=== PATIENT | male | born 1990 | race Caucasian/White ===

== ENCOUNTER 2024-01-05 07:59 | Emergency (ER) | payer OTHER, SELFPAY ==
[2024-01-05 08:02] VITALS: BP 200/120
[2024-01-05 08:19] VITALS: BMI 24.9
--- NOTE | 2024-01-05 08:19 | ED.GENMED ---
History of Present Illness
General
Chief Complaint: Abdominal Symptoms
Source: patient and records
Time Seen by Provider: 01/05/24 08:10
Travel History
Have you had any contact with someone who has COVID-19?: No
Do you have any symptoms of coronavirus? Fever > 100 degrees, chills, cough, shortness of breath, sore throat, loss of taste or smell, muscle aches, or headache?: No
History of Present Illness
History of Present Illness:
33-year-old male with past medical history of poorly controlled hypertension, diabetes, end-stage renal disease (dialysis Friday, Friday, Friday) presenting to the emergency department for evaluation after developing a gradual onset of abdominal
pain/discomfort last night, awoke this morning with worsening sharp pain within the left lower quadrant prompting him to come to the ER for further evaluation. Patient is denying a similar history of symptoms to me in the past. He endorses nausea
and vomiting but without any bowel changes. Patient notes that he does still make small amounts of urine and notes no change in urinary habits today. Patient did take a Tylenol and Motrin earlier today but without any relief of symptoms. No known
sick contacts, recent travel or recent antibiotics. Social history is noted for cigarette use. Of note, patient received a full dialysis session this past Friday but did not get his dialysis yet today.
Past History
Past History
ED Past Medical History: CHF, HTN, IDDM, Renal failure (Dialysis M-W-F) and Other (ESRD, PE, Contipation, ESRD, TR, pulmonary hypertension, congestive heart failure, etc.)
ED Past Surgical History: Appendectomy and Other (Left AV fistula, biliary drain)
Patient has exhibited threatening behavior?: No
PSI?: No
Social History
Tobacco: Smoker
Alcohol: None
Drug: None
Personal: Single
Living: with family
Employment: Other
Family History
Family History: Other
Review of Systems
Review of Systems
All Other Systems: ROS reviewed and negative except as documented in HPI and ROS
Phy Exam
Physical Exam
Physical Exam:
GENERAL: Alert , in no apparent distress But does appear uncomfortable
EYE: clear conjunctiva b/l
HEAD: NCAT
ENT: o/p clr, mmm.
CARDIAC: Borderline tachycardic rate and rhythm, murmur noted on the left sternal border
LUNGS: Clear breath sounds bilaterally, no acute respiratory distress, no wheezes/rales/rhonchi
ABDOMEN: Soft, diffusely tender and grimacing, states pain worse in the left lower quadrant, no r/g, no cvat
NEUROLOGICAL: Alert and oriented
SKIN: Warm and dry, skin intact.
MUSCULOSKELETAL: Bilateral ankle edema is reportedly chronic, well perfused. Left upper extremity dialysis fistula noted
PSYCH: Normal and appropriate interaction.
Scores
Heart Failure Risk
Heart Failure Risk Score: Not Applicable
Heart Score for Chest Pain Patients
STEMI patient?: Not applicable
Withdrawal Assessment of Alcohol
Withdrawal Assessment Completed?: Not applicable
Course
Orders/Labs/Results
Orders:
Orders
01/05/24 08:17
CT Abd/pel (oral only)-DH Only Urgent
Comment:
Reason For Exam: LLQ abd pain, hx of ESRD on dialysis
Urinalysis Reflex To Culture Urgent
Date Specimen was Collected: 01/05/24
Time Specimen was Collected: 08:22
HYDROmorphone [Dilaudid] 0.5 mg IV NOW STA
Iohexol [Omnipaque] See Protocol PO NOW STA
Ondansetron Injectable [Zofran] 4 mg IV NOW STA
01/05/24 08:38
HYDROmorphone [Dilaudid] 0.5 mg .ROUTE .STK-MED ONE
01/05/24 08:43
Alcohol Urgent
Basic Metabolic Panel Urgent
Complete Blood Count/With Diff Urgent
Lactic Acid Q4H
Comment: CANCEL 2nd LACTIC ACID IF 1st LACTIC ACID IS LESS THAN 2
Lipase Urgent
01/05/24 08:51
Add On- LAB Urgent
Tests Added?: alcohol level
01/05/24 10:05
Djkzn-Pigk-Exiwgww Urgent
Potassium Urgent
01/05/24 11:35
HYDROmorphone [Dilaudid] 0.5 mg IV NOW STA
Abnormal Lab Results
01/05/24 01/05/24
08:43 10:05
RBC 2.75 L 10^6/uL
(4.70-6.10)
Hgb 9.1 L g/dL
(13.0-18.0)
Hct 26.7 L %
(39.0-52.0)
MCV 97.1 H fL
(80.0-94.0)
MCH 33.1 H pg
(27.0-31.0)
RDW 16.9 H %
(11.5-14.5)
Abs Immat Gran (auto) 0.1 H 10^3/uL
(0-0.05)
Absolute Lymphs (auto) 1.0 L 10^3/uL
(1.2-3.4)
Immature Gran % 1.3 H %
(0-0.5)
Lymphocytes % 17.4 L %
(20.5-51.1)
Sodium 133 L mmol/L
(135-145)
BUN 55 H mg/dl
(9-20)
Creatinine 6.7 H* mg/dL
(0.7-1.3)
Glucose 320 H mg/dl
(70-99)
Direct Bilirubin 0.6 H mg/dl
(0.0-0.4)
AST 66 H U/L
(17-59)
01/05/24 08:43
03/04/24 10:05
Vital Signs
Initial and Last Documented VS:
Initial Vital Signs
Temp Pulse Resp BP Pulse Ox
99.5 F 104 16 200/120 91
01/05/24 08:02 01/05/24 08:02 01/05/24 08:02 01/05/24 08:02 01/05/24 08:02
Last Documented Vital Signs
Temp Pulse Resp BP Pulse Ox
99.5 F 104 16 201/109 97
01/05/24 08:02 01/05/24 08:02 01/05/24 08:02 01/05/24 11:26 01/05/24 10:50
MDM/Problems Addressed
Differential Diagnosis Includes:
Gastroenteritis, colitis, renal/ureteral colic, given age less concern for diverticulitis/diverticulosis, UTI
MDM/Problems Addressed:
33-year-old male presenting emergency department for evaluation of abdominal pain, nausea and vomiting that started yesterday evening, worse this morning prompting ER visit. I reviewed patient's records and he was seen in this emergency department
multiple times in the summer 2022 for similar related complaints. It was noted at that time that patient did have diffuse enteritis seen on CT images however patient's symptoms were thought to be related to pain medication withdrawal/side effects.
At this time we will check labs. I would like to check CT imaging given the focality of patient's reported symptoms and physical exam findings. Will treat with 1 dose of Dilaudid and Zofran. Low threshold to consider pain seeking behavior given
this has been well-documented on previous charts reassessment following labs.
Chronic conditions affecting care: DM, HTN and Kidney disease
Acute Exacerbation and/or Progression of Chronic Illness: DM, HTN and Kidney disease
*Radiology
Radiology exam reviewed: radiology read reviewed
*Pulse Oximetry
Patient hypoxic: no
*Critical Care Note
Total Time (30-74mins, 75-104mins- exclusive of procedures): Not Applicable
Data Reviewed
Review of Other/Old Records Reveals: Labs, Records and Radiology Studies
Source: patient and records
Comment
Comment:
11:25 a.m.: Patient noting increased pain again. Additional half milligram Dilaudid ordered. Awaiting CT scan result
11:50 AM: Patient's CT scan is overall unchanged from previous scans done summertime in 2022. He was able to speak with his dialysis team who did offer dialysis session today however patient preferred to go tomorrow morning. I do think this is
reasonable given patient's potassium is within normal limits. Continued supportive care at home. Deferring antibiotics as patient has no fever here, no leukocytosis and an otherwise unchanged CT from multiple previous scans done. Aware of return
precautions but otherwise stable for discharge
ED Attending Note
-
Portions of this chart may have been created with voice recognition software.� Occasional wrong word or��sound alike� substitutions may have occurred due to the inherent limitations of voice recognition software.
Discharge Plan
Departure
Patient Disposition: Home (Routine Discharge)
Date of Disposition: 01/05/24
Time of Disposition: 11:47
Patient with high blood pressure during this ER visit?: Yes
Discharge Problem:
Abdominal pain, Hypertension, CKD (chronic kidney disease)
Instructions: Abdominal Pain
Prescriptions:
No Action
furosemide 40 MG tablet
40 mg PO QPM
carvedilol [Coreg] 25 MG tablet
25 mg PO BID
amlodipine 10 MG tablet
10 mg PO DAILY
calcium carbonate [Tums] 200 mg calcium (500 mg) Tablet,Chewable
200 mg PO TIDPRN PRN (Reason: gerd)
metoclopramide HCl [Reglan] 10 mg Tablet
10 mg PO TIDPRN PRN (Reason: nausea)
hydralazine 100 mg Tablet
100 mg PO Q8H
oxcarbazepine 150 mg tablet
150 mg PO HS
trazodone 50 mg Tablet
25 mg PO HS
acetaminophen [Tylenol Extra Strength] 500 mg Tablet
1,000 mg PO BIDPRN PRN (Reason: mild pain)
insulin aspart U-100 [Novolog U-100 Insulin aspart] 100 unit/mL solution
70 unit SC .VIA PUMP
Patient Comments:
01/05/2024, pt. has insulin pump and states to use roughly 70 units a day and replaces his insulin Q72H. Per pt., he replaced his insulin 2 days ago.
Referrals:
Casper Arroyo MD [Family Provider] -
Interventions
Interventions:
*Risk Screen - Suicide Last Done: 01/05/24 08:19
*General Assessment Last Done: 01/05/24 08:19
*Neglect/Abuse Screening Last Done: 01/05/24 08:19
ED- Fall Risk Assessment Last Done: 01/05/24 08:19
*ED COVID-19 Vaccine History Last Done: 01/05/24 08:06
*Nursing Disposition Last Done: 01/05/24 12:07
ZY-Evkwpp-Uieqndluuh Assessment Last Done: 01/05/24 08:19
[2024-01-05] MEDS: ZOFRAN 4 MG IV (08:44)
[2024-01-05] MEDS: OMNIPAQUE 50 ML PO (08:44)
[2024-01-05] MEDS: DILAUDID 0.5 MG IV ×2 (08:45→11:46)
[2024-01-05 08:49] VITALS: BP 197/107
[2024-01-05 09:00] VITALS: BP 188/113
[2024-01-05 09:04] LABS: % Basophils 0.7 % (0-2); % Eosinophils 0.7 % (0-6); % Immature Granulocytes 1.3 % (0-0.5); % Lymphocytes 17.4 % (20.5-51.1); % Monocytes 8.6 % (1.7-9.3); % Neutrophils 71.3 % (42.2-75.2); Absolute Immature Granulocytes 0.1 10^3/uL (0-0.05); Absolute Monocytes 0.5 10^3/uL (0.1-0.6); Absolute Neutrophils 3.9 10^3/uL (1.4-6.5); Hematocrit 26.7 % (39.0-52.0); Hemoglobin 9.1 g/dL (13.0-18.0); Mean Corp Hgb Conc. 34.1 g/dL (33.0-37.0); Mean Corpuscular Hgb 33.1 pg (27.0-31.0); Mean Corpuscular Volume 97.1 fL (80.0-94.0); Mean Platelet Volume 9.5 fL (7.4-10.4); Nucleated Red Blood Cells % 0 % (-); Platelet Count 254 10^3/uL (130-400); Red Blood Cell Count 2.75 10^6/uL (4.70-6.10); Red Cell Dist. Width 16.9 % (11.5-14.5); White Blood Cell Count 5.5 10^3/uL (4.8-10.8)
[2024-01-05 09:18] LABS: Lactic Acid 1.1 mmol/L (0.7-2.0)
[2024-01-05 09:26] LABS: Blood Urea Nitrogen 55 mg/dl (9-20); Calcium 8.6 mg/dl (8.4-10.2); Carbon Dioxide 22 mmol/L (22-30); Chloride 101 mmol/L (98-107); Estimated Creatinine Clearance 15 ml/min; Glucose 320 mg/dl (70-99); Lipase 60 U/L (23-300); Sodium 133 mmol/L (135-145); eGFR 10.46
[2024-01-05 10:00] VITALS: BP 192/109
[2024-01-05 10:25] LABS: ALT (SGPT) 36 U/L (0-50); AST (SGOT) 66 U/L (17-59); Albumin 3.8 g/dl (3.5-5.0); Alkaline Phosphatase 82 U/L (38-126); Direct Bilirubin 0.6 mg/dl (0.0-0.4); Potassium 4.5 mmol/L (3.5-5.1); Total Protein 6.3 g/dl (6.3-8.2)
[2024-01-05 11:26] VITALS: BP 201/109
== END 2024-01-05 12:07 | disposition home or self-care (01) ==
LOC: EMR 07:59
PROVIDERS: Physician Assistant Medical; EMERGENCY PHYSICIAN Student in an Organized Health Care Education/Training Program; FAMILY PHYSICIAN Internal Medicine
DX: R10.9 Unspecified abdominal pain (principal); I13.2 Hypertensive heart and chronic kidney disease with heart failure and with stage 5 chronic kidney disease, or end stage renal disease; E11.22 Type 2 diabetes mellitus with diabetic chronic kidney disease; I50.9 Heart failure, unspecified; N18.6 End stage renal disease; F17.210 Nicotine dependence, cigarettes, uncomplicated; Z99.2 Dependence on renal dialysis
CPT/HCPCS: 99284; 96374; 96375; 96376; 74176; 80048; 80076; 82077; 83605; 83690; 84132; 85025

== ENCOUNTER 2024-01-10 04:32 | Inpatient (IN) | payer OTHER, SELFPAY ==
[2024-01-10] VITALS (36 sets, daily range): BP systolic 99–220; BP diastolic 61–104; BMI 24.5
--- NOTE | 2024-01-10 01:36 | ED.GENMED ---
History of Present Illness
General
Chief Complaint: Chest Pain
Time Seen by Provider: 01/10/24 01:36
History of Present Illness
History of Present Illness:
HPI: Patient came in by ambulance due to chest pain. He states that started about 3 hours ago. It is described as sharp. This feels similar to the time that he was here 6 months ago but thinks that this might be worse. He tried Tylenol and
Motrin at home without improvement.
EXAM:
GENERAL: The patient appears chronically ill and somewhat uncomfortable
HEENT: Moist oral mucosa
CARDIOVASCULAR: No murmurs, normal heart rate and rhythm, No significant chest wall tenderness
PULMONARY: No respiratory distress, breath sounds are somewhat diminished on the right base
ABDOMEN: Soft with no peritoneal signs, no tenderness
NEUROLOGIC: Good strength all extremities, no coordination deficits
PSYCHIATRIC: Appropriate mental status, normal insight and judgement
EXTREMITIES: Nontender, no edema, moves all extremities equally
SKIN: Appears somewhat pale
ED COURSE:
1:45 AM: I initially evaluated patient
NUMBER AND COMPLEXITY OF PROBLEMS ADDRESSED AT THE ENCOUNTER
� Chronic conditions affecting care: High blood pressure, CKD on dialysis, diabetes
� Acute Exacerbation and/or Progression of Chronic Illness: This is an acute problem but is had similar episode in the past
� Differential Diagnosis includes: ACS, noncardiac chest pain, pneumonia, pneumothorax, pericarditis
AMOUNT AND/OR COMPLEXITY OF DATA TO BE REVIEWED AND ANALYZED
� I performed an independent evaluation of and my interpretation is:
EKG: Sinus 79, QTc is 483 ms, nonspecific ST abnormality
CT:
X-rays: Chest x-ray shows worsening right pleural effusion
Laboratory Studies: Marked blood sugar elevation at over 700. Bicarb was normal, pH was 7.35 and beta hydroxybutyrate was only slightly elevated
Other:
� Review of other/old records: The patient was seen here for chest pain nearly 6 months ago records indicate that the patient signed out AGAINST MEDICAL ADVICE from [facility] before the ED visit here. The patient was again here a
few days ago. I reviewed the CT report from 5 days ago.
� Clinical information was obtained by an independent historian: EMS
� Prescriptions/Medications Considered but not given:
� Further testing considered but not performed:
RISK OF COMPLICATIONS AND/OR MORBIDITY OR MORTALITY OF PATIENT MANAGEMENT
� Social determinants of health affecting care: Lives at home, on dialysis
� Discussion with other providers: Dr. Salazar for admission at about 3:55 AM
� Escalation of care including admission/observation vs risk of discharge considered: The patient presents with chest discomfort described as stabbing that started about 3 hours ago. He is also found to have an initial blood
sugar over 600. Review of records suggests concerns for drug-seeking behavior in the past and the patient requested narcotic upon initial evaluation stating that the only thing that helps his pain. I did give the patient a one-time dose of
Dilaudid as I am very concerned about the elevated glucose over 600 and better hope of him staying for more of an evaluation. Blood sugar was markedly elevated at over 700 but no clear sign of DKA. He was given insulin by IV but repeat blood sugar
was still reading critical high. The patient declined IV fluids citing concerns for being volume overloaded and would not but dialyze until Friday.
Past History
Past History
ED Past Medical History: CHF, HTN, IDDM, Renal failure (Dialysis M-W-F) and Other (ESRD, PE, Contipation, ESRD, TR, pulmonary hypertension, congestive heart failure, etc.)
ED Past Surgical History: Appendectomy and Other (Left AV fistula, biliary drain)
Patient has exhibited threatening behavior?: No
PSI?: No
Social History
Tobacco: Smoker
Alcohol: None
Drug: None
Personal: Single
Living: with family
Employment: Other
Family History
Family History: Other
Phy Exam
Physical Exam
Physical Exam:
See HPI
Scores
Heart Score for Chest Pain Patients
STEMI patient?: Not applicable
Course
Orders/Labs/Results
Orders:
Orders
01/10/24 01:34
ECG [Electrocardiogram (*1)] Urgent
Reason for Study: Chest Pain
01/10/24 01:35
EKG- Treatment ONCE
01/10/24 01:41
Cardiac Monitoring- Treatment ONCE
IV Insert/Care/Rem.- Treatment PRN
01/10/24 01:48
0.9% Sodium Chloride 500 ml [Nss] 500 ml IV BOLUS
01/10/24 01:56
Acetone [B-Hydroxybutyrate] Urgent
Complete Blood Count/With Diff Urgent
Comprehensive Metabolic Panel Urgent
Troponin I Urgent
Venous Blood Gas Urgent
%Oxygen/Room Air: 97
01/10/24 02:09
HYDROmorphone [Dilaudid] 1 mg IV NOW STA
01/10/24 02:46
Insulin Human Regular [Novolin R] 10 units IV NOW STA
01/10/24 02:48
CR Chest - 2 Views Urgent
Comment:
Reason For Exam: chest pain
01/10/24 04:05
Glucose Urgent
01/10/24 04:18
Admit/Transfer Patient As Directed
Co-Sign Provider:
Level of Care: Inpatient admission
Assign to:: ICU
Physician / Group: Martin
Diagnosis: Hyperglycemia, Hypervolemia / ESRD
Reason for Hospitalization: Hyperglycemia, Hypervolemia / ESRD
Expected length of stay greater than two midnights?: Yes
ELOS- Estimated Length of Stay in days: 3
I certify the patient meets the requirements for IP care: Yes
01/10/24 04:20
Code Status As Directed
Resuscitation Status: Full Code
01/10/24 04:27
Insulin Human Regular [Novolin R] See Protocol IV NOW STA
Pharmacy Request to Place See Dose Instructions PO NOW STA
01/10/24 04:37
Acetaminophen [Tylenol] 650 mg PO Q4HPRN PRN
Morphine Sulfate 2 mg IV Q4HPRN PRN
Reg Insulin 100 Units/100 ml [Novolin R Insulin Infusion] 100 units in 100 ml IV PER PROTOCOL
01/10/24 04:37
Critical Care Glycemic Protocol for IV Regular Insulin As Directed
01/10/24 Breakfast
1800 calorie (15 carb) Diabetic
Fluid Restriction: 1440 mL/day (48 oz)
Diabetic Diet: Potassium, 2 Gram
Sodium, 2 Gram
Abnormal Lab Results
01/10/24 01/10/24 01/10/24
01:35 01:56 03:51
WBC 4.1 L 10^3/uL
(4.8-10.8)
RBC 3.17 L 10^6/uL
(4.70-6.10)
Hgb 10.5 L g/dL
(13.0-18.0)
Hct 31.4 L %
(39.0-52.0)
MCV 99.1 H fL
(80.0-94.0)
MCH 33.1 H pg
(27.0-31.0)
RDW 16.9 H %
(11.5-14.5)
Absolute Lymphs (auto) 0.7 L 10^3/uL
(1.2-3.4)
Lymphocytes % 18.0 L %
(20.5-51.1)
Sodium 130 L mmol/L
(135-145)
Potassium 5.3 H mmol/L
(3.5-5.1)
Chloride 92 L mmol/L
(98-107)
BUN 29 H mg/dl
(9-20)
Creatinine 3.9 H mg/dL
(0.7-1.3)
Glucose 733 H* mg/dl
(70-99)
AST 160 H U/L
(17-59)
ALT 75 H U/L
(0-50)
Alkaline Phosphatase 211 H U/L
(38-126)
B-Hydroxybutyrate 0.95 H mmol/L
(0.02-0.27)
POC Glucose > 600 H* mg/dl > 600 H* mg/dl
(70-99) (70-99)
01/10/24
04:05
WBC
RBC
Hgb
Hct
MCV
MCH
RDW
Absolute Lymphs (auto)
Lymphocytes %
Sodium
Potassium
Chloride
BUN
Creatinine
Glucose 623 H* mg/dl
(70-99)
AST
ALT
Alkaline Phosphatase
B-Hydroxybutyrate
POC Glucose
01/10/24 01:56
01/10/24 04:05
Vital Signs
Initial and Last Documented VS:
Initial Vital Signs
Temp Pulse Resp BP Pulse Ox
97.8 F 79 18 162/95 95
01/10/24 01:36 01/10/24 01:36 01/10/24 01:36 01/10/24 01:36 01/10/24 01:36
Last Documented Vital Signs
Temp Pulse Resp BP Pulse Ox
97.8 F 87 21 220/101 99
01/10/24 01:36 01/10/24 04:17 01/10/24 04:17 01/10/24 04:17 01/10/24 04:17
*Critical Care Note
Total Time (30-74mins, 75-104mins- exclusive of procedures): Not Applicable
ED Attending Note
-
Portions of this chart may have been created with voice recognition software.� Occasional wrong word or��sound alike� substitutions may have occurred due to the inherent limitations of voice recognition software.
Discharge Plan
Departure
Patient Disposition: Admit
Date of Disposition: 01/10/24
Time of Disposition: 03:52
Presentation/result/management discussed w/ accepting MD/DO: Hospitalist
Discharge Problem:
Acute hyperglycemia
Interventions
Interventions:
*Risk Screen - Suicide Last Done: 01/10/24 01:36
*General Assessment Last Done: 01/10/24 02:00
*Neglect/Abuse Screening Last Done: 01/10/24 01:36
ED- Fall Risk Assessment Last Done: 01/10/24 02:00
*ED COVID-19 Vaccine History Last Done: 01/10/24 01:36
ED- Cardiac Assessment Last Done: 01/10/24 02:00
[2024-01-10 01:37] LABS: Glucose - Point of Care > 600 mg/dl (70-99)
[2024-01-10 02:09] LABS: % Basophils 1.2 % (0-2); % Eosinophils 0.5 % (0-6); % Immature Granulocytes 0.5 % (0-0.5); % Monocytes 7.6 % (1.7-9.3); % Neutrophils 72.2 % (42.2-75.2); Absolute Basophils 0.1 10^3/uL (0-0.2); Absolute Lymphocytes 0.7 10^3/uL (1.2-3.4); Absolute Monocytes 0.3 10^3/uL (0.1-0.6); Hematocrit 31.4 % (39.0-52.0); Hemoglobin 10.5 g/dL (13.0-18.0); Mean Corp Hgb Conc. 33.4 g/dL (33.0-37.0); Mean Corpuscular Hgb 33.1 pg (27.0-31.0); Mean Corpuscular Volume 99.1 fL (80.0-94.0); Mean Platelet Volume 9.8 fL (7.4-10.4); Nucleated Red Blood Cells % 0 % (-); Platelet Count 187 10^3/uL (130-400); Red Blood Cell Count 3.17 10^6/uL (4.70-6.10); Red Cell Dist. Width 16.9 % (11.5-14.5); White Blood Cell Count 4.1 10^3/uL (4.8-10.8)
[2024-01-10 02:18] LABS: Venous Blood Gas B.E. 0 mmol/L (-4 to +4); Venous Blood Gas HCO3 25.9 mmol/L (22-27); Venous Blood Gas O2 Sat % 78.7 %; Venous Blood Gas pCO2 47 mmHg (35-48); Venous Blood Gas pH 7.35 (7.32-7.43); Venous Blood Gas pO2 49 mmHg (30-50)
[2024-01-10 02:24] LABS: ALT (SGPT) 75 U/L (0-50); AST (SGOT) 160 U/L (17-59); Albumin 4.3 g/dl (3.5-5.0); Alkaline Phosphatase 211 U/L (38-126); Blood Urea Nitrogen 29 mg/dl (9-20); Calcium 8.5 mg/dl (8.4-10.2); Carbon Dioxide 25 mmol/L (22-30); Chloride 92 mmol/L (98-107); Potassium 5.3 mmol/L (3.5-5.1); Sodium 130 mmol/L (135-145); Total Bilirubin 1.2 mg/dl (0.2-1.3); Total Protein 6.9 g/dl (6.3-8.2); eGFR 20.03
[2024-01-10] MEDS: DILAUDID 1 MG IV (02:29)
[2024-01-10 02:35] LABS: Troponin I 0.021 ng/ml
[2024-01-10 02:37] LABS: B-Hydroxybutyrate 0.95 mmol/L (0.02-0.27); Glucose 733 mg/dl (70-99)
[2024-01-10] MEDS: NOVOLIN R 10 UNITS IV ×2 (03:06→05:02)
[2024-01-10 03:54] LABS: Glucose - Point of Care > 600 mg/dl (70-99)
--- NOTE | 2024-01-10 04:28 | HPS.HSE ---
Family Physician
-
Family Physician: Casper Arroyo
Chief Complaint
-
Chest Pain
History of Present Illness
Patient is a 33y M with PMH significant for ESRD on HD and DM-I who presents to ED complaining of chest pain and SOB. Patient states that he woke this evening around 11:30 PM with left-sided chest pain and SOB. Patient states that he has had a
recent cough but no fevers or chills. He presented to the ED for evaluation of his chest pain. He was here in the ED on 01/04 with complaints of abdominal pain and has had multiple prior visits at this and other institutions for pain issues.
Patient notes that his sugar has been running a little high at home recently - and reports values of 200-300. His glucose in the ED this evening is 733.
Patient states that his insulin pump is in place and has been functioning normally.
Patient notes that he has not missed any dialysis appointments lately. His last session was Friday / today.
He states that he is not a his dry weight despite regular HD and notes that he has had trouble maintaining his dry weight.
Patient is advised that he will be admitted primarily to get his DM under better control.
He is requesting more pain medications for his complaints of chest pain. He notes that he already tried Tylenol and ibuprofen without relief. He states that nitro gives him a bad headache and he refuses to take it.
Medical History
Past Medical History
Past Medical History: Reports Other
Additional Past Medical History:
DM-I (Dx age 13)
ESRD on HD
Poor Compliance
History of PE
Hypertension
Gastroparesis
Anxiety / Depression
Past Surgical History: Reports Other
Additional Past Surgical History:
LUE AVF
Appendectomy
PD Catheter placed / removed
Social History
Tobacco: Smoker (Current every day smoker. 1/2 ppd for total of 20 pack years.)
Alcohol: Occasional
Drug: None
Family History
Family History: Asthma
Allergies / Home Medications
Allergies reflects when Allergies were last updated in [facility].
Home Medications with original date entered in [facility]
Allergy/Medication List:
Allergies
Allergy/AdvReac Type Severity Reaction Status Date / Time
shellfish derived Allergy Hives Verified 01/10/24 01:35
Home Medications
amlodipine 10 mg tablet 10 mg PO DAILY Blood pressure 04/22/21
carvedilol 25 mg tablet (Coreg) 25 mg PO BID Blood pressure 04/22/21
furosemide 40 mg tablet 40 mg PO QPM Fluid retention/Swelling 04/22/21
calcium carbonate 200 mg calcium (500 mg) chewable tablet (Tums) 200 mg PO TIDPRN PRN gerd 04/07/23
metoclopramide HCl 10 mg tablet (Reglan) 10 mg PO TIDPRN PRN nausea 04/07/23
hydralazine 100 mg tablet 100 mg PO Q8H Blood Pressure 05/22/23
oxcarbazepine 150 mg tablet 150 mg PO HS Mental Health/Anxiety 07/24/23
acetaminophen 500 mg tablet (Tylenol Extra Strength) 1,000 mg PO BIDPRN PRN mild pain 01/05/24
insulin aspart U-100 100 unit/mL subcutaneous solution (Novolog U-100 Insulin aspart) 70 unit SC .VIA PUMP 01/05/24
trazodone 50 mg tablet 25 mg PO HS 01/05/24
Review of Systems
-
History Source: Patient
A 12 point ROS was completed and negative except as noted: Yes
Constitutional: Reports Fatigue; Denies Fever or Chills
EENT: Denies Sore Throat
Respiratory: Reports Cough and Trouble Breathing
Cardiac: Reports Chest Pain; Denies Diaphoresis or Palpitations
Abdomen/GI: Reports Abdominal Pain and Nausea; Denies Vomiting, Diarrhea, Constipated or Bloody Stools
Musculoskeletal: Reports Edema; Denies Joint Pain
Neurological: Reports Headache; Denies Dizzy
Psych: Denies Depression or Anxiety
Physical Exam
Vital Signs
Vital Signs
Temp Pulse Resp BP Pulse Ox
97.8 F 87 21 220/101 99
01/10/24 01:36 01/10/24 04:17 01/10/24 04:17 01/10/24 04:17 01/10/24 04:17
Physical Exam
General: Other (33y M in no evident distress. Somewhat flat affect.)
HEENT: Moist mucous membranes and PERRLA
Respiratory: Other (Decreased BS and dullness to percussion at the R base. Few scattered rales.)
Cardiac: S1/S2, Regular Rhythm and Other (Systolic and Diastolic heart murmurs appreciated.)
GI: Non Tender and Normal Bowel Sounds
Musculoskeletal: No Clubbing, No Cyanosis and Other (2+ pitting edema x 4 extremities.)
Neuro: AO x 3
Hematologic/Lymphatic: Other (LUE AVF with good thrill / bruit.)
Laboratory Results
-
01/10/24 01:56
Laboratory Results
Total Bilirubin 1.2 mg/dl (0.2-1.3) 01/10/24 01:56
AST 160 U/L (17-59) H 01/10/24 01:56
ALT 75 U/L (0-50) H 01/10/24 01:56
Alkaline Phosphatase 211 U/L (38-126) H 01/10/24 01:56
Troponin I 0.021 ng/ml 01/10/24 01:56
Impression/Plan
-
A/P: Patient is a 33y M with PMH significant for ESRD on HD and DM-I who presents to ED complaining of chest pain and SOB.
DM-I with Marked Hyperglycemia
- Admit for further evaluation and treatment.
- Anion gap near normal at 13.
- Unable to give significant volume for hyperglycemia due to ESRD and pre-existing hypervolemia.
- Therefore, will use IV insulin infusion to achieve glucose control.
- Transition back to usual subcut pump once glucose is significantly improved.
- DM RAG INSPECTOR evaluation for pump recommendations / adjustments as needed.
- Update A1C.
- Follow frequent bedside glucose values and adjust treatment as necessary.
Hypervolemia / Anasarca
Right Pleural Effusion
ESRD on HD
- Patient with evident volume overload on exam and with worsening R pleural effusion.
- Fluid restriction. Avoid administering excess volume as noted above.
- Nephrology evaluation for HD / UF needs during hospital stay.
- Patient likely would benefit from several consecutive sessions to improve his volume status.
- Could consider R thoracentesis if any worsening dyspnea / distress - but this is almost certainly related to ESRD / hypervolemia.
- Continue current Lasix dosing.
Chest Pain
- Doubt cardiac etiology.
- EKG without evidence for ischemia.
- Troponin is at usual baseline for this chronic ESRD patient.
- Monitor on telemetry and follow trop x 3 sets total.
- Would endeavor to avoid narcotic pain medication in this gentleman (see prior documentation).
Severe Pulmonary Hypertension
Severe TR
- Significant murmur noted on exam. Prior Echo with normal EF and pulm HTN / TR as noted above.
- Prior eval for VTE / PE has been unremarkable.
- Last Echo was 06/2023.
- Consider updating echo +/- Cardiology evaluation if symptoms do not improve with volume management / UF.
Multidrug Resistant Hypertension
- Suspect this is largely mediated by hypervolemia.
- Continue usual outpatient med regimen + IV labetalol for very high pressures.
- Nephrology evaluation as noted above for HD / UF needs.
- Adjust med regimen as needed for improved control.
Anemia of Chronic Disease
- Stable. Hgb is at / near known baseline.
- Check iron studies.
- Follow for any changes in H&H.
- Patient denies any evident blood loss, etc.
Anxiety / Depression
- Stable. Continue current psychotropic medications.
- Follow for changes in mood.
DVT Prophylaxis: Subcut Heparin
Code Status: Full
[2024-01-10 04:30] LABS: Glucose 623 mg/dl (70-99)
[2024-01-10] MEDS: MORPHINE SULFATE 2 MG IV ×4 (05:01→17:19)
[2024-01-10 06:00] LABS: INR 1.21; PT 15.1 Sec (11.4-14.6)
--- NOTE | 2024-01-10 06:44 | PTCARENOTE ---
pt admitted to ICU. VSS, AAOx3, pleasant. NSR in the monitor. +1 BLLE edema. + Lt fistula. Lung sound are diminished at the bases, SaO2 95% 2L. Dyspneic w/ exertion. occasional nonproductive dry cough. Abd Round. Insulin pump is in place. Oliguric.
Pt appear comfortable in bed and call luevano within reach.
[2024-01-10 06:45] LABS: Glucose 265 mg/dl (70-99); Iron 155 ug/dl (49-181)
[2024-01-10 06:54] LABS: Troponin I 0.018 ng/ml
[2024-01-10 07:12] LABS: Percent Saturation 74 % (20-50); Total Iron Binding Capacity 207 ug/dl (261-462)
[2024-01-10 07:17] LABS: Glucose - Point of Care 161 mg/dl (70-99)
--- NOTE | 2024-01-10 07:35 | CON.INTV ---
Consultation
Consultation Request
Date/Time Consultation Requested: 01/10/24
Date/Time Consultation Performed: 01/10/24
Medical History
-
History of Present Illness:
Patient is a 33 year old M with PMH significant for ESRD on HD and DM-I who presents to ED complaining of chest pain and SOB.� He presents to ED on multiple prior visits for complaints of abdominal pain, and has presented at other institutions
for pain issues. Patient notes that his sugar has been running a little high at home recently - and reports values of 200-300.� His glucose in the ED this evening is 733. Patient states that his insulin pump is in place but may have had an issue
with it delivering insulin, he is not sure. This has happened on prior occasions and he does not know how to use SQ insulin. Given 10 units IV insulin x 2 and IVFs with improvement of his BSs.
Patient notes that he has not missed any dialysis appointments lately.� His last session was Friday01/09/24.
Admitted to ICU for potential insulin gtt use.
Past Medical History
Past Medical History: Other (see list below)
Past Surgical History: Other
Social History
Tobacco: Smoker
Alcohol: None
Drug: None
Family History
Family History: Reviewed & Not Pertinent
Allergies / Home Medications
Allergies
Allergy/AdvReac Type Severity Reaction Status Date / Time
shellfish derived Allergy Hives Verified 01/10/24 01:35
Home Medications
Medication Instructions Recorded Confirmed Last Taken Type
amlodipine 10 mg tablet 10 mg PO DAILY Blood pressure 04/22/21 01/10/24 01/04/24 History
carvedilol 25 mg tablet (Coreg) 25 mg PO BID Blood pressure 04/22/21 01/10/24 01/04/24 History
furosemide 40 mg tablet 40 mg PO QPM Fluid 04/22/21 01/10/24 01/04/24 History
retention/Swelling
calcium carbonate 200 mg calcium 200 mg PO TIDPRN PRN gerd 04/07/23 01/10/24 Unknown History
(500 mg) chewable tablet (Tums)
metoclopramide HCl 10 mg tablet 10 mg PO TIDPRN PRN nausea 04/07/23 01/10/24 01/04/24 History
(Reglan)
hydralazine 100 mg tablet 100 mg PO Q8H Blood Pressure 05/22/23 01/10/24 01/04/24 History
oxcarbazepine 150 mg tablet 150 mg PO HS Mental Health/Anxiety 07/24/23 01/10/24 01/04/24 History
acetaminophen 500 mg tablet 1,000 mg PO BIDPRN PRN mild pain 01/05/24 01/10/24 01/04/24 History
(Tylenol Extra Strength)
insulin aspart U-100 100 unit/mL 70 unit SC .VIA PUMP 01/05/24 01/10/24 01/05/24 History
subcutaneous solution (Novolog
U-100 Insulin aspart)
trazodone 50 mg tablet 25 mg PO HS 01/05/24 01/10/24 01/04/24 History
Review of Systems
-
History Source: Patient
All other systems: Negative unless noted
Vitals / Labs / Diagnostic Testing
Vital Signs
Temp Pulse Resp BP Pulse Ox
97.8 F 88 15 175/91 95
01/10/24 01:36 01/10/24 06:30 01/10/24 06:30 01/10/24 06:00 01/10/24 06:48
Lab Data
01/10/24 01:56
01/10/24 06:05
Laboratory Results
01/10/24
05:21
PT 15.1 H
INR 1.21
Diagnostic Testing:
Physical Exam
-
HEENT: Normocephalic, Anicteric and Moist Mucous Membranes
Cardiovascular: S1/S2 and Regular Rhythm
Respiratory: Clear and Non-Labored Respirations
GI: Soft, Non Distended and Non Tender
Neurology: Awake, Alert, Oriented, AO x 3 and No Motor Deficits
Skin: Warm, Dry and Good Color
General: Comfortable and Other (NAD)
Assessment
-
Patient is a 33 year old M with PMH significant for ESRD on HD and DM-I who presents to ED complaining of chest pain and SOB.� He presents to ED on multiple prior visits for complaints of abdominal pain, and has presented at other institutions
for pain issues. His glucose in the ED this evening is 733. Patient states that his insulin pump is in place but may have had an issue with it delivering insulin, he is not sure. Given 10 units IV insulin x 2 and IVFs with improvement of his BSs.
Admitted to ICU for potential insulin gtt use.
Hyperglycemia, likely HHNK
Hyponatremia
Hyperkalemia
Conditions present prior to admission:
Chronic respiratory failure
On home O2 2L for last 2-3 m, given at [facility], unknown reason, does not know rec schedule of O2 use
Chronically elevated BNP since at least April 2021
R pleural effusion on abd CT 06-27-23, moderate, dependent, with associated compressive atelectasis at posterior RLL
Reportedly R thoracentesis at [facility] 2 wks [employer] in Jun 2023, 'not infected', does not know more information
Ascites
IDDM, dx at age 13, with microvascular complications (retinopathy, nephropathy, neuropathy), multiple small wounds on arms and legs(*), gastroparesis.
On insulin pump
ESRD on HD MWF (LUE AVF)
Past PD since late 2019 till changed to HD
Peritoneal fluid cx 04-22-21 (apparently from PD catheter as there is no documentation of paracentesis at [facility]): G stain/cx negative, PMN 8.7% of 69 wbc
Reported h/o HF while adm to [facility] 2 y [employer] for complications of DM
HTN
Appendectomy
Chronic anemia
Reported history of PE 3 years ago, treated 6m OAC
Chronic abd pain
Constipation
Anxiety/Depression
Narcotic seeking behavior
Denies illicit drug use (*cannot rule out some of skin lesions could be track jefferson)
R eye legally blind (DM retinopathy)
Smoker: 0.5 ppd since age 16
Plan
HHNK, admitting BS elevated, no AG
Given IV insulin 10 units x 2 and IVFs, resolved
No further need for insulin gtt
Can start diet
Consult diabetic nurse for insulin recommendations
Can restart diet once able to bridge
H/o poorly controlled diabetes, hopeful transition to home meds
Admits triggers include malfunctioning pump, he does not know how to rely on SQ insulin in case of failure
Diet transition following DKA protocol
GI ppx
Hemodynamically stable, not requiring pressors.
HTN history, resume meds
ECHO in past reviewed, RV overload/PH noted
CXR clear, monitor dry weight
Oxygen needs: Stable on RA
No prior h/o pulmonary disease, smoking hx includes 1/2 PPD for 20 years
Smoking cessation, NRT
Prior imaging reviewed
ESRD history, renal consult
HD per team
Follow dry weight
No signs/symptoms suspicious for infectious etiology at this time.
Will observe off antibiotics for now.
Follow fever trend, WBC count.
DVT ppx SCDs
Can transfer to floors, stop insulin protocol
We will sign off upon transfer
Diagnostic Data
Chest X-Ray:
CXR 07-14-23 c/w 05-16-23: chronic elevation R diaphragm, increased prominence of R>>L hilar vessels, chronic pulm vasc congestion, blurred R diaphragm/effusion but no clear cut infiltrate
CXR 05-16-23 (PA/lat) c/w 04-07-23 (portable), no other films available for comparison. Prominent R hilar vessels, mild cephalization of vessels, moderately elevated R hemidiaphragm, lateral with R posterior PF. Initial film with moderate pulm vasc
congestion and suspected R basilar infiltrate vs atelectasis
CT AP 01/05/24- 1). There is small moderate bowel wall thickening, most prominent in the left abdomen where there is hazy ground glass inflammatory change in the adjacent fat consistent with small bowel enteritis.
2). There is a small amount of ascites in the pelvis
3). There is cholelithiasis
4). There is moderate right pleural effusion with associated compressive atelectasis at the right lung base.
CT Scan: CTA 07/14/23- IMPRESSION:
1. No CTA evidence for an acute pulmonary thromboembolism.
2. Moderate right pleural effusion with adjacent right lower lobe compressive atelectasis. Mild left lower lobe atelectasis.
Echo:
TTE 06-30-23 (no baseline available) with flattened septum in diastole ('D'-shaped left ventricle) consistent with RV volume overload, enlarged RV size, severe TR, ePASP 60-65 mmHg and RA 3 mmHg
Signed AMA before UDS, ROSE MARY doppler and chest CTA
PFT's:
Reports and relevant images were personally reviewed.
-----
Critical Care time 50 mins -- The patient is admitted for acute critical illness for the treatment of vital organ failure and/or prevention of further life-threatening conditions. Total care includes time spent in review of history, physical exam,
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
[2024-01-10 07:46] LABS: Glucose - Point of Care 141 mg/dl (70-99)
[2024-01-10 08:22] LABS: Glucose - Point of Care 92 mg/dl (70-99)
--- NOTE | 2024-01-10 08:26 | W.PN.UPDATE ---
Update Note
Progress Note Update
Admitted early hours of this morning by Dr. Salazar.
Admitted with nonspecific chest pain and shortness of breath and significant hyperglycemia without acidosis or elevated anion gap.
He was put on insulin drip currently improved blood sugars to 90s. No nausea vomiting. Tolerating diet. We will stop the IV insulin drip and resume his insulin pump.
Patient states his rate is 0.5 units/h continuous for 24 hours and uses boluses with meals.
Still feels short of breath. His baseline weight is 61 kg currently 70 kg. He did finish his hemodialysis yesterday and was 66 kg apparently. Still feeling short of breath and thinks dialysis session before his regular 1 on Friday will be
helpful. chest x-ray evident of right pleural effusion which seems to be little more prominent than previous chest x-ray. He has a chronic right pleural effusion. Nephrology consulted.
At rest not hypoxic nor in any respiratory distress.
Tx to tele
TONY RN
[2024-01-10] MEDS: APRESOLINE 100 MG PO ×2 (08:44→17:18)
[2024-01-10] MEDS: HEPARIN 5000 UNITS SC (08:44)
[2024-01-10] MEDS: NORVASC 10 MG PO (08:44)
[2024-01-10] MEDS: COREG 25 MG PO (08:45)
[2024-01-10 09:15] LABS: Glucose - Point of Care 169 mg/dl (70-99)
[2024-01-10 09:39] LABS: Glycohemoglobin (HgbA1c) 11.5 % (4.0-5.6)
[2024-01-10] MEDS: LANTUS 0.119999999999999996 UNITS SC (09:50)
[2024-01-10] MEDS: NOVOLOG FLEXPEN 3 UNITS SC (09:51)
--- NOTE | 2024-01-10 09:55 | PTCARENOTE ---
0700 patient received in bed. pt on his own insulin pump at 0.5 units /hr and on his own [employer] glucometer continues monitoring, per patient last time changed one week ago. per hospital's glucometer At 07:20 141; At 0800 Blood sugar 92. patient
denies chest pain denies nausea. order breakfast willing to eat. Placed insulin pump on hold.
Breakfast intact 100% . patient states that his insulin pump is empty. does not know when someone can bring supply to him from home, pt's mom called , she states that she is unable to bring pt's insuli supply and can try to bring sometimes today.
Dr Tijerina notified . at 0900 blood sugar 169; per new order Lantus 12 units and Novolog 3 units adm. patient c/o of chest pain 8/10 pain scale level . pt requested morphine for pain .
--- NOTE | 2024-01-10 12:09 | PTCARENOTE ---
per patient's own glucometer BS 70. per hospital accucheck 114. Troponin and ptt send results pending
--- NOTE | 2024-01-10 12:14 | W.CON.NEPH ---
Consultation
-
Date/Time Consultation Requested: 01/10/24 6:02AM
Date/Time Consultation Performed: 01/10/24 12:18PM
Requesting Provider: Bradley Salazar
Performing Provider: Herminia Interiano
Reason for Consultation: ESRD on HD
Medical History
-
Chief Complaint: ESRD on HD
History of Present Illness:
Mr. Soilz is a 33 YOM with PMH of ESRD on HD (MWF at [facility]), HTN (on multiple medications), T1DM (on insulin pump c/b neuropathy, nephropathy), hyperphos on binders, multiple hospital presentations for drug seeking behavior who
presents to the ER for chest pain. He had left sided chest pain which has now resolved. His cardiac workup was benign. He was noted to have very elevated blood sugars and the patient was admitted for blood sugar management.
Regarding his dialysis, patient last received dialysis on Friday but stopped the treatment 30 minutes early. He is significantly above his EDW of 61kg. States that he feels very volume overloaded. Has been drinking lots of fluids due to his poor
glycemic control.
Past Medical History
1.� History of ESRD on dialysis Friday, Friday, Friday.
2.� Prior peritoneal dialysis since catheter removed.
3.� Diabetes mellitus with microvascular complications,
� � nephropathy, retinopathy and neuropathy. On insulin pump.
4.� History of DVT and PE, not on anticoagulation.
5.� Hypertension on multidrug regimen.
6.� Chronic fluid overload.
7.� GERD.
8.� History of pericardial effusion.
9.� Long-standing active smoker.
10. Anemia of CKD.
11. Hyperparathyroidism.
12. Persistent hyperphosphatemia.
13. Anxiety, depression.
14. Prior narcotic-seeking behavior.
15. 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
16. Medication noncompliance.
17. Severe TR and severe pulmonary hypertension.
Past Surgical History: Other (LUE AVF)
Social History
Tobacco: Smoker
Alcohol: Occasional
Drug: None
Personal: Single
Family History
Family History: Not Pertinent
Allergies / Home Medications
Allergy/AdvReac Type Severity Reaction Status Date / Time
shellfish derived Allergy Hives Verified 01/10/24 01:35
Medication Instructions Recorded Confirmed Type
amlodipine 10 mg tablet 10 mg PO DAILY Blood pressure 04/22/21 01/10/24 History
carvedilol 25 mg tablet (Coreg) 25 mg PO BID Blood pressure 04/22/21 01/10/24 History
furosemide 40 mg tablet 40 mg PO QPM Fluid 04/22/21 01/10/24 History
retention/Swelling
calcium carbonate 200 mg calcium 200 mg PO TIDPRN PRN gerd 04/07/23 01/10/24 History
(500 mg) chewable tablet (Tums)
metoclopramide HCl 10 mg tablet 10 mg PO TIDPRN PRN nausea 04/07/23 01/10/24 History
(Reglan)
hydralazine 100 mg tablet 100 mg PO Q8H Blood Pressure 05/22/23 01/10/24 History
oxcarbazepine 150 mg tablet 150 mg PO HS Mental Health/Anxiety 07/24/23 01/10/24 History
acetaminophen 500 mg tablet 1,000 mg PO BIDPRN PRN mild pain 01/05/24 01/10/24 History
(Tylenol Extra Strength)
insulin aspart U-100 100 unit/mL 70 unit SC .VIA PUMP 01/05/24 01/10/24 History
subcutaneous solution (Novolog
U-100 Insulin aspart)
trazodone 50 mg tablet 25 mg PO HS 01/05/24 01/10/24 History
Review of Systems
-
History Source: Patient
All other systems: Negative unless noted
Constitutional: Weight Gain and Fatigue
Cardiac: Chest Pain
Abdomen/GI: Abdominal Pain and Nausea
Physical Exam
Vital Signs
Vital Signs
Temp Pulse Resp BP Pulse Ox
98.3 F 82 15 117/80 95
01/10/24 07:53 01/10/24 08:45 01/10/24 06:30 01/10/24 08:45 01/10/24 06:48
Lab Results
WBC 4.1 10^3/uL (4.8-10.8) L 01/10/24 01:56
RBC 3.17 10^6/uL (4.70-6.10) L 01/10/24 01:56
Hgb 10.5 g/dL (13.0-18.0) L 01/10/24 01:56
Hct 31.4 % (39.0-52.0) L 01/10/24 01:56
Plt Count 187 10^3/uL (130-400) D 01/10/24 01:56
Sodium 130 mmol/L (135-145) L 01/10/24 01:56
Potassium 5.3 mmol/L (3.5-5.1) H 01/10/24 01:56
Chloride 92 mmol/L (98-107) L 01/10/24 01:56
Carbon Dioxide 25 mmol/L (22-30) 01/10/24 01:56
BUN 29 mg/dl (9-20) H 01/10/24 01:56
Creatinine 3.9 mg/dL (0.7-1.3) H 01/10/24 01:56
eGFR 20.03 01/10/24 01:56
Glucose 265 mg/dl (70-99) H 01/10/24 06:05
Calcium 8.5 mg/dl (8.4-10.2) 01/10/24 01:56
Albumin 4.3 g/dl (3.5-5.0) 01/10/24 01:56
Physical Exam
General: AOx3 and No Distress
HEENT: PERRL, EOMI, Anicteric, Conjunctivae Clear and Hearing Normal
Respiratory: Crackels
Cardiac: S1/S2 and Murmur
Breast: N/A
Abdomen: Soft, Nontender and Nondistended
Rectal: Deferred by Provider
Genito-urinary: No Costovertebral Tender
Musculoskeletal: Edema
Skin: No Rash, Warm and Dry
Neuro: Nonfocal/Grossly Intact
Psych: Mood/afflect pleasant, Insight/judgement good and Appropriate
Assessment/Plan
-
Assessment:
ESRD ~3 years (PD-->HD), MWF , [facility] unit MWF in [place]
Hyperphosphatemia
History of DVT and pulmonary embolus
Hypertension, multidrug and uncontrolled
Preserved LV function
Chronic fluid overload
Diabetes mellitus multiple microvascular complications
Severe pulmonary hypertension
Severe TR
Anemia in part CKD related
h/o right pleural effusion
Left upper arm AV fistula
History of peritoneal dialysis status post PD catheter removal
History pericardial effusion
Active smoker
Plan:
HD today with 3L UF as able
Patient would like to be discharged afterwards
Data Reviewed
-
Radiology: Image Personally Visualized and interpreted (vascular congestion noted)
Labs: Labs Reviewed by me and Discussed with Patient
Old Records: Reviewed
[2024-01-10 12:24] LABS: Glucose - Point of Care 114 mg/dl (70-99)
[2024-01-10 12:31] LABS: APTT 32.2 Sec (23.4-35.0)
[2024-01-10 12:40] LABS: Troponin I 0.017 ng/ml
[2024-01-10] MEDS: NOVOLOG FLEXPEN SC ×2 (13:05→17:15)
--- NOTE | 2024-01-10 13:05 | PTCARENOTE ---
prior to lunch blood sugar 114; patient eat half of burger pt is due for Novolog 3 units / patient refused stating that because of lantus which was given earlier, he does not need novol. pt watch clock, as soon as he is due to Morphine pt requesting
pain medicine for chest pain 10/10 pain scale . dialyisis in progeress
--- NOTE | 2024-01-10 13:26 | W.PN.NEPH.HD ---
Assessment
-
- some chest pain prior to HD initiation, given pain medication
Progress Note - Hemodialysis
-
Date of Service: January 10, 2024
Duration: 30 minutes and 3 hours
Potassium Bath: 2
Calcium Bath: 2.5
Opti-Dialyzer: 160
Ultrafiltration: Other (3.5L)
Blood Flow: 400
Dialysate Flow: 600
[2024-01-10] MEDS: FLEXBUMIN 25% FOR HEMODIALYSIS 12.5 GRAMS IV (13:58)
[2024-01-10] MEDS: MANNITOL 12.5 GRAMS IV ×2 (13:59→15:45)
[2024-01-10 17:25] LABS: Glucose - Point of Care 101 mg/dl (70-99)
[2024-01-10] MEDS: LASIX 40 MG PO (18:11)
--- NOTE | 2024-01-10 18:13 | PTCARENOTE ---
Dialysis completed at 16:15 per patient request Morphine adm for chest pain 06/12. pt describes pain as sharp, notes that chest is chronic that he typical takes tylenol at home. patient encourage to take tylenol, instead of morphine . patient
insisting to take morphine . Insulin supply was dropped off by family pt's mom. At this time pt states that insulin pump is functional properly and infusing at 0.5 unit /hr. Blood sugar before dinner 101. call luevano within reach
--- NOTE | 2024-01-10 18:56 | PTCARENOTE ---
At 18:43 insisted to be discharge against medical advice of his doctors. patient has been recommended to stay in hospital over night so his blood sugar could be monitored. Against medical advice form sigh by patient. patient supervised to main
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 periheral line removed prior to d.c
--- NOTE | 2024-01-11 15:56 | W.DCSUMMARY ---
Discharge Summary
Discharge Data
Date of Admission: 01/10/24
Date of Discharge: 01/10/24
-
Pending Results: No
Hospital Course
Primary diagnosis:
Diabetes mellitus-I with Marked Hyperglycemia
Hypervolemia / Anasarca
Right Pleural Effusion
Secondary diagnosis:
End-stage renal disease on hemodialysis
Severe pulmonary hypertension
Severe tricuspid regurgitation
Moderate persistent hypertension
Anemia of chronic disease
Hospital course:
31-year-old gentleman with end-stage renal disease on hemodialysis diabetes type 1 presented with nonspecific chest pain and shortness of breath. He was diagnosed to have fluid hypervolemia and marked hyperglycemia with blood sugars of 733 without
acidosis. He has issues with compliance. His weight is also significantly up -normally 61kg but was 70kg .
Sugars quickly improved with IV insulin; cannot give IV fluids as he was already hypovolemic. He was also dialyzed with improvement in his shortness of breath. His chest pains also resolved,his troponins were negative.
As soon as his dialysis was finished he didn't wait to follow on blood sugars and further need of HD and signed AMA
Consultants on board:
Historian Research Assistant-Dr. Salter
Nephrology-Dr. Interiano
Discharge Plan
-
Patient Disposition: Against Medical Advice
Prescriptions:
No Action
furosemide 40 MG tablet
40 mg PO QPM
carvedilol [Coreg] 25 MG tablet
25 mg PO BID
amlodipine 10 MG tablet
10 mg PO DAILY
calcium carbonate [Tums] 200 mg calcium (500 mg) Tablet,Chewable
200 mg PO TIDPRN PRN (Reason: gerd)
metoclopramide HCl [Reglan] 10 mg Tablet
10 mg PO TIDPRN PRN (Reason: nausea)
hydralazine 100 mg Tablet
100 mg PO Q8H
oxcarbazepine 150 mg tablet
150 mg PO HS
trazodone 50 mg Tablet
25 mg PO HS
acetaminophen [Tylenol Extra Strength] 500 mg Tablet
1,000 mg PO BIDPRN PRN (Reason: mild pain)
insulin aspart U-100 [Novolog U-100 Insulin aspart] 100 unit/mL solution
70 unit SC .VIA PUMP
Patient Comments:
01/05/2024, pt. has insulin pump and states to use roughly 70 units a day and replaces his insulin Q72H. Per pt., he replaced his insulin 2 days ago.
Discharge Date and Time
Discharge Date/Time: 01/10/24 18:45
== END 2024-01-10 18:45 | disposition left against medical advice (07) | DRG 637 ==
LOC: ICU 04:32
PROVIDERS: ADMITTING PHYSICIAN Hospitalist; ATTENDING PHYSICIAN Internal Medicine; CONSULT PHYSICIAN Student in an Organized Health Care Education/Training Program; EMERGENCY PHYSICIAN Emergency Medicine; FAMILY PHYSICIAN Internal Medicine; OTHER PHYSICIAN Internal Medicine
PROC: 5A1D70Z Performance of Urinary Filtration, Intermittent, Less than 6 Hours Per Day (ICD-10-PCS; 2024-01-10)
DX: E10.65 Type 1 diabetes mellitus with hyperglycemia (principal); N18.6 End stage renal disease; I13.2 Hypertensive heart and chronic kidney disease with heart failure and with stage 5 chronic kidney disease, or end stage renal disease; J90 Pleural effusion, not elsewhere classified; E87.1 Hypo-osmolality and hyponatremia; E87.0 Hyperosmolality and hypernatremia; R07.9 Chest pain, unspecified; E10.22 Type 1 diabetes mellitus with diabetic chronic kidney disease; I50.9 Heart failure, unspecified; K31.84 Gastroparesis; E10.43 Type 1 diabetes mellitus with diabetic autonomic (poly)neuropathy; F32.A Depression, unspecified; F41.9 Anxiety disorder, unspecified; I27.20 Pulmonary hypertension, unspecified; I07.1 Rheumatic tricuspid insufficiency; I1A.0 Resistant hypertension; E10.319 Type 1 diabetes mellitus with unspecified diabetic retinopathy without macular edema; G62.9 Polyneuropathy, unspecified; E87.5 Hyperkalemia; E10.69 Type 1 diabetes mellitus with other specified complication; F17.210 Nicotine dependence, cigarettes, uncomplicated; K21.9 Gastro-esophageal reflux disease without esophagitis; D63.1 Anemia in chronic kidney disease; E21.3 Hyperparathyroidism, unspecified; G89.29 Other chronic pain; K59.00 Constipation, unspecified; Z99.2 Dependence on renal dialysis; Z53.29 Procedure and treatment not carried out because of patient's decision for other reasons; Z86.711 Personal history of pulmonary embolism; Z91.013 Allergy to seafood; Z79.4 Long term (current) use of insulin; Z76.5 Malingerer [conscious simulation]; Z96.41 Presence of insulin pump (external) (internal); Z91.148 Patient's other noncompliance with medication regimen for other reason; Z86.718 Personal history of other venous thrombosis and embolism; Z99.81 Dependence on supplemental oxygen
CPT/HCPCS: 71046; 80053; 82010; 82805; 82947; 82962; 83036; 83540; 83550; 84484; 85025; 85610; 85730; 87070; 87147; 93005; 96374; 96375; 99285; G0257; P9047

== ENCOUNTER 2024-01-17 21:17 | Inpatient (IN) | payer OTHER, SELFPAY ==
[2024-01-17 18:25] VITALS: BP 152/81
[2024-01-17 18:33] LABS: Glucose - Point of Care > 600 mg/dl (70-99)
[2024-01-17 18:42] LABS: % Basophils 0.2 % (0-2); % Eosinophils 0.1 % (0-6); % Immature Granulocytes 0.4 % (0-0.5); % Lymphocytes 8.2 % (20.5-51.1); % Monocytes 5.1 % (1.7-9.3); Absolute Lymphocytes 0.8 10^3/uL (1.2-3.4); Absolute Monocytes 0.5 10^3/uL (0.1-0.6); Absolute Neutrophils 7.8 10^3/uL (1.4-6.5); Hematocrit 31.1 % (39.0-52.0); Hemoglobin 9.7 g/dL (13.0-18.0); Mean Corp Hgb Conc. 31.2 g/dL (33.0-37.0); Mean Corpuscular Hgb 33.9 pg (27.0-31.0); Mean Corpuscular Volume 108.7 fL (80.0-94.0); Mean Platelet Volume 10.2 fL (7.4-10.4); Nucleated Red Blood Cells % 0.2 % (-); Platelet Count 201 10^3/uL (130-400); Red Blood Cell Count 2.86 10^6/uL (4.70-6.10); Red Cell Dist. Width 17.2 % (11.5-14.5); White Blood Cell Count 9.1 10^3/uL (4.8-10.8)
--- NOTE | 2024-01-17 18:48 | ED.GENMED ---
History of Present Illness
General
Chief Complaint: Abdominal Symptoms
Source: patient
Exam Limitations: none
Time Seen by Provider: 01/17/24 18:34
Nursing documentation reviewed up to this point in time: agreed with
Travel History
Have you had any contact with someone who has COVID-19?: No
Do you have any symptoms of coronavirus? Fever > 100 degrees, chills, cough, shortness of breath, sore throat, loss of taste or smell, muscle aches, or headache?: No
History of Present Illness
History of Present Illness:
Patient with history of end-stage renal disease on hemodialysis (Friday, Friday, Friday), presents to ED secondary to persistent abdominal pain associated with nausea and vomiting today. Patient reports drinking alcohol yesterday and missing
dialysis. Patient states that his blood sugar has been high and typically has abdominal pain with vomiting when that happens. He denies fever or chills. Denies trauma. Denies diarrhea. Denies recent illness. Of note, patient was admitted to
the [facility] 1 week ago when he was treated for similar symptoms. Patient also is complaining of mild shortness of breath.
Past History
Past History
ED Past Medical History: CHF, HTN, IDDM, Renal failure (Dialysis M-W-F) and Other (ESRD, PE, Contipation, ESRD, TR, pulmonary hypertension, congestive heart failure, etc.)
ED Past Surgical History: Appendectomy and Other (Left AV fistula, biliary drain)
Patient has exhibited threatening behavior?: No
PSI?: No
Social History
Tobacco: Smoker
Alcohol: None
Drug: None
Personal: Single
Living: with family
Employment: Other
Family History
Family History: Other
Review of Systems
Review of Systems
Allergies reviewed?: Yes
All Other Systems: ROS reviewed and negative except as documented in HPI and ROS
Constitutional: Reports no symptoms; Denies fever
EENT: Reports no symptoms
Respiratory: Reports trouble breathing
Cardiac: Reports no symptoms
ABD/GI: Reports abdominal pain, nausea and vomiting
: Reports no symptoms
Musculoskeletal: Reports no symptoms
Skin: Reports no symptoms
Neurological: Reports no symptoms
Phy Exam
Physical Exam
Physical Exam:
Physical Exam
General: mild distress, not acutely ill. afebrile
Head: nc/at. eomi
Neck: supple. no meningeal signs.
Heart: tachycardic, no murmur. equal radial pulses.
Lungs: no acute respiratory distress. clear bilaterally
Abdomen: normal bowel sounds. diffuse tender to palpation.
Neuro: alert and oriented. no focal neurological deficits
Skin: no rash
Psychiatric: well kept. interactive and cooperative
Extremities: no edema. no calf tenderness.
Course
Orders/Labs/Results
Orders:
Orders
01/17/24 18:31
Electrocardiogram (*1) Urgent
Reason for Study: Abdominal Pain
EKG- Treatment ONCE
01/17/24 18:33
Alcohol Urgent
Complete Blood Count/With Diff Urgent
Comprehensive Metabolic Panel Urgent
Lipase Urgent
Magnesium Urgent
Comment: ADDON
01/17/24 18:35
EKG- Treatment ONCE
01/17/24 18:39
HYDROmorphone [Dilaudid] 0.5 mg IV NOW STA
Ondansetron Injectable [Zofran] 4 mg IV NOW STA
01/17/24 19:13
CR Chest Portable - 1 View Urgent
Comment:
Reason For Exam: sob
Reason Study Needs to be Portable: Patient Unstable
01/17/24 19:18
Insulin Human Regular [Novolin R] 7 units IV NOW STA
01/17/24 19:41
Sodium Bicarbonate 50 meq IV NOW STA
01/17/24 19:45
Reg Insulin 100 Units/100 ml [Novolin R Insulin Infusion] 100 units in 100 ml IV ORDERED RATE
01/17/24 20:41
Ondansetron Injectable [Zofran] 4 mg IV NOW STA
01/17/24 20:45
Admit/Transfer Patient As Directed
Co-Sign Provider:
Level of Care: Inpatient admission
Assign to:: ICU
Physician / Group: hospitalist
Diagnosis: DKA
Reason for Hospitalization: DKA
Expected length of stay greater than two midnights?: Yes
ELOS- Estimated Length of Stay in days: 2
I certify the patient meets the requirements for IP care: Yes
01/17/24 20:46
Code Status As Directed
Resuscitation Status: Full Code
01/17/24 21:05
CT Abd/pel Without Iv Or Oral Urgent
Comment:
Reason For Exam: left flank pain
01/17/24 21:13
HYDROmorphone [Dilaudid] 0.5 mg IV Q4HPRN PRN
Lorazepam [Ativan] 1 mg IV Q1HPRN PRN
Lorazepam [Ativan] 1 mg PO Q2HPRN PRN
Lorazepam [Ativan] 2 mg IV Q1HPRN PRN
01/17/24 21:13
MSAS SCORE As Directed
MSAS Score 0-4: Repeat MSAS every 2 hours until 0-4 for three consecutive assessments, then every 4 hours x 48
hours.
MSAS Score 5-7: For MILD withdrawl symptoms. Repeat MSAS and RASS every 2 hours
MSAS Score 8-11: For MODERATE withdrawal symptoms. Repeat MSAS and RASS every 1 hour. Consider ICU or IMU
level of care.
MSAS Score > 11: For SEVERE withdrawal symptoms. Repeat MSAS and RASS every 1 hour. Notify provider, consider
ICU level of care.
MSAS Additional Instructions: If no improvement or no decrease in score from severe to moderate within 12
hours, consult psychiatry
MSAS Notify Provider: Notify provider if patient requires more than 10 mg of Lorazepam in eight hour period.
Notify MD As Directed
Notify physician if: Nurse to contact provider when glucose reaches 250 to obtain orders for D5 0.45 NaCl
01/17/24 21:15
BMP [Basic Metabolic Panel] Urgent
01/17/24 21:16
HYDROmorphone [Dilaudid] 0.5 mg IV Q4HPRN PRN
Lorazepam [Ativan] 1 mg PO Q2HPRN PRN
01/17/24 21:17
Lorazepam [Ativan] 1 mg IV Q1HPRN PRN
Lorazepam [Ativan] 2 mg IV Q1HPRN PRN
01/17/24 22:00
Flush (0.9% Sodium Chloride) [Flush (Nss)] See Dose Instructions IV PER PROTOCOL
01/17/24 22:58
Ondansetron Injectable [Zofran] 4 mg IV Q6HPRN PRN
Trazodone [Desyrel] 25 mg PO HS
01/17/24 22:58
Predator Control Trapper Consult Routine
Consulting Provider: Laurent Drummond
Was physician already notified: Yes
Reason for consult: DKA
NEPHROLOGY CONSULT Routine
Consulting Provider: Britni De La Torre
Was physician already notified: Yes
Reason for consult: Type 1 diabetes with DKA, ESRD M/W/F, missed HD friday.
Activity As Directed
Activity Level: With Assistance
Bedside Glucose Monitoring As Directed
Frequency: Q1H
Intake/ Output As Directed
Frequency: Per unit guidelines
Vital Signs As Directed
Frequency: Per unit guidelines
DX Deep Vein Thrombosis Video Routine
01/18/24 00:00
Heparin 5,000 units SC Q8
01/18/24 08:00
Amlodipine [Norvasc] 10 mg PO DAILY
Carvedilol [Coreg] 25 mg PO BID
Oxcarbazepine [Trileptal] 150 mg PO DAILY
Thiamine Injection 200 mg IV Q12
01/21/24 08:00
Thiamine HCl [Vitamin B1] 100 mg PO BID
Abnormal Lab Results
01/17/24 01/17/24 01/17/24
18:32 18:33 21:11
RBC 2.86 L 10^6/uL
(4.70-6.10)
Hgb 9.7 L g/dL
(13.0-18.0)
Hct 31.1 L %
(39.0-52.0)
MCV 108.7 H fL
(80.0-94.0)
MCH 33.9 H pg
(27.0-31.0)
MCHC 31.2 L g/dL
(33.0-37.0)
RDW 17.2 H %
(11.5-14.5)
Absolute Neuts (auto) 7.8 H 10^3/uL
(1.4-6.5)
Absolute Lymphs (auto) 0.8 L 10^3/uL
(1.2-3.4)
Neutrophils % 86.0 H %
(42.2-75.2)
Lymphocytes % 8.2 L %
(20.5-51.1)
Sodium 126 L mmol/L
(135-145)
Potassium 5.5 H mmol/L
(3.5-5.1)
Chloride 86 L mmol/L
(98-107)
Carbon Dioxide 7 L* mmol/L
(22-30)
BUN 50 H mg/dl
(9-20)
Creatinine 7.3 H* mg/dL
(0.7-1.3)
Glucose 1008 H* mg/dl
(70-99)
Calcium 7.7 L mg/dl
(8.4-10.2)
Magnesium 2.6 H mg/dl
(1.6-2.3)
Alkaline Phosphatase 160 H U/L
(38-126)
POC Glucose > 600 H* mg/dl > 600 H* mg/dl
(70-99) (70-99)
01/17/24
21:15
RBC
Hgb
Hct
MCV
MCH
MCHC
RDW
Absolute Neuts (auto)
Absolute Lymphs (auto)
Neutrophils %
Lymphocytes %
Sodium 126 L mmol/L
(135-145)
Potassium
Chloride 89 L mmol/L
(98-107)
Carbon Dioxide 16 L mmol/L
(22-30)
BUN 56 H mg/dl
(9-20)
Creatinine 6.8 H* mg/dL
(0.7-1.3)
Glucose 803 H* mg/dl
(70-99)
Calcium 7.6 L mg/dl
(8.4-10.2)
Magnesium
Alkaline Phosphatase
POC Glucose
01/17/24 18:33
01/17/24 21:15
Vital Signs
Initial and Last Documented VS:
Initial Vital Signs
Temp Pulse Resp BP Pulse Ox
98.3 F 106 22 152/81 94
01/17/24 18:25 01/17/24 18:25 01/17/24 18:25 01/17/24 18:25 01/17/24 18:25
Last Documented Vital Signs
Temp Pulse Resp BP Pulse Ox
99.1 F 89 20 155/70 98
01/18/24 12:49 01/18/24 12:49 01/18/24 12:49 01/18/24 12:49 01/18/24 12:49
MDM/Problems Addressed
MDM/Problems Addressed:
Repeat abdominal exam after dilaudid administration: soft and nontender. Will withhold imaging studies at this time.
Blood work remarkable for likely DKA.
Discussed with (nephrology) -recommend starting insulin drip to close the gap, along with 1 amp of sodium bicarb. In addition, recommends repeating chemistry in 2 to 3 hours. If anion gap does not close, will make an arrangement for
urgent dialysis tonight.
Pt also high risk for develop alcohol withdrawal symptoms. Will need to be monitored carefully.
Critical care statement: A total of 40 minutes of critical care time was provided for this patient. This includes management of unstable vital signs, evaluation of the patient at bedside, reviewing the patient's pertinent medical records, discussion
with consultants, review of old EKGs and review of pertinent medical records. This time with separate from time utilized to perform the aforementioned documented procedures
*EKG
Interpreted by ED Provider?: Yes
EKG Intrepretation Date: 01/17/24
Heart Rate: 107
Rate: tachycardiac
Rhythm: sinus
[place]: normal axis
Interval: normal interval
Ischemia: T-wave inversion
*Critical Care Note
Total Time (30-74mins, 75-104mins- exclusive of procedures): Not Applicable
ED Attending Note
-
Portions of this chart may have been created with voice recognition software.� Occasional wrong word or��sound alike� substitutions may have occurred due to the inherent limitations of voice recognition software.
Discharge Plan
Departure
Patient Disposition: Admit
Date of Disposition: 01/17/24
Time of Disposition: 19:45
Admit to: ICU
Presentation/result/management discussed w/ accepting MD/DO: Hospitalist
Discharge Problem:
DKA (diabetic ketoacidosis), End-stage renal disease (ESRD)
Interventions
Interventions:
*Risk Screen - Suicide Last Done: 01/17/24 22:47
*General Assessment Last Done: 01/17/24 18:25
*Neglect/Abuse Screening Last Done: 01/17/24 18:25
ED- Fall Risk Assessment Last Done: 01/17/24 22:45
*ED COVID-19 Vaccine History Last Done: 01/17/24 22:47
*Nursing Disposition Last Done: 01/17/24 22:45
VU-Rsfcvg-Ozvzatzxvr Assessment Last Done: 01/17/24 19:00
Discharge Date and Time
Discharge Date/Time: 01/17/24 22:57
--- NOTE | 2024-01-17 19:00 | EDRN ---
report received, introduced myself to patient and medicated, call luevano in reach.
[2024-01-17 19:10] LABS: ALT (SGPT) 35 U/L (0-50); AST (SGOT) 49 U/L (17-59); Albumin 4.4 g/dl (3.5-5.0); Alkaline Phosphatase 160 U/L (38-126); Blood Urea Nitrogen 50 mg/dl (9-20); Calcium 7.7 mg/dl (8.4-10.2); Carbon Dioxide 7 mmol/L (22-30); Chloride 86 mmol/L (98-107); Estimated Creatinine Clearance 14 ml/min; Lipase 33 U/L (23-300); Potassium 5.5 mmol/L (3.5-5.1); Sodium 126 mmol/L (135-145); Total Protein 6.7 g/dl (6.3-8.2); eGFR 9.44
[2024-01-17] MEDS: ZOFRAN 4 MG IV ×2 (19:17→20:45)
[2024-01-17] MEDS: DILAUDID 0.5 MG IV (19:18)
--- NOTE | 2024-01-17 19:18 | EDRN ---
Patient o2 was lowering after pain meds, placed on 2L nasal canula
[2024-01-17 19:37] LABS: Glucose 1008 mg/dl (70-99)
[2024-01-17] MEDS: NOVOLIN R 7 UNITS IV (19:41)
[2024-01-17] MEDS: SODIUM BICARBONATE 50 MEQ IV (19:45)
[2024-01-17 19:59] LABS: Alcohol None Detected
[2024-01-17 20:00] VITALS: BP 146/70
--- NOTE | 2024-01-17 20:02 | PHANOTE ---
01/17/2024, med rec tech, pt. obtunded at time of interview; used pharmacy fill data to compile a list of pt.'s meds.; [facility] records are outdated (from 2020); could not confirm pt.'s meds.
[2024-01-17] MEDS: NOVOLIN R INSULIN INFUSION 100 IV (20:04)
[2024-01-17 20:09] LABS: Magnesium 2.6 mg/dl (1.6-2.3)
--- NOTE | 2024-01-17 20:24 | EDRN ---
patient had asked for water, Dr. Jiang said he could have something, trialed ice chips, which made patient nauseated
--- NOTE | 2024-01-17 20:27 | EDRN ---
Hospitalist at bedside working on admission
--- NOTE | 2024-01-17 20:33 | HPS.HSE ---
Family Physician
-
Family Physician: INTERVIEWE UNKNOWN - PT NOT
Chief Complaint
-
Nausea and vomiting
History of Present Illness
This is a 33-year-old male with type 1 diabetes and history of recurrent DKA, ESRD on hemodialysis Friday, CHF, hypertension, presenting to the emergency department in DKA.
Patient reports that he has an insulin pump and lower back region yesterday. He realized that he ran out of battery at around 4 PM today. He replaced back frequently try to replace the pump continues benefiting appropriately so he could not
replace them. He says that he has been having continuous nausea and vomiting since. Denies any fevers or chills. He denied any diarrhea. He did notice left lower quadrant abdominal pain that is typical when he gets DKA with nausea and vomiting.
Patient missed his last dialysis yesterday. He said he was drinking yesterday and had half of a bottle of liquor. He denies regular drinking saying that his last drink prior to this was a long time ago. He was adamant that his never had alcohol
withdrawal and only binges on alcohol occasionally. Denies any acute drug use.
On arrival in the emergency department he was uncomfortable but afebrile and hemodynamically stable. CBC was unchanged for him. His chemistries was notable for a potassium of 5.5, a bicarb of 7 and a glucose of 1008. Chest x-ray shows persistent
small to moderate right pleural effusion which is slightly improved from prior.
Medical History
Past Medical History
Past Medical History: Reports CHF, HTN, IDDM and Renal Failure
Past Surgical History: Reports None
Social History
Tobacco: Former Smoker
Alcohol: Binge drinker
Drug: None
Personal: Single
Living: With Family
Employment: Disabled
Family History
Family History: Not pertinent
Allergies / Home Medications
Allergies reflects when Allergies were last updated in [employer].
Home Medications with original date entered in [employer]
Allergy/Medication List:
Allergies
Allergy/AdvReac Type Severity Reaction Status Date / Time
shellfish derived Allergy Hives Verified 01/17/24 18:25
Home Medications
amlodipine 10 mg tablet 10 mg PO DAILY Blood pressure 04/22/21
carvedilol 25 mg tablet (Coreg) 25 mg PO BID Blood pressure 04/22/21
furosemide 40 mg tablet 40 mg PO BID Fluid retention/Swelling 04/22/21
metoclopramide HCl 10 mg tablet (Reglan) 10 mg PO TIDPRN PRN nausea 04/07/23
oxcarbazepine 150 mg tablet 150 mg PO DAILY Mental Health/Anxiety 07/24/23
insulin aspart U-100 100 unit/mL subcutaneous solution (Novolog U-100 Insulin aspart) 70 unit SC .VIA PUMP 01/05/24
trazodone 50 mg tablet 25 mg PO HS 01/05/24
Review of Systems
-
History Source: Patient
Constitutional: Reports No Symptoms
EENT: Reports No Symptoms
Respiratory: Reports No Symptoms
Cardiac: Reports No Symptoms
Abdomen/GI: Reports Nausea and Vomiting
: Reports No Symptoms
Musculoskeletal: Reports No Symptoms
Skin: Reports No Symptoms
Neurological: Reports No Symptoms
Endocrine: Reports No Symptoms
Hematologic/Lymphatic: Reports No Symptoms
Psych: Reports No Symptoms
Physical Exam
Vital Signs
Vital Signs
Temp Pulse Resp BP Pulse Ox
98.3 F 106 22 152/81 94
01/17/24 18:25 01/17/24 18:25 01/17/24 18:25 01/17/24 18:25 01/17/24 18:25
Physical Exam
General: Appears in Distress
HEENT: NormoCephalic, Anicteric, Moist mucous membranes, Atraumatic and No Ptosis
Respiratory: Clear
Cardiac: S1/S2 and Tachycardia
Breast: Deferred by me
GI: Soft, Normal Bowel Sounds, Tender and Distended
Rectal: Deferred by Provider
Genito-urinary: Deferred by me
Musculoskeletal: No Clubbing, No Cyanosis, Edema, Left Lower Extremity and Edema, Right Lower Extremity
Skin: Warm and Dry
Neuro: AO x 3
Hematologic/Lymphatic: No Lymphadenopathy
Psych: Calm
Laboratory Results
-
01/17/24 18:33
01/17/24 18:33
Laboratory Results
Total Bilirubin 1.0 mg/dl (0.2-1.3) 01/17/24 18:33
AST 49 U/L (17-59) 01/17/24 18:33
ALT 35 U/L (0-50) 01/17/24 18:33
Alkaline Phosphatase 160 U/L (38-126) H 01/17/24 18:33
Lipase 33 U/L (23-300) 01/17/24 18:33
Data Reviewed
-
Diagnostic Radiology: Image Personally Visualized and interpreted and Report Reviewed by me
Lab Data: Labs Reviewed by me
Old Records: Reviewed
Impression/Plan
-
IMPRESSION:
PLAN:
1. DKA - DKA secondary to loss of insulin pump function. Could not tell me his basal and bolus dosing on the pump.
- admit to icu
- mildly hypervolemic with K of 5.5, started on insulin gtt. Continue gtt
- 1 amp bicarb given
- Continue DKA protocol without IV fluids, BMP and phos q 4 hours
- NPO except sips for now
- pain control and antiemetics
- will need to be initiated on basal bolus dosing when gap closes
- if gap not closing on repeat BMP, nephrology recommends dialsysis
2. ESRD - HD M/W/F via left UE AVF. Last HD Friday. Mild hypervolemia on exam.
- NPO for now
- nephrology consulted, plan for HD in am. Sooner if gap remains wide on repeat chemistries
- avoid additional volume
3. ETOH - Endorsed only binge drinking. Denies regular etoh intake and denies h/o withdrawal
- CIWA protocol for now
4. HTN
- continue amlodpin and carvedilol per home
DVT PPX - heparin sq
--- NOTE | 2024-01-17 20:57 | EDRN ---
Patient was getting sick, zofran was given to patient for this
[2024-01-17 21:00] VITALS: BP 162/78
[2024-01-17 21:12] LABS: Glucose - Point of Care > 600 mg/dl (70-99)
[2024-01-17] MEDS: ATIVAN 1 MG IV (21:26)
[2024-01-17 21:48] LABS: Blood Urea Nitrogen 56 mg/dl (9-20); Calcium 7.6 mg/dl (8.4-10.2); Carbon Dioxide 16 mmol/L (22-30); Chloride 89 mmol/L (98-107); Estimated Creatinine Clearance 15 ml/min; Glucose 803 mg/dl (70-99); Potassium 4.8 mmol/L (3.5-5.1); Sodium 126 mmol/L (135-145); eGFR 10.28
--- NOTE | 2024-01-17 21:57 | EDRN ---
Patients blood glucose came back 803, titus texted hospitalist covering ICU to inform them of patients blood glucose level, also asking for order for Insulin titration protocol, nothing in the MAR for titration based off the 803 results
[2024-01-17 22:00] VITALS: BP 144/75
--- NOTE | 2024-01-17 22:10 | EDRN ---
Spoke with Marcelino Magallon, RADIATION PROTECTION TECHNICIAN who is covering ICU, he corrected the Insulin drip order with protocol set, also states to keep infusion at 7 units for now until the next check, informed him that it is time for a bedside glucose check, however
nothing had been adjusted so will have to send a formal right away instead of when its due at 2300, was informed to hold off and they will check when patient goes upstairs. Patient to go to CT and then upstairs, go into patients room and he is
sitting at the end of the bed, informed him he needs to be back in bed so he doesn't fall or rip IV out of arm, patient does scoot back into bed and then transported to CT and upstairs
[2024-01-17 22:47] VITALS: BMI 22.8
[2024-01-17 22:57] LABS: Glucose - Point of Care > 600 mg/dl (70-99)
[2024-01-17] MEDS: HEPARIN 5000 UNITS SC (23:15)
[2024-01-17] MEDS: DESYREL 25 MG PO (23:15)
[2024-01-17 23:31] LABS: Blood Urea Nitrogen 62 mg/dl (9-20); Calcium 7.9 mg/dl (8.4-10.2); Carbon Dioxide 21 mmol/L (22-30); Chloride 87 mmol/L (98-107); Estimated Creatinine Clearance 14 ml/min; Potassium 4.5 mmol/L (3.5-5.1); Sodium 129 mmol/L (135-145)
[2024-01-17 23:42] LABS: Glucose 700 mg/dl (70-99)
[2024-01-18] VITALS (50 sets, daily range): BP systolic 96–183; BP diastolic 66–104; BMI 22.8
[2024-01-18 00:10] LABS: Glucose - Point of Care 595 mg/dl (70-99)
[2024-01-18 00:59] LABS: Glucose 656 mg/dl (70-99)
[2024-01-18 01:09] LABS: Glucose - Point of Care 560 mg/dl (70-99)
[2024-01-18 02:16] LABS: Glucose - Point of Care 477 mg/dl (70-99)
[2024-01-18 02:33] LABS: Glucose 477 mg/dl (70-99)
[2024-01-18 03:12] LABS: Glucose - Point of Care 433 mg/dl (70-99)
[2024-01-18 03:27] LABS: Blood Urea Nitrogen 63 mg/dl (9-20); Calcium 7.6 mg/dl (8.4-10.2); Carbon Dioxide 24 mmol/L (22-30); Chloride 92 mmol/L (98-107); Estimated Creatinine Clearance 15 ml/min; Glucose 391 mg/dl (70-99); Potassium 4.5 mmol/L (3.5-5.1); Sodium 131 mmol/L (135-145); eGFR 10.46
[2024-01-18 04:28] LABS: Glucose - Point of Care 327 mg/dl (70-99)
[2024-01-18 05:20] LABS: Glucose - Point of Care 244 mg/dl (70-99)
[2024-01-18] MEDS: TYLENOL 650 MG PO ×2 (05:40→13:44)
--- NOTE | 2024-01-18 05:47 | PTCARENOTE ---
Addendum entered by Josee Garnica RN 01/18/24 05:56:
01/17/24 -2299 received pt from ED, patient lethargic and tired, however able to follow commands, and get oob and transfer to icu bed with min ast of one. pt on insulin gtt at 7, and was increased to 8 per PROGRAM DEVELOPER.
patient on hourly bg checks and has had stat glucose with every draw. patient on ciwa protocol as he admitted to binge drinking every few days, however patient has no aggittion, tremors, tachycardia, n/v and has been resting comfortably
pt has multiple scabs and areas of 'picking' wounds, pt states its from playing to rough with his dogs, denies any iv drug use
0400 patient below 350 and is on insuin taper per protocol.
0500- pt below 250 and per NPa new order placed for insulin gtt to stay at 2 because patient unable to have IVF with dextrose r/t his chf
Original Note:
patient remains on insulin gtt, pt has been kept on 8 units until his bg was 350 and then he went to dka taper. now that patient bg is below 250, unable to receive ivf with dextrose r/t fluid overload and chf, so per PROGRAM DEVELOPER, new order placed to keep
patient on 2units and not to titrate, however if bg falls below 120 turn off insulin gtt.
patient offers mild complaints of pain to abdomen, tylenol given with effective results.
[2024-01-18 06:20] LABS: Glucose - Point of Care 161 mg/dl (70-99)
[2024-01-18 07:06] LABS: Glucose - Point of Care 134 mg/dl (70-99)
[2024-01-18 08:39] LABS: Blood Urea Nitrogen 69 mg/dl (9-20); Calcium 7.9 mg/dl (8.4-10.2); Carbon Dioxide 25 mmol/L (22-30); Chloride 92 mmol/L (98-107); Estimated Creatinine Clearance 14 ml/min; Glucose 115 mg/dl (70-99); Potassium 4.7 mmol/L (3.5-5.1); Sodium 134 mmol/L (135-145); eGFR 9.76
[2024-01-18] MEDS: HEPARIN 500 UNITS IV ×2 (09:09→10:10)
[2024-01-18] MEDS: COREG 25 MG PO (09:12)
[2024-01-18] MEDS: THIAMINE INJECTION 200 MG IV (09:13)
[2024-01-18] MEDS: HEPARIN 5000 UNITS SC ×2 (09:13→15:10)
[2024-01-18] MEDS: TRILEPTAL 150 MG PO (09:13)
[2024-01-18] MEDS: NORVASC 10 MG PO (09:14)
[2024-01-18 09:21] LABS: Glucose - Point of Care 96 mg/dl (70-99)
--- NOTE | 2024-01-18 09:43 | PTCARENOTE ---
Updated assessment, vital signs ongoing and as documented. Follow up with global product manager team. Review lab trends, bmp, accu data and taper of insulin as ordered. Patient not interested in teaching or reinforcement in plan of cares. Patient states hopes
to leave after treatment. Insulin pump at bedside. Await hospitalist team for follow up plan of cares, insulin management and to update gap/trends. Continue with teaching and supportive cares. HD in progress. Continue to follow along with HD nurse
at bedside.
[2024-01-18] MEDS: MANNITOL 12.5 GRAMS IV (10:15)
--- NOTE | 2024-01-18 10:32 | PTCARENOTE ---
Update with Nephrology. Continue HD in progress. VSS update am rounds. Await follow up with hospitalist, Diabetic management team. Continue hourly rounds. HD nurse at bedside.
--- NOTE | 2024-01-18 10:39 | W.CON.NEPH ---
Consultation
-
Date/Time Consultation Requested: 01/17/24 2250
Date/Time Consultation Performed: 01/18/24 1000
Requesting Provider: Shawna Joseph
Performing Provider: Britni Fagan
Reason for Consultation: ESRD
Medical History
-
Chief Complaint: Hyperglycemia
History of Present Illness:
Mr. Soliz is a 33 YOM with PMH of ESRD on HD (MWF at [facility]), HTN (on multiple medications), T1DM (on insulin pump c/b neuropathy, nephropathy), hyperphos on binders, multiple hospital presentations for drug seeking behavior who
presents to the ER for hyperglycemia and found to be DKA with BG ~1000. He slept through Friday and missed HD, last HD was on Friday last week. Reportedly pt has ran out f battery of insulin pump and has symptoms of n/v and abd pain for 2days. He
started on insulin gtt and BG have significantly improved to 100 and A gap closing. He is difficult historian most of the history obtained from chart and staff. CXR shows right side pleural effusion. Reportedly he also had ETOH intake 1/2 bottle
liquor on Friday. Offers no CP or sob this am. NOte he left AMA last week after admitting for CP, sob which felt to from vol overload and improved with HD.
Past Medical History
1.� History of ESRD on dialysis Friday, Friday, Friday.
2.� Prior peritoneal dialysis since catheter removed.
3.� Diabetes mellitus with microvascular complications,
� � nephropathy, retinopathy and neuropathy. On insulin pump.
4.� History of DVT and PE, not on anticoagulation.
5.� Hypertension on multidrug regimen.
6.� Chronic fluid overload.
7.� GERD.
8.� History of pericardial effusion.
9.� Long-standing active smoker.
10. Anemia of CKD.
11. Hyperparathyroidism.
12. Persistent hyperphosphatemia.
13. Anxiety, depression.
14. Prior narcotic-seeking behavior.
15. 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
16. Medication noncompliance.
17. Severe TR and severe pulmonary hypertension.
Past Surgical History: Other (ANITRA AVJordi)
Social History
Tobacco: Smoker
Alcohol: Occasional
Personal: Single
Family History
Family History: Not Pertinent
Allergies / Home Medications
Allergy/AdvReac Type Severity Reaction Status Date / Time
shellfish derived Allergy Hives Verified 01/17/24 18:25
Medication Instructions Recorded Confirmed Type
amlodipine 10 mg tablet 10 mg PO DAILY Blood pressure 04/22/21 01/10/24 History
carvedilol 25 mg tablet (Coreg) 25 mg PO BID Blood pressure 04/22/21 01/10/24 History
furosemide 40 mg tablet 40 mg PO BID Fluid 04/22/21 01/10/24 History
retention/Swelling
metoclopramide HCl 10 mg tablet 10 mg PO TIDPRN PRN nausea 04/07/23 01/10/24 History
(Reglan)
oxcarbazepine 150 mg tablet 150 mg PO DAILY Mental 07/24/23 01/10/24 History
Health/Anxiety
insulin aspart U-100 100 unit/mL 70 unit SC .VIA PUMP 01/05/24 01/10/24 History
subcutaneous solution (Novolog
U-100 Insulin aspart)
trazodone 50 mg tablet 25 mg PO HS 01/05/24 01/10/24 History
Review of Systems
-
All complete 12 point ROS have been inquired and found negative other than state din HPI
Physical Exam
Vital Signs
Vital Signs
Temp Pulse Resp BP Pulse Ox
98.4 F 92 16 174/103 99
01/18/24 08:05 01/18/24 10:30 01/18/24 10:30 01/18/24 10:30 01/18/24 10:30
Lab Results
WBC 9.1 10^3/uL (4.8-10.8) 01/17/24 18:33
RBC 2.86 10^6/uL (4.70-6.10) L 01/17/24 18:33
Hgb 9.7 g/dL (13.0-18.0) L 01/17/24 18:33
Hct 31.1 % (39.0-52.0) L 01/17/24 18:33
Plt Count 201 10^3/uL (130-400) 01/17/24 18:33
eGFR 9.76 01/18/24 08:06
Albumin 4.4 g/dl (3.5-5.0) 01/17/24 18:33
EKG:
SINUS TACHYCARDIA
POSSIBLE LEFT ATRIAL ENLARGEMENT
T WAVE ABNORMALITY, CONSIDER ANTERIOR ISCHEMIA
ABNORMAL ECG
WHEN COMPARED WITH ECG OF 10-JAN-2024 01:41,
INVERTED T WAVES HAVE REPLACED NONSPECIFIC T WAVE ABNORMALITY IN ANTERIOR
LEADS
Confirmed by SALLY KEITH MD ([id number]) on 01/18/2024 7:51:15 AM
�
CXR:
Exams:� CR Chest Portable - 1 View
COMPARISON: 01/10/2024
FINDINGS:
Lines and tubes: None.
Lungs: Small to moderate right pleural effusion with associated consolidation, slightly improved. No pleural effusion or pneumothorax.
Heart: Stable enlargement of the cardiomediastinal silhouette. No overt pulmonary vascular congestion.
Osseous structures: No acute abnormalities.
IMPRESSION:
Small to moderate right pleural effusion with associated atelectasis and/or pneumonia, slightly improved.
Electronically signed by Dez España 01/17/2024 7:[address] abd pending results
Physical Exam
General: Awake, Alert, Oriented, AOx3, No Distress and Nontoxic
HEENT: EOMI and Anicteric
Respiratory: Clear
Cardiac: S1/S2 and Regular Rate/Rhythm
Abdomen: Soft and Nondistended
Musculoskeletal: No Cyanosis and Edema (1+)
Skin: No Rash
Neuro: Nonfocal/Grossly Intact
Psych: Other (poor insight and judgement)
Assessment/Plan
-
Assessment:
DKA BG of ~1000
ESRD ~3 years (PD-->HD), MWF , [facility] unit MWF in [place]
Hyperphosphatemia
History of DVT and pulmonary embolus
Hypertension, multidrug and uncontrolled
CHF Preserved LV function
Chronic fluid overload
Diabetes mellitus on insulin pump, multiple microvascular complications
Severe pulmonary hypertension
Severe TR
Anemia in part CKD related
h/o right pleural effusion
Left upper arm AV fistula
History of peritoneal dialysis status post PD catheter removal
History pericardial effusion
Active smoker
ETOH
Plan:
Recent d/c after treating vol overload with HD and left AMA, now returns with DKA , missed HD on Friday
Seem medical non complaint chronically with drug seeking behavior
HD today with UF to get him to EDW
hemodynamically stable
insulin gtt per primary , gap closing
reviewed with pt that intermediate prognosis is poor if he remains non compliant
HD tomorrow if he still here and not leaving AMA
d/w nursing
Data Reviewed
-
Radiology: Report Reviewed by me
Labs: Labs Reviewed by me, Discussed with Nurse and Discussed with Patient
[2024-01-18 10:42] LABS: Glucose - Point of Care 95 mg/dl (70-99)
--- NOTE | 2024-01-18 10:52 | PTCARENOTE ---
Hospitalist at bedside. HD continues follow up plan of cares, new orders and update. Will follow up post HD bmp and trends.
--- NOTE | 2024-01-18 11:05 | W.PN.NEPH.HD ---
Assessment
-
pt seen during HD
vitals stable
c/o abd pain cramping, UF lowered to 3kg, he is over 4kg above EDW
AVF functions well
Progress Note - Hemodialysis
-
Date of Service: January 18, 2024
Duration: 30 minutes and 3 hours
Potassium Bath: 2
Calcium Bath: 2.5
Opti-Dialyzer: 160
Ultrafiltration: Other (3.5kg)
Blood Flow: 400
Dialysate Flow: 600
Heparin: yesx2
EPO: 4000
[2024-01-18] MEDS: RETACRIT 4000 UNITS IV (11:13)
[2024-01-18 11:54] LABS: Blood Urea Nitrogen 20 mg/dl (9-20); Carbon Dioxide 30 mmol/L (22-30); Chloride 95 mmol/L (98-107); Estimated Creatinine Clearance 41 ml/min; Glucose 107 mg/dl (70-99); Sodium 135 mmol/L (135-145); eGFR 35.87
--- NOTE | 2024-01-18 12:31 | CON.INTV ---
Consultation
Consultation Request
Date/Time Consultation Requested: 01/18/2024
Date/Time Consultation Performed: 01/18/2024
Requesting Provider: Dr. Herrera
Performing Provider: Dr. Laurent Liu
Reason for Consultation: Diabetes ketoacidosis
Medical History
-
History of Present Illness:
33-year-old man who has type 1 diabetes mellitus, well-known to [facility], poor compliant with his regimen, on an insulin pump, on end-stage renal disease on dialysis Friday-Friday and Friday, hypertension, diabetic neuropathy and
retinopathy presented to the emergency room with DKA picture.
He recently left AGAINST MEDICAL ADVICE with similar complaints earlier this month.
Apparently he noticed that his insulin pump was not working around 4 PM. Since then he has been having continuous nausea and vomiting.
Denies fever, chills or chest pain. Denies nausea vomiting or diarrhea.
Reports some abdominal discomfort as well.
He missed dialysis prior to admission.
Apparently was binge drinking yesterday drank about half a bottle of liquor. He states that he usually does not drink regularly.
Denies any drug ingestion.
On admission laboratories consistent with significant hyponatremia and metabolic acidosis. Blood glucose initially on the thousands.
Past Medical History
Past Medical History: Other (See assessment and plan section)
Social History
Tobacco: Smoker
Alcohol: Binge Drinker
Drug: None
Personal: Single
Family History
Family History: Reviewed & Not Pertinent
Allergies / Home Medications
Allergies
Allergy/AdvReac Type Severity Reaction Status Date / Time
shellfish derived Allergy Hives Verified 01/17/24 18:25
Home Medications
Medication Instructions Recorded Confirmed Last Taken Type
amlodipine 10 mg tablet 10 mg PO DAILY Blood pressure 04/22/21 01/10/24 01/04/24 History
carvedilol 25 mg tablet (Coreg) 25 mg PO BID Blood pressure 04/22/21 01/10/24 01/04/24 History
furosemide 40 mg tablet 40 mg PO BID Fluid 04/22/21 01/10/24 01/04/24 History
retention/Swelling
metoclopramide HCl 10 mg tablet 10 mg PO TIDPRN PRN nausea 04/07/23 01/10/24 01/04/24 History
(Reglan)
oxcarbazepine 150 mg tablet 150 mg PO DAILY Mental 07/24/23 01/10/24 01/04/24 History
Health/Anxiety
insulin aspart U-100 100 unit/mL 70 unit SC .VIA PUMP 01/05/24 01/10/24 01/05/24 History
subcutaneous solution (Novolog
U-100 Insulin aspart)
trazodone 50 mg tablet 25 mg PO HS 01/05/24 01/10/24 01/04/24 History
Review of Systems
-
History Source: Patient
All other systems: Negative unless noted
Vitals / Labs / Diagnostic Testing
Vital Signs
Temp Pulse Resp BP Pulse Ox
98.4 F 89 22 178/95 99
01/18/24 08:05 01/18/24 11:45 01/18/24 11:45 01/18/24 11:38 01/18/24 11:48
Lab Data
01/17/24 18:33
Diagnostic Testing:
Physical Exam
-
HEENT: Normocephalic
Cardiovascular: S1/S2
Respiratory: Clear and Non-Labored Respirations
GI: Soft, Non Distended and Tender (Mildly)
Neurology: Awake, Alert, Oriented and AO x 3
Skin: Warm
General: Respiratory Distress (n)
Assessment
-
Patient is a 33 year old M with PMH significant for ESRD on HD and DM-I who presents to [facility] with nausea vomiting abdominal pain. Found to be in DKA. Started on insulin drip. Transferred to the critical care unit for DKA protocol. He also
missed dialysis and was volume overloaded.
Diabetes ketoacidosis-triggered by alcohol intake, compounded with insulin pump malfunction.
Nausea and vomiting secondary to above
Volume overload secondary to missed dialysis and dietary indiscretion
Hyponatremia-likely hypervolemic
Conditions present prior to admission:
Hospital admission [facility] DKA-left AMA 01/10/2024
Chronic respiratory failure
On home O2 2L for last 2-3 m, given at [facility], unknown reason, does not know rec schedule of O2 use
Chronically elevated BNP since at least April 2021
R pleural effusion on abd CT 06-27-23, moderate, dependent, with associated compressive atelectasis at posterior RLL
Reportedly R thoracentesis at [facility] 2 wks [employer] in Jun 2023, 'not infected', does not know more information
Ascites
IDDM, dx at age 13, with microvascular complications (retinopathy, nephropathy, neuropathy), multiple small wounds on arms and legs(*), gastroparesis.
On insulin pump
ESRD on HD MWF ([facility])
Past PD since late 2019 till changed to HD
Peritoneal fluid cx 04-22-21 (apparently from PD catheter as there is no documentation of paracentesis at EMR): G stain/cx negative, PMN 8.7% of 69 wbc
Reported h/o HF while adm to [facility] 2 y [employer] for complications of DM
HTN
Appendectomy
Chronic anemia
Reported history of PE 3 years ago, treated 6m OAC
Chronic abd pain
Constipation
Anxiety/Depression
Narcotic seeking behavior
Denies illicit drug use (*cannot rule out some of skin lesions could be track jefferson)
R eye legally blind (DM retinopathy)
Smoker: 0.5 ppd since age 16
Assessment and plan:
Unfortunately, this patient is difficult as his compliance is not great.
Missed dialysis - he is volume overloaded.
-
Reports possible insulin pump malfunction.
Presentation consistent with diabetes ketoacidosis-blood sugars over 1000 likely due to his dialysis status.
DKA protocol started-insulin infusion was given-blood glucose significantly improved.
Status post hemodialysis
Last BMP showed resolution of metabolic acidosis..
Anion gap has been closed
-
Would transition to subcu insulin Lantus and prandial coverage. (Defer to primary team)-continue insulin drip for now currently at 0.5 units/h.
Okay to advance diet from my perspective
Diabetes nurse education tomorrow morning to transition back to his insulin pump.
-
Abdominal pain due to DKA.
Abdomen CT without acute abnormalities. Has ascites which is chronic has a pleural effusion which is chronic
Continue with current therapy.
Try to minimize narcotic.
-
Hemodynamically stable, not requiring pressors.
-
Patient received again another dialysis treatment on 01/19/2024. He is volume overloaded.
Nephrology following.
Poor compliant with diet
Drinking alcohol
-
Smoking cessation encouraged.
Not bronchospastic on exam.
Chest x-ray without acute infiltrates.
-
No signs/symptoms suspicious for infectious etiology at this time.� Monitor off antibiotics.
-
DVT prophylaxis-heparin subcu.
-
Once patient is transition to subcu insulin, will transfer to [facility].
If transferred to [facility] critical care team will sign off.

Diagnostic Data
Chest X-Ray:
01/17/2024: Chronic right pleural effusion noted. Small to moderate.
CXR 07-14-23 c/w 05-16-23: chronic elevation R diaphragm, increased prominence of R>>L hilar vessels, chronic pulm vasc congestion, blurred R diaphragm/effusion but no clear cut infiltrate
CXR 05-16-23 (PA/lat) c/w 04-07-23 (portable), no other films available for comparison. Prominent R hilar vessels, mild cephalization of vessels, moderately elevated R hemidiaphragm, lateral with R posterior PF. Initial film with moderate pulm vasc
congestion and suspected R basilar infiltrate vs atelectasis
-
CT abdomen pelvis 01/18/2024:
Overall mild abdominopelvic ascites. Significantly progressed.
Moderate fecal material in the colon. Progressed
Moderate hepatomegaly. Stable
Large right pleural effusion. Progressed
Bilateral lower lobe and right middle lobe consolidation as described above. Stable
-
CT AP 01/05/24- 1). There is small moderate bowel wall thickening, most prominent in the left abdomen where there is hazy ground glass inflammatory change in the adjacent fat consistent with small bowel enteritis.
2). There is a small amount of ascites in the pelvis
3). There is cholelithiasis
4). There is moderate right pleural effusion with associated compressive atelectasis at the right lung base.
CT Scan: CTA 07/14/23- IMPRESSION:
1. No CTA evidence for an acute pulmonary thromboembolism.
2. Moderate right pleural effusion with adjacent right lower lobe compressive atelectasis. Mild left lower lobe atelectasis.
Echo:
TTE 06-30-23 (no baseline available) with flattened septum in diastole ('D'-shaped left ventricle) consistent with RV volume overload, enlarged RV size, severe TR, ePASP 60-65 mmHg and RA 3 mmHg
Signed AMA before UDS, ROSE MARY doppler and chest CTA
PFT's:
Reports and relevant images were personally reviewed.
[2024-01-18 13:59] LABS: Glucose - Point of Care 107 mg/dl (70-99)
--- NOTE | 2024-01-18 14:20 | PTCARENOTE ---
Update with Senior [employer] Network Engineer team, update with Hospitalist and follow up with pharmacy. Continue plan to transition to insulin coverage. Will follow up patient concerns. Reviewed and discussed with patient at length. Patient stating, will need to insulin
set up, and new device for monitoring, Doesn't believe pump has been working. Also stated that he can get his mother involved if needed to help. Continue ongoing plan of cares, will follow insulin transition and diet transition. Follow up
medications with pharmacy and evaluate via Emar. Continnue hourly safety rounds, frequent patient safety checks and call luevano in use.
[2024-01-18] MEDS: LANTUS 0.149999999999999994 UNITS SC (14:48)
--- NOTE | 2024-01-18 15:07 | W.PN.HOSP.TC ---
Addendum entered and electronically signed by Maycol Miramontes MD 01/26/24 17:03:
[id number]
Original Note:
Today's Communication/Plan
-
Transition off insulin drip, on to subcutaneous insulin
DM educator for insulin management
HD per nephro
F/u BMP this evening once ggt stopped
Assessment / Plan
Assessment / Plan
HEENT: Normocephalic
Cardiovascular: S1/S2
Respiratory: Clear and Non-Labored Respirations
GI: Soft, Non Distended and Tender (Mildly)
Neurology: Awake, Alert, Oriented and AO x 3
Skin: Warm
General: Respiratory Distress (n)
1. DKA - DKA secondary to loss of insulin pump function.�
-Patient states he needed a new battery, now same pump is not working�appears to obviously have a component of noncompliance
-Gap closed status post HD
� Transition to long-term insulin, Lantus now
� Stop insulin drip 2 hours after subcutaneous Lantus given
� Follow-up BMP to ensure gap remains closed
� Continue insulin sliding scale, 5 units aspart 3 times daily with meals
� Diabetic SUPER[employer] tomorrow morning is of utmost importance
-DM diet
-Planfor HD tomorrow
2. ESRD - HD M/W/F via left UE AVF.� Last HD Friday.� Mild hypervolemia on exam.
- HD today and tentative HD tomorrow
3. ETOH - Endorsed only binge drinking.� Denies regular etoh intake and denies h/o withdrawal
- [facility] protocol for now
4. HTN
- continue amlodpine and carvedilol per home
5. Hyponatremia
-monitor with hd
DVT PPX - heparin sq
�
Anticipated Discharge: Within 24 hours
Subjective/Interval History
-
Date of Service: January 18, 2024
Dialysis today, transition to subcu insulin
Objective Data
-
Labs:
Laboratory Results
01/18/24 01/18/24 01/18/24
03:06 03:06 08:06
Sodium 131 L 134 L
Potassium 4.5 4.7
Chloride 92 L 92 L
Carbon Dioxide 24 25
BUN 63 H 69 H
Creatinine 6.7 H* 7.1 H*
Glucose 391 H Cancelled 115 H
Calcium 7.6 L 7.9 L
01/18/24
11:27
Sodium 135
Potassium 3.0 L D
Chloride 95 L
Carbon Dioxide 30
BUN 20
Creatinine 2.4 H
Glucose 107 H
Calcium 8.0 L
Vital Signs:
Vital Signs
Temp Pulse Resp BP Pulse Ox
99.1 F 99 21 161/92 90
01/18/24 12:49 01/18/24 14:15 01/18/24 14:15 01/18/24 13:49 01/18/24 14:19
I&O
01/17/24 01/18/24 01/19/24
06:59 06:59 06:59
Intake Total 123.0 / 123.0
Balance 123.0 / 123.0
Review of Systems
-
History Source: Patient
All other systems: Not reviewed unless documented
Data Reviewed
-
CT Scan: Image personally visualized and interpreted and Report Reviewed by me
Labs: Labs Reviewed by me
[2024-01-18] MEDS: NOVOLOG FLEXPEN-HIGH RESISTANCE 1 UNITS SC (15:49)
[2024-01-18] MEDS: NOVOLOG FLEXPEN 5 UNITS SC (15:49)
[2024-01-18 15:59] LABS: Glucose - Point of Care 124 mg/dl (70-99)
[2024-01-18] MEDS: DEXTROSE 50% SYRINGE 12.5 GRAMS IV ×2 (17:27→17:46)
--- NOTE | 2024-01-18 17:32 | PTCARENOTE ---
Updates with hospitalist team and software consultant. Patient dressed and trying to leave icu. States he's had enough of this. Staff at bedside, review events of day, events of past week admission, reinforce teaching, discuss accu data results thru day.
Patient wants iv pain meds for abdominal pain. Reinforce that patient had slept thru entire day. Discuss diet and diabetic teaching. Labs were collected accu check at that time 47. Treated via hypoglycemic protocol. Patient having juice and
encouraged to eat again, requesting to talk to doctors. Will follow post protocol. Continue with teaching.
[2024-01-18 17:39] LABS: Glucose - Point of Care 47 mg/dl (70-99)
[2024-01-18 17:49] LABS: Blood Urea Nitrogen 24 mg/dl (9-20); Calcium 6.7 mg/dl (8.4-10.2); Carbon Dioxide 25 mmol/L (22-30); Chloride 103 mmol/L (98-107); Estimated Creatinine Clearance 33 ml/min; Glucose 50 mg/dl (70-99); Potassium 2.7 mmol/L (3.5-5.1); Sodium 136 mmol/L (135-145); eGFR 27.44
[2024-01-18 17:56] LABS: Glucose - Point of Care 68 mg/dl (70-99)
[2024-01-18] MEDS: KCL 40 MEQ PO (18:12)
[2024-01-18 18:13] LABS: Glucose - Point of Care 118 mg/dl (70-99)
--- NOTE | 2024-01-18 18:18 | W.PN.UPDATE ---
Update Note
Progress Note Update
I was called by patient's nurse with reason being that the patient wanted to sign out against medical advice. He was transitioned off insulin gtt earlier today. Discussed case with patient's nurse.
I fully discussed patient's case with the patient, and fully explained to him the risks of leaving against medical advice, up to and including . Patient insisted that he leave now and he expressed understanding of the risks of leaving against
medical advice. Patient was advised to follow-up with his dialysis appointment tomorrow where he can get his labwork rechecked.
--- NOTE | 2024-01-18 18:25 | PTCARENOTE ---
Calls to Nephrology, hospitalist and database management specialist team. Hospitalist at bedside. Discussed at length risks and health concerns. Replete potassium as per renal. Hospitalist at length at bedside discussing risks of ama without complete treatment.
Patient states show me the door I'm out of here. Also says he will go to HD treatment in [place] tomorrow for regular treatment. Paper work to chart. Medications as per renal and updated with pharmacy. Patient ripped off bands and states if I
have problems I'll go some where else. Hospitalist remained in [facility] and updated. Security and nursing techn updated.
== END 2024-01-18 18:25 | disposition left against medical advice (07) | DRG 637 ==
LOC: ICU 21:17
PROVIDERS: Nurse Practitioner Primary Care; ADMITTING PHYSICIAN Internal Medicine; ATTENDING PHYSICIAN Internal Medicine; CONSULT PHYSICIAN Internal Medicine; EMERGENCY PHYSICIAN Emergency Medicine; FAMILY PHYSICIAN Internal Medicine; OTHER PHYSICIAN Internal Medicine Critical Care Medicine
PROC: 5A1D70Z Performance of Urinary Filtration, Intermittent, Less than 6 Hours Per Day (ICD-10-PCS; 2024-01-18)
DX: E10.10 Type 1 diabetes mellitus with ketoacidosis without coma (principal); N18.6 End stage renal disease; I13.2 Hypertensive heart and chronic kidney disease with heart failure and with stage 5 chronic kidney disease, or end stage renal disease; J98.11 Atelectasis; E87.1 Hypo-osmolality and hyponatremia; T85.614A Breakdown (mechanical) of insulin pump, initial encounter; J96.10 Chronic respiratory failure, unspecified whether with hypoxia or hypercapnia; I50.9 Heart failure, unspecified; E10.22 Type 1 diabetes mellitus with diabetic chronic kidney disease; I27.20 Pulmonary hypertension, unspecified; F17.210 Nicotine dependence, cigarettes, uncomplicated; E10.319 Type 1 diabetes mellitus with unspecified diabetic retinopathy without macular edema; E10.43 Type 1 diabetes mellitus with diabetic autonomic (poly)neuropathy; K21.9 Gastro-esophageal reflux disease without esophagitis; D63.1 Anemia in chronic kidney disease; E21.3 Hyperparathyroidism, unspecified; F32.A Depression, unspecified; Y74.2 Prosthetic and other implants, materials and accessory general hospital and personal-use devices associated with adverse incidents; K31.84 Gastroparesis; F41.9 Anxiety disorder, unspecified; I07.1 Rheumatic tricuspid insufficiency; G89.29 Other chronic pain; K59.00 Constipation, unspecified; Z99.2 Dependence on renal dialysis; Z79.4 Long term (current) use of insulin; Z96.41 Presence of insulin pump (external) (internal); Z91.013 Allergy to seafood; Z76.5 Malingerer [conscious simulation]; Z86.718 Personal history of other venous thrombosis and embolism; Z86.711 Personal history of pulmonary embolism; Z91.148 Patient's other noncompliance with medication regimen for other reason
CPT/HCPCS: 71045; 74176; 80048; 80053; 82077; 82947; 82962; 83690; 83735; 85025; 93005; 96374; 96375; 96376; 99291; 99406; G0257; P9047; Q5106

== ENCOUNTER 2024-01-28 01:50 | Emergency (ER) | payer OTHER, SELFPAY ==
--- NOTE | 2024-01-28 03:27 | ED.GENMED ---
History of Present Illness
<Jaime Burdick DO - Last Filed: 01/28/24 06:02>
General
Chief Complaint: Blood Sugar Problem
<Speedy Stewart Jr., PA-C - Last Filed: 01/28/24 12:35>
General
Source: patient and ambulance crew
Exam Limitations: none
Nursing documentation reviewed up to this point in time: agreed with
History of Present Illness
History of Present Illness:
Patient presented to the emergency department today with concerns of left lower quad abdominal pain starting roughly 18 hours prior to arrival to the emergency department.� Has associated nausea and vomiting.� Does have a history of end-stage renal
disease last dialysis session 2 days ago has scheduled dialysis session later today.� Additional history of diabetes blood sugar in the 300s en route via EMS.
Past History
<Jaime Burdick DO - Last Filed: 01/28/24 06:02>
Past History
ED Past Medical History: CHF, HTN, IDDM, Renal failure (Dialysis M-W-F) and Other (ESRD, PE, Contipation, ESRD, TR, pulmonary hypertension, congestive heart failure, etc.)
ED Past Surgical History: Appendectomy and Other (Left AV fistula, biliary drain)
Patient has exhibited threatening behavior?: No
PSI?: No
Social History
Tobacco: Smoker
Alcohol: None
Drug: None
Personal: Single
Living: with family
Employment: Other
Family History
Family History: Other
Review of Systems
<Speedy Stewart Jr., PA-C - Last Filed: 01/28/24 12:35>
Review of Systems
Allergies reviewed?: Yes
All Other Systems: ROS reviewed and negative except as documented in HPI and ROS
Phy Exam
<Speedy Stewart Jr., PA-C - Last Filed: 01/28/24 12:35>
Physical Exam
Physical Exam:
GENERAL: Alert , in no apparent distress
EYE: pupils equal and reactive
NECK: Supple, no significant adenopathy.
ENT: o/p clr, mmm.
CARDIAC: Regular rate and rhythm .
LUNGS: Clear breath sounds bilaterally, no acute respiratory distress, no wheezes/rales/rhonchi
ABDOMEN: Mildly distended abdomen mild tenderness throughout the abdomen maximal to the left lower quadrant.
NEUROLOGICAL: Alert and oriented, no focal neuro deficits
SKIN: Warm and dry, skin intact.
MUSCULOSKELETAL: No edema, well perfused.
PSYCH: Normal and appropriate interaction.
Course
<Jaime Burdick, DO - Last Filed: 01/28/24 06:02>
Orders/Labs/Results
Orders:
Orders
01/28/24
Electrocardiogram (*1) Stat
Reason for Study: Chest Pain
Comment: DONE NO ORDER ENTERED
01/28/24 02:05
Complete Blood Count/With Diff Routine
Comprehensive Metabolic Panel Routine
Lactic Acid Routine
Lipase Routine
01/28/24 03:29
Diphenhydramine [Benadryl] 12.5 mg IV NOW STA
01/28/24 03:52
Diphenhydramine [Benadryl] 50 mg .ROUTE .STK-MED ONE
01/28/24 04:03
Insulin Aspart [NOVOLOG vial] 10 units SC NOW STA
01/28/24 04:15
CT Abd/pel Without Iv Or Oral Urgent
Comment:
Reason For Exam: abdominal pain
01/28/24 05:09
Bedside Glucose- Treatment ONCE
Morphine Sulfate 4 mg IV NOW STA
Abnormal Lab Results
01/28/24 01/28/24 01/28/24
02:00 02:05 05:38
RBC 3.11 L 10^6/uL
(4.70-6.10)
Hgb 10.5 L g/dL
(13.0-18.0)
Hct 32.3 L %
(39.0-52.0)
MCV 103.9 H fL
(80.0-94.0)
MCH 33.8 H pg
(27.0-31.0)
MCHC 32.5 L g/dL
(33.0-37.0)
RDW 18.6 H %
(11.5-14.5)
Abs Immat Gran (auto) 0.1 H 10^3/uL
(0-0.05)
Absolute Lymphs (auto) 1.0 L 10^3/uL
(1.2-3.4)
Immature Gran % 2.1 H %
(0-0.5)
Lymphocytes % 19.3 L %
(20.5-51.1)
Sodium 132 L mmol/L
(135-145)
BUN 50 H mg/dl
(9-20)
Creatinine 5.4 H* mg/dL
(0.7-1.3)
Glucose 434 H mg/dl
(70-99)
Alkaline Phosphatase 133 H U/L
(38-126)
POC Glucose 422 H mg/dl 344 H mg/dl
(70-99) (70-99)
01/28/24 02:05
01/28/24 02:05
Vital Signs
Initial and Last Documented VS:
Initial Vital Signs
Pulse Resp Pulse Ox
103 19 96
01/28/24 05:23 01/28/24 05:23 01/28/24 05:23
Last Documented Vital Signs
Pulse Resp BP Pulse Ox
101 16 193/95 94
01/28/24 06:10 01/28/24 06:10 01/28/24 06:10 01/28/24 06:10
<Speedy Stewart Jr., SHU - Last Filed: 01/28/24 12:35>
Orders/Labs/Results
Orders:
Orders
01/28/24
Electrocardiogram (*1) Stat
Reason for Study: Chest Pain
Comment: DONE NO ORDER ENTERED
01/28/24 02:05
Complete Blood Count/With Diff Routine
Comprehensive Metabolic Panel Routine
Lactic Acid Routine
Lipase Routine
01/28/24 03:29
Diphenhydramine [Benadryl] 12.5 mg IV NOW STA
01/28/24 03:52
Diphenhydramine [Benadryl] 50 mg .ROUTE .STK-MED ONE
01/28/24 04:03
Insulin Aspart [NOVOLOG vial] 10 units SC NOW STA
01/28/24 04:15
CT Abd/pel Without Iv Or Oral Urgent
Comment:
Reason For Exam: abdominal pain
01/28/24 05:09
Bedside Glucose- Treatment ONCE
Morphine Sulfate 4 mg IV NOW STA
Abnormal Lab Results
01/28/24 01/28/24 01/28/24
02:00 02:05 05:38
RBC 3.11 L 10^6/uL
(4.70-6.10)
Hgb 10.5 L g/dL
(13.0-18.0)
Hct 32.3 L %
(39.0-52.0)
MCV 103.9 H fL
(80.0-94.0)
MCH 33.8 H pg
(27.0-31.0)
MCHC 32.5 L g/dL
(33.0-37.0)
RDW 18.6 H %
(11.5-14.5)
Abs Immat Gran (auto) 0.1 H 10^3/uL
(0-0.05)
Absolute Lymphs (auto) 1.0 L 10^3/uL
(1.2-3.4)
Immature Gran % 2.1 H %
(0-0.5)
Lymphocytes % 19.3 L %
(20.5-51.1)
Sodium 132 L mmol/L
(135-145)
BUN 50 H mg/dl
(9-20)
Creatinine 5.4 H* mg/dL
(0.7-1.3)
Glucose 434 H mg/dl
(70-99)
Alkaline Phosphatase 133 H U/L
(38-126)
POC Glucose 422 H mg/dl 344 H mg/dl
(70-99) (70-99)
01/28/24 02:05
01/28/24 02:05
Vital Signs
Initial and Last Documented VS:
Initial Vital Signs
Pulse Resp Pulse Ox
103 19 96
01/28/24 05:23 01/28/24 05:23 01/28/24 05:23
Last Documented Vital Signs
Pulse Resp BP Pulse Ox
101 16 193/95 94
01/28/24 06:10 01/28/24 06:10 01/28/24 06:10 01/28/24 06:10
<Speedy Stewart Jr., PA-C - Last Filed: 01/28/24 12:35>
MDM/Problems Addressed
MDM/Problems Addressed:
31-year-old male presenting to the emergency department today with concerns of abdominal pain throughout the day nausea and vomiting as well. Plan for CT scan for further assessment of abdominal discomfort. Otherwise here labs showing elevated
sugar level but no signs of DKA significant elevated creatinine consistent with his end-stage renal disease. CT scan without specific findings
<Speedy Stewart Jr., PA-C - Last Filed: 01/28/24 12:35>
*Critical Care Note
Total Time (30-74mins, 75-104mins- exclusive of procedures): Not Applicable
<Jaime Burdick DO - Last Filed: 01/28/24 06:02>
Update Note
Update Note:
CT abdomen and pelvis without intravenous contrast
IMPRESSION:
Suboptimal exam without intravenous contrast.
Volume overload with large right pleural effusion and small volume ascites, similar to recent CT 01/17/2024.
Mild cardiomegaly. Gallbladder edema. Limited assessment of the pancreas. Renal atrophy without obstructing stone. No bowel obstruction. Bladder decompressed. Diffuse anasarca. Nominal aorta is of normal caliber with diffuse atherosclerotic
disease.
01/28/2024 0554 AM: Patient states he is feeling much better. Did offer him admission as he needs dialysis. He has an appointment scheduled for this morning and wishes to be discharged to go to that dialysis appointment. I did discuss return to ER
instructions with patient. I feel that she will return as needed.
ED Attending Note
<Jaime Burdick DO - Last Filed: 01/28/24 06:02>
-
Portions of this chart may have been created with voice recognition software.� Occasional wrong word or��sound alike� substitutions may have occurred due to the inherent limitations of voice recognition software.
Discharge Plan
Departure
Patient Disposition: Home (Routine Discharge)
Date of Disposition: 01/28/24
Time of Disposition: 05:55
Patient with high blood pressure during this ER visit?: Yes
Condition: Good
Discharge Problem:
Hyperglycemia due to diabetes mellitus, End-stage renal disease (ESRD), Abdominal pain
Prescriptions:
No Action
furosemide 40 MG tablet
40 mg PO BID
carvedilol [Coreg] 25 MG tablet
25 mg PO BID
amlodipine 10 MG tablet
10 mg PO DAILY
metoclopramide HCl [Reglan] 10 mg Tablet
10 mg PO TIDPRN PRN (Reason: nausea)
oxcarbazepine 150 mg tablet
150 mg PO DAILY
trazodone 50 mg Tablet
25 mg PO HS
insulin aspart U-100 [Novolog U-100 Insulin aspart] 100 unit/mL solution
70 unit SC .VIA PUMP
Referrals:
Casper Arroyo MD [Family Provider] -
Interventions
Interventions:
*Nursing Disposition Last Done: 01/28/24 06:10
Discharge Date and Time
Discharge Date/Time: 01/28/24 06:10
Print Language: PERUVIAN
--- NOTE | 2024-01-28 03:32 | DOWNTIME ---
There was a [facility] Nurse Downtime on 01/28/2024 from 0100 to 01/28/2024 at 0322. Downtime documentation of patient's care, including medication administrations, has been reconciled in the electronic record per guidelines. Refer to the
patient's paper chart under the miscellaneous tab to see printed paper medication records and downtime forms.
[2024-01-28 03:53] LABS: ALT (SGPT) 36 U/L (0-50); AST (SGOT) 51 U/L (17-59); Albumin 3.6 g/dl (3.5-5.0); Alkaline Phosphatase 133 U/L (38-126); Blood Urea Nitrogen 50 mg/dl (9-20); Calcium 9.1 mg/dl (8.4-10.2); Carbon Dioxide 25 mmol/L (22-30); Chloride 98 mmol/L (98-107); Glucose 434 mg/dl (70-99); Lactic Acid 1.9 mmol/L (0.7-2.0); Lipase 185 U/L (23-300); Potassium 4.6 mmol/L (3.5-5.1); Sodium 132 mmol/L (135-145); Total Bilirubin 0.6 mg/dl (0.2-1.3); Total Protein 6.3 g/dl (6.3-8.2); eGFR 13.55
[2024-01-28] MEDS: BENADRYL 12.5 MG IV (03:53)
[2024-01-28 03:54] LABS: % Basophils 0.6 % (0-2); % Eosinophils 0.9 % (0-6); % Immature Granulocytes 2.1 % (0-0.5); % Lymphocytes 19.3 % (20.5-51.1); % Monocytes 8.8 % (1.7-9.3); % Neutrophils 68.3 % (42.2-75.2); Absolute Eosinophils 0.1 10^3/uL (0-0.7); Absolute Immature Granulocytes 0.1 10^3/uL (0-0.05); Absolute Monocytes 0.5 10^3/uL (0.1-0.6); Absolute Neutrophils 3.6 10^3/uL (1.4-6.5); Hematocrit 32.3 % (39.0-52.0); Hemoglobin 10.5 g/dL (13.0-18.0); Mean Corp Hgb Conc. 32.5 g/dL (33.0-37.0); Mean Corpuscular Hgb 33.8 pg (27.0-31.0); Mean Corpuscular Volume 103.9 fL (80.0-94.0); Mean Platelet Volume 9.3 fL (7.4-10.4); Nucleated Red Blood Cells % 0 % (-); Platelet Count 284 10^3/uL (130-400); Red Blood Cell Count 3.11 10^6/uL (4.70-6.10); Red Cell Dist. Width 18.6 % (11.5-14.5); White Blood Cell Count 5.3 10^3/uL (4.8-10.8)
[2024-01-28 03:55] LABS: Anisocytosis 1+; Macrocytosis 1+; Normal RBC Morphology No; Ovalocytes 1+; Tear Drop Red Blood Cells Slight
[2024-01-28] MEDS: NOVOLOG vial 10 UNITS SC (04:12)
[2024-01-28] MEDS: MORPHINE SULFATE 4 MG IV (05:15)
[2024-01-28 05:40] LABS: Glucose - Point of Care 344 mg/dl (70-99)
[2024-01-28 06:09] VITALS: BP 193/95
[2024-01-28 06:10] VITALS: BP 193/95
[2024-01-28 09:03] LABS: Glucose - Point of Care 422 mg/dl (70-99)
== END 2024-01-28 06:10 | disposition home or self-care (01) ==
LOC: EMR 01:50
PROVIDERS: EMERGENCY PHYSICIAN Student in an Organized Health Care Education/Training Program; FAMILY PHYSICIAN Internal Medicine
DX: E11.65 Type 2 diabetes mellitus with hyperglycemia (principal); E11.22 Type 2 diabetes mellitus with diabetic chronic kidney disease; N18.6 End stage renal disease; R10.9 Unspecified abdominal pain; F17.200 Nicotine dependence, unspecified, uncomplicated; I10 Essential (primary) hypertension; I51.7 Cardiomegaly; N26.1 Atrophy of kidney (terminal)
CPT/HCPCS: 99285; 96374; 96375; 96372; 74176; 80053; 82962; 83605; 83690; 85025; 93005

== ENCOUNTER 2024-01-31 21:02 | Inpatient (IN) | payer OTHER, SELFPAY ==
[2024-01-31] VITALS (9 sets, daily range): BP systolic 151–189; BP diastolic 96–112; BMI 23.8
[2024-01-31 18:12] LABS: Glucose - Point of Care 379 mg/dl (70-99)
--- NOTE | 2024-01-31 18:16 | ED.GENMED ---
History of Present Illness
General
Chief Complaint: Abdominal Pain
Source: patient
Exam Limitations: none
Time Seen by Provider: 01/31/24 17:56
Travel History
Have you had any contact with someone who has COVID-19?: No
Do you have any symptoms of coronavirus? Fever > 100 degrees, chills, cough, shortness of breath, sore throat, loss of taste or smell, muscle aches, or headache?: No
History of Present Illness
History of Present Illness:
This is a 33 year old male that comes in with c/o abd pain and SOB. States that he was here on the and had a CT scan. States that he has had constant abd pain today. States that he is SOB, nauseated and vomited once. Denies any fever, chills,
chest pain, diarrhea, headache, dizziness, urinary burning.
Past History
Past History
ED Past Medical History: CHF, HTN, IDDM, Renal failure (Dialysis M-W-) and Other (ESRD, PE, Contipation, ESRD, TR, pulmonary hypertension, congestive heart failure, etc.)
ED Past Surgical History: Appendectomy and Other (Left AV fistula, biliary drain removed)
Patient has exhibited threatening behavior?: No
PSI?: No
Social History
Tobacco: Smoker
Alcohol: None
Drug: None
Personal: Single
Living: with family
Employment: Other
Family History
Family History: Other
Review of Systems
Review of Systems
All Other Systems: ROS reviewed and negative except as documented in HPI and ROS
Constitutional: Reports no symptoms; Denies fever or chills
EENT: Reports no symptoms
Respiratory: Reports trouble breathing; Denies cough
Cardiac: Reports no symptoms; Denies chest pain
ABD/GI: Reports abdominal pain, nausea and vomiting; Denies diarrhea
: Reports no symptoms
Musculoskeletal: Reports no symptoms
Skin: Reports no symptoms
Neurological: Reports no symptoms; Denies dizzy or headache
Psychiatric: Reports no symptoms
Phy Exam
General Physical Exam
General Presentation: mild distress
General age: appears stated age
General Skin: warm and dry
General Habitus: normal
General Mental: alert
General Hydration: appears well hydrated
ENT Exam
ENT Exam: TM's normal, pharynx normal and neck supple
Eye Exam
Eye Exam: EOMI
Cardiovascular Exam
Cardiovascular Exam: regular rate/rhythm and normal peripheral pulses
Pulmonary Exam
Pulmonary Exam: chest non tender, no rhonchi, no wheezing, no cough and decreased breath sounds (Right base with fine rales at bases)
Gastrointestinal Exam
Gastrointestinal Exam: soft, no organomegaly, no pulsatile mass, ascites (Slight) and tender (Generalized abd tenderness with palpation)
Musculoskeletal Exam
Musculoskeletal Exam: full ROM and edema (Nonpitting in the lower extremities )
Skin Exam
Skin Exam: normal color, warm/dry, no rash, no petechia and other (Healing left proximal lateral leg wound Negative for any redness,, Left upper arm fistula with good bruits and thrill)
Psychiatric Exam
Psychiatric Exam: normal mood/affect
Course
Orders/Labs/Results
Orders:
Orders
01/31/24 18:06
US Abdomen Complete/Upper Urgent
Comment: Please also check ascites
Reason For Exam: Generalized abd pain
01/31/24 18:08
Morphine Sulfate 4 mg IV NOW STA
Ondansetron Injectable [Zofran] 4 mg IV NOW STA
01/31/24 18:17
CR Chest - 2 Views Urgent
Comment:
Reason For Exam: SOB
01/31/24 18:34
Complete Blood Count/With Diff Urgent
Comprehensive Metabolic Panel Urgent
LDH Urgent
Comment: ADD ON
Lactic Acid Q4H
Comment: CANCEL 2nd LACTIC ACID IF 1st LACTIC ACID IS LESS THAN 2
NT-proBNP Urgent
Troponin I Urgent
Blood Culture Q30M
VAISHALI Source: Blood/Venous
Specimen Description:
01/31/24 18:49
Blood Culture Q30M
VAISHALI Source: Blood/Venous
Specimen Description:
01/31/24 20:00
Piperacillin/Tazo 3.375 Gram [Zosyn] 3.375 gram in 50 ml IV NOW
01/31/24 20:23
Morphine Sulfate 4 mg IV NOW STA
01/31/24 20:47
Admit/Transfer Patient As Directed
Co-Sign Provider:
Level of Care: Inpatient admission
Assign to:: Telemetry
Physician / Group: [email or web address]
Diagnosis: Anasarca Volume overload ,Persistent abdominal pain with reureent N/V
Reason for Telemetry: Acute Heart Failure
Date to Stop Telemetry: 02/03/24
Time to Stop Telemetry: 11:00
Reason for Hospitalization: Persistent abdominal pain with reureent N/V
Anasarca
Volume overload
Expected length of stay greater than two midnights?: Yes
ELOS- Estimated Length of Stay in days: 3
I certify the patient meets the requirements for IP care: Yes
01/31/24 20:51
Code Status As Directed
Resuscitation Status: Full Code
01/31/24 21:02
B-Hydroxybutyrate Urgent
Lactic Acid Q4H
Comment: CANCEL 2nd LACTIC ACID IF 1st LACTIC ACID IS LESS THAN 2
Prothrombin Time Urgent
01/31/24 21:42
Dextrose 50%-Water [Dextrose 50% Syringe] 12.5 grams IV [id number] PRN
Glucagon [GlucaGen] 1 mg IM PRN PRN
HYDROmorphone [Dilaudid] 0.25 mg IV Q4HPRN PRN
HydrALAZINE [Apresoline] 10 mg IV Q4HPRN PRN
Ondansetron Injectable [Zofran] 4 mg IV Q6HPRN PRN
01/31/24 21:42
Activity As Directed
Activity Level: With Assistance
Bedside Glucose Monitoring As Directed
Frequency: AC&HS
Comment: Change to q6h if pt on TPN, tube feeding or not eating
Intake/ Output As Directed
Frequency: Per unit guidelines
Vital Signs As Directed
Frequency: Per unit guidelines
Weight As Directed
Frequency: Daily
DX Deep Vein Thrombosis Video Routine
02/01/24 07:30
Insulin Aspart Corrective Low [Novolog Flexpen-Low Resistance] See Protocol SC AC
02/01/24 08:00
Amlodipine [Norvasc] 10 mg PO DAILY
Carvedilol [Coreg] 25 mg PO BID
Heparin 5,000 units SC Q12
Piperacillin/Tazo 2.25 Gram [Zosyn] 2.25 gram in 50 ml IV Q12H
02/03/24 11:00
DC Protocol for Telemetry ONCE
Abnormal Lab Results
01/31/24 01/31/24 01/31/24
18:11 18:34 21:02
RBC 3.20 L 10^6/uL
(4.70-6.10)
Hgb 10.6 L g/dL
(13.0-18.0)
Hct 31.9 L %
(39.0-52.0)
MCV 99.7 H fL
(80.0-94.0)
MCH 33.1 H pg
(27.0-31.0)
RDW 17.7 H %
(11.5-14.5)
Absolute Lymphs (auto) 1.0 L 10^3/uL
(1.2-3.4)
Lymphocytes % 17.0 L %
(20.5-51.1)
PT 15.2 H Sec
(11.4-14.6)
Sodium 132 L mmol/L
(135-145)
Chloride 96 L mmol/L
(98-107)
BUN 51 H mg/dl
(9-20)
Creatinine 5.2 H* mg/dL
(0.7-1.3)
Glucose 410 H mg/dl
(70-99)
Alkaline Phosphatase 141 H U/L
(38-126)
Lactate Dehydrogenase 283 H U/L
(120-246)
POC Glucose 379 H mg/dl
(70-99)
01/31/24 18:34
01/31/24 18:34
H/H slightly low. Sodium low. Chloride slightly low. Chronic renal failure. Hyperglycemia. Alk phos elevation. Tropnin 0.017, Pro-BNP >27,000 PT 15.2 with INR 1.22
Vital Signs
Initial and Last Documented VS:
Initial Vital Signs
Pulse Resp BP Pulse Ox
83 16 182/104 94
01/31/24 17:04 01/31/24 17:04 01/31/24 17:04 01/31/24 17:04
Last Documented Vital Signs
Temp Pulse Resp BP Pulse Ox
98.8 F 86 18 151/96 97
01/31/24 21:58 01/31/24 21:58 01/31/24 21:58 01/31/24 21:58 01/31/24 21:58
MDM/Problems Addressed
Differential Diagnosis Includes:
SBP,
MDM/Problems Addressed:
This is a 33 year old male that comes in with c/o abd pain. States that he was here with abd pain on the . States that today he has abd pain and vomiting with nausea and this has been constant all day.
Will check labs. US
Chronic conditions affecting care: Kidney disease
Acute Exacerbation and/or Progression of Chronic Illness: Kidney disease
*Radiology
Radiology exam reviewed: radiology read reviewed (US-Diffusely thickened and edematous gallbladder wall, Probable more likely to be reactive but acalculous cholecystitis is an alternative consideration. Mild abd ascites. Right pleural effusion.
Chest [id number] right pleural effusion with adjacent atelectasis. The left lung is clear. ) and other (Chest cont- NO Pneumothorax. Stable enlargement of the cardiac silhouette. )
*Pulse Oximetry
Patient hypoxic: no
*EKG
Interpreted by ED Provider?: NA
Rate: EKG- N/A
*Assistant [employer] Manager Interpretation
Rate: Assistant [employer] Manager- N/A
*Critical Care Note
Total Time (30-74mins, 75-104mins- exclusive of procedures): Not Applicable
ED Attending Note
-
Portions of this chart may have been created with voice recognition software.� Occasional wrong word or��sound alike� substitutions may have occurred due to the inherent limitations of voice recognition software.
Discharge Plan
Departure
Patient Disposition: Admit
Date of Disposition: 01/31/24
Time of Disposition: 20:05
Admit to: Telemetry
Presentation/result/management discussed w/ accepting MD/DO: Hospitalist
Patient with high blood pressure during this ER visit?: Yes
Condition: Good
Covid-19: Not Applicable
Discharge Problem:
Abdominal pain, Acute cholecystitis, Pleural effusion, right
Interventions
Interventions:
*Risk Screen - Suicide Last Done: 01/31/24 17:04
*General Assessment Last Done: 01/31/24 17:04
*Neglect/Abuse Screening Last Done: 01/31/24 17:04
ED- Fall Risk Assessment Last Done: 01/31/24 17:33
*ED COVID-19 Vaccine History Last Done: 01/31/24 17:04
*Nursing Disposition Last Done: 01/31/24 21:55
[id number] Assessment Last Done: 01/31/24 17:33
Discharge Date and Time
Discharge Date/Time: 01/31/24 21:55
[2024-01-31] MEDS: ZOFRAN 4 MG IV (18:37)
[2024-01-31 18:44] LABS: % Basophils 0.7 % (0-2); % Eosinophils 0.9 % (0-6); % Immature Granulocytes 0.5 % (0-0.5); % Monocytes 7.8 % (1.7-9.3); % Neutrophils 73.1 % (42.2-75.2); Absolute Eosinophils 0.1 10^3/uL (0-0.7); Absolute Monocytes 0.4 10^3/uL (0.1-0.6); Absolute Neutrophils 4.1 10^3/uL (1.4-6.5); Hematocrit 31.9 % (39.0-52.0); Hemoglobin 10.6 g/dL (13.0-18.0); Mean Corp Hgb Conc. 33.2 g/dL (33.0-37.0); Mean Corpuscular Hgb 33.1 pg (27.0-31.0); Mean Corpuscular Volume 99.7 fL (80.0-94.0); Mean Platelet Volume 9.8 fL (7.4-10.4); Nucleated Red Blood Cells % 0 % (-); Platelet Count 310 10^3/uL (130-400); Red Cell Dist. Width 17.7 % (11.5-14.5); White Blood Cell Count 5.7 10^3/uL (4.8-10.8)
[2024-01-31] MEDS: MORPHINE SULFATE 4 MG IV ×2 (18:45→20:47)
[2024-01-31 19:03] LABS: Lactic Acid 0.9 mmol/L (0.7-2.0)
[2024-01-31 19:06] LABS: ALT (SGPT) 49 U/L (0-50); AST (SGOT) 50 U/L (17-59); Albumin 3.7 g/dl (3.5-5.0); Alkaline Phosphatase 141 U/L (38-126); Blood Urea Nitrogen 51 mg/dl (9-20); Calcium 8.9 mg/dl (8.4-10.2); Carbon Dioxide 25 mmol/L (22-30); Chloride 96 mmol/L (98-107); Glucose 410 mg/dl (70-99); Sodium 132 mmol/L (135-145); Total Bilirubin 0.9 mg/dl (0.2-1.3); Total Protein 6.3 g/dl (6.3-8.2); eGFR 14.18
[2024-01-31 19:15] LABS: NT-proBNP > 27000 pg/ml; Troponin I 0.017 ng/ml
--- NOTE | 2024-01-31 20:38 | HPS.HSE ---
Addendum entered and electronically signed by René Rodriguez MD 02/14/24 20:18:
Dictated the summary on 02/14/24
Addendum entered and electronically signed by René Rodriguez MD 02/14/24 20:12:
Update Note per Severino Leon
Progress Note Update
Patient left AMA. He was taken back down to the ED to await an Uber. Encouraged him to follow up with PCP within one week. He has HD scheduled Friday of this coming week. Advised him to come back if he begins to feel worse. He is in agreement.
Dictated By: Adriana Gaona
Dictated Date & Time: 01/31/242303
Original Note:
Family Physician
-
Family Physician: INTERVIEWE UNKNOWN - PT NOT
Chief Complaint
-
Abdominal pain and N/V
History of Present Illness
33M HX HD ( MWF ) dependent ESRD, IDDM on insulin pump, CHF, PHT, currnt smoker who was seen at ER on 01/28/24 for Lt Lt LQ abdominal pain wit N/ V , had CT noted volume overload, large Rt pleurl effusion similar to 01/17/24 CT. He was DC'd tpo f/u
with routine HD.
Today he retuned to ER persistent abdominal pain and SoB. Associated with N/V.
ROS
Denies any fever, chills, chest pain, diarrhea, headache, dizziness, urinary burning.
Medical History
Past Medical History
Past Medical History: Reports Other
Additional Past Medical History:
CHF, HTN, IDDM, Renal failure (Dialysis M-W-) and Other (ESRD, PE, Contipation, ESRD, TR, pulmonary hypertension, congestive heart failure, etc.)
ED Past Surgical History: Appendectomy and Other (Left AV fistula, biliary drain removed)
Past Surgical History: Reports Other (Appendectomy and Other (Left AV fistula, biliary drain removed))
Social History
Tobacco: Former Smoker
Alcohol: Binge drinker
Drug: None
Personal: Single
Employment: Disabled
Family History
Family History: Not pertinent
Allergies / Home Medications
Allergies reflects when Allergies were last updated in [facility].
Home Medications with original date entered in [facility]
Allergy/Medication List:
Allergies
Allergy/AdvReac Type Severity Reaction Status Date / Time
hydromorphone [From Dilaudid] Allergy Mild Itching Verified 01/31/24 17:13
shellfish derived Allergy Hives Verified 01/31/24 17:13
Home Medications
amlodipine 10 mg tablet 10 mg PO DAILY Blood pressure 04/22/21
carvedilol 25 mg tablet (Coreg) 25 mg PO BID Blood pressure 04/22/21
furosemide 40 mg tablet 40 mg PO BID Fluid retention/Swelling 04/22/21
metoclopramide HCl 10 mg tablet (Reglan) 10 mg PO TIDPRN PRN nausea 04/07/23
oxcarbazepine 150 mg tablet 150 mg PO DAILY Mental Health/Anxiety 07/24/23
insulin aspart U-100 100 unit/mL subcutaneous solution (Novolog U-100 Insulin aspart) 70 unit SC .VIA PUMP 01/05/24
trazodone 50 mg tablet 25 mg PO HS 01/05/24
Review of Systems
-
Constitutional: Reports No Symptoms
EENT: Reports No Symptoms
Respiratory: Reports Trouble Breathing
Cardiac: Reports No Symptoms
Abdomen/GI: Reports Abdominal Pain, Nausea and Vomiting
: Reports No Symptoms
Musculoskeletal: Reports No Symptoms
Skin: Reports No Symptoms
Neurological: Reports No Symptoms
Endocrine: Reports No Symptoms
Hematologic/Lymphatic: Reports No Symptoms
Psych: Reports No Symptoms
Physical Exam
Vital Signs
Vital Signs
Temp Pulse Resp BP Pulse Ox
99.5 F 83 16 188/105 94
01/31/24 18:53 01/31/24 17:04 01/31/24 17:04 01/31/24 18:09 01/31/24 18:30
Physical Exam
General: Conversant and Appears in Distress (mild )
HEENT: NormoCephalic, Anicteric and Moist mucous membranes
Respiratory: Other (decresed BS at Rt base ); No Wheezes
Cardiac: S1/S2 and Regular Rhythm
Breast: Deferred by me
GI: Soft, Non Tender and Other (Generalized abd tenderness with palpation)
Rectal: Deferred by Provider
Genito-urinary: Deferred by me
Musculoskeletal: Other (Nonpitting in the lower extremities )
Skin: Warm
Neuro: Awake and AO x 3
Psych: Calm
Laboratory Results
-
01/31/24 18:34
01/31/24 18:34
Laboratory Results
Lactic Acid 0.9 mmol/L (0.7-2.0) 01/31/24 18:34
Total Bilirubin 0.9 mg/dl (0.2-1.3) 01/31/24 18:34
AST 50 U/L (17-59) 01/31/24 18:34
ALT 49 U/L (0-50) 01/31/24 18:34
Alkaline Phosphatase 141 U/L (38-126) H 01/31/24 18:34
Troponin I 0.017 ng/ml 01/31/24 18:34
Data Reviewed
-
Diagnostic Radiology: Report Reviewed by me
CT Scan: Report Reviewed by me
Lab Data: Labs Reviewed by me
Old Records: Reviewed
Impression/Plan
-
Reviewed VS: T 99.5 HR 80 BP 188/105
Data
nl WCC
Hgb 10.6 - baseline 9s-10s
Na 132
K 5
Cl 96
CO2 25
BUN 51 Cr 5.2
nl LFTs
BG 410
TPNI 0.017
pro BNP > 27 k- on 32k
Pending LA
CXR
Moderate right pleural effusion with adjacent atelectasis.
The left lung is clear. No pneumothorax. Stable enlargement of the cardiac silhouette.
01/31/24 US Abdomen
1. Diffusely thickened and edematous gallbladder wall, probably more likely to be reactive but acalculous cholecystitis is an alternative consideration.
2. Mild abdominal ascites.
3. Right pleural effusion.
CT AP without IV or oral
Markedly limited study without oral or intravenous contrast.
Mild cardiomegaly and probable tiny pericardial effusion.
Hepatomegaly again noted.
Findings suggesting gallbladder edema. No biliary tract dilatation.
Moderate right pleural effusion, slightly decreased in comparison to recent prior study.
Bilateral renal atrophy.
No intestinal obstruction or free air.
Small volume ascites in seen.
Findings again seen suggesting diffuse anasarca.
Last hospitalist admission: -
DXs: DKA due to insulin malfunction, HX multiple AMAs
06/30/23 TTE
Normal biventricular size and systolic function without regional wall motion abnormality.
Flattened septum in diastole ('D'-shaped left ventricle) consistent with RV volume overload.
Enlarged right ventricular size.
Severe tricuspid regurgitation.
Severe pulmonary HTN, PASP estimated at 60-65 mmHg and RA 3 mmHg.
No prior study available for comparison.
Consider right heart catheterization (and possible left heart catheterization)
to assess pulmonary HTN.
ASSESSMENT & PLAN
Persistent abdominal pain with recurrent N/V
US and CT suggestive of GB edema and no CBD dilatation but unremarkable LFTS
DDx; GBW edema due to anasarca vs acalculous cholecystitis vs hepatic venous congestion vs intestinal edema
- NPO except sips and ice chips
- Trend LFTs
- Analgesia
- Ani emetics
- Non urgent GS consult for AM
Anasarca
Volume overload
HX chr HFpEF elevated pBNP
Known severe PHT
large right pleural effusion: Moderate
HX ESRD malena HD M/W/F via left UE AVF.
- FR
- low K diet
- Vol. is managed by HD
- Renal consult for additional HD ???
- IR consult to eval Rt Thoracentesis
Hyperglycemia
HX DKA, IDDM
- check BHB
- currently NPO and allow sips
- cont. Insulin Pump with basal rate
- ad ISS low
HX binge drinking Denied ETOH WD s/s
Denies regular ETOH intake
No clinical evidence acute ETOH WDS - - NOT drinking for weeks
- Observe
Essential HTN poorly control
- continue amlodipine and carvedilol per home
- add IV Hydralazine PRN for SBP >16, DBP > 110
DVT PPX SQH
Full code
IP TLM
[2024-01-31] MEDS: ZOSYN 50 IV (20:48)
[2024-01-31 21:22] LABS: INR 1.22; PT 15.2 Sec (11.4-14.6)
[2024-01-31 21:24] LABS: Lactic Acid 1.3 mmol/L (0.7-2.0)
[2024-01-31 22:10] LABS: B-Hydroxybutyrate 0.06 mmol/L (0.02-0.27)
[2024-01-31] MEDS: DILAUDID 0.25 MG IV (22:13)
[2024-01-31 22:18] LABS: LDH 283 U/L (120-246)
--- NOTE | 2024-01-31 23:00 | PTCARENOTE ---
Patient admitted to 2N ~2134 ambulated to bed without difficulty, settled into room, admission completed, PRN IV dilaudid given for pain - see MAR. Patient stated he needs to leave hospital in order 'to take care of dogs', patient BIBA and states
will take Uber home. HEAD MVA REACTOR OPERATOR and nursing supervisor painting department made aware, HEAD MVA REACTOR OPERATOR attempted to call parents with no answer, HEAD MVA REACTOR OPERATOR at bedside and AMA form signed and in chart. IV removed at this time. Patient dressed self and wheeled in wheelchair down to ED
vestibule.
--- NOTE | 2024-01-31 23:04 | W.PN.UPDATE ---
Update Note
Progress Note Update
Patient left AMA. He was taken back down to the ED to await an Uber. Encouraged him to follow up with PCP within one week. He has HD scheduled Friday of this coming week. Advised him to come back if he begins to feel worse. He is in agreement.
--- NOTE | 2024-02-14 20:28 | W.DS.TRANS ---
DC Summary - Social Service Liaison
-
Discharge Instructions:
Instructions:
Stand-Alone Forms:
Admitted on 01/31/24
He left AMA om 01/31/24
Summary of admission is below
33M�HX�HD (MWF) dependent ESRD,�IDDM on insulin pump, HX DKA, CHF severe PHT, known Rt large pleural effusion r who was seen at ER on 01/28/24 for Lt LQ abdominal pain wit N/ V, had CT noted�volume overload,�large Rt pleural effusion�similar to
01/17/24 CT. He was DC'd to f/u with routine HD. Today he returned to ER with�persistent abdominal pain and�SoB. Associated with N/V. Evalaution noted for US tonight�and 01/28/24�CT suggestive of�GB edema without�CBD dilatation�Unremarkable LFTS.�DDx;
GBW edema due to anasarca vs acalculous cholecystitis vs hepatic venous congestion.�NPO except sips and ice chips. Trend LFTs. Empiric Zosyn. Clinical�anasarca,�volume overload.�HX�chr HFpEF�with significantly�elevated pro�BNP without interval
change.�Known�severe PHT�with CXR POS for large right pleural effusion:� Vol. is managed by HD.��IP TLM. Renal consult�for additional HD???�IR consult�to eval Rt Thoracentesis. GS�consult for GB edema and abdominal pain.
Per [facility] ( Michelle Leon)
Following admission , patient left AMA.
He was taken back down to the ED to await an Uber.
Encouraged him to follow up with PCP within one week.
He has HD scheduled Friday of this coming week.
Advised him to come back if he begins to feel worse. He is in agreement.
Changes to Home Medications: No
Discharge Medications:
DC Medications w/original date entered in [employer]
amlodipine 10 mg tablet 10 mg PO DAILY Blood pressure 04/22/21
carvedilol 25 mg tablet (Coreg) 25 mg PO BID Blood pressure 04/22/21
furosemide 40 mg tablet 40 mg PO BID Fluid retention/Swelling 04/22/21
metoclopramide HCl 10 mg tablet (Reglan) 10 mg PO TIDPRN PRN nausea 04/07/23
oxcarbazepine 150 mg tablet 150 mg PO DAILY Mental Health/Anxiety 07/24/23
trazodone 50 mg tablet 25 mg PO HS sleep 01/05/24
Patient Own Insulin Pump 0 units SC .VIA PUMP diabetes 02/13/24
Home Medication Changes
Pending Results: No
== END 2024-01-31 23:06 | disposition left against medical advice (07) | DRG 444 ==
LOC: 2 NORTH 21:02
PROVIDERS: Clinical Nurse Specialist Family Health; ADMITTING PHYSICIAN Internal Medicine; EMERGENCY PHYSICIAN Emergency Medicine
DX: K81.0 Acute cholecystitis (principal); N18.6 End stage renal disease; I50.32 Chronic diastolic (congestive) heart failure; I13.2 Hypertensive heart and chronic kidney disease with heart failure and with stage 5 chronic kidney disease, or end stage renal disease; J98.11 Atelectasis; R10.9 Unspecified abdominal pain; F17.200 Nicotine dependence, unspecified, uncomplicated; E11.22 Type 2 diabetes mellitus with diabetic chronic kidney disease; I27.20 Pulmonary hypertension, unspecified; E11.65 Type 2 diabetes mellitus with hyperglycemia; Z96.41 Presence of insulin pump (external) (internal); Z79.4 Long term (current) use of insulin; Z99.2 Dependence on renal dialysis; Z88.5 Allergy status to narcotic agent; Z91.013 Allergy to seafood
CPT/HCPCS: 71046; 76700; 80053; 82010; 82962; 83605; 83615; 83880; 84484; 85025; 85610; 87040; 96374; 96375; 99285

== ENCOUNTER 2024-02-04 00:46 | Emergency (ER) | payer OTHER, SELFPAY ==
[2024-02-04 00:53] VITALS: BP 185/115
--- NOTE | 2024-02-04 02:11 | ED.GENMED ---
History of Present Illness
<MARCEL Delgado - Last Filed: 02/04/24 02:22>
General
Chief Complaint: Abdominal Pain
Source: patient
Exam Limitations: none
Time Seen by Provider: 02/04/24 02:00
Nursing documentation reviewed up to this point in time: agreed with
Travel History
Have you had any contact with someone who has COVID-19?: No
Do you have any symptoms of coronavirus? Fever > 100 degrees, chills, cough, shortness of breath, sore throat, loss of taste or smell, muscle aches, or headache?: No
History of Present Illness
History of Present Illness:
patient is a 33 y/o male with PMH of ESRD, DM presenting with abdominal pain since Friday. Patient states that the pain is sharp and located over his entire abdomen. Patient denies any radiation of pain. Patient admits to taking Tylenol and
ibuprofen at home with no relief. Patient admits to SOB. Patient admits to nausea and vomiting with 2 episodes of vomiting with last one occurring prior to EMS arrival. Patient admits to increased abdominal distension since last Friday. Patient
admits to increased LE edema. Patient denies fever, chills, WARNER, CP, D/C, medication change, diet changes. Patient was here 4 days ago and confirmed a pleural effusion however patient left AMA. patient is currently on M/W/F dialysis with his last
appointment on Friday. patient admits to smoking tobacco today. Patient denies alcohol intake.
Past History
<MARCEL Delgado - Last Filed: 02/04/24 02:22>
Past History
ED Past Medical History: CHF, HTN, IDDM, Renal failure (Dialysis M-W-F) and Other (ESRD, PE, Contipation, ESRD, TR, pulmonary hypertension, congestive heart failure, etc.)
ED Past Surgical History: Appendectomy and Other (Left AV fistula, biliary drain removed)
Patient has exhibited threatening behavior?: No
PSI?: No
Social History
Tobacco: Smoker
Alcohol: None
Drug: None
Personal: Single
Living: with family
Employment: Other
Family History
Family History: Other
Review of Systems
<MARCEL Delgado - Last Filed: 02/04/24 02:22>
Review of Systems
Constitutional: Reports no symptoms
EENT: Reports no symptoms
Respiratory: Reports trouble breathing
Cardiac: Reports no symptoms
ABD/GI: Reports abdominal pain, nausea, vomiting and other (distension)
: Reports no symptoms
Musculoskeletal: Reports no symptoms
Skin: Reports no symptoms
Neurological: Reports no symptoms
Phy Exam
<MARCEL Delgado - Last Filed: 02/04/24 02:22>
General Physical Exam
General Presentation: mild distress
General Skin: warm and dry
General Habitus: normal
General Mental: alert
General Hydration: appears well hydrated
ENT Exam
ENT Exam: EOMI, pharynx normal, neck supple and normocephalic
Eye Exam
Eye Exam: PERRL, cornea clear and conjunctiva normal
Cardiovascular Exam
Cardiovascular Exam: systolic murmur
Pulmonary Exam
Pulmonary Exam: no respiratory distress and decreased breath sounds
Gastrointestinal Exam
Gastrointestinal Exam: distended and tender (diffusely tender)
Palpation: generalized: Moderate tenderness
Auscultation of Abdomen: normal
Liver Exam: edema of legs, jaundice and RUQ tenderness
Neurological Exam
Neurological Exam: alert, oriented x3, no motor deficits and speech normal
Musculoskeletal Exam
Musculoskeletal Exam: full ROM and no edema
Skin Exam
Skin Exam: normal color, warm/dry, no rash and no petechia
Psychiatric Exam
Psychiatric Exam: normal mood/affect
Course
<MARCEL Delgado - Last Filed: 02/04/24 02:22>
Orders/Labs/Results
Orders:
Orders
02/04/24 02:46
Complete Blood Count/With Diff Urgent
Comprehensive Metabolic Panel Urgent
Lipase Urgent
PTT Urgent
Prothrombin Time Urgent
Urinalysis Reflex To Culture Urgent
Vital Signs
Initial and Last Documented VS:
Initial Vital Signs
Temp Pulse Resp BP Pulse Ox
97.8 F 84 22 185/115 94
02/04/24 00:53 02/04/24 00:53 02/04/24 00:53 02/04/24 00:53 02/04/24 00:53
Last Documented Vital Signs
Temp Pulse Resp BP Pulse Ox
97.8 F 84 22 185/115 94
02/04/24 00:53 02/04/24 00:53 02/04/24 00:53 02/04/24 00:53 02/04/24 00:53
<Jaime Burdick, DO - Last Filed: 02/04/24 03:19>
Orders/Labs/Results
Orders:
Orders
02/04/24 02:46
Complete Blood Count/With Diff Urgent
Comprehensive Metabolic Panel Urgent
Lipase Urgent
PTT Urgent
Prothrombin Time Urgent
Urinalysis Reflex To Culture Urgent
Vital Signs
Initial and Last Documented VS:
Initial Vital Signs
Temp Pulse Resp BP Pulse Ox
97.8 F 84 22 185/115 94
02/04/24 00:53 02/04/24 00:53 02/04/24 00:53 02/04/24 00:53 02/04/24 00:53
Last Documented Vital Signs
Temp Pulse Resp BP Pulse Ox
97.8 F 84 22 185/115 94
02/04/24 00:53 02/04/24 00:53 02/04/24 00:53 02/04/24 00:53 02/04/24 00:53
<MARCEL Delgado - Last Filed: 02/04/24 02:22>
MDM/Problems Addressed
Differential Diagnosis Includes:
liver failure
CHF exacerbation
fluid overload
MDM/Problems Addressed:
abdominal pain
<MARCEL Delgado - Last Filed: 02/04/24 02:22>
*Critical Care Note
Total Time (30-74mins, 75-104mins- exclusive of procedures): Not Applicable
ED Attending Note
<MARCEL Delgado - Last Filed: 02/04/24 02:22>
-
Portions of this chart may have been created with voice recognition software.� Occasional wrong word or��sound alike� substitutions may have occurred due to the inherent limitations of voice recognition software.
<Jaime Burdick DO - Last Filed: 02/04/24 03:19>
ED Attending Note
Patient seen and examined by attending physician: Yes
I performed the substantive portion of visit, reviewed & personally made and approve the management plan that is documented in note by myself or AVINASH.: Yes
ED Attending Note:
Into see the patient. He is walking around the room. He stated that he wanted pain medication. I stated that we needed to work him up as he has been here several times in the last week. I told him that I would be glad to treat his pain once we
figure out the etiology of it. He states that he has had the same pain for the last week. I did see him approximately 1 week ago and discharged him to dialysis. He was seen again a few days later and left AGAINST MEDICAL ADVICE. Patient has been
compliant with his dialysis. He does state that he has dialysis in the morning. Patient did not want blood work. He stated that he did not want anything done before he got pain medication. I did offer him nonnarcotic alternatives until we could
figure out what the etiology of his pain was. He refused. Approximately 5 minutes after my initial encounter, patient came out of the room dressed stating that he wanted to leave. Patient does understand that without any workup, definitive
etiology cannot be established. He stated that he was okay with leaving him getting his dialysis in the morning. He understands that a missed diagnosis is possible without further workup. I feel the patient had good understanding of the risks
involved with leaving AGAINST MEDICAL ADVICE. He chose not to take discharge paperwork. Patient ambulated out of the department without obvious issue.
Discharge Plan
Departure
Patient Disposition: Against Medical Advice
Date of Disposition: 02/04/24
Time of Disposition: 03:18
Discharge Problem:
Abdominal pain
Instructions: Abdominal Pain
Prescriptions:
No Action
furosemide 40 MG tablet
40 mg PO BID
carvedilol [Coreg] 25 MG tablet
25 mg PO BID
amlodipine 10 MG tablet
10 mg PO DAILY
metoclopramide HCl [Reglan] 10 mg Tablet
10 mg PO TIDPRN PRN (Reason: nausea)
oxcarbazepine 150 mg tablet
150 mg PO DAILY
trazodone 50 mg Tablet
25 mg PO HS
insulin aspart U-100 [Novolog U-100 Insulin aspart] 100 unit/mL solution
70 unit SC .VIA PUMP
Referrals:
Casper Arroyo MD [Family Provider] -
Interventions
Interventions:
*Risk Screen - Suicide Last Done: 02/04/24 00:53
*Neglect/Abuse Screening Last Done: 02/04/24 00:53
Discharge Date and Time
Print Language: SWEDISH
== END 2024-02-04 03:11 | disposition left against medical advice (07) ==
LOC: EMR 00:46
PROVIDERS: EMERGENCY PHYSICIAN Student in an Organized Health Care Education/Training Program; FAMILY PHYSICIAN Internal Medicine
DX: R10.9 Unspecified abdominal pain (principal); I13.2 Hypertensive heart and chronic kidney disease with heart failure and with stage 5 chronic kidney disease, or end stage renal disease; I50.9 Heart failure, unspecified; E11.22 Type 2 diabetes mellitus with diabetic chronic kidney disease; N18.6 End stage renal disease; I27.20 Pulmonary hypertension, unspecified; F17.200 Nicotine dependence, unspecified, uncomplicated; Z99.2 Dependence on renal dialysis
CPT/HCPCS: 99282

== ENCOUNTER 2024-02-13 10:15 | Inpatient (IN) | payer OTHER, SELFPAY ==
[2024-02-13] VITALS (13 sets, daily range): BP systolic 44–202; BP diastolic 37–119; BMI 24.2; BMI 24.0
[2024-02-13 06:18] LABS: % Eosinophils 2.2 % (0-6); % Immature Granulocytes 0.7 % (0-0.5); % Lymphocytes 23.6 % (20.5-51.1); % Monocytes 7.9 % (1.7-9.3); % Neutrophils 64.6 % (42.2-75.2); Absolute Eosinophils 0.1 10^3/uL (0-0.7); Absolute Monocytes 0.3 10^3/uL (0.1-0.6); Absolute Neutrophils 2.6 10^3/uL (1.4-6.5); Hematocrit 31.7 % (39.0-52.0); Hemoglobin 10.6 g/dL (13.0-18.0); Mean Corp Hgb Conc. 33.4 g/dL (33.0-37.0); Mean Corpuscular Hgb 32.9 pg (27.0-31.0); Mean Corpuscular Volume 98.4 fL (80.0-94.0); Mean Platelet Volume 9.8 fL (7.4-10.4); Nucleated Red Blood Cells % 0 % (-); Platelet Count 203 10^3/uL (130-400); Red Blood Cell Count 3.22 10^6/uL (4.70-6.10); Red Cell Dist. Width 17.4 % (11.5-14.5); White Blood Cell Count 4.1 10^3/uL (4.8-10.8)
[2024-02-13 06:42] LABS: ALT (SGPT) 33 U/L (0-50); AST (SGOT) 57 U/L (17-59); Albumin 3.8 g/dl (3.5-5.0); Alkaline Phosphatase 138 U/L (38-126); Blood Urea Nitrogen 50 mg/dl (9-20); Calcium 8.6 mg/dl (8.4-10.2); Carbon Dioxide 19 mmol/L (22-30); Chloride 97 mmol/L (98-107); Estimated Creatinine Clearance 18 ml/min; Glucose 576 mg/dl (70-99); Lipase 129 U/L (23-300); Potassium 5.1 mmol/L (3.5-5.1); Sodium 127 mmol/L (135-145); Total Bilirubin 0.6 mg/dl (0.2-1.3); Total Protein 6.3 g/dl (6.3-8.2); eGFR 13.26
--- NOTE | 2024-02-13 06:49 | ED.GENMED ---
History of Present Illness
General
Chief Complaint: Abdominal Pain
Source: patient and ambulance crew
Exam Limitations: none
Time Seen by Provider: 02/13/24 06:34
Nursing documentation reviewed up to this point in time: agreed with
Travel History
Have you had any contact with someone who has COVID-19?: No
Do you have any symptoms of coronavirus? Fever > 100 degrees, chills, cough, shortness of breath, sore throat, loss of taste or smell, muscle aches, or headache?: No
History of Present Illness
History of Present Illness:
33-year-old male presents emergency department complaining of right lower quadrant abdominal pain since noon. He vomited, no diarrhea. He had dialysis yesterday but only half the treatment due to infiltrated needles in left arm.
Past History
Past History
ED Past Medical History: CHF, HTN, IDDM, Renal failure (Dialysis -W-) and Other (ESRD, PE, Contipation, ESRD, TR, pulmonary hypertension, congestive heart failure, etc.)
ED Past Surgical History: Appendectomy and Other (Left AV fistula, biliary drain removed)
Patient has exhibited threatening behavior?: No
PSI?: No
Social History
Tobacco: Smoker
Alcohol: None
Drug: None
Personal: Single
Living: with family
Employment: Other
Family History
Family History: Other
Review of Systems
Review of Systems
Allergies reviewed?: Yes
All Other Systems: Not applicable
Constitutional: Reports no symptoms
EENT: Reports no symptoms
Respiratory: Reports no symptoms
Cardiac: Reports no symptoms
ABD/GI: Reports abdominal pain and vomiting
: Reports no symptoms
Musculoskeletal: Reports edema
Skin: Reports no symptoms
Neurological: Reports no symptoms
Endocrine: Reports no symptoms
Hematologic/Lymphatic: Reports no symptoms
Psychiatric: Reports no symptoms
Phy Exam
Physical Exam
Physical Exam:
Physical Exam
General: appears uncomfortable
Neck: supple. no meningeal signs. normal posterior pharynx
Heart: s1/s2 regular rate and rhythm, no murmur. equal radial
pulses.
HEENT: Pupils equal round reactive to light, EOMI
Lungs: no acute respiratory distress. clear bilaterally
Abdomen: normal bowel sounds. ascites, ttp right side. no CVAT
Neuro: alert and oriented. no focal neurological deficits cranial nerves II through XII intact
Skin: no rash
Psychiatric: well kept. interactive and cooperative
Extremities: no edema. no calf tenderness. negative homans. good distal pulses, left upper arm swelling, bruit
Course
Orders/Labs/Results
Orders:
Orders
02/13/24 06:10
Complete Blood Count/With Diff Urgent
Comprehensive Metabolic Panel Urgent
Lipase Urgent
02/13/24 06:45
CR Chest - 2 Views Urgent
Comment:
Reason For Exam: decreased breath sounds left
02/13/24 06:47
Insulin Human Regular [Novolin R] 7 units IV NOW STA
02/13/24 06:55
CT Abd/pel Without Iv Or Oral Urgent
Comment:
Reason For Exam: RLQ abdominal pain
02/13/24 06:58
Morphine Sulfate 4 mg IV NOW STA
Ondansetron Injectable [Zofran] 4 mg IV NOW STA
02/13/24 08:25
HydrALAZINE [Apresoline] 10 mg IV NOW STA
02/13/24 09:34
Carvedilol [Coreg] 25 mg PO NOW STA
02/13/24 09:53
Admit/Transfer Patient As Directed
Co-Sign Provider:
Level of Care: Inpatient admission
Assign to:: ICU
Physician / Group: Dr Castillo
Diagnosis: DKA
Reason for Hospitalization: pte p/w abd pain, volume overload, htn, dka.
Expected length of stay greater than two midnights?: Yes
ELOS- Estimated Length of Stay in days: 2
I certify the patient meets the requirements for IP care: Yes
02/13/24 09:55
Code Status As Directed
Resuscitation Status: Full Code
02/13/24 09:59
NEPHROLOGY CONSULT Routine
Consulting Provider: Herminia Interiano
Was physician already notified: Yes
Reason for consult: ESRD HD needs
02/13/24 10:13
HYDROmorphone [Dilaudid] 0.25 mg IV Q4HPRN PRN
02/13/24 10:16
BMP [Basic Metabolic Panel] Stat
02/13/24 12:48
Reg Insulin 100 Units/100 ml [Novolin R Insulin Infusion] 100 units in 100 ml IV PER PROTOCOL
Initial dose in units/hr, then titrate:: 5
02/13/24 12:48
Activity As Directed
Activity Level: Out of Bed-Early Mobility
Bedside Glucose Monitoring As Directed
Frequency: AC&HS
Intake/ Output As Directed
Frequency: Per unit guidelines
Notify MD As Directed
Notify physician if: Nurse to contact provider when glucose reaches 250 to obtain orders for D5 0.45 NaCl
Vital Signs As Directed
Frequency: Per unit guidelines
DX Deep Vein Thrombosis Video Routine
02/13/24 16:00
Heparin 5,000 units SC Q8
02/13/24 20:00
Carvedilol [Coreg] 25 mg PO BID
02/13/24 22:00
Trazodone [Desyrel] 25 mg PO HS
02/14/24 06:00
Basic Metabolic Panel IN AM
Complete Blood Count/With Diff IN AM
02/14/24 08:00
Amlodipine [Norvasc] 10 mg PO DAILY
Oxcarbazepine [Trileptal] 150 mg PO DAILY
Abnormal Lab Results
02/13/24 02/13/24
06:10 10:08
WBC 4.1 L 10^3/uL
(4.8-10.8)
RBC 3.22 L 10^6/uL
(4.70-6.10)
Hgb 10.6 L g/dL
(13.0-18.0)
Hct 31.7 L %
(39.0-52.0)
MCV 98.4 H fL
(80.0-94.0)
MCH 32.9 H pg
(27.0-31.0)
RDW 17.4 H %
(11.5-14.5)
Absolute Lymphs (auto) 1.0 L 10^3/uL
(1.2-3.4)
Immature Gran % 0.7 H %
(0-0.5)
Sodium 127 L mmol/L
(135-145)
Chloride 97 L mmol/L
(98-107)
Carbon Dioxide 19 L mmol/L
(22-30)
BUN 50 H mg/dl
(9-20)
Creatinine 5.5 H* mg/dL
(0.7-1.3)
Glucose 576 H* mg/dl
(70-99)
Alkaline Phosphatase 138 H U/L
(38-126)
POC Glucose 220 H mg/dl
(70-99)
02/13/24 06:10
02/13/24 06:10
Vital Signs
Initial and Last Documented VS:
Initial Vital Signs
Temp Pulse Resp BP Pulse Ox
98.5 F 87 17 183/104 95
02/13/24 05:45 02/13/24 05:45 02/13/24 05:45 02/13/24 05:45 02/13/24 05:45
Last Documented Vital Signs
Temp Pulse Resp BP Pulse Ox
98.0 F 85 14 110/63 95
02/13/24 12:56 02/13/24 12:56 02/13/24 12:56 02/13/24 12:56 02/13/24 13:12
MDM/Problems Addressed
Differential Diagnosis Includes:
Intra-abdominal abscess, CHF, pleural effusion, ascites
MDM/Problems Addressed:
33-year-old male with chronic renal failure, ascites, right-sided pleural effusion, hyperglycemia. Admit to hospitalist. IV insulin given.
Chronic conditions affecting care: DM, Cardiomyopathy and Kidney disease
Acute Exacerbation and/or Progression of Chronic Illness: DM, Cardiomyopathy and Kidney disease
*Radiology
Radiology exam reviewed: preliminary read by ED provider (Chest x-ray right-sided pleural effusion) and radiology read reviewed (CT abdomen pelvis shows ascites)
*Pulse Oximetry
Patient hypoxic: no
*EKG
Interpreted by ED Provider?: NA
*Case Management Coordinator Interpretation
Rate: Case Management Coordinator- N/A
*Critical Care Note
Total Time (30-74mins, 75-104mins- exclusive of procedures): 30
comment:
Critical care statement: A total of 30 minutes of critical care time was provided for this patient. This includes management of unstable vital signs, evaluation of the patient at bedside, reviewing the patient's pertinent medical records, discussion
with consultants, review of old EKGs and review of pertinent medical records. This time with separate from time utilized to perform the aforementioned documented procedures
Data Reviewed
Review of Other/Old Records Reveals: Labs
Source: records (Prior glucose and creatinine 410 and 5.2 on 01/31/2024)
Patient Management
Social determinants of health affecting care: Living situation
Discussion with other providers: Hospitalist
Escalation/DeEscalation of care consider admission/obs:
Admit indicated
ED Attending Note
-
Portions of this chart may have been created with voice recognition software.� Occasional wrong word or��sound alike� substitutions may have occurred due to the inherent limitations of voice recognition software.
Discharge Plan
Departure
Patient Disposition: Admit
Date of Disposition: 02/13/24
Time of Disposition: 08:03
Admit to: Telemetry
Presentation/result/management discussed w/ accepting MD/DO: Hospitalist
Patient with high blood pressure during this ER visit?: Yes
Condition: Fair
Discharge Problem:
Fluid overload, Abdominal ascites, Pleural effusion on right, Hyperglycemia due to type 1 diabetes mellitus, ESRD (end stage renal disease) on dialysis
Interventions
Interventions:
*Risk Screen - Suicide Last Done: 02/13/24 05:45
*General Assessment Last Done: 02/13/24 05:45
*Neglect/Abuse Screening Last Done: 02/13/24 05:45
ED- Fall Risk Assessment Last Done: 02/13/24 05:45
*ED COVID-19 Vaccine History Last Done: 02/13/24 05:45
*Nursing Disposition Last Done: 02/13/24 12:50
GJ-Rklzgz-[id number] Assessment Last Done: 02/13/24 06:05
Discharge Date and Time
Discharge Date/Time: 02/13/24 13:15
[2024-02-13] MEDS: ZOFRAN 4 MG IV (07:06)
[2024-02-13] MEDS: MORPHINE SULFATE 4 MG IV (07:07)
[2024-02-13] MEDS: NOVOLIN R 7 UNITS IV (07:08)
[2024-02-13] MEDS: COREG 25 MG PO ×2 (09:37→20:19)
--- NOTE | 2024-02-13 09:57 | HPS.HSE ---
Family Physician
-
Family Physician: Casper Arroyo
Chief Complaint
-
Abdominal pain and shortness of breath
History of Present Illness
Patient 33 years old male with multiple comorbidities came into the hospital abdominal pain. Patient has been complaining of abdominal pain moderate to severe intensity, crampy in nature, associate with nausea over the last 2 days. No melena or
hematemesis. No fevers or chills. Patient also has been having increased peripheral edema and increased shortness of breath. He is end-stage renal disease on dialysis and he was getting a catch-up dialysis yesterday but could not finish treatment
due to infiltrated needles in the left arm. Patient denies any chest pain. He had a CT scan of the abdomen in the ER that found some nonspecific findings. He also was noted to be hypertensive and hyperglycemic. Blood pressure initially 202/119.
Blood sugar initially 576. Follow-up blood pressure after administration of medication 133/92. Follow-up blood sugar after insulin, 213. He was referred to hospitalist service for further evaluation.
Medical History
Past Medical History
Past Medical History: Reports Other (Hypertension, end-stage renal disease on hemodialysis, PE, constipation, CHF, pleural effusions, depression anxiety, alcohol use disorder in the past, narcotic use disorder in the past.)
Past Surgical History: Reports Other (Left IV distal, biliary drain removed in the past, appendectomy.)
Social History
Tobacco: Former Smoker
Alcohol: Binge drinker
Drug: Former User
Family History
Family History: Not pertinent
Allergies / Home Medications
Allergies reflects when Allergies were last updated in [email or web address].
Home Medications with original date entered in [email or web address]
Allergy/Medication List:
Allergies
Allergy/AdvReac Type Severity Reaction Status Date / Time
shellfish derived Allergy Hives Verified 02/04/24 00:56
Home Medications
amlodipine 10 mg tablet 10 mg PO DAILY Blood pressure 04/22/21
carvedilol 25 mg tablet (Coreg) 25 mg PO BID Blood pressure 04/22/21
furosemide 40 mg tablet 40 mg PO BID Fluid retention/Swelling 04/22/21
metoclopramide HCl 10 mg tablet (Reglan) 10 mg PO TIDPRN PRN nausea 04/07/23
oxcarbazepine 150 mg tablet 150 mg PO DAILY Mental Health/Anxiety 07/24/23
trazodone 50 mg tablet 25 mg PO HS sleep 01/05/24
Patient Own Insulin Pump 0 units SC .VIA PUMP 02/13/24
Review of Systems
-
A 12 point ROS was completed and negative except as noted: Yes
Physical Exam
Vital Signs
Vital Signs
Temp Pulse Resp BP Pulse Ox
98.5 F 96 16 133/92 93
02/13/24 05:45 02/13/24 09:37 02/13/24 09:20 02/13/24 09:37 02/13/24 09:20
Physical exam:
General: Acutely ill
HEENT: Normocephalic, Atraumatic and Moist Mucous Membranes
Respiratory: Clear to Auscultation; Negative Wheezes, Rales or Rhonchi
Cardiac: Regular Rhythm and S1/S2
GI: Soft, Nontender and Nondistended
Musculoskeletal: Bilateral edema in both upper extremity lower extremities. No Clubbing, No Cyanosis
Neuro: Awake, Alert and Oriented
Psych: Anxious
Physical Exam
General: Other
Laboratory Results
-
02/13/24 06:10
02/13/24 06:10
Laboratory Results
Total Bilirubin 0.6 mg/dl (0.2-1.3) 02/13/24 06:10
AST 57 U/L (17-59) 02/13/24 06:10
ALT 33 U/L (0-50) 02/13/24 06:10
Alkaline Phosphatase 138 U/L (38-126) H 02/13/24 06:10
Lipase 129 U/L (23-300) 02/13/24 06:10
Impression/Plan
-
IMPRESSION:
Patient 33 years old male with multiple comorbidities came into the hospital abdominal pain and increasing shortness of breath. Patient was found severely hyperglycemic and severely hypertensive with hypertensive urgency. He was borderline DKA/HHS
but responded quickly to insulin administration. He is at increased risk morbidity mortality and needs to be in the hospital for treatment and monitor.
Impression:
Volume overload, end-stage renal disease on hemodialysis
Abdominal pain
Diabetes mellitus type 1 with hyperglycemia (mild DKA/HHS resolved)
Hypertensive urgency
Conditions prior to presentation:
Hypertension
Diabetes mellitus type 1 on insulin pump with diabetic retinopathy
End-stage renal disease on hemodialysis
Alcohol use disorder
Chronic pleural effusions
Anemia
History of PE in the past
Depression anxiety
Narcotic use disorder
PLAN:
He was going to be started on insulin drip but no need for.
Insulin sliding scale
Will resume his insulin pump
Will start him on diet to see if tolerates
Pain medications--> will use narcotics today since no clear etiology on his current diagnosis but later on if nothing major found, will try to minimize--> I discussed with patient and he expresses understanding.
Restart his antihypertensives and monitor blood pressure closely
He was going to be started on the Cardene drip but no need for for now.
Nephrology consult
GI consult
Alcohol withdrawal protocol
Heparin SQ for DVT prophylaxis
CODE STATUS full code
Will give further recommendations based on his clinical course
Total time spent on today's encounter was 75 minutes which included time spent in counseling the patient/family regarding diagnosis and treatment plan as listed above, goals of care, and symptom management. Case was discussed with nursing staff,
specialists, and care coordinators/case management. All labs and imaging personally reviewed by me. Remainder the time spent in detailed review of previous records, lab data, imaging, and other medical provider documentation.
[2024-02-13 10:09] LABS: Glucose - Point of Care 220 mg/dl (70-99)
[2024-02-13] MEDS: DILAUDID 0.25 MG IV (10:38)
[2024-02-13 10:57] LABS: Blood Urea Nitrogen 55 mg/dl (9-20); Calcium 8.6 mg/dl (8.4-10.2); Carbon Dioxide 24 mmol/L (22-30); Chloride 98 mmol/L (98-107); Estimated Creatinine Clearance 18 ml/min; Glucose 213 mg/dl (70-99); Sodium 130 mmol/L (135-145); eGFR 13.26
--- NOTE | 2024-02-13 12:08 | PN.DE.MGMTRT ---
Insulin Management
- -
06/30/2023: Diabetes Management Consult for insulin pump
33 year old male well known to me from previous admissions. Pt presented to ED c/o abd pain, and vomited but no diarrhea. This is a chronic issue for him. He is noted for multiple ED visits / hospitalizations with similar complaints. States he had
dialysis yesterday but only half the treatment due to infiltrated AV Fistula.
PMH: ESRD on HD (MWF), T1DM for 18 years. He is currently using a Medtronic [id number] pump with NovoLog insulin and uses the Guardian sensor but currently is not using his sensor because his supply run out.
Pt seen in room, awake, A/O x3, sitting up in bed, comfortably w/o complaints
States he is still nauseous but is able to tolerate food.
His insulin pump is in place, with enough insulin supply.
Most recent glucose reading via hospital glucose monitor was 209. Pt is about to administer a correction bolus
Insulin pump settings as follows:
12am-4am 0.35 ICR 1:10 SF 1:50 Target 120 - 140
4am - 8am 0.425
8am - 12am 0.35
24 basal total 8.7 units. Active insulin time 5 hrs
Discussed with nurse and instructed to have bedside insulin pump worksheet for pt to document his CHO and insulin adm.
Diabetes History
- -
Type of Diabetes: 1
Pre-Admission Diabetes Regimen
02/13/24 02/13/24
06:10 10:16
Creatinine 5.5 H* 5.5 H*
Insulin Pump Settings
IP Diabetes Regimen
02/13/24 02/13/24 02/13/24
06:10 10:08 10:16
Glucose 576 H* 213 H
POC Glucose 220 H
Patient Education
--- NOTE | 2024-02-13 12:50 | PTCARENOTE ---
pt admitted to 2N this afternoon. pt is aaox3, on 2L of O2 and a self within the room. pt receives HD MWF and was not able to complete his session that he went to yesterday. pt has a R wrist IV site at this time and is currently NPO
[2024-02-13 12:53] LABS: Glucose - Point of Care 209 mg/dl (70-99)
[2024-02-13] MEDS: THIAMINE INJECTION 200 MG IV ×2 (13:42→20:19)
[2024-02-13] MEDS: FOLVITE 1 MG PO (13:42)
--- NOTE | 2024-02-13 14:03 | CM ---
Reviewed the chart notes and spoke with the patient at the bedside. The patient resides with his mother in a split level home with no steps to enter. The patient receives HD -W[facility] at [facility]. The patient reports no DME/VN/SNF in the
past. CM consult received for substance abuse. CM offered resources for substance abuse, patient declined. CM continues to be available to patient/family and is monitoring medical plan for needs at discharge.
Plan: Discharge to home when medically stable. No needs anticipated.
--- NOTE | 2024-02-13 15:02 | CON.GI ---
Addendum entered and electronically signed by Ashly King Do, MD 02/13/24 17:24:
I saw and examined the patient.
The RFID ENGINEER's note was reviewed and I agree with the note.
Comment: Charles is a 33yo M with h/o DM, CHF and ESRD on HD who was admitted for N/V and abd pain. Per pt pain is still 8 out of 10 but improved during hemodialysis today. Vitals stable, exam mild TTP abd diffusely. skin tears over legs
bilaterally, older than stated age. Labs reviewed. CTAP without contrast reviewed with possible gallbladder edema.
Impression
- Abd pain with N/V
May be exacerbation of known gastroparesis in setting of poor blood sugars
- ESRD on HD
- CHF
- DM
Recommendations
- C/w reglan ATC
- EKG
- Monitor stool output
- HD today
- C/w PPI
- If pain does not improve and ok per renal consider CTAP with oral and IV contrast
We will follow with you
Original Note:
Consultation
-
Date/Time Consultation Requested: 02/13/24 1220
Date/Time Consultation Performed: 02/13/24 1500
Requesting Provider: Royer Castillo MD
Performing Provider: OSCAR Rocha, Ashly Olivas MD
Reason for Consultation: abdominal pain
Medical History
Chief Complaint / HPI
Chief Complaint: abdominal pain
History of Present Illness:
Pt is a 33yo patient with care through [place] and [place] where he lived in past with hx multiple medical problems including IDDM with non compliance, prior PE, CHF, ESRD prior PD then HD, prior covid, pleural effusion, thoracentesis,
cholecystitis prior tip tube placement at [facility] without follow up cholecystectomy completed and gastroparesis. He was seen by GI in 05/2023 with good drainage from biliary tube and stable gastroparesis and GI signed off. Since that time he
has had multiple admissions since that time with leaving AMA is past. Last admission for in January with DKA then signed out AMA and ER visit 01/30 with also AMA. Pt now returns with right lower quadrant abdominal pain with nausea, vomiting. Pain
worse with cough. difficulty to say what makes pain better. He is also noted with increased edema, shortness of breath. On admission he is also noted with hypertension and hyperglycemia with hbg A1c 11.5 in January.
Pt states he had small amount of nausea and vomiting since yesterday. He states mostly vomiting clear liquid small amounts he had ingested without hematemesis. He denies dysphagia, GERD, wt loss, diarrhea, constipation, or rectal bleeding. On
admission Na 127, BUN 50, creat 5.5, glucose 576, bili 0.6, AST 57, alt 33, alk phos 138.
Past Medical History
Past Medical History: CHF, HTN, Hypercholesterolemia, IDDM (with non compliance per [place] records since age 13), Renal Failure (ESRD on HD - and prior periotoneal dialysis), Psychiatric (depression/anxiety) and Other (prior PE, cholecystitis
s/p tip tube placement 04/22/23, pleural effusion thoracentesis 04/30/23, admission to [facility] 05/12-05/14 with DKA prior covid infection, gastroparesis, osteomyelitis of foot, anemia )
Past Surgical History: Appendectomy and Other (AV fistula placement, retinal detatchment )
Social History
Tobacco: Smoker (1 11/04 PPD)
Alcohol: Occasional
Drug: None
Living: With Family
Employment: Disabled
Family History
Family History: Other (no family hx colon CA or polyps)
Allergies / Home Medications
Allergy/AdvReac Type Severity Reaction Status Date / Time
shellfish derived Allergy Hives Verified 02/04/24 00:56
�Medication �Instructions �Recorded
amlodipine 10 mg tablet 10 mg PO DAILY Blood pressure 04/22/21
carvedilol 25 mg tablet (Coreg) 25 mg PO BID Blood pressure 04/22/21
furosemide 40 mg tablet 40 mg PO BID Fluid 04/22/21
retention/Swelling
metoclopramide HCl 10 mg tablet 10 mg PO TIDPRN PRN nausea 04/07/23
(Reglan)
oxcarbazepine 150 mg tablet 150 mg PO DAILY Mental 07/24/23
Health/Anxiety
trazodone 50 mg tablet 25 mg PO HS sleep 01/05/24
Patient Own Insulin Pump 0 units SC .VIA PUMP diabetes 02/13/24
Review of Systems
-
History Source: Patient
Constitutional: Reports No Symptoms
EENT: Reports No Symptoms
Respiratory: Reports No Symptoms
Abdomen/GI: Reports Abdominal Pain, Nausea and Vomiting
: Reports Other (chronic HD)
Musculoskeletal: Reports No Symptoms
Skin: Reports Rash (LE rash )
Neurological: Reports No Symptoms
Endocrine: Reports No Symptoms
Hematologic/Lymphatic: Reports No Symptoms
Vital Signs
Temp Pulse Resp BP Pulse Ox
98.0 F 85 14 110/63 95
02/13/24 12:56 02/13/24 12:56 02/13/24 12:56 02/13/24 12:56 02/13/24 13:12
Physical Exam
Exam
General: Other (appears older than stated age )
HEENT: Normocephalic and Anicteric
Respiratory: Clear
Cardiac: Regular Rhythm, Murmur and Peripheral Edema
GI: Soft, Non Distended and Tender (RLQ tenderness )
Musculoskeletal: No Clubbing and No Cyanosis
Skin: Warm, Dry and Other (LE ulcerations )
Neuro: Awake, Alert and AO x 3
Psych: Calm
Results
WBC 4.1 10^3/uL (4.8-10.8) L 02/13/24 06:10
Hgb 10.6 g/dL (13.0-18.0) L 02/13/24 06:10
Hct 31.7 % (39.0-52.0) L 02/13/24 06:10
MCV 98.4 fL (80.0-94.0) H 02/13/24 06:10
Plt Count 203 10^3/uL (130-400) 02/13/24 06:10
Absolute Neuts (auto) 2.6 10^3/uL (1.4-6.5) 02/13/24 06:10
Sodium 130 mmol/L (135-145) L 02/13/24 10:16
Potassium mmol/L (3.5-5.1) 02/13/24 10:16
Chloride 98 mmol/L (98-107) 02/13/24 10:16
Carbon Dioxide 24 mmol/L (22-30) 02/13/24 10:16
BUN 55 mg/dl (9-20) H 02/13/24 10:16
Creatinine 5.5 mg/dL (0.7-1.3) H* 02/13/24 10:16
Calcium 8.6 mg/dl (8.4-10.2) 02/13/24 10:16
Total Bilirubin 0.6 mg/dl (0.2-1.3) 02/13/24 06:10
AST 57 U/L (17-59) 02/13/24 06:10
ALT 33 U/L (0-50) 02/13/24 06:10
Alkaline Phosphatase 138 U/L (38-126) H 02/13/24 06:10
Lipase 129 U/L (23-300) 02/13/24 06:10
Diagnostic Image Results:
02/13/24 CT Abd/pel Without Iv Or Oral
Markedly limited study without oral or intravenous contrast.
Findings again seen suggesting possible gallbladder edema.
Prior appendectomy.
At least moderate volume right pleural effusion again seen.
Possible tiny pericardial effusion.
New ascites, small volume in the abdomen and moderate volume in the true pelvis.
Slightly high attenuation fluid density of the urine within the urinary bladder, consider proteinaceous material including blood products. Suggest correlation with urinalysis.
Markedly limited evaluation of intestinal tract without oral or intravenous contrast, without intestinal obstruction or free air. Cannot exclude inflammatory process such as enteritis.
Prior GI Procedures:
EGD: [place] years ago
Colonoscopy: none
Assessment / Plan
-
Pt is a 33yo patient with care through [place] and [place] where he lived in past with hx multiple medical problems including IDDM with non compliance, prior PE, CHF, ESRD prior PD then HD, prior covid, pleural effusion, thoracentesis,
cholecystitis prior tip tube placement at [facility] without follow up cholecystectomy completed and gastroparesis. He was seen by GI in 05/2023 with good drainage from biliary tube and stable gastroparesis and GI signed off. Since that time he
has had multiple admissions since that time with leaving AMA is past. Last admission for in January with DKA then signed out AMA and ER visit 01/30 with also AMA. and now returns with right lower quadrant abdominal pain with nausea, vomiting. He
is also noted with increased edema, shortness of breath. On admission he is also noted with hypertension and hyperglycemia with hbg A1c 11.5 in January.
02/12 CT Abd/pel Without Iv Or Oral
possible GB edema, prior appe, moderate right pleural effusion, tiny pericardial effusion, new ascites,limited GI tract cannot exclude enteritis.
-Right lower abdominal pain
-nausea/vomiting with hx gastroparesis
-hx prior tip tube
-multiple admission with DKA
-volume overload with DM
-hypertensive urgency
other medical problems:
-IDDM since age 13 with non compliance
-CHF
-ESRD on PD then HD
-prior covid
-pleural effusion with prior tap
-osteomyelitis
PLAN:
Etiology of abdominal pain related to volume overload, underlying gastroparesis as some vomiting and elevated hbgA1c, enteritis vs other
hx cholecystitis but LFT's normal and no upper abdominal pain
CT limited without contrast but some improvement
would treat fluid overload
if worsening symptoms consider CT with oral contrast to exclude enteritis
check EKG for QTC prior to ordering last EGD QTC was 460 in January
cont ADA diet-- discussed gastroparesis diet with small meals, avoiding fizzy drinks, low fat, etc
stressed need for medical non compliance and control of FBS for treatment of gastroparesis
-
-
Thank you for consultation and allowing me to participate in the patient's care. Please call the optical effects layout person GI physician during the after hours with any questions or concerns.
[2024-02-13] MEDS: DILAUDID 0.5 MG IV ×2 (15:11→20:20)
[2024-02-13] MEDS: HEPARIN 5000 UNITS SC ×2 (15:12→23:13)
[2024-02-13] MEDS: MANNITOL 12.5 GRAMS IV (15:30)
--- NOTE | 2024-02-13 17:05 | W.CON.NEPH ---
Consultation
-
Date/Time Consultation Requested: 02/13/24 9:59AM
Date/Time Consultation Performed: 02/13/24 5:07PM
Requesting Provider: Royer Castillo
Performing Provider: Herminia Interiano
Reason for Consultation: ESRD on HD
Medical History
-
Chief Complaint: ESRD on HD
History of Present Illness:
Mr. Soliz is a 33 YOM with PMH of HTN, ESRD on HD (MWF), PE, constipation, depression, anxiety, substance abuse who presents to the hospital with abdominal pain. Denies fevers, chills. States the pain is crampy and associated with some nausea. Has
some SOB and peripheral edema. He was recently at another hospital and went on to his HD unit for dialysis but only stayed for half of his treatment. His fistula also infiltrated. He had a CT scan of the abdomen in the ER that found some
nonspecific findings. He also was noted to be hypertensive and hyperglycemic. Blood pressure initially 202/119. Blood sugar initially 576. Follow-up blood pressure after administration of medication 133/92. Follow-up blood sugar after insulin,
213.
Past Medical History
Hypertension
end-stage renal disease on hemodialysis
PE
constipation
CHF
pleural effusions
depression/ anxiety
polysubstance abuse
Past Surgical History: Appendectomy and Other (fistula placement )
Social History
Tobacco: Former Smoker
Alcohol: Binge Drinker
Drug: Former User
Employment: Not Employed
Family History
Family History: Not Pertinent
Allergies / Home Medications
Allergy/AdvReac Type Severity Reaction Status Date / Time
shellfish derived Allergy Hives Verified 02/04/24 00:56
�Medication �Instructions �Recorded �Confirmed �Type
amlodipine 10 mg tablet 10 mg PO DAILY Blood pressure 04/22/21 02/13/24 History
carvedilol 25 mg tablet (Coreg) 25 mg PO BID Blood pressure 04/22/21 02/13/24 History
furosemide 40 mg tablet 40 mg PO BID Fluid 04/22/21 02/13/24 History
retention/Swelling
metoclopramide HCl 10 mg tablet 10 mg PO TIDPRN PRN nausea 04/07/23 02/13/24 History
(Reglan)
oxcarbazepine 150 mg tablet 150 mg PO DAILY Mental 07/24/23 02/13/24 History
Health/Anxiety
trazodone 50 mg tablet 25 mg PO HS sleep 01/05/24 02/13/24 History
Patient Own Insulin Pump 0 units SC .VIA PUMP diabetes 02/13/24 02/13/24 History
Review of Systems
-
History Source: Patient
All other systems: Negative unless noted
Constitutional: Weight Gain
Respiratory: Trouble Breathing
Abdomen/GI: Abdominal Pain and Nausea
Musculoskeletal: Edema
Physical Exam
Vital Signs
Vital Signs
Temp Pulse Resp BP Pulse Ox
98.1 F 87 16 132/84 97
02/13/24 15:29 02/13/24 15:29 02/13/24 15:29 02/13/24 15:29 02/13/24 15:29
Lab Results
WBC 4.1 10^3/uL (4.8-10.8) L 02/13/24 06:10
RBC 3.22 10^6/uL (4.70-6.10) L 02/13/24 06:10
Hgb 10.6 g/dL (13.0-18.0) L 02/13/24 06:10
Hct 31.7 % (39.0-52.0) L 02/13/24 06:10
Plt Count 203 10^3/uL (130-400) 02/13/24 06:10
Sodium 130 mmol/L (135-145) L 02/13/24 10:16
Potassium mmol/L (3.5-5.1) 02/13/24 10:16
Chloride 98 mmol/L (98-107) 02/13/24 10:16
Carbon Dioxide 24 mmol/L (22-30) 02/13/24 10:16
BUN 55 mg/dl (9-20) H 02/13/24 10:16
Creatinine 5.5 mg/dL (0.7-1.3) H* 02/13/24 10:16
eGFR 13.26 02/13/24 10:16
Glucose 213 mg/dl (70-99) H 02/13/24 10:16
Calcium 8.6 mg/dl (8.4-10.2) 02/13/24 10:16
Albumin 3.8 g/dl (3.5-5.0) 02/13/24 06:10
Physical Exam
General: AOx3
HEENT: PERRL, EOMI, Anicteric, Conjunctivae Clear, Ear/Nose Intact and Hearing Normal
Respiratory: Crackels
Cardiac: S1/S2, Regular Rate/Rhythm and Edema
Breast: N/A
Abdomen: Soft, Nontender, Nondistended and Normal Bowel Sounds
Rectal: Deferred by Provider
Musculoskeletal: No Clubbing, No Cyanosis and Edema
Skin: No Rash, Warm and Dry
Neuro: Nonfocal/Grossly Intact
Psych: Appropriate
Assessment/Plan
-
Assessment:
Abd pain
ESRD on HD MWF
Hyperglycemia
Hypertension
DM
pulmonary HTN
Aneimia
LUE AVF
Hx of PD, s/p catheter removal
ETOH
Plan:
- plan for HD today per usual MWF schedule
- will try to maximize UF
Data Reviewed
-
CT Scan: Report Reviewed by me
Labs: Labs Reviewed by me and Discussed with Patient
Old Records: Reviewed
[2024-02-13 17:09] LABS: Glucose - Point of Care 156 mg/dl (70-99)
--- NOTE | 2024-02-13 17:18 | W.PN.NEPH.HD ---
Assessment
-
- sleeping comfortably on HD
Progress Note - Hemodialysis
-
Date of Service: February 13, 2024
Duration: 30 minutes and 3 hours
Potassium Bath: 3
Calcium Bath: 2.5
Opti-Dialyzer: 160
Ultrafiltration: Other
Blood Flow: 400
Dialysate Flow: 600
--- NOTE | 2024-02-13 17:32 | W.PN.UPDATE ---
Update Note
Progress Note Update
For billing purposes
[2024-02-13] MEDS: NSS (PRESERVATIVE FREE) 10 ML IV (17:55)
[2024-02-13] MEDS: BENADRYL 25 MG PO (17:55)
[2024-02-13] MEDS: PROTONIX IV 40 MG IV (17:55)
[2024-02-13] MEDS: PT'S OWN INSULIN PUMP - NovoLOG SC ×2 (17:56→22:03)
[2024-02-13 21:39] LABS: Glucose - Point of Care 157 mg/dl (70-99)
[2024-02-13] MEDS: DESYREL 25 MG PO (22:01)
[2024-02-13] MEDS: REGLAN 5 MG PO (22:03)
[2024-02-14] VITALS (8 sets, daily range): BP systolic 96–130; BP diastolic 55–87; BMI 23.3
[2024-02-14] MEDS: DILAUDID 0.5 MG IV ×5 (00:39→20:02)
[2024-02-14 07:01] LABS: Glucose - Point of Care 143 mg/dl (70-99)
[2024-02-14 08:11] LABS: % Basophils 1.3 % (0-2); % Eosinophils 3.1 % (0-6); % Immature Granulocytes 0.3 % (0-0.5); % Lymphocytes 33.8 % (20.5-51.1); % Neutrophils 52.5 % (42.2-75.2); Absolute Basophils 0.1 10^3/uL (0-0.2); Absolute Eosinophils 0.1 10^3/uL (0-0.7); Absolute Lymphocytes 1.3 10^3/uL (1.2-3.4); Absolute Monocytes 0.4 10^3/uL (0.1-0.6); Absolute Neutrophils 2.1 10^3/uL (1.4-6.5); Hematocrit 32.5 % (39.0-52.0); Hemoglobin 10.8 g/dL (13.0-18.0); Mean Corp Hgb Conc. 33.2 g/dL (33.0-37.0); Mean Corpuscular Hgb 33.2 pg (27.0-31.0); Mean Platelet Volume 10.3 fL (7.4-10.4); Nucleated Red Blood Cells % 0 % (-); Platelet Count 191 10^3/uL (130-400); Red Blood Cell Count 3.25 10^6/uL (4.70-6.10); Red Cell Dist. Width 17.4 % (11.5-14.5); White Blood Cell Count 3.9 10^3/uL (4.8-10.8)
--- NOTE | 2024-02-14 08:26 | W.PN.HOSP.TC ---
Today's Communication/Plan
-
Diet. Pain control.
Assessment / Plan
Assessment / Plan
Physical exam:
General: No distress. Nontoxic
HEENT: Normocephalic, Atraumatic and Moist Mucous Membranes
Respiratory: Clear to Auscultation; Negative Wheezes, Rales or Rhonchi
Cardiac: Regular Rhythm and S1/S2
GI: Soft, mild tender and Nondistended
Musculoskeletal: Bilateral edema in both upper extremity lower extremities. No Clubbing, No Cyanosis
Neuro: Awake, Alert and Oriented
Psych: Anxious
A/P:
Impression:
Volume overload, end-stage renal disease on hemodialysis
Abdominal pain
Diabetes mellitus type 1 with hyperglycemia (mild DKA/HHS resolved)
Hypertensive urgency
Conditions prior to presentation:
Hypertension
Diabetes mellitus type 1 on insulin pump with diabetic retinopathy
End-stage renal disease on hemodialysis
Alcohol use disorder
Chronic pleural effusions
Anemia
History of PE in the past
Depression anxiety
Narcotic use disorder
PLAN:
Continue pain control but plan to decrease over the next 24 hours.
Continue Reglan
Tolerating diet
Appreciated GI consult
Continue insulin sliding scale
Continue his insulin pump
Appreciated diabetic WEED SPRAYER input
Appreciated nephrology consult
Alcohol withdrawal protocol but has not required benzodiazepine
Discontinue thiamine and folic since patient refused.
Heparin SQ for DVT prophylaxis (patient refuses as well but discussed the importance of DVT prophylaxis).
CODE STATUS full code
Anticipated Discharge: 24 - 48 hours
Subjective/Interval History
-
Date of Service: February 14, 2024
Patient doing better today although still has some abdominal pain. No nausea or vomiting.
Objective Data
-
Labs:
Laboratory Results
02/14/24
07:52
WBC 3.9 L
Hgb 10.8 L
Hct 32.5 L
Plt Count 191
Sodium Pending
Potassium Pending
Chloride Pending
Carbon Dioxide Pending
BUN Pending
Creatinine Pending
Glucose Pending
Calcium Pending
Vital Signs:
Vital Signs
Temp Pulse Resp BP Pulse Ox
98.0 F 80 14 119/76 97
02/14/24 07:35 02/14/24 07:35 02/14/24 07:35 02/14/24 07:35 02/14/24 07:35
[2024-02-14 08:28] LABS: Glycohemoglobin (HgbA1c) 9.7 % (4.0-5.6)
[2024-02-14 08:37] LABS: Blood Urea Nitrogen 34 mg/dl (9-20); Calcium 8.3 mg/dl (8.4-10.2); Carbon Dioxide 28 mmol/L (22-30); Chloride 96 mmol/L (98-107); Estimated Creatinine Clearance 25 ml/min; Glucose 137 mg/dl (70-99); Potassium 4.4 mmol/L (3.5-5.1); Sodium 130 mmol/L (135-145); eGFR 20.03
[2024-02-14] MEDS: PT'S OWN INSULIN PUMP - NovoLOG 2 UNIT SC (08:54)
[2024-02-14] MEDS: THIAMINE INJECTION IV (08:56)
[2024-02-14] MEDS: HEPARIN SC ×3 (08:56→23:23)
[2024-02-14] MEDS: REGLAN 5 MG PO ×3 (08:57→22:06)
[2024-02-14] MEDS: FOLVITE PO (08:57)
[2024-02-14] MEDS: COREG 25 MG PO ×2 (08:57→20:02)
[2024-02-14] MEDS: NORVASC 10 MG PO (08:57)
[2024-02-14] MEDS: TRILEPTAL 150 MG PO (08:58)
[2024-02-14] MEDS: PROTONIX IV 40 MG IV (08:58)
[2024-02-14] MEDS: NSS (PRESERVATIVE FREE) 10 ML IV (08:58)
--- NOTE | 2024-02-14 08:59 | W.PN.GI.CBS2 ---
Today's Communication / Plan
-
Abd pain improved and tolerated all of diet after improvement in blood sugars and hemodialysis yesterday
C/w reglan ATC for known h/o gastroparesis
Close OP GI follow up, will sign off please call for questions
Assessment / Plan
-
Pt is a 33yo patient with care through [place] and [place] where he lived in past with hx multiple medical problems including IDDM with non compliance, prior PE, CHF, ESRD prior PD then HD, prior covid, pleural effusion, thoracentesis,
cholecystitis prior tip tube placement at [facility] without follow up cholecystectomy completed and gastroparesis. He was seen by GI in 05/2023 with good drainage from biliary tube and stable gastroparesis and GI signed off. Since that time he
has had multiple admissions since that time with leaving AMA is past. Last admission for in January with DKA then signed out AMA and ER visit 01/30 with also AMA. and now returns with right lower quadrant abdominal pain with nausea, vomiting. He
is also noted with increased edema, shortness of breath. On admission he is also noted with hypertension and hyperglycemia with hbg A1c 11.5 in January.
02/12 CT Abd/pel Without Iv Or Oral
possible GB edema, prior appe, moderate right pleural effusion, tiny pericardial effusion, new ascites,limited GI tract cannot exclude enteritis.
Impression:
-Right lower abdominal pain
-nausea/vomiting with hx gastroparesis
-hx prior tip tube
-multiple admission with DKA
-volume overload with DM
-hypertensive urgency
-IDDM since age 13 with non compliance
-CHF
-ESRD on PD then HD
-prior covid
-pleural effusion with prior tap
-osteomyelitis
Plan:
- Tolerating ADA diet add small freq meals
- C/w reglan 5mg ATC for known h/o gastroparesis
- Recommend improved control of blood sugar and A1c
- Nutritional education
- C/w PPI Daily
- Recommend close OP GI follow up (can consider HIDA scan OP basis)
At this juncture no new recs, GI will sign off please call for questions
Subjective
Subjective
Date of Service: February 14, 2024
Ate cheeseburger and tolerate all of dinner last night. Feels improved post dialysis. Denies any nausea or vomiting.
Objective
Data Reviewed
Laboratory Data:
Laboratory Results
02/14/24 07:52
02/14/24 07:52
Laboratory Results
Total Bilirubin 0.6 mg/dl (0.2-1.3) 02/13/24 06:10
AST 57 U/L (17-59) 02/13/24 06:10
ALT 33 U/L (0-50) 02/13/24 06:10
Alkaline Phosphatase 138 U/L (38-126) H 02/13/24 06:10
Lipase 129 U/L (23-300) 02/13/24 06:10
Vital Signs and I&O:
Vital Signs
Temp Pulse Resp BP Pulse Ox
98.0 F 80 14 119/76 97
02/14/24 07:35 02/14/24 07:35 02/14/24 07:35 02/14/24 07:35 02/14/24 07:35
Physical Exam
Physical Exam
GEN: No acute distress, conversant, appears older than stated age
HEENT: anicteric, extraocular movements intact, clear oropharynx without exudates
GI: soft, non-distended, mildly tender to palpation, normal active bowel sounds, no hepatosplenomegaly
EXT: warm, well perfused, trace edema bilaterally, skin tears and venous stasis changes on lower legs
NEURO: AAOx3, non-focal
[2024-02-14 11:32] LABS: Glucose - Point of Care 139 mg/dl (70-99)
[2024-02-14] MEDS: REGLAN PO ×2 (12:27→14:00)
[2024-02-14] MEDS: PT'S OWN INSULIN PUMP - NovoLOG 3 UNIT SC (12:29)
[2024-02-14 17:17] LABS: Glucose - Point of Care 91 mg/dl (70-99)
[2024-02-14] MEDS: PT'S OWN INSULIN PUMP - NovoLOG SC ×2 (17:24→22:09)
[2024-02-14] MEDS: BENADRYL 25 MG PO (20:04)
[2024-02-14 21:32] LABS: Glucose - Point of Care 124 mg/dl (70-99)
[2024-02-14] MEDS: DESYREL 25 MG PO (22:07)
[2024-02-15 00:42] VITALS: BMI 23.5
[2024-02-15] MEDS: DILAUDID 0.5 MG IV ×3 (00:55→09:01)
[2024-02-15 03:20] VITALS: BP 124/77
[2024-02-15 07:35] VITALS: BP 102/59
[2024-02-15 07:53] LABS: % Eosinophils 2.9 % (0-6); % Immature Granulocytes 0.5 % (0-0.5); % Monocytes 11.7 % (1.7-9.3); % Neutrophils 54.9 % (42.2-75.2); Absolute Eosinophils 0.1 10^3/uL (0-0.7); Absolute Lymphocytes 1.2 10^3/uL (1.2-3.4); Absolute Monocytes 0.5 10^3/uL (0.1-0.6); Absolute Neutrophils 2.3 10^3/uL (1.4-6.5); Hematocrit 35.2 % (39.0-52.0); Hemoglobin 11.1 g/dL (13.0-18.0); Mean Corp Hgb Conc. 31.5 g/dL (33.0-37.0); Mean Corpuscular Hgb 32.7 pg (27.0-31.0); Mean Corpuscular Volume 103.8 fL (80.0-94.0); Mean Platelet Volume 9.6 fL (7.4-10.4); Nucleated Red Blood Cells % 0 % (-); Platelet Count 193 10^3/uL (130-400); Red Blood Cell Count 3.39 10^6/uL (4.70-6.10); White Blood Cell Count 4.2 10^3/uL (4.8-10.8)
[2024-02-15 08:05] LABS: Glucose - Point of Care 106 mg/dl (70-99)
[2024-02-15 08:36] LABS: Blood Urea Nitrogen 48 mg/dl (9-20); Calcium 8.5 mg/dl (8.4-10.2); Carbon Dioxide 27 mmol/L (22-30); Chloride 95 mmol/L (98-107); Estimated Creatinine Clearance 19 ml/min; Glucose 110 mg/dl (70-99); Potassium 4.9 mmol/L (3.5-5.1); Sodium 130 mmol/L (135-145); eGFR 14.18
--- NOTE | 2024-02-15 08:49 | W.PN.HOSP.TC ---
Today's Communication/Plan
-
Discharge planning today
Assessment / Plan
Assessment / Plan
Physical exam:
General: No distress. Nontoxic
HEENT: Normocephalic, Atraumatic and Moist Mucous Membranes
Respiratory: Clear to Auscultation; Negative Wheezes, Rales or Rhonchi
Cardiac: Regular Rhythm and S1/S2
GI: Soft, no tender and Nondistended
Musculoskeletal: Bilateral edema in both upper extremity lower extremities. No Clubbing, No Cyanosis
Neuro: Awake, Alert and Oriented
Psych: Anxious
A/P:
Impression:
Volume overload, end-stage renal disease on hemodialysis
Abdominal pain
Diabetes mellitus type 1 with hyperglycemia (mild DKA/HHS resolved)
Hypertensive urgency
Conditions prior to presentation:
Hypertension
Diabetes mellitus type 1 on insulin pump with diabetic retinopathy
End-stage renal disease on hemodialysis
Alcohol use disorder
Chronic pleural effusions
Anemia
History of PE in the past
Depression anxiety
Narcotic use disorder
PLAN:
Stop pain medications
Continue Reglan
Tolerating diet
Appreciated GI consult
Continue insulin sliding scale
Continue his insulin pump
Appreciated diabetic CABLE PLACER input
Appreciated nephrology consult
Alcohol withdrawal protocol but has not required benzodiazepine
Discontinue thiamine and folic since patient refused.
Heparin SQ for DVT prophylaxis (patient refuses as well but discussed the importance of DVT prophylaxis).
CODE STATUS full code
Anticipated Discharge: Today
Subjective/Interval History
-
Date of Service: February 15, 2024
Patient very eager to go home and saw him outside of his room.
Objective Data
-
Labs:
Laboratory Results
02/15/24
07:38
WBC 4.2 L
Hgb 11.1 L
Hct 35.2 L
Plt Count 193
Sodium 130 L
Potassium 4.9
Chloride 95 L
Carbon Dioxide 27
BUN 48 H
Creatinine 5.2 H*
Glucose 110 H
Calcium 8.5
Vital Signs:
Vital Signs
Temp Pulse Resp BP Pulse Ox
97.5 F 76 14 102/59 96
02/15/24 07:35 02/15/24 07:35 02/15/24 07:35 02/15/24 07:35 02/15/24 07:35
I&O
02/14/24 02/15/24 02/16/24
06:59 06:59 06:59
Intake Total 840 / 840
Balance 840 / 840
[2024-02-15] MEDS: REGLAN 5 MG PO (08:58)
[2024-02-15] MEDS: COREG 25 MG PO (08:58)
[2024-02-15] MEDS: TRILEPTAL 150 MG PO (08:58)
[2024-02-15] MEDS: HEPARIN SC (08:59)
[2024-02-15] MEDS: NORVASC 10 MG PO (08:59)
[2024-02-15] MEDS: PROTONIX IV 40 MG IV (08:59)
[2024-02-15] MEDS: NSS (PRESERVATIVE FREE) 10 ML IV (08:59)
[2024-02-15] MEDS: PT'S OWN INSULIN PUMP - NovoLOG 2 UNIT SC (10:44)
--- NOTE | 2024-02-15 10:59 | W.DCSUMMARY ---
Discharge Summary
Discharge Data
Date of Admission: 02/13/24
Date of Discharge: 02/15/24
-
Pending Results: No
Hospital Course
Patient 33 years old man history of diabetes mellitus, prior PE, end-stage renal disease on hemodialysis, CHF, pleural effusions, came into the hospital abdominal pain and significant hyperglycemia and significant hypertension. Patient had a CT
scan of the abdomen without contrast without significant abnormalities. GI consulted. He was placed on Reglan and pain medications. He improved and his abdominal pain substantially better. Nephrology consulted and took care of his hemodialysis
needs. His blood sugar improved back on his home regimen with insulin pump. His blood pressure improved back on his antihypertensive home regimen. Patient is eager to go home today. He will be discharged in stable condition today.
Discharge Plan
-
Patient Disposition: Home (Routine Discharge)
Discharge Diagnosis/Procedures: Abdominal pain felt to be gastroparesis related.
Diet: Low Cholesterol and Diabetic, Carb Controlled
Activity: As tolerated
Blood Work: Please PCP to order CBC, CMP within 1 week
Referrals:
Ashly Olivas MD [Active] - in two to four weeks
Herminia Interiano MD [Active] - in two to four weeks
Casper Arroyo MD [Family Provider] - in less than 1 week
Prescriptions:
Continued
furosemide 40 MG tablet
40 mg PO BID
carvedilol [Coreg] 25 MG tablet
25 mg PO BID
amlodipine 10 MG tablet
10 mg PO DAILY
metoclopramide HCl [Reglan] 10 mg Tablet
10 mg PO TIDPRN PRN (Reason: nausea)
oxcarbazepine 150 mg tablet
150 mg PO DAILY
trazodone 50 mg Tablet
25 mg PO HS
Patient Own Insulin Pump
0 units SC .VIA PUMP
Rx Instructions:
patient using novolog
Discharge Orders:
Discharge Patient (As Directed); Ordered 02/15/24
Ordered By: Royer Castillo
Discharge Date and Time
Discharge Date/Time: 02/15/24 11:46
Print Language: CANADIAN
--- NOTE | 2024-02-15 11:17 | PTCARENOTE ---
Patient stating he is going to leave AMA. MD made aware, DC order placed. IV removed by IV nurse, telemetry pack removed by patient and given to this RN. Discharge instructions reviewed with patient, patient verbalizes understanding. Patient
refusing wheelchair and staff escort, states he is going to 'wait outside and uber home.' Patient escorted to elevators by this RN. MD made aware of events.
--- NOTE | 2024-02-15 11:44 | CM ---
CM reviewed chart and noted dc order
Pt left hospital prior to IMM being issued
CM faxed HD flow-sheets and clinicals to [facility] ([phone])
Discharge Disposition- home, no needs
--- NOTE | 2024-02-15 13:21 | CHAP ---
Mr. Soliz welcomed me quietly this morning - said he was doing okay. He has support from his mother. Not talkative. He thanked me for coming, and I assured him we're here for him, if he has need.
== END 2024-02-15 11:46 | disposition home or self-care (01) | DRG 73 ==
LOC: 2 NORTH 10:15
PROVIDERS: Student in an Organized Health Care Education/Training Program; ADMITTING PHYSICIAN Hospitalist; CONSULT PHYSICIAN Internal Medicine Gastroenterology; CONSULT PHYSICIAN Student in an Organized Health Care Education/Training Program; EMERGENCY PHYSICIAN Emergency Medicine; FAMILY PHYSICIAN Internal Medicine
PROC: 5A1D70Z Performance of Urinary Filtration, Intermittent, Less than 6 Hours Per Day (ICD-10-PCS; 2024-02-13)
DX: E10.43 Type 1 diabetes mellitus with diabetic autonomic (poly)neuropathy (principal); N18.6 End stage renal disease; I13.2 Hypertensive heart and chronic kidney disease with heart failure and with stage 5 chronic kidney disease, or end stage renal disease; F17.210 Nicotine dependence, cigarettes, uncomplicated; I50.9 Heart failure, unspecified; I27.20 Pulmonary hypertension, unspecified; E10.22 Type 1 diabetes mellitus with diabetic chronic kidney disease; E10.319 Type 1 diabetes mellitus with unspecified diabetic retinopathy without macular edema; F41.9 Anxiety disorder, unspecified; E10.69 Type 1 diabetes mellitus with other specified complication; K31.84 Gastroparesis; I16.0 Hypertensive urgency; E78.00 Pure hypercholesterolemia, unspecified; E10.10 Type 1 diabetes mellitus with ketoacidosis without coma; F19.11 Other psychoactive substance abuse, in remission; F32.A Depression, unspecified; D64.9 Anemia, unspecified; F10.11 Alcohol abuse, in remission; Z96.41 Presence of insulin pump (external) (internal); Z99.2 Dependence on renal dialysis; Z91.013 Allergy to seafood; Z86.711 Personal history of pulmonary embolism; Z79.4 Long term (current) use of insulin; Z91.199 Patient's noncompliance with other medical treatment and regimen due to unspecified reason; Z86.16 Personal history of COVID-19
CPT/HCPCS: 71046; 74176; 80048; 80053; 82962; 83036; 83690; 85025; 93005; 96374; 96375; 99291; 99406; P9047

== ENCOUNTER 2024-02-16 23:57 | Inpatient (IN) | payer OTHER, SELFPAY ==
[2024-02-16 19:20] VITALS: BP 133/77
[2024-02-16 22:10] VITALS: BP 177/105
[2024-02-16 22:12] VITALS: BMI 24.6
[2024-02-16 22:21] LABS: Glucose - Point of Care 486 mg/dl (70-99)
[2024-02-16 22:45] LABS: % Basophils 0.8 % (0-2); % Eosinophils 1.9 % (0-6); % Immature Granulocytes 0.8 % (0-0.5); % Lymphocytes 16.3 % (20.5-51.1); % Monocytes 13.3 % (1.7-9.3); % Neutrophils 66.9 % (42.2-75.2); Absolute Eosinophils 0.1 10^3/uL (0-0.7); Absolute Lymphocytes 0.6 10^3/uL (1.2-3.4); Absolute Monocytes 0.5 10^3/uL (0.1-0.6); Absolute Neutrophils 2.4 10^3/uL (1.4-6.5); Hematocrit 31.5 % (39.0-52.0); Mean Corp Hgb Conc. 34.9 g/dL (33.0-37.0); Mean Corpuscular Hgb 33.4 pg (27.0-31.0); Mean Corpuscular Volume 95.7 fL (80.0-94.0); Mean Platelet Volume 10.2 fL (7.4-10.4); Nucleated Red Blood Cells % 0 % (-); Platelet Count 197 10^3/uL (130-400); Red Blood Cell Count 3.29 10^6/uL (4.70-6.10); Red Cell Dist. Width 16.9 % (11.5-14.5); White Blood Cell Count 3.6 10^3/uL (4.8-10.8)
[2024-02-16 23:00] VITALS: BP 193/106
[2024-02-16] MEDS: DILAUDID 0.5 MG IV (23:03)
[2024-02-16 23:04] VITALS: BP 192/101
[2024-02-16 23:12] LABS: ALT (SGPT) 37 U/L (0-50); AST (SGOT) 37 U/L (17-59); Albumin 3.6 g/dl (3.5-5.0); Alkaline Phosphatase 195 U/L (38-126); Blood Urea Nitrogen 48 mg/dl (9-20); Calcium 8.1 mg/dl (8.4-10.2); Carbon Dioxide 24 mmol/L (22-30); Chloride 94 mmol/L (98-107); Estimated Creatinine Clearance 20 ml/min; Glucose 506 mg/dl (70-99); Potassium 4.2 mmol/L (3.5-5.1); Sodium 128 mmol/L (135-145); Total Bilirubin 0.7 mg/dl (0.2-1.3); Total Protein 6.2 g/dl (6.3-8.2); eGFR 15.23
--- NOTE | 2024-02-16 23:18 | ED.GENMED ---
History of Present Illness
General
Chief Complaint: Abdominal Pain
Source: patient
Exam Limitations: none
Time Seen by Provider: 02/16/24 22:47
Nursing documentation reviewed up to this point in time: agreed with
Travel History
Have you had any contact with someone who has COVID-19?: No
Do you have any symptoms of coronavirus? Fever > 100 degrees, chills, cough, shortness of breath, sore throat, loss of taste or smell, muscle aches, or headache?: No
History of Present Illness
History of Present Illness:
Patient with history of insulin given diabetes and end-stage renal disease on hemodialysis (Friday, Friday, Friday), discharged in the hospital yesterday, returns to ED today secondary to worsening abdominal pain along with shortness of breath.
Patient states that he was only able to receive 2 hours of scheduled for session of dialysis today, secondary to possible malfunctioning of his fistula. Denies vomiting or diarrhea. Abdominal pain described as pressure, diffuse, without any
alleviating or exacerbating symptoms. Denies fever or chills. Denies coughing. Denies chest pain.
Past History
Past History
ED Past Medical History: CHF, HTN, IDDM, Renal failure (Dialysis M-W-F) and Other (ESRD, PE, Contipation, ESRD, TR, pulmonary hypertension, congestive heart failure, etc.)
ED Past Surgical History: Appendectomy and Other (Left AV fistula, biliary drain removed)
Patient has exhibited threatening behavior?: No
PSI?: No
Social History
Tobacco: Smoker
Alcohol: None
Drug: None
Personal: Single
Living: with family
Employment: Other
Family History
Family History: Other
Review of Systems
Review of Systems
Allergies reviewed?: Yes
All Other Systems: ROS reviewed and negative except as documented in HPI and ROS
Constitutional: Reports no symptoms
EENT: Reports no symptoms
Respiratory: Reports trouble breathing
Cardiac: Reports no symptoms
ABD/GI: Reports abdominal pain; Denies nausea or diarrhea
: Reports no symptoms
Musculoskeletal: Reports no symptoms
Skin: Reports no symptoms
Neurological: Reports no symptoms
Phy Exam
Physical Exam
Physical Exam:
Physical Exam
General: mild painful distress, not acutely ill. afebrile
Head: nc/at. eomi
Neck: supple. no meningeal signs.
Heart: s1/s2 regular rate and rhythm, no murmur. equal radial pulses.
Lungs: mild respiratory distress. clear bilaterally
Abdomen: normal bowel sounds. mild distention with diffuse tenderness to palpation
Neuro: alert and oriented. no focal neurological deficits
Skin: no rash
Psychiatric: well kept. interactive and cooperative
Extremities: no edema. no calf tenderness.
Course
Orders/Labs/Results
Orders:
Orders
02/16/24 22:37
B-Hydroxybutyrate Urgent
Comment: ADD ON
CMP [Comprehensive Metabolic Panel] Urgent
Complete Blood Count/With Diff Urgent
Magnesium Urgent
Comment: ADD ON
02/16/24 22:55
Add On- LAB Urgent
Tests Added?: magnesium, beta-hydroxybutyrate
HYDROmorphone [Dilaudid] 0.5 mg IV NOW STA
02/16/24 23:17
Insulin Human Regular [Novolin R] 10 units IV NOW STA
02/16/24 23:18
CR Chest - 2 Views Urgent
Comment:
Reason For Exam: sob
02/16/24 23:44
Admit/Transfer Patient As Directed
Co-Sign Provider:
Level of Care: Inpatient admission
Assign to:: Medical/Surgical
Physician / Group: aryan molina
Diagnosis: abdominal pain
Reason for Hospitalization: abdominal pain
Expected length of stay greater than two midnights?: Yes
ELOS- Estimated Length of Stay in days: 3
I certify the patient meets the requirements for IP care: Yes
02/16/24 23:45
Code Status As Directed
Resuscitation Status: Full Code
02/17/24 02:17
Acetaminophen [Tylenol] 650 mg PO Q4HPRN PRN
Bisacodyl [Dulcolax] 10 mg RECTAL [id number] PRN
Dextrose 50%-Water [Dextrose 50% Syringe] 12.5 grams IV [id number] PRN
Docusate W/Senna [Senokot-S] 1 tablet PO BIDPRN PRN
Glucagon [GlucaGen] 1 mg IM PRN PRN
HYDROmorphone [Dilaudid] 0.5 mg IV Q3HPRN PRN
HydrALAZINE [Apresoline] 5 mg IV Q6HPRN PRN
Metoclopramide [Reglan] 10 mg IV Q6HPRN PRN
Patient Own Insulin Pump See Dose Instructions SC .VIA PUMP
Polyethylene Glycol Powder [Miralax] 17 grams PO DAILYPRN PRN
02/17/24 02:17
Consult Notification Routine
Specialty to Notify: Nephrology
Diabetes Management by Nurse Practitioner Routine
Consulting Provider: Giuliana Bailey
Was provider already notified?: No
Reason for Consult: Insulin Management
NEPHROLOGY CONSULT Routine
Consulting Provider: Kulwinder Vigil V.
Was physician already notified: No
Reason for consult: ESRD
Activity As Directed
Activity Level: As Tolerated
Bedside Glucose Monitoring As Directed
Frequency: AC&HS
Comment: Change to q6h if pt on TPN, tube feeding or not eating
Intake/ Output As Directed
Frequency: Per unit guidelines
Vital Signs As Directed
Frequency: Per unit guidelines
Weight As Directed
Frequency: Daily
DX Deep Vein Thrombosis Video Routine
02/17/24 Breakfast
2200 calorie (18 carb) Diabetic
At Your Request: Full Participation
Does patient need a safe tray?: No
Fluid Restriction: 1200 mL/day (40 oz)
Basic Metabolic Panel IN AM
Complete Blood Count/No Diff IN AM
02/17/24 07:30
Insulin Aspart High Resistance [Novolog Flexpen-High Resistance] See Protocol SC AC
02/17/24 08:00
Amlodipine [Norvasc] 10 mg PO DAILY
Carvedilol [Coreg] 25 mg PO BID
Furosemide [Lasix] 40 mg PO BID
Heparin 5,000 units SC Q12
Oxcarbazepine [Trileptal] 150 mg PO DAILY
Pantoprazole [Protonix IV] 40 mg IV DAILY
02/17/24 22:00
Trazodone [Desyrel] 25 mg PO HS
02/18/24 06:00
Basic Metabolic Panel IN AM
Complete Blood Count/No Diff IN AM
02/19/24 06:00
Basic Metabolic Panel IN AM
Complete Blood Count/No Diff IN AM
02/20/24 06:00
Basic Metabolic Panel IN AM
Complete Blood Count/No Diff IN AM
02/21/24 06:00
Basic Metabolic Panel IN AM
Complete Blood Count/No Diff IN AM
Abnormal Lab Results
02/16/24 02/16/24
22:20 22:37
WBC 3.6 L 10^3/uL
(4.8-10.8)
RBC 3.29 L 10^6/uL
(4.70-6.10)
Hgb 11.0 L g/dL
(13.0-18.0)
Hct 31.5 L %
(39.0-52.0)
MCV 95.7 H fL
(80.0-94.0)
MCH 33.4 H pg
(27.0-31.0)
RDW 16.9 H %
(11.5-14.5)
Absolute Lymphs (auto) 0.6 L 10^3/uL
(1.2-3.4)
Immature Gran % 0.8 H %
(0-0.5)
Lymphocytes % 16.3 L %
(20.5-51.1)
Monocytes % 13.3 H %
(1.7-9.3)
Sodium 128 L mmol/L
(135-145)
Chloride 94 L mmol/L
(98-107)
BUN 48 H mg/dl
(9-20)
Creatinine 4.9 H* mg/dL
(0.7-1.3)
Glucose 506 H* mg/dl
(70-99)
Calcium 8.1 L mg/dl
(8.4-10.2)
Alkaline Phosphatase 195 H U/L
(38-126)
Total Protein 6.2 L g/dl
(6.3-8.2)
POC Glucose 486 H* mg/dl
(70-99)
02/16/24 22:37
02/16/24 22:37
Vital Signs
Initial and Last Documented VS:
Initial Vital Signs
Temp Pulse Resp BP Pulse Ox
98.8 F 92 18 133/77 91
02/16/24 19:20 02/16/24 19:20 02/16/24 19:20 02/16/24 19:20 02/16/24 19:20
Last Documented Vital Signs
Temp Pulse Resp BP Pulse Ox
98.8 F 92 18 169/97 95
02/16/24 19:20 02/16/24 19:20 02/16/24 19:20 02/17/24 02:23 02/17/24 02:30
MDM/Problems Addressed
MDM/Problems Addressed:
Blood work significant for hyperglycemia, without anion gap. Pt with ongoing abdominal pain with extensive work during recent admission, including CT abdomen pelvis. No further imaging study warranted at this time. Patient will be admitted for
further evaluation, including pain control, blood sugar control, as well as dialysis.
*Critical Care Note
Total Time (30-74mins, 75-104mins- exclusive of procedures): Not Applicable
ED Attending Note
-
Portions of this chart may have been created with voice recognition software.� Occasional wrong word or��sound alike� substitutions may have occurred due to the inherent limitations of voice recognition software.
Discharge Plan
Departure
Patient Disposition: Admit
Date of Disposition: 02/16/24
Time of Disposition: 23:28
Presentation/result/management discussed w/ accepting MD/DO: Hospitalist
Discharge Problem:
Abdominal pain, ESRD on dialysis, Hyperglycemia
Interventions
Interventions:
*Risk Screen - Suicide Last Done: 02/16/24 19:20
*General Assessment Last Done: 02/16/24 22:14
*Neglect/Abuse Screening Last Done: 02/16/24 19:20
ED- Fall Risk Assessment Last Done: 02/17/24 02:39
*ED COVID-19 Vaccine History Last Done: 02/16/24 22:14
PA-Ynqcsa-Iuwahznujy Assessment Last Done: 02/16/24 22:14
ED- Cardiac Assessment Last Done: 02/16/24 22:14
ED- Pulmonary Assessment Last Done: 02/16/24 22:14
[2024-02-16 23:21] LABS: Magnesium 2.1 mg/dl (1.6-2.3)
--- NOTE | 2024-02-16 23:25 | HPS.HSE ---
Family Physician
-
Family Physician: Casper Arroyo
Chief Complaint
-
sob
abdominal pain
History of Present Illness
33 year old with PMH for congestive heart failure, hypertension, type 1 diabetes renal failure on dialysis Friday presented to us with abdominal pain and short of breath . Patient was just discharged yesterday. He only got 2 hours
of dialysis today. Patient stated his fistula was not working . Patient complains of abdominal pain associate with nausea vomiting .denied diarrhea .patient complaining of short of breath denied any chest pain patient denied any headache,
dizziness, syncopal episode
On arrival noted elevated blood sugar. Patient received 10 units of insulin in ER. Admitting for further management.
Medical History
Past Medical History
Past Medical History: Reports Other
Additional Past Medical History:
ypertension, end-stage renal disease on hemodialysis, PE, constipation, CHF, pleural effusions, depression anxiety, alcohol use disorder in the past, narcotic use disorder in the past
Past Surgical History: Reports Other
Additional Past Surgical History:
Left IV distal, biliary drain removed in the past, appendectomy.
Social History
Tobacco: Smoker (Half a pack a day)
Alcohol: Former
Drug: None
Family History
Family History: Not pertinent
Allergies / Home Medications
Allergies reflects when Allergies were last updated in [employer].
Home Medications with original date entered in [employer]
Allergy/Medication List:
Allergies
Allergy/AdvReac Type Severity Reaction Status Date / Time
shellfish derived Allergy Hives Verified 02/16/24 19:21
Home Medications
amlodipine 10 mg tablet 10 mg PO DAILY Blood pressure 04/22/21
carvedilol 25 mg tablet (Coreg) 25 mg PO BID Blood pressure 04/22/21
furosemide 40 mg tablet 40 mg PO BID Fluid retention/Swelling 04/22/21
metoclopramide HCl 10 mg tablet (Reglan) 10 mg PO TIDPRN PRN nausea 04/07/23
oxcarbazepine 150 mg tablet 150 mg PO DAILY Mental Health/Anxiety 07/24/23
trazodone 50 mg tablet 25 mg PO HS sleep 01/05/24
Patient Own Insulin Pump 0 units SC .VIA PUMP diabetes 02/13/24
Review of Systems
-
Constitutional: Reports No Symptoms
EENT: Reports No Symptoms
Respiratory: Reports Trouble Breathing
Cardiac: Reports No Symptoms
Abdomen/GI: Reports Abdominal Pain, Nausea and Vomiting
: Reports No Symptoms
Musculoskeletal: Reports No Symptoms
Skin: Reports No Symptoms
Neurological: Reports No Symptoms
Endocrine: Reports No Symptoms
Hematologic/Lymphatic: Reports No Symptoms
Psych: Reports No Symptoms
Physical Exam
Vital Signs
Vital Signs
Temp Pulse Resp BP Pulse Ox
98.8 F 92 18 193/106 94
02/16/24 19:20 02/16/24 19:20 02/16/24 19:20 02/16/24 23:00 02/16/24 23:00
Physical Exam
General: Well Developed, Well Nourished and No Apparent Distress
HEENT: NormoCephalic, Moist mucous membranes and Atraumatic
Respiratory: Decreased Breath Sounds
Cardiac: S1/S2 and Regular Rhythm; No Murmur or Rub
GI: Soft, Non Tender, Non Distended and Normal Bowel Sounds; No Organomegaly
Rectal: Deferred by Provider
Musculoskeletal: No Clubbing, No Cyanosis and No Edema
Skin: No Rash
Neuro: AO x 3 and Nonfocal/grossly intact
Psych: Calm
Laboratory Results
-
02/16/24 22:37
02/16/24 22:37
Laboratory Results
Total Bilirubin 0.7 mg/dl (0.2-1.3) 02/16/24 22:37
AST 37 U/L (17-59) 02/16/24 22:37
ALT 37 U/L (0-50) 02/16/24 22:37
Alkaline Phosphatase 195 U/L (38-126) H 02/16/24 22:37
Data Reviewed
-
Lab Data: Labs Reviewed by me
Impression/Plan
-
# Abdominal pain associate with nausea/vomiting/history of gastroparesis
-Reglan continued
-Dilaudid prn for pain
-IV PPI
# Left upper extremity fistula malfunction
-Positive bruit and thrill
-ctm
# Short of breath likely from fluid overload /end Stage renal dialysis
-On dialysis Friday
-nephrology consulted
# Anemia of chronic kidney disease
-Hemoglobin 11.0
-No active bleeding
-Continue to monitor
# Chronic hyponatremia
-Fluid restriction
Nephrology consulted
# Type 1 diabetes with hyperglycemia
-Blood sugar in the 500s
-Insulin 10 units in the ER
-Insulin sliding scale continued
-Insulin pump continued
-Diabetic [employer]ISATION MANAGER consulted
# Hypertension emergency
-Norvasc continued
-Coreg continued
-Furosemide continued
-hydralazine prn for SBP>160,DBP>60
# Depression/anxiety
-Oxcarbazepine continued
-Trazodone continued
# DVT prophylaxis
-Heparin subcu
# CODE STATUS
-Full code
[2024-02-16 23:31] LABS: B-Hydroxybutyrate 0.14 mmol/L (0.02-0.27)
[2024-02-16] MEDS: NOVOLIN R 10 UNITS IV (23:52)
[2024-02-17] VITALS (22 sets, daily range): BP systolic 73–190; BP diastolic 57–104; BMI 24.6
--- NOTE | 2024-02-17 00:09 | W.PN.UPDATE ---
Update Note
Progress Note Update
This note serves as an addendum to the H&P by over short and damage clerk AVINASH Lynn ALEJO on 02/16/24
HPI
33M HX HD ( MWF ) dependent ESRD, IDDM on insulin pump, CHF, PHT, current smoker, HX multiple AMS in the past who was admitted from 02/13/24 - 02/17/24 for abdominal pain and significant hyperglycemia and significant hypertension.
Today He only got 2 hours of dialysis today. Patient stated his fistula was not working .
Patient complains of chronic abdominal pain associate with nausea vomiting return to ER
Per DC summary for recent admission: 02/13/24 - 02/15/[address] a [address] scan of the abdomen without contrast without significant abnormalities. GI consulted. He was placed on Reglan and pain medications. He improved and his abdominal pain substantially better. Nephrology consulted and took care of
his hemodialysis needs. His blood sugar improved back on his home regimen with insulin pump. His blood pressure improved back on his antihypertensive home regimen. He was discharged on 02/15/24.
ROS:
No diarrhea
No CP
On arrival noted elevated blood sugar.
Patient received 10 units of insulin in ER.
PHX: see HPI
Vital Signs
Temp Pulse Resp BP Pulse Ox
98.8 F 92 18 193/106 94
02/16/24 19:20 02/16/24 19:20 02/16/24 19:20 02/16/24 23:00 02/16/24 23:00
PE
General: Conversant and Appears in Distress (mild )
HEENT: NormoCephalic, Anicteric and Moist mucous membranes
Respiratory: Other (decreased BS at Rt base ); No Wheezes
Cardiac: S1/S2 and Regular Rhythm
Breast: Deferred by me
GI: Soft, Non Tender
Rectal: Deferred by Provider
Genito-urinary: Deferred by me
Musculoskeletal: Other (Nonpitting in the lower extremities )
Skin: Warm
Neuro: Awake and AO x 3
Psych: Calm
Abnormal Lab Results
02/16/24 02/16/24
22:20 22:37
WBC 3.6 L
RBC 3.29 L
Hgb 11.0 L
Hct 31.5 L
MCV 95.7 H
MCH 33.4 H
RDW 16.9 H
Absolute Lymphs (auto) 0.6 L
Immature Gran % 0.8 H
Lymphocytes % 16.3 L
Monocytes % 13.3 H
Sodium 128 L
Chloride 94 L
BUN 48 H
Creatinine 4.9 H*
Glucose 506 H*
Calcium 8.1 L
Alkaline Phosphatase 195 H
Total Protein 6.2 L
POC Glucose 486 H*
Last hospitalist admission: 02/13/24 - 02/15/24
ASSESSMENT & PLAN
Recurrent and persistent chronic abdominal pain with recurrent N/V
HX gastroparesis
Prior HX US and CT suggestive of GB edema and no CBD dilatation but unremarkable LFTS
- Reglan continued
- Dilaudid prn for pain
- IV PPI
Volume overload with Anasarca
Today He only got 2 hours of dialysis today. Patient stated his fistula was not working ???
HX ESRD malena HD M/W/F via left UE AVF.
HX chr HFpEF
Known severe PHT
- FR
- low K diet
- Vol. is managed by HD
- Renal consult for additional HD
Hyperglycemia: BG 500s
HX DKA, IDDM
- Insulin 10 units in the ER
- cont. Insulin pump continued
- Diabetic GOLD MARKER consulted
Hypertension emergency
Essential HTN poorly control
- Additional volume removal at HD
- Furosemide continued
- continue amlodipine and carvedilol per home
- add IV Hydralazine PRN for SBP >16, DBP > 110
HX binge drinking
Denies regular ETOH intake
No clinical evidence acute ETOH WDS - - NOT drinking for weeks
- Observe
DVT PPX SQH
Full code
IP TLM
[2024-02-17] MEDS: DILAUDID 0.5 MG IV ×7 (02:21→23:19)
[2024-02-17] MEDS: TYLENOL 650 MG PO ×2 (02:36→20:28)
[2024-02-17 06:56] LABS: Hematocrit 31.5 % (39.0-52.0); Hemoglobin 10.7 g/dL (13.0-18.0); Mean Corpuscular Hgb 33.4 pg (27.0-31.0); Mean Corpuscular Volume 98.4 fL (80.0-94.0); Mean Platelet Volume 9.8 fL (7.4-10.4); Platelet Count 184 10^3/uL (130-400); White Blood Cell Count 3.6 10^3/uL (4.8-10.8)
[2024-02-17 07:33] LABS: Blood Urea Nitrogen 52 mg/dl (9-20); Calcium 8.3 mg/dl (8.4-10.2); Carbon Dioxide 25 mmol/L (22-30); Chloride 96 mmol/L (98-107); Estimated Creatinine Clearance 18 ml/min; Glucose 501 mg/dl (70-99); Potassium 4.4 mmol/L (3.5-5.1); Sodium 131 mmol/L (135-145); eGFR 13.55
[2024-02-17] MEDS: LASIX 40 MG PO (09:19)
[2024-02-17] MEDS: NORVASC 10 MG PO (09:20)
[2024-02-17] MEDS: COREG 25 MG PO ×2 (09:20→20:13)
[2024-02-17] MEDS: PROTONIX IV 40 MG IV (09:20)
[2024-02-17] MEDS: NSS (PRESERVATIVE FREE) 10 ML IV (09:21)
--- NOTE | 2024-02-17 09:40 | EDRN ---
Attending hospitalist notified of pt's am labs, BGL of 501, awaiting orders. Pt states that his insulin pump is working, and delivering Novolog. Pharmacy waiting for MD orders regarding pump vis a vis novolog pen.
[2024-02-17] MEDS: TRILEPTAL 150 MG PO (09:50)
--- NOTE | 2024-02-17 10:32 | W.CON.NEPH ---
Consultation
-
Date/Time Consultation Requested: 02/16/2024 11:30 PM
Date/Time Consultation Performed: 02/17/2024 10:30 AM
Requesting Provider: Deidre
Performing Provider: Musa
Reason for Consultation: ESRD
Medical History
-
Chief Complaint: End-stage renal disease
History of Present Illness:
Mr. Soliz is a 33 year old male with PMH of HTN (on amlodipine and carvedilol), ESRD on HD (MWF), DM on insulin pump, PE, constipation, depression, anxiety (on oxcarbazepine and trazodone), substance abuse who presented to the hospital with
abdominal pain last week. He was admitted and then discharged on 02/13/2024. During his previous hospitalization there had been issues with fistula infiltration. He presented to the emergency room last night again after having 2hrs of HD yesterday
at which point his AVF apparently stopped working. On arrival to the hospital last evening he complained of continued abdominal pain with nausea and vomiting his blood sugars were also notably elevated. We were consulted for his end-stage renal
disease manage
Past Medical History
end-stage renal disease on hemodialysis
PE
constipation
CHF
pleural effusions
depression/ anxiety
polysubstance abuse
Diabetes
Left upper extremity AV fistula
Pulmonary hypertension
Social History
Polysubstance abuse
Family History
No CKD
Allergies / Home Medications
Allergy/AdvReac Type Severity Reaction Status Date / Time
shellfish derived Allergy Hives Verified 02/16/24 19:21
�Medication �Instructions �Recorded �Confirmed �Type
amlodipine 10 mg tablet 10 mg PO DAILY Blood pressure 04/22/21 02/16/24 History
carvedilol 25 mg tablet (Coreg) 25 mg PO BID Blood pressure 04/22/21 02/16/24 History
furosemide 40 mg tablet 40 mg PO BID Fluid 04/22/21 02/16/24 History
retention/Swelling
metoclopramide HCl 10 mg tablet 10 mg PO TIDPRN PRN nausea 04/07/23 02/16/24 History
(Reglan)
oxcarbazepine 150 mg tablet 150 mg PO DAILY Mental 07/24/23 02/16/24 History
Health/Anxiety
trazodone 50 mg tablet 25 mg PO HS sleep 01/05/24 02/16/24 History
Patient Own Insulin Pump 0 units SC .VIA PUMP diabetes 02/13/24 02/16/24 History
Review of Systems
-
History Source: Patient
Constitutional: No Symptoms
EENT: No Symptoms
Respiratory: Other (Shortness of breath on oxygen)
Cardiac: No Symptoms
Abdomen/GI: Abdominal Pain and Nausea
: Other (Essentially an uric)
Musculoskeletal: Edema (Peripheral pitting edema noted)
Skin: Other (Crusted lesions along lower extremities)
Neurological: Numbness (And lower extremity)
Hematologic/Lymphatic: Other (Left upper extremity AV fistula)
Physical Exam
Vital Signs
Vital Signs
Temp Pulse Resp BP Pulse Ox
98.8 F 76 16 161/100 97
02/16/24 19:20 02/17/24 09:18 02/17/24 09:18 02/17/24 09:18 02/17/24 09:18
Lab Results
02/17/24 06:39
02/17/24 06:39
WBC 3.6 10^3/uL (4.8-10.8) L 02/17/24 06:39
RBC 3.20 10^6/uL (4.70-6.10) L 02/17/24 06:39
Hgb 10.7 g/dL (13.0-18.0) L 02/17/24 06:39
Hct 31.5 % (39.0-52.0) L 02/17/24 06:39
Plt Count 184 10^3/uL (130-400) 02/17/24 06:39
Sodium 131 mmol/L (135-145) L 02/17/24 06:39
Potassium 4.4 mmol/L (3.5-5.1) 02/17/24 06:39
Chloride 96 mmol/L (98-107) L 02/17/24 06:39
Carbon Dioxide 25 mmol/L (22-30) 02/17/24 06:39
BUN 52 mg/dl (9-20) H 02/17/24 06:39
Creatinine 5.4 mg/dL (0.7-1.3) H* 02/17/24 06:39
eGFR 13.55 02/17/24 06:39
Glucose 501 mg/dl (70-99) H* 02/17/24 06:39
Calcium 8.3 mg/dl (8.4-10.2) L 02/17/24 06:39
Albumin 3.6 g/dl (3.5-5.0) 02/16/24 22:37
Physical Exam
General: AOx3, No Distress and Nontoxic
HEENT: PERRL, EOMI, Anicteric, Conjunctivae Clear, Ear/Nose Intact, Hearing Normal, Oropharynx Clear/Moist, Facial Symmetry, Neck Supple, Trachea Midline, No JVD and No Thyromegaly
Respiratory: Normal Excursion and Other (Coarse bilaterally with decreased sounds in the right lower base)
Cardiac: S1/S2 and Regular Rate/Rhythm
Breast: Deferred by me
Abdomen: Soft, Nontender, Nondistended, Normal Bowel Sounds and No Hepatosplenomegaly
Rectal: Deferred by Provider
Genito-urinary: No Costovertebral Tender
Musculoskeletal: No Cyanosis and Edema (+1 pretibial pitting edema to knees)
Skin: No Rash, Warm, Dry, No Clubbing, No Cyanosis, Normal Turgor and Other (Noted various crusting lesions along lower extremities)
Neuro: Nonfocal/Grossly Intact (Notable for decreased neuro sensorium below knees) and Strength (5 out of 5 in both upper and lower extremity)
Hematologic/Lymphatic: No Cervical Lymphadenopathy, No Submandibular Lymphadenopathy, No Supraclavicular Lymphadenopathy and Other (Left upper extremity with AV fistula good thrill and bruit some noted ecchymosis)
Psych: Mood/afflect pleasant and Insight/judgement good
Assessment/Plan
-
Impression:
ESRD MWF ([facility])
? AVF malfunction on HD
Hyperglycemia with diabetes
Pulmonary hypertension
Polysubstance abuse
Chronic abdominal pain
Anxiety
Anemia
Hypervolemia
Right pleural effusion
Plan:
-will attempt HD tomorrow, orders provided
-Will attempt to maximize ultrafiltration with dialysis given hypervolemia
-If AV fistula fails we will consult vascular surgery or IR for fistulogram, original fistula was placed by Dr. Eckert at [facility]
-AV fistula appears to have infiltrated but maintains good thrill and bruit
-PETE on dialysis for anemia
-Maintain antihypertensives for blood pressure control
-Glucose control per primary team
-Patient appears to need right thoracentesis for pleural effusion
-Placed fluid restriction and appropriate dietary restrictions in setting of ESRD
Data Reviewed
-
Radiology: Image Personally Visualized and interpreted (Personally reviewed chest x-ray right pleural effusion noted)
Labs: Labs Reviewed by me (BMP CBC)
Old Records: Reviewed
Critical Care Time (in minutes): Consultation from February 13, 2024 reviewed for ESRD in electronic medical
[2024-02-17] MEDS: NOVOLOG FLEXPEN-HIGH RESISTANCE 14 UNITS SC (10:39)
[2024-02-17 10:40] LABS: Glucose - Point of Care 442 mg/dl (70-99)
--- NOTE | 2024-02-17 10:45 | EDRN ---
Spoke with ED pharmacist, still unclear of orders for insulin coverage. Pt asked to remove his insulin pump and was given Novolog for repeat blood glucose of 442, pending eval by hospitalist.
[2024-02-17 11:45] LABS: Glucose - Point of Care 501 mg/dl (70-99)
--- NOTE | 2024-02-17 11:45 | W.PN.HOSP.TC ---
Today's Communication/Plan
-
Right thoracentesis.
Hemodialysis.
Bladder close management.
Assessment / Plan
Assessment / Plan
Impression:
Presentation with shortness of breath.
Volume overload.
Symptomatic right pleural effusion.
Diabetes with hyperglycemia
Conditions prior to admission:
End-stage renal disease on hemodialysis Friday.
Left upper extremity AV fistula.
Chronic abdominal pain secondary to gastroparesis
Diabetes type 1 with poor compliance on insulin pump
Essential hypertension.
Severe pulmonary hypertension.
Prior history of PD with catheter removed
History of alcohol use disorder.
Anxiety/depression
Plan:
Presentation with shortness of breath.
Clinically volume overloaded
Chest x-ray with at least moderate right pleural effusion
Chronic diastolic CHF with severe pulmonary hypertension as per echo 06/25.
Stable respiratory status.
[facility] consultation for right thoracentesis
Volume management with HD
End-stage renal disease on HD Friday
Left upper extremity AV fistula.
Patient reported clotting as outpatient and limited dialysis day prior to presentation.
Discussed with nephrology
Plan is for next HD session on 02/17.
Chronic chronic abdominal pain
Most recent imaging with CT scan of the abdomen pelvis without contrast as well as abdominal ultrasound consistent with edematous gallbladder likely function of anasarca and ascites.
Clinically less likely acute cholecystitis. Abdominal examination with no right upper quadrant tenderness. Normal liver function test and WBC.
Patient with known gastroparesis
Continue carbohydrate low diet
Continue Reglan
Continue PPI
Type 1 diabetes
Most recent hemoglobin A1c emanating from 07-14
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
Concern for malfunction given persistent hyperglycemia.
Continue basal bolus protocol at high resistant.
Diabetic nurse practitioner consultation
Essential hypertension
Continue amlodipine
Anticipated Discharge: 24 - 48 hours
Subjective/Interval History
-
Date of Service: February 17, 2024
Objective Data
-
Labs:
Laboratory Results
02/17/24
06:39
WBC 3.6 L
Hgb 10.7 L
Hct 31.5 L
Plt Count 184
Sodium 131 L
Potassium 4.4
Chloride 96 L
Carbon Dioxide 25
BUN 52 H
Creatinine 5.4 H*
Glucose 501 H*
Calcium 8.3 L
Vital Signs:
Vital Signs
Temp Pulse Resp BP Pulse Ox
98.8 F 76 16 131/89 97
02/16/24 19:20 02/17/24 09:18 02/17/24 09:18 02/17/24 10:00 02/17/24 10:30
Physical Exam
-
General: Well Developed and No Apparent Distress
HEENT: Normocephalic, Atraumatic and Moist Mucous Membranes
Respiratory: Clear to Auscultation
Cardiac: Regular Rhythm and S1/S2; Negative Murmur, Rub or Gallop
GI: Soft, Nontender, Nondistended and Normal Bowel Sounds; Negative Organomegaly
Rectal: Deferred by Provider
Musculoskeletal: No Clubbing, No Cyanosis and Other (Bilateral lower extremity edema)
Skin: Negative Rash
Neuro: Awake, Alert, Oriented, AO x 3 and Nonfocal/Grossly Intact
[2024-02-17] MEDS: NOVOLOG FLEXPEN-HIGH RESISTANCE 15 UNITS SC (11:55)
--- NOTE | 2024-02-17 12:11 | PN.DE.MGMTRT ---
Addendum entered and electronically signed by OSCAR Carrera 02/17/24 16:12:
Contacted by Nurse @1:55 that Pt's POC Glucose was 474. Instructed to give 10 units of NovoLog and repeat accuchek in 1 hr.
Pt's repeat POC glucose remained elevated at 425.
Discussed with Dr. Camacho and pt was initiated on Glycemic protocol for optimal glucose control.
Will re-evaluate in am readiness to transition back to his insulin pump.
Pt may transition to SQ insulin tonight if glucose remains <160 x2 hrs consecutively. Please give Lantus 25 units 1 hr prior to stop of drip. Start NovoLog 10 units AC with moderate corrective SS. Otherwise, pt will be seen by Diabetes team in am to
transition back to his insulin pump.
Original Note:
Insulin Management
- -
02/17/2024: Diabetes Management Consult
33 year old male who presented to the ER for AV Fistula infiltration. Pt is well known to me from previous admissions.
PMH of Acute on Chronic HFpEF, HTN (on amlodipine and carvedilol), ESRD on HD (MWF), T1DM on insulin pump, PE, constipation, depression, anxiety (on oxcarbazepine and trazodone), substance abuse. He is currently using a Medtronic [id number] pump with
NovoLog insulin and uses the Guardian sensor. He is noted for Persistent Hyperglycemia w/o acidosis. Cr 5.4, eGFR 13.55
Pt seen in the ED, awake, A/O x3, resting in bed, comfortably w/o complaints. States he is still nauseous but is able to tolerate food.
His insulin pump has been taken off due to concerns of it not working properly. Pt reports that his sugars were well controlled up until last evening.
Most recent accuchek is 501, he received 15 units if Aspart this am and repeat glucose was 515. Per Nurse he is about to receive another 15 units per high corrective insulin SS. Will give Lantus 25 units now. Start AC NovoLog 10 units.
Spoke to nurse and requested for repeat Accuchek in 1 hr to reassess need for further insulin dosing.
Diabetes History
- -
Type of Diabetes: 1
Pre-Admission Diabetes Regimen
02/16/24 02/17/24
22:37 06:39
Creatinine 4.9 H* 5.4 H*
Insulin Pump Settings
IP Diabetes Regimen
02/16/24 02/16/24 02/17/24
22:20 22:37 06:39
Glucose 506 H* 501 H*
POC Glucose 486 H*
02/17/24 02/17/24
10:37 11:44
Glucose
POC Glucose 442 H 501 H*
Patient Education
[2024-02-17] MEDS: LANTUS 0.25 UNITS SC (12:23)
[2024-02-17 12:41] LABS: Blood Urea Nitrogen 52 mg/dl (9-20); Carbon Dioxide 23 mmol/L (22-30); Chloride 95 mmol/L (98-107); Estimated Creatinine Clearance 18 ml/min; Glucose 515 mg/dl (70-99); Potassium 4.6 mmol/L (3.5-5.1); Sodium 128 mmol/L (135-145); eGFR 13.26
[2024-02-17 13:27] LABS: Body Fluid pH 7.35
[2024-02-17 13:48] LABS: Body Fluid Mononuclear 92.8 %; Body Fluid Polymorphonuclear 7.2 %; Body Fluid WBC 126 /CUMM
[2024-02-17 13:52] LABS: Body Fluid Second Tech HB
[2024-02-17 13:54] LABS: Glucose - Point of Care 474 mg/dl (70-99)
[2024-02-17 14:20] LABS: Body Fluid LDH 2.9 U/L; Body Fluid Protein 128 g/dl
[2024-02-17] MEDS: NOVOLOG FLEXPEN 10 UNITS SC ×2 (14:32→22:51)
[2024-02-17 15:35] LABS: Glucose - Point of Care 425 mg/dl (70-99)
--- NOTE | 2024-02-17 16:56 | EDRN ---
Unable to start insulin drip order as written, attempted to contact ordering provider. ED pharmacist attempted to contact as well. Will initiate once order is adjusted. As written, order doesn't have a protocol attached to it. Pt is upgraded to ICU
level of care.
--- NOTE | 2024-02-17 17:02 | CON.INTV ---
Documented by User: Lionel Oleary MD, Resident 02/17/24 19:26
Consultation
Consultation Request
Date/Time Consultation Requested: 02/17/2024
Date/Time Consultation Performed: 02/17/2024
Requesting Provider: Hospitalist
Performing Provider: Han Chase
Reason for Consultation: DKA
Medical History
-
History of Present Illness:
History obtained from patient and medical records. Patient is a 33-year-old male with past medical history of diabetes melitis type I and hypertension on insulin pump, ESRD on hemodialysis MWF, hypertension, was discharged from [facility]
02/15/2024, presented to ED 02/16/2024 with shortness of breath, abdominal pain associated with nausea an vomiting. On presentation, patient was found to be in DKA with serum glucose level of 506. His serum sodium level was 128, chloride 94,
bicarbonate 24, calcium was 8.1. His chest x-ray 02/16/2024 was consistent with moderately large right pleural effusion with consolidation in the right lower lobe and increased pulmonary vascular markings. Patient has chronic pulmonary effusion
from 2020 and has had at least 2 thoracentesis at [facility], the last being about 2 months ago with removal of at least 1 L of fluid. Thoracentesis 02/17/2024 with 1800 cc of clear yellow pleural fluid removed. Patient is transferred to critical
care unit for further management.
Past Medical History
Past Medical History: CHF, HTN, Hyperthyroidism, IDDM, Renal Failure (HD MWF) and Other (ESRD, pulmonary hypertension, history of narcotic use disorder, history of alcohol use disorder, anxiety, depression, PE,)
Past Surgical History: Appendectomy
Social History
Tobacco: Smoker (Half pack a day)
Alcohol: Former
Drug: None
Personal: Single
Living: With Family
Employment: Disabled
Family History
Family History: Reviewed & Not Pertinent
Allergies / Home Medications
Allergies
Allergy/AdvReac Type Severity Reaction Status Date / Time
shellfish derived Allergy Hives Verified 02/16/24 19:21
Home Medications
�Medication �Instructions �Recorded �Confirmed �Last Taken �Type
amlodipine 10 mg tablet 10 mg PO DAILY Blood pressure 04/22/21 02/16/24 01/04/24 History
carvedilol 25 mg tablet (Coreg) 25 mg PO BID Blood pressure 04/22/21 02/16/24 01/04/24 History
furosemide 40 mg tablet 40 mg PO BID Fluid 04/22/21 02/16/24 01/04/24 History
retention/Swelling
metoclopramide HCl 10 mg tablet 10 mg PO TIDPRN PRN nausea 04/07/23 02/16/24 01/04/24 History
(Reglan)
oxcarbazepine 150 mg tablet 150 mg PO DAILY Mental 07/24/23 02/16/24 01/04/24 History
Health/Anxiety
trazodone 50 mg tablet 25 mg PO HS sleep 01/05/24 02/16/24 01/04/24 History
Patient Own Insulin Pump 0 units [place] .VIA PUMP diabetes 02/13/24 02/16/24 Unknown History
Review of Systems
-
History Source: Patient
All other systems: Negative unless noted
Constitutional: No Symptoms
EENT: No Symptoms
Respiratory: Trouble Breathing
Cardiac: No Symptoms
Abdomen/GI: Abdominal Pain, Nausea, Vomiting, Diarrhea (n) and Constipated (n)
: No Symptoms
Musculoskeletal: No Symptoms
Skin: Itching
Neuro: No Symptoms
Endocrine: No Symptoms
Hematologic/Lymphatic: No Symptoms
Vitals / Labs / Diagnostic Testing
Vital Signs
Temp Pulse Resp BP Pulse Ox
98.1 F 74 16 122/82 91
02/17/24 12:51 02/17/24 13:25 02/17/24 13:25 02/17/24 14:00 02/17/24 14:00
Lab Data
02/17/24 06:39
02/17/24 11:51
Microbiology
02/17/24 13:12 Pleural Fluid Gram Stain - Preliminary
Diagnostic Testing:
Physical Exam
-
HEENT: Normocephalic and Moist Mucous Membranes
Cardiovascular: S1/S2, Regular Rhythm, Peripheral Edema (2+ b/l LE edema) and JVD (n)
Respiratory: Wheeze (mild b/l) and Non-Labored Respirations
GI: Distended, Tender and Normal Bowel Sounds
Neurology: Awake, AO x 3 and No Motor Deficits
Skin: Warm
General: Comfortable
Assessment
-
Patient is a 33-year-old male with past medical history of diabetes melitis type I (on insulin pump), ESRD on hemodialysis MWF, hypertension, was discharged from [facility] for 02/13/2024 to 02/15/2024 for abdominal pain, hyperglycemia and
hypertension, presented to ED 02/16/2024 with shortness of breath, abdominal pain associated with nausea an vomiting. Patient was found to be in DKA and transferred to critical care unit for further management.
Assessment:
Presentation with recurrent abdominal pain, nausea and vomiting.
Generalized, history of gastroparesis,
Improving on Reglan and Dilaudid
Pleural effusion on CT.
Thoracentesis 02/17/2024.
Severe hyperglycemia
History of diabetes ketoacidosis, DM type I
insulin pump malfunction.
Shortness of breath
Improved with thoracentesis
Volume overload with anasarca
HD only 2 hours 02/16/2024
Next HD 02/17
Hyponatremia-likely hypervolemic
Conditions prior to admission:
End-stage renal disease on hemodialysis Friday (LUE)
On home O2 2L for last 2-3 m, given at [facility], unknown reason, does not know rec schedule of O2 use
Essential hypertension
Ascites with Peritoneal fluid cx 04-22-21 (apparently from PD catheter as there is no documentation of paracentesis at [facility]): G stain/cx negative, PMN 8.7% of 69 wbc
Anxiety/depression
Diabetes mellitus type 1 (on insulin pump),With Microvascular Complications (Retinopathy, Nephropathy, Neuropathy)
Gastroparesis with chronic abdominal pain.
Chronic anemia
Prior history of PD (2019) with catheter removed
Chronically elevated BNP since at least April 2021
Constipation
R pleural effusion on abd CT 06-27-23, moderate, dependent, with associated compressive atelectasis at posterior RLL
Reportedly R thoracentesis at [facility] 2 wks [employer] in Jun 2023, 'not infected', does not know more information
Reported h/o HF while adm to [facility] 2 y [employer] for complications of DM
Reported history of PE 3 years ago, treated 6m OAC
Smoker: 0.5 ppd since age 16
Impression/Plan:
Presentation with recurrent abdominal pain, nausea and vomiting.
-Most likely due to gastroparesis vs DKA, cholecystitis less likely.
-CT abdomen with oral contrast 02/13/2024 with new ascites, edematous gallbladder and chronic pericardial effusion.
-Continue Reglan
-Dilaudid as needed
-Continue PPI
Pleural effusion on CT.
-Thoracentesis 02/17/2024.
-Pleural fluid culture pending
Severe hyperglycemia
-History of DM type I with diabetes ketoacidosis.
-Reports possible insulin pump malfunction.
-Diabetic protocol.
-Diabetic management
End-stage renal disease on HD Friday
-Volume overload with anasarca
-HD only 2 hours 02/16/2024 not enough.
-Next HD 02/17
--Continue HD as scheduled MWF
Shortness of breath.
-Respiratory status stable.
-Improved with thoracentesis 02/17/2024; most likely due to severe pleural effusion and volume overload.
-Smoking cessation encouraged.
Hyponatremia
-Chronic, likely hypervolemic
-Monitor.

Diagnostic Data
Chest X-Ray:
02/16/2024: Moderately large right pleural effusion is stable or slightly increased. Consolidation in the right lower lobe may be compressive atelectasis but pneumonia cannot be excluded.
01/17/2024: Chronic right pleural effusion noted. Small to moderate.
CXR 07-14-23 c/w 05-16-23: chronic elevation R diaphragm, increased prominence of R>>L hilar vessels, chronic pulm vasc congestion, blurred R diaphragm/effusion but no clear cut infiltrate
CXR 05-16-23 (PA/lat) c/w 04-07-23 (portable), no other films available for comparison. Prominent R hilar vessels, mild cephalization of vessels, moderately elevated R hemidiaphragm, lateral with R posterior PF. Initial film with moderate pulm vasc
congestion and suspected R basilar infiltrate vs atelectasis
-
CT abdomen pelvis
02/13/2024
Possible gallbladder edema
Possible pericardial effusion
New ascites
01/18/2024:
Overall mild abdominopelvic ascites. Significantly progressed.
Moderate fecal material in the colon. Progressed
Moderate hepatomegaly. Stable
Large right pleural effusion. Progressed
Bilateral lower lobe and right middle lobe consolidation as described above. Stable
-
CT AP 01/05/24- ). There is small moderate bowel wall thickening, most prominent in the left abdomen where there is hazy ground glass inflammatory change in the adjacent fat consistent with small bowel enteritis.
2). There is a small amount of ascites in the pelvis
3). There is cholelithiasis
4). There is moderate right pleural effusion with associated compressive atelectasis at the right lung base.
CT Scan: CTA 07/14/23- IMPRESSION:
1. No CTA evidence for an acute pulmonary thromboembolism.
2. Moderate right pleural effusion with adjacent right lower lobe compressive atelectasis. Mild left lower lobe atelectasis.
Echo:
TTE 06-30-23 (no baseline available) with flattened septum in diastole ('D'-shaped left ventricle) consistent with RV volume overload, enlarged RV size, severe TR, ePASP 60-65 mmHg and RA 3 mmHg
Signed AMA before UDS, [facility] doppler and chest CTA
Data Reviewed
-
EKG: Report reviewed by me and Discussed with Physician
Radiology: Image personally visualized and interpreted, Report reviewed by me and Discussed with Physician
CT Scan: Image personally visualized and interpreted, Report reviewed by me and Discussed with Physician
Medical Tests (Nuc Med, Echo etc): Report reviewed by me and Discussed with Physician
Labs: Labs reviewed by me and Discussed with Physician
Old Records: Reviewed

Documented by User: Salvatore Short MD 02/17/24 19:50
Consultation
Consultation Request
Requesting Provider: Hospitalist kristin
Performing Provider: Dr Short
Medical History
-
History of Present Illness:
History obtained from patient and medical records. Patient is a 33-year-old male with past medical history of diabetes melitis type I and hypertension on insulin pump, ESRD on hemodialysis MWF, hypertension, was discharged from [facility]
02/15/2024, presented to ED 02/16/2024 with shortness of breath, abdominal pain associated with nausea an vomiting. On presentation, patient was found to be in DKA with serum glucose level of 506. His serum sodium level was 128, chloride 94,
bicarbonate 24, calcium was 8.1. His chest x-ray 02/16/2024 was consistent with moderately large right pleural effusion with consolidation in the right lower lobe and increased pulmonary vascular markings. Patient has chronic pulmonary effusion
from 2020 and has had at least 2 thoracentesis at [facility], the last being about 2 months ago with removal of at least 1 L of fluid, reportedly never had pleural infection. Thoracentesis 02/17/2024 with 1800 cc of clear yellow pleural fluid
removed. Patient is transferred to critical care unit for further management in view of need for insulin gtt.
Past Medical History
Past Medical History: Other (ESRD, pulmonary hypertension, history of narcotic use disorder, history of alcohol use disorder, anxiety, depression. Reportedly PE)
Review of Systems
-
Respiratory: Trouble Breathing (ROBBINS)
Physical Exam
-
HEENT: Thrush (n)
Cardiovascular: Calf Tenderness (n), Other (mild leg edema) and Other (LUE AVF)
GI: Tender (hypogastrium, no rebound)
Skin: Other (multiple ulcers in RUE. Ecchymosis around LUE AVF)
Assessment
-
Assessment:
Patient is a 33-year-old male with past medical history of diabetes melitis type I (on insulin pump), ESRD on hemodialysis MWF, hypertension, was discharged from [facility] for 02/13/2024 to 02/15/2024 for abdominal pain, hyperglycemia and
hypertension, presented to ED 02/16/2024 with shortness of breath, abdominal pain associated with nausea an vomiting. Patient was found to be in DKA, with suspicion of malfunctioning insulin pump, and transferred to critical care unit for
further management.
Impression
Presentation with recurrent abdominal pain, nausea and vomiting.
Mainly hypogastric pain, history of DM gastroparesis
Improving on Reglan and Dilaudid
Pleural effusion on CT.
Chronic, tapped at least twice at [facility], last time about 2 m [employer], reportedly never had a pleural infecion
Thoracentesis 02/17/2024: 1.8 cc
Severe hyperglycemia
History of diabetes ketoacidosis, DM type I
insulin pump malfunction suspected at ER
Shortness of breath
Improved with thoracentesis
Volume overload
Outpatient HD only 2 hours 02/16/2024, reportedly due to pain at LUE AVF
Hyponatremia-likely hypervolemic
Conditions prior to admission:
End-stage renal disease on hemodialysis Friday (LUE AVF)
On home O2 2L for last 2-3 m, given at [facility], unknown reason, does not know rec schedule of O2 use
Essential hypertension
TTE 06-30-23 (no baseline available) with flattened septum in diastole ('D'-shaped left ventricle) consistent with RV volume overload, enlarged RV size, severe TR, ePASP 60-65 mmHg and RA 3 mmHg
Signed AMA before UDS, [facility] doppler and chest CTA
Per renal note in record prior history of PD (2019) with catheter removed: ascites with Peritoneal fluid cx 04-22-21 (apparently from PD catheter as there is no documentation of paracentesis at EMR): G stain/cx negative, PMN 8.7% of 69 wbc.
Anxiety/depression
Diabetes mellitus type 1 (on insulin pump),With Microvascular Complications (Retinopathy, Nephropathy, Neuropathy)
Gastroparesis with chronic abdominal pain.
Chronic anemia
Chronically elevated BNP since at least April 2021
Constipation
R pleural effusion on abd CT 06-27-23, moderate, dependent, with associated compressive atelectasis at posterior RLL
Reportedly R thoracentesis at [facility] 2 wks [employer] in Jun 2023, 'not infected', does not know more information
Reported h/o HF while adm to [facility] 2 y [employer] for complications of DM
Reported history of PE 3 years ago, treated 6m OAC
Smoker: 0.5 ppd since age 16
Suspected medical noncompliance
Impression/Plan:
Presentation with recurrent abdominal pain, nausea and vomiting.
-Most likely due to gastroparesis vs DKA, cholecystitis less likely.
-CT abdomen with oral contrast 02/13/2024 with new ascites, edematous gallbladder and chronic pericardial effusion.
-Continue Reglan
-Dilaudid as needed
-Continue PPI
R pleural effusion on CT.
Chronic, minimal on CTA April 2021
Recurrent R pleural effusion: reportedly drained at least twice at [facility], per patient never had a pleural infection
-Thoracentesis 02/17/2024 (first at ): 1.8 L, clear yellow PF, G stain negative, very low PF LDH, transudate, cx pending, cytology added
Etiology likely due to CKD
Severe hyperglycemia
-History of DM type I with diabetes ketoacidosis.
-Suspected insulin pump malfunction.
-Diabetic protocol.
-Diabetic management
End-stage renal disease on HD Friday
-Volume overload with anasarca
-Outpatient HD for only 2 hours 02/16/2024 (c/o LUE AVF pain)
-Continue HD as scheduled MWF
TTE 06-30-23 (no baseline available) with flattened septum in diastole ('D'-shaped left ventricle) consistent with RV volume overload, enlarged RV size, severe TR, ePASP 60-65 mmHg and RA 3 mmHg
Signed AMA before UDS, [facility] doppler and chest CTA that adm
Chest CTA 07-14-23 and 04-22-21: negative for PE
[facility] doppler 07-14-23: negative
Reportedly no longer producing urine
Update TTE, check HIV
Hyponatremia
-Chronic, likely hypervolemic
-Monitor.
Suspected medical noncompliance issues and relative limited insight have been raised in previous encounters. Patient was advised to improve his medical compliance
D/w Mr Soliz at ER
Disposition: insulin pump to be interrogated, keep at ICU while on IV insulin gtt, transfer to [facility] once off insulin gtt, pulm to follow
Critical care time: 40 min
Diagnostic Data
Chest X-Ray:
02/16/2024: Moderately large right pleural effusion is stable or slightly increased. Consolidation in the right lower lobe may be compressive atelectasis but pneumonia cannot be excluded.
01/17/2024: Chronic right pleural effusion noted. Small to moderate.
CXR 07-14-23 c/w 05-16-23: chronic elevation R diaphragm, increased prominence of R>>L hilar vessels, chronic pulm vasc congestion, blurred R diaphragm/effusion but no clear cut infiltrate
CXR 05-16-23 (PA/lat) c/w 04-07-23 (portable), no other films available for comparison. Prominent R hilar vessels, mild cephalization of vessels, moderately elevated R hemidiaphragm, lateral with R posterior PF. Initial film with moderate pulm vasc
congestion and suspected R basilar infiltrate vs atelectasis
CT abdomen pelvis s/c 04
IMPRESSION:
Markedly limited study without oral or intravenous contrast.
Findings again seen suggesting possible gallbladder edema.
Prior appendectomy.
At least moderate volume right pleural effusion again seen.
Possible tiny pericardial effusion.
New ascites, small volume in the abdomen and moderate volume in the true pelvis.
Slightly high attenuation fluid density of the urine within the urinary bladder, consider proteinaceous material including blood products. Suggest correlation with urinalysis.
Markedly limited evaluation of intestinal tract without oral or intravenous contrast, without intestinal obstruction or free air. Cannot exclude inflammatory process such as enteritis.
01/17/2024:
Overall mild abdominopelvic ascites. Significantly progressed.
Moderate fecal material in the colon. Progressed
Moderate hepatomegaly. Stable
Large right pleural effusion. Progressed
Bilateral lower lobe and right middle lobe consolidation as described above. Stable
CT AP 01/05/24- ). There is small moderate bowel wall thickening, most prominent in the left abdomen where there is hazy ground glass inflammatory change in the adjacent fat consistent with small bowel enteritis.
2). There is a small amount of ascites in the pelvis
3). There is cholelithiasis
4). There is moderate right pleural effusion with associated compressive atelectasis at the right lung base.
CT Scan: CTA 07/14/23- IMPRESSION:
1. No CTA evidence for an acute pulmonary thromboembolism.
2. Moderate right pleural effusion with adjacent right lower lobe compressive atelectasis. Mild left lower lobe atelectasis.
TTE 06-30-23 (no baseline available) with flattened septum in diastole ('D'-shaped left ventricle) consistent with RV volume overload, enlarged RV size, severe TR, ePASP 60-65 mmHg and RA 3 mmHg
Signed AMA before UDS, [facility] doppler and chest CTA
ATTENDING PHYSICIAN ATTESTATION:
(Initial Visit:)
I personally saw and evaluated the patient along with the FM Resident Dr Oleary.
Discussed with Resident and discussed in rounds with MDT.
I agree with Resident�s findings and plan as documented in the resident�s note, which was edited by myself.
[2024-02-17] MEDS: NOVOLIN R 6 UNITS IV (17:14)
[2024-02-17] MEDS: NOVOLIN R INSULIN INFUSION 100 IV (17:20)
[2024-02-17 18:19] LABS: Glucose - Point of Care 211 mg/dl (70-99)
[2024-02-17 19:06] LABS: Blood Urea Nitrogen 54 mg/dl (9-20); Calcium 8.6 mg/dl (8.4-10.2); Carbon Dioxide 19 mmol/L (22-30); Chloride 95 mmol/L (98-107); Estimated Creatinine Clearance 17 ml/min; Glucose 216 mg/dl (70-99); Potassium 3.8 mmol/L (3.5-5.1); Sodium 129 mmol/L (135-145); eGFR 11.94
[2024-02-17 20:33] LABS: Glucose - Point of Care 87 mg/dl (70-99)
[2024-02-17] MEDS: LASIX PO ×2 (21:09→21:10)
--- NOTE | 2024-02-17 21:30 | PTCARENOTE ---
Patient came up from ED around 1999. CHG bath done, patient walked to bed and changed into fresh gown. AAOx3 complaining of 9/10 RLQ abdominal pain, prn dilaudid given. Reporting 7/10 pain from tooth ache, prn tylenol given. Normal sinus, 60s-70s.
BP stable, 100s/60s. Palpable radial and pedal pulses bilaterally. 97% on 3 liters nasal cannula, lung sounds diminished. 1800 diabetic diet, patient did not receive dinner in the ED, was given a chicken salad sandwich. Anuric, last BM yesterday.
Large bruise around LUE AV fistula, patient reports 'it infiltrated during dialysis'. Open wounds and scabs throughout arms and legs. #20 in right wrist. Patient's own insulin pump off and disconnected, on the bedside table. Critical care glycemic
insulin gtt on hold per MANAGER BATTERY, patient called and reported blood sugar felt low, checked and was 51. Given juice, next recheck 2144. Call luevano within reach, able to make needs known.
[2024-02-17 21:37] LABS: Glucose - Point of Care 51 mg/dl (70-99)
--- NOTE | 2024-02-17 21:54 | PTCARENOTE ---
Blood sugar after treatment 81, rechecking in an hour.
[2024-02-17] MEDS: DESYREL 25 MG PO (21:58)
[2024-02-17 22:07] LABS: Glucose - Point of Care 81 mg/dl (70-99)
[2024-02-17 22:54] LABS: Glucose - Point of Care 196 mg/dl (70-99)
[2024-02-17 23:56] LABS: Glucose - Point of Care 158 mg/dl (70-99)
[2024-02-18] VITALS (29 sets, daily range): BP systolic 97–139; BP diastolic 61–91; BMI 23.9; BMI 23.0
--- NOTE | 2024-02-18 | PTCARENOTE ---
Patient reporting 8/10 pain in RLQ, requesting PRN dilaudid. Given, now patient asleep. Call luevano within reach.
[2024-02-18 00:53] LABS: Glucose - Point of Care 173 mg/dl (70-99)
--- NOTE | 2024-02-18 04:41 | PTCARENOTE ---
Patient called reporting he felt shaky and weak around 0400, blood sugar checked, 61. 4 oz juice given, rechecked 0415, 64. Additional 4 oz juice given, rechecked 0430, 80. CHILDREN TEACHER aware, blood sugar to be checked again around 0630. Patient informed to
call if he feels symptomatic. Otherwise patient assessment unchanged from previous.
--- NOTE | 2024-02-18 04:45 | DOWNTIME ---
There was a [place] Client Chip Tuner Downtime on 02/18/2024 from 0100 to 02/18/2024 at 0439. Downtime documentation of patient's care, including medication administrations, has been reconciled in the electronic record per guidelines. Refer to the
patient's paper chart under the miscellaneous tab to see printed paper medication records and downtime forms.
[2024-02-18 04:49] LABS: Glucose - Point of Care 80 mg/dl (70-99)
[2024-02-18 05:39] LABS: Hematocrit 31.1 % (39.0-52.0); Hemoglobin 10.2 g/dL (13.0-18.0); Mean Corp Hgb Conc. 32.8 g/dL (33.0-37.0); Mean Corpuscular Hgb 33.1 pg (27.0-31.0); Mean Platelet Volume 9.7 fL (7.4-10.4); Platelet Count 156 10^3/uL (130-400); Red Blood Cell Count 3.08 10^6/uL (4.70-6.10); Red Cell Dist. Width 16.5 % (11.5-14.5); White Blood Cell Count 4.1 10^3/uL (4.8-10.8)
[2024-02-18] MEDS: DILAUDID 0.5 MG IV ×5 (05:41→21:13)
--- NOTE | 2024-02-18 06:45 | PTCARENOTE ---
Blood sugar rechecked per protocol, 103. No further intervention at this time, BELL MAKER aware.
[2024-02-18 06:46] LABS: Glucose - Point of Care 103 mg/dl (70-99)
[2024-02-18 06:52] LABS: Blood Urea Nitrogen 59 mg/dl (9-20); Calcium 8.1 mg/dl (8.4-10.2); Carbon Dioxide 24 mmol/L (22-30); Chloride 98 mmol/L (98-107); Estimated Creatinine Clearance 16 ml/min; Glucose 99 mg/dl (70-99); Potassium 4.7 mmol/L (3.5-5.1); Sodium 130 mmol/L (135-145); eGFR 11.48
--- NOTE | 2024-02-18 07:13 | W.PN.INTV ---
Documented by User: Lionel Oleary MD, Resident 02/18/24 12:37
Today's Communication / Plan
Recommendations
Hold critical care insulin gtt
Monitor respiratory status s/p thoracentesis
Continue Reglan and Dilaudid as needed
Continue PPI
Assessment
-
Assessment:
Patient is a 33-year-old male with past medical history of diabetes melitis type I (on insulin pump), ESRD on hemodialysis MWF, hypertension, was discharged from [facility] for 02/13/2024 to 02/15/2024 for abdominal pain, hyperglycemia and
hypertension, presented to ED 02/16/2024 with shortness of breath, abdominal pain associated with nausea an vomiting. Patient was found to be in DKA, with suspicion of malfunctioning insulin pump, and transferred to critical care unit for
further management.
Impression
Presentation with recurrent abdominal pain, nausea and vomiting.
Mainly RLQ pain, history of DM gastroparesis
Improving on Reglan and Dilaudid
Pleural effusion on CT.
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
Thoracentesis 02/17/2024: 1.8 cc
Severe hyperglycemia
History of diabetes ketoacidosis, DM type I
insulin pump malfunction suspected at ER
Shortness of breath
Improved with thoracentesis
Volume overload
Outpatient HD only 2 hours 02/16/2024, reportedly due to pain at LUE AVF
Hyponatremia-likely hypervolemic
Conditions prior to admission:
End-stage renal disease on hemodialysis Friday (LUE AVF)
On home O2 2L for last 2-3 m, given at [facility], unknown reason, does not know rec schedule of O2 use
Essential hypertension
TTE 06-30-23 (no baseline available) with flattened septum in diastole ('D'-shaped left ventricle) consistent with RV volume overload, enlarged RV size, severe TR, ePASP 60-65 mmHg and RA 3 mmHg
Signed AMA before UDS, [facility] doppler and chest CTA
Per renal note in record prior history of PD (2019) with catheter removed: ascites with Peritoneal fluid cx 04-22-21 (apparently from PD catheter as there is no documentation of paracentesis at [facility]): G stain/cx negative, PMN 8.7% of 69 wbc.
Anxiety/depression
Diabetes mellitus type 1 (on insulin pump),With Microvascular Complications (Retinopathy, Nephropathy, Neuropathy)
Gastroparesis with chronic abdominal pain.
Chronic anemia
Chronically elevated BNP since at least April 2021
Constipation
R pleural effusion on abd CT 06-27-23, moderate, dependent, with associated compressive atelectasis at posterior RLL
Reportedly R thoracentesis at [facility] 2 wks [employer] in Jun 2023, 'not infected', does not know more information
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
Reported history of PE 3 years ago, treated 6m OAC
Smoker: 0.5 ppd since age 16
Suspected medical noncompliance
Impression/Plan:
Presentation with recurrent abdominal pain, nausea and vomiting.
-Patient requiring multiple Dilaudid due to abdominal pain.
-Most likely due to gastroparesis vs drug-seeking behavior.
-CT abdomen with oral contrast 02/13/2024 with new ascites, edematous gallbladder and chronic pericardial effusion.
-Continue Reglan
-Dilaudid as needed
-Continue PPI
R pleural effusion on CT.
-S/p thoracentesis 02/17/2024 (first at ): 1.8 L, clear yellow PF, G stain negative, very low PF LDH, transudate, cx no growth TD, cytology pending.
-Chronic, minimal on CTA April 2021
-Etiology likely due to CKD
-CXR s/p thoracentesis 04/16/2024 with small amount of residual fluid and atelectasis within right lung bases but no evidence of pneumothorax
-Recurrent R pleural effusion: reportedly drained at least twice at [facility], per patient never had a pleural infection
Severe hyperglycemia
-Multiple episodes of hypoglycemia overnight that mildly corrected with administration of Juice.
-Hold critical care insulin gtt.
-Monitor serum glucose level with Accu-Chek.
-Suspected Insulin Pump Malfunction; insulin pump interrogation.
-History of DM type I with diabetes ketoacidosis.
-Diabetic protocol.
-Diabetic management
End-stage renal disease on HD Friday
-Volume overload with multiple missed/incomplete HD sessions.
-Outpatient HD for only 2 hours 02/16/2024 (c/o LUE AVF pain)
-HD completed today, patient tolerated.
-Continue HD as scheduled MWF
TTE 06-30-23 (no baseline available) with flattened septum in diastole ('D'-shaped left ventricle) consistent with RV volume overload, enlarged RV size, severe TR, ePASP 60-65 mmHg and RA 3 mmHg
Signed AMA before UDS, [facility] doppler and chest CTA that adm
Chest CTA 07-14-23 and 04-22-21: negative for PE
[facility] doppler 07-14-23: negative
Reportedly no longer producing urine
Update TTE, check HIV
Hyponatremia
-Chronic, likely hypervolemic
-Monitor.
Hypertension.
-Hydralazine for SBP >160 and/or DBP> 100.
-Continue amlodipine, carvedilol, furosemide.
History of HF with preserved ejection fraction.
-Echo 06/30/2023 with severe pulmonary hypertension and estimated EF 60-65.
-Continue amlodipine, carvedilol and furosemide.
Suspected medical noncompliance issues and relative limited insight have been raised in previous encounters. Patient was advised to improve his medical compliance
D/w Mr Soliz at ER
Disposition: insulin pump to be interrogated, keep at ICU while on IV insulin gtt, transfer to [facility] once off insulin gtt, pulm to follow
Critical care time: 40 min
Diagnostic Data
Chest X-Ray:
02/16/2024: Moderately large right pleural effusion is stable or slightly increased. Consolidation in the right lower lobe may be compressive atelectasis but pneumonia cannot be excluded.
01/17/2024: Chronic right pleural effusion noted. Small to moderate.
CXR 07-14-23 c/w 05-16-23: chronic elevation R diaphragm, increased prominence of R>>L hilar vessels, chronic pulm vasc congestion, blurred R diaphragm/effusion but no clear cut infiltrate
CXR 05-16-23 (PA/lat) c/w 04-07-23 (portable), no other films available for comparison. Prominent R hilar vessels, mild cephalization of vessels, moderately elevated R hemidiaphragm, lateral with R posterior PF. Initial film with moderate pulm vasc
congestion and suspected R basilar infiltrate vs atelectasis
CT abdomen pelvis s/c
IMPRESSION:
Markedly limited study without oral or intravenous contrast.
Findings again seen suggesting possible gallbladder edema.
Prior appendectomy.
At least moderate volume right pleural effusion again seen.
Possible tiny pericardial effusion.
New ascites, small volume in the abdomen and moderate volume in the true pelvis.
Slightly high attenuation fluid density of the urine within the urinary bladder, consider proteinaceous material including blood products. Suggest correlation with urinalysis.
Markedly limited evaluation of intestinal tract without oral or intravenous contrast, without intestinal obstruction or free air. Cannot exclude inflammatory process such as enteritis.
01/17/2024:
Overall mild abdominopelvic ascites. Significantly progressed.
Moderate fecal material in the colon. Progressed
Moderate hepatomegaly. Stable
Large right pleural effusion. Progressed
Bilateral lower lobe and right middle lobe consolidation as described above. Stable
CT AP 01/05/24- ). There is small moderate bowel wall thickening, most prominent in the left abdomen where there is hazy ground glass inflammatory change in the adjacent fat consistent with small bowel enteritis.
2). There is a small amount of ascites in the pelvis
3). There is cholelithiasis
4). There is moderate right pleural effusion with associated compressive atelectasis at the right lung base.
CT Scan: CTA 07/14/23- IMPRESSION:
1. No CTA evidence for an acute pulmonary thromboembolism.
2. Moderate right pleural effusion with adjacent right lower lobe compressive atelectasis. Mild left lower lobe atelectasis.
TTE 06-30-23 (no baseline available) with flattened septum in diastole ('D'-shaped left ventricle) consistent with RV volume overload, enlarged RV size, severe TR, ePASP 60-65 mmHg and RA 3 mmHg
Signed AMA before UDS, ROSE [facility]ARY doppler and chest CTA
ATTENDING PHYSICIAN ATTESTATION:
(Initial Visit:)
I personally saw and evaluated the patient along with the Resident Dr Oleary.
Discussed with Resident and discussed in rounds with MDT.
I agree with Resident�s findings and plan as documented in the resident�s note, which was edited by myself.
Subjective Dataa
Subjective Data
Date of Service:
Date of Service: February 18, 2024
Chief Complaint: Instrumentation Manager Follow Up
Subjective:
Overnight, patient had multiple episodes of hypoglycemia with serum blood glucose in the low 50s which was treated by multiple administrations of juice. His critical care great glycemic insulin gtt was also held. Patient also complained of severe
right lower quadrant abdominal pain and received multiple doses of Dilaudid. Patient is currently on 2 L NC saturating between 96 to 99%.
Review of Systems
General: Fever (n) and Chills (n)
Cardiopulmonary: Dyspnea on Exertion
GI: Abdominal Pain, Nausea, Vomiting (n) and Diarrhea (n)
Neuro: Headache (n) and Weakness
Objective Data
Data Reviewed
Vital Signs / I&O / Oxygen:
Vital Signs
Temp Pulse Resp BP Pulse Ox
98.0 F 64 8 97/61 96
02/18/24 03:15 02/18/24 06:00 02/18/24 06:00 02/18/24 06:00 02/18/24 06:00
SaO2 96
Nasal Cannula flow liters per 3
minute
Physical Exam
General: Comfortable, Fever (n) and Chills (n)
HEENT: Normocephalic and Moist Mucous Membranes
Cardiovascular: S1-S2, Regular Rhythm, Murmur (n) and Calf Tenderness (n)
Respiratory: Crackles (post base), Non-Labored Respirations and Stridor (n)
GI: Soft, Non Distended and Non Tender
Neurology: Awake, Alert and Lethargic (post IV opiate)
Skin: Warm and Other (Multiple ulcers in RUE with ecchymosis around the LUE AVF)
Labs/Micro/Reports
Lab Data
02/18/24 05:29
02/18/24 06:13
Microbiology
02/17/24 13:12 Pleural Fluid Gram Stain - Preliminary

Documented by User: Salvatore Short MD 02/18/24 14:32
Today's Communication / Plan
Recommendations
Hold critical care insulin gtt, start insulin pump
Monitor respiratory status s/p thoracentesis
TTE, HIV
Continue Reglan and Dilaudid as needed
Continue PPI
Assessment
-
Assessment:
Patient is a 33-year-old male with past medical history of diabetes melitis type I (on insulin pump), ESRD on hemodialysis MWF, hypertension, was discharged from [facility] for 02/13/2024 to 02/15/2024 for abdominal pain, hyperglycemia and
hypertension, presented to ED 02/16/2024 with shortness of breath, abdominal pain associated with nausea an vomiting. Patient was found to be in DKA, with suspicion of malfunctioning insulin pump, and transferred to critical care unit for
further management.
Impression
Presentation with recurrent abdominal pain, nausea and vomiting.
Mainly RLQ pain, history of DM gastroparesis
Improving on Reglan and Dilaudid
Pleural effusion on CT.
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
Thoracentesis 02/17/2024: 1.8 cc
Severe hyperglycemia
History of diabetes ketoacidosis, DM type I
insulin pump malfunction suspected at ER
Shortness of breath
Improved with thoracentesis
Volume overload
Outpatient HD only 2 hours 02/16/2024, reportedly due to pain at LUE AVF
Hyponatremia-likely hypervolemic
Conditions prior to admission:
End-stage renal disease on hemodialysis Friday (E AVF)
On home O2 2L for last 2-3 m, given at [facility], unknown reason, does not know rec schedule of O2 use
Essential hypertension
TTE 06-30-23 (no baseline available) with flattened septum in diastole ('D'-shaped left ventricle) consistent with RV volume overload, enlarged RV size, severe TR, ePASP 60-65 mmHg and RA 3 mmHg
Signed AMA before UDS, [facility] doppler and chest CTA
Per renal note in record prior history of PD (2019) with catheter removed: ascites with Peritoneal fluid cx 04-22-21 (apparently from PD catheter as there is no documentation of paracentesis at [facility]): G stain/cx negative, PMN 8.7% of 69 wbc.
Anxiety/depression
Diabetes mellitus type 1 (on insulin pump),With Microvascular Complications (Retinopathy, Nephropathy, Neuropathy)
Gastroparesis with chronic abdominal pain.
Chronic anemia
Chronically elevated BNP since at least April 2021
Constipation
R pleural effusion on abd CT 06-27-23, moderate, dependent, with associated compressive atelectasis at posterior RLL
Reportedly R thoracentesis at [facility] 2 wks [employer]IC [employer]CH[employer] in Jun 2023, 'not infected', does not know more information
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
Reported history of PE 3 years ago, treated 6m OAC
Smoker: 0.5 ppd since age 16
Medical noncompliance
Impression/Plan:
Presentation with recurrent abdominal pain, nausea and vomiting.
-Patient requiring multiple Dilaudid due to abdominal pain.
-Most likely due to gastroparesis vs drug-seeking behavior.
-CT abdomen with oral contrast 02/13/2024 with new ascites, edematous gallbladder and chronic pericardial effusion.
-Continue Reglan
-Dilaudid as needed
-Continue PPI
R pleural effusion on CT.
-S/p thoracentesis 02/17/2024 (first at ): 1.8 L, clear yellow PF, G stain negative, very low PF LDH, transudate, cx no growth TD, cytology pending.
-Chronic, minimal on CTA April 2021
-Etiology likely due to CKD
-CXR s/p thoracentesis 04/16/2024 with small amount of residual fluid and atelectasis within right lung bases but no evidence of pneumothorax
-Recurrent R pleural effusion: reportedly drained at least twice at [facility], per patient never had a pleural infection
Monitor pleural effusion, etiology likely due to CKD, no pleural manometry information at , unclear if done at [facility]
Suspected lack of insight on his medical condition
Advised to follow with [facility] or other pulm practice of his choice upon d/c
Severe hyperglycemia
-Multiple episodes of hypoglycemia overnight that mildly corrected with administration of Juice.
-Hold critical care insulin gtt.
-Monitor serum glucose level with Accu-Chek.
-Suspected Insulin Pump Malfunction; insulin pump interrogation.
-History of DM type I with diabetes ketoacidosis.
-Diabetic protocol.
-Diabetic management
End-stage renal disease on HD Friday
-Volume overload with multiple missed/incomplete HD sessions.
-Outpatient HD for only 2 hours 02/16/2024 (c/o LUE AVF pain)
-HD completed today, patient tolerated.
-Continue HD as scheduled MWF
TTE 06-30-23 (no baseline available) with flattened septum in diastole ('D'-shaped left ventricle) consistent with RV volume overload, enlarged RV size, severe TR, ePASP 60-65 mmHg and RA 3 mmHg
Signed AMA before UDS, [facility] doppler and chest CTA that adm
Chest CTA 07-14-23 and 04-22-21: negative for PE
[facility] doppler 07-14-23: negative
Reportedly no longer producing urine
Update TTE, check HIV: ordered
Pulm htn probably due to CKD but no information available in regards to details on use of illicit drugs
Suspected lack of insight on his medical condition
Advised to follow with [facility] or other pulm practice of his choice upon d/c
Hyponatremia
-Chronic, likely hypervolemic
-Monitor.
Hypertension.
-Hydralazine for SBP >160 and/or DBP> 100.
-Continue amlodipine, carvedilol, furosemide.
History of HF with preserved ejection fraction.
-Echo 06/30/2023 with severe pulmonary hypertension and estimated EF 60-65.
-Continue amlodipine, carvedilol and furosemide.
Suspected medical noncompliance issues and relative limited insight have been raised in previous encounters. Patient was advised to improve his medical compliance
Does not appear motivated to follow on R PF or suspected PH
D/w Mr Soliz
Stabe for transfer to [facility], pul to follow
Diagnostic Data
Chest X-Ray:
02/16/2024: Moderately large right pleural effusion is stable or slightly increased. Consolidation in the right lower lobe may be compressive atelectasis but pneumonia cannot be excluded.
01/17/2024: Chronic right pleural effusion noted. Small to moderate.
CXR 07-14-23 c/w 05-16-23: chronic elevation R diaphragm, increased prominence of R>>L hilar vessels, chronic pulm vasc congestion, blurred R diaphragm/effusion but no clear cut infiltrate
CXR 05-16-23 (PA/lat) c/w 04-07-23 (portable), no other films available for comparison. Prominent R hilar vessels, mild cephalization of vessels, moderately elevated R hemidiaphragm, lateral with R posterior PF. Initial film with moderate pulm vasc
congestion and suspected R basilar infiltrate vs atelectasis
CT abdomen pelvis s/c
IMPRESSION:
Markedly limited study without oral or intravenous contrast.
Findings again seen suggesting possible gallbladder edema.
Prior appendectomy.
At least moderate volume right pleural effusion again seen.
Possible tiny pericardial effusion.
New ascites, small volume in the abdomen and moderate volume in the true pelvis.
Slightly high attenuation fluid density of the urine within the urinary bladder, consider proteinaceous material including blood products. Suggest correlation with urinalysis.
Markedly limited evaluation of intestinal tract without oral or intravenous contrast, without intestinal obstruction or free air. Cannot exclude inflammatory process such as enteritis.
01/17/2024:
Overall mild abdominopelvic ascites. Significantly progressed.
Moderate fecal material in the colon. Progressed
Moderate hepatomegaly. Stable
Large right pleural effusion. Progressed
Bilateral lower lobe and right middle lobe consolidation as described above. Stable
CT AP 01/05/24- 1). There is small moderate bowel wall thickening, most prominent in the left abdomen where there is hazy ground glass inflammatory change in the adjacent fat consistent with small bowel enteritis.
2). There is a small amount of ascites in the pelvis
3). There is cholelithiasis
4). There is moderate right pleural effusion with associated compressive atelectasis at the right lung base.
CT Scan: CTA 07/14/23- IMPRESSION:
1. No CTA evidence for an acute pulmonary thromboembolism.
2. Moderate right pleural effusion with adjacent right lower lobe compressive atelectasis. Mild left lower lobe atelectasis.
TTE 06-30-23 (no baseline available) with flattened septum in diastole ('D'-shaped left ventricle) consistent with RV volume overload, enlarged RV size, severe TR, ePASP 60-65 mmHg and RA 3 mmHg
Signed AMA before UDS, RO[facility] doppler and chest CTA
ATTENDING PHYSICIAN ATTESTATION:
(F/U Visit:)
I personally saw and evaluated the patient along with the FM Resident Dr Oleary.
Discussed with Resident and discussed in rounds with MDT.
I agree with Resident�s findings and plan as documented in the resident�s note, which was edited by myself.
[2024-02-18] MEDS: HEPARIN 500 UNITS IV ×2 (07:55→08:55)
--- NOTE | 2024-02-18 08:00 | PTCARENOTE ---
Assumed care of pt at 0715 following shift report. Pt resting quietly in bed with eyes closed, HD RN in room preparing to begin HD. When woken for assessment, pt immediately asked 'when is it time for my pain med?' Pt informed that Dilaudid not w/in
time frame for administration for another half hour and offered Tylenol for pt c/o abdominal pain. Pt declined Tylenol stating 'that never works for me'. No distress noted. Physical assessment completed as documented. Pt's own insulin pump noted to
be sitting on bedside table-power off. Call chloé w/in reach.
[2024-02-18] MEDS: MANNITOL 12.5 GRAMS IV (08:10)
[2024-02-18 08:55] LABS: Glucose - Point of Care 77 mg/dl (70-99)
--- NOTE | 2024-02-18 10:10 | CM ---
CM reviewed with patient during HD, in ICU the assessment questions. Patient states that he resides with his mother in a split level home with no steps to enter. HD flow-sheets and clinicals will need to be faxed to [facility] for THI
([phone]). The patient receives HD -- at [facility]. The patient reports no DME/VN/SNF in the past. Patient stated that his PCP is Dr. Arroyo and he uses the [facility] in [place]. CM continues to be available to patient/family and
is monitoring medical plan for needs at discharge.
Plan; home with mother, THI HD at [facility]
--- NOTE | 2024-02-18 10:53 | PN.DE.MGMTRT ---
Insulin Management
- -
02/18/2024: Diabetes Management Consult Follow up
33 year old male who presented to the ER for AV Fistula infiltration. Pt is well known to me from previous admissions.
PMH of Acute on Chronic HFpEF, HTN (on amlodipine and carvedilol), ESRD on HD (MWF), T1DM on insulin pump, PE, constipation, depression, anxiety (on oxcarbazepine and trazodone), substance abuse. He is currently using a Medtronic 770 pump with
NovoLog insulin and uses the Gamemasteran sensor.A1C 02/13 9.7.
Patient is awake alert and oriented, able to discuss insulin pump and events leading up to admission and care moving forward. Insulin infusion was turned off at 20:30. Patient had received 25 units of lantus ~ 12 noon, glycemic protocol was
started shortly after. Patient had two episodes of hypoglycemia.
Currently patient is receiving hemodialysis. I spoke with him regarding restarting pump. He wanted to use current infusion set. Explained that since infusion set has had no insulin infused it could be occluded and would need replacement. He is
very agitated, with short responses: he will do it when he is done dialysis.
Dialysis complete, new infusion set inserted by patient, insulin pump resumed. Patient aware to fill in pump worksheet at bedside. Nurse aware pump is infusing.
Pump settings:
Basal
12am .35
4am .425
8am .35
24 hour basal total 8.7 units.
Carb ratio is 1:10
correction 1:50
Target 120 - 140
Diabetes History
- -
Type of Diabetes: 1
Pre-Admission Diabetes Regimen
02/17/24 02/17/24 02/17/24
11:51 18:34 20:00
Creatinine 5.5 H* 6.0 H* Cancelled
02/17/24 02/18/24 02/18/24
22:00 04:00 04:54
Creatinine Cancelled Cancelled Cancelled
02/18/24
06:13
Creatinine 6.2 H*
Insulin Pump Settings
IP Diabetes Regimen
02/17/24 02/17/24 02/17/24
11:44 11:51 13:52
Glucose 515 H*
POC Glucose 501 H* 474 H*
02/17/24 02/17/24 02/17/24
15:34 18:17 18:34
Glucose 216 H
POC Glucose 425 H 211 H
02/17/24 02/17/24 02/17/24
20:00 20:19 21:26
Glucose Cancelled
POC Glucose 87 51 L*
02/17/24 02/17/24 02/17/24
21:50 22:00 22:43
Glucose Cancelled
POC Glucose 81 196 H
02/17/24 02/18/24 02/18/24
23:45 00:42 04:00
Glucose Cancelled
POC Glucose 158 H 173 H
02/18/24 02/18/24 02/18/24
04:38 04:54 06:13
Glucose Cancelled 99
POC Glucose 80
02/18/24 02/18/24
06:35 08:45
Glucose
POC Glucose 103 H 77
Meal type: Dinner
Amount consumed: 100%
Patient Education
[2024-02-18 11:03] LABS: Glucose - Point of Care 81 mg/dl (70-99)
[2024-02-18 11:18] LABS: Glucose - Point of Care 107 mg/dl (70-99)
[2024-02-18 11:18] LABS: Glucose - Point of Care 64 mg/dl (70-99)
[2024-02-18 11:18] LABS: Glucose - Point of Care 61 mg/dl (70-99)
[2024-02-18 11:39] LABS: Glucose - Point of Care 88 mg/dl (70-99)
[2024-02-18] MEDS: PROTONIX 40 MG PO (11:56)
[2024-02-18] MEDS: NORVASC 10 MG PO (11:56)
[2024-02-18] MEDS: COREG 25 MG PO ×2 (11:57→19:51)
[2024-02-18] MEDS: TRILEPTAL 150 MG PO (11:57)
[2024-02-18] MEDS: NSS (PRESERVATIVE FREE) IV (11:57)
[2024-02-18] MEDS: LASIX PO (11:58)
[2024-02-18] MEDS: RETACRIT 2000 UNITS IV (12:18)
[2024-02-18] MEDS: PT'S OWN INSULIN PUMP - NovoLOG 0.5 UNIT SC (12:30)
--- NOTE | 2024-02-18 13:36 | W.PN.HOSP.TC ---
Today's Communication/Plan
-
Hemodialysis per
Monitor for pleural fluid reaccumulation.
Restart insulin pump and monitor blood glucose
Assessment / Plan
Assessment / Plan
Impression:
Presentation with shortness of breath.
Volume overload.
Symptomatic right pleural effusion.
Diabetes with hyperglycemia
Conditions prior to admission:
End-stage renal disease on hemodialysis Friday.
Left upper extremity AV fistula.
Chronic abdominal pain secondary to gastroparesis
Diabetes type 1 with poor compliance on insulin pump
Essential hypertension.
Severe pulmonary hypertension.
Prior history of PD with catheter removed
History of alcohol use disorder.
Anxiety/depression
Plan:
Presentation with shortness of breath.
Clinically volume overloaded
Chest x-ray with at least moderate right pleural effusion
Chronic diastolic CHF with severe pulmonary hypertension as per echo 06/25.
Stable respiratory status.
Right pleural effusion
Status post thoracentesis 02/16 1800 transudate
Volume management with HD
End-stage renal disease on HD Friday
Left upper extremity AV fistula.
Patient reported clotting as outpatient and limited dialysis day prior to presentation.
Discussed with nephrology
Plan is for next HD session on 02/17.
Chronic chronic abdominal pain
Most recent imaging with CT scan of the abdomen pelvis without contrast as well as abdominal ultrasound consistent with edematous gallbladder likely function of anasarca and ascites.
Clinically less likely acute cholecystitis. Abdominal examination with no right upper quadrant tenderness. Normal liver function test and WBC.
Patient with known gastroparesis
Continue carbohydrate low diet
Continue Reglan
Continue PPI
Type 1 diabetes
Most recent hemoglobin A1c emanating from 07-14
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
Concern for malfunction given persistent hyperglycemia.
Initiated on glycemic protocol with later hypoglycemia
Seen by DM nurse petitioner
Restarted on insulin pump on 02/17
Essential hypertension
Continue amlodipine
Anticipated Discharge: 24 - 48 hours
Subjective/Interval History
-
Date of Service: February 18, 2024
Objective Data
-
Labs:
Laboratory Results
02/18/24 02/18/24 02/18/24
04:00 04:54 05:29
WBC Cancelled 4.1 L
Hgb Cancelled 10.2 L
Hct Cancelled 31.1 L
Plt Count Cancelled 156
Sodium Cancelled Cancelled
Potassium Cancelled Cancelled
Chloride Cancelled Cancelled
Carbon Dioxide Cancelled Cancelled
BUN Cancelled Cancelled
Creatinine Cancelled Cancelled
Glucose Cancelled Cancelled
Calcium Cancelled Cancelled
02/18/24
06:13
WBC
Hgb
Hct
Plt Count
Sodium 130 L
Potassium 4.7
Chloride 98
Carbon Dioxide 24
BUN 59 H
Creatinine 6.2 H*
Glucose 99
Calcium 8.1 L
Vital Signs:
Vital Signs
Temp Pulse Resp BP Pulse Ox
98.7 F 74 11 137/84 90
02/18/24 07:44 02/18/24 11:57 02/18/24 10:15 02/18/24 11:57 02/18/24 09:30
Physical Exam
-
General: Well Developed and No Apparent Distress
HEENT: Normocephalic, Atraumatic and Moist Mucous Membranes
Respiratory: Clear to Auscultation
Cardiac: Regular Rhythm and S1/S2; Negative Murmur, Rub or Gallop
GI: Soft, Nontender, Nondistended and Normal Bowel Sounds; Negative Organomegaly
Rectal: Deferred by Provider
Musculoskeletal: No Clubbing, No Cyanosis and No Edema
Skin: Negative Rash
Neuro: Nonfocal/Grossly Intact
--- NOTE | 2024-02-18 15:15 | PTCARENOTE ---
Report given to 'Daren ESPINOSA'- pt to transfer via stretcher to Rm [id number] following transport to Cardiac services for ordered Echo. Pt c/o RLQ abdominal pain 06/12- medicated at pt request w/ Dilaudid 0.5mg IV. Pt's own insulin pump infusing- pt provided
w/ worksheet and instructions in use. No changes noted prior to transport/transfer.
--- NOTE | 2024-02-18 15:16 | W.PN.NEPH.HD ---
Assessment
-
- no complaints on HD today
- underwent Caridad brewer on 02/16
Progress Note - Hemodialysis
-
Date of Service: February 18, 2024
Duration: 30 minutes and 3 hours
Potassium Bath: 3
Calcium Bath: 2.5
Opti-Dialyzer: 160
Blood Flow: 400
Dialysate Flow: 600
[2024-02-18] MEDS: LASIX 40 MG PO (16:32)
[2024-02-18] MEDS: TYLENOL 650 MG PO (16:32)
[2024-02-18 16:34] LABS: Glucose - Point of Care 151 mg/dl (70-99)
[2024-02-18] MEDS: PT'S OWN INSULIN PUMP - NovoLOG SC (16:34)
[2024-02-18 20:18] LABS: Glucose - Point of Care 169 mg/dl (70-99)
[2024-02-18] MEDS: DESYREL 25 MG PO (21:13)
[2024-02-18] MEDS: PT'S OWN INSULIN PUMP - NovoLOG 1 UNIT SC (21:17)
[2024-02-19] MEDS: DILAUDID 0.5 MG IV ×5 (00:13→14:25)
[2024-02-19] MEDS: TYLENOL 650 MG PO (02:13)
[2024-02-19 04:22] LABS: Glucose - Point of Care 75 mg/dl (70-99)
[2024-02-19 05:40] VITALS: BMI 23.1
[2024-02-19 06:02] LABS: Hematocrit 33.6 % (39.0-52.0); Hemoglobin 11.1 g/dL (13.0-18.0); Mean Corpuscular Hgb 32.5 pg (27.0-31.0); Mean Corpuscular Volume 98.2 fL (80.0-94.0); Mean Platelet Volume 10.3 fL (7.4-10.4); Platelet Count 195 10^3/uL (130-400); Red Blood Cell Count 3.42 10^6/uL (4.70-6.10); Red Cell Dist. Width 16.7 % (11.5-14.5)
[2024-02-19 06:27] LABS: Blood Urea Nitrogen 37 mg/dl (9-20); Calcium 8.4 mg/dl (8.4-10.2); Carbon Dioxide 28 mmol/L (22-30); Chloride 94 mmol/L (98-107); Estimated Creatinine Clearance 22 ml/min; Glucose 111 mg/dl (70-99); Potassium 4.3 mmol/L (3.5-5.1); Sodium 130 mmol/L (135-145); eGFR 16.87
[2024-02-19 07:21] LABS: Glucose - Point of Care 109 mg/dl (70-99)
[2024-02-19 07:38] VITALS: BP 131/80
[2024-02-19] MEDS: LASIX 40 MG PO (07:50)
[2024-02-19] MEDS: NORVASC 10 MG PO (07:50)
[2024-02-19] MEDS: TRILEPTAL 150 MG PO (07:50)
[2024-02-19] MEDS: PROTONIX 40 MG PO (07:50)
[2024-02-19] MEDS: NSS (PRESERVATIVE FREE) IV (07:51)
[2024-02-19] MEDS: PT'S OWN INSULIN PUMP - NovoLOG 3 UNIT SC (07:51)
[2024-02-19] MEDS: COREG 25 MG PO (07:51)
--- NOTE | 2024-02-19 08:41 | PN.DE.MGMTRT ---
Insulin Management
- -
02/19/2024: Diabetes Management Consult Follow up
33 year old male who presented to the ER for AV Fistula infiltration. Pt is well known to me from previous admissions.
PMH of Acute on Chronic HFpEF, HTN (on amlodipine and carvedilol), ESRD on HD (MWF), T1DM on insulin pump, PE, constipation, depression, anxiety (on oxcarbazepine and trazodone), substance abuse. He is currently using a Medtronic 770 pump with
NovoLog insulin and uses the Domos Labsan sensor.A1C 02/13 9.7.
Patient is awake alert and oriented, able to discuss insulin pump and care moving forward.
Yesterday after Dialysis was completed, new infusion set inserted by patient, insulin pump resumed. Patient aware to fill in pump worksheet at bedside. HS glucose 169, patient did take a correction bolus, fasting this AM 109. Patient is able to
continue use of insulin pump, no changes at this time.
Pump settings:
Basal
12am .35
4am .425
8am .35
24 hour basal total 8.7 units.
Carb ratio is 1:10
correction 1:50
Target 120 - 140
Diabetes History
- -
Type of Diabetes: 1
Pre-Admission Diabetes Regimen
02/19/24
05:38
Creatinine 4.5 H*
Insulin Pump Settings
IP Diabetes Regimen
02/18/24 02/18/24 02/18/24
03:08 04:01 04:18
Glucose
POC Glucose 107 H 61 L 64 L
02/18/24 02/18/24 02/18/24
08:45 10:52 11:28
Glucose
POC Glucose 77 81 88
02/18/24 02/18/24 02/19/24
16:33 20:17 04:20
Glucose
POC Glucose 151 H 169 H 75
02/19/24 02/19/24
05:38 07:19
Glucose 111 H
POC Glucose 109 H
Meal type: Dinner
Meal type: Lunch
Amount consumed: 100%
Amount consumed: 100%
Patient Education
--- NOTE | 2024-02-19 10:55 | W.PN.NEPH.PH ---
Today's Communication / Plan
-
- HD tomorrow
Assessment/Plan
-
Impression:
ESRD MWF ([facility])
? AVF malfunction on HD
Hyperglycemia with diabetes
Pulmonary hypertension
Polysubstance abuse
Chronic abdominal pain
Anxiety
Anemia
Hypervolemia
Right pleural effusion
Plan:
-will attempt HD tomorrow, orders provided
-Will attempt to maximize ultrafiltration with dialysis given hypervolemia
-If AV fistula fails we will consult vascular surgery or IR for fistulogram, original fistula was placed by Dr. Eckert at [facility]
-AV fistula appears to have infiltrated but maintains good thrill and bruit
-PETE on dialysis for anemia
-Maintain antihypertensives for blood pressure control
-Glucose control per primary team
-s/p R throa for pleural effusion with 1.8L transudate
-Placed fluid restriction and appropriate dietary restrictions in setting of ESRD
-
-
Date of Service: February 19, 2024
CC / HPI / ROS
-
Chief Complaint:
ESRD on HD
History of Present Illness:
SOB
volume overload
Review of Systems:
resting comfortably today
Labs
-
Labs:
WBC 4.0 10^3/uL (4.8-10.8) L 02/19/24 05:38
RBC 3.42 10^6/uL (4.70-6.10) L 02/19/24 05:38
Hgb 11.1 g/dL (13.0-18.0) L 02/19/24 05:38
Hct 33.6 % (39.0-52.0) L 02/19/24 05:38
Plt Count 195 10^3/uL (130-400) D 02/19/24 05:38
Sodium 130 mmol/L (135-145) L 02/19/24 05:38
Potassium 4.3 mmol/L (3.5-5.1) 02/19/24 05:38
Chloride 94 mmol/L (98-107) L 02/19/24 05:38
Carbon Dioxide 28 mmol/L (22-30) 02/19/24 05:38
BUN 37 mg/dl (9-20) H 02/19/24 05:38
Creatinine 4.5 mg/dL (0.7-1.3) H* 02/19/24 05:38
eGFR 16.87 02/19/24 05:38
Glucose 111 mg/dl (70-99) H 02/19/24 05:38
Calcium 8.4 mg/dl (8.4-10.2) 02/19/24 05:38
Albumin 3.6 g/dl (3.5-5.0) 02/16/24 22:37
Physical Exam
-
Vital Signs:
Vital Signs
Temp Pulse Resp BP Pulse Ox
97.8 F 76 14 131/80 97
02/19/24 07:38 02/19/24 07:50 02/19/24 07:38 02/19/24 07:50 02/19/24 09:35
Cardiovascular:: Regular rate and rhythm
Respiratory:: Bilateral: Coarse
Lung Excursion:: Normal
Abdomen:: Nontender and Soft
Bowel Sounds:: Normal
Extremity Edema:: +2: Bilateral:
Randhawa Catheter: No
--- NOTE | 2024-02-19 11:26 | W.PN.PUL3 ---
Today's Communication / Plan
-
Maintain euglycemia with insulin pump
HD as per nephro
Pain control
Maintain SpO2 >90-94%
PT/OT
Patient being prepared for discharge home. Pulmonary service will now sign off. Please reconsult if there are any additional questions/concerns, or if patient's respiratory status deteriorates.
Assessment
-
Assessment:
Patient is a 33-year-old male with past medical history of diabetes melitis type I (on insulin pump), ESRD on hemodialysis MWF, hypertension, was discharged from [facility] for 02/13/2024 to 02/15/2024 for abdominal pain, hyperglycemia and
hypertension, presented to ED 02/16/2024 with shortness of breath, abdominal pain associated with nausea an vomiting. Patient was found to be in DKA, with suspicion of malfunctioning insulin pump, and transferred to critical care unit for
further management.
Impression
Presentation with recurrent abdominal pain, nausea and vomiting.
Mainly RLQ pain, history of DM gastroparesis
Chronic Right-sided pleural effusion s/p thoracentesis 02/17/2024: 1.8 cc
Severe hyperglycemia without DKA
History of diabetes ketoacidosis, DM type I
insulin pump malfunction suspected at ER
Shortness of breath improved with thoracentesis
Volume overload
Outpatient HD only 2 hours 02/16/2024, reportedly due to pain at E AVF
Hyponatremia (baseline Na 129-134) -likely hypervolemic
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
Conditions prior to admission:
End-stage renal disease on hemodialysis Friday ([facility])
On home O2 2L for last 2-3 m, given at [facility], unknown reason, does not know rec schedule of O2 use
Essential hypertension
TTE 06-30-23 (no baseline available) with flattened septum in diastole ('D'-shaped left ventricle) consistent with RV volume overload, enlarged RV size, severe TR, ePASP 60-65 mmHg and RA 3 mmHg
Signed AMA before UDS, [facility] doppler and chest CTA
Per renal note in record prior history of PD (2019) with catheter removed: ascites with Peritoneal fluid cx 04-22-21 (apparently from PD catheter as there is no documentation of paracentesis at [facility]): G stain/cx negative, PMN 8.7% of 69 wbc.
Anxiety/depression
Diabetes mellitus type 1 (on insulin pump),With Microvascular Complications (Retinopathy, Nephropathy, Neuropathy)
Gastroparesis with chronic abdominal pain.
Chronic anemia
Chronically elevated BNP since at least April 2021
Constipation
R pleural effusion on abd CT 06-27-23, moderate, dependent, with associated compressive atelectasis at posterior RLL
Reportedly R thoracentesis at [facility] 2 wks [facility] in Jun 2023, 'not infected', does not know more information
Reported h/o HF while adm to [facility] 2 y [facility] for complications of DM
Reported history of PE 3 years ago, treated 6m OAC
Smoker: 0.5 ppd since age 16
Suspected medical noncompliance
Impression/Plan:
Presentation with recurrent abdominal pain, nausea and vomiting.
-Patient requiring multiple Dilaudid due to abdominal pain.
-Most likely due to gastroparesis vs drug-seeking behavior.
-CT abdomen with oral contrast 02/13/2024 with new ascites, edematous gallbladder and chronic pericardial effusion.
-Continue Reglan prn
-Dilaudid as needed
-Continue PPI
R pleural effusion on CT.
-S/p thoracentesis 02/17/2024 (first at ): 1.8 L, clear yellow PF, G stain negative, very low PF LDH, transudate, cx shows NGTD, cytology pending.
-Chronic, minimal on CTA April 2021
-Etiology likely due to CKD
-CXR s/p thoracentesis 02/17/2024 with small amount of residual fluid and atelectasis within right lung bases but no evidence of pneumothorax
-Recurrent R pleural effusion: reportedly drained at least twice at [facility], per patient never had a pleural infection
Severe hyperglycemia - DM uncontrolled with HbA1C: 9.7 on 02/14/2024
- s/p insulin gtt
- goal BG >100 and <180
-Suspected Insulin Pump Malfunction; insulin pump interrogation.
-History of DM type I with diabetes ketoacidosis.
End-stage renal disease on HD Friday
-Volume overload with multiple missed/incomplete HD sessions.
-Outpatient HD for only 2 hours 02/16/2024 (c/o LUE AVF pain)
-HD as per nephrology
- Maintain MAP>65
-Continue HD as scheduled MWF
TTE 06-30-23 (no baseline available) with flattened septum in diastole ('D'-shaped left ventricle) consistent with RV volume overload, enlarged RV size, severe TR, ePASP 60-65 mmHg and RA 3 mmHg
Signed AMA before UDS, ROSE M[facility] doppler and chest CTA that adm
Chest CTA 07-14-23 and 04-22-21: negative for PE
ROSE MARY doppler 07-14-23: negative
Reportedly no longer producing urine
Update TTE, check HIV
Hyponatremia
-Chronic, likely hypervolemic
-Trend sNa
Hypertension.
-Hydralazine for SBP >160 and/or DBP> 100.
-Continue amlodipine, carvedilol, furosemide
- Goal BP<130/80
History of HF with preserved ejection fraction.
-Echo 06/30/2023 with severe pulmonary hypertension and estimated EF 60-65.
-Continue amlodipine, carvedilol and furosemide.
Suspected medical noncompliance issues and relative limited insight have been raised in previous encounters. Patient was advised to improve his medical compliance
Patient being prepared for discharge home. Pulmonary service will now sign off. Thank you for allowing us to be involved in the care of this patient. Please reconsult if there are any additional questions/concerns, or if patient's respiratory
status deteriorates.
Total time spent today was 35 minutes for this encounter. Time includes reviewing laboratory test/imaging results, reviewing pertinent medical records, obtaining and reviewing medical history, performing an appropriate exam, ordering medications,
tests and procedures. Time also includes documentation of this encounter, coordinating patient care and communicating with other healthcare professionals. Total time does not include separately billed tests performed on this date of service.
Data:
TTE 02-18-2024:
Normal left ventricular systolic function. LV ejection fraction is 60% by
volumetric assessment.
Mild concentric left ventricular hypertrophy.
The right ventricle is dilated. Septum flattened in systole consistent with RV
pressure overload.
Subjective Data
-
Date of Service:
Date of Service: February 19, 2024
Chief Complaint: Pulmonary Follow Up
Subjective:
Patient seen and evaluated today at bedside. No acute events reported overnight. Being prepared for discharge.
Review of Systems
General: Other (Negative unless mentioned above)
Objective Data
Data Reviewed
Vital Signs / I&O / Oxygen:
Vital Signs
Temp Pulse Resp BP Pulse Ox
97.8 F 76 14 131/80 97
02/19/24 07:38 02/19/24 07:50 02/19/24 07:38 02/19/24 07:50 02/19/24 09:35
Intake and Output
02/18/24 02/19/24 02/20/24
06:59 06:59 06:59
Intake Total 1140 / 1140
Balance 1140 / 1140
SaO2 97
Nasal Cannula flow liters per 1
minute
Physical Exam
General: Respiratory Distress (Negative) and Comfortable
HEENT: Normocephalic and Anicteric
Cardiovascular: S1-S2 and Peripheral Edema (trace LE edema)
Respiratory: Wheeze (Negative), Crackles (Right base) and Non-Labored Respirations
GI: Soft, Non Distended, Non Tender and Normal Bowel Sounds
Neurology: Awake and Alert
Skin: Warm and Dry
Labs/Micro/Reports
Lab Data
02/19/24 05:38
02/19/24 05:38
Microbiology
02/17/24 13:12 Pleural Fluid Body Fluid Culture - Preliminary
No Growth After 18-24 Hours
02/17/24 13:12 Pleural Fluid Gram Stain - Preliminary
[2024-02-19 11:28] LABS: Glucose - Point of Care 177 mg/dl (70-99)
--- NOTE | 2024-02-19 13:48 | W.DS.TRANS ---
DC Summary - Wrinkle Chaser
-
Discharge Instructions:
Sleep Apnea Risk Low
Discharge Diagnosis/Procedures Impression:
Presentation with shortness of breath.
Volume overload.
Symptomatic right pleural effusion.
Diabetes with hyperglycemia
Conditions prior to admission:
End-stage renal disease on hemodialysis Friday
Friday.
Left upper extremity AV fistula.
Chronic abdominal pain secondary to
gastroparesis
Diabetes type 1 with poor compliance on insulin
pump
Essential hypertension.
Severe pulmonary hypertension.
Prior history of PD with catheter removed
History of alcohol use disorder.
Anxiety/depression
Diet Diabetic, Carb Controlled
Instructions:
Stand-Alone Forms:
Changes to Home Medications: No
Discharge Medications:
DC Medications w/original date entered in [facility]
amlodipine 10 mg tablet 10 mg PO DAILY Blood pressure 04/22/21
carvedilol 25 mg tablet (Coreg) 25 mg PO BID Blood pressure 04/22/21
furosemide 40 mg tablet 40 mg PO BID Fluid retention/Swelling 04/22/21
metoclopramide HCl 10 mg tablet (Reglan) 10 mg PO TIDPRN PRN nausea 04/07/23
oxcarbazepine 150 mg tablet 150 mg PO DAILY Mental Health/Anxiety 07/24/23
trazodone 50 mg tablet 25 mg PO HS sleep 01/05/24
Patient Own Insulin Pump 0 units SC .VIA PUMP diabetes 02/13/24
Home Medication Changes
Pending Results: No
[2024-02-19 14:38] VITALS: BP 105/77
--- NOTE | 2024-02-20 07:53 | CM ---
late entry:02/19/24 patient stable for discharge home.kevin called [facility] [phone] to let them know patient will be dc today and will be returning to [facility] on friday for his HD. treatment.[facility] faxed flow sheets to [phone].
[2024-02-20 19:22] LABS: HIV Combo Negative (Negative)
== END 2024-02-19 14:53 | disposition home or self-care (01) | DRG 291 ==
LOC: 2 NORTH 23:57
PROVIDERS: Radiology Diagnostic Radiology; Registered Nurse; Student in an Organized Health Care Education/Training Program; ADMITTING PHYSICIAN Internal Medicine; ATTENDING PHYSICIAN Internal Medicine; CONSULT PHYSICIAN Internal Medicine Pulmonary Disease; CONSULT PHYSICIAN Specialist; EMERGENCY PHYSICIAN Emergency Medicine; FAMILY PHYSICIAN Internal Medicine
PROC: 0W993ZZ Drainage of Right Pleural Cavity, Percutaneous Approach (ICD-10-PCS; 2024-02-17)
PROC: 5A1D70Z Performance of Urinary Filtration, Intermittent, Less than 6 Hours Per Day (ICD-10-PCS; 2024-02-18)
DX: I13.2 Hypertensive heart and chronic kidney disease with heart failure and with stage 5 chronic kidney disease, or end stage renal disease (principal); E10.10 Type 1 diabetes mellitus with ketoacidosis without coma; I50.33 Acute on chronic diastolic (congestive) heart failure; N18.6 End stage renal disease; J90 Pleural effusion, not elsewhere classified; E87.1 Hypo-osmolality and hyponatremia; G89.29 Other chronic pain; K31.84 Gastroparesis; E10.22 Type 1 diabetes mellitus with diabetic chronic kidney disease; I27.20 Pulmonary hypertension, unspecified; F10.11 Alcohol abuse, in remission; F32.A Depression, unspecified; F41.9 Anxiety disorder, unspecified; E10.65 Type 1 diabetes mellitus with hyperglycemia; D63.1 Anemia in chronic kidney disease; F17.210 Nicotine dependence, cigarettes, uncomplicated; Z99.2 Dependence on renal dialysis; Z79.4 Long term (current) use of insulin; Z86.711 Personal history of pulmonary embolism
CPT/HCPCS: 88305; 32555; 71045; 71046; 80048; 80053; 82010; 82962; 83615; 83735; 83986; 84157; 85025; 85027; 87015; 87070; 87205; 87389; 88112; 89051; 93306; 96374; 99285; 99406; P9047; Q5106

== ENCOUNTER 2024-02-22 02:41 | Inpatient (IN) | payer OTHER, SELFPAY ==
[2024-02-21 22:54] VITALS: BP 195/102; BMI 25.7
[2024-02-21 23:22] LABS: % Basophils 1.1 % (0-2); % Eosinophils 2.8 % (0-6); % Immature Granulocytes 0.4 % (0-0.5); % Lymphocytes 18.6 % (20.5-51.1); % Monocytes 12.7 % (1.7-9.3); % Neutrophils 64.4 % (42.2-75.2); Absolute Basophils 0.1 10^3/uL (0-0.2); Absolute Eosinophils 0.1 10^3/uL (0-0.7); Absolute Lymphocytes 0.9 10^3/uL (1.2-3.4); Absolute Monocytes 0.6 10^3/uL (0.1-0.6); Absolute Neutrophils 2.9 10^3/uL (1.4-6.5); Hemoglobin 10.6 g/dL (13.0-18.0); Mean Corp Hgb Conc. 34.2 g/dL (33.0-37.0); Mean Corpuscular Hgb 32.3 pg (27.0-31.0); Mean Corpuscular Volume 94.5 fL (80.0-94.0); Mean Platelet Volume 9.8 fL (7.4-10.4); Nucleated Red Blood Cells % 0 % (-); Platelet Count 203 10^3/uL (130-400); Red Blood Cell Count 3.28 10^6/uL (4.70-6.10); White Blood Cell Count 4.6 10^3/uL (4.8-10.8)
[2024-02-21 23:22] LABS: Glucose - Point of Care 399 mg/dl (70-99)
[2024-02-21 23:43] LABS: ALT (SGPT) 21 U/L (0-50); AST (SGOT) 32 U/L (17-59); Albumin 3.7 g/dl (3.5-5.0); Alkaline Phosphatase 133 U/L (38-126); Blood Urea Nitrogen 57 mg/dl (9-20); Calcium 8.9 mg/dl (8.4-10.2); Carbon Dioxide 24 mmol/L (22-30); Chloride 96 mmol/L (98-107); Estimated Creatinine Clearance 17 ml/min; Glucose 412 mg/dl (70-99); Potassium 4.1 mmol/L (3.5-5.1); Sodium 133 mmol/L (135-145); Total Bilirubin 0.7 mg/dl (0.2-1.3); Total Protein 6.5 g/dl (6.3-8.2); eGFR 12.44
--- NOTE | 2024-02-21 23:59 | ED.GENMED ---
History of Present Illness
General
Chief Complaint: Breathing Problem
Source: patient
Exam Limitations: none
Time Seen by Provider: 02/21/24 23:17
Travel History
Have you had any contact with someone who has COVID-19?: No
Do you have any symptoms of coronavirus? Fever > 100 degrees, chills, cough, shortness of breath, sore throat, loss of taste or smell, muscle aches, or headache?: No
History of Present Illness
History of Present Illness:
This is a 33 year old male that comes in with multiple complaints. State that he has right lower abd pain and SOB. State that he is nauseated and is vomiting. State that his last dialysis appointment they had an infiltration. States that they were
only able to do half of his Treatment. States that he is SOB nausea, vomiting and has right lower abd pain. Denies any fever, chills, chest pain, diarrhea, headache, dizziness. Patient states that he hardly urinate occasionally but it is far in
between voids.
Past History
Past History
ED Past Medical History: CHF, HTN, IDDM, Renal failure (Dialysis M-W-) and Other (ESRD, PE, Contipation, ESRD, TR, pulmonary hypertension, congestive heart failure, etc.)
ED Past Surgical History: Appendectomy and Other (Left AV fistula, biliary drain removed)
Patient has exhibited threatening behavior?: No
PSI?: No
Social History
Tobacco: Smoker
Alcohol: None
Drug: None
Personal: Single
Living: with family
Employment: Other
Family History
Family History: Other
Review of Systems
Review of Systems
All Other Systems: ROS reviewed and negative except as documented in HPI and ROS
Constitutional: Reports no symptoms; Denies fever or chills
EENT: Reports no symptoms
Respiratory: Reports trouble breathing; Denies cough
Cardiac: Reports no symptoms; Denies chest pain
ABD/GI: Reports abdominal pain, nausea and vomiting; Denies diarrhea
: Reports no symptoms
Musculoskeletal: Reports no symptoms
Skin: Reports no symptoms
Neurological: Reports no symptoms; Denies dizzy or headache
Psychiatric: Reports no symptoms
Phy Exam
General Physical Exam
General Presentation: mild distress
General age: appears stated age
General Skin: warm and dry
General Habitus: normal
General Mental: alert
General Hydration: appears well hydrated
ENT Exam
ENT Exam: TM's normal, pharynx normal and neck supple
Eye Exam
Eye Exam: EOMI
Cardiovascular Exam
Cardiovascular Exam: regular rate/rhythm and normal peripheral pulses
Pulmonary Exam
Pulmonary Exam: no respiratory distress, chest non tender, no rhonchi, no wheezing, no cough and other (Fine rales at bases)
Gastrointestinal Exam
Gastrointestinal Exam: no organomegaly, no pulsatile mass, distended, tender (Right lower abd tenderness with palpation) and other (Hypoactive bowel sounds)
Musculoskeletal Exam
Musculoskeletal Exam: full ROM and edema (Bilateral lower legs +1 pitting)
Skin Exam
Skin Exam: warm/dry, pallor and other (Lower leg healing sores at different stages of healing. Lower leg redness appears petechial in nature.)
Psychiatric Exam
Psychiatric Exam: normal mood/affect
Course
Orders/Labs/Results
Orders:
Orders
02/21/24 23:01
Cardiac Monitoring- Treatment ONCE
IV Insert/Care/Rem.- Treatment PRN
02/21/24 23:02
Electrocardiogram (*1) Urgent
Reason for Study: Abdominal Pain
02/21/24 23:04
EKG- Treatment ONCE
02/21/24 23:17
B-Hydroxybutyrate Urgent
Comment: ADDED
Complete Blood Count/With Diff Urgent
Comprehensive Metabolic Panel Urgent
02/21/24 23:57
Insulin Aspart [NOVOLOG vial] 14 units SC NOW STA
02/22/24 00:00
CT Abd/pelvis W Iv Cont Urgent
Comment: Chronic renal failure on Dialysis
Reason For Exam: Right sided abd pain
HYDROmorphone [Dilaudid] 0.5 mg IV NOW STA
Ondansetron Injectable [Zofran] 4 mg IV NOW STA
CR Chest - 2 Views Urgent
Comment:
Reason For Exam: SOB
02/22/24 01:16
HYDROmorphone [Dilaudid] 0.5 mg IV NOW STA
02/22/24 01:29
Prothrombin Time Urgent
02/22/24 01:34
Acetaminophen [Tylenol] 1,000 mg .ROUTE .STK-MED ONE
Carvedilol [Coreg] 25 mg PO NOW STA
02/22/24 01:37
Acetaminophen [Tylenol] 1,000 mg PO NOW STA
02/22/24 01:46
Admit/Transfer Patient As Directed
Co-Sign Provider:
Level of Care: Inpatient admission
Assign to:: Telemetry
Physician / Group: Martin
Diagnosis: Volume Overload
Reason for Telemetry: Acute Heart Failure
Date to Stop Telemetry: 02/25/24
Time to Stop Telemetry: 11:00
Reason for Hospitalization: Volume Overload
Expected length of stay greater than two midnights?: Yes
ELOS- Estimated Length of Stay in days: 2
I certify the patient meets the requirements for IP care: Yes
02/22/24 01:53
Code Status As Directed
Resuscitation Status: Full Code
02/22/24 03:32
Acetaminophen [Tylenol] 650 mg PO Q4HPRN PRN
Dextrose 50%-Water [Dextrose 50% Syringe] 12.5 grams IV [id number] PRN
Glucagon [GlucaGen] 1 mg IM PRN PRN
HydrALAZINE [Apresoline] 10 mg IV Q6HPRN PRN
Ketorolac [Toradol] 15 mg IV Q6HPRN PRN
Metoclopramide [Reglan] 10 mg PO TIDPRN PRN
Ondansetron Injectable [Zofran] 4 mg IV Q6HPRN PRN
Polyethylene Glycol Powder [Miralax] 17 grams PO DAILY PRN
02/22/24 03:32
Consult Notification Routine
Specialty to Notify: Nephrology
Diabetes Management by Nurse Practitioner Routine
Consulting Provider: Giuliana Bailey
Was provider already notified?: No
Reason for Consult: Insulin Management
NEPHROLOGY CONSULT Routine
Consulting Provider: Kulwinder Vigil V.
Was physician already notified: No
Reason for consult: ESRD / Anasarca
WOUND/OSTOMY CONSULT Routine
Reason for Consult: UE / LE wounds
Activity As Directed
Activity Level: Ambulate
Bedside Glucose Monitoring As Directed
Frequency: AC&HS
Additional Instructions:: Change to q6h if pt on TPN, tube feeding or not eating
EKG with chest pain [ECG as needed] As Directed
ECG as needed for:: Chest Pain
I/O [Intake/ Output] As Directed
Frequency: Per unit guidelines
Orthostatic Vital Signs As Directed
Orthostatic VS Frequency: BID
Vital Signs As Directed
Frequency: Per unit guidelines
Weight As Directed
Frequency: Daily
Oxygen Therapy [O2 Therapy] [RESP] Routine
Titrate/Wean O2 to maintain O2 sat greater than (%): 94
Rx Incentive Spirometry [RESP] Routine
Frequency: q1h while awake
DX Deep Vein Thrombosis Video Routine
02/22/24 06:00
EKG [Electrocardiogram (*1)] IN AM
Reason for Study: Chest Pain
1800 calorie (15 carb) Diabetic
At Your Request: Full Participation
Fluid Restriction: 1440 mL/day (48 oz)
Basic Metabolic Panel IN AM
Complete Blood Count/No Diff IN AM
Magnesium IN AM
Phosphorus IN AM
02/22/24 08:00
Amlodipine [Norvasc] 10 mg PO DAILY
Carvedilol [Coreg] 25 mg PO BID
Furosemide [Lasix] 40 mg PO BID
Heparin 5,000 units SC Q12
Oxcarbazepine [Trileptal] 150 mg PO DAILY
Pantoprazole [Protonix IV] 40 mg IV DAILY
02/22/24 22:00
Amitriptyline [Elavil] 10 mg PO HS
Gabapentin [Neurontin] 100 mg PO HS
Trazodone [Desyrel] 25 mg PO HS
02/25/24 11:00
DC Protocol for Telemetry ONCE
Abnormal Lab Results
02/21/24 02/21/24 02/22/24
23:17 23:21 01:12
WBC 4.6 L 10^3/uL
(4.8-10.8)
RBC 3.28 L 10^6/uL
(4.70-6.10)
Hgb 10.6 L g/dL
(13.0-18.0)
Hct 31.0 L %
(39.0-52.0)
MCV 94.5 H fL
(80.0-94.0)
MCH 32.3 H pg
(27.0-31.0)
RDW 16.0 H %
(11.5-14.5)
Absolute Lymphs (auto) 0.9 L 10^3/uL
(1.2-3.4)
Lymphocytes % 18.6 L %
(20.5-51.1)
Monocytes % 12.7 H %
(1.7-9.3)
PT
Sodium 133 L mmol/L
(135-145)
Chloride 96 L mmol/L
(98-107)
BUN 57 H mg/dl
(9-20)
Creatinine 5.8 H* mg/dL
(0.7-1.3)
Glucose 412 H mg/dl
(70-99)
Alkaline Phosphatase 133 H U/L
(38-126)
POC Glucose 399 H mg/dl 225 H mg/dl
(70-99) (70-99)
02/22/24
01:29
WBC
RBC
Hgb
Hct
MCV
MCH
RDW
Absolute Lymphs (auto)
Lymphocytes %
Monocytes %
PT 15.2 H Sec
(11.4-14.6)
Sodium
Chloride
BUN
Creatinine
Glucose
Alkaline Phosphatase
POC Glucose
02/21/24 23:17
02/21/24 23:17
WBC very slightly low. H/H low Sodium slightly low. Chloride low, Chronic renal failure, Hyperglycemia, Alk phos elevation. Anion gap 13, B-hydroxybutyrate normal at 0.08,
Vital Signs
Initial and Last Documented VS:
Initial Vital Signs
Temp Pulse Resp BP Pulse Ox
98.9 F 95 18 195/102 96
02/21/24 22:54 02/21/24 22:54 02/21/24 22:54 02/21/24 22:54 02/21/24 22:54
Last Documented Vital Signs
Temp Pulse Resp BP Pulse Ox
98.4 F 98 20 178/111 96
02/22/24 03:41 02/22/24 03:41 02/22/24 03:41 02/22/24 03:41 02/22/24 03:41
MDM/Problems Addressed
Differential Diagnosis Includes:
CHF, Bowel obstruction. Diverticulitis,
MDM/Problems Addressed:
This is a 33 year old male that comes in with multiple complaints. States that he is SOB and they only did half of his dialysis treatment on Friday as there was an infiltration at the fistula site and when he is about half way through he started to
have pain. States that he also has right lower abd pain and his abd is distended.
Will check labs, CT scan. Medication for Hyperglycemia.
Back into see patient. Explained that the CT of his abd is negative for any acute process. However, his chest-X-ray shows a right sided pleural effusion. Patient only had half of his Dialysis treatment on Friday and states that he has had
Thoracentesis in the past. Will admit. Hospitalist notified.
Chronic conditions affecting care: Kidney disease and Other (history of CHF)
Acute Exacerbation and/or Progression of Chronic Illness: Kidney disease
*Radiology
Radiology exam reviewed: preliminary read by ED provider (Chest- right sided pleural effusion), radiology read reviewed (CT night hawk-No acute findings in the abdomen. Moderate right pleural effusion, Similar to previous. Right lower lobe
atlectasis. Moderate bowey wall edema. No ascites. No evidence of diverticulitis or colitis. Appendectomy. NO bowel obstruction. No free air. No obstructive uropathy. No concerning) and other (CT cont- bone finding. Mild bilateral renal atrophy)
*Pulse Oximetry
Patient hypoxic: no
*EKG
Interpreted by ED Provider?: Yes
Heart Rate: 93
Rate: normal
Rhythm: sinus
[place]: normal axis
Interval: normal interval and long QT
QRS Pattern: normal QRS
Ischemia: non-specific ST changes (I, KK, V4, V5, V6 )
*[facility] Interpretation
Rate: normal
Heart Rate: 9
Rhythm: sinus
*Critical Care Note
Total Time (30-74mins, 75-104mins- exclusive of procedures): Not Applicable
ED Attending Note
-
Portions of this chart may have been created with voice recognition software.� Occasional wrong word or��sound alike� substitutions may have occurred due to the inherent limitations of voice recognition software.
Discharge Plan
Departure
Patient Disposition: Admit
Date of Disposition: 02/22/24
Time of Disposition: 01:28
Admit to: Telemetry
Presentation/result/management discussed w/ accepting MD/DO: Hospitalist
Patient with high blood pressure during this ER visit?: Yes
Condition: Good
Covid-19: Not Applicable
Discharge Problem:
SOB (shortness of breath), Pleural effusion, right, Nausea & vomiting, Abdominal pain, right lower quadrant
Interventions
Interventions:
*Risk Screen - Suicide Last Done: 02/21/24 22:54
*General Assessment Last Done: 02/21/24 22:54
*Neglect/Abuse Screening Last Done: 02/21/24 22:54
ED- Fall Risk Assessment Last Done: 02/21/24 23:46
*ED COVID-19 Vaccine History Last Done: 02/21/24 22:54
*Nursing Disposition Last Done: 02/22/24 03:15
ZM-Eiaboy-Kkjewfmbrj Assessment Last Done: 02/21/24 23:37
ED- Cardiac Assessment Last Done: 02/21/24 23:37
ED- Pulmonary Assessment Last Done: 02/21/24 23:37
Discharge Date and Time
Discharge Date/Time: 02/22/24 03:34
[2024-02-22] VITALS: BP 179/98
[2024-02-22] MEDS: NOVOLOG vial 14 UNITS SC (00:07)
[2024-02-22] MEDS: ZOFRAN 4 MG IV (00:07)
[2024-02-22] MEDS: DILAUDID 0.5 MG IV ×2 (00:08→01:19)
[2024-02-22 01:00] VITALS: BP 184/95
[2024-02-22 01:00] LABS: B-Hydroxybutyrate 0.08 mmol/L (0.02-0.27)
[2024-02-22 01:12] VITALS: BP 190/106
[2024-02-22 01:13] LABS: Glucose - Point of Care 225 mg/dl (70-99)
[2024-02-22] MEDS: TYLENOL 1000 MG PO (01:37)
[2024-02-22 01:46] LABS: INR 1.21; PT 15.2 Sec (11.4-14.6)
[2024-02-22] MEDS: COREG 25 MG PO (01:46)
--- NOTE | 2024-02-22 02:02 | HPS.HSE ---
Family Physician
-
Family Physician: Casper Arroyo
Chief Complaint
-
Abd Pain, SOB
History of Present Illness
Patient is a 33y M with PMH significant for DM-I and ESRD on HD who presents to ED complaining of edema, dyspnea and abdominal pain. Patient was recently admitted from 02/15 - 02/18 and has essentially been hospitalized with minimal interruption
since 01/10/24. Patient was mostly recently admitted for volume overload and received HD during his stay. He also underwent R thoracentesis on 02/16 for 1800cc of transudative fluid. He has chronic complaints of RLQ abdominal pain - which may be
related to volume overload / etc. Repeated investigation, abdominal imaging, etc has proven unremarkable.
Patient was discharged on 02/18 to home.
He states that he went for his usual HD session on 02/19, but was only able to tolerate about 1/2 of his scheduled session.
Patient complains of pain in the LUE / at the AVF site following previous instance of infiltration. The fistula does function properly.
This AM, patient noted abdominal pain in the RLQ. He noted swelling of the legs and increased SOB. Patient states that she had N/V x 2-3 episodes today. He believes that he threw up his BP medications.
Patient presented to the ED for further evaluation and treatment.
Medical History
Past Medical History
Past Medical History: Reports Other
Additional Past Medical History:
DM-I (Dx age 13)
ESRD on HD
Poor Compliance
History of PE
Hypertension
Gastroparesis
Anxiety / Depression
Past Surgical History: Reports Other
Additional Past Surgical History:
LUE AVF
Appendectomy
PD Catheter placed / removed
Social History
Tobacco: Smoker (Current every day smoker. 1/2 ppd for total of 20 pack years.)
Alcohol: Occasional
Drug: None
Family History
Family History: Asthma
Allergies / Home Medications
Allergies reflects when Allergies were last updated in [facility].
Home Medications with original date entered in [employer]
Allergy/Medication List:
Allergies
Allergy/AdvReac Type Severity Reaction Status Date / Time
shellfish derived Allergy Hives Verified 02/21/24 22:52
Home Medications
amlodipine 10 mg tablet 10 mg PO DAILY Blood pressure 04/22/21
carvedilol 25 mg tablet (Coreg) 25 mg PO BID Blood pressure 04/22/21
furosemide 40 mg tablet 40 mg PO BID Fluid retention/Swelling 04/22/21
metoclopramide HCl 10 mg tablet (Reglan) 10 mg PO TIDPRN PRN nausea 04/07/23
oxcarbazepine 150 mg tablet 150 mg PO DAILY Mental Health/Anxiety 07/24/23
trazodone 50 mg tablet 25 mg PO HS sleep 01/05/24
Patient Own Insulin Pump 0 units SC .VIA PUMP diabetes 02/13/24
Review of Systems
-
History Source: Patient
A 12 point ROS was completed and negative except as noted: Yes
Constitutional: Reports Weight Gain and Fatigue; Denies Fever or Chills
EENT: Denies Sore Throat
Respiratory: Reports Trouble Breathing; Denies Cough or Hemoptysis
Cardiac: Denies Chest Pain or Palpitations
Abdomen/GI: Reports Abdominal Pain, Nausea and Vomiting; Denies Diarrhea, Constipated, Bloody Stools or Black Stools
: Denies Flank Pain
Musculoskeletal: Reports Edema
Neurological: Denies Dizzy or Headache
Psych: Denies Depression or Anxiety
Physical Exam
Vital Signs
Vital Signs
Temp Pulse Resp BP Pulse Ox
98.9 F 96 18 190/106 97
02/21/24 22:54 02/22/24 01:46 02/22/24 01:30 02/22/24 01:46 02/22/24 01:30
Physical Exam
General: Other (33y M in no distress.)
HEENT: Moist mucous membranes and PERRLA
Respiratory: Other (Decreased BS at R base about 1/4 up. Bibasilar rales. No wheezing.)
Cardiac: S1/S2 and Regular Rhythm; No Murmur
GI: Other (Abdomen is distended and moderately firm. Pos tenderness diffusley - most notable in the RLQ. No rebound. Pos voluntary guarding.)
Musculoskeletal: No Clubbing, No Cyanosis and Other (2-3+ pitting edema LEs.)
Skin: Other (Scattered superficial ulcerations over the b/l LEs and the RUE. )
Hematologic/Lymphatic: Other (LUE AVF with positive thrill and bruit. Mild tenderness, no fluctuance. Surrounding ecchymosis.)
Laboratory Results
-
02/21/24 23:17
02/21/24 23:17
Laboratory Results
Total Bilirubin 0.7 mg/dl (0.2-1.3) 02/21/24 23:17
AST 32 U/L (17-59) 02/21/24 23:17
ALT 21 U/L (0-50) 02/21/24 23:17
Alkaline Phosphatase 133 U/L (38-126) H 02/21/24 23:17
Impression/Plan
-
A/P: Patient is a 33y M with PMH significant for DM-I, ESRD on HD and prior substance abuse who presents to ED complaining of abdominal pain and SOB.
Anasarca / Hypervolemia
ESRD on HD
Right Pleural Effusion
- Admit for further evaluation and treatment.
- Patient is in no distress and is not hypoxemic.
- Nephrology consulted for HD / UF during hospital stay.
- Monitor for clinical changes.
- Consider IR eval / repeat thoracentesis next week if fluid worsens / does not improve.
- Current CXR appears improved from his POST-thoracentesis x-ray on last admission.
- It is not entirely clear why patient is unable to tolerate complete HD / UF sessions as an outpatient.
Uncontrolled Hypertension
- Asymptomatic / no hypertensive emergency.
- Majority of BP elevation is likely volume-mediated.
- Continue usual home medications.
- IV hydralazine PRN very high BPs.
- Follow for improvement with successful HD / UF.
DM-I, Uncontrolled
- Initial glucose > 400 with normal B-OH, no significant anion gap elevation.
- Patient notes that he took 10 units of insulin at home prior to transport and he was given an additional 14 units here.
- Glucose at the time of my exam (by his CGM) was 171.
- Follow for continued / adequate glycemic control.
- Patient has pump / CGM tandem that should function appropriately.
- Monitor with fingerstick and provide additional bolus does as needed.
- DM DEALER SALES MANAGER evaluation for insulin recommendations / management.
Chronic Gastroparesis
Chronic Abdominal Pain
- Repeat CT again in the ED today shows no acute abnormality or apparent etiology of the patient's pain.
- Will restart gabapentin for chronic pain control.
- Try to avoid narcotic pain medications.
- Continue metoclopramide for gastroparesis symptoms.
Anxiety / Depression
- Stable. Continue current outpatient psychotropic meds.
Anemia of Chronic Disease
- Stable. Hgb is at / near known baseline.
DVT Prophylaxis: Subcut Heparin
Code Status: Full
[2024-02-22 03:06] LABS: Glucose - Point of Care 106 mg/dl (70-99)
[2024-02-22 03:41] VITALS: BP 178/111
[2024-02-22 03:42] VITALS: BMI 24.9
--- NOTE | 2024-02-22 04:00 | PTCARENOTE ---
Pt was admitted to 4W room 424. Pt complains of 8/10 abdominal pain and is requesting Dilaudid. Pt made aware that only Tylenol and Toradol are available. Pt states that those meds do not help and still wants Dilaudid. ADRIANA Calix made aware. Strictly no
narcotic medications to be given to pt. Pt wants to leave AMA after hearing this. ADRIANA Calix notified of pt wanting to leave AMA. Pt does not want to wait for SALES ADMINISTRATION SPECIALIST and to sign AMA paperwork. IV removed. Pt escorted to emergency room entrance where he will
order Uber ride service to his home.
--- NOTE | 2024-02-22 04:27 | W.PN.UPDATE ---
Update Note
Progress Note Update
Pt arrived to unit from ED and aksed for pain medication. RN reported that he did not want what was ordered (non narcs). He specifically asked for dilaudid. When he was told dilaudid would not be ordered her wanted to sign out AMA. On arrival to
unit to have pt sign AMA papers, pt had already left.
PT known to frequently leave AMA
--- NOTE | 2024-02-25 23:02 | W.DCSUMMARY ---
Discharge Summary
Discharge Data
Date of Admission: 02/22/24
Date of Discharge: 02/22/24
-
Pending Results: No
Hospital Course
Patient is a 33y M with PMH significant for DM-I and ESRD on HD who presented to ED complaining of edema, dyspnea and abdominal pain. He was found to have poorly controlled DM-I - without evidence for DKA. He was noted to have R pleural
effusion and reported that he did not tolerate his full HD session the day prior. Patient was admitted for further evaluation and treatment.
Patient had complaints of abdominal discomfort on admission - which on review appears to be a chronic complaint.
He was advised on admission that we would seek to avoid narcotic pain medication.
After arrival to the medical floor from the ED, patient requested Dilaudid for pain. He refused to trial any of the pain medications that had been ordered for him and demanded Dilaudid.
Patient informed staff that he would sign out AMA if he did not receive Dilaudid.
SCRIPT DEVELOPER contract post office clerk went to speak with patient / have him complete AMA paperwork, but found that he had already left by the time she arrived on the unit.
Discharge Plan
-
Patient Disposition: Against Medical Advice
Discharge Diagnosis/Procedures: ESRD on HD, Uncontrolled DM-I, Chronic Pain
Prescriptions:
No Action
furosemide 40 MG tablet
40 mg PO BID
carvedilol [Coreg] 25 MG tablet
25 mg PO BID
amlodipine 10 MG tablet
10 mg PO DAILY
metoclopramide HCl [Reglan] 10 mg Tablet
10 mg PO TIDPRN PRN (Reason: nausea)
oxcarbazepine 150 mg tablet
150 mg PO DAILY
trazodone 50 mg Tablet
25 mg PO HS
Patient Own Insulin Pump
0 units SC .VIA PUMP
Rx Instructions:
patient using novolog
Discharge Date and Time
Discharge Date/Time: 02/22/24 04:00
Print Language: KINYARWANDA
== END 2024-02-22 04:00 | disposition left against medical advice (07) | DRG 637 ==
LOC: 4 WEST ACU 02:41
PROVIDERS: Clinical Nurse Specialist Family Health; ADMITTING PHYSICIAN Hospitalist; EMERGENCY PHYSICIAN Student in an Organized Health Care Education/Training Program; FAMILY PHYSICIAN Internal Medicine
DX: E10.65 Type 1 diabetes mellitus with hyperglycemia (principal); N18.6 End stage renal disease; I13.2 Hypertensive heart and chronic kidney disease with heart failure and with stage 5 chronic kidney disease, or end stage renal disease; J90 Pleural effusion, not elsewhere classified; I50.9 Heart failure, unspecified; I27.20 Pulmonary hypertension, unspecified; F17.210 Nicotine dependence, cigarettes, uncomplicated; E87.70 Fluid overload, unspecified; K31.84 Gastroparesis; D63.8 Anemia in other chronic diseases classified elsewhere; G89.29 Other chronic pain; E10.43 Type 1 diabetes mellitus with diabetic autonomic (poly)neuropathy; F32.A Depression, unspecified; F41.9 Anxiety disorder, unspecified; E10.22 Type 1 diabetes mellitus with diabetic chronic kidney disease; Z99.2 Dependence on renal dialysis; Z79.4 Long term (current) use of insulin; Z86.711 Personal history of pulmonary embolism; Z91.013 Allergy to seafood
CPT/HCPCS: 71046; 74177; 80053; 82010; 82962; 85025; 85610; 93005; 96372; 96374; 96375; 96376; 99285; Q9967

== ENCOUNTER 2024-02-25 08:53 | Emergency (ER) | payer OTHER, SELFPAY ==
[2024-02-25 08:55] VITALS: BP 140/91
[2024-02-25 09:04] VITALS: BMI 27.2
--- NOTE | 2024-02-25 09:19 | EDRN ---
Dr. Keenan currently at the pts bedside speaking with the pt
--- NOTE | 2024-02-25 09:24 | ED.GENMED ---
History of Present Illness
General
Chief Complaint: Abdominal Pain
Source: patient
Time Seen by Provider: 02/25/24 09:18
Travel History
Have you had any contact with someone who has COVID-19?: No
Do you have any symptoms of coronavirus? Fever > 100 degrees, chills, cough, shortness of breath, sore throat, loss of taste or smell, muscle aches, or headache?: No
History of Present Illness
History of Present Illness:
33-year-old male presents to the emergency room complaining of nausea, vomiting, abdominal pain. Patient has been having the symptoms for some time. He has frequent visits to the emergency room. He has a history of end-stage renal disease on
dialysis Friday. His dialysis appointment today was 11 because he was having abdominal pain he came here. Patient also has type 1 diabetes for which he uses an insulin pump. Patient's last ER visit was on February 20 at which point
he was admitted but signed out AMA because he was not getting IV pain medication.
Past History
Past History
ED Past Medical History: CHF, HTN, IDDM, Renal failure (Dialysis --) and Other (ESRD, PE, Contipation, ESRD, TR, pulmonary hypertension, congestive heart failure, etc.)
ED Past Surgical History: Appendectomy and Other (Left AV fistula, biliary drain removed)
Patient has exhibited threatening behavior?: No
PSI?: No
Social History
Tobacco: Smoker
Alcohol: None
Drug: None
Personal: Single
Living: with family
Employment: Other
Family History
Family History: Other
Phy Exam
Physical Exam
Physical Exam:
General: Awake, Alert, Oriented X3. No acute distress, appears chronically ill
Vitals: unremarkable
Head: Atraumatic
Eyes: Pupils equal, EOMI
Throat: Airway intact, no exudates, mildly dry mucosa
Neck: Trachea midline
Lungs: Clear and equal b/l
Heart: Regular rate, no murmurs
Abd: Soft, mildly tender diffusely, No pulsatile mass
Neuro: Nonfocal
Skin: Warm, dry, no rash
Extremities: pulses equal b/l, no edema
Course
Orders/Labs/Results
Orders:
Orders
02/25/24 09:21
Diphenhydramine [Benadryl] 25 mg IV NOW STA
Prochlorperazine [Compazine] 10 mg IV NOW STA
02/25/24 09:21
02/25/24 09:21
Vital Signs
Initial and Last Documented VS:
Initial Vital Signs
Temp Pulse Resp BP Pulse Ox
98.1 F 94 18 140/91 93
02/25/24 08:55 02/25/24 08:55 02/25/24 08:55 02/25/24 08:55 02/25/24 08:55
Last Documented Vital Signs
Temp Pulse Resp BP Pulse Ox
98.1 F 94 18 140/91 99
02/25/24 08:55 02/25/24 08:55 02/25/24 08:55 02/25/24 08:55 02/25/24 09:04
MDM/Problems Addressed
Differential Diagnosis Includes:
exacerbation of chronic pain, gastroparesis, electrolyte abn,
MDM/Problems Addressed:
Patient presents essentially complaining of continued abdominal pain. He does have a history gastroparesis. Patient has a reassuring exam without any physical exam findings to suggest a surgical emergency. Diabetic screen ordered. Reviewing the
patient's recent visits has had multiple visits for various complaints including DKA and heart failure. However he does always seem to have abdominal pain. Last visit he was hospitalized for abdominal pain but signed out AMA when he was
transferred to the floors because there was no orders for Dilaudid. The patient has significant medical history and is asked to perform screening test to exclude severe pathology chronicity is abdominal pain I do not believe that IV narcotics are
indicated. Unfortunately when the patient learned that I did not order IV products he told the nurse he did not want to stay any longer and wanted to leave AGAINST MEDICAL ADVICE. He had not had any blood work drawn at this point. Patient did not
stay long enough to sign an AMA form and discussed this with me.
*Critical Care Note
Total Time (30-74mins, 75-104mins- exclusive of procedures): Not Applicable
ED Attending Note
-
Portions of this chart may have been created with voice recognition software.� Occasional wrong word or��sound alike� substitutions may have occurred due to the inherent limitations of voice recognition software.
Discharge Plan
Departure
Patient Disposition: Against Medical Advice
Discharge Problem:
Abdominal pain
Prescriptions:
No Action
furosemide 40 MG tablet
40 mg PO BID
carvedilol [Coreg] 25 MG tablet
25 mg PO BID
amlodipine 10 MG tablet
10 mg PO DAILY
metoclopramide HCl [Reglan] 10 mg Tablet
10 mg PO TIDPRN PRN (Reason: nausea)
oxcarbazepine 150 mg tablet
150 mg PO DAILY
trazodone 50 mg Tablet
25 mg PO HS
Patient Own Insulin Pump
0 units SC .VIA PUMP
Rx Instructions:
patient using novolog
Referrals:
Casper Arroyo MD [Family Provider] -
Interventions
Interventions:
*Risk Screen - Suicide Last Done: 02/25/24 09:04
*General Assessment Last Done: 02/25/24 09:04
*Neglect/Abuse Screening Last Done: 02/25/24 09:04
ED- Fall Risk Assessment Last Done: 02/25/24 09:04
*ED COVID-19 Vaccine History Last Done: 02/25/24 08:55
*Nursing Disposition Last Done: 02/25/24 09:36
TA-Uwktkl-Fzgqnksklh Assessment Last Done: 02/25/24 09:04
Discharge Date and Time
Discharge Date/Time: 02/25/24 09:46
Print Language: AZERI
--- NOTE | 2024-02-25 09:29 | EDRN ---
this RN entered the pts room and this RN notified the pt that this RN wanted to obtain vital signs, perform an EKG, place a PIV and obtain blood work, the pt stated to this RN, 'Before you do anything, let's talk about this pain, that's why i came
here for my pain so when am i going to get dilaudid?', this RN spoke with Dr. Keenan and per the provider the pt is not to have IV pain medication, per the provider the pt can have PO tylenol, this RN notified the pt that narcotics were not going
to be ordered for him and the pt stated to this RN, 'Well that's why i came here so i guess i'll just leave then, if you're not going to help me', this RN explained to the pt that this RN and the provider want to help the pt however the pt is not
going to receive narcotics, this RN asked the pt to at least allow this RN to obtain vital signs and an EKG and the pt refused and stated, 'I'm leaving i don't need to be here, i came here for pain medication to help my pain, i'm leaving', the pt
then proceeded to pack his belongings and walked out of the room and out of the department, provider Dr. Keenan was notified
== END 2024-02-25 09:46 | disposition left against medical advice (07) ==
LOC: EMR 08:53
PROVIDERS: EMERGENCY PHYSICIAN Emergency Medicine; FAMILY PHYSICIAN Internal Medicine
DX: R10.9 Unspecified abdominal pain (principal); F17.200 Nicotine dependence, unspecified, uncomplicated; Z99.2 Dependence on renal dialysis
CPT/HCPCS: 99281

== ENCOUNTER 2024-02-26 03:23 | Observation (INO) | payer OTHER, SELFPAY ==
[2024-02-25 21:36] VITALS: BMI 22.7
[2024-02-25 21:37] VITALS: BP 171/105
[2024-02-25] MEDS: COMPAZINE 10 MG IV (23:09)
[2024-02-25] MEDS: BENADRYL 50 MG IV (23:09)
[2024-02-25] MEDS: DILAUDID 0.5 MG IV (23:10)
--- NOTE | 2024-02-25 23:13 | ED.GENMED ---
History of Present Illness
General
Chief Complaint: Abdominal Symptoms
Source: patient, ambulance crew, previous radiology exam and previous hospital records (Multiple recent hospitalizations since January 10, 2024 most recently 02/15-02/18 and then again 02/20 for which she signed out AMA promptly upon arrival to the floor.)
Exam Limitations: none
Time Seen by Provider: 02/25/24 22:12
Nursing documentation reviewed up to this point in time: agreed with
Travel History
Have you had any contact with someone who has COVID-19?: No
Do you have any symptoms of coronavirus? Fever > 100 degrees, chills, cough, shortness of breath, sore throat, loss of taste or smell, muscle aches, or headache?: No
History of Present Illness
History of Present Illness:
This is a 33-year-old male who has history of type 1 insulin-dependent diabetes, end-stage renal disease on hemodialysis, gastroparesis with chronic abdominal pain, frequent nausea and vomiting, chronic right-sided pleural effusion status post
thoracentesis in February 16 for 1800 cc transudative fluid. He has been hospitalized here on a near continuous basis since January 10, 2024. Multiple repeated evaluations of abdominal pain have revealed no acute findings save for abdominal ascites.
He has also been hospitalized for acute DKA most recently February 15 to February 18. DKA thought to be related to insulin pump malfunction.
During many of these recent hospitalizations patient has been receiving near [id number] IV Dilaudid for chronic abdominal pain. When IV narcotics are discontinued he unfortunately signed out AMA.
Most recent hospitalization February 20, patient signed out promptly upon transfer to the floor after discovering IV narcotics were not ordered.
He also presented to this ED this morning with similar complaints of chest pain, abdominal pain, nausea and vomiting. Promptly signed out AMA after initial ED physician evaluation when he was recommended to avoid IV narcotics.
He is maintained on thrice weekly hemodialysis�Friday/Friday/Friday. He did miss his dialysis today and has rescheduled this for tomorrow morning. He does admit to mild bilateral lower extremity edema that is stable and unchanged.
He returns tonight with continued complaints of lower to mid substernal chest pain, constant in nature throughout the day along with continued right lower quadrant abdominal pain and recurrent nausea and vomiting throughout the day. No relief with
ibuprofen as well as Tylenol and no relief with Zofran as well as Reglan.
Patient states his blood sugars have been fairly well-controlled throughout the day today. He has CMG that coordinates insulin delivery with his insulin pump.
He does admit to intermittent chills and aches throughout the day and notes rare intermittent dry cough. He denies shortness of breath, no palpitations, no neck nor back pain, no weakness. No rash. No close contacts with similar symptoms. No
recent travel nor recent antibiotic use.
Past History
Past History
ED Past Medical History: CHF, HTN, IDDM, Renal failure (Dialysis M-W-F) and Other (ESRD, PE, Contipation, ESRD, TR, pulmonary hypertension, congestive heart failure, etc. chronic abdominal pain/gastroparesis)
ED Past Surgical History: Appendectomy and Other (Left AV fistula, biliary drain removed)
Patient has exhibited threatening behavior?: No
PSI?: No
Social History
Tobacco: Smoker
Alcohol: None
Drug: None
Personal: Single
Living: with family
Employment: Other
Family History
Family History: Other
Phy Exam
Physical Exam
Physical Exam:
GENERAL: 33-year-old gentleman appears somewhat older than stated age, asleep upon entering exam room. Awakens easily, calm, easily communicative and appears in no acute distress. Low-grade temperature noted 99.4 �F.
EYE: pupils equal and reactive. anicteric
NECK: Supple, nontender, no meningismus, no significant adenopathy.
ENT: posterior pharynx is clear, oral mucosa is moist. TM clear b/l, nares patent.
CARDIAC: Regular rate and rhythm. no murmur.
LUNGS: no acute respiratory distress, decreased breath sounds right base otherwise clear to auscultation. No cough appreciated during exam.
ABDOMEN: Soft, mildly distended, mildly firm, moderate tenderness right lower quadrant without rebound or guarding, no cvat. normoactive BS.
NEUROLOGICAL: Alert and oriented x3, no focal neuro deficits.
SKIN: Warm and dry, normal color, scattered superficial dry ulcerations over bilateral lower extremities and right upper extremity. There is no surrounding erythema nor soft tissue swelling. No palpable tenderness.
MUSCULOSKELETAL: No C/C/E. peripheral pulses are full and equal b/l. No palpable tenderness. Left upper extremity aVF with positive thrill and bruit. Minimal local tenderness. No fluctuance. No erythema.
PSYCH: Mildly blunted affect. Easily communicative.
Course
Orders/Labs/Results
Orders:
Orders
02/25/24 21:35
EKG [Electrocardiogram (*1)] Urgent
Reason for Study: Chest Pain
EKG- Treatment ONCE
02/25/24 22:49
Urinalysis Reflex To Culture Urgent
02/25/24 22:51
Diphenhydramine [Benadryl] 50 mg IV NOW STA
HYDROmorphone [Dilaudid] 0.5 mg IV NOW STA
Prochlorperazine [Compazine] 10 mg IV NOW STA
02/25/24 23:05
Acetone [B-Hydroxybutyrate] Urgent
Alcohol Urgent
COVID-19 Antigen Urgent
Source: Nasal Swab
Complete Blood Count/With Diff Urgent
Comprehensive Metabolic Panel Urgent
Lactic Acid Q4H
Comment: CANCEL 2nd LACTIC ACID IF 1st LACTIC ACID IS LESS THAN 2
Lipase Urgent
Troponin I Urgent
pH - Venous Urgent
Blood Culture Q30M
VAISHALI Source: Blood/Venous
Specimen Description:
Influenza A+B Rapid Molecular Urgent
VAISHALI Source: Nasal Swab
Specimen Description:
02/25/24 23:14
Blood Culture Q30M
VAISHALI Source: Blood/Venous
Specimen Description:
02/25/24 23:22
Add On- LAB Urgent
Tests Added?: alcohol level
02/26/24 00:01
Acetaminophen 1000MG/100Ml [Ofirmev] 1,000 mg in 100 ml IV ONCE
Acetaminophen IV Indication:: ED Narcotic History-ONCE
02/26/24 00:02
Acetaminophen 1000MG/100Ml [Ofirmev] 1,000 mg in 100 ml .ROUTE .STK-MED
02/26/24 00:21
CR Obstruct Series W/pa Chest Urgent
Comment:
Reason For Exam: N/V abd pain, CP
02/26/24 01:02
Troponin I Urgent
02/26/24 03:00
Lactic Acid Q4H
Comment: CANCEL 2nd LACTIC ACID IF 1st LACTIC ACID IS LESS THAN 2
Abnormal Lab Results
02/25/24 02/26/24
23:05 01:02
RBC 3.68 L 10^6/uL
(4.70-6.10)
Hgb 11.7 L g/dL
(13.0-18.0)
Hct 36.4 L %
(39.0-52.0)
MCV 98.9 H fL
(80.0-94.0)
MCH 31.8 H pg
(27.0-31.0)
MCHC 32.1 L g/dL
(33.0-37.0)
RDW 16.8 H %
(11.5-14.5)
Sodium 134 L mmol/L
(135-145)
Potassium 5.6 H mmol/L
(3.5-5.1)
Chloride 96 L mmol/L
(98-107)
BUN 52 H mg/dl
(9-20)
Creatinine 6.0 H* mg/dL
(0.7-1.3)
Glucose 177 H mg/dl
(70-99)
Alkaline Phosphatase 159 H U/L
(38-126)
Troponin I 0.049 H* ng/ml 0.047 H* ng/ml
B-Hydroxybutyrate 1.56 H mmol/L
(0.02-0.27)
02/25/24 23:05
02/25/24 23:05
Vital Signs
Initial and Last Documented VS:
Initial Vital Signs
Temp Pulse Resp BP Pulse Ox
98.2 F 85 16 171/105 98
02/25/24 21:37 02/25/24 21:37 02/25/24 21:37 02/25/24 21:37 02/25/24 21:37
Last Documented Vital Signs
Temp Pulse Resp BP Pulse Ox
98.3 F 86 17 161/104 96
02/26/24 01:03 02/25/24 23:41 02/25/24 21:47 02/25/24 23:39 02/25/24 23:41
MDM/Problems Addressed
Differential Diagnosis Includes:
Concern for ACS, GERD, exacerbation of gastroparesis, CHF, progression of right pleural effusion. With low-grade fever concern for viral syndrome, sepsis, pneumonia, SBP, colitis, bowel obstruction.
Other consideration is recurrent DKA.
Patient states he is essentially an uric, does occasionally produce urine but has had no dysuria thus UTI is unlikely.
EKG is similar and unchanged from previous. There is note of mildly peaked T waves laterally concerning for an element of hyperkalemia. He missed his regular dialysis session today.
Significant concern for drug-seeking behavior/chronic pain syndrome. Patient again is asking for IV narcotic and has repeatedly left AMA when IV narcotics are withheld.
Lengthy discussion with the patient that I am offering a one-time dose of Dilaudid but going forward we will hold off on further narcotics. Currently agreeable.
Will trial IV Compazine and Benadryl for nausea. Thus far has had no nausea nor vomiting since arrival to the ED.
Clinically appears euvolemic. Oral mucosa is moist.
Moderately elevated blood pressure, similar elevations noted previously.
Will continue close monitoring, consider IV hydralazine if BP remains elevated.
Chronic conditions affecting care: DM, HTN, Kidney disease and Other (Chronic abdominal pain, chronic right pleural effusion)
*Radiology
Radiology exam reviewed: preliminary read by ED provider (Large right pleural effusion has progressed from previous film. No obstruction. No free air.)
*Pulse Oximetry
Patient hypoxic: no
*EKG
Interpreted by ED Provider?: Yes
Comparison EKG: no changes (Unchanged from multiple previous EKGs over the past 2 months)
Rate: normal
Rhythm: sinus
[place]: normal axis
Interval: long QT
QRS Pattern: normal QRS
Ischemia: T-wave inversion (Flipped T waves anteriorly and flattened T waves aVL, similar and unchanged from previous)
*Continuum Of Care Manager Interpretation
Rate: normal
Interpretation: normal
Rhythm: sinus
*Critical Care Note
Total Time (30-74mins, 75-104mins- exclusive of procedures): Not Applicable
Update Note
Update Note:
02/26/2024 0219 AM
Patient continues to appear comfortable, sleeps when undisturbed. He has continued to request pain medication but agreeable to IV Tylenol.
He is now afebrile.
Continues to complain of nausea but has had no vomiting since arrival to the ED.
Labs show normal white blood cell count, mild but stable anemia.
Minimally elevated potassium of 5.6 but normal CO2, chronically elevated BUN and creatinine consistent with chronic kidney disease.
Random glucose 177.
Acetone is elevated at 1.56 but normal venous pH and no anion gap on electrolytes thus DKA is less likely. I suspect elevated acetone is related to missing dialysis/chronic kidney disease.
Normal lactic acid is reassuring as well.
Troponin borderline elevated 0.049, has improved slightly to 0.047 on recheck. Currently denies chest pain.
Obstruction series shows large right pleural effusion that has progressed somewhat from previous film along with element of right middle lobe atelectasis. With low-grade fever and intermittent cough concern for potential underlying pneumonic
process.
Influenza and COVID are negative.
There is no evidence of obstruction, moderate stool throughout the colon but paucity of small bowel gas and no gastric distention noted.
I suspect abdominal pain is chronic constipation in nature. Multiple previous CTs of abdomen and pelvis have showed no acute intra-abdominal findings.
Patient has multiple risk factors for coronary artery disease and with borderline elevated troponin would recommend hospitalization to continue continue to trend troponin and continue close observation for return of chest pain.
Will initiate IV antibiotics for potential pneumonia.
I have again discussed that IV narcotics will be avoided especially in light of the chronic abdominal pain, chronic significant constipation.
Patient agreeable with this plan.
ED Attending Note
-
Portions of this chart may have been created with voice recognition software.� Occasional wrong word or��sound alike� substitutions may have occurred due to the inherent limitations of voice recognition software.
Discharge Plan
Departure
Patient Disposition: Admit
Date of Disposition: 02/26/24
Time of Disposition: 02:17
Admit to: Telemetry
Admit to doctor: graeme
Presentation/result/management discussed w/ accepting MD/DO: Hospitalist
Condition: Fair
Discharge Problem:
chest pain r/o ACS, Fever r/o sepsis, Progressive R pleural effusion, r/o PNA, Chronic abdominal pain, Accelerated essential hypertension
Prescriptions:
No Action
furosemide 40 MG tablet
40 mg PO BID
carvedilol [Coreg] 25 MG tablet
25 mg PO BID
amlodipine 10 MG tablet
10 mg PO DAILY
metoclopramide HCl [Reglan] 10 mg Tablet
10 mg PO TIDPRN PRN (Reason: nausea)
oxcarbazepine 150 mg tablet
150 mg PO DAILY
trazodone 50 mg Tablet
25 mg PO HS
Patient Own Insulin Pump
0 units SC .VIA PUMP
Rx Instructions:
patient using novolog
Referrals:
Casper Arroyo MD [Family Provider] -
Interventions
Interventions:
*Risk Screen - Suicide Last Done: 02/25/24 21:36
*General Assessment Last Done: 02/25/24 21:48
*Neglect/Abuse Screening Last Done: 02/25/24 21:36
*ED COVID-19 Vaccine History Last Done: 02/25/24 21:36
XQ-Cgvyfk-Muxqvkxffp Assessment Last Done: 02/25/24 23:17
Discharge Date and Time
Print Language: [place]
[2024-02-25 23:18] LABS: pH - Venous 7.34 (7.32-7.43)
[2024-02-25 23:19] LABS: % Basophils 0.8 % (0-2); % Eosinophils 1.8 % (0-6); % Immature Granulocytes 0.5 % (0-0.5); % Lymphocytes 23.2 % (20.5-51.1); % Monocytes 8.4 % (1.7-9.3); % Neutrophils 65.3 % (42.2-75.2); Absolute Basophils 0.1 10^3/uL (0-0.2); Absolute Eosinophils 0.1 10^3/uL (0-0.7); Absolute Lymphocytes 1.4 10^3/uL (1.2-3.4); Absolute Monocytes 0.5 10^3/uL (0.1-0.6); Absolute Neutrophils 4.1 10^3/uL (1.4-6.5); Hematocrit 36.4 % (39.0-52.0); Hemoglobin 11.7 g/dL (13.0-18.0); Mean Corp Hgb Conc. 32.1 g/dL (33.0-37.0); Mean Corpuscular Hgb 31.8 pg (27.0-31.0); Mean Corpuscular Volume 98.9 fL (80.0-94.0); Mean Platelet Volume 9.5 fL (7.4-10.4); Nucleated Red Blood Cells % 0 % (-); Platelet Count 239 10^3/uL (130-400); Red Blood Cell Count 3.68 10^6/uL (4.70-6.10); Red Cell Dist. Width 16.8 % (11.5-14.5); White Blood Cell Count 6.2 10^3/uL (4.8-10.8)
[2024-02-25 23:30] LABS: Lactic Acid 1.7 mmol/L (0.7-2.0)
[2024-02-25 23:38] LABS: COVID-19 Antigen Negative (Negative)
[2024-02-25 23:39] VITALS: BP 161/104
[2024-02-25 23:44] LABS: ALT (SGPT) 43 U/L (0-50); AST (SGOT) 56 U/L (17-59); Albumin 3.9 g/dl (3.5-5.0); Alkaline Phosphatase 159 U/L (38-126); B-Hydroxybutyrate 1.56 mmol/L (0.02-0.27); Blood Urea Nitrogen 52 mg/dl (9-20); Calcium 8.6 mg/dl (8.4-10.2); Carbon Dioxide 23 mmol/L (22-30); Chloride 96 mmol/L (98-107); Estimated Creatinine Clearance 16 ml/min; Glucose 177 mg/dl (70-99); Lipase 29 U/L (23-300); Potassium 5.6 mmol/L (3.5-5.1); Sodium 134 mmol/L (135-145); Total Bilirubin 0.7 mg/dl (0.2-1.3); Total Protein 6.7 g/dl (6.3-8.2); eGFR 11.94
[2024-02-25 23:47] LABS: Troponin I 0.049 ng/ml
[2024-02-26] MEDS: OFIRMEV 100 IV (00:05)
[2024-02-26 01:27] LABS: Alcohol None Detected
[2024-02-26 01:41] LABS: Troponin I 0.047 ng/ml
[2024-02-26] MEDS: REGLAN 5 MG IV ×2 (02:21→09:33)
[2024-02-26] MEDS: ZOSYN 50 IV (02:21)
[2024-02-26] MEDS: BENADRYL 12.5 MG IV (02:21)
[2024-02-26 02:22] VITALS: BP 151/97
--- NOTE | 2024-02-26 02:44 | HPS.HSE ---
Family Physician
-
Family Physician: Casper Arroyo
Chief Complaint
-
abdominal pain
History of Present Illness
33-year-old male past medical history of type 1 diabetes on insulin pump, diabetic nephropathy, ESRD on hemodialysis M, W, F, chronic right-sided pleural effusion, chronic abdominal pain secondary to gastroparesis, hypertension, severe pulmonary
hypertension, alcohol use disorder, anxiety/depression, presenting with abdominal pain. Patient has had multiple frequent admissions recently due to abdominal pain with repeated workup revealing no acute findings. He was also recently admitted for
DKA from February 15 to February 18 thought to be related to insulin pump malfunction. During many of the hospitalizations he has received IV Dilaudid but when they are discontinued he signs out AMA.
Patient again arrives for similar complaint of chest pain, right lower quadrant abdominal pain, nausea and vomiting. No relief with ibuprofen and Tylenol and Zofran and Reglan. Patient states her blood sugars have been fairly well-controlled
throughout the day today. He did have intermittent chills and aches throughout the day and rare intermittent dry cough. He does have shortness of breath that is persistent. He did have an episode of diarrhea this morning which is since resolved.
He signed out AMA when he arrived earlier this morning when IV narcotics were not given.
He did miss his dialysis session today which was rescheduled for tomorrow morning. He has mild bilateral lower extremity with a stable and unchanged.
Medical History
Past Medical History
Past Medical History: Reports Other (type 1 diabetes on insulin pump, diabetic nephropathy, ESRD on hemodialysis M, W, F, chronic right-sided pleural effusion, chronic abdominal pain secondary to gastroparesis, hypertension, severe pulmonary
hypertension, alcohol use disorder, anxiety/depression)
Past Surgical History: Reports None
Social History
Tobacco: Smoker
Alcohol: None
Drug: None
Family History
Family History: Not pertinent
Allergies / Home Medications
Allergies reflects when Allergies were last updated in [facility].
Home Medications with original date entered in [facility]
Allergy/Medication List:
Allergies
Allergy/AdvReac Type Severity Reaction Status Date / Time
shellfish derived Allergy Hives Verified 02/25/24 21:36
Home Medications
amlodipine 10 mg tablet 10 mg PO DAILY Blood pressure 04/22/21
carvedilol 25 mg tablet (Coreg) 25 mg PO BID Blood pressure 04/22/21
furosemide 40 mg tablet 40 mg PO BID Fluid retention/Swelling 04/22/21
metoclopramide HCl 10 mg tablet (Reglan) 10 mg PO TIDPRN PRN nausea 04/07/23
oxcarbazepine 150 mg tablet 150 mg PO DAILY Mental Health/Anxiety 07/24/23
trazodone 50 mg tablet 25 mg PO HS sleep 01/05/24
Patient Own Insulin Pump 0 units SC .VIA PUMP diabetes 02/13/24
Review of Systems
-
History Source: Patient
A 12 point ROS was completed and negative except as noted: Yes
Constitutional: Reports No Symptoms
EENT: Reports No Symptoms
Respiratory: Reports See HPI
Cardiac: Reports See HPI
Abdomen/GI: Reports No Symptoms
: Reports No Symptoms
Musculoskeletal: Reports No Symptoms
Skin: Reports No Symptoms
Neurological: Reports No Symptoms
Endocrine: Reports No Symptoms
Hematologic/Lymphatic: Reports No Symptoms
Psych: Reports No Symptoms
Physical Exam
Vital Signs
Vital Signs
Temp Pulse Resp BP Pulse Ox
98.3 F 83 17 151/97 94
02/26/24 01:03 02/26/24 02:24 02/25/24 21:47 02/26/24 02:22 02/26/24 02:24
Physical Exam
General: Well Developed, Well Nourished and No Apparent Distress
HEENT: NormoCephalic, Moist mucous membranes and Atraumatic
Respiratory: Clear
Cardiac: S1/S2 and Regular Rhythm; No Murmur or Rub
GI: Soft, Non Distended, Normal Bowel Sounds and Tender (RLQ ); No Organomegaly
Rectal: Deferred by Provider
Musculoskeletal: No Clubbing, No Cyanosis and No Edema
Skin: No Rash
Neuro: Nonfocal/grossly intact
Laboratory Results
-
02/25/24 23:05
02/25/24 23:05
Laboratory Results
Lactic Acid Cancelled 02/26/24 03:00
Total Bilirubin 0.7 mg/dl (0.2-1.3) 02/25/24 23:05
AST 56 U/L (17-59) 02/25/24 23:05
ALT 43 U/L (0-50) 02/25/24 23:05
Alkaline Phosphatase 159 U/L (38-126) H 02/25/24 23:05
Troponin I 0.047 ng/ml H* 02/26/24 01:02
Lipase 29 U/L (23-300) 02/25/24 23:05
Data Reviewed
-
Lab Data: Labs Reviewed by me
Old Records: Reviewed
Impression/Plan
-
IMPRESSION:
PLAN:
# Recurrent abdominal pain/nausea and vomiting secondary to gastroparesis, constipation possibly contributing
-ER gave dose of Dilaudid, patient not to receive any further Dilaudid due to concern for Dilaudid seeking behavior
-Continue Reglan, Benadryl
-Continue PPI
-Recent CT abdomen on 02/21 shows no acute pathology apart from large stool burden
-Diarrhea resolved, will need to start bowel regimen tomorrow if no further diarrhea
-Abdominal xray pending
# Recurrent right pleural effusion
-Fluid appears to be reaccumulated
-Status post thoracentesis on 02/16 which was transudative
-IR for thoracentesis
-Patient was given Zosyn here for potential right-sided pneumonia and concern for fever however looking at records his temperature was only 99.4 and no other evidence of sepsis. Discontinue further antibiotic
# Non-OH troponin elevation
-EKG shows normal sinus rhythm
-Troponin 0.049, trending down
-Chest pain improved
#ESRD on hemodialysis M, W,
# Hyperkalemia secondary to missed dialysis
-Missed dialysis on Friday
-Nephrology consulted for dialysis
-Continue Lasix
Type 1 diabetes with insulin pump
-Continue insulin pump
Chronic anemia of renal disease
-Hemoglobin stable
Essential hypertension
-Continue amlodipine
-Continue Coreg
Severe pulmonary hypertension
Anxiety/depression
-Continue oxcarbazepine, trazodone
Smoker
-Smokes half pack of cigarettes per day
Full code
DVT prophylaxis�heparin
Renal diet
[2024-02-26 03:00] VITALS: BP 135/92
[2024-02-26 06:04] VITALS: BP 148/82
[2024-02-26 06:12] LABS: % Basophils 0.9 % (0-2); % Eosinophils 1.8 % (0-6); % Immature Granulocytes 0.4 % (0-0.5); % Lymphocytes 20.9 % (20.5-51.1); % Monocytes 9.2 % (1.7-9.3); % Neutrophils 66.8 % (42.2-75.2); Absolute Basophils 0.1 10^3/uL (0-0.2); Absolute Eosinophils 0.1 10^3/uL (0-0.7); Absolute Lymphocytes 1.4 10^3/uL (1.2-3.4); Absolute Monocytes 0.6 10^3/uL (0.1-0.6); Absolute Neutrophils 4.5 10^3/uL (1.4-6.5); Hematocrit 32.6 % (39.0-52.0); Mean Corp Hgb Conc. 33.7 g/dL (33.0-37.0); Mean Corpuscular Hgb 31.8 pg (27.0-31.0); Mean Corpuscular Volume 94.2 fL (80.0-94.0); Mean Platelet Volume 9.4 fL (7.4-10.4); Nucleated Red Blood Cells % 0 % (-); Platelet Count 241 10^3/uL (130-400); Red Blood Cell Count 3.46 10^6/uL (4.70-6.10); Red Cell Dist. Width 16.8 % (11.5-14.5); White Blood Cell Count 6.8 10^3/uL (4.8-10.8)
[2024-02-26 08:30] VITALS: BP 150/106
[2024-02-26] MEDS: NORVASC 10 MG PO (08:33)
[2024-02-26] MEDS: COREG 25 MG PO (08:33)
[2024-02-26] MEDS: LASIX 40 MG PO (08:33)
[2024-02-26] MEDS: TRILEPTAL 150 MG PO (09:32)
[2024-02-26] MEDS: BENADRYL 25 MG IV (09:33)
--- NOTE | 2024-02-26 09:57 | PTCARENOTE ---
Pt says he wants to sign out AMA. Says he can go to his dialysis center today. Wants to leave immediately but convinced to wait to speak w/ hospitalist.
--- NOTE | 2024-02-26 11:03 | W.PN.UPDATE ---
Update Note
Progress Note Update
Patient was adamant about leaving the hospital this morning and did not want any more medical care or examinations. I explained to him all the risks of leaving; patient understood and acknowledged all the risks, signed the Against Medical Advice
form, and left against medical advice.
--- NOTE | 2024-02-29 09:08 | W.DCSUMMARY ---
Discharge Summary
Discharge Data
Date of Admission: 02/26/24
Date of Discharge: 02/26/24
Total time spent discharging patient (in min): 32
-
Pending Results: Yes
Additional Pending Results:
Microbiology - blood culture results from hospitalization
Hospital Course
33 year old male with past medical history of type 1 diabetes on insulin pump, diabetic nephropathy, end stage renal disease on hemodialysis M, W, F, chronic right-sided pleural effusion, chronic abdominal pain secondary to gastroparesis,
hypertension, severe pulmonary hypertension, alcohol use disorder, anxiety/depression, presented with abdominal pain. Patient was noted to have had multiple frequent admissions recently due to abdominal pain with repeated workup revealing no acute
findings. He was also recently admitted for diabetic ketoacidosis from February 16, 2024 to February 19, 2024 -- thought to be related to insulin pump malfunction. It was noted that during many of the hospitalizations he received intravenous Dilaudid but
when they are discontinued he signs out against medical advice.
Patient this time again arrived for similar complaint of chest pain, right lower quadrant abdominal pain, nausea and vomiting and an episode of diarrhea earlier on the day of admission. He also reported chills, aches and cough as well as persistent
shortness of breath.
Patient's evaluation and treatment were in progress when he decided that he wanted to leave against medical advice. It was explained to the patient why he needed to stay in the hospital, and the risk of leaving, he understood the risks, but he was
adamant about leaving against medical advice and he left against medical advice on February 26, 2024.
Discharge Plan
-
Patient Disposition: Against Medical Advice
Prescriptions:
No Action
furosemide 40 MG tablet
40 mg PO BID
carvedilol [Coreg] 25 MG tablet
25 mg PO BID
amlodipine 10 MG tablet
10 mg PO DAILY
metoclopramide HCl [Reglan] 10 mg Tablet
10 mg PO TIDPRN PRN (Reason: nausea)
oxcarbazepine 150 mg tablet
150 mg PO DAILYPRN PRN (Reason: mental health)
trazodone 50 mg Tablet
25 mg PO HSPRN PRN (Reason: sleep)
Patient Own Insulin Pump
0 units SC .VIA PUMP
Rx Instructions:
patient using novolog
Discharge Date and Time
Discharge Date/Time: 02/26/24 10:30
Print Language: TURKMEN
== END 2024-02-26 10:30 | disposition left against medical advice (07) ==
LOC: ED 03:23
PROVIDERS: ADMITTING PHYSICIAN Hospitalist; ATTENDING PHYSICIAN Hospitalist; EMERGENCY PHYSICIAN Emergency Medicine; FAMILY PHYSICIAN Internal Medicine
DX: R10.9 Unspecified abdominal pain (principal); Z53.29 Procedure and treatment not carried out because of patient's decision for other reasons; E10.22 Type 1 diabetes mellitus with diabetic chronic kidney disease; N18.6 End stage renal disease; E10.43 Type 1 diabetes mellitus with diabetic autonomic (poly)neuropathy; K31.84 Gastroparesis; J90 Pleural effusion, not elsewhere classified; G89.29 Other chronic pain; I13.2 Hypertensive heart and chronic kidney disease with heart failure and with stage 5 chronic kidney disease, or end stage renal disease; I50.9 Heart failure, unspecified; I27.20 Pulmonary hypertension, unspecified; I07.1 Rheumatic tricuspid insufficiency; F17.210 Nicotine dependence, cigarettes, uncomplicated; F32.A Depression, unspecified; F41.9 Anxiety disorder, unspecified; D63.1 Anemia in chronic kidney disease; E87.5 Hyperkalemia; F10.20 Alcohol dependence, uncomplicated; K59.00 Constipation, unspecified; Z11.52 Encounter for screening for COVID-19; Z79.4 Long term (current) use of insulin; Z79.899 Other long term (current) drug therapy; Z91.158 Patient's noncompliance with renal dialysis for other reason; Z96.41 Presence of insulin pump (external) (internal); Z99.2 Dependence on renal dialysis
CPT/HCPCS: 74022; 80053; 82010; 82077; 82800; 83605; 83690; 84484; 85025; 87040; 87502; 87811; 93005; 96365; 96375; 96376; 99285; G0378

== ENCOUNTER 2024-03-03 05:59 | Emergency (ER) | payer OTHER, SELFPAY ==
[2024-03-03 06:10] VITALS: BP 193/120
[2024-03-03 06:35] VITALS: BP 180/98
--- NOTE | 2024-03-03 06:43 | ED.GENMED ---
History of Present Illness
General
Chief Complaint: Abdominal Pain
Source: patient
Time Seen by Provider: 03/03/24 06:29
Travel History
Have you had any contact with someone who has COVID-19?: No
Do you have any symptoms of coronavirus? Fever > 100 degrees, chills, cough, shortness of breath, sore throat, loss of taste or smell, muscle aches, or headache?: No
History of Present Illness
History of Present Illness:
34-year-old male presents to the emergency room complaining of abdominal pain. Patient does have chronic abdominal pain but states this is different because he has testicular pain associated with it. He also had some burning with urination. No
fever. Patient last seen in the emergency room on February 24. He was admitted but promptly signed out AGAINST MEDICAL ADVICE. Patient states that he did this because he was feeling better after nausea medicine. Patient has end-stage renal disease.
He receives dialysis Friday. He was actually due for dialysis today but has come here for his abdominal pain rather than go to dialysis. No vomiting. Last bowel movement was yesterday.
Past History
Past History
ED Past Medical History: CHF, HTN, IDDM, Renal failure (Dialysis M-W-F) and Other (ESRD, PE, Contipation, ESRD, TR, pulmonary hypertension, congestive heart failure, etc. chronic abdominal pain/gastroparesis)
ED Past Surgical History: Appendectomy and Other (Left AV fistula, biliary drain removed)
Patient has exhibited threatening behavior?: No
PSI?: No
Social History
Tobacco: Smoker
Alcohol: None
Drug: None
Personal: Single
Living: with family
Employment: Other
Family History
Family History: Other
Phy Exam
Physical Exam
Physical Exam:
General: Awake, Alert, Oriented X3. No acute distress, appears chronically ill
Vitals: unremarkable
Head: Atraumatic
Eyes: Pupils equal, EOMI
Throat: Airway intact, no exudates
Neck: Trachea midline
Lungs: Clear and equal b/l
Heart: Regular rate, no murmurs
Abd: Soft, mild, diffuse abdominal pain, no rebound, no point tenderness, No pulsatile mass
Neuro: Nonfocal
Skin: Warm, dry, no rash
Extremities: pulses equal b/l, no edema, multiple wounds from excoriating his skin
Course
Orders/Labs/Results
Orders:
Orders
03/03/24 06:41
Urinalysis Reflex To Culture Urgent
Acetaminophen 1000MG/100Ml [Ofirmev] 1,000 mg in 100 ml IV ONCE
Acetaminophen IV Indication:: ED Narcotic History-ONCE
Ondansetron Injectable [Zofran] 4 mg IV NOW STA
Oxycodone [Roxicodone] 5 mg PO NOW STA
03/03/24 06:43
US Scrotum Urgent
Comment:
Reason For Exam: Testicular pain
03/03/24 06:49
Diphenhydramine [Benadryl] 25 mg IV NOW STA
Prochlorperazine [Compazine] 10 mg IV NOW STA
03/03/24 07:04
Basic Metabolic Panel Urgent
Complete Blood Count/With Diff Urgent
Abnormal Lab Results
03/03/24
07:04
RBC 3.70 L 10^6/uL
(4.70-6.10)
Hgb 11.8 L g/dL
(13.0-18.0)
Hct 34.9 L %
(39.0-52.0)
MCV 94.3 H fL
(80.0-94.0)
MCH 31.9 H pg
(27.0-31.0)
RDW 17.2 H %
(11.5-14.5)
BUN 38 H mg/dl
(9-20)
Creatinine 6.4 H* mg/dL
(0.7-1.3)
03/03/24 07:04
03/03/24 07:04
Vital Signs
Initial and Last Documented VS:
Initial Vital Signs
Temp Pulse Resp BP Pulse Ox
98.1 F 89 20 193/120 97
03/03/24 06:10 03/03/24 06:10 03/03/24 06:10 03/03/24 06:10 03/03/24 06:10
Last Documented Vital Signs
Temp Pulse Resp BP Pulse Ox
98.1 F 89 20 180/98 97
03/03/24 06:10 03/03/24 06:10 03/03/24 06:10 03/03/24 06:35 03/03/24 06:10
MDM/Problems Addressed
Differential Diagnosis Includes:
Gastroparesis, urinary tract infection, epididymal orchitis, drug seeking behavior
MDM/Problems Addressed:
Patient presents with abdominal pain similar to many previous visits. He is requesting IV pain medicine and nausea medicine. Discussed with the patient that I am more than happy to do appropriate testing to exclude any serious medical condition
but given the pattern of coming to the emergency room getting pain medicine and signing out AGAINST MEDICAL ADVICE and is highly concerning. We will provide antiemetics and an oral dose of oxycodone As well as IV Tylenol but no IV opiates.
Labs are as expected given ESRD. U/S shows no acute abnormality. Pt expressed to nursing he wanted to leave prior to the report from u/s and labs results and returned which he did.
*Critical Care Note
Total Time (30-74mins, 75-104mins- exclusive of procedures): Not Applicable
ED Attending Note
-
Portions of this chart may have been created with voice recognition software.� Occasional wrong word or��sound alike� substitutions may have occurred due to the inherent limitations of voice recognition software.
Discharge Plan
Departure
Patient Disposition: Against Medical Advice
Discharge Problem:
Abdominal pain
Prescriptions:
No Action
furosemide 40 MG tablet
40 mg PO BID
carvedilol [Coreg] 25 MG tablet
25 mg PO BID
amlodipine 10 MG tablet
10 mg PO DAILY
metoclopramide HCl [Reglan] 10 mg Tablet
10 mg PO TIDPRN PRN (Reason: nausea)
oxcarbazepine 150 mg tablet
150 mg PO DAILYPRN PRN (Reason: mental health)
trazodone 50 mg Tablet
25 mg PO HSPRN PRN (Reason: sleep)
Patient Own Insulin Pump
0 units SC .VIA PUMP
Rx Instructions:
patient using novolog
Referrals:
Casper Arroyo MD [Family Provider] -
Interventions
Interventions:
*Risk Screen - Suicide Last Done: 03/03/24 06:10
*General Assessment Last Done: 03/03/24 06:10
*Neglect/Abuse Screening Last Done: 03/03/24 06:10
ED- Fall Risk Assessment Last Done: 03/03/24 06:10
*ED COVID-19 Vaccine History Last Done: 03/03/24 06:10
*Nursing Disposition Last Done: 03/03/24 07:37
CP-Ilsiwk-Nnojgl[place]uu Assessment Last Done: 03/03/24 07:11
ED-Male Genitourinary Assessment Last Done: 03/03/24 07:11
Discharge Date and Time
Print Language: UPPER SORBIAN
[2024-03-03] MEDS: ROXICODONE 5 MG PO (07:06)
[2024-03-03] MEDS: COMPAZINE 10 MG IV (07:06)
[2024-03-03] MEDS: BENADRYL 25 MG IV (07:06)
[2024-03-03 07:18] LABS: % Basophils 1.1 % (0-2); % Eosinophils 1.9 % (0-6); % Immature Granulocytes 0.5 % (0-0.5); % Lymphocytes 24.3 % (20.5-51.1); % Monocytes 6.6 % (1.7-9.3); % Neutrophils 65.6 % (42.2-75.2); Absolute Basophils 0.1 10^3/uL (0-0.2); Absolute Eosinophils 0.1 10^3/uL (0-0.7); Absolute Lymphocytes 1.6 10^3/uL (1.2-3.4); Absolute Monocytes 0.4 10^3/uL (0.1-0.6); Absolute Neutrophils 4.2 10^3/uL (1.4-6.5); Hematocrit 34.9 % (39.0-52.0); Hemoglobin 11.8 g/dL (13.0-18.0); Mean Corp Hgb Conc. 33.8 g/dL (33.0-37.0); Mean Corpuscular Hgb 31.9 pg (27.0-31.0); Mean Corpuscular Volume 94.3 fL (80.0-94.0); Mean Platelet Volume 9.3 fL (7.4-10.4); Nucleated Red Blood Cells % 0 % (-); Platelet Count 264 10^3/uL (130-400); Red Cell Dist. Width 17.2 % (11.5-14.5); White Blood Cell Count 6.4 10^3/uL (4.8-10.8)
[2024-03-03 07:37] LABS: Blood Urea Nitrogen 38 mg/dl (9-20); Calcium 9.3 mg/dl (8.4-10.2); Carbon Dioxide 26 mmol/L (22-30); Chloride 98 mmol/L (98-107); Glucose 99 mg/dl (70-99); Potassium 5.1 mmol/L (3.5-5.1); Sodium 135 mmol/L (135-145); eGFR 11.05
== END 2024-03-03 07:37 | disposition left against medical advice (07) ==
LOC: EMR 05:59
PROVIDERS: EMERGENCY PHYSICIAN Emergency Medicine; FAMILY PHYSICIAN Internal Medicine
DX: R10.84 Generalized abdominal pain (principal); R30.9 Painful micturition, unspecified; F17.200 Nicotine dependence, unspecified, uncomplicated; N18.6 End stage renal disease; Z99.2 Dependence on renal dialysis
CPT/HCPCS: 99284; 96374; 96375; 76870; 80048; 85025; 93976

== ENCOUNTER 2024-03-05 03:29 | Emergency (ER) | payer OTHER, SELFPAY ==
[2024-03-05] VITALS (15 sets, daily range): BP systolic 105–171; BP diastolic 72–114; BMI 22.5
--- NOTE | 2024-03-05 04:22 | ED.GENMED ---
History of Present Illness
<MARCEL Lobato - Last Filed: 03/05/24 06:48>
General
Chief Complaint: Abdominal Symptoms
Source: patient
Exam Limitations: none
Time Seen by Provider: 03/05/24 04:11
Nursing documentation reviewed up to this point in time: agreed with
Travel History
Have you had any contact with someone who has COVID-19?: No
Do you have any symptoms of coronavirus? Fever > 100 degrees, chills, cough, shortness of breath, sore throat, loss of taste or smell, muscle aches, or headache?: No
History of Present Illness
History of Present Illness:
This is a 33 year old male with history of DM, ESRD, chronic right sided pleural effusion, HTN, alcohol use disorder, anxiety/depression who presents to the ED with complaint of lower abdominal pain x1 day. He reports pain has been chronic and
constant. He has associated nausea and vomiting. He reports vomiting every hour for the past day. He took Reglan that has not provided any relief. He denies any bloody emesis/stools, diarrhea, chest pain, shortness of breath, fever, headaches. He
has ESRD on hemodialysis (MWF). He was seen in the ER on 03/03/2024 for similar symptoms, but signed out AMA. During this visit, labs and imaging were obtained. Labs were as expected given ESRD and abdominal ultrasound did not show any acute
abnormality.
Past History
<MARCEL Lobato - Last Filed: 03/05/24 06:48>
Past History
ED Past Medical History: CHF, HTN, IDDM, Renal failure (Dialysis M-W-F) and Other (ESRD, PE, Contipation, ESRD, TR, pulmonary hypertension, congestive heart failure, etc. chronic abdominal pain/gastroparesis)
ED Past Surgical History: Appendectomy and Other (Left AV fistula, biliary drain removed)
Patient has exhibited threatening behavior?: No
PSI?: No
Social History
Tobacco: Smoker
Alcohol: None
Drug: None
Personal: Single
Living: with family
Employment: Other
Family History
Family History: Other
Review of Systems
<ST Luis AlfredoAK - Last Filed: 03/05/24 06:48>
Review of Systems
Allergies reviewed?: Yes
All Other Systems: Not applicable
Constitutional: Reports no symptoms
EENT: Reports no symptoms
Respiratory: Reports no symptoms
Cardiac: Reports no symptoms
ABD/GI: Reports abdominal pain, nausea and vomiting
: Reports no symptoms
Musculoskeletal: Reports no symptoms
Skin: Reports no symptoms
Neurological: Reports no symptoms
Endocrine: Reports no symptoms
Hematologic/Lymphatic: Reports no symptoms
Psychiatric: Reports no symptoms
Phy Exam
<Laura Wong [facility] - Last Filed: 03/05/24 06:48>
General Physical Exam
General Presentation: well appearing and no apparent distress
General Skin: warm and dry
General Habitus: normal
General Mental: alert
General Hydration: appears well hydrated
ENT Exam
ENT Exam: EOMI, pharynx normal, neck supple and normocephalic
Eye Exam
Eye Exam: PERRL, cornea clear and conjunctiva normal
Cardiovascular Exam
Cardiovascular Exam: regular rate/rhythm, no edema, no murmur and normal peripheral pulses
Pulmonary Exam
Pulmonary Exam: lungs clear, no respiratory distress, no rales, no crackles, no rhonchi, no stridor, no wheezing and no cough
Gastrointestinal Exam
Gastrointestinal Exam: normal bowel sounds, soft, no organomegaly, no pulsatile mass and non distended
Palpation: generalized: Mild tenderness
Neurological Exam
Neurological Exam: alert, oriented x3, no motor deficits and speech normal
Musculoskeletal Exam
Musculoskeletal Exam: full ROM and no edema
Skin Exam
Skin Exam: normal color, warm/dry, no rash and no petechia
Psychiatric Exam
Psychiatric Exam: normal mood/affect
Course
<MARCEL Lobato - Last Filed: 03/05/24 06:48>
Orders/Labs/Results
Orders:
Orders
03/05/24 05:02
Bedside Glucose- Treatment ONCE
IV Insert/Care/Rem.- Treatment PRN
0.9% Sodium Chloride 1000 ml [Nss] 1,000 ml IV BOLUS
0.9% Sodium Chloride 1000 ml [Nss] 1,000 ml IV BOLUS
03/05/24 05:23
Complete Blood Count/With Diff Urgent
03/05/24 05:25
Ondansetron Injectable [Zofran] 4 mg .ROUTE .STK-MED ONE
03/05/24 05:26
Ondansetron Injectable [Zofran] 4 mg IV NOW STA
03/05/24 05:47
HYDROmorphone [Dilaudid] 0.5 mg IM NOW STA
03/05/24 05:53
B-Hydroxybutyrate Urgent
Basic Metabolic Panel Urgent
Comment: REDRAW
03/05/24 07:48
NEPHROLOGY CONSULT Routine
Consulting Provider: Kulwinder Vigil V.
Was physician already notified: Yes
Reason for consult: ESRD
03/05/24 09:02
Heparin 500 units IV HD-ONCE ONE
Heparin 500 units IV HD-ONCE ONE
Mannitol 12.5 grams IV HD-Q1HPRN PRN
Hemodialysis treatment As Directed
Treatment date:: 03/05/24
Treatment type: Hemodialysis
Ultrafiltration (kg): 2.5-3
Treatment time (duration): 3 hours 30 minutes
Use dialysis access:: AVF
Dialyzer:: Optiflux 160
Blood flow rate minimum: 350
Blood flow rate maximum: 400
Dialysis flow rate: 600 mL/min
Dialysate temperature: 37 degrees Celsius
Sodium (Na): 137
Potassium (K): 2
Calcium (Ca): 2.5
Bicarbonate (HCO3): 35
Abnormal Lab Results
03/05/24 03/05/24 03/05/24
05:23 05:29 05:53
RBC 3.64 L 10^6/uL
(4.70-6.10)
Hgb 11.6 L g/dL
(13.0-18.0)
Hct 34.5 L %
(39.0-52.0)
MCV 94.8 H fL
(80.0-94.0)
MCH 31.9 H pg
(27.0-31.0)
RDW 17.4 H %
(11.5-14.5)
BUN 37 H mg/dl
(9-20)
Creatinine 5.7 H* mg/dL
(0.7-1.3)
Glucose 132 H mg/dl
(70-99)
POC Glucose 136 H mg/dl
(70-99)
03/05/24 03/05/24
08:31 12:15
RBC
Hgb
Hct
MCV
MCH
RDW
BUN
Creatinine
Glucose
POC Glucose 136 H mg/dl 122 H mg/dl
(70-99) (70-99)
03/05/24 05:23
03/05/24 09:15
Vital Signs
Initial and Last Documented VS:
Initial Vital Signs
Temp Pulse Resp BP Pulse Ox
98.0 F 89 20 171/109 95
03/05/24 03:37 03/05/24 03:37 03/05/24 03:37 03/05/24 03:37 03/05/24 03:37
Last Documented Vital Signs
Temp Pulse Resp BP Pulse Ox
98.0 F 97 16 162/114 99
03/05/24 03:37 03/05/24 06:50 03/05/24 06:50 03/05/24 14:45 03/05/24 06:50
<Jaime Burdick DO - Last Filed: 03/07/24 23:59>
Orders/Labs/Results
Orders:
Orders
03/05/24 05:02
Bedside Glucose- Treatment ONCE
IV Insert/Care/Rem.- Treatment PRN
0.9% Sodium Chloride 1000 ml [Nss] 1,000 ml IV BOLUS
0.9% Sodium Chloride 1000 ml [Nss] 1,000 ml IV BOLUS
03/05/24 05:23
Complete Blood Count/With Diff Urgent
03/05/24 05:25
Ondansetron Injectable [Zofran] 4 mg .ROUTE .STK-MED ONE
03/05/24 05:26
Ondansetron Injectable [Zofran] 4 mg IV NOW STA
03/05/24 05:47
HYDROmorphone [Dilaudid] 0.5 mg IM NOW STA
03/05/24 05:53
B-Hydroxybutyrate Urgent
Basic Metabolic Panel Urgent
Comment: REDRAW
03/05/24 07:48
NEPHROLOGY CONSULT Routine
Consulting Provider: Kulwinder Vigil V.
Was physician already notified: Yes
Reason for consult: ESRD
03/05/24 09:02
Heparin 500 units IV HD-ONCE ONE
Heparin 500 units IV HD-ONCE ONE
Mannitol 12.5 grams IV HD-Q1HPRN PRN
Hemodialysis treatment As Directed
Treatment date:: 03/05/24
Treatment type: Hemodialysis
Ultrafiltration (kg): 2.5-3
Treatment time (duration): 3 hours 30 minutes
Use dialysis access:: AVF
Dialyzer:: Optiflux 160
Blood flow rate minimum: 350
Blood flow rate maximum: 400
Dialysis flow rate: 600 mL/min
Dialysate temperature: 37 degrees Celsius
Sodium (Na): 137
Potassium (K): 2
Calcium (Ca): 2.5
Bicarbonate (HCO3): 35
Abnormal Lab Results
03/05/24 03/05/24 03/05/24
05:23 05:29 05:53
RBC 3.64 L 10^6/uL
(4.70-6.10)
Hgb 11.6 L g/dL
(13.0-18.0)
Hct 34.5 L %
(39.0-52.0)
MCV 94.8 H fL
(80.0-94.0)
MCH 31.9 H pg
(27.0-31.0)
RDW 17.4 H %
(11.5-14.5)
BUN 37 H mg/dl
(9-20)
Creatinine 5.7 H* mg/dL
(0.7-1.3)
Glucose 132 H mg/dl
(70-99)
POC Glucose 136 H mg/dl
(70-99)
03/05/24 03/05/24
08:31 12:15
RBC
Hgb
Hct
MCV
MCH
RDW
BUN
Creatinine
Glucose
POC Glucose 136 H mg/dl 122 H mg/dl
(70-99) (70-99)
03/05/24 05:23
03/05/24 09:15
Vital Signs
Initial and Last Documented VS:
Initial Vital Signs
Temp Pulse Resp BP Pulse Ox
98.0 F 89 20 171/109 95
03/05/24 03:37 03/05/24 03:37 03/05/24 03:37 03/05/24 03:37 03/05/24 03:37
Last Documented Vital Signs
Temp Pulse Resp BP Pulse Ox
98.0 F 97 16 162/114 99
03/05/24 03:37 03/05/24 06:50 03/05/24 06:50 03/05/24 14:45 03/05/24 06:50
<Juancarlos Rod, DO - Last Filed: 03/05/24 12:47>
Orders/Labs/Results
Orders:
Orders
03/05/24 05:02
Bedside Glucose- Treatment ONCE
IV Insert/Care/Rem.- Treatment PRN
0.9% Sodium Chloride 1000 ml [Nss] 1,000 ml IV BOLUS
0.9% Sodium Chloride 1000 ml [Nss] 1,000 ml IV BOLUS
03/05/24 05:23
Complete Blood Count/With Diff Urgent
03/05/24 05:25
Ondansetron Injectable [Zofran] 4 mg .ROUTE .STK-MED ONE
03/05/24 05:26
Ondansetron Injectable [Zofran] 4 mg IV NOW STA
03/05/24 05:47
HYDROmorphone [Dilaudid] 0.5 mg IM NOW STA
03/05/24 05:53
B-Hydroxybutyrate Urgent
Basic Metabolic Panel Urgent
Comment: REDRAW
03/05/24 07:48
NEPHROLOGY CONSULT Routine
Consulting Provider: Kulwinder Vigil V.
Was physician already notified: Yes
Reason for consult: ESRD
03/05/24 09:02
Heparin 500 units IV HD-ONCE ONE
Heparin 500 units IV HD-ONCE ONE
Mannitol 12.5 grams IV HD-Q1HPRN PRN
Hemodialysis treatment As Directed
Treatment date:: 03/05/24
Treatment type: Hemodialysis
Ultrafiltration (kg): 2.5-3
Treatment time (duration): 3 hours 30 minutes
Use dialysis access:: AVF
Dialyzer:: Optiflux 160
Blood flow rate minimum: 350
Blood flow rate maximum: 400
Dialysis flow rate: 600 mL/min
Dialysate temperature: 37 degrees Celsius
Sodium (Na): 137
Potassium (K): 2
Calcium (Ca): 2.5
Bicarbonate (HCO3): 35
Abnormal Lab Results
03/05/24 03/05/24 03/05/24
05:23 05:29 05:53
RBC 3.64 L 10^6/uL
(4.70-6.10)
Hgb 11.6 L g/dL
(13.0-18.0)
Hct 34.5 L %
(39.0-52.0)
MCV 94.8 H fL
(80.0-94.0)
MCH 31.9 H pg
(27.0-31.0)
RDW 17.4 H %
(11.5-14.5)
BUN 37 H mg/dl
(9-20)
Creatinine 5.7 H* mg/dL
(0.7-1.3)
Glucose 132 H mg/dl
(70-99)
POC Glucose 136 H mg/dl
(70-99)
03/05/24 03/05/24
08:31 12:15
RBC
Hgb
Hct
MCV
MCH
RDW
BUN
Creatinine
Glucose
POC Glucose 136 H mg/dl 122 H mg/dl
(70-99) (70-99)
03/05/24 05:23
03/05/24 09:15
Vital Signs
Initial and Last Documented VS:
Initial Vital Signs
Temp Pulse Resp BP Pulse Ox
98.0 F 89 20 171/109 95
03/05/24 03:37 03/05/24 03:37 03/05/24 03:37 03/05/24 03:37 03/05/24 03:37
Last Documented Vital Signs
Temp Pulse Resp BP Pulse Ox
98.0 F 97 16 162/114 99
03/05/24 03:37 03/05/24 06:50 03/05/24 06:50 03/05/24 14:45 03/05/24 06:50
<MARCEL Lobato - Last Filed: 03/05/24 06:48>
MDM/Problems Addressed
Differential Diagnosis Includes:
Gastroparesis, bowel obstruction, gastroenteritis, gastritis
<MARCEL Lobato - Last Filed: 03/05/24 06:48>
*Critical Care Note
Total Time (30-74mins, 75-104mins- exclusive of procedures): Not Applicable
<MARCEL Loabto - Last Filed: 03/05/24 06:48>
Update Note
Update Note:
03/05/2024 06:43AM
Patient reports abdominal pain has reduced from 8/10 to 7/10. He still feels nauseous. He states he is scheduled for dialysis at 11:00am.
<Juancarlos Rod DO - Last Filed: 03/05/24 12:47>
Update Note
Update Note:
03/05/2024 06:43AM
Patient reports abdominal pain has reduced from 8/10 to 7/10. He still feels nauseous. He states he is scheduled for dialysis at 11:00am.
12 PM patient was admitted overnight for dialysis. Case discussed with nephrology and admitting hospitalist. Given that patient was being admitted for dialysis alone, they suggested dialysis in the emergency department and discharge.
ED Attending Note
<MARCEL Lobato - Last Filed: 03/05/24 06:48>
-
Portions of this chart may have been created with voice recognition software.� Occasional wrong word or��sound alike� substitutions may have occurred due to the inherent limitations of voice recognition software.
<Jaime Burdick DO - Last Filed: 03/07/24 23:59>
ED Attending Note
Patient seen and examined by attending physician: Yes
I performed the substantive portion of visit, reviewed & personally made and approve the management plan that is documented in note by myself or AVINASH.: Yes
ED Attending Note:
Pleasant 33-year-old male presents with abdominal pain. He is type 1 insulin-dependent diabetic with end-stage renal disease. He gets dialysis Friday and Friday. Patient has been seen multiple times in this emergency department recently
for identical symptoms. Patient has been hospitalized for acute DKA several times in the past. Patient does have an insulin pump and it has possibly failed in the past. Patient also has signed out of the emergency department and the floor several
times when IV narcotic pain medications have not been ordered. He stated that he has not seen a pain management doctor despite my recommendations in the past. Patient states that he has lower abdominal pain throughout the day.
Vital signs are stable. Patient not hypoxic
Nursing note reviewed. I agree with nursing documentation up to this point in time.
Home Meds and allergies reviewed.
NUMBER AND COMPLEXITY OF PROBLEMS ADDRESSED AT THE ENCOUNTER
� Chronic conditions affecting care: End-stage renal disease, insulin-dependent diabetes, renal failure,
� Acute Exacerbation and/or Progression of Chronic Illness:
� Differential Diagnosis includes: End-stage renal disease needing dialysis,
AMOUNT AND/OR COMPLEXITY OF DATA TO BE REVIEWED AND ANALYZED
I performed an independent evaluation of the following and my interpretation is:
EKG:
CT:
X-rays:
Ultrasound:
Laboratory Studies: Creatinine is 5.7
Other:
Review of other/old records: Multiple ER records. Discharge summary from 02/29/2024 showing leaving against medical vice
Clinical information was obtained by an independent historian:
Prescriptions/Medications Considered but not given:
Further testing considered but not performed: CT scan of the abdomen and pelvis not performed
RISK OF COMPLICATIONS AND/OR MORBIDITY OR MORTALITY OF PATIENT MANAGEMENT
Social determinants of health affecting care: Good Social Support
Discussion with other providers: Hospitalist for admission. Dr. Vigil for dialysis
Escalation of care including admission/observation vs risk of discharge considered: Patient had a dose of Dilaudid. He needs dialysis.
CRITICAL CARE NOTE: Not applicable
Total Time (exclusive of procedures):
Update:
Discharge Plan
Departure
Patient Disposition: Home (Routine Discharge)
Date of Disposition: 03/05/24
Time of Disposition: 07:38
Patient with high blood pressure during this ER visit?: Yes
Condition: Fair
Discharge Problem:
HTN (hypertension), End-stage renal disease (ESRD), Abdominal pain, Nausea & vomiting, Abdominal pain, right lower quadrant
Prescriptions:
No Action
furosemide 40 MG tablet
40 mg PO BID
carvedilol [Coreg] 25 MG tablet
25 mg PO BID
amlodipine 10 MG tablet
10 mg PO DAILY
metoclopramide HCl [Reglan] 10 mg Tablet
10 mg PO TIDPRN PRN (Reason: nausea)
oxcarbazepine 150 mg tablet
150 mg PO DAILYPRN PRN (Reason: mental health)
trazodone 50 mg Tablet
25 mg PO HSPRN PRN (Reason: sleep)
Patient Own Insulin Pump
0 units SC .VIA PUMP
Patient Comments:
03/05/2024, pt. uses insulin pump; pt. states to use roughly 70 units of Novolog 100 unit/ml every day and replaces his insulin Q3D; pt. unsure when he lasted changed his insulin.
Referrals:
Casper Arroyo MD [Family Provider] -
Activity Restrictions/Additional Instructions:
Please follow-up with your primary care doctor, business unit controller and pain management.
Return for worsening symptoms
Interventions
Interventions:
*Risk Screen - Suicide Last Done: 03/05/24 03:37
*General Assessment Last Done: 03/05/24 03:37
*Neglect/Abuse Screening Last Done: 03/05/24 03:37
ED- Fall Risk Assessment Last Done: 03/05/24 03:37
*ED COVID-19 Vaccine History Last Done: 03/05/24 03:37
*Nursing Disposition Last Done: 03/05/24 15:29
EN-Ggmchr-Vbvipzgyhv Assessment Last Done: 03/05/24 05:38
Discharge Date and Time
Discharge Date/Time: 03/05/24 15:30
Print Language: KYRGYZ
[2024-03-05] MEDS: ZOFRAN 4 MG IV (05:27)
[2024-03-05 05:30] LABS: Glucose - Point of Care 136 mg/dl (70-99)
[2024-03-05 05:35] LABS: % Basophils 0.8 % (0-2); % Immature Granulocytes 0.3 % (0-0.5); % Lymphocytes 22.6 % (20.5-51.1); % Monocytes 5.5 % (1.7-9.3); % Neutrophils 68.8 % (42.2-75.2); Absolute Basophils 0.1 10^3/uL (0-0.2); Absolute Eosinophils 0.1 10^3/uL (0-0.7); Absolute Lymphocytes 1.4 10^3/uL (1.2-3.4); Absolute Monocytes 0.3 10^3/uL (0.1-0.6); Absolute Neutrophils 4.1 10^3/uL (1.4-6.5); Hematocrit 34.5 % (39.0-52.0); Hemoglobin 11.6 g/dL (13.0-18.0); Mean Corp Hgb Conc. 33.6 g/dL (33.0-37.0); Mean Corpuscular Hgb 31.9 pg (27.0-31.0); Mean Corpuscular Volume 94.8 fL (80.0-94.0); Mean Platelet Volume 9.5 fL (7.4-10.4); Nucleated Red Blood Cells % 0 % (-); Platelet Count 249 10^3/uL (130-400); Red Blood Cell Count 3.64 10^6/uL (4.70-6.10); Red Cell Dist. Width 17.4 % (11.5-14.5)
--- NOTE | 2024-03-05 05:40 | EDRN ---
pt asking for nausea and pain medication. per dr torres pt can have zofran for nausea and must wait for lab work before pain medication. this rn entered room to administer zofran and IV fluids per jan, pt refusing fluids stating, 'i cannot have
fluids, i am overloaded.' pt medicated with zofran per jan, when this rn flushed IV line after zofran administration, pt stated 'that hurts, that IV is not going to work, you need to remove it.' IV removed per pt request. pt again asking for pain
medication informed that his lab work needs to be resulted and he needs to provide a urine sample before pain medication. pt states he cannot urinate and is demanding pain medication stating, 'the doctor told me he would give me something, am i just
supposed to sit here in pain?' dr torres made aware, at bedside for eval.
[2024-03-05] MEDS: DILAUDID 0.5 MG IM (05:51)
[2024-03-05 06:31] LABS: B-Hydroxybutyrate 0.13 mmol/L (0.02-0.27); Blood Urea Nitrogen 37 mg/dl (9-20); Calcium 8.9 mg/dl (8.4-10.2); Carbon Dioxide 25 mmol/L (22-30); Chloride 98 mmol/L (98-107); Estimated Creatinine Clearance 17 ml/min; Glucose 132 mg/dl (70-99); Sodium 136 mmol/L (135-145)
[2024-03-05 08:32] LABS: Glucose - Point of Care 136 mg/dl (70-99)
[2024-03-05 12:17] LABS: Glucose - Point of Care 122 mg/dl (70-99)
[2024-03-05] MEDS: HEPARIN 500 UNITS IV ×2 (12:30→13:30)
--- NOTE | 2024-03-05 13:43 | W.PN.NEPH.HD ---
Assessment
-
pt seen during HD
vitals stable
UF as tolerates, chr edema
AVF functions well
Pt plan to d/c after HD
known recurrent hospital visit for pain meds
Progress Note - Hemodialysis
-
Date of Service: March 05, 2024
Duration: 30 minutes and 3 hours
Potassium Bath: 2
Calcium Bath: 2.5
Opti-Dialyzer: 160
Ultrafiltration: Other (3.5kg)
Blood Flow: 400
Dialysate Flow: 600
Heparin: yesx2
EPO: no
--- NOTE | 2024-03-05 14:48 | ED.ADDNOTE ---
ED Addendum
ED Addendum
ED Addendum Note:
Patient demanding to go home, has been on dialysis machine for about 2 hours
Encouraged to stay first full treatment is making threats to the ER staff
He is free to go and follow-up with his outpatient dialysis center
== END 2024-03-05 15:30 | disposition home or self-care (01) ==
LOC: EMR 03:29
PROVIDERS: CONSULT PHYSICIAN Specialist; EMERGENCY PHYSICIAN Student in an Organized Health Care Education/Training Program; FAMILY PHYSICIAN Internal Medicine
DX: I12.0 Hypertensive chronic kidney disease with stage 5 chronic kidney disease or end stage renal disease (principal); N18.6 End stage renal disease; R10.30 Lower abdominal pain, unspecified; I50.9 Heart failure, unspecified; E11.22 Type 2 diabetes mellitus with diabetic chronic kidney disease; Z99.2 Dependence on renal dialysis; E11.43 Type 2 diabetes mellitus with diabetic autonomic (poly)neuropathy; K31.84 Gastroparesis; F17.200 Nicotine dependence, unspecified, uncomplicated
CPT/HCPCS: 99283; 96374; 96375; 96376; 96372; 80048; 82010; 82962; 85025; G0257

== ENCOUNTER 2024-03-08 07:54 | Emergency (ER) | payer OTHER, SELFPAY ==
[2024-03-08 08:03] VITALS: BP 179/110
--- NOTE | 2024-03-08 08:56 | ED.GENMED ---
History of Present Illness
General
Chief Complaint: Chest Pain
Source: patient
Time Seen by Provider: 03/08/24 08:11
Travel History
Have you had any contact with someone who has COVID-19?: No
Do you have any symptoms of coronavirus? Fever > 100 degrees, chills, cough, shortness of breath, sore throat, loss of taste or smell, muscle aches, or headache?: No
History of Present Illness
History of Present Illness:
This patient is a 33-year-old male with a extensive prior medical history who presents emergency department complaints of chest pain. Of note, patient was just here and received dialysis, unfortunately left AGAINST MEDICAL ADVICE before dialysis
was complete. He is due to get dialysis today at 11 AM. He says that he developed pain in his chest 'across the front' yesterday, gradual in onset, constant, not pleuritic in nature, without exacerbating relieving factors or radiation. He denies
associated dyspnea, new cough, sore throat, rhinorrhea, fever, chills, neck pain, headache, dizziness. He denies abdominal pain. When asked about leg swelling he notes very slight increase in his usual leg swelling. He denies new back pain. He
does note repeated episodes of nausea and nonbloody vomiting since yesterday as well.
Past History
Past History
ED Past Medical History: CHF, HTN, IDDM, Renal failure (Dialysis M-W-F) and Other (ESRD, PE, Contipation, ESRD, TR, pulmonary hypertension, congestive heart failure, etc. chronic abdominal pain/gastroparesis)
ED Past Surgical History: Appendectomy and Other (Left AV fistula, biliary drain removed)
Patient has exhibited threatening behavior?: No
PSI?: No
Social History
Tobacco: Smoker
Alcohol: None
Drug: None
Personal: Single
Living: with family
Employment: Other
Family History
Family History: Other
Phy Exam
Physical Exam
Physical Exam:
GENERAL: Alert , in no apparent distress but chronically ill-appearing
EYE: pupils equal and reactive
NECK: Supple, no significant adenopathy.
ENT: o/p clr, mmm.
CARDIAC: Regular rate and rhythm, systolic murmur no.
LUNGS: Clear breath sounds bilaterally, no acute respiratory distress, no wheezes/rales/rhonchi, speaks in full sentences easily
ABDOMEN: Soft, without focal tenderness, no r/g, no cvat
NEUROLOGICAL: Alert and oriented, no focal neuro deficits
SKIN: Warm and dry, skin intact.
MUSCULOSKELETAL: Trace lower extremity edema, well perfused. Left upper extremity graft with bruit noted no overlying redness or warmth
PSYCH: Normal and appropriate interaction.
Scores
Heart Score for Chest Pain Patients
STEMI patient?: Not applicable
Course
Orders/Labs/Results
Orders:
Orders
03/08/24 08:05
Electrocardiogram (*1) Urgent
Reason for Study: Chest Pain
EKG- Treatment ONCE
03/08/24 08:51
Cardiac Monitoring- Treatment ONCE
Complete Blood Count/No Diff Urgent
Comprehensive Metabolic Panel Urgent
Magnesium Urgent
Troponin I Urgent
Pulse Ox/cont/shift [RESP] Stat
Quantity: 1
03/08/24 08:52
CR Chest - 2 Views Urgent
Comment:
Reason For Exam: hx esrd, now cp
03/08/24 08:55
Acetaminophen 1000MG/100Ml [Ofirmev] 1,000 mg in 100 ml IV ONCE
Acetaminophen IV Indication:: ED Narcotic History-ONCE
Ondansetron Injectable [Zofran] 4 mg IV NOW STA
Vital Signs
Initial and Last Documented VS:
Initial Vital Signs
Temp Pulse Resp BP Pulse Ox
98.0 F 85 16 179/110 98
03/08/24 08:03 03/08/24 08:03 03/08/24 08:03 03/08/24 08:03 03/08/24 08:03
Last Documented Vital Signs
Temp Pulse Resp BP Pulse Ox
98.0 F 82 11 172/125 96
03/08/24 08:03 03/08/24 09:00 03/08/24 09:00 03/08/24 09:00 03/08/24 09:00
*Critical Care Note
Total Time (30-74mins, 75-104mins- exclusive of procedures): Not Applicable
Update Note
Update Note:
Patient presents to the Emergency Department with ____nausea vomiting and chest pain
Number and Complexity of Problems Addressed at the Encounter
� Chronic conditions affecting care:
� Acute Exacerbation and/or Progression of Chronic Illness:
� Differential Diagnosis includes: But not limited to ACS, DKA, pericarditis, increasing pleural effusion, etc. etc.
Amount and/or Complexity of Data to be Reviewed and Analyzed
� I performed an independent evaluation of and my interpretation is:
EKG: Read by me, normal sinus rhythm, nonspecific T wave inversions anteriorly which is unchanged from prior. No acute ischemia noted
CT:
Xrays:
Laboratory Studies:
Other:
Patient
� Review of other/old records reveals: Patient recently admitted and left AGAINST MEDICAL ADVICE February 29, 2024. Repeated admissions/evaluations for chronic abdominal pain without specific etiology noted
� Clinical information was obtained by an independent historian:
� Prescriptions/Medications Considered but not given: Patient specifically requesting narcotics. Concern regarding risk of dependency. I was very candid with patient that we will avoid narcotics while still attempting to manage
his pain as we perform an evaluation/workupPatient specifically requesting narcotics. Concern regarding risk of dependency. I was very candid with patient that we will avoid narcotics while still attempting to manage his pain as we perform an
evaluation/workup
� Further testing considered but not performed:
Risk of Complications and/or Morbidity or Mortality of Patient Management
� Social determinants of health affecting care:
� Discussion with other providers (PCP, Hospitalists, Consultants, etc):
� Escalation of care including admission/observation vs risk of discharge considered: 9:31 AM patient has left the department AGAINST MEDICAL ADVICE, testing has not yet been initiated with the exception of an ECG. Patient aware
of risks of worsening condition/ as verbalized by RN, would not wait for discussion with physician..
ED Attending Note
-
Portions of this chart may have been created with voice recognition software.� Occasional wrong word or��sound alike� substitutions may have occurred due to the inherent limitations of voice recognition software.
Discharge Plan
Departure
Patient Disposition: Against Medical Advice
Date of Disposition: 03/08/24
Time of Disposition: 09:31
Discharge Problem:
Chest pain
Prescriptions:
No Action
furosemide 40 MG tablet
40 mg PO BID
carvedilol [Coreg] 25 MG tablet
25 mg PO BID
amlodipine 10 MG tablet
10 mg PO DAILY
metoclopramide HCl [Reglan] 10 mg Tablet
10 mg PO TIDPRN PRN (Reason: nausea)
oxcarbazepine 150 mg tablet
150 mg PO DAILYPRN PRN (Reason: mental health)
trazodone 50 mg Tablet
25 mg PO HSPRN PRN (Reason: sleep)
Patient Own Insulin Pump
0 units SC .VIA PUMP
Patient Comments:
03/05/2024, pt. uses insulin pump; pt. states to use roughly 70 units of Novolog 100 unit/ml every day and replaces his insulin Q3D; pt. unsure when he lasted changed his insulin.
Referrals:
Casper Arroyo MD [Family Provider] -
Interventions
Interventions:
*ED COVID-19 Vaccine History Last Done: 03/08/24 08:03
ED- Cardiac Assessment Last Done: 03/08/24 08:36
Discharge Date and Time
Print Language: ALBANIAN
[2024-03-08 08:57] VITALS: BMI 23.8
[2024-03-08 09:00] VITALS: BP 172/125
== END 2024-03-08 09:27 | disposition left against medical advice (07) ==
LOC: EMR 07:54
PROVIDERS: EMERGENCY PHYSICIAN Emergency Medicine; FAMILY PHYSICIAN Internal Medicine
DX: R11.2 Nausea with vomiting, unspecified (principal); R07.9 Chest pain, unspecified; F17.200 Nicotine dependence, unspecified, uncomplicated; Z99.2 Dependence on renal dialysis
CPT/HCPCS: 99283; 93005

== ENCOUNTER 2024-03-10 14:52 | Inpatient (IN) | payer OTHER, SELFPAY ==
[2024-03-10] VITALS (32 sets, daily range): BP systolic 102–169; BP diastolic 59–106; BMI 23.8; BMI 23.3
--- NOTE | 2024-03-10 12:10 | ED.GENMED ---
History of Present Illness
General
Chief Complaint: Blood Sugar Problem
Time Seen by Provider: 03/10/24 12:10
History of Present Illness
History of Present Illness:
HPI: Patient presents due to poor p.o. intake/vomiting. He reports ongoing abdominal pain and is requesting narcotic analgesia. He states he was last dialyzed on Friday. Overall he has been doing poorly recently and came in by ambulance for
reevaluation.
EXAM:
GENERAL: Appears acutely upon chronically ill, appears uncomfortable, currently on nasal cannula his room air sats are about 89-90
HEENT: Dry oral mucosa
CARDIOVASCULAR: No murmurs, normal heart rate, regular rhythm, No chest wall tenderness
PULMONARY: No respiratory distress, breath sounds are clear and equal
ABDOMEN: Soft with no peritoneal signs, mild diffuse tenderness
NEUROLOGIC: Fair strength all extremities, no coordination deficits
PSYCHIATRIC: Appropriate mental status, normal insight and judgement
EXTREMITIES: Fistula left upper extremity
SKIN: No rash, no lesions
TIME OF INITIAL ENCOUNTER:
12:30 PM
NUMBER AND COMPLEXITY OF PROBLEMS ADDRESSED AT THE ENCOUNTER
� Chronic conditions affecting care: Heart failure, high blood pressure, CKD on dialysis Friday, IDDM on insulin pump
� Acute Exacerbation and/or Progression of Chronic Illness: This is an acute but recurring prior
� Differential Diagnosis includes: DKA, hyperkalemia, hypokalemia, anemia
AMOUNT AND/OR COMPLEXITY OF DATA TO BE REVIEWED AND ANALYZED
� I performed an independent evaluation of and my interpretation is:
EKG: Sinus 79, normal axis, nonspecific ST abnormality, QTc is 502 [address]:
X-rays:
Laboratory Studies: White count 6.3, hemoglobin 11.2, initial fingerstick blood sugar was greater than 600, glucose 915, potassium 7.6, bicarb 10, pH 7.15
Other:
� Review of other/old records: I reviewed discharge summary from 02/22/2024 at that time he was admitted with abdominal pain and was found to have a right-sided pleural effusion and could not tolerate dialysis the day prior. The
patient had been requesting Dilaudid and he apparently signed out AGAINST MEDICAL ADVICE. The patient has recently been here multiple times over the past month. He has signed out AGAINST MEDICAL ADVICE at least a few times. It is noted that he has
had multiple request for narcotic analgesia and last visit it again was documented to avoid narcotics.
� Clinical information was obtained by an independent historian: None needed
� Prescriptions/Medications Considered but not given:
� Further testing considered but not performed:
RISK OF COMPLICATIONS AND/OR MORBIDITY OR MORTALITY OF PATIENT MANAGEMENT
� Social determinants of health affecting care: Lives at home, on HD Friday
� Discussion with other providers: I notified Dr. De La Torre of the patient's presentation as well as several missed dialysis sessions�he is hyperkalemic. Hospitalist for admission.
� Escalation of care including admission/observation vs risk of discharge considered: Regarding the hyperkalemia I have ordered calcium and insulin as well as other meds. Dr. De La Torre is planning dialysis. I have also given IV
fluids however only ordered 500 mL of fluid as he is somewhat hypoxic and has CKD and missed several dialysis sessions.
Past History
Past History
ED Past Medical History: CHF, HTN, IDDM, Renal failure (Dialysis M-W-F) and Other (ESRD, PE, Contipation, ESRD, TR, pulmonary hypertension, congestive heart failure, etc. chronic abdominal pain/gastroparesis)
ED Past Surgical History: Appendectomy and Other (Left AV fistula, biliary drain removed)
Patient has exhibited threatening behavior?: No
PSI?: No
Social History
Tobacco: Smoker
Alcohol: None
Drug: None
Personal: Single
Living: with family
Employment: Other
Family History
Family History: Other
Phy Exam
Physical Exam
Physical Exam:
See HPI
Course
Orders/Labs/Results
Orders:
Orders
03/10/24 12:03
Electrocardiogram (*1) Urgent
Reason for Study: Chest Pain
03/10/24 12:04
EKG- Treatment ONCE
03/10/24 12:18
Complete Blood Count/With Diff Urgent
03/10/24 12:48
Ondansetron Injectable [Zofran] 4 mg IV NOW STA
03/10/24 12:49
0.9% Sodium Chloride 500 ml [Nss] 500 ml IV BOLUS
Ondansetron Injectable [Zofran] 4 mg .ROUTE .STK-MED ONE
03/10/24 13:04
Acetone [B-Hydroxybutyrate] Urgent
B-Hydroxybutyrate Urgent
Comprehensive Metabolic Panel Urgent
Troponin I Urgent
03/10/24 13:44
Albuterol Nebs [Ventolin Nebules] 2.5 mg INH R NOW STA
Calcium Gluconate 1 gram/100mL [Calcium Gluconate] 1 gram in 100 ml IV ONCE
Insulin Human Regular [Novolin R] 10 units IV NOW STA
Sodium Bicarbonate 50 meq IV NOW STA
Peak Flow Rate [RESP] Urgent
Quantity: 1
Pre-Bronchodilator: Yes
Post Bronchodilator: Yes
Special Instructions: Pre and Post Peak Flow before and after Bronchodilator
03/10/24 13:50
HYDROmorphone [Dilaudid] 0.5 mg IV NOW STA
03/10/24 13:59
Venous Blood Gas Urgent
%Oxygen/Room Air: 2lpm
03/10/24 14:18
Reg Insulin 100 Units/100 ml [Novolin R Insulin Infusion] 100 units in 100 ml IV NOW
03/10/24 14:26
Urine Drug Abuse Screen Urgent
03/10/24 14:28
Admit/Transfer Patient As Directed
Co-Sign Provider:
Level of Care: Inpatient admission
Assign to:: ICU
Physician / Group: Jonah
Diagnosis: DKA
Reason for Hospitalization: insulin drip, HD
Expected length of stay greater than two midnights?: Yes
ELOS- Estimated Length of Stay in days: 3
I certify the patient meets the requirements for IP care: Yes
03/10/24 14:32
Code Status As Directed
Resuscitation Status: Full Code
03/10/24 14:36
CR Chest Portable - 1 View Stat
Comment:
Reason For Exam: cough, shortness of breath
Reason Study Needs to be Portable: Patient Unstable
Abnormal Lab Results
03/10/24 03/10/24 03/10/24
12:14 12:18 13:04
RBC 3.53 L 10^6/uL
(4.70-6.10)
Hgb 11.2 L g/dL
(13.0-18.0)
Hct 33.9 L %
(39.0-52.0)
MCV 96.0 H fL
(80.0-94.0)
MCH 31.7 H pg
(27.0-31.0)
RDW 18.9 H %
(11.5-14.5)
MPV 11.5 H fL
(7.4-10.4)
Absolute Lymphs (auto) 0.5 L 10^3/uL
(1.2-3.4)
Immature Gran % 0.6 H %
(0-0.5)
Neutrophils % 82.7 H %
(42.2-75.2)
Lymphocytes % 8.2 L %
(20.5-51.1)
VBG pH
VBG pO2
VBG HCO3
Sodium 127 L mmol/L
(135-145)
Potassium 7.6 H* mmol/L
(3.5-5.1)
Chloride 90 L mmol/L
(98-107)
Carbon Dioxide 10 L* mmol/L
(22-30)
BUN 73 H mg/dl
(9-20)
Creatinine 10.5 H* mg/dL
(0.7-1.3)
Glucose 915 H* mg/dl
(70-99)
Calcium 8.3 L mg/dl
(8.4-10.2)
Alkaline Phosphatase 130 H U/L
(38-126)
Troponin I 0.060 H* ng/ml
Total Protein 6.2 L g/dl
(6.3-8.2)
B-Hydroxybutyrate 1.95 H mmol/L
(0.02-0.27)
POC Glucose > 600 H* mg/dl
(70-99)
03/10/24 03/10/24
13:04 13:59
RBC
Hgb
Hct
MCV
MCH
RDW
MPV
Absolute Lymphs (auto)
Immature Gran %
Neutrophils %
Lymphocytes %
VBG pH 7.15 L*
(7.32-7.43)
VBG pO2 121 H mmHg
(30-50)
VBG HCO3 12.5 L mmol/L
(22-27)
Sodium
Potassium
Chloride
Carbon Dioxide
BUN
Creatinine
Glucose
Calcium
Alkaline Phosphatase
Troponin I
Total Protein
B-Hydroxybutyrate 1.95 H mmol/L
(0.02-0.27)
POC Glucose
03/10/24 12:18
03/10/24 13:04
Vital Signs
Initial and Last Documented VS:
Initial Vital Signs
BP Pulse Ox
111/59 88
03/10/24 12:06 03/10/24 12:06
Last Documented Vital Signs
Temp Pulse Resp BP Pulse Ox
97.7 F 85 22 149/94 93
03/10/24 12:07 03/10/24 14:30 03/10/24 14:30 03/10/24 14:00 03/10/24 14:15
*Pulse Oximetry
Patient hypoxic: yes
Comment: 90% on room air
*Critical Care Note
Total Time (30-74mins, 75-104mins- exclusive of procedures): 60min
comment:
Patient is in DKA and is critically ill. He was treated for hyperkalemia as well as DKA emergently. Vital signs were closely monitored.
ED Attending Note
-
Portions of this chart may have been created with voice recognition software.� Occasional wrong word or��sound alike� substitutions may have occurred due to the inherent limitations of voice recognition software.
Discharge Plan
Departure
Patient Disposition: Admit
Date of Disposition: 03/10/24
Time of Disposition: 14:05
Presentation/result/management discussed w/ accepting MD/DO: Hospitalist
Discharge Problem:
DKA (diabetic ketoacidosis)
Interventions
Interventions:
*Risk Screen - Suicide Last Done: 03/10/24 12:07
*General Assessment Last Done: 03/10/24 12:07
*Neglect/Abuse Screening Last Done: 03/10/24 12:07
ED- Neurological Assessment Last Done: 03/10/24 12:23
[2024-03-10 12:15] LABS: Glucose - Point of Care > 600 mg/dl (70-99)
[2024-03-10 12:32] LABS: % Basophils 0.3 % (0-2); % Immature Granulocytes 0.6 % (0-0.5); % Lymphocytes 8.2 % (20.5-51.1); % Monocytes 8.2 % (1.7-9.3); % Neutrophils 82.7 % (42.2-75.2); Absolute Lymphocytes 0.5 10^3/uL (1.2-3.4); Absolute Monocytes 0.5 10^3/uL (0.1-0.6); Absolute Neutrophils 5.2 10^3/uL (1.4-6.5); Hematocrit 33.9 % (39.0-52.0); Hemoglobin 11.2 g/dL (13.0-18.0); Mean Corpuscular Hgb 31.7 pg (27.0-31.0); Mean Platelet Volume 11.5 fL (7.4-10.4); Nucleated Red Blood Cells % 0 % (-); Platelet Count 229 10^3/uL (130-400); Red Blood Cell Count 3.53 10^6/uL (4.70-6.10); Red Cell Dist. Width 18.9 % (11.5-14.5); White Blood Cell Count 6.3 10^3/uL (4.8-10.8)
[2024-03-10] MEDS: ZOFRAN 4 MG IV (13:04)
[2024-03-10] MEDS: NSS 500 IV (13:04)
[2024-03-10 13:30] LABS: B-Hydroxybutyrate 1.95 mmol/L (0.02-0.27)
[2024-03-10 13:38] LABS: ALT (SGPT) 23 U/L (0-50); AST (SGOT) 26 U/L (17-59); Albumin 3.7 g/dl (3.5-5.0); Alkaline Phosphatase 130 U/L (38-126); B-Hydroxybutyrate 1.95 mmol/L (0.02-0.27); Blood Urea Nitrogen 73 mg/dl (9-20); Calcium 8.3 mg/dl (8.4-10.2); Carbon Dioxide 10 mmol/L (22-30); Chloride 90 mmol/L (98-107); Estimated Creatinine Clearance 9 ml/min; Potassium 7.6 mmol/L (3.5-5.1); Sodium 127 mmol/L (135-145); Total Bilirubin 0.8 mg/dl (0.2-1.3); Total Protein 6.2 g/dl (6.3-8.2)
[2024-03-10] MEDS: NOVOLIN R 10 UNITS IV (13:49)
[2024-03-10] MEDS: SODIUM BICARBONATE 50 MEQ IV (13:49)
[2024-03-10] MEDS: VENTOLIN NEBULES 2.5 MG INH (13:50)
[2024-03-10] MEDS: CALCIUM GLUCONATE 100 IV (13:51)
[2024-03-10] MEDS: DILAUDID 0.5 MG IV (14:00)
[2024-03-10 14:15] LABS: Glucose 915 mg/dl (70-99)
[2024-03-10 14:18] LABS: Venous Blood Gas B.E. -15.4 mmol/L (-4 to +4); Venous Blood Gas HCO3 12.5 mmol/L (22-27); Venous Blood Gas O2 Sat % 98.6 %; Venous Blood Gas pCO2 36 mmHg (35-48); Venous Blood Gas pO2 121 mmHg (30-50)
[2024-03-10 14:23] LABS: Venous Blood Gas pH 7.15 (7.32-7.43)
[2024-03-10] MEDS: NOVOLIN R INSULIN INFUSION 100 IV (14:25)
--- NOTE | 2024-03-10 14:38 | HPS.HSE ---
Addendum entered and electronically signed by Luiza Olivares PA-C 03/10/24 15:05:
Correction:
Change Zofran to Tigan due to prolonged QT. Recheck ECG in AM to monitor QTc.
Original Note:
Family Physician
-
Family Physician: Casper Arroyo
Chief Complaint
-
Nausea, Vomting and Diarrhea
History of Present Illness
Patient is a 33 y/o male past medical history of Type I Diabetes Mellitus and ESRD due to diabetic nephropathy on dialysis who presents with nausea, vomiting and diarrhea. Patient reports his insulin pump ran out of insulin yesterday. He states
picked up more insulin last evening but has yet to refill his pump. This morning he developed significant nausea, vomiting and diarrhea. He is also complaining about cough and increased shortness of breath. His last dialysis treatment was last
Friday. He notes he missed his HD treatment on Friday as he was in the emergency department for chest pain, but it appears he left AMA that day.
Medical History
Past Medical History
Past Medical History: Reports Other
Additional Past Medical History:
DM-I (Dx age 13)
ESRD on HD
Poor Compliance
Hypertension
Gastroparesis
Anxiety / Depression
Past Surgical History: Reports Other
Additional Past Surgical History:
LUE AVF
Appendectomy
PD Catheter placed / removed
Social History
Tobacco: Smoker (Current every day smoker. 1/2 ppd for total of 20 pack years.)
Alcohol: Occasional
Drug: None
Family History
Family History: Asthma
Allergies / Home Medications
Allergies reflects when Allergies were last updated in [employer].
Home Medications with original date entered in [employer]
Allergy/Medication List:
Allergies
Allergy/AdvReac Type Severity Reaction Status Date / Time
shellfish derived Allergy Hives Verified 03/10/24 12:04
Home Medications
amlodipine 10 mg tablet 10 mg PO DAILY Blood pressure 04/22/21
carvedilol 25 mg tablet (Coreg) 25 mg PO BID Blood pressure 04/22/21
furosemide 40 mg tablet 40 mg PO BID Fluid retention/Swelling 04/22/21
metoclopramide HCl 10 mg tablet (Reglan) 10 mg PO TIDPRN PRN nausea 04/07/23
oxcarbazepine 150 mg tablet 150 mg PO DAILYPRN PRN mental health 07/24/23
trazodone 50 mg tablet 25 mg PO HSPRN PRN sleep 01/05/24
Patient Own Insulin Pump 0 units SC .VIA PUMP diabetes 02/13/24
Review of Systems
-
A 12 point ROS was completed and negative except as noted: Yes
Constitutional: Denies Fever or Chills
Respiratory: Reports Cough and Trouble Breathing
Abdomen/GI: Reports Abdominal Pain, Nausea, Vomiting and Diarrhea
Physical Exam
Vital Signs
Vital Signs
Temp Pulse Resp BP Pulse Ox
97.7 F 85 22 149/94 93
03/10/24 12:07 03/10/24 14:30 03/10/24 14:30 03/10/24 14:00 03/10/24 14:15
Physical Exam
General: Well Developed, Well Nourished and Other (Appears acutely ill)
HEENT: NormoCephalic, Anicteric and Oxygen (Nasal Cannula)
Respiratory: Wheezes (Diffuse) and Non Labored Respirations
Cardiac: S1/S2 and Regular Rhythm (Slightly Tachycardic)
GI: Soft and Tender (Mild on the right without rebound or guarding)
Musculoskeletal: No Clubbing, No Cyanosis and No Edema
Skin: Warm and Dry
Neuro: Awake, Alert and Nonfocal/grossly intact
Psych: Calm
Laboratory Results
-
03/10/24 12:18
03/10/24 13:04
Laboratory Results
Total Bilirubin 0.8 mg/dl (0.2-1.3) 03/10/24 13:04
AST 26 U/L (17-59) 03/10/24 13:04
ALT 23 U/L (0-50) 03/10/24 13:04
Alkaline Phosphatase 130 U/L (38-126) H 03/10/24 13:04
Troponin I 0.060 ng/ml H* 03/10/24 13:04
Data Reviewed
-
Lab Data: Labs Reviewed by me
Impression/Plan
-
Diabetic Ketoacidosis
-Admit to ICU
-Continue insulin pump
-Monitor BMP every 4 hours
-Monitor glucose every 2 hours
Acute Volume Overload and Hyperkalemia secondary to Missed HD Treatments
-Consult Nephrology
-Plan for HD this afternoon
-Continue Lasix
Chronic Abdominal Pain / Gastroparesis
-Continue NPO until nausea/vomiting improves
-Continue Zofran prn
-Avoid narcotics pain meds
Hypertension
-Continue Coreg and Amlodipine
DVT proph: SC Heparin
Code Status: Full Code
--- NOTE | 2024-03-10 15:00 | W.PN.UPDATE ---
Update Note
Progress Note Update
I saw and examined the patient.
The PA H&P was reviewed and I agree with the note.
Comment:
33-year-old male with extensive past medical history of diabetes mellitus type 1 on insulin pump, diabetic nephropathy, ESRD on hemodialysis, chronic right-sided pleural effusion, suspected gastroparesis, hypertension, pulmonary hypertension, mood
disorder who is presenting from home with weakness. Patient was found to be in DKA and started on insulin infusion. Patient missed 2 last dialysis session. Patient presented with nausea vomiting And abdominal pain by EMS.
Gen-disshelved, on nebulizer
cards s1 s2
pulm +wheezing, dec BS R>L
abd non distended, non tender
msk lue avf +bruit
ext no edema
#DKA secondary to noncompliance
#IDDM
Continue with IV insulin DKA protocol
Severely uncontrolled glucose
Every 4 hours BMP. Q1H accuchecks
Mattress Stripper consult
#ESRD on hemodialysis M, W, F
#Hyperkalemia secondary to missed dialysis
-Missed dialysis
-Status post temporizing measures in the ER.
-Nephrology consulted for dialysis
-Continue Lasix
# Nausea and vomiting likely secondary to DKA versus gastroparesis
-Monitor symptoms for now
-tight glucose control
# Troponin elevation likely demand in the setting of DKA
#Chronic troponin elevation in setting of ESRD on hemodialysis
# Recurrent right pleural effusion
-Check chest x-ray. May need thoracentesis.
#Chronic anemia of renal disease
-Hemoglobin stable
#Essential hypertension
-Continue amlodipine
-Continue Coreg
#Severe pulmonary hypertension
#Anxiety/depression
-Continue oxcarbazepine, trazodone
#Tobacco abuse
-Smokes half pack of cigarettes per day
Full code
DVT prophylaxis�heparin
npo
icu
Total Critical Care Time_35 minutes. I was immediately available to the patient and staff. I personally examined, reviewed labs, diagnostic images/reports, interpretations, treatment plans, discussed patient care with other providers and family
or caregivers (if patient is unable to make decisions), entered orders as appropriate and documented the medical record.
--- NOTE | 2024-03-10 15:02 | CON.INTV ---
Consultation
Consultation Request
Date/Time Consultation Requested: 03/10
Date/Time Consultation Performed: 03/10
Reason for Consultation: Critical care, DKA
Medical History
-
History of Present Illness:
History obtained from the chart and from the patient. 33-year-old male with history of diabetes, noncompliance, end-stage renal disease on hemodialysis with a ED visit 03/03, 03/05, 03/08, now again 03/10/2024. Patient presents with poor p.o. intake and
emesis. Patient also requesting narcotics for abdominal pain. Last dialysis was 03/05. Upon arrival to [facility], blood pressure 110s/50s, 88% saturation, pulse 70s, breathing at 24, afebrile. Patient was noted to have blood sugar greater
than 600, serum bicarbonate of 10. He was given IV fluids, Zofran therapy. Of note patient has an insulin pump. Patient cannot recall when he last changed his insulin pump. We are asked to help from critical care standpoint
During my assessment, patient is sleeping. Did not awaken during simple exam. Received Dilaudid in the ER
.
PMH: Type 2 diabetes on insulin pump, complicated by diabetic nephropathy, end-stage renal disease on hemodialysis, chronic right-sided pleural effusion, chronic abdominal pain, gastroparesis, hypertension, alcohol use disorder, anxiety/depression,
narcotic use. Patient also has history of pulmonary embolism, left upper extremity AV fistula, appendectomy, history of peritoneal dialysis catheter, now removed
Past Medical History
Past Medical History: None (See above)
Past Surgical History: None (See above)
Social History
Tobacco: Smoker ([id number], half pack a day)
Alcohol: Occasional
Drug: None
Family History
Family History: Other (Family history of asthma)
Allergies / Home Medications
Allergies
Allergy/AdvReac Type Severity Reaction Status Date / Time
shellfish derived Allergy Hives Verified 03/10/24 12:04
Home Medications
�Medication �Instructions �Recorded �Confirmed �Last Taken �Type
amlodipine 10 mg tablet 10 mg PO DAILY Blood pressure 04/22/21 03/10/24 03/04/24 History
carvedilol 25 mg tablet (Coreg) 25 mg PO BID Blood pressure 04/22/21 03/10/24 03/04/24 History
furosemide 40 mg tablet 40 mg PO BID Fluid 04/22/21 03/10/24 03/04/24 History
retention/Swelling
metoclopramide HCl 10 mg tablet 10 mg PO TIDPRN PRN nausea 04/07/23 03/10/24 01/04/24 History
(Reglan)
oxcarbazepine 150 mg tablet 150 mg PO DAILYPRN PRN mental 07/24/23 03/10/24 01/04/24 History
health
trazodone 50 mg tablet 25 mg PO HSPRN PRN sleep 01/05/24 03/10/24 01/04/24 History
Patient Own Insulin Pump 0 units SC .VIA PUMP diabetes 02/13/24 03/10/24 03/05/24 History
Review of Systems
Vitals / Labs / Diagnostic Testing
Vital Signs
Temp Pulse Resp BP Pulse Ox
97.7 F 85 22 149/94 93
03/10/24 12:07 03/10/24 14:30 03/10/24 14:30 03/10/24 14:00 03/10/24 14:15
Lab Data
03/10/24 12:18
03/10/24 13:04
Diagnostic Testing:
Physical Exam
-
HEENT: Normocephalic
Cardiovascular: S1/S2, Regular Rhythm, Murmur (n) and Rub (n)
Respiratory: Wheeze (Mild expiratory posteriorly), Rales (n), Non-Labored Respirations and Other (Decreased at base)
Neurology: Other (Sleeping, did not awaken during exam)
Skin: Other (Scattered abrasions and jefferson of upper extremities bilaterally)
General: Comfortable
Exam:
Sleeping, lying flat
Assessment
-
Patient is a 33-year-old male with past medical history of diabetes melitis type I (on insulin pump), ESRD on hemodialysis MWF, hypertension, with multiple ED visits over the past week, noncompliance with dialysis and diabetic therapy, now presents
with abdominal pain, nausea. Blood sugar greater than 600, admitted with DKA, admitted to ICU 03/10/2024
Acute DKA
Blood sugar greater than 900
Metabolic acidemia
Chronic abdominal pain/nausea/emesis, waxing and waning
Gastroparesis
Hyperkalemia
Hyponatremia
chronic, baseline sodium 129-134
Elevated troponin
Chronic right pleuroparenchymal process
s/p rt Thora 02/17/24, -1800cc transudate
Cytology negative
Conditions present prior to admission
Anemia
History of DM type I
Insulin pump, history of malfunction, noncompliance
End-stage renal disease
Secondary to diabetic nephropathy
Noncompliant with dialysis
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
PA pressure 65
Ascites, small pericardial effusion per prior imaging
Suspected sleep disordered breathing ongoing tobacco use
History of hypoxia on home oxygen
Details unclear, set up through [facility]
Anxiety/depression
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
Reported history of PE 2020, treated 6m OAC
History of medical noncompliance
Ongoing tobacco use, 10+ pack year
Plan/recommendations
At this time, patient appears to be nontoxic.
There is some mild wheezing on exam. Chest x-ray with right pleuroparenchymal process chronic. There may be some mild right upper lobe fluid in the fissure
Of note, patient is due for dialysis today
Last blood sugar 900
Echocardiogram February 2024 normal LV function with RV pressure overload and RV dilatation, PA pressure 50. This appears to be chronic and stable. No comment on right ventricular function
Moving forward
Continue with insulin drip
Has not received IV fluids at this time, hyperkalemia noted
Plan for dialysis today. Nephrology has been consulted
Continue with close monitoring of blood sugar, adjusting insulin as appropriate
Unfortunately, patient with significant noncompliance in the past per reviewing records
Reviewed CT abdomen/. Moderate right-sided pleural effusion with likely trapped lung physiology, area of pleural thickening
This appears to be chronic as far back as April 2023
Was not present on CT chest April 2021
EKG reviewed.
Prolonged QT noted, [address] and T wave changes, right axis noted
patient apparently with history of signing out AMA after not receiving narcotic therapy
No narcotic therapy given nausea/emesis, gastroparesis
Remains n.p.o.
DVT prophylaxis: Subcutaneous heparin every 8 hours
GI prophylaxis: On pantoprazole
Reviewed with critical care nursing
We will follow
TCCT 31 min
Data:
TTE 02-18-2024:
Normal left ventricular systolic function. LV ejection fraction is 60% by
volumetric assessment.
Mild concentric left ventricular hypertrophy.
The right ventricle is dilated. Septum flattened in systole consistent with RV
pressure overload.
--- NOTE | 2024-03-10 15:04 | W.CON.NEPH ---
Medical History
-
Chief Complaint: N/V/D
History of Present Illness:
Patient is a 33 y/o male past medical history of HTN (on amlodipine and carvedilol), ESRD on HD (MWF), PE, constipation, depression, anxiety (on oxcarbazepine and trazodone), substance abuse, prior multiple hospital visit for pain meds, Type I
Diabetes Mellitus who presents with nausea, vomiting and diarrhea. Patient reports his insulin pump ran out of insulin yesterday. He states picked up more insulin last evening but has yet to refill his pump. This morning he developed significant
nausea, vomiting and diarrhea. He is also complaining about cough and increased shortness of breath. His last dialysis treatment was last Monday 03/05 only completed 2hr of HD and left AMA from ER. he missed HD treatment on Friday as he was in the
emergency department for chest pain, but it appears he left AMA that day too. During visit in ER pt is vomiting and unable to provide further history. He noted to be in DKA with BG of 900, bicarb 10, K 7.5. We were consulted for his end-stage renal
disease manage.
Past Medical History
end-stage renal disease on hemodialysis
PE
constipation
CHF
pleural effusions
depression/ anxiety
polysubstance abuse
Diabetes
Left upper extremity AV fistula
Pulmonary hypertension
Past Surgical History: Other (LUE AVF Appendectomy PD Catheter placed / removed)
Social History
Tobacco: Smoker
Alcohol: Occasional
Drug: Other (h/o polysub abuse)
Family History
Family History: Not Pertinent
Allergies / Home Medications
Allergy/AdvReac Type Severity Reaction Status Date / Time
shellfish derived Allergy Hives Verified 03/10/24 12:04
�Medication �Instructions �Recorded �Confirmed �Type
amlodipine 10 mg tablet 10 mg PO DAILY Blood pressure 04/22/21 03/10/24 History
carvedilol 25 mg tablet (Coreg) 25 mg PO BID Blood pressure 04/22/21 03/10/24 History
furosemide 40 mg tablet 40 mg PO BID Fluid 04/22/21 03/10/24 History
retention/Swelling
metoclopramide HCl 10 mg tablet 10 mg PO TIDPRN PRN nausea 04/07/23 03/10/24 History
(Reglan)
oxcarbazepine 150 mg tablet 150 mg PO DAILYPRN PRN mental 07/24/23 03/10/24 History
health
trazodone 50 mg tablet 25 mg PO HSPRN PRN sleep 01/05/24 03/10/24 History
Patient Own Insulin Pump 0 units SC .VIA PUMP diabetes 02/13/24 03/10/24 History
Review of Systems
-
unable to obtain as pt actively vomiting
Physical Exam
Vital Signs
Vital Signs
Temp Pulse Resp BP Pulse Ox
97.7 F 85 22 149/94 93
03/10/24 12:07 03/10/24 14:30 03/10/24 14:30 03/10/24 14:00 03/10/24 14:15
Lab Results
WBC 6.3 10^3/uL (4.8-10.8) 03/10/24 12:18
RBC 3.53 10^6/uL (4.70-6.10) L 03/10/24 12:18
Hgb 11.2 g/dL (13.0-18.0) L 03/10/24 12:18
Hct 33.9 % (39.0-52.0) L 03/10/24 12:18
Plt Count 229 10^3/uL (130-400) 03/10/24 12:18
Sodium 127 mmol/L (135-145) L 03/10/24 13:04
Potassium 7.6 mmol/L (3.5-5.1) H* 03/10/24 13:04
Chloride 90 mmol/L (98-107) L 03/10/24 13:04
Carbon Dioxide 10 mmol/L (22-30) L* 03/10/24 13:04
BUN 73 mg/dl (9-20) H 03/10/24 13:04
Creatinine 10.5 mg/dL (0.7-1.3) H* 03/10/24 13:04
eGFR 6.10 03/10/24 13:04
Glucose 915 mg/dl (70-99) H* 03/10/24 13:04
Calcium 8.3 mg/dl (8.4-10.2) L 03/10/24 13:04
Albumin 3.7 g/dl (3.5-5.0) 03/10/24 13:04
CXR:
IMPRESSION:
Right basilar opacity again seen at least in part suggesting pleural effusion, perhaps slightly increased.
Additional small opacity in the lateral right mid to upper chest which could represent extension of pleural fluid, cannot exclude new opacity such as pneumonia.
No pneumothorax.
Physical Exam
General: Awake, Alert, Oriented, AOx3 and Other (in mild resp distress)
HEENT: EOMI and Anicteric
Respiratory: Wheezes and Rhonchi
Cardiac: S1/S2 and Regular Rate/Rhythm
Abdomen: Soft, Nontender and Nondistended
Musculoskeletal: No Cyanosis and Edema (2+)
Skin: No Rash
Neuro: Nonfocal/Grossly Intact
Psych: Appropriate and Other (poor insight and judgement)
Assessment/Plan
-
Impression:
ESRD MWF ([facility]),
left UE AVF
DKA
Hyperkalemia
Acute Volume Overload and Hyperkalemia secondary to Missed HD Treatments
Chronic Abdominal Pain / Gastroparesis
Pulmonary hypertension
Polysubstance abuse
Anxiety
Anemia
Right pleural effusion--s/p R throa for pleural effusion with 1.8L transudate 02/17/24
Plan:
A/w DKA and vol overload
severe hyperkalemia from DKA
plan HD today with UF
sig hypervolemia, try wean O2 after HD
may benefit from extra HD tomorrow based on labs
strict renal diet and FR 40 ounces/day
BP are stable, hold anti HTN Meds with n/v
-Glucose control per primary team
If he continues this behavior of non compliance and drug seeking, unfortunately we cant help him and he is at high risk of mortality
hope he understands, He previously had many discussions with multiple providers regarding this
d/w nursing
CC time spent 40min
[2024-03-10] MEDS: PROTONIX IV 40 MG IV (15:21)
[2024-03-10] MEDS: NSS (PRESERVATIVE FREE) 10 ML IV (15:22)
--- NOTE | 2024-03-10 15:40 | PTCARENOTE ---
Pt received into Rm 3366 at 1500 via stretcher from ED. Pt drowsy, but easily arousable to verbal stimuli. Follows all commands and answers questions appropriately. No acute distress noted. Insulin gtt infusing at 7 units/hr upon arrival. Pt denies
SOB. O2 @ 4l/min via NC w/ Pox 96%. Pt c/o / abdominal pain 'can you ask the doctor to give me something for pain'. Abdomen soft, generalized tenderness to palpation, hypoactive bowel sounds. Pt denies nausea. CHG bath completed. Physical
assessment completed. HD RN en route to begin ordered HD tx. Dr Arboleda in room to evaluate pt and notified of pt's request for pain meds.
[2024-03-10] MEDS: HEPARIN 500 UNITS IV ×2 (16:05→17:05)
[2024-03-10 16:43] LABS: Blood Urea Nitrogen 74 mg/dl (9-20); Calcium 8.6 mg/dl (8.4-10.2); Carbon Dioxide 16 mmol/L (22-30); Chloride 93 mmol/L (98-107); Estimated Creatinine Clearance 10 ml/min; Potassium 5.8 mmol/L (3.5-5.1); Sodium 129 mmol/L (135-145); eGFR 6.32
--- NOTE | 2024-03-10 16:52 | PTCARENOTE ---
Pt received into Rm 3366 via stretcher from ED. Pt drowsy but easily arousable to verbal stimuli on arrival. Transferred into ICU bed. CHG bath completed. Received on Insulin gtt at 7 units/hr. Pt on O2 at 4l/min via NC w/ POx 96%. No distress
noted. Pt asking 'can you ask the doctor to give me something for pain?' When questioned, pt reports 9/10 abdominal discomfort. Skin w/d. Color ashen. Abdomen soft w/ hypoactive bowel sounds. Healed scaring noted. Pt informed that his request would
be passed along to MD. Pt able to reposition self independently in bed. Pt denies nausea. Physical assessment completed.
[2024-03-10 17:00] LABS: Glucose 734 mg/dl (70-99)
[2024-03-10 17:40] LABS: Glucose - Point of Care 395 mg/dl (70-99)
[2024-03-10] MEDS: MANNITOL 12.5 GRAMS IV ×2 (17:50→18:50)
--- NOTE | 2024-03-10 17:52 | W.PN.NEPH.HD ---
Assessment
-
pt seen during HD
vitlas stable
UF as tolerates, >4kg above EDW
may need extra HD tomorrow
cont insulin for DKA
AVF functions well
Progress Note - Hemodialysis
-
Date of Service: March 10, 2024
Duration: 30 minutes and 3 hours
Potassium Bath: 2
Calcium Bath: 2.5
Opti-Dialyzer: 160
Ultrafiltration: Other (3kg)
Blood Flow: 400
Dialysate Flow: 600
Heparin: yesx2
EPO: no
[2024-03-10] MEDS: FLEXBUMIN 25% FOR HEMODIALYSIS 12.5 GRAMS IV (18:24)
[2024-03-10 18:45] LABS: Glucose - Point of Care 255 mg/dl (70-99)
[2024-03-10 19:51] LABS: Glucose - Point of Care 195 mg/dl (70-99)
--- NOTE | 2024-03-10 20:00 | PTCARENOTE ---
Received patient AAOx3, following commands, drowsy but arouses to verbal stimuli. No acute distress noted, patient complaining of 8/10 abdominal pain, tylenol given. Patient reported tylenol 'didn't help, can I have something else,' VETERINARIAN EPIDEMIOLOGIST aware, no new
orders. Afebrile, normal sinus, 80s-90s. BP 130s-150s/90s-100s. Patient reported feeling shaky and weak, BP checked and is stable, blood sugar checked and is stable. VETERINARIAN EPIDEMIOLOGIST aware. Weak palpable pedal pulses. HD done today. On 4 liters nasal cannula,
saturating 96%. Lung sounds diminished, crackles in the right base noted. On insulin gtt, checking Q1 per DKA protocol. Abdomen round, distended, tender to palpation. Anuric, no BM. Scabs throughout arms and legs. Left AV fistula positive bruit and
thrill. Right forearm #22 patent, WNL, insulin gtt infusing. BMP at 2200. Call luevano within reach.
[2024-03-10] MEDS: TYLENOL 650 MG PO (20:35)
[2024-03-10 20:48] LABS: Glucose - Point of Care 157 mg/dl (70-99)
[2024-03-10] MEDS: TIGAN 200 MG IM (21:49)
[2024-03-10 21:50] LABS: Glucose - Point of Care 140 mg/dl (70-99)
[2024-03-10 22:37] LABS: Glucose - Point of Care 126 mg/dl (70-99)
[2024-03-10 22:51] LABS: Blood Urea Nitrogen 34 mg/dl (9-20); Carbon Dioxide 28 mmol/L (22-30); Chloride 99 mmol/L (98-107); Estimated Creatinine Clearance 22 ml/min; Glucose 119 mg/dl (70-99); Potassium 4.4 mmol/L (3.5-5.1); Sodium 134 mmol/L (135-145); eGFR 16.43
[2024-03-10 23:04] LABS: Troponin I 0.063 ng/ml
[2024-03-10 23:15] LABS: Glucose - Point of Care 116 mg/dl (70-99)
[2024-03-11] VITALS (7 sets, daily range): BP systolic 114–142; BP diastolic 68–100; BMI 23.2
--- NOTE | 2024-03-11 00:12 | PTCARENOTE ---
Patient assessment unchanged from previous, insulin gtt on hold per protocol, RAILROAD HAND aware. Call luevano within reach.
[2024-03-11 00:43] LABS: Glucose - Point of Care 134 mg/dl (70-99)
[2024-03-11 01:34] LABS: Glucose - Point of Care 151 mg/dl (70-99)
[2024-03-11 02:41] LABS: Glucose - Point of Care 180 mg/dl (70-99)
[2024-03-11] MEDS: TIGAN 200 MG IM (03:37)
[2024-03-11 03:39] LABS: Blood Urea Nitrogen 36 mg/dl (9-20); Calcium 8.9 mg/dl (8.4-10.2); Carbon Dioxide 25 mmol/L (22-30); Chloride 96 mmol/L (98-107); Estimated Creatinine Clearance 18 ml/min; Glucose 178 mg/dl (70-99); Potassium 4.6 mmol/L (3.5-5.1); Sodium 134 mmol/L (135-145); eGFR 13.55
[2024-03-11 03:46] LABS: Glucose - Point of Care 184 mg/dl (70-99)
[2024-03-11 04:47] LABS: Glucose - Point of Care 169 mg/dl (70-99)
--- NOTE | 2024-03-11 04:52 | PTCARENOTE ---
Patient nauseous and gagging, tigan PRN given. Patient had a bowel movement. Checking blood sugars Q1. Otherwise patient assessment unchanged from previous.
[2024-03-11 05:48] LABS: Glucose - Point of Care 129 mg/dl (70-99)
[2024-03-11 06:11] LABS: Hematocrit 27.7 % (39.0-52.0); Hemoglobin 9.5 g/dL (13.0-18.0); Mean Corp Hgb Conc. 34.3 g/dL (33.0-37.0); Mean Corpuscular Hgb 31.8 pg (27.0-31.0); Mean Corpuscular Volume 92.6 fL (80.0-94.0); Mean Platelet Volume 10.1 fL (7.4-10.4); Platelet Count 133 10^3/uL (130-400); Red Blood Cell Count 2.99 10^6/uL (4.70-6.10); Red Cell Dist. Width 17.9 % (11.5-14.5); White Blood Cell Count 5.6 10^3/uL (4.8-10.8)
[2024-03-11 06:33] LABS: Troponin I 0.061 ng/ml
[2024-03-11] MEDS: TYLENOL 650 MG PO (06:48)
[2024-03-11 06:51] LABS: Glucose - Point of Care 156 mg/dl (70-99)
[2024-03-11 06:52] LABS: Blood Urea Nitrogen 29 mg/dl (9-20); Calcium 6.6 mg/dl (8.4-10.2); Carbon Dioxide 23 mmol/L (22-30); Chloride 109 mmol/L (98-107); Estimated Creatinine Clearance 24 ml/min; Glucose 127 mg/dl (70-99); Magnesium 1.5 mg/dl (1.6-2.3); Potassium 3.6 mmol/L (3.5-5.1); Sodium 137 mmol/L (135-145); eGFR 18.33
--- NOTE | 2024-03-11 06:54 | W.PN.INTV ---
Today's Communication / Plan
Recommendations
Continue with insulin therapy, gap improved, blood sugars improved
Diabetic PUBLIC WORKS INSPECTOR consult noted, insulin pump to be filled
EKG back to baseline
Out of bed to chair, ambulate
Avoid narcotic therapy
Disposition efforts
Assessment
-
Patient is a 33-year-old male with past medical history of diabetes melitis type I (on insulin pump), ESRD on hemodialysis MWF, hypertension, with multiple ED visits over the past week, noncompliance with dialysis and diabetic therapy, now presents
with abdominal pain, nausea. Blood sugar greater than 600, admitted with DKA, admitted to ICU 03/10/2024
Acute DKA
Blood sugar greater than 900
Metabolic acidemia
Chronic abdominal pain/nausea/emesis, waxing and waning
Gastroparesis
Hyperkalemia
Hyponatremia
chronic, baseline sodium 129-134
Elevated troponin
Chronic right pleuroparenchymal process
s/p rt Thora 02/17/24, -1800cc transudate
Cytology negative
Anemia, hemoglobin 9.5.
Admission hemoglobin 11.2
Conditions present prior to admission
History of DM type I
Insulin pump, history of malfunction, noncompliance
End-stage renal disease
Secondary to diabetic nephropathy
Noncompliant with dialysis
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
PA pressure 65
Ascites, small pericardial effusion per prior imaging
Suspected sleep disordered breathing ongoing tobacco use
History of hypoxia on home oxygen
Details unclear, set up through [facility]
Anxiety/depression
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
Reported history of PE 2020, treated 6m OAC
History of medical noncompliance
Ongoing tobacco use, 10+ pack year
Plan/recommendations
At this time, patient appears to be nontoxic.
Insulin currently held, blood sugars improved
Patient requesting pain medication
Wheezing has resolved on exam
Status post dialysis 03/10
Echocardiogram February 2024 normal LV function with RV pressure overload and RV dilatation, PA pressure 50. This appears to be chronic and stable. No comment on right ventricular function
Moving forward
Continue with supportive care
Diabetic PUBLIC WORKS INSPECTOR has been consulted, to help with insulin pump. Unfortunate patient noncompliant with refilling pump
Continue with close monitoring of blood sugar, adjusting insulin as appropriate
Unfortunately, patient with significant noncompliance in the past per reviewing records
Hyperkalemia has improved
Replete magnesium
Reviewed CT abdomen/. Moderate right-sided pleural effusion with likely trapped lung physiology, area of pleural thickening
This appears to be chronic as far back as April 2023
Was not present on CT chest April 2021
EKG reviewed.
Prolonged QT noted on admission noted. Today's EKG improved, QT 457
EKG appears to be more consistent with baseline, improvement in right axis. Suspect admission EKG findings due to volume overload
Patient apparently with history of signing out AMA after not receiving narcotic therapy
No narcotic therapy given nausea/emesis, gastroparesis
Advance diet as able once blood sugars improved. No gap present at this time
DVT prophylaxis: Subcutaneous heparin every 8 hours
GI prophylaxis: On pantoprazole
Reviewed with critical care nursing, respiratory care, case management, pharmacy, primary service
Disposition efforts
Data:
TTE 02-18-2024:
Normal left ventricular systolic function. LV ejection fraction is 60% by
volumetric assessment.
Mild concentric left ventricular hypertrophy.
The right ventricle is dilated. Septum flattened in systole consistent with RV
pressure overload.
Subjective Dataa
Subjective Data
Date of Service:
Date of Service: March 11, 2024
Subjective:
Patient 'feels like crap'. Not very forthcoming with regards to specific complaints. Complaining of abdominal pain, nausea. Sleeping. Insulin drip presently off
Objective Data
Data Reviewed
Vital Signs / I&O / Oxygen:
Vital Signs
Temp Pulse Resp BP Pulse Ox
98.4 F 95 20 138/87 96
03/11/24 04:00 03/11/24 06:00 03/11/24 06:00 03/11/24 06:00 03/11/24 06:00
Intake and Output
03/09/24 03/10/24 03/11/24
06:59 06:59 06:59
Intake Total 38.0 / 38.0
Balance 38.0 / 38.0
SaO2 96
Nasal Cannula flow liters per 4
minute
Physical Exam
General: Comfortable
HEENT: Normocephalic
Cardiovascular: S1-S2, Regular Rhythm, Murmur (n), Rub (n) and Peripheral Edema (n)
Respiratory: Wheeze (n), Crackles (n) and Rhonchi (n)
GI: Soft and Non Tender
Neurology: Lethargic (Sleeping, arousable)
Skin: Cyanosis (n), Rash (n) and Other (Multiple lesions upper extremities)
Labs/Micro/Reports
Lab Data
03/11/24 05:37
[2024-03-11 08:02] LABS: Glucose - Point of Care 127 mg/dl (70-99)
[2024-03-11 08:56] LABS: Glucose - Point of Care 103 mg/dl (70-99)
--- NOTE | 2024-03-11 09:04 | PN.DE.MGMTRT ---
Insulin Management
- -
03/11/2024: Diabetes Management Consult
33 year old male well known to me from previous admissions. PMH: ESRD on HD (MWF), T1DM for 18 years. He is currently using a Medtronic 770 pump with NovoLog insulin and uses the Guardian sensor.
Pt presented to ED c/o weakness, abd pain, N/V but no diarrhea. This is a chronic issue for him. He is noted for multiple ED visits / hospitalizations with similar complaints. Patient was found to be in DKA and started on insulin infusion. Patient
missed 2 last dialysis session.
Pt seen in room, awake, A/O x3, sitting up in bed, comfortably w/o complaints.
States he feels a lot better, no more nausea but has no appetite and states he is not hungry.
GAP has closed x2 BMPs. Glucose is stable w/o hypoglycemia, range of 103 to 184, requiring 0.5 to 1 units of insulin/hr.
His insulin pump is at bedside but reports he has no insulin nor infusion set or supplies to resume use of his insulin pump.
Most recent POC is 103. Will transition off insulin drip. Give Lantus 12 units now. Turn insulin drip off 1 hr after giving Lantus
Start NovoLog 5 units AC with moderate corrective. Lantus 12 units @ HS.
Diabetes plan of care discussed with pt and Nurse.
Diabetes History
- -
Type of Diabetes: 1
Pre-Admission Diabetes Regimen
03/10/24 03/10/24 03/10/24
12:18 13:04 15:56
Creatinine Cancelled 10.5 H* 10.2 H*
03/10/24 03/10/24 03/11/24
20:00 22:27 01:30
Creatinine Cancelled 4.6 H* Cancelled
03/11/24 03/11/24
02:29 05:37
Creatinine 5.4 H* 4.2 H*
Insulin Pump Settings
IP Diabetes Regimen
03/10/24 03/10/24 03/10/24
12:14 12:18 13:04
Glucose Cancelled 915 H*
POC Glucose > 600 H*
03/10/24 03/10/24 03/10/24
15:56 17:29 18:34
Glucose 734 H*
POC Glucose 395 H 255 H
03/10/24 03/10/24 03/10/24
19:39 20:00 20:37
Glucose Cancelled
POC Glucose 195 H 157 H
03/10/24 03/10/24 03/10/24
21:39 22:26 22:27
Glucose 119 H
POC Glucose 140 H 126 H
03/10/24 03/11/24 03/11/24
23:03 00:32 01:24
Glucose
POC Glucose 116 H 134 H 151 H
03/11/24 03/11/24 03/11/24
01:30 02:29 03:35
Glucose Cancelled 178 H
POC Glucose 180 H 184 H
03/11/24 03/11/24 03/11/24
04:35 05:36 05:37
Glucose 127 H
POC Glucose 169 H 129 H
03/11/24 03/11/24 03/11/24
06:40 07:51 08:45
Glucose
POC Glucose 156 H 127 H 103 H
Patient Education
[2024-03-11 10:18] LABS: Glucose - Point of Care 147 mg/dl (70-99)
[2024-03-11] MEDS: NORVASC 10 MG PO (10:35)
[2024-03-11 10:36] LABS: Blood Urea Nitrogen 39 mg/dl (9-20); Calcium 9.2 mg/dl (8.4-10.2); Carbon Dioxide 27 mmol/L (22-30); Chloride 95 mmol/L (98-107); Estimated Creatinine Clearance 17 ml/min; Glucose 149 mg/dl (70-99); Sodium 132 mmol/L (135-145); eGFR 11.94
[2024-03-11] MEDS: PROTONIX IV 40 MG IV (10:36)
[2024-03-11] MEDS: COREG 25 MG PO (10:36)
[2024-03-11] MEDS: LASIX 40 MG PO (10:40)
[2024-03-11] MEDS: NSS (PRESERVATIVE FREE) 10 ML IV (10:41)
--- NOTE | 2024-03-11 10:58 | W.PN.NEPH.PH ---
Today's Communication / Plan
-
HD if pt stays
Assessment/Plan
-
Impression:
ESRD MWF ([facility]),
left UE AVF
DKA
Hyperkalemia
Acute Volume Overload and Hyperkalemia secondary to Missed HD Treatments
Chronic Abdominal Pain / Gastroparesis
Pulmonary hypertension
Polysubstance abuse
Anxiety
Anemia
Right pleural effusion--s/p R throa for pleural effusion with 1.8L transudate 02/17/24
Plan:
A/w DKA and vol overload
severe hyperkalemia from DKA
s/p HD on 03/10
DKA seem resolved
offered to have extra HD today since he missed on Friday and also for UF
pt initially accepted HD but few min later dressed up to leave
If he stays need strict renal diet and FR 40 ounces/day
-Glucose control per primary team
If he continues this behavior of non compliance and drug seeking, unfortunately we cant help him and he is at high risk of mortality-d/w pt
hope he understands, He previously had many discussions with multiple providers regarding this
d/w nursing
-
-
Date of Service: March 11, 2024
CC / HPI / ROS
-
Chief Complaint:
ESRD
History of Present Illness:
K normal, A gap closed
BP stable
no fever, mg low at 1.5,kaye low but repeat normal
hb low at 9.5
Review of Systems:
still with nausea, decreased po intake
chr abd pain
no fever
Labs
-
Labs:
WBC 5.6 10^3/uL (4.8-10.8) 03/11/24 05:37
RBC 2.99 10^6/uL (4.70-6.10) L 03/11/24 05:37
Hgb 9.5 g/dL (13.0-18.0) L 03/11/24 05:37
Hct 27.7 % (39.0-52.0) L 03/11/24 05:37
Plt Count 133 10^3/uL (130-400) D 03/11/24 05:37
eGFR 11.94 03/11/24 10:03
Albumin 3.7 g/dl (3.5-5.0) 03/10/24 13:04
Physical Exam
-
Vital Signs:
Vital Signs
Temp Pulse Resp BP Pulse Ox
98.5 F 90 24 142/100 97
03/11/24 08:09 03/11/24 10:00 03/11/24 10:00 03/11/24 08:09 03/11/24 07:00
Cardiovascular:: Regular rate and rhythm
Respiratory:: Bilateral: CTA
Lung Excursion:: Normal
Abdomen:: Nontender and Soft
Extremity Edema:: None: Bilateral: (trace)
Randhawa Catheter: No
--- NOTE | 2024-03-11 10:58 | PTCARENOTE ---
patient leaving against medical advice. Due to Lantus 12 units and Magnesium 2gm, not administered patient refused. patient understand that further care and follow-up have been recommended. 2 hrs of additional dialysis tx recommended. patient
refused. Rt arm and hand x2 peripheral lines removed, pressure applied prior to d/c . patient stated that he will call ub[employer] patient transported to main lobby via w/c
--- NOTE | 2024-03-11 11:19 | W.PN.HOSP.TC ---
Today's Communication/Plan
-
LEFT AMA
Assessment / Plan
Assessment / Plan
#DKA secondary to noncompliance
#IDDM
Status post IV insulin with closure of anion gap
Patient stated he ran out of insulin from his insulin pump and did not refill it even though he has meds at home
Diabetic nurse petitioner consulted
Plan was to start patient on Lantus DC off drip
#ESRD on hemodialysis M, W, F
#Hyperkalemia secondary to missed dialysis
-Missed dialysis
-Status post temporizing measures in the ER.
-Nephrology consulted for dialysis
-Continue Lasix
-Status post emergent hemodialysis on admission with improvement in potassium
# Nausea and vomiting likely secondary to DKA versus gastroparesis
-Monitor symptoms for now
-tight glucose control
# Troponin elevation likely demand in the setting of DKA
#Chronic troponin elevation in setting of ESRD on hemodialysis
# Recurrent right pleural effusion
-Check chest x-ray. May need aggressive volume removal via hemodialysis and/or thoracentesis
#Chronic anemia of renal disease
-Hemoglobin stable
#Essential hypertension
-Continue amlodipine
-Continue Coreg
#Severe pulmonary hypertension
#Anxiety/depression
-Continue oxcarbazepine, trazodone
#Tobacco abuse
-Smokes half pack of cigarettes per day
Full code
DVT prophylaxis�heparin
Patient was evaluated early on in the morning where he agreed to continue with medical management. However later on received text from RN that patient dressed himself up and left AGAINST MEDICAL ADVICE before I can come and talk to him.
Nephrology and earth science laboratory technician correspondence noted and plan was for additional hemodialysis session. Patient left before myself and go and talk to him and convinced to stay in the hospital for further aggressive medical management including tight
glucose control and hemodialysis.
Anticipated Discharge: Today
Subjective/Interval History
-
Date of Service: March 11, 2024
Patient currently resting in bed states of nausea
Overnight patient anion gap closed
Insulin drip has been held
Patient glucose control significantly
Received hemodialysis yesterday
Objective Data
-
Labs:
Laboratory Results
03/11/24 03/11/24 03/11/24
01:30 02:29 05:37
WBC 5.6
Hgb 9.5 L
Hct 27.7 L
Plt Count 133 D
Sodium Cancelled 134 L 137
Potassium Cancelled 4.6 3.6
Chloride Cancelled 96 L 109 H
Carbon Dioxide Cancelled 25 23
BUN Cancelled 36 H 29 H
Creatinine Cancelled 5.4 H* 4.2 H*
Glucose Cancelled 178 H 127 H
Calcium Cancelled 8.9 6.6 L* D
03/11/24 03/11/24 03/11/24
10:03 14:00 18:00
WBC
Hgb
Hct
Plt Count
Sodium 132 L Cancelled Cancelled
Potassium 5.0 D Cancelled Cancelled
Chloride 95 L Cancelled Cancelled
Carbon Dioxide 27 Cancelled Cancelled
BUN 39 H Cancelled Cancelled
Creatinine 6.0 H* Cancelled Cancelled
Glucose 149 H Cancelled Cancelled
Calcium 9.2 D Cancelled Cancelled
Vital Signs:
Vital Signs
Temp Pulse Resp BP Pulse Ox
98.5 F 90 24 142/100 97
03/11/24 08:09 03/11/24 10:00 03/11/24 10:00 03/11/24 08:09 03/11/24 07:00
I&O
03/10/24 03/11/24 03/12/24
06:59 06:59 06:59
Intake Total 38.0 / 38.5 1.0 / 1.0
Balance 38.0 / 38.5 1.0 / 1.0
Physical Exam
-
General: No Apparent Distress
HEENT: Normocephalic and Atraumatic
Respiratory: Clear to Auscultation (Significant better aeration compared to admission)
Cardiac: Regular Rhythm and S1/S2; Negative Murmur, Rub or Gallop
GI: Soft, Nontender, Nondistended and Normal Bowel Sounds; Negative Organomegaly
Rectal: Deferred by Provider
Musculoskeletal: No Clubbing, No Cyanosis, No Edema and Other (Left upper extremity AV fistula)
Skin: Negative Rash
Neuro: Awake and Nonfocal/Grossly Intact
--- NOTE | 2024-03-11 11:22 | CM ---
CM following re: discharge planning.
Discussed in rounds, reviewed pt's chart, met with pt.
Pt is a 33 year old male, admitted with primary dx of DKA.
Pt is well know to this CM from previous admissions. 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 Pt was very suspicious during interview answering questions.
Per RN pt left AMA.
--- NOTE | 2024-03-11 11:23 | W.DCSUMMARY ---
Discharge Summary
Discharge Data
Date of Admission: 03/10/24
Date of Discharge: 03/11/24
-
Pending Results: No
Hospital Course
33 year old male with past medical history of type 1 diabetes on insulin pump, diabetic nephropathy, end stage renal disease on hemodialysis M, W, F, chronic right-sided pleural effusion, chronic abdominal pain secondary to gastroparesis,
hypertension, severe pulmonary hypertension, alcohol use disorder, anxiety/depression, presented with weakness and shortness of breath and nausea and vomiting. Upon admission patient was found to be in severe DKA. Patient said he ran out of
insulin from his insulin pump and never refilled it. Patient was started on DKA protocol with IV insulin infusion and admitted to medical ICU. Patient also with severe hyperkalemia secondary to missing 2 hemodialysis session prior to arrival.
Patient was admitted to medical ICU and underwent emergent hemodialysis. Following removal was performed by HD. Patient potassium stabilized. Patient blood glucose continue to trend down. Plan was to undergo additional session of hemodialysis
today on 03/11 However later on received text from RN that patient dressed himself up and left AGAINST MEDICAL ADVICE before I can come and talk to him. Nephrology and speech teacher correspondence noted and plan was for additional hemodialysis session.
Patient left before myself can go and talk to him and convinced to stay in the hospital for further aggressive medical management including tight glucose control and hemodialysis. Of note patient left AGAINST MEDICAL ADVICE and this is 1 of many
multiple prior hospitalization. Due to patient noncompliant with medical management this puts him at extremely high risk of mortality which was conveyed to him by multiple physician.
Discharge Plan
-
Patient Disposition: Against Medical Advice
Referrals:
Casper Arroyo MD [Family Provider] -
Prescriptions:
No Action
furosemide 40 MG tablet
40 mg PO BID
carvedilol [Coreg] 25 MG tablet
25 mg PO BID
amlodipine 10 MG tablet
10 mg PO DAILY
metoclopramide HCl [Reglan] 10 mg Tablet
10 mg PO TIDPRN PRN (Reason: nausea)
oxcarbazepine 150 mg tablet
150 mg PO DAILYPRN PRN (Reason: mental health)
trazodone 50 mg Tablet
25 mg PO HSPRN PRN (Reason: sleep)
Patient Own Insulin Pump
0 units SC .VIA PUMP
Patient Comments:
03/05/2024, pt. uses insulin pump; pt. states to use roughly 70 units of Novolog 100 unit/ml every day and replaces his insulin Q3D; pt. unsure when he lasted changed his insulin.
Discharge Orders:
Discharge Patient (As Directed); Ordered 03/11/24
Ordered By: Orville Mckenzie
Discharge Date and Time
Discharge Date/Time: 03/11/24 11:15
Print Language: LITHUANIAN
== END 2024-03-11 11:15 | disposition left against medical advice (07) | DRG 637 ==
LOC: ICU 14:52
PROVIDERS: Emergency Medicine; Nurse Practitioner Family; Physician Assistant Medical; ADMITTING PHYSICIAN Hospitalist; CONSULT PHYSICIAN Internal Medicine; CONSULT PHYSICIAN Internal Medicine Critical Care Medicine; EMERGENCY PHYSICIAN Emergency Medicine; FAMILY PHYSICIAN Internal Medicine
PROC: 5A1D70Z Performance of Urinary Filtration, Intermittent, Less than 6 Hours Per Day (ICD-10-PCS; 2024-03-10)
DX: E10.10 Type 1 diabetes mellitus with ketoacidosis without coma (principal); N18.6 End stage renal disease; E87.1 Hypo-osmolality and hyponatremia; R18.8 Other ascites; E10.22 Type 1 diabetes mellitus with diabetic chronic kidney disease; F10.10 Alcohol abuse, uncomplicated; F32.A Depression, unspecified; F41.9 Anxiety disorder, unspecified; Z96.41 Presence of insulin pump (external) (internal); E10.43 Type 1 diabetes mellitus with diabetic autonomic (poly)neuropathy; K31.84 Gastroparesis; E87.5 Hyperkalemia; F17.210 Nicotine dependence, cigarettes, uncomplicated; T38.3X6A Underdosing of insulin and oral hypoglycemic [antidiabetic] drugs, initial encounter; Z79.4 Long term (current) use of insulin; Z99.2 Dependence on renal dialysis; Z91.199 Patient's noncompliance with other medical treatment and regimen due to unspecified reason; Z91.148 Patient's other noncompliance with medication regimen for other reason; Z91.158 Patient's noncompliance with renal dialysis for other reason; Z86.711 Personal history of pulmonary embolism
CPT/HCPCS: 71045; 80048; 80053; 82010; 82805; 82962; 83735; 84484; 85025; 85027; 93005; 94640; 96365; 96375; 96376; 99291; G0257; P9047

== ENCOUNTER 2024-03-11 14:00 | Emergency (ER) | payer OTHER, SELFPAY ==
[2024-03-11 14:04] VITALS: BP 105/57
--- NOTE | 2024-03-11 17:21 | ED.GENMED ---
History of Present Illness
General
Chief Complaint: Chest Pain
Source: patient and previous hospital records
Exam Limitations: none
Time Seen by Provider: 03/11/24 16:32
Nursing documentation reviewed up to this point in time: agreed with
Travel History
Have you had any contact with someone who has COVID-19?: No
Do you have any symptoms of coronavirus? Fever > 100 degrees, chills, cough, shortness of breath, sore throat, loss of taste or smell, muscle aches, or headache?: No
History of Present Illness
History of Present Illness:
Patient is a 33-year-old man who was recently admitted to the ICU for DKA. After reviewing hospitalist progress note, it is noted that the patient left AGAINST MEDICAL ADVICE earlier today. Patient reports that shortly after getting home, he
developed chest pain across his chest, which prompted him to come back to the ED. Patient reports that he was able to get insulin for his insulin pump. Patient is requesting Dilaudid for pain. Explained to patient that we would like to do a
workup before giving him Dilaudid. With that, patient adamantly wanted to leave. He reports that if he is not getting pain medication, he is not willing to stay. I told patient that we want to evaluate him for possible blood clot or a cardiac
problem, which could lead to disability or , but patient adamantly wants to go home. He understands he is leaving against AMA. Patient is alert and oriented x 3.
Past History
Past History
ED Past Medical History: CHF, HTN, IDDM, Renal failure (Dialysis M-W-F) and Other (ESRD, PE, Contipation, ESRD, TR, pulmonary hypertension, congestive heart failure, etc. chronic abdominal pain/gastroparesis)
ED Past Surgical History: Appendectomy and Other (Left AV fistula, biliary drain removed)
Patient has exhibited threatening behavior?: No
PSI?: No
Social History
Tobacco: Smoker
Alcohol: None
Drug: None
Personal: Single
Living: with family
Employment: Other
Family History
Family History: Other
Review of Systems
Review of Systems
Allergies reviewed?: Yes
All Other Systems: ROS reviewed and negative except as documented in HPI and ROS
Constitutional: Reports no symptoms
EENT: Reports no symptoms
Respiratory: Reports trouble breathing
Cardiac: Reports chest pain
ABD/GI: Reports no symptoms
: Reports no symptoms
Musculoskeletal: Reports no symptoms
Skin: Reports no symptoms
Neurological: Reports no symptoms
Endocrine: Reports no symptoms
Hematologic/Lymphatic: Reports no symptoms
Psychiatric: Reports no symptoms
Phy Exam
Physical Exam
Physical Exam:
Physical Exam
General: no apparent distress, not acutely ill. Patient appears comfortable
Neck: supple.
Heart: Appears well-perfused
Lungs: no acute respiratory distress.
Scores
Heart Score for Chest Pain Patients
STEMI patient?: Not applicable
Course
Orders/Labs/Results
Orders:
Orders
03/11/24 14:02
ECG [Electrocardiogram (*1)] Urgent
Reason for Study: Chest Pain
EKG- Treatment ONCE
Vital Signs
Initial and Last Documented VS:
Initial Vital Signs
Temp Pulse Resp BP Pulse Ox
98.6 F 79 20 105/57 92
03/11/24 14:04 03/11/24 14:04 03/11/24 14:04 03/11/24 14:04 03/11/24 14:04
Last Documented Vital Signs
Temp Pulse Resp BP Pulse Ox
98.6 F 79 20 105/57 92
03/11/24 14:04 03/11/24 14:04 03/11/24 14:04 03/11/24 14:04 03/11/24 14:04
MDM/Problems Addressed
Differential Diagnosis Includes:
Acute coronary syndrome, PE, pleural effusion
MDM/Problems Addressed:
Patient presents with acute chest pain
Chronic conditions affecting care: DM and HTN
*Pulse Oximetry
Patient hypoxic: no
*EKG
Interpreted by ED Provider?: Yes
Interpretation: abnormal
Comparison EKG: changes noted (longer QT)
Rate: normal
Rhythm: sinus
[place]: normal axis
Interval: long QT
QRS Pattern: normal QRS
Ischemia: non-specific ST changes
*Frame Fixer Interpretation
Rate: Frame Fixer- N/A
*Critical Care Note
Total Time (30-74mins, 75-104mins- exclusive of procedures): Not Applicable
Data Reviewed
Review of Other/Old Records Reveals: Labs (Hemoglobin checked on this morning. It was low at 9.5)
ED Attending Note
-
Portions of this chart may have been created with voice recognition software.� Occasional wrong word or��sound alike� substitutions may have occurred due to the inherent limitations of voice recognition software.
Discharge Plan
Departure
Patient Disposition: Against Medical Advice
Date of Disposition: 03/11/24
Time of Disposition: 17:19
Patient with high blood pressure during this ER visit?: Yes
Condition: Fair
Covid-19: Not Applicable
Discharge Problem:
Chest pain
Instructions: Chest Pain PCP Follow Up
Prescriptions:
No Action
furosemide 40 MG tablet
40 mg PO BID
carvedilol [Coreg] 25 MG tablet
25 mg PO BID
amlodipine 10 MG tablet
10 mg PO DAILY
metoclopramide HCl [Reglan] 10 mg Tablet
10 mg PO TIDPRN PRN (Reason: nausea)
oxcarbazepine 150 mg tablet
150 mg PO DAILYPRN PRN (Reason: mental health)
trazodone 50 mg Tablet
25 mg PO HSPRN PRN (Reason: sleep)
Patient Own Insulin Pump
0 units SC .VIA PUMP
Patient Comments:
03/05/2024, pt. uses insulin pump; pt. states to use roughly 70 units of Novolog 100 unit/ml every day and replaces his insulin Q3D; pt. unsure when he lasted changed his insulin.
Referrals:
Casper Arroyo MD [Family Provider] -
Interventions
Interventions:
*General Assessment Last Done: 03/11/24 17:10
*ED COVID-19 Vaccine History Last Done: 03/11/24 14:04
*Nursing Disposition Last Done: 03/11/24 17:34
ED- Cardiac Assessment Last Done: 03/11/24 17:10
Discharge Date and Time
Discharge Date/Time: 03/11/24 17:10
Print Language: CAPE VERDE[place]
--- NOTE | 2024-03-11 17:26 | EDRN ---
Patient stated that he left the hospital this morning and as soon as he got home he developed chest pain. Patient with continued c/o nausea and vomiting. at bedside assessing the patient. Patient stated 'Can I have something for the
nausea and pain?' told the patient that she would given him something but it would not be a narcotic pain medicine. Patient stated 'Why not?' Dr. Iqbal told patient that she has concerned about his heart and was not treating it with
a narcotic pain medicine. Patient stated 'Fine.' and got up off the stretcher and started to get dressed. Patient signed AMA form.
== END 2024-03-11 17:10 | disposition left against medical advice (07) ==
LOC: EMR 14:00
PROVIDERS: EMERGENCY PHYSICIAN Emergency Medicine; FAMILY PHYSICIAN Internal Medicine
DX: R07.9 Chest pain, unspecified (principal); F17.200 Nicotine dependence, unspecified, uncomplicated; I10 Essential (primary) hypertension; E11.9 Type 2 diabetes mellitus without complications
CPT/HCPCS: 99283; 93005

== ENCOUNTER 2024-03-13 09:19 | Inpatient (IN) | payer OTHER, SELFPAY ==
[2024-03-13] VITALS (67 sets, daily range): BP systolic 60–206; BP diastolic 30–158; BMI 20.8
[2024-03-13 06:42] LABS: Glucose - Point of Care 392 mg/dl (70-99)
[2024-03-13] MEDS: NSS 500 IV (06:46)
--- NOTE | 2024-03-13 06:58 | ED.GENMED ---
History of Present Illness
General
Chief Complaint: Change Level of Consciousness
Source: patient and ambulance crew
Exam Limitations: none
Time Seen by Provider: 03/13/24 06:34
Nursing documentation reviewed up to this point in time: agreed with
Travel History
Have you had any contact with someone who has COVID-19?: Unable to Answer
Do you have any symptoms of coronavirus? Fever > 100 degrees, chills, cough, shortness of breath, sore throat, loss of taste or smell, muscle aches, or headache?: Unable to Answer
History of Present Illness
History of Present Illness:
The patient is a 33-year-old man with a past medical history of insulin-dependent diabetes, blindness, and end-stage renal disease on hemodialysis who called 911 due to complaints of feeling nauseous. Patient arrives hypotensive and stuporous.
Patient is recurrently asking for Dilaudid. He is a poor historian. Patient he denies chest pain. He reports severe nausea. Patient has a history of noncompliance. He reports he has not been dialyzed for 4 days.
Past History
Past History
ED Past Medical History: CHF, HTN, IDDM, Renal failure (Dialysis M-W-) and Other (ESRD, PE, Contipation, ESRD, TR, pulmonary hypertension, congestive heart failure, etc. chronic abdominal pain/gastroparesis)
ED Past Surgical History: Appendectomy and Other (Left AV fistula, biliary drain removed)
Patient has exhibited threatening behavior?: No
PSI?: No
Social History
Tobacco: Smoker
Alcohol: None
Drug: None
Personal: Single
Living: with family
Employment: Other
Family History
Family History: Other
Review of Systems
Review of Systems
Allergies reviewed?: Yes
Other source history: ambulance crew
All Other Systems: Not applicable (Limited, patient poor historian)
Constitutional: Reports fatigue
EENT: Reports no symptoms
ABD/GI: Reports abdominal pain, nausea, vomiting and anorexia
Musculoskeletal: Reports back pain
Skin: Reports no symptoms
Neurological: Reports no symptoms
Endocrine: Reports no symptoms
Hematologic/Lymphatic: Reports no symptoms
Psychiatric: Reports no symptoms
Phy Exam
Physical Exam
Physical Exam:
Physical Exam
General: Patient arrives disheveled, flushed, sleepy but answers most questions with prompting
Neck: supple. no meningeal signs. normal psoterior pharynx
Heart: s1/s2 regular rate and rhythm, no murmur. equal radial pulses.
Lungs: no acute respiratory distress. clear bilaterally
Abdomen: normal bowel sounds. not tender. no CVAT
Neuro: alert and orientedx3. no focal neurological deficits
Skin: no rash
Psychiatric: Cooperative
Extremities: no edema. no calf tenderness. negative homans. good distal pulses
Course
Orders/Labs/Results
Orders:
Orders
03/13/24 06:41
Drug Screen, Urine [Urine Drug Abuse Screen] Urgent
Urinalysis Reflex To Culture Urgent
03/13/24 06:43
0.9% Sodium Chloride 500 ml [Nss] 500 ml IV BOLUS
03/13/24 06:44
Electrocardiogram (*1) Urgent
Reason for Study: Fatigue / Weakness
EKG- Treatment ONCE
03/13/24 06:47
Ondansetron Injectable [Zofran] 4 mg IV NOW STA
03/13/24 06:58
Alcohol Urgent
Basic Metabolic Panel Urgent
Complete Blood Count/With Diff Urgent
Creatine Phosphokinase Urgent
Comment: ADD ON
Lipase Urgent
Blood Culture Q30M
VAISHALI Source: Blood/Venous
Specimen Description:
03/13/24 06:59
Lactic Acid Q4H
Comment: CANCEL 2nd LACTIC ACID IF 1st LACTIC ACID IS LESS THAN 2
03/13/24 07:00
Lactic Acid Q4H
Comment: CANCEL 2nd LACTIC ACID IF 1st LACTIC ACID IS LESS THAN 2
Troponin I Urgent
03/13/24 07:36
0.9% Sodium Chloride 1000 ml [Nss] 1,000 ml IV BOLUS
03/13/24 07:40
Add On- LAB Urgent
Tests Added?: total creatine phosphokinase
03/13/24 07:47
Ketorolac [Toradol] 15 mg IV NOW STA
03/13/24 08:58
Potassium Urgent
Blood Culture Q30M
VAISHALI Source: Blood/Venous
Specimen Description:
03/13/24 09:04
Admit/Transfer Patient As Directed
Co-Sign Provider:
Level of Care: Inpatient admission
Assign to:: ICU
Physician / Group: liu/hospitalist
Diagnosis: DKA/N/V/Hypotension
Reason for Hospitalization: DKA/N/V/Hypotension
Expected length of stay greater than two midnights?: Yes
ELOS- Estimated Length of Stay in days: 3
I certify the patient meets the requirements for IP care: Yes
03/13/24 09:05
Code Status As Directed
Resuscitation Status: Full Code
Abnormal Lab Results
03/13/24 03/13/24 03/13/24
06:42 06:58 06:59
RBC 3.72 L 10^6/uL
(4.70-6.10)
Hgb 11.9 L D g/dL
(13.0-18.0)
Hct 36.3 L %
(39.0-52.0)
MCV 97.6 H fL
(80.0-94.0)
MCH 32.0 H pg
(27.0-31.0)
MCHC 32.8 L g/dL
(33.0-37.0)
RDW 18.6 H %
(11.5-14.5)
Abs Immat Gran (auto) 0.1 H 10^3/uL
(0-0.05)
Absolute Lymphs (auto) 0.9 L 10^3/uL
(1.2-3.4)
Immature Gran % 1.1 H %
(0-0.5)
Lymphocytes % 15.8 L %
(20.5-51.1)
Sodium 132 L mmol/L
(135-145)
Potassium
Chloride 92 L mmol/L
(98-107)
Carbon Dioxide 12 L* mmol/L
(22-30)
BUN 29 H mg/dl
(9-20)
Creatinine 5.9 H* mg/dL
(0.7-1.3)
Glucose 401 H mg/dl
(70-99)
Lactic Acid 6.7 H* mmol/L
(0.7-2.0)
Calcium 8.2 L mg/dl
(8.4-10.2)
Creatine Kinase 223 H U/L
(55-170)
Troponin I
POC Glucose 392 H mg/dl
(70-99)
03/13/24 03/13/24
07:00 08:58
RBC
Hgb
Hct
MCV
MCH
MCHC
RDW
Abs Immat Gran (auto)
Absolute Lymphs (auto)
Immature Gran %
Lymphocytes %
Sodium
Potassium 5.6 H mmol/L
(3.5-5.1)
Chloride
Carbon Dioxide
BUN
Creatinine
Glucose
Lactic Acid
Calcium
Creatine Kinase
Troponin I 0.065 H* ng/ml
POC Glucose
03/13/24 06:58
03/13/24 08:58
Vital Signs
Initial and Last Documented VS:
Initial Vital Signs
Pulse Resp BP
75 19 73/49
03/13/24 06:34 03/13/24 06:34 03/13/24 06:34
Last Documented Vital Signs
Pulse Resp BP Pulse Ox
151 16 90/62 100
03/13/24 10:30 03/13/24 10:30 03/13/24 10:30 03/13/24 10:20
MDM/Problems Addressed
Differential Diagnosis Includes:
DKA, hyponatremia, acute opioid intoxication, intracranial hemorrhage
MDM/Problems Addressed:
Patient presents with acute hypotension and lethargy
Chronic conditions affecting care: DM and Kidney disease
Acute Exacerbation and/or Progression of Chronic Illness:
Patient likely is acutely hyperglycemic
*Radiology
Radiology exam reviewed: preliminary read by ED provider (Tube in good placement. Chest x-ray reviewed by me. Pleural effusion present)
*Pulse Oximetry
Patient hypoxic: no
*EKG
Interpreted by ED Provider?: Yes
Interpretation: abnormal
Comparison EKG: changes noted
Rate: normal
Rhythm: sinus
[place]: normal axis
Interval: long QT
QRS Pattern: normal QRS
Ischemia: ST depression
*Autocad Draftsman Interpretation
Rate: normal
Interpretation: normal
Rhythm: sinus
*Critical Care Note
Total Time (30-74mins, 75-104mins- exclusive of procedures): 76 min
comment:
76 minutes of critical care given to the patient including review of his recent hospitalization, reviewing his labs, EKG, chest x-ray, discussing the case with the hospitalist, and reassessing his mental status, heart rate and blood pressure
multiple times
Data Reviewed
Review of Other/Old Records Reveals: Discharge Summary (Discharge summary reviewed from hospitalist from 03/11/2024 when patient was admitted for DKA)
Source: ambulance crew
Update Note
Update Note:
I was called to the room because patient became increasingly unresponsive and bradycardic. Patient quickly went from sinus bradycardia to PEA arrest. Chest compressions started. Epinephrine, bicarb and calcium given 3 times with return of pulses.
I suspect this is due to patient's profound acidemia
ED Attending Note
-
Portions of this chart may have been created with voice recognition software.� Occasional wrong word or��sound alike� substitutions may have occurred due to the inherent limitations of voice recognition software.
Discharge Plan
Departure
Patient Disposition: Admit
Date of Disposition: 03/13/24
Time of Disposition: 07:49
Admit to: ICU
Presentation/result/management discussed w/ accepting MD/DO: Hospitalist
Patient with high blood pressure during this ER visit?: No
Condition: Critical
Covid-19: Not Applicable
Discharge Problem:
PEA cardiac arrest, Acute hyperkalemia, Acute metabolic acidosis, Diabetic ketoacidosis, Acute metabolic encephalopathy
Interventions
Interventions:
*Risk Screen - Suicide Last Done: 03/13/24 09:26
*General Assessment Last Done: 03/13/24 06:34
*Neglect/Abuse Screening Last Done: 03/13/24 06:34
ED- Fall Risk Assessment Last Done: 03/13/24 06:34
ED- Cardiac Assessment Last Done: 03/13/24 06:50
ED- Neurological Assessment Last Done: 03/13/24 06:50
ED-Psychological Assessment Last Done: 03/13/24 06:50
ED- Pulmonary Assessment Last Done: 03/13/24 06:50
[2024-03-13] MEDS: ZOFRAN 4 MG IV (07:13)
[2024-03-13 07:14] LABS: % Basophils 0.4 % (0-2); % Immature Granulocytes 1.1 % (0-0.5); % Lymphocytes 15.8 % (20.5-51.1); % Monocytes 8.1 % (1.7-9.3); % Neutrophils 74.6 % (42.2-75.2); Absolute Immature Granulocytes 0.1 10^3/uL (0-0.05); Absolute Lymphocytes 0.9 10^3/uL (1.2-3.4); Absolute Monocytes 0.5 10^3/uL (0.1-0.6); Absolute Neutrophils 4.2 10^3/uL (1.4-6.5); Hematocrit 36.3 % (39.0-52.0); Hemoglobin 11.9 g/dL (13.0-18.0); Mean Corp Hgb Conc. 32.8 g/dL (33.0-37.0); Mean Corpuscular Volume 97.6 fL (80.0-94.0); Mean Platelet Volume 10.1 fL (7.4-10.4); Nucleated Red Blood Cells % 0.7 % (-); Platelet Count 174 10^3/uL (130-400); Red Blood Cell Count 3.72 10^6/uL (4.70-6.10); Red Cell Dist. Width 18.6 % (11.5-14.5); White Blood Cell Count 5.6 10^3/uL (4.8-10.8)
[2024-03-13 07:29] LABS: Lactic Acid 6.7 mmol/L (0.7-2.0)
[2024-03-13] MEDS: NSS 1000 IV ×2 (07:39→22:36)
[2024-03-13 07:40] LABS: Troponin I 0.065 ng/ml
[2024-03-13 07:40] LABS: Alcohol 119 mg/dl; Blood Urea Nitrogen 29 mg/dl (9-20); Calcium 8.2 mg/dl (8.4-10.2); Chloride 92 mmol/L (98-107); Glucose 401 mg/dl (70-99); Lipase 27 U/L (23-300); Sodium 132 mmol/L (135-145); eGFR 12.19
[2024-03-13 07:42] LABS: Carbon Dioxide 12 mmol/L (22-30)
[2024-03-13] MEDS: TORADOL 15 MG IV (07:50)
--- NOTE | 2024-03-13 09:04 | HPS.HSE ---
Family Physician
-
Family Physician: NOT KNOW UNKNOWN - PT DOES
Chief Complaint
-
nausea and vomiting
History of Present Illness
33-year-old male with extensive past medical history of uncontrolled diabetes and noncompliance being a huge issue who is presenting from home with nausea and vomiting. History obtained with discussion with ER team and from EMR due to acuity and
patient not cooperating initially. Patient called 911 as he was complaining of nausea and vomiting. Of note patient left AGAINST MEDICAL ADVICE early on in the week during which time he was admitted for DKA and significant volume overload. In the
ER patient was found to be hypotensive and was started on IV fluids. Patient was asking for IV narcotics. Subsequently discussion with the ER team patient went bradycardic and went into PEA arrest. Chest compressions were started and patient
received bicarbonate and sodium, calcium and epinephrine leading to loss ROSC and subsequently afterwards he was intubated. Patient was started on IV fentanyl and propofol.
Medical History
Past Medical History
Past Medical History: Reports Other
Additional Past Medical History:
history of type 1 diabetes on insulin pump, diabetic nephropathy, end stage renal disease on hemodialysis M, W, F, chronic right-sided pleural effusion, chronic abdominal pain secondary to gastroparesis, hypertension, severe pulmonary hypertension,
alcohol use disorder, anxiety/depression, alcohol abuse
Past Surgical History: Reports Other
Additional Past Surgical History:
LUE AVF
Appendectomy
PD Catheter placed / removed
Social History
Tobacco: Smoker
Alcohol: Occasional (Drank bottle of whiskey on 03/12/2024)
Living: With Family
Family History
Family History: Not pertinent
Allergies / Home Medications
Allergies reflects when Allergies were last updated in [facility].
Home Medications with original date entered in [facility]
Allergy/Medication List:
Medications on admission are unable to be verified or confirmed at this time.
Review of Systems
-
Unable to obtain full review of systems at this time due to: Acuity
Physical Exam
Vital Signs
Vital Signs
Pulse Resp BP Pulse Ox
112 20 71/61 93
03/13/24 09:01 03/13/24 09:01 03/13/24 08:51 03/13/24 07:49
Physical Exam
General: Appears Chronically Ill
HEENT: Anicteric and Moist mucous membranes
Respiratory: Decreased Breath Sounds and Other (ETT noted )
Cardiac: S1/S2 and Regular Rhythm
GI: Soft, Non Distended and Normal Bowel Sounds
Musculoskeletal: Other (LUE AVF )
Neuro: No Motor Deficits
Psych: Calm
Laboratory Results
-
03/13/24 06:58
Laboratory Results
Lactic Acid 6.7 mmol/L (0.7-2.0) H* 03/13/24 06:59
Total Bilirubin Cancelled 03/13/24 06:58
AST Cancelled 03/13/24 06:58
ALT Cancelled 03/13/24 06:58
Alkaline Phosphatase Cancelled 03/13/24 06:58
Troponin I 0.065 ng/ml H* 03/13/24 07:00
Lipase 27 U/L (23-300) 03/13/24 06:58
Impression/Plan
-
#Cardiac arrest likely secondary to metabolic abnormalities
#Acute hypoxic respiratory failure status post intubation mechanical ventilation
IV sedation with propofol and fentanyl
Chest x-ray ETT tube appropriate.
Ventilator management per pressurizer
Trend troponin
Will defer echocardiogram emergently/urgently to cardiology
Per CODE 9 sheet - he seems patient received sodium bicarbonate x 3, calcium chloride x 3 and epinephrine x 2
Alcohol level significantly elevated. UDS pending.
Cardiology consultation
#Shock likely secondary to dehydration in setting of DKA and recent alcohol significant intake
-Started on Levophed. Blood cultures in lab. Chest x-ray noted
-If spikes fever start broad-spectrum antibiotics
#DKA secondary to noncompliance
#IDDM
Start patient on IV insulin infusion.
#ESRD on hemodialysis M, W, F
#Hyperkalemia secondary to missed dialysis
# Metabolic acidosis severe secondary to missed dialysis and ketoacidosis diabetic
-Patient with history of missing hemodialysis session and last HD session suspected to be in the hospital on 03/10/2024.
-Plan for emergent HD today per nephrology
-Nephrology has been consulted
# Alcohol abuse
-Per patient mother, patient drank a whole bottle of whiskey on 03/12/2024
# Nausea and vomiting likely secondary to DKA versus gastroparesis
-N.p.o. for now
# Troponin elevation likely demand in the setting of DKA
#Chronic troponin elevation in setting of ESRD on hemodialysis
# Recurrent right pleural effusion
-Chest x-ray with small to moderate pleural effusion with adjacent atelectasis versus pneumonia
#Chronic anemia of renal disease
-Hemoglobin stable
#Essential hypertension
Now with hypotension
#Severe pulmonary hypertension
#Anxiety/depression
-Hold meds till able to tolerate p.o. intake
#Tobacco abuse
-Smokes half pack of cigarettes per day
Full code
DVT prophylaxis�heparin
Updated mother over the phone in detail.
Discussed with pressurizer
Discussed with ER physician and team
Total Critical Care Time 55 minutes. I was immediately available to the patient and staff. I personally examined, reviewed labs, diagnostic images/reports, interpretations, treatment plans, discussed patient care with other providers and family
or caregivers (if patient is unable to make decisions), entered orders as appropriate and documented the medical record.
[2024-03-13 09:32] LABS: Creatine Phosphokinase 223 U/L (55-170)
[2024-03-13 09:35] LABS: Potassium 5.6 mmol/L (3.5-5.1)
[2024-03-13 09:45] LABS: Glucose - Point of Care 453 mg/dl (70-99)
[2024-03-13 10:24] LABS: Glucose - Point of Care 359 mg/dl (70-99)
[2024-03-13] MEDS: SUBLIMAZE 100 IV ×3 (10:25→19:40)
[2024-03-13] MEDS: DIPRIVAN 100 IV ×2 (10:25→16:17)
[2024-03-13] MEDS: SUBLIMAZE 60 MCG IV (10:26)
--- NOTE | 2024-03-13 10:31 | W.CON.NEPH ---
Consultation
-
Date/Time Consultation Requested: 03/13/2024 10:30 AM
Date/Time Consultation Performed: 03/13/2024 10:15 AM
Requesting Provider: Dr. Mckenzie
Performing Provider: Dr. Vigil
Reason for Consultation: End-stage renal disease
Medical History
-
Chief Complaint: End-stage renal
History of Present Illness:
The patient is a 33-year-old man with a past medical history of insulin-dependent diabetes, blindness, and end-stage renal disease on hemodialysis who called 911 due to complaints of feeling nauseous. Patient arrives hypotensive and stuporous.
Patient is recurrently asking for Dilaudid. He is a poor historian. Patient he denies chest pain. He reports severe nausea. Patient has a history of noncompliance. He reports he has not been dialyzed for 4 days. Patient is a 33 y/o male past
medical history of HTN (on amlodipine and carvedilol), ESRD on HD (MWF), PE, constipation, depression, anxiety (on oxcarbazepine and trazodone), substance abuse, prior multiple hospital visit for pain meds, Type I Diabetes Mellitus on insulin pump.
While in the emergency room he bradycardia down and then went asystolic requiring coding and intubation. Nephrology was consulted for his end-stage renal disease management in the setting of this critically ill patient.
Past Medical History
end-stage renal disease on hemodialysis
PE
constipation
CHF
pleural effusions
depression/ anxiety
polysubstance abuse
Diabetes
Left upper extremity AV fistula
Pulmonary hypertension
Past Surgical History: Other (LUE AVF Appendectomy PD Catheter placed / removed)
Social History
Tobacco: Smoker
Alcohol: Occasional
Drug: Other (h/o polysub abuse)
Family History
Family History: Not Pertinent
Allergies / Home Medications
Allergy/AdvReac Type Severity Reaction Status Date / Time
shellfish derived Allergy Hives Verified 03/11/24 14:06
�Medication �Instructions �Recorded �Confirmed �Type
amlodipine 10 mg tablet 10 mg PO DAILY Blood pressure 04/22/21 03/10/24 History
carvedilol 25 mg tablet (Coreg) 25 mg PO BID Blood pressure 04/22/21 03/10/24 History
furosemide 40 mg tablet 40 mg PO BID Fluid 04/22/21 03/10/24 History
retention/Swelling
metoclopramide HCl 10 mg tablet 10 mg PO TIDPRN PRN nausea 04/07/23 03/10/24 History
(Reglan)
oxcarbazepine 150 mg tablet 150 mg PO DAILYPRN PRN mental 07/24/23 03/10/24 History
health
trazodone 50 mg tablet 25 mg PO HSPRN PRN sleep 01/05/24 03/10/24 History
Patient Own Insulin Pump 0 units SC .VIA PUMP diabetes 02/13/24 03/10/24 History
Review of Systems
-
History Source: Patient
All other systems: Negative unless noted
Abdomen/GI: Abdominal Pain and Nausea
Hematologic/Lymphatic: Other (Vascular left upper extremity AV for)
Physical Exam
Vital Signs
Vital Signs
Pulse Resp BP Pulse Ox
136 14 90/58 100
03/13/24 10:20 03/13/24 10:20 03/13/24 10:17 03/13/24 10:20
Lab Results
WBC 5.6 10^3/uL (4.8-10.8) 03/13/24 06:58
RBC 3.72 10^6/uL (4.70-6.10) L 03/13/24 06:58
Hgb 11.9 g/dL (13.0-18.0) L D 03/13/24 06:58
Hct 36.3 % (39.0-52.0) L 03/13/24 06:58
Plt Count 174 10^3/uL (130-400) D 03/13/24 06:58
Sodium 132 mmol/L (135-145) L 03/13/24 06:58
Potassium 5.6 mmol/L (3.5-5.1) H 03/13/24 08:58
Chloride 92 mmol/L (98-107) L 03/13/24 06:58
Carbon Dioxide 12 mmol/L (22-30) L* 03/13/24 06:58
BUN 29 mg/dl (9-20) H 03/13/24 06:58
Creatinine 5.9 mg/dL (0.7-1.3) H* 03/13/24 06:58
eGFR 12.19 03/13/24 06:58
Glucose 401 mg/dl (70-99) H 03/13/24 06:58
Calcium 8.2 mg/dl (8.4-10.2) L 03/13/24 06:58
Albumin Cancelled 03/13/24 06:58
Physical Exam
General: Intubated and sedated
HEENT: ET tube down oropharyngeal airway
Respiratory: Coarse to auscultation bilaterally with normal lung exersion
Cardiac: S1/S2 and Regular Rate/Rhythm
Breast: Deferred by me
Abdomen: Soft, Nontender, Nondistended, no bowel sounds
Rectal: Deferred by Provider
Genito-urinary: No Costovertebral Tenderness, genitalia normal
Extremities: No Clubbing, No Cyanosis and No Edema
Skin: No Rash or open lesions
Neuro: Unobtainable as patient is intubated and sedated
Hematologic/Lymphatic: No Cervical Lymphadenopathy, No Submandibular Lymphadenopathy and No Supraclavicular Lymphadenopathy
Psych: Unobtainable as patient is intubated and sedated
Vascular: plus 1 pedal and radial pulses
Vascular Access: AVF (Left upper extremity no thrill or bruit appreciated)
Data Reviewed
-
Radiology: Image Personally Visualized and interpreted (Chest x-ray noted interstitial edema)
Medical Tests (Nuc Med, Echo etc): Report Reviewed by me (EKG notes sinus rhythm with ST wave abnormalities at 69 beats per minute)
Labs: Labs Reviewed by me (CBC BMP)
Old Records: Reviewed (Reviewed recent admission from March 102023 for esrd)
Assessment/Plan
-
Impression:
Status post PEA/Asystole
Metabolic acidemia
Intubation following code
Chronic noncompliance with dialysis
ESRD MWF ([facility]),
left UE AVF
DKA hx/metabolic acidosis
Hyperkalemia
Acute Volume Overload and Hyperkalemia secondary to Missed HD Treatments
Chronic Abdominal Pain / Gastroparesis
Pulmonary hypertension
Polysubstance abuse
Anxiety
Anemia
Right pleural effusion--s/p R throa for pleural effusion with 1.8L transudate 02/17/24
Plan:
A/w possible DKA status postcardiac arrest witnessed in the emergency
Diabetes management per primary team
hyperkalemia from DKA will treat with dialysis
Unknown last dialysis suspected to be at least 4 days
Will provide emergency dialysis for hyperkalemia and acidosis
Patient remains intubated
Patient is critically ill with vent dependent respiratory failure hyperkalemia, profound metabolic acidosis and possible DKA
Left upper extremity AV fistula may be down may require vascular duplex and placement of temporary HD catheter if access failed
Total Time Spent with Patient (in minutes): 45 minutes critical care time spent with patient
[2024-03-13 10:53] LABS: B.E. -14.5 mmol/L; PCO2 39 mmHg (35-48); PO2 317 mmHg (83-108)
[2024-03-13 11:00] LABS: HCO3 13.6 mmol/L (21-28); pH 7.15 (7.35-7.45)
--- NOTE | 2024-03-13 11:00 | EDRN ---
CODE DOCUMENTATION:
9:33: RN noted sinus alejandra on pts teletypesetter monitor. This RN entered room and verbally notified MD Iqbal. Pt then sternal rubbed as pt was not responding to verbal stimuli.
9:34: pt asystolic, high quality CPR started @ this time. multiple RN's and MD Iqbal @ bedside throughout code.
SEE CODE SHEET FOR FURTHER CODE DOCUMENTATION.
--- NOTE | 2024-03-13 11:06 | CON.INTV ---
Consultation
Consultation Request
Date/Time Consultation Requested: 03/13
Date/Time Consultation Performed: 03/13
Reason for Consultation: Critical care
Medical History
-
History of Present Illness:
History obtained from the chart as patient is currently intubated. Patient is a 33-year-old male with history of diabetes, end-stage renal disease on hemodialysis with multiple ED visits since 03/03, recent hospital stay 03/10, left AMA 03/11, return to
ED in the p.m. 03/11. At that time there was concern regarding his tachycardia. Patient demanding pain medications. Left AMA because he did not receive his pain medications. Of note he left AMA 03/11 earlier in the day without getting dialysis.
According to my records, last dialysis date may have been 03/05 but cannot confirm this. He returns to [facility] 03/13 after calling EMS because of nausea. Upon arrival to [facility], he asked again for pain medications. He was
found to be hypotensive, hyperglycemic, hyperkalemic and was started with therapy for hyperkalemia with plans for dialysis. Patient apparently developed bradycardia then asystole requiring CPR, multiple rounds of epinephrine, bicarbonate with
return of spontaneous circulation. Patient intubated. Admitted to ICU 03/13/2024
.
PMH: Type 2 diabetes on insulin pump, complicated by diabetic nephropathy, end-stage renal disease on hemodialysis, chronic right-sided pleural effusion, chronic abdominal pain, gastroparesis, hypertension, alcohol use disorder, anxiety/depression,
narcotic use. Patient also has history of pulmonary embolism, left upper extremity AV fistula, appendectomy, history of peritoneal dialysis catheter, now removed
Past Medical History
Past Medical History: None (See above)
Past Surgical History: None (See above)
Social History
Tobacco: Smoker ([id number], half pack a day)
Alcohol: Occasional
Drug: None
Family History
Family History: Other (Family history of asthma)
Allergies / Home Medications
Allergies
Allergy/AdvReac Type Severity Reaction Status Date / Time
shellfish derived Allergy Hives Verified 03/11/24 14:06
Home Medications
�Medication �Instructions �Recorded �Confirmed �Last Taken �Type
amlodipine 10 mg tablet 10 mg PO DAILY Blood pressure 04/22/21 03/10/24 03/04/24 History
carvedilol 25 mg tablet (Coreg) 25 mg PO BID Blood pressure 04/22/21 03/10/24 03/04/24 History
furosemide 40 mg tablet 40 mg PO BID Fluid 04/22/21 03/10/24 03/04/24 History
retention/Swelling
metoclopramide HCl 10 mg tablet 10 mg PO TIDPRN PRN nausea 04/07/23 03/10/24 01/04/24 History
(Reglan)
oxcarbazepine 150 mg tablet 150 mg PO DAILYPRN PRN mental 07/24/23 03/10/24 01/04/24 History
health
trazodone 50 mg tablet 25 mg PO HSPRN PRN sleep 01/05/24 03/10/24 01/04/24 History
Patient Own Insulin Pump 0 units SC .VIA PUMP diabetes 02/13/24 03/10/24 03/05/24 History
Review of Systems
-
Unable to Obtain full review of systems at this time due to: Patient Intubation
Vitals / Labs / Diagnostic Testing
Vital Signs
Pulse Resp BP Pulse Ox
121 19 90/62 100
03/13/24 10:40 03/13/24 10:40 03/13/24 10:30 03/13/24 10:40
Lab Data
03/13/24 06:58
Laboratory Results
03/13/24
10:26
pH 7.15 L*
pCO2 39
pO2 317 H
HCO3 13.6 L*
O2 Delivery Level
Diagnostic Testing:
Physical Exam
-
HEENT: Normocephalic, Anicteric, Other (Right upper extremity midline) and Other (Left upper extremity AV fistula, pulsatile but no thrill)
Cardiovascular: S1/S2, Regular Rhythm, Murmur (n) and Rub (n)
Respiratory: Wheeze (n), Rales (n), Rhonchi (n), Non-Labored Respirations and Other (ET tube)
GI: Soft and Non Distended
Neurology: Other (Lethargic, sedated)
Skin: Other (Multiple upper extremity scratch jefferson, scattered abrasions)
General: Comfortable
Assessment
-
Patient is a 33-year-old male with past medical history of diabetes melitis type I (on insulin pump), ESRD on hemodialysis MWF, hypertension, with multiple ED visits over the past week, noncompliance with dialysis and diabetic therapy, now presents
with abdominal pain, nausea. Blood sugar greater than 600, admitted with DKA, admitted to ICU 03/10/2024
Cardiac arrest, PEA/asystole
Requiring CPR in the ED
VDRF, post Cardiac Arrest, intubated 03/13/2024
Multiple missed dialysis sessions
Last dialysis 03/05 and 03/10
Acute DKA
Metabolic acidemia, elevated lactate
Chronic abdominal pain/nausea/emesis, waxing and waning
Gastroparesis
Hyperkalemia
Hyponatremia
chronic, baseline sodium 129-134
Elevated troponin
Elevated alcohol level
Prolonged QT
Conditions present prior to admission
Chronic right pleuroparenchymal process
s/p rt Thora 02/17/24, -1800cc transudate
Cytology negative
Anemia
History of DM type I
Insulin pump, history of malfunction, noncompliance
End-stage renal disease
Secondary to diabetic nephropathy
Noncompliant with dialysis
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
PA pressure 65
Ascites, small pericardial effusion per prior imaging
Suspected sleep disordered breathing ongoing tobacco use
History of hypoxia on home oxygen
Details unclear, set up through [facility]
Anxiety/depression
Reported h/o HF while adm to [facility] 2 y [employer] for complications of DM
Reported history of PE 2020, treated 6m OAC
History of medical noncompliance
Ongoing tobacco use, 10+ pack year
Plan/recommendations
At this time, patient is critically ill
Unfortunately, ED documentation is not completed as of yet.
Most ED events obtained from nursing
Suspect asystole was due to to electrolyte abnormalities, lack of dialysis compliance
Elevated alcohol levels noted
Patient also has history of hypoxia on home oxygen for unclear reasons
Echocardiogram February 2024 normal LV function with RV pressure overload and RV dilatation, PA pressure 50. This appears to be chronic and stable. No comment on right ventricular function
history of PE noted per records
Moving forward
Continue with volume-cycled ventilation
AC 20/450/5/60%, peak pressure 36, plateau pressure 20
Decrease tidal volume to 400
Plans for dialysis per nephrology
Follow electrolytes prolonged QT on EKG noted. This has been present
During prior studies
Continue with close monitoring of blood sugar, adjusting insulin as appropriate
Unfortunately, patient with significant noncompliance in the past per reviewing records
Reviewed CT abdomen/. Moderate right-sided pleural effusion with likely trapped lung physiology, area of pleural thickening
This appears to be chronic as far back as April 2023
Was not present on CT chest April 2021
patient apparently with history of signing out AMA after not receiving narcotic therapy
Minimize narcotic therapy given nausea/emesis, gastroparesis
Continue n.p.o. for now
DVT prophylaxis: Subcutaneous heparin every 8 hours
GI prophylaxis: On pantoprazole
Reviewed with critical care nursing, respiratory care, primary service
TCCT 35 min
Data:
TTE 02-18-2024:
Normal left ventricular systolic function. LV ejection fraction is 60% by
volumetric assessment.
Mild concentric left ventricular hypertrophy.
The right ventricle is dilated. Septum flattened in systole consistent with RV
pressure overload.
[2024-03-13 11:11] LABS: Glucose - Point of Care 384 mg/dl (70-99)
[2024-03-13] MEDS: NOVOLIN R INSULIN INFUSION 100 IV (11:59)
[2024-03-13 12:09] LABS: Glucose - Point of Care 339 mg/dl (70-99)
[2024-03-13] MEDS: LEVOPHED 250 IV (12:25)
--- NOTE | 2024-03-13 12:47 | W.PN.NEPH.HD ---
Assessment
-
Patient seen on dialysis
Heart rate now up to 160
Will discontinue Levophed
Systolic blood pressure also acutely rising
UF was cut back from 1 to even with tachycardia
Will implement David-Synephrine if needed for blood pressure support on dialysis
Progress Note - Hemodialysis
-
Date of Service: March 13, 2024
Duration: 15 minutes, 30 minutes and 3 hours
Potassium Bath: 2
Calcium Bath: 2.5
Opti-Dialyzer: 160
Ultrafiltration: Other ( even)
Blood Flow: 400
Dialysate Flow: 600
Heparin: None
EPO: None
--- NOTE | 2024-03-13 12:54 | CM ---
CM following re: discharge planning.
Reviewed pt's chart, met with pt.
Pt is a 33 year old male,admitted with primary dx of Cardiac arrest. Pt currently intubated.
Pt is well known to this CM from previous admission, left AMA on 03/10/24. The patient resides with his mother in a split level home with no steps to enter. The patient receives HD M-W- at [facility], uses [facility] transport, has been on
HD treatment for 3 years. 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 CM consult received for substance abuse. Pt will be referred to [facility] when clinically appropriate.
PCP: Will confirm with the pt when able.
Pharmacy: [facility].
D/C plan: uncertain at this time and will depend on pt's progress.
CM continues to be available to patient/family and is monitoring medical plan for needs at discharge.
[2024-03-13 13:13] LABS: Glucose - Point of Care 267 mg/dl (70-99)
--- NOTE | 2024-03-13 13:24 | CON.CAR ---
Consultation
Consultation Request
Date/Time Consultation Requested: 03/13/24, 11am
Date/Time Consultation Performed: 03/13/24, 1230pm
Requesting Provider: Jonah
Performing Provider: Nohelia
Reason for Consultation: PEA arrest
Medical History
-
Chief Complaint: PEA arrest
History of Present Illness:
33 y male with IDDM with insulin pump since the age of 13, HTN, ESRD on HD, severe PHTN and h/o PE 3 years ago (treated with Eliquis for 6 months, per patient), chronic non-compliance with medical therapy, who presents to the ED with nausea. He
reported missing several sessions of HD. Asked for narcotics. Then PEA arrest.
Past Medical History
Past Medical History: HTN and IDDM
Past Surgical History: Appendectomy
Social History
Tobacco: Smoker
Family History
Family History: Unable to Obtain (intubated)
Allergies / Home Medications
Allergy/AdvReac Type Severity Reaction Status Date / Time
shellfish derived Allergy Hives Verified 03/11/24 14:06
�Medication �Instructions �Recorded �Confirmed �Type
amlodipine 10 mg tablet 10 mg PO DAILY Blood pressure 04/22/21 03/10/24 History
carvedilol 25 mg tablet (Coreg) 25 mg PO BID Blood pressure 04/22/21 03/10/24 History
furosemide 40 mg tablet 40 mg PO BID Fluid 04/22/21 03/10/24 History
retention/Swelling
metoclopramide HCl 10 mg tablet 10 mg PO TIDPRN PRN nausea 04/07/23 03/10/24 History
(Reglan)
oxcarbazepine 150 mg tablet 150 mg PO DAILYPRN PRN mental 07/24/23 03/10/24 History
health
trazodone 50 mg tablet 25 mg PO HSPRN PRN sleep 01/05/24 03/10/24 History
Patient Own Insulin Pump 0 units SC .VIA PUMP diabetes 02/13/24 03/10/24 History
Review of Systems
-
Unable to obtain full review of systems at this time due to: Patient Intubation
Physical Exam
Vital Signs
Temp Pulse Resp BP Pulse Ox
97.6 F 127 20 85/50 98
03/13/24 12:02 03/13/24 11:10 03/13/24 11:10 03/13/24 11:06 03/13/24 11:05
Lab Results
03/13/24 06:58
Troponin I 0.065 ng/ml H* 03/13/24 07:00
Physical Exam
General: Other (intubated, sedated)
HEENT: Normocephalic and Anicteric
Respiratory: Other (mechanical ventilation)
Cardiac: S1/S2 (normao), Regular Rhythm, Murmur (none) and Peripheral Edema (none)
GI: Soft and Non Tender
Musculoskeletal: No Clubbing, No Cyanosis and No Edema
Skin: Warm and Dry
Neuro: Other (sedated)
Psych: Other (sedated)
Impression / Plan
-
33 y male with IDDM with insulin pump since the age of 13, HTN, ESRD on HD, severe PHTN and h/o PE 3 years ago (treated with Eliquis for 6 months, per patient), chronic non-compliance with medical therapy, who presents to the ED with nausea. He
reported missing several sessions of HD. Asked for narcotics. Then PEA arrest.
Patient is critically ill, intubated, on mechanical ventilation.
PEA arrest
-in setting of severe metabolic acidosis, missed HD
-back in NSR, on vent, getting urgent HD
-echo this admission
A fib with RVR: in setting of critical illness
-back in NSR
-eventually to resume home coreg
-would not recommend OAC given longstanding compliance issues
Enlarged RV, severe TR, pulm HTN
-will repeat echo this admission
HTN - assess to resume meds as recovers from cardiac arrest
ESRD - urgent HD per nephrology.
IDDM - insulin pump.
- per hospitalist.
Tobacco abuse
CCT 70 minutes.
Data Reviewed
-
EKG: Tracing Personally Visualized and interpreted (NSR, anterior TWI, prolonged QT) and Other (Tele: A fib-->NSR)
Labs: Labs Reviewed by me
Old Records: Reviewed
[2024-03-13 14:20] LABS: Glucose - Point of Care 190 mg/dl (70-99)
[2024-03-13] MEDS: D5/0.9% SODIUM CHLORIDE 1000 IV ×2 (14:21→21:56)
[2024-03-13] MEDS: MANNITOL 12.5 GRAMS IV (14:44)
--- NOTE | 2024-03-13 15:35 | PTCARENOTE ---
Patient received post code and intubated from ED at 1130 with assessment as noted. Continues intubated and sedated with Propofol and Fentanyl. Soft wrist restraints in place for patient safety with current order on chart and documentation as noted.
Received in a rapid A-fib but at 1330 he went back to NSR without and intervention. B/P's continue slightly hypotensive but stable even with HD ongoing. Afebrile. Lungs slightly coarse through out. Suction for scant cuellar secretions. Sao2 97% on vent
setting A/C 22-400-40% peep 5. Bowel sounds absent upon arrival but present now. No bowel movement since arrival. Continues anuric. Left upper arm fistula with a normal thrill but a weak bruit upon arrival but patent to ongoing HD treatment. VS
stable during HD. Patient's mother into visit and updated to patient condition. Patient currently in bed with HD ongoing and soft wrist restraints in place. Will continue to monitor closely.
[2024-03-13 16:16] LABS: Glucose - Point of Care 179 mg/dl (70-99)
[2024-03-13 16:16] LABS: Glucose - Point of Care 156 mg/dl (70-99)
[2024-03-13] MEDS: HEPARIN 5000 UNITS SC (16:17)
[2024-03-13 17:08] LABS: Glucose - Point of Care 188 mg/dl (70-99)
[2024-03-13 17:27] LABS: Lactic Acid 1.9 mmol/L (0.7-2.0)
[2024-03-13 17:33] LABS: Triglycerides 283 mg/dl (10-149)
[2024-03-13 17:35] LABS: Blood Urea Nitrogen 18 mg/dl (9-20); Calcium 8.4 mg/dl (8.4-10.2); Carbon Dioxide 30 mmol/L (22-30); Chloride 96 mmol/L (98-107); Glucose 173 mg/dl (70-99); Potassium 3.6 mmol/L (3.5-5.1); Sodium 132 mmol/L (135-145); eGFR 32.58
[2024-03-13 18:08] LABS: Glucose - Point of Care 188 mg/dl (70-99)
[2024-03-13 19:11] LABS: Glucose - Point of Care 174 mg/dl (70-99)
[2024-03-13] MEDS: THIAMINE INJECTION 200 MG IV (19:40)
--- NOTE | 2024-03-13 20:00 | PTCARENOTE ---
Received patient at 1900. Pt. currently sedated on ventilator. Not showing signs of pain or discomfort. CPOT 0. Afebrile. Heart rhythm sinus. Blood pressure normotensive. On ventilator via endotracheal tube. Ventilator settings verified. Lungs sound
coarse. Scant secretions. NPO. OG tube in place, verified by Xray. Pt. is regular dialysis patient. Anuric. Skin as documented. Vital signs stable at this time.
[2024-03-13 20:08] LABS: Glucose - Point of Care 153 mg/dl (70-99)
[2024-03-13 21:09] LABS: Glucose - Point of Care 144 mg/dl (70-99)
[2024-03-13 21:37] LABS: Blood Urea Nitrogen 20 mg/dl (9-20); Calcium 8.5 mg/dl (8.4-10.2); Carbon Dioxide 28 mmol/L (22-30); Chloride 97 mmol/L (98-107); Glucose 151 mg/dl (70-99); Potassium 3.3 mmol/L (3.5-5.1); Sodium 135 mmol/L (135-145); eGFR 28.58
[2024-03-13 22:09] LABS: Glucose - Point of Care 137 mg/dl (70-99)
[2024-03-13] MEDS: KCL 50 IV (22:36)
[2024-03-13 23:09] LABS: Glucose - Point of Care 130 mg/dl (70-99)
[2024-03-14] VITALS (23 sets, daily range): BP systolic 56–126; BP diastolic 28–108
[2024-03-14 00:08] LABS: Glucose - Point of Care 98 mg/dl (70-99)
--- NOTE | 2024-03-14 00:13 | PTCARENOTE ---
Pt. remains intubated and sedated. OSCAR Magallon stopped DKA protocol, and ordered glycemic protocol. Continuing insulin gtt, following glycemic protocol. Otherwise, assessment unchanged. Trending labs. Vital signs stable at this time.
[2024-03-14] MEDS: HEPARIN 5000 UNITS SC ×4 (00:27→23:54)
[2024-03-14] MEDS: SUBLIMAZE 100 IV ×5 (00:47→21:49)
[2024-03-14 01:02] LABS: Glucose - Point of Care 103 mg/dl (70-99)
[2024-03-14 01:26] LABS: Blood Urea Nitrogen 22 mg/dl (9-20); Calcium 8.4 mg/dl (8.4-10.2); Carbon Dioxide 28 mmol/L (22-30); Chloride 99 mmol/L (98-107); Glucose 104 mg/dl (70-99); Potassium 3.6 mmol/L (3.5-5.1); Sodium 137 mmol/L (135-145); eGFR 26.38
[2024-03-14] MEDS: DIPRIVAN 100 IV ×3 (01:35→17:02)
[2024-03-14 02:15] LABS: Glucose - Point of Care 92 mg/dl (70-99)
[2024-03-14 03:10] LABS: Glucose - Point of Care 74 mg/dl (70-99)
--- NOTE | 2024-03-14 03:59 | PTCARENOTE ---
Pt. remains intubated and sedated. 3am fingerstick reads blood glucose of 74. OSCAR Magallon discontinued glycemic protocol and insulin gtt. Pt. ordered for q4 hour accuchecks and sliding scale. Pt. has remained comfortable throughout shift.
Synchronous with ventilator. Vital signs stable at this time.
[2024-03-14] MEDS: NEO-SYNEPHRINE 250 IV ×3 (04:05→17:02)
[2024-03-14 04:20] LABS: B.E. 5.6 mmol/L; HCO3 26.1 mmol/L (21-28); O2 Saturation % 99.2 % (94-98); PCO2 26 mmHg (35-48); PO2 103 mmHg (83-108)
[2024-03-14 04:24] LABS: pH 7.61 (7.35-7.45)
[2024-03-14] MEDS: NOVOLOG FLEXPEN-MODERATE RESISTANCE SC ×5 (04:28→23:54)
[2024-03-14 04:34] LABS: % Basophils 0.5 % (0-2); % Eosinophils 1.7 % (0-6); % Immature Granulocytes 0.6 % (0-0.5); % Monocytes 6.6 % (1.7-9.3); % Neutrophils 62.6 % (42.2-75.2); Absolute Eosinophils 0.1 10^3/uL (0-0.7); Absolute Immature Granulocytes 0.1 10^3/uL (0-0.05); Absolute Lymphocytes 2.2 10^3/uL (1.2-3.4); Absolute Monocytes 0.5 10^3/uL (0.1-0.6); Absolute Neutrophils 4.8 10^3/uL (1.4-6.5); Hematocrit 40.7 % (39.0-52.0); Mean Corp Hgb Conc. 34.4 g/dL (33.0-37.0); Mean Platelet Volume 9.9 fL (7.4-10.4); Nucleated Red Blood Cells % 0.6 % (-); Platelet Count 144 10^3/uL (130-400); Red Blood Cell Count 4.52 10^6/uL (4.70-6.10); Red Cell Dist. Width 17.4 % (11.5-14.5); White Blood Cell Count 7.7 10^3/uL (4.8-10.8)
[2024-03-14 04:39] LABS: Glucose - Point of Care 78 mg/dl (70-99)
[2024-03-14 04:43] LABS: INR 1.35; PT 16.5 Sec (11.4-14.6)
[2024-03-14 04:44] LABS: APTT 38.5 Sec (23.4-35.0)
[2024-03-14 05:01] LABS: Blood Urea Nitrogen 23 mg/dl (9-20); Calcium 8.5 mg/dl (8.4-10.2); Carbon Dioxide 26 mmol/L (22-30); Chloride 99 mmol/L (98-107); Glucose 92 mg/dl (70-99); Magnesium 1.9 mg/dl (1.6-2.3); Phosphorus 3.5 mg/dl (2.5-4.5); Potassium 3.9 mmol/L (3.5-5.1); Sodium 135 mmol/L (135-145)
--- NOTE | 2024-03-14 05:30 | PTCARENOTE ---
At 4am, pt. hypotensive on BP cuff reading. BP repeated multiple times with similar results. Neosynephrine gtt started. Blood pressure remained labile. OSCAR Magallon placed Right radial arterial line at approximately 5:30 am. Neosynephrine gtt
titrated per order. Vital signs stable at this time.
--- NOTE | 2024-03-14 05:47 | W.PN.UPDATE ---
Update Note
Progress Note Update
Procedure Note: Arterial Line�
� Right Wrist Arrow 20 (01/04)�
Diagnosis:��Cardiac arrest
IV Line Comments: Uneventful Procedure�
Jeff's test completed pre-procedure: Yes�
A-Line Comments: Sterile technique as per standard protocol, Ultrasound guided insertion�
Functioning A-line in situ: Yes�
A-line Insertion Start Time:��0515
A-line in at:��0520
--- NOTE | 2024-03-14 06:40 | W.PN.INTV ---
Today's Communication / Plan
Recommendations
Continue pressors, may require vasopressin
Echocardiogram in a.m.
Off insulin drip, follow
Ventilator adjustments for alkalemia
Right IJ or right PICC 03/15 if unable to wean off pressors
Right groin line remains in place but
Assessment
-
Patient is a 33-year-old male with past medical history of diabetes melitis type I (on insulin pump), ESRD on hemodialysis MWF, hypertension, with multiple ED visits over the past week, noncompliance with dialysis and diabetic therapy, now presents
with abdominal pain, nausea. Blood sugar greater than 600, admitted with DKA, admitted to ICU 03/10/2024
Cardiac arrest, PEA/asystole
Requiring CPR in the ED
VDRF, post Cardiac Arrest, intubated 03/13/2024
Multiple missed dialysis sessions
Last dialysis 03/05 and 03/10
Acute DKA
Metabolic acidemia, elevated lactate
Chronic abdominal pain/nausea/emesis, waxing and waning
Gastroparesis
Hyperkalemia
Hyponatremia
chronic, baseline sodium 129-134
Elevated troponin
Elevated alcohol level
Prolonged QT
Conditions present prior to admission
Chronic right pleuroparenchymal process
s/p rt Thora 02/17/24, -1800cc transudate
Cytology negative
Anemia
History of DM type I
Insulin pump, history of malfunction, noncompliance
End-stage renal disease
Secondary to diabetic nephropathy
Noncompliant with dialysis
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
PA pressure 65
Ascites, small pericardial effusion per prior imaging
Suspected sleep disordered breathing ongoing tobacco use
History of hypoxia on home oxygen
Details unclear, set up through [facility]
Anxiety/depression
Reported h/o HF while adm to [facility] 2 y LCSW for complications of DM
Reported history of PE 2021, treated 6m OAC
History of medical noncompliance
Ongoing tobacco use, 10+ pack year
Plan/recommendations
At this time, patient is critically ill, now on pressors
Suspect asystole was due to to electrolyte abnormalities, lack of dialysis compliance
Elevated alcohol levels noted
Patient also has history of hypoxia on home oxygen for unclear reasons
Echocardiogram February 2024 normal LV function with RV pressure overload and RV dilatation, PA pressure 50. This appears to be chronic and stable. No comment on right ventricular function
history of PE noted per records
Moving forward
Continue with volume-cycled ventilation
AC 16/400/5/40%, peak pressure 36, plateau pressure 20
ABG with alkalemia noted, ventilator settings adjusted
Will consider SBT, weaning of sedation after tomorrow HD session
Plans for dialysis per nephrology, completed 03/13
Patient has right femoral groin line in place
May need to transition to right IJ or right upper extremity PICC tomorrow if not off pressors by then
Follow electrolytes prolonged QT on EKG noted. This has been present
During prior studies
Continue with close monitoring of blood sugar, adjusting insulin as appropriate
Unfortunately, patient with significant noncompliance in the past per reviewing records
Insulin drip discontinued, follow blood sugars
Reviewed CT abdomen/. Moderate right-sided pleural effusion with likely trapped lung physiology, area of pleural thickening
This appears to be chronic as far back as April 2023
Was not present on CT chest April 2021
patient apparently with history of signing out AMA after not receiving narcotic therapy
Minimize narcotic therapy given nausea/emesis, gastroparesis
Continue n.p.o. for now
DVT prophylaxis: Subcutaneous heparin every 8 hours
GI prophylaxis: On pantoprazole
Reviewed with critical care nursing, respiratory care, primary service
TCCT 31 min
Data:
TTE 02-18-2024:
Normal left ventricular systolic function. LV ejection fraction is 60% by
volumetric assessment.
Mild concentric left ventricular hypertrophy.
The right ventricle is dilated. Septum flattened in systole consistent with RV
pressure overload.
Subjective Dataa
Subjective Data
Date of Service:
Date of Service: March 14, 2024
Subjective:
Remains critically ill, requiring pressors. Blood pressure labile, occasionally goes down to the 60s. A-line placed overnight. Troponin elevated to 6. Atrial fibrillation noted, now in sinus rhythm. Remains mechanically ventilated, sedated
Objective Data
Data Reviewed
Vital Signs / I&O / Oxygen:
Vital Signs
Temp Pulse Resp BP Pulse Ox
98.1 F 72 16 107/89 100
03/14/24 00:00 03/14/24 06:30 03/14/24 06:30 03/14/24 05:31 03/14/24 06:30
Intake and Output
03/12/24 03/13/24 03/14/24
06:59 06:59 06:59
Intake Total 8.2 / 2067.2
Balance 2067.2 / 2067.2
SaO2 [A/C] 100
SaO2 100
Physical Exam
General: Comfortable, Other (Left upper extremity AV fistula) and Other (Right upper extremity A-line, right groin line)
HEENT: Normocephalic and Anicteric
Cardiovascular: S1-S2, Regular Rhythm, Murmur (n) and Rub (n)
Respiratory: Wheeze (mild), Crackles (Mild at base), Rhonchi (n), Non-Labored Respirations and ET Tube
GI: Soft and Non Distended
Neurology: Lethargic (Sedated)
Skin: Cyanosis (n), Jaundice (n) and Rash (n)
Labs/Micro/Reports
Lab Data
03/14/24 04:22
03/14/24 04:23
Laboratory Results
03/13/24 03/14/24 03/14/24
10:26 04:06 04:23
PT 16.5 H
INR 1.35
APTT 38.5 H
pH 7.15 L* 7.61 H*
pCO2 39 26 L
pO2 317 H 103
HCO3 13.6 L* 26.1
O2 Delivery Level
[2024-03-14 07:16] LABS: B.E. 2.2 mmol/L; HCO3 25.5 mmol/L (21-28); O2 Saturation % 99.5 % (94-98); PCO2 35 mmHg (35-48); PO2 118 mmHg (83-108); pH 7.47 (7.35-7.45)
--- NOTE | 2024-03-14 08:16 | W.PN.NEPH.PH ---
Today's Communication / Plan
-
Hd tomorrow,orders provided
maintain pressor support to keep MAP >60
Remains intubated and sedated
Back in sinus rhythm
Assessment/Plan
-
Impression:
Status post PEA/Asystole
PAF : briefly after code on 03/13/24
Metabolic acidemia
Intubation following code
Chronic noncompliance with dialysis
ESRD MWF ([facility]),
left UE AVF
DKA hx/metabolic acidosis
Hyperkalemia
Acute Volume Overload and Hyperkalemia secondary to Missed HD Treatments
Chronic Abdominal Pain / Gastroparesis
Pulmonary hypertension
Polysubstance abuse
Anxiety
Anemia
Right pleural effusion--s/p R throa for pleural effusion with 1.8L transudate 02/17/24
Plan:
A/w DKA status postcardiac arrest witnessed in the emergency
Gap now closed and off insulin drip
Diabetes management per primary team
Patient now in sinus rhythm
Remains intubated with pressor support
Next dialysis tomorrow, orders provided
Patient is critically ill with vent dependent respiratory failure and pressor support
Maintenance fluids provided
Patient's notorious noncompliance and drug-seeking behavior will continue to be problematic
Total Time Spent with Patient (in minutes): 31-minute
-
-
Date of Service: March 14, 2024
CC / HPI / ROS
-
Chief Complaint:
End-stage renal disease
History of Present Illness:
ESRD Friday schedule
Hemodynamically labile on David-Synephrine pressor support
Remains intubated FiO2 support 40% fio2
Review of Systems:
Intubated
Sedated
Anuric
Labs
-
Labs:
WBC 7.7 10^3/uL (4.8-10.8) 03/14/24 04:22
RBC 4.52 10^6/uL (4.70-6.10) L 03/14/24 04:22
Hgb 14.0 g/dL (13.0-18.0) 03/14/24 04:22
Hct 40.7 % (39.0-52.0) 03/14/24 04:22
Plt Count 144 10^3/uL (130-400) 03/14/24 04:22
Sodium 135 mmol/L (135-145) 03/14/24 04:23
Potassium 3.9 mmol/L (3.5-5.1) 03/14/24 04:23
Chloride 99 mmol/L (98-107) 03/14/24 04:23
Carbon Dioxide 26 mmol/L (22-30) 03/14/24 04:23
BUN 23 mg/dl (9-20) H 03/14/24 04:23
Creatinine 3.2 mg/dL (0.7-1.3) H 03/14/24 04:23
eGFR 25.40 03/14/24 04:23
Glucose 92 mg/dl (70-99) 03/14/24 04:23
Calcium 8.5 mg/dl (8.4-10.2) 03/14/24 04:23
Phosphorus 3.5 mg/dl (2.5-4.5) 03/14/24 04:23
Albumin Cancelled 03/13/24 06:58
Physical Exam
-
Vital Signs:
Vital Signs
Temp Pulse Resp BP Pulse Ox
96.5 F L 72 16 107/89 98
03/14/24 07:12 03/14/24 06:30 03/14/24 06:30 03/14/24 05:31 03/14/24 08:00
Cardiovascular:: Regular rate and rhythm
Respiratory:: Bilateral: Coarse
Lung Excursion:: Normal
Abdomen:: Nontender and Soft
Bowel Sounds:: Decreased
Extremity Edema:: None: Bilateral:
Randhawa Catheter: No
Other Findings::
General: Intubated, sedated
[2024-03-14] MEDS: FOLVITE 1 MG PO (08:19)
[2024-03-14] MEDS: MIRALAX 17 GRAMS TUBE (08:19)
[2024-03-14] MEDS: THIAMINE INJECTION 200 MG IV ×2 (08:21→19:50)
[2024-03-14] MEDS: PROTONIX IV 40 MG IV (08:21)
[2024-03-14] MEDS: NSS (PRESERVATIVE FREE) 10 ML IV (08:21)
[2024-03-14 08:24] LABS: Glucose - Point of Care 140 mg/dl (70-99)
[2024-03-14] MEDS: LANTUS 0.0599999999999999978 UNITS SC (09:56)
[2024-03-14] MEDS: PITRESSIN 100 IV ×2 (10:20→17:42)
--- NOTE | 2024-03-14 10:56 | W.PN.CD ---
Today's Communication / Plan
-
trend troponin
echo tomorrow
Impression / Plan
-
33 y male with IDDM with insulin pump since the age of 13, HTN, ESRD on HD, severe PHTN and h/o PE 3 years ago (treated with Eliquis for 6 months, per patient), chronic non-compliance with medical therapy, who presents to the ED with nausea. He
reported missing several sessions of HD. Asked for narcotics. Then PEA arrest.
Patient is critically ill, intubated, on mechanical ventilation, pressors.
PEA arrest
-in setting of severe metabolic acidosis, missed HD
-back in NSR, on vent; will get HD again tomorrow
-echo this admission
A fib with RVR: in setting of critical illness
-back in NSR
-eventually to resume home coreg
-would not recommend OAC given longstanding compliance issues
Elevated troponin
-suspect acute non-ischemic myocardial injury in setting of cardiac arrest, CPR, A fib with RVR, renal failure
-echo
Enlarged RV, severe TR, pulm HTN
-will repeat echo this admission
HTN - assess to resume meds as recovers from cardiac arrest and off pressors
ESRD - urgent HD per nephrology.
IDDM - insulin pump.
- per hospitalist.
Tobacco abuse
CCT 31 minutes.
Physical Exam
Vital Signs/Labs
Vital Signs
Temp Pulse Resp BP Pulse Ox
96.5 F L 72 16 107/89 98
03/14/24 07:12 03/14/24 06:30 03/14/24 06:30 03/14/24 05:31 03/14/24 08:00
03/13/24 03/14/24 03/15/24
06:59 06:59 06:59
Actual Weight 62 kg 68 kg 68 kg
03/14/24 04:22
03/14/24 04:23
PT 16.5 Sec (11.4-14.6) H 03/14/24 04:23
INR 1.35 03/14/24 04:23
APTT 38.5 Sec (23.4-35.0) H 03/14/24 04:23
Magnesium 1.9 mg/dl (1.6-2.3) 03/14/24 04:23
Triglycerides 283 mg/dl (10-149) H 03/13/24 17:05
Triglycerides Cancelled 03/13/24 17:05
LAB Results
03/13/24 03/13/24 03/13/24
07:00 17:05 17:05
Troponin I 0.065 H* Cancelled 2.840 H*
03/14/24
04:22
Troponin I 6.360 H*
Physical Exam
Constitutional: Other (sedated)
EENT: Moist mucous membranes
Cardiovascular: Rhythm & rate is regular, Pedal edema is absent, JVD pressure is normal and Systolic murmur absent
Respiratory: Other (mechanical ventilation)
GI: Soft and Distention absent
Neuro/Psych: Other (sedated)
Data Reviewed
-
Date of Service: March 14, 2024
EKG: Other (Tele: SR 70s)
Labs: Labs Reviewed by me
[2024-03-14 12:14] LABS: Glucose - Point of Care 202 mg/dl (70-99)
[2024-03-14] MEDS: NOVOLOG FLEXPEN-MODERATE RESISTANCE 3 UNITS SC (12:18)
--- NOTE | 2024-03-14 12:43 | W.PN.HOSP.TC ---
Today's Communication/Plan
-
Plan for HD tomorrow and SBT afterwards
Continue with basal bolus regimen for now
Monitor electrolytes and correction per HD
Echocardiogram in the morning
If with fever then start broad-spectrum antibiotics
Assessment / Plan
Assessment / Plan
#Cardiac arrest likely secondary to metabolic abnormalities/noncompliance with hemodialysis
#Acute hypoxic respiratory failure status post intubation mechanical ventilation
IV sedation with propofol and fentanyl
Chest x-ray ETT tube appropriate.
Ventilator management per automotive service consultant
Plan for echocardiogram in the morning
Per CODE 9 sheet - he seems patient received sodium bicarbonate x 3, calcium chloride x 3 and epinephrine x 2
Alcohol level significantly elevated. UDS pending.
Cardiology consultation
Operator Technician following
#Shock likely secondary to dehydration in setting of DKA and recent alcohol significant intake
-Due to tachycardia and A-fib Levophed discontinued and started on vasopressin. Blood cultures in lab. Chest x-ray noted
-If spikes fever start broad-spectrum antibiotics
#DKA secondary to noncompliance
#IDDM
Status post IV insulin drip. Start patient on Lantus and insulin sliding scale per the protocol.
#ESRD on hemodialysis M, W, F
#Hyperkalemia secondary to missed dialysis
# Metabolic acidosis severe secondary to missed dialysis and ketoacidosis diabetic
-Patient with history of missing hemodialysis session and last HD session suspected to be in the hospital on 03/10/2024.
-Status post emergent hemodialysis on admission. Plan for repeat HD in the morning and then SBT afterwards
-Nephrology has been consulted
# Alcohol abuse
-Per patient mother, patient drank a whole bottle of whiskey on 03/12/2024
# Chronic abdominal pain associated with nausea and vomiting likely secondary to gastroparesis
-N.p.o. for now
# Troponin elevation likely demand in the setting of DKA
#Chronic troponin elevation in setting of ESRD on hemodialysis
# Recurrent right pleural effusion
-Chest x-ray with small to moderate pleural effusion with adjacent atelectasis versus pneumonia
#Chronic anemia of renal disease
-Hemoglobin stable
#Essential hypertension
Now with hypotension
#Severe pulmonary hypertension
#Anxiety/depression
-Hold meds till able to tolerate p.o. intake
#Tobacco abuse/severe drug-seeking behavior
-Smokes half pack of cigarettes per day
Significant past medical history of noncompliance with medication and hemodialysis
Full code
DVT prophylaxis�heparin
Total Critical Care Time 40 minutes. I was immediately available to the patient and staff. I personally examined, reviewed labs, diagnostic images/reports, interpretations, treatment plans, discussed patient care with other providers and family
or caregivers (if patient is unable to make decisions), entered orders as appropriate and documented the medical record.
Anticipated Discharge: > 48 hours
Subjective/Interval History
-
Date of Service: March 14, 2024
Remains intubated and sedated
Overnight with hypotension and required to be restarted on pressors
A line was placed
Objective Data
-
Labs:
Laboratory Results
03/14/24 03/14/24 03/14/24
01:01 04:06 04:22
WBC 7.7
Hgb 14.0
Hct 40.7
Plt Count 144
PT
INR
APTT
HCO3 26.1
Sodium 137
Potassium 3.6
Chloride 99
Carbon Dioxide 28
BUN 22 H
Creatinine 3.1 H
Glucose 104 H
Calcium 8.4
03/14/24 03/14/24
04:23 07:01
WBC
Hgb
Hct
Plt Count
PT 16.5 H
INR 1.35
APTT 38.5 H
HCO3 25.5
Sodium 135
Potassium 3.9
Chloride 99
Carbon Dioxide 26
BUN 23 H
Creatinine 3.2 H
Glucose 92
Calcium 8.5
Vital Signs:
Vital Signs
Temp Pulse Resp BP Pulse Ox
99.9 F 87 16 111/52 40
03/14/24 12:00 03/14/24 12:00 03/14/24 12:00 03/14/24 10:30 03/14/24 12:00
I&O
03/13/24 03/14/24 03/15/24
06:59 06:59 06:59
Intake Total 2068.2 / 2174.4 719.2 / 719.2
Balance 2068.2 / 2174.4 719.2 / 719.2
Physical Exam
-
General: Intubated and Appears Chronically Ill
Respiratory: Rhonchi and Other (ETT tube noted)
Cardiac: Regular Rhythm and S1/S2; Negative Murmur, Rub or Gallop
GI: Soft, Nontender, Nondistended and Normal Bowel Sounds; Negative Organomegaly
Rectal: Deferred by Provider
Musculoskeletal: No Clubbing, No Cyanosis, No Edema and Other (Left upper extremity AV fistula)
Skin: Negative Rash
Neuro: Sedated
[2024-03-14] MEDS: TYLENOL ORAL SOLUTION 650 MG TUBE (13:32)
--- NOTE | 2024-03-14 14:29 | PTCARENOTE ---
Patient receivd in AM with assessment as noted. Continues intubated and sedated on Propofol and Fentanyl. Soft wrist restraints maintained for patient safety with current order on chart and documentation as noted. NSR on monitor. T-max 101.3 rectal
at 1400. Tylenol elixir 650 mg via OG tube given. Received with Phenylephrine infusing at 120 mcg/min. At 0930 it was increased to 160 mcg for a MAP of 60 and at 1020 Vasopressin 0.04 was added. Subsequently by 1115 the Phenylephrine was weaned down
to 100 mcg with MAP's maintained >65. Lungs Coarse with some scattered exp wheezes noted. Suctions for scant cuellar secretions. Sao2 100% on vent setting A/C 16-400-40% peep 5. Hypo BS noted. OG tube with good placement noted by auscultation and AM
chest x-ray. No bowel movement today. Continues anuric. HD scheduled for 03/15 AM. Patient's mother updated by phone. Patient currently in bed with soft wrist restraints in place and side rails up. Will continue to monitor closely.
[2024-03-14 16:16] LABS: Glucose - Point of Care 147 mg/dl (70-99)
--- NOTE | 2024-03-14 17:09 | PTCARENOTE ---
T-max 101.6 at 1500, made aware and cooling blanket ordered. Patient placed on blanket at 1600 in automatic mode. Temp at 1700 100.6 rectal. All other assessment data as previously noted.
[2024-03-14 19:59] LABS: Glucose - Point of Care 131 mg/dl (70-99)
--- NOTE | 2024-03-14 20:00 | PTCARENOTE ---
Rec'd pt w/ wrist restrained, diprivan gtt at 25mic, fen gtt at 200 marivel, to keep RASS -3 to -5, ALEXEY at 3mm, sluggish, SR, R rad mike w/ good wave form, flushes well, zeroed, to keep MAP > 65, see flow sheet for titrations, radha gtt at 200 marivel,
vasopressin gtt at 0.04 units, distal pulses via doppler, L arm fistula w/ bruit/thrill, skin warm/dry, #7.5 oral ett- 24 cm- moved to R lip, ac 16, tv 400, 5 peep, 40%, lungscoarse, decr in bases, scant cuellar secretions, sat 100, hypo bowel sounds,
oral [place] to low suction draining brown liquid, irrigated q4h w/ 30 tap h20, anuric
[2024-03-14] MEDS: NSS 1000 IV (21:49)
[2024-03-14 23:56] LABS: Glucose - Point of Care 125 mg/dl (70-99)
[2024-03-15] VITALS (8 sets, daily range): BP systolic 58–164; BP diastolic 23–120; BMI 24.5
--- NOTE | 2024-03-15 | PTCARENOTE ---
sys reviewed, changes noted, CHG bath done, linens changed
[2024-03-15] MEDS: NEO-SYNEPHRINE 250 IV (02:24)
[2024-03-15] MEDS: PITRESSIN 100 IV (02:24)
[2024-03-15] MEDS: DIPRIVAN 100 IV ×3 (03:04→15:51)
[2024-03-15] MEDS: SUBLIMAZE 100 IV ×4 (03:17→18:52)
[2024-03-15] MEDS: NOVOLOG FLEXPEN-MODERATE RESISTANCE SC ×2 (03:42→13:00)
[2024-03-15 03:50] LABS: Glucose - Point of Care 137 mg/dl (70-99)
[2024-03-15 03:54] LABS: Hematocrit 38.3 % (39.0-52.0); Hemoglobin 13.3 g/dL (13.0-18.0)
--- NOTE | 2024-03-15 03:54 | PTCARENOTE ---
Addendum entered by Sonya Mortensen RN 03/15/24 04:08:
ett repos in center at 24 cm
Original Note:
sys reviewed, changes noted, weaning radha as jah
[2024-03-15 04:14] LABS: Blood Urea Nitrogen 32 mg/dl (9-20); Calcium 8.6 mg/dl (8.4-10.2); Carbon Dioxide 21 mmol/L (22-30); Chloride 103 mmol/L (98-107); Estimated Creatinine Clearance 25 ml/min; Glucose 151 mg/dl (70-99); Potassium 4.3 mmol/L (3.5-5.1); Sodium 135 mmol/L (135-145); eGFR 19.43
--- NOTE | 2024-03-15 05:45 | PTCARENOTE ---
pt alarming, unable tosuction tube, BP dropped to 35/20 & HR dropped to 50, pt also inc liquid stool at this time,B ADRIANA Magallon in, radha gtt incr to 200, epi gtt up at 30mic/order
within 5min HR up to 104, bp 213/99, epi off per order & radha off per order B ADRIANA Magallon
[2024-03-15] MEDS: ADRENALIN 250 IV (05:46)
--- NOTE | 2024-03-15 06:00 | PTCARENOTE ---
levophed gtt started at 4mic per order, to keep radha off, rectal trumpet inserted for loose brown stool
[2024-03-15] MEDS: LEVOPHED 250 IV (06:06)
--- NOTE | 2024-03-15 06:18 | W.PN.UPDATE ---
Update Note
Progress Note Update
Patient had a bowel movement and a 5 minute of episode of bradycardia which resulted in severe hypotension 40/20. The patient was on vasopressin and David drip at the time. David drip was increased without any effect. �Epi drip started and the patient
quickly recovered. Epi drip stopped. Patient back at baseline.�
--- NOTE | 2024-03-15 07:40 | W.PN.HOSP.TC ---
Today's Communication/Plan
-
Repeat blood cultures
Empiric broad-spectrum antibiotics
Place PICC line
Remove right femoral catheter
Dialysis today
Wean pressors as able
Spontaneous breathing trial per jewelry model maker
Assessment / Plan
Assessment / Plan
Gen-sedated, intubated, NAD
HEENT-NC, AT, anicteric
Neck-supple
CV-reg, no M, +S1/S2
Lungs-clear B/L
Abd-soft, NT, ND
Ext-no edema
Musculoskeletal-no cyanosis, clubbing
Skin-warm and dry. Right groin femoral triple-lumen catheter, right upper extremity midline
Cardiac arrest - likely secondary to severe metabolic acidosis/noncompliance with hemodialysis
Acute hypoxic respiratory failure - status post intubation mechanical ventilation
Shock -differential diagnosis includes severe volume depletion, cardiogenic, septic, etc. Currently on 2 vasopressors, Levophed and vasopressin. Wean down as able.
Fevers noted on March 14. Admission blood cultures negative so far. White blood cell count has been normal so far, check today. Recheck blood cultures today. Start empiric broad-spectrum antibiotics.
No obvious focus of infection thus far. Last chest x-ray from March 14 shows moderate right pleural effusion, slightly increased compared to previous film. Right femoral triple-lumen catheter noted, ICU team to remove today.
DM1 with DKA -reportedly using insulin pump at home, doubt compliance. Transitioned to Lantus 6 units daily on March 14, moderate resistance NovoLog corrective scale. 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 Glucose 151 this morning, 125 last night.
ESRD - on hemodialysis M, W, F. Due for dialysis today.
Hyperkalemia -resolved.
Severe metabolic acidosis - secondary to missed dialysis and diabetic ketoacidosis.
-Patient with history of missing hemodialysis session and last HD session suspected to be in the hospital on 03/10/2024.
-Status post emergent hemodialysis on admission. Await dialysis today.
-Nephrology has been consulted
Severe alcohol use disorder
-Per patient mother, patient drank a whole bottle of whiskey on 03/12/2024
Chronic abdominal pain associated with nausea and vomiting likely secondary to gastroparesis
-N.p.o. for now
Acute nonischemic myocardial injury -troponin trending down. Etiology likely due to cardiac arrest, CPR, atrial fibrillation, ESRD, etc.
Recurrent right pleural effusion
-Chest x-ray with small to moderate pleural effusion with adjacent atelectasis versus pneumonia
Chronic anemia of renal disease
-Hemoglobin stable
Essential hypertension -currently in shock. Hold antihypertensives.
Severe pulmonary hypertension
Anxiety/depression
-Hold meds till able to tolerate p.o. intake
Tobacco dependence/severe drug-seeking behavior
-Smokes half pack of cigarettes per day
Significant past medical history of noncompliance with medication and hemodialysis
Full code
Anticipated Discharge: > 48 hours
Subjective/Interval History
-
Date of Service: March 15, 2024
Patient seen and examined. Currently sedated, intubated. Looks comfortable.
Objective Data
-
Labs:
Laboratory Results
03/15/24 03/15/24
03:40 07:24
WBC Pending
Hgb 13.3 Pending
Hct 38.3 L Pending
Plt Count Pending
Sodium 135
Potassium 4.3
Chloride 103
Carbon Dioxide 21 L
BUN 32 H
Creatinine 4.0 H
Glucose 151 H
Calcium 8.6
Vital Signs:
Vital Signs
Temp Pulse Resp BP Pulse Ox
97.8 F 83 16 134/120 100
03/15/24 03:51 03/15/24 06:00 03/15/24 06:00 03/15/24 05:45 03/15/24 04:30
I&O
05/12/24 05/13/24 05/14/24
06:59 06:59 06:59
Intake Total 2067.2 / 2173.4 2732.8 / 2732.8
Output Total
Balance 2067. / 2173.4 2702.8 / 2702.8
Review of Systems
-
Unable to obtain full review of systems at this time due to: Acuity and Patient Intubation
[2024-03-15] MEDS: FOLVITE 1 MG PO (07:57)
[2024-03-15] MEDS: PROTONIX IV 40 MG IV (07:57)
[2024-03-15] MEDS: THIAMINE INJECTION 200 MG IV ×2 (07:58→19:23)
[2024-03-15] MEDS: HEPARIN 5000 UNITS SC ×3 (07:58→23:30)
[2024-03-15] MEDS: NSS (PRESERVATIVE FREE) 10 ML IV (07:58)
[2024-03-15] MEDS: NOVOLOG FLEXPEN-MODERATE RESISTANCE 1 UNITS SC (07:59)
[2024-03-15 08:07] LABS: Glucose - Point of Care 175 mg/dl (70-99)
[2024-03-15 08:24] LABS: % Basophils 0.5 % (0-2); % Eosinophils 1.1 % (0-6); % Immature Granulocytes 0.4 % (0-0.5); % Lymphocytes 13.6 % (20.5-51.1); % Monocytes 7.1 % (1.7-9.3); % Neutrophils 77.3 % (42.2-75.2); Absolute Eosinophils 0.1 10^3/uL (0-0.7); Absolute Lymphocytes 1.1 10^3/uL (1.2-3.4); Absolute Monocytes 0.6 10^3/uL (0.1-0.6); Absolute Neutrophils 6.4 10^3/uL (1.4-6.5); Hemoglobin 12.6 g/dL (13.0-18.0); Mean Corp Hgb Conc. 34.1 g/dL (33.0-37.0); Mean Corpuscular Hgb 31.8 pg (27.0-31.0); Mean Corpuscular Volume 93.4 fL (80.0-94.0); Mean Platelet Volume 11.3 fL (7.4-10.4); Nucleated Red Blood Cells % 0.2 % (-); Platelet Count 160 10^3/uL (130-400); Red Blood Cell Count 3.96 10^6/uL (4.70-6.10); Red Cell Dist. Width 18.5 % (11.5-14.5); White Blood Cell Count 8.3 10^3/uL (4.8-10.8)
--- NOTE | 2024-03-15 08:27 | W.PN.CD ---
Today's Communication / Plan
-
Remains on vasopressin and Levophed.
Episode overnight of lower blood pressures requiring increase pressor support. Occurred after BM and was associated with lower heart rates/sinus bradycardia. Suspect vagal episode. Continue to monitor.
Echo today
Impression / Plan
-
33 y male with IDDM with insulin pump since the age of 13, HTN, ESRD on HD, severe PHTN and h/o PE 3 years ago (treated with Eliquis for 6 months, per patient), chronic non-compliance with medical therapy, who presents to the ED with nausea. He
reported missing several sessions of HD. Asked for narcotics. Then PEA arrest.
Patient is critically ill, intubated, on mechanical ventilation, pressors.
PEA arrest
-in setting of severe metabolic acidosis, missed HD
-back in NSR, on vent;
-Additional HD per nephrology
-echo echocardiogram 03/15/2024
Hypotension. Patient currently on vasopressin and low-dose levo. Transient worsening hypotension after BM overnight. Patient with slower heart rates in the 50s sinus bradycardia at the time. Patient placed on epi for short period and pressors
increased. Patient now back to just low-dose levo and vasopressin. Possible vagal episode.
-Monitor.
.
A fib with RVR: in setting of critical illness
-back in NSR
-eventually to resume home coreg
-would not recommend OAC given longstanding compliance issues
Elevated troponin
-Peak 6.3.
-suspect acute non-ischemic myocardial injury in setting of cardiac arrest, CPR, A fib with RVR, renal failure
-echo
Enlarged RV, severe TR, pulm HTN
-will repeat echo this admission
HTN - assess to resume meds as recovers from cardiac arrest and off pressors
ESRD - urgent HD per nephrology.
IDDM - insulin pump.
- per hospitalist.
Tobacco abuse
CCT 35 minutes.
Physical Exam
Vital Signs/Labs
Vital Signs
Temp Pulse Resp BP Pulse Ox
97.8 F 83 16 134/120 99
03/15/24 03:51 03/15/24 06:00 03/15/24 06:00 03/15/24 05:45 03/15/24 08:25
03/14/24 03/15/24 03/16/24
06:59 06:59 06:59
Actual Weight 68 kg 70.9 kg
PT 16.5 Sec (11.4-14.6) H 03/14/24 04:23
INR 1.35 03/14/24 04:23
APTT 38.5 Sec (23.4-35.0) H 03/14/24 04:23
Magnesium 1.9 mg/dl (1.6-2.3) 03/14/24 04:23
Triglycerides 283 mg/dl (10-149) H 03/13/24 17:05
Triglycerides Cancelled 03/13/24 17:05
LAB Results
03/13/24 03/13/24 03/13/24
07:00 17:05 17:05
Troponin I 0.065 H* Cancelled 2.840 H*
03/14/24 03/15/24
04:22 03:40
Troponin I 6.360 H* 2.970 H*
Physical Exam
Constitutional: No acute distress
Cardiovascular: Rhythm & rate is regular
Respiratory: Other (Vented breath sounds)
GI: Soft
Neuro/Psych: Alert
Data Reviewed
-
Date of Service: March 15, 2024
Medical Decision Making: Reviewed Test Results and Review of Case with other Provider (Discussed issues with nursing staff.)
EKG: Report Reviewed by me
Medical Tests (PFT, Pathology etc): Report Reviewed by me
Labs: Labs Ordered by me
--- NOTE | 2024-03-15 08:27 | PHA.VAN.IN ---
Assessment
- Assessment
Renal Function: Patient has ESRD, on chronic Hemodialysis
Hemodialysis Schedule: MWF
Concomitant Antimicrobials: piperacillin/tazobactam
Plan
- Plan
Initial / Loading Dose: 1000mg - now and 500mg at end of HD for total 1500mg initial dose
Maintenance Regimen: dosing by level
Monitoring: random 03/16 0600
Pharmacokinetics Vancomycin I
- -
Patient Age: 33
Patient Sex: Male
Vancomycin Day #: 1
Indication: Bacteremia
Requesting Provider: Dr. Kate
Pertinent Antimicrobial Allergies:
no pertinent antibiotic allergies
Height / Weight:
Height 5 ft 7 in
Actual Weight 70.9 kg
Pertinent Past Medical History: ESRD on HD MWF
- Vital Signs / Lab Results
Temp Pulse Resp BP Pulse Ox
97.8 F 83 16 134/120 99
03/15/24 03:51 03/15/24 06:00 03/15/24 06:00 03/15/24 05:45 03/15/24 08:25
Lab Results - Hematology
03/13/24 03/14/24
06:58 04:22
WBC 5.6 7.7
Lab Results - Chemistry
03/13/24 03/13/24 03/13/24
06:58 17:05 17:05
BUN 29 H Cancelled 18
Creatinine 5.9 H* Cancelled
Estimated Creat Clear
Albumin Cancelled
03/13/24 03/13/24 03/14/24
17:05 21:04 01:01
BUN 20 22 H
Creatinine 2.6 H 2.9 H 3.1 H
Estimated Creat Clear Cancelled
Albumin
03/14/24 03/15/24
04:23 03:40
BUN 23 H 32 H
Creatinine 3.2 H 4.0 H
Estimated Creat Clear 25
Albumin
03/13/24 03/13/24
06:59 17:05
Lactic Acid 6.7 H* 1.9
Microbiology Results
03/13/24 06:58 Blood Culture - Preliminary
Blood/Venous No Growth in 48 hours- Final report to follow
03/13/24 08:58 Blood Culture - Preliminary
Blood/Venous No Growth in 24 hours- Final report to follow
[2024-03-15] MEDS: MIRALAX TUBE (08:41)
[2024-03-15] MEDS: LANTUS 0.0599999999999999978 UNITS SC (08:48)
[2024-03-15] MEDS: VANCOCIN 200 IV (08:52)
--- NOTE | 2024-03-15 09:30 | PTCARENOTE ---
pt on vent , sedated on fentanyl and propofol , NSR with prolong QT on Monitor , BP goal of map of 65, pt is weaned off of Vasopressin as of 929, pt to have picc line placed , blood cultures to be drawn with HD , pt lungs diminished crackles at
bases , abdomen is firm , bowel sounds are hypoactive , oral gastric tube to LIS , anuric , skin intact , dusky fingers and toes
--- NOTE | 2024-03-15 09:36 | PN.DE.MGMTRT ---
Insulin Management
- -
03/15/2024: Diabetes Management Consult:
33 year old male well known to me from recurrent hospital admissions.
PMH: ESRD on HD (MWF), T1DM for 18 years. He was using a Medtronic 770 pump with NovoLog insulin and Guardian sensor.
Pt presented to ED on 03/10-03/11 c/o weakness, abd pain, N/V due DKA and significant volume overload after missing HD. He was stabilized and signed out AMA.
He returned to the ER on 03/13 c/o N/V, asking for IV narcotics and was found to be hypotensive, became bradycardic and went into PEA arrest.
Patient is critically ill, intubated, on mechanical ventilation and pressors. Unable to interview at this time.
GAP closed on 03/14 and he was transitioned to SQ insulin.
Remains NPO, on Basal insulin Lantus 6 units in AM. Glucose stable w/o elevations or hypoglycemia.
Will make no changes to current regimen. Cont Lantus 6 units in AM and low corrective
Will closely follow and add standing NovoLog dose if condition changes or tube feeds have been started
Diabetes plan of care discussed with pt's Nurse.
Diabetes History
- -
Type of Diabetes: 1
Pre-Admission Diabetes Regimen
03/15/24
03:40
Creatinine 4.0 H
Insulin Pump Settings
IP Diabetes Regimen
03/14/24 03/14/24 03/14/24
12:02 16:03 19:47
Glucose
POC Glucose 202 H 147 H 131 H
03/14/24 03/15/24 03/15/24
23:44 03:39 03:40
Glucose 151 H
POC Glucose 125 H 137 H
03/15/24
07:55
Glucose
POC Glucose 175 H
Meal type: Dinner
Meal type: Lunch
Patient Education
[2024-03-15] MEDS: ZOSYN 50 IV ×3 (10:22→23:29)
--- NOTE | 2024-03-15 12:35 | W.PN.INTV ---
Today's Communication / Plan
Recommendations
Sedation holiday
MV weaning
HD
Atbs
SDS, UDS
Assessment
-
Mr Luis Angel Soliz is a 33-year-old male with past medical history of diabetes melitis type I (on insulin pump), ESRD on hemodialysis MWF, hypertension, with multiple ED visits over the past week, noncompliance with dialysis and diabetic therapy,
now presents with abdominal pain, nausea. 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 At ER showed interim increasing lethargy
and bradycardia, sustained witnessed cardiac arrest at ER SB and then PEA, promptly intubated, R femoral TLC placed.
Cardiac arrest, PEA/asystole
Requiring CPR in the ED
VDRF, post Cardiac Arrest, intubated 03/13/2024
Multiple missed dialysis sessions
Last dialysis 03/05 and 03/10
Fever
Acute DKA
Metabolic acidemia, elevated lactate
Chronic abdominal pain/nausea/emesis, waxing and waning
Gastroparesis
Hyperkalemia
Hyponatremia
chronic, baseline sodium 129-134
Elevated troponin
Elevated alcohol level
Prolonged QT
Conditions present prior to admission
Chronic right pleuroparenchymal process
s/p rt Thora 02/17/24, -1800cc transudate
Cytology negative
Anemia
History of DM type I
Insulin pump, history of malfunction, noncompliance
End-stage renal disease
Secondary to diabetic nephropathy
Noncompliant with dialysis
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
PA pressure 65
Ascites, small pericardial effusion per prior imaging
Suspected sleep disordered breathing ongoing tobacco use
History of hypoxia on home oxygen
Details unclear, set up through [facility]
Anxiety/depression
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
Reported history of PE 2020, treated 6m OAC
History of medical noncompliance
Ongoing tobacco use, 10+ pack year
Plan/recommendations
Remains critically ill
Requiring pressors
NE now at low dose, neosynephrine off 03-15
Suspect asystole was due to to electrolyte abnormalities, lack of dialysis compliance, ETOH intoxication, and potentially illicit drug use (drug screen not taken on adm)
Elevated alcohol levels noted on adm
Patient also has history of hypoxia on home oxygen for unclear reasons
Echocardiogram February 2024 normal LV function with RV pressure overload and RV dilatation, PA pressure 50. This appears to be chronic and stable and multifactorial. No comment on right ventricular function
History of PE noted per records
HIV testing negative in recent adm
Continue with volume-cycled ventilation
AC 16/400/5/40%
Daily sedation holiday
SBT, weaning as tolerated
Fever
Blood cxs 03-13 with no growth, 03-14 pending
Continue HD
Completed session on 03/13
For HD 03-15
Patient has right femoral groin line in place (ER)
Transition to RUE PICC 03-15
Remove R fem line and cx tip 03-15
Follow electrolytes prolonged QT on EKG noted. This has been present during prior studies
Continue with close monitoring of blood sugar, adjusting insulin as appropriate
Unfortunately, patient with significant noncompliance in the past per reviewing records
Insulin drip discontinued, follow blood sugars
Reviewed CT abdomen/. Moderate right-sided pleural effusion with likely trapped lung physiology, area of pleural thickening
This appears to be chronic as far back as April 2023
Was not present on CT chest April 2021
Medical noncompliance, patient apparently with history of signing out AMA after not receiving narcotic therapy, also follows at [facility]
Check UDS, SDS
Minimize narcotic therapy given nausea/emesis, gastroparesis
Continue n.p.o. for now
DVT prophylaxis: Subcutaneous heparin every 8 hours
GI prophylaxis: On pantoprazole
Critical care time: 35 min
D/w MDT
Data:
TTE 02-18-2024:
Normal left ventricular systolic function. LV ejection fraction is 60% by volumetric assessment.
Mild concentric left ventricular hypertrophy.
The right ventricle is dilated. Septum flattened in systole consistent with RV pressure overload.
Subjective Dataa
Subjective Data
Date of Service:
Date of Service: March 15, 2024
Chief Complaint: Supply Room Clerk Follow Up
Subjective:
Continues on mechanical ventilation, antibiotics and pressors
For hemodialysis today
Sedated
Right femoral triple-lumen catheter stabilization, line was placed at the ER at time of cardiac arrest at the location. Reportedly patient presented cardiac arrest (PEA/asystole at the ER)
Of note, drug screen not collected
Noted unfortunately chronic history of medical noncompliance
Review of Systems
General: Unobtainable - Sedation
Objective Data
Data Reviewed
Vital Signs / I&O / Oxygen:
Vital Signs
Temp Pulse Resp BP Pulse Ox
97.8 F 68 16 58/36 9
03/15/24 08:00 03/15/24 10:30 03/15/24 10:30 03/15/24 09:02 03/15/24 11:14
Intake and Output
03/14/24 03/15/24 03/16/24
06:59 06:59 06:59
Intake Total 8.2 / 2174.4 2732.8 / 2822.5 601.0 / 601.0
Output Total
Balance 2068.2 / 2174.4 2702.8 / 2792.5 601.0 / 601.0
SaO2 [A/C] 99
SaO2 9
Physical Exam
General: Respiratory Distress (n), Other (Left upper extremity AV fistula) and Other (Right upper extremity A-line, right groin line, RUE midline)
HEENT: Normocephalic, Anicteric and Moist Mucous Membranes
Cardiovascular: S1-S2, Regular Rhythm, Murmur (n), Rub (n) and Peripheral Edema
Respiratory: Wheeze (mild), Crackles (Mild at base), Rhonchi (n), Non-Labored Respirations, Stridor (n) and ET Tube
GI: Soft and Non Distended
Neurology: Other (sedated)
Skin: Cyanosis (n), Jaundice (n) and Rash (n)
Labs/Micro/Reports
Lab Data
03/15/24 07:56
Microbiology
03/13/24 08:58 Blood/Venous Blood Culture - Preliminary
No Growth in 48 hours- Final report to follow
03/13/24 06:58 Blood/Venous Blood Culture - Preliminary
No Growth in 48 hours- Final report to follow
[2024-03-15 13:20] LABS: Glucose - Point of Care 140 mg/dl (70-99)
[2024-03-15 13:29] LABS: Amphetamines Negative (Negative); Barbiturates Negative (Negative); Benzodiazepines Negative (Negative); Buprenorphine Negative (Negative); Cocaine Negative (Negative); Methamphetamines Positive (Negative)
[2024-03-15 13:30] LABS: Marijuana Negative (Negative); Methadone Negative (Negative); Opiates Negative (Negative); Phencyclidine Negative (Negative); Tricyclic Antidepressants Negative (Negative)
[2024-03-15 13:46] LABS: Fentanyl, Urine Positive (Negative)
--- NOTE | 2024-03-15 14:12 | CM ---
Addendum entered by Williams Villalpando 03/15/24 15:08:
CM met with pt's mother Cherise and father Cm. Both pt's mother and pt's father overwhelmed regarding pt's situation, being non compliant with HD treatment schedule, alcohol use. Pt's patents stated they have been using all necessary
tools/approaches to help their son and unfortunately there is no real outcomes. Parents stated that they have been talking to a social worked from [facility] HD treatment center, tried to help their son directly, tried to 302 the pt in the past and were
told that pt had no acute psychiatric symptoms. Pt's parents requested pt be evaluated by Psychiatrist. Emotional support offred and provided.
CM assured pt's parents that conversation will be conducted with the pt after his extubation. Pt is referred to [facility] team for D&A treatment resources.
Original Note:
CM following re: discharge planning.
Discussed in Rounds, reviewed pt's chart, met with pt. CM met with pt's mother yesterday.
Per rounds meeting, pt remains intubated, continue supportive care.
Pt resides with his mother in a split level home with no steps to enter. The patient receives HD -- at [facility], uses [facility] transport, has been on HD treatment for 3 years and has not been in compliance with HD treatment and had
multiple visits to ED in the next few months and h/o leaving AMA. 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
D/C plan: uncertain at this time and will depend on pt's progress.
CM will follow with discharge plan updates as hospitalization progresses
--- NOTE | 2024-03-15 14:28 | PTCARENOTE ---
pt mom in room , updated on condition and plan of care, pt tolerating HD , Dr Short spoke to pts mother re outcomes and pt condition
[2024-03-15] MEDS: VANCOCIN HCL 500 MG 100 IV (14:33)
--- NOTE | 2024-03-15 15:17 | W.PN.NEPH.HD ---
Assessment
-
- intubated and sedated
- on pressors
- likely for extubation later
Progress Note - Hemodialysis
-
Date of Service: March 15, 2024
Duration: 30 minutes and 3 hours
Potassium Bath: 3
Calcium Bath: 2.5
Opti-Dialyzer: 160
Ultrafiltration: Other
Blood Flow: 400
Dialysate Flow: 600
[2024-03-15 15:35] LABS: Blood Urea Nitrogen 14 mg/dl (9-20); Calcium 8.7 mg/dl (8.4-10.2); Carbon Dioxide 27 mmol/L (22-30); Chloride 100 mmol/L (98-107); Estimated Creatinine Clearance 52 ml/min; Glucose 140 mg/dl (70-99); Potassium 3.6 mmol/L (3.5-5.1); Sodium 137 mmol/L (135-145); eGFR 47.47
--- NOTE | 2024-03-15 16:39 | PTCARENOTE ---
pt completed HD , R picc line in place and reposidioned by VAT RN , pt femoral TLC DC as ordered, pt is now on levoped at 6mcg
[2024-03-15 18:25] LABS: Glucose - Point of Care 134 mg/dl (70-99)
--- NOTE | 2024-03-15 19:23 | PTCARENOTE ---
pt had spontaneous awaking trial at [id number] , pt opens eyes and able to squeeze hand on command , pt then bitting ETT and unable to get tital volumes , pt placed back on sedation and pain Meds
--- NOTE | 2024-03-15 20:00 | PTCARENOTE ---
Rec'd pt with wrists restrained, diprivan gtt at 20 marivel, fent gtt at 200mic, SR, R rad mike w/ good wave form, flushes well, to keep map > 65, levo at 2 marivel, distal pulses via doppler, #7.5 oral ett- 25 cm- moved to center, ac 16, tv 400, 5 peep,
40%, sat 99, lungs decr in bases, hypo bowel sounds, oral gastric to suction w/ scant drainage, irrigated w/ 30 ml tap h20 q4hr, rectal trumpet to str drainage bag draining scant brown, anuric
[2024-03-15] MEDS: NSS 1000 IV (22:12)
[2024-03-15 23:40] LABS: Glucose - Point of Care 102 mg/dl (70-99)
[2024-03-16] VITALS (14 sets, daily range): BP systolic 75–201; BP diastolic 44–92; BMI 24.0
--- NOTE | 2024-03-16 | PTCARENOTE ---
sys reviewed, changes noted, mike dsg changed, CHG bath done, linens changed
[2024-03-16] MEDS: DIPRIVAN 100 IV ×4 (00:15→17:27)
[2024-03-16] MEDS: SUBLIMAZE 100 IV ×2 (00:15→05:38)
--- NOTE | 2024-03-16 02:50 | PTCARENOTE ---
bp labile- levo on and off
[2024-03-16 03:29] LABS: % Basophils 0.9 % (0-2); % Eosinophils 2.6 % (0-6); % Immature Granulocytes 0.6 % (0-0.5); % Lymphocytes 12.8 % (20.5-51.1); % Monocytes 8.9 % (1.7-9.3); % Neutrophils 74.2 % (42.2-75.2); Absolute Basophils 0.1 10^3/uL (0-0.2); Absolute Eosinophils 0.2 10^3/uL (0-0.7); Absolute Lymphocytes 0.9 10^3/uL (1.2-3.4); Absolute Monocytes 0.6 10^3/uL (0.1-0.6); Absolute Neutrophils 4.9 10^3/uL (1.4-6.5); Hematocrit 34.8 % (39.0-52.0); Hemoglobin 11.8 g/dL (13.0-18.0); Mean Corp Hgb Conc. 33.9 g/dL (33.0-37.0); Mean Corpuscular Hgb 31.6 pg (27.0-31.0); Mean Corpuscular Volume 93.3 fL (80.0-94.0); Mean Platelet Volume 10.2 fL (7.4-10.4); Nucleated Red Blood Cells % 0 % (-); Platelet Count 139 10^3/uL (130-400); Red Blood Cell Count 3.73 10^6/uL (4.70-6.10); Red Cell Dist. Width 18.7 % (11.5-14.5); White Blood Cell Count 6.6 10^3/uL (4.8-10.8)
[2024-03-16 03:54] LABS: Blood Urea Nitrogen 23 mg/dl (9-20); Calcium 8.2 mg/dl (8.4-10.2); Carbon Dioxide 24 mmol/L (22-30); Chloride 99 mmol/L (98-107); Estimated Creatinine Clearance 31 ml/min; Glucose 152 mg/dl (70-99); Magnesium 1.6 mg/dl (1.6-2.3); Potassium 3.5 mmol/L (3.5-5.1); Sodium 136 mmol/L (135-145); Triglycerides 185 mg/dl (10-149)
--- NOTE | 2024-03-16 03:56 | PTCARENOTE ---
sys reviewed, bp cont to be labile, diprivan incr due to biting on tube, pt w/ sm cuff leak- resp therapist in to assess, ett repos on rside at 25cm
--- NOTE | 2024-03-16 05:23 | PTCARENOTE ---
biting on ett, diprivan incr, bp dropped, levo restarted
[2024-03-16] MEDS: LEVOPHED 250 IV (05:37)
[2024-03-16 05:43] LABS: Glucose - Point of Care 145 mg/dl (70-99)
--- NOTE | 2024-03-16 07:15 | W.PN.INTV ---
Today's Communication / Plan
Recommendations
Weaning trial qd
Atb
HD
SDS
Assessment
-
Mr Luis Angel Soliz is a 33-year-old male with past medical history of diabetes melitis type I (on insulin pump), ESRD on hemodialysis MWF, hypertension, with multiple ED visits over the past week, noncompliance with dialysis and diabetic therapy,
now presents with abdominal pain, nausea. 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 At ER showed interim increasing lethargy
and bradycardia, sustained witnessed cardiac arrest at ER SB and then PEA, promptly intubated, R femoral TLC placed.
Cardiac arrest, PEA/asystole at ED 03-13
Given CPR after admission to ED
VDRF, post Cardiac Arrest, intubated 03/13/2024
Multiple missed dialysis sessions
Last dialysis 03/05 and 03/10
Fever
Acute DKA
Metabolic acidemia, elevated lactate
Chronic abdominal pain/nausea/emesis, waxing and waning
Gastroparesis
Hyperkalemia
Hyponatremia
chronic, baseline sodium 129-134
Elevated troponin
Elevated alcohol level
Prolonged QT
Conditions present prior to admission
Chronic right pleuroparenchymal process
s/p rt Thora 02/17/24, -1800cc transudate
Cytology negative
Anemia
History of DM type I
Insulin pump, history of malfunction, noncompliance
End-stage renal disease
Secondary to diabetic nephropathy
Noncompliant with dialysis
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
ePAP pressure 65
Ascites, small pericardial effusion per prior imaging
Suspected sleep disordered breathing ongoing tobacco use
History of hypoxia on home oxygen
Details unclear, set up through [facility]
Anxiety/depression
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
Reported history of PE 2020, treated 6m OAC
History of medical noncompliance
Ongoing tobacco use, 10+ pack year
Plan/recommendations
Remains critically ill but progressively stabilizing
Requiring pressors
NE now at low dose, neosynephrine off 03-15
Suspect asystole was due to to electrolyte abnormalities, lack of dialysis compliance, ETOH intoxication, and potentially illicit drug use (drug screen not taken on adm)
Elevated alcohol levels noted on adm (negative level on 3 other tests in January and February 2024)
Patient also has history of hypoxia on home oxygen for unclear reasons
Echocardiogram February 2024: normal LV function with RV pressure overload and RV dilatation, PA pressure 50, this appears to be chronic and stable and multifactorial, no comment on right ventricular function
History of PE noted per records, currenty not on outpatient AC
HIV testing negative in recent adm
Follow up TTE 03-15 with LVEF 60-65%, dilated hypokinetic RV, mild-mod TR: overall no change c/w 02-18-24
Continue with volume-cycled ventilation
AC 16/400/5/40% (POx 97%)
Daily sedation holiday
SBT, weaning as tolerated
Noted h/o medical noncompliance, ETOH use, suspected illicit drug use, suspected personality disorder
SBT appropriate 03-16, tolerated 1 h trial, f/u ABG 03-16 unfortunately with resp acidosis and marginal MS and strength, returned to ACV
Resume weaning trial 03-17 after early AM HD (will benefit from being first HD patient in AM tomorrow)
May need to extubate on low dose propofol if deemed ready for extubation given above mentioned social and personality issues
Will not be able to use dexmedetomidine if QTc remains significantly elevated
Fever
Blood cxs - with no growth, 03-15 so far negative
No resp secs sent
Scanty UO for cx
Started vanco/zosyn 03-15
MRSA screening negative, d/c vanco 03-16
On chronic HD
Completed session on 03/13 and 03-15
Received R femoral groin line in place at ER
Transitioned to RUE PICC 03-15
Removed R fem line and cx tip 03-15, so far no growth
Follow electrolytes prolonged QT on EKG noted. This has been present during prior studies
Continue with close monitoring of blood sugar, adjusting insulin as appropriate
Unfortunately, patient with significant noncompliance in the past per reviewing records
Insulin drip discontinued, follow blood sugars
Reviewed CT abdomen/. Moderate right-sided pleural effusion with likely trapped lung physiology, area of pleural thickening
This appears to be chronic as far back as April 2023, was not present on CT chest April 2021
Medical noncompliance, patient apparently with history of signing out AMA after not receiving narcotic therapy, also follows at [facility]
Checked UDS, SDS 03-13
Cannot rule out positive U methamphetamine could be secondary to use of trazodone: d/w lab, pending serum drug screen, depending on results will resend out new blood sample or previous sample if still appropriate for analysis
Minimize narcotic therapy given nausea/emesis, gastroparesis
Continue n.p.o. for now
Will benefit from Psychiatry consultation once extubated and interactive
Per family inpatient rehab was coordinated by HD center but unfortunately not approved by insurance in past
DVT prophylaxis: Subcutaneous heparin every 8 hours
GI prophylaxis: On pantoprazole
D/w patient's mother at bedside on a daily basis, all questions answered to satisfaction
Critical care time: 35 min
D/w MDT
Data:
TTE 02-18-2024:
Normal left ventricular systolic function. LV ejection fraction is 60% by volumetric assessment.
Mild concentric left ventricular hypertrophy.
The right ventricle is dilated. Septum flattened in systole consistent with RV pressure overload.
Subjective Dataa
Subjective Data
Date of Service:
Date of Service: March 16, 2024
Chief Complaint: Web Services Professional Follow Up
Subjective:
No major events reported overnight
Reportedly, seemingly attempted self-extubation earlier today
Continues on mechanical ventilation and sedation, noted intermittent agitation
Remains afebrile
Not scheduled for hemodialysis today
Review of Systems
General: Unobtainable - Sedation
Objective Data
Data Reviewed
Vital Signs / I&O / Oxygen:
Vital Signs
Temp Pulse Resp BP Pulse Ox
98.2 F 72 16 201/92 97
03/15/24 23:44 03/16/24 06:30 03/16/24 06:30 03/16/24 02:47 03/16/24 06:30
Intake and Output
03/15/24 03/16/24 03/17/24
06:59 06:59 06:59
Intake Total 2732.8 / 2822.5 2271.6 / 2271.6
Output Total 50 / 50
Balance 2702.8 / 2792.5 2221.6 / 2221.6
SaO2 [A/C] 99
SaO2 97
Physical Exam
General: Respiratory Distress (n), Other (Left upper extremity AV fistula) and Other (Right upper extremity A-line, right groin line, RUE midline)
HEENT: Normocephalic, Anicteric and Moist Mucous Membranes
Cardiovascular: S1-S2, Regular Rhythm, Murmur (n), Rub (n), JVD (n), Peripheral Edema (trace) and Other (RUE PICC)
Respiratory: Wheeze (mild), Crackles (Mild at base), Rhonchi (n), Non-Labored Respirations, Stridor (n) and ET Tube
GI: Soft and Non Distended
Neurology: Other (sedated)
Skin: Cyanosis (n), Jaundice (n) and Rash (n)
Labs/Micro/Reports
Lab Data
03/16/24 03:12
03/16/24 03:12
Microbiology
03/13/24 06:58 Blood/Venous Blood Culture - Preliminary
No Growth in 72 hours- Final report to follow
03/13/24 08:58 Blood/Venous Blood Culture - Preliminary
No Growth in 48 hours- Final report to follow
--- NOTE | 2024-03-16 07:34 | W.PN.HOSP.TC ---
Today's Communication/Plan
-
Spontaneous breathing trial
Assessment / Plan
Assessment / Plan
Gen-sedated, intubated, NAD
HEENT-NC, AT, anicteric
Neck-supple
CV-reg, no M, +S1/S2
Lungs-clear B/L
Abd-soft, NT, ND
Ext-no edema
Musculoskeletal-no cyanosis, clubbing
Skin-warm and dry. Right groin femoral triple-lumen catheter, right upper extremity midline
Cardiac arrest - likely secondary to severe metabolic acidosis/noncompliance with hemodialysis.
Acute hypoxic respiratory failure - status post intubation mechanical ventilation. Spontaneous breathing trial per braider setter. Chest x-ray from 03/15 shows small bilateral pleural effusions, right greater than left, with increased interstitial
markings suggesting pulmonary edema. Weight is down overnight, but still up from admission.
If unable to extubate, consider starting tube feeds today. Will defer to intensive care team.
Shock -differential diagnosis includes severe volume depletion, cardiogenic, septic, etc. weaned off vasopressors. Mild hypotension noted.
Fevers noted on March 14. Admission blood cultures negative so far, repeat cultures 03/15 pending. White blood cell count has been normal so far. Continue empiric broad-spectrum antibiotics, vancomycin and Zosyn.
No obvious focus of infection thus far.
DM1 with DKA -reportedly using insulin pump at home, doubt compliance. Transitioned to Lantus 6 units daily on March 14, moderate resistance NovoLog corrective scale. Consult diabetes EVENT STAFF. Glucose 152 this morning, 102 last night.
ESRD - on hemodialysis M, W, F.
Hyperkalemia -resolved.
Severe metabolic acidosis - secondary to missed dialysis and diabetic ketoacidosis.
-Patient with history of missing hemodialysis sessions.
Severe alcohol use disorder
-Per patient mother, patient drank a whole bottle of whiskey on 03/12/2024
Chronic abdominal pain associated with nausea and vomiting likely secondary to gastroparesis
Acute nonischemic myocardial injury -troponin trending down. Etiology likely due to cardiac arrest, CPR, atrial fibrillation, ESRD, etc.
Recurrent right pleural effusion
-Chest x-ray with small to moderate pleural effusion with adjacent atelectasis versus pneumonia
Chronic anemia of renal disease
-Hemoglobin stable
Essential hypertension -currently in shock. Hold antihypertensives.
Severe pulmonary hypertension
Anxiety/depression
-Hold meds till able to tolerate p.o. intake
Tobacco dependence/severe drug-seeking behavior
-Smokes half pack of cigarettes per day
Significant past medical history of noncompliance with medications and hemodialysis
Full code
Anticipated Discharge: > 48 hours
Subjective/Interval History
-
Date of Service: March 16, 2024
Patient seen and examined. Remains intubated, sedated.
Objective Data
-
Labs:
Laboratory Results
03/16/24
03:12
WBC 6.6
Hgb 11.8 L
Hct 34.8 L
Plt Count 139
Sodium 136
Potassium 3.5
Chloride 99
Carbon Dioxide 24
BUN 23 H
Creatinine 3.2 H
Glucose 152 H
Calcium 8.2 L
Vital Signs:
Vital Signs
Temp Pulse Resp BP Pulse Ox
98.2 F 72 16 201/92 97
03/15/24 23:44 03/16/24 06:30 03/16/24 06:30 03/16/24 02:47 03/16/24 06:30
I&O
03/15/24 03/16/24 03/17/24
06:59 06:59 06:59
Intake Total 2732.8 / 2822.5 2271.6 / 2271.6
Output Total 50 / 50
Balance 2702.8 / 2792.5 2221.6 / 2221.6
Review of Systems
-
Unable to obtain full review of systems at this time due to: Acuity and Patient Intubation
[2024-03-16] MEDS: SUBLIMAZE 50 MCG IV ×2 (07:36→13:51)
[2024-03-16] MEDS: NSS (PRESERVATIVE FREE) 10 ML IV (07:49)
[2024-03-16] MEDS: ZOSYN 50 IV ×3 (07:49→23:39)
[2024-03-16] MEDS: THIAMINE INJECTION 200 MG IV (07:49)
[2024-03-16] MEDS: PROTONIX IV 40 MG IV (07:49)
[2024-03-16] MEDS: HEPARIN 5000 UNITS SC ×3 (07:50→23:39)
[2024-03-16] MEDS: MIRALAX 17 GRAMS TUBE (07:50)
[2024-03-16] MEDS: FOLVITE 1 MG PO (07:50)
[2024-03-16 08:04] LABS: Glucose - Point of Care 127 mg/dl (70-99)
--- NOTE | 2024-03-16 08:04 | W.PN.CD ---
Today's Communication / Plan
-
wean levophed
SBT
Impression / Plan
-
33 y male with IDDM with insulin pump since the age of 13, HTN, ESRD on HD, severe PHTN and h/o PE 3 years ago (treated with Eliquis for 6 months, per patient), chronic non-compliance with medical therapy, who presents to the ED with nausea. He
reported missing several sessions of HD. Asked for narcotics. Then PEA arrest.
Patient is critically ill, intubated, on mechanical ventilation, pressors.
PEA arrest
-in setting of severe metabolic acidosis, missed HD
-back in NSR, on vent;
-Additional HD per nephrology
- echocardiogram 03/15/2024--normal lvef, rv dilated and HK but no change from priorr
Hypotension. Patient currently on vasopressin and low-dose levo.
-weaning off slowly
.
A fib with RVR: in setting of critical illness
-back in NSR
-eventually to resume home coreg
-would not recommend OAC given longstanding compliance issues
acute non-ischemic myocardial injury in setting of cardiac arrest, CPR, A fib with RVR, renal failure
echo without new regional wall motion
Enlarged RV, severe TR, pulm HTN
-chronic stable
HTN - assess to resume meds as recovers from cardiac arrest and off pressors
ESRD - urgent HD per nephrology.
IDDM - insulin pump.
- per hospitalist.
Tobacco abuse
Subjective:
-intubated, weaning sedation but comforatable
03/15/24 Echo:
CONCLUSIONS
Normal left ventricular systolic function.
Left ventricular ejection fraction is 60-65% .
Dilated , hypokinetic RV
Mild to moderate tricuspid regurgitation.
Pulmonary hypertension
CCT 31 minutes.
Physical Exam
Vital Signs/Labs
Vital Signs
Temp Pulse Resp BP Pulse Ox
97.4 F 72 16 201/92 97
03/16/24 07:44 03/16/24 06:30 03/16/24 06:30 03/16/24 02:47 03/16/24 07:45
03/15/24 03/16/24 03/17/24
06:59 06:59 06:59
Actual Weight 70.9 kg 69.4 kg
03/16/24 03:12
03/16/24 03:12
PT 16.5 Sec (11.4-14.6) H 03/14/24 04:23
INR 1.35 03/14/24 04:23
APTT 38.5 Sec (23.4-35.0) H 03/14/24 04:23
Magnesium 1.6 mg/dl (1.6-2.3) 03/16/24 03:12
Triglycerides 185 mg/dl (10-149) H 03/16/24 03:12
LAB Results
03/13/24 03/13/24 03/14/24
17:05 17:05 04:22
Troponin I Cancelled 2.840 H* 6.360 H*
03/15/24
03:40
Troponin I 2.970 H*
Physical Exam
Constitutional: No acute distress
Cardiovascular: Rhythm & rate is regular, Pedal edema is absent, JVD pressure is normal, Systolic murmur absent, Diastolic murmur absent and S1S2 is normal
Respiratory: Respiratory effort normal, Lungs clear to auscul., Wheeze Absent, Crackles Absent and Rhonchi Absent
Neuro/Psych: AO x 3
Data Reviewed
-
Date of Service: March 16, 2024
EKG: Other (tele sinus)
[2024-03-16] MEDS: LANTUS 0.0599999999999999978 UNITS SC (08:09)
--- NOTE | 2024-03-16 09:04 | PHA.VAN.FU ---
Vancomycin Assessment / Plan
- Assessment
Hemodialysis Schedule: MWF
Last Hemodialysis performed: 03/15
WBC's are: WNL
In the past 24 hrs, patient has been: Afebrile
Concomitant Antimicrobials: piperacillin/tazobactam
- Assessment - Therapeutic Drug Monitoring
Random Level: 14 - drawn ~12.5H after previous dose of 500mg (received total of 1500mg)
- Dosing Plan
Dosing by Level: Hold off on dosing today (will plan to re-dose post HD tomorrow)
- Monitoring Plan
No level(s) ordered at this time: consider next level prior to HD Fri
- Follow Up
Pharmacy will continue to follow.
Vancomycin Follow UP
- -
Patient Age: 33
Patient Sex: Male
Vancomycin Day #: 2
Indication: Bacteremia
Requesting Provider: Dr. Kate
Pertinent Antimicrobial Allergies:
no pertinent antibiotic allergies
Height / Weight:
Height 5 ft 7 in
Actual Weight 69.4 kg
Pertinent Past Medical History: ESRD on HD MWF
- Vital Signs / Lab Results
Temp Pulse Resp BP Pulse Ox
97.4 F 72 16 201/92 97
03/16/24 07:44 03/16/24 06:30 03/16/24 06:30 03/16/24 02:47 03/16/24 07:45
Lab Results - Hematology
03/14/24 03/15/24 03/16/24
04:22 07:56 03:12
WBC 7.7 8.3 6.6
Lab Results - Chemistry
03/13/24 03/13/24 03/13/24
17:05 17:05 17:05
BUN Cancelled 18
Creatinine Cancelled 2.6 H
Estimated Creat Clear Cancelled
03/13/24 03/14/24 03/14/24
21:04 01:01 04:23
BUN 20 22 H 23 H
Creatinine 2.9 H 3.1 H 3.2 H
Estimated Creat Clear
03/15/24 03/15/24 03/15/24
03:40 14:13 14:58
BUN 32 H Cancelled 14
Creatinine 4.0 H Cancelled 1.9 H
Estimated Creat Clear 25 Cancelled 52
03/16/24
03:12
BUN 23 H
Creatinine 3.2 H
Estimated Creat Clear 31
03/13/24
17:05
Lactic Acid 1.9
Lab Results - Urine
03/15/24
12:37
Urine Nitrite (Reflex) Cancelled
Leukocyte Esterase Rfl Cancelled
Microbiology Results
03/13/24 08:58 Blood Culture - Preliminary
Blood/Venous No Growth in 72 hours- Final report to follow
03/13/24 06:58 Blood Culture - Preliminary
Blood/Venous No Growth in 72 hours- Final report to follow
Therapeutic Drug Monitoring
Random Vancomycin 14.0 ug/ml 03/16/24 03:12
--- NOTE | 2024-03-16 09:21 | PN.DE.MGMTRT ---
Insulin Management
- -
03/16/2024: Diabetes Management Consult Follow up:
33 year old male well known to me from recurrent hospital admissions.
PMH: ESRD on HD (MWF), T1DM for 18 years. He was using a Medtronic 770 pump with NovoLog insulin and Guardian sensor.
Pt presented to ED on 03/10-03/11 c/o weakness, abd pain, N/V due DKA and significant volume overload after missing HD. He was stabilized and signed out AMA.
He returned to the ER on 03/13 c/o N/V, asking for IV narcotics and was found to be hypotensive, became bradycardic and went into PEA arrest.
Patient is critically ill, intubated, on mechanical ventilation and pressors. Unable to interview at this time.
He has transitioned to SQ insulin.
Remains NPO, on Basal insulin Lantus 6 units in AM. Glucose stable, 102 to 145, no elevations or hypoglycemia.
Will make no changes to current regimen. Cont Lantus 6 units in AM and low corrective
Will closely follow and add standing NovoLog dose if condition changes or tube feeds have been started
Diabetes plan of care discussed with pt's Nurse.
Diabetes History
- -
Type of Diabetes: 1
Pre-Admission Diabetes Regimen
03/15/24 03/15/24 03/16/24
14:13 14:58 03:12
Creatinine Cancelled 1.9 H 3.2 H
Insulin Pump Settings
IP Diabetes Regimen
03/15/24 03/15/24 03/15/24
13:08 14:13 14:58
Glucose Cancelled 140 H
POC Glucose 140 H
03/15/24 03/15/24 03/16/24
18:14 23:27 03:12
Glucose 152 H
POC Glucose 134 H 102 H
03/16/24 03/16/24
05:31 07:53
Glucose
POC Glucose 145 H 127 H
Patient Education
--- NOTE | 2024-03-16 10:40 | PTCARENOTE ---
pt sedated on vent , NSR on monitor , prolong QT , BP goal for map of 65, he has been off of Levophed since 929 , pt is currently on a spontaneous awaking trial , at 929 fentanly and propofol off , he was agitated earlier today and needed a
fentanyl bolus he was fighting ventilator and bitting at ETT , given at 07 , pt scheduled for HD tommorow , plan is to extubate today if pt is appropiate
[2024-03-16] MEDS: NOVOLOG FLEXPEN-LOW RESISTANCE SC ×2 (13:00→17:08)
[2024-03-16 13:10] LABS: B.E. -0.9 mmol/L; Glucose - Point of Care 131 mg/dl (70-99); HCO3 26.4 mmol/L (21-28); O2 Saturation % 98.7 % (94-98); PCO2 55 mmHg (35-48); PO2 98 mmHg (83-108); pH 7.29 (7.35-7.45)
--- NOTE | 2024-03-16 14:47 | W.PN.NEPH.PH ---
Today's Communication / Plan
-
HD tomorrow
Assessment/Plan
-
Impression:
Status post PEA/Asystole
PAF : briefly after code on 03/13/24
Metabolic acidemia
Intubation following code
Chronic noncompliance with dialysis
ESRD MWF ([facility]),
left UE AVF
DKA hx/metabolic acidosis
Hyperkalemia
Acute Volume Overload and Hyperkalemia secondary to Missed HD Treatments
Chronic Abdominal Pain / Gastroparesis
Pulmonary hypertension
Polysubstance abuse
Anxiety
Anemia
Right pleural effusion--s/p R throa for pleural effusion with 1.8L transudate 02/17/24
Plan:
A/w DKA status postcardiac arrest witnessed in the emergency
Gap now closed and off insulin drip
Diabetes management per primary team
Patient now in sinus rhythm
Plan for extubation today
Next dialysis tomorrow, orders provided
Patient is critically ill with vent dependent respiratory failure
Maintenance fluids provided
Patient's notorious noncompliance and drug-seeking behavior will continue to be problematic
d/w primary team
-
-
Date of Service: March 16, 2024
CC / HPI / ROS
-
Chief Complaint:
End-stage renal disease
History of Present Illness:
ESRD Friday schedule
Hemodynamically labile on David-Synephrine pressor support
Remains intubated FiO2 support 40% fio2
Review of Systems:
Intubated
Sedated
Anuric
Labs
-
Labs:
WBC 6.6 10^3/uL (4.8-10.8) 03/16/24 03:12
RBC 3.73 10^6/uL (4.70-6.10) L 03/16/24 03:12
Hgb 11.8 g/dL (13.0-18.0) L 03/16/24 03:12
Hct 34.8 % (39.0-52.0) L 03/16/24 03:12
Plt Count 139 10^3/uL (130-400) 03/16/24 03:12
Sodium 136 mmol/L (135-145) 03/16/24 03:12
Potassium 3.5 mmol/L (3.5-5.1) 03/16/24 03:12
Chloride 99 mmol/L (98-107) 03/16/24 03:12
Carbon Dioxide 24 mmol/L (22-30) 03/16/24 03:12
BUN 23 mg/dl (9-20) H 03/16/24 03:12
Creatinine 3.2 mg/dL (0.7-1.3) H 03/16/24 03:12
eGFR 25.40 03/16/24 03:12
Glucose 152 mg/dl (70-99) H 03/16/24 03:12
Calcium 8.2 mg/dl (8.4-10.2) L 03/16/24 03:12
Phosphorus 3.5 mg/dl (2.5-4.5) 03/14/24 04:23
Albumin Cancelled 03/13/24 06:58
Physical Exam
-
Vital Signs:
Vital Signs
Temp Pulse Resp BP Pulse Ox
97.4 F 77 12 112/63 99
03/16/24 07:44 03/16/24 12:47 03/16/24 12:47 03/16/24 09:45 03/16/24 13:55
Cardiovascular:: Regular rate and rhythm
Respiratory:: Bilateral: Coarse
Lung Excursion:: Normal
Abdomen:: Nontender and Soft
Bowel Sounds:: Normal
Extremity Edema:: +1: Bilateral:
Randhawa Catheter: No
--- NOTE | 2024-03-16 15:19 | PTCARENOTE ---
pt off propofol and fentanyl gtt for vent wean started at 0930 for awaking trial , pt off of Levophed at 10:00 , he was weaned on a PS/CPAP from 12:00 to 12:45 , ABG during wean 7.29/55/98/26.7 , Dr Short notified and pt remained on vent , he was
agitated during the last 5-10min of the wean , he was given IVP of Fentanyl for pain, he was placed back on propofol for sedation , then his blood pressure dropped to 60s , he was then placed back on Levophed at 2mcg for his BP goal of map 65, pt
mother in room and updated on current plan of care , plan for pt to have HD in am tomorrow and then retry wean process, keep off of Fentanyl gtt ,give fentanyl bolus for pain control and decrease amount of sedation as able for successful vent wean
--- NOTE | 2024-03-16 15:32 | CM ---
Discussed in Rounds, reviewed pt's chart, met with pt. CM met with pt's mother yesterday.
Per rounds meeting, pt remains intubated, weaning trial today with possible extubation, continue supportive care.
Pt resides with his mother and father in a split level home with no steps to enter. The patient receives HD -- at [facility], uses [employer] transport, has been on HD treatment for 3 years and has not been in compliance with HD
treatment and had multiple visits to ED in the next few months and h/o leaving AMA. The pt is independent in all areas [employer].
[facility] following to assist with outpatient D&A treatment resources.
D/C plan: uncertain at this time and will depend on pt's progress.
CM will follow with discharge plan updates as hospitalization progresses
[2024-03-16 17:18] LABS: Glucose - Point of Care 120 mg/dl (70-99)
[2024-03-16] MEDS: VITAMIN B1 100 MG PO (20:05)
--- NOTE | 2024-03-16 21:14 | PTCARENOTE ---
received patient from the previous shift. opens eyes to voice. pupils 3 and reactive. not following commands. 7.5 ETT 25 at the center. AC 16/400/5/40%. right radial a-line zeroed and transduced. OG to low intermittent suction. levo and propofol
infusing.
[2024-03-16] MEDS: NSS 1000 IV (23:39)
[2024-03-17 00:01] LABS: Glucose - Point of Care 121 mg/dl (70-99)
[2024-03-17] MEDS: NOVOLOG FLEXPEN-LOW RESISTANCE SC ×4 (00:09→17:30)
[2024-03-17 05:00] LABS: % Basophils 0.4 % (0-2); % Immature Granulocytes 0.9 % (0-0.5); % Lymphocytes 10.6 % (20.5-51.1); % Monocytes 10.3 % (1.7-9.3); % Neutrophils 74.8 % (42.2-75.2); Absolute Eosinophils 0.2 10^3/uL (0-0.7); Absolute Immature Granulocytes 0.1 10^3/uL (0-0.05); Absolute Lymphocytes 0.8 10^3/uL (1.2-3.4); Absolute Monocytes 0.8 10^3/uL (0.1-0.6); Absolute Neutrophils 5.7 10^3/uL (1.4-6.5); Hematocrit 36.1 % (39.0-52.0); Hemoglobin 11.9 g/dL (13.0-18.0); Mean Corpuscular Hgb 31.1 pg (27.0-31.0); Mean Corpuscular Volume 94.3 fL (80.0-94.0); Mean Platelet Volume 11.8 fL (7.4-10.4); Nucleated Red Blood Cells % 0 % (-); Platelet Count 175 10^3/uL (130-400); Red Blood Cell Count 3.83 10^6/uL (4.70-6.10); White Blood Cell Count 7.6 10^3/uL (4.8-10.8)
[2024-03-17] MEDS: DIPRIVAN 100 IV (05:20)
[2024-03-17 05:38] LABS: Blood Urea Nitrogen 30 mg/dl (9-20); Calcium 8.7 mg/dl (8.4-10.2); Carbon Dioxide 22 mmol/L (22-30); Chloride 98 mmol/L (98-107); Estimated Creatinine Clearance 23 ml/min; Glucose 129 mg/dl (70-99); Potassium 3.9 mmol/L (3.5-5.1); Sodium 137 mmol/L (135-145)
[2024-03-17 06:00] VITALS: BMI 24.5
--- NOTE | 2024-03-17 06:39 | PTCARENOTE ---
reassessed, complete bed bath given. levo weaned off. a-line zeroed and transduced. opens eyes but not following commands. labs drawn. no further changes in assessment.
--- NOTE | 2024-03-17 06:42 | DOWNTIME ---
There was a [employer] Client Director Of Annual Giving Downtime on 03/16/2024 from 0100 to 03/17/2024 at 0300. Downtime documentation of patient's care, including medication administrations, has been reconciled in the electronic record per guidelines. Refer to the
patient's paper chart under the miscellaneous tab to see printed paper medication records and downtime forms.
--- NOTE | 2024-03-17 07:32 | W.PN.HOSP.TC ---
Today's Communication/Plan
-
Spontaneous breathing trial
Start tube feeds
Assessment / Plan
Assessment / Plan
Gen-sedated, intubated, NAD
HEENT-NC, AT, anicteric
Neck-supple
CV-reg, no M, +S1/S2
Lungs-clear B/L
Abd-soft, NT, ND
Ext-no edema
Musculoskeletal-no cyanosis, clubbing
Skin-warm and dry. Right groin femoral triple-lumen catheter, right upper extremity midline
Cardiac arrest - likely secondary to severe metabolic acidosis/noncompliance with hemodialysis.
Acute hypoxic respiratory failure - status post intubation mechanical ventilation. Spontaneous breathing trial per executive admin. Chest x-ray from 03/15 shows small bilateral pleural effusions, right greater than left, with increased interstitial
markings suggesting pulmonary edema. Weight is down overnight, but still up from admission.
If unable to extubate, consider starting tube feeds today. Will defer to intensive care team.
Shock -differential diagnosis includes severe volume depletion, cardiogenic, septic, etc. weaned off vasopressors. Hemodynamically stable.
Fevers noted on March 14. Admission blood cultures negative so far, repeat cultures 03/15 pending. White blood cell count has been normal so far. Continue empiric broad-spectrum antibiotics, vancomycin and Zosyn.
No obvious focus of infection thus far.
DM1 with DKA -reportedly using insulin pump at home, doubt compliance. Transitioned to Lantus 6 units daily on March 14, moderate resistance NovoLog corrective scale. Consult diabetes [employer]. Glucose 152 this morning, 102 last night.
ESRD - on hemodialysis M, W, F.
Hyperkalemia -resolved.
Severe metabolic acidosis - secondary to missed dialysis and diabetic ketoacidosis.
-Patient with history of missing hemodialysis sessions.
Severe alcohol use disorder
-Per patient mother, patient drank a whole bottle of whiskey on 03/12/2024
Chronic abdominal pain associated with nausea and vomiting likely secondary to gastroparesis
Acute nonischemic myocardial injury -troponin trending down. Etiology likely due to cardiac arrest, CPR, atrial fibrillation, ESRD, etc.
Recurrent right pleural effusion
-Chest x-ray with small to moderate pleural effusion with adjacent atelectasis versus pneumonia
Chronic anemia of renal disease
-Hemoglobin stable
Essential hypertension -currently in shock. Hold antihypertensives.
Severe pulmonary hypertension
Anxiety/depression
-Hold meds till able to tolerate p.o. intake
Tobacco dependence/severe drug-seeking behavior
-Smokes half pack of cigarettes per day
Significant past medical history of noncompliance with medications and hemodialysis
Full code
Anticipated Discharge: > 48 hours
Subjective/Interval History
-
Date of Service: March 17, 2024
Patient seen and examined. Remains sedated, intubated.
Objective Data
-
Labs:
Laboratory Results
03/17/24
04:43
WBC 7.6
Hgb 11.9 L
Hct 36.1 L
Plt Count 175 D
Sodium 137
Potassium 3.9
Chloride 98
Carbon Dioxide 22
BUN 30 H
Creatinine 4.3 H*
Glucose 129 H
Calcium 8.7
Vital Signs:
Vital Signs
Temp Pulse Resp BP Pulse Ox
97.1 F 77 16 126/73 100
03/17/24 07:30 03/17/24 06:30 03/17/24 06:30 03/16/24 14:22 03/17/24 06:30
I&O
03/16/24 03/17/24 03/18/24
06:59 06:59 06:59
Intake Total 2271.6 / 2351.3 1300.7 / 1300.7
Output Total 50 / 50
Balance 2221.6 / 2301.3 1300.7 / 1300.7
Review of Systems
-
Unable to obtain full review of systems at this time due to: Acuity and Patient Intubation
[2024-03-17] MEDS: ZOSYN 50 IV ×3 (07:45→23:41)
[2024-03-17] MEDS: MIRALAX TUBE (07:45)
[2024-03-17] MEDS: VITAMIN B1 PO ×2 (07:45→19:29)
[2024-03-17] MEDS: FOLVITE PO (07:46)
[2024-03-17] MEDS: PROTONIX IV 40 MG IV (07:47)
[2024-03-17] MEDS: NSS (PRESERVATIVE FREE) 10 ML IV (07:47)
--- NOTE | 2024-03-17 07:47 | W.PN.INTV ---
Today's Communication / Plan
Recommendations
Extubated
Asp precs
Atbs
HD
Assessment
-
Mr Luis Angel Soliz is a 33-year-old male with past medical history of diabetes melitis type I (on insulin pump), ESRD on hemodialysis MWF, hypertension, with multiple ED visits over the past week, noncompliance with dialysis and diabetic therapy,
now presents with abdominal pain, nausea. Blood sugar greater than 600, admitted with DKA, poor historian at ER on 03-13 but denied CP, he reported severe nausea, reported not receiving HD for last 4 d [employer]. At ER showed interim increasing lethargy
and bradycardia, sustained witnessed cardiac arrest at ER SB and then PEA, promptly intubated, R femoral TLC placed.
Cardiac arrest, PEA/asystole at ED 03-13
Given CPR after admission to ED
VDRF, post Cardiac Arrest, intubated 03/13/2024
Extubated 03-17
Multiple missed dialysis sessions
Last dialysis 03/05 and 03/10
Fever
Acute DKA
Metabolic acidemia, elevated lactate
Chronic abdominal pain/nausea/emesis, waxing and waning
Gastroparesis
Hyperkalemia
Hyponatremia
chronic, baseline sodium 129-134
Elevated troponin
Elevated alcohol level
Prolonged QT
Conditions present prior to admission
Chronic right pleuroparenchymal process
s/p rt Thora 02/17/24, -1800cc transudate
Cytology negative
Anemia
History of DM type I
Insulin pump, history of malfunction, noncompliance
End-stage renal disease
Secondary to diabetic nephropathy
Noncompliant with dialysis
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
ePAP pressure 65
Ascites, small pericardial effusion per prior imaging
Suspected sleep disordered breathing ongoing tobacco use
History of hypoxia on home oxygen
Details unclear, set up through [facility]
Anxiety/depression
Reported h/o HF while adm to [facility] 2 y [facility] for complications of DM
Reported history of PE 2020, treated 6m OAC
History of medical noncompliance
Ongoing tobacco use, 10+ pack year
Plan/recommendations
Remains critically ill but progressively stabilizing
Requiring pressors
NE only at low dose, neosynephrine off 03-15
Suspect asystole was due to to electrolyte abnormalities, lack of dialysis compliance, ETOH intoxication, and potentially illicit drug use (drug screen not taken on adm, naloxone not adm at ER)
Elevated alcohol levels noted on adm (negative level on 3 other tests in January and February 2024)
Patient also had reportedly a history of hypoxia on home oxygen for unclear reasons
Echocardiogram February 2024: normal LV function with RV pressure overload and RV dilatation, PA pressure 50, this appears to be chronic and stable and multifactorial, no comment on right ventricular function
History of PE noted per patient report, but no records available to confirm, currently not on outpatient AC
HIV testing negative in recent adm
Follow up TTE 03-15 with LVEF 60-65%, dilated hypokinetic RV, mild-mod TR: overall no change c/w 02-18-24
Known RV abnormalities on TTE 06-30-23
Updated ROSE MARY doppler 03-17: negative (negative Jul 2023 along negative CTA)
Will not proceed to chest CTA at this juncture
Will consider brain CT depending to response to sedation holiday and potential extubation
Continue with volume-cycled ventilation
AC 16/400/5/40% (POx 97%)
Daily sedation holiday
SBT, weaning as tolerated
Noted h/o medical noncompliance, ETOH use, suspected illicit drug use, suspected personality disorder
SBT appropriate 03-16, tolerated 1 h trial, f/u ABG 03-16 unfortunately with resp acidosis and marginal MS and strength, returned to ACV
Resume weaning trial 03-17 after early AM HD (will benefit from being first HD patient in AM tomorrow)
May need to extubate on low dose propofol if deemed ready for extubation given above mentioned social and personality issues
Borderline QTc 03-17 at 477
Post 03-17 HD CXR with no acute findings
Transitioned propofol to dexmedetomidine 03-17
Did well on low dose dexmedetomidine in terms of weaning trial
Extubated to O2 NC by 4 pm 03-17
Continue low dose dexmedetomidine if needed
Keep asp precs
Albuterol nebs prn
Fever
Blood cxs 03-13 with no growth, 03-15 so far negative
No resp secs sent
Scanty UO for cx
Started vanco/zosyn 03-15
MRSA screening 03-17 pending (positive in January and Jul 2023)
D/c vanco 03-17
On chronic HD
Completed session on 03/13 and 03-15
HD 03-17
Received R femoral groin line in place at ER
Transitioned to RUE PICC 03-15
Removed R fem line and cx tip 03-15, so far no growth
Follow electrolytes prolonged QT on EKG noted. This has been present during prior studies, will not be able to use dexmedetomidine for sedation
Continue with close monitoring of blood sugar, adjusting insulin as appropriate
Unfortunately, patient with significant noncompliance in the past per reviewing records
Insulin drip discontinued, follow blood sugars
Reviewed CT abdomen/. Moderate right-sided pleural effusion with likely trapped lung physiology, area of pleural thickening
This appears to be chronic as far back as April 2023, was not present on CT chest April 2021
Medical noncompliance, patient apparently with history of signing out AMA after not receiving narcotic therapy, also follows at [facility]
Suspect asystole was due to to electrolyte abnormalities, lack of dialysis compliance, ETOH intoxication, and potentially illicit drug use (drug screen not taken on adm, naloxone not adm at ER)
Elevated alcohol levels noted on adm (negative level on 3 other tests in January and February 2024)
Checked UDS, SDS 03-15: cannot rule out positive U methamphetamine could be secondary to use of trazodone
D/w lab , pending serum drug screen, depending on results will resend out new blood sample or previous sample if still appropriate for analysis (if qualitative test positive, reflexive quantitative test will be done proving or disproving
presence of amphetamines)
Minimize narcotic therapy given nausea/emesis, gastroparesis
Continue n.p.o. for now
Will benefit from Psychiatry consultation once extubated and interactive
Per family inpatient rehab was coordinated by center but unfortunately not approved by insurance in past
DVT prophylaxis: Subcutaneous heparin every 8 hours
GI prophylaxis: On pantoprazole
D/w patient's mother at bedside on a daily basis, all questions answered to satisfaction
Critical care time: 40 min
D/w MDT
Data:
TTE 02-18-2024:
Normal left ventricular systolic function. LV ejection fraction is 60% by volumetric assessment.
Mild concentric left ventricular hypertrophy.
The right ventricle is dilated. Septum flattened in systole consistent with RV pressure overload.
Subjective Dataa
Subjective Data
Date of Service:
Date of Service: March 17, 2024
Chief Complaint: [employer] Follow Up
Subjective:
No major events reported overnight
Continues on mechanical ventilation
Continues on propofol, try to minimize doses of opiate IV as noted CO2 retention yesterday during weaning trial
Reported intermittent agitation including biting endotracheal tube
Started hemodialysis earlier this morning
Review of Systems
General: Unobtainable - Sedation
Objective Data
Data Reviewed
Vital Signs / I&O / Oxygen:
Vital Signs
Temp Pulse Resp BP Pulse Ox
97.1 F 77 16 126/73 98
03/17/24 07:30 03/17/24 06:30 03/17/24 06:30 03/16/24 14:22 03/17/24 07:34
Intake and Output
03/16/24 03/17/24 03/18/24
06:59 06:59 06:59
Intake Total 2271.6 / 2351.3 1300.7 / 1300.7
Output Total 50 / 50
Balance 2221.6 / 2301.3 1300.7 / 1300.7
SaO2 [CPAP/PSV] 96
SaO2 [A/C] 100
SaO2 98
Physical Exam
General: Respiratory Distress (n), Other (Left upper extremity AV fistula) and Other (Right upper extremity A-line, RUE PICC)
HEENT: Normocephalic, Anicteric and Moist Mucous Membranes
Cardiovascular: S1-S2, Regular Rhythm, Murmur (n), Rub (n), JVD (n), Peripheral Edema (trace) and Other (RUE PICC)
Respiratory: Wheeze (mild), Crackles (Mild at base), Rhonchi (n), Non-Labored Respirations, Stridor (n) and ET Tube
GI: Soft and Non Distended
Neurology: Other (sedated)
Skin: Cyanosis (n), Jaundice (n) and Rash (n)
Labs/Micro/Reports
Lab Data
03/17/24 04:43
03/17/24 04:43
Laboratory Results
03/16/24
12:59
pH 7.29 L
pCO2 55 H
pO2 98
HCO3 26.4
O2 Delivery Level
Microbiology
03/13/24 06:58 Blood/Venous Blood Culture - Preliminary
No Growth in 4 days- Final report to follow
03/15/24 13:01 Blood/Venous Blood Culture - Preliminary
No Growth in 24 hours- Final report to follow
03/15/24 12:20 Blood/Venous Blood Culture - Preliminary
No Growth in 24 hours- Final report to follow
03/15/24 16:38 Catheter Tip Catheter Tip Culture - Preliminary
No Growth After 18-24 Hours
03/13/24 08:58 Blood/Venous Blood Culture - Preliminary
No Growth in 72 hours- Final report to follow
[2024-03-17] MEDS: HEPARIN 5000 UNITS SC ×3 (07:49→23:41)
--- NOTE | 2024-03-17 08:00 | PN.DE.MGMTRT ---
Insulin Management
- -
03/17/2024: Diabetes Management Consult Follow up:
33 year old male well known to me from recurrent hospital admissions.
PMH: ESRD on HD (MWF), T1DM for 18 years. He was using a Medtronic 770 pump with NovoLog insulin and Guardian sensor.
Pt presented to ED on 03/10-03/11 c/o weakness, abd pain, N/V due DKA and significant volume overload after missing HD. He was stabilized and signed out AMA.
He returned to the ER on 03/13 c/o N/V, asking for IV narcotics and was found to be hypotensive, became bradycardic and went into PEA arrest.
Patient is critically ill, intubated, on mechanical ventilation and pressors. Unable to interview at this time.
Attempted wean yesterday, patient became hypotensive pressors restarted.
Remains NPO, on Basal insulin Lantus 6 units in AM. Glucose stable, 120 to 145, no elevations or hypoglycemia.
Will make no changes to current regimen. Cont Lantus 6 units in AM and low corrective.
Patient to begin wean from ventilator after HD complete. If successful and diet started or if tube feeds start will add AC or Q6 novolog.
Diabetes plan of care discussed with pt's Nurse.
Diabetes History
- -
Type of Diabetes: 1
Pre-Admission Diabetes Regimen
03/17/24
04:43
Creatinine 4.3 H*
Insulin Pump Settings
IP Diabetes Regimen
03/16/24 03/16/24 03/16/24
07:53 12:59 17:07
Glucose
POC Glucose 127 H 131 H 120 H
03/16/24 03/17/24
23:50 04:43
Glucose 129 H
POC Glucose 121 H
Patient Education
--- NOTE | 2024-03-17 08:04 | W.PN.NEPH.PH ---
Today's Communication / Plan
-
Dialysis today
Maintain pressors to augment UF on dialysis
Remains on vent with ongoing respiratory acidosis
Assessment/Plan
-
Impression:
Status post PEA/Asystole
PAF : briefly after code on 03/13/24
Metabolic acidemia
Intubation following code
Chronic noncompliance with dialysis
ESRD MWF ([facility]),
left UE AVF
DKA hx/metabolic acidosis
Hyperkalemia
Acute Volume Overload and Hyperkalemia secondary to Missed HD Treatments
Chronic Abdominal Pain / Gastroparesis
Pulmonary hypertension
Polysubstance abuse
Anxiety
Anemia
Right pleural effusion--s/p R throa for pleural effusion with 1.8L transudate 02/17/24
Plan:
A/w DKA status postcardiac arrest witnessed in the emergency
Gap now closed and off insulin drip
Diabetes management per primary team
Patient now in sinus rhythm but remains on low dose pressor support
remains intubated
Next dialysis today, orders provided
Patient is critically ill with vent dependent respiratory failure
Arterial blood gas reviewed from 03/16/2024 consistent with ongoing respiratory acidosis
Maintenance fluids provided
Patient's notorious noncompliance and drug-seeking behavior will continue to be problematic
d/w primary team
Total Time Spent with Patient (in minutes): 31
-
-
Date of Service: March 17, 2024
CC / HPI / ROS
-
Chief Complaint:
End-stage renal disease
History of Present Illness:
ESRD Friday schedule
Hemodynamically labile on David-Synephrine pressor support
Remains intubated FiO2 support 40% fio2
Review of Systems:
Intubated
Sedated
Anuric
Labs
-
Labs:
WBC 7.6 10^3/uL (4.8-10.8) 03/17/24 04:43
RBC 3.83 10^6/uL (4.70-6.10) L 03/17/24 04:43
Hgb 11.9 g/dL (13.0-18.0) L 03/17/24 04:43
Hct 36.1 % (39.0-52.0) L 03/17/24 04:43
Plt Count 175 10^3/uL (130-400) D 03/17/24 04:43
Sodium 137 mmol/L (135-145) 03/17/24 04:43
Potassium 3.9 mmol/L (3.5-5.1) 03/17/24 04:43
Chloride 98 mmol/L (98-107) 03/17/24 04:43
Carbon Dioxide 22 mmol/L (22-30) 03/17/24 04:43
BUN 30 mg/dl (9-20) H 03/17/24 04:43
Creatinine 4.3 mg/dL (0.7-1.3) H* 03/17/24 04:43
eGFR 17.70 03/17/24 04:43
Glucose 129 mg/dl (70-99) H 03/17/24 04:43
Calcium 8.7 mg/dl (8.4-10.2) 03/17/24 04:43
Phosphorus 3.5 mg/dl (2.5-4.5) 03/14/24 04:23
Albumin Cancelled 03/13/24 06:58
Physical Exam
-
Vital Signs:
Vital Signs
Temp Pulse Resp BP Pulse Ox
97.1 F 77 16 126/73 98
03/17/24 07:30 03/17/24 06:30 03/17/24 06:30 03/16/24 14:22 03/17/24 07:34
Cardiovascular:: Regular rate and rhythm
Respiratory:: Bilateral: Coarse
Lung Excursion:: Normal
Abdomen:: Nontender and Soft
Bowel Sounds:: Normal
Extremity Edema:: +1: Bilateral:
Randhawa Catheter: No
[2024-03-17] MEDS: SUBLIMAZE 50 MCG IV (08:09)
--- NOTE | 2024-03-17 08:09 | W.PN.NEPH.HD ---
Assessment
-
Patient seen on dialysis
Systolic blood pressure 130 with David-Synephrine pressor support for UF of 3 kg as hemodynamically tolerated
Progress Note - Hemodialysis
-
Date of Service: March 17, 2024
Duration: 30 minutes and 3 hours
Potassium Bath: 3
Calcium Bath: 2.5
Opti-Dialyzer: 160
Ultrafiltration: Other (3)
Blood Flow: 400
Dialysate Flow: 600
Heparin: None
EPO: None
--- NOTE | 2024-03-17 08:19 | PHA.VAN.FU ---
Vancomycin Assessment / Plan
- Assessment
Hemodialysis Schedule: MWF
Last Hemodialysis performed: today 03/17
WBC's are: WNL
In the past 24 hrs, patient has been: Afebrile
Concomitant Antimicrobials: piperacillin/tazobactam
- Dosing Plan
Dosing by Level: Re-dose today (Vanc 750mg)
- Monitoring Plan
No level(s) ordered at this time: consider pre-HD level for Friday
- Follow Up
Pharmacy will continue to follow.
Vancomycin Follow UP
- -
Patient Age: 33
Patient Sex: Male
Vancomycin Day #: 3
Indication: Bacteremia
Requesting Provider: Dr. Kate
Pertinent Antimicrobial Allergies:
no pertinent antibiotic allergies
Height / Weight:
Height 5 ft 7 in
Actual Weight 70.8 kg
Pertinent Past Medical History: ESRD on HD MWF
- Vital Signs / Lab Results
Temp Pulse Resp BP Pulse Ox
97.1 F 77 16 126/73 98
03/17/24 07:30 03/17/24 06:30 03/17/24 06:30 03/16/24 14:22 03/17/24 07:34
Lab Results - Hematology
03/15/24 03/16/24 03/17/24
07:56 03:12 04:43
WBC 8.3 6.6 7.6
Lab Results - Chemistry
03/15/24 03/15/24 03/15/24
03:40 14:13 14:58
BUN 32 H Cancelled 14
Creatinine 4.0 H Cancelled 1.9 H
Estimated Creat Clear 25 Cancelled 52
03/16/24 03/17/24
03:12 04:43
BUN 23 H 30 H
Creatinine 3.2 H 4.3 H*
Estimated Creat Clear 31 23
Microbiology Results
03/13/24 06:58 Blood Culture - Preliminary
Blood/Venous No Growth in 4 days- Final report to follow
03/15/24 13:01 Blood Culture - Preliminary
Blood/Venous No Growth in 24 hours- Final report to follow
03/15/24 12:20 Blood Culture - Preliminary
Blood/Venous No Growth in 24 hours- Final report to follow
03/15/24 16:38 Catheter Tip Culture - Preliminary
Catheter Tip No Growth After 18-24 Hours
03/13/24 08:58 Blood Culture - Preliminary
Blood/Venous No Growth in 72 hours- Final report to follow
Therapeutic Drug Monitoring
Random Vancomycin 14.0 ug/ml 03/16/24 03:12
--- NOTE | 2024-03-17 08:34 | W.PN.CD ---
Today's Communication / Plan
-
remains on low dose pressor ( levo). Wean as tolerated
- still requiring pressors ( on coreg nd amlodipine fo HTN as outpaitent) - he has had dilated rv on prior echo 02/2024 and this admit as well . but with combination of PEA arrest , persistent hypotention would consider PE. consider CT to R/O PE and
leg US
Currently on HD.
No evidence of recurrent afib
Impression / Plan
-
33 y male with IDDM with insulin pump since the age of 13, HTN, ESRD on HD, severe PHTN and h/o PE 3 years ago (treated with Eliquis for 6 months, per patient), chronic non-compliance with medical therapy, who presents to the ED with nausea. He
reported missing several sessions of HD. Asked for narcotics. Then PEA arrest.
Patient is critically ill, intubated, on mechanical ventilation, pressors.
PEA arrest
-in setting of severe metabolic acidosis, missed HD
-back in NSR, on vent;
-Additional HD per nephrology
- echocardiogram 03/15/2024--normal lvef, rv dilated and HK but no change from prior
- still requiring pressors ( on coreg nd amlodipine fo rhTN as outpaitent) - he has had dilated rv on prior echo but with combination of PEA arrest , persistent hypotention would consider PE consider CT to R/O PE and leg US
Hypotension. - still with low dose levo
- wean as tolerated
.
A fib with RVR: in setting of critical illness
-back in NSR
-eventually to resume home coreg
-would not recommend OAC given longstanding compliance issues
acute non-ischemic myocardial injury in setting of arrest, CPR, A fib with RVR, renal failure
echo without new regional wall motion
Enlarged RV, severe TR, pulm HTN
-chronic stable
HTN - assess to resume meds as recovers from cardiac arrest and off pressors
ESRD - urgent HD per nephrology.
IDDM - insulin pump.
- per hospitalist.
Tobacco abuse
Subjective:
-intubated, weaning sedation but comforatable
03/15/24 Echo:
CONCLUSIONS
Normal left ventricular systolic function.
Left ventricular ejection fraction is 60-65% .
Dilated , hypokinetic RV
Mild to moderate tricuspid regurgitation.
Pulmonary hypertension
CCT 31 minutes.
Physical Exam
Vital Signs/Labs
Vital Signs
Temp Pulse Resp BP Pulse Ox
97.1 F 77 16 126/73 98
03/17/24 07:30 03/17/24 06:30 03/17/24 06:30 03/16/24 14:22 03/17/24 07:34
03/16/24 03/17/24 03/18/24
06:59 06:59 06:59
Actual Weight 69.4 kg 70.8 kg
03/17/24 04:43
03/17/24 04:43
PT 16.5 Sec (11.4-14.6) H 03/14/24 04:23
INR 1.35 03/14/24 04:23
APTT 38.5 Sec (23.4-35.0) H 03/14/24 04:23
Magnesium 1.6 mg/dl (1.6-2.3) 03/16/24 03:12
Triglycerides 185 mg/dl (10-149) H 03/16/24 03:12
LAB Results
03/15/24
03:40
Troponin I 2.970 H*
Physical Exam
Constitutional: Other (vented)
Cardiovascular: Rhythm & rate is regular
Respiratory: Wheeze Absent, Crackles Absent and Other (vented)
GI: Non tender
Neuro/Psych: Alert
Data Reviewed
-
Date of Service: March 17, 2024
Medical Decision Making: Reviewed Test Results
Medical Tests (PFT, Pathology etc): Report Reviewed by me
Labs: Labs Reviewed by me
Critical Care Time (in minutes): 35
[2024-03-17] MEDS: LANTUS 0.0599999999999999978 UNITS SC (08:36)
[2024-03-17] MEDS: FLEXBUMIN 25% FOR HEMODIALYSIS 12.5 GRAMS IV (08:40)
[2024-03-17] MEDS: MANNITOL 12.5 GRAMS IV (08:47)
[2024-03-17 09:39] VITALS: BP 98/47
[2024-03-17] MEDS: VANCOCIN 150 IV (10:05)
[2024-03-17 11:41] LABS: Glucose - Point of Care 119 mg/dl (70-99)
[2024-03-17] MEDS: PRECEDEX 100 IV (13:02)
--- NOTE | 2024-03-17 13:15 | PTCARENOTE ---
Multiple updates thru shift with critical care team. Update with diabetic education consult team will follow along with any changes in nutritional status.
Wan Support Specialist at bedside several times thru am, working with pharmacy to progress toward weaning. Updated chest xray, peripheral ultrasound, ecg updates. Repeat labs as ordered. Follow up weaning progress with respiratory cares team thru shift.
Hemodialysis completed as ordered. Dirivan off at this assessment, reviewed plan of prescedex with pharmacy. Family at bedside, updated teaching, plan of cares and follow concerns will continue to monitor.
[2024-03-17 13:38] VITALS: BP_SYST 96
[2024-03-17 13:50] VITALS: BP_SYST 94
[2024-03-17 14:20] VITALS: BP_SYST 96
[2024-03-17 15:26] LABS: B.E. -0.9 mmol/L; HCO3 25.8 mmol/L (21-28); O2 Saturation % 99.1 % (94-98); PCO2 50 mmHg (35-48); PO2 112 mmHg (83-108); pH 7.32 (7.35-7.45)
--- NOTE | 2024-03-17 16:02 | RESPNOTE ---
16:00 extubated patient on 6L n.c. 98%, HR 81
--- NOTE | 2024-03-17 16:16 | PTCARENOTE ---
Patient extubated to 6L nasal cannula. Patient is still lethargic, not communicating much, somnolent. Will leave restraints on until patient is more awake.
[2024-03-17 17:40] LABS: Glucose - Point of Care 134 mg/dl (70-99)
[2024-03-17] MEDS: NSS IV (23:39)
[2024-03-18] VITALS (10 sets, daily range): BP systolic 141–174; BP diastolic 50–127; PULSE 96; BMI 23.5
[2024-03-18] MEDS: NOVOLOG FLEXPEN-LOW RESISTANCE 1 UNITS SC (00:21)
[2024-03-18 00:29] LABS: Glucose - Point of Care 174 mg/dl (70-99)
[2024-03-18 05:27] LABS: % Basophils 0.4 % (0-2); % Eosinophils 3.9 % (0-6); % Immature Granulocytes 0.6 % (0-0.5); % Lymphocytes 11.9 % (20.5-51.1); % Monocytes 14.7 % (1.7-9.3); % Neutrophils 68.5 % (42.2-75.2); Absolute Eosinophils 0.3 10^3/uL (0-0.7); Absolute Lymphocytes 0.8 10^3/uL (1.2-3.4); Absolute Neutrophils 4.6 10^3/uL (1.4-6.5); Hematocrit 38.4 % (39.0-52.0); Mean Corp Hgb Conc. 31.3 g/dL (33.0-37.0); Mean Corpuscular Hgb 31.3 pg (27.0-31.0); Mean Platelet Volume 10.4 fL (7.4-10.4); Nucleated Red Blood Cells % 0 % (-); Platelet Count 168 10^3/uL (130-400); Red Blood Cell Count 3.84 10^6/uL (4.70-6.10); Red Cell Dist. Width 18.8 % (11.5-14.5); White Blood Cell Count 6.7 10^3/uL (4.8-10.8)
[2024-03-18] MEDS: LEVOPHED 250 IV (05:55)
[2024-03-18 06:08] LABS: Glucose - Point of Care 205 mg/dl (70-99)
[2024-03-18] MEDS: NOVOLOG FLEXPEN-LOW RESISTANCE 300 UNITS SC (06:11)
--- NOTE | 2024-03-18 06:29 | PTCARENOTE ---
pt awake this morning attempted to take restraints off and patient putting his legs up on the side rails and trying to climb over top the rails. attempted to reorient patient he said he wanted to sign himself out.
[2024-03-18 07:02] LABS: Blood Urea Nitrogen 22 mg/dl (9-20); Calcium 9.2 mg/dl (8.4-10.2); Carbon Dioxide 17 mmol/L (22-30); Chloride 99 mmol/L (98-107); Estimated Creatinine Clearance 27 ml/min; Glucose 218 mg/dl (70-99); Potassium 4.2 mmol/L (3.5-5.1); Sodium 137 mmol/L (135-145)
--- NOTE | 2024-03-18 07:11 | W.PN.CD ---
Today's Communication / Plan
-
Extubated yesterday
Lower ext US 03/17/24 no DVT
.
Recommnedations similar to yesterday
Remains on low dose pressor ( levo). Transiently weaned off. Appeaars to have room to wean off. Wean as tolerated
- he has had dilated rv on prior echo 02/2024 and this admit as well . but with combination of PEA arrest , persistent hypotention would consider PE.
Consider CT to R/O PE
HD and volume control per nephrology
No evidence of recurrent afib
If evidence of recurret afib then call.
Impression / Plan
-
33 y male with IDDM with insulin pump since the age of 13, HTN, ESRD on HD, severe PHTN and h/o PE 3 years ago (treated with Eliquis for 6 months, per patient), chronic non-compliance with medical therapy, who presents to the ED with nausea. He
reported missing several sessions of HD. Asked for narcotics. Then PEA arrest.
Patient is critically ill, intubated, on mechanical ventilation, pressors.
PEA arrest
-in setting of severe metabolic acidosis, missed HD
-back in NSR, on vent;
-Additional HD per nephrology
- echocardiogram 03/15/2024--normal lvef, rv dilated and HK but no change from prior
- still requiring pressors ( on coreg nd amlodipine fo rhTN as outpaitent) - he has had dilated rv on prior echo but with combination of PEA arrest , persistent hypotention would consider PE consider . US legs without DVT . ConsiderCT to R/O
PE
Hypotension. - still with low dose levo
- wean as tolerated
VDRF - extubated 03/17/24.
- sable on NC
.
A fib with RVR: in setting of critical illness
-back in NSR
-eventually to resume home coreg
-would not recommend OAC given longstanding compliance issues
acute non-ischemic myocardial injury in setting of arrest, CPR, A fib with RVR, renal failure
echo without new regional wall motion
Enlarged RV, severe TR, pulm HTN
-chronic stable
HTN - assess to resume meds as recovers from cardiac arrest and off pressors
ESRD - urgent HD per nephrology.
IDDM - insulin pump.
- per hospitalist.
Tobacco abuse
Subjective:
-intubated, weaning sedation but comforatable
03/15/24 Echo:
CONCLUSIONS
Normal left ventricular systolic function.
Left ventricular ejection fraction is 60-65% .
Dilated , hypokinetic RV
Mild to moderate tricuspid regurgitation.
Pulmonary hypertension
CCT 30 minutes.
Physical Exam
Vital Signs/Labs
Vital Signs
Temp Pulse Resp BP Pulse Ox
97.5 F 91 18 98/47 96
03/18/24 03:39 03/18/24 06:15 03/18/24 06:15 03/17/24 09:39 03/18/24 06:15
03/17/24 03/18/24 03/19/24
06:59 06:59 06:59
Actual Weight 70.8 kg 68.1 kg
03/18/24 05:00
03/18/24 06:23
PT 16.5 Sec (11.4-14.6) H 03/14/24 04:23
INR 1.35 03/14/24 04:23
APTT 38.5 Sec (23.4-35.0) H 03/14/24 04:23
Magnesium 1.6 mg/dl (1.6-2.3) 03/16/24 03:12
Triglycerides 185 mg/dl (10-149) H 03/16/24 03:12
Physical Exam
Constitutional: No acute distress
Cardiovascular: Rhythm & rate is regular
Respiratory: Wheeze Absent and Rhonchi Absent
GI: Normal bowel sounds
Neuro/Psych: Alert
Data Reviewed
-
Date of Service: March 18, 2024
Medical Decision Making: Reviewed Test Results
Echo: Report Reviewed by me
Medical Tests (PFT, Pathology etc): Report Reviewed by me
Labs: Labs Reviewed by me
[2024-03-18] MEDS: VITAMIN B1 PO ×2 (07:25→19:31)
[2024-03-18] MEDS: MIRALAX TUBE (07:25)
[2024-03-18] MEDS: FOLVITE PO (07:25)
--- NOTE | 2024-03-18 07:32 | W.PN.INTV ---
Today's Communication / Plan
Recommendations
O2
Asp precs
D/c atb
HD
Speech
PT/OT
Psych consult
Assessment
-
Mr Luis Angel Soliz is a 33-year-old male with past medical history of diabetes melitis type I (on insulin pump), ESRD on hemodialysis MWF, hypertension, with multiple ED visits over the past week, noncompliance with dialysis and diabetic therapy,
now presents with abdominal pain, nausea. Blood sugar greater than 600, admitted with DKA, poor historian at ER on 03-13 but denied CP, he reported severe nausea, reported not receiving HD for last 4 d CUSTOMER TRAINER. At ER showed interim increasing lethargy
and bradycardia, sustained witnessed cardiac arrest at ER SB and then PEA, promptly intubated, R femoral TLC placed.
Cardiac arrest, PEA/asystole at ED 03-13
Given CPR after admission to ED
VDRF, post Cardiac Arrest, intubated 03/13/2024
Extubated 03-17
Multiple missed dialysis sessions
Last dialysis 03/05 and 03/10
Fever
Acute DKA
Metabolic acidemia, elevated lactate
Chronic abdominal pain/nausea/emesis, waxing and waning
Gastroparesis
Hyperkalemia
Hyponatremia
chronic, baseline sodium 129-134
Elevated troponin
Elevated alcohol level
Prolonged QT
Conditions present prior to admission
Chronic right pleuroparenchymal process
s/p rt Thora 02/17/24, -1800cc transudate
Cytology negative
Anemia
History of DM type I
Insulin pump, history of malfunction, noncompliance
End-stage renal disease
Secondary to diabetic nephropathy
Noncompliant with dialysis
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
ePAP pressure 65
Ascites, small pericardial effusion per prior imaging
Suspected sleep disordered breathing ongoing tobacco use
History of hypoxia on home oxygen
Details unclear, set up through [facility]
Anxiety/depression
Reported h/o HF while adm to [facility] 2 y CUSTOMER TRAINER for complications of DM
Reported history of PE 2020, treated 6m OAC
History of medical noncompliance
Ongoing tobacco use, 10+ pack year
Plan/recommendations
Off pressors (NE off yesterday, given at very low dose for HD. Neosynephrine off 03-15)
Suspect asystole was due to to electrolyte abnormalities, lack of dialysis compliance, ETOH intoxication, and potentially illicit drug use (drug screen not taken on adm, naloxone not adm at ER)
Elevated alcohol levels noted on adm (negative level on 3 other tests in January and February 2024)
Patient also had reportedly a history of hypoxia on home oxygen for unclear reasons
Echocardiogram February 2024: normal LV function with RV pressure overload and RV dilatation, PA pressure 50, this appears to be chronic and stable and multifactorial, no comment on right ventricular function
History of PE noted per patient report, but no records available to confirm, currently not on outpatient AC
HIV testing negative in recent adm
Follow up TTE 03-15 with LVEF 60-65%, dilated hypokinetic RV, mild-mod TR: overall no change c/w 02-18-24
Known RV abnormalities on TTE 06-30-23
Updated ROSE MARY doppler 03-17: negative (negative Jul 2023 along negative CTA)
Pulmonary HTN (groups suspected 1 [drugs], 5 [CKD]), ePAP pressure 65), no w/u recommended at this juncture
Will not proceed to chest CTA at this juncture
Did not need brain CT as MS improving
Was on AC MV
Noted h/o medical noncompliance, ETOH use, suspected illicit drug use, suspected personality disorder
SBT appropriate 03-16, tolerated 1 h trial, f/u ABG 03-16 unfortunately with resp acidosis and marginal MS and strength, returned to ACV
Resumed weaning trial 03-17 after early AM HD
Borderline QTc 03-17 at 477
Post 03-17 HD CXR with no acute findings
Transitioned propofol to dexmedetomidine 03-17
Did well on low dose dexmedetomidine in terms of weaning trial
Extubated to O2 NC by 4 pm 03-17
Off dexmed after extubation
Keep asp precs
Albuterol nebs prn
Fever, mild and transient
Blood cxs 03-13 with no growth, 03-15 so far negative
No resp secs sent till 03-17 (pending)
Scanty UO for cx
Started vanco/zosyn 03-15
MRSA screening 03-17 pending (positive in January and Jul 2023)
D/c vanco 03-17
D/c zosyn 03-18
On chronic HD
Completed session on 03/13 and 03-15
HD 03-17
Received R femoral groin line in place at ER
Transitioned to RUE PICC 03-15
Removed R fem central line and cx tip 03-15, negative
Remove R radial A-line 03-18
Follow electrolytes prolonged QT on EKG noted. This has been present during prior studies
Continue with close monitoring of blood sugar, adjusting insulin as appropriate
Unfortunately, patient with significant noncompliance in the past per reviewing records
Insulin drip discontinued, follow blood sugars
Reviewed CT abdomen/. Moderate right-sided pleural effusion with likely trapped lung physiology, area of pleural thickening
This appears to be chronic as far back as April 2023, was not present on CT chest April 2021
No current need for thoracentesis
Medical noncompliance, patient apparently with history of signing out AMA after not receiving narcotic therapy, also follows at [facility]
Suspect asystole was due to to electrolyte abnormalities, lack of dialysis compliance, ETOH intoxication, and potentially illicit drug use (drug screen not taken on adm, naloxone not adm at ER)
Elevated alcohol levels noted on adm (negative level on 3 other tests in January and February 2024)
Checked UDS, SDS 03-15: cannot rule out positive U methamphetamine could be secondary to use of trazodone
D/w lab , pending serum drug screen, depending on results will resend out new blood sample or previous sample if still appropriate for analysis (if qualitative test positive, reflexive quantitative test will be done proving or disproving
presence of amphetamines)
D/w Luis Angel, he denies use of illicit drugs
Minimize narcotic therapy given nausea/emesis, gastroparesis
Continue n.p.o. for now
Speech evaluation 03-18
Will benefit from Psychiatry consultation, ordered 03-18
Per family inpatient rehab was coordinated by [facility] but unfortunately not approved by insurance in past
DVT prophylaxis: Subcutaneous heparin every 8 hours
GI prophylaxis: On pantoprazole
D/w patient's mother at bedside on a daily basis, all questions answered to satisfaction
IMU level of care 03-18, then can transition to telemetry, will sign off then
D/w MDT
Data:
TTE 02-18-2024:
Normal left ventricular systolic function. LV ejection fraction is 60% by volumetric assessment.
Mild concentric left ventricular hypertrophy.
The right ventricle is dilated. Septum flattened in systole consistent with RV pressure overload.
Subjective Dataa
Subjective Data
Date of Service:
Date of Service: March 18, 2024
Chief Complaint: Director Immunology Follow Up
Subjective:
No major events reported overnight except for some mild behavioral issues
No longer on dexmedetomidine which was used yesterday to assist with extubation
Extubated just afternoon with no issue, extubated to nasal cannula
Still with right radial arterial line
Feels hungry
Currently on soft restraints in upper extremities
Review of Systems
General: Fever and Other (Limited historian at this time but denies major complaints except for fatigue)
Objective Data
Data Reviewed
Vital Signs / I&O / Oxygen:
Vital Signs
Temp Pulse Resp BP Pulse Ox
97.5 F 91 18 98/47 96
03/18/24 03:39 03/18/24 06:15 03/18/24 06:15 03/17/24 09:39 03/18/24 06:15
Intake and Output
03/17/24 03/18/24 03/19/24
06:59 06:59 06:59
Intake Total 1300.7 / 1396.8 1357.30 / 1357.30
Balance 1300.7 / 1396.8 1357.30 / 1357.30
SaO2 [CPAP/PSV] 96
SaO2 [A/C] 97
SaO2 96
Nasal Cannula flow liters per 6
minute
Physical Exam
General: Respiratory Distress (n), Other (Left upper extremity AV fistula) and Other (Right upper extremity A-line, RUE PICC)
HEENT: Normocephalic, Anicteric, Moist Mucous Membranes and Thrush (n)
Cardiovascular: S1-S2, Regular Rhythm, Murmur (n), Rub (n), JVD (n), Peripheral Edema (trace) and Other (RUE PICC, R radial A-line)
Respiratory: Wheeze (mild), Crackles (Mild at base), Rhonchi (n), Non-Labored Respirations and Stridor (n)
GI: Soft and Non Distended
Neurology: Awake, Oriented and No Motor Deficits (but weak)
Skin: Warm, Cyanosis (n), Jaundice (n) and Rash (n)
Labs/Micro/Reports
Lab Data
03/18/24 05:00
03/18/24 06:23
Laboratory Results
03/17/24
15:11
pH 7.32 L
pCO2 50 H
pO2 112 H
HCO3 25.8
O2 Delivery Level
Microbiology
03/13/24 06:58 Blood/Venous Blood Culture - Final
No Growth - Final Report
03/17/24 11:43 Tracheal Aspirate Gram Stain - Preliminary
03/15/24 13:01 Blood/Venous Blood Culture - Preliminary
No Growth in 48 hours- Final report to follow
03/15/24 12:20 Blood/Venous Blood Culture - Preliminary
No Growth in 48 hours- Final report to follow
03/15/24 16:38 Catheter Tip Catheter Tip Culture - Preliminary
No Growth After 48 Hours
03/13/24 08:58 Blood/Venous Blood Culture - Preliminary
No Growth in 4 days- Final report to follow
[2024-03-18] MEDS: LANTUS 0.0599999999999999978 UNITS SC (07:40)
[2024-03-18] MEDS: HEPARIN 5000 UNITS SC ×2 (07:40→15:48)
[2024-03-18] MEDS: PROTONIX IV 40 MG IV (07:40)
[2024-03-18] MEDS: NSS (PRESERVATIVE FREE) 10 ML IV (07:41)
[2024-03-18] MEDS: ZOSYN 50 IV (07:41)
--- NOTE | 2024-03-18 07:47 | W.PN.HOSP.TC ---
Addendum entered and electronically signed by Caleb Kate DO 03/18/24 13:25:
Stage 2 middle back pressure injury
Original Note:
Today's Communication/Plan
-
Stop antibiotics
Speech consult
Assessment / Plan
Assessment / Plan
Gen-awake, not alert
HEENT-NC, AT, anicteric
Neck-supple
CV-reg, no M, +S1/S2
Lungs-clear B/L
Abd-soft, NT, ND
Ext-no edema
Musculoskeletal-no cyanosis, clubbing
Skin-warm and dry. Right groin femoral triple-lumen catheter, right upper extremity midline
Cardiac arrest - likely secondary to severe metabolic acidosis/noncompliance with hemodialysis.
Acute hypoxic respiratory failure - status post intubation mechanical ventilation. Extubated 03/17. Chest x-ray from 03/17 shows bilateral pleural effusions, right effusion slightly improved. Parenchymal opacities within both lower lungs, most
likely due to compressive atelectasis. Slight improvement pulmonary edema pattern.
Speech therapy consult. He is still NPO.
Shock -differential diagnosis includes severe volume depletion, cardiogenic, septic, etc. weaned off vasopressors. Hemodynamically stable.
Fevers noted on March 14. Blood cultures negative so far. White blood cell count has been normal so far. Can stop antibiotics and observe. No obvious infection
DM1 with DKA -reportedly using insulin pump at home, doubt compliance. Transitioned to Lantus 6 units daily on March 14, low resistance NovoLog corrective scale. Glucose 218 this morning. Diabetes SPACE TECHNOLOGIST following.
ESRD - on hemodialysis M, W, F. Weight is down to 68 kg.
Severe metabolic acidosis - secondary to missed dialysis and diabetic ketoacidosis.
-Patient with history of missing hemodialysis sessions.
Atrial fibrillation -with rapid ventricular response. Back in sinus rhythm. Not long-term anticoagulation candidate given known noncompliance. Cardiology noted.
Severe alcohol use disorder
-Per patient mother, patient drank a whole bottle of whiskey on 03/12/2024
Chronic abdominal pain associated with nausea and vomiting likely secondary to gastroparesis
Acute nonischemic myocardial injury -troponin trending down. Etiology likely due to cardiac arrest, CPR, atrial fibrillation, ESRD, etc.
Recurrent right pleural effusion
-Chest x-ray with small to moderate pleural effusion with adjacent atelectasis versus pneumonia
Chronic anemia of renal disease
-Hemoglobin stable
Essential hypertension -currently in shock. Hold antihypertensives.
Severe pulmonary hypertension
Reported history of pulmonary embolism -date unknown. Records not available. Venous Doppler ultrasound lower extremities negative for DVT. Last CT chest from July 2023 negative for pulmonary embolism.
Anxiety/depression
-Hold meds till able to tolerate p.o. intake
Tobacco dependence/severe drug-seeking behavior
-Smokes half pack of cigarettes per day
Significant past medical history of noncompliance with medications and hemodialysis
Full code
Anticipated Discharge: > 48 hours
Subjective/Interval History
-
Date of Service: March 18, 2024
Patient seen and examined. Extubated, awake but not alert, not interactive.
Objective Data
-
Labs:
Laboratory Results
03/18/24 03/18/24
05:00 06:23
WBC 6.7
Hgb 12.0 L
Hct 38.4 L
Plt Count 168
Sodium Cancelled 137
Potassium Cancelled 4.2
Chloride Cancelled 99
Carbon Dioxide Cancelled 17 L
BUN Cancelled 22 H
Creatinine Cancelled 3.7 H
Glucose Cancelled 218 H
Calcium Cancelled 9.2
Vital Signs:
Vital Signs
Temp Pulse Resp BP Pulse Ox
97.5 F 91 18 98/47 96
03/18/24 03:39 03/18/24 06:15 03/18/24 06:15 03/17/24 09:39 03/18/24 06:15
I&O
03/17/24 03/18/24/
06:59 06:59 06:59
Intake Total 1300.7 / 1396.8 1357.30 / 1357.30
Balance 1300.7 / 1396.8 1357.30 / 1357.30
Review of Systems
-
Unable to obtain full review of systems at this time due to: Acuity
--- NOTE | 2024-03-18 07:56 | W.PN.NEPH.PH ---
Today's Communication / Plan
-
HD tomorrow
Assessment/Plan
-
Impression:
Status post PEA/Asystole
PAF : briefly after code on 03/13/24
Metabolic acidemia
Intubation following code
Chronic noncompliance with dialysis
ESRD MWF ([facility]),
left UE AVF
DKA hx/metabolic acidosis
Hyperkalemia
Acute Volume Overload and Hyperkalemia secondary to Missed HD Treatments
Chronic Abdominal Pain / Gastroparesis
Pulmonary hypertension
Polysubstance abuse
Anxiety
Anemia
Right pleural effusion--s/p R throa for pleural effusion with 1.8L transudate 02/17/24
Plan:
A/w DKA status postcardiac arrest witnessed in the emergency
Gap now closed and off insulin drip
Diabetes management per primary team
Patient now in sinus rhythm but remains on low dose pressor support
Echo notes hypokinetic right ventricle
remains intubated
Next dialysis tomorrow, orders provided, will attempt to reduce dry weight as hemodynamically tolerated given chest x-ray findings notable for bilateral pleural effusions
ongoing hypotension remains unexplained, anti-htns held, may be sedation meds now off
duplex of legs negative for DVT
Patient's notorious noncompliance and drug-seeking behavior will continue to be problematic
d/w primary team
-
-
Date of Service: March 18, 2024
CC / HPI / ROS
-
Chief Complaint:
End-stage renal disease
History of Present Illness:
ESRD Friday schedule
Hemodynamically stable, now off pressors
Extubated
Review of Systems:
Awake and alert
Weights down
No fever
Anuric
Labs
-
Labs:
WBC 6.7 10^3/uL (4.8-10.8) 03/18/24 05:00
RBC 3.84 10^6/uL (4.70-6.10) L 03/18/24 05:00
Hgb 12.0 g/dL (13.0-18.0) L 03/18/24 05:00
Hct 38.4 % (39.0-52.0) L 03/18/24 05:00
Plt Count 168 10^3/uL (130-400) 03/18/24 05:00
Sodium 137 mmol/L (135-145) 03/18/24 06:23
Potassium 4.2 mmol/L (3.5-5.1) 03/18/24 06:23
Chloride 99 mmol/L (98-107) 03/18/24 06:23
Carbon Dioxide 17 mmol/L (22-30) L 03/18/24 06:23
BUN 22 mg/dl (9-20) H 03/18/24 06:23
Creatinine 3.7 mg/dL (0.7-1.3) H 03/18/24 06:23
eGFR 21.20 03/18/24 06:23
Glucose 218 mg/dl (70-99) H 03/18/24 06:23
Calcium 9.2 mg/dl (8.4-10.2) 03/18/24 06:23
Phosphorus 3.5 mg/dl (2.5-4.5) 03/14/24 04:23
Albumin Cancelled 03/13/24 06:58
Physical Exam
-
Vital Signs:
Vital Signs
Temp Pulse Resp BP Pulse Ox
97.6 F 91 18 98/47 96
03/18/24 07:52 03/18/24 06:15 03/18/24 06:15 03/17/24 09:39 03/18/24 06:15
Cardiovascular:: Regular rate and rhythm
Respiratory:: Bilateral: Coarse
Lung Excursion:: Normal
Abdomen:: Nontender and Soft
Bowel Sounds:: Normal
Extremity Edema:: +1: Bilateral:
Randhawa Catheter: No
--- NOTE | 2024-03-18 08:00 | PTCARENOTE ---
Received patient from shift mgr. patient is awake, still drowsy, mumbling but able to speak. Requesting to sign out AMA, is pulling at lines. Dr. Short at bedside, order to discontinue right radial [place]. Pressures levated with SBP in 160s,
stopped levophed gtt. Patient is on 4L nasal cannula with occasional non productive wet cough. He is sinus rhythm on monitor with prolonged QT. Bilateral wrist restraints remain on, patient is being uncooperative. NPO, to be seen by speech,
remains anuric. Skin as documented in focused assessment. Will review orders.
--- NOTE | 2024-03-18 09:02 | PTOTSP ---
ST Acute Care EValuation
Pt currently presents with pharyngeal dysphagia in the setting of recent PEA and intubation.
Recommendations:
- Continue NPO with the exception of critical meds crushed in puree.
- No ARHP yet.
- Aspiration precautions: HOB upright as often as possible; oral care QID.
- ADMINISTRATIVE SERVICES MANAGER will continue to follow to re-assess at bedside and determine readiness/candidacy/appropriateness/need for video fluoroscopic swallow study to gather more information.
--- NOTE | 2024-03-18 09:57 | PN.DE.MGMTRT ---
Insulin Management
- -
03/18/2024: Diabetes Management Consult Follow up:
33 year old male well known to me from recurrent hospital admissions.
PMH: ESRD on HD (MWF), T1DM for 18 years. He was using a Medtronic 770 pump with NovoLog insulin and Guardian sensor.
Pt presented to ED on 03/10-03/11 c/o weakness, abd pain, N/V due DKA and significant volume overload after missing HD. He was stabilized and signed out AMA.
He returned to the ER on 03/13 c/o N/V, asking for IV narcotics and was found to be hypotensive, became bradycardic and went into PEA arrest.
Patient weaned from ventilator yesterday.
Remains NPO, on Basal insulin Lantus 6 units in AM. Glucose up to 174 @ hs and 205 this AM..
Will make no changes to current regimen. Cont Lantus 6 units in AM and low corrective. If diet started will need AC novolog. Will not resume pump at this time.
Diabetes plan of care discussed with pt's Nurse.
Diabetes History
- -
Type of Diabetes: 1
Pre-Admission Diabetes Regimen
03/18/24 03/18/24
05:00 06:23
Creatinine Cancelled 3.7 H
Insulin Pump Settings
IP Diabetes Regimen
03/17/24 03/17/24 03/18/24
11:30 17:29 00:18
Glucose
POC Glucose 119 H 134 H 174 H
03/18/24 03/18/24 03/18/24
05:00 05:57 06:23
Glucose Cancelled 218 H
POC Glucose 205 H
Meal type: Breakfast
Patient Education
[2024-03-18 10:33] LABS: ALT (SGPT) 65 U/L (0-50); AST (SGOT) 67 U/L (17-59); Alkaline Phosphatase 113 U/L (38-126); Direct Bilirubin 1.2 mg/dl (0.0-0.4); Total Bilirubin 1.3 mg/dl (0.2-1.3); Total Protein 5.5 g/dl (6.3-8.2)
[2024-03-18] MEDS: OFIRMEV 100 IV (10:46)
[2024-03-18 12:08] LABS: Glucose - Point of Care 135 mg/dl (70-99)
[2024-03-18] MEDS: NOVOLOG FLEXPEN-LOW RESISTANCE SC ×2 (12:14→18:57)
--- NOTE | 2024-03-18 12:20 | PN.CDI ---
CDI
- -
CDI:
Physician Documentation Request
Admit Date: 03/13/24 09:19
Dear Doctor Humble,
Patient admitted with severe metabolic acidosis.
03/17 Nursing skin assessment, 'Stage 2 middle back pressure injury.'
Physician documentation of the type and location of wounds is required for compliant documentation. Based on the above clinical findings and your assessment, please provide the following in your progress note:
Type (etiology) of ulcer/wound:
- Pressure (decubitus) ulcer
- Other
- Unable to determine
For a pressure ulcer, please also include the stage* of the ulcer:
- Stage 1 - Skin intact, non-blanchable redness
- Stage 2 - Partial thickness loss of dermis, includes intact or open blister
- Stage 3 - Full thickness tissue not including bone, tendon or muscle
- Stage 4 - Full thickness tissue loss, including exposed bone, tendon or muscle
- Unstageable - Full thickness loss in which the base of the ulcer is covered by slough (yellow, cuellar, blankenship, green or brown) and/or eschar (cuellar, brown or black) in the wound bed.
- Unable to determine
Use of terms such as suspected, likely, concern for, or probable (associated with a specific diagnosis that is being evaluated, monitored, or treated as if it exists) are acceptable and can be coded in the inpatient setting, when documented at the
time of discharge.
Thank you,
Ofelia BRAGA,RN,CCDS
CDI Specialist
Available via [place] text
Please use your independent medical judgment in providing your response.
*Source: National Pressure Ulcer Advisory Panel (NPUAP)
--- NOTE | 2024-03-18 12:53 | CON.MD ---
Consultation - Medical
-
patient seen chart reviewed. discussed with nursing. consult ordered by dr king re ? would in patient rehab be appropriate. the patient is a 34 year old male with longstanding hx of etoh abuse and numerous medical comorbidities including having
suffered a recent pea w asystole requiring intubation and icu rx . he was only recently extubated. he came to the er for n/v having signed out ama in the week preceding. he was found to be in dka with hyperkalemia and was admitted with asystole,
ahrf, shock, fevers etc following. the patient admitted to me that he consumes a bottle of etoh 'some days'. he does admit to a hx of excessive drinking for years w longest sobriety having been two weeks. he was adamant that he is not interested in
any rehab program. he denies depression. he does admit to anxiety. he denies being rx either w psych meds or in psychotherapy. it is of note that the patient was not very interested in this interview and responded to questions with very short
answers. . the patient denies hallucinations, there was no evidence of delusions or paranoia. he denied suicidality.precedex had been discontinued. he is on the msas protocol with no ativan having been given today. i am told by several staff
members that patient has talked of signing out ama today. he did not mention this to me.
past psych hx denied
medical hx see above in addition to what is mentioned there patient is anemia presumably secondary to ckd hx paf km, pulmonary htn htn esrd requiring dialysis with which he is variously cooperative hx PE
substance abuse patient admits to etoh abuse.
fh etohism. he says he does not know if fh of psychiatric disease
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
mse alert ox3 not very cooperative speech a bit slurred thought process slowed no psychosis overtly mood is neutral affect constricted denies suicidality insight judgment poor
dx etoh use disorder
recommendations this patient is an unlikely candidate for rehab. number one he does not want to go to rehab and you cannot be committed to rehab secondly i don't know if there is a rehab which can accept someone on dialysis. he denies depression
. anxiety is a component that might be treated with meds but at this point he did not appear anxious and there are many more important things to addresss medically. i was asked to see this patient regarding rehab and my answer is as above. later
nursing asked me if he is competent to sign out ama. i did not really address with him whether he understands the ramifications of his illness etc to make a decision re competency. i would say clearly he needs to be here. i doubt he would be able
to walk out of the hospital today and rather than asking about competency i would suggest a meeting be held w him and parents to discuss this issue . i dare say parents would encourage him to stay and hopefully given than he lives with them he would
abide by their wishes. if not then we can discuss whether he is competent to refuse. he cannot simply be committed to medical rx. a 302 is for PSYCHIATRIC care. the mental health sporting goods sales associate is not going to order medical treatment. it is my impression
would have to seek guardianship.
--- NOTE | 2024-03-18 13:09 | CM ---
CM following re: discharge planning.
Discussed in Rounds, reviewed pt's chart, met with pt and pt's mother at bedside.
Per rounds meeting, pt extubated yesterday,is awake, still drowsy, mumbling but able to speak, requesting pain medications, requesting to sign out AMA, is pulling at lines, continue supportive care. Psychiatry and [facility] following.
Pt resides with his mother and father in a split level home with no steps to enter. The patient receives HD - at [facility], uses [facility] transport, has been on HD treatment for 3 years and has not been in compliance with HD
treatment and had multiple visits to ED in the next few months and h/o leaving AMA. 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
[facility] following to assist with outpatient D&A treatment resources.
D/C plan: uncertain at this time and will depend on pt's progress.
CM will follow with discharge plan updates as hospitalization progresses
[2024-03-18] MEDS: ATIVAN 0.5 MG IV ×2 (14:54→20:17)
[2024-03-18] MEDS: NSS (PRESERVATIVE FREE) 0.25 ML IV ×2 (14:55→20:18)
--- NOTE | 2024-03-18 15:18 | PTCARENOTE ---
Patient continues to not be fully coherent. Is mumbling, pulling at lines, pulling at restraints wants to go home, states he wants to sign AMA. Patient is not able to make sound decisions yet per Dr. Kate. Explained to mother at bedside, that
once he is cleared by PT/OT and psychiatry, we will not be able to keep him, unless he is a danger to himself. Can not be 302 to go to rehab. continuing supportive care.
[2024-03-18 17:51] LABS: Amphetamines, Serum Negative ng/mL (Cutoff 20); Barbiturates, Serum Negative ng/mL (Cutoff 50); Benzodiazepines, Serum Negative ng/mL (Cutoff 50); Buprenorphine, Serum Negative ng/mL (Cutoff 1); Cannabinoids, Serum Negative ng/mL (Cutoff 20); Cocaine Metabolites, Serum Negative ng/mL (Cutoff 20); Methadone, Serum Negative ng/mL (Cutoff 25); Methamphetamine, Serum Negative ng/mL (Cutoff 20); Opiates, Serum Negative ng/mL (Cutoff 20); Oxycodone, Serum Negative ng/mL (Cutoff 20); Phencyclidine, Serum Negative ng/mL (Cutoff 10)
[2024-03-18 17:53] LABS: Glucose - Point of Care 96 mg/dl (70-99)
--- NOTE | 2024-03-18 21:34 | PTCARENOTE ---
Pt restrained for safety reasons, impulsive, trying to climb OOB/pull at lines. PRN Ativan. Generalized weakness. Afebrile. ST on monitor. BP reading high, BP being taken on calf, pt tenses up with attempt to take BP. When relaxed 160s/80s. 4L nc.
Nonproductive cough. NPO. Anuric.
[2024-03-18 23:22] LABS: Glucose - Point of Care 86 mg/dl (70-99)
[2024-03-19] VITALS (32 sets, daily range): BP systolic 129–217; BP diastolic 80–137; BMI 23.3
[2024-03-19] MEDS: NOVOLOG FLEXPEN-LOW RESISTANCE SC ×5 (00:29→23:31)
[2024-03-19] MEDS: HEPARIN 5000 UNITS SC ×4 (01:00→23:37)
[2024-03-19] MEDS: NSS (PRESERVATIVE FREE) 0.25 ML IV (02:57)
[2024-03-19] MEDS: ATIVAN 0.5 MG IV ×3 (02:57→20:33)
[2024-03-19 03:13] LABS: Hematocrit 32.5 % (39.0-52.0); Hemoglobin 10.9 g/dL (13.0-18.0); Mean Corp Hgb Conc. 33.5 g/dL (33.0-37.0); Mean Corpuscular Hgb 31.8 pg (27.0-31.0); Mean Corpuscular Volume 94.8 fL (80.0-94.0); Mean Platelet Volume 9.5 fL (7.4-10.4); Platelet Count 156 10^3/uL (130-400); Red Blood Cell Count 3.43 10^6/uL (4.70-6.10); Red Cell Dist. Width 18.6 % (11.5-14.5); White Blood Cell Count 6.5 10^3/uL (4.8-10.8)
[2024-03-19 03:40] LABS: Blood Urea Nitrogen 27 mg/dl (9-20); Calcium 9.2 mg/dl (8.4-10.2); Carbon Dioxide 23 mmol/L (22-30); Chloride 100 mmol/L (98-107); Estimated Creatinine Clearance 22 ml/min; Glucose 101 mg/dl (70-99); Magnesium 2.1 mg/dl (1.6-2.3); Potassium 3.9 mmol/L (3.5-5.1); Sodium 139 mmol/L (135-145); Triglycerides 163 mg/dl (10-149); eGFR 16.76
--- NOTE | 2024-03-19 07:20 | W.PN.INTV ---
Documented by User: Carol Cardoso MD, Resident 03/19/24 09:59
Today's Communication / Plan
Recommendations
HD today
Speech therapy evaluation
Assessment
-
Mr Luis Angel Soliz is a 33-year-old male with past medical history of diabetes melitis type I (on insulin pump), ESRD on hemodialysis MWF, hypertension, with multiple ED visits over the past week, noncompliance with dialysis and diabetic therapy,
now presents with abdominal pain, nausea. 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 At ER showed interim increasing lethargy
and bradycardia, sustained witnessed cardiac arrest at ER SB and then PEA, promptly intubated, R femoral TLC placed.
Cardiac arrest, PEA/asystole at ED 03-13
Given CPR after admission to ED
VDRF, post Cardiac Arrest, intubated 03/13/2024
Extubated 03-17
Multiple missed dialysis sessions
Last dialysis 03/05 and 03/10
Fever
Acute DKA
Metabolic acidemia, elevated lactate
Chronic abdominal pain/nausea/emesis, waxing and waning
Gastroparesis
Hyperkalemia
Hyponatremia
chronic, baseline sodium 129-134
Elevated troponin
Elevated alcohol level
Prolonged QT
Conditions present prior to admission
Chronic right pleuroparenchymal process
s/p rt Thora 02/17/24, -1800cc transudate
Cytology negative
Anemia
History of DM type I
Insulin pump, history of malfunction, noncompliance
End-stage renal disease
Secondary to diabetic nephropathy
Noncompliant with dialysis
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
ePAP pressure 65
Ascites, small pericardial effusion per prior imaging
Suspected sleep disordered breathing ongoing tobacco use
History of hypoxia on home oxygen
Details unclear, set up through [facility]
Anxiety/depression
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
Reported history of PE 2020, treated 6m OAC
History of medical noncompliance
Ongoing tobacco use, 10+ pack year
Plan/recommendations
Off pressors (NE off 03/18/2024, given at very low dose for HD. Neosynephrine off 03-15)
Suspect asystole was due to to electrolyte abnormalities, lack of dialysis compliance, ETOH intoxication, and potentially illicit drug use (drug screen not taken on adm, naloxone not adm at ER)
Elevated alcohol levels noted on adm (negative level on 3 other tests in January and February 2024)
Patient also had reportedly a history of hypoxia on home oxygen for unclear reasons
Echocardiogram February 2024: normal LV function with RV pressure overload and RV dilatation, PA pressure 50, this appears to be chronic and stable and multifactorial, no comment on right ventricular function
History of PE noted per patient report, but no records available to confirm, currently not on outpatient AC
HIV testing negative in recent adm
Follow up TTE 03-15 with LVEF 60-65%, dilated hypokinetic RV, mild-mod TR: overall no change c/w 02-18-24
Known RV abnormalities on TTE 06-30-23
Updated ROSE MARY doppler 03-17: negative (negative Jul 2023 along negative CTA)
Pulmonary HTN (groups suspected 1 [drugs], 5 [CKD]), ePAP pressure 65), no w/u recommended at this juncture
Will not proceed to chest CTA at this juncture
Did not need brain CT as MS improving
Was on AC MV
Noted h/o medical noncompliance, ETOH use, suspected illicit drug use, suspected personality disorder
SBT appropriate 03-16, tolerated 1 h trial, f/u ABG 03-16 unfortunately with resp acidosis and marginal MS and strength, returned to ACV
Resumed weaning trial 03-17 after early AM HD
Borderline QTc 03-17 at 477
Post 03-17 HD CXR with no acute findings
Transitioned propofol to dexmedetomidine 03-17
Did well on low dose dexmedetomidine in terms of weaning trial
Extubated to O2 NC by 4 pm 03-17
Off dexmed after extubation
Keep asp precs
Albuterol nebs prn
Fever, mild and transient yesterday 03/18/2024.
Resolved today 03/19/2024
Blood cxs 03-13 with no growth, 03-15 so far negative
No resp secs sent till 03-17: Positive Staph aureus MRSA resulted 03/18
Scanty UO for cx
Started vanco/zosyn 03-15
MRSA screening 03-17 positive (positive in January and Jul 2023)
D/c vanco 03-17
D/c zosyn 03-18
On chronic HD
Completed session on 03/13 and 03-15
HD 03-17
Received R femoral groin line in place at ER
Transitioned to RUE PICC 03-15
Removed R fem central line and cx tip 03-15, negative
Remove R radial A-line 03-18
Follow electrolytes prolonged QT on EKG noted. This has been present during prior studies
Continue with close monitoring of blood sugar, adjusting insulin as appropriate
Unfortunately, patient with significant noncompliance in the past per reviewing records
Reviewed CT abdomen/. Moderate right-sided pleural effusion with likely trapped lung physiology, area of pleural thickening
This appears to be chronic as far back as April 2023, was not present on CT chest April 2021
No current need for thoracentesis
Medical noncompliance, patient apparently with history of signing out AMA after not receiving narcotic therapy, also follows at [facility]
Suspect asystole was due to to electrolyte abnormalities, lack of dialysis compliance, ETOH intoxication, and potentially illicit drug use (drug screen not taken on adm, naloxone not adm at ER)
Elevated alcohol levels noted on adm (negative level on 3 other tests in January and February 2024)
Checked UDS, SDS 03-15: cannot rule out positive U methamphetamine could be secondary to use of trazodone
D/w lab , pending serum drug screen, depending on results will resend out new blood sample or previous sample if still appropriate for analysis (if qualitative test positive, reflexive quantitative test will be done proving or disproving
presence of amphetamines)
D/w Luis Angel, he denies use of illicit drugs
Minimize narcotic therapy given nausea/emesis, gastroparesis
Continue n.p.o. for now
Speech evaluation 03-18
Psychiatry evaluated patient 03/18. Recommendations appreciated
Per family inpatient rehab was coordinated by center but unfortunately not approved by insurance in past
DVT prophylaxis: Subcutaneous heparin every 8 hours
GI prophylaxis: On pantoprazole
IMU level of care 03-18, then can transition to telemetry, will sign off then
D/w MDT
Data:
TTE 02-18-2024:
Normal left ventricular systolic function. LV ejection fraction is 60% by volumetric assessment.
Mild concentric left ventricular hypertrophy.
The right ventricle is dilated. Septum flattened in systole consistent with RV pressure overload.
Subjective Dataa
Subjective Data
Date of Service:
Date of Service: March 19, 2024
Chief Complaint: City Supervisor Follow Up
Subjective:
Overnight event. Patient restrained for safety reasons. Per nurse, he was trying to climb out of bed, pulled out all his lines. Ativan given.
Today, patient in bed with no acute complaints. He expresses his desire to leave A.
Review of Systems
General: Fever (n) and Chills (n)
Cardiopulmonary: Dyspnea (n)
GI: Abdominal Pain (n)
Objective Data
Data Reviewed
Vital Signs / I&O / Oxygen:
Vital Signs
Temp Pulse Resp BP Pulse Ox
97.9 F 95 26 156/94 98
03/19/24 03:00 03/19/24 06:30 03/19/24 06:30 03/19/24 06:00 03/19/24 06:30
Intake and Output
03/18/24 03/19/24 03/20/24
06:59 06:59 06:59
Intake Total 1357.30 / 1364.80 7.5 / 7.5
Balance 1357.30 / 1364.80 7.5 / 7.5
SaO2 [CPAP/PSV] 96
SaO2 [A/C] 97
SaO2 98
Nasal Cannula flow liters per 4
minute
Physical Exam
General: Respiratory Distress (n), Other (Left upper extremity AV fistula) and Other ( RUE PICC)
HEENT: Normocephalic, Anicteric, Moist Mucous Membranes and Thrush (n)
Cardiovascular: S1-S2, Regular Rhythm, Murmur (n), Rub (n), JVD (n) and Other (RUE PICC, R radial A-line)
Respiratory: Wheeze (mild), Crackles (n), Rhonchi (n), Non-Labored Respirations and Stridor (n)
GI: Soft and Non Distended
Neurology: Awake, Oriented and No Motor Deficits (but weak)
Skin: Warm, Cyanosis (n), Jaundice (n) and Rash (n)
Labs/Micro/Reports
Lab Data
03/19/24 02:55
03/19/24 02:55
Microbiology
03/17/24 11:43 Tracheal Aspirate Respiratory Culture - Preliminary
Gram negative bacilli
03/17/24 11:43 Tracheal Aspirate Gram Stain - Preliminary
03/17/24 11:43 Nose MRSA Screen - Final
Staph aureus MRSA
03/15/24 13:01 Blood/Venous Blood Culture - Preliminary
No Growth in 72 hours- Final report to follow
03/15/24 12:20 Blood/Venous Blood Culture - Preliminary
No Growth in 72 hours- Final report to follow
03/15/24 16:38 Catheter Tip Catheter Tip Culture - Final
No Growth After 72 Hours
03/13/24 08:58 Blood/Venous Blood Culture - Final
No Growth - Final Report
03/13/24 06:58 Blood/Venous Blood Culture - Final
No Growth - Final Report

Documented by User: Salvatore Short MD 03/19/24 11:18
Today's Communication / Plan
Recommendations
HD today
Speech therapy evaluation
Reconsult prn
Assessment
-
Mr Luis Angel Soliz is a 33-year-old male with past medical history of diabetes melitis type I (on insulin pump), ESRD on hemodialysis MWF, hypertension, with multiple ED visits over the past week, noncompliance with dialysis and diabetic therapy,
now presents with abdominal pain, nausea. 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 At ER showed interim increasing lethargy
and bradycardia, sustained witnessed cardiac arrest at ER SB and then PEA, promptly intubated, R femoral TLC placed.
Cardiac arrest, PEA/asystole at ED 03-13
Given CPR after admission to ED
VDRF, post Cardiac Arrest, intubated 03/13/2024
Extubated 03-17
Multiple missed dialysis sessions
Last dialysis 03/05 and 03/10
Fever
Acute DKA
Metabolic acidemia, elevated lactate
Chronic abdominal pain/nausea/emesis, waxing and waning
Gastroparesis
Hyperkalemia
Hyponatremia
chronic, baseline sodium 129-134
Elevated troponin
Elevated alcohol level
Prolonged QT
Conditions present prior to admission
Chronic right pleuroparenchymal process
s/p rt Thora 02/17/24, -1800cc transudate
Cytology negative
Anemia
History of DM type I
Insulin pump, history of malfunction, noncompliance
End-stage renal disease
Secondary to diabetic nephropathy
Noncompliant with dialysis
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
ePAP pressure 65
Ascites, small pericardial effusion per prior imaging
Suspected sleep disordered breathing ongoing tobacco use
History of hypoxia on home oxygen
Details unclear, set up through [facility]
Anxiety/depression
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
Reported history of PE 2020, treated 6m OAC
History of medical noncompliance
Ongoing tobacco use, 10+ pack year
Plan/recommendations
Off pressors (NE off 03/18/2024, given at very low dose for HD. Neosynephrine off 03-15)
Suspect asystole was due to to electrolyte abnormalities, lack of dialysis compliance, ETOH intoxication, and potentially illicit drug use (drug screen not taken on adm, naloxone not adm at ER)
Elevated alcohol levels noted on adm (negative level on 3 other tests in January and February 2024)
Patient also had reportedly a history of hypoxia on home oxygen for unclear reasons
Echocardiogram February 2024: normal LV function with RV pressure overload and RV dilatation, PA pressure 50, this appears to be chronic and stable and multifactorial, no comment on right ventricular function
History of PE noted per patient report, but no records available to confirm, currently not on outpatient AC
HIV testing negative in recent adm
Follow up TTE 03-15 with LVEF 60-65%, dilated hypokinetic RV, mild-mod TR: overall no change c/w 02-18-24
Known RV abnormalities on TTE 06-30-23
Updated ROSE MARY doppler 03-17: negative (negative Jul 2023 along negative CTA)
Pulmonary HTN (groups suspected 1 [drugs], 5 [CKD]), ePAP pressure 65), no w/u recommended at this juncture given social situation of noncompliance and lack of insight
Will not proceed to chest CTA at this juncture
Did not need brain CT as MS improving
Was on AC MV
Noted h/o medical noncompliance, ETOH use, suspected illicit drug use, suspected personality disorder
SBT appropriate 03-16, tolerated 1 h trial, f/u ABG 03-16 unfortunately with resp acidosis and marginal MS and strength, returned to ACV
Resumed weaning trial 03-17 after early AM HD
Borderline QTc 03-17 at 477
Post 03-17 HD CXR with no acute findings
Transitioned propofol to dexmedetomidine 03-17
Did well on low dose dexmedetomidine in terms of weaning trial
Extubated to O2 NC by 4 pm 03-17
Off dexmed after extubation
Keep asp precs
Albuterol nebs prn
Fever, mild and transient yesterday 03/18/2024.
Resolved today 03/19/2024
Blood cxs 03-13 with no growth, 03-15 so far negative
No resp secs sent till 03-17: Positive Staph aureus MRSA resulted 03/18
Scanty UO for cx
Started vanco/zosyn 03-15
MRSA screening 03-17 positive (positive in January and Jul 2023)
D/c vanco 03-17
D/c zosyn -
On chronic HD
Completed session on 03/13 and 03-15
HD 03-17 and
Received R femoral groin line in place at ER
Transitioned to RUE PICC 03-15
Removed R fem central line and cx tip 03-15, negative
Removed R radial A-line 03-18
Follow electrolytes prolonged QT on EKG noted. This has been present during prior studies
Continue with close monitoring of blood sugar, adjusting insulin as appropriate
Unfortunately, patient with significant noncompliance in the past per reviewing records
Reviewed CT abdomen/. Moderate right-sided pleural effusion with likely trapped lung physiology, area of pleural thickening
This appears to be chronic as far back as April 2023, was not present on CT chest April 2021
No current need for thoracentesis
Medical noncompliance, patient apparently with history of signing out AMA after not receiving narcotic therapy, also follows at [facility]
Suspect asystole was due to to electrolyte abnormalities, lack of dialysis compliance, ETOH intoxication, and potentially illicit drug use (drug screen not taken on adm, naloxone not adm at ER)
Elevated alcohol levels noted on adm (negative level on 3 other tests in January and February 2024)
Checked UDS, SDS 03-15: positive U methamphetamine false positive secondary to use of trazodone
D/w lab , serum drug screen from 03-15 sample qualitatively negative, no need for reflexive quantitative test
D/w Luis Angel, he denies use of illicit drugs
Minimize narcotic therapy given nausea/emesis, gastroparesis
Continue n.p.o. for now
Speech evaluation 03-18
Psychiatry evaluated patient 03/18. Recommendations appreciated
Per family inpatient rehab was coordinated by HD center but unfortunately not approved by insurance in past
DVT prophylaxis: Subcutaneous heparin every 8 hours
GI prophylaxis: On pantoprazole
IMU level of care 03-18, can transition to telemetry
Reconsult as needed
D/w MDT
Data:
TTE 02-18-2024:
Normal left ventricular systolic function. LV ejection fraction is 60% by volumetric assessment.
Mild concentric left ventricular hypertrophy.
The right ventricle is dilated. Septum flattened in systole consistent with RV pressure overload.
ATTENDING PHYSICIAN ATTESTATION:
(Follow-up Visit:)
I personally saw and evaluated the patient along with the Resident Dr Salinas.
Discussed with Resident and discussed in rounds with MDT.
I agree with Resident�s findings and plan as documented in the resident�s note, which was edited by myself.
Objective Data
Physical Exam
Cardiovascular: Other (RUE PICC)
--- NOTE | 2024-03-19 08:04 | PN.DE.MGMTRT ---
Insulin Management
- -
03/19/2024: Diabetes Management F/U:
33 year old male well known to me from recurrent hospital admissions.
PMH: ESRD on HD (MWF), T1DM for 18 years. He was using a Medtronic [id number] pump with NovoLog insulin and Guardian sensor.
Pt presented to ED on 03/10-03/11 c/o weakness, abd pain, N/V due DKA and significant volume overload after missing HD. He was stabilized and signed out AMA.
He returned to the ER on 03/13 c/o N/V, asking for IV narcotics and was found to be hypotensive, became bradycardic and went into PEA arrest.
Patient extubated 03/17. Awake, alert, oriented to self, offers no complaints. Noted for strong, wet cough. Remains NPO, awaiting swallow eval.
Glucose stable on Basal insulin Lantus 6 units in AM. sugar was 101@ 2am, no POC obtained this morning.
Will make no changes to current regimen. Cont Lantus 6 units in AM and low corrective. If diet started will need AC NovoLog.
Will not resume pump at this time.
Diabetes plan of care discussed with pt's Nurse.
Diabetes History
- -
Type of Diabetes: 1
Pre-Admission Diabetes Regimen
03/18/24 03/19/24
06:23 02:55
Creatinine 3.7 H 4.5 H*
Insulin Pump Settings
IP Diabetes Regimen
03/18/24 03/18/24 03/18/24
06:23 11:55 17:39
Glucose 218 H
POC Glucose 135 H 96
03/18/24 03/19/24
23:11 02:55
Glucose 101 H
POC Glucose 86
Patient Education
--- NOTE | 2024-03-19 08:09 | W.PN.HOSP.TC ---
Today's Communication/Plan
-
Dialysis
Speech therapy consult
Echocardiogram
Assessment / Plan
Assessment / Plan
Gen-awake, not alert
HEENT-NC, AT, anicteric
Neck-supple
CV-reg, no M, +S1/S2, pericardial friction rub
Lungs-clear B/L
Abd-soft, NT, ND
Ext-no edema
Musculoskeletal-no cyanosis, clubbing
Skin-warm and dry. Right groin femoral triple-lumen catheter, right upper extremity midline
Cardiac arrest - likely secondary to severe metabolic acidosis/noncompliance with hemodialysis.
Pericardial friction rub noted today. Check echocardiogram.
Acute hypoxic respiratory failure - status post intubation mechanical ventilation. Extubated 03/17. Chest x-ray from 03/17 shows bilateral pleural effusions, right effusion slightly improved. Parenchymal opacities within both lower lungs, most
likely due to compressive atelectasis. Slight improvement pulmonary edema pattern.
Speech therapy evaluated him on 03/18, recommended NPO. Reevaluation today. I would consider Dobbhoff tube placement as he has not had any nutrition this week. Will defer to intensive care team.
Shock -differential diagnosis includes severe volume depletion, cardiogenic, septic, etc. weaned off vasopressors. Hemodynamically stable.
Fevers noted on March 14. Blood cultures negative so far. White blood cell count has been normal so far. Can stop antibiotics and observe. No obvious infection
DM1 with DKA -reportedly using insulin pump at home, doubt compliance. Transitioned to Lantus 6 units daily on March 14, low resistance NovoLog corrective scale. Glucose 218 this morning. Diabetes SALT CUTTER following.
ESRD - on hemodialysis M, W, F. Weight is down to 68 kg.
Severe metabolic acidosis - secondary to missed dialysis and diabetic ketoacidosis.
-Patient with history of missing hemodialysis sessions.
Atrial fibrillation -with rapid ventricular response. Back in sinus rhythm. Not long-term anticoagulation candidate given known noncompliance. Cardiology noted.
Severe alcohol use disorder
-Per patient mother, patient drank a whole bottle of whiskey on 03/12/2024
Chronic abdominal pain associated with nausea and vomiting likely secondary to gastroparesis
Acute nonischemic myocardial injury -troponin trending down. Etiology likely due to cardiac arrest, CPR, atrial fibrillation, ESRD, etc.
Recurrent right pleural effusion
-Chest x-ray with small to moderate pleural effusion with adjacent atelectasis versus pneumonia
Chronic anemia of renal disease
-Hemoglobin stable
Essential hypertension -currently in shock. Hold antihypertensives.
Severe pulmonary hypertension
Reported history of pulmonary embolism -date unknown. Records not available. Venous Doppler ultrasound lower extremities negative for DVT. Last CT chest from July 2023 negative for pulmonary embolism.
Anxiety/depression
-Hold meds till able to tolerate p.o. intake
Tobacco dependence/severe drug-seeking behavior
-Smokes half pack of cigarettes per day
Significant past medical history of noncompliance with medications and hemodialysis
Full code
Anticipated Discharge: > 48 hours
Subjective/Interval History
-
Date of Service: March 19, 2024
Patient seen and examined. Getting dialysis currently. No complaints.
Objective Data
-
Labs:
Laboratory Results
03/19/24
02:55
WBC 6.5
Hgb 10.9 L
Hct 32.5 L
Plt Count 156
Sodium 139
Potassium 3.9
Chloride 100
Carbon Dioxide 23
BUN 27 H
Creatinine 4.5 H*
Glucose 101 H
Calcium 9.2
Vital Signs:
Vital Signs
Temp Pulse Resp BP Pulse Ox
97.9 F 95 26 156/94 98
03/19/24 03:00 03/19/24 06:30 03/19/24 06:30 03/19/24 06:00 03/19/24 06:30
I&O
03/18/24 03/19/24 03/20/24
06:59 06:59 06:59
Intake Total 1357.30 / 1364.80 7.5 / 7.5
Balance 1357.30 / 1364.80 7.5 / 7.5
Review of Systems
-
History Source: Patient
All other systems: Reviewed and negative
[2024-03-19] MEDS: MIRALAX TUBE (10:12)
[2024-03-19] MEDS: PROTONIX IV 40 MG IV (10:21)
[2024-03-19] MEDS: LANTUS 0.0599999999999999978 UNITS SC (10:21)
[2024-03-19] MEDS: NSS (PRESERVATIVE FREE) 10 ML IV (10:21)
[2024-03-19] MEDS: FOLVITE PO (10:45)
[2024-03-19] MEDS: THIAMINE INJECTION 100 MG IV ×2 (10:45→20:08)
--- NOTE | 2024-03-19 11:04 | W.PN.NEPH.HD ---
Assessment
-
- patient complaining of pain during HD
- blood pressures stable
- well above EDW
Progress Note - Hemodialysis
-
Date of Service: March 19, 2024
Duration: 30 minutes and 3 hours
Potassium Bath: 3
Calcium Bath: 2.5
Opti-Dialyzer: 160
Ultrafiltration: Other
Blood Flow: 400
Dialysate Flow: 600
[2024-03-19] MEDS: FOLVITE 50.2000000000000028 MG IV (11:36)
[2024-03-19] MEDS: LOPRESSOR 5 MG IV ×3 (13:37→23:37)
--- NOTE | 2024-03-19 13:49 | CM ---
CM following re: discharge planning.
Discussed in Rounds, reviewed pt's chart, met with pt and pt's mother at bedside.
Per rounds meeting, HD today, still drowsy, lethargic, remains in restraints, continue supportive care. Psychiatry and [facility] following.
Pt resides with his mother and father in a split level home with no steps to enter. The patient receives HD -- at [facility], uses [facility] transport, has been on HD treatment for 3 years and has not been in compliance with HD
treatment and had multiple visits to ED in the next few months and h/o leaving AMA. 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
PT and OT evaluations noted - SNF vs home PT recommended.
[facility] following to assist with outpatient D&A treatment resources.
Psychiatry evaluation noted, pt has no qualification for 302, cannot simply be committed to medical rx and due to poor judgement.
D/C plan: uncertain at this time and will depend on pt's progress.
CM will follow with discharge plan updates as hospitalization progresses
[2024-03-19] MEDS: DEXTROSE 50% SYRINGE 12.5 GRAMS IV ×2 (13:55→20:09)
[2024-03-19 14:07] LABS: Glucose - Point of Care 63 mg/dl (70-99)
--- NOTE | 2024-03-19 14:26 | W.PN.UPDATE ---
Update Note
Progress Note Update
patient seen chart reviewed. i attempted to talk to patient but i could not get him to respond. his eyes were closed and he was sort of snorting with shallow breathing. . i spoke with nursing who report he has been drowsy all day . this am his
respiratory rate was in the forties although it has come down some. his vital signs have been elevated all day. he has only received two o.5 mg ativan today and these were not per msas but for anxiety and the last was this am. he was admitted on
the march. it is to me unlikely thatt his is withdrawal from etoh. alerted dr king and dr valle of my concerns.
[2024-03-19 15:04] LABS: Glucose - Point of Care 122 mg/dl (70-99)
--- NOTE | 2024-03-19 15:39 | PTCARENOTE ---
Dobbhoff tube inserted to left nares abdominal XRay pending
[2024-03-19 15:57] LABS: B.E. 1.6 mmol/L; HCO3 25.8 mmol/L (21-28); O2 Saturation % 98.4 % (94-98); PCO2 38 mmHg (35-48); PO2 83 mmHg (83-108); pH 7.44 (7.35-7.45)
[2024-03-19] MEDS: VITAMIN B1 PO (17:26)
[2024-03-19 17:42] LABS: Glucose - Point of Care 72 mg/dl (70-99)
[2024-03-19] MEDS: NOVOLOG FLEXPEN 4 UNITS SC ×2 (18:07→23:38)
--- NOTE | 2024-03-19 18:09 | PTCARENOTE ---
patient in bed, awake, monica
\\[id number]
[id number]]
\\
--- NOTE | 2024-03-19 18:09 | PTCARENOTE ---
patient in bed. awake, drowsy. Restraints to b/l UE to prevent patient of pulling Dophoff Rt nares placement of dophoff confirmed by abdominal Xray. Nephro at 10 cc/25 water auto flushed infusing, goal 50cc. BP 182/99 SR 95; RR 34; 96% 2L via nasal
canula. weak moist non-productive cough. Metoprolol 5 mg iv adm. Blood sugar 72/4 units Aspar adm per current order. HOB elevated call luevano within reach
[2024-03-19 20:19] LABS: Glucose - Point of Care 45 mg/dl (70-99)
[2024-03-19 20:31] LABS: Glucose - Point of Care 78 mg/dl (70-99)
[2024-03-19] MEDS: TYLENOL ORAL SOLUTION 650 MG TUBE (20:33)
[2024-03-19 22:25] LABS: Glucose - Point of Care 86 mg/dl (70-99)
--- NOTE | 2024-03-19 23:15 | PTCARENOTE ---
Spoke with patients mother Cherise and updated plan of care, patient lethargic but able to follow directions and JERRY. Tolerating TF, with blle pain when turned. Tylenol given as ordered.
[2024-03-19 23:29] LABS: Glucose - Point of Care 96 mg/dl (70-99)
[2024-03-20] VITALS (27 sets, daily range): BP systolic 114–212; BP diastolic 61–121; PULSE 93–94; O2SAT 95–99; BMI 20.5
--- NOTE | 2024-03-20 01:37 | PTCARENOTE ---
Provider notified BP trending up. Patient remains drowsy, lethargic, requesting for the restrains to be removed.
[2024-03-20] MEDS: LOPRESSOR 5 MG IV ×2 (02:10→05:32)
[2024-03-20] MEDS: DEXTROSE 50% SYRINGE 12.5 GRAMS IV ×2 (02:48→03:04)
[2024-03-20 02:59] LABS: Glucose - Point of Care 32 mg/dl (70-99)
--- NOTE | 2024-03-20 03:10 | PTCARENOTE ---
Provider notified of blood sugar trend, hypoglycemic protocol being followed.
[2024-03-20 03:13] LABS: Glucose - Point of Care 58 mg/dl (70-99)
[2024-03-20 03:27] LABS: Glucose - Point of Care 134 mg/dl (70-99)
[2024-03-20 04:27] LABS: Blood Urea Nitrogen 17 mg/dl (9-20); Calcium 9.1 mg/dl (8.4-10.2); Carbon Dioxide 27 mmol/L (22-30); Chloride 101 mmol/L (98-107); Estimated Creatinine Clearance 28 ml/min; Glucose 138 mg/dl (70-99); Potassium 3.2 mmol/L (3.5-5.1); Sodium 138 mmol/L (135-145); eGFR 22.67
[2024-03-20] MEDS: NOVOLOG FLEXPEN-LOW RESISTANCE SC ×2 (05:35→23:49)
[2024-03-20 05:36] LABS: Glucose - Point of Care 123 mg/dl (70-99)
[2024-03-20] MEDS: NOVOLOG FLEXPEN SC (06:14)
--- NOTE | 2024-03-20 07:38 | W.PN.HOSP.TC ---
Today's Communication/Plan
-
Continue tube feeds
Replete electrolytes
Resume Coreg
Adjust insulin
PT/OT
Speech therapy
Assessment / Plan
Assessment / Plan
Gen-awake, not alert, oriented to month and year but not day of the week
HEENT-NC, AT, anicteric
Neck-supple
CV-reg, no M, +S1/S2, pericardial friction rub
Lungs-clear B/L
Abd-soft, NT, ND
Ext-no edema
Musculoskeletal-no cyanosis, clubbing
Skin-warm and dry. Right groin femoral triple-lumen catheter, right upper extremity midline
Cardiac arrest - likely secondary to severe metabolic acidosis/noncompliance with hemodialysis. Small pericardial effusion noted on most recent echocardiogram, along with moderate TR, severe pulmonary hypertension. LVEF 60 to 65%. Reduced RV
systolic function.
Acute hypoxic respiratory failure - status post intubation mechanical ventilation. Extubated 03/17. Off oxygen completely when I walked into the room this morning, nurse placed on 2 L. Pulse ox was 90% on room air.
Last chest x-ray was March 19, large bilateral lower lobe airspace consolidations, moderate right small left pleural effusions. Acute nondisplaced right fourth lateral rib fracture.
Nutrition -continue Dobbhoff tube with tube feeds. Advance to goal rate. Monitor electrolytes. Watch for refeeding syndrome.
Hypokalemia -will replete. Check magnesium.
Shock -differential diagnosis includes severe volume depletion, cardiogenic, septic, etc. weaned off vasopressors. Hemodynamically stable.
Fevers noted on March 14. Blood cultures negative so far. Sputum culture notes Hafnei alvei, MRSA. Suspect colonization as he is clinically improved. White blood cell count has been normal so far. Monitor off antibiotics.
DM1 with DKA -reportedly using insulin pump at home, doubt compliance. DKA resolved. Diabetes SHOWROOM SALES CONSULTANT following. Currently on Lantus 6 units daily, NovoLog 4 units every 6 hours while on tube feeds. Glucose 138 this morning, as low as 32 at 2 AM.
Suspect he will need lower dose of NovoLog every 6 hours. Discussed with nurse.
ESRD - on hemodialysis M, W, F. Weight is down to 68 kg.
Severe metabolic acidosis - secondary to missed dialysis and diabetic ketoacidosis.
-Patient with history of missing hemodialysis sessions.
Atrial fibrillation -with rapid ventricular response. Back in sinus rhythm. Not long-term anticoagulation candidate given known noncompliance. Cardiology noted.
Severe alcohol use disorder
-Per patient mother, patient drank a whole bottle of whiskey on 03/12/2024
Chronic abdominal pain associated with nausea and vomiting likely secondary to gastroparesis
Acute nonischemic myocardial injury -troponin trending down. Etiology likely due to cardiac arrest, CPR, atrial fibrillation, ESRD, etc.
Recurrent right pleural effusion
-Chest x-ray with small to moderate pleural effusion with adjacent atelectasis versus pneumonia
Chronic anemia of renal disease
-Hemoglobin stable
Essential hypertension -hypertensive urgency noted last night. Currently on IV metoprolol 5 mg every 6 hours. Now that he has a Dobbhoff tube will resume some of his home antihypertensives. Can resume carvedilol but start at a lower dose.
Severe pulmonary hypertension
Reported history of pulmonary embolism -date unknown. Records not available. Venous Doppler ultrasound lower extremities negative for DVT. Last CT chest from July 2023 negative for pulmonary embolism.
Anxiety/depression
-Hold meds till able to tolerate p.o. intake
Tobacco dependence/severe drug-seeking behavior
-Smokes half pack of cigarettes per day
Significant past medical history of noncompliance with medications and hemodialysis
Full code
Anticipated Discharge: > 48 hours
Subjective/Interval History
-
Date of Service: March 20, 2024
Patient seen and examined. Able to interact with me but still appears lethargic. Answering questions.
Objective Data
-
Labs:
Laboratory Results
03/20/24
03:51
Sodium 138
Potassium 3.2 L
Chloride 101
Carbon Dioxide 27
BUN 17
Creatinine 3.5 H
Glucose 138 H
Calcium 9.1
Vital Signs:
Vital Signs
Temp Pulse Resp BP Pulse Ox
97.0 F 86 27 158/104 95
03/20/24 03:51 03/20/24 06:15 03/20/24 06:15 03/20/24 06:00 03/20/24 06:15
I&O
03/19/24 03/20/24 03/21/24
06:59 06:59 06:59
Intake Total 7.5 / 7.5 505 / 505
Output Total 0 / 0
Balance 7.5 / 7.5 505 / 505
Review of Systems
-
Unable to obtain full review of systems at this time due to: Acuity
History Source: Patient
All other systems: Reviewed and negative
[2024-03-20 08:02] LABS: Glucose - Point of Care 108 mg/dl (70-99)
[2024-03-20 08:07] LABS: Magnesium 2.2 mg/dl (1.6-2.3)
[2024-03-20] MEDS: COREG 6.25 MG TUBE ×2 (08:20→19:44)
[2024-03-20] MEDS: KCL ELIXIR 40 MEQ TUBE (08:20)
[2024-03-20] MEDS: HEPARIN 5000 UNITS SC ×3 (08:21→23:47)
[2024-03-20] MEDS: FOLVITE 1 MG PO (08:21)
[2024-03-20] MEDS: LANTUS 0.0599999999999999978 UNITS SC (08:21)
[2024-03-20] MEDS: MIRALAX TUBE (08:22)
[2024-03-20] MEDS: NSS (PRESERVATIVE FREE) 10 ML IV (08:22)
[2024-03-20] MEDS: THIAMINE INJECTION 100 MG IV ×2 (08:22→19:44)
[2024-03-20] MEDS: PROTONIX IV 40 MG IV (08:22)
--- NOTE | 2024-03-20 10:44 | PTCARENOTE ---
Pt received in bed @ 0700. Disoriented to time. Oriented to place at times. Garbled speech. PRN Tylenol administered for reports of pain throughout body. Pt unable to rate. B/L soft limb restraints in place to prevent removal of Dobhoff tube. SaO2
90% on room air. Nasal canula reapplied; SaO2 > 95% on 2L NC. Occasional nonproductive cough. Lung sounds coarse and diminished throughout. Sinus tach on potline monitor. Trace anasarca. Left nare Dobhoff tube. Nepro with carb steady advanced to
40 ml/hr with 25ml/hr water flush per order. Pt with loose incontinent stool. Rectal trumpet in place draining brown.
[2024-03-20 11:51] LABS: Glucose - Point of Care 165 mg/dl (70-99)
[2024-03-20] MEDS: NOVOLOG FLEXPEN 2 UNITS SC ×3 (12:54→23:48)
[2024-03-20] MEDS: NOVOLOG FLEXPEN-LOW RESISTANCE 1 UNITS SC ×2 (12:55→17:13)
[2024-03-20] MEDS: ATIVAN 0.5 MG IV ×2 (13:01→19:20)
[2024-03-20] MEDS: TYLENOL ORAL SOLUTION 650 MG TUBE ×2 (13:01→19:46)
--- NOTE | 2024-03-20 13:51 | W.PN.NEPH.PH ---
Today's Communication / Plan
-
- HD friday
Assessment/Plan
-
Impression:
Status post PEA/Asystole
PAF : briefly after code on 03/13/24
Metabolic acidemia
Intubation following code
Chronic noncompliance with dialysis
ESRD MWF ([facility]),
left UE AVF
DKA hx/metabolic acidosis
Hyperkalemia
Acute Volume Overload and Hyperkalemia secondary to Missed HD Treatments
Chronic Abdominal Pain / Gastroparesis
Pulmonary hypertension
Polysubstance abuse
Anxiety
Anemia
Right pleural effusion--s/p R throa for pleural effusion with 1.8L transudate 02/17/24
Plan:
A/w DKA status postcardiac arrest witnessed in the emergency
Gap now closed and off insulin drip
Diabetes management per primary team
Patient now in sinus rhythm, off pressor support
Echo notes hypokinetic right ventricle
extubated on 03/17
Next dialysis Friday, will attempt to remove fluid as able
- patient states he may be amenable to extra UF treatment next week
duplex of legs negative for DVT
Patient's notorious noncompliance and drug-seeking behavior will continue to be problematic
d/w primary team
-
-
Date of Service: March 20, 2024
CC / HPI / ROS
-
Chief Complaint:
End-stage renal disease
History of Present Illness:
ESRD Friday schedule
Hemodynamically stable, now off pressors
Extubated
Review of Systems:
Awake and alert
Weights down
No fever
Anuric
Labs
-
Labs:
WBC 6.5 10^3/uL (4.8-10.8) 03/19/24 02:55
RBC 3.43 10^6/uL (4.70-6.10) L 03/19/24 02:55
Hgb 10.9 g/dL (13.0-18.0) L 03/19/24 02:55
Hct 32.5 % (39.0-52.0) L 03/19/24 02:55
Plt Count 156 10^3/uL (130-400) 03/19/24 02:55
Sodium 138 mmol/L (135-145) 03/20/24 03:51
Potassium 3.2 mmol/L (3.5-5.1) L 03/20/24 03:51
Chloride 101 mmol/L (98-107) 03/20/24 03:51
Carbon Dioxide 27 mmol/L (22-30) 03/20/24 03:51
BUN 17 mg/dl (9-20) 03/20/24 03:51
Creatinine 3.5 mg/dL (0.7-1.3) H 03/20/24 03:51
eGFR 22.67 03/20/24 03:51
Glucose 138 mg/dl (70-99) H 03/20/24 03:51
Calcium 9.1 mg/dl (8.4-10.2) 03/20/24 03:51
Phosphorus 5.0 mg/dl (2.5-4.5) H 03/20/24 03:51
Albumin 3.0 g/dl (3.5-5.0) L 03/18/24 06:23
Physical Exam
-
Vital Signs:
Vital Signs
Temp Pulse Resp BP Pulse Ox
98.2 F 86 27 158/104 96
03/20/24 11:31 03/20/24 06:15 03/20/24 06:15 03/20/24 06:00 03/20/24 08:01
Cardiovascular:: Regular rate and rhythm
Respiratory:: Bilateral: Coarse
Lung Excursion:: Normal
Abdomen:: Nontender and Soft
Bowel Sounds:: Normal
Extremity Edema:: +1: Bilateral:
Randhawa Catheter: No
[2024-03-20 17:23] LABS: Glucose - Point of Care 174 mg/dl (70-99)
[2024-03-20 17:47] LABS: Glucose - Point of Care 172 mg/dl (70-99)
[2024-03-20] MEDS: NSS (PRESERVATIVE FREE) 0.25 ML IV (19:20)
[2024-03-20 23:55] LABS: Glucose - Point of Care 115 mg/dl (70-99)
[2024-03-21] VITALS (21 sets, daily range): BP systolic 116–181; BP diastolic 64–138; BMI 21.8
[2024-03-21] MEDS: ATIVAN 0.5 MG IV (01:20)
[2024-03-21] MEDS: NSS (PRESERVATIVE FREE) 0.25 ML IV (01:21)
--- NOTE | 2024-03-21 04:30 | PTCARENOTE ---
Pt removed dobhoff NG tube at approx. 0430.
[2024-03-21 05:29] LABS: % Basophils 0.8 % (0-2); % Eosinophils 2.6 % (0-6); % Immature Granulocytes 1.5 % (0-0.5); % Lymphocytes 24.1 % (20.5-51.1); % Monocytes 11.6 % (1.7-9.3); % Neutrophils 59.4 % (42.2-75.2); Absolute Basophils 0.1 10^3/uL (0-0.2); Absolute Eosinophils 0.2 10^3/uL (0-0.7); Absolute Immature Granulocytes 0.1 10^3/uL (0-0.05); Absolute Lymphocytes 1.7 10^3/uL (1.2-3.4); Absolute Monocytes 0.8 10^3/uL (0.1-0.6); Absolute Neutrophils 4.3 10^3/uL (1.4-6.5); Hematocrit 32.6 % (39.0-52.0); Hemoglobin 10.7 g/dL (13.0-18.0); Mean Corp Hgb Conc. 32.8 g/dL (33.0-37.0); Mean Corpuscular Hgb 31.1 pg (27.0-31.0); Mean Corpuscular Volume 94.8 fL (80.0-94.0); Mean Platelet Volume 11.4 fL (7.4-10.4); Nucleated Red Blood Cells % 0 % (-); Platelet Count 203 10^3/uL (130-400); Red Blood Cell Count 3.44 10^6/uL (4.70-6.10); Red Cell Dist. Width 18.7 % (11.5-14.5); White Blood Cell Count 7.2 10^3/uL (4.8-10.8)
[2024-03-21 06:00] LABS: ALT (SGPT) 46 U/L (0-50); AST (SGOT) 43 U/L (17-59); Albumin 3.3 g/dl (3.5-5.0); Alkaline Phosphatase 134 U/L (38-126); Blood Urea Nitrogen 30 mg/dl (9-20); Calcium 9.5 mg/dl (8.4-10.2); Carbon Dioxide 21 mmol/L (22-30); Chloride 103 mmol/L (98-107); Estimated Creatinine Clearance 19 ml/min; Glucose 155 mg/dl (70-99); Magnesium 2.3 mg/dl (1.6-2.3); Phosphorus 5.5 mg/dl (2.5-4.5); Potassium 4.2 mmol/L (3.5-5.1); Sodium 137 mmol/L (135-145); Total Bilirubin 0.8 mg/dl (0.2-1.3); Total Protein 6.1 g/dl (6.3-8.2); eGFR 15.91
[2024-03-21] MEDS: OFIRMEV 100 IV (06:08)
[2024-03-21] MEDS: NOVOLOG FLEXPEN-LOW RESISTANCE SC ×2 (06:20→12:30)
[2024-03-21] MEDS: NOVOLOG FLEXPEN 2 UNITS SC ×3 (06:23→16:56)
[2024-03-21 06:31] LABS: Glucose - Point of Care 139 mg/dl (70-99)
--- NOTE | 2024-03-21 07:09 | W.PN.HOSP.TC ---
Today's Communication/Plan
-
Reinsert Dobbhoff tube
Resume tube feeds
Restrain
Assessment / Plan
Assessment / Plan
Gen-awake, not alert, oriented to month and year but not day of the week
HEENT-NC, AT, anicteric
Neck-supple
CV-reg, no M, +S1/S2, pericardial friction rub
Lungs-clear B/L
Abd-soft, NT, ND
Ext-no edema
Musculoskeletal-no cyanosis, clubbing
Skin-warm and dry. Right groin femoral triple-lumen catheter, right upper extremity midline
Ongoing hypoactive delirium -likely due to critical illness. Unclear if he suffered any degree of hypoxic encephalopathy during cardiac arrest.
Cardiac arrest - likely secondary to severe metabolic acidosis/noncompliance with hemodialysis. Small pericardial effusion noted on most recent echocardiogram, along with moderate TR, severe pulmonary hypertension. LVEF 60 to 65%. Reduced RV
systolic function.
Acute hypoxic respiratory failure - status post intubation mechanical ventilation. Extubated 03/17. Oxygenation stable on 2 L nasal cannula, 100%.
Last chest x-ray was March 19, large bilateral lower lobe airspace consolidations, moderate right small left pleural effusions. Acute nondisplaced right fourth lateral rib fracture.
Nutrition -patient pulled out Dobbhoff tube last night despite restraints. Nursing to replace today. Add mittens to wrist restraints. Resume tube feeds. Advance to goal rate. Monitor electrolytes. Watch for refeeding syndrome.
Hypokalemia -resolved.
Hyperphosphatemia -likely precipitated by ESRD. Monitor for now.
Shock -differential diagnosis includes severe volume depletion, cardiogenic, septic, etc. weaned off vasopressors. Hemodynamically stable.
Fevers noted on March 14. Blood cultures negative so far. Sputum culture notes Hafnei alvei, MRSA. Suspect colonization as he is clinically improved. White blood cell count has been normal so far. Monitor off antibiotics.
DM1 with DKA -reportedly using insulin pump at home, doubt compliance. DKA resolved. Diabetes PRINCIPLE SOFTWARE ENGINEER following. Glucose 155 this morning. Glucose is controlled over the past 24 hours. Continue Lantus 6 units daily, NovoLog 2 units every 6 hours,
low resistance NovoLog scale.
ESRD - on hemodialysis M, W, F. Weight is down to 63 kg.
Severe metabolic acidosis - secondary to missed dialysis and diabetic ketoacidosis.
-Patient with history of missing hemodialysis sessions.
Atrial fibrillation -with rapid ventricular response. Back in sinus rhythm. Not long-term anticoagulation candidate given known noncompliance. Cardiology noted.
Severe alcohol use disorder
-Per patient mother, patient drank a whole bottle of whiskey on 03/12/2024
Chronic abdominal pain associated with nausea and vomiting likely secondary to gastroparesis
Acute nonischemic myocardial injury -troponin trending down. Etiology likely due to cardiac arrest, CPR, atrial fibrillation, ESRD, etc.
Recurrent right pleural effusion
-Chest x-ray with small to moderate pleural effusion with adjacent atelectasis versus pneumonia
Chronic anemia of renal disease
-Hemoglobin stable
Essential hypertension -hypertensive urgency resolved. Blood pressures under good control with carvedilol at 6.25 mg twice daily.
Severe pulmonary hypertension
Reported history of pulmonary embolism -date unknown. Records not available. Venous Doppler ultrasound lower extremities negative for DVT. Last CT chest from July 2023 negative for pulmonary embolism.
Anxiety/depression
-Hold meds till able to tolerate p.o. intake
Tobacco dependence/severe drug-seeking behavior
-Smokes half pack of cigarettes per day
Significant past medical history of noncompliance with medications and hemodialysis
Full code
Dispo -unclear discharge date at this point in time. Awaiting return of swallowing function. Still getting tube feeds via Dobbhoff tube. Awaiting improvement in mental status. Ideally needs drug and alcohol rehab on discharge but he will likely
refuse.
Anticipated Discharge: > 48 hours
Subjective/Interval History
-
Date of Service: March 21, 2024
Patient seen and examined. Sleepy this morning, arousable but falls back asleep.
Objective Data
-
Labs:
Laboratory Results
03/21/24
05:14
WBC 7.2
Hgb 10.7 L
Hct 32.6 L
Plt Count 203 D
Sodium 137
Potassium 4.2 D
Chloride 103
Carbon Dioxide 21 L
BUN 30 H
Creatinine 4.7 H*
Glucose 155 H
Calcium 9.5
Total Bilirubin 0.8
AST 43
ALT 46
Alkaline Phosphatase 134 H
Vital Signs:
Vital Signs
Temp Pulse Resp BP Pulse Ox
97.8 F 91 25 146/93 100
03/20/24 23:59 03/21/24 06:15 03/21/24 06:15 03/21/24 05:00 03/21/24 06:15
I&O
03/20/24 03/21/24 03/22/24
06:59 06:59 06:59
Intake Total 505 / 505
Output Total 0 / 0
Balance 505 / 505
Review of Systems
-
Unable to obtain full review of systems at this time due to: Acuity
[2024-03-21] MEDS: MIRALAX TUBE (08:32)
[2024-03-21] MEDS: NSS (PRESERVATIVE FREE) 10 ML IV (08:35)
[2024-03-21] MEDS: THIAMINE INJECTION 100 MG IV ×2 (08:35→21:47)
[2024-03-21] MEDS: PROTONIX IV 40 MG IV (08:35)
[2024-03-21] MEDS: HEPARIN 5000 UNITS SC ×3 (08:36→23:01)
[2024-03-21] MEDS: FOLVITE 1 MG PO (10:59)
[2024-03-21] MEDS: COREG 6.25 MG TUBE ×2 (10:59→21:45)
[2024-03-21] MEDS: LANTUS 0.0599999999999999978 UNITS SC (11:03)
--- NOTE | 2024-03-21 11:13 | PTCARENOTE ---
0700 patient received this am in bed. B/L wrist restraints. Patient AAO x3. c/o of anxiety. SR 88. On POX 97%2L; on RA POX 88%. +1 edema to b/l LE. Abdomen soft non-tender. Last BM 03/21 mirlex held. pt anuric due to chronic dialysis.
ST was ak to see pt of Speech eval. Puree diet with thin liquid recommended , pills whole and apple sauce. pt's mom at the bedside updates given.
[2024-03-21] MEDS: ATIVAN 0.5 MG PO ×2 (11:45→21:46)
--- NOTE | 2024-03-21 12:26 | W.PN.NEPH.PH ---
Today's Communication / Plan
-
HD tomorrow
Assessment/Plan
-
Impression:
Status post PEA/Asystole
PAF : briefly after code on 03/13/24
Metabolic acidemia
Intubation following code
Chronic noncompliance with dialysis
ESRD MWF ([facility]),
left UE AVF
DKA hx/metabolic acidosis
Hyperkalemia
Acute Volume Overload and Hyperkalemia secondary to Missed HD Treatments
Chronic Abdominal Pain / Gastroparesis
Pulmonary hypertension
Polysubstance abuse
Anxiety
Anemia
Right pleural effusion--s/p R throa for pleural effusion with 1.8L transudate 02/17/24
Plan:
A/w DKA status postcardiac arrest witnessed in the emergency
Gap now closed and off insulin drip
Diabetes management per primary team
Patient now in sinus rhythm, off pressor support
Echo notes hypokinetic right ventricle
extubated on 03/17
Next dialysis Friday, will attempt to remove fluid as able
- patient states he may be amenable to extra UF treatment next week
duplex of legs negative for DVT
Patient's notorious noncompliance and drug-seeking behavior will continue to be problematic
d/w primary team
-
-
Date of Service: March 21, 2024
CC / HPI / ROS
-
Chief Complaint:
End-stage renal disease
History of Present Illness:
ESRD Friday schedule
Hemodynamically stable, now off pressors
Extubated
Review of Systems:
Awake and alert
Weights down
No fever
Anuric
Labs
-
Labs:
WBC 7.2 10^3/uL (4.8-10.8) 03/21/24 05:14
RBC 3.44 10^6/uL (4.70-6.10) L 03/21/24 05:14
Hgb 10.7 g/dL (13.0-18.0) L 03/21/24 05:14
Hct 32.6 % (39.0-52.0) L 03/21/24 05:14
Plt Count 203 10^3/uL (130-400) D 03/21/24 05:14
Sodium 137 mmol/L (135-145) 03/21/24 05:14
Potassium 4.2 mmol/L (3.5-5.1) D 03/21/24 05:14
Chloride 103 mmol/L (98-107) 03/21/24 05:14
Carbon Dioxide 21 mmol/L (22-30) L 03/21/24 05:14
BUN 30 mg/dl (9-20) H 03/21/24 05:14
Creatinine 4.7 mg/dL (0.7-1.3) H* 03/21/24 05:14
eGFR 15.91 03/21/24 05:14
Glucose 155 mg/dl (70-99) H 03/21/24 05:14
Calcium 9.5 mg/dl (8.4-10.2) 03/21/24 05:14
Phosphorus 5.5 mg/dl (2.5-4.5) H 03/21/24 05:14
Albumin 3.3 g/dl (3.5-5.0) L 03/21/24 05:14
Physical Exam
-
Vital Signs:
Vital Signs
Temp Pulse Resp BP Pulse Ox
97.8 F 88 24 127/84 100
03/21/24 07:28 03/21/24 10:00 03/21/24 10:00 03/21/24 09:00 03/21/24 10:00
Cardiovascular:: Regular rate and rhythm
Respiratory:: Bilateral: Coarse
Lung Excursion:: Normal
Abdomen:: Nontender and Soft
Bowel Sounds:: Normal
Extremity Edema:: None: Bilateral:
Randhawa Catheter: No
--- NOTE | 2024-03-21 12:27 | PTCARENOTE ---
OOB chair transfer 2 people assist. pt AAO x3 Ativan po administered. chair alarm activated, med seater in place for pt's safety. pt clear by ST for puree diet with thin liquid. All meds adm po whole with apple sauce. At this time pt in a chair,
call luevano within reach
[2024-03-21 12:30] LABS: Glucose - Point of Care 146 mg/dl (70-99)
--- NOTE | 2024-03-21 13:07 | PTOTSP ---
SPEECH THERAPY SWALLOW THERAPY FOLLOW UP NOTE:
Patient exhibits clinical signs of oropharyngeal dysphagia, improving from previous sessions, and likely acutely related to complicated admission including 5 day intubation and cardiac arrest. Patient exhibiting no signs or symptoms of aspiration at
this time. No significant pre-disposing dysphagia risk factors. WBC WNL. Mental status improved. Recommend initiating conservative oral diet of IDDSI Level 4 Puree and thin liquids. Meds whole in puree. Aspiration precautions in place includin:1
assist/100% supervision; Only feed when awake/alert; Upright positioning; Small single sips/bites; Slow rate of intake; Monitor closely for signs of aspiration. Should pt exhibit signs of aspiration or a decline in mental or respiratory status, d/c
oral diet and make NPO until ST re-assessment. ST to follow, assess diet tolerance and modify as appropriate, monitor CXR and labs, provide continued education and diagnostic swallow therapy as appropriate, and determine indication for VFSS.
RECOMMEND:
1) IDDSI Level 4 Puree and thin liquids
2) Meds whole in puree
3) Aspiration precautions in place includin:1 assist/100% supervision; Only feed when awake/alert; Upright positioning; Small single sips/bites; Slow rate of intake; Monitor closely for signs of aspiration. Should pt exhibit signs of aspiration
or a decline in mental or respiratory status, d/c oral diet and make NPO until ST re-assessment
4) ST to follow
[2024-03-21] MEDS: VENTOLIN NEBULES 2.5 MG INH (13:26)
[2024-03-21 16:52] LABS: Glucose - Point of Care 228 mg/dl (70-99)
[2024-03-21] MEDS: NOVOLOG FLEXPEN-LOW RESISTANCE 2 UNITS SC (16:57)
[2024-03-21] MEDS: TYLENOL ORAL SOLUTION 650 MG TUBE ×2 (17:01→21:47)
--- NOTE | 2024-03-21 17:08 | PTCARENOTE ---
pt OOB chair for 4 hrs. Transfer in from chair to bed x 2 people assist pt require rolling walker call [facility]
--- NOTE | 2024-03-21 22:30 | TRANSFER ---
Report given to Lupe Martinez RN. Pt transferred via bed w/ chart and personal belongings. Pt's med sitter monitor also brought to room 420-01. Med sitter phone given to Lupe ESPINOSA.
--- NOTE | 2024-03-21 23:00 | PTCARENOTE ---
Pt transferred from ICU. Pt VSS, able to make needs known. Pt oriented to unit, call luevano within reach, bed in lowest position.
[2024-03-21 23:08] LABS: Glucose - Point of Care 285 mg/dl (70-99)
[2024-03-21] MEDS: TORADOL 10 MG IV (23:51)
[2024-03-22] VITALS (7 sets, daily range): BP systolic 105–190; BP diastolic 82–124
[2024-03-22] MEDS: NOVOLOG FLEXPEN SC ×2 (01:09→17:19)
--- NOTE | 2024-03-22 02:05 | PTCARENOTE ---
Pt in 08/12 pain. Tylenol ordered. Pt states 'Tylenol does not help, I need Dilaudid or morphine'. Adriana MOORE notified, One time toradol order given. Pt states he wants to talk to a doctor about his pain. Pt educated on the reasons of his
PRN orders.
[2024-03-22] MEDS: ATIVAN 0.5 MG PO ×4 (04:24→22:59)
[2024-03-22] MEDS: TYLENOL ORAL SOLUTION 650 MG PO ×3 (04:24→13:14)
[2024-03-22 06:33] LABS: ALT (SGPT) 36 U/L (0-50); AST (SGOT) 24 U/L (17-59); Albumin 3.1 g/dl (3.5-5.0); Alkaline Phosphatase 128 U/L (38-126); Blood Urea Nitrogen 43 mg/dl (9-20); Calcium 9.5 mg/dl (8.4-10.2); Carbon Dioxide 20 mmol/L (22-30); Chloride 99 mmol/L (98-107); Estimated Creatinine Clearance 15 ml/min; Glucose 458 mg/dl (70-99); Magnesium 2.3 mg/dl (1.6-2.3); Phosphorus 7.1 mg/dl (2.5-4.5); Potassium 5.2 mmol/L (3.5-5.1); Sodium 134 mmol/L (135-145); Total Bilirubin 0.8 mg/dl (0.2-1.3); Total Protein 5.7 g/dl (6.3-8.2)
[2024-03-22 08:04] LABS: Glucose - Point of Care 478 mg/dl (70-99)
[2024-03-22 08:10] LABS: Glucose - Point of Care 478 mg/dl (70-99)
--- NOTE | 2024-03-22 08:30 | PN.DE.MGMTRT ---
Insulin Management
- -
03/22/2024: Diabetes Management F/U:
33 year old male well known to me from recurrent hospital admissions.
PMH: ESRD on HD (MWF), T1DM for 18 years. He was using a Medtronic 770 pump with NovoLog insulin and Guardian sensor.
Pt presented to ED on 03/10-03/11 c/o weakness, abd pain, N/V due DKA and significant volume overload after missing HD. He was stabilized and signed out AMA.
He returned to the ER on 03/13 c/o N/V, asking for IV narcotics and was found to be hypotensive, became bradycardic and went into PEA arrest.
Patient Awake, A/O x2-3, sitting up on bed,, eating lunch, offers no complaints, ab;e to discuss diabetes mgt.
Was started on a puree diet yesterday and is noted for Hyperglycemia, glucose has trended up to 488
Will adjust insulin doses. Give additional 6 units of Lantus now and increase his AM dose to 12 units.
Start NovoLog 10 units AC. Cont low corrective.
Pt dose not have his insulin pump in the hospital at this moment and his mental status is not back to baseline, so we are unable to resume pump at this time.
Diabetes plan of care discussed with pt's Nurse.
Diabetes History
- -
Type of Diabetes: 1
Pre-Admission Diabetes Regimen
03/22/24
04:50
Creatinine 6.3 H*
Insulin Pump Settings
IP Diabetes Regimen
03/21/24 03/21/24 03/21/24
12:13 16:40 22:57
Glucose
POC Glucose 146 H 228 H 285 H
03/22/24 03/22/24 03/22/24
04:50 07:59 07:59
Glucose 458 H*
POC Glucose 478 H* 478 H*
Meal type: Lunch
Amount consumed: 100%
Patient Education
[2024-03-22] MEDS: PROTONIX IV 40 MG IV (08:43)
[2024-03-22] MEDS: NSS (PRESERVATIVE FREE) 10 ML IV (08:43)
[2024-03-22] MEDS: THIAMINE INJECTION 100 MG IV ×2 (08:44→21:03)
[2024-03-22] MEDS: LANTUS 0.0599999999999999978 UNITS SC ×2 (08:44→11:40)
[2024-03-22] MEDS: HEPARIN 5000 UNITS SC (08:44)
[2024-03-22 08:45] LABS: Hematocrit 31.9 % (39.0-52.0); Hemoglobin 10.2 g/dL (13.0-18.0); Mean Corpuscular Hgb 30.7 pg (27.0-31.0); Mean Corpuscular Volume 96.1 fL (80.0-94.0); Mean Platelet Volume 11.7 fL (7.4-10.4); Platelet Count 223 10^3/uL (130-400); Red Blood Cell Count 3.32 10^6/uL (4.70-6.10); Red Cell Dist. Width 18.7 % (11.5-14.5); White Blood Cell Count 6.1 10^3/uL (4.8-10.8)
[2024-03-22 08:59] LABS: Blood Urea Nitrogen 44 mg/dl (9-20); Calcium 9.3 mg/dl (8.4-10.2); Carbon Dioxide 20 mmol/L (22-30); Chloride 99 mmol/L (98-107); Estimated Creatinine Clearance 15 ml/min; Glucose 488 mg/dl (70-99); Potassium 5.5 mmol/L (3.5-5.1); Sodium 133 mmol/L (135-145); eGFR 10.99
[2024-03-22] MEDS: NOVOLOG FLEXPEN 10 UNITS SC ×2 (09:37→13:14)
[2024-03-22] MEDS: LIDOCAINE 4% PATCH 1 PATCH TOPICAL (09:41)
[2024-03-22] MEDS: TESSALON PERLES 200 MG PO (09:41)
[2024-03-22] MEDS: ROBITUSSIN 200 MG PO ×4 (09:41→21:06)
--- NOTE | 2024-03-22 09:56 | WOUNDNOTE ---
R CALF (LOWER MEDIAL)
--- NOTE | 2024-03-22 09:57 | WOUNDNOTE ---
L KNEE (JUST DISTAL TO KNEE)
--- NOTE | 2024-03-22 09:58 | WOUNDNOTE ---
[facility] RN note: Patient seen briefly for HAPI report for back stage 2 pressure injury. He has a healing dermal linear adhesive skin tear suspect from previous defibrillator pad. He has dry abrasions on L distal knee, R medial lower calf and L dorsal
distal 4th toe. Skin on heels and sacrum intact. Patient is on a [employer] air bed and turns self slowly in bed. FRANCISCA Vasquez and staff cleaning him from loose stooling. Silicone border foam maintained on back. Care plan to be updated. Consult as
needed.
--- NOTE | 2024-03-22 11:27 | W.PN.HOSP.TC ---
Today's Communication/Plan
-
see note
Assessment / Plan
Assessment / Plan
Gen-awake, oriented to month and year but not day of the week
HEENT-NC, AT, anicteric
Neck-supple
CV-reg, no M, +S1/S2,
Lungs-clear B/L, Nasal cannula noted
Abd-soft, NT, ND
Ext-no edema
Musculoskeletal-no cyanosis, clubbing. LUE AVF.
Skin-warm and dry.
Ongoing hypoactive delirium -likely due to critical illness. Unclear if he suffered any degree of hypoxic encephalopathy during cardiac arrest. Seems to have improved.
Cardiac arrest - likely secondary to severe metabolic acidosis/noncompliance with hemodialysis. Small pericardial effusion noted on most recent echocardiogram, along with moderate TR, severe pulmonary hypertension. LVEF 60 to 65%. Reduced RV
systolic function.
Acute hypoxic respiratory failure - status post intubation mechanical ventilation. Extubated 03/17. Oxygenation stable on 2 L nasal cannula, 100%.
Last chest x-ray was March 19, large bilateral lower lobe airspace consolidations, moderate right small left pleural effusions. Acute nondisplaced right fourth lateral rib fracture.
Dysphagia post extubation-TF stopped. IDDS4. Speech recs and hopefully can advanced diet further.
Hypokalemia -resolved.
Hyperphosphatemia -likely precipitated by ESRD. Monitor for now.
Shock -differential diagnosis includes severe volume depletion, cardiogenic, septic, etc. weaned off vasopressors. Hemodynamically stable.
Fevers noted on March 14. Blood cultures negative so far. Sputum culture notes Hafnei alvei, MRSA. Suspect colonization as he is clinically improved. White blood cell count has been normal so far. Monitor off antibiotics.
DM1 with DKA -reportedly using insulin pump at home, doubt compliance. DKA resolved. Diabetes TRANSPORTATION ASSISTANT following. Glucose 488 this morning. Increase Lantus 12 units daily, NovoLog 10 units AC . low resistance NovoLog scale.
ESRD - on hemodialysis M, W, F.
Severe metabolic acidosis - secondary to missed dialysis and diabetic ketoacidosis.
-Patient with history of missing hemodialysis sessions.
Atrial fibrillation -with rapid ventricular response. Back in sinus rhythm. Not long-term anticoagulation candidate given known noncompliance. Cardiology noted.
Severe alcohol use disorder
-Per patient mother, patient drank a whole bottle of whiskey on 03/12/2024
-Psych eval-pt not interested in D&A rehab.
Chronic abdominal pain associated with nausea and vomiting likely secondary to gastroparesis
Acute nonischemic myocardial injury -troponin trending down. Etiology likely due to cardiac arrest, CPR, atrial fibrillation, ESRD, etc.
Recurrent right pleural effusion
-Chest x-ray with small to moderate pleural effusion with adjacent atelectasis versus pneumonia
Chronic anemia of renal disease
-Hemoglobin stable
Essential hypertension -hypertensive urgency. restart coreg home dose and norvasc.
Severe pulmonary hypertension
Reported history of pulmonary embolism -date unknown. Records not available. Venous Doppler ultrasound lower extremities negative for DVT. Last CT chest from July 2023 negative for pulmonary embolism.
Anxiety/depression
-Hold meds till able to tolerate p.o. intake
Tobacco dependence/severe drug-seeking behavior
-Smokes half pack of cigarettes per day
Significant past medical history of noncompliance with medications and hemodialysis
Full code
Dispo - HD today. Wean o2. Restart bp meds. Nephro recs for lasix. speech recs. adjust insulin further.
Anticipated Discharge: > 48 hours
Subjective/Interval History
-
Date of Service: March 22, 2024
remains on oxygen
seen on HD
BP elevated
states of cough
Objective Data
-
Labs:
Laboratory Results
03/22/24 03/22/24 03/22/24
04:50 08:30 08:33
WBC 6.1
Hgb 10.2 L
Hct 31.9 L
Plt Count 223
Sodium 134 L 133 L
Potassium 5.2 H 5.5 H
Chloride 99 99
Carbon Dioxide 20 L 20 L
BUN 43 H 44 H
Creatinine 6.3 H* 6.4 H*
Glucose 458 H* 488 H*
Calcium 9.5 9.3
Total Bilirubin 0.8
AST 24
ALT 36
Alkaline Phosphatase 128 H
Vital Signs:
Vital Signs
Temp Pulse Resp BP Pulse Ox
97.3 F 92 8 190/87 100
03/22/24 11:15 03/22/24 11:15 03/22/24 11:15 03/22/24 11:15 03/22/24 11:15
I&O
03/21/24 03/22/24 03/23/24
06:59 06:59 06:59
Intake Total 120 / 120
Balance 120 / 120
Data Reviewed
-
Total Time Spent with Patient (in minutes): 55
[2024-03-22] MEDS: FOLVITE 1 MG PO (11:39)
[2024-03-22] MEDS: COREG 6.25 MG PO (11:40)
[2024-03-22 11:51] LABS: Glucose - Point of Care 184 mg/dl (70-99)
--- NOTE | 2024-03-22 12:35 | W.PN.NEPH.HD ---
Assessment
-
Seen on dialysis, no complaints, sleeping. Vital signs stable, access okay
Progress Note - Hemodialysis
-
Date of Service: March 22, 2024
Duration: 30 minutes and 3 hours
Potassium Bath: 2
Calcium Bath: 2.5
Opti-Dialyzer: 160
Ultrafiltration: Other (3 kg)
Blood Flow: 400
Dialysate Flow: 600
Heparin: 0
EPO: 0
--- NOTE | 2024-03-22 14:34 | CM ---
[facility] in [facility].
Patient receptive to information for inpatient and outpatient treatment.
José Miguel will send referral to [facility]. May be difficult to place due to HD.
Spoke with patient and if accepted he will ask hios parents if they can transport for HD.
Patient s/p HD today.
Plan: possible inpatient substance abuse rehab vs home with outpatient services.
[2024-03-22] MEDS: ULTRAM 25 MG PO ×2 (14:45→22:59)
[2024-03-22] MEDS: NORVASC 10 MG PO (15:32)
[2024-03-22] MEDS: HEPARIN SC ×2 (16:41→22:17)
[2024-03-22 16:49] LABS: Glucose - Point of Care 61 mg/dl (70-99)
[2024-03-22] MEDS: NOVOLOG FLEXPEN-LOW RESISTANCE SC (16:51)
[2024-03-22] MEDS: DEXTROSE 50% SYRINGE 12.5 GRAMS IV (17:00)
[2024-03-22 17:54] LABS: Glucose - Point of Care 150 mg/dl (70-99)
[2024-03-22] MEDS: NOVOLOG FLEXPEN 5 UNITS SC (18:06)
[2024-03-22 20:32] LABS: Glucose - Point of Care 101 mg/dl (70-99)
[2024-03-22] MEDS: COREG 25 MG PO (21:13)
[2024-03-22] MEDS: TRILEPTAL 150 MG PO (21:16)
[2024-03-22 22:09] LABS: Glucose - Point of Care 93 mg/dl (70-99)
[2024-03-23 03:07] LABS: Glucose - Point of Care 113 mg/dl (70-99)
[2024-03-23 03:29] VITALS: BP 111/59
[2024-03-23 05:36] VITALS: BMI 21.5
[2024-03-23 06:29] LABS: ALT (SGPT) 35 U/L (0-50); AST (SGOT) 29 U/L (17-59); Alkaline Phosphatase 104 U/L (38-126); Blood Urea Nitrogen 30 mg/dl (9-20); Calcium 8.6 mg/dl (8.4-10.2); Carbon Dioxide 26 mmol/L (22-30); Chloride 102 mmol/L (98-107); Estimated Creatinine Clearance 24 ml/min; Glucose 136 mg/dl (70-99); Phosphorus 4.5 mg/dl (2.5-4.5); Potassium 4.1 mmol/L (3.5-5.1); Sodium 137 mmol/L (135-145); Total Bilirubin 0.7 mg/dl (0.2-1.3); Total Protein 5.8 g/dl (6.3-8.2); eGFR 20.54
[2024-03-23 07:00] VITALS: BP 124/88
--- NOTE | 2024-03-23 07:38 | PN.DE.MGMTRT ---
Insulin Management
- -
03/23/2024: Diabetes Management Follow up:
33 year old male well known to me from recurrent hospital admissions.
PMH: ESRD on HD (MWF), T1DM for 18 years. He was using a Medtronic 770 pump with NovoLog insulin and Guardian sensor.
Pt presented to ED on 03/10-03/11 c/o weakness, abd pain, N/V due DKA and significant volume overload after missing HD. He was stabilized and signed out AMA.
He returned to the ER on 03/13 c/o N/V, asking for IV narcotics and was found to be hypotensive, became bradycardic and went into PEA arrest.
Patient Awakens easily but drift back to sleep quickly.
Lantus dose increased to 12 units in AM yesterday with novolog 10 units AC with low corrective insulin. Glucose improved 93 @ hs, pre meal 150 to 184. Fasting glucose this AM 113 venous. Will continue lantus 12 in AM with novolog 10 units AC.
Pt dose not have his insulin pump in the hospital at this moment; his mental status is not back to baseline, will not to resume pump at this time.
Diabetes plan of care discussed with pt's Nurse.
Diabetes History
- -
Type of Diabetes: 1
Pre-Admission Diabetes Regimen
03/22/24 03/23/24
08:30 05:04
Creatinine 6.4 H* 3.8 H
Insulin Pump Settings
IP Diabetes Regimen
03/22/24 03/22/24 03/22/24
07:59 07:59 08:30
Glucose 488 H*
POC Glucose 478 H* 478 H*
03/22/24 03/22/24 03/22/24
11:50 16:48 17:53
Glucose
POC Glucose 184 H 61 L 150 H
03/22/24 03/22/24 03/23/24
20:24 22:06 03:01
Glucose
POC Glucose 101 H 93 113 H
03/23/24
05:04
Glucose 136 H
POC Glucose
Meal type: Breakfast
Amount consumed: 100%
Patient Education
[2024-03-23 07:43] LABS: Glucose - Point of Care 167 mg/dl (70-99)
[2024-03-23] MEDS: ATIVAN 0.5 MG PO ×3 (09:19→22:13)
[2024-03-23] MEDS: ULTRAM 25 MG PO ×2 (09:20→21:32)
[2024-03-23] MEDS: HEPARIN SC ×3 (09:30→21:34)
[2024-03-23] MEDS: NOVOLOG FLEXPEN-LOW RESISTANCE 1 UNITS SC ×2 (09:32→18:40)
[2024-03-23] MEDS: NOVOLOG FLEXPEN 10 UNITS SC (09:33)
[2024-03-23] MEDS: NSS (PRESERVATIVE FREE) 10 ML IV (09:34)
[2024-03-23] MEDS: PROTONIX IV 40 MG IV (09:34)
[2024-03-23] MEDS: ROBITUSSIN 200 MG PO ×2 (09:36→21:32)
[2024-03-23] MEDS: COREG 25 MG PO ×2 (09:36→19:40)
[2024-03-23] MEDS: FLUSH (NSS) 2 FLUSH IV (09:36)
[2024-03-23] MEDS: NORVASC 10 MG PO (09:37)
[2024-03-23] MEDS: FOLVITE 1 MG PO (09:37)
[2024-03-23] MEDS: THIAMINE INJECTION 100 MG IV (09:37)
[2024-03-23] MEDS: LIDOCAINE 4% PATCH 1 PATCH TOPICAL (09:41)
[2024-03-23] MEDS: LANTUS 0.119999999999999996 UNITS SC (09:53)
--- NOTE | 2024-03-23 10:46 | W.PN.UPDATE ---
Update Note
Progress Note Update
Patient seen at bedside, chart reviewed, discussed with staff. Patient was sitting up, eating breakfast. Minimal engagement in conversation. Appears to be complying with medical treatment. Denies any depressive or anxiety symptoms.
ETOH use disorder, severe - Patient declines rehab or OP ETOH tx. No longer at risk for withdrawal. Psych will sign off. Call or reconsult with any new or immediate concerns.
[2024-03-23 11:00] VITALS: BP 124/71
[2024-03-23 11:51] LABS: Glucose - Point of Care 101 mg/dl (70-99)
[2024-03-23] MEDS: NOVOLOG FLEXPEN-LOW RESISTANCE SC (12:03)
--- NOTE | 2024-03-23 12:27 | W.PN.NEPH.PH ---
Today's Communication / Plan
-
HD tomorrow
Assessment/Plan
-
Impression:
Status post PEA/Asystole
PAF : briefly after code on 03/13/24
Metabolic acidemia
Intubation following code
Chronic noncompliance with dialysis
ESRD MWF ([facility]),
left UE AVF
DKA hx/metabolic acidosis
Hyperkalemia
Acute Volume Overload and Hyperkalemia secondary to Missed HD Treatments
Chronic Abdominal Pain / Gastroparesis
Pulmonary hypertension
Polysubstance abuse
Anxiety
Anemia
Right pleural effusion--s/p R throa for pleural effusion with 1.8L transudate 02/17/24
Plan:
A/w DKA status postcardiac arrest witnessed in the emergency
Diabetes management per primary team
HD tomorrow
-
-
Date of Service: March 23, 2024
CC / HPI / ROS
-
Chief Complaint:
End-stage renal disease
History of Present Illness:
ESRD Friday schedule
Hemodynamically stable
tolerated HD yesterday
Review of Systems:
no fever
no SOB
Labs
-
Labs:
WBC 6.1 10^3/uL (4.8-10.8) 03/22/24 08:33
RBC 3.32 10^6/uL (4.70-6.10) L 03/22/24 08:33
Hgb 10.2 g/dL (13.0-18.0) L 03/22/24 08:33
Hct 31.9 % (39.0-52.0) L 03/22/24 08:33
Plt Count 223 10^3/uL (130-400) 03/22/24 08:33
Sodium 137 mmol/L (135-145) 03/23/24 05:04
Potassium 4.1 mmol/L (3.5-5.1) D 03/23/24 05:04
Chloride 102 mmol/L (98-107) 03/23/24 05:04
Carbon Dioxide 26 mmol/L (22-30) 03/23/24 05:04
BUN 30 mg/dl (9-20) H 03/23/24 05:04
Creatinine 3.8 mg/dL (0.7-1.3) H 03/23/24 05:04
eGFR 20.54 03/23/24 05:04
Glucose 136 mg/dl (70-99) H 03/23/24 05:04
Calcium 8.6 mg/dl (8.4-10.2) 03/23/24 05:04
Phosphorus 4.5 mg/dl (2.5-4.5) 03/23/24 05:04
Albumin 3.0 g/dl (3.5-5.0) L 03/23/24 05:04
Physical Exam
-
Vital Signs:
Vital Signs
Temp Pulse Resp BP Pulse Ox
98.1 F 87 20 124/71 97
03/23/24 11:00 03/23/24 11:00 03/23/24 11:00 03/23/24 11:00 03/23/24 11:00
Cardiovascular:: Regular rate and rhythm
Respiratory:: Bilateral: Coarse
Lung Excursion:: Normal
Abdomen:: Nontender and Soft
Bowel Sounds:: Normal
Extremity Edema:: None: Bilateral:
--- NOTE | 2024-03-23 12:39 | W.PN.HOSP.TC ---
Today's Communication/Plan
-
see note
Assessment / Plan
Assessment / Plan
Gen-awake, oriented to month and year
HEENT-NC, AT, anicteric
Neck-supple
CV-reg, no M, +S1/S2,
Lungs-clear B/L, Nasal cannula noted
Abd-soft, NT, ND
Ext-no edema
Musculoskeletal-no cyanosis, clubbing. LUE AVF.
Skin-warm and dry.
Ongoing hypoactive delirium -likely due to critical illness. Unclear if he suffered any degree of hypoxic encephalopathy during cardiac arrest. Seems to have improved. No brain imaging so far and check CT head. Mentation seems to be improving.
Cardiac arrest - likely secondary to severe metabolic acidosis/noncompliance with hemodialysis. Small pericardial effusion noted on most recent echocardiogram, along with moderate TR, severe pulmonary hypertension. LVEF 60 to 65%. Reduced RV
systolic function.
Acute hypoxic respiratory failure - status post intubation mechanical ventilation. Extubated 03/17. Oxygenation stable and patient requesting nasal cannula for comfort.
Last chest x-ray was March 19, large bilateral lower lobe airspace consolidations, moderate right small left pleural effusions. Acute nondisplaced right fourth lateral rib fracture.
Dysphagia post extubation-TF stopped. IDDS4. Speech recs and hopefully can advanced diet further.
Hypokalemia -resolved.
Hyperphosphatemia -likely precipitated by ESRD. Monitor for now.
Shock -differential diagnosis includes severe volume depletion, cardiogenic, septic, etc. weaned off vasopressors. Hemodynamically stable.
Fevers noted on March 14. Blood cultures negative so far. Sputum culture notes Hafnei alvei, MRSA. Suspect colonization as he is clinically improved. White blood cell count has been normal so far. Monitor off antibiotics.
DM1 with DKA -reportedly using insulin pump at home, doubt compliance. DKA resolved. Diabetes RISK COMPLIANCE ANALYST following. . Increased Lantus 12 units daily, NovoLog 10 units AC . low resistance NovoLog scale.
ESRD - on hemodialysis M, W, F.
Severe metabolic acidosis - secondary to missed dialysis and diabetic ketoacidosis.
-Patient with history of missing hemodialysis sessions.
Atrial fibrillation -with rapid ventricular response. Back in sinus rhythm. Not long-term anticoagulation candidate given known noncompliance. Cardiology noted.
Severe alcohol use disorder
-Per patient mother, patient drank a whole bottle of whiskey on 03/12/2024
-Psych eval-pt not interested in D&A rehab.
Chronic abdominal pain associated with nausea and vomiting likely secondary to gastroparesis
Acute nonischemic myocardial injury -troponin trending down. Etiology likely due to cardiac arrest, CPR, atrial fibrillation, ESRD, etc.
Recurrent right pleural effusion
-Chest x-ray with small to moderate pleural effusion with adjacent atelectasis versus pneumonia
Chronic anemia of renal disease
-Hemoglobin stable
Essential hypertension -hypertensive urgency. restart coreg home dose and norvasc. BP improved
Severe pulmonary hypertension
Reported history of pulmonary embolism -date unknown. Records not available. Venous Doppler ultrasound lower extremities negative for DVT. Last CT chest from July 2023 negative for pulmonary embolism.
Anxiety/depression-psych signed off. Cont oxcarbazepine
Tobacco dependence/severe drug-seeking behavior
-Smokes half pack of cigarettes per day
Significant past medical history of noncompliance with medications and hemodialysis
Full code
PT recs SNF. Patient not interested in detox rehab.
Dispo -Speech eval. PT eval. OOB. SNF. CT head.
Anticipated Discharge: > 48 hours
Subjective/Interval History
-
Date of Service: March 23, 2024
Patient is more awake alert and oriented today
Stated he wants to try to eat regular food consistency
States able to get out of bed and ambulate
Objective Data
-
Labs:
Laboratory Results
03/23/24
05:04
Sodium 137
Potassium 4.1 D
Chloride 102
Carbon Dioxide 26
BUN 30 H
Creatinine 3.8 H
Glucose 136 H
Calcium 8.6
Total Bilirubin 0.7
AST 29
ALT 35
Alkaline Phosphatase 104
Vital Signs:
Vital Signs
Temp Pulse Resp BP Pulse Ox
98.1 F 87 20 124/71 97
03/23/24 11:00 03/23/24 11:00 03/23/24 11:00 03/23/24 11:00 03/23/24 11:00
I&O
03/22/24 03/23/24 03/24/24
06:59 06:59 06:59
Intake Total 120 / 120 240 / 240
Balance 120 / 120 240 / 240
Data Reviewed
-
Total Time Spent with Patient (in minutes): 55
[2024-03-23 12:49] LABS: Glucose - Point of Care 36 mg/dl (70-99)
[2024-03-23 13:01] LABS: Glucose - Point of Care 32 mg/dl (70-99)
[2024-03-23 13:15] LABS: Glucose - Point of Care 30 mg/dl (70-99)
[2024-03-23 13:21] LABS: Glucose - Point of Care 78 mg/dl (70-99)
[2024-03-23] MEDS: DEXTROSE 50% SYRINGE 12.5 GRAMS IV (13:30)
[2024-03-23] MEDS: NOVOLOG FLEXPEN SC ×2 (13:30→18:39)
[2024-03-23 13:37] LABS: Glucose - Point of Care 124 mg/dl (70-99)
[2024-03-23] MEDS: ROBITUSSIN PO ×3 (14:11→18:39)
[2024-03-23 15:00] VITALS: BP 139/80
--- NOTE | 2024-03-23 15:52 | CM ---
Addendum entered by Cherise Dallas 03/25/24 14:28:
Await PMR consultation, Toni (P) evaluation.
Referrals sent to [facility] if patient does not get approved for acute. \\
Original Note:
Patient declining inpatient SA rehab.
PT recommending acute rehab, PMR consult (P).
Spoke with patient and his mother Cherise torres.
Discussed acute and skilled rehab and reviewed options for therapy.
Patient is on HD ([facility]).
Plan: await PMR consult re level of rehab.
will place referrals to [facility] [place].
[2024-03-23 15:57] LABS: Glucose - Point of Care 165 mg/dl (70-99)
--- NOTE | 2024-03-23 15:57 | PTOTSP ---
Speech Therapy Follow-Up Note:
Patient exhibits clinical signs of oropharyngeal dysphagia with improved tolerance of PO trials compared to prior ST sessions. Patient exhibited no signs or symptoms of aspiration with thins , puree, or softened solids. Increased difficulty
observed with regular solids at beside.
Recommend:
1) Advance to IDDSI level 6 solids, thin liquids
2) Meds whole in puree
3) Aspiration precautions in place includin% supervision with meals; PO intake ONLY when awake/alert; Upright positioning; Small single sips/bites; Slow rate of intake; Monitor closely for signs of aspiration. Should pt exhibit signs of
aspiration or a decline in mental or respiratory status, d/c oral diet and make NPO until ST re-assessment.
ST to continue to follow. Discussed with pt and RN
[2024-03-23 17:50] LABS: Glucose - Point of Care 199 mg/dl (70-99)
[2024-03-23] MEDS: VITAMIN B1 100 MG PO (19:40)
[2024-03-23 20:12] VITALS: BP 142/71
[2024-03-23] MEDS: TRILEPTAL 150 MG PO (21:32)
[2024-03-23 21:33] LABS: Glucose - Point of Care 228 mg/dl (70-99)
[2024-03-23 23:00] VITALS: BP 131/78
[2024-03-24] VITALS (7 sets, daily range): BP systolic 124–159; BP diastolic 73–90; BMI 22.0
[2024-03-24 03:12] LABS: Glucose - Point of Care 246 mg/dl (70-99)
[2024-03-24] MEDS: TYLENOL ORAL SOLUTION 650 MG PO (03:17)
--- NOTE | 2024-03-24 07:38 | PN.DE.MGMTRT ---
Insulin Management
- -
03/24/2024: Diabetes Management Follow up:
33 year old male well known to me from recurrent hospital admissions.
PMH: ESRD on HD (MWF), T1DM for 18 years. He was using a Medtronic 770 pump with NovoLog insulin and Guardian sensor.
Pt presented to ED on 03/10-03/11 c/o weakness, abd pain, N/V due DKA and significant volume overload after missing HD. He was stabilized and signed out AMA.
He returned to the ER on 03/13 c/o N/V, asking for IV narcotics and was found to be hypotensive, became bradycardic and went into PEA arrest.
Patient Awakens easily but drift back to sleep quickly.
Lantus dose increased to 12 units in AM 03/23 with novolog 10 units AC with low corrective insulin. Glucose improved 93 @ hs, pre meal 150 to 184. Fasting glucose 03/23 113 venous. Pre lunch glucose 30. Lantus dose reduced to 6 units in AM with
novolog 5 units AC.
Per pump settings 24 hour basal insulin 8.7 units when using pump, carb ratio 1:10. Will increase to 8 units lantus in AM (first dose tomorrow) with novolog 5 units ac. Please hold 5 units standing dose if patient does not eat meal.
Pt does not have his insulin pump in the hospital at this moment; his mental status is not back to baseline, will not to resume pump at this time.
Diabetes plan of care discussed with pt's Nurse.
Diabetes History
- -
Type of Diabetes: 1
Pre-Admission Diabetes Regimen
03/24/24
04:46
Creatinine Cancelled
Insulin Pump Settings
IP Diabetes Regimen
03/23/24 03/23/24 03/23/24
07:41 11:49 12:48
Glucose
POC Glucose 167 H 101 H 36 L*
03/23/24 03/23/24 03/23/24
12:59 13:14 13:20
Glucose
POC Glucose 32 L* 30 L* 78
03/23/24 03/23/24 03/23/24
13:36 15:55 17:49
Glucose
POC Glucose 124 H 165 H 199 H
03/23/24 03/24/24 03/24/24
21:24 03:05 04:46
Glucose Cancelled
POC Glucose 228 H 246 H
Meal type: Lunch
Meal type: Breakfast
Amount consumed: 100%
Amount consumed: 100%
Patient Education
[2024-03-24 07:50] LABS: Glucose - Point of Care 275 mg/dl (70-99)
[2024-03-24] MEDS: LIDOCAINE 4% PATCH 1 PATCH TOPICAL (08:39)
[2024-03-24] MEDS: FOLVITE 1 MG PO (08:40)
[2024-03-24] MEDS: VITAMIN B1 100 MG PO ×2 (08:40→22:27)
[2024-03-24] MEDS: COREG 25 MG PO ×2 (08:40→22:41)
[2024-03-24] MEDS: PROTONIX 40 MG PO (08:42)
[2024-03-24] MEDS: NORVASC 10 MG PO (08:43)
[2024-03-24] MEDS: NOVOLOG FLEXPEN 5 UNITS SC ×3 (08:45→17:35)
[2024-03-24] MEDS: NOVOLOG FLEXPEN-LOW RESISTANCE 3 UNITS SC ×2 (08:45→12:54)
[2024-03-24] MEDS: LANTUS 0.0599999999999999978 UNITS SC (08:48)
[2024-03-24] MEDS: HEPARIN SC ×2 (08:53→17:33)
[2024-03-24] MEDS: ROBITUSSIN PO ×3 (08:54→17:36)
[2024-03-24] MEDS: ATIVAN 0.5 MG PO ×3 (09:03→22:34)
[2024-03-24] MEDS: ULTRAM 25 MG PO ×2 (09:04→22:34)
[2024-03-24 09:05] LABS: Blood Urea Nitrogen 43 mg/dl (9-20); Calcium 9.2 mg/dl (8.4-10.2); Carbon Dioxide 21 mmol/L (22-30); Chloride 96 mmol/L (98-107); Estimated Creatinine Clearance 17 ml/min; Glucose 266 mg/dl (70-99); Magnesium 2.3 mg/dl (1.6-2.3); Phosphorus 6.1 mg/dl (2.5-4.5); Sodium 132 mmol/L (135-145); eGFR 13.47
--- NOTE | 2024-03-24 10:59 | W.PN.HOSP.TC ---
Today's Communication/Plan
-
HD per nephrology
Await acute rehab eval
Continue with modified diet
Assessment / Plan
Assessment / Plan
Gen-awake, oriented to month and year
HEENT-NC, AT, anicteric
Neck-supple
CV-reg, no M, +S1/S2,
Lungs-clear B/L, Nasal cannula noted
Abd-soft, NT, ND
Ext-no edema
Musculoskeletal-no cyanosis, clubbing. LUE AVF.
Skin-warm and dry.
Ongoing hypoactive delirium -likely due to critical illness. Unclear if he suffered any degree of hypoxic encephalopathy during cardiac arrest. Mentation seems to have significantly improved. CT head negative for acute pathology.
Cardiac arrest - likely secondary to severe metabolic acidosis/noncompliance with hemodialysis. Small pericardial effusion noted on most recent echocardiogram, along with moderate TR, severe pulmonary hypertension. LVEF 60 to 65%. Reduced RV
systolic function.
Acute hypoxic respiratory failure - status post intubation mechanical ventilation. Extubated 03/17. Oxygenation stable and patient requesting nasal cannula for comfort.
Last chest x-ray was March 19, large bilateral lower lobe airspace consolidations, moderate right small left pleural effusions. Acute nondisplaced right fourth lateral rib fracture.
Dysphagia post extubation-TF stopped. IDDS6 with thin liquids. Speech recs and hopefully can advanced diet further.
Hypokalemia -resolved.
Hyperphosphatemia -likely precipitated by ESRD. Monitor for now. Unclear if patient would be compliant with Phos binders outpatient.
Shock -differential diagnosis includes severe volume depletion, cardiogenic, septic, etc. weaned off vasopressors. Hemodynamically stable.
Fevers noted on March 14. Blood cultures negative so far. Sputum culture notes Hafnei alvei, MRSA. Suspect colonization as he is clinically improved. White blood cell count has been normal so far. Monitor off antibiotics.
DM1 with DKA -reportedly using insulin pump at home, doubt compliance. DKA resolved. Diabetes TIMBER TRIMMER following. Episodes of hypoglycemia yesterday and Lantus decreased to 6 units with NovoLog at 5 units AC. Iss. POC stabilized and now elevated.
ESRD - on hemodialysis M, W, F.
Severe metabolic acidosis - secondary to missed dialysis and diabetic ketoacidosis.
-Patient with history of missing hemodialysis sessions.
Atrial fibrillation -with rapid ventricular response. Back in sinus rhythm. Not long-term anticoagulation candidate given known noncompliance. Cardiology noted.
Severe alcohol use disorder
-Per patient mother, patient drank a whole bottle of whiskey on 03/12/2024
-Psych eval-pt not interested in D&A rehab.
Chronic abdominal pain associated with nausea and vomiting likely secondary to gastroparesis
Acute nonischemic myocardial injury -troponin trending down. Etiology likely due to cardiac arrest, CPR, atrial fibrillation, ESRD, etc.
Recurrent right pleural effusion
-Chest x-ray with small to moderate pleural effusion with adjacent atelectasis versus pneumonia
Chronic anemia of renal disease
-Hemoglobin stable
Essential hypertension -hypertensive urgency. restart coreg home dose and norvasc. BP improved
Severe pulmonary hypertension
Reported history of pulmonary embolism -date unknown. Records not available. Venous Doppler ultrasound lower extremities negative for DVT. Last CT chest from July 2023 negative for pulmonary embolism.
Anxiety/depression-psych signed off. Cont oxcarbazepine
Tobacco dependence/severe drug-seeking behavior
-Smokes half pack of cigarettes per day
Significant past medical history of noncompliance with medications and hemodialysis
Full code
PT/OT-Acute Rehab. PMR consulted.
Dispo - PMR eval.
Anticipated Discharge: Within 24 hours
Subjective/Interval History
-
Date of Service: March 24, 2024
feeling better
Objective Data
-
Labs:
Laboratory Results
03/24/24 03/24/24
04:46 07:32
Sodium Cancelled 132 L
Potassium Cancelled 5.0
Chloride Cancelled 96 L
Carbon Dioxide Cancelled 21 L
BUN Cancelled 43 H
Creatinine Cancelled 5.4 H*
Glucose Cancelled 266 H
Calcium Cancelled 9.2
Vital Signs:
Vital Signs
Temp Pulse Resp BP Pulse Ox
97.5 F 85 14 138/81 88
03/24/24 07:55 03/24/24 08:40 03/24/24 07:55 03/24/24 08:40 03/24/24 07:55
I&O
03/23/24 03/24/24 03/25/24
06:59 06:59 06:59
Intake Total 240 / 240 960 / 960
Balance 240 / 240 960 / 960
Data Reviewed
-
Total Time Spent with Patient (in minutes): 55
[2024-03-24 12:17] LABS: Glucose - Point of Care 297 mg/dl (70-99)
--- NOTE | 2024-03-24 15:36 | W.PN.NEPH.HD ---
Assessment
-
- patient offered extra UF (refused)
Progress Note - Hemodialysis
-
Date of Service: March 24, 2024
Duration: 30 minutes and 3 hours
Potassium Bath: 3
Calcium Bath: 2.5
Opti-Dialyzer: 160
Ultrafiltration: Other
Blood Flow: 400
Dialysate Flow: 600
[2024-03-24 16:46] LABS: Glucose - Point of Care 109 mg/dl (70-99)
[2024-03-24] MEDS: NOVOLOG FLEXPEN-LOW RESISTANCE SC (17:36)
[2024-03-24 21:17] LABS: Glucose - Point of Care 126 mg/dl (70-99)
[2024-03-24] MEDS: TRILEPTAL 150 MG PO (22:34)
[2024-03-24] MEDS: ROBITUSSIN 200 MG PO (22:45)
[2024-03-25] MEDS: HEPARIN SC ×3 (01:02→17:11)
[2024-03-25 03:26] VITALS: BP 160/86
[2024-03-25 05:55] VITALS: BMI 21.3
[2024-03-25 07:30] VITALS: BP 149/87
[2024-03-25 07:32] LABS: Glucose - Point of Care 258 mg/dl (70-99)
--- NOTE | 2024-03-25 07:47 | PN.DE.MGMTRT ---
Insulin Management
- -
03/25/2024: Diabetes Management F/U:
33 year old male well known to me from recurrent hospital admissions.
PMH: ESRD on HD (MWF), T1DM for 18 years. He was using a Medtronic 770 pump with NovoLog insulin and Guardian sensor.
Pt presented to ED on 03/10-03/11 c/o weakness, abd pain, N/V due DKA and significant volume overload after missing HD. He was stabilized and signed out AMA.
He returned to the ER on 03/13 c/o N/V, asking for IV narcotics and was found to be hypotensive, became bradycardic and went into PEA arrest.
Patient sleeping, arousable at time of visit, offers no complaints.
Insulin was adjusted to Lantus 8 units in AM and NovoLog 5 units AC
Premeal glucose range 109 to 297 with FBG 258 this AM.
Per pump settings 24 hour basal insulin 8.7 units when using pump, carb ratio 1:10.
Will cont Lantus 8 units in AM with NovoLog 5 units ac. Please hold 5 units standing dose if patient does not eat meal.
Pt dose not have his insulin pump in the hospital at this moment and his mental status is not back to baseline, will not resume his insulin pump at this time.
Diabetes plan of care discussed with pt's Nurse via TT.
Diabetes History
- -
Type of Diabetes: 1
Pre-Admission Diabetes Regimen
03/24/24
07:32
Creatinine 5.4 H*
Insulin Pump Settings
IP Diabetes Regimen
03/24/24 03/24/24 03/24/24
07:32 07:47 12:12
Glucose 266 H
POC Glucose 275 H 297 H
03/24/24 03/24/24 03/25/24
16:40 21:16 07:27
Glucose
POC Glucose 109 H 126 H 258 H
Meal type: Dinner
Meal type: Lunch
Meal type: Breakfast
Amount consumed: 100%
Amount consumed: 90%
Amount consumed: 100%
Patient Education
[2024-03-25 08:21] VITALS: BP 149/87
[2024-03-25] MEDS: NOVOLOG FLEXPEN 5 UNITS SC ×3 (09:30→17:12)
[2024-03-25] MEDS: NOVOLOG FLEXPEN-LOW RESISTANCE 3 UNITS SC (09:30)
[2024-03-25] MEDS: NORVASC 10 MG PO (09:32)
[2024-03-25] MEDS: FOLVITE 1 MG PO (09:33)
[2024-03-25] MEDS: COREG 25 MG PO ×2 (09:33→20:25)
[2024-03-25] MEDS: LIDOCAINE 4% PATCH 1 PATCH TOPICAL (09:35)
[2024-03-25] MEDS: PROTONIX 40 MG PO (09:36)
[2024-03-25] MEDS: ROBITUSSIN 200 MG PO ×3 (09:36→22:23)
[2024-03-25] MEDS: VITAMIN B1 100 MG PO ×2 (09:37→20:26)
[2024-03-25] MEDS: LANTUS 0.0800000000000000017 UNITS SC (09:39)
[2024-03-25] MEDS: ATIVAN 0.5 MG PO ×2 (10:01→22:21)
[2024-03-25] MEDS: ULTRAM 25 MG PO ×2 (10:01→22:21)
--- NOTE | 2024-03-25 12:16 | W.PN.HOSP.TC ---
Today's Communication/Plan
-
Dispo - PMR eval. Medically stable. awaiting placement.
Assessment / Plan
Assessment / Plan
Gen-awake, oriented to month and year
HEENT-NC, AT, anicteric
Neck-supple
CV-reg, no M, +S1/S2,
Lungs-clear B/L, Nasal cannula noted
Abd-soft, NT, ND
Ext-no edema
Musculoskeletal-no cyanosis, clubbing. LUE AVF.
Skin-warm and dry.
Ongoing hypoactive delirium -likely due to critical illness. Unclear if he suffered any degree of hypoxic encephalopathy during cardiac arrest. Mentation seems to have significantly improved. CT head negative for acute pathology.
Cardiac arrest - likely secondary to severe metabolic acidosis/noncompliance with hemodialysis. Small pericardial effusion noted on most recent echocardiogram, along with moderate TR, severe pulmonary hypertension. LVEF 60 to 65%. Reduced RV
systolic function.
Acute hypoxic respiratory failure - status post intubation mechanical ventilation. Extubated 03/17. Oxygenation stable and patient requesting nasal cannula for comfort.
Last chest x-ray was March 19, large bilateral lower lobe airspace consolidations, moderate right small left pleural effusions. Acute nondisplaced right fourth lateral rib fracture.
Dysphagia post extubation-TF stopped. IDDS6 with thin liquids. Speech recs and hopefully can advanced diet further.
Hypokalemia -resolved.
Hyperphosphatemia -likely precipitated by ESRD. Monitor for now. Unclear if patient would be compliant with Phos binders outpatient.
Shock -differential diagnosis includes severe volume depletion, cardiogenic, septic, etc. weaned off vasopressors. Hemodynamically stable.
Fevers noted on March 14. Blood cultures negative so far. Sputum culture notes Hafnei alvei, MRSA. Suspect colonization as he is clinically improved. White blood cell count has been normal so far. Monitor off antibiotics.
DM1 with DKA -reportedly using insulin pump at home, doubt compliance. DKA resolved. Diabetes REFUSE DRIVER following. Episodes of hypoglycemia and insulin adjusted. Now on Lantus 8 units with NovoLog at 5 units AC. Iss. POC stabilized and now elevated. POC
258
ESRD - on hemodialysis M, W, F.
Severe metabolic acidosis - secondary to missed dialysis and diabetic ketoacidosis.
-Patient with history of missing hemodialysis sessions.
Atrial fibrillation -with rapid ventricular response. Back in sinus rhythm. Not long-term anticoagulation candidate given known noncompliance. Cardiology noted.
Severe alcohol use disorder
-Per patient mother, patient drank a whole bottle of whiskey on 03/12/2024
-Psych eval-pt not interested in D&A rehab.
Chronic abdominal pain associated with nausea and vomiting likely secondary to gastroparesis
Acute nonischemic myocardial injury -troponin trending down. Etiology likely due to cardiac arrest, CPR, atrial fibrillation, ESRD, etc.
Recurrent right pleural effusion
-Chest x-ray with small to moderate pleural effusion with adjacent atelectasis versus pneumonia
Chronic anemia of renal disease
-Hemoglobin stable
Essential hypertension -hypertensive urgency. restart coreg home dose and norvasc. BP improved
Severe pulmonary hypertension
Reported history of pulmonary embolism -date unknown. Records not available. Venous Doppler ultrasound lower extremities negative for DVT. Last CT chest from July 2023 negative for pulmonary embolism.
Anxiety/depression-psych signed off. Cont oxcarbazepine
Tobacco dependence/severe drug-seeking behavior
-Smokes half pack of cigarettes per day
Significant past medical history of noncompliance with medications and hemodialysis
Full code
PT/OT-Acute Rehab. PMR consulted.
Dispo - PMR eval. Medically stable. awaiting placement.
Anticipated Discharge: Within 24 hours
Subjective/Interval History
-
Date of Service: March 25, 2024
tolerating diet
resting in bed comfortably
Objective Data
-
Vital Signs:
Vital Signs
Temp Pulse Resp BP Pulse Ox
98.4 F 84 18 149/84 96
03/25/24 07:30 03/25/24 09:32 03/25/24 07:30 03/25/24 09:32 03/25/24 07:30
I&O
03/24/24 03/25/24 03/26/24
06:59 06:59 06:59
Intake Total 960 / 960 1680 / 1680
Output Total 0 / 0
Balance 960 / 960 1680 / 1680
[2024-03-25 12:22] LABS: Glucose - Point of Care 314 mg/dl (70-99)
[2024-03-25] MEDS: NOVOLOG FLEXPEN-LOW RESISTANCE 4 UNITS SC (12:25)
[2024-03-25] MEDS: ROBITUSSIN PO (12:27)
[2024-03-25 15:11] VITALS: BP 156/89
--- NOTE | 2024-03-25 16:06 | CM ---
Spoke with patient bedside, more alert today.
Patient stated he is able to ambulate with RW, jah diet.
patient has his grandmothers democrat this weekend and wants to go, advised him to speak with his MD.
Discussed acute and skilled rehab.
PMR consultation (P).
Plan: acute vs skilled rehab
[2024-03-25 16:54] LABS: Glucose - Point of Care 219 mg/dl (70-99)
[2024-03-25] MEDS: NOVOLOG FLEXPEN-LOW RESISTANCE 2 UNITS SC (17:12)
[2024-03-25 19:45] VITALS: BP 131/71
[2024-03-25 20:53] LABS: Glucose - Point of Care 298 mg/dl (70-99)
[2024-03-25] MEDS: TRILEPTAL 150 MG PO (22:20)
[2024-03-25] MEDS: TYLENOL ORAL SOLUTION 650 MG PO (22:22)
[2024-03-25 23:00] VITALS: BP 149/80
[2024-03-26 00:40] LABS: Glucose - Point of Care 505 mg/dl (70-99)
[2024-03-26] MEDS: NOVOLOG FLEXPEN 8 UNITS SC (01:31)
[2024-03-26 01:38] LABS: Glucose 530 mg/dl (70-99)
[2024-03-26] MEDS: HEPARIN SC ×3 (01:39→15:33)
[2024-03-26] MEDS: ATIVAN 0.5 MG PO ×2 (03:14→07:29)
[2024-03-26 03:44] LABS: Glucose - Point of Care 438 mg/dl (70-99)
[2024-03-26 03:46] VITALS: BP 140/86
[2024-03-26 05:03] LABS: Glucose 401 mg/dl (70-99)
[2024-03-26] MEDS: NOVOLOG FLEXPEN 6 UNITS SC (05:22)
[2024-03-26 05:50] VITALS: BMI 21.8
--- NOTE | 2024-03-26 07:22 | PN.DE.MGMTRT ---
Insulin Management
- -
03/26/2024: Diabetes Management F/U:
33 year old male well known to me from recurrent hospital admissions.
PMH: ESRD on HD (MWF), T1DM for 18 years. He was using a Medtronic 770 pump with NovoLog insulin and Guardian sensor.
Pt presented to ED on 03/10-03/11 c/o weakness, abd pain, N/V due DKA and significant volume overload after missing HD. He was stabilized and signed out AMA.
He returned to the ER on 03/13 c/o N/V, asking for IV narcotics and was found to be hypotensive, became bradycardic and went into PEA arrest.
Patient awake, sitting up at edge of bed, offers no complaints.
Noted for an episode of Hyperglycemia up to 530 @01:10, received a total of 14 units of aspart. FBG 226 (V) and 169 POC.
Will make no changes to current regimen. Cont Lantus 8 units in AM with NovoLog 5 units AC with moderate corrective.
Please hold 5 units standing dose if patient does not eat meal. Per pump settings 24 hour basal insulin 8.7 units when using pump, carb ratio 1:10.
Pt dose not have his insulin pump in the hospital at this moment and his mental status is not back to baseline, will not resume his insulin pump at this time.
Diabetes plan of care discussed with pt's Nurse via TT.
Diabetes History
- -
Type of Diabetes: 1
Pre-Admission Diabetes Regimen
Insulin Pump Settings
IP Diabetes Regimen
03/25/24 03/25/24 03/25/24
07:27 12:19 16:52
Glucose
POC Glucose 258 H 314 H 219 H
03/25/24 03/26/24 03/26/24
20:52 00:38 01:10
Glucose 530 H*
POC Glucose 298 H 505 H*
03/26/24 03/26/24 03/26/24
03:43 04:05 04:44
Glucose Cancelled 401 H
POC Glucose 438 H
Meal type: Dinner
Meal type: Lunch
Meal type: Breakfast
Amount consumed: 100%
Amount consumed: 100%
Amount consumed: 100%
Patient Education
[2024-03-26] MEDS: ULTRAM 25 MG PO (07:29)
[2024-03-26 07:45] VITALS: BP 149/84
[2024-03-26 08:18] LABS: Hemoglobin 10.3 g/dL (13.0-18.0); Mean Corp Hgb Conc. 34.3 g/dL (33.0-37.0); Mean Corpuscular Hgb 31.7 pg (27.0-31.0); Mean Corpuscular Volume 92.3 fL (80.0-94.0); Mean Platelet Volume 10.8 fL (7.4-10.4); Platelet Count 251 10^3/uL (130-400); Red Blood Cell Count 3.25 10^6/uL (4.70-6.10); White Blood Cell Count 8.1 10^3/uL (4.8-10.8)
[2024-03-26 08:27] LABS: Glucose - Point of Care 169 mg/dl (70-99)
[2024-03-26] MEDS: NOVOLOG FLEXPEN-LOW RESISTANCE 1 UNITS SC (08:51)
[2024-03-26] MEDS: LANTUS 0.0800000000000000017 UNITS SC (08:53)
[2024-03-26] MEDS: NOVOLOG FLEXPEN 5 UNITS SC ×2 (08:56→12:28)
[2024-03-26] MEDS: LIDOCAINE 4% PATCH TOPICAL (08:57)
[2024-03-26 09:01] LABS: Blood Urea Nitrogen 47 mg/dl (9-20); Calcium 9.4 mg/dl (8.4-10.2); Carbon Dioxide 24 mmol/L (22-30); Chloride 92 mmol/L (98-107); Estimated Creatinine Clearance 16 ml/min; Glucose 226 mg/dl (70-99); Potassium 4.9 mmol/L (3.5-5.1); Sodium 129 mmol/L (135-145); eGFR 12.36
--- NOTE | 2024-03-26 09:52 | W.PN.NEPH.HD ---
Assessment
-
Seen on HD. no complaints. VSS, access ok
Progress Note - Hemodialysis
-
Date of Service: March 26, 2024
Duration: 30 minutes and 3 hours
Potassium Bath: 2
Calcium Bath: 2.5
Opti-Dialyzer: 160
Ultrafiltration: Other (3kg)
Blood Flow: 400
Dialysate Flow: 600
Heparin: no
EPO: no
--- NOTE | 2024-03-26 10:44 | W.PN.HOSP.TC ---
Today's Communication/Plan
-
Hd today
CM for rehab placement
Assessment / Plan
Assessment / Plan
Gen-awake, oriented to month and year
HEENT-NC, AT, anicteric
Neck-supple
CV-reg, no M, +S1/S2,
Lungs-clear B/L, Nasal cannula noted
Abd-soft, NT, ND
Ext-no edema
Musculoskeletal-no cyanosis, clubbing. LUE AVF.
Skin-warm and dry.
Ongoing hypoactive delirium -likely due to critical illness. Unclear if he suffered any degree of hypoxic encephalopathy during cardiac arrest. Mentation seems to have significantly improved and resolved. CT head negative for acute pathology.
Cardiac arrest - likely secondary to severe metabolic acidosis/noncompliance with hemodialysis. Small pericardial effusion noted on most recent echocardiogram, along with moderate TR, severe pulmonary hypertension. LVEF 60 to 65%. Reduced RV
systolic function.
Acute hypoxic respiratory failure - status post intubation mechanical ventilation. Extubated 03/17. Oxygenation stable and patient requesting nasal cannula for comfort.
Last chest x-ray was March 19, large bilateral lower lobe airspace consolidations, moderate right small left pleural effusions. Acute nondisplaced right fourth lateral rib fracture.
Dysphagia post extubation-TF stopped. IDDS6 with thin liquids. Speech recs and hopefully can advanced diet further.
Hypokalemia -resolved.
Hyperphosphatemia -likely precipitated by ESRD. Monitor for now. Unclear if patient would be compliant with Phos binders outpatient.
Shock -differential diagnosis includes severe volume depletion, cardiogenic, septic, etc. weaned off vasopressors. Hemodynamically stable.
Fevers noted on March 14. Blood cultures negative so far. Sputum culture notes Hafnei alvei, MRSA. Suspect colonization as he is clinically improved. White blood cell count has been normal so far. Monitor off antibiotics.
DM1 with DKA -reportedly using insulin pump at home, doubt compliance. DKA resolved. Diabetes QUALITY ASSURANCE DIRECTOR following. Episodes of hypoglycemia and insulin adjusted. Now on Lantus 8 units with NovoLog at 5 units AC. Iss. POC stabilized and now elevated.
Recommended to patient to have family member bring in insulin for insulin pump otherwise will need basal/bolus regimen.
ESRD - on hemodialysis M, W, F.
Severe metabolic acidosis - secondary to missed dialysis and diabetic ketoacidosis.
-Patient with history of missing hemodialysis sessions.
Atrial fibrillation -with rapid ventricular response. Back in sinus rhythm. Not long-term anticoagulation candidate given known noncompliance. Cardiology noted.
Severe alcohol use disorder
-Per patient mother, patient drank a whole bottle of whiskey on 03/12/2024
-Psych eval-pt not interested in D&A rehab.
Chronic abdominal pain associated with nausea and vomiting likely secondary to gastroparesis-tolerating diet now.
Acute nonischemic myocardial injury -troponin trending down. Etiology likely due to cardiac arrest, CPR, atrial fibrillation, ESRD, etc.
Recurrent right pleural effusion
-Chest x-ray with small to moderate pleural effusion with adjacent atelectasis versus pneumonia
-Volume removal per HD
Chronic anemia of renal disease
-Hemoglobin stable
Essential hypertension -hypertensive urgency. restart coreg home dose and norvasc. BP improved
Severe pulmonary hypertension
Reported history of pulmonary embolism -date unknown. Records not available. Venous Doppler ultrasound lower extremities negative for DVT. Last CT chest from July 2023 negative for pulmonary embolism.
Anxiety/depression-psych signed off. Cont oxcarbazepine
Tobacco dependence/severe drug-seeking behavior
-Smokes half pack of cigarettes per day
Significant past medical history of noncompliance with medications and hemodialysis
Full code
PT/OT-Acute Rehab. PMR consulted.
Dispo - PMR eval. Medically stable. awaiting placement.
Anticipated Discharge: Within 24 hours
Subjective/Interval History
-
Date of Service: March 26, 2024
Seen on HD
Tolerating diet
Objective Data
-
Labs:
Laboratory Results
03/26/24 03/26/24 03/26/24
01:10 04:05 04:44
WBC
Hgb
Hct
Plt Count
Sodium
Potassium
Chloride
Carbon Dioxide
BUN
Creatinine
Glucose 530 H* Cancelled 401 H
Calcium
03/26/24
07:32
WBC 8.1
Hgb 10.3 L
Hct 30.0 L
Plt Count 251
Sodium 129 L
Potassium 4.9
Chloride 92 L
Carbon Dioxide 24
BUN 47 H
Creatinine 5.8 H*
Glucose 226 H
Calcium 9.4
Vital Signs:
Vital Signs
Temp Pulse Resp BP Pulse Ox
98.7 F 83 16 149/84 98
03/26/24 07:45 03/26/24 07:45 03/26/24 07:45 03/26/24 07:45 03/26/24 07:45
I&O
03/25/24 03/26/24 03/27/24
06:59 06:59 06:59
Intake Total 1679 / 0 2159 / 2159
Output Total 0 / 0 0 / 0
Balance 1679 / 1679
[2024-03-26 11:00] VITALS: BP 155/93
[2024-03-26] MEDS: PROTONIX 40 MG PO (11:50)
[2024-03-26] MEDS: FOLVITE 1 MG PO (11:50)
[2024-03-26] MEDS: COREG 25 MG PO (11:50)
[2024-03-26] MEDS: VITAMIN B1 100 MG PO (11:51)
[2024-03-26] MEDS: NORVASC 10 MG PO (11:51)
[2024-03-26] MEDS: ROBITUSSIN PO ×2 (11:53→13:32)
[2024-03-26 12:05] LABS: Glucose - Point of Care 123 mg/dl (70-99)
[2024-03-26] MEDS: NOVOLOG FLEXPEN-LOW RESISTANCE SC (12:10)
--- NOTE | 2024-03-26 12:44 | CM ---
Addendum entered by Cherise Dallas 03/26/24 14:57:
IMM reviewed and signed.
Addendum entered by Cherise Dallas 03/26/24 14:22:
OT recommending acute rehab.
Patient declining acute and skilled rehab.
Patient agreeable to home with VN.
Referral to [facility].
TC to [facility]. spoke with [facility]an, will fax clinicals and updated HD flow sheets. Chandan updated HD to resume next week.
Per MD, patients mother Cherise will need to bring insulin in to resume insulin pump.
Tc to Cherise and she will bring insulin around dinner time.
patient updated, per patient he has insulin in his room.
Plan: home with VN, opt HD -
[facility] VN

Fransiscoita Abidavidton

Original Note:
Spoke with patient bedside.
Discussed rehab and skilled rehab.
Patient wants to take the weekend off, has a family function.
CM explained if he was going to rehab he would go directly from inpatient.
Patient not sure he needs rehab.
OT to see patient today.
Spoke with Usha at [facility], will cont to follow.
Spoke with patients mother Cherise, she is open to rehab, skilled or home with VN if he is safe.
Plan: possible rehab vs home with therapy.
[2024-03-26 12:56] VITALS: O2SAT 95
--- NOTE | 2024-03-26 14:06 | CON.MD ---
Consultation - Medical
-
Referring Provider: Dr. Orville Mckenzie
Chief Complaint: Acute hyperkalemia
History of Present Illness: 34-year-old male with PMH (as below) presented to [facility] on 03/13/2024 with nausea and vomiting. Also noted with hypotension and started on IV fluids. Had a bradycardic PEA arrest with return of spontaneous
circulation, was intubated. Patient with history of noncompliance, missed dialysis sessions. Noted to also be in acute DKA. Echocardiogram with EF 60 to 65% with a dilated hypokinetic RV with no change from echo 02/18/2024. Had a bradycardic
episode on 03/15/2024 with severe hypotension, resolved with adjustment in pressors. Extubated 03/17. Lower extremity Doppler 03/17 with no DVT. Noted with a stage II middle back pressure injury. Required tube feeding.
Overall patient notes feeling fine. Feels that he can get up and get around safely. Denies any thinking or memory concerns since that is cardiac arrest. Denies any numbness or tingling concerns.
Past Medical History: type 1 diabetes on insulin pump, diabetic nephropathy, end stage renal disease on hemodialysis M, W, F, chronic right-sided pleural effusion, chronic abdominal pain secondary to gastroparesis, hypertension, severe pulmonary
hypertension, alcohol use disorder, anxiety/depression, alcohol abuse
Procedure History: L UE AVF, appendectomy, peritoneal dialysis catheter placed and removed.
Family History: Asthma
Social History:
Functional Level Premorbidly: Independent with all activities
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 Ambulating 40 feet x 2 with rolling walker and min assist.
Tobacco: Smoking
Alcohol: Occasional, trying to follow [employer] on 03/12/2024
Drug use: Denies
Lives with: Family
24-hour assistance available: No
Number of floors: 2
# steps to enter: 0
# steps to second floor: 13
Potential First floor set up: No
Driving: No
Occupation: Not working
Allergies:
Allergy/AdvReac Type Severity Reaction Status Date / Time
shellfish derived Allergy Hives Verified 03/11/24 14:06
Review of Systems: Denies any acute concerns
Constitutional: (x) Normal _
Eye: (x) Normal _
Ear/Nose/Throat: (x) Normal _
Respiratory: (x) Normal _
Cardiovascular: (x) Normal _
Gastrointestinal: (x) Normal _
Genitourinary: (x) Normal _
Musculoskeletal: (x) Normal _
Integumentary: (x) Normal _
Neurologic: (x) Normal _
Psychiatric: (x) Normal _
Endocrine: (x) Normal _
Hematologic/Lymphatic: (x) Normal _
Allergic/Immunologic: (x) Normal _
Medications:
Active Current Visit Medication List
Category Date Time Status
Acetaminophen [Tylenol Oral Solution] Med 03/21/24 23:36 Active
650 mg PO Q4HPRN PRN
Albumin Human 25% 50 ml [Flexbumin 25% For Hemodialysis Med 03/26/24 08:00 Active
]
12.5 grams IV HD-Q1HPRN PRN
Amlodipine [Norvasc] Med 03/23/24 08:00 Active
10 mg PO DAILY
Benzonatate [Tessalon Perles] Med 03/22/24 09:08 Active
200 mg PO TIDPRN PRN
Carvedilol [Coreg] Med 03/22/24 20:00 Active
25 mg PO BID
Dextrose 50%-Water [Dextrose 50% Syringe] Med 03/19/24 14:00 Active
12.5 grams IV [id number] PRN
FOLic ACID [Folvite] Med 03/14/24 08:00 Active
1 mg PO DAILY
FOLic ACID [Folvite] 1 mg Med 03/13/24 10:50 Active
0.9% Sodium Chloride 50 ml [Nss] 50 ml
IV DAILYPRN
Flush (0.9% Sodium Chloride) [Flush (Nss)] Med 03/13/24 12:00 Active
See Dose Instructions IV PER PROTOCOL
Glucagon [GlucaGen] Med 03/19/24 14:00 Active
1 mg IM PRN PRN
Guaifenesin Solution [Robitussin] Med 03/22/24 13:00 Active
200 mg PO QID
Heparin Med 03/13/24 16:00 Active
5,000 units SC Q8
Insulin Aspart Corrective Mod [Novolog Flexpen-Moderate Med 03/26/24 16:30 Active
Resistance]
See Protocol SC AC
Insulin Aspart Pen [Novolog Flexpen] Med 03/23/24 16:30 Active
5 units SC AC
Insulin Glargine Lantus [Lantus] 8 units Med 03/25/24 08:00 Active
Subcutaneous Insulin Syringe [Syringe-Insulin] 0 unit
SC DAILY
Lidocaine [Lidocaine 4% Patch] Med 03/22/24 09:15 Active
1 patch TOPICAL DAILY
Lorazepam [Ativan] Med 03/21/24 11:33 Active
0.5 mg PO TIDPRN PRN
Mannitol Med 03/26/24 08:00 Active
12.5 grams IV HD-Q1HPRN PRN
Nitroglycerin Sublingual [Nitrostat (Sublingual)] Med 03/22/24 13:34 Active
0.4 mg SL [id number] PRN
Oxcarbazepine [Trileptal] Med 03/22/24 22:00 Active
150 mg PO HS
Pantoprazole [Protonix] Med 03/24/24 08:00 Active
40 mg PO DAILY
Polyethylene Glycol Powder [Miralax] Med 03/21/24 23:36 Active
17 grams PO DAILY
Remove Patch [Remove Lidocaine Patch] Med 03/22/24 20:00 Active
See Dose Instructions REMOVE DAILY@1999
Thiamine HCl [Vitamin B1] Med 03/23/24 20:00 Active
100 mg PO BID
Tramadol HCl [Ultram] Med 03/22/24 13:44 Active
25 mg PO BIDPRN PRN
Trazodone [Desyrel] Med 03/22/24 11:32 Active
25 mg PO HSPRN PRN
Vitals:
Temp Pulse Resp BP Pulse Ox
98.4 F 86 22 155/63 98
03/26/24 11:00 03/26/24 11:50 03/26/24 11:00 03/26/24 11:50 03/26/24 11:00
Height 5 ft 7 in
Actual Weight 63.185 kg
Body Mass Index (BMI) 21.8
Physical Exam:
General Appearance/Observation: Well-developed, thin male in no apparent distress.
Pain/Comfort Assessment: Denies
Mood/Affect: Appropriate
Integumentary/Operative Site: IV site
Eyes: Conjunctiva/Lids: normal ��� Pupils: pupils equal round and reactive to light and Accommodation
Ears/Nose/Throat: oral mucosa moist,� throat clear.������������ Lips/Teeth/Gums: normal
Cardiovascular: Heart: regular, no murmur
Respiratory: Respiratory Effort/Chest Expansion: normal ������ Auscultation: Clear to auscultation bilaterally
Gastrointestinal: abdomen not tender, no distension, normal abdominal bowel sounds
Genitourinary: No Randhawa
Extremities: Edema: None Cyanosis: None Trophic changes: None
Neurology Exam:
Orientation: Alert, Oriented to self, Time, Place
Memory: Intact for recent medical concerns
Comprehension: Intact
Two step command: Intact
Cranial Nerves:
�� CNII: Pupillary light reflex: Intact���
�� CN VII: Facial movement: Symmetric
�� CN VIII: Hearing: Normal
�� CN IX/X: Speech & swallow: Normal, Position of Uvula: Midline
�� CN XI: Shoulder shrug: Symmetric
�� CN XII: Tongue protrusion: Midline
Sensory:
�� Light touch: Intact in bilateral upper and lower extremities but decreased distally.
Musculoskeletal:Motor: (Manual muscle scale 0-5)
Muscle SA EF WE EE FF FA HF KE DF EHL PF
Right� 4 5 5 5 3+ 5 5 5
Left 4 5 5 5 3+ 5 5 5
Tone: Normal in all extremities
Lab Results
Laboratory Data
03/26/24 07:32
03/26/24 07:32
PT 16.5 Sec (11.4-14.6) H 03/14/24 04:23
INR 1.35 03/14/24 04:23
APTT 38.5 Sec (23.4-35.0) H 03/14/24 04:23
Total Bilirubin 0.7 mg/dl (0.2-1.3) 03/23/24 05:04
Direct Bilirubin 1.2 mg/dl (0.0-0.4) H 03/18/24 06:23
AST 29 U/L (17-59) 03/23/24 05:04
ALT 35 U/L (0-50) 03/23/24 05:04
Alkaline Phosphatase 104 U/L (38-126) 03/23/24 05:04
Total Protein 5.8 g/dl (6.3-8.2) L 03/23/24 05:04
Albumin 3.0 g/dl (3.5-5.0) L 03/23/24 05:04
�
Diagnostic Results: as per HPI
Assessment
34-year-old male with PMH (type 2 diabetes on insulin pump, diabetic nephropathy, end stage renal disease on hemodialysis M, W, F, chronic right-sided pleural effusion, chronic abdominal pain secondary to gastroparesis, hypertension, severe
pulmonary hypertension, alcohol use disorder, anxiety/depression, alcohol abuse) with 03/13/2024 DKA, hypotension, bradycardic PEA arrest with return of spontaneous circulation, intubation, stage II middle back pressure ulcer with ADL and ambulatory
dysfunction.
Plan
Debility: PT/OT to increase independence with ADLs, improve balance, coordination, endurance, strength, mobility, community reintegration, decreased burden of care on others and family education.
HTN: continue medications, monitor closely
DM II: Accu-Cheks, insulin sliding scale, aspart, lantus.
ESRD on HD M/W/F: Nephrology consulted.� Monitor weights.
Anemia: Likely multifactorial.� Continue to monitor.
Psych: Psychology consult.� Monitor mood, medications as needed.
Back pressure ulcer:� Vitamin C, zinc, multivitamin.� Weight shifts in wheelchair and bed.� Roho cushion.� Pressure-relief boots.� Lotrimin to fungal rash over buttocks and inguinal region.
Skin: monitor for pressure sores/rashes/lesions.
Pain: acetaminophen or tramadol as needed.
Bowel: Moving bowels
Bladder: Denies any acute concerns
Alcohol Abuse: Alcohol cessation education, offering of outpatient alcohol abuse program
Tobacco Abuse: Smoking cessation counseling. Need to find out why smoking whether it is nicotine withdrawal, habit, or oral fixation.
GI Prophylaxis: Pantoprazole
DVT Prophylaxis: Mechanical and heparin.
Pulmonary: Incentive spirometry
Code Status:� Full code
Dispo (date/plan/equipment needs): Home with family care.
Discharge Destination: SNF recommended, patient is not interested in staying in a rehab. Choosing to do home with home care therapies.
Functional and Medical Goals: Modified Independent with ADL�s, ambulation, transfers
Summary of recommendations:
- Discharge Destination: SNF recommended, patient is not interested in staying in a rehab. Choosing to do home with home care therapies.
Debility: PT/OT to increase independence with ADLs, improve balance, coordination, endurance, strength, mobility, community reintegration, decreased burden of care on others and family education.
Back pressure ulcer:� Vitamin C, zinc, multivitamin.� Weight shifts in wheelchair and bed.� Roho cushion.� Pressure-relief boots.� Lotrimin to fungal rash over buttocks and inguinal region.
Skin: monitor for pressure sores/rashes/lesions.
Pain: acetaminophen or tramadol as needed.
Alcohol Abuse: Alcohol cessation education, offering of outpatient alcohol abuse program
Tobacco Abuse: Smoking cessation counseling. Need to find out why smoking whether it is nicotine withdrawal, habit, or oral fixation.
GI Prophylaxis: Pantoprazole
DVT Prophylaxis: Mechanical and heparin.
Pulmonary: Incentive spirometry
Safety: Continue to reinforce assistance with all transfers.
Thank you for allowing me to care for your patient. Please contact me with any questions or concerns.
[2024-03-26 14:50] LABS: Glucose - Point of Care 49 mg/dl (70-99)
[2024-03-26 15:13] LABS: Glucose - Point of Care 42 mg/dl (70-99)
[2024-03-26 15:29] LABS: Glucose - Point of Care 111 mg/dl (70-99)
--- NOTE | 2024-03-26 16:10 | W.PN.UPDATE ---
Update Note
Progress Note Update
Patient after he received hemodialysis that he was leaving his medical advice. Patient at least completed full session of HD. Patient was hypoglycemic earlier however sugars improved after receiving juice. Patient does not have insulin for his
insulin pump and recommended for family but did not bring it in or was willing to prescribe patient Lantus and Premeal insulin. Patient refused any further basal bolus regimen that he was receiving in the hospital. 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 Patient stated his mother is picking him up. Case management already sent his HD paperwork to his regular dialysis session as we are waiting for him to get a place to rehab. Patient understands his risk of
hypoglycemia, hypoxemia, cardiac arrest and . Patient signed AMA form.
--- NOTE | 2024-03-26 16:10 | PTCARENOTE ---
Pt deciding to leave AMA. MD notified. Pt educated about risks associated with leaving AMA. Pt still expressing desire to leave. AMA paperwork signed by both Pt and MD. Pt ambulated to exit on own. IV and tele back removed prior to pt leaving.
--- NOTE | 2024-03-26 16:12 | W.DCSUMMARY ---
Discharge Summary
Discharge Data
Date of Admission: 03/13/24
Date of Discharge: 03/26/24
-
Pending Results: No
Hospital Course
34 year old male with past medical history of type 1 diabetes on insulin pump, diabetic nephropathy, end stage renal disease on hemodialysis M, W, F, chronic right-sided pleural effusion, chronic abdominal pain secondary to gastroparesis,
hypertension, severe pulmonary hypertension, alcohol use disorder, anxiety/depression, presented with weakness and shortness of breath and nausea and vomiting. Patient upon admission was complaining of severe nausea and vomiting and shortness of
breath. Prior to arrival patient has missed his regularly scheduled dialysis. Patient was found to be in severe DKA with increased and severe anion gap metabolic acidosis. Patient with severe hypoglycemia. Patient stated he ran out of insulin
from his insulin pump and did not get a chance to refill it. Patient was also hypoxic upon admission. Subsequently patient underwent cardiac arrest in the ER status post bicarbonate and calcium status post epi. ROSC was achieved. Patient was
intubated and mechanically ventilated and admitted to medical ICU. Plant Protection Superintendent and cardiology was consulted. Patient was found to be briefly in atrial fibrillation and then subsequently afterwards converted to normal sinus rhythm. Patient
underwent emergent hemodialysis. Nephrology was consulted. Volume was removed during HD. Subsequently afterwards patient was eventually extubated. Postextubation patient with ongoing delirium which eventually resolved. Further information
obtained by patient mother who did state patient trying bottle of whiskey prior to arrival to the hospital. Psych was consulted and patient was not interested in going to detox and alcohol rehab. Patient was transferred to medical floor. Once
patient Was close he was transitioned to basal bolus regimen. Patient with intermittent episodes of hypo and hyperglycemia due to inconsistency in dietary intake. Speech evaluated patient and recommended dysphagia diet. Patient was eval by
physical and Occupational Therapy recommended skilled versus acute rehab. Physiatry was consulted. Patient during hospitalization underwent regular scheduled hemodialysis. Patient also with rib fracture secondary to chest compression and was
briefly given some narcotics. Oxygen was weaned off. Patient did not want to go to skilled or acute rehab and left AGAINST MEDICAL ADVICE. Patient was counseled as this is 1 of many time patient has left AGAINST MEDICAL ADVICE. Patient was
counseled to follow-up with his regular scheduled hemodialysis. Patient was also recommended to refill his insulin and the insulin pump. I offered to give patient Lantus and bolus regimen prescription however patient refused. Patient understood
his risk of hyperglycemia leading to DKA, shock and cardiac arrest and . Patient signed the AMA form and left the hospital.
Discharge Plan
-
Patient Disposition: Against Medical Advice
Discharge Diagnosis/Procedures: Cardiac arrest
Acute hypoxic respiratory failure
Dysphagia
Hypokalemia
Hyperphosphatemia
Shock
Diabetes mellitus type 1 with diabetic ketoacidosis
Alcohol abuse
Noncompliance with medication and hemodialysis
Acute nonischemic myocardial injury
Delirium
Atrial fibrillation rapid ventricular response status post conversion to normal sinus rhythm
Condition: Fair
Diet: Diabetic, Carb Controlled and Restrict fluids to 48 oz
Activity: With assistance and As tolerated
Driving Restrictions: Not until seen by your Dr
Activity Restrictions/Additional Instructions:
Wound Care Instructions
L back adhesive skin tear-clean with saline, silicone border foam, change q 3 days and prn loosened dressing.
Referrals:
UNKNOWN - PT DOES,NOT KNOW [Family Provider] -
Prescriptions:
No Action
furosemide 40 MG tablet
40 mg PO BID
carvedilol [Coreg] 25 MG tablet
25 mg PO BID
amlodipine 10 MG tablet
10 mg PO DAILY
metoclopramide HCl [Reglan] 10 mg Tablet
10 mg PO TIDPRN PRN (Reason: nausea)
oxcarbazepine 150 mg tablet
150 mg PO HS
trazodone 50 mg Tablet
25 mg PO HSPRN PRN (Reason: sleep)
Patient Own Insulin Pump
0 units SC .VIA PUMP
Patient Comments:
03/05/2024, pt. uses insulin pump; pt. states to use roughly 70 units of Novolog 100 unit/ml every day and replaces his insulin Q3D; pt. unsure when he lasted changed his insulin.
Discharge Orders:
Discharge Patient (As Directed); Ordered 03/26/24
Ordered By: Orville Mckenzie
Discharge Date and Time
Discharge Date/Time: 03/26/24 16:21
Print Language: IRISH
== END 2024-03-26 16:21 | disposition left against medical advice (07) | DRG 207 ==
LOC: 4 WEST ACU 09:19
PROVIDERS: Hospitalist; Internal Medicine Pulmonary Disease; Nurse Practitioner Family; Nurse Practitioner Primary Care; Radiology Diagnostic Radiology; Specialist; Student in an Organized Health Care Education/Training Program; ADMITTING PHYSICIAN Hospitalist; CONSULT PHYSICIAN Internal Medicine; CONSULT PHYSICIAN Physical Medicine & Rehabilitation; CONSULT PHYSICIAN Specialist; EMERGENCY PHYSICIAN Emergency Medicine; OTHER PHYSICIAN Internal Medicine Critical Care Medicine; OTHER PHYSICIAN Psychiatry & Neurology Psychiatry
PROC: 5A1955Z Respiratory Ventilation, Greater than 96 Consecutive Hours (ICD-10-PCS; 2024-03-13)
PROC: 5A1D70Z Performance of Urinary Filtration, Intermittent, Less than 6 Hours Per Day (ICD-10-PCS; 2024-03-13)
PROC: 0BH17EZ Insertion of Endotracheal Airway into Trachea, Via Natural or Artificial Opening (ICD-10-PCS; 2024-03-13)
PROC: 3E033XZ Introduction of Vasopressor into Peripheral Vein, Percutaneous Approach (ICD-10-PCS; 2024-03-13)
PROC: 02H633Z Insertion of Infusion Device into Right Atrium, Percutaneous Approach (ICD-10-PCS; 2024-03-15)
PROC: 0DH67UZ Insertion of Feeding Device into Stomach, Via Natural or Artificial Opening (ICD-10-PCS; 2024-03-19)
DX: J96.01 Acute respiratory failure with hypoxia (principal); E10.10 Type 1 diabetes mellitus with ketoacidosis without coma; G93.41 Metabolic encephalopathy; N18.6 End stage renal disease; I46.8 Cardiac arrest due to other underlying condition; R57.8 Other shock; I13.2 Hypertensive heart and chronic kidney disease with heart failure and with stage 5 chronic kidney disease, or end stage renal disease; F17.213 Nicotine dependence, cigarettes, with withdrawal; E87.1 Hypo-osmolality and hyponatremia; Z99.11 Dependence on respirator [ventilator] status; R18.8 Other ascites; I31.39 Other pericardial effusion (noninflammatory); I5A Non-ischemic myocardial injury (non-traumatic); F05 Delirium due to known physiological condition; E10.22 Type 1 diabetes mellitus with diabetic chronic kidney disease; I50.9 Heart failure, unspecified; G89.29 Other chronic pain; K31.84 Gastroparesis; I27.22 Pulmonary hypertension due to left heart disease; E10.43 Type 1 diabetes mellitus with diabetic autonomic (poly)neuropathy; E87.5 Hyperkalemia; D64.9 Anemia, unspecified; K59.00 Constipation, unspecified; F32.A Depression, unspecified; F41.9 Anxiety disorder, unspecified; R50.9 Fever, unspecified; I07.1 Rheumatic tricuspid insufficiency; I48.0 Paroxysmal atrial fibrillation; L89.102 Pressure ulcer of unspecified part of back, stage 2; E83.39 Other disorders of phosphorus metabolism; R13.10 Dysphagia, unspecified; E10.649 Type 1 diabetes mellitus with hypoglycemia without coma; F10.229 Alcohol dependence with intoxication, unspecified; Y90.5 Blood alcohol level of 100-119 mg/100 ml; E87.6 Hypokalemia; I16.0 Hypertensive urgency; F19.10 Other psychoactive substance abuse, uncomplicated; Z96.41 Presence of insulin pump (external) (internal); Z53.29 Procedure and treatment not carried out because of patient's decision for other reasons; Z79.4 Long term (current) use of insulin; Z99.2 Dependence on renal dialysis; Z91.199 Patient's noncompliance with other medical treatment and regimen due to unspecified reason; Z91.158 Patient's noncompliance with renal dialysis for other reason; Z86.711 Personal history of pulmonary embolism; Z82.5 Family history of asthma and other chronic lower respiratory diseases; Z91.013 Allergy to seafood; Z99.81 Dependence on supplemental oxygen; Z76.5 Malingerer [conscious simulation]; Z91.148 Patient's other noncompliance with medication regimen for other reason
CPT/HCPCS: 93308; 36600; 70450; 71045; 74018; 80048; 80053; 80202; 80306; 80307; 82077; 82248; 82550; 82805; 82947; 82962; 83605; 83690; 83735; 84100; 84132; 84478; 84484; 85014; 85018; 85025; 85027; 85610; 85730; 87040; 87070; 87077; 87084; 87147; 87186; 87205; 87324; 87449; 92526; 92610; 93005; 93306; 93321; 93325; 93970; 94002; 94003; 94640; 96361; 96365; 96367; 96375; 97116; 97163; 97167; 97530; 97535; 99291; 99292; G0257; P9047

== ENCOUNTER 2024-03-27 21:29 | Emergency (ER) | payer OTHER, SELFPAY ==
[2024-03-27 21:30] VITALS: BP 130/86
[2024-03-27 21:32] VITALS: BP 130/86
[2024-03-27 22:00] VITALS: BP 120/76
--- NOTE | 2024-03-27 22:09 | ED.GENMED ---
History of Present Illness
<MARCEL Oconnell - Last Filed: 03/28/24 00:15>
General
Chief Complaint: Musculo-Skeletal Complaint
Source: patient and records
Exam Limitations: none
Time Seen by Provider: 03/27/24 22:05
Travel History
Have you had any contact with someone who has COVID-19?: No
Do you have any symptoms of coronavirus? Fever > 100 degrees, chills, cough, shortness of breath, sore throat, loss of taste or smell, muscle aches, or headache?: No
History of Present Illness
History of Present Illness:
34 year old male with past medical history of type 1 diabetes on insulin pump, diabetic nephropathy, end stage renal disease on hemodialysis M, W, F, chronic right-sided pleural effusion, chronic abdominal pain secondary to gastroparesis,
hypertension, severe pulmonary hypertension, alcohol use disorder, anxiety/depression, presents with midsternal chest pain that worsened this morning. Pt with hx of cardiac arrest 1.5 weeks ago and received chest compressions and went into ROSC. Pt
found to be in DKA and hyperkalemic on 03/13/24 and was admitted. He was found to have acute nondisplaced right 4th lateral rib fractures secondary to chest compressions and was briefly given some narcotics. Pt did not want to go to skilled or acute
rehab and left AGAINST MEDICAL ADVICE just yesterday.
Pt presents today with worsening midsternal chest pain that began this morning at 1000. States pain is constant, nonradiating, sharp and shooting, and is 8/10 in strength. He also reports occasional SOB and dry cough. Denies fevers/chills, abdominal
pain, n/v/d, head ache, dizziness, neck or back pain.
Pt with hx of seeking narcotics and signing out AMA when he is not given them.
Past History
<MARCEL Oconnell - Last Filed: 03/28/24 00:15>
Past History
ED Past Medical History: CHF, HTN, IDDM, Renal failure (Dialysis M-W-F) and Other (ESRD, PE, Contipation, ESRD, TR, pulmonary hypertension, congestive heart failure, etc. chronic abdominal pain/gastroparesis)
ED Past Surgical History: Appendectomy and Other (Left AV fistula, biliary drain removed)
Patient has exhibited threatening behavior?: No
PSI?: No
Social History
Tobacco: Smoker
Alcohol: None
Drug: None
Personal: Single
Living: with family
Employment: Other
Family History
Family History: Other
Review of Systems
<MARCEL Oconnell - Last Filed: 03/28/24 00:15>
Review of Systems
Allergies reviewed?: Yes
All Other Systems: ROS reviewed and negative except as documented in HPI and ROS
Constitutional: Reports no symptoms
EENT: Reports no symptoms
Respiratory: Reports trouble breathing
Cardiac: Reports chest pain
ABD/GI: Reports no symptoms
: Reports no symptoms
Musculoskeletal: Reports muscle pain
Skin: Reports no symptoms
Neurological: Reports no symptoms
Phy Exam
<MARCEL Oconnell - Last Filed: 03/28/24 00:15>
General Physical Exam
General Presentation: well appearing and no apparent distress
General age: appears stated age
General Skin: warm and dry
General Habitus: normal
General Mental: alert
General Hydration: appears well hydrated
Pulmonary Exam
Pulmonary Exam: lungs clear, no respiratory distress, no rales, no crackles, no rhonchi, no wheezing, no cough and other (moderate tenderness to palpation of midsternal chest, mild erythema to anterior chest.)
Gastrointestinal Exam
Gastrointestinal Exam: non tender, soft, non distended and other (insulin pump to RUQ)
Neurological Exam
Neurological Exam: alert and oriented x3
Musculoskeletal Exam
Musculoskeletal Exam: other (AV fistula to LUE)
Skin Exam
Skin Exam: normal color and warm/dry
Psychiatric Exam
Psychiatric Exam: normal mood/affect
Course
<MARCEL Oconnell - Last Filed: 03/28/24 00:15>
Orders/Labs/Results
Orders:
Orders
03/27/24 21:31
ECG [Electrocardiogram (*1)] Urgent
Reason for Study: Chest Pain
EKG- Treatment ONCE
Chest [CR Chest - 2 Views ] Urgent
Comment:
Reason For Exam: chest pain x1 week
03/27/24 23:00
Lidocaine [Lidocaine 4% Patch] 1 patch TOPICAL NOW STA
Tramadol HCl [Ultram] 25 mg PO NOW STA
Vital Signs
Initial and Last Documented VS:
Initial Vital Signs
BP
130/86
03/27/24 21:30
Last Documented Vital Signs
Temp Pulse Resp BP Pulse Ox
98.1 F 88 18 142/99 92
03/27/24 21:32 03/27/24 22:45 03/27/24 22:45 03/27/24 23:01 03/27/24 21:32
<Sherly Brewer DO - Last Filed: 03/27/24 23:46>
Orders/Labs/Results
Orders:
Orders
03/27/24 21:31
ECG [Electrocardiogram (*1)] Urgent
Reason for Study: Chest Pain
EKG- Treatment ONCE
Chest [CR Chest - 2 Views ] Urgent
Comment:
Reason For Exam: chest pain x1 week
03/27/24 23:00
Lidocaine [Lidocaine 4% Patch] 1 patch TOPICAL NOW STA
Tramadol HCl [Ultram] 25 mg PO NOW STA
Vital Signs
Initial and Last Documented VS:
Initial Vital Signs
BP
130/86
03/27/24 21:30
Last Documented Vital Signs
Temp Pulse Resp BP Pulse Ox
98.1 F 88 18 142/99 92
03/27/24 21:32 03/27/24 22:45 03/27/24 22:45 03/27/24 23:01 03/27/24 21:32
<MARCEL Oconnell - Last Filed: 03/28/24 00:15>
MDM/Problems Addressed
Differential Diagnosis Includes:
rib fractures, chest contusions, PNA, MT
MDM/Problems Addressed:
34 year old male who presents with midsternal chest pain x1.5 weeks worsened this morning.
Chronic conditions affecting care: DM, HTN, Previous abdomnial surgery (appendectomy) and Kidney disease
<MARCEL Oconnell - Last Filed: 03/28/24 00:15>
*Critical Care Note
Total Time (30-74mins, 75-104mins- exclusive of procedures): Not Applicable
<Sherly Brewer DO - Last Filed: 03/27/24 23:46>
*Radiology
Radiology exam reviewed: preliminary read by ED provider (Chest x-ray shows large/stable right pleural effusion, stable cardiomegaly, no pneumothorax. Left lung field is clear.)
*Pulse Oximetry
Patient hypoxic: no
*EKG
Interpreted by ED Provider?: Yes
Comparison EKG: no changes (Unchanged from previous March 17)
Rate: normal
Rhythm: sinus
[place]: normal axis
Interval: normal interval
QRS Pattern: normal QRS
Ischemia: T-wave inversion (Flipped T waves laterally, similar and unchanged from previous)
ED Attending Note
<MARCEL Oconnell - Last Filed: 03/28/24 00:15>
-
Portions of this chart may have been created with voice recognition software.� Occasional wrong word or��sound alike� substitutions may have occurred due to the inherent limitations of voice recognition software.
<Sherly Brewer, DO - Last Filed: 03/27/24 23:46>
ED Attending Note
Patient seen and examined by attending physician: Yes
I performed the substantive portion of visit, reviewed & personally made and approve the management plan that is documented in note by myself or AVINASH.: Yes
I performed a history and physical exam of patient and discussed management with resident, I reviewed resident's note and agree with documented findings and plan of care.: Yes
ED Attending Note:
This is an unfortunate 34-year-old gentleman who has extensive past medical history including type 1 diabetes on insulin pump, diabetic nephropathy, end-stage renal disease on dialysis, chronic right-sided pleural effusion, chronic abdominal pain
related to gastroparesis, hypertension, severe pulmonary hypertension, alcohol use disorder, anxiety/depression.
There is a longstanding issues with chronic noncompliance and frequent ED visits, frequent hospitalizations, most recently March 13 until discharge yesterday March 26 for treatment of severe DKA stemming from insulin noncompliance. He suffered an
episode of cardiac arrest while in the ED, prompt ROSC with CPR, bicarbonate, calcium and epinephrine.
He was found to have a right lateral fourth rib fracture related to CPR and throughout his hospitalization complained of anterior chest pain thought to be related to CPR procedure.
He was recommended to go to skilled rehab versus acute inpatient alcohol rehab for which he declined.
He does have longstanding history of narcotic seeking issues. During this hospitalization his chest pain was treated with lidocaine patch and low-dose tramadol, 25 mg twice daily. No prescriptions provided upon discharge.
He did receive dialysis yesterday prior to discharge.
He presents via EMS tonight with complaints of ongoing anterior chest pain that is worse with deep breath and requesting something for pain. He denies cough, denies shortness of breath, no nausea nor vomiting, denies abdominal pain.
Insulin pump is in place and running.
Accu-Chek 300.
GENERAL: 34-year-old male appears much older than stated age, sitting upright on edge of stretcher, exhibits a moderately blunted affect but overall appears comfortable and in no acute distress.
EYE: pupils equal and reactive. anicteric
NECK: Supple, nontender, no meningismus, no significant adenopathy.
ENT: oral mucosa is moist. No rhinorrhea.
CARDIAC: Regular rate and rhythm. no murmur. Mild bilateral parasternal tenderness to palpation. Palpation seems to exactly reproduce patient's pain complaint. There is no crepitus nor palpable bony abnormality.
LUNGS: no acute respiratory distress, decreased breath sounds right base otherwise clear to auscultation.
ABDOMEN: Soft, nondistended, without focal tenderness, no r/g, no cvat. normoactive BS.
NEUROLOGICAL: Alert and oriented x3, no focal neuro deficits. Gait is steady.
SKIN: Warm and dry, mildly pale in color, skin intact. Scattered cuellar to brown macules bilateral lower extremities.
MUSCULOSKELETAL: Trace pitting edema bilateral lower extremities, peripheral pulses are full and equal b/l. No palpable tenderness.
PSYCH: Moderately blunted affect. Cooperative.
Concern for persistent chest wall pain related to CPR procedure during most recent hospitalization. Noted to have lateral right fourth rib fracture on chest x-ray during hospitalization. Clinical concern for additional anterior rib fractures but
physical exam is reassuring with no palpable bony abnormalities nor crepitus.
Chest x-ray shows a large right pleural effusion that is stable and unchanged from previous. Stable cardiomegaly. Left lung field is clear and there is no pneumothorax.
EKG shows normal sinus rhythm, flipped T waves laterally, similar and unchanged from previous.
He has history of pulmonary hypertension but no history of ischemic coronary artery disease.
Multiple unremarkable cardiac evaluations for chest pain complaints.
Currently patient appears stable and at his baseline.
He did suffer a recent rib fractures and I have agreed to offer a short course of low-dose tramadol along with lidocaine patch.
Patient agreeable with plan.
Encouraged to follow-up with PCP for recheck and encouraged to remain sober.
Discharge Plan
Departure
Patient Disposition: Home (Routine Discharge)
Date of Disposition: 03/27/24
Time of Disposition: 23:01
Patient with high blood pressure during this ER visit?: No
Condition: Good
Discharge Problem:
Anterior chest wall pain
Instructions: Costochondritis
Prescriptions:
New
tramadol 25 mg tablet
25 mg PO BIDPRN PRN (Reason: Pain) Qty: 8 0RF
No Action
furosemide 40 MG tablet
40 mg PO BID
carvedilol [Coreg] 25 MG tablet
25 mg PO BID
amlodipine 10 MG tablet
10 mg PO DAILY
metoclopramide HCl [Reglan] 10 mg Tablet
10 mg PO TIDPRN PRN (Reason: nausea)
oxcarbazepine 150 mg tablet
150 mg PO HS
trazodone 50 mg Tablet
25 mg PO HSPRN PRN (Reason: sleep)
Patient Own Insulin Pump
0 units SC .VIA PUMP
Patient Comments:
03/05/2024, pt. uses insulin pump; pt. states to use roughly 70 units of Novolog 100 unit/ml every day and replaces his insulin Q3D; pt. unsure when he lasted changed his insulin.
Referrals:
Casper Arroyo MD [Family Provider] - Call in 1-3 days for appt
Interventions
Interventions:
*Risk Screen - Suicide Last Done: 03/27/24 21:32
*General Assessment Last Done: 03/27/24 21:32
*Neglect/Abuse Screening Last Done: 03/27/24 21:32
ED- Fall Risk Assessment Last Done: 03/27/24 21:38
*ED COVID-19 Vaccine History Last Done: 03/27/24 21:32
*Nursing Disposition Last Done: 03/27/24 23:12
ED-Musculoskeletal Assessment Last Done: 03/27/24 22:56
Discharge Date and Time
Print Language: GAMBIAN
[2024-03-27 23:01] VITALS: BP 142/99
[2024-03-27] MEDS: ULTRAM 25 MG PO (23:05)
[2024-03-27] MEDS: LIDOCAINE 4% PATCH 1 PATCH TOPICAL (23:05)
== END 2024-03-27 23:12 | disposition home or self-care (01) ==
LOC: EMR 21:29
PROVIDERS: EMERGENCY PHYSICIAN Emergency Medicine; FAMILY PHYSICIAN Internal Medicine
DX: R07.89 Other chest pain (principal); R06.02 Shortness of breath; R05.9 Cough, unspecified; R10.9 Unspecified abdominal pain; J90 Pleural effusion, not elsewhere classified; I27.20 Pulmonary hypertension, unspecified; G89.29 Other chronic pain; I13.2 Hypertensive heart and chronic kidney disease with heart failure and with stage 5 chronic kidney disease, or end stage renal disease; I50.9 Heart failure, unspecified; E10.43 Type 1 diabetes mellitus with diabetic autonomic (poly)neuropathy; E10.22 Type 1 diabetes mellitus with diabetic chronic kidney disease; N18.6 End stage renal disease; Z91.199 Patient's noncompliance with other medical treatment and regimen due to unspecified reason; F32.A Depression, unspecified; F41.9 Anxiety disorder, unspecified; F17.200 Nicotine dependence, unspecified, uncomplicated; Z99.2 Dependence on renal dialysis; Z79.4 Long term (current) use of insulin; Z96.41 Presence of insulin pump (external) (internal); Z86.74 Personal history of sudden cardiac arrest; Z91.013 Allergy to seafood
CPT/HCPCS: 99283; 71046; 93005

== ENCOUNTER 2024-03-31 01:45 | Inpatient (IN) | payer OTHER, SELFPAY ==
[2024-03-30 20:41] VITALS: BMI 24.2
[2024-03-30 20:43] VITALS: BP 101/50
--- NOTE | 2024-03-30 22:01 | ED.GENMED ---
Addendum entered and electronically signed by Clinton Holloway DO 04/02/24 07:18:
30 minutes CC time
Original Note:
History of Present Illness
General
Chief Complaint: Chest Problem
Source: patient, records and previous radiology exam
Exam Limitations: none
Time Seen by Provider: 03/30/24 21:31
Nursing documentation reviewed up to this point in time: agreed with
Travel History
Have you had any contact with someone who has COVID-19?: No
Do you have any symptoms of coronavirus? Fever > 100 degrees, chills, cough, shortness of breath, sore throat, loss of taste or smell, muscle aches, or headache?: No
History of Present Illness
History of Present Illness:
34-year-old male presents with left chest pain onset 3 to 4 days ago history of diabetes ESRD he went to dialysis today as scheduled at [facility] apparently was admitted last week after cardiac arrest underwent CPR had a rib fracture seen in the ER
few nights ago by Dr. Brewer worked up discharged home, patient is requesting stronger pain medication states tramadol is not working
Past History
Past History
ED Past Medical History: CHF, HTN, IDDM, Renal failure (Dialysis M-W-F) and Other (ESRD, PE, Contipation, ESRD, TR, pulmonary hypertension, congestive heart failure, etc. chronic abdominal pain/gastroparesis)
ED Past Surgical History: Appendectomy and Other (Left AV fistula, biliary drain removed)
Patient has exhibited threatening behavior?: No
PSI?: No
Social History
Tobacco: Smoker
Alcohol: None
Drug: None
Personal: Single
Living: with family
Employment: Other
Family History
Family History: Other
Review of Systems
Review of Systems
All Other Systems: Not applicable
Constitutional: Denies fever
Respiratory: Reports trouble breathing
Cardiac: Reports chest pain
Phy Exam
Physical Exam
Physical Exam:
Physical Exam
General: 34 male looks older than stated age nontoxic-appearing
Neck: No jaundice
Heart: s1/s2 regular rate and rhythm, no murmur. equal radial pulses.
Lungs: no acute respiratory distress. clear bilaterally point tender in the left mid anterior chest wall
Neuro: alert and oriented. no focal neurological deficits
Skin: no rash
Psychiatric: well kept. interactive and cooperative
Extremities: Trace edema
Course
Orders/Labs/Results
Orders:
Orders
03/30/24 20:48
Electrocardiogram (*1) Urgent
Reason for Study: Chest Pain
03/30/24 20:49
EKG- Treatment ONCE
03/30/24 21:54
CR Chest - 2 Views Urgent
Comment:
Reason For Exam: cp
03/30/24 22:17
CMP [Comprehensive Metabolic Panel] Urgent
Complete Blood Count/With Diff Urgent
Prothrombin Time Urgent
Troponin I Urgent
03/31/24 00:10
Acetaminophen 1000MG/100Ml [Ofirmev] 1,000 mg in 100 ml IV ONCE
Acetaminophen IV Indication:: No IN & No Enteral Access
03/31/24 00:37
Calcium Gluconate 1 gram/100mL [Calcium Gluconate] 1 gram in 100 ml IV ONCE
Insulin Human Regular [Novolin R] 5 units IV NOW STA
Sps Sodium Polystyrene Sulfon [Kayexalate Suspension] 30 grams PO NOW STA
03/31/24 00:40
Add On- LAB Urgent
Tests Added?: Beta-hydroxybutyrate
03/31/24 00:45
Reg Insulin 100 Units/100 ml [Novolin R Insulin Infusion] 100 units in 100 ml IV ORDERED RATE
Abnormal Lab Results
03/30/24 03/31/24
22:03 00:09
Sodium 132 L mmol/L
(135-145)
Potassium 6.2 H* mmol/L
(3.5-5.1)
Chloride 96 L mmol/L
(98-107)
Carbon Dioxide 8 L* mmol/L
(22-30)
BUN 59 H mg/dl
(9-20)
Creatinine 7.9 H* mg/dL
(0.7-1.3)
Glucose 315 H mg/dl
(70-99)
POC Glucose 305 H mg/dl
(70-99)
03/31/24 00:09
Vital Signs
Initial and Last Documented VS:
Initial Vital Signs
Temp Pulse Resp BP Pulse Ox
99.4 F 86 26 101/50 95
03/30/24 20:43 03/30/24 20:43 03/30/24 20:43 03/30/24 20:43 03/30/24 20:43
Last Documented Vital Signs
Temp Pulse Resp BP Pulse Ox
99.4 F 86 26 101/50 96
03/30/24 20:43 03/30/24 20:43 03/30/24 20:43 03/30/24 20:43 03/30/24 23:15
MDM/Problems Addressed
Differential Diagnosis Includes:
Muscle strain pneumothorax rib fracture costochondritis pleurisy--- clearly reproducible pain doubt ACS or pneumonia
MDM/Problems Addressed:
Chest pain
Chronic conditions affecting care: DM and Kidney disease
Acute Exacerbation and/or Progression of Chronic Illness: DM and Kidney disease
*Radiology
Radiology exam reviewed: preliminary read by ED provider
*Pulse Oximetry
Patient hypoxic: no
*EKG
Interpreted by ED Provider?: Yes
Interpretation: abnormal
Comparison EKG: no comparison EKG present
Heart Rate: 68
Rhythm: sinus
Ischemia: non-specific ST changes
*Crotch Breaker Interpretation
Rate: normal
Interpretation: normal
Heart Rate: 68
Rhythm: sinus
*Critical Care Note
Total Time (30-74mins, 75-104mins- exclusive of procedures): Not Applicable
Data Reviewed
Review of Other/Old Records Reveals: Labs, Records, Radiology Studies and Discharge Summary
Source: patient
Update Note
Update Note:
Update patient subjectively dyspneic does have an effusion no obvious pneumothorax,
1240 labs are noted does have hyperkalemia increased anion gap with beta hydroxybutyrate started on Kayexalate insulin calcium
ED Attending Note
-
Portions of this chart may have been created with voice recognition software.� Occasional wrong word or��sound alike� substitutions may have occurred due to the inherent limitations of voice recognition software.
Discharge Plan
Departure
Patient Disposition: Admit
Date of Disposition: 03/31/24
Time of Disposition: 00:41
Admit to: ICU
Presentation/result/management discussed w/ accepting MD/DO: Hospitalist
Patient with high blood pressure during this ER visit?: No
Condition: Fair
Discharge Problem:
Pleural effusion, Acute hyperglycemia, Chest pain, CHF (congestive heart failure), Acute hyperkalemia
Prescriptions:
No Action
furosemide 40 MG tablet
40 mg PO BID
carvedilol [Coreg] 25 MG tablet
25 mg PO BID
amlodipine 10 MG tablet
10 mg PO DAILY
metoclopramide HCl [Reglan] 10 mg Tablet
10 mg PO TIDPRN PRN (Reason: nausea)
oxcarbazepine 150 mg tablet
150 mg PO HS
trazodone 50 mg Tablet
25 mg PO HSPRN PRN (Reason: sleep)
Patient Own Insulin Pump
0 units SC .VIA PUMP
Patient Comments:
03/05/2024, pt. uses insulin pump; pt. states to use roughly 70 units of Novolog 100 unit/ml every day and replaces his insulin Q3D; pt. unsure when he lasted changed his insulin.
tramadol 25 mg tablet
25 mg PO BIDPRN PRN (Reason: Pain) Qty: 8 0RF
Referrals:
Casper Arroyo MD [Family Provider] -
Interventions
Interventions:
*Risk Screen - Suicide Last Done: 03/30/24 20:43
*General Assessment Last Done: 03/30/24 22:56
*Neglect/Abuse Screening Last Done: 03/30/24 20:43
ED- Fall Risk Assessment Last Done: 03/30/24 22:56
ED- Cardiac Assessment Last Done: 03/30/24 22:56
ED- Pulmonary Assessment Last Done: 03/30/24 22:56
Discharge Date and Time
Print Language: YI
[2024-03-30 22:03] LABS: Glucose - Point of Care 305 mg/dl (70-99)
[2024-03-31] VITALS (46 sets, daily range): BP systolic 72–144; BP diastolic 33–90; BMI 23.2; BMI 24.2
[2024-03-31] MEDS: OFIRMEV 100 IV ×2 (00:30→20:50)
[2024-03-31 00:32] LABS: ALT (SGPT) 15 U/L (0-50); AST (SGOT) 21 U/L (17-59); Albumin 3.7 g/dl (3.5-5.0); Alkaline Phosphatase 126 U/L (38-126); Blood Urea Nitrogen 59 mg/dl (9-20); Calcium 9.7 mg/dl (8.4-10.2); Carbon Dioxide 8 mmol/L (22-30); Chloride 96 mmol/L (98-107); Glucose 315 mg/dl (70-99); Potassium 6.2 mmol/L (3.5-5.1); Sodium 132 mmol/L (135-145); Total Bilirubin 1.1 mg/dl (0.2-1.3); Total Protein 6.6 g/dl (6.3-8.2); eGFR 8.53
[2024-03-31 00:38] LABS: % Basophils 0.6 % (0-2); % Eosinophils 0.2 % (0-6); % Immature Granulocytes 1.8 % (0-0.5); % Monocytes 6.9 % (1.7-9.3); % Neutrophils 80.5 % (42.2-75.2); Absolute Basophils 0.1 10^3/uL (0-0.2); Absolute Immature Granulocytes 0.2 10^3/uL (0-0.05); Absolute Lymphocytes 1.1 10^3/uL (1.2-3.4); Absolute Monocytes 0.7 10^3/uL (0.1-0.6); Absolute Neutrophils 8.5 10^3/uL (1.4-6.5); Hematocrit 30.4 % (39.0-52.0); Hemoglobin 9.9 g/dL (13.0-18.0); Mean Corp Hgb Conc. 32.6 g/dL (33.0-37.0); Mean Corpuscular Hgb 31.1 pg (27.0-31.0); Mean Corpuscular Volume 95.6 fL (80.0-94.0); Mean Platelet Volume 10.5 fL (7.4-10.4); Nucleated Red Blood Cells % 0 % (-); Platelet Count 359 10^3/uL (130-400); Red Blood Cell Count 3.18 10^6/uL (4.70-6.10); Red Cell Dist. Width 17.7 % (11.5-14.5); White Blood Cell Count 10.6 10^3/uL (4.8-10.8)
[2024-03-31 00:40] LABS: Troponin I 0.023 ng/ml
[2024-03-31] MEDS: KAYEXALATE SUSPENSION 30 GRAMS PO (00:54)
[2024-03-31] MEDS: CALCIUM GLUCONATE 100 IV (00:54)
--- NOTE | 2024-03-31 01:10 | HPS.HSE ---
Family Physician
-
Family Physician: Casper Arroyo
Chief Complaint
-
CP wants strong pain meds
History of Present Illness
34M HX ESRD on MWF HD , IDDM on pump , DKA, non complaice , HX many AMAs, ETOH use disorder was left AMA on 03/26/24 from following admission for PEA arrest, rib fx s/p CPR, DKA, aute hypoxic RF, chr abdominal pain, recurrent right pleural
effusion pw mid CP amd SoB
CP
- at mid sternum
- known rib Fxs s/p CPR during PEA arest
- requesting strong pain meds states tramadol is not working
SoB
- received HD at [facility] yesterday ???
Medical History
Past Medical History
Past Medical History: Reports Other
Additional Past Medical History:
IIDM insulin pump
diabetic nephropathy
ESRD on MWF HD
Right-sided pleural effusion
Chronic abdominal pain secondary to gastroparesis
Hypertension
Severe pulmonary hypertension,
Alcohol use disorder,
Anxiety/depression
HX noncompliance with medications and hemodialysis
Past Surgical History: Reports Other
Additional Past Surgical History:
LUE AVF
Appendectomy
PD Catheter placed / removed
Social History
Tobacco: Smoker
Alcohol: Occasional
Living: With Family
Family History
Family History: Not pertinent
Allergies / Home Medications
Allergies reflects when Allergies were last updated in [facility].
Home Medications with original date entered in [facility]
Allergy/Medication List:
Allergies
Allergy/AdvReac Type Severity Reaction Status Date / Time
shellfish derived Allergy Hives Verified 03/30/24 20:47
Home Medications
amlodipine 10 mg tablet 10 mg PO DAILY Blood pressure 04/22/21
carvedilol 25 mg tablet (Coreg) 25 mg PO BID Blood pressure 04/22/21
furosemide 40 mg tablet 40 mg PO BID Fluid retention/Swelling 04/22/21
metoclopramide HCl 10 mg tablet (Reglan) 10 mg PO TIDPRN PRN nausea 04/07/23
oxcarbazepine 150 mg tablet 150 mg PO HS 07/24/23
trazodone 50 mg tablet 25 mg PO HSPRN PRN sleep 01/05/24
Patient Own Insulin Pump 0 units SC .VIA PUMP diabetes 02/13/24
tramadol 25 mg tablet 25 mg PO BIDPRN PRN Pain #8 tabs 03/27/24
Review of Systems
-
Constitutional: Reports No Symptoms
EENT: Reports No Symptoms
Respiratory: Reports Trouble Breathing
Cardiac: Reports Chest Pain
Abdomen/GI: Reports Abdominal Pain
: Reports No Symptoms
Musculoskeletal: Reports No Symptoms
Skin: Reports No Symptoms
Neurological: Reports No Symptoms
Endocrine: Reports No Symptoms
Hematologic/Lymphatic: Reports No Symptoms
Psych: Reports No Symptoms
Physical Exam
Vital Signs
Vital Signs
Temp Pulse Resp BP Pulse Ox
99.4 F 86 26 101/50 96
03/30/24 20:43 03/30/24 20:43 03/30/24 20:43 03/30/24 20:43 03/30/24 23:15
Physical Exam
General: Appears Chronically Ill and Other (SoB with minimal exertion )
HEENT: Anicteric and Moist mucous membranes
Respiratory: Clear
Cardiac: S1/S2 and Regular Rhythm
Breast: Deferred by me
GI: Soft, Non Tender, Non Distended and Normal Bowel Sounds
Rectal: Deferred by Provider
Genito-urinary: Deferred by me
Musculoskeletal: Edema, Left Lower Extremity, Edema, Right Lower Extremity and Other (LUE AVF )
Skin: Warm, Dry and Other (LUEx AVF )
Neuro: AO x 3
Psych: Calm
Laboratory Results
-
03/31/24 00:09
03/31/24 00:09
Laboratory Results
Total Bilirubin 1.1 mg/dl (0.2-1.3) 03/31/24 00:09
AST 21 U/L (17-59) 03/31/24 00:09
ALT 15 U/L (0-50) 03/31/24 00:09
Alkaline Phosphatase 126 U/L (38-126) 03/31/24 00:09
Troponin I 0.023 ng/ml 03/31/24 00:09
Data Reviewed
-
Medical Tests (Nuc Med, Echo, EKG etc): Report Reviewed by me
Lab Data: Labs Reviewed by me
Old Records: Reviewed
Impression/Plan
-
Reviewed VS: T 99.4 HR 86 BP 140/100 --> 100/50 RR26 POx 96
Data
CBC pending
Na 132
K 6.2
Cl 96
CO2 8
BG315
AG 28
Cr 7.9
EKG
NSR
NOS T wave
03/30 CXR pending report
03/27/24 CXR
Moderate right pleural effusion with associated atelectasis and/or pneumonia, slightly improved.
03/15/24 TTE
LVEF 60-65
Dilated hypokinetic RV
mild to mod TR
PHT
Last hospitalist admission: 03/13/24 - 03/26/24 left AMA
Principal Dxs
Cardiac arrest
Acute hypoxic respiratory failure
Dysphagia
Hypokalemia
Hyperphosphatemia
Shock
Diabetes mellitus type 1 with diabetic ketoacidosis
Alcohol abuse
Noncompliance with medication and hemodialysis
Acute nonischemic myocardial injury
Delirium
Atrial fibrillation rapid ventricular response status post conversion to normal sinus rhythm
ASSESSMENT & PLAN
DKA suspect non compliance, doubt using pump
AG met acidosis @28
Associated severe hyperkalemia
- S/P Calcium gluconate . Insulin 5 unit , Na polysterene
- check BHB
- agree with Insulin gtt and f/u gap acidosis
- BMP and K per DKA protocol
- DM INFORMATION SYSTEMS COORDINATOR consult
Vole expanded suspect missed HD
ESRD on MWF HD
- Renal consult for HD
Severe metabolic acidosis DKA and plus or minus missed HD ?
HX missing hemodialysis sessions.
CP due to rib Fx
- IV Dilaudid 0.25 mg x 1
- Lidoderm patch
In NSR
HX Prx AF
Not long-term anticoagulation candidate given known noncompliance
Severe ETOH use disorder
- ETOH WD protocol
Chronic abdominal pain associated with nausea and vomiting likely secondary to gastroparesis
- clean and ADAT
Recurrent right pleural effusion
-Volume removal per HD
ACDz of ESRD
Essential hypertension
- EXECUTIVE ASSISTANT Coreg and Norvasc
Severe pulmonary hypertension
Anxiety/depression
- Cont oxcarbazepine
Tobacco dependence/severe drug-seeking behavior
- Smokes half pack of cigarettes per day
Significant PMHX noncompliance with medications and hemodialysis
DVT Px: SCD
Code: Full
ICU
[2024-03-31] MEDS: NOVOLIN R INSULIN INFUSION 100 IV (01:16)
[2024-03-31] MEDS: DILAUDID 0.25 MG IV ×3 (01:42→22:55)
[2024-03-31 02:22] LABS: Glucose - Point of Care 336 mg/dl (70-99)
--- NOTE | 2024-03-31 02:30 | PTCARENOTE ---
rec'd patient. insulin gtt infusing. BGM upon arrival to room 336. DKA protocol followed for gtt. medicated with one time dose of Dilaudid for 10/10 CP in ER before arrival. pt drowsy but arousable to voice. oriented x3. SR on monitor. on 2L NC,
denies SOB at this time. lungs CTA. 1800 kaye diet ordered. urinal at bedside. 24g PIV x2 in R arm. L arm fistula noted, LUE restriction band placed. repeat labs due at 0400, VAT aware, pt extremely difficult stick. call luevano within reach. care
ongoing.
[2024-03-31 03:11] LABS: Glucose - Point of Care 310 mg/dl (70-99)
[2024-03-31 04:03] LABS: Hematocrit 26.6 % (39.0-52.0); Hemoglobin 8.7 g/dL (13.0-18.0); Mean Corp Hgb Conc. 32.7 g/dL (33.0-37.0); Mean Corpuscular Hgb 30.6 pg (27.0-31.0); Mean Corpuscular Volume 93.7 fL (80.0-94.0); Mean Platelet Volume 10.3 fL (7.4-10.4); Platelet Count 256 10^3/uL (130-400); Red Blood Cell Count 2.84 10^6/uL (4.70-6.10); Red Cell Dist. Width 17.5 % (11.5-14.5); White Blood Cell Count 10.5 10^3/uL (4.8-10.8)
[2024-03-31 04:08] LABS: INR 1.68; PT 19.7 Sec (11.4-14.6)
[2024-03-31 04:31] LABS: Glucose - Point of Care 294 mg/dl (70-99)
[2024-03-31 04:33] LABS: Blood Urea Nitrogen 62 mg/dl (9-20); Calcium 9.3 mg/dl (8.4-10.2); Carbon Dioxide 10 mmol/L (22-30); Chloride 98 mmol/L (98-107); Estimated Creatinine Clearance 12 ml/min; Glucose 282 mg/dl (70-99); Potassium 5.2 mmol/L (3.5-5.1); Sodium 132 mmol/L (135-145)
--- NOTE | 2024-03-31 04:51 | PTCARENOTE ---
pt reassessed. c/o 06/12 CP again, ICU SPEECH [facility]ANG PATH THERAPIST notified, one time dose of dilaudid ordered. AM labs sent by VAT. insulin gtt continues per DKA protocol. pt turning self in bed.
[2024-03-31 05:23] LABS: Glucose - Point of Care 251 mg/dl (70-99)
--- NOTE | 2024-03-31 06:19 | PTCARENOTE ---
Addendum entered by Kimberly Sullivan RN 03/31/24 06:38:
maira WRIGHT d/c fluid order due to patient being on HD and Cr 8.0.
Original Note:
maira WRIGHT contacted to order IVF per DKA protocol. last BGM 206.
[2024-03-31 06:25] LABS: Glucose - Point of Care 206 mg/dl (70-99)
--- NOTE | 2024-03-31 07:15 | PTCARENOTE ---
Received pt laying in bed. He appears ill. Asking for pain medications for chest pain. He stated he had a rib fracture. +pulses. Knee- Hi scd's off, Pt refuses to wear them. Right knuckle#24g protective catheter flushed and patent. Right inner wrist
#24g protective catheter with Insulin drip per DKA protocol. He has a wrist split due to positional catheters. Lungs dim in the bases. +BSX4. S/P BM and urinated in bathroom. Scattered scabs on his U/E's. Safe environment maintained. Will continue
to monitor.
[2024-03-31 07:25] LABS: Glucose - Point of Care 175 mg/dl (70-99)
--- NOTE | 2024-03-31 08:58 | CON.INTV ---
Consultation
Consultation Request
Date/Time Consultation Requested: 03/31/2024212
Date/Time Consultation Performed: 03/31/2024 - 0850
Requesting Provider: Dr. Rodriguez
Performing Provider: Dr. Moses
Reason for Consultation: DKA
Medical History
-
Chief Complaint: Chest pain
History of Present Illness:
34-year-old male with a past medical history of ESRD on HD MWF, insulin-dependent diabetes mellitus on subcutaneous insulin pump, recurrent DKA with insulin noncompliance, chronic right-sided pleural effusion (since 04/2023), hypertension, pulmonary
hypertension, alcohol use disorder, history of cardiac arrest earlier this month (March 2024), and history of tobacco use disorder/polysubstance abuse who presents with mid sternal chest pain and shortness of breath + cough. He also presented with
similar complaints 3 days prior. He was afebrile in the ER to 99.4 �F, tachypnea to 26 breaths/min, BP 101/50, saturating 95% on room air with heart rate 86 bpm. Labs significant for Hb 8.7, serum bicarbonate level of 10, initial AG of 24, glucose
of 282, negative troponin of 0.023, and a beta hydroxybutyrate level of 6.4. POCT was as high as 310. Blood cultures were collected. And CXR showed a moderate right-sided pleural effusion with possible right lower lobe airspace disease. He was
given calcium gluconate, Dilaudid 0.25 mg IV x 1, IV Tylenol and started on insulin drip and transferred to the ICU for further care. Critical care services now consulted for additional management/recommendations.
When I saw the patient he was in bed, dialysis was being started. He endorses chest pain that is continuing. Current BP 115/86, heart rate 81 and saturating 95% on room air. He says his chest pain feels sharp and in the middle of his chest. I
asked if he has been feeling this since he did have recent chest compressions and he said 'I do not think so.' He continues to be on the insulin drip. No additional IVF are being run at the time of my evaluation. He denies SOB, headache,
abdominal pain, nausea, fevers or chills.
PMHx: ESRD on HD MWF, insulin-dependent diabetes mellitus with subcutaneous insulin pump, recurrent DKA with insulin noncompliance, chronic right-sided pleural effusion since April 2023, hypertension, pulmonary hypertension, alcohol use disorder,
anxiety/depression, history of cardiac arrest (March 2024), history of polysubstance abuse, and tobacco use disorder, chronic HFpEF, history of MRSA
PSHx: LUE AVF, appendectomy, PD catheter placement with subsequent removal, biliary tube placement (May 2023)
Past Medical History
Past Medical History: Other (Above as per HPI)
Past Surgical History: Other (Above as per HPI)
Social History
Tobacco: Smoker
Alcohol: Occasional
Drug: Other (History of polysubstance abuse)
Family History
Family History: Reviewed & Not Pertinent
Allergies / Home Medications
Allergies
Allergy/AdvReac Type Severity Reaction Status Date / Time
shellfish derived Allergy Hives Verified 03/30/24 20:47
Home Medications
�Medication �Instructions �Recorded �Confirmed �Last Taken �Type
amlodipine 10 mg tablet 10 mg PO DAILY Blood pressure 04/22/21 03/19/24 03/04/24 History
carvedilol 25 mg tablet (Coreg) 25 mg PO BID Blood pressure 04/22/21 03/19/24 03/04/24 History
furosemide 40 mg tablet 40 mg PO BID Fluid 04/22/21 03/19/24 03/04/24 History
retention/Swelling
metoclopramide HCl 10 mg tablet 10 mg PO TIDPRN PRN nausea 04/07/23 03/19/24 01/04/24 History
(Reglan)
oxcarbazepine 150 mg tablet 150 mg PO HS 07/24/23 03/19/24 01/04/24 History
trazodone 50 mg tablet 25 mg PO HSPRN PRN sleep 01/05/24 03/19/24 01/04/24 History
Patient Own Insulin Pump 0 units SC .VIA PUMP diabetes 02/13/24 03/19/24 03/05/24 History
tramadol 25 mg tablet 25 mg PO BIDPRN PRN Pain #8 tabs 03/27/24 Unknown Rx
Review of Systems
-
History Source: Patient
All other systems: Negative unless noted
Vitals / Labs / Diagnostic Testing
Vital Signs
Temp Pulse Resp BP Pulse Ox
97.8 F 87 16 109/74 93
03/31/24 07:37 03/31/24 07:00 03/31/24 07:00 03/31/24 07:00 03/31/24 07:27
Lab Data
03/31/24 03:46
Laboratory Results
03/31/24 03/31/24
00:06 03:46
PT Cancelled 19.7 H
INR Cancelled 1.68
Diagnostic Testing:
Physical Exam
-
HEENT: Normocephalic and Anicteric
Cardiovascular: S1/S2 and Peripheral Edema (Trace ROSE MARY (L >R))
Respiratory: Wheeze (Negative), Rales (Right base), Rhonchi (Negative) and Non-Labored Respirations
GI: Soft, Non Distended and Non Tender
Neurology: Awake and Alert
Skin: Warm and Dry
General: Comfortable and Fever (negative)
Assessment
-
Assessment: 34-year-old male with a past medical history of ESRD on HD MWF, insulin-dependent diabetes mellitus on subcutaneous insulin pump, recurrent DKA with insulin noncompliance, chronic right-sided pleural effusion (since 04/2023),
hypertension, pulmonary hypertension, alcohol use disorder, history of cardiac arrest earlier this month (March 2024), and history of tobacco use disorder/polysubstance abuse who presents with mid sternal chest pain and shortness of breath + cough.
He also presented with similar complaints 3 days prior. He was afebrile in the ER to 99.4 �F, tachypnea to 26 breaths/min, BP 101/50, saturating 95% on room air with heart rate 86 bpm. Labs significant for Hb 8.7, serum bicarbonate level of 10,
initial AG of 24, glucose of 282, negative troponin of 0.023, and a beta hydroxybutyrate level of 6.4. POCT was as high as 310. Blood cultures were collected. And CXR showed a moderate right-sided pleural effusion with possible right lower lobe
airspace disease. He was given calcium gluconate, Dilaudid 0.25 mg IV x 1, IV Tylenol and started on insulin drip and transferred to the ICU for further care. Critical care services now consulted for additional management/recommendations.
Chronic conditions [employer]: ESRD on HD MWF, insulin-dependent diabetes mellitus with subcutaneous insulin pump, recurrent DKA with insulin noncompliance, chronic right-sided pleural effusion since April 2023, hypertension, pulmonary hypertension, alcohol
use disorder, anxiety/depression, history of cardiac arrest (March 2024), history of polysubstance abuse, and tobacco use disorder, chronic HFpEF, history of MRSA
Impression:
#DM type II complicated by DKA
#Chest pain - appears musculoskeletal, and likely related to his acute fractures involving his right third through fifth ribs seen on CT chest from today; possibly being contributed by his pericardial effusion (?pericarditis)
#ESRD on HD MWF (of note he still continues to make urine once a day)
#Alcohol use disorder
#Anemia
#Recent cardiac arrest (March 2024)
#Tobacco use disorder
#Chronic HFpEF
#Chronic right-sided pleural effusion (present since April 2023)
Plan:
- Continue insulin drip with q1�2-hour POCT BG, avoid hypoglycemia with dextrose administration if needed, and start D5�half-normal with potassium given BG is now <250
- Once AG is closed x 2 (AG <12), with serum bicarbonate >18 and BG <200, wean off of insulin drip either by restarting his subcutaneous insulin pump, or by administering a basal dose of Lantus equaling approximately 0.3 units of last 24 hrs worth
of total insulin requirements; adjust as needed for Hx of ESRD as insulin will be more likely to cause hypoglycemia in this patient population
- MSAS; thiamine, folate and MVN
- He is getting HD today in the room - try to challenge his UF removal given his large right-sided pleural effusion and small left-sided pleural effusion
- Pain control
- Given the patient's chest pain, a CTA of the chest was done which ruled out a PE, however a moderate pericardial effusion was revealed with acute fractures in the right involving his right third�fifth ribs. He will go to IR for pericardiocentesis
-Would hold off on antibiotics at this time. I personally reviewed the patient's CTA chest and it appears that he has right lower lobe compressive atelectasis and I am not fully convinced this is a consolidation. He has no evidence of
leukocytosis, and remains afebrile. Continue to trend WBC and fever curve and if he spikes a fever, consider starting broad-spectrum antibiotics at that time.
- Nicotine patch recommended
- Maintain SpO2 >90-94%
- Maintain MAP>65
- Replete electrolytes with K>4, Mg>2
- Maintain euglycemia with goal BG 140-180
- prn nebulized bronchodilators
- Incentive spirometer encouraged
- DVT ppx
Critical care statement: A total of 40 minutes of critical care time was provided for this patient today. This includes management of unstable vital signs, evaluation of the patient at bedside, reviewing the patient's pertinent medical records
including radiographs, microbiology, laboratory evaluations, and discussion with primary team, consultants, pharmacy, nutrition, physical therapy, case management, charge nurse, critical care nursing, and respiratory therapy.
Data:
CTA Chest 03-31-2024:
1. No evidence of pulmonary embolism or thoracic aortic dissection.
2. Moderate pericardial effusion, measuring up to 1.9 cm in thickness.
3. Moderate right pleural effusion. Airspace consolidation at the right lung base which may represent subsegmental atelectasis or pneumonia.
4. Small left pleural effusion. Mild left basilar airspace consolidation.
5. Acute fractures involving the right third through fifth ribs near the mid axillary line.
6. Wedge-shaped areas of hypoenhancement within the spleen, which are new compared to prior abdominal pelvic CT dated 02/22/2024, likely representing splenic infarcts.
7. Dilated tortuous venous structure within the left retropectoral axillary region, partially imaged on the current study, of unknown etiology. Consider venous ultrasound of the left upper extremity for further characterization.
CR 03-30-2024:
1. Moderate right pleural effusion, unchanged compared to prior chest x-ray.
2. Right lower lobe airspace disease may also be present.
--- NOTE | 2024-03-31 08:58 | W.CON.NEPH ---
Consultation
-
Date/Time Consultation Requested: March 31, 2024 9 AM
Date/Time Consultation Performed: 07/01/2024 9 AM
Requesting Provider: Dr Kate
Performing Provider: Dr. Lindsey
Reason for Consultation: ESRD
Medical History
-
Chief Complaint: End-stage renal
History of Present Illness:
The patient is a 34-year-old man with diabetes mellitus type 1 on insulin, blindness, and end-stage renal disease on hemodialysis. He was recently in the hospital just last week. The course was complicated by a systolic cardiac arrest requiring
intubation. He did improve but then left AGAINST MEDICAL ADVICE on March 26. He returned to the emergency room on March 27 with midsternal chest pain. He received tramadol and a lidocaine patch and left the ER. Apparently he had gone to dialysis on
Friday and was found to be hypotensive he was sent to [facility]. There he says he was admitted to the ICU for hypotension but was only placed on observation. His blood pressure improved and he was discharged. He is uncertain whether not
he left AGAINST MEDICAL ADVICE. He comes the emergency room yesterday at [facility] complaining of again midsternal chest pain and shortness of breath. He was noted to be hypotensive and was admitted. He is now in the ICU. He is currently
critically ill with hypotension. We are asked to assist with management of his dialysis. He does have a significant acidosis and there was concern of DKA. He is now on insulin drip.
Past Medical History
end-stage renal disease on hemodialysis
PE
constipation
CHF
pleural effusions
depression/ anxiety
polysubstance abuse
Diabetes mellitus type I
Left upper extremity AV fistula
Pulmonary hypertension
Past Surgical History: Other (LUE AVF Appendectomy PD Catheter placed / removed)
Social History
Tobacco: Smoker
Alcohol: Occasional
Drug: Other (h/o polysub abuse)
Family History
Family History: Not Pertinent
Allergies / Home Medications
Allergy/AdvReac Type Severity Reaction Status Date / Time
shellfish derived Allergy Hives Verified 03/30/24 20:47
�Medication �Instructions �Recorded �Confirmed �Type
amlodipine 10 mg tablet 10 mg PO DAILY Blood pressure 04/22/21 03/19/24 History
carvedilol 25 mg tablet (Coreg) 25 mg PO BID Blood pressure 04/22/21 03/19/24 History
furosemide 40 mg tablet 40 mg PO BID Fluid 04/22/21 03/19/24 History
retention/Swelling
metoclopramide HCl 10 mg tablet 10 mg PO TIDPRN PRN nausea 04/07/23 03/19/24 History
(Reglan)
oxcarbazepine 150 mg tablet 150 mg PO HS 07/24/23 03/19/24 History
trazodone 50 mg tablet 25 mg PO HSPRN PRN sleep 01/05/24 03/19/24 History
Patient Own Insulin Pump 0 units SC .VIA PUMP diabetes 02/13/24 03/19/24 History
tramadol 25 mg tablet 25 mg PO BIDPRN PRN Pain #8 tabs 03/27/24 Rx
Review of Systems
-
Currently no pain or shortness of breath.
All other systems: Negative unless noted
Physical Exam
Vital Signs
Vital Signs
Temp Pulse Resp BP Pulse Ox
97.8 F 87 16 109/74 93
03/31/24 07:37 03/31/24 07:00 03/31/24 07:00 03/31/24 07:00 03/31/24 07:27
Lab Results
WBC 10.5 10^3/uL (4.8-10.8) 03/31/24 03:46
RBC 2.84 10^6/uL (4.70-6.10) L 03/31/24 03:46
Hgb 8.7 g/dL (13.0-18.0) L 03/31/24 03:46
Hct 26.6 % (39.0-52.0) L 03/31/24 03:46
Plt Count 256 10^3/uL (130-400) D 03/31/24 03:46
eGFR Cancelled 03/31/24 18:00
Albumin 3.7 g/dl (3.5-5.0) 03/31/24 00:09
Physical Exam
Patient is awake alert oriented and in no distress. Mood and affect were pleasant, insight and judgment were good. Pupils are equal round and reactive to light, extraocular movements are intact, sclera were anicteric. Hearing was normal, ears and
nose are intact. Oropharynx was clear. Neck was supple with trachea midline and no thyromegaly. Heart was regular rate and rhythm without rubs. Lower extremities without edema. Lungs were clear to auscultation bilaterally and with normal
excursion. Abdomen was soft, nontender, with normal active bowel sounds, and no hepatosplenomegaly. Skin was without rash and with normal turgor. AV fistula in the left upper arm was with good thrill and bruit
Data Reviewed
-
Radiology: Image Personally Visualized and interpreted (Chest x-ray on Mar 30 2024 by my reading shows moderate right effusion unchanged, cardiomegaly)
Medical Tests (Nuc Med, Echo etc): Image Personally Visualized and interpreted (EKG on March 30, 2024 by my reading shows normal sinus rhythm nonspecific T wave abnormalities and prolonged QT)
Labs: Labs Reviewed by me (Hemoglobin 8.7, creatinine 8.0, bicarbonate 10, potassium 5.2, sodium 132, glucose 282)
Assessment/Plan
-
Impression:
Status post PEA/Asystole 03/13/24
PAF : briefly after code on 03/13/24
Metabolic acidosis
Chronic noncompliance with dialysis
ESRD MWF ([facility]),
left UE AVF
DKA hx/metabolic acidosis
Hyperkalemia
Hyponatremia
Chronic Abdominal Pain / Gastroparesis
Pulmonary hypertension
Polysubstance abuse
Anxiety
Anemia
Right pleural effusion--s/p R throa for pleural effusion with 1.8L transudate 02/17/24
Plan:
Insulin drip continues per primary team
Pressors if necessary
Dialysis today
Metabolic acidosis and hyponatremia should be corrected with control of DKA and resumption of dialysis
Critical care time spent 31 minutes
[2024-03-31] MEDS: THIAMINE INJECTION 200 MG IV ×2 (09:15→19:38)
[2024-03-31] MEDS: FOLVITE 1 MG PO (09:15)
[2024-03-31 09:20] LABS: Glucose - Point of Care 124 mg/dl (70-99)
[2024-03-31] MEDS: LIDOCAINE 4% PATCH 1 PATCH TOPICAL (09:20)
--- NOTE | 2024-03-31 09:39 | PN.DE.MGMTRT ---
Insulin Management
- -
03/31/2024: Diabetes Management Consult:
34 year old male p/w c/o chest pain, noted for severe DKA, GAP 28. Pt is well known to me from recurrent hospital admissions that have all resulted in leaving AMA. Last hospital admission: 03/13/24 - 03/26/24 due to hypotension, bradycardia and PEA
arrest--> left AMA.
PMH: ETOH use disorder, recurrent DKA, ESRD on HD (MWF), T1DM for 18 years. He was using a Medtronic 770 pump with NovoLog insulin and Guardian sensor. States he has not used his insulin pump since leaving hospital.
Patient awake, A/O x3, resting in bed in ICU, able to discuss diabetes mgt. States he did not bring any of his insulin pump supplies or insulin.
NPO, GAP still open per last BMP. Was started on DKA protocol, glucose 124 to 294, requiring 3-5 units of insulin/hr.
Has BMP pending at noon. Planned for CT A/P, will receive Steroids prior to scan per hospitalist, anticipate Hyperglycemia
Will make no changes to current regimen. Cont DKA protocol and reassess for readiness to transition off infusion in AM.
Diabetes plan of care discussed with pt's Nurse.
Diabetes History
- -
Type of Diabetes: 1
Pre-Admission Diabetes Regimen
03/31/24 03/31/24 03/31/24
00:09 03:46 06:00
Creatinine 7.9 H* 8.0 H* Cancelled
03/31/24 03/31/24 03/31/24
10:00 14:00 18:00
Creatinine Cancelled Cancelled Cancelled
Insulin Pump Settings
IP Diabetes Regimen
03/30/24 03/31/24 03/31/24
22:03 00:09 02:10
Glucose 315 H
POC Glucose 305 H 336 H
03/31/24 03/31/24 03/31/24
02:59 03:46 04:20
Glucose 282 H
POC Glucose 310 H 294 H
03/31/24 03/31/24 03/31/24
05:11 06:00 06:13
Glucose Cancelled
POC Glucose 251 H 206 H
03/31/24 03/31/24 03/31/24
07:14 09:09 10:00
Glucose Cancelled
POC Glucose 175 H 124 H
03/31/24 03/31/24
14:00 18:00
Glucose Cancelled Cancelled
POC Glucose
Patient Education
--- NOTE | 2024-03-31 10:01 | CM ---
CM following re: discharge planning.
Discussed in rounds, reviewed pt's chart, met with pt.
Pt is a 33 year old male, admitted with primary dx of DKA.
Pt is well know to this CM from previous admissions. Pt stated he lives with mother and father in a 2SH, has been on HD treatment for 3 years, [facility], [facility] chair time, [employer] transport. Pt denied being non-compliant with care including
using insulin pump, reporting to HD center on a regular schedule. Pt expressed his agreement to meet with [facility] team. A referral to [facility] made.
CM attempted to have an open conversation with the pt regarding his health care in general and ways of taking care for himself. Pt quietly listened, admitted of having supportive parents, stated his parents will not come to visit him. CM tried to
talk with the pt regarding substance abuse and pt suddenly stated: ' I am done talking to you'. CM respectfully ended the conversation and left pt's room.
CM spoke to Justin William [phone] x [phone] regarding pt's numerous admissions to , provided her with admitting diagnosis and per Stewart, a family service caseworker from [facility] has been assigned to pt's case.
PCP: Casper Arroyo
Pharmacy: [facility].
D/C plan: home with resumptions of HD treatment at [facility], [facility] to follow and family support.
CM will follow with discharge plan updates as hospitalization progresses
--- NOTE | 2024-03-31 10:15 | W.PN.HOSP.TC ---
Today's Communication/Plan
-
CT PE study
BMP awaited
Blood CX
Pressors prn
Insulin gtt
Assessment / Plan
Assessment / Plan
34-year-old male with history of diabetes end-stage renal disease and many other medical problems admitted to [facility] on 03/13/2024 with nausea and vomiting and shortness of breath. He missed his daily dialysis at that time and was found
to be in severe DKA. He was also hypoxic on admission went into cardiac arrest in the ER. Patient got epinephrine, bicarbonate and calcium ROSC was achieved. He was intubated and admitted to ICU. He also went into atrial fibrillation and
converted to sinus rhythm. Volume removal was done with HD and extubated. He had delirium postextubation which then resolved. Patient also reportedly used a bottle of whiskey prior to arrival. Patient had inconsistent Bactrim DS and speech
evaluation recommended dysphagia diet. Patient also had rib fractures secondary to chest compression. Patient was instructed to go to rehab did not want to do that and signed out AGAINST MEDICAL ADVICE. Patient presents to the ER now with chest
pain asking for strong medicines. Pain in the midsternal area with SOB with exertion. He was at [facility] ? left AMA
AA oriented
Chest sternal tenderness
Chest decreased BS right base.
Abd - Soft NT
pedal edema
Neuro non focal
# Chest pain-likely secondary to previous CPR
Obtain CT of the chest to evaluate for PE as he has risk factors and now with hypotension.
He is listed as allergy to shellfish per radiology no need for prep per protocol.
OK for contrast from renal stand point.
Trop negative
# Hypotension- Unclear cause . Prn Pressors. Hold Coreg and Amlodipine
Blood CX
Start Zosyn if CT confirms pneumonia
CT PE study
# DKA secondary to noncompliance with insulin with a gap of 28 and severe hyperkalemia
Type I on insulin pump with neuropathy
Status post insulin, calcium gluconate and sodium polystyrene in the ER
On insulin drip
Await BMP to see if can convert to pump
# End-stage renal disease with missed hemodialysis
left UE AVF
Patient is dialysis usually Friday
Nephrology evaluation
# Severe metabolic acidosis
# Hyponatremia-likely pseudohyponatremia
# History of paroxysmal atrial fibrillation not on anticoagulation secondary to noncompliance
In sinus rhythm
Echo 03/19/2024-normal LV size wall thickness and systolic function. EF 60 to 65%. Flattened septum in systole and diastole consistent with RV pressure and volume overload. Elevated RV with reduced systolic function. Moderate TR. Pulmonary
artery pressure 80 mmHg
# PEA/Asystolic arrest 03/13/2024 status post VDRF and subsequent extubation
# Severe alcohol use disorder
Alcohol withdrawal protocol
Thiamine
# Chronic abdominal pain with nausea/gastroparesis-Reglan
# Recurrent right pleural effusion
s/p R thoracentesis for pleural effusion with 1.8L transudate 02/17/24-pathology negative for malignancy
Patient has recurrent effusion-May need thoracentesis based on CAT scan
# Anemia likely secondary to chronic disease and end-stage renal disease
# Hypertension-supposed to be on amlodipine and Coreg as outpatient. Hold as Hypotensive
# Severe pulmonary hypertension Severe TR, Enlarged RV - suspected sleep disorder-sleep study as outpatient if patient will comply
# Reported history of PE 2020, treated 6m AC. Not on it now.
# Anxiety and depression-oxcarbazepine, trazodone
# Tobacco dependence-cessation counseling
# Noncompliance with medicines and medical instructions and dialysis
# DVT prophylaxis-heparin subcutaneous
# Full code
Patient is critically ill.
Discussed with nursing at bedside
Discussed with patient regarding CAT scan he is agreeable to proceed
Discussed with patient's mother regarding his condition that he is in ICU, DKA, hypotension and the need for CT scan-agreeable to proceed.
Discussed with nephrology
Discussed with diabetes management nurse practitioner
Chest x-ray reviewed by me
Overall prognosis is guarded and long-term prognosis poor given his multiple medical problems and noncompliance. Unfortunate situation.
Total Critical Care Time 45 minutes. I was immediately available to the patient and staff. I personally examined, reviewed labs, diagnostic images/reports, interpretations, treatment plans, discussed patient care with other providers and family ,
entered orders as appropriate and documented the medical record.
Anticipated Discharge: > 48 hours
Subjective/Interval History
-
Date of Service: March 31, 2024
Objective Data
-
Labs:
Laboratory Results
03/31/24 03/31/24 03/31/24
00:06 00:09 03:46
WBC 10.6 10.5
Hgb 9.9 L 8.7 L
Hct 30.4 L 26.6 L
Plt Count 359 D 256 D
PT Cancelled 19.7 H
INR Cancelled 1.68
Sodium 132 L 132 L
Potassium 6.2 H* 5.2 H
Chloride 96 L 98
Carbon Dioxide 8 L* 10 L*
BUN 59 H 62 H
Creatinine 7.9 H* 8.0 H*
Glucose 315 H 282 H
Calcium 9.7 9.3
Total Bilirubin 1.1
AST 21
ALT 15
Alkaline Phosphatase 126
03/31/24 03/31/24 03/31/24
06:00 08:00 10:00
WBC
Hgb
Hct
Plt Count
PT
INR
Sodium Cancelled Pending Cancelled
Potassium Cancelled Pending Cancelled
Chloride Cancelled Pending Cancelled
Carbon Dioxide Cancelled Pending Cancelled
BUN Cancelled Pending Cancelled
Creatinine Cancelled Pending Cancelled
Glucose Cancelled Pending Cancelled
Calcium Cancelled Pending Cancelled
Total Bilirubin
AST
ALT
Alkaline Phosphatase
03/31/24 03/31/24 03/31/24
12:00 14:00 16:00
WBC
Hgb
Hct
Plt Count
PT
INR
Sodium Pending Cancelled Pending
Potassium Pending Cancelled Pending
Chloride Pending Cancelled Pending
Carbon Dioxide Pending Cancelled Pending
BUN Pending Cancelled Pending
Creatinine Pending Cancelled Pending
Glucose Pending Cancelled Pending
Calcium Pending Cancelled Pending
Total Bilirubin
AST
ALT
Alkaline Phosphatase
03/31/24 03/31/24 03/31/24
18:00 20:00 22:00
WBC
Hgb
Hct
Plt Count
PT
INR
Sodium Cancelled Pending Pending
Potassium Cancelled Pending Pending
Chloride Cancelled Pending Pending
Carbon Dioxide Cancelled Pending Pending
BUN Cancelled Pending Pending
Creatinine Cancelled Pending Pending
Glucose Cancelled Pending Pending
Calcium Cancelled Pending Pending
Total Bilirubin
AST
ALT
Alkaline Phosphatase
Vital Signs:
Vital Signs
Temp Pulse Resp BP Pulse Ox
97.8 F 87 16 109/74 93
03/31/24 07:37 03/31/24 07:00 03/31/24 07:00 03/31/24 07:00 03/31/24 07:27
--- NOTE | 2024-03-31 10:33 | PTCARENOTE ---
Patient's mother called the unit. She is aware we have his Insulin pump but need the needle, tubing and medication brought in from home.
[2024-03-31] MEDS: DEXTROSE 50% SYRINGE 12.5 GRAMS IV (11:25)
[2024-03-31] MEDS: D5/0.45%NACL 1000 IV (11:29)
--- NOTE | 2024-03-31 11:30 | PTCARENOTE ---
Recent glucose 57, pt with slurred speech. Dr. Moses notified immediately. 12.5g of D50 administered viA RIGHT MIDLINE AND d5.45 @50ML/HR INITIATED.
[2024-03-31 11:31] LABS: Blood Urea Nitrogen 63 mg/dl (9-20); Calcium 9.3 mg/dl (8.4-10.2); Carbon Dioxide 21 mmol/L (22-30); Chloride 98 mmol/L (98-107); Estimated Creatinine Clearance 12 ml/min; Glucose 81 mg/dl (70-99); Potassium 4.8 mmol/L (3.5-5.1); Sodium 136 mmol/L (135-145); eGFR 8.28
[2024-03-31 11:35] LABS: Glucose - Point of Care 57 mg/dl (70-99)
[2024-03-31] MEDS: ROXICODONE 5 MG PO (12:02)
[2024-03-31 12:15] LABS: Glucose - Point of Care 94 mg/dl (70-99)
[2024-03-31] MEDS: MANNITOL 25% 12.5 GRAMS IV ×2 (12:40→14:31)
[2024-03-31] MEDS: FLEXBUMIN 25% FOR HEMODIALYSIS 12.5 GRAMS IV ×2 (12:40→14:25)
--- NOTE | 2024-03-31 12:49 | W.PN.UPDATE ---
Update Note
Progress Note Update
CT chest-no PE. Moderate pericardial effusion. Moderate right pleural effusion. Airspace consolidation at the right lung base atelectasis/pneumonia. Small left pleural effusion. Mild left base airspace consolidation. Acute fractures of the
right third through fifth ribs near the midaxillary line. Wedge-shaped areas of hypoenhancement within the spleen which are new compared to 02/22/2024 likely representing splenic infarcts. Dilated tortuous venous structure in the left rectal
pectoral axillary region.
Urgent echo requested
Also requested cardiology to evaluate given hypotension
[2024-03-31 13:13] LABS: Blood Urea Nitrogen 49 mg/dl (9-20); Calcium 8.7 mg/dl (8.4-10.2); Carbon Dioxide 22 mmol/L (22-30); Chloride 99 mmol/L (98-107); Estimated Creatinine Clearance 17 ml/min; Glucose 88 mg/dl (70-99); Potassium 4.5 mmol/L (3.5-5.1); Sodium 134 mmol/L (135-145); eGFR 12.62
[2024-03-31] MEDS: RETACRIT 10000 UNITS IV (13:25)
--- NOTE | 2024-03-31 13:33 | W.PN.NEPH.HD ---
Assessment
-
Seen on HD. no new complaints. VSS BP better. access ok
Progress Note - Hemodialysis
-
Date of Service: March 31, 2024
Duration: 30 minutes and 3 hours
Potassium Bath: 2
Calcium Bath: 2.5
Opti-Dialyzer: 160
Ultrafiltration: Other (2kg)
Blood Flow: 400
Dialysate Flow: 600
Heparin: no
EPO: [id number] units
--- NOTE | 2024-03-31 13:35 | CON.CAR ---
Addendum entered and electronically signed by Chau Shook MD 03/31/24 15:52:
I saw and examined the patient.
The MANAGER SIX SIGMA's note was reviewed and I agree with the note.
Comment: 34 y/o male with IDDM with insulin pump since the age of 13, HTN, ESRD on HD, severe PHTN, h/o PE 3 years ago (treated with Eliquis for 6 months, per patient), chronic non-compliance with medical therapy, smoker, ETOH use (denies
currently), drug use (denies currently) with recent PEA arrest resulting in leaving AMA when recoverd. PAF seen during that hospitalization, no DOAC given chronic nonadherance. Reports recent syncope at HD this week, currently c/o sob and chest pain
with touch and inspiration. He has known rib fractures from recent cpr. On CTPE concern fro mod pericardial effusion and right sided plueral effusion. On exam he appears unwell and tachypneic. BP has been labile since arrival, he is on HD
currently. Urgent echo showed mod-large pericardial effusion with signs of hd compromise. I have recommeded urgent evaluation and pericardiocentesis. I spoke to Dr Lindsey, asking to limit volume removal for now. Will likely need to address the right
pleural effusion later this stay. He was also had splenic infarcts, may be due to paf vs hypotension. Cannot offer anticoagulation with new pericardial effusion currently.
Original Note:
Consultation
Consultation Request
Date/Time Consultation Requested: 03/31/24 1248
Date/Time Consultation Performed: 03/31/24 1345
Requesting Provider: Dr. Marie
Performing Provider: Francie MOORE for Dr. Shook
Reason for Consultation: pericardial effusion on CT scan
Medical History
-
Chief Complaint: chest discomfort
History of Present Illness:
34 y/o male with IDDM with insulin pump since the age of 13, HTN, ESRD on HD, severe PHTN, h/o PE 3 years ago (treated with Eliquis for 6 months, per patient), chronic non-compliance with medical therapy, smoker, ETOH use (denies currently), drug
use (denies currently). He was recently hospitalized here after missing several sessions of HD. He had a PEA arrest. CPR performed, and rib fractures noted. He required pressors and intubation/ventilation. In setting of critical illness, PAF was
seen. AC was not recommended due to compliance issues. He ultimately left AMA. He came back to the ER with CP on Friday and was given short course tramadol and lidocaine. Then, he tells me that on Friday during dialysis he passed out and was sent
to [place], and was told his passing out was due to low BP, but details of this unclear. He thinks BP meds were stopped. He came to the hospital with continued CP, which worsened. As well as ROBBINS. His chest pain is mid chest and worse to palpation.
Past Medical History
Past Medical History: HTN, IDDM, Renal Failure and Other
Social History
Tobacco: Smoker
Alcohol: Other (currently denies)
Drug: Other (currently denies)
Family History
Family History: Asthma
Allergies / Home Medications
Allergy/AdvReac Type Severity Reaction Status Date / Time
shellfish derived Allergy Hives Verified 03/30/24 20:47
�Medication �Instructions �Recorded �Confirmed �Type
amlodipine 10 mg tablet 10 mg PO DAILY Blood pressure 04/22/21 03/19/24 History
carvedilol 25 mg tablet (Coreg) 25 mg PO BID Blood pressure 04/22/21 03/19/24 History
furosemide 40 mg tablet 40 mg PO BID Fluid 04/22/21 03/19/24 History
retention/Swelling
metoclopramide HCl 10 mg tablet 10 mg PO TIDPRN PRN nausea 04/07/23 03/19/24 History
(Reglan)
oxcarbazepine 150 mg tablet 150 mg PO HS 07/24/23 03/19/24 History
trazodone 50 mg tablet 25 mg PO HSPRN PRN sleep 01/05/24 03/19/24 History
Patient Own Insulin Pump 0 units SC .VIA PUMP diabetes 02/13/24 03/19/24 History
tramadol 25 mg tablet 25 mg PO BIDPRN PRN Pain #8 tabs 03/27/24 Rx
Review of Systems
-
History Source: Patient
All other systems: Negative unless noted
Respiratory: Trouble Breathing
Cardiac: Chest Pain
Physical Exam
Vital Signs
Temp Pulse Resp BP Pulse Ox
97.6 F 78 19 111/86 92
03/31/24 11:05 03/31/24 12:30 03/31/24 12:30 03/31/24 12:30 03/31/24 12:30
Lab Results
03/31/24 03:46
Troponin I 0.023 ng/ml 03/31/24 00:09
Physical Exam
General: No Apparent Distress
HEENT: Normocephalic and Anicteric
Respiratory: Other (diminished, no wheezes)
Cardiac: Regular Rhythm
Skin: Warm and Dry
Neuro: Awake, Alert and Oriented
Psych: Calm
Impression / Plan
-
Pericardial effusion:
-high-risk diagnosis
-will need pericardiocentesis today- patient agreeable
Pleural effusion:
-moderate right- may need tap, but pericardial effusion priority
Splenic infarcts:
-noted on CT scan
-cause unclear, does have PAF, but can't be on AC currently with pericardial effusion
-also hx PE
PAF:
-stable in SR
-last admit, OAC not recommended given long-standing non-compliance
HTN:
-BP on low end
-meds held
ESRD:
-on HD
-nephro on the case
IDDM:
-diabetic MANAGER SIX SIGMA following
Tobacco abuse:
-recommend cessation
Data Reviewed
-
EKG: Tracing Personally Visualized and interpreted (NSR 79 BPM, nonspecific T abnormality similar to previous)
CT Scan: Report Reviewed by me (Chest CT: No evidence of pulmonary embolism or thoracic aortic dissection. Moderate pericardial effusion, measuring up to 1.9 cm in thickness. Moderate right pleural effusion. Airspace consolidation at the R lung
base. Small L pleural effusion. Mild L basilar airspace consolidation. Acute fractures )
Medical Tests (Nuc Med, Echo etc): Report Reviewed by me (Echo 03/19/24: LV ejection fraction is 60-65% by visual assessment. Elevated RV with reduced systolic function. Moderate tricuspid regurgitation. Estimated pulmonary artery pressure of 80
mmHg. Small pericardial effusion.)
Labs: Labs Reviewed by me
[2024-03-31 14:39] LABS: Glucose - Point of Care 83 mg/dl (70-99)
[2024-03-31] MEDS: D5/0.45%NSS with KCL 20 MEQ 1000 IV (14:52)
[2024-03-31 16:21] LABS: Glucose - Point of Care 115 mg/dl (70-99)
[2024-03-31 16:30] LABS: Blood Urea Nitrogen 27 mg/dl (9-20); Calcium 9.1 mg/dl (8.4-10.2); Carbon Dioxide 28 mmol/L (22-30); Chloride 97 mmol/L (98-107); Estimated Creatinine Clearance 28 ml/min; Glucose 87 mg/dl (70-99); Potassium 3.6 mmol/L (3.5-5.1); Sodium 136 mmol/L (135-145); eGFR 22.67
--- NOTE | 2024-03-31 17:21 | ITS.CL.PN ---
[facility] - Procedure Note
Procedure
Procedure Note:
PERICARDIOCENTESIS PROCEDURE NOTE
Date of procedure: 03/31/2024
Referring Physician/Provider: Pham Shook M.D.
Indication: Expanding pericardial effusion, impending tamponade.
Procedure:
After obtaining consent, the patient was brought to the cardiac color laboratory technician and placed in a recumbent position. Echocardiogram was used to ascertain the best approach vector. A(n) apical approach was selected. The fifth intercostal space along the
midclavicular line was anesthetized with 1% lidocaine. Under ultrasound guidance, a micropuncture needle was advanced into the pericardial space under negative pressure. After obtaining flashback of pericardial fluid, the micropuncture wire was
advanced into the pericardial space and the needle was removed. The micropuncture sheath was advanced over the wire and the wire and dilator were removed. Agitated saline was injected through the micropuncture sheath confirming its presence in the
pericardial space on echocardiography. A 0.035 inch J-wire was advanced through the micropuncture sheath and into the pericardial space. The micropuncture sheath was removed and a 6 Haitian sheath was advanced over the 0.035 inch wire. A pigtail
catheter was advanced through the sheath over the J-wire and placed in the pericardial space. The J-wire was removed. The pericardial pressure was measured. A sufficient sample of pericardial fluid was removed and sent for laboratory testing
(hemoglobin, hematocrit, white blood cell count, LDH, albumin, total protein, cytology and culture). The pigtail catheter was then connected to a Vacutainer and the pericardial space was evacuated. Serial echocardiography confirmed reduction in the
pericardial effusion from severe to trace. All evidence of tamponade was removed. The 6 Haitian sheath was sutured into place. The pigtail catheter was likewise sutured into place then curled around the sheath and covered by a sterile Tegaderm.
Repeat pericardial pressure was measured, confirming significant reduction. The pigtail catheter was then connected to a ROSA drain to suction. The patient reported significant improvement in their shortness of breath.
Procedure Details:
Approach: Apical
Sheath/Drain size (Fr) 6
Pericardial Volume (mL): 385
Effusion type: Maroon, bloody.
Non-effusion blood loss (mL): None.
Pericardial pressures
Pre drainage (mmHg): 21
Post drainage (mmHg): 7
Radiation dose:
Dose (mGy): 9.85
DAP (Gy*cm2): 1.1406
Fluoroscopy Time (minutes): 0.5
Conclusions:
1. Successful placement of a 6 Haitian pericardial drain via apical approach with 385 mL of bloody/maroon fluid evacuated and reduction of pericardial pressure from 21 mmHg to 7 mmHg.
2. Pericardial fluid has been sent for laboratory analysis.
Renato Mansfield DO, FACC, FACP
Copy To: Pham Shook M.D., Casper Arroyo D.O.
[2024-03-31] MEDS: SENOKOT PO ×2 (17:34→19:49)
[2024-03-31] MEDS: MORPHINE SULFATE 2 MG IV (17:39)
--- NOTE | 2024-03-31 17:45 | PTCARENOTE ---
Pt returned from woven label designer via bed. Still with 8/10 mid chest pain. Morphine administered as ordered. Pericardial drain secured to pt's chest with tegaderm and sutured at the insertion site. There is bloody drainage collected in canister. Bed linen
changed due to bloody spots from scattered scabs on his arms and legs. Safe environment maintained.
[2024-03-31 17:48] LABS: Body Fluid Glucose 53 mg/dl; Body Fluid LDH 1666 U/L
[2024-03-31 17:57] LABS: Body Fluid WBC 3520 /CUMM
[2024-03-31 17:58] LABS: Body Fluid Hematocrit 9.1 %
[2024-03-31 18:03] LABS: Body Fluid Second Tech EYM
[2024-03-31 18:08] LABS: Glucose - Point of Care 114 mg/dl (70-99)
[2024-03-31] MEDS: HEPARIN SC (18:21)
[2024-03-31 18:36] LABS: Body Fluid Granulocytes 67 %; Body Fluid Lymphocytes 17 %; Body Fluid Macrophages 16 %
--- NOTE | 2024-03-31 19:00 | PTCARENOTE ---
Cannot verify vitals prior to 1900, previous shift.
[2024-03-31] MEDS: LANTUS 0.119999999999999996 UNITS SC (19:38)
--- NOTE | 2024-03-31 20:00 | PTCARENOTE ---
Received patient AAOx4, drowsy, following commands, complaining of 8/10 chest pain. W[employer] PROJECT MANAGER Sophia Omalley notified, ordered IV tylenol given. MSAS 1. Normal sinus/sinus tach 70s-100s. BP 80s-100s/60s-70s. On 4 liters nasal cannula saturating 99%. Lung
sounds diminished throughout. Abdomen soft, round, hypoactive bowel sounds. Last BM today. Oliguric. Pericardial drain putting out sanguinous drainage. Scabs and scars throughout arms and legs. Right midline patent, WNL. Right hand and forearm IV
patent, WNL. Left AV fistula positive bruit and thrill. Call luevano within reach.
[2024-03-31 20:11] LABS: Glucose - Point of Care 212 mg/dl (70-99)
[2024-03-31 20:35] LABS: Blood Urea Nitrogen 31 mg/dl (9-20); Carbon Dioxide 21 mmol/L (22-30); Chloride 97 mmol/L (98-107); Estimated Creatinine Clearance 23 ml/min; Glucose 220 mg/dl (70-99); Sodium 134 mmol/L (135-145); eGFR 18.21
[2024-03-31 21:08] LABS: Glucose - Point of Care 190 mg/dl (70-99)
[2024-03-31] MEDS: TRILEPTAL 150 MG PO (22:13)
[2024-03-31 22:23] LABS: Glucose - Point of Care 193 mg/dl (70-99)
[2024-03-31 22:42] LABS: Blood Urea Nitrogen 32 mg/dl (9-20); Calcium 8.5 mg/dl (8.4-10.2); Carbon Dioxide 24 mmol/L (22-30); Chloride 98 mmol/L (98-107); Estimated Creatinine Clearance 23 ml/min; Glucose 180 mg/dl (70-99); Potassium 4.2 mmol/L (3.5-5.1); Sodium 133 mmol/L (135-145); eGFR 18.21
[2024-03-31] MEDS: NOVOLOG FLEXPEN-MODERATE RESISTANCE 300 UNITS SC (23:01)
[2024-03-31 23:11] LABS: Glucose - Point of Care 176 mg/dl (70-99)
[2024-04-01] VITALS (18 sets, daily range): BP systolic 77–148; BP diastolic 38–80; BMI 22.9
--- NOTE | 2024-04-01 00:49 | PTCARENOTE ---
Patient assessment unchanged from previous. Dilaudid given for pain. Call luevano within reach.
[2024-04-01] MEDS: DILAUDID 0.25 MG IV ×4 (02:20→23:11)
[2024-04-01 03:40] LABS: Glucose - Point of Care 180 mg/dl (70-99)
[2024-04-01] MEDS: BENADRYL 25 MG IV (03:48)
[2024-04-01 05:48] LABS: Glucose - Point of Care 149 mg/dl (70-99)
[2024-04-01 05:51] LABS: Hematocrit 26.5 % (39.0-52.0); Hemoglobin 8.9 g/dL (13.0-18.0); Mean Corp Hgb Conc. 33.6 g/dL (33.0-37.0); Mean Corpuscular Hgb 30.1 pg (27.0-31.0); Mean Corpuscular Volume 89.5 fL (80.0-94.0); Mean Platelet Volume 9.4 fL (7.4-10.4); Platelet Count 356 10^3/uL (130-400); Red Blood Cell Count 2.96 10^6/uL (4.70-6.10); Red Cell Dist. Width 17.8 % (11.5-14.5)
[2024-04-01] MEDS: NOVOLOG FLEXPEN-MODERATE RESISTANCE SC (06:01)
[2024-04-01 06:14] LABS: Blood Urea Nitrogen 36 mg/dl (9-20); Calcium 8.9 mg/dl (8.4-10.2); Carbon Dioxide 25 mmol/L (22-30); Chloride 98 mmol/L (98-107); Estimated Creatinine Clearance 21 ml/min; Glucose 146 mg/dl (70-99); Potassium 4.3 mmol/L (3.5-5.1); Sodium 136 mmol/L (135-145); eGFR 16.33
--- NOTE | 2024-04-01 08:07 | W.PN.NEPH.PH ---
Today's Communication / Plan
-
midodrine
Assessment/Plan
-
Impression:
Status post PEA/Asystole 03/13/24
PAF : briefly after code on 03/13/24
Metabolic acidosis
Chronic noncompliance with dialysis
ESRD MWF ([facility]),
left UE AVF
DKA hx/metabolic acidosis
Hyperkalemia
Hyponatremia
Chronic Abdominal Pain / Gastroparesis
Pulmonary hypertension
Polysubstance abuse
Anxiety
Anemia
Right pleural effusion--s/p R throa for pleural effusion with 1.8L transudate 02/17/24
Plan:
Insulin drip continues per primary team
midodrine 5mg TID
HD tomorrow
pericardial drain per cardiology
Critical care time spent 31 minutes
-
-
Date of Service: April 01, 2024
CC / HPI / ROS
-
Chief Complaint:
ESRD
History of Present Illness:
s/p paricardial drain 03/31
BP low
tolerated HD yesterday with limited UF
Hgb stable
Review of Systems:
no CP/SOB
Labs
-
Labs:
WBC 8.0 10^3/uL (4.8-10.8) 04/01/24 05:37
RBC 2.96 10^6/uL (4.70-6.10) L 04/01/24 05:37
Hgb 8.9 g/dL (13.0-18.0) L 04/01/24 05:37
Hct 26.5 % (39.0-52.0) L 04/01/24 05:37
Plt Count 356 10^3/uL (130-400) D 04/01/24 05:37
Sodium 136 mmol/L (135-145) 04/01/24 05:37
Potassium 4.3 mmol/L (3.5-5.1) 04/01/24 05:37
Chloride 98 mmol/L (98-107) 04/01/24 05:37
Carbon Dioxide 25 mmol/L (22-30) 04/01/24 05:37
BUN 36 mg/dl (9-20) H 04/01/24 05:37
Creatinine 4.6 mg/dL (0.7-1.3) H* 04/01/24 05:37
eGFR 16.33 04/01/24 05:37
Glucose 146 mg/dl (70-99) H 04/01/24 05:37
Calcium 8.9 mg/dl (8.4-10.2) 04/01/24 05:37
Albumin 3.7 g/dl (3.5-5.0) 03/31/24 00:09
Physical Exam
-
Vital Signs:
Vital Signs
Temp Pulse Resp BP Pulse Ox
98.4 F 89 14 105/80 99
04/01/24 04:00 04/01/24 06:00 04/01/24 06:00 04/01/24 06:00 03/31/24 23:00
Cardiovascular:: Regular rate and rhythm
Respiratory:: Bilateral: Coarse
Lung Excursion:: Normal
Abdomen:: Nontender and Soft
Bowel Sounds:: Normal
Extremity Edema:: None: Bilateral:
--- NOTE | 2024-04-01 08:25 | W.PN.INTV ---
Today's Communication / Plan
Recommendations
Monitor pericardial drain output
Removal of pericardial drain as per cardiology
Consult IR for thoracentesis of right pleural fluid
Continue HD as per nephrology
Patient is stable for transfer out of ICU to the IVU. Needle Valve Operator/pulmonary service will now sign off. Please reconsult if there are any additional questions/concerns, or if patient's respiratory status deteriorates.
Assessment
-
Assessment: 34-year-old male with a past medical history of ESRD on HD MWF, insulin-dependent diabetes mellitus on subcutaneous insulin pump, recurrent DKA with insulin noncompliance, chronic right-sided pleural effusion (since 04/2023),
hypertension, pulmonary hypertension, alcohol use disorder, history of cardiac arrest earlier this month (March 2024), and history of tobacco use disorder/polysubstance abuse who presents with mid sternal chest pain and shortness of breath + cough.
He also presented with similar complaints 3 days prior. He was afebrile in the ER to 99.4 �F, tachypnea to 26 breaths/min, BP 101/50, saturating 95% on room air with heart rate 86 bpm. Labs significant for Hb 8.7, serum bicarbonate level of 10,
initial AG of 24, glucose of 282, negative troponin of 0.023, and a beta hydroxybutyrate level of 6.4. POCT was as high as 310. Blood cultures were collected. And CXR showed a moderate right-sided pleural effusion with possible right lower lobe
airspace disease. He was given calcium gluconate, Dilaudid 0.25 mg IV x 1, IV Tylenol and started on insulin drip and transferred to the ICU for further care. Critical care services now consulted for additional management/recommendations.
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
use disorder, anxiety/depression, history of cardiac arrest (March 2024), history of polysubstance abuse, and tobacco use disorder, chronic HFpEF, history of MRSA
Impression:
#DM type II complicated by DKA - DKA resolved
#Chest pain - appears musculoskeletal, and likely related to his acute fractures involving his right third through fifth ribs seen on CT chest from today; possibly being contributed by his pericardial effusion (?pericarditis)
#ESRD on HD MWF (of note he still continues to make urine once a day)
#Alcohol use disorder
#Anemia
#Recent cardiac arrest (March 2024)
#Tobacco use disorder
#Pericardial effusion s/p pericardiocentesis on 03/31 with 6 Czech drain placed - 385 cc of bloody/maroon fluid evacuated with reduction of pericardial pressure from 21 mmHg to 7 mmHg
#Chronic HFpEF
#Chronic right-sided pleural effusion (present since April 2023)
#History of polysubstance abuse
Plan:
- Off insulin drip --> continue basal-bolus insulin with goal BG 140-180
- Given the patient's chest pain, a CTA of the chest was done which ruled out a PE, however a moderate pericardial effusion was revealed with acute fractures in the right involving his right third�fifth ribs. He went to laborer rags pericardiocentesis
with removal of 385 cc of bloody/maroon fluid with reduction of pericardial pressure from 21 to 7 mmHg
- Suspect his pericardial effusion is trauma related from recent CPR - however we still need to follow-up cultures and cytopathology
- MSAS; thiamine, folate and MVN
- Nephrology consulted, continue HD as scheduled and try to challenge his UF removal given his large right-sided pleural effusion and small left-sided pleural effusion
- Pain control
- Would hold off on antibiotics at this time. I personally reviewed the patient's CTA chest and it appears that he has right lower lobe compressive atelectasis and I am not fully convinced this is a consolidation. He has no evidence of
leukocytosis, and remains afebrile. Continue to trend WBC and fever curve and if he spikes a fever, consider starting broad-spectrum antibiotics at that time.
- Consider psychiatric evaluation given his history of polysubstance use, alcohol use disorder, multiple readmissions and leaving AMA and unclear if he has insight into his disease state, and seems as if he has drug-seeking behavior. Perhaps
putting him on to methadone or Suboxone would be appropriate. Drug and alcohol rehabilitation should also be discussed with him if he is open to this.
- Nicotine patch recommended
- Maintain SpO2 >90-94%
- Maintain MAP>65
- Replete electrolytes with K>4, Mg>2
- Maintain euglycemia with goal BG 140-180
- prn nebulized bronchodilators
- Incentive spirometer encouraged
- DVT ppx
Patient is stable for transfer out of ICU to the IVU. Needle Valve Operator/pulmonary service will now sign off. Thank you for allowing us to be involved in the care of this patient. Please reconsult if there are any additional questions/concerns, or if
patient's respiratory status deteriorates.
Total time spent today was 75 minutes for this encounter. Time includes reviewing laboratory test/imaging results, reviewing pertinent medical records, obtaining and reviewing medical history, performing an appropriate exam, ordering medications,
tests and procedures. Time also includes documentation of this encounter, coordinating patient care and communicating with other healthcare professionals. Total time does not include separately billed tests performed on this date of service.
Data:
CTA Chest 03-31-2024:
1. No evidence of pulmonary embolism or thoracic aortic dissection.
2. Moderate pericardial effusion, measuring up to 1.9 cm in thickness.
3. Moderate right pleural effusion. Airspace consolidation at the right lung base which may represent subsegmental atelectasis or pneumonia.
4. Small left pleural effusion. Mild left basilar airspace consolidation.
5. Acute fractures involving the right third through fifth ribs near the mid axillary line.
6. Wedge-shaped areas of hypoenhancement within the spleen, which are new compared to prior abdominal pelvic CT dated 02/22/2024, likely representing splenic infarcts.
7. Dilated tortuous venous structure within the left retropectoral axillary region, partially imaged on the current study, of unknown etiology. Consider venous ultrasound of the left upper extremity for further characterization.
CR 03-30-2024:
1. Moderate right pleural effusion, unchanged compared to prior chest x-ray.
2. Right lower lobe airspace disease may also be present.
Subjective Dataa
Subjective Data
Date of Service:
Date of Service: April 01, 2024
Chief Complaint: Needle Valve Operator Follow Up
Subjective:
Patient seen and evaluated today at bedside. Weaned off insulin drip yesterday. BG this morning on chemistry was 146. He does drop down to the 50�60s occasionally. He is consistently asking for Dilaudid for chest pain and will need to try oral
pain medications.
He underwent pericardiocentesis yesterday with 6 Czech drain placed, with 385 cc of bloody/maroon fluid evacuated with reduction of pericardial pressure from 21 mmHg to 7 mmHg.
The patient denies headache, shortness of breath, nausea, fevers, chills.
Review of Systems
General: Other (Negative unless mentioned above)
Objective Data
Data Reviewed
Vital Signs / I&O / Oxygen:
Vital Signs
Temp Pulse Resp BP Pulse Ox
98.4 F 89 14 105/80 99
04/01/24 04:00 04/01/24 06:00 04/01/24 06:00 04/01/24 06:00 03/31/24 23:00
Intake and Output
03/31/24 04/01/24 04/02/24
06:59 06:59 06:59
Intake Total 201.5 / 451.5 250 / 250
Balance 201.5 / 451.5 250 / 250
SaO2 99
Nasal Cannula flow liters per 4
minute
Physical Exam
General: Respiratory Distress (negative) and Comfortable
HEENT: Normocephalic and Anicteric
Cardiovascular: S1-S2 and Peripheral Edema (Trace ROSE MARY (L >R))
Respiratory: Wheeze (negative), Crackles (Right base), Rhonchi (negative) and Non-Labored Respirations
GI: Soft, Non Distended and Non Tender
Neurology: AO x 3 and Tremors (negative)
Skin: Warm and Dry
Labs/Micro/Reports
Lab Data
04/01/24 05:37
04/01/24 05:37
Microbiology
03/31/24 03:46 Nose MRSA Screen - Final
Staph aureus MRSA
03/31/24 16:17 Pericardial Fluid Gram Stain - Preliminary
03/31/24 16:17 Pericardial Fluid Fungal Culture - Preliminary
Culture in progress.
Positive cultures are reported as soon as detected.
Final report to follow in four to five weeks.
--- NOTE | 2024-04-01 08:26 | W.PN.HOSP.TC ---
Today's Communication/Plan
-
Post pericardiocentesis care. Pain control. Cardiac monitoring.
Assessment / Plan
Assessment / Plan
34-year-old male with history of diabetes end-stage renal disease and many other medical problems admitted to [facility] on 03/13/2024 with nausea and vomiting and shortness of breath. He missed his daily dialysis at that time and was found
to be in severe DKA. He was also hypoxic on admission went into cardiac arrest in the ER. Patient got epinephrine, bicarbonate and calcium ROSC was achieved. He was intubated and admitted to ICU. He also went into atrial fibrillation and
converted to sinus rhythm. Volume removal was done with HD and extubated. He had delirium postextubation which then resolved. Patient also reportedly used a bottle of whiskey prior to arrival. Patient had inconsistent Bactrim DS and speech
evaluation recommended dysphagia diet. Patient also had rib fractures secondary to chest compression. Patient was instructed to go to rehab did not want to do that and signed out AGAINST MEDICAL ADVICE. Patient presents to the ER now with chest
pain asking for strong medicines. Pain in the midsternal area with SOB with exertion. He was at [facility] ? left AMA. Readmission and patient now found to have large pericardial effusion with hemodynamic compromise.
CT scan of the chest:
1. No evidence of pulmonary embolism or thoracic aortic dissection.
2. Moderate pericardial effusion, measuring up to 1.9 cm in thickness.
3. Moderate right pleural effusion. Airspace consolidation at the right lung base which may represent subsegmental atelectasis or pneumonia.
4. Small left pleural effusion. Mild left basilar airspace consolidation.
5. Acute fractures involving the right third through fifth ribs near the mid axillary line.
6. Wedge-shaped areas of hypoenhancement within the spleen, which are new compared to prior abdominal pelvic CT dated 02/22/2024, likely representing splenic infarcts.
7. Dilated tortuous venous structure within the left retropectoral axillary region, partially imaged on the current study, of unknown etiology. Consider venous ultrasound of the left upper extremity for further characterization.
Echocardiogram:
Normal left ventricular wall thickness. Normal left ventricular systolic
function.
Enlarged right ventricle with reduced right ventricular function.
Moderate to large pericardial effusion with signs of hemodynamic compromise.
Compared to the prior on 03/19/24,the pericardial effusion is now larger with
signs of hemodynamic compromise. The right ventricular dysfunction is not new.
AA oriented
Chest sternal tenderness
Chest decreased BS right base.
Abd - Soft NT
pedal edema
Neuro non focal
A/P:
#Pericardial effusion, impending cardiac tamponade
Status post urgent pericardiocentesis yesterday
Postprocedure care
Add pain medications with Dilaudid and continue Oxy
Bowel regimen
Benadryl as needed
Discussed with mother at bedside
Transfer out of ICU when cardiology clears him
# Diabetes mellitus type 1. DKA resolved
Off insulin drip
Start Lantus 10 units daily
Start 5 units of short acting insulin with meals
Monitor blood sugar
# Chest pain-likely secondary to previous CPR and pericardial effusion
Obtain CT of the chest to evaluate for PE as he has risk factors and now with hypotension. No PE but pericardial effusion.
He is listed as allergy to shellfish per radiology no need for prep per protocol.
OK for contrast from renal stand point.
Trop negative
# Hypotension-related to pericardial effusion. Hold Coreg and Amlodipine
Blood CX
Hold off antibiotics
# End-stage renal disease with missed hemodialysis
left UE AVF
Patient is dialysis usually Friday
Nephrology evaluation
Plan for hemodialysis tomorrow
# Severe metabolic acidosis
# Hyponatremia-likely pseudohyponatremia
# History of paroxysmal atrial fibrillation not on anticoagulation secondary to noncompliance
In sinus rhythm
Echo 03/19/2024-normal LV size wall thickness and systolic function. EF 60 to 65%. Flattened septum in systole and diastole consistent with RV pressure and volume overload. Elevated RV with reduced systolic function. Moderate TR. Pulmonary
artery pressure 80 mmHg
# PEA/Asystolic arrest 03/13/2024 status post VDRF and subsequent extubation
# Severe alcohol use disorder
Alcohol withdrawal protocol
Thiamine
# Chronic abdominal pain with nausea/gastroparesis-Reglan
# Recurrent right pleural effusion
s/p R thoracentesis for pleural effusion with 1.8L transudate 02/17/24-pathology negative for malignancy
Patient has recurrent effusion-May need thoracentesis based on CAT scan
# Anemia likely secondary to chronic disease and end-stage renal disease
# Hypertension-supposed to be on amlodipine and Coreg as outpatient. Hold as Hypotensive
# Severe pulmonary hypertension Severe TR, Enlarged RV - suspected sleep disorder-sleep study as outpatient if patient will comply
# Reported history of PE 2020, treated 6m AC. Not on it now.
# Anxiety and depression-oxcarbazepine, trazodone
# Tobacco dependence-cessation counseling
# Noncompliance with medicines and medical instructions and dialysis
# DVT prophylaxis-heparin sq
# Full code
Total time spent on today's encounter was 52 minutes which included time spent in counseling the patient/family regarding diagnosis and treatment plan as listed above, goals of care, and symptom management. Case was discussed with nursing staff,
specialists, and care coordinators/case management. All labs and imaging personally reviewed by me. Remainder the time spent in detailed review of previous records, lab data, imaging, and other medical provider documentation.
Anticipated Discharge: > 48 hours
Subjective/Interval History
-
Date of Service: April 01, 2024
Complain of pain post pericardio, also some itchiness on and off. No shortness of breath. Afebrile
Objective Data
-
Labs:
Laboratory Results
03/31/24 03/31/24 04/01/24
20:11 22:12 05:37
WBC 8.0
Hgb 8.9 L
Hct 26.5 L
Plt Count 356 D
Sodium 134 L 133 L 136
Potassium 4.0 4.2 4.3
Chloride 97 L 98 98
Carbon Dioxide 21 L 24 25
BUN 31 H 32 H 36 H
Creatinine 4.2 H* 4.2 H* 4.6 H*
Glucose 220 H 180 H 146 H
Calcium 9.0 8.5 8.9
Vital Signs:
Vital Signs
Temp Pulse Resp BP Pulse Ox
98.4 F 89 14 105/80 99
04/01/24 04:00 04/01/24 06:00 04/01/24 06:00 04/01/24 06:00 03/31/24 23:00
I&O
03/31/24 04/01/24 04/02/24
06:59 06:59 06:59
Intake Total 201.5 / 451.5 250 / 250
Balance 201.5 / 451.5 250 / 250
[2024-04-01] MEDS: HEPARIN 5000 UNITS SC ×3 (08:27→23:10)
[2024-04-01] MEDS: THIAMINE INJECTION 200 MG IV ×2 (08:27→20:47)
[2024-04-01] MEDS: FOLVITE 1 MG PO (08:27)
[2024-04-01] MEDS: LIDOCAINE 4% PATCH 1 PATCH TOPICAL (08:27)
[2024-04-01] MEDS: SENOKOT PO (08:28)
--- NOTE | 2024-04-01 08:38 | PN.DE.MGMTRT ---
Insulin Management
- -
04/01/2024: Diabetes Management F/U:
34 year old male p/w c/o chest pain, noted for severe DKA, GAP 28. Pt is well known to me from recurrent hospital admissions that have all resulted in leaving AMA. Last hospital admission: 03/13/24 - 03/26/24 due to hypotension, bradycardia and PEA
arrest--> left AMA.
PMH: ETOH use disorder, recurrent DKA, ESRD on HD (MWF), Chronic Abdominal Pain, Gastroparesis, Pulmonary hypertension, Polysubstance abuse
Anxiety, Anemia and T1DM for 18 years. He was using a Medtronic 770 pump with NovoLog insulin and Guardian sensor. States he has not used his insulin pump since leaving hospital.
Patient awake, alert, oriented, resting in bed, able to discuss diabetes mgt. States he still doesn't have any of his insulin pump supplies or insulin.
GAP closed and pt was transitioned off insulin infusion to SQ injections yesterday at 21:00
Glucose stable w/o hypoglycemia. Will change Lantus to 10 units in AM, 1st dose NOW.
Start NovoLog 5 units AC. Pt's insulin requirement while using pump was 24 hour basal insulin 8.7 units and carb ratio 1:10
Please hold 5 units standing dose if patient does not eat meal.
Pt dose not have his insulin pump supplies with him at this moment, instructed pt to contact family and have insulin and pump supplies brought in.
Diabetes plan of care discussed with pt and Nurse
Diabetes History
- -
Type of Diabetes: 1
Pre-Admission Diabetes Regimen
03/31/24 03/31/24 03/31/24
10:24 12:31 16:10
Creatinine 8.1 H* 5.7 H* 3.5 H
03/31/24 03/31/24 04/01/24
20:11 22:12 05:37
Creatinine 4.2 H* 4.2 H* 4.6 H*
Insulin Pump Settings
IP Diabetes Regimen
03/31/24 03/31/24 03/31/24
09:09 10:24 11:23
Glucose 81
POC Glucose 124 H 57 L
03/31/24 03/31/24 03/31/24
12:03 12:31 14:29
Glucose 88
POC Glucose 94 83
03/31/24 03/31/24 03/31/24
16:10 17:57 20:00
Glucose 87
POC Glucose 115 H 114 H 212 H
03/31/24 03/31/24 03/31/24
20:11 20:57 22:12
Glucose 220 H 180 H
POC Glucose 190 H 193 H
03/31/24 04/01/24 04/01/24
23:00 03:29 05:36
Glucose
POC Glucose 176 H 180 H 149 H
04/01/24
05:37
Glucose 146 H
POC Glucose
Patient Education
[2024-04-01] MEDS: ROXICODONE 5 MG PO ×2 (08:43→13:13)
--- NOTE | 2024-04-01 09:09 | PTCARENOTE ---
patient received, assessments per work list. patient c/o severe pain. requesting dilaudid IV.this sheet writer offered oxycodone, patient took oxycodone after much discussion. monitor nsr. left av fistula intact, right midline in place. pericardial drain
with dressing intact, draining dark bloody fluid. lungs with diminished breath sounds. abdomen firm, distended. hyperactive bowel sounds. refused bowel regime. call luevano in place
[2024-04-01 09:17] LABS: Glucose - Point of Care 136 mg/dl (70-99)
[2024-04-01] MEDS: LANTUS 0.100000000000000006 UNITS SC (09:38)
[2024-04-01] MEDS: NOVOLOG FLEXPEN 5 UNITS SC (09:39)
[2024-04-01] MEDS: NOVOLOG FLEXPEN-LOW RESISTANCE SC ×2 (11:38→16:18)
[2024-04-01] MEDS: NOVOLOG FLEXPEN SC ×2 (11:38→16:18)
[2024-04-01 11:42] LABS: Glucose - Point of Care 65 mg/dl (70-99)
[2024-04-01] MEDS: DEXTROSE 50% SYRINGE 12.5 GRAMS IV (12:06)
[2024-04-01 12:08] LABS: Glucose - Point of Care 55 mg/dl (70-99)
--- NOTE | 2024-04-01 12:12 | W.PN.CD ---
Today's Communication / Plan
-
Monitor drain output.
When output is < 1 ml/hour x 12-24 hours, we will repeat echo prior to pulling the drain.
Follow up pathology/cytology.
Impression / Plan
-
Impression/Plan: 34 y/o male tobacco user with IDDM, HTN, pHTN, Hx of PE and noncompliance complicated by ESRD admitted with new PAF and PEA arrest from 03/13/2024 - 03/27/2024, leaving AMA, but then representing with chest pain (likely MSK from CPR)
and new, large pericardial effusion associated with hypotension/LOC during HD.
#Pericardial effusion
-Acute.
-S/P pericardiocentesis for 385 mL of bloody/maroon fluid.
-Exudate. Fluid protein 5.0:Serum protein 6.6; fluid LDH 1666:serum LDH pending; fluid Hct 9.1:serum Hct 26.5.
-Vacutainer has significant bloody volume. Marked and dated/timed.
-Monitor output. When output is < 1 mL/hour x 12/24 hours, we will repeat limited echo to ensure resolution of effusion prior to pulling drain.
#Pleural effusion
-Moderate right.
-May need tap.
#Splenic infarcts
-Noted on CT scan.
-Cause unclear, does have PAF, but can't be on AC currently with pericardial effusion.
-Hx PE.
#PAF
-Stable in SR.
-Last admit, OAC not recommended given long-standing non-compliance.
#HTN
-BP on low end.
-Medications currently on hold.
#ESRD
-Chronic, stable.
-REVERSE ENGINEER per nephrology.
#IDDM:
-Diabetic NEWS OPERATIONS MANAGER following.
#Tobacco abuse:
-Recommend cessation.
Subjective/Interval History:
Pericardiocentesis yesterday.
Remains on 1LNC.
Midodrine added.
DATA:
Pericardiocentesis, 03/31/2024:
Conclusions:
1. Successful placement of a 6 Indian pericardial drain via apical approach with 385 mL of bloody/maroon fluid evacuated and reduction of pericardial pressure from 21 mmHg to 7 mmHg.
2. Pericardial fluid has been sent for laboratory analysis.
CT Chest, 03/31/2024:
IMPRESSION:
1. No evidence of pulmonary embolism or thoracic aortic dissection.
2. Moderate pericardial effusion, measuring up to 1.9 cm in thickness.
3. Moderate right pleural effusion. Airspace consolidation at the right lung base which may represent subsegmental atelectasis or pneumonia.
4. Small left pleural effusion. Mild left basilar airspace consolidation.
5. Acute fractures involving the right third through fifth ribs near the mid axillary line.
6. Wedge-shaped areas of hypoenhancement within the spleen, which are new compared to prior abdominal pelvic CT dated 02/22/2024, likely representing splenic infarcts.
7. Dilated tortuous venous structure within the left retropectoral axillary region, partially imaged on the current study, of unknown etiology. Consider venous ultrasound of the left upper extremity for further characterization.
Physical Exam
Vital Signs/Labs
Vital Signs
Temp Pulse Resp BP Pulse Ox
37.1 C 90 30 110/53 98
04/01/24 07:55 04/01/24 11:00 04/01/24 11:00 04/01/24 11:00 04/01/24 11:00
03/31/24 04/01/24 04/02/24
11:59 11:59 11:59
Actual Weight 67.2 kg 66.2 kg
04/01/24 05:37
04/01/24 05:37
PT 19.7 Sec (11.4-14.6) H 03/31/24 03:46
INR 1.68 03/31/24 03:46
LAB Results
03/31/24
00:09
Troponin I 0.023
Physical Exam
Constitutional: No acute distress and Comfortable
EENT: Anicteric and Moist mucous membranes
Cardiovascular: Rhythm & rate is regular, Pedal edema is absent, JVD pressure is normal, S1S2 is normal and Murmur/rub/gallop absent
Respiratory: Respiratory effort normal, Lungs clear to auscul., Wheeze Absent, Crackles Absent and Rhonchi Absent
GI: Soft, Distention absent, Flat, Non tender and Normal bowel sounds
Neuro/Psych: AO x 3
Other: Cardiac Device Site (Pericardiocentesis access site is C/D/I.)
Data Reviewed
-
Date of Service: April 01, 2024
Medical Decision Making: Reviewed Test Results, Independent Historian Assessment and Test Interpretation
EKG: Tracing Personally Visualized and interpreted and Report Reviewed by me
Echo: Tracing Personally Visualized and interpreted and Report Reviewed by me
X-Ray/CT/US/MRI/NUC/PET: Image Personally Visualized and interpreted and Report Reviewed by me
Medical Tests (PFT, Pathology etc): Image Personally Visualized and interpreted and Report Reviewed by me
Labs: Labs Reviewed by me and Labs Ordered by me
Old Records: Reviewed
--- NOTE | 2024-04-01 12:26 | PTCARENOTE ---
Addendum entered by Ally Winter RN 04/01/24 13:14:
patient requesting Benadryl for itch. hospitalist updated by titus text
Original Note:
patient reassessed. director economic and hospitalist in. patient pre lunch accu check 65, juice given(patient sated he needed 2, 'one won't do anything'. repeat 55, another 2 juices taken, however patient requested D50. administered. patient repeat accu
check 99. patient ate 50% of lunch. director economic updated. titus text to diabetic DEPUTY CHIEF EXECUTIVE to update with above
[2024-04-01 12:32] LABS: Glucose - Point of Care 99 mg/dl (70-99)
[2024-04-01] MEDS: ProAmatine 5 MG PO ×2 (13:10→18:03)
[2024-04-01] MEDS: BENADRYL 25 MG PO ×3 (14:09→23:11)
[2024-04-01 14:30] LABS: Glucose - Point of Care 168 mg/dl (70-99)
[2024-04-01 16:24] LABS: Glucose - Point of Care 129 mg/dl (70-99)
--- NOTE | 2024-04-01 16:46 | PTCARENOTE ---
no changes in assessments. IVU level of care orders
[2024-04-01 17:11] LABS: Glucose - Point of Care 110 mg/dl (70-99)
[2024-04-01 18:15] LABS: Glucose - Point of Care 143 mg/dl (70-99)
[2024-04-01] MEDS: SENOKOT 17.1999999999999993 MG PO (20:47)
[2024-04-01] MEDS: TRILEPTAL 150 MG PO (21:24)
[2024-04-01 22:04] LABS: Glucose - Point of Care 82 mg/dl (70-99)
[2024-04-02] VITALS (33 sets, daily range): BP systolic 109–181; BP diastolic 50–105; PULSE 95–96; O2SAT 97–98; BMI 21.4; BMI 23.0
--- NOTE | 2024-04-02 00:21 | PTCARENOTE ---
Received patient AAOx4, following commands, complaining of 8/10 chest pain. Dilaudid given. Normal sinus 70s-90s. BP stable. SCDs on. Palpable radial and pedal pulses bilaterally. Pericardial drain dressing CDI. On 1 liter nasal cannula, saturating
98%. Lung sounds diminished throughout. Hyperactive bowel sounds, abdomen soft, and round. No BM, senna given. Oliguric. Scabs throughout body. Right midline patent, capped, WNL. Right hand PIV WNL. Call luevano within reach, safe environment
maintained.
[2024-04-02] MEDS: DEXTROSE 50% SYRINGE 12.5 GRAMS IV ×3 (03:15→15:16)
[2024-04-02 03:21] LABS: Glucose - Point of Care 45 mg/dl (70-99)
[2024-04-02] MEDS: DILAUDID 0.25 MG IV ×5 (03:29→21:23)
[2024-04-02 03:46] LABS: Glucose - Point of Care 115 mg/dl (70-99)
[2024-04-02 04:47] LABS: Glucose - Point of Care 96 mg/dl (70-99)
[2024-04-02 05:43] LABS: Glucose - Point of Care 85 mg/dl (70-99)
--- NOTE | 2024-04-02 06:48 | PN.DE.MGMTRT ---
Insulin Management
- -
04/02/2024: Diabetes Management F/U:
34 year old male p/w c/o chest pain, noted for severe DKA, GAP 28. Pt is well known to me from recurrent hospital admissions that have all resulted in leaving AMA. Last hospital admission: 03/13/24 - 03/26/24 due to hypotension, bradycardia and PEA
arrest--> left AMA.
PMH: ETOH use disorder, recurrent DKA, ESRD on HD (MWF), Chronic Abdominal Pain, Gastroparesis, Pulmonary hypertension, Polysubstance abuse
Anxiety, Anemia and T1DM for 18 years. He was using a Medtronic 770 pump with NovoLog insulin and Guardian sensor. States he has not used his insulin pump since leaving hospital.
Patient awake, alert, oriented, resting in bed, able to discuss diabetes mgt. States he still doesn't have any of his insulin pump supplies or insulin.
Currently on HD. Note for recurrent episodes of hypoglycemia as low as 45 @03:11AM and 66 @ 07:38 this AM
Of note, pt only received Lantus 10 units in AM and NovoLog 5units at breakfast yesterday.
Pt's insulin requirement while using pump was 24 hour basal insulin 8.7 units and carb ratio 1:10 with an A1C of 9.7%
Will reduce Lantus to [address] all standing AC insulin orders on hold and use corrective insulin if needed. Will reassess this evening.
Diabetes plan of care discussed with pt and Nurse
Pt dose not have his insulin pump supplies with him at this moment, instructed pt to contact family and have insulin and pump supplies brought in.
Diabetes History
- -
Type of Diabetes: 1
Pre-Admission Diabetes Regimen
Insulin Pump Settings
IP Diabetes Regimen
04/01/24 04/01/24 04/01/24
09:06 11:31 11:57
POC Glucose 136 H 65 L 55 L*
04/01/24 04/01/24 04/01/24
12:21 14:18 16:12
POC Glucose 99 168 H 129 H
04/01/24 04/01/24 04/01/24
17:00 18:04 21:53
POC Glucose 110 H 143 H 82
04/02/24 04/02/24 04/02/24
03:11 03:35 04:36
POC Glucose 45 L* 115 H 96
04/02/24
05:31
POC Glucose 85
Meal type: Dinner
Meal type: Lunch
Meal type: Breakfast
Amount consumed: 100%
Amount consumed: 50%
Amount consumed: 75%
Patient Education
[2024-04-02] MEDS: HEPARIN 5000 UNITS SC ×2 (07:20→16:18)
[2024-04-02] MEDS: ProAmatine 5 MG PO ×2 (07:20→13:04)
[2024-04-02] MEDS: LIDOCAINE 4% PATCH 1 PATCH TOPICAL (07:21)
[2024-04-02] MEDS: ProAmatine PO ×2 (07:21→18:03)
[2024-04-02] MEDS: FOLVITE 1 MG PO (07:21)
[2024-04-02] MEDS: NOVOLOG FLEXPEN SC (07:22)
[2024-04-02] MEDS: BENADRYL 25 MG PO ×3 (07:32→17:04)
[2024-04-02] MEDS: THIAMINE INJECTION 200 MG IV ×2 (07:45→20:34)
[2024-04-02 07:49] LABS: Glucose - Point of Care 66 mg/dl (70-99)
[2024-04-02] MEDS: NOVOLOG FLEXPEN-LOW RESISTANCE SC ×3 (07:57→15:37)
--- NOTE | 2024-04-02 08:01 | W.PN.HOSP.TC ---
Today's Communication/Plan
-
Repeat echocardiogram today. Adjust insulin. PT OT eval. Cardiac monitoring.
Assessment / Plan
Assessment / Plan
Physical exam:
General: Chronically ill
HEENT: Normocephalic, Atraumatic and Moist Mucous Membranes
Respiratory: Clear to Auscultation; Negative Wheezes, Rales or Rhonchi
Cardiac: Pericardiocentesis site clean dry and intact. Regular Rhythm and S1/S2
GI: Soft, Nontender and Nondistended
Musculoskeletal: No Clubbing, No Cyanosis and No Edema
Neuro: Awake, Alert and Oriented
Psych: Calm
A/P:
Pericardial effusion with impending cardiac tamponade:
Pericardiocentesis with 385 cc exudative fluid on 03/31. Pericardial pressure went from 21 down to 7 mmHg postprocedure.
Pericardial drain cultures pending but no growth so far.
Continue to monitor pericardial drain output
Cardiology consult and follow-up appreciated
Per cardiology once output has decreased to 1 cc/hr then will repeat echocardiogram and pull the drain. May happen today or tomorrow.
Pain control
Consider colchicine
PT OT eval
End-stage renal disease on hemodialysis:
Received hemodialysis today
Continue dialysis per nephrology
Right pleural effusion:
Will obtain chest x-ray PA and lateral tomorrow to evaluate pleural effusion if needs thoracentesis or not
Paroxysmal atrial fibrillation:
Remains in normal sinus rhythm
No anticoagulation given recent pericardial effusion and noncompliance prior to this
Splenic infarct:
Might need hypercoagulable state workup down the road
For now no need for anticoagulation for same reason as above with A-fib, and monitor symptoms
Diabetes mellitus type 1/DKA, resolved:
Insulin pump on hold but once he has his supplies we can restart.
Some episodes of hypoglycemia
Lantus 8 units daily
Continue insulin sliding scale
Hypotension:
Likely cardiac in nature but now blood pressure starts to go up. See below
On midodrine.
Hypertension:
Resume carvedilol at a lower dose 12.5 mg twice a day with holding parameters (he is on 25 mg twice a day)
Continue hold amlodipine
Monitor blood pressure and adjust medications accordingly
Alcohol use disorder/polysubstance abuse in the past:
Monitor for alcohol withdrawal and continue with protocol.
Caution with narcotics and use only if needed and short-term and while supervised.
DVT prophylaxis-heparin sq
CODE STATUS: Full code
Total time spent on today's encounter was 52 minutes which included time spent in counseling the patient/family regarding diagnosis and treatment plan as listed above, goals of care, and symptom management. Case was discussed with nursing staff,
specialists, and care coordinators/case management. All labs and imaging personally reviewed by me. Remainder the time spent in detailed review of previous records, lab data, imaging, and other medical provider documentation.
Anticipated Discharge: 24 - 48 hours
Subjective/Interval History
-
Date of Service: April 02, 2024
Patient seen and examined. Patient states pain is better overall. No shortness of breath. Afebrile
Objective Data
-
Labs:
Laboratory Results
04/02/24
07:00
WBC Pending
Hgb Pending
Hct Pending
Plt Count Pending
Sodium Pending
Potassium Pending
Chloride Pending
Carbon Dioxide Pending
BUN Pending
Creatinine Pending
Glucose Pending
Calcium Pending
Vital Signs:
Vital Signs
Temp Pulse Resp BP Pulse Ox
98.2 F 96 14 151/90 97
04/02/24 07:58 04/02/24 07:20 04/02/24 06:00 04/02/24 07:20 04/02/24 06:00
I&O
04/01/24 04/02/24 04/03/24
06:59 06:59 06:59
Intake Total 201.5 / 201.5 720 / 720
Output Total 100 / 100
Balance 201.5 / 201.5 620 / 620
[2024-04-02 08:13] LABS: Glucose - Point of Care 96 mg/dl (70-99)
--- NOTE | 2024-04-02 08:34 | W.PN.CD ---
Today's Communication / Plan
-
Limited TTE this morning.
If effusion remains resolved, we will pull drain.
Question for nephrology: role for colchicine in ESRD?
Impression / Plan
-
Impression/Plan: 34 y/o male tobacco user with IDDM, HTN, pHTN, Hx of PE and noncompliance complicated by ESRD admitted with new PAF and PEA arrest from 03/13/2024 - 03/27/2024, leaving AMA, but then representing with chest pain (likely MSK from CPR)
and new, large pericardial effusion associated with hypotension/LOC during HD.
#Pericardial effusion
-Acute.
-S/P pericardiocentesis for 385 mL of bloody/maroon fluid.
-Exudate. Fluid protein 5.0:Serum protein 6.6; fluid LDH 1666:serum LDH pending; fluid Hct 9.1:serum Hct 26.5.
-Vacutainer has significant bloody volume. 12 hour output = 10 mL
-If we are treating empirically as pericarditis, role for colchicine? I will discuss with nephrology in the context of MAINTENANCE LEADER.
-Limited TTE this morning. If effusion remains resolved, we will pull drain.
#Pleural effusion
-Moderate right.
-May need tap.
#Splenic infarcts
-Noted on CT scan.
-Cause unclear, does have PAF, but can't be on AC currently with pericardial effusion.
-Hx PE.
#PAF
-Stable in SR.
-Last admit, OAC not recommended given long-standing non-compliance.
#HTN
-BP on low end.
-Medications currently on hold.
#ESRD
-Chronic, stable.
-MAINTENANCE LEADER per nephrology.
#IDDM:
-Diabetic DIRECTOR STRATEGIC ACCOUNT MANAGEMENT following.
#Tobacco abuse:
-Recommend cessation.
Subjective/Interval History:
No acute events overnight.
BP is much improved.
DATA:
Pericardiocentesis, 03/31/2024:
Conclusions:
1. Successful placement of a 6 [place] pericardial drain via apical approach with 385 mL of bloody/maroon fluid evacuated and reduction of pericardial pressure from 21 mmHg to 7 mmHg.
2. Pericardial fluid has been sent for laboratory analysis.
CT Chest, 03/31/2024:
IMPRESSION:
1. No evidence of pulmonary embolism or thoracic aortic dissection.
2. Moderate pericardial effusion, measuring up to 1.9 cm in thickness.
3. Moderate right pleural effusion. Airspace consolidation at the right lung base which may represent subsegmental atelectasis or pneumonia.
4. Small left pleural effusion. Mild left basilar airspace consolidation.
5. Acute fractures involving the right third through fifth ribs near the mid axillary line.
6. Wedge-shaped areas of hypoenhancement within the spleen, which are new compared to prior abdominal pelvic CT dated 02/22/2024, likely representing splenic infarcts.
7. Dilated tortuous venous structure within the left retropectoral axillary region, partially imaged on the current study, of unknown etiology. Consider venous ultrasound of the left upper extremity for further characterization.
Physical Exam
Vital Signs/Labs
Vital Signs
Temp Pulse Resp BP Pulse Ox
36.8 C 96 14 151/90 97
04/02/24 07:58 04/02/24 07:20 04/02/24 06:00 04/02/24 07:20 04/02/24 06:00
03/31/24 04/01/24 04/02/24
11:59 11:59 11:59
Actual Weight 67.2 kg 66.2 kg 61.9 kg
PT 19.7 Sec (11.4-14.6) H 03/31/24 03:46
INR 1.68 03/31/24 03:46
LAB Results
03/31/24
00:09
Troponin I 0.023
Physical Exam
Constitutional: No acute distress and Comfortable
EENT: Anicteric and Moist mucous membranes
Cardiovascular: Rhythm & rate is regular, Pedal edema is absent, JVD pressure is normal, S1S2 is normal and Murmur/rub/gallop absent
Respiratory: Respiratory effort normal, Lungs clear to auscul., Wheeze Absent, Crackles Absent and Rhonchi Absent
GI: Soft, Distention absent, Flat, Non tender and Normal bowel sounds
Neuro/Psych: AO x 3
Other: Cardiac Device Site (Pericardial drain is C/D/I.)
Data Reviewed
-
Date of Service: April 02, 2024
Medical Decision Making: Reviewed Test Results, Independent Historian Assessment and Test Interpretation
EKG: Tracing Personally Visualized and interpreted and Report Reviewed by me
Echo: Tracing Personally Visualized and interpreted and Report Reviewed by me
X-Ray/CT/US/MRI/NUC/PET: Image Personally Visualized and interpreted, Report Reviewed by me and Discussed with Patient
Medical Tests (PFT, Pathology etc): Image Personally Visualized and interpreted, Report Reviewed by me and Discussed with Patient
Labs: Labs Reviewed by me and Labs Ordered by me
--- NOTE | 2024-04-02 08:35 | PTCARENOTE ---
report received. assessments pr work list. patient hypoglycemic. refused juice, requested D50. administered, with good results. breakfast ordered.patient found with dressing removed from pericardial drain. cleansed and tegaderm applied. patient
instructed on importance of not remiving, infection risk. HD RN at bedside. discussed plan of care with diabetic RADIO INTERFERENCE EXPERT. lantus dose reduced. to give lantus when HD is completed
[2024-04-02] MEDS: SENOKOT PO ×2 (08:39→20:36)
[2024-04-02 08:40] LABS: % Basophils 1.1 % (0-2); % Eosinophils 1.8 % (0-6); % Immature Granulocytes 0.5 % (0-0.5); % Lymphocytes 19.3 % (20.5-51.1); % Monocytes 10.2 % (1.7-9.3); % Neutrophils 67.1 % (42.2-75.2); Absolute Basophils 0.1 10^3/uL (0-0.2); Absolute Eosinophils 0.1 10^3/uL (0-0.7); Absolute Lymphocytes 1.4 10^3/uL (1.2-3.4); Absolute Monocytes 0.8 10^3/uL (0.1-0.6); Hematocrit 27.9 % (39.0-52.0); Hemoglobin 9.4 g/dL (13.0-18.0); Mean Corp Hgb Conc. 33.7 g/dL (33.0-37.0); Mean Corpuscular Hgb 31.8 pg (27.0-31.0); Mean Corpuscular Volume 94.3 fL (80.0-94.0); Mean Platelet Volume 9.4 fL (7.4-10.4); Nucleated Red Blood Cells % 0 % (-); Platelet Count 390 10^3/uL (130-400); Red Blood Cell Count 2.96 10^6/uL (4.70-6.10); Red Cell Dist. Width 17.9 % (11.5-14.5); White Blood Cell Count 7.4 10^3/uL (4.8-10.8)
[2024-04-02] MEDS: RETACRIT 10000 UNITS IV (08:57)
[2024-04-02 09:39] LABS: Blood Urea Nitrogen 39 mg/dl (9-20); Calcium 8.7 mg/dl (8.4-10.2); Carbon Dioxide 24 mmol/L (22-30); Chloride 98 mmol/L (98-107); Estimated Creatinine Clearance 16 ml/min; Glucose 101 mg/dl (70-99); LDH 236 U/L (120-246); Potassium 4.6 mmol/L (3.5-5.1); Sodium 134 mmol/L (135-145); eGFR 12.62
[2024-04-02 10:20] LABS: Glucose - Point of Care 106 mg/dl (70-99)
[2024-04-02] MEDS: LANTUS 0.0800000000000000017 UNITS SC (11:52)
[2024-04-02 11:56] LABS: Glucose - Point of Care 116 mg/dl (70-99)
--- NOTE | 2024-04-02 12:29 | PTCARENOTE ---
completed HD without issue.
[2024-04-02] MEDS: COREG 12.5 MG PO ×2 (13:49→20:33)
--- NOTE | 2024-04-02 14:00 | CM ---
CM following re: discharge planning.
Discussed in rounds, reviewed pt's chart, met with pt. Pt reports he is doing better overall, no shortness of breath.
[facility] following.
D/C plan: home with resumptions of HD treatment at [facility], [facility] to follow and family support.
CM will follow with discharge plan updates as hospitalization progresses
--- NOTE | 2024-04-02 14:46 | W.PN.NEPH.HD ---
Assessment
-
- comfortable on HD
Progress Note - Hemodialysis
-
Date of Service: April 02, 2024
Duration: 30 minutes and 3 hours
Potassium Bath: 3
Calcium Bath: 2.5
Opti-Dialyzer: 160
Ultrafiltration: Other
Blood Flow: 400
Dialysate Flow: 600
[2024-04-02 15:24] LABS: Glucose - Point of Care 44 mg/dl (70-99)
--- NOTE | 2024-04-02 15:37 | PTCARENOTE ---
patient again hypoglycemic, see work list docuumentation. tiger text update to diabetic SANITATION ASSOCIATE and pharmacist to update
[2024-04-02 15:42] LABS: Glucose - Point of Care 106 mg/dl (70-99)
[2024-04-02 17:45] LABS: Glucose - Point of Care 136 mg/dl (70-99)
--- NOTE | 2024-04-02 17:56 | W.PN.UPDATE ---
Update Note
Progress Note Update
No further drainage from the pericardial drain.
Reviewed echocardiogram. This shows a small amount of persistent, probably loculated fluid around the lateral aspect of the heart but a dilated right ventricle with not evidence of tamponade.
Pericardial drain was removed and the access site was covered with gauze and a tegaderm.
The patient tolerated the procedure well.
[2024-04-02 19:02] LABS: Glucose - Point of Care 147 mg/dl (70-99)
--- NOTE | 2024-04-02 19:30 | PTCARENOTE ---
Pt aox3, VSS, NSR on monitor, report called to Renato ESPINOSA on 2N. Pt had large amounts of drainage from the Pericardial drain puncture. Informed Christie WRIGHT, redressed and transferred pt to [id number]
[2024-04-02] MEDS: FLUSH (NSS) 2 FLUSH IV ×2 (20:35→21:25)
[2024-04-02] MEDS: TRILEPTAL 150 MG PO (21:25)
[2024-04-02 22:20] LABS: Glucose - Point of Care 134 mg/dl (70-99)
[2024-04-02] MEDS: HEPARIN SC (23:13)
[2024-04-03] MEDS: DILAUDID 0.25 MG IV ×6 (01:39→22:48)
[2024-04-03] MEDS: BENADRYL 25 MG PO (01:39)
[2024-04-03] MEDS: FLUSH (NSS) 2 FLUSH IV ×2 (01:41→05:39)
[2024-04-03 03:21] LABS: Glucose - Point of Care 108 mg/dl (70-99)
[2024-04-03 03:35] VITALS: BP 157/83
[2024-04-03 06:00] VITALS: BMI 23.9
[2024-04-03 06:48] LABS: Hematocrit 26.7 % (39.0-52.0); Hemoglobin 8.6 g/dL (13.0-18.0); Mean Corp Hgb Conc. 32.2 g/dL (33.0-37.0); Mean Corpuscular Hgb 30.7 pg (27.0-31.0); Mean Corpuscular Volume 95.4 fL (80.0-94.0); Mean Platelet Volume 9.5 fL (7.4-10.4); Platelet Count 331 10^3/uL (130-400); Red Cell Dist. Width 17.8 % (11.5-14.5); White Blood Cell Count 5.6 10^3/uL (4.8-10.8)
[2024-04-03 07:20] LABS: Blood Urea Nitrogen 26 mg/dl (9-20); Carbon Dioxide 24 mmol/L (22-30); Chloride 99 mmol/L (98-107); Estimated Creatinine Clearance 24 ml/min; Glucose 100 mg/dl (70-99); Potassium 4.2 mmol/L (3.5-5.1); Sodium 134 mmol/L (135-145); eGFR 18.75
[2024-04-03 07:45] VITALS: BP 153/81
[2024-04-03 07:58] LABS: Glucose - Point of Care 103 mg/dl (70-99)
[2024-04-03] MEDS: LANTUS 0.0500000000000000028 UNITS SC (08:42)
[2024-04-03] MEDS: COREG 12.5 MG PO ×2 (08:43→19:45)
[2024-04-03] MEDS: NOVOLOG FLEXPEN-LOW RESISTANCE SC ×2 (08:43→16:30)
[2024-04-03] MEDS: HEPARIN 5000 UNITS SC ×2 (08:43→17:37)
[2024-04-03] MEDS: VITAMIN B1 100 MG PO ×2 (08:43→19:45)
[2024-04-03] MEDS: FOLVITE 1 MG PO (08:44)
[2024-04-03] MEDS: SENOKOT PO ×2 (08:44→19:45)
[2024-04-03] MEDS: ProAmatine PO ×2 (08:44→12:05)
[2024-04-03] MEDS: LIDOCAINE 4% PATCH 1 PATCH TOPICAL (08:44)
[2024-04-03 11:27] VITALS: BP 171/96
--- NOTE | 2024-04-03 11:44 | W.PN.CD ---
Addendum entered and electronically signed by Chau Shook MD 04/03/24 16:05:
I saw and examined the patient.
The ENTRY LEVEL SALES REPRESENTATIVE's note was reviewed and I agree with the note.
Comment: He has no complaint today, still some cp but not severe, taking deep breaths. on exam lungs are cta, heart is rrr, extremity without edeama. D/w Dr brock he had a likely traumatic effusion, can consider op repeat echo in a week. Will hold
off on colchicine. Will sign off.
Original Note:
Today's Communication / Plan
-
monitor for recurrent symptoms
echo next week
add back amlodipine for BP
await nephrology input about colchicine use
Impression / Plan
-
Impression/Plan: 34 y/o male tobacco user with IDDM, HTN, pHTN, Hx of PE and noncompliance complicated by ESRD admitted with new PAF and PEA arrest from 03/13/2024 - 03/27/2024, leaving AMA, but then representing with chest pain (likely MSK from CPR)
and new, large pericardial effusion associated with hypotension/LOC during HD.
#Pericardial effusion
-Acute.
-S/P pericardiocentesis for 385 mL of bloody/maroon fluid.
-Exudate. Fluid protein 5.0:Serum protein 6.6; fluid LDH 1666:serum LDH pending; fluid Hct 9.1:serum Hct 26.5.
-drain removed 04/02/24.
-await nephrology input in regards to colchicine use.
#Pleural effusion
-Moderate right. Awaiting f/u CXR today.
#Splenic infarcts
-Noted on CT scan.
-Cause unclear, does have PAF, but can't be on AC currently with recent pericardial effusion.
-Hx PE.
#PAF
-Stable in SR.
-Last admit, OAC not recommended given long-standing non-compliance.
# NSVT: short run on tele 4 bt. on coreg. monitor for now
#HTN
-meds were held no BP's high . restart antihypertensives. and monitor.
#ESRD
-Chronic, stable.
-EMERGENCY DETAIL DRIVER per nephrology.
#IDDM:
-Diabetic ENTRY LEVEL SALES REPRESENTATIVE following.
#Tobacco abuse:
-Recommend cessation.
Subjective/Interval History:
Denies SOB. Some mild chest discomfort which he describes as chronic. No worse since pulling pericardial drain.
DATA:
Pericardiocentesis, 03/31/2024:
Conclusions:
1. Successful placement of a 6 [place] pericardial drain via apical approach with 385 mL of bloody/maroon fluid evacuated and reduction of pericardial pressure from 21 mmHg to 7 mmHg.
2. Pericardial fluid has been sent for laboratory analysis.
CT Chest, 03/31/2024:
IMPRESSION:
1. No evidence of pulmonary embolism or thoracic aortic dissection.
2. Moderate pericardial effusion, measuring up to 1.9 cm in thickness.
3. Moderate right pleural effusion. Airspace consolidation at the right lung base which may represent subsegmental atelectasis or pneumonia.
4. Small left pleural effusion. Mild left basilar airspace consolidation.
5. Acute fractures involving the right third through fifth ribs near the mid axillary line.
6. Wedge-shaped areas of hypoenhancement within the spleen, which are new compared to prior abdominal pelvic CT dated 02/22/2024, likely representing splenic infarcts.
7. Dilated tortuous venous structure within the left retropectoral axillary region, partially imaged on the current study, of unknown etiology. Consider venous ultrasound of the left upper extremity for further characterization.
Physical Exam
Vital Signs/Labs
Vital Signs
Temp Pulse Resp BP Pulse Ox
100.4 F H 87 20 171/96 94
04/03/24 11:27 04/03/24 11:27 04/03/24 11:27 04/03/24 11:27 04/03/24 11:27
04/02/24 04/03/24 04/04/24
06:59 06:59 06:59
Actual Weight 61.9 kg 66.542 kg
04/03/24 06:30
04/03/24 06:30
PT 19.7 Sec (11.4-14.6) H 03/31/24 03:46
INR 1.68 03/31/24 03:46
Physical Exam
Constitutional: No acute distress
Cardiovascular: Rhythm & rate is regular and Pedal edema is absent
Respiratory: Respiratory effort normal and Lungs clear to auscul.
Neuro/Psych: AO x 3
Data Reviewed
-
Date of Service: April 03, 2024
EKG: Other (Tele: NSR 4 bt NSVT )
Labs: Labs Reviewed by me
[2024-04-03 12:18] LABS: Glucose - Point of Care 266 mg/dl (70-99)
[2024-04-03] MEDS: NORVASC 5 MG PO (12:24)
[2024-04-03] MEDS: NOVOLOG FLEXPEN 5 UNITS SC ×2 (12:25→16:31)
[2024-04-03] MEDS: NOVOLOG FLEXPEN-LOW RESISTANCE 3 UNITS SC (12:25)
--- NOTE | 2024-04-03 14:21 | W.PN.HOSP.TC ---
Today's Communication/Plan
-
Oxygen supplementation
Blood cultures
Thoracentesis on the right.
Empiric antibiotics: Vancomycin/Zosyn
Start midodrine.
Adjust antihypertensive regimen for hypertension.
Assessment / Plan
Assessment / Plan
A/P:
Pericardial effusion with impending cardiac tamponade:
Pericardiocentesis with 385 cc exudative fluid on 03/31. Pericardial pressure went from 21 down to 7 mmHg postprocedure.
Pericardial drain cultures pending but no growth so far.
Pericardial drain removed on 04/02.
Follow-up echocardiogram on 04/02 with normal left ventricular size and systolic function and minimal pericardial effusion.
Pain control
Consider colchicine
PT OT eval
Acute hypoxic respiratory failure suspect secondary to right pleural effusion.
Recent cardiac arrest
Right rib fractures
CT scan and follow-up chest x-ray with at least moderate right pleural effusion.
Febrile.
Pulse ox drops down to 80s while on room air.
Check blood cultures
Consult interventional radiology for thoracentesis.
Start empiric antibiotics covering nosocomial pathogens: Vancomycin/Zosyn adjusted to dialysis schedule.
History of PE
CT scan with no evidence of pulmonary embolism
Lower extremity ultrasound negative for DVT.
End-stage renal disease on hemodialysis:
Received hemodialysis today
Continue dialysis per nephrology
Paroxysmal atrial fibrillation:
Remains in normal sinus rhythm
No anticoagulation given recent pericardial effusion and noncompliance prior to this
Splenic infarct:
Might need hypercoagulable state workup down the road
For now no need for anticoagulation for same reason as above with A-fib, and monitor symptoms
Diabetes mellitus type 1/DKA, resolved:
Insulin pump on hold but once he has his supplies we can restart.
Transition to subcutaneous insulin with dose being adjusted.
Continue insulin sliding scale
Hypotension: Resolved
Okay to discontinue midodrine
Hypertension:
Resume carvedilol at a lower dose 12.5 mg twice a day with holding parameters (he is on 25 mg twice a day)
Resume amlodipine given elevated BP
Monitor blood pressure and adjust medications accordingly
Alcohol use disorder/polysubstance abuse in the past:
Monitor for alcohol withdrawal and continue with protocol.
Caution with narcotics and use only if needed and short-term and while supervised.
DVT prophylaxis-heparin sq
CODE STATUS: Full code
Total time spent on today's encounter was 52 minutes which included time spent in counseling the patient/family regarding diagnosis and treatment plan as listed above, goals of care, and symptom management. Case was discussed with nursing staff,
specialists, and care coordinators/case management. All labs and imaging personally reviewed by me. Remainder the time spent in detailed review of previous records, lab data, imaging, and other medical provider documentation.
Anticipated Discharge: > 48 hours
Subjective/Interval History
-
Date of Service: April 03, 2024
Objective Data
-
Labs:
Laboratory Results
04/03/24
06:30
WBC 5.6
Hgb 8.6 L
Hct 26.7 L
Plt Count 331
Sodium 134 L
Potassium 4.2
Chloride 99
Carbon Dioxide 24
BUN 26 H
Creatinine 4.1 H*
Glucose 100 H
Calcium 9.0
Vital Signs:
Vital Signs
Temp Pulse Resp BP Pulse Ox
100.4 F H 87 20 171/96 94
04/03/24 11:27 04/03/24 12:24 04/03/24 11:27 04/03/24 12:24 04/03/24 11:27
I&O
04/02/24 04/03/24 04/04/24
06:59 06:59 06:59
Intake Total 720 / 720 720 / 720
Output Total 100 / 100 0 / 0
Balance 620 / 620 720 / 720
Physical Exam
-
General: Well Developed and No Apparent Distress
HEENT: Normocephalic, Atraumatic and Moist Mucous Membranes
Respiratory: Other (Decreased breath sounds on the right)
Cardiac: Regular Rhythm and S1/S2; Negative Murmur, Rub or Gallop
GI: Soft, Nontender, Nondistended and Normal Bowel Sounds; Negative Organomegaly
Rectal: Deferred by Provider
Musculoskeletal: No Clubbing, No Cyanosis and No Edema
Skin: Negative Rash
Neuro: Nonfocal/Grossly Intact
[2024-04-03] MEDS: TYLENOL 650 MG PO (14:45)
--- NOTE | 2024-04-03 14:45 | PHA.VAN.IN ---
Assessment
- Assessment
Renal Function: Patient has ESRD, on chronic Hemodialysis
Hemodialysis Schedule: MWF
Maximum Temperature: 100.5
Concomitant Antimicrobials: piperacillin-tazobactam
Plan
- Plan
Initial / Loading Dose: 1500mg pending administration
Maintenance Regimen: dosing by level with consideration of HD
Monitoring: R 04/05
Pharmacokinetics Vancomycin I
- -
Patient Age: 34
Patient Sex: Male
Vancomycin Day #: 1
Indication: Pulmonary/Respiratory
Requesting Provider: Dr Camacho
Pertinent Antimicrobial Allergies:
no pertinent allergies
Height / Weight:
Height 5 ft 7 in
Actual Weight 66.542 kg
Pertinent Past Medical History: HD MWF
- Vital Signs / Lab Results
Temp Pulse Resp BP Pulse Ox
100.4 F H 87 20 171/96 94
04/03/24 11:27 04/03/24 12:24 04/03/24 11:27 04/03/24 12:24 04/03/24 11:27
Lab Results - Hematology
04/01/24 04/02/24 04/03/24
05:37 08:27 06:30
WBC 8.0 7.4 5.6
Lab Results - Chemistry
03/31/24 03/31/24 03/31/24
16:10 20:11 22:12
BUN 27 H 31 H 32 H
Creatinine 3.5 H 4.2 H* 4.2 H*
Estimated Creat Clear 28 23 23
04/01/24 04/02/24 04/03/24
05:37 08:27 06:30
BUN 36 H 39 H 26 H
Creatinine 4.6 H* 5.7 H* 4.1 H*
Estimated Creat Clear 21 16 24
Microbiology Results
03/31/24 12:31 Blood Culture - Preliminary
Blood/Venous No Growth in 72 hours- Final report to follow
05/29/24 12:31 Blood Culture - Preliminary
Blood/Venous No Growth in 72 hours- Final report to follow
03/31/24 16:17 Acid Fast Bacilli Smear - Preliminary
Pericardial Fluid Acid Fast Bacilli Culture - Preliminary
03/31/24 16:17 Body Fluid Culture - Final
Pericardial Fluid No Growth After 72 Hours
Gram Stain - Final
[2024-04-03 15:00] VITALS: BP 136/79
[2024-04-03 15:20] VITALS: BP 136/79
[2024-04-03] MEDS: VANCOCIN 300 ML IV (15:50)
[2024-04-03] MEDS: VANCOCIN 300 MG IV (15:50)
[2024-04-03 15:57] LABS: Glucose - Point of Care 125 mg/dl (70-99)
[2024-04-03] MEDS: BENADRYL 25 MG IV ×2 (17:37→22:44)
[2024-04-03] MEDS: ZOSYN 50 IV ×2 (17:37→23:19)
[2024-04-03 18:44] LABS: Glucose - Point of Care 73 mg/dl (70-99)
[2024-04-03 19:09] LABS: Glucose - Point of Care 56 mg/dl (70-99)
[2024-04-03] MEDS: DEXTROSE 50% SYRINGE 12.5 GRAMS IV (19:10)
[2024-04-03 19:29] LABS: Glucose - Point of Care 112 mg/dl (70-99)
[2024-04-03 19:43] VITALS: BP 129/82
[2024-04-03 21:38] LABS: Glucose - Point of Care 206 mg/dl (70-99)
[2024-04-03] MEDS: TRILEPTAL 150 MG PO (21:59)
[2024-04-03] MEDS: FLUSH (NSS) 3 FLUSH IV (22:47)
[2024-04-03] MEDS: HEPARIN SC (23:18)
[2024-04-03 23:26] LABS: Glucose - Point of Care 169 mg/dl (70-99)
[2024-04-04] VITALS (9 sets, daily range): BP systolic 82–164; BP diastolic 77–93; BMI 23.9
[2024-04-04] MEDS: BENADRYL 25 MG IV ×6 (03:08→23:53)
[2024-04-04] MEDS: DILAUDID 0.25 MG IV ×6 (03:09→23:54)
[2024-04-04] MEDS: FLUSH (NSS) 3 FLUSH IV (03:13)
[2024-04-04 03:20] LABS: Glucose - Point of Care 234 mg/dl (70-99)
[2024-04-04 07:12] LABS: Glucose - Point of Care 256 mg/dl (70-99)
[2024-04-04] MEDS: LANTUS 0.0500000000000000028 UNITS SC (07:28)
[2024-04-04] MEDS: NOVOLOG FLEXPEN 5 UNITS SC ×2 (07:28→11:39)
[2024-04-04] MEDS: NOVOLOG FLEXPEN-LOW RESISTANCE 3 UNITS SC (07:29)
[2024-04-04] MEDS: HEPARIN 5000 UNITS SC ×3 (07:30→23:16)
[2024-04-04] MEDS: LIDOCAINE 4% PATCH 1 PATCH TOPICAL (07:33)
[2024-04-04] MEDS: FOLVITE 1 MG PO (07:33)
[2024-04-04] MEDS: VITAMIN B1 100 MG PO ×2 (07:33→19:52)
[2024-04-04] MEDS: COREG 12.5 MG PO ×2 (07:36→19:51)
[2024-04-04] MEDS: NORVASC 10 MG PO (07:37)
[2024-04-04] MEDS: SENOKOT PO (07:37)
[2024-04-04] MEDS: ZOSYN 50 IV ×3 (07:40→23:16)
--- NOTE | 2024-04-04 08:33 | PHA.VAN.FU ---
Vancomycin Assessment / Plan
- Assessment
Hemodialysis Schedule: MWF
Last Hemodialysis performed: monday 04/02
WBC's are: WNL
In the past 24 hrs, patient has been: Febrile (100.4 on 04/03 11:27)
Concomitant Antimicrobials: piperacillin/tazo
- Dosing Plan
Continue: dose by level HD days
Dosing by Level: Hold off on dosing today
- Monitoring Plan
Random Level: ordered for AM 04/05/24
- Follow Up
Pharmacy will continue to follow.
Vancomycin Follow UP
- -
Patient Age: 34
Patient Sex: Male
Vancomycin Day #: 2
Indication: Pulmonary/Respiratory
Requesting Provider: Dr Camacho
Pertinent Antimicrobial Allergies:
no pertinent allergies
Height / Weight:
Height 5 ft 7 in
Actual Weight 69.116 kg
Pertinent Past Medical History: HD MWF
- Vital Signs / Lab Results
Temp Pulse Resp BP Pulse Ox
99.1 F 86 18 115/50 99
04/04/24 07:38 04/04/24 07:38 04/04/24 07:38 04/04/24 07:37 04/04/24 07:38
Lab Results - Hematology
04/02/24 04/03/24
08:27 06:30
WBC 7.4 5.6
Lab Results - Chemistry
04/02/24 04/03/24
08:27 06:30
BUN 39 H 26 H
Creatinine 5.7 H* 4.1 H*
Estimated Creat Clear
Microbiology Results
03/31/24 12:31 Blood Culture - Preliminary
Blood/Venous No Growth in 72 hours- Final report to follow
03/31/24 12:31 Blood Culture - Preliminary
Blood/Venous No Growth in 72 hours- Final report to follow
03/31/24 16:17 Acid Fast Bacilli Smear - Preliminary
Pericardial Fluid Acid Fast Bacilli Culture - Preliminary
03/31/24 16:17 Body Fluid Culture - Final
Pericardial Fluid No Growth After 72 Hours
Gram Stain - Final
--- NOTE | 2024-04-04 10:10 | W.PN.HOSP.TC ---
Today's Communication/Plan
-
thoracentesis today
pain control for fractured ribs
HD as per renal
d/c planning
Assessment / Plan
Assessment / Plan
A/P:
Pericardial effusion with impending cardiac tamponade--Pericardiocentesis with 385 cc exudative fluid on 03/31. Pericardial pressure went from 21 down to 7 mmHg postprocedure.
Pericardial drain cultures pending but no growth so far.
Pericardial drain removed on 04/02.
Follow-up echocardiogram on 04/02 with normal left ventricular size and systolic function and minimal pericardial effusion.
Pain control
Consider colchicine--will defer to renal?....cards signed off....
PT OT eval
Acute hypoxic respiratory failure suspect secondary to right pleural effusion--for IR thoracentesis Friday04/04/24--volume status managed by HD
Recent cardiac arrest and left AMA that admission
Right rib fractures
CT scan and follow-up chest x-ray with at least moderate right pleural effusion.
Febrile.
Pulse ox drops down to 80s while on room air.
Check blood cultures
Consult interventional radiology for thoracentesis.
Start empiric antibiotics covering nosocomial pathogens: Vancomycin/Zosyn adjusted to dialysis schedule.
History of PE
CT scan with no evidence of pulmonary embolism
Lower extremity ultrasound negative for DVT.
End-stage renal disease on hemodialysis:
Received hemodialysis today
Continue dialysis per nephrology
Paroxysmal atrial fibrillation:
Remains in normal sinus rhythm
No anticoagulation given recent pericardial effusion and noncompliance prior to this
Splenic infarct:
Might need hypercoagulable state workup down the road
For now no need for anticoagulation for same reason as above with A-fib, and monitor symptoms
Diabetes mellitus type 1/DKA, resolved:
Insulin pump on hold but once he has his supplies we can restart.
Transition to subcutaneous insulin with dose being adjusted.
Continue insulin sliding scale
Hypotension: Resolved
Okay to discontinue midodrine
Essential Hypertension:
Resume carvedilol at a lower dose 12.5 mg twice a day with holding parameters (he is on 25 mg twice a day)
Resume amlodipine given elevated BP
Monitor blood pressure and adjust medications accordingly
Alcohol use disorder/polysubstance abuse in the past:
Monitor for alcohol withdrawal and continue with protocol.
Caution with narcotics and use only if needed and short-term and while supervised.
DVT prophylaxis-heparin sq
CODE STATUS: Full code
Anticipated Discharge: > 48 hours
Subjective/Interval History
-
Date of Service: April 04, 2024
pt going to IR for thoracentesis
Objective Data
-
Vital Signs:
max temp for 24 hours
04/03/24
11:27
Temp 100.4 F H
Vital Signs
Temp Pulse Resp BP Pulse Ox
98.5 F 82 18 146/87 100
04/04/24 09:35 04/04/24 09:35 04/04/24 09:35 04/04/24 09:35 04/04/24 09:35
I&O
04/03/24 04/04/24 04/05/24
06:59 06:59 06:59
Intake Total 720 / 720 1130 / 1130
Output Total 0 / 0
Balance 720 / 720 1130 / 1130
Review of Systems
-
All other systems: Reviewed and negative
Cardiac: Reports Chest Pain
Physical Exam
-
General: Well Developed, Well Nourished and No Apparent Distress
HEENT: Normocephalic, Atraumatic and Oxygen
Respiratory: Decreased Breath Sounds (right lung field)
Cardiac: Regular Rhythm and S1/S2; Negative Murmur
GI: Soft, Nontender, Nondistended and Normal Bowel Sounds
Musculoskeletal: No Clubbing, No Cyanosis and No Edema
Neuro: Awake and Alert
[2024-04-04] MEDS: NOVOLOG FLEXPEN-LOW RESISTANCE SC ×2 (11:40→17:11)
[2024-04-04 11:41] LABS: Body Fluid pH 7.44
[2024-04-04 11:42] LABS: Glucose - Point of Care 118 mg/dl (70-99)
[2024-04-04 11:53] LABS: Body Fluid Glucose 181 mg/dl; Body Fluid LDH 140 U/L; Body Fluid Protein 2.9 g/dl
[2024-04-04 12:10] LABS: Body Fluid Mononuclear 96.3 %; Body Fluid Polymorphonuclear 3.7 %; Body Fluid WBC 162 /CUMM
[2024-04-04 12:19] LABS: Body Fluid Second Tech CS
--- NOTE | 2024-04-04 12:26 | W.PN.NEPH.PH ---
Today's Communication / Plan
-
- HD tomorrow
Assessment/Plan
-
Impression:
Status post PEA/Asystole 03/13/24
PAF : briefly after code on 03/13/24
Metabolic acidosis
Chronic noncompliance with dialysis
ESRD MWF ([facility]),
left UE AVF
DKA hx/metabolic acidosis
Hyperkalemia
Hyponatremia
Chronic Abdominal Pain / Gastroparesis
Pulmonary hypertension
Polysubstance abuse
Anxiety
Anemia
Right pleural effusion--s/p R throa for pleural effusion with 1.8L transudate 02/17/24
Plan:
pericardial drain removed
s/p thora today for R pleural effusion
midodrine 5mg TID
HD tomorrow
-
-
Date of Service: April 04, 2024
CC / HPI / ROS
-
Chief Complaint:
ESRD
History of Present Illness:
s/p paricardial drain 03/31-04/02.
thora today for pericardial effusion
BP low
HD tomorrow
Hgb stable
Review of Systems:
no CP/SOB
Labs
-
Labs:
WBC 5.6 10^3/uL (4.8-10.8) 04/03/24 06:30
RBC 2.80 10^6/uL (4.70-6.10) L 04/03/24 06:30
Hgb 8.6 g/dL (13.0-18.0) L 04/03/24 06:30
Hct 26.7 % (39.0-52.0) L 04/03/24 06:30
Plt Count 331 10^3/uL (130-400) 04/03/24 06:30
Sodium 134 mmol/L (135-145) L 04/03/24 06:30
Potassium 4.2 mmol/L (3.5-5.1) 04/03/24 06:30
Chloride 99 mmol/L (98-107) 04/03/24 06:30
Carbon Dioxide 24 mmol/L (22-30) 04/03/24 06:30
BUN 26 mg/dl (9-20) H 04/03/24 06:30
Creatinine 4.1 mg/dL (0.7-1.3) H* 04/03/24 06:30
eGFR 18.75 04/03/24 06:30
Glucose 100 mg/dl (70-99) H 04/03/24 06:30
Calcium 9.0 mg/dl (8.4-10.2) 04/03/24 06:30
Albumin 3.7 g/dl (3.5-5.0) 03/31/24 00:09
Physical Exam
-
Vital Signs:
Vital Signs
Temp Pulse Resp BP Pulse Ox
98.4 F 96 18 164/93 100
04/04/24 11:03 04/04/24 11:03 04/04/24 11:03 04/04/24 11:03 04/04/24 11:03
Cardiovascular:: Regular rate and rhythm
Respiratory:: Bilateral: Coarse
Lung Excursion:: Normal
Abdomen:: Nontender and Soft
Bowel Sounds:: Normal
Extremity Edema:: +1: Bilateral:
Randhawa Catheter: No
[2024-04-04] MEDS: SAFETUSSIN DM (SUGAR/ALCOHOL FREE) 200 MG PO (13:42)
--- NOTE | 2024-04-04 15:59 | CM ---
SW spoke with José Miguel at [facility].
José Miguel offered Outpatient resources. Pt is not fully interested in services but was accepting of resources.
[2024-04-04 17:06] LABS: Glucose - Point of Care 95 mg/dl (70-99)
[2024-04-04] MEDS: NOVOLOG FLEXPEN SC (17:32)
[2024-04-04] MEDS: SENOKOT 17.1999999999999993 MG PO (19:52)
[2024-04-04 21:24] LABS: Glucose - Point of Care 122 mg/dl (70-99)
[2024-04-04] MEDS: TRILEPTAL 150 MG PO (22:24)
[2024-04-05 03:49] VITALS: BP 166/91
[2024-04-05] MEDS: BENADRYL 25 MG IV ×5 (03:54→21:05)
[2024-04-05] MEDS: DILAUDID 0.25 MG IV ×5 (03:55→21:06)
[2024-04-05 05:14] VITALS: BMI 24.2
[2024-04-05] MEDS: COMPAZINE 10 MG IV (05:55)
[2024-04-05 07:40] VITALS: BP 218/108
--- NOTE | 2024-04-05 07:56 | PN.DE.MGMTRT ---
Insulin Management
- -
04/05/2024: Diabetes Management F/U:
34 year old male p/w c/o chest pain, noted for severe DKA, GAP 28. Pt is well known to me from recurrent hospital admissions that have all resulted in leaving AMA. Last hospital admission: 03/13/24 - 03/26/24 due to hypotension, bradycardia and PEA
arrest--> left AMA.
PMH: ETOH use disorder, recurrent DKA, ESRD on HD (MWF), Chronic Abdominal Pain, Gastroparesis, Pulmonary hypertension, Polysubstance abuse
Anxiety, Anemia and T1DM for 18 years. He was using a Medtronic 770 pump with NovoLog insulin and Guardian sensor. States he has not used his insulin pump since leaving hospital.
Patient awake, alert, oriented, resting in bed, able to discuss diabetes mgt. States he still doesn't have any of his pump supplies or insulin.
Pt's insulin requirement while using pump was 24 hour basal insulin 8.7 units and carb ratio 1:10 with an A1C of 9.7%
Lantus dose was reduced to 5 units on 04/03 due to recurrent hypoglycemia, last hypo event was on 04/03 @19:08
Will make no changes to current regimen: cont Lantus 5 units in AM and NovoLog 5 units AC.
Discussed with nurse and instructed to hold standing AC dose if pt not eating and use corrective insulin if needed.
Pt dose not have his insulin pump supplies with him at this moment, instructed pt to contact family and have insulin and pump supplies brought in.
Diabetes History
- -
Type of Diabetes: 1
Pre-Admission Diabetes Regimen
Insulin Pump Settings
IP Diabetes Regimen
04/04/24 04/04/24 04/04/24
11:40 17:05 21:23
POC Glucose 118 H 95 122 H
Meal type: Lunch
Meal type: Breakfast
Amount consumed: 20%
Amount consumed: 100%
Patient Education
[2024-04-05] MEDS: VITAMIN B1 100 MG PO ×2 (08:25→20:21)
[2024-04-05] MEDS: FOLVITE 1 MG PO (08:25)
[2024-04-05] MEDS: NORVASC 10 MG PO (08:25)
[2024-04-05] MEDS: SENOKOT PO ×2 (08:25→20:21)
[2024-04-05 08:26] LABS: Glucose - Point of Care 169 mg/dl (70-99)
[2024-04-05] MEDS: LANTUS 0.0500000000000000028 UNITS SC (08:26)
[2024-04-05] MEDS: HEPARIN 5000 UNITS SC ×2 (08:27→23:13)
[2024-04-05] MEDS: NOVOLOG FLEXPEN-LOW RESISTANCE SC ×2 (08:27→12:08)
[2024-04-05] MEDS: NOVOLOG FLEXPEN SC ×2 (08:27→12:54)
[2024-04-05] MEDS: LIDOCAINE 4% PATCH 1 PATCH TOPICAL (08:27)
[2024-04-05 08:28] LABS: Hematocrit 27.2 % (39.0-52.0); Hemoglobin 8.9 g/dL (13.0-18.0); Mean Corp Hgb Conc. 32.7 g/dL (33.0-37.0); Mean Corpuscular Hgb 30.7 pg (27.0-31.0); Mean Corpuscular Volume 93.8 fL (80.0-94.0); Mean Platelet Volume 9.7 fL (7.4-10.4); Platelet Count 355 10^3/uL (130-400); Red Cell Dist. Width 17.4 % (11.5-14.5); White Blood Cell Count 4.2 10^3/uL (4.8-10.8)
[2024-04-05] MEDS: COREG 12.5 MG PO ×2 (08:28→20:21)
--- NOTE | 2024-04-05 08:36 | PTCARENOTE ---
Addendum entered by Mikayla Cuevas RN 04/05/24 18:05:
pt had 3.5 kilos taken off during HD. this afternoon pt spiked a 101.3 temp orally. made aware. tylenol given. temp checked and pt afebrile at this time
Original Note:
pt aaox3 and currently receiving HD. pt due for 0800 zosyn. zosyn given to HD nurse Jacqueline to give later on during HD session. pt verbalized 8/10 chest pain. pt given prn dilaudid and prn benadryl for itching. See MAR for proper documentation
[2024-04-05 08:45] LABS: Vancomycin Random 26.9 ug/ml
[2024-04-05 08:48] LABS: Blood Urea Nitrogen 43 mg/dl (9-20); Calcium 8.7 mg/dl (8.4-10.2); Carbon Dioxide 22 mmol/L (22-30); Chloride 91 mmol/L (98-107); Estimated Creatinine Clearance 15 ml/min; Glucose 157 mg/dl (70-99); Potassium 5.2 mmol/L (3.5-5.1); Sodium 127 mmol/L (135-145); eGFR 10.78
[2024-04-05] MEDS: RETACRIT 8000 UNITS IV (09:30)
--- NOTE | 2024-04-05 10:52 | PHA.VAN.FU ---
Vancomycin Assessment / Plan
- Assessment
Hemodialysis Schedule: MWF
In the past 24 hrs, patient has been: Afebrile
Concomitant Antimicrobials: piperacillin/tazobactam
- Assessment - Therapeutic Drug Monitoring
Random Level: pre-HD = 26.9 - drawn ~40H after previous dose of 1500mg
- Dosing Plan
Dosing by Level: Hold off on dosing today
- Monitoring Plan
No level(s) ordered at this time: consider pre-HD level for Wed
- Follow Up
Pharmacy will continue to follow.
Vancomycin Follow UP
- -
Patient Age: 34
Patient Sex: Male
Vancomycin Day #: 3
Indication: Pulmonary/Respiratory
Requesting Provider: Dr Camacho
Pertinent Antimicrobial Allergies:
no pertinent antibiotic allergies
Height / Weight:
Height 5 ft 7 in
Actual Weight 69.967 kg
Pertinent Past Medical History: HD MWF
- Vital Signs / Lab Results
Temp Pulse Resp BP Pulse Ox
98.2 F 85 16 191/100 97
04/05/24 07:40 04/05/24 07:40 04/05/24 07:40 04/05/24 08:28 04/05/24 07:40
Lab Results - Hematology
04/03/24 04/05/24
06:30 07:50
WBC 5.6 4.2 L
Lab Results - Chemistry
04/03/24 04/05/24
06:30 07:50
BUN 26 H 43 H
Creatinine 4.1 H* 6.5 H*
Estimated Creat Clear 24 15
Microbiology Results
03/31/24 12:31 Blood Culture - Preliminary
Blood/Venous No Growth in 4 days- Final report to follow
03/31/24 12:31 Blood Culture - Preliminary
Blood/Venous No Growth in 4 days- Final report to follow
03/31/24 16:17 Acid Fast Bacilli Smear - Preliminary
Pericardial Fluid Acid Fast Bacilli Culture - Preliminary
03/31/24 16:17 Body Fluid Culture - Final
Pericardial Fluid No Growth After 72 Hours
Gram Stain - Final
Therapeutic Drug Monitoring
Random Vancomycin 26.9 ug/ml 04/05/24 07:50
[2024-04-05] MEDS: ZOSYN 50 IV (11:13)
[2024-04-05 11:18] VITALS: BP 140/89
--- NOTE | 2024-04-05 11:22 | W.PN.NEPH.HD ---
Assessment
-
pt seen during HD
vitals stable,
significant edema, UF as much as he can tolerate
BP are high too
may benefit from extra UF if he allows
strict renal diet and FR for hyponatremia
AVF functions well
Progress Note - Hemodialysis
-
Date of Service: April 05, 2024
Duration: 30 minutes and 3 hours
Potassium Bath: 2
Calcium Bath: 2.5
Opti-Dialyzer: 160
Ultrafiltration: Other (3.5kg)
Blood Flow: 400
Dialysate Flow: 600
Heparin: no
EPO: 8000
[2024-04-05 11:40] LABS: Glucose - Point of Care 136 mg/dl (70-99)
[2024-04-05 15:40] VITALS: BP 148/68
[2024-04-05] MEDS: TYLENOL 650 MG PO (15:52)
[2024-04-05] MEDS: HEPARIN SC (16:51)
[2024-04-05 17:15] LABS: Glucose - Point of Care 217 mg/dl (70-99)
--- NOTE | 2024-04-05 18:01 | W.PN.HOSP.TC ---
Today's Communication/Plan
-
HD today.
Monitor blood pressure.
Monitor for recurrent fever while off antibiotics
Physical therapy assessment
Assessment / Plan
Assessment / Plan
A/P:
Pericardial effusion with impending cardiac tamponade--Pericardiocentesis with 385 cc exudative fluid on 03/31. Pericardial pressure went from 21 down to 7 mmHg postprocedure.
Pericardial drain cultures pending but no growth so far.
Pericardial drain removed on 04/02.
Follow-up echocardiogram on 04/02 with normal left ventricular size and systolic function and minimal pericardial effusion.
Pain control
Colchicine use in HD patient is limited. Discussed with renal
Acute hypoxic respiratory failure suspect secondary to right pleural effusion
Right rib fractures
CT scan and follow-up chest x-ray with at least moderate right pleural effusion.
Status post right thoracentesis 04/04 1500 cc, exudate
Spiking fever
Cultures negative to date
Pleural fluid with no evidence of infection
Observe off antibiotics closely monitor temperature curve.
History of PE
CT scan with no evidence of pulmonary embolism
Lower extremity ultrasound negative for DVT.
End-stage renal disease on hemodialysis:
Received hemodialysis today
Continue dialysis per nephrology
Paroxysmal atrial fibrillation:
Remains in normal sinus rhythm
No anticoagulation given recent pericardial effusion and noncompliance prior to this
Splenic infarct:
Might need hypercoagulable state workup down the road
For now no need for anticoagulation for same reason as above with A-fib, and monitor symptoms
Diabetes mellitus type 1/DKA, resolved:
Insulin pump on hold but once he has his supplies we can restart.
Transition to subcutaneous insulin with dose being adjusted.
Continue insulin sliding scale
Hypotension: Resolved
Okay to discontinue midodrine
Essential Hypertension:
Resume carvedilol at a lower dose 12.5 mg twice a day with holding parameters (he is on 25 mg twice a day)
Resume amlodipine given elevated BP
Monitor blood pressure and adjust medications accordingly
Alcohol use disorder/polysubstance abuse in the past:
Monitor for alcohol withdrawal and continue with protocol.
Caution with narcotics and use only if needed and short-term and while supervised.
DVT prophylaxis-heparin sq
CODE STATUS: Full code
Anticipated Discharge: 24 - 48 hours
Subjective/Interval History
-
Date of Service: April 05, 2024
Objective Data
-
Labs:
Laboratory Results
04/05/24
07:50
WBC 4.2 L
Hgb 8.9 L
Hct 27.2 L
Plt Count 355
Sodium 127 L
Potassium 5.2 H
Chloride 91 L
Carbon Dioxide 22
BUN 43 H
Creatinine 6.5 H*
Glucose 157 H
Calcium 8.7
Vital Signs:
Vital Signs
Temp Pulse Resp BP Pulse Ox
99.1 F 98 18 148/68 100
04/05/24 17:30 04/05/24 15:40 04/05/24 15:40 04/05/24 15:40 04/05/24 15:40
I&O
04/04/24 04/05/24 04/06/24
06:59 06:59 06:59
Intake Total 1130 / 1130 1650 / 1650 660 / 660
Balance 1130 / 1130 1650 / 1650 660 / 660
Physical Exam
-
General: Well Developed and No Apparent Distress
HEENT: Normocephalic, Atraumatic and Moist Mucous Membranes
Respiratory: Clear to Auscultation
Cardiac: Regular Rhythm and S1/S2; Negative Murmur, Rub or Gallop
GI: Soft, Nontender, Nondistended and Normal Bowel Sounds; Negative Organomegaly
Rectal: Deferred by Provider
Musculoskeletal: No Clubbing, No Cyanosis and No Edema
Skin: Negative Rash
Neuro: Nonfocal/Grossly Intact
[2024-04-05] MEDS: NOVOLOG FLEXPEN 5 UNITS SC (18:02)
[2024-04-05] MEDS: NOVOLOG FLEXPEN-LOW RESISTANCE 2 UNITS SC (18:02)
[2024-04-05 19:50] VITALS: BP 152/85
[2024-04-05] MEDS: TRILEPTAL PO (21:08)
[2024-04-05 21:24] LABS: Glucose - Point of Care 156 mg/dl (70-99)
[2024-04-05 23:32] VITALS: BP 114/74
[2024-04-06] MEDS: DILAUDID 0.25 MG IV ×6 (01:06→22:44)
[2024-04-06] MEDS: BENADRYL 25 MG IV ×6 (01:06→22:45)
[2024-04-06] MEDS: SAFETUSSIN DM (SUGAR/ALCOHOL FREE) 200 MG PO (01:56)
[2024-04-06 03:29] VITALS: BP 155/83; BMI 23.4
[2024-04-06 07:10] VITALS: BP 168/99
--- NOTE | 2024-04-06 07:14 | PN.DE.MGMTRT ---
Insulin Management
- -
04/06/2024: Diabetes Management Follow up:
Patient admitted 03/30 with chest pain, noted for severe DKA, GAP 28. Pt is well known to me from recurrent hospital admissions that have all resulted in leaving AMA. Last hospital admission: 03/13/24 - 03/26/24 due to hypotension, bradycardia and PEA
arrest--> left AMA.
Past medical history ETOH use disorder, recurrent DKA, ESRD on HD (MWF), Chronic Abdominal Pain, Gastroparesis, Pulmonary hypertension, Polysubstance abuse
Anxiety, Anemia and T1DM for 18 years. He was using a Medtronic 770 pump with NovoLog insulin and Guardian sensor. States he has not used his insulin pump since leaving hospital.
Patient awake, alert, oriented, resting in bed, able to discuss diabetes mgt. States he still doesn't have any of his pump supplies or insulin.
Pt's insulin requirement while using pump was 24 hour basal insulin 8.7 units and carb ratio 1:10 with an A1C of 9.7%
Lantus dose was reduced to 5 units on 04/03 due to recurrent hypoglycemia, last hypo event was on 04/03 @19:08. Currently receiving Lantus 5 units in AM and NovoLog 5 units AC with low corrective insulin.
Patient refused breakfast and refused corrective insulin this AM.
Discussed with nurse and instructed to hold standing AC dose if pt not eating and use corrective insulin if needed.
Pt dose not have his insulin pump supplies and does not want to restart his pump until discharged.
Diabetes History
- -
Type of Diabetes: 1
Pre-Admission Diabetes Regimen
04/05/24
07:50
Creatinine 6.5 H*
Insulin Pump Settings
IP Diabetes Regimen
04/05/24 04/05/24 04/05/24
07:50 08:24 11:39
Glucose 157 H
POC Glucose 169 H 136 H
04/05/24 04/05/24
17:14 21:23
Glucose
POC Glucose 217 H 156 H
Meal type: Lunch
Meal type: Breakfast
Amount consumed: 100%
Amount consumed: 95%
Patient Education
[2024-04-06 08:09] LABS: Glucose - Point of Care 217 mg/dl (70-99)
[2024-04-06] MEDS: VITAMIN B1 100 MG PO ×2 (08:17→20:02)
[2024-04-06] MEDS: COREG 12.5 MG PO ×2 (08:17→20:02)
[2024-04-06] MEDS: LIDOCAINE 4% PATCH 1 PATCH TOPICAL (08:17)
[2024-04-06] MEDS: FOLVITE 1 MG PO (08:17)
[2024-04-06] MEDS: HEPARIN SC ×3 (08:18→15:46)
[2024-04-06] MEDS: NORVASC 10 MG PO (08:18)
[2024-04-06] MEDS: LANTUS 0.0500000000000000028 UNITS SC (08:21)
[2024-04-06] MEDS: COMPAZINE 10 MG IV (08:21)
[2024-04-06] MEDS: TYLENOL 650 MG PO (08:21)
[2024-04-06] MEDS: NOVOLOG FLEXPEN-LOW RESISTANCE SC ×2 (08:22→16:58)
[2024-04-06] MEDS: NOVOLOG FLEXPEN SC (08:22)
[2024-04-06] MEDS: SENOKOT PO ×2 (08:22→20:03)
[2024-04-06 11:15] LABS: Glucose - Point of Care 215 mg/dl (70-99)
[2024-04-06] MEDS: NOVOLOG FLEXPEN-LOW RESISTANCE 2 UNITS SC (11:21)
[2024-04-06] MEDS: NOVOLOG FLEXPEN 5 UNITS SC ×2 (11:21→16:59)
[2024-04-06 11:33] VITALS: BP 143/89
--- NOTE | 2024-04-06 14:20 | W.PN.NEPH.HD ---
Assessment
-
pt seen during HD
attempting isolated UF today of 3kg
he is still 7-8kg over EDW
adjust coreg as needed
plan HD again tomorrow
AVF functions well
Progress Note - Hemodialysis
-
Date of Service: April 06, 2024
Duration: 2 hours
Opti-Dialyzer: 160
Ultrafiltration: Other (3kg)
Blood Flow: 350
Heparin: no
EPO: no
--- NOTE | 2024-04-06 14:49 | PN.CDI ---
CDI
- -
CDI:
Physician Documentation Request
Admit Date: 03/31/24 01:45
Dear Doctor Janice,
Please review the following and provide your response in the progress notes.
Clinical Indicators:
Documentation in the record on 6/3 PN includes the diagnosis of acute hypoxic respiratory failure.
- 6/3 PN 'Acute hypoxic respiratory failure suspect secondary to right pleural effusion'
- Documented VS 1-4L O2, pulse ox >90%
Recognized standard criteria for respiratory failure includes:
(Source: [employer] [facility] Sep 2013)
ABGs (1 or more)
�PO2 <60 or RA SpO2 <91%
�PcO2 >50 and pH <7.35
�pO2 decrease or pcO2 increase by 10 mmHg from baseline if known Symptoms:
�Tachypnea, SOB, dyspnea
�Pallor or cyanosis
�Anxiety or restlessness
�Use of accessory muscles
�Retractions (grunting in newborns)
�Unable to speak in complete sentences
Supplemental O2 requirement of 40% (5LPM) or more Intubation is not required
Based on the above information and the recognized standard for respiratory failure could you please verify this diagnoses is still accurate and reflective of the patient�s condition to ensure quality of the medical record.
Please clarify in the Progress Notes:
Acute hypoxic respiratory failure is/was present and is a clinical diagnosis based on (please include this additional support in the medical record)
After study acute hypoxic respiratory failure has been ruled out
Other (please specify)
Use of terms such as suspected, likely, concern for, or probable (associated with a specific diagnosis that is being evaluated, monitored, or treated as if it exists) are acceptable and can be coded in the inpatient setting, when documented at the
time of discharge.
Thank you,
Brayan Birmingham RN
CDI Specialist
Please use your independent medical judgment in providing your response.
[2024-04-06 15:31] VITALS: BP 114/61
--- NOTE | 2024-04-06 15:53 | CM ---
CM reviewed pt with Dr Camacho- ready for dc
Bedside meeting with pt
No dc needs noted
IMM verbally reviewed- copy provided
Clinicals and flowsheets faxed to [facility] [phone] (f)
Discharge Disposition- home no needs, [facility] out[facility] HD- [facility]
--- NOTE | 2024-04-06 16:32 | W.PN.HOSP.TC ---
Today's Communication/Plan
-
Hemodialysis
Observe for recurrent fever.
Continue insulin adjustment with plan to transition back to pump upon discharge
Monitor BP trend
Assessment / Plan
Assessment / Plan
A/P:
Pericardial effusion with impending cardiac tamponade--Pericardiocentesis with 385 cc exudative fluid on 03/31. Pericardial pressure went from 21 down to 7 mmHg postprocedure.
Pericardial drain cultures pending but no growth so far.
Pericardial drain removed on 04/02.
Follow-up echocardiogram on 04/02 with normal left ventricular size and systolic function and minimal pericardial effusion.
Pain control
Colchicine use in HD patient is limited. Discussed with renal
Acute hypoxic respiratory failure suspect secondary to right pleural effusion
Right rib fractures
CT scan and follow-up chest x-ray with at least moderate right pleural effusion.
Status post right thoracentesis 04/04 1500 cc, exudate
Spiking fever
Cultures negative to date
Pleural fluid with no evidence of infection
Observe off antibiotics closely monitor temperature curve.
History of PE
CT scan with no evidence of pulmonary embolism
Lower extremity ultrasound negative for DVT.
End-stage renal disease on hemodialysis:
Received hemodialysis today
Continue dialysis per nephrology
Paroxysmal atrial fibrillation:
Remains in normal sinus rhythm
No anticoagulation given recent pericardial effusion and noncompliance prior to this
Splenic infarct:
Might need hypercoagulable state workup down the road
For now no need for anticoagulation for same reason as above with A-fib, and monitor symptoms
Diabetes mellitus type 1/DKA, resolved:
Insulin pump on hold but once he has his supplies we can restart.
Transition to subcutaneous insulin with dose being adjusted.
Continue insulin sliding scale
Hypotension: Resolved
Okay to discontinue midodrine
Essential Hypertension:
Resume carvedilol at a lower dose 12.5 mg twice a day with holding parameters (he is on 25 mg twice a day)
Resume amlodipine given elevated BP
Monitor blood pressure and adjust medications accordingly
Alcohol use disorder/polysubstance abuse in the past:
Monitor for alcohol withdrawal and continue with protocol.
Caution with narcotics and use only if needed and short-term and while supervised.
DVT prophylaxis-heparin sq
CODE STATUS: Full code
Anticipated Discharge: 24 - 48 hours
Subjective/Interval History
-
Date of Service: April 06, 2024
Objective Data
-
Vital Signs:
Vital Signs
Temp Pulse Resp BP Pulse Ox
98.7 F 80 18 114/61 93
04/06/24 15:31 04/06/24 15:31 04/06/24 15:31 04/06/24 15:31 04/06/24 15:31
I&O
04/05/24 04/06/24 04/07/24
06:59 06:59 06:59
Intake Total 1650 / 1650 1140 / 1140
Balance 1650 / 1650 1140 / 1140
Physical Exam
-
General: Well Developed and No Apparent Distress
HEENT: Normocephalic, Atraumatic and Moist Mucous Membranes
Respiratory: Clear to Auscultation
Cardiac: Regular Rhythm and S1/S2; Negative Murmur, Rub or Gallop
GI: Soft, Nontender, Nondistended and Normal Bowel Sounds; Negative Organomegaly
Rectal: Deferred by Provider
Musculoskeletal: No Clubbing, No Cyanosis and No Edema
Skin: Negative Rash
Neuro: Nonfocal/Grossly Intact
[2024-04-06 16:55] LABS: Glucose - Point of Care 128 mg/dl (70-99)
[2024-04-06 19:35] VITALS: BP 132/80
[2024-04-06 21:38] LABS: Glucose - Point of Care 129 mg/dl (70-99)
[2024-04-06] MEDS: TRILEPTAL PO (22:44)
[2024-04-06 22:57] VITALS: BP 130/79
[2024-04-06] MEDS: HEPARIN 5000 UNITS SC (23:49)
[2024-04-07] MEDS: BENADRYL 25 MG IV ×4 (02:45→15:22)
[2024-04-07] MEDS: DILAUDID 0.25 MG IV ×4 (02:45→15:22)
[2024-04-07 03:30] VITALS: BP 156/92
[2024-04-07 04:30] VITALS: BMI 22.7
[2024-04-07] MEDS: SAFETUSSIN DM (SUGAR/ALCOHOL FREE) 200 MG PO (06:41)
--- NOTE | 2024-04-07 07:24 | PN.DE.MGMTRT ---
Insulin Management
- -
04/07/2024: Diabetes Management Follow up:
Patient admitted 03/30 with chest pain, noted for severe DKA, GAP 28. Pt is well known to me from recurrent hospital admissions that have all resulted in leaving AMA. Last hospital admission: 03/13/24 - 03/26/24 due to hypotension, bradycardia and PEA
arrest--> left AMA.
Past medical history ETOH use disorder, recurrent DKA, ESRD on HD (MWF), Chronic Abdominal Pain, Gastroparesis, Pulmonary hypertension, Polysubstance abuse
Anxiety, Anemia and T1DM for 18 years. He was using a Medtronic 770 pump with NovoLog insulin and Guardian sensor. States he has not used his insulin pump since leaving hospital.
Patient awake, alert, oriented, resting in bed, able to discuss diabetes mgt. States he still doesn't have any of his pump supplies or insulin, does not want to restart his pump until discharged.
Pt's insulin requirement while using pump was 24 hour basal insulin 8.7 units and carb ratio 1:10 with an A1C of 9.7%
Lantus dose was reduced to 5 units on 04/03 due to recurrent hypoglycemia, last hypo event was on 04/03 @19:08. Currently receiving Lantus 5 units in AM and NovoLog 5 units AC with low corrective insulin.
Patient refused breakfast and refused corrective insulin 6/ AM, glucose 217. Pre lunch glucose 215. Utilized these results to assure patient he would not have hypoglycemia. Glucose improved pre dinner 128, 129 fasting.
Discussed with nurse and instructed to hold standing AC dose if pt not eating and use corrective insulin if needed.
Patient states he will start his pump when he goes home.
Diabetes History
- -
Type of Diabetes: 1
Pre-Admission Diabetes Regimen
Insulin Pump Settings
IP Diabetes Regimen
04/06/24 04/06/24 04/06/24
08:07 11:15 16:54
POC Glucose 217 H 215 H 128 H
04/06/24
21:36
POC Glucose 129 H
Meal type: Lunch
Meal type: Breakfast
Amount consumed: 100%
Amount consumed: 75%
Patient Education
[2024-04-07 07:29] LABS: Glucose - Point of Care 158 mg/dl (70-99)
[2024-04-07] MEDS: LIDOCAINE 4% PATCH 1 PATCH TOPICAL (07:43)
[2024-04-07] MEDS: VITAMIN B1 100 MG PO (07:44)
[2024-04-07] MEDS: HEPARIN SC ×2 (07:44→15:24)
[2024-04-07] MEDS: SENOKOT PO (07:44)
[2024-04-07] MEDS: LANTUS 0.0500000000000000028 UNITS SC (07:44)
[2024-04-07] MEDS: NOVOLOG FLEXPEN-LOW RESISTANCE 1 UNITS SC (07:45)
[2024-04-07] MEDS: NOVOLOG FLEXPEN 5 UNITS SC ×2 (07:45→11:31)
[2024-04-07] MEDS: FOLVITE 1 MG PO (07:46)
[2024-04-07] MEDS: COREG 12.5 MG PO (07:50)
[2024-04-07] MEDS: NORVASC 10 MG PO (07:50)
[2024-04-07 08:35] VITALS: BP 134/75
[2024-04-07 11:20] VITALS: BP 151/97
[2024-04-07 11:25] LABS: Glucose - Point of Care 142 mg/dl (70-99)
[2024-04-07] MEDS: NOVOLOG FLEXPEN-LOW RESISTANCE SC ×2 (11:29→16:27)
[2024-04-07 13:10] LABS: Hematocrit 27.8 % (39.0-52.0); Hemoglobin 9.1 g/dL (13.0-18.0)
[2024-04-07] MEDS: RETACRIT 10000 UNITS IV (13:18)
[2024-04-07 13:32] LABS: Blood Urea Nitrogen 41 mg/dl (9-20); Calcium 8.6 mg/dl (8.4-10.2); Carbon Dioxide 25 mmol/L (22-30); Chloride 93 mmol/L (98-107); Estimated Creatinine Clearance 16 ml/min; Glucose 100 mg/dl (70-99); Potassium 4.2 mmol/L (3.5-5.1); Sodium 128 mmol/L (135-145); eGFR 11.87
--- NOTE | 2024-04-07 13:33 | W.PN.NEPH.HD ---
Assessment
-
Seen on HD. no complaints. VSS, access ok, excoriations near AVF noted by nurse that patient scratches despite education no to scratch
Progress Note - Hemodialysis
-
Date of Service: April 07, 2024
Duration: 45 minutes and 3 hours
Potassium Bath: 2
Calcium Bath: 2.5
Opti-Dialyzer: 160
Ultrafiltration: Other (3kg)
Blood Flow: 400
Dialysate Flow: 600
Heparin: 500x2
EPO: 39022 units
[2024-04-07 15:00] VITALS: BP 177/91
--- NOTE | 2024-04-07 15:35 | W.DS.TRANS ---
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
-
Discharge Instructions:
Discharge Diagnosis/Procedures Pericardial effusion
Diet Diabetic, Carb Controlled
Instructions:
Stand-Alone Forms:
Changes to Home Medications: Yes
Discharge Medications:
DC Medications w/original date entered in [facility]
amlodipine 10 mg tablet 10 mg PO DAILY Blood pressure 04/22/21
metoclopramide HCl 10 mg tablet (Reglan) 10 mg PO TIDPRN PRN nausea 04/07/23
oxcarbazepine 150 mg tablet 150 mg PO HS 07/24/23
trazodone 50 mg tablet 25 mg PO HSPRN PRN sleep 01/05/24
Patient Own Insulin Pump 0 units SC .VIA PUMP diabetes 02/13/24
carvedilol 12.5 mg tablet 12.5 mg PO BID #60 tabs 04/06/24
diphenhydramine HCl 25 mg capsule 25 mg PO Q4HPRN PRN itchiness #30 caps 04/06/24
Home Medication Changes
Coreg dose decreased
Diuretics stopped. Patient has been anuric on HD.
Pending Results: No
[2024-04-07 16:03] LABS: Glucose - Point of Care 56 mg/dl (70-99)
[2024-04-07] MEDS: DEXTROSE 50% SYRINGE 12.5 GRAMS IV (16:07)
--- NOTE | 2024-04-07 16:13 | PTCARENOTE ---
Pt. states he feels that blood sugar is low. AccuCheck is 56. Pt. refusing to drink orange juice due to nausea. Dextrose prn administered per order. MD made aware. Will recheck in 15 minutes.
--- NOTE | 2024-04-07 16:20 | CM ---
CM reviewed pt with Dr Camacho- ready for dc
Clinicals and flowsheets faxed to Kimmie [facility] [phone] (f)
Discharge Disposition- home no needs, [facility] outpt HD- [facility]
[2024-04-07 16:41] LABS: Glucose - Point of Care 133 mg/dl (70-99)
--- NOTE | 2024-04-07 16:43 | PTCARENOTE ---
Patients repeat AccuCheck is 133. made aware. states patient can still be discharged after dialysis.
--- NOTE | 2024-04-07 17:24 | VATNOTE ---
Midline d/c'd w/ no issues. 14cm retrieved from pt's R arm. Pressure dressing applied.
[2024-04-07] MEDS: NOVOLOG FLEXPEN SC (17:27)
== END 2024-04-07 17:48 | disposition home or self-care (01) | DRG 314 ==
LOC: 2 NORTH 01:45
PROVIDERS: Hospitalist; Internal Medicine; Internal Medicine Cardiovascular Disease; Nurse Practitioner; Nurse Practitioner Primary Care; Radiology Vascular & Interventional Radiology; Student in an Organized Health Care Education/Training Program; ADMITTING PHYSICIAN Internal Medicine; ATTENDING PHYSICIAN Internal Medicine; CONSULT PHYSICIAN Internal Medicine Cardiovascular Disease; CONSULT PHYSICIAN Internal Medicine Critical Care Medicine; EMERGENCY PHYSICIAN Emergency Medicine; FAMILY PHYSICIAN Internal Medicine; OTHER PHYSICIAN Specialist
PROC: 0W9D3ZZ Drainage of Pericardial Cavity, Percutaneous Approach (ICD-10-PCS; 2024-03-31)
PROC: 5A1D70Z Performance of Urinary Filtration, Intermittent, Less than 6 Hours Per Day (ICD-10-PCS; 2024-03-31)
PROC: 0W993ZZ Drainage of Right Pleural Cavity, Percutaneous Approach (ICD-10-PCS; 2024-04-04)
DX: I31.39 Other pericardial effusion (noninflammatory) (principal); E10.10 Type 1 diabetes mellitus with ketoacidosis without coma; J96.01 Acute respiratory failure with hypoxia; N18.6 End stage renal disease; I5A Non-ischemic myocardial injury (non-traumatic); E87.1 Hypo-osmolality and hyponatremia; I50.32 Chronic diastolic (congestive) heart failure; I13.2 Hypertensive heart and chronic kidney disease with heart failure and with stage 5 chronic kidney disease, or end stage renal disease; J91.8 Pleural effusion in other conditions classified elsewhere; I27.20 Pulmonary hypertension, unspecified; E10.22 Type 1 diabetes mellitus with diabetic chronic kidney disease; F10.10 Alcohol abuse, uncomplicated; F32.A Depression, unspecified; F41.9 Anxiety disorder, unspecified; E87.5 Hyperkalemia; F10.20 Alcohol dependence, uncomplicated; F17.210 Nicotine dependence, cigarettes, uncomplicated; E10.43 Type 1 diabetes mellitus with diabetic autonomic (poly)neuropathy; K31.84 Gastroparesis; D63.1 Anemia in chronic kidney disease; I48.0 Paroxysmal atrial fibrillation; D73.5 Infarction of spleen; G89.29 Other chronic pain; Z76.5 Malingerer [conscious simulation]; Z79.4 Long term (current) use of insulin; Z79.899 Other long term (current) drug therapy; Z91.148 Patient's other noncompliance with medication regimen for other reason; Z86.14 Personal history of Methicillin resistant Staphylococcus aureus infection; Z86.711 Personal history of pulmonary embolism; Z86.74 Personal history of sudden cardiac arrest; Z91.158 Patient's noncompliance with renal dialysis for other reason; Z91.198 Patient's noncompliance with other medical treatment and regimen for other reason; Z96.41 Presence of insulin pump (external) (internal); Z99.2 Dependence on renal dialysis
CPT/HCPCS: 88305; 93308; 32555; 33016; 71045; 71046; 71275; 80048; 80053; 80202; 82010; 82945; 82962; 83615; 83735; 83986; 84157; 84484; 85014; 85018; 85025; 85027; 85610; 87015; 87040; 87070; 87102; 87116; 87147; 87205; 87206; 88112; 89051; 93005; 93321; 93325; 93971; 97116; 97163; 97166; 99285; 99406; C1894; G0257; P9047; Q5106; Q9967

== ENCOUNTER 2024-04-09 09:58 | Emergency (ER) | payer OTHER, SELFPAY ==
[2024-04-09 09:59] VITALS: BP 147/98
[2024-04-09 10:11] VITALS: BP 166/99
--- NOTE | 2024-04-09 10:15 | ED.GENMED ---
History of Present Illness
General
Chief Complaint: Chest Pain
Source: patient and records
Time Seen by Provider: 04/09/24 10:05
Travel History
Have you had any contact with someone who has COVID-19?: No
Do you have any symptoms of coronavirus? Fever > 100 degrees, chills, cough, shortness of breath, sore throat, loss of taste or smell, muscle aches, or headache?: No
History of Present Illness
History of Present Illness:
34-year-old male with extensive past medical history including end-stage renal disease (hemodialysis Friday, Friday, Friday), recent admission here for pericardial effusion with acute hypoxic respiratory failure, large pleural effusion status
postthoracentesis, DKA with transient cardiac arrest, paroxysmal atrial fibrillation, pulmonary embolism presents back to the emergency department after being discharged on Friday for continued chest pain. Patient states that he was taking
Tylenol and ibuprofen with no relief. He still endorses a cough and some shortness of breath. Denies any fevers, chills, rigors. States received a full dialysis session Friday prior to his discharge but did not go to dialysis today. No new
concerns today. Denies any new trauma.
Past History
Past History
ED Past Medical History: Arrthythmia, CHF, HTN, IDDM, Renal failure (Dialysis M-W-F) and Other (ESRD, PE, Contipation, ESRD, TR, pulmonary hypertension, congestive heart failure, etc. chronic abdominal pain/gastroparesis)
ED Past Surgical History: Appendectomy and Other (Left AV fistula, biliary drain removed)
Patient has exhibited threatening behavior?: No
PSI?: No
Social History
Tobacco: Smoker
Alcohol: None
Drug: None
Personal: Single
Living: with family
Employment: Other
Family History
Family History: Other
Review of Systems
Review of Systems
All Other Systems: ROS reviewed and negative except as documented in HPI and ROS
Phy Exam
Physical Exam
Physical Exam:
GENERAL: Alert , unkempt, chronically ill-appearing, appears older than stated age
EYE: Clear conjunctiva
NECK: Supple
ENT: o/p clr, mmm.
CARDIAC: Regular rate and rhythm, systolic murmur.
LUNGS: Scattered wheeze throughout, slightly diminished at the right base, no acute respiratory distress
ABDOMEN: Soft, without focal tenderness, no r/g, no cvat
NEUROLOGICAL: Alert and oriented
SKIN: Warm and dry, skin intact.
MUSCULOSKELETAL: Trace nonpitting edema bilateral lower legs, well perfused. Palpable thrill to the left upper extremity fistula
PSYCH: Normal and appropriate interaction.
Scores
Heart Failure Risk
Heart Failure Risk Score: Not Applicable
Heart Score for Chest Pain Patients
STEMI patient?: No
History: Slightly or Non-Suspicious
ECG: Nonspecific Repolarization
Age: </= 45 years
Risk Factors: 1 or 2 Risk Factors
Troponin: </= Normal Limit
Heart Score for Chest Pain Patients: 2
Heart Score Risk: 2.5% MACE over next 6 weeks
Withdrawal Assessment of Alcohol
Withdrawal Assessment Completed?: Not applicable
Course
Orders/Labs/Results
Orders:
Orders
04/09/24 10:01
EKG [Electrocardiogram (*1)] Stat
Reason for Study: Chest Pain
EKG- Treatment ONCE
04/09/24 10:12
CR Chest - 2 Views Urgent
Comment:
Reason For Exam: recent pericardial effusion, pleural effusion
04/09/24 10:58
Oxycodone/Acetaminophen [Percocet 5/325] 1 tablet PO NOW STA
04/09/24 11:38
Comprehensive Metabolic Panel Urgent
Troponin I Urgent
04/09/24 11:44
Complete Blood Count/With Diff Urgent
04/09/24 13:05
Oxycodone/Acetaminophen [Percocet 5/325] 1 tablet PO NOW STA
Abnormal Lab Results
04/09/24 04/09/24
11:38 11:44
WBC 3.5 L 10^3/uL
(4.8-10.8)
RBC 3.22 L 10^6/uL
(4.70-6.10)
Hgb 9.6 L g/dL
(13.0-18.0)
Hct 29.3 L %
(39.0-52.0)
MCHC 32.8 L g/dL
(33.0-37.0)
RDW 18.3 H %
(11.5-14.5)
Absolute Lymphs (auto) 0.8 L 10^3/uL
(1.2-3.4)
Immature Gran % 0.6 H %
(0-0.5)
Monocytes % 11.5 H %
(1.7-9.3)
Eosinophils % 9.2 H %
(0-6)
Sodium 134 L mmol/L
(135-145)
Chloride 96 L mmol/L
(98-107)
BUN 31 H mg/dl
(9-20)
Creatinine 5.6 H* mg/dL
(0.7-1.3)
Glucose 211 H mg/dl
(70-99)
Albumin 3.4 L g/dl
(3.5-5.0)
04/09/24 11:44
04/09/24 11:38
Vital Signs
Initial and Last Documented VS:
Initial Vital Signs
Temp Pulse Resp BP Pulse Ox
98.6 F 88 18 147/98 95
04/09/24 09:59 04/09/24 09:59 04/09/24 09:59 04/09/24 09:59 04/09/24 09:59
Last Documented Vital Signs
Temp Pulse Resp BP Pulse Ox
98.6 F 91 21 150/97 93
04/09/24 09:59 04/09/24 13:00 04/09/24 13:00 04/09/24 11:00 04/09/24 12:15
Food Safety Officer consulted with Physician
Food Safety Officer consulted with physician?: Yes
Name of Physician Consulted: Jewel
MDM/Problems Addressed
Differential Diagnosis Includes:
Recurring pericardial effusion, pleural effusion, ACS, cardiac dysrhythmia, volume overload and needing dialysis
MDM/Problems Addressed:
34-year-old male well-known visitor to this emergency department presenting back to the emergency department after being discharged from inpatient on Friday. Patient with very complicated history and hospitalization requiring pericardiocentesis
and thoracentesis recently. Returns back today due to continued chest pain unresolved with Tylenol and Motrin. Patient advised against taking NSAIDs given his history of chronic kidney disease. Hemodynamically stable. He EKG done in triage does
show some inferolateral ischemia but this is unchanged from previous. Will check troponin and labs. Stat chest x-ray ordered. Reassessment following
Chronic conditions affecting care: DM, HTN and Kidney disease
Acute Exacerbation and/or Progression of Chronic Illness: HTN and Kidney disease
*Radiology
Radiology exam reviewed: preliminary read by ED provider (Improved right-sided pleural effusion)
*Pulse Oximetry
Patient hypoxic: no
*EKG
Interpreted by ED Provider?: Yes
Comparison EKG: no changes
Heart Rate: 93
Rate: normal
Rhythm: sinus
Interval: long QT
Ischemia: other (Inferolateral ST changes unchanged from previous)
*Structural Analysis Engineer Interpretation
Rate: normal
Rhythm: sinus
*Critical Care Note
Total Time (30-74mins, 75-104mins- exclusive of procedures): Not Applicable
Data Reviewed
Review of Other/Old Records Reveals: Labs, Records and Discharge Summary
Source: patient and records
Patient Management
Discussion with other providers: Firepot Operator And Tender
Escalation/DeEscalation of care consider admission/obs:
Patient's labs are rate around his baseline. Potassium within normal limits at 4.1. Troponin is within normal limits as well. Patient is hemodynamically stable. He continuously requesting Dilaudid for pain control. Advised patient that due to
chronic nature of his pain that our ER's policy is not to treat with parenteral narcotics and that he needs to follow-up with the body painter for this chronic pain. I contacted nephrology who states patient can go to his dialysis
center today. I contacted the dialysis center, [facility] [place], who states that as long as patient is there before 3 PM he can get his dialysis session today. Patient was advised on all of this. He was given a second dose of Percocet prior to
leaving. He is otherwise stable for discharge home.
ED Attending Note
-
Portions of this chart may have been created with voice recognition software.� Occasional wrong word or��sound alike� substitutions may have occurred due to the inherent limitations of voice recognition software.
Discharge Plan
Departure
Patient Disposition: Home (Routine Discharge)
Date of Disposition: 04/09/24
Time of Disposition: 13:05
Patient with high blood pressure during this ER visit?: No
Discharge Problem:
Chronic pain, End stage chronic kidney disease
Instructions: End-stage kidney disease (kidney failure)
Prescriptions:
No Action
amlodipine 10 MG tablet
10 mg PO DAILY
metoclopramide HCl [Reglan] 10 mg Tablet
10 mg PO TIDPRN PRN (Reason: nausea)
oxcarbazepine 150 mg tablet
150 mg PO HS
trazodone 50 mg Tablet
25 mg PO HSPRN PRN (Reason: sleep)
Patient Own Insulin Pump
0 units SC .VIA PUMP
Patient Comments:
03/31/24: Novolog insulin
diphenhydramine HCl 25 mg Capsule
25 mg PO Q4HPRN PRN (Reason: itchiness) Qty: 30 0RF
carvedilol 12.5 mg Tablet
12.5 mg PO BID Qty: 60 0RF
Referrals:
Casper Arroyo MD [Family Provider] -
Interventions
Interventions:
*Risk Screen - Suicide Last Done: 04/09/24 09:59
*General Assessment Last Done: 04/09/24 09:59
*Neglect/Abuse Screening Last Done: 04/09/24 09:59
*ED COVID-19 Vaccine History Last Done: 04/09/24 09:59
ED- Cardiac Assessment Last Done: 04/09/24 11:00
Discharge Date and Time
Print Language: INDONESIAN
[2024-04-09 11:00] VITALS: BP 150/97
[2024-04-09] MEDS: PERCOCET 5/325 1 TABLET PO ×2 (11:09→13:21)
[2024-04-09 11:53] LABS: % Basophils 1.2 % (0-2); % Eosinophils 9.2 % (0-6); % Immature Granulocytes 0.6 % (0-0.5); % Lymphocytes 23.6 % (20.5-51.1); % Monocytes 11.5 % (1.7-9.3); % Neutrophils 53.9 % (42.2-75.2); Absolute Eosinophils 0.3 10^3/uL (0-0.7); Absolute Lymphocytes 0.8 10^3/uL (1.2-3.4); Absolute Monocytes 0.4 10^3/uL (0.1-0.6); Absolute Neutrophils 1.9 10^3/uL (1.4-6.5); Hematocrit 29.3 % (39.0-52.0); Hemoglobin 9.6 g/dL (13.0-18.0); Mean Corp Hgb Conc. 32.8 g/dL (33.0-37.0); Mean Corpuscular Hgb 29.8 pg (27.0-31.0); Mean Platelet Volume 9.1 fL (7.4-10.4); Nucleated Red Blood Cells % 0 % (-); Platelet Count 316 10^3/uL (130-400); Red Blood Cell Count 3.22 10^6/uL (4.70-6.10); Red Cell Dist. Width 18.3 % (11.5-14.5); White Blood Cell Count 3.5 10^3/uL (4.8-10.8)
[2024-04-09 12:15] LABS: ALT (SGPT) < 10 U/L (0-50); AST (SGOT) 24 U/L (17-59); Albumin 3.4 g/dl (3.5-5.0); Alkaline Phosphatase 113 U/L (38-126); Blood Urea Nitrogen 31 mg/dl (9-20); Calcium 8.8 mg/dl (8.4-10.2); Carbon Dioxide 26 mmol/L (22-30); Chloride 96 mmol/L (98-107); Glucose 211 mg/dl (70-99); Potassium 4.1 mmol/L (3.5-5.1); Sodium 134 mmol/L (135-145); Total Bilirubin 0.8 mg/dl (0.2-1.3); Total Protein 6.4 g/dl (6.3-8.2)
[2024-04-09 12:43] LABS: Troponin I 0.019 ng/ml
== END 2024-04-09 13:35 | disposition home or self-care (01) ==
LOC: EMR 09:58
PROVIDERS: Physician Assistant Medical; EMERGENCY PHYSICIAN Emergency Medicine; FAMILY PHYSICIAN Internal Medicine
DX: R06.02 Shortness of breath (principal); R05.9 Cough, unspecified; R07.9 Chest pain, unspecified; R06.2 Wheezing; R10.9 Unspecified abdominal pain; J90 Pleural effusion, not elsewhere classified; I13.2 Hypertensive heart and chronic kidney disease with heart failure and with stage 5 chronic kidney disease, or end stage renal disease; N18.6 End stage renal disease; E11.22 Type 2 diabetes mellitus with diabetic chronic kidney disease; I50.9 Heart failure, unspecified; Z99.2 Dependence on renal dialysis; E11.43 Type 2 diabetes mellitus with diabetic autonomic (poly)neuropathy; I27.20 Pulmonary hypertension, unspecified; I48.0 Paroxysmal atrial fibrillation; G89.29 Other chronic pain; F17.200 Nicotine dependence, unspecified, uncomplicated; K31.84 Gastroparesis; Z79.4 Long term (current) use of insulin; Z86.711 Personal history of pulmonary embolism; Z86.74 Personal history of sudden cardiac arrest
CPT/HCPCS: 99284; 71046; 80053; 84484; 85025; 93005

== ENCOUNTER 2024-04-12 15:44 | Inpatient (IN) | payer OTHER, SELFPAY ==
[2024-04-12 08:48] VITALS: BP 171/104
--- NOTE | 2024-04-12 09:41 | ED.GENMED ---
History of Present Illness
General
Chief Complaint: Abdominal Pain
Source: patient
Time Seen by Provider: 04/12/24 09:26
Travel History
Have you had any contact with someone who has COVID-19?: No
Do you have any symptoms of coronavirus? Fever > 100 degrees, chills, cough, shortness of breath, sore throat, loss of taste or smell, muscle aches, or headache?: No
History of Present Illness
History of Present Illness:
34-year-old male with a very complex prior medical history presents emergency department with complaints of nausea that started last evening associate with anorexia, now progressed to several episodes of nonbloody vomiting and right upper quadrant
discomfort. The pain is without radiation, exacerbating, relieving factors. He denies lower abdominal pain, chest pain, shortness of breath. He says he has been 'fighting a cold' for about a week associated with congestion and cough. He denies
fever, chills, headache, dizziness. He does not produce urine. Patient has not checked his blood sugar since last night when it was in the '200s'
Past History
Past History
ED Past Medical History: Arrthythmia, CHF, HTN, IDDM, Renal failure (Dialysis M-W-F) and Other (ESRD, PE, Contipation, ESRD, TR, pulmonary hypertension, congestive heart failure, etc. chronic abdominal pain/gastroparesis)
ED Past Surgical History: Appendectomy and Other (Left AV fistula, biliary drain removed)
Patient has exhibited threatening behavior?: No
PSI?: No
Social History
Tobacco: Smoker
Alcohol: None
Drug: None
Personal: Single
Living: with family
Employment: Other
Family History
Family History: Other
Phy Exam
Physical Exam
Physical Exam:
GENERAL: Alert , in no apparent distress
EYE: pupils equal and reactive
NECK: Supple, no significant adenopathy.
ENT: o/p clr, mm slightly dry.
CARDIAC: Regular rate and rhythm .
LUNGS: Equal breath sounds bilaterally, no acute respiratory distress, occasional cough noted nonproductive, no rales, scattered wheezing and rhonchi, speaks in full sentences easily
ABDOMEN: Soft, mild to moderate right upper tenderness, no r/g
NEUROLOGICAL: Alert and oriented, no focal neuro deficits
SKIN: Warm and dry, multiple superficial areas of suspected 'skin picking' on upper extremities and upper back, no secondary infection noted
MUSCULOSKELETAL: No edema, well perfused.
PSYCH: Normal and appropriate interaction.
Course
Orders/Labs/Results
Orders:
Orders
04/12/24 09:29
US Abdomen Complete/Upper Urgent
Comment:
Reason For Exam: ABD PAIN
04/12/24 09:40
Electrocardiogram (*1) Urgent
Reason for Study: Other
Other Reason for Exam: sepsis
Cardiac Monitoring- Treatment ONCE
EKG- Treatment ONCE
CR Chest - 2 Views Urgent
Comment:
Reason For Exam: COUGH
04/12/24 09:44
Morphine Sulfate 4 mg IV NOW STA
04/12/24 10:03
Complete Blood Count/No Diff Urgent
Lactic Acid Q4H
Comment: CANCEL 2nd LACTIC ACID IF 1st LACTIC ACID IS LESS THAN 2
Blood Culture Q30M
VAISHALI Source: Blood/Venous
Specimen Description:
04/12/24 10:54
Comprehensive Metabolic Panel Urgent
Blood Culture Q30M
VAISHALI Source: Blood/Venous
Specimen Description:
04/12/24 12:34
CT Abd/pel Without Iv Or Oral Urgent
Comment:
Reason For Exam: ruq pain, known R pl eff
04/12/24 14:35
Acid Fast Culture & Smear Routine
VAISHALI Source: Pleural Fluid
Specimen Description:
Date Specimen was Collected: 04/13/24
Time Specimen was Collected: 13:13
Comment: post procedure
Body Fluid Amylase Routine
Fluid Source: Pleural
Date Specimen was Collected: 04/13/24
Time Specimen was Collected: 13:13
Body Fluid Cell Count Routine
What is the Body Fluid: pleural fluid
Date Specimen was Collected: 04/13/24
Time Specimen was Collected: 13:13
Body Fluid Glucose Routine
Fluid Source: Pleural
Date Specimen was Collected: 04/13/24
Time Specimen was Collected: 13:13
Body Fluid LDH Routine
Fluid Source: Pleural
Date Specimen was Collected: 04/13/24
Time Specimen was Collected: 13:13
Body Fluid Protein Routine
Fluid Source: Pleural
Date Specimen was Collected: 04/13/24
Time Specimen was Collected: 13:13
Body Fluid Triglycerides Routine
Fluid Source: Pleural
Date Specimen was Collected: 04/13/24
Time Specimen was Collected: 13:13
Body Fluid pH Routine
Fluid Source: Pleural
Date Specimen was Collected: 04/13/24
Time Specimen was Collected: 13:13
LDH Routine
Comment: post procedure, add on to morning labs if already drawn
Total Protein Routine
Comment: post procedure, add on to morning labs if already drawn
Fluid Culture with Gram Stain Routine
VAISHALI Source: Pleural Fluid
Specimen Description:
Date Specimen was Collected: 04/13/24
Time Specimen was Collected: 13:13
Fungus Culture Routine
VAISHALI Source: Pleural Fluid
Specimen Description:
Date Specimen was Collected: 04/13/24
Time Specimen was Collected: 13:13
Fungus Smear Routine
VAISHALI Source: Pleural Fluid
Specimen Description:
Date Specimen was Collected: 04/13/24
Time Specimen was Collected: 13:13
IRAD Cytology Routine
Date Specimen was Collected: 04/13/24
Time Specimen was Collected: 13:14
Source: Pleural Fluid, Right
Clinical Impression: volume overload
04/12/24 14:36
IRAD CONSULT Routine
Consulting Provider: Marcelino Lyon
Was physician already notified: Yes
Reason for Consult/Procedure: R Dx/Tx thoracentesis
Acknowledgement that appropriate orders are entered: Yes
04/12/24 14:37
NEPHROLOGY CONSULT Routine
Consulting Provider: Kulwinder Vigil V.
Was physician already notified: Yes
Reason for consult: ESRD
04/12/24 Dinner
Potassium, 2 Gram
At Your Request: Full Participation
Does patient need a safe tray?: No
04/12/24 15:13
Metoclopramide [Reglan] 10 mg IV NOW STA
04/12/24 15:14
Admit/Transfer Patient As Directed
Co-Sign Provider:
Level of Care: Inpatient admission
Assign to:: Medical/Surgical
Physician / Group: alexandra flanagan
Diagnosis: missed dialysis, abd pain 2/2 gastroparesis, recur Mod pleural eff
Reason for Hospitalization: missed dialysis, abd pain 2/2 gastroparesis, recur Mod pleural eff
Expected length of stay greater than two midnights?: Yes
ELOS- Estimated Length of Stay in days: 3
I certify the patient meets the requirements for IP care: Yes
Code Status As Directed
Resuscitation Status: Full Code
04/12/24 16:33
Acetaminophen [Tylenol] 650 mg PO Q4HPRN PRN
Diphenhydramine [Benadryl] 25 mg PO Q4HPRN PRN
Metoclopramide [Reglan] 10 mg PO TIDPRN PRN
Patient Own Insulin Pump 1 units SC .VIA PUMP
Trazodone [Desyrel] 25 mg PO HSPRN PRN
04/12/24 16:33
Activity As Directed
Activity Level: As Tolerated
Intake/ Output As Directed
Frequency: Per unit guidelines
Vital Signs As Directed
Frequency: Per unit guidelines
Weight As Directed
Frequency: Daily
Ot Eval And Treat Routine
Pt Eval And Treat Routine
Activity Level: As Tolerated
DX Deep Vein Thrombosis Video Routine
04/12/24 17:00
Furosemide [Lasix] 40 mg PO BID AT 0800,1600
04/12/24 20:00
Carvedilol [Coreg] 25 mg PO BID
Heparin 5,000 units SC Q12
04/12/24 22:00
Oxcarbazepine [Trileptal] 150 mg PO HS
04/13/24 05:53
Basic Metabolic Panel IN AM
Complete Blood Count/With Diff IN AM
04/13/24 08:00
Amlodipine [Norvasc] 10 mg PO DAILY
04/14/24 05:41
Basic Metabolic Panel IN AM
Complete Blood Count/With Diff IN AM
04/15/24 05:49
Basic Metabolic Panel IN AM
Complete Blood Count/With Diff IN AM
Abnormal Lab Results
04/12/24 04/12/24
10:03 10:54
RBC 3.32 L 10^6/uL
(4.70-6.10)
Hgb 9.9 L g/dL
(13.0-18.0)
Hct 29.8 L %
(39.0-52.0)
RDW 18.6 H %
(11.5-14.5)
BUN 50 H mg/dl
(9-20)
Creatinine 9.0 H* mg/dL
(0.7-1.3)
Glucose 161 H mg/dl
(70-99)
Albumin 3.4 L g/dl
(3.5-5.0)
04/12/24 10:03
04/12/24 10:54
Vital Signs
Initial and Last Documented VS:
Initial Vital Signs
Temp Pulse Resp BP Pulse Ox
97.8 F 89 16 171/104 94
04/12/24 08:48 04/12/24 08:48 04/12/24 08:48 04/12/24 08:48 04/12/24 08:48
Last Documented Vital Signs
Temp Pulse Resp BP Pulse Ox
97.5 F 78 16 123/78 100
04/16/24 07:00 04/16/24 12:15 04/16/24 07:00 04/16/24 12:15 04/16/24 12:14
*Critical Care Note
Total Time (30-74mins, 75-104mins- exclusive of procedures): Not Applicable
Update Note
Update Note:
Patient presents to the Emergency Department with _right upper quadrant abdominal pain nausea vomiting
Number and Complexity of Problems Addressed at the Encounter
� Chronic conditions affecting care:
� Acute Exacerbation and/or Progression of Chronic Illness:
� Differential Diagnosis includes: But not limited to cholecystitis, cholelithiasis, pancreatitis, DKA, etc. etc.
Amount and/or Complexity of Data to be Reviewed and Analyzed
� I performed an independent evaluation of and my interpretation is:
EKG: Read by me, normal sinus rhythm, normal rate, normal axis, nonspecific T wave inversions unchanged from prior
CT: Ill-defined wedge-shaped hypodensity within the superior pole of the spleen which was not present on the prior CT from 02/13/2024, suspicious for a subacute splenic infarction.
2. Moderate right pleural effusion with adjacent compressive atelectasis within the right lower middle lobes. Trace left pleural effusion.
3. Small volume of abdominal pelvic ascites.
4. Anasarca.
Xrays:mod R pl effusion
Laboratory Studies: Baseline anemia, known renal dysfunction, mild hyperglycemia
Other:
� Review of other/old records reveals: Patient was recently in the hospital, discharge summary reviewed, he suffered cardiac arrest, was noted to have a large pericardial effusion, etc.
� Clinical information was obtained by an independent historian:
� Prescriptions/Medications Considered but not given:
� Further testing considered but not performed:
Risk of Complications and/or Morbidity or Mortality of Patient Management
� Social determinants of health affecting care:
� Discussion with other providers (PCP, Hospitalists, Consultants, etc):
� Escalation of care including admission/observation vs risk of discharge considered: 12:35 PM reassessment patient overall appears uncomfortable, is requesting further narcotics. Given patient's chronic pain management as an
outpatient we will avoid further narcotics here in the emergency department and patient made aware. Ultrasound not revealing for specific etiology for his right upper quadrant pain. Chest x-ray does show worsening right pleural effusion and that
may be the source of his pain. Will check CT now to explore potential other etiologies. Pulse ox remains stable.
case d/w dr Carly slater, nephrlogy. She has not seen pt in 8 months, he is very very noncompliant. She is aware of findings here, at this time CT had not yet been resulted.
CT c/w subacute splenic infarct. Case d/w hospit via tt.
ED Attending Note
-
Portions of this chart may have been created with voice recognition software.� Occasional wrong word or��sound alike� substitutions may have occurred due to the inherent limitations of voice recognition software.
Discharge Plan
Departure
Patient Disposition: Admit
Date of Disposition: 04/12/24
Time of Disposition: 14:41
Admit to: Telemetry
Presentation/result/management discussed w/ accepting MD/DO: Hospitalist
Condition: Fair
Discharge Problem:
Splenic infarct, Pleural effusion
Interventions
Interventions:
*Risk Screen - Suicide Last Done: 04/12/24 17:12
*General Assessment Last Done: 04/12/24 08:53
*Neglect/Abuse Screening Last Done: 04/12/24 08:53
ED- Fall Risk Assessment Last Done: 04/12/24 16:59
*ED COVID-19 Vaccine History Last Done: 04/12/24 16:59
*Nursing Disposition Last Done: 04/12/24 16:59
JI-[id number]-[id number] Assessment Last Done: 04/12/24 10:36
Discharge Date and Time
Discharge Date/Time: 04/12/24 17:01
[2024-04-12] MEDS: MORPHINE SULFATE 4 MG IV (10:07)
[2024-04-12 10:15] LABS: Hematocrit 29.8 % (39.0-52.0); Hemoglobin 9.9 g/dL (13.0-18.0); Mean Corp Hgb Conc. 33.2 g/dL (33.0-37.0); Mean Corpuscular Hgb 29.8 pg (27.0-31.0); Mean Corpuscular Volume 89.8 fL (80.0-94.0); Mean Platelet Volume 9.1 fL (7.4-10.4); Platelet Count 288 10^3/uL (130-400); Red Blood Cell Count 3.32 10^6/uL (4.70-6.10); Red Cell Dist. Width 18.6 % (11.5-14.5); White Blood Cell Count 5.2 10^3/uL (4.8-10.8)
[2024-04-12 11:00] VITALS: BP 146/98
[2024-04-12 11:29] LABS: AST (SGOT) 19 U/L (17-59); Albumin 3.4 g/dl (3.5-5.0); Alkaline Phosphatase 102 U/L (38-126); Blood Urea Nitrogen 50 mg/dl (9-20); Calcium 8.5 mg/dl (8.4-10.2); Carbon Dioxide 24 mmol/L (22-30); Chloride 99 mmol/L (98-107); Glucose 161 mg/dl (70-99); Potassium 4.6 mmol/L (3.5-5.1); Sodium 138 mmol/L (135-145); Total Protein 6.4 g/dl (6.3-8.2)
[2024-04-12 11:52] LABS: ALT (SGPT) < 10 U/L (0-50)
[2024-04-12 13:00] VITALS: BP 141/96
[2024-04-12 14:39] VITALS: BP 143/95
--- NOTE | 2024-04-12 14:44 | HPS.HSE ---
Family Physician
-
Family Physician: * NONE
Chief Complaint
-
Abdominal pain, nausea, vomiting.
History of Present Illness
34-year-old male complaining of nausea, nonbloody vomiting and right upper quadrant pain he has past medical history of chronic abdominal pain secondary to gastroparesis and is on Reglan. He states he took Reglan this a.m. along with Tylenol Motrin
with no relief. He also reports cough and congestion for the past week denies fever, chills, headache, dizziness, chest pain, palpitations, diarrhea, urinary symptoms. He reports he missed dialysis today. On chest x-ray shows a recurrent moderate
right pleural effusion. He also has been picking at his skin which he states he normally does. He has multiple scrapes to his lower extremities with open area to right lower extremity, left forearm, over left AV fistula, right elbow and posterior
neck
Past medical history, pericardial effusion with impending cardiac tamponade had pericardiocentesis 385 cc exudative fluid on 03/31, history of right pleural effusion status post thoracentesis 04/04/2024, Hx cardiac arrest Hx PE, ESRD on HD Friday
Friday,, paroxysmal A-fib, splenic infarct, diabetes mellitus type 1, Hx DKA, Hx chronic hypotension, essential HTN, alcohol use/polysubstance abuse in the past.
Medical History
Past Medical History
Past Medical History: Reports Other
Additional Past Medical History:
IIDM insulin pump
diabetic nephropathy
ESRD on MWF HD
Right-sided pleural effusion
Chronic abdominal pain secondary to gastroparesis
Hypertension
Severe pulmonary hypertension,
Alcohol use disorder,
Anxiety/depression
HX noncompliance with medications and hemodialysis
Skin picking disorder
Past Surgical History: Reports Other
Additional Past Surgical History:
LUE AVF
Appendectomy
PD Catheter placed / removed
Social History
Tobacco: Smoker
Alcohol: Occasional
Personal: Single
Living: With Family
Family History
Family History: Other (Patient reports his only child states his mother and father are healthy do not take any medication)
Allergies / Home Medications
Allergies reflects when Allergies were last updated in [employer]
Home Medications with original date entered in [employer]
Allergy/Medication List:
Allergies
Allergy/AdvReac Type Severity Reaction Status Date / Time
shellfish derived Allergy Hives Verified 04/12/24 08:53
Home Medications
amlodipine 10 mg tablet 10 mg PO DAILY Blood pressure 04/22/21
metoclopramide HCl 10 mg tablet (Reglan) 10 mg PO TIDPRN PRN nausea 04/07/23
oxcarbazepine 150 mg tablet 150 mg PO HS 07/24/23
trazodone 50 mg tablet 25 mg PO HSPRN PRN sleep 01/05/24
Patient Own Insulin Pump 0 units SC .VIA PUMP diabetes 02/13/24
diphenhydramine HCl 25 mg capsule 25 mg PO Q4HPRN PRN itchiness #30 caps 04/06/24
carvedilol 25 mg tablet 25 mg PO BID 04/12/24
furosemide 40 mg tablet 40 mg PO BID 04/12/24
Review of Systems
-
History Source: Patient
A 12 point ROS was completed and negative except as noted: Yes
Constitutional: Denies Fever or Chills
EENT: Denies Sore Throat or Runny Nose
Respiratory: Denies Cough, Hemoptysis or Trouble Breathing
Cardiac: Denies Chest Pain, Diaphoresis, Palpitations or Syncope
Abdomen/GI: Reports Abdominal Pain, Nausea and Vomiting; Denies Diarrhea, Constipated, Bloody Stools or Black Stools
Musculoskeletal: Reports Other; Denies Joint Pain or Edema
Skin: Reports Rash ( He has multiple scrapes to his lower extremities with open area to right lower extremity, left forearm, over left AV fistula, right elbow and posterior neck)
Neurological: Denies Dizzy, Headache or Weakness
Endocrine: Reports No Symptoms
Hematologic/Lymphatic: Reports No Symptoms
Psych: Reports Calm
Physical Exam
Vital Signs
Vital Signs
Temp Pulse Resp BP Pulse Ox
97.8 F 81 15 141/96 93
04/12/24 08:48 04/12/24 13:00 04/12/24 13:00 04/12/24 13:00 04/12/24 12:45
Physical Exam
General: Conversant; No Fever or Chills
HEENT: NormoCephalic, Anicteric, Moist mucous membranes, PERRLA, [place] Conjunctivae and No Ptosis
Respiratory: Clear; No Wheezes or Rales
Cardiac: S1/S2 and Regular Rhythm; No Murmur, Rub, Gallop or Peripheral Edema
Breast: Deferred by me
GI: Soft, Non Distended, Normal Bowel Sounds, Tender (Right upper quadrant) and No Hepatosplenomegaly
Rectal: Deferred by Provider
Genito-urinary: Deferred by me
Musculoskeletal: No Clubbing, No Cyanosis and No Edema
Skin: Rash (icking at his skin which he states he normally does. He has multiple scrapes to his lower extremities with open area to right lower extremity, left forearm, over left AV fistula, right elbow and posterior neck)
Neuro: AO x 3, No Motor Deficits, Nonfocal/grossly intact, Cranial Nerves Intact and No Sensory Deficits; No Slurred Speech, Facial Droop or Tremors
Psych: Calm
Laboratory Results
-
04/12/24 10:03
04/12/24 10:54
Laboratory Results
Lactic Acid Cancelled 04/12/24 13:45
Total Bilirubin 1.0 mg/dl (0.2-1.3) 04/12/24 10:54
AST 19 U/L (17-59) 04/12/24 10:54
ALT < 10 U/L (0-50) 04/12/24 10:54
Alkaline Phosphatase 102 U/L (38-126) 04/12/24 10:54
Lipase 33 U/L (23-300) 04/12/24 10:54
Data Reviewed
-
Lab Data: Labs Reviewed by me
Impression/Plan
-
Impression/plan:
Admit to Med surg
#Acute on chronic recurrent pleural effusion/moderate right pleural effusion
Hx thoracentesis 04/04/2024
-Consult IR for thoracentesis
-Patient missed dialysis today
CXR: Interval enlargement of right pleural effusion moderate in degree with adjacent atelectasis
#History of noncompliance with medications and dialysis
# Acute on chronic abdominal pain with history of gastroparesis
-Continue Reglan
-No Narcotics
-Will give IV Reglan 10 mg now then continue p.o. 10 mg [address] abdomen pelvis: Chronic splenic infarct, small volume abdominal pelvic ascites, anasarca, moderate right pleural effusion
#ESRD on HD
Dialysis Friday missed today 04/12/2024
Left upper extremity AV fistula
-Consult Nephrology Dr. Vigil aware
-Follow BMP
#Chronic splenic infarct
#Alcohol use disorder/polysubstance abuse in the past states quit January 2024
-Monitor for alcohol withdrawal and continue with protocol.
Used to drink several glasses of whiskey per night stopped January 2024
-Will hold any narcotics
#Chronic skin picking
He has multiple scrapes to his lower extremities with open area to right lower extremity, left forearm, over left AV fistula, right elbow and posterior neck
-Will monitor for any infection, and daily soap and water
#Diabetes mellitus type 1
Accu-Cheks with SSI
-Continue patient's insulin pump
#Chronic hypotension/essential HTN
BP 141/96
Continue carvedilol 25 mg p.o. twice daily, amlodipine 10 mg daily
#Anemia secondary to chronic disease/ESRD
Hgb 9.9
#Pericardial effusion with impending cardiac tamponade--Pericardiocentesis with 385 cc exudative fluid on 03/31. Pericardial pressure went from 21 down to 7 mmHg postprocedure.
#Pericardial drain cultures were negative
Pericardial drain removed on 04/02.
-Follow-up echocardiogram on 04/02 with normal left ventricular size and systolic function and minimal pericardial effusion.
#PEA/Cardiac arrest 03/13/2024 status post VDRF and subsequent extubation
#Paroxysmal A-fib
-not on AC secondary to compliance
-Continue carvedilol 25 mg p.o. twice daily
2D echo 04/02/2024: EF 55 to 60%, mild LVH,dilated hypocontractile right ventricle, trace pulmonic regurg, small pericardial effusion 0.8 cm
Follows at [facility] cardiology
#Severe pulmonary HTN, severe TR, enlarged RV was recommended outpatient sleep study
#History of PE 2020 treated x 6 months with AC therapy currently not on
#Anxiety/depression
Continue oxy carbamazepine, trazodone
#Nicotine abuse
1/2 pack/day x 19 years
-Cessation advised
DVT prophylaxis-heparin sq
CODE STATUS: Full code
[2024-04-12 15:00] VITALS: BP 156/107
--- NOTE | 2024-04-12 15:26 | W.PN.UPDATE ---
Update Note
Progress Note Update
I saw and examined the patient.
The SURGERY SCHEDULER or PA's note was reviewed and I agree with the note.
Comment: 34 y/o M who presents with a CC abd pain. Patient is well-known to this hospital as he has had multiple, recurrent admissions. He was most recently discharged April 07, 2024 for symptomatic pericardial effusion with impending tamponade. He
had urgent pericardiocentesis. Since discharge the patient missed his hemodialysis on Tuesday, April 09, 2024. He has not had hemodialysis since he was last admitted. The patient's past medical history is extensive and includes:
Chronic abdominal pain
Gastroparesis
Medical noncompliance
Cardiac arrest March 2024
Right pleural effusion
h/o pulmonary embolism
End-stage renal disease on hemodialysis (as per discussion with Dr. Randhawa in the ER patient has not been compliant with hemodialysis in the outpatient setting for at least 8 months as per her discussion with his manager drug safety)
Paroxysmal atrial fibrillation
Splenic infarct
Type 1 diabetes, poorly controlled with a history of diabetic ketoacidosis
Alcohol abuse disorder
Tobacco abuse disorder
Polysubstance abuse disorder
Chronic heart failure with preserved ejection fraction
The patient has left healthcare facilities AGAINST MEDICAL ADVICE multiple times in the past (recently signed out AMA on 03/26/24 from [facility]). He has a documented history of drug-seeking behavior (as documented in the progress note by
Dr. Moses on 04/01/24).
143/95, 82, 14, 97.8 �F, 92% RA
NAD, awake and alert, NCAT, appears chronically ill
RRR, normal S1/S2
CTAB anteriorly
+BS/soft/NT/ND
CN2-12 intact
Lab Results
04/12/24 04/12/24 04/12/24
10:03 10:54 13:45
WBC 5.2
RBC 3.32 L
Hgb 9.9 L
Hct 29.8 L
MCV 89.8
MCH 29.8
MCHC 33.2
RDW 18.6 H
Plt Count 288
MPV 9.1
Sodium Cancelled 138
Potassium Cancelled 4.6
Chloride Cancelled 99
Carbon Dioxide Cancelled 24
BUN Cancelled 50 H
Creatinine Cancelled 9.0 H*
Estimated Creat Clear Cancelled
eGFR Cancelled 7.30
Glucose Cancelled 161 H
Lactic Acid 1.0 Cancelled
Calcium Cancelled 8.5
Total Bilirubin Cancelled 1.0
AST Cancelled 19
ALT Cancelled < 10
Alkaline Phosphatase Cancelled 102
Total Protein Cancelled 6.4
Albumin Cancelled 3.4 L
Lipase Cancelled 33
CT A/P:
1. Ill-defined wedge-shaped hypodensity within the superior pole of the spleen which was not present on the prior CT from 02/13/2024, suspicious for a subacute splenic infarction.
2. Moderate right pleural effusion with adjacent compressive atelectasis within the right lower middle lobes. Trace left pleural effusion.
3. Small volume of abdominal pelvic ascites.
4. Anasarca.
Abd U/S: Mild hepatic steatosis. Mild gallbladder wall thickening, which appears to be a chronic finding, and likely reactive in nature. No stones or sludge. Spleen not visualized.
CXR: Interval enlargement of RIGHT pleural effusion, moderate in degree, with adjacent atelectasis.
End-stage renal disease on hemodialysis:
-due to diabetic nephropathy
-Patient with a long history of medical noncompliance
-Case discussed with nephrology, Dr. Vigil. The pt will be dialyzed tomorrow.
Abdominal pain, nausea:
-Afebrile, no leukocytosis, hemodynamically stable
-CT A/P above. Patient has a history of splenic infarct and this is not new. He also has a history of right pleural effusion and this also is not new.
-The patient was given 4mg of IV morphine in the ER
-The patient has chronic abdominal pain. He also has a history of gastroparesis.
-The patient was requesting further IV narcotic therapy. I explained to the patient that this is not appropriate at this time. When asked why I explained that narcotics are dangerous medications that have addictive properties as well as
potentially harmful side effects. I also explained that with a history of gastroparesis narcotics will worsen this. At this time the patient is asked for a different provider. A different physician will see him on April 13, 2024.
-At this time we will use Reglan for the patient's abdominal pain as I am concerned that most of his abdominal pain is due to chronic diabetic gastroparesis.
-Can also use Tylenol as needed and/or neurontin 300mg/day
Right pleural effusion:
-Consult IR for diagnostic and therapeutic right thoracentesis
-currently the patient is not tachypneic and is saturating well on room air
[2024-04-12 16:37] LABS: Glucose - Point of Care 93 mg/dl (70-99)
--- NOTE | 2024-04-12 16:37 | W.CON.NEPH ---
Consultation
-
Date/Time Consultation Requested: April 12, 2024 330 PM
Date/Time Consultation Performed: April 12, 2024 4:15 PM
Requesting Provider: Dr. Lopes
Performing Provider: Dr. Vigil
Reason for Consultation: End-stage renal disease
Medical History
-
Chief Complaint: End-stage renal
History of Present Illness:
The patient is a 34-year-old man with diabetes mellitus type 1 on insulin, blindness, and end-stage renal disease on hemodialysis MW. He was recently in the hospital just last week. He has a notorious history of noncompliance and signing out
AMA and does not regularly go to his own hemodialysis unit but instead shows up to the emergency room with complaints of abdominal pain seeking narcotics for pain relief. He is maintained chronically on carvedilol for his hypertension is maintained
on an insulin pump for his diabetes. He presented today complaining of nausea, nonbloody vomiting and right upper quadrant pain he has past medical history of chronic abdominal pain secondary to gastroparesis and is on Reglan. He states he took
Reglan this a.m. along with Tylenol Motrin with no relief. He also reports cough and congestion for the past week denies fever, chills, headache, dizziness, chest pain, palpitations, diarrhea, urinary symptoms. He reports he missed dialysis today.
On chest x-ray shows a recurrent moderate right pleural effusion. He also has been picking at his skin which he states he normally does. He has multiple scrapes to his lower extremities with open area to right lower extremity, left forearm, over
left AV fistula, right elbow and posterior neck
Past medical history, pericardial effusion with impending cardiac tamponade had pericardiocentesis 385 cc exudative fluid on 03/31, history of right pleural effusion status post thoracentesis 04/04/2024, Hx cardiac arrest Hx PE, ESRD on HD Friday
Friday,, paroxysmal A-fib, splenic infarct, diabetes mellitus type 1, Hx DKA, Hx chronic hypotension, essential HTN, alcohol use/polysubstance abuse in the past.
Past Medical History
end-stage renal disease on hemodialysis
PE
constipation
CHF
pleural effusions
depression/ anxiety
polysubstance abuse
Diabetes mellitus type I
Left upper extremity AV fistula
Pulmonary hypertension
pericardial effusion with impending cardiac tamponade had pericardiocentesis 385 cc exudative fluid on 03/31, history of right pleural effusion status post thoracentesis 04/04/2024, Hx cardiac arrest Hx PE, ESRD on HD Friday,,
paroxysmal A-fib, splenic infarct, diabetes mellitus
Past Surgical History: Other (LUE AVF Appendectomy PD Catheter placed / removed)
Social History
Tobacco: Smoker
Alcohol: Occasional
Drug: Other (h/o polysub abuse)
Family History
Family History: Not Pertinent
Allergies / Home Medications
Allergy/AdvReac Type Severity Reaction Status Date / Time
shellfish derived Allergy Hives Verified 04/12/24 08:53
�Medication �Instructions �Recorded �Confirmed �Type
amlodipine 10 mg tablet 10 mg PO DAILY Blood pressure 04/22/21 04/12/24 History
metoclopramide HCl 10 mg tablet 10 mg PO TIDPRN PRN nausea 04/07/23 04/12/24 History
(Reglan)
oxcarbazepine 150 mg tablet 150 mg PO HS Neurological Condition 07/24/23 04/12/24 History
trazodone 50 mg tablet 25 mg PO HSPRN PRN sleep 01/05/24 04/12/24 History
Patient Own Insulin Pump 0 units SC .VIA PUMP diabetes 02/13/24 04/12/24 History
diphenhydramine HCl 25 mg capsule 25 mg PO Q4HPRN PRN itchiness #30 04/06/24 04/12/24 Rx
caps
carvedilol 25 mg tablet 25 mg PO BID Blood Pressure 04/12/24 04/12/24 History
furosemide 40 mg tablet 40 mg PO BID Fluid 04/12/24 04/12/24 History
Retention/Swelling
Review of Systems
-
History Source: Patient
All other systems: Negative unless noted
Abdomen/GI: Abdominal Pain, Nausea and Vomiting
Musculoskeletal: No Symptoms
Neurological: No Symptoms
Endocrine: No Symptoms
Hematologic/Lymphatic: No Symptoms and Other (Left upper extremity AV fistula)
Physical Exam
Vital Signs
Vital Signs
Temp Pulse Resp BP Pulse Ox
97.8 F 82 14 143/95 92
04/12/24 15:01 04/12/24 14:45 04/12/24 14:45 04/12/24 14:39 04/12/24 14:45
Lab Results
WBC 5.2 10^3/uL (4.8-10.8) 04/12/24 10:03
RBC 3.32 10^6/uL (4.70-6.10) L 04/12/24 10:03
Hgb 9.9 g/dL (13.0-18.0) L 04/12/24 10:03
Hct 29.8 % (39.0-52.0) L 04/12/24 10:03
Plt Count 288 10^3/uL (130-400) 04/12/24 10:03
Sodium 138 mmol/L (135-145) 04/12/24 10:54
Potassium 4.6 mmol/L (3.5-5.1) 04/12/24 10:54
Chloride 99 mmol/L (98-107) 04/12/24 10:54
Carbon Dioxide 24 mmol/L (22-30) 04/12/24 10:54
BUN 50 mg/dl (9-20) H 04/12/24 10:54
Creatinine 9.0 mg/dL (0.7-1.3) H* 04/12/24 10:54
eGFR 7.30 04/12/24 10:54
Glucose 161 mg/dl (70-99) H 04/12/24 10:54
Calcium 8.5 mg/dl (8.4-10.2) 04/12/24 10:54
Albumin 3.4 g/dl (3.5-5.0) L 04/12/24 10:54
Physical Exam
General: AOx3, Nontoxic , NAD
HEENT: PERRL, EOMI, Anicteric, Conjunctivae Clear, Ear/Nose Intact, Hearing Normal, Oropharynx Clear/Moist, Dentition Intact, Facial Symmetry, Neck Supple, Neck: Trachea Midline, No JVD and No Thyromegaly, no Bruits
Respiratory: Clear to auscultation bilaterally with normal lung excursion, decreased breath sounds to bases
Cardiac: S1/S2 and Regular Rate/Rhythm
Breast: Deferred by me
Abdomen: Soft, Nontender, Nondistended, Normal Bowel Sounds and No Hepatosplenomegaly
Rectal: Deferred by Provider
Genito-urinary: No Costovertebral Tenderness
Extremities: No Clubbing, No Cyanosis and pitting edema in all 4 extremities
Skin: No Rash or open lesions
Neuro: Nonfocal/Grossly Intact, CN II-XII (Intact) and Strength (Musculoskeletal exam 5 out of 5 both upper and lower extremities)
Hematologic/Lymphatic: No Cervical Lymphadenopathy, No Submandibular Lymphadenopathy and No Supraclavicular Lymphadenopathy
Psych: Mood/afflect pleasant, Insight/judgement good and Appropriate
Vascular: plus 1 pedal and radial pulses
Vascular Access: AVF (Left upper extremity with good thrill and bruit aneurysmal dilatation: )
Data Reviewed
-
Radiology: Image Personally Visualized and interpreted (Right pleural effusion of significance)
CT Scan: Report Reviewed by me
Labs: Labs Reviewed by me (Reviewed CBC BMP)
Old Records: Reviewed (Reviewed consult from 03/31/2020)
Assessment/Plan
-
Impression:
ESRD (MWF) last HD last friday
Status post PEA/Asystole 03/13/24
PAF : briefly after code on 03/13/24
Chronic noncompliance with dialysis
ESRD MWF ([facility]),
left UE AVF
DKA hx/metabolic acidosis
Hyperkalemia
Hyponatremia
Chronic Abdominal Pain / Gastroparesis
Pulmonary hypertension
Polysubstance abuse
Anxiety
Anemia
Right pleural effusion--s/p R throa for pleural effusion with 1.8L transudate 02/17/24
History of pericardial effusion requiring pericardial drain
Plan:
Dialysis will be provided tomorrow orders provide
Fluid restriction and appropriate dietary restrictions
Will likely require repeat thoracentesis due to reaccumulation of right pleural effusion
midodrine 5mg on HD to facilitate ultrafiltration as patient is massively volume overload
PETE for anemia
Patient is notoriously noncompliant and we are unable to effectively properly dialyze the patient and his fluid gains
[2024-04-12 16:45] VITALS: BP 166/103; BMI 22.1
[2024-04-12] MEDS: LASIX 40 MG PO (17:06)
[2024-04-12] MEDS: TYLENOL 650 MG PO (17:41)
[2024-04-12 20:32] LABS: Glucose - Point of Care 98 mg/dl (70-99)
[2024-04-12] MEDS: COREG 25 MG PO (20:37)
[2024-04-12] MEDS: TRILEPTAL 150 MG PO (20:39)
[2024-04-12] MEDS: DESYREL 25 MG PO (20:40)
[2024-04-12] MEDS: BENADRYL 25 MG PO (20:40)
[2024-04-13 02:19] LABS: Glucose - Point of Care 65 mg/dl (70-99)
[2024-04-13] MEDS: PT'S OWN INSULIN PUMP - NovoLOG SC ×4 (02:28→21:37)
[2024-04-13 02:48] LABS: Glucose - Point of Care 100 mg/dl (70-99)
[2024-04-13 04:50] LABS: Glucose - Point of Care 129 mg/dl (70-99)
[2024-04-13 06:39] LABS: % Basophils 0.9 % (0-2); % Immature Granulocytes 0.5 % (0-0.5); % Lymphocytes 27.5 % (20.5-51.1); % Monocytes 7.3 % (1.7-9.3); % Neutrophils 57.8 % (42.2-75.2); Absolute Basophils 0.1 10^3/uL (0-0.2); Absolute Eosinophils 0.3 10^3/uL (0-0.7); Absolute Lymphocytes 1.5 10^3/uL (1.2-3.4); Absolute Monocytes 0.4 10^3/uL (0.1-0.6); Absolute Neutrophils 3.2 10^3/uL (1.4-6.5); Hematocrit 30.4 % (39.0-52.0); Hemoglobin 9.9 g/dL (13.0-18.0); Mean Corp Hgb Conc. 32.6 g/dL (33.0-37.0); Mean Corpuscular Hgb 29.4 pg (27.0-31.0); Mean Corpuscular Volume 90.2 fL (80.0-94.0); Mean Platelet Volume 9.4 fL (7.4-10.4); Nucleated Red Blood Cells % 0 % (-); Platelet Count 282 10^3/uL (130-400); Red Blood Cell Count 3.37 10^6/uL (4.70-6.10); Red Cell Dist. Width 18.3 % (11.5-14.5); White Blood Cell Count 5.5 10^3/uL (4.8-10.8)
[2024-04-13 06:45] LABS: Blood Urea Nitrogen 55 mg/dl (9-20); Carbon Dioxide 20 mmol/L (22-30); Chloride 100 mmol/L (98-107); Estimated Creatinine Clearance 10 ml/min; Glucose 145 mg/dl (70-99); LDH 238 U/L (120-246); Sodium 135 mmol/L (135-145); Total Protein 5.7 g/dl (6.3-8.2); eGFR 6.84
[2024-04-13 07:00] VITALS: BP 129/84
[2024-04-13] MEDS: HEPARIN 500 UNITS IV ×2 (08:05→09:05)
[2024-04-13] MEDS: ProAmatine 5 MG PO (08:10)
[2024-04-13 08:17] LABS: Glucose - Point of Care 123 mg/dl (70-99)
[2024-04-13] MEDS: RETACRIT 10000 UNITS IV (09:09)
--- NOTE | 2024-04-13 09:56 | W.PN.NEPH.HD ---
Assessment
-
Patient on dialysis
Systolic blood pressure stable UF
Progress Note - Hemodialysis
-
Date of Service: April 13, 2024
Duration: 45 minutes and 3 hours
Potassium Bath: 2
Calcium Bath: 2.5
Opti-Dialyzer: 160
Ultrafiltration: Other (3 to 4 kg)
Blood Flow: 400
Dialysate Flow: 600
Heparin: 500 times two
EPO: Given
--- NOTE | 2024-04-13 10:59 | W.PN.HOSP.TC ---
Addendum entered and electronically signed by Erasto Camacho MD 04/13/24 16:14:
Patient seen and examined
Discussed with resident
Discussed with nephrology
Impression:
Presentation with acute right upper quadrant abdominal pain.
Missed hemodialysis.
Recurrent right pleural effusion likely causing pain.
Conditions prior to admission:
Recent hospitalization with hemorrhagic pericardial effusion and pretamponade requiring pericardiocentesis.
Acute hypoxic respiratory failure secondary to right pleural effusion status post 1.5 L thoracentesis on 04/04 exudative with negative cultures.
Prior history of pulmonary embolism recent follow-up studies including CT chest and lower extremity Doppler negative.
End-stage renal disease on hemodialysis Friday per
Paroxysmal atrial fibrillation. Not on anticoagulation due to poor compliance as well as recent hemorrhagic pericardial effusion.
Persistent splenic infarct
Type 1 diabetes on insulin pump at home
Essential hypertension.
Alcohol disorder/polysubstance abuse.
Recent hospitalization from with PEA arrest in the settings of DKA
Plan:
Persistent right upper quadrant abdominal pain, not positional, not related to inspiration
Repeated abdominal imaging including CT scan and abdominal ultrasound with no acute intra-abdominal pathology
Noted reaccumulating at least moderate right pleural effusion.
Most likely pain related to reaccumulating right pleural effusion/healing rib fractures.
Status post thoracentesis on 04/13 1450 mL fluid pH 7.54 pending rest of the date
Monitor for right upper quadrant pain.
Initiated on IV hydromorphone with plan to wean after thoracentesis
End-stage renal disease on hemodialysis poor compliance
Missed HD likely causing recurrent third spacing including recurrent pleural effusion
Extensive conversation with patient
Subacute splenic infarct
Traced on images over last admission.
Recent ID workup negative
Repeat blood cultures pending
Echocardiogram with no evidence for vegetation
Patient will need outpatient hematology follow-up for further workup including possibility of hypercoagulable state
Recent pericardial effusion
Stable hemodynamic status.
Monitor closely
A-fib
Essential hypertension
Continue preadmission regimen including Coreg
Not on anticoagulation due to recent hemorrhagic pericarditis
IDDM.
Continue insulin pump
Continue serial Accu-Cheks
Original Note:
Today's Communication/Plan
-
- Hemodialysis in the morning.
- Thoracentesis in the afternoon.
Assessment / Plan
Assessment / Plan
Acute on chronic recurrent pleural effusion/moderate right pleural effusion
- History of thoracentesis 04/04/2024
- Possibly causing the RUQ pain.
- Thoracentesis today.
Acute on chronic abdominal pain
Gastroparesis
- Continue metoclopramide
- No Narcotics
- Received metoclopramide 10 mg IV; now on p.o. 10 mg 3 times daily
- Hydromorphone 0.5 mg IV once in the morning; will follow
End-stage renal disease
- Dialysis Friday missed 04-12-24
- Left upper extremity AV fistula
- Nephrology following.
- Hemodialysis today; tolerated it well.
- Monitor BMP.
Sub-acute splenic infarct
- Noted on CT AP.
- No indication to intervene at this point.
- Monitor symptoms.
Alcohol use disorder/polysubstance abuse
- Patient states that he quit in January 2024
- Monitor for alcohol withdrawal and continue with protocol.
- Used to drink several glasses of whiskey per night stopped January 2024
Chronic skin picking
- He has multiple scrapes to his lower extremities with open area to right lower extremity, left forearm, over left AV fistula, right elbow and posterior neck
- Will monitor for any infection, and daily soap and water
Diabetes mellitus type 1
- Accu-Cheks with SSI
- Continue patient's insulin pump
Essential HTN
- With a history of intermittent hypotension
- Continue carvedilol 25 mg p.o. twice daily, amlodipine 10 mg daily
Anemia secondary to chronic disease/ESRD
- Hemoglobin 9.9.
Pericardial effusion with impending cardiac tamponade
- Pericardiocentesis with 385 cc exudative fluid on 03/31.
- Pericardial pressure went from 21 down to 7 mmHg postprocedure.
- Pericardial cultures were negative; pericardial drain removed on 04/02.
- Follow-up echocardiogram on 04/02 with normal left ventricular size and systolic function and minimal pericardial effusion.
History of PEA/Cardiac arrest 03/13/2024
- Status post VDRF and subsequent extubation
Paroxysmal A-fib
- Not on AC secondary to compliance
- Continue carvedilol 25 mg p.o. twice daily
- 2D echo 04/02/2024: EF 55 to 60%, mild LVH,dilated hypocontractile right ventricle, trace pulmonic regurg, small pericardial effusion 0.8 cm.
- Follows at [facility] cardiology
History of PE 2020
- Treated for 6 months with AC therapy
- Currently not on any AC.
Anxiety/depression
- Continue oxcarbazepine and trazodone
Tobacco use disorder
- 1/2 pack/day x 19 years
- Cessation advised
DVT prophylaxis
- Heparin sq.
Code status
- Full.
Anticipated Discharge: 24 - 48 hours
Subjective/Interval History
-
Date of Service: April 13, 2024
Objective Data
-
Labs:
Laboratory Results
04/13/24
05:53
WBC 5.5
Hgb 9.9 L
Hct 30.4 L
Plt Count 282
Sodium 135
Potassium 5.0
Chloride 100
Carbon Dioxide 20 L
BUN 55 H
Creatinine 9.5 H*
Glucose 145 H
Calcium 8.0 L
Vital Signs:
Vital Signs
Temp Pulse Resp BP Pulse Ox
97.8 F 80 16 150/105 96
04/13/24 07:00 04/13/24 07:00 04/13/24 07:00 04/13/24 08:10 04/13/24 09:10
I&O
04/12/24 04/13/24 04/14/24
06:59 06:59 06:59
Intake Total 720 / 720
Balance 720 / 720
Review of Systems
-
History Source: Patient
Constitutional: Reports Fatigue
EENT: Reports No Symptoms Reported
Respiratory: Reports Cough (for the past few days) and Trouble Breathing (mild and intermittent)
Cardiac: Reports No Symptoms
Abdomen/GI: Reports Abdominal Pain (RUQ; 06/12); Denies Nausea, Vomiting, Diarrhea, Constipated, Bloody Stools or Anorexia
Genitourinary: Reports No Symptoms
Musculoskeletal: Reports No Symptoms
Skin: Reports No Symptoms
Neuro: Reports No Symptoms
Endocrine: Reports No Symptoms
Hematologic / Lymphatic: Reports No Symptoms
Allergy / Immunology: Reports No Symptoms
Physical Exam
-
General: No Apparent Distress and Comfortable
HEENT: Normocephalic, Atraumatic, Moist Mucous Membranes and Anicteric
Respiratory: Decreased Breath Sounds (Right lower and middle lobe)
Cardiac: Regular Rhythm and S1/S2; Negative Murmur, Rub or Gallop
GI: Soft, Nontender, Nondistended and Tender (RUQ)
Rectal: Deferred by Provider
Musculoskeletal: No Clubbing, No Cyanosis and No Edema
Skin: Warm, Dry, IV Access / Catheter Site and Other (multiple scrapes throughout the skin, consistent with history of skin picking)
Neuro: Awake, Alert, Oriented and Nonfocal/Grossly Intact
Psych: Calm
[2024-04-13] MEDS: DILAUDID 0.5 MG IV ×3 (11:14→23:59)
[2024-04-13 11:46] LABS: Glucose - Point of Care 188 mg/dl (70-99)
[2024-04-13] MEDS: COREG 25 MG PO ×2 (12:41→20:19)
[2024-04-13] MEDS: NEURONTIN 300 MG PO (12:41)
[2024-04-13] MEDS: LASIX 40 MG PO ×2 (12:41→15:53)
[2024-04-13] MEDS: NORVASC 10 MG PO (12:42)
--- NOTE | 2024-04-13 12:45 | PTCARENOTE ---
x1 0.5 dilaudid order obtained this AM. pt tolerated HD, calling transport to [facility] for thoracentesis. pt states he will be asking for pain medication again when he returns, expressed frustration dilaudid order was x1, and not PRN
[2024-04-13 13:02] VITALS: BP 173/84; BP_SYST 97
[2024-04-13 13:56] VITALS: BP 145/76
[2024-04-13 14:32] LABS: Body Fluid pH 7.54
--- NOTE | 2024-04-13 14:34 | CM ---
Met with pt at bedside - admitted for abd pain, missed HD
Lives with his parents in a 2 story home.
Receiving HD - MWF at [facility]
Unemployed, ambulates without assist
DME - none
Denies past SNF/HH
Has ride at d/c
PCP - Cas[facility] Arroyo
Pharm - [facility]
CM will follow for d/c needs
Plan - anticipate home with [facility] HD
[2024-04-13 15:00] VITALS: BP 143/86
[2024-04-13 15:04] LABS: Body Fluid Amylase < 30 U/L; Body Fluid Glucose 149 mg/dl; Body Fluid LDH 140 U/L; Body Fluid Protein 2.9 g/dl; Body Fluid Triglycerides 43 mg/dl
[2024-04-13 16:10] LABS: Body Fluid Mononuclear 94.7 %; Body Fluid Polymorphonuclear 5.3 %; Body Fluid WBC 172 /CUMM
[2024-04-13 16:33] LABS: Body Fluid Second Tech EYM
[2024-04-13 16:37] VITALS: BP 143/86
[2024-04-13 16:50] LABS: Glucose - Point of Care 288 mg/dl (70-99)
[2024-04-13] MEDS: PT'S OWN INSULIN PUMP - NovoLOG 4 UNIT SC (18:43)
[2024-04-13] MEDS: TRILEPTAL 150 MG PO (21:32)
[2024-04-13] MEDS: ROBITUSSIN DM 5 ML PO (21:33)
[2024-04-13 21:37] LABS: Glucose - Point of Care 244 mg/dl (70-99)
[2024-04-13 23:23] VITALS: BP 129/89
[2024-04-14 03:11] VITALS: BMI 21.0
[2024-04-14 06:18] LABS: % Basophils 0.6 % (0-2); % Eosinophils 3.4 % (0-6); % Immature Granulocytes 0.6 % (0-0.5); % Lymphocytes 22.1 % (20.5-51.1); % Monocytes 8.8 % (1.7-9.3); % Neutrophils 64.5 % (42.2-75.2); Absolute Eosinophils 0.2 10^3/uL (0-0.7); Absolute Monocytes 0.4 10^3/uL (0.1-0.6); Hematocrit 30.6 % (39.0-52.0); Hemoglobin 9.9 g/dL (13.0-18.0); Mean Corp Hgb Conc. 32.4 g/dL (33.0-37.0); Mean Corpuscular Hgb 29.5 pg (27.0-31.0); Mean Corpuscular Volume 91.1 fL (80.0-94.0); Mean Platelet Volume 9.6 fL (7.4-10.4); Nucleated Red Blood Cells % 0 % (-); Platelet Count 265 10^3/uL (130-400); Red Blood Cell Count 3.36 10^6/uL (4.70-6.10); Red Cell Dist. Width 18.4 % (11.5-14.5); White Blood Cell Count 4.7 10^3/uL (4.8-10.8)
[2024-04-14 06:58] LABS: Blood Urea Nitrogen 31 mg/dl (9-20); Calcium 8.4 mg/dl (8.4-10.2); Carbon Dioxide 28 mmol/L (22-30); Chloride 92 mmol/L (98-107); Estimated Creatinine Clearance 16 ml/min; Glucose 214 mg/dl (70-99); Sodium 130 mmol/L (135-145)
[2024-04-14 07:00] VITALS: BP 129/86
[2024-04-14] MEDS: LASIX 40 MG PO ×2 (08:13→16:27)
[2024-04-14] MEDS: DILAUDID 0.5 MG IV ×2 (08:14→16:31)
[2024-04-14] MEDS: NEURONTIN 300 MG PO (08:14)
[2024-04-14] MEDS: NORVASC 10 MG PO (08:15)
[2024-04-14] MEDS: COREG 25 MG PO ×2 (08:15→20:17)
[2024-04-14 08:28] LABS: Glucose - Point of Care 262 mg/dl (70-99)
--- NOTE | 2024-04-14 09:39 | W.PN.HOSP.TC ---
Addendum entered and electronically signed by Erasto Camacho MD 04/14/24 16:39:
Impression:
Presentation with acute right upper quadrant abdominal pain.
Missed hemodialysis.
Recurrent right pleural effusion likely causing pain.
Conditions prior to admission:
Recent hospitalization with hemorrhagic pericardial effusion and pretamponade requiring pericardiocentesis.
Acute hypoxic respiratory failure secondary to right pleural effusion status post 1.5 L thoracentesis on 04/04 exudative with negative cultures.
Prior history of pulmonary embolism recent follow-up studies including CT chest and lower extremity Doppler negative.
End-stage renal disease on hemodialysis Friday per
Paroxysmal atrial fibrillation. Not on anticoagulation due to poor compliance as well as recent hemorrhagic pericardial effusion.
Persistent splenic infarct
Type 1 diabetes on insulin pump at home
Essential hypertension.
Alcohol disorder/polysubstance abuse.
Recent hospitalization from with PEA arrest in the settings of DKA
Plan:
Persistent right upper quadrant abdominal pain, not positional, not related to inspiration
Repeated abdominal imaging including CT scan and abdominal ultrasound with no acute intra-abdominal pathology
Noted reaccumulating at least moderate right pleural effusion.
Most likely pain related to reaccumulating right pleural effusion/healing rib fractures.
Status post thoracentesis on 04/13 1450 mL fluid transudate
Monitor for right upper quadrant pain.
Initiated on IV hydromorphone with plan to wean after thoracentesis.
Pulmonary edema on follow-up chest x-ray 04/14.
Most likely consistent with volume overload missed dialysis
Continue HD as per nephrology scheduled
Most recent echocardiogram with preserved biventricular function and minimal pericardial effusion (status post pericardiocentesis last admission)
End-stage renal disease on hemodialysis poor compliance
Missed HD likely causing recurrent third spacing including recurrent pleural effusion
Extensive conversation with patient
AV fistula ulceration.
Vascular surgery input appreciated. Send plan is for AV fistula revision tentatively on 04/15.
Subacute splenic infarct
Traced on images over last admission.
Recent ID workup negative
Repeat blood cultures pending
Echocardiogram with no evidence for vegetation
Patient will need outpatient hematology follow-up for further workup including possibility of hypercoagulable state
Recent pericardial effusion
Stable hemodynamic status.
Monitor closely
A-fib
Essential hypertension
Continue preadmission regimen including Coreg
Not on anticoagulation due to recent hemorrhagic pericarditis
IDDM.
Insulin pump out of insulin supply.
Transition to subcutaneous regimen with Lantus/AC NovoLog
Diabetic nurse practitioner consultation.
Original Note:
Today's Communication/Plan
-
- Hemodialysis today.
- Repeat CXR
- OR tomorrow for ulceration overlaying the AV fistula
Assessment / Plan
Assessment / Plan
Acute on chronic recurrent pleural effusion/moderate right pleural effusion
- History of thoracentesis 04/04/2024
- Possibly causing the RUQ pain.
- Thoracentesis today.
Acute on chronic abdominal pain
Gastroparesis
- Continue metoclopramide
- No Narcotics
- Received metoclopramide 10 mg IV; now on p.o. 10 mg 3 times daily
- Hydromorphone 0.5 mg IV once in the morning; will follow
End-stage renal disease
- Dialysis Friday missed 04-12-24
- Left upper extremity AV fistula
- Nephrology following.
- Hemodialysis today; tolerated it well.
- Monitor BMP.
Ulceration overlying AV fistula outflow vein
- OR tomorrow, per vascular surgery.
Sub-acute splenic infarct
- Noted on CT AP.
- No indication to intervene at this point.
- Monitor symptoms.
Alcohol use disorder/polysubstance abuse
- Patient states that he quit in January 2024
- Monitor for alcohol withdrawal and continue with protocol.
- Used to drink several glasses of whiskey per night stopped January 2024
Chronic skin picking
- He has multiple scrapes to his lower extremities with open area to right lower extremity, left forearm, over left AV fistula, right elbow and posterior neck
- Will monitor for any infection, and daily soap and water
Diabetes mellitus type 1
- Accu-Cheks with SSI
- Continue patient's insulin pump
Essential HTN
- With a history of intermittent hypotension
- Continue carvedilol 25 mg p.o. twice daily, amlodipine 10 mg daily
Anemia secondary to chronic disease/ESRD
- Hemoglobin 9.9.
Pericardial effusion with impending cardiac tamponade
- Pericardiocentesis with 385 cc exudative fluid on 03/31.
- Pericardial pressure went from 21 down to 7 mmHg postprocedure.
- Pericardial cultures were negative; pericardial drain removed on 04/02.
- Follow-up echocardiogram on 04/02 with normal left ventricular size and systolic function and minimal pericardial effusion.
History of PEA/Cardiac arrest 03/13/2024
- Status post VDRF and subsequent extubation
Paroxysmal A-fib
- Not on AC secondary to compliance
- Continue carvedilol 25 mg p.o. twice daily
- 2D echo 04/02/2024: EF 55 to 60%, mild LVH,dilated hypocontractile right ventricle, trace pulmonic regurg, small pericardial effusion 0.8 cm.
- Follows at [facility] cardiology
History of PE 2020
- Treated for 6 months with AC therapy
- Currently not on any AC.
Anxiety/depression
- Continue oxcarbazepine and trazodone
Tobacco use disorder
- 1/2 pack/day x 19 years
- Cessation advised
DVT prophylaxis
- Heparin sq.
Code status
- Full.
Anticipated Discharge: 24 - 48 hours
Subjective/Interval History
-
Date of Service: April 14, 2024
Objective Data
-
Labs:
Laboratory Results
04/14/24
05:41
WBC 4.7 L
Hgb 9.9 L
Hct 30.6 L
Plt Count 265
Sodium 130 L
Potassium 4.0
Chloride 92 L
Carbon Dioxide 28
BUN 31 H
Creatinine 5.6 H*
Glucose 214 H
Calcium 8.4
Vital Signs:
Vital Signs
Temp Pulse Resp BP Pulse Ox
99.0 F 87 18 129/86 93
04/14/24 07:00 04/14/24 07:00 04/14/24 07:00 04/14/24 07:00 04/14/24 07:00
I&O
04/13/24 04/14/24 04/15/24
06:59 06:59 06:59
Intake Total 720 / 720 1080 / 1080
Output Total 100 / 100
Balance 720 / 720 980 / 980
Review of Systems
-
History Source: Patient
Constitutional: Reports Fatigue
EENT: Reports No Symptoms Reported
Respiratory: Reports Cough (for the past few days) and Trouble Breathing (mild and intermittent)
Cardiac: Reports No Symptoms
Abdomen/GI: Reports Abdominal Pain (RUQ; 8/10); Denies Nausea, Vomiting, Diarrhea, Constipated, Bloody Stools or Anorexia
Genitourinary: Reports No Symptoms
Musculoskeletal: Reports No Symptoms
Skin: Reports Itching
Neuro: Reports No Symptoms
Endocrine: Reports No Symptoms
Hematologic / Lymphatic: Reports No Symptoms
Allergy / Immunology: Reports No Symptoms
Physical Exam
-
General: No Apparent Distress and Comfortable
HEENT: Normocephalic, Atraumatic, Moist Mucous Membranes and Anicteric
Respiratory: Decreased Breath Sounds (Right lower and middle lobe)
Cardiac: Regular Rhythm and S1/S2; Negative Murmur, Rub or Gallop
GI: Soft, Nontender, Nondistended and Tender (RUQ)
Rectal: Deferred by Provider
Musculoskeletal: No Clubbing, No Cyanosis and No Edema
Skin: Warm, Dry, IV Access / Catheter Site (ulceration overlying the fistula outflow vein) and Other (multiple scrapes throughout the skin, consistent with history of skin picking)
Neuro: Awake, Alert, Oriented and Nonfocal/Grossly Intact
Psych: Calm
[2024-04-14] MEDS: NOVOLOG FLEXPEN 5 UNITS SC ×2 (10:00→11:52)
[2024-04-14 10:04] LABS: Glucose - Point of Care 332 mg/dl (70-99)
[2024-04-14] MEDS: LANTUS 0.0500000000000000028 UNITS SC (10:18)
[2024-04-14] MEDS: PT'S OWN INSULIN PUMP - NovoLOG SC (10:18)
[2024-04-14] MEDS: NOVOLOG FLEXPEN SC (10:20)
[2024-04-14] MEDS: NOVOLOG FLEXPEN-LOW RESISTANCE SC ×2 (10:20→16:33)
--- NOTE | 2024-04-14 10:22 | PTCARENOTE ---
this nurse witnessed pt removed own insulin pump. instructed pt to leave pump off while taking hospital supplied insulin
--- NOTE | 2024-04-14 10:53 | PN.DE.MGMTRT ---
Insulin Management
- -
04/14/2024: Diabetes Management Consult:
Patient admitted 04/12 with abdominal pain, missed dialysis on 04/09. Pt is well known to me from recurrent hospital admissions that have all resulted in leaving AMA. Last hospital admission: 03/31 to 04/07 for DKA, and 03/13/24 - 03/26/24 due to
hypotension, bradycardia and PEA arrest--> left AMA.
Past medical history ETOH use disorder, recurrent DKA, ESRD on HD (MWF), Chronic Abdominal Pain, Gastroparesis, Pulmonary hypertension, Polysubstance abuse
Anxiety, Anemia and T1DM for 18 years.
Patient is awake alert and oriented sitting in bed. Able to discuss diabetes Management plan.
Last A1C 9.7% on 02/13. cr 5.6 eGFR 12.9. Prior to admission and 04/11 and 04/12 was using a Medtronic 770 pump with NovoLog insulin and Guardian sensor. Patient stated this AM he is low on insulin; he does not have supplies for his insulin pump. His
pump has been removed, he states the infusion set was also removed.
Dr. Camacho ordered Lantus and novolog; started, 5 units Lantus daily in AM with novolog 5 units AC.
Will continue current regimen, discussed with nurse.
Diabetes History
- -
Type of Diabetes: 1
Pre-Admission Diabetes Regimen
04/14/24
05:41
Creatinine 5.6 H*
Insulin Pump Settings
IP Diabetes Regimen
04/13/24 04/13/24 04/13/24
11:44 16:48 21:36
Glucose
POC Glucose 188 H 288 H 244 H
04/14/24 04/14/24 04/14/24
05:41 08:27 10:03
Glucose 214 H
POC Glucose 262 H 332 H
Patient Education
[2024-04-14 11:43] LABS: Glucose - Point of Care 335 mg/dl (70-99)
[2024-04-14] MEDS: NOVOLOG FLEXPEN-LOW RESISTANCE 4 UNITS SC ×3 (11:51→11:58)
[2024-04-14] MEDS: ROXICODONE 5 MG PO ×3 (11:51→22:08)
[2024-04-14] MEDS: HEPARIN 500 UNITS IV ×2 (12:55→13:55)
--- NOTE | 2024-04-14 13:34 | W.PN.NEPH.HD ---
Assessment
-
pt seen during HD
vitals stable,
AVF has ulcer with blister-consult vasc
reviewed with pt about imp of compliance
d/w primary
Progress Note - Hemodialysis
-
Date of Service: April 14, 2024
Duration: 45 minutes and 3 hours
Potassium Bath: 2
Calcium Bath: 2.5
Opti-Dialyzer: 160
Ultrafiltration: Other (3kg)
Blood Flow: 400
Dialysate Flow: 600
Heparin: yesx2
EPO: no
--- NOTE | 2024-04-14 14:18 | W.PN.UPDATE ---
Update Note
Progress Note Update
Seen and examined with ADRIANA Amezcua. Full consultation to follow. 34-year-old male type 1 diabetes end-stage renal disease on hemodialysis. Has been on dialysis for 3 years total, the beginning portion of which she was on peritoneal dialysis. He has
had this functioning fistula by Dr. Rowell at [facility]. Notes he has had a couple angioplasties. No other revisions. Asked to evaluate based on ulceration overlying the fistula.
On exam/left upper extremity fistula easily palpable and visualized outflow vein. He is currently receiving hemodialysis, and below the needle in the mid outflow vein there is an ulceration overlying the fistula outflow vein. Subcutaneous fat can
be seen. I cannot visualize the vein itself. No bleeding. No erythema or fluctuance. Just inferior or distal to there there is another area of what appears to be prior ulceration, but that area appears epithelialized over.
Plan/ Ulceration overlying AV fistula outflow vein. Recommend excision of the ulcer with primary closure of the skin attempted. Discussed with him that in the situations, at times cannot successfully just primarily close and would require revision
potentially with interposition graft. Discussed in that setting also the possibility of needing tunneled dialysis catheter. Hopefully not, but I did alert him to the possibility of that. Risks of bleeding/infection discussed. He understands all
wishes to proceed. Plan OR tomorrow. He is receiving hemodialysis today. NPO after midnight.
--- NOTE | 2024-04-14 14:25 | CON.VAS ---
Consultation
Consultation Request
Date/Time Consultation Performed: 04/14/24 1425
Requesting Provider: Erasto Camacho MD
Performing Provider: Sera Amezcua NP-C for Rodríguez Degroot MD
Reason for Consultation: Ulceration over left lower extremity AV fistula
Medical History
-
Chief Complaint: ABD pain accompanied with nausea and vomiting
History of Present Illness:
This is a 34-year-old male significant past medical history of type 1 diabetes, ESRD on HD, gastroparesis, hypertension, anxiety/depression, alcohol abuse, and pulmonary hypertension who reported to ED on 04/12/2024 reporting right upper quadrant
abdominal pain with accompanying nausea/vomiting. During admission it was noted that he had an ulceration over his fistula prompting vascular surgery consultation. He has been on dialysis for 3 years total, the beginning portion of which he was on
peritoneal dialysis. He has had this functioning fistula by Dr. Rowell at [place]. Does endorse a couple angioplasties. No other revisions. Currently patient is receiving hemodialysis via left extremity AV fistula.
Past Medical History
Past Medical History: HTN, IDDM, Renal Failure (ESRD on MWF HD) and Other (Diabetic neuropathy, gastroparesis, pulmonary hypertension, anxiety and depression, history of noncompliance with medications and hemodialysis, dermatillomania, Alcohol use
disorder)
Past Surgical History: Appendectomy and Other (LUE AVF, PD catheter placement and removal )
Social History
Tobacco: Smoker
Alcohol: Other (Alcohol use disorder/polysubstance abuse in the past states quit January 2024)
Personal: Single
Living: With Family
Allergies / Home Medications
Allergy/AdvReac Type Severity Reaction Status Date / Time
shellfish derived Allergy Hives Verified 04/12/24 08:53
�Medication �Instructions �Recorded �Confirmed �Type
amlodipine 10 mg tablet 10 mg PO DAILY Blood pressure 04/22/21 04/12/24 History
metoclopramide HCl 10 mg tablet 10 mg PO TIDPRN PRN nausea 04/07/23 04/12/24 History
(Reglan)
oxcarbazepine 150 mg tablet 150 mg PO HS Neurological Condition 07/24/23 04/12/24 History
trazodone 50 mg tablet 25 mg PO HSPRN PRN sleep 01/05/24 04/12/24 History
Patient Own Insulin Pump 0 units SC .VIA PUMP diabetes 02/13/24 04/12/24 History
diphenhydramine HCl 25 mg capsule 25 mg PO Q4HPRN PRN itchiness #30 04/06/24 04/12/24 Rx
caps
carvedilol 25 mg tablet 25 mg PO BID Blood Pressure 04/12/24 04/12/24 History
furosemide 40 mg tablet 40 mg PO BID Fluid 04/12/24 04/12/24 History
Retention/Swelling
Review of Systems
-
History Source: Patient
Constitutional: Reports No Symptoms
EENT: Reports No Symptoms
Respiratory: Reports No Symptoms
Cardiac: Reports No Symptoms
Abdomen/GI: Reports Abdominal Pain (Upon presentation), Nausea (Upon presentation) and Vomiting (Upon presentation to hospital)
: Reports No Symptoms
Musculoskeletal: Reports No Symptoms
Skin: Reports Other (multiple scrapes to his lower extremities with open area to right lower extremity, left forearm, over left AV fistula, right elbow and posterior neck)
Neurological: Reports No Symptoms
Endocrine: Reports No Symptoms
Physical Exam
Vital Signs
Temp Pulse Resp BP Pulse Ox
99.0 F 87 18 129/86 93
04/14/24 07:00 04/14/24 07:00 04/14/24 07:00 04/14/24 07:00 04/14/24 08:15
Lab Results
04/14/24 05:41
04/14/24 05:41
Physical Exam
Musculoskeletal: Other (left upper extremity fistula easily palpable and visualized outflow vein, currently on HD circuit.)
Skin: Other (Patient currently on HD circuit below the needle in the mid outflow vein there is an ulceration overlying the vein. Subcutaneous fat can be seen. No bleeding. No erythema or fluctuance. Just inferior or distal to there there is
another area of what appears to be prior ulceration. )
Neuro: Awake and Alert
Assessment / Plan
-
Assessment: 34-year-old male admitted for abdominal pain with accompanying nausea/vomiting with noted ulceration over AV fistula
Plan:
Recommend excision of the ulcer with primary closure of the skin attempted. Dr. Degroot discussed surgical recommendation and that, at times cannot successfully just primarily close and he could possibly require revision potentially with interposition
graft. Discussed in that setting also the possibility of needing tunneled dialysis catheter. Risks of bleeding/infection discussed. He understands all wishes to proceed. Plan for OR tomorrow. He is receiving hemodialysis today. NPO after
midnight.
I performed this shared service with the attending. I evaluated the patient [id number] and have entered clinical documentation as shown in the encounter note. I performed the following component(s): history and physical exam. Note that medical
decision making is not final until attested by vascular attending.
[2024-04-14 15:00] VITALS: BP 98/69
[2024-04-14] MEDS: MANNITOL 25% 12.5 GRAMS IV (15:20)
--- NOTE | 2024-04-14 15:39 | CM ---
Case management following for d/c planning
Chart reviewed. Met with pt
HD today
Seen by vascular - for OR tomorrow - ulceration of overlaying AV fistula
CM will follow for d/c needs
Plan - home with family when medically ready
[2024-04-14 16:31] LABS: Glucose - Point of Care 118 mg/dl (70-99)
[2024-04-14] MEDS: NOVOLOG FLEXPEN 2 UNITS SC (16:32)
[2024-04-14 18:31] LABS: Glucose - Point of Care 96 mg/dl (70-99)
[2024-04-14 21:20] LABS: Glucose - Point of Care 237 mg/dl (70-99)
[2024-04-14] MEDS: TRILEPTAL 150 MG PO (21:35)
[2024-04-14] MEDS: DESYREL 25 MG PO (22:08)
[2024-04-14] MEDS: REGLAN 10 MG PO (22:20)
[2024-04-14] MEDS: NOVOLOG FLEXPEN-LOW RESISTANCE 2 UNITS SC (22:33)
[2024-04-14 23:00] VITALS: BP 140/85
[2024-04-14 23:46] VITALS: BP 140/85
[2024-04-15] VITALS (12 sets, daily range): BP systolic 105–124; BP diastolic 71–96; BMI 21.0
[2024-04-15] MEDS: DILAUDID 0.5 MG IV ×3 (00:35→19:39)
[2024-04-15] MEDS: ROXICODONE 5 MG PO ×4 (02:27→22:44)
[2024-04-15 05:33] LABS: Glucose - Point of Care 253 mg/dl (70-99)
[2024-04-15] MEDS: NOVOLOG FLEXPEN-LOW RESISTANCE 3 UNITS SC (05:34)
[2024-04-15] MEDS: NOVOLOG FLEXPEN 5 UNITS SC (05:35)
[2024-04-15 06:09] LABS: % Basophils 0.8 % (0-2); % Eosinophils 5.1 % (0-6); % Immature Granulocytes 0.6 % (0-0.5); % Lymphocytes 24.5 % (20.5-51.1); % Monocytes 7.9 % (1.7-9.3); % Neutrophils 61.1 % (42.2-75.2); Absolute Eosinophils 0.3 10^3/uL (0-0.7); Absolute Lymphocytes 1.2 10^3/uL (1.2-3.4); Absolute Monocytes 0.4 10^3/uL (0.1-0.6); Hematocrit 31.4 % (39.0-52.0); Hemoglobin 9.9 g/dL (13.0-18.0); Mean Corp Hgb Conc. 31.5 g/dL (33.0-37.0); Mean Corpuscular Hgb 29.4 pg (27.0-31.0); Mean Corpuscular Volume 93.2 fL (80.0-94.0); Mean Platelet Volume 9.1 fL (7.4-10.4); Nucleated Red Blood Cells % 0 % (-); Platelet Count 243 10^3/uL (130-400); Red Blood Cell Count 3.37 10^6/uL (4.70-6.10); Red Cell Dist. Width 17.5 % (11.5-14.5); White Blood Cell Count 4.9 10^3/uL (4.8-10.8)
[2024-04-15 06:37] LABS: Blood Urea Nitrogen 20 mg/dl (9-20); Carbon Dioxide 27 mmol/L (22-30); Chloride 90 mmol/L (98-107); Estimated Creatinine Clearance 25 ml/min; Glucose 254 mg/dl (70-99); Potassium 4.1 mmol/L (3.5-5.1); Sodium 129 mmol/L (135-145); eGFR 21.91
--- NOTE | 2024-04-15 07:28 | PN.DE.MGMTRT ---
Insulin Management
- -
04/15/2024: Diabetes Management Follow up:
Patient admitted 04/12 with abdominal pain, missed dialysis on 04/09. Pt is well known to me from recurrent hospital admissions that have all resulted in leaving AMA. Last hospital admission: 03/31 to 04/07 for DKA, and 03/13/24 - 03/26/24 due to
hypotension, bradycardia and PEA arrest--> left AMA.
Past medical history ETOH use disorder, recurrent DKA, ESRD on HD (MWF), Chronic Abdominal Pain, Gastroparesis, Pulmonary hypertension, Polysubstance abuse
Anxiety, Anemia and T1DM for 18 years.
Patient is awake alert and oriented sitting in bed. Able to discuss diabetes Management plan.
Last A1C 9.7% on 02/13. cr 3.6 eGFR 21.91.
Prior to admission and 04/11 and 04/12 was using a [employer] 770 pump with NovoLog insulin and Guardian sensor. Patient stated 04/14 that he is low on insulin; he does not have supplies for his insulin pump. His pump has been removed, he states the
infusion set was also removed.
Received 5 units Lantus daily in AM with novolog 5 units AC yesterday, glucose range 118 to 335.
Diet was ordered low potassium, 2gm sodium, added 1800 calories.
Patient is NPO for procedure today due to ulceration at fistula site.
Patient to receive corrective insulin only until return from OR and resumed meals. Will then continue current regimen, discussed with nurse.
Diabetes History
- -
Type of Diabetes: 1
Pre-Admission Diabetes Regimen
04/15/24
05:49
Creatinine 3.6 H
Insulin Pump Settings
IP Diabetes Regimen
04/14/24 04/14/24 04/14/24
08:27 10:03 11:42
Glucose
POC Glucose 262 H 332 H 335 H
04/14/24 04/14/24 04/14/24
16:30 18:30 21:19
Glucose
POC Glucose 118 H 96 237 H
04/15/24 04/15/24
05:32 05:49
Glucose 254 H
POC Glucose 253 H
Meal type: Lunch
Meal type: Breakfast
Amount consumed: 100%
Amount consumed: 100%
Patient Education
[2024-04-15 08:49] LABS: Glycohemoglobin (HgbA1c) 9.1 % (4.0-5.6)
[2024-04-15] MEDS: NEURONTIN 300 MG PO (09:17)
[2024-04-15] MEDS: LASIX 40 MG PO ×2 (09:18→19:51)
[2024-04-15] MEDS: NORVASC 10 MG PO (09:18)
[2024-04-15] MEDS: COREG 25 MG PO ×2 (09:19→22:20)
[2024-04-15 09:36] LABS: Glucose - Point of Care 64 mg/dl (70-99)
[2024-04-15] MEDS: DEXTROSE 50% SYRINGE 12.5 GRAMS IV (09:42)
[2024-04-15 10:00] LABS: Glucose - Point of Care 114 mg/dl (70-99)
[2024-04-15] MEDS: LANTUS SC (10:39)
--- NOTE | 2024-04-15 11:55 | W.PN.HOSP.TC ---
Addendum entered and electronically signed by Erasto Camacho MD 04/15/24 13:15:
Impression:
Presentation with acute right upper quadrant abdominal pain.
Missed hemodialysis.
Recurrent right pleural effusion likely causing pain.
Conditions prior to admission:
Recent hospitalization with hemorrhagic pericardial effusion and pretamponade requiring pericardiocentesis.
Acute hypoxic respiratory failure secondary to right pleural effusion status post 1.5 L thoracentesis on 04/04 exudative with negative cultures.
Prior history of pulmonary embolism recent follow-up studies including CT chest and lower extremity Doppler negative.
End-stage renal disease on hemodialysis Friday per
Paroxysmal atrial fibrillation. Not on anticoagulation due to poor compliance as well as recent hemorrhagic pericardial effusion.
Persistent splenic infarct
Type 1 diabetes on insulin pump at home
Essential hypertension.
Alcohol disorder/polysubstance abuse.
Recent hospitalization from with PEA arrest in the settings of DKA
Plan:
Persistent right upper quadrant abdominal pain, not positional, not related to inspiration
Repeated abdominal imaging including CT scan and abdominal ultrasound with no acute intra-abdominal pathology
Noted reaccumulating at least moderate right pleural effusion.
Most likely pain related to reaccumulating right pleural effusion/healing rib fractures.
Status post thoracentesis on 04/13 1450 mL fluid transudate
Monitor for right upper quadrant pain.
Initiated on IV hydromorphone with plan to wean after thoracentesis.
Pulmonary edema on follow-up chest x-ray 04/14.
Most likely consistent with volume overload missed dialysis
Continue HD as per nephrology scheduled
Most recent echocardiogram with preserved biventricular function and minimal pericardial effusion (status post pericardiocentesis last admission)
End-stage renal disease on hemodialysis poor compliance
Missed HD likely causing recurrent third spacing including recurrent pleural effusion
Extensive conversation with patient
AV fistula ulceration.
Vascular surgery input appreciated. Plan is for AV fistula revision tentatively on 04/15.
Subacute splenic infarct
Traced on images over last admission.
Recent ID workup negative
Repeat blood cultures pending
Echocardiogram with no evidence for vegetation
Patient will need outpatient hematology follow-up for further workup including possibility of hypercoagulable state
Recent pericardial effusion
Stable hemodynamic status.
Monitor closely
A-fib
Essential hypertension
Continue preadmission regimen including Coreg
Not on anticoagulation due to recent hemorrhagic pericarditis
IDDM.
Recent hemoglobin A1c 9.7
Insulin pump out of insulin supply.
Transitioned to subcutaneous regimen with Lantus/AC NovoLog
Diabetic nurse practitioner consultation.
Original Note:
Today's Communication/Plan
-
- OR today for ulceration overlaying the AV fistula.
- Hydromorphone for pain management
Assessment / Plan
Assessment / Plan
Acute on chronic recurrent pleural effusion/moderate right pleural effusion
- History of thoracentesis 04/04/2024
- Possibly causing the RUQ pain.
- Thoracentesis yielded 1450 ml transudate.
Acute on chronic abdominal pain
Gastroparesis
- Continue metoclopramide
- No Narcotics
- Received metoclopramide 10 mg IV; now on p.o. 10 mg 3 times daily
- Hydromorphone 0.5 mg IV for pain management
End-stage renal disease
- Dialysis Friday missed 04-12-24
- Left upper extremity AV fistula
- Nephrology following.
- Hemodialysis yesterday; tolerated it well.
- Monitor BMP.
Ulceration overlying AV fistula outflow vein
- Likely from his known skin-picking disorder
- OR tomorrow, per vascular surgery.
Sub-acute splenic infarct
- Noted on CT AP.
- No indication to intervene at this point.
- Monitor symptoms.
Alcohol use disorder/polysubstance abuse
- Patient states that he quit in January 2024
- Monitor for alcohol withdrawal and continue with protocol.
- Used to drink several glasses of whiskey per night stopped January 2024
Skin-picking disorder
- He has multiple scrapes to his lower extremities with open area to right lower extremity, left forearm, over left AV fistula, right elbow and posterior neck
- Will monitor for any infection, and daily soap and water
Diabetes mellitus type 1
- Accu-Cheks with SSI
- Continue patient's insulin pump
Essential HTN
- With a history of intermittent hypotension
- Continue carvedilol 25 mg p.o. twice daily, amlodipine 10 mg daily
Anemia secondary to chronic disease/ESRD
- Hemoglobin 9.9.
Pericardial effusion with impending cardiac tamponade
- Pericardiocentesis with 385 cc exudative fluid on 03/31.
- Pericardial pressure went from 21 down to 7 mmHg postprocedure.
- Pericardial cultures were negative; pericardial drain removed on 04/02.
- Follow-up echocardiogram on 04/02 with normal left ventricular size and systolic function and minimal pericardial effusion.
History of PEA/Cardiac arrest 03/13/2024
- Status post VDRF and subsequent extubation
Paroxysmal A-fib
- Not on AC secondary to compliance
- Continue carvedilol 25 mg p.o. twice daily
- 2D echo 04/02/2024: EF 55 to 60%, mild LVH,dilated hypocontractile right ventricle, trace pulmonic regurg, small pericardial effusion 0.8 cm.
- Follows at [facility] cardiology
History of PE 2020
- Treated for 6 months with AC therapy
- Currently not on any AC.
Anxiety/depression
- Continue oxcarbazepine and trazodone
Tobacco use disorder
- 1/2 pack/day x 19 years
- Cessation advised
DVT prophylaxis
- Heparin sq.
Code status
- Full.
Anticipated Discharge: 24 - 48 hours
Subjective/Interval History
-
Date of Service: April 15, 2024
Objective Data
-
Labs:
Laboratory Results
04/15/24
05:49
WBC 4.9
Hgb 9.9 L
Hct 31.4 L
Plt Count 243
Sodium 129 L
Potassium 4.1
Chloride 90 L
Carbon Dioxide 27
BUN 20
Creatinine 3.6 H
Glucose 254 H
Calcium 9.0
Vital Signs:
Vital Signs
Temp Pulse Resp BP Pulse Ox
97.8 F 71 18 124/75 95
04/15/24 07:00 04/15/24 07:00 04/15/24 07:00 04/15/24 07:00 04/15/24 07:56
I&O
04/14/24 04/15/24 04/16/24
06:59 06:59 06:59
Intake Total 1080 / 1080 840 / 840
Output Total 100 / 100
Balance 980 / 980 840 / 840
Review of Systems
-
History Source: Patient
Constitutional: Reports Fatigue
EENT: Reports No Symptoms Reported
Respiratory: Reports Cough (for the past few days) and Trouble Breathing (mild and intermittent)
Cardiac: Reports No Symptoms
Abdomen/GI: Reports Abdominal Pain (RUQ; 6/10); Denies Nausea, Vomiting, Diarrhea, Constipated, Bloody Stools or Anorexia
Genitourinary: Reports No Symptoms
Musculoskeletal: Reports No Symptoms
Skin: Reports Itching
Neuro: Reports No Symptoms
Endocrine: Reports No Symptoms
Hematologic / Lymphatic: Reports No Symptoms
Allergy / Immunology: Reports No Symptoms
Physical Exam
-
General: No Apparent Distress and Comfortable
HEENT: Normocephalic, Atraumatic, Moist Mucous Membranes and Anicteric
Respiratory: Decreased Breath Sounds (Right lower and middle lobe)
Cardiac: Regular Rhythm and S1/S2; Negative Murmur, Rub or Gallop
GI: Soft, Nontender, Nondistended and Tender (RUQ)
Rectal: Deferred by Provider
Musculoskeletal: No Clubbing, No Cyanosis and No Edema
Skin: Warm, Dry, IV Access / Catheter Site (ulceration overlying the fistula outflow vein) and Other (multiple scrapes throughout the skin, consistent with history of skin picking)
Neuro: Awake, Alert, Oriented and Nonfocal/Grossly Intact
Psych: Calm
[2024-04-15] MEDS: BACTROBAN 2% OINTMENT 1 APPLIC NASAL (12:01)
[2024-04-15] MEDS: PERIDEX 0.12% ORAL RINSE 15 ML PO (12:01)
[2024-04-15 12:03] LABS: Glucose - Point of Care 91 mg/dl (70-99)
[2024-04-15] MEDS: NOVOLOG FLEXPEN SC ×2 (12:03→18:13)
[2024-04-15] MEDS: REGLAN 10 MG PO (12:43)
[2024-04-15] MEDS: NOVOLOG FLEXPEN-LOW RESISTANCE SC ×2 (12:45→18:13)
--- NOTE | 2024-04-15 12:49 | CM ---
Case management following for d/c planning
For OR today for AV shunt revision
Pain management
HD - MWF
CM will follow for d/c needs
Plan - anticipate home no needs
--- NOTE | 2024-04-15 13:52 | W.PN.NEPH.PH ---
Today's Communication / Plan
-
HD tomorrow
Assessment/Plan
-
Impression:
ESRD (MWF) last HD last friday
Status post PEA/Asystole 03/13/24
PAF : briefly after code on 03/13/24
Chronic noncompliance with dialysis
ESRD MWF ([facility]),
left UE AVF
DKA hx/metabolic acidosis
Hyperkalemia
Hyponatremia
Chronic Abdominal Pain / Gastroparesis
Pulmonary hypertension
Polysubstance abuse
Anxiety
Anemia
Right pleural effusion--s/p R throa for pleural effusion with 1.8L transudate 02/17/24
History of pericardial effusion requiring pericardial drain
Plan:
plan OR today for ulcer on AVF -appt vasc eval
Dialysis tomorrow
Fluid restriction and appropriate dietary restrictions
s/p right thoracentesis 1.45lit on 04/13
hold pre hD meds to aid in UF, CXR seem congested on 04/14 and he has cough
PETE for anemia
hyponatremia from dilutional in ESRD status
Patient is notoriously noncompliant and we are unable to effectively properly dialyze the patient and his fluid gains
-
-
Date of Service: April 15, 2024
CC / HPI / ROS
-
Chief Complaint:
ESRD
History of Present Illness:
na low 129
wt no chnage
CXR On 04/14 shows effusion improved and mild CHF
Review of Systems:
no cp or sob at rest
c/o moist cough but no sputum
Labs
-
Labs:
WBC 4.9 10^3/uL (4.8-10.8) 04/15/24 05:49
RBC 3.37 10^6/uL (4.70-6.10) L 04/15/24 05:49
Hgb 9.9 g/dL (13.0-18.0) L 04/15/24 05:49
Hct 31.4 % (39.0-52.0) L 04/15/24 05:49
Plt Count 243 10^3/uL (130-400) 04/15/24 05:49
Sodium 129 mmol/L (135-145) L 04/15/24 05:49
Potassium 4.1 mmol/L (3.5-5.1) 04/15/24 05:49
Chloride 90 mmol/L (98-107) L 04/15/24 05:49
Carbon Dioxide 27 mmol/L (22-30) 04/15/24 05:49
BUN 20 mg/dl (9-20) 04/15/24 05:49
Creatinine 3.6 mg/dL (0.7-1.3) H 04/15/24 05:49
eGFR 21.91 04/15/24 05:49
Glucose 254 mg/dl (70-99) H 04/15/24 05:49
Calcium 9.0 mg/dl (8.4-10.2) 04/15/24 05:49
Albumin 3.4 g/dl (3.5-5.0) L 04/12/24 10:54
Physical Exam
-
Vital Signs:
Vital Signs
Temp Pulse Resp BP Pulse Ox
97.8 F 71 18 124/75 95
04/15/24 07:00 04/15/24 07:00 04/15/24 07:00 04/15/24 07:00 04/15/24 07:56
Cardiovascular:: Regular rate and rhythm
Respiratory:: Bilateral: Coarse
Lung Excursion:: Normal
Abdomen:: Nontender and Soft
Extremity Edema:: +1: Bilateral:
Randhawa Catheter: No
[2024-04-15 13:55] LABS: Glucose - Point of Care 107 mg/dl (70-99)
--- NOTE | 2024-04-15 15:22 | PTCARENOTE ---
Pt arrived to recovery room awake, alert, and oriented x3. Pt to have a revision of left upper arm fistula. Pt arrived with a 22 jelco in right forearm which flushes without difficulty. Dr Bennett, anesthesiologist, made aware and states ok to use
22J and will place another IV after general anesthesia given if needed. Will continue to monitor.
--- NOTE | 2024-04-15 15:37 | W.SUR.PREOP ---
Pre-Operative Surgical Note
-
I have examined this patient prior to the performance of the scheduled procedure.
The patient's condition is unchanged from the time of the current History and
Physical and the patient is able to undergo the scheduled procedure.
[2024-04-15 16:08] LABS: Glucose - Point of Care 125 mg/dl (70-99)
--- NOTE | 2024-04-15 17:35 | W.SUR.POST ---
Surgical Immediate Post Op
Note
Pre Op Diagnosis: ESRD
Post Op Diagnosis: ESRD
Procedure Performed: Left upper extremity excision of ulceration skin over AV fistula
Primary Surgeon: Rodríguez Degroot MD
Riveter Portable Machine: OSCAR Adkins
Anesthesia: Block
Estimated Blood Loss: 10 ml
Fluids: See anesthesia flowsheet
Drains/Shunts: N/A
Specimens/Cultures: Skin ulceration
Doppler/Duplex/Angio (Y/N): No
Complications: None
Operative Findings: Positive thrill postoperative
[2024-04-15 17:44] LABS: Glucose - Point of Care 125 mg/dl (70-99)
--- NOTE | 2024-04-15 19:00 | PTCARENOTE ---
Pt arrived to floor from PACU during change of shift report. PCT assisted pt into bed.
[2024-04-15 22:19] LABS: Glucose - Point of Care 326 mg/dl (70-99)
[2024-04-15] MEDS: NOVOLOG FLEXPEN-LOW RESISTANCE 4 UNITS SC (22:19)
[2024-04-15] MEDS: TRILEPTAL 150 MG PO (22:37)
[2024-04-16 02:57] LABS: Glucose - Point of Care 310 mg/dl (70-99)
[2024-04-16 03:21] VITALS: BP 114/75
[2024-04-16] MEDS: DILAUDID 0.5 MG IV ×2 (03:41→11:45)
[2024-04-16] MEDS: FLUSH (NSS) 2 FLUSH IV (03:42)
[2024-04-16] MEDS: NOVOLOG FLEXPEN 10 UNITS SC (04:20)
--- NOTE | 2024-04-16 04:22 | PTCARENOTE ---
Glucose checked, knpprm=[id number]. Pt requested insulin. [employer] made aware, new order provided, see MAR. Will recheck glucose in 2 hours.
[2024-04-16] MEDS: ROXICODONE 5 MG PO ×2 (05:48→13:03)
[2024-04-16 06:00] VITALS: BMI 21.3
[2024-04-16 07:00] VITALS: BP 111/68
--- NOTE | 2024-04-16 07:05 | PN.DE.MGMTRT ---
Insulin Management
- -
04/16/2024: Diabetes Management Follow up:
Patient admitted 04/12 with abdominal pain, missed dialysis on 04/09. Pt is well known to me from recurrent hospital admissions that have all resulted in leaving AMA. Last hospital admission: 03/31 to 04/07 for DKA, and 03/13/24 - 03/26/24 due to
hypotension, bradycardia and PEA arrest--> left AMA.
Past medical history ETOH use disorder, recurrent DKA, ESRD on HD (MWF), Chronic Abdominal Pain, Gastroparesis, Pulmonary hypertension, Polysubstance abuse
Anxiety, Anemia and T1DM for 18 years.
Last A1C 9.7% on 02/13. cr 3.6 eGFR 21.91.
Prior to admission and 04/11 and 04/12 was using a [employer] 770 pump with NovoLog insulin and Guardian sensor. Patient stated 04/14 that he is low on insulin; he does not have supplies for his insulin pump. His pump has been removed, he states the
infusion set was also removed.
Patient has been receiving 5 units Lantus daily in AM with novolog 5 units AC. 04/15, patient was NPO for procedure, did not receive AM lantus. Glucose up to 310 at 2AM. At 411AM 10 units novolog ordered.
Will resume regimen of 5 units lantus in AM with 5 units novolog AC and low corrective insulin.
Diet remains low potassium, 2gm sodium, 1800 calories.
Diabetes History
- -
Type of Diabetes: 1
Pre-Admission Diabetes Regimen
Lab Results
Hemoglobin A1c 9.1 % (4.0-5.6) H 04/15/24 05:49
Insulin Pump Settings
IP Diabetes Regimen
04/15/24 04/15/24 04/15/24
09:35 09:59 11:59
POC Glucose 64 L 114 H 91
04/15/24 04/15/24 04/15/24
13:53 15:55 17:41
POC Glucose 107 H 125 H 125 H
04/15/24 04/16/24
22:18 02:55
POC Glucose 326 H 310 H
Patient Education
[2024-04-16 07:41] LABS: Glucose - Point of Care 104 mg/dl (70-99)
[2024-04-16] MEDS: LANTUS 0.0500000000000000028 UNITS SC (08:06)
[2024-04-16] MEDS: NOVOLOG FLEXPEN 5 UNITS SC (08:07)
[2024-04-16] MEDS: NOVOLOG FLEXPEN-LOW RESISTANCE SC ×2 (08:07→12:12)
[2024-04-16] MEDS: COREG PO (08:08)
[2024-04-16] MEDS: LASIX PO (08:09)
[2024-04-16] MEDS: NORVASC PO (08:10)
[2024-04-16 08:38] LABS: Hematocrit 30.2 % (39.0-52.0); Hemoglobin 9.6 g/dL (13.0-18.0); Mean Corp Hgb Conc. 31.8 g/dL (33.0-37.0); Mean Corpuscular Hgb 29.5 pg (27.0-31.0); Mean Corpuscular Volume 92.9 fL (80.0-94.0); Mean Platelet Volume 9.4 fL (7.4-10.4); Platelet Count 253 10^3/uL (130-400); Red Blood Cell Count 3.25 10^6/uL (4.70-6.10); Red Cell Dist. Width 17.3 % (11.5-14.5); White Blood Cell Count 6.2 10^3/uL (4.8-10.8)
--- NOTE | 2024-04-16 08:50 | W.PN.VS ---
Today's Communication / Plan
-
Seen and assessed with Dr. Randhawa
Assessment/Plan
-
POD 1 Left upper extremity excision of ulceration skin over AV fistula
Plan:
-HD, avoid sutured area
-I will return to remove dressing
Subjective Data
-
Date of Service: April 16, 2024
Patient seen at bedside this a.m. with Dr. Randhawa. Patient currently on dialysis without issue. patient offers no complaints at this time. No events overnight
Objective Data
-
Vital Signs
Temp Pulse Resp BP Pulse Ox
98.4 F 80 18 114/75 97
04/16/24 03:21 04/16/24 03:21 04/16/24 03:21 04/16/24 03:21 04/16/24 03:21
Intake and Output
04/15/24 04/16/24 04/17/24
06:59 06:59 06:59
Intake Total 840 / 840 225 / 225
Balance 840 / 840 225 / 225
Intake:
Oral fluids 840 / 840 200 / 200
IV fluids (Total) 25 / 25
NSS 25 / 25
Calcium 9.0 mg/dl (8.4-10.2) 04/15/24 05:49
Total Bilirubin 1.0 mg/dl (0.2-1.3) 04/12/24 10:54
AST 19 U/L (17-59) 04/12/24 10:54
ALT < 10 U/L (0-50) 04/12/24 10:54
Alkaline Phosphatase 102 U/L (38-126) 04/12/24 10:54
Total Protein 5.7 g/dl (6.3-8.2) L 04/13/24 05:53
Albumin 3.4 g/dl (3.5-5.0) L 04/12/24 10:54
Physical Exam
-
AAOx3
No tachypnea
No tachycardia on room air
Abdomen soft
Left upper extremity surgical site clean dry, intact, no drainage noted
Fistula with palpable thrill-marked area for access
Hand warm
[2024-04-16] MEDS: RETACRIT 6000 UNITS IV (09:10)
[2024-04-16] MEDS: HEPARIN 500 UNITS IV (09:10)
[2024-04-16] MEDS: MANNITOL 25% 12.5 GRAMS IV (09:11)
--- NOTE | 2024-04-16 09:22 | W.PN.NEPH.HD ---
Assessment
-
Patient seen on dialysis
Systolic blood pressure 104 at current UF which was reduced due to hypotension
We will provide midodrine with next dialysis
He examines volume overloaded however more aggressive UF has proved difficult to obtain
Progress Note - Hemodialysis
-
Date of Service: April 16, 2024
Duration: 45 minutes and 3 hours
Potassium Bath: 3
Calcium Bath: 2.5
Opti-Dialyzer: 160
Ultrafiltration: Other (1kg as blood pressure dropped)
Blood Flow: 400
Dialysate Flow: 600
Heparin: 500 x 2
EPO: 6000
[2024-04-16 10:13] LABS: Blood Urea Nitrogen 31 mg/dl (9-20); Calcium 8.8 mg/dl (8.4-10.2); Carbon Dioxide 27 mmol/L (22-30); Chloride 91 mmol/L (98-107); Estimated Creatinine Clearance 18 ml/min; Glucose 75 mg/dl (70-99); Potassium 4.3 mmol/L (3.5-5.1); Sodium 131 mmol/L (135-145); eGFR 14.77
[2024-04-16 10:18] LABS: TSH Reflex To Free T4 6.47 uIU/ml (0.47-4.68)
--- NOTE | 2024-04-16 10:45 | W.PN.HOSP.TC ---
Addendum entered and electronically signed by Erasto Camacho MD 04/16/24 15:50:
Patient seen and examined
Discussed with resident
Impression:
Presentation with acute right upper quadrant abdominal pain.
Missed hemodialysis.
Recurrent right pleural effusion likely causing pain.
Conditions prior to admission:
Recent hospitalization with hemorrhagic pericardial effusion and pretamponade requiring pericardiocentesis.
Acute hypoxic respiratory failure secondary to right pleural effusion status post 1.5 L thoracentesis on 04/04 exudative with negative cultures.
Prior history of pulmonary embolism recent follow-up studies including CT chest and lower extremity Doppler negative.
End-stage renal disease on hemodialysis Friday per
Paroxysmal atrial fibrillation. Not on anticoagulation due to poor compliance as well as recent hemorrhagic pericardial effusion.
Persistent splenic infarct
Type 1 diabetes on insulin pump at home
Essential hypertension.
Alcohol disorder/polysubstance abuse.
Recent hospitalization from with PEA arrest in the settings of DKA
Plan:
Persistent right upper quadrant abdominal pain, not positional, not related to inspiration
Repeated abdominal imaging including CT scan and abdominal ultrasound with no acute intra-abdominal pathology
Noted reaccumulating at least moderate right pleural effusion.
Most likely pain related to reaccumulating right pleural effusion/healing rib fractures.
Status post thoracentesis on 04/13 1450 mL fluid transudate
Monitor for right upper quadrant pain.
Pulmonary edema on follow-up chest x-ray 04/14.
Most likely consistent with volume overload missed dialysis
Continue HD as per nephrology scheduled
Most recent echocardiogram with preserved biventricular function and minimal pericardial effusion (status post pericardiocentesis last admission)
End-stage renal disease on hemodialysis poor compliance
Missed HD likely causing recurrent third spacing including recurrent pleural effusion
Extensive conversation with patient
AV fistula ulceration.
Status post revision on 04/15.
Fistula has been used with HD today on 04/16.
Subacute splenic infarct
Traced on images over last admission.
Recent ID workup negative
Repeat blood cultures pending
Echocardiogram with no evidence for vegetation
Patient will need outpatient hematology follow-up for further workup including possibility of hypercoagulable state
Recent pericardial effusion
Stable hemodynamic status.
Monitor closely
A-fib
Essential hypertension
Continue preadmission regimen including Coreg
Not on anticoagulation due to recent hemorrhagic pericarditis
IDDM.
Recent hemoglobin A1c 9.7
Insulin pump out of insulin supply.
Transitioned to subcutaneous regimen with Lantus/AC NovoLog
Diabetic nurse practitioner consultation.
Original Note:
Today's Communication/Plan
-
- Hemodialysis today; is set for his next dialysis outpatient with [facility] on Friday.
- Switch back to insulin pump prior to discharge.
- Anticipated discharge today.
Assessment / Plan
Assessment / Plan
Acute on chronic recurrent pleural effusion/moderate right pleural effusion
- History of thoracentesis 04/04/2024
- Possibly causing the RUQ pain.
- Thoracentesis yielded 1450 ml transudate.
- Sounds clearer today; seen during hemodialysis.
Acute on chronic abdominal pain
Gastroparesis
- Continue metoclopramide
- No Narcotics
- Received metoclopramide 10 mg IV; now on p.o. 10 mg 3 times daily
- Hydromorphone 0.5 mg IV for pain management
End-stage renal disease
- Dialysis Friday missed 04-12-24
- Left upper extremity AV fistula
- Nephrology following.
- Hemodialysis today; tolerated it well.
- Monitor BMP.
Ulceration overlying AV fistula outflow vein
- Likely from his known skin-picking disorder
- Excision of ulceration went well on 04-15-24.
Sub-acute splenic infarct
- Noted on CT AP.
- No indication to intervene at this point.
- Monitor symptoms.
Alcohol use disorder/polysubstance abuse
- Patient states that he quit in January 2024
- Monitor for alcohol withdrawal and continue with protocol.
- Used to drink several glasses of whiskey per night stopped January 2024
Skin-picking disorder
- He has multiple scrapes to his lower extremities with open area to right lower extremity, left forearm, over left AV fistula, right elbow and posterior neck
- Will monitor for any infection, and daily soap and water
Type I diabetes mellitus
- Accu-Cheks with SSI
- Was on patient's insulin pump
- Transitioned to subcutaneous regimen with Lantus/AC NovoLo.
- Diabetic nurse practitioner consultation.
- Will switch to insulin pump prior to discharge.
Essential hypertension
- With a history of intermittent hypotension
- Continue carvedilol 25 mg p.o. twice daily, amlodipine 10 mg daily
Anemia secondary to chronic disease/ESRD
- Hemoglobin 9.9.
Pericardial effusion with impending cardiac tamponade
- Pericardiocentesis with 385 cc exudative fluid on 03/31.
- Pericardial pressure went from 21 down to 7 mmHg postprocedure.
- Pericardial cultures were negative; pericardial drain removed on 04/02.
- Follow-up echocardiogram on 04/02 with normal left ventricular size and systolic function and minimal pericardial effusion.
History of PEA/Cardiac arrest 03/13/2024
- Status post VDRF and subsequent extubation
Paroxysmal A-fib
- Not on AC secondary to compliance
- Continue carvedilol 25 mg p.o. twice daily
- 2D echo 04/02/2024: EF 55 to 60%, mild LVH,dilated hypocontractile right ventricle, trace pulmonic regurg, small pericardial effusion 0.8 cm.
- Follows at [facility] cardiology
History of PE 2020
- Treated for 6 months with AC therapy
- Currently not on any AC.
Anxiety/depression
- Continue oxcarbazepine and trazodone
Tobacco use disorder
- 1/2 pack/day x 19 years
- Cessation advised
DVT prophylaxis
- Heparin sq.
Code status
- Full.
Anticipated Discharge: Today
Subjective/Interval History
-
Date of Service: April 16, 2024
Objective Data
-
Labs:
Laboratory Results
04/16/24
07:52
WBC 6.2
Hgb 9.6 L
Hct 30.2 L
Plt Count 253
Sodium 131 L
Potassium 4.3
Chloride 91 L
Carbon Dioxide 27
BUN 31 H
Creatinine 5.0 H*
Glucose 75
Calcium 8.8
Vital Signs:
Vital Signs
Temp Pulse Resp BP Pulse Ox
97.5 F 73 16 111/68 95
04/16/24 07:00 04/16/24 07:00 04/16/24 07:00 04/16/24 07:00 04/16/24 07:00
I&O
04/15/24 04/16/24 04/17/24
06:59 06:59 06:59
Intake Total 840 / 840 225 / 225
Balance 840 / 840 225 / 225
Review of Systems
-
History Source: Patient
Constitutional: Reports Fatigue
EENT: Reports No Symptoms Reported
Respiratory: Reports Cough (for the past few days) and Trouble Breathing (mild and intermittent)
Cardiac: Reports No Symptoms
Abdomen/GI: Reports Abdominal Pain (RUQ; 6/10); Denies Nausea, Vomiting, Diarrhea, Constipated, Bloody Stools or Anorexia
Genitourinary: Reports No Symptoms
Musculoskeletal: Reports No Symptoms
Skin: Reports Itching
Neuro: Reports No Symptoms
Endocrine: Reports No Symptoms
Hematologic / Lymphatic: Reports No Symptoms
Allergy / Immunology: Reports No Symptoms
Physical Exam
-
General: No Apparent Distress and Comfortable
HEENT: Normocephalic, Atraumatic, Moist Mucous Membranes and Anicteric
Respiratory: Decreased Breath Sounds (Right lower and middle lobe)
Cardiac: Regular Rhythm and S1/S2; Negative Murmur, Rub or Gallop
GI: Soft, Nontender, Nondistended and Tender (RUQ)
Rectal: Deferred by Provider
Musculoskeletal: No Clubbing, No Cyanosis and No Edema
Skin: Warm, Dry, IV Access / Catheter Site (ulceration overlying the fistula outflow vein) and Other (multiple scrapes throughout the skin, consistent with history of skin picking)
Neuro: Awake, Alert, Oriented and Nonfocal/Grossly Intact
Psych: Calm
[2024-04-16 10:48] LABS: Free T4 1.17 ng/dl (0.78-2.19)
--- NOTE | 2024-04-16 11:11 | PN.CDI ---
CDI
- -
CDI:
Physician Documentation Request
Admit Date: 04/12/24 15:44
Dear Doctor Janice,
Clinical Indicators:
Patient admitted with RUQ pain/recurrent pleural effusion.
04/15 Nephrology PN, 'CXR On 04/14 shows effusion improved and mild CHF'
04/15 PN, 'Pulmonary edema on follow-up chest x-ray 04/14. Most likely consistent with volume overload missed dialysis...Most recent echocardiogram with preserved biventricular function and minimal pericardial effusion'
Please clarify the acuity and etiology of the pulmonary edema:
Acute non-cardiac pulmonary edema due to volume overload
Acute pulmonary edema due to heart failure (please specify type and acuity)
Type: systolic, diastolic, combined or other type
Acuity: acute (new onset), chronic or acute on chronic
Other, please specify
Use of terms such as suspected, likely, concern for, or probable (associated with a specific diagnosis that is being evaluated, monitored, or treated as if it exists) are acceptable and can be coded in the inpatient setting, when documented at the
time of discharge.
Thank you,
MARIA LUZ uJne RN
CDI Specialist
available via tiger text
Please use your independent medical judgment in providing your response.
[2024-04-16] MEDS: NEURONTIN 300 MG PO (11:43)
--- NOTE | 2024-04-16 12:05 | CM ---
Plan: discharge to home when stable; scheduled for HD on Friday @ 1100 @ [facility]
[2024-04-16 12:13] LABS: Glucose - Point of Care 73 mg/dl (70-99)
[2024-04-16] MEDS: NOVOLOG FLEXPEN SC (12:13)
[2024-04-16 12:15] VITALS: BP 123/78
--- NOTE | 2024-04-16 14:10 | W.DCSUMMARY ---
Documented by User: Arjun Ramirez MD, Resident 04/16/24 14:48
Discharge Summary
Discharge Data
Date of Admission: 04/12/24
Date of Discharge: 04/16/24
-
Pending Results: No
Hospital Course
Primary discharge diagnosis
- Acute on chronic recurrent pleural effusion
Secondary discharge diagnoses
- Chronic and recurrent pleural effusion
- End-stage renal disease
- Type I diabetes mellitus
- Diabetic nephropathy
- Anemia due to renal disease
- Diabetic polyneuropathy
- Diabetic gastroparesis
- Acute on chronic abdominal pain
- Sub-acute splenic infarct
- Skin-picking disorder
- Skin ulcer over AV fistula outflow vein
- Essential hypertension
- Paroxysmal atrial fibrillation
- Anxiety
- Depression
- Tobacco use disorder
- Alcohol use disorder
- History of polysubstance abuse
- History of pericardial effusion with impending cardiac tamponade
- History of pulseless electrical activity/cardiac arrest
- History of pulmonary embolism
Hospital course
Luis Angel Soliz, age 34, presented to the emergency on 04-12-24 with right upper quadrant pain, nausea and 1 episode of non-bloody vomiting. He has recently missed a few dialysis sessions, and had missed his dialysis on the day of his presentation.
Chest x-ray showed progression of his pleural effusion from 3 days prior. 1450 ml of clear myles pleural fluid was aspirated with normal fluid analysis results. He received three sessions of hemodialysis, and vitals remained mostly stable through
his hospital stay, outside of requiring 2L of O2 via NS (at home as well sometimes). He was found to have an ulceration over the outflow component of the AV fistula; underwent an uncomplicated excision with skin closure. On the day of his discharge,
he was feeling fine and the abdominal pain was much less now. Dressing was changes over the surgical site, which did not show any post-op complications. He will be discharged with his home medications including the insulin pump. He is set to resume
hemodialysis at [facility] from 04-19-24.
Discharge Plan
-
Patient Disposition: Home with Home Care
Discharge Diagnosis/Procedures: Acute on chronic recurrent pleural effusion
Condition: Fair
Diet: As tolerated
Activity: As tolerated and No strenuous activity
Driving Restrictions: As prior to admission
Blood Work: CBC and BMP in 1 week
Other Services: VN
Instructions: Pleural effusion, Dialysis and diet
Stand Alone Forms: DC Instr - Vascular OR
Referrals:
Casper Arroyo MD [Family Provider] -
Gloria Wall CRNP [Specified Professional Personl] - 04/29/24 8:45 am
Prescriptions:
Continued
amlodipine 10 MG tablet
10 mg PO DAILY
metoclopramide HCl [Reglan] 10 mg Tablet
10 mg PO TIDPRN PRN (Reason: nausea)
oxcarbazepine 150 mg tablet
150 mg PO HS
trazodone 50 mg Tablet
25 mg PO HSPRN PRN (Reason: sleep)
Patient Own Insulin Pump
0 units SC .VIA PUMP
Patient Comments:
Novolog insulin
diphenhydramine HCl 25 mg Capsule
25 mg PO Q4HPRN PRN (Reason: itchiness) Qty: 30 0RF
furosemide 40 mg Tablet
40 mg PO BID
carvedilol 25 mg Tablet
25 mg PO BID
Discharge Orders:
Discharge Patient (As Directed); Ordered 04/16/24
Ordered By: Arjun Ramirez
Discharge Date and Time
Discharge Date/Time: 04/16/24 15:35
Print Language: KINYARWANDA

Documented by User: Erasto Camacho MD 04/16/24 15:47
Discharge Summary
Discharge Data
Date of Admission: 04/12/24
Date of Discharge: 04/16/24
Discharge Plan
-
Patient Disposition: Home with Home Care
Discharge Diagnosis/Procedures: Acute on chronic recurrent pleural effusion
Condition: Fair
Diet: As tolerated
Activity: As tolerated and No strenuous activity
Driving Restrictions: As prior to admission
Blood Work: CBC and BMP in 1 week
Other Services: VN
Instructions: Pleural effusion, Dialysis and diet
Stand Alone Forms: DC Instr - Vascular OR
Referrals:
Casper Arroyo MD [Family Provider] -
Gloria Wall CRNP [Specified Professional Personl] - 04/29/24 8:45 am
Prescriptions:
Continued
amlodipine 10 MG tablet
10 mg PO DAILY
metoclopramide HCl [Reglan] 10 mg Tablet
10 mg PO TIDPRN PRN (Reason: nausea)
oxcarbazepine 150 mg tablet
150 mg PO HS
trazodone 50 mg Tablet
25 mg PO HSPRN PRN (Reason: sleep)
Patient Own Insulin Pump
0 units SC .VIA PUMP
Patient Comments:
Novolog insulin
diphenhydramine HCl 25 mg Capsule
25 mg PO Q4HPRN PRN (Reason: itchiness) Qty: 30 0RF
furosemide 40 mg Tablet
40 mg PO BID
carvedilol 25 mg Tablet
25 mg PO BID
Discharge Orders:
Discharge Patient (As Directed); Ordered 04/16/24
Ordered By: Arjun Ramirez
Discharge Date and Time
Discharge Date/Time: 04/16/24 15:35
Print Language: KINYARWANDA
--- NOTE | 2024-04-16 14:45 | CM ---
Flow sheets faxed to [facility].
--- NOTE | 2024-04-16 16:16 | OR.RPT ---
Addendum entered and electronically signed by Rodríguez Degroot MD 04/22/24 09:29:
Note dimensions of excised portion of skin containing ulcerations overlying fistula measured approximately 3.5-4 cm in longitudinal dimension by maximal transverse dimension of about 2.5 cm with depth of approximately 0.75cm.
Original Note:
Operative Report
Operative Report
PROCEDURE DATE: 04/15/2024
Preoperative diagnosis: Ulcers overlying AV fistula outflow vein left upper extremity.
Postoperative diagnosis: Same
Procedure: Excision of ulcerated skin overlying left upper extremity AV fistula outflow vein with primary skin closure.
Surgeon: Zane
Patrol Judge: ADRIANA Loaiza required for assistance with traction/countertraction and closure.
Complications: None
Anesthesia: General
Indications for procedure:
Ulcerations overlying fistula. Discussed risk/benefits/alternatives of excision. Patient understood all wish to proceed.
Description of procedure:
Patient was identified brought to the operating room placed on the table in supine position. After the adequate administration of anesthesia he was prepped and draped in the standard surgical fashion. A standard preoperative timeout was undertaken
and everybody was in agreement the plan. I made an elliptical incision in the skin surrounding the ulcerations (there was 1 ulcer with an immediately adjacent ulcer in the stage of healing inferiorly). The elliptical incision encompassed both
ulceration sites. I carried this carefully through the skin and into the subcutaneous tissues. Identified the outflow vein of the fistula here. Once I dissected down to that level I grasped the elliptical skin island, and then I dissected just
deep to the skin/subcutaneous tissue here (underneath the skin island) so as to raise it off of the outflow vein of the fistula. I safely did this. There was no rent in the fistula. Therefore I was able to excise off the entirety of this ellipse
(the ulcer did not extend through the deeper segment of the subcutaneous tissue and therefore did not involve the vein itself. Once I completed excision of the skin island, I then carefully dissected on either side (medially and laterally) of the
outflow vein of the fistula so as to allow mobilization of the skin and subcutaneous tissues. I then irrigated the soft tissues. Once I had done this I was then able to grasp the skin edges and pull them together. As such then I was able to
primarily close the skin using interrupted nylon vertical mattress suture. I was able to successfully close the skin. This was a tension-free closure. Dressings were applied. The patient tolerated procedure well. Note, there was an excellent
thrill throughout the fistula through the entirety of the case.
== END 2024-04-16 15:35 | disposition home or self-care (01) | DRG 166 ==
LOC: 3 WEST ACU 15:44
PROVIDERS: Clinical Nurse Specialist Family Health; Internal Medicine; Radiology Diagnostic Radiology; Student in an Organized Health Care Education/Training Program; ADMITTING PHYSICIAN Internal Medicine; ATTENDING PHYSICIAN Internal Medicine; CONSULT PHYSICIAN Specialist; CONSULT PHYSICIAN Surgery Vascular Surgery; EMERGENCY PHYSICIAN Emergency Medicine; FAMILY PHYSICIAN Internal Medicine
PROC: 0W993ZZ Drainage of Right Pleural Cavity, Percutaneous Approach (ICD-10-PCS; 2024-04-13)
PROC: 5A1D70Z Performance of Urinary Filtration, Intermittent, Less than 6 Hours Per Day (ICD-10-PCS; 2024-04-13)
PROC: 0JBH0ZZ Excision of Left Lower Arm Subcutaneous Tissue and Fascia, Open Approach (ICD-10-PCS; 2024-04-15)
DX: J90 Pleural effusion, not elsewhere classified (principal); J96.01 Acute respiratory failure with hypoxia; N18.6 End stage renal disease; I31.39 Other pericardial effusion (noninflammatory); I50.32 Chronic diastolic (congestive) heart failure; I13.2 Hypertensive heart and chronic kidney disease with heart failure and with stage 5 chronic kidney disease, or end stage renal disease; E87.1 Hypo-osmolality and hyponatremia; J81.1 Chronic pulmonary edema; E87.70 Fluid overload, unspecified; E10.22 Type 1 diabetes mellitus with diabetic chronic kidney disease; E10.42 Type 1 diabetes mellitus with diabetic polyneuropathy; E10.43 Type 1 diabetes mellitus with diabetic autonomic (poly)neuropathy; K31.84 Gastroparesis; D63.1 Anemia in chronic kidney disease; G89.29 Other chronic pain; F42.4 Excoriation (skin-picking) disorder; L98.499 Non-pressure chronic ulcer of skin of other sites with unspecified severity; I48.0 Paroxysmal atrial fibrillation; F41.9 Anxiety disorder, unspecified; F32.A Depression, unspecified; S22.31XD Fracture of one rib, right side, subsequent encounter for fracture with routine healing; X58.XXXD Exposure to other specified factors, subsequent encounter; F10.10 Alcohol abuse, uncomplicated; F19.10 Other psychoactive substance abuse, uncomplicated; I95.89 Other hypotension; I27.20 Pulmonary hypertension, unspecified; D73.5 Infarction of spleen; Z96.41 Presence of insulin pump (external) (internal); E87.5 Hyperkalemia; F17.200 Nicotine dependence, unspecified, uncomplicated; Z91.148 Patient's other noncompliance with medication regimen for other reason; Z91.158 Patient's noncompliance with renal dialysis for other reason; Z86.711 Personal history of pulmonary embolism; Z86.74 Personal history of sudden cardiac arrest; Z79.4 Long term (current) use of insulin; Z99.2 Dependence on renal dialysis
CPT/HCPCS: 88305; 32555; 71045; 71046; 74176; 76700; 80048; 80053; 82150; 82945; 82962; 83036; 83605; 83615; 83986; 84155; 84157; 84439; 84443; 84478; 85025; 85027; 87015; 87040; 87070; 87102; 87116; 87205; 87206; 88112; 89051; 93005; 96374; 99285; G0257; Q5106

== ENCOUNTER 2024-04-21 04:04 | Emergency (ER) | payer OTHER, SELFPAY ==
--- NOTE | 2024-04-21 04:21 | DOWNTIME ---
There was a [employer] Client Supervisor Scrap Preparation Downtime on 04/21/2024 from 0100 to 04/21/2024 at 0338. Downtime documentation of patient's care, including medication administrations, has been reconciled in the electronic record per guidelines. Refer to the
patient's paper chart under the miscellaneous tab to see printed paper medication records and downtime forms.
--- NOTE | 2024-04-21 04:49 | ED.GENMED ---
History of Present Illness
General
Chief Complaint: Abdominal Pain
Source: patient
Exam Limitations: none
Time Seen by Provider: 04/21/24 04:21
History of Present Illness
History of Present Illness:
34 YO M S/P Excision of ulcerated skin overlying left upper extremity AV fistula outflow vein with primary skin closure x , 04/15/24, end stage renal disease on dialysis x 3 years, cardiac arrest 03/26/24, thoracentesis 04/04/2024 - pleural
effusion, HTN, DKA, and diabetes on pump presents to the ED with complaints of RUQ x Friday and pain overlying his AV fistula (left arm) since Friday. Pt states the RUQ pain started Friday evening while he was sitting. He states nothing makes it
better or worse. He describes the pain as sharp and shooting without radiation. He has tried Tylenol and Ibuprofen without relief. Last dose of both was 6 hours ago. On exam, he has diffuse abdominal tenderness with active bowel sounds. He has
guarding.
Pt complains of SOB, N, and V since Friday. He denies pus, warmth, or drainage from his Fistula site but complains of pain. Denies fever and chills. Denies CP.
Past History
Past History
ED Past Medical History: Arrthythmia, CHF, HTN, IDDM, Renal failure (Dialysis M-W-F) and Other (ESRD, PE, Contipation, ESRD, TR, pulmonary hypertension, congestive heart failure, etc. chronic abdominal pain/gastroparesis)
ED Past Surgical History: Appendectomy and Other (Left AV fistula, biliary drain removed)
Patient has exhibited threatening behavior?: No
PSI?: No
Social History
Tobacco: Smoker
Alcohol: None
Drug: None
Personal: Single
Living: with family
Employment: Other
Family History
Family History: Other
Review of Systems
Review of Systems
Constitutional: Reports no symptoms
EENT: Reports no symptoms
Respiratory: Reports no symptoms
Cardiac: Reports no symptoms
ABD/GI: Reports abdominal pain
: Reports no symptoms
Phy Exam
Physical Exam
Physical Exam:
Normal S1 and S2
Breath sounds are equal B/L
Diffuse abdominal pain, soft, slightly distended
General Physical Exam
General Presentation: well appearing
General age: appears stated age
General Skin: warm
General Habitus: normal
General Mental: alert
General Hydration: appears well hydrated
Cardiovascular Exam
Cardiovascular Exam: regular rate/rhythm
Gastrointestinal Exam
Gastrointestinal Exam: normal bowel sounds, soft and guarding
Palpation: left upper quadrant: Moderate tenderness, left lower quadrant: Moderate tenderness and right upper quadrant: Moderate tenderness
Auscultation of Abdomen: normal
Neurological Exam
Neurological Exam: alert, oriented x3 and speech normal
Course
Orders/Labs/Results
Orders:
Orders
04/21/24 05:07
CBC/With Diff [Complete Blood Count/With Diff] Urgent
CMP [Comprehensive Metabolic Panel] Urgent
04/21/24 05:09
US Abdomen Complete/Upper Urgent
Comment:
Reason For Exam: Diffuse abdominal pain, N/V, SOB
Abnormal Lab Results
04/21/24
05:49
POC Glucose 361 H mg/dl
(70-99)
Vital Signs
Initial and Last Documented VS:
Initial Vital Signs
Pulse
90
04/21/24 05:58
Last Documented Vital Signs
Pulse Resp BP Pulse Ox
94 18 181/99 98
04/21/24 06:21 04/21/24 06:21 04/21/24 06:21 04/21/24 06:21
MDM/Problems Addressed
Differential Diagnosis Includes:
Colitis, Cholecystitis, Cholelithiasis, Choledocholithiasis, Pancreatitis, UTI, PE, DVT, CO, SBO,
MDM/Problems Addressed:
RUQ pain x Friday
Chronic conditions affecting care: HTN
*Critical Care Note
Total Time (30-74mins, 75-104mins- exclusive of procedures): Not Applicable
ED Attending Note
-
Portions of this chart may have been created with voice recognition software.� Occasional wrong word or��sound alike� substitutions may have occurred due to the inherent limitations of voice recognition software.
Discharge Plan
Departure
Prescriptions:
No Action
amlodipine 10 MG tablet
10 mg PO DAILY
metoclopramide HCl [Reglan] 10 mg Tablet
10 mg PO TIDPRN PRN (Reason: nausea)
oxcarbazepine 150 mg tablet
150 mg PO HS
trazodone 50 mg Tablet
25 mg PO HSPRN PRN (Reason: sleep)
Patient Own Insulin Pump
0 units SC .VIA PUMP
Patient Comments:
Novolog insulin
diphenhydramine HCl 25 mg Capsule
25 mg PO Q4HPRN PRN (Reason: itchiness) Qty: 30 0RF
furosemide 40 mg Tablet
40 mg PO BID
carvedilol 25 mg Tablet
25 mg PO BID
Referrals:
PRIVATE,PHYSICIAN [Family Provider] -
Interventions
Interventions:
TY-Lowkeo-[id number] Assessment Last Done: 04/21/24 05:42
Discharge Date and Time
Print Language: EMIRATI
[2024-04-21 05:50] LABS: Glucose - Point of Care 361 mg/dl (70-99)
[2024-04-21 06:21] VITALS: BP 181/99
[2024-04-21 06:43] LABS: % Basophils 0.8 % (0-2); % Eosinophils 3.2 % (0-6); % Immature Granulocytes 0.4 % (0-0.5); % Lymphocytes 12.4 % (20.5-51.1); % Monocytes 6.2 % (1.7-9.3); Absolute Basophils 0.1 10^3/uL (0-0.2); Absolute Eosinophils 0.3 10^3/uL (0-0.7); Absolute Lymphocytes 1.1 10^3/uL (1.2-3.4); Absolute Monocytes 0.6 10^3/uL (0.1-0.6); Absolute Neutrophils 6.9 10^3/uL (1.4-6.5); Hematocrit 28.5 % (39.0-52.0); Hemoglobin 9.6 g/dL (13.0-18.0); Mean Corp Hgb Conc. 33.7 g/dL (33.0-37.0); Mean Corpuscular Hgb 29.8 pg (27.0-31.0); Mean Corpuscular Volume 88.5 fL (80.0-94.0); Mean Platelet Volume 9.8 fL (7.4-10.4); Nucleated Red Blood Cells % 0 % (-); Platelet Count 240 10^3/uL (130-400); Red Blood Cell Count 3.22 10^6/uL (4.70-6.10); Red Cell Dist. Width 18.1 % (11.5-14.5); White Blood Cell Count 8.9 10^3/uL (4.8-10.8)
[2024-04-21] MEDS: TYLENOL 1000 MG PO (07:34)
[2024-04-21] MEDS: REGLAN 10 MG IV (07:34)
[2024-04-21] MEDS: BENADRYL 25 MG IV (07:34)
[2024-04-21 08:12] LABS: ALT (SGPT) < 10 U/L (0-50); AST (SGOT) 20 U/L (17-59); Albumin 3.6 g/dl (3.5-5.0); Alkaline Phosphatase 140 U/L (38-126); Blood Urea Nitrogen 39 mg/dl (9-20); Calcium 9.1 mg/dl (8.4-10.2); Carbon Dioxide 25 mmol/L (22-30); Chloride 94 mmol/L (98-107); Glucose 418 mg/dl (70-99); Potassium 5.6 mmol/L (3.5-5.1); Sodium 135 mmol/L (135-145); Total Bilirubin 0.9 mg/dl (0.2-1.3); Total Protein 6.4 g/dl (6.3-8.2); eGFR 13.47
--- NOTE | 2024-04-21 08:25 | ED.GENMED ---
History of Present Illness
General
Chief Complaint: Abdominal Pain
Time Seen by Provider: 04/21/24 04:21
Travel History
Have you had any contact with someone who has COVID-19?: No
Do you have any symptoms of coronavirus? Fever > 100 degrees, chills, cough, shortness of breath, sore throat, loss of taste or smell, muscle aches, or headache?: No
History of Present Illness
History of Present Illness:
Unfortunate 34-year-old male presents to the emergency room complaining of abdominal pain. Patient also complaining of pain over his left fistula where he recently had a surgical revision. Patient well-known to the emergency department staff from
previous visits for similar complaints. Patient has a complex medical history including insulin-dependent diabetes, end-stage renal disease on hemodialysis and recent cardiac arrest due to metabolic acidosis which developed from noncompliance to
dialysis. Today patient complaining of right upper quad abdominal pain. He admits this is similar to previous episodes of abdominal pain. No fever. Patient did have nausea and vomiting. Patient states his last dialysis session was Friday as
scheduled.
Past History
Past History
ED Past Medical History: Arrthythmia, CHF, HTN, IDDM, Renal failure (Dialysis M-W-F) and Other (ESRD, PE, Contipation, ESRD, TR, pulmonary hypertension, congestive heart failure, etc. chronic abdominal pain/gastroparesis)
ED Past Surgical History: Appendectomy and Other (Left AV fistula, biliary drain removed)
Patient has exhibited threatening behavior?: No
PSI?: No
Social History
Tobacco: Smoker
Alcohol: None
Drug: None
Personal: Single
Living: with family
Employment: Other
Family History
Family History: Other
Phy Exam
Physical Exam
Physical Exam:
General: Awake, Alert, Oriented X3. Appears chronically ill
Vitals: unremarkable
Head: Atraumatic
Eyes: Pupils equal, EOMI
Throat: Airway intact, no exudates
Neck: Trachea midline
Lungs: Clear and equal b/l
Heart: Regular rate, no murmurs
Abd: Soft, mild, diffuse, No pulsatile mass
Neuro: Nonfocal
Skin: Warm, dry, multiple areas of skin ulcerations noted on extremities
Extremities: pulses equal b/l, left AV fistula noted, pulses present, sutures intact, no evidence of infection
Course
Orders/Labs/Results
Orders:
Orders
04/21/24 05:09
US Abdomen Complete/Upper Urgent
Comment:
Reason For Exam: Diffuse abdominal pain, N/V, SOB
04/21/24 06:32
CBC/With Diff [Complete Blood Count/With Diff] Urgent
04/21/24 07:25
Acetaminophen [Tylenol] 1,000 mg PO NOW STA
Diphenhydramine [Benadryl] 25 mg IV NOW STA
Metoclopramide [Reglan] 10 mg IV NOW STA
04/21/24 07:29
Electrocardiogram (*1) Urgent
Reason for Study: QTc Monitoring
EKG- Treatment ONCE
04/21/24 07:43
Comprehensive Metabolic Panel Stat
Abnormal Lab Results
04/21/24 04/21/24 04/21/24
05:49 06:32 07:43
RBC 3.22 L 10^6/uL
(4.70-6.10)
Hgb 9.6 L g/dL
(13.0-18.0)
Hct 28.5 L %
(39.0-52.0)
RDW 18.1 H %
(11.5-14.5)
Absolute Neuts (auto) 6.9 H 10^3/uL
(1.4-6.5)
Absolute Lymphs (auto) 1.1 L 10^3/uL
(1.2-3.4)
Neutrophils % 77.0 H %
(42.2-75.2)
Lymphocytes % 12.4 L %
(20.5-51.1)
Potassium 5.6 H mmol/L
(3.5-5.1)
Chloride 94 L mmol/L
(98-107)
BUN 39 H mg/dl
(9-20)
Creatinine 5.4 H* mg/dL
(0.7-1.3)
Glucose 418 H mg/dl
(70-99)
Alkaline Phosphatase 140 H U/L
(38-126)
POC Glucose 361 H mg/dl
(70-99)
04/21/24 06:32
04/21/24 07:43
Vital Signs
Initial and Last Documented VS:
Initial Vital Signs
Pulse
90
04/21/24 05:58
Last Documented Vital Signs
Pulse Resp BP Pulse Ox
94 18 172/86 98
04/21/24 06:21 04/21/24 06:21 04/21/24 08:37 04/21/24 08:37
MDM/Problems Addressed
MDM/Problems Addressed:
Patient presents with his abdominal pain. He was given Tylenol, Reglan and Benadryl with some improvement. Patient has labs which show a normal white count, hemoglobin which is slightly low but at his baseline, mild hyperkalemia. His glucose is
elevated but the patient is noncompliant. There is no emergent process requiring hospitalization at this time. The patient is scheduled for dialysis today which will address his potassium and hypertension.
*Pulse Oximetry
Patient hypoxic: no
*EKG
Interpreted by ED Provider?: Yes
Interpretation: normal
Heart Rate: 94
Rate: normal
Rhythm: sinus
Ferris: normal axis
Interval: normal interval
QRS Pattern: normal QRS
Ischemia: no ischemia
*Immersion Metal [employer]er Interpretation
Rate: normal
Interpretation: normal
Rhythm: sinus
*Critical Care Note
Total Time (30-74mins, 75-104mins- exclusive of procedures): Not Applicable
ED Attending Note
-
Portions of this chart may have been created with voice recognition software.� Occasional wrong word or��sound alike� substitutions may have occurred due to the inherent limitations of voice recognition software.
Discharge Plan
Departure
Patient Disposition: Home (Routine Discharge)
Date of Disposition: 04/21/24
Time of Disposition: 08:25
Patient with high blood pressure during this ER visit?: Yes
Condition: Good
Discharge Problem:
Chronic abdominal pain, Hyperkalemia, End-stage renal disease (ESRD)
Instructions: Hyperkalemia, Abdominal Pain
Prescriptions:
No Action
amlodipine 10 MG tablet
10 mg PO DAILY
metoclopramide HCl [Reglan] 10 mg Tablet
10 mg PO TIDPRN PRN (Reason: nausea)
oxcarbazepine 150 mg tablet
150 mg PO HS
trazodone 50 mg Tablet
25 mg PO HSPRN PRN (Reason: sleep)
Patient Own Insulin Pump
0 units SC .VIA PUMP
Rx Instructions:
Novolog insulin
diphenhydramine HCl 25 mg Capsule
25 mg PO Q4HPRN PRN (Reason: itchiness) Qty: 30 0RF
furosemide 40 mg Tablet
40 mg PO BID
carvedilol 25 mg Tablet
25 mg PO BID
Referrals:
PRIVATE,PHYSICIAN [Family Provider] -
Activity Restrictions/Additional Instructions:
You need to go to dialysis today. Potassium level slightly high but this is not unexpected given it is your day for dialysis.
Interventions
Interventions:
*Risk Screen - Suicide Last Done: 04/21/24 08:37
*General Assessment Last Done: 04/21/24 07:13
*Neglect/Abuse Screening Last Done: 04/21/24 07:13
ED- Fall Risk Assessment Last Done: 04/21/24 07:23
*ED COVID-19 Vaccine History Last Done: 04/21/24 07:13
*Nursing Disposition Last Done: 04/21/24 08:37
WI-Cojdfp-Nornvgatjm Assessment Last Done: 04/21/24 05:42
Discharge Date and Time
Discharge Date/Time: 04/21/24 08:39
Print Language: SWISS
[2024-04-21 08:37] VITALS: BP 172/86
== END 2024-04-21 08:39 | disposition home or self-care (01) ==
LOC: EMR 04:04
PROVIDERS: EMERGENCY PHYSICIAN Emergency Medicine
DX: G89.29 Other chronic pain (principal); R10.9 Unspecified abdominal pain; I13.2 Hypertensive heart and chronic kidney disease with heart failure and with stage 5 chronic kidney disease, or end stage renal disease; E11.22 Type 2 diabetes mellitus with diabetic chronic kidney disease; N18.6 End stage renal disease; E11.43 Type 2 diabetes mellitus with diabetic autonomic (poly)neuropathy; E87.5 Hyperkalemia; I50.9 Heart failure, unspecified; F17.200 Nicotine dependence, unspecified, uncomplicated; Z86.74 Personal history of sudden cardiac arrest; Z91.158 Patient's noncompliance with renal dialysis for other reason; Z99.2 Dependence on renal dialysis
CPT/HCPCS: 99284; 96374; 96375; 76700; 80053; 82962; 85025; 93005

== ENCOUNTER 2024-04-26 09:30 | Emergency (ER) | payer OTHER, SELFPAY ==
[2024-04-26 09:56] VITALS: BP 187/119
[2024-04-26 10:46] LABS: Glucose - Point of Care 275 mg/dl (70-99)
--- NOTE | 2024-04-26 11:11 | ED.GENMED ---
History of Present Illness
General
Chief Complaint: Abdominal Symptoms
Source: patient and records
Time Seen by Provider: 04/26/24 10:57
History of Present Illness
History of Present Illness:
34-year-old male with longstanding history of chronic pain, kidney injury requiring hemodialysis, etc. etc. presents emergency department with complaints of abdominal pain, mostly in the right upper quadrant associate with nausea and vomiting.
Patient has a history of chronic pain but says that it got worse yesterday evening and continues. He denies hematemesis or coffee-ground emesis. His bowel movements are normal. He denies lower abdominal pain, fever, chills, back pain, extremity
pain. He denies chest pain and notes mild shortness of breath. He denies orthopnea or PND. He is due to get hemodialysis today.
Past History
Past History
ED Past Medical History: Arrthythmia, CHF, HTN, IDDM, Renal failure (Dialysis -W-) and Other (ESRD, PE, Contipation, ESRD, TR, pulmonary hypertension, congestive heart failure, etc. chronic abdominal pain/gastroparesis)
ED Past Surgical History: Appendectomy and Other (Left AV fistula, biliary drain removed)
Patient has exhibited threatening behavior?: No
PSI?: No
Social History
Tobacco: Smoker
Alcohol: None
Drug: None
Personal: Single
Living: with family
Employment: Other
Family History
Family History: Other
Phy Exam
Physical Exam
Physical Exam:
GENERAL: Alert , in no apparent distress
EYE: pupils equal and reactive, conjunctive a pink
NECK: Supple, no significant adenopathy.
ENT: o/p clr, mmm.
CARDIAC: Regular rate and rhythm .
LUNGS: Clear breath sounds bilaterally, no acute respiratory distress, no wheezes/rales/rhonchi, very slightly decreased breath sounds at the right base
ABDOMEN: Soft, mild upper abdominal tenderness, no r/g, no cvat
NEUROLOGICAL: Alert and oriented, no focal neuro deficits
SKIN: Warm and dry, skin intact with exception of scattered superficial skin abrasions that appear to be consistent with skin picking which patient confirms.
MUSCULOSKELETAL: No edema, well perfused.
PSYCH: Normal and appropriate interaction.
BACK: no lesions noted
VASC: L UE graft sutures in place, bruit noted, no redness/warmth
Course
Orders/Labs/Results
Orders:
Orders
04/26/24 11:09
Cardiac Monitoring- Treatment ONCE
Acetaminophen 1000MG/100Ml [Ofirmev] 1,000 mg in 100 ml IV ONCE
Acetaminophen IV Indication:: ED Narcotic History-ONCE
Diphenhydramine [Benadryl] 25 mg IV NOW STA
Metoclopramide [Reglan] 10 mg IV NOW STA
04/26/24 11:10
Electrocardiogram (*1) Stat
Reason for Study: Abdominal Pain
EKG- Treatment ONCE
US Abdomen Complete/Upper Urgent
Comment:
Reason For Exam: PAIN (ruq)
04/26/24 11:13
B-Hydroxybutyrate Urgent
Comment: ADD ON
Complete Blood Count/No Diff Urgent
Comprehensive Metabolic Panel Urgent
Lipase Urgent
04/26/24 14:14
Lactic Acid Stat
04/26/24 14:21
Add On- LAB Urgent
Tests Added?: beta-hydroxy.
Nursing to Place Non Medication Order As Directed
Physician Order: remove pt's insulin pump
04/26/24 14:34
Albumin Human 25% 50 ml [Flexbumin 25% For Hemodialysis] 12.5 grams IV HD-Q1HPRN PRN
Epoetin Ryder-Epbx [Retacrit] 6,000 units IV HD-ONCE ONE
Heparin 500 units IV HD-ONCE ONE
Heparin 500 units IV HD-ONCE ONE
Mannitol 25% 12.5 grams IV HD-Q1HPRN PRN
Sodium Chloride [Sodium Chloride 4 Meq/ml For Hemodialysis] 10 ml IV HD-Q1HPRN PRN
Hemodialysis treatment As Directed
Treatment date:: 04/26/24
Treatment type: Hemodialysis
Ultrafiltration (kg): 2
Treatment time (duration): 2 hours 30 minutes
Use dialysis access:: AVF
Dialyzer:: Optiflux 160
Blood flow rate minimum: 350
Blood flow rate maximum: 400
Dialysis flow rate: 600 mL/min
Dialysate temperature: 35 degrees Celsius
Sodium (Na): 140
Potassium (K): 2
Calcium (Ca): 2.5
Bicarbonate (HCO3): 35
04/26/24 14:35
Ampicillin/Sulbactam 3 G [Unasyn] 3 gm 0.9% Sodium Chloride 100 ml [Nss] 100 ml IV NOW
04/26/24 14:36
Hemodialysis treatment As Directed
Treatment date:: 04/27/24
Treatment type: Hemodialysis
Ultrafiltration (kg): 2
Treatment time (duration): 2 hours 30 minutes
Use dialysis access:: AVF
Dialyzer:: Optiflux 160
Blood flow rate minimum: 350
Blood flow rate maximum: 400
Dialysis flow rate: 600 mL/min
Dialysate temperature: 35 degrees Celsius
Sodium (Na): 140
Potassium (K): 2
Calcium (Ca): 2.5
Bicarbonate (HCO3): 35
04/26/24 14:43
Admit/Transfer Patient As Directed
Co-Sign Provider:
Level of Care: Inpatient admission
Assign to:: Telemetry
Physician / Group: Marianne
Diagnosis: possible acute cholecystitis
Reason for Telemetry: Other
Other Reason for Telemetry: Hyperkalemia
Date to Stop Telemetry: 04/28/24
Time to Stop Telemetry: 11:00
Reason for Hospitalization: possible acute cholecystitis
Expected length of stay greater than two midnights?: Yes
ELOS- Estimated Length of Stay in days: 3
I certify the patient meets the requirements for IP care: Yes
04/26/24 14:45
Code Status As Directed
Resuscitation Status: Full Code
04/26/24 15:00
Insulin Glargine Lantus [Lantus] 10 units Subcutaneous Insulin Syringe [Syringe-Insulin] 0 unit SC DAILY
Insulin Glargine Lantus [Lantus] 15 units Subcutaneous Insulin Syringe [Syringe-Insulin] 0 unit SC DAILY
04/26/24 15:28
Urine Drug Abuse Screen Routine
04/26/24 16:00
Ampicillin/Sulbactam 3 G [Unasyn] 3 gm 0.9% Sodium Chloride 100 ml [Nss] 100 ml IV Q12H
04/27/24 08:00
Albumin Human 25% 50 ml [Flexbumin 25% For Hemodialysis] 12.5 grams IV HD-Q1HPRN PRN
Epoetin Ryder-Epbx [Retacrit] 6,000 units IV HD-ONCE ONE
Heparin 500 units IV HD-ONCE ONE
Heparin 500 units IV HD-ONCE ONE
Mannitol 25% 12.5 grams IV HD-Q1HPRN PRN
Sodium Chloride [Sodium Chloride 4 Meq/ml For Hemodialysis] 10 ml IV HD-Q1HPRN PRN
04/28/24 11:00
DC Protocol for Telemetry ONCE
Abnormal Lab Results
04/26/24 04/26/24
10:44 11:13
RBC 3.59 L 10^6/uL
(4.70-6.10)
Hgb 10.6 L g/dL
(13.0-18.0)
Hct 33.6 L %
(39.0-52.0)
MCHC 31.5 L g/dL
(33.0-37.0)
RDW 18.2 H %
(11.5-14.5)
Potassium 6.4 H* mmol/L
(3.5-5.1)
BUN 53 H mg/dl
(9-20)
Creatinine 7.9 H* mg/dL
(0.7-1.3)
Glucose 251 H mg/dl
(70-99)
POC Glucose 275 H mg/dl
(70-99)
04/26/24 11:13
04/26/24 11:13
Vital Signs
Initial and Last Documented VS:
Initial Vital Signs
Temp Pulse BP Pulse Ox
98.2 F 92 187/119 95
04/26/24 09:56 04/26/24 09:56 04/26/24 09:56 04/26/24 09:56
Last Documented Vital Signs
Temp Pulse Resp BP Pulse Ox
98.2 F 89 20 178/110 96
04/26/24 09:56 04/26/24 14:40 04/26/24 14:40 04/26/24 14:40 04/26/24 14:40
*Critical Care Note
Total Time (30-74mins, 75-104mins- exclusive of procedures): Not Applicable
Update Note
Update Note:
Patient presents to the Emergency Department with ___abdominal pain nausea vomiting
Number and Complexity of Problems Addressed at the Encounter
� Chronic conditions affecting care:
� Acute Exacerbation and/or Progression of Chronic Illness:
� Differential Diagnosis includes: But not limited to exacerbation of chronic pain, liver disease, biliary disease, gastroenteritis, DKA, etc.
Amount and/or Complexity of Data to be Reviewed and Analyzed
� I performed an independent evaluation of and my interpretation is:
EKG:read by me, nsr, T wave nonspec abnl
CT:
Xrays:
Laboratory Studies: K elevated, Cr elevated as expected, baseline anemia
Other:us There is thickening of the incompletely distended gallbladder wall to as much is 9 mm suggesting possible cholecystitis despite the absence of intraluminal calculi.
2). There is mild dilatation of the common bile duct to 8 mm suggesting possible distal biliary obstruction
3). Hepatomegaly
4). There is right-sided pleural effusion
� Review of other/old records reveals: Patient recently hospitalized with a splenic infarct, discharge summary reviewed
� Clinical information was obtained by an independent historian:
� Prescriptions/Medications Considered but not given:
� Further testing considered but not performed:
Risk of Complications and/or Morbidity or Mortality of Patient Management
� Social determinants of health affecting care:
� Discussion with other providers (PCP, Hospitalists, Consultants, etc):
� Escalation of care including admission/observation vs risk of discharge considered: case d/w GI (Julio) re:US report, sxs, etc.....recommends surg c/s, may need HIDA vs surgery. Pt with acute on chronic pain, continues to
request narcotics, I d/w pt as per surgery. Requesting just benadryl in meantime. Abd soft, ttp, no r/g. Walking around room comfortably at time. Case d/w dr Artemio Lindsey re:need for HD today given K, he will arrange. Case d/w hospitalist for
admission.
ED Attending Note
-
Portions of this chart may have been created with voice recognition software.� Occasional wrong word or��sound alike� substitutions may have occurred due to the inherent limitations of voice recognition software.
Discharge Plan
Departure
Patient Disposition: Against Medical Advice
Date of Disposition: 04/26/24
Time of Disposition: 14:57
Admit to: Telemetry
Condition: Fair
Discharge Problem:
Acute cholecystitis, Renal failure, hyperkalemia
Prescriptions:
No Action
amlodipine 10 MG tablet
10 mg PO DAILY
metoclopramide HCl [Reglan] 10 mg Tablet
10 mg PO TIDPRN PRN (Reason: nausea)
oxcarbazepine 150 mg tablet
150 mg PO HS
trazodone 50 mg Tablet
25 mg PO HS
Patient Own Insulin Pump
0 units SC .VIA PUMP
Rx Instructions:
Novolog insulin
furosemide 40 mg Tablet
40 mg PO BID@0800,1600
carvedilol 25 mg Tablet
25 mg PO BID
Interventions
Interventions:
*Risk Screen - Suicide Last Done: 04/26/24 11:02
*General Assessment Last Done: 04/26/24 11:02
*Neglect/Abuse Screening Last Done: 04/26/24 11:02
ED- Fall Risk Assessment Last Done: 04/26/24 11:02
*ED COVID-19 Vaccine History Last Done: 04/26/24 10:01
*Nursing Disposition Last Done: 04/26/24 15:18
MX-Kcvrwa-Glogfpjpyv Assessment Last Done: 04/26/24 11:02
Discharge Date and Time
Discharge Date/Time: 04/26/24 15:19
Print Language: CROATIAN
[2024-04-26] MEDS: OFIRMEV 100 IV (11:15)
[2024-04-26] MEDS: BENADRYL 25 MG IV (11:15)
[2024-04-26] MEDS: REGLAN 10 MG IV (11:16)
[2024-04-26 11:29] VITALS: BP 175/101
[2024-04-26 12:22] LABS: Hematocrit 33.6 % (39.0-52.0); Hemoglobin 10.6 g/dL (13.0-18.0); Mean Corp Hgb Conc. 31.5 g/dL (33.0-37.0); Mean Corpuscular Hgb 29.5 pg (27.0-31.0); Mean Corpuscular Volume 93.6 fL (80.0-94.0); Mean Platelet Volume 9.8 fL (7.4-10.4); Platelet Count 249 10^3/uL (130-400); Red Blood Cell Count 3.59 10^6/uL (4.70-6.10); Red Cell Dist. Width 18.2 % (11.5-14.5); White Blood Cell Count 6.7 10^3/uL (4.8-10.8)
[2024-04-26 12:41] LABS: ALT (SGPT) < 10 U/L (0-50); AST (SGOT) 25 U/L (17-59); Albumin 3.9 g/dl (3.5-5.0); Alkaline Phosphatase 124 U/L (38-126); Blood Urea Nitrogen 53 mg/dl (9-20); Calcium 8.4 mg/dl (8.4-10.2); Carbon Dioxide 22 mmol/L (22-30); Chloride 99 mmol/L (98-107); Glucose 251 mg/dl (70-99); Lipase 45 U/L (23-300); Potassium 6.4 mmol/L (3.5-5.1); Sodium 137 mmol/L (135-145); Total Bilirubin 0.8 mg/dl (0.2-1.3); eGFR 8.53
[2024-04-26 12:49] VITALS: BP 171/113
--- NOTE | 2024-04-26 14:04 | HPS.HSE ---
Family Physician
-
Family Physician: Casper Arroyo
Chief Complaint
-
Abdominal pain
History of Present Illness
34 y/o M with PMHx:
Chronic and recurrent pleural effusion
ESRD on HD (frequently noncompliant)
DM1 with diabetic nephropathy, polyneuropathy, gastroparesis
Anemia due to ESRD
Chronic abdominal pain
h/o splenic infarct
Skin-picking disorder
Skin ulcer over AV fistula outflow vein s/p excision of ulcerated skin overlying left upper extremity AV fistula outflow vein with primary skin closure on 04/16/24
Essential hypertension
Paroxysmal atrial fibrillation
Anxiety
Depression
Tobacco abuse disorder
Alcohol abuse disorder
h/o polysubstance abuse
h/o pericardial effusion with impending cardiac tamponade
h/o pulseless electrical activity/cardiac arrest
h/o pulmonary embolism
Who presents with a chief complaint of abdominal pain. The patient has acute on chronic abdominal pain. He had vomiting that started yesterday. Denies hematemesis or coffee-ground emesis. He also reports diarrhea but denies melena hematochezia.
He states his abdominal pain is worse than his baseline abdominal pain is in the right upper quadrant. He reports he has had some chest pain but denies shortness of breath. Denies fevers or chills. He does not have any other acute symptoms.
Medical History
Past Medical History
Past Medical History: Reports Other (as per HPI)
Past Surgical History: Reports Other (as per HPI)
Social History
Tobacco: Smoker
Alcohol: None
Drug: None
Family History
Family History: Not pertinent
Allergies / Home Medications
Allergies reflects when Allergies were last updated in [facility].
Home Medications with original date entered in [facility]
Allergy/Medication List:
From 04/16/24 d/c summary (current med rec in process):
amlodipine 10 MG tablet
10 mg PO DAILY
metoclopramide HCl [Reglan] 10 mg Tablet
10 mg PO TIDPRN PRN (Reason: nausea)
oxcarbazepine 150 mg tablet
150 mg PO HS
trazodone 50 mg Tablet
25 mg PO HSPRN PRN (Reason: sleep)
Patient Own Insulin Pump
0 units SC .VIA PUMP
Patient Comments:
Novolog insulin
diphenhydramine HCl 25 mg Capsule
25 mg PO Q4HPRN PRN (Reason: itchiness) Qty: 30 0RF
furosemide 40 mg Tablet
40 mg PO BID
carvedilol 25 mg Tablet
25 mg PO BID
Allergies: Shellfish
Review of Systems
-
History Source: Patient
A 12 point ROS was completed and negative except as noted: Yes
Physical Exam
Vital Signs
Vital Signs
Temp Pulse Resp BP Pulse Ox
98.2 F 86 20 171/113 96
04/26/24 09:56 04/26/24 12:49 04/26/24 12:49 04/26/24 12:49 04/26/24 12:49
Physical Exam
General: Other (.)
Laboratory Results
-
04/26/24 11:13
04/26/24 11:13
Laboratory Results
Total Bilirubin 0.8 mg/dl (0.2-1.3) 04/26/24 11:13
AST 25 U/L (17-59) 04/26/24 11:13
ALT < 10 U/L (0-50) 04/26/24 11:13
Alkaline Phosphatase 124 U/L (38-126) 04/26/24 11:13
Lipase 45 U/L (23-300) 04/26/24 11:13
Impression/Plan
-
Gen: NAD, AAOx3, appears chronically ill.
Eyes: EOMI, PERRLA, no scleral icterus.
Neck: supple.
CV: RRR, +S1/S2, no m/r/g.
Resp: decreased BS in the R base, no rales, wheezes, or rhonchi.
Abd: +BS, soft, RUQ TTP, ND
Skin: open wounds on LEs, 2+ B/L LE edema
Neuro: CN 2-12 intact, non-focal.
Psych: Normal mood and affect.
Abd U/S:
1) There is thickening of the incompletely distended gallbladder wall to as much is 9 mm suggesting possible cholecystitis despite the absence of intraluminal calculi.
2) There is mild dilatation of the common bile duct to 8 mm suggesting possible distal biliary obstruction
3) Hepatomegaly
4) There is right-sided pleural effusion
Abdominal pain:
-acute on chronic
-possible acute cholecystitis on abdominal ultrasound
-Start IV Unasyn
-Case discussed with surgery who is evaluating now. Should the patient require narcotic analgesia for gallbladder pathology surgery will order. The patient has a known history of drug-seeking behavior and polysubstance abuse.
-NPO except meds
-LFTs normal
-likely will have HIDA vs MRCP
-gentle IVF support
DM1:
-pt uses insulin pump
-reports to me that his basal rate is 0.5U/hr and that he boluses himself 30-35U daily.
-will remove insulin pump (discussed with ED nurse) and give 10U Lantus now as pt will be NPO (discussed with diabetes PATIENT CARE DIRECTOR)
-last a1c was 9.1% on 04/15/24
-accuchecks/mod res SSI
-note HCO3- 22. Will check lactic acid and beta hydroxybutyrate to be complete but at this time the anion gap of 16 is likely due to end-stage renal disease.
ESRD:
-cont HD as per renal
-pt states last HD was on 04/23/24
-currently with hyperkalemia, will need HD today
Other problems:
Anemia due to ESRD: Hb stable
h/o splenic infarct
Skin-picking disorder
Skin ulcer over AV fistula outflow vein s/p excision of ulcerated skin overlying left upper extremity AV fistula outflow vein with primary skin closure on 04/16/24
Essential hypertension: cont Coreg/Norvasc
Paroxysmal atrial fibrillation: cont Coreg
Anxiety
Depression
Tobacco abuse disorder
Alcohol abuse disorder
h/o polysubstance abuse
h/o pericardial effusion with impending cardiac tamponade
h/o pulseless electrical activity/cardiac arrest
h/o pulmonary embolism
FULL/Heparin
--- NOTE | 2024-04-26 14:37 | PN.DE.MGMTRT ---
Insulin Management
- -
04/26/2024: Diabetes Management Consult
34 year old male who presented to the ED with c/o abd pain likely due to Acute Cholecystitis per Abdominal US.
Pt is well known to Diabetes team, from recurrent hospital admissions for abdominal pain/DKA, most of which have resulted in leaving AMA.
PMH: ETOH use disorder, recurrent DKA, ESRD on HD (MWF), Chronic Abdominal Pain, Gastroparesis, Pulmonary hypertension, Polysubstance abuse, Anxiety, Anemia and T1DM for 18 years. Prior to admission, was using a Medtronic 770 pump with NovoLog
insulin and Guardian sensor.
Last A1C 9.1% on 04/15. Cr 7.9, eGFR 8.53. Glucose was 251 (V) on admission to the ED.
Attempted to see pt for Diabetes mgt consult in ED and was notified that pt left AMA because he was unable to receive IV Narcotics as desired.
Per chart review, pt had been using his insulin pump since d/c from prior hospitalization.
His pump had been removed on arrival to ED due to the nature of his acute illness, NPO status while undergoing evaluation for surgery.
Lantus 10 units was [address] Lopes, however, pt did not receive the insulin prior to leaving AMA.
Diabetes History
- -
Type of Diabetes: 1
Pre-Admission Diabetes Regimen
04/26/24
11:13
Creatinine 7.9 H*
Insulin Pump Settings
IP Diabetes Regimen
04/26/24 04/26/24
10:44 11:13
Glucose 251 H
POC Glucose 275 H
Patient Education
[2024-04-26 14:40] VITALS: BP 178/110
[2024-04-26 14:40] LABS: Lactic Acid 1.3 mmol/L (0.7-2.0)
--- NOTE | 2024-04-26 14:41 | W.CON.NEPH ---
Consultation
-
Date/Time Consultation Requested: April 26, 2024 12 noon
Date/Time Consultation Performed: April 26, 2024 2 PM
Requesting Provider: Dr. Lopes
Performing Provider: Dr. Lindsey
Reason for Consultation: ESRD
Medical History
-
Chief Complaint: End-stage renal
History of Present Illness:
The patient is a 34-year-old man with diabetes mellitus type 1 on insulin, blindness, and end-stage renal disease on hemodialysis MWF. He was recently in the hospital just last week. He has a notorious history of noncompliance and signing out AMA
and does not regularly go to his own hemodialysis unit but instead shows up to the emergency room with complaints of abdominal pain seeking narcotics for pain relief. He is maintained chronically on carvedilol for his hypertension is maintained on
an insulin pump for his diabetes. He says that he received a full treatment on Friday of last week as well as Friday. On Friday, he had to continue to go to the bathroom and ultimately stop dialysis early. He believes that he may have only
gotten 1 hour of dialysis on Friday. He does report some mild diarrhea. He was in the emergency room on April 21 with abdominal pain and was discharged. The pain persisted and he returns today. Not go to dialysis today. He has noted to have a
potassium of 6.4. He does have chronic abdominal pain to begin with felt to be due to gastroparesis.
Past Medical History
end-stage renal disease on hemodialysis
PE
constipation
CHF
pleural effusions
depression/ anxiety
polysubstance abuse
Diabetes mellitus type I
Left upper extremity AV fistula revision for ulcers
Pulmonary hypertension
pericardial effusion with impending cardiac tamponade had pericardiocentesis 385 cc exudative fluid on 03/31, history of right pleural effusion status post thoracentesis 04/04/2024, Hx cardiac arrest Hx PE, ESRD on HD Friday,,
paroxysmal A-fib, splenic infarct, diabetes mellitus
biliary stent 2019
Past Surgical History: Other (LUE AVF Appendectomy PD Catheter placed / removed)
Social History
Tobacco: Smoker
Alcohol: Occasional
Drug: Other (h/o polysub abuse)
Family History
Family History: Not Pertinent
Allergies / Home Medications
Allergy/AdvReac Type Severity Reaction Status Date / Time
shellfish derived Allergy Hives Verified 04/26/24 10:02
�Medication �Instructions �Recorded �Confirmed �Type
amlodipine 10 mg tablet 10 mg PO DAILY Blood pressure 04/22/21 04/21/24 History
metoclopramide HCl 10 mg tablet 10 mg PO TIDPRN PRN nausea 04/07/23 04/21/24 History
(Reglan)
oxcarbazepine 150 mg tablet 150 mg PO HS Neurological Condition 07/24/23 04/21/24 History
trazodone 50 mg tablet 25 mg PO HSPRN PRN sleep 01/05/24 04/21/24 History
Patient Own Insulin Pump 0 units SC .VIA PUMP diabetes 02/13/24 04/21/24 History
diphenhydramine HCl 25 mg capsule 25 mg PO Q4HPRN PRN itchiness #30 04/06/24 04/21/24 Rx
caps
carvedilol 25 mg tablet 25 mg PO BID Blood Pressure 04/12/24 04/21/24 History
furosemide 40 mg tablet 40 mg PO BID Fluid 04/12/24 04/21/24 History
Retention/Swelling
Review of Systems
-
Abdominal pain right-sided, worsening lower extremity edema with excoriation
All other systems: Negative unless noted
Physical Exam
Vital Signs
Vital Signs
Temp Pulse Resp BP Pulse Ox
98.2 F 86 20 171/113 96
04/26/24 09:56 04/26/24 12:49 04/26/24 12:49 04/26/24 12:49 04/26/24 12:49
Lab Results
WBC 6.7 10^3/uL (4.8-10.8) 04/26/24 11:13
RBC 3.59 10^6/uL (4.70-6.10) L 04/26/24 11:13
Hgb 10.6 g/dL (13.0-18.0) L 04/26/24 11:13
Hct 33.6 % (39.0-52.0) L 04/26/24 11:13
Plt Count 249 10^3/uL (130-400) 04/26/24 11:13
Sodium 137 mmol/L (135-145) 04/26/24 11:13
Potassium 6.4 mmol/L (3.5-5.1) H* 04/26/24 11:13
Chloride 99 mmol/L (98-107) 04/26/24 11:13
Carbon Dioxide 22 mmol/L (22-30) 04/26/24 11:13
BUN 53 mg/dl (9-20) H 04/26/24 11:13
Creatinine 7.9 mg/dL (0.7-1.3) H* 04/26/24 11:13
eGFR 8.53 04/26/24 11:13
Glucose 251 mg/dl (70-99) H 04/26/24 11:13
Calcium 8.4 mg/dl (8.4-10.2) 04/26/24 11:13
Albumin 3.9 g/dl (3.5-5.0) 04/26/24 11:13
Physical Exam
Patient is awake alert oriented and in no distress. Mood and affect were pleasant, insight and judgment were good. Pupils are equal round and reactive to light, extraocular movements are intact, sclera were anicteric. Hearing was normal, ears and
nose are intact. Oropharynx was clear. Neck was supple with trachea midline and no thyromegaly. Heart was regular rate and rhythm without rubs. Lower extremities with 3+ edema. Lungs were clear to auscultation bilaterally and with normal
excursion. Abdomen was soft, diffusely tender, with normal active bowel sounds, and no hepatosplenomegaly. Skin was without rash and with normal turgor. AV fistula with good thrill and bruit
Data Reviewed
-
Ultrasound: Report Reviewed by me (Abdominal ultrasound on April 26, 2024 shows right pleural effusion, hepatomegaly, top normal spleen, incompletely distended gallbladder, no kidney stones, mild dilatation of common bile duct 8 mm)
Medical Tests (Nuc Med, Echo etc): Image Personally Visualized and interpreted (EKG on April 26, 2024 by my reading shows normal sinus rhythm T wave abnormality anteriorly, prolonged QT)
Labs: Labs Reviewed by me (WBC 6.7, hemoglobin 10.6, platelets 249, potassium 6.4, bicarbonate 22, bilirubin 0.8, AST 25, ALT less than 10)
Assessment/Plan
-
Impression:
ESRD (MWF) last HD last friday
Status post PEA/Asystole 03/13/24
PAF : briefly after code on 03/13/24
Chronic noncompliance with dialysis
ESRD MWF ([facility]),
left UE AVF
DKA hx/metabolic acidosis
Hyperkalemia
Hyponatremia
Chronic Abdominal Pain / Gastroparesis
Pulmonary hypertension
Polysubstance abuse
Anxiety
History of biliary drain
Anemia
Right pleural effusion--s/p R throa for pleural effusion with 1.8L transudate 02/17/24
History of pericardial effusion requiring pericardial drain
Plan:
Dialysis today, 2.5 hours to allow for further studies given abdominal pain
Surgery following
Dialysis tomorrow another 2.5 hours to catch up
[2024-04-26 15:11] LABS: B-Hydroxybutyrate 0.14 mmol/L (0.02-0.27)
--- NOTE | 2024-04-26 15:16 | CON.GS ---
Addendum entered and electronically signed by Elian Martínez MD 04/26/24 16:47:
I saw and examined the patient independently.
The [employer]'s note was reviewed and I agree with the note, assessment and plan except where noted below.
Comment: 34-year-old male with a complex past medical history including polysubstance abuse, percutaneous cholecystostomy tube placed at [facility] subsequently removed for unclear etiology who presents with right upper quadrant pain and found to have
slightly dilated gallbladder wall in the setting of a recent admission where a similar findings were identified on ultrasound but normal on CT. Exam and labs reassuring.
As of yet the patient has not received narcotics and he appears very motivated and obtaining some. He states Tylenol and Toradol do nothing for his pain. I explained that we would like to proceed with a HIDA scan which we should be able to get
fairly soon will be the best test to rule in/out acute cholecystitis however there is a high risk for a false positive if he takes narcotics. He is not interested in the HIDA scan and would like pain medication.
His imaging findings and exam are somewhat discordant, HIDA scan would really be the best test. I do not see much value in repeating a CT scan at this point.
He understands that given his comorbidities he is high surgical risk for both intraoperative and postoperative complications. My main concern would be his ascites.
No acute general surgery intervention warranted at this time, HIDA when able to keep off of narcotics for 24 hours.
Recommend urine tox
If negative for opioids, okay to proceed with a HIDA scan
If the HIDA is positive, we will discuss surgical options, if negative, this would effectively rule out acute cholecystitis.
Okay for clear liquid diet, can advance to a renal diet as tolerated.
Trend CMP and CBC.
All questions answered, but patient not agreeable to plan, so we will follow along clinically for now.
Original Note:
Medical History
-
Chief Complaint: pain
History of Present Illness:
Mr. Soliz is a 34 yo male with a h/o Afib (not on AC), PE, HF, polysubstance abuse (tobacco, ETOH, amphetamines), DM with nonadherence and multiple admissions for DKA, polyneuropathy, gastroparesis, ESRD on HD via AV fistula (missed HD today)
previously on peritoneal dialysis with catheter subsequently removed, PE, Pericardial effusion, PEA arrest with ROSC, multiple admissions and often signs out AMA who previously sought his medical care at [facility] and has transitioned to last
year. Last year at [facility], he did have a biliary drain placed which was subsequently removed. He notes that at that time he did not have gallstones and is unclear as to the details regarding if surgery was recommended or not. He presents this
admission with complaints of generalized abdominal pain although he notes it is worse in the RUQ. Weber's negative on exam, diffusely tender. Multiple skin lesions noted in various stages of healing with some bleeding. Pale on exam. Noted
ambulating in room comfortably. Patient requesting narcotics and notes that he will not try Tylenol or Toradol for pain and only wants narcotics. Reported pain, does seem out of proportion to exam.
Past Medical History
Past Medical History: Arrhythmias (AFib), CHF, HTN, IDDM (dx at age 13), Renal Failure (ESRD PD previously now on HD, Osteomyelitis) and Other (PE, recurrent pleural effusions requiring thoracentesis, splenic infarct)
Past Surgical History: Appendectomy, Cardiac (pericardiocentesis 03/31/2024) and Other (PD cath placement and removal at OSH, AV fistula)
Social History
Tobacco: Smoker
Alcohol: Daily
Drug: Other (amphetamines on UDS previously)
Family History
Family History: Reviewed & Not Pertinent
Allergies / Home Medications
Allergy/AdvReac Type Severity Reaction Status Date / Time
shellfish derived Allergy Hives Verified 04/26/24 10:02
�Medication �Instructions �Recorded �Confirmed �Type
amlodipine 10 mg tablet 10 mg PO DAILY Blood pressure 04/22/21 04/26/24 History
metoclopramide HCl 10 mg tablet 10 mg PO TIDPRN PRN nausea 04/07/23 04/26/24 History
(Reglan)
oxcarbazepine 150 mg tablet 150 mg PO HS Neurological Condition 07/24/23 04/26/24 History
trazodone 50 mg tablet 25 mg PO HS Sleep 01/05/24 04/26/24 History
Patient Own Insulin Pump 0 units SC .VIA PUMP diabetes 02/13/24 04/26/24 History
carvedilol 25 mg tablet 25 mg PO BID Blood Pressure 04/12/24 04/26/24 History
furosemide 40 mg tablet 40 mg PO BID@0800,1600 Fluid 04/12/24 04/26/24 History
Retention/Swelling
Review of Systems
-
History Source: Patient
All other systems: Negative unless noted
A 10 point review of systems was completed, and was negative except as per HPI.
Physical Exam
Vital Signs
Temp Pulse Resp BP Pulse Ox
98.2 F 89 20 178/110 96
04/26/24 09:56 04/26/24 14:40 04/26/24 14:40 04/26/24 14:40 04/26/24 14:40
Lab Results
04/26/24 11:13
04/26/24 11:13
WBC 6.7 10^3/uL (4.8-10.8) 04/26/24 11:13
Hgb 10.6 g/dL (13.0-18.0) L 04/26/24 11:13
Hct 33.6 % (39.0-52.0) L 04/26/24 11:13
Plt Count 249 10^3/uL (130-400) 04/26/24 11:13
Physical Exam
General: Other (chronically ill appearing)
HEENT: Normocephalic
Respiratory: Non Labored Respirations
GI: Soft, Non Distended, Tender (diffusely tender) and Other (?ascites present)
Skin: Warm and Other (multiple scabbed areas in various stages of healing to arms and legs)
Neuro: Awake, Alert, AO x 3 and Other (ambulating in room)
Psych: Calm
Data Reviewed
-
Ultrasound: Image Personally Visualized and interpreted, Report Reviewed by me, Discussed with Physician, Discussed with Patient and Discussed with Family
Old Records: Reviewed
Assessment / Plan
-
34 yo male with extensive medical history Afib (not on AC), PE, HF, polysubstance abuse (tobacco, ETOH, amphetamines), IDDM with nonadherence and multiple admissions for DKA, polyneuropathy, PEA with cardiac arrest, gastroparesis, ESRD on HD via AV
fistula (nonadherence has been an issue) and prior biliary drain at [facility] in 2022 which was subsequently removed who presents with abdominal pain.
US of abdomen without cholelithiasis. The gallbladder is nondistended. Some wall thickening and biliary ductal dilatation noted. Hepatomegaly noted.
AFVSS. No leukocytosis. LFT's WNL.
He is requesting opioids and declining other analgesics for abdominal pain.
Low suspicion for infectious cholecystitis as he is afebrile and without leukocytosis with negative weber's sign on exam. No plans for urgent surgery at this time.
Given his recurrent symptoms and abnormal US findings, would like to rule out biliary dyskinesia and recommend HIDA scan. This was offered to patient and he declined. Review of GI notes from prior admissions note recommendation for outpatient HIDA
as well, which he has not scheduled. In order to have an accurate HIDA, he will need to be off narcotics prior to testing. As he has not yet been administered narcotics, offered to check HIDA today. He refuses to have testing, stating that he would
rather just have narcotics and not continue work up of his gallbladder. Can plan HIDA as outpatient, if he is not agreeable to proceeding this admission. As opioid use can contribute to biliary dyskinesia and patient exhibiting drug seeking
behaviours will check UDS.
Ok for clear liquids, ADAT
Medical management as per primary team
== END 2024-04-26 15:19 | disposition left against medical advice (07) ==
LOC: EMR 09:30
PROVIDERS: Internal Medicine; EMERGENCY PHYSICIAN Emergency Medicine; FAMILY PHYSICIAN Internal Medicine
DX: K81.0 Acute cholecystitis (principal); N18.6 End stage renal disease; E87.5 Hyperkalemia; F17.200 Nicotine dependence, unspecified, uncomplicated; E11.22 Type 2 diabetes mellitus with diabetic chronic kidney disease; Z53.29 Procedure and treatment not carried out because of patient's decision for other reasons
CPT/HCPCS: 99285; 96374; 96375 ×2; 76700; 80053; 82010; 82962; 83605; 83690; 85027; 93005

== ENCOUNTER 2024-04-27 05:11 | Inpatient (IN) | payer OTHER, SELFPAY ==
[2024-04-26 21:04] VITALS: BP 179/118
[2024-04-27] VITALS (22 sets, daily range): BP systolic 150–230; BP diastolic 89–150; BMI 24.8; BMI 23.0
--- NOTE | 2024-04-27 01:27 | ED.GENMED ---
History of Present Illness
General
Chief Complaint: Abdominal Symptoms
Source: patient and previous hospital records (Multiple recent hospitalizations including yesterday where he signed out against medical vice shortly after arriving to the floor.)
Exam Limitations: none
Time Seen by Provider: 04/27/24 00:51
Nursing documentation reviewed up to this point in time: agreed with
History of Present Illness
History of Present Illness:
This is an unfortunate 34-year-old gentleman with complex past medical history including chronic pain, fully controlled insulin-dependent diabetes, end-stage renal disease/dialysis dependent, chronic abdominal pain, chronic pleural effusion. He has
history of polysubstance abuse, noncompliance with dialysis with multiple recent hospitalizations for recurrent pleural effusion, fluid overload, hyperkalemia or related to noncompliance with dialysis, previous hospitalizations for DKA and most
recently yesterday with complaints of acute on chronic abdominal pain with concern for potential cholecystitis with ultrasound showing thickened gallbladder wall without stones and a dilated common bile duct concerning for potential common bile duct
obstruction however LFTs within normal limits and CAT scan earlier this month showed no evidence of cholecystitis.
Hospitalizations have been complicated by chronic opioid seeking behavior and patient frequently leaves AMA when narcotic medications are not given.
He was evaluated by general surgery recommended HIDA scan and to hold off on narcotics. Patient was initially agreeable but then signed out.
He returns tonight with complaints of continued right-sided abdominal pain, nausea with intermittent vomiting which is also an ongoing chronic issue. He also notes some shortness of breath.
He was due for dialysis yesterday, April 26, which he did not receive.
He has insulin pump in place and states it is currently working but he is running out of insulin.
Past History
Past History
ED Past Medical History: Arrthythmia, CHF, HTN, IDDM, Renal failure (Dialysis M-W-F) and Other (ESRD, PE, Contipation, ESRD, TR, pulmonary hypertension, congestive heart failure, etc. chronic abdominal pain/gastroparesis)
ED Past Surgical History: Appendectomy and Other (Left AV fistula, biliary drain removed)
Patient has exhibited threatening behavior?: No
PSI?: No
Social History
Tobacco: Smoker
Alcohol: None
Drug: None
Personal: Single
Living: with family
Employment: Other
Family History
Family History: Other
Phy Exam
Physical Exam
Physical Exam:
GENERAL: 34-year-old male appears somewhat older than stated age, awake and alert, moderately blunted affect, mild resting tachypnea otherwise appears in no acute distress.
EYE: anicteric
NECK: Supple, nontender, no meningismus, no significant adenopathy.
ENT: oral mucosa is moist. No rhinorrhea.
CARDIAC: Regular rate and rhythm. no murmur.
LUNGS: Mild resting tachypnea, moderately decreased breath sounds right base otherwise clear to auscultation.
ABDOMEN: Mildly distended, mild to moderate ascites, moderate tenderness right upper quadrant without rebound or guarding, normal active bowel sounds.
NEUROLOGICAL: Alert and oriented x3, no focal neuro deficits. Gait is steady.
SKIN: Warm and dry, normal color, multiple superficial excoriations bilateral upper extremities. Mild venous stasis dermatitis bilateral lower extremities.
MUSCULOSKELETAL: No C/C/E. peripheral pulses are full and equal b/l. No palpable tenderness.
PSYCH: Mildly blunted affect.
Course
Orders/Labs/Results
Orders:
Orders
04/27/24 01:26
CR Chest - 2 Views Urgent
Comment:
Reason For Exam: SOB
04/27/24 01:35
Electrocardiogram (*1) Urgent
Reason for Study: Abdominal Pain
EKG- Treatment ONCE
04/27/24 02:59
Complete Blood Count/With Diff Urgent
Comprehensive Metabolic Panel Urgent
Lactic Acid Urgent
Lipase Urgent
04/27/24 03:09
Diphenhydramine [Benadryl] 50 mg .ROUTE .STK-MED ONE
Metoclopramide [Reglan] 10 mg .ROUTE .STK-MED ONE
04/27/24 03:10
Metoclopramide [Reglan] 10 mg IV NOW STA
04/27/24 03:11
Diphenhydramine [Benadryl] 25 mg 0.9% Sodium Chloride 50 ml [Nss] 50 ml IV ONCE
04/27/24 03:12
Diphenhydramine [Benadryl] 25 mg IV NOW STA
04/27/24 03:52
Calcium Gluconate 1,000 mg IV NOW STA
Dextrose 50%-Water [Dextrose 50% Syringe] 12.5 grams IV [id number] PRN
Dextrose 50%-Water [Dextrose 50% Syringe] 25 grams IV NOW STA
Insulin Human Regular [Novolin R] 10 units IV NOW STA
Sodium Bicarbonate 50 meq IV NOW STA
04/27/24 03:55
Sodium Zirconium Cyclosilicate [Lokelma] 10 gram PO NOW STA
04/27/24 04:17
Admit/Transfer Patient As Directed
Co-Sign Provider:
Level of Care: Inpatient admission
Assign to:: ICU
Physician / Group: hospitalist
Diagnosis: profound hyperkalemia, hyperglycemic crisis
Reason for Hospitalization: profound hyperkalemia, hyperglycemic crisis, missed HD since 04/23
Expected length of stay greater than two midnights?: Yes
ELOS- Estimated Length of Stay in days: 4
I certify the patient meets the requirements for IP care: Yes
04/27/24 04:24
Code Status As Directed
Resuscitation Status: Full Code
04/27/24 04:39
Acetone [B-Hydroxybutyrate] Urgent
pH - Venous Urgent
04/27/24 04:42
Lorazepam [Ativan] 0.5 mg IV NOW STA
04/27/24 04:46
0.9% Sodium Chloride [Nss (Preservative Free)] 0.25 ml IV NOW STA
04/27/24 Breakfast
NPO
Allow oral meds: Yes
Allow clear liquids: No
NPO with Ice Chips: No
04/27/24 06:58
Acetaminophen [Tylenol] 650 mg PO Q4HPRN PRN
Bisacodyl [Dulcolax] 10 mg RECTAL [id number] PRN
Docusate W/Senna [Senokot-S] 1 tablet PO BIDPRN PRN
Polyethylene Glycol Powder [Miralax] 17 grams PO DAILYPRN PRN
Reg Insulin 100 Units/100 ml [Novolin R Insulin Infusion] 100 units in 100 ml IV PER PROTOCOL
Initial dose in units/hr, then titrate:: 6
04/27/24 06:58
Consult Notification Routine
Specialty to Notify: Recycle Driver
Date consulting provider notified: 04/27/24
Time consulting provider notified: 07:03
Notified:: Provider
Consult Notification Routine
Specialty to Notify: Nephrology
Date consulting provider notified: 04/27/24
Time consulting provider notified: 07:06
Notified:: Provider
Consult Notification Routine
Specialty to Notify: Surgical
Date consulting provider notified: 04/27/24
Time consulting provider notified: 07:04
Notified:: Provider
Diabetes Management by Nurse Practitioner Routine
Consulting Provider: Giuliana Bailey
Was provider already notified?: No
Reason for Consult: Insulin Management
Date consulting provider notified: 04/27/24
Time consulting provider notified: 07:08
Notified:: Provider
Recycle Driver Consult Routine
Consulting Provider: Alicia Salter
Was physician already notified: No
Reason for consult: icu mgmt
NEPHROLOGY CONSULT Routine
Consulting Provider: Arnaldo Lindsey
Was physician already notified: Yes
Reason for consult: profound hyper k, missed HD since 6
SURGICAL CONSULT Routine
Consulting Provider: Elian Martínez
Was physician already notified: No
Reason for consult: abd pain, distended GB
Activity As Directed
Activity Level: Bathroom Privileges
Bedside Glucose Monitoring As Directed
Frequency: Q1H
Intake/ Output As Directed
Frequency: Per unit guidelines
Notify MD As Directed
Notify physician if: Nurse to contact provider when glucose reaches 250 to obtain orders for D5 0.[address] Non Medication Order As Directed
Physician Order: have pt remove insulin pump while on insulin gtt
Above order entered?: Yes
Vital Signs As Directed
Frequency: Per unit guidelines
Weight As Directed
Frequency: Once
DX Deep Vein Thrombosis Video Routine
04/27/24 08:00
Carvedilol [Coreg] 25 mg PO BID
Heparin 5,000 units SC Q8
04/27/24 08:22
Basic Metabolic Panel Q2
04/27/24 10:00
Basic Metabolic Panel Q2
Ampicillin/Sulbactam 3 G [Unasyn] 3 gm 0.9% Sodium Chloride 100 ml [Nss] 100 ml IV Q12
04/27/24 12:00
Basic Metabolic Panel Q2
04/27/24 14:00
Basic Metabolic Panel Q2
04/27/24 22:00
Oxcarbazepine [Trileptal] 150 mg PO HS
Trazodone [Desyrel] 25 mg PO HS
04/28/24 06:00
Complete Blood Count/With Diff IN AM
Abnormal Lab Results
04/27/24
02:59
RBC 3.81 L 10^6/uL
(4.70-6.10)
Hgb 11.4 L g/dL
(13.0-18.0)
Hct 34.8 L %
(39.0-52.0)
MCHC 32.8 L g/dL
(33.0-37.0)
RDW 18.3 H %
(11.5-14.5)
Potassium 7.0 H* mmol/L
(3.5-5.1)
Carbon Dioxide 20 L mmol/L
(22-30)
BUN 58 H mg/dl
(9-20)
Creatinine 8.3 H* mg/dL
(0.7-1.3)
Glucose 458 H* mg/dl
(70-99)
Alkaline Phosphatase 137 H U/L
(38-126)
04/27/24 02:59
04/27/24 02:59
Vital Signs
Initial and Last Documented VS:
Initial Vital Signs
Temp Pulse Resp BP Pulse Ox
99.2 F 95 19 179/118 96
04/26/24 21:04 04/26/24 21:04 04/26/24 21:04 04/26/24 21:04 04/26/24 21:04
Last Documented Vital Signs
Temp Pulse Resp BP Pulse Ox
97.9 F 104 22 199/113 96
04/27/24 07:28 04/27/24 08:49 04/27/24 06:23 04/27/24 08:49 04/27/24 06:23
MDM/Problems Addressed
Differential Diagnosis Includes:
Unfortunate 34-year-old gentleman with significant complex past medical history compounded by chronic noncompliance and chronic drug-seeking behavior.
He returns to the ED with complaints of continued right upper quadrant pain, continues to ask for pain medication and I have explicitly discussed our reasons why we will hold off on IV narcotic pain medicine.
Mild resting tachypnea noted initially and I have concern for fluid overload as he has missed dialysis, concern for hyperkalemia, concern for DKA, concern for cholecystitis.
Complains of intermittent nausea and vomiting but has had no vomiting since arrival to the ED, he is hungry and asking for something to eat and drink. This is all reassuring.
Will check labs, EKG and will plan to readmit to hospitalist service, patient will require dialysis this morning and will plan for HIDA scan today as already ordered and scheduled with yesterday's hospitalization.
Will continue to avoid narcotic pain medication.
Chronic conditions affecting care: DM, HTN, Arrhythmia, Psychiatric illness and Kidney disease
Acute Exacerbation and/or Progression of Chronic Illness: DM and Kidney disease
*EKG
Interpreted by ED Provider?: Yes
Comparison EKG: no changes (Unchanged from previous save for flipped T waves are more pronounced)
Rate: normal
Rhythm: sinus
Otley: normal axis
Interval: long QT
QRS Pattern: normal QRS
Ischemia: T-wave inversion
*Group Art Supervisor Interpretation
Rate: normal
Interpretation: normal
Rhythm: sinus
*Critical Care Note
Total Time (30-74mins, 75-104mins- exclusive of procedures): Not Applicable
ED Attending Note
-
Portions of this chart may have been created with voice recognition software.� Occasional wrong word or��sound alike� substitutions may have occurred due to the inherent limitations of voice recognition software.
Discharge Plan
Departure
Patient Disposition: Admit
Date of Disposition: 04/27/24
Time of Disposition: 04:12
Admit to: Telemetry
Admit to doctor: Betsyy
Presentation/result/management discussed w/ accepting MD/DO: Hospitalist
Condition: Fair
Discharge Problem:
acute on chronic hyperkalemia, poorly controlled IDDM, ESRD (end stage renal disease) on dialysis, acute on chronic abdominal pain, concern for acalculous cholecystitis, Medical non-compliance
Interventions
Interventions:
*Risk Screen - Suicide Last Done: 04/27/24 03:19
*General Assessment Last Done: 04/27/24 03:19
*Neglect/Abuse Screening Last Done: 04/27/24 03:19
ED- Fall Risk Assessment Last Done: 04/27/24 03:19
*ED COVID-19 Vaccine History Last Done: 04/27/24 03:19
*Nursing Disposition Last Done: 04/27/24 06:07
QB-Fdbzor-Pkckrtupjz Assessment Last Done: 04/27/24 03:19
Discharge Date and Time
Discharge Date/Time: 04/27/24 06:10
[2024-04-27 03:06] LABS: % Basophils 1.2 % (0-2); % Eosinophils 2.3 % (0-6); % Immature Granulocytes 0.5 % (0-0.5); % Lymphocytes 21.9 % (20.5-51.1); % Monocytes 5.4 % (1.7-9.3); % Neutrophils 68.7 % (42.2-75.2); Absolute Basophils 0.1 10^3/uL (0-0.2); Absolute Eosinophils 0.1 10^3/uL (0-0.7); Absolute Lymphocytes 1.3 10^3/uL (1.2-3.4); Absolute Monocytes 0.3 10^3/uL (0.1-0.6); Absolute Neutrophils 4.1 10^3/uL (1.4-6.5); Hematocrit 34.8 % (39.0-52.0); Hemoglobin 11.4 g/dL (13.0-18.0); Mean Corp Hgb Conc. 32.8 g/dL (33.0-37.0); Mean Corpuscular Hgb 29.9 pg (27.0-31.0); Mean Corpuscular Volume 91.3 fL (80.0-94.0); Mean Platelet Volume 9.7 fL (7.4-10.4); Nucleated Red Blood Cells % 0 % (-); Platelet Count 262 10^3/uL (130-400); Red Blood Cell Count 3.81 10^6/uL (4.70-6.10); Red Cell Dist. Width 18.3 % (11.5-14.5)
[2024-04-27] MEDS: REGLAN 10 MG IV (03:12)
[2024-04-27] MEDS: BENADRYL 25 MG IV (03:13)
[2024-04-27 03:23] LABS: Lactic Acid 1.1 mmol/L (0.7-2.0)
[2024-04-27 03:48] LABS: ALT (SGPT) < 10 U/L (0-50); AST (SGOT) 26 U/L (17-59); Albumin 4.1 g/dl (3.5-5.0); Alkaline Phosphatase 137 U/L (38-126); Blood Urea Nitrogen 58 mg/dl (9-20); Calcium 8.6 mg/dl (8.4-10.2); Carbon Dioxide 20 mmol/L (22-30); Chloride 99 mmol/L (98-107); Glucose 458 mg/dl (70-99); Lipase 58 U/L (23-300); Sodium 135 mmol/L (135-145); Total Bilirubin 0.8 mg/dl (0.2-1.3); eGFR 8.04
--- NOTE | 2024-04-27 04:27 | HPS.HSE ---
Family Physician
-
Family Physician: Casper Arroyo
Chief Complaint
-
Return to ER for abdominal pain
History of Present Illness
4M with complex PHX including ESRD on HD as below , most significantly chronic opioid seeking behavior and frequently leaves AMA when narcotic medications are not given.
He was admiited this AM with worsening acute on chronic abdominal pain, vomiting, diarrhea yesterday.
Denies hematemesis or coffee-ground emesis and hematochezia. Baseline abdominal pain is in the right upper quadrant. He reports he has had some chest pain but denies shortness of breath.
Denies fevers or chills. He does not have any other acute symptoms.
He was evaluated by general surgery recommended HIDA scan and to hold off on narcotics.
Patient was initially agreeable but then signed out.
He retuned to ER tonight with again right-sided abdominal pain, nausea with intermittent vomiting which is also an ongoing chronic issue. Reports or dialysis yesterday, April 26, which he did not receive.
Medical History
Past Medical History
Past Medical History: Reports Other (Anemia due to ESRD: Hb stable HX splenic infarct Skin-picking disorder Skin ulcer over AV fistula outflow vein s/p excision of ulcerated skin overlying left upper extremity AV fistula outflow vein with primary
skin closure on 04/16/24 Essential hypertension: cont Coreg/Norvasc Paroxysmal atrial fibri)
Additional Past Medical History:
Chronic and recurrent pleural effusion
ESRD on HD (frequently noncompliant)
DM1 with diabetic nephropathy, polyneuropathy, gastroparesis
Anemia due to ESRD
Chronic abdominal pain
h/o splenic infarct
Skin-picking disorder
Skin ulcer over AV fistula outflow vein s/p excision of ulcerated skin overlying left upper extremity AV fistula outflow vein with primary skin closure on 04/16/24
Essential hypertension
Paroxysmal atrial fibrillation
Anxiety
Depression
Tobacco abuse disorder
Alcohol abuse disorder
h/o polysubstance abuse
h/o pericardial effusion with impending cardiac tamponade
h/o pulseless electrical activity/cardiac arrest
h/o pulmonary embolism
Past Surgical History: Reports Other (as per HPI)
Social History
Tobacco: Smoker
Alcohol: None
Drug: None
Family History
Family History: Not pertinent
Allergies / Home Medications
Allergies reflects when Allergies were last updated in [place]
Home Medications with original date entered in [place]
Allergy/Medication List:
From 04/16/24 d/c summary (current med rec in process):
amlodipine 10 MG tablet
10 mg PO DAILY
metoclopramide HCl [Reglan] 10 mg Tablet
10 mg PO TIDPRN PRN (Reason: nausea)
oxcarbazepine 150 mg tablet
150 mg PO HS
trazodone 50 mg Tablet
25 mg PO HSPRN PRN (Reason: sleep)
Patient Own Insulin Pump
0 units SC .VIA PUMP
Patient Comments:
Novolog insulin
diphenhydramine HCl 25 mg Capsule
25 mg PO Q4HPRN PRN (Reason: itchiness) Qty: 30 0RF
furosemide 40 mg Tablet
40 mg PO BID
carvedilol 25 mg Tablet
25 mg PO BID
Allergies: Shellfish
Review of Systems
-
Constitutional: Reports No Symptoms
EENT: Reports No Symptoms
Respiratory: Reports No Symptoms
Cardiac: Reports No Symptoms
Abdomen/GI: Reports See HPI
: Reports No Symptoms
Musculoskeletal: Reports No Symptoms
Skin: Reports No Symptoms
Neurological: Reports No Symptoms
Endocrine: Reports No Symptoms
Hematologic/Lymphatic: Reports No Symptoms
Psych: Reports No Symptoms
Physical Exam
Vital Signs
Vital Signs
Temp Pulse Resp BP Pulse Ox
99.2 F 95 19 179/118 99
04/26/24 21:04 04/26/24 21:04 04/26/24 21:04 04/26/24 21:04 04/27/24 03:19
Physical Exam
General: No Apparent Distress and Conversant
HEENT: NormoCephalic and Anicteric
Respiratory: Clear
Cardiac: S1/S2
Breast: Deferred by me
GI: Soft, Non Tender (t RHC ) and Non Distended (mild distension)
Rectal: Deferred by Provider
Genito-urinary: Deferred by me
Musculoskeletal: No Edema
Skin: Warm and Dry
Neuro: AO x 3
Psych: Calm
Laboratory Results
-
04/27/24 02:59
Laboratory Results
Lactic Acid 1.1 mmol/L (0.7-2.0) 04/27/24 02:59
Total Bilirubin 0.8 mg/dl (0.2-1.3) 04/27/24 02:59
AST 26 U/L (17-59) 04/27/24 02:59
ALT < 10 U/L (0-50) 04/27/24 02:59
Alkaline Phosphatase 137 U/L (38-126) H 04/27/24 02:59
Lipase 58 U/L (23-300) 04/27/24 02:59
Data Reviewed
-
CT Scan: Report Reviewed by me
Ultrasound: Report Reviewed by me
Lab Data: Labs Reviewed by me
Old Records: Reviewed
Impression/Plan
-
Vital Signs
Temp Pulse Resp BP Pulse Ox
99.2 F 95 19 179/118 99
04/26/24 21:04 04/26/24 21:04 04/26/24 21:04 04/26/24 21:04 04/27/24 03:19
Data
Hgb 11.4
K 7
CO2 20
BUN 48
Cr 8.3
BG 458
AG 16
Pending BHB
Abd U/S:
1) There is thickening of the incompletely distended gallbladder wall to as much is 9 mm suggesting possible cholecystitis despite the absence of intraluminal calculi.
2) There is mild dilatation of the common bile duct to 8 mm suggesting possible distal biliary obstruction
3) Hepatomegaly
4) There is right-sided pleural effusion
Last hospitalist admission:
ASSESSMENT & PLAN
Profound life threatening hyperkalemia
ESRD: missed HD since 04/23/24
pt uses insulin pump: basal rate is 0.5U/hr and that he boluses himself 30-35U daily.
- s/p ER hyperkalemic Tx
- currently with hyperkalemia, will need HD today
- pt states last HD was on 04/23/24
- Renal consulted
Hyperglycemic crisis
Eval for DKA
AG 16
DM1 Last A1C 9.1% on 04/15/24
- insulin gtt
- check BHB
Rt sided abdominal pain:
-acute on chronic
-possible acute cholecystitis on abdominal ultrasound
- LFTs
- NPO except Meds plus gentle IV
- IV Unasyn
- HIDA vs MRCP ??
Other problems:
Anemia due to ESRD: Hb stable
HX splenic infarct
Skin-picking disorder
Skin ulcer over AV fistula outflow vein s/p excision of ulcerated skin overlying left upper extremity AV fistula outflow vein with primary skin closure on 04/16/24
Essential hypertension: cont Coreg/Norvasc
Paroxysmal atrial fibrillation: cont Coreg
Anxiety
Depression
Tobacco abuse disorder
Alcohol abuse disorder
HX polysubstance abuse
HX pericardial effusion with impending cardiac tamponade
HX pulseless electrical activity/cardiac arrest
HX pulmonary embolism
DVT Px: SQH
Code: Full
ICU
[2024-04-27] MEDS: SODIUM BICARBONATE 50 MEQ IV (04:43)
[2024-04-27] MEDS: LOKELMA 10 GRAM PO (04:44)
[2024-04-27] MEDS: DEXTROSE 50% SYRINGE 25 GRAMS IV (04:44)
[2024-04-27] MEDS: CALCIUM GLUCONATE 1000 MG IV (04:44)
[2024-04-27 04:45] LABS: pH - Venous 7.26 (7.32-7.43)
[2024-04-27] MEDS: NOVOLIN R 10 UNITS IV (04:45)
[2024-04-27] MEDS: NSS (PRESERVATIVE FREE) 0.25 ML IV (05:03)
[2024-04-27] MEDS: ATIVAN 0.5 MG IV (05:03)
[2024-04-27 05:25] LABS: B-Hydroxybutyrate 0.26 mmol/L (0.02-0.27)
--- NOTE | 2024-04-27 07:11 | CON.INTV ---
Consultation
Consultation Request
Date/Time Consultation Requested: 04/27/24
Date/Time Consultation Performed: 04/27/24
Performing Provider: Gaetano
Reason for Consultation: ICU
Medical History
-
History of Present Illness:
Patient is a 34-year-old male with previous history of diabetes, end-stage renal disease, cardiac arrest, substance abuse disorder, chronic abdominal pain presenting with acute on chronic abdominal pain, vomiting and diarrhea that started day prior
to admission. He denies any hematemesis, hematochezia. Localized pain at the right upper quadrant. Ultrasound performed demonstrating possible acute cholecystitis. Had initially signed out of ER and then returned. On labs, he has hyperglycemia
with severe hyperkalemia. He is admitted to ICU for potential life-threatening arrhythmia, and insulin drip.
Past Medical History
Past Medical History: Other (see list below)
Social History
Tobacco: Non-smoker
Alcohol: None
Drug: None
Family History
Family History: Reviewed & Not Pertinent
Allergies / Home Medications
Allergies
Allergy/AdvReac Type Severity Reaction Status Date / Time
shellfish derived Allergy Hives Verified 04/26/24 10:02
Home Medications
�Medication �Instructions �Recorded �Confirmed �Last Taken �Type
amlodipine 10 mg tablet 10 mg PO DAILY Blood pressure 04/22/21 04/26/24 04/25/24 History
metoclopramide HCl 10 mg tablet 10 mg PO TIDPRN PRN nausea 04/07/23 04/26/24 04/25/24 History
(Reglan)
oxcarbazepine 150 mg tablet 150 mg PO HS Neurological Condition 07/24/23 04/26/24 04/25/24 History
trazodone 50 mg tablet 25 mg PO HS Sleep 01/05/24 04/26/24 04/25/24 History
Patient Own Insulin Pump 0 units SC .VIA PUMP diabetes 02/13/24 04/26/24 04/26/24 History
carvedilol 25 mg tablet 25 mg PO BID Blood Pressure 04/12/24 04/26/24 04/25/24 History
furosemide 40 mg tablet 40 mg PO BID@0800,1600 Fluid 04/12/24 04/26/24 04/25/24 History
Retention/Swelling
Review of Systems
-
History Source: Patient
All other systems: Negative unless noted
Vitals / Labs / Diagnostic Testing
Vital Signs
Temp Pulse Resp BP Pulse Ox
98.1 F 109 22 190/131 96
04/27/24 06:28 04/27/24 06:23 04/27/24 06:23 04/27/24 06:23 04/27/24 06:23
Lab Data
04/27/24 02:59
Diagnostic Testing:
Physical Exam
-
HEENT: Normocephalic and Moist Mucous Membranes
Cardiovascular: S1/S2 and Regular Rhythm
Respiratory: Clear and Non-Labored Respirations
GI: Soft, Non Distended and Non Tender
Neurology: Awake, Alert, Oriented, AO x 3 and No Motor Deficits
Skin: Warm, Dry and Other (skin lesions throughout, skin picking)
General: Comfortable and Other (NAD)
Assessment
-
Patient is a 34-year-old male with previous history of diabetes, end-stage renal disease, cardiac arrest, substance abuse disorder, chronic abdominal pain presenting with acute on chronic abdominal pain, vomiting and diarrhea that started day prior
to admission. He denies any hematemesis, hematochezia. Localized pain at the right upper quadrant. Ultrasound performed demonstrating possible acute cholecystitis. Had initially signed out of ER and then returned. On labs, he has hyperglycemia
with severe hyperkalemia (7.0) without EKG changes. He is admitted to ICU for potential life-threatening arrhythmia, and insulin drip.
Acute cholecystitis on abdominal ultrasound
Acute on chronic abdominal pain
Acute hyperkalemia, 6.4 -> 7.0
DM type II, pooly controlled
Recent admission for Pericardial effusion/AVF ulceration
Chronic conditions CLIENT RESOLUTION SPECIALIST:
s/p Left upper extremity excision of ulceration skin over AV fistula 04/15/24
Status post PEA/Asystole 03/13/24
PAF : briefly after code on 03/13/24
ESRD on HD MWF
Insulin-dependent diabetes mellitus with subcutaneous insulin pump
Recurrent DKA with insulin noncompliance
Chronic right-sided pleural effusion since April 2023
hypertension
pulmonary hypertension
alcohol use disorder
anxiety/depression
history of polysubstance abuse
tobacco use disorder
chronic HFpEF
history of MRSA
Chronic abdominal pain
h/o splenic infarct
Skin-picking disorder
Plan:
Abd pain, asking for pain meds
Has drug seeking behavior
Not on home pain meds
Can add tylenol PRN
Hemodynamically stable
HyperK noted, treated
Repeat BMP improved
Prior ECHO reviewed
Hyperglycemia, not clear in DKA
Given 10 units of insulin in ER, not started on drip
Can likely just resume home meds
SS coverage
RUQ pain
US with possible acute tip
Surg consult pending
Resume on HD
Renal consult
Would hold off on antibiotics at this time.
No evidence of leukocytosis, and remains afebrile.
Continue to trend WBC and fever curve
Resume diet as tolerated pending surgical eval
Aspiration precautions
Incentive spirometer encouraged, PT/OT
OOB
DVT ppx
Can likely transfer to floors if K resolved and no plans for surgery.
Diagnostic Data
CTA Chest 03-31-2024:
1. No evidence of pulmonary embolism or thoracic aortic dissection.
2. Moderate pericardial effusion, measuring up to 1.9 cm in thickness.
3. Moderate right pleural effusion. Airspace consolidation at the right lung base which may represent subsegmental atelectasis or pneumonia.
4. Small left pleural effusion. Mild left basilar airspace consolidation.
5. Acute fractures involving the right third through fifth ribs near the mid axillary line.
6. Wedge-shaped areas of hypoenhancement within the spleen, which are new compared to prior abdominal pelvic CT dated 02/22/2024, likely representing splenic infarcts.
7. Dilated tortuous venous structure within the left retropectoral axillary region, partially imaged on the current study, of unknown etiology. Consider venous ultrasound of the left upper extremity for further characterization.
CR 03-30-2024: Moderate right pleural effusion, unchanged compared to prior chest x-ray. Right lower lobe airspace disease may also be present.
[facility] 03/31/24- 1. Successful placement of a 6 Vincentian pericardial drain via apical approach with 385 mL of bloody/maroon fluid evacuated and reduction of pericardial pressure from 21 mmHg to 7 mmHg.
2. Pericardial fluid has been sent for laboratory analysis.
ECHO 04/02/24- Normal left ventricular size and systolic function without regional wall motion abnormality. Dilated hypocontractile right ventricle. Mild tricuspid regurgitation. Estimated right ventricular systolic pressure of 46mmHg. Small
pericardial effusion (0.8cm) predominantly posteriorly and no hemodynamic significance.
-----
Critical Care time 50 mins -- The patient is admitted for acute critical illness for the treatment of vital organ failure and/or prevention of further life-threatening conditions. Total care includes time spent in review of history, physical exam,
medications, hemodynamic/ventilator parameters, laboratory data, imaging and discussion with house staff, pharmacy, respiratory therapy, mental telepathist, and nursing.
[2024-04-27 08:31] LABS: Glucose - Point of Care 137 mg/dl (70-99)
--- NOTE | 2024-04-27 08:36 | W.CON.NEPH ---
Consultation
-
Date/Time Consultation Requested: April 27, 2024 7 AM
Date/Time Consultation Performed: April 27, 2024 8 AM
Requesting Provider: Dr. Rodriguez
Performing Provider: Dr. Lindsey
Reason for Consultation: ESRD
Medical History
-
Chief Complaint: End-stage renal
History of Present Illness:
The patient is a 34-year-old man with diabetes mellitus type 1 on insulin, blindness, and end-stage renal disease on hemodialysis MWF. He was recently in the hospital. He has a notorious history of noncompliance and signing out AMA and does not
regularly go to his own hemodialysis unit but instead shows up to the emergency room with complaints of abdominal pain seeking narcotics for pain relief. He is maintained chronically on carvedilol for his hypertension is maintained on an insulin
pump for his diabetes. He says that he received a full treatment on Friday of last week as well as Friday. On Friday, he had to continue to go to the bathroom and ultimately stop dialysis early. He believes that he may have only gotten 1 hour
of dialysis on Friday. He does report some mild diarrhea. He was in the emergency room on April 21 with abdominal pain and was discharged. The pain persisted and he returned to the emergency room on April 26. Before getting dialysis he again left
AMA. He then returned last night with persistent abdominal pain. His potassium had risen now to 7.0. He does have chronic abdominal pain to begin with felt to be due to gastroparesis.
Past Medical History
end-stage renal disease on hemodialysis
PE
constipation
CHF
pleural effusions
depression/ anxiety
polysubstance abuse
Diabetes mellitus type I
Left upper extremity AV fistula revision for ulcers
Pulmonary hypertension
pericardial effusion with impending cardiac tamponade had pericardiocentesis 385 cc exudative fluid on 03/31, history of right pleural effusion status post thoracentesis 04/04/2024, Hx cardiac arrest Hx PE, ESRD on HD Friday,,
paroxysmal A-fib, splenic infarct, diabetes mellitus
biliary stent 2020
Past Surgical History: Other (LUE AVF Appendectomy PD Catheter placed / removed)
Social History
Tobacco: Smoker
Alcohol: Occasional
Drug: Other (h/o polysub abuse)
Family History
Family History: Not Pertinent
Allergies / Home Medications
Allergy/AdvReac Type Severity Reaction Status Date / Time
shellfish derived Allergy Hives Verified 04/26/24 10:02
�Medication �Instructions �Recorded �Confirmed �Type
amlodipine 10 mg tablet 10 mg PO DAILY Blood pressure 04/22/21 04/26/24 History
metoclopramide HCl 10 mg tablet 10 mg PO TIDPRN PRN nausea 04/07/23 04/26/24 History
(Reglan)
oxcarbazepine 150 mg tablet 150 mg PO HS Neurological Condition 07/24/23 04/26/24 History
trazodone 50 mg tablet 25 mg PO HS Sleep 01/05/24 04/26/24 History
Patient Own Insulin Pump 0 units SC .VIA PUMP diabetes 02/13/24 04/26/24 History
carvedilol 25 mg tablet 25 mg PO BID Blood Pressure 04/12/24 04/26/24 History
furosemide 40 mg tablet 40 mg PO BID@0800,1600 Fluid 04/12/24 04/26/24 History
Retention/Swelling
Review of Systems
-
Abdominal pain, lower extremity edema
All other systems: Negative unless noted
Physical Exam
Vital Signs
Vital Signs
Temp Pulse Resp BP Pulse Ox
97.9 F 109 22 190/131 96
04/27/24 07:28 04/27/24 06:23 04/27/24 06:23 04/27/24 06:23 04/27/24 06:23
Lab Results
WBC 6.0 10^3/uL (4.8-10.8) 04/27/24 02:59
RBC 3.81 10^6/uL (4.70-6.10) L 04/27/24 02:59
Hgb 11.4 g/dL (13.0-18.0) L 04/27/24 02:59
Hct 34.8 % (39.0-52.0) L 04/27/24 02:59
Plt Count 262 10^3/uL (130-400) 04/27/24 02:59
eGFR 8.04 04/27/24 02:59
Albumin 4.1 g/dl (3.5-5.0) 04/27/24 02:59
Physical Exam
Patient is awake alert oriented and in no distress. Mood and affect were pleasant, insight and judgment were good. Pupils are equal round and reactive to light, extraocular movements are intact, sclera were anicteric. Hearing was normal, ears and
nose are intact. Oropharynx was clear. Neck was supple with trachea midline and no thyromegaly. Heart was regular rate and rhythm without rubs. Lower extremities with 3+ edema. Lungs were clear to auscultation bilaterally and with normal
excursion. Abdomen was soft, nontender, with normal active bowel sounds, and no hepatosplenomegaly. Skin was without rash and with normal turgor. There were scattered excoriations.
Data Reviewed
-
Radiology: Image Personally Visualized and interpreted (Chest x-ray on 04/27/2024 by my reading shows right pleural effusion, cardiomegaly)
Medical Tests (Nuc Med, Echo etc): Image Personally Visualized and interpreted (EKG on 04/27/2024 by my reading shows normal sinus rhythm rightward axis, anterior T wave abnormalities, prolonged QT)
Labs: Labs Reviewed by me (WBC 6.0, hemoglobin 11.4, platelets 262, sodium 135, potassium 7.0, carbon dioxide 20, BUN 58, creatinine 8.3, glucose 458, bilirubin 0.8, AST 26, lipase 58)
Assessment/Plan
-
Impression:
ESRD (MWF) last full HD last 04/21/2024
Status post PEA/Asystole 03/13/24
PAF : briefly after code on 03/13/24
Chronic noncompliance with dialysis
ESRD MWF ([facility]),
left UE AVF
DKA hx/metabolic acidosis
Hyperkalemia
Hyponatremia
Chronic Abdominal Pain / Gastroparesis
Pulmonary hypertension
Polysubstance abuse
Anxiety
History of biliary drain
Anemia
Right pleural effusion--s/p R thoracentesis for pleural effusion with 1.8L transudate 02/17/24
History of pericardial effusion requiring pericardial drain
Plan:
Dialysis today, 3.75 hours
Surgery following, possible HIDA off narcotics
May require dialysis again tomorrow
--- NOTE | 2024-04-27 08:42 | W.PN.NEPH.HD ---
Assessment
-
Seen on HD. abdominal pain. VSS, BP high. Access pressures slightly high
Progress Note - Hemodialysis
-
Date of Service: April 27, 2024
Duration: 45 minutes and 3 hours
Potassium Bath: 2
Calcium Bath: 2.5
Opti-Dialyzer: 160
Ultrafiltration: Other (4kg)
Blood Flow: 400
Dialysate Flow: 600
Heparin: 500x2
EPO: no
[2024-04-27] MEDS: COREG 25 MG PO (08:49)
[2024-04-27 09:22] LABS: Blood Urea Nitrogen 58 mg/dl (9-20); Calcium 8.5 mg/dl (8.4-10.2); Carbon Dioxide 18 mmol/L (22-30); Chloride 102 mmol/L (98-107); Estimated Creatinine Clearance 12 ml/min; Glucose 122 mg/dl (70-99); Potassium 5.9 mmol/L (3.5-5.1); Sodium 137 mmol/L (135-145); eGFR 7.71
--- NOTE | 2024-04-27 10:15 | PN.DE.MGMTRT ---
Insulin Management
- -
04/27/2024: Diabetes Management Consult:
Patient admitted 04/27 with abdominal pain, missed dialysis on 04/26. Pt is well known to me from recurrent hospital admissions that have all resulted in leaving AMA. He has presented to the hospital 6 times in February, 8 times in March and 4 times in
April, most times he does sign out AMA.
Past medical history ETOH use disorder, recurrent DKA, ESRD on HD (MWF), Chronic Abdominal Pain, Gastroparesis, Pulmonary hypertension, Polysubstance abuse
Anxiety, Anemia and T1DM for 18 years.
Patient currently receiving HD, sleeping.
Last A1C 9.7% on 02/13. cr 3.6 eGFR 21.91.
Prior to admission was using a Medtronic 770 pump with NovoLog insulin and Guardian sensor. Patient stated 04/26 that he is low on insulin; he does not have supplies for his insulin pump. His pump has been removed.
Previous admissions Patient has been receiving 5 units Lantus daily in AM. Will restart 5 units lantus now with novolog low corrective insulin Q 6 hours.
Patient is NPO at this time. If diet restarted should start 1800 calorie diet. Will also add 5 units novolog AC.
Discussed with patients nurse.
Diabetes History
- -
Type of Diabetes: 1
Pre-Admission Diabetes Regimen
04/27/24 04/27/24
02:59 08:22
Creatinine 8.3 H* 8.6 H*
Insulin Pump Settings
IP Diabetes Regimen
04/27/24 04/27/24 04/27/24
02:59 08:19 08:22
Glucose 458 H* 122 H
POC Glucose 137 H
Patient Education
[2024-04-27] MEDS: LANTUS 0.0500000000000000028 UNITS SC (11:06)
--- NOTE | 2024-04-27 11:28 | PTCARENOTE ---
pt frequently requesting for pain Meds and benzos this am right after shift change , pt supervisor contact lens light 5x in 30 min , Dr Lopes notified, pt co severe abdominal pain , tender to deep palpation , abd is round , soft , NST on monitor , chemistry was
drawn at 0830 , his glucose was 134 at 0800 insulin gtt held until results of chemistry at 0830 , his glucose was 122 , his insulin pump was taken off , he was seen by Diabetic [employer] and given 5units of Lantus as ordered at 1100 , incontinent of stool
, NPO status until seen by surgery, pt started HD at 0800 and is now requesting to go AMA , HD nurse notified Dr Lindsey , he has only 2 hours of HD , Dr Kapoor and Dr Lopes notified of request for AMA , HD is currently being removed now
[2024-04-27 11:37] LABS: Glucose - Point of Care 119 mg/dl (70-99)
--- NOTE | 2024-04-27 11:47 | PTCARENOTE ---
Addendum entered by Romi Marquez RN 04/27/24 11:54:
pt has had 24 ED visits / admissions for 2023
Original Note:
pt left AMA at 11:47 , stated he is in pain and wanted 'pain Meds and antianxiety Meds and is being ignored ' , I told him to that I did notify the physicians relating to his pain, I asked him to reconsider to and to at least wait until his HD is
complete and he again is refusing to stay for treatment , peripheral IV removed prior to pt leaving hospital
--- NOTE | 2024-04-27 13:13 | CM ---
CM following re: discharge planning.
Discussed in rounds, reviewed pt's chart, met with pt.
Pt is a 34 year old male, admitted with primary dx of DKA.
Pt is well know to this CM from previous admissions. Pt stated he lives with mother and father in a 2SH, has been on HD treatment for 3 years, [facility], [facility] chair time, [employer] transport. Pt denied being non-compliant with care including
using insulin pump, reporting to HD center on a regular schedule. Pt expressed his agreement to meet with [facility] team. A referral to [facility] made.
CM attempted to have an open conversation with the pt regarding his health care in general and ways of taking care for himself and pt stated he is 'not ready to talk to me right now and requested to come back. CM respectfully left the room promising
to revisit pt again.
Per RN pt left AMA
PCP: Casper Arroyo
Pharmacy: [facility].
Pt left AMA.
--- NOTE | 2024-04-27 13:23 | W.PN.UPDATE ---
Update Note
Progress Note Update
The patient was admitted earlier today. Before I could see the patient today for the first time for this hospitalization he left AMA.
[2024-04-29 00:38] LABS: Amphetamines, Serum Negative ng/mL (Cutoff 20); Barbiturates, Serum Negative ng/mL (Cutoff 50); Benzodiazepines, Serum Negative ng/mL (Cutoff 50); Buprenorphine, Serum Negative ng/mL (Cutoff 1); Cannabinoids, Serum Negative ng/mL (Cutoff 20); Cocaine Metabolites, Serum Negative ng/mL (Cutoff 20); Methadone, Serum Negative ng/mL (Cutoff 25); Methamphetamine, Serum Negative ng/mL (Cutoff 20); Opiates, Serum Negative ng/mL (Cutoff 20); Oxycodone, Serum Negative ng/mL (Cutoff 20); Phencyclidine, Serum Negative ng/mL (Cutoff 10)
== END 2024-04-27 11:45 | disposition left against medical advice (07) | DRG 637 ==
LOC: ICU 05:11
PROVIDERS: Nurse Practitioner Family; ADMITTING PHYSICIAN Internal Medicine; ATTENDING PHYSICIAN Internal Medicine; CONSULT PHYSICIAN Internal Medicine; CONSULT PHYSICIAN Specialist; EMERGENCY PHYSICIAN Emergency Medicine; FAMILY PHYSICIAN Internal Medicine
PROC: 5A1D70Z Performance of Urinary Filtration, Intermittent, Less than 6 Hours Per Day (ICD-10-PCS; 2024-04-27)
DX: E10.10 Type 1 diabetes mellitus with ketoacidosis without coma (principal); N18.6 End stage renal disease; I12.0 Hypertensive chronic kidney disease with stage 5 chronic kidney disease or end stage renal disease; E10.22 Type 1 diabetes mellitus with diabetic chronic kidney disease; D63.1 Anemia in chronic kidney disease; I48.0 Paroxysmal atrial fibrillation; Z79.4 Long term (current) use of insulin; Z99.2 Dependence on renal dialysis; Z76.5 Malingerer [conscious simulation]
CPT/HCPCS: 71046; 80048; 80053; 80307; 82010; 82800; 82962; 83605; 83690; 85025; 93005; 96374; 96375; 99285; P9047

== ENCOUNTER 2024-06-10 19:21 | Emergency (ER) | payer OTHER, SELFPAY ==
[2024-06-10 19:23] VITALS: BP 105/68
--- NOTE | 2024-06-10 20:24 | ED.GENMED ---
History of Present Illness
General
Chief Complaint: Abdominal Pain
Time Seen by Provider: 06/10/24 20:23
History of Present Illness
History of Present Illness:
HPI: The patient presents with abdominal pain. He states he was at another hospital 'a few weeks ago'. He has had several visits here and occasionally signed out AMA. During my initial interview with the patient, the patient requested narcotic
analgesia. I was aware of his past medical history and documented concerns for behavior. This appears to be a chronic pain issue for him and have told the patient that I will perform an evaluation including imaging and lab work but will not give
narcotic analgesia. He then said he is going to leave. He did have dialysis today.
EXAM:
GENERAL: Well appearing but in mild distress
HEENT: Moist oral mucosa
ABDOMEN: Soft with no peritoneal signs, mild to moderate diffuse tenderness with mild distention
NEUROLOGIC: Excellent strength all extremities, no coordination deficits
PSYCHIATRIC: Appropriate mental status, normal insight and judgement
EXTREMITIES: Mild edema to the lower extremities
SKIN: Reid skin discoloration, skin picking/ulcers
TIME OF INITIAL ENCOUNTER: 9:05 PM
NUMBER AND COMPLEXITY OF PROBLEMS ADDRESSED AT THE ENCOUNTER
� Chronic conditions affecting care: Chronic and recurrent pleural effusions, ESRD on HD frequently noncompliant, IDDM, anemia of chronic kidney disease, chronic abdominal pain,
� Acute Exacerbation and/or Progression of Chronic Illness: This is an acute problem
� Differential Diagnosis includes: Cholecystitis, bowel obstruction, exacerbation of chronic pain, pancreatitis, ascites
AMOUNT AND/OR COMPLEXITY OF DATA TO BE REVIEWED AND ANALYZED
� I performed an independent evaluation of and my interpretation is:
EKG:
CT:
X-rays:
Laboratory Studies:
Other:
� Review of other/old records: I reviewed records. I reviewed the ED note from April 12, 2024 and at that time there was concern for is requesting narcotics given his chronic pain. He has missed dialysis sessions in the past.
He has signed out AGAINST MEDICAL ADVICE multiple times in the past and there was concern for drug-seeking behavior noted on note from 04/01/2024. When he came to the emergency department with abdominal pain on 04/21/2024, the patient was given
Tylenol, Reglan and Benadryl. Upon the last admission from the ED on 04/27/2024, the patient had signed out AMA that day.
� Clinical information was obtained by an independent historian: None needed
� Prescriptions/Medications Considered but not given: I offered IV Tylenol, Reglan, Benadryl as previously given however the patient refuses
� Further testing considered but not performed: Patient refused further workup
RISK OF COMPLICATIONS AND/OR MORBIDITY OR MORTALITY OF PATIENT MANAGEMENT
� Social determinants of health affecting care: Lives at home
� Discussion with other providers:
� Escalation of care including admission/observation vs risk of discharge considered: Although I did offer medical evaluation, once he heard that we were not giving narcotic analgesia, he refused any further evaluation and left
abruptly. He did not sign AMA forms.
Past History
Past History
ED Past Medical History: Arrthythmia, CHF, HTN, IDDM, Renal failure and Other
ED Past Surgical History: Appendectomy and Other (Left AV fistula, biliary drain removed)
Patient has exhibited threatening behavior?: No
PSI?: No
Social History
Tobacco: Smoker
Alcohol: None
Drug: None
Personal: Single
Living: with family
Employment: Other
Family History
Family History: Other
Phy Exam
Physical Exam
Physical Exam:
See HPI
Course
Orders/Labs/Results
Orders:
Orders
06/10/24 20:33
Complete Blood Count/With Diff Urgent
Comprehensive Metabolic Panel Urgent
Lipase Urgent
Vital Signs
Initial and Last Documented VS:
Initial Vital Signs
Temp Pulse Resp BP Pulse Ox
97.8 F 88 19 105/68 91
06/10/24 19:23 06/10/24 19:23 06/10/24 19:23 06/10/24 19:23 06/10/24 19:23
Last Documented Vital Signs
Temp Pulse Resp BP Pulse Ox
97.8 F 88 19 105/68 91
06/10/24 19:23 06/10/24 19:23 06/10/24 19:23 06/10/24 19:23 06/10/24 19:23
*Critical Care Note
Total Time (30-74mins, 75-104mins- exclusive of procedures): Not Applicable
ED Attending Note
-
Portions of this chart may have been created with voice recognition software.� Occasional wrong word or��sound alike� substitutions may have occurred due to the inherent limitations of voice recognition software.
Discharge Plan
Departure
Patient Disposition: Against Medical Advice
Date of Disposition: 06/10/24
Time of Disposition: 21:10
Discharge Problem:
Abdominal pain
Instructions: Abdominal Pain
Prescriptions:
No Action
amlodipine 10 MG tablet
10 mg PO DAILY
metoclopramide HCl [Reglan] 10 mg Tablet
10 mg PO TIDPRN PRN (Reason: nausea)
oxcarbazepine 150 mg tablet
150 mg PO HS
trazodone 50 mg Tablet
25 mg PO HS
Patient Own Insulin Pump
0 units SC .VIA PUMP
Rx Instructions:
Novolog insulin
furosemide 40 mg Tablet
40 mg PO BID@0800,1600
carvedilol 25 mg Tablet
25 mg PO BID
Activity Restrictions/Additional Instructions:
Return here if worse. Follow-up with your doctors.
Interventions
Interventions:
*Risk Screen - Suicide Last Done: 06/10/24 19:23
*General Assessment Last Done: 06/10/24 19:23
*Neglect/Abuse Screening Last Done: 06/10/24 19:23
*ED COVID-19 Vaccine History Last Done: 06/10/24 19:23
Discharge Date and Time
Print Language: MALAWIAN
== END 2024-06-10 22:34 | disposition left against medical advice (07) ==
LOC: EMR 19:21
PROVIDERS: EMERGENCY PHYSICIAN Emergency Medicine; FAMILY PHYSICIAN Internal Medicine
DX: R10.9 Unspecified abdominal pain (principal); I13.2 Hypertensive heart and chronic kidney disease with heart failure and with stage 5 chronic kidney disease, or end stage renal disease; I50.9 Heart failure, unspecified; F17.200 Nicotine dependence, unspecified, uncomplicated; Z99.2 Dependence on renal dialysis
CPT/HCPCS: 99282

== ENCOUNTER 2024-06-11 04:15 | Inpatient (IN) | payer OTHER, SELFPAY ==
[2024-06-11] VITALS (31 sets, daily range): BP systolic 92–178; BP diastolic 60–97
[2024-06-11 00:42] LABS: Glucose - Point of Care > 600 mg/dl (70-99)
--- NOTE | 2024-06-11 00:48 | ED.GENMED ---
History of Present Illness
<MARCEL Keenan - Last Filed: 06/11/24 03:55>
General
Chief Complaint: Alcohol Problem
Time Seen by Provider: 06/11/24 00:35
History of Present Illness
History of Present Illness:
Pt is a 34 y/o male with PMHx of ESRD on dialysis, uncontrolled type 1 DM, HTN, CHF, and a-fib presenting for abdominal pain. Patient is visibly intoxicated and yelling at staff that he needs pain medicine. He states he drank half a bottle of rum
before coming to the ED. Patient was seen in the ED 2 hours ago complaining of abdominal pain. Patient was requesting narcotics and refused IV Tylenol, Reglan, and Benadryl then signed out AMA. He states he drank the alcohol after leaving the ED.
Patient has been seen in this ED multiple times over the course of the past couple months requesting narcotics for chronic pain and signing out AMA.
Past History
<MARCEL Keenan - Last Filed: 06/11/24 03:55>
Past History
ED Past Medical History: Arrthythmia, CHF, HTN, IDDM, Renal failure and Other
ED Past Surgical History: Appendectomy and Other (Left AV fistula, biliary drain removed)
Patient has exhibited threatening behavior?: No
PSI?: No
Social History
Tobacco: Smoker
Alcohol: None
Drug: None
Personal: Single
Living: with family
Employment: Other
Family History
Family History: Other
Phy Exam
<MARCEL Keenan - Last Filed: 06/11/24 03:55>
Physical Exam
Physical Exam:
GENERAL: Patient appears visibly intoxicated yelling at staff.
EYE: Refuses to open eyes for exam
Throat: Airway intact, no exudates
NECK: Supple, no significant adenopathy.
CARDIAC: Regular rate and rhythm .
LUNGS: Scattered wheezing, no acute respiratory distress
ABDOMEN: Firm, distended, nontender, no cvat
NEUROLOGICAL: Patient is AAOx3 and appears visibly intoxicated. He follows directions occasionally but often refuses to cooperate.
SKIN: Warm and dry, skin intact.
MUSCULOSKELETAL: B/l LE edema. Dorsalis pedis pulses 2+.
PSYCH: Patient disoriented.
Scores
<MARCEL Keenan - Last Filed: 06/11/24 03:55>
Withdrawal Assessment of Alcohol
Withdrawal Assessment Completed?: Not applicable
Course
<MARCEL Keenan - Last Filed: 06/11/24 03:55>
Orders/Labs/Results
Orders:
Orders
06/11/24 01:10
Alcohol Urgent
Complete Blood Count/With Diff Urgent
Comprehensive Metabolic Panel Urgent
06/11/24 02:42
Insulin Human Regular [Novolin R] 7 units IV NOW STA
06/11/24 02:46
0.9% Sodium Chloride 1000 ml [Nss] 1,000 ml IV BOLUS
06/11/24 02:48
IV Insert/Care/Rem.- Treatment PRN
06/11/24 03:07
B-Hydroxybutyrate Urgent
Glycohemoglobin (HgbA1c) Urgent
Prothrombin Time Urgent
Venous Blood Gas Urgent
%Oxygen/Room Air: ra
06/11/24 03:14
Admit/Transfer Patient As Directed
Co-Sign Provider:
Level of Care: Inpatient admission
Assign to:: ICU
Physician / Group: Martin
Diagnosis: Acute Alcohol Intoxication, Hyperglycemia, ESRD on HD
Reason for Hospitalization: Acute Alcohol Intoxication, Hyperglycemia, ESRD on HD
Expected length of stay greater than two midnights?: Yes
ELOS- Estimated Length of Stay in days: 4
I certify the patient meets the requirements for IP care: Yes
PRN Pain Medication Management As Directed
May give lesser potent ordered pain med per pt: Yes
preference::
Protocol:: Medication orders for pain may be administered in a
manner that supports deferring to patient preference
when the pt is:
- Requesting an ordered lesser potent pain medication.
Least to most potent pain medications are defined
as: acetaminophen < NSAID < tramadol < opioids
(morphine, oxycodone, hydromorphone).
- Requesting a lesser dose of the same medication IF
ORDERED.
- Requesting a less intrusive route of administration
if both routes are prescribed by the provider (PO <
IV).
06/11/24 03:16
Code Status As Directed
Resuscitation Status: Full Code
06/11/24 04:18
0.9% Sodium Chloride 1000 ml [Nss] 1,000 ml IV 100 mls/hr
0.9% Sodium Chloride [Nss (Preservative Free)] See Protocol IV PRN PRN
Acetaminophen [Tylenol] 650 mg PO Q4HPRN PRN
FOLic ACID [Folvite] 1 mg 0.9% Sodium Chloride 50 ml [Nss] 50 ml IV DAILYPRN
Ketorolac [Toradol] 10 mg IV Q6HPRN PRN
Lorazepam [Ativan] 1 mg IV Q1HPRN PRN
Lorazepam [Ativan] 1 mg PO Q2HPRN PRN
Lorazepam [Ativan] 2 mg IV Q1HPRN PRN
Ondansetron Injectable [Zofran] 4 mg IV Q6HPRN PRN
Reg Insulin 100 Units/100 ml [Novolin R Insulin Infusion] 100 units in 100 ml IV PER PROTOCOL
Initial dose in units/hr, then titrate:: 6
Trazodone [Desyrel] 25 mg PO HS PRN
06/11/24 04:18
Case Management Consult Once
Case Management Consult: Other
Comment: Substance abuse counseling
Consult Notification Routine
Specialty to Notify: Nephrology
Date consulting provider notified: 06/11/24
Time consulting provider notified: 07:27
Notified:: Provider
Consult Notification Routine
Specialty to Notify: Psychiatry
Date consulting provider notified: 06/11/24
Time consulting provider notified: 07:26
Notified:: Provider
DIETARY CONSULT Routine
Reason for Consult: Nutrition support, possible refeeding guidelines
NEPHROLOGY CONSULT Routine
Consulting Provider: Kulwinder Vigil V.
Was physician already notified: No
Reason for consult: ESRD on HD
PSYCHIATRY CONSULT Routine
Consulting Provider: Jaime Multani
Was physician already notified: No
Reason for consult: Major Depression / Chronic Non-Compliance
WOUND/OSTOMY CONSULT Routine
Reason for Consult: Multiple skin wounds
Activity As Directed
Activity Level: Ambulate
With Assistance
Bedside Glucose Monitoring As Directed
Frequency: Q1H
EKG with chest pain [ECG as needed] As Directed
ECG as needed for:: Chest Pain
I/O [Intake/ Output] As Directed
Frequency: Per unit guidelines
MSAS SCORE As Directed
MSAS Score 0-4: Repeat MSAS every 2 hours until 0-4 for three consecutive assessments, then every 4 hours x 48
hours.
MSAS Score 5-7: For MILD withdrawl symptoms. Repeat MSAS and RASS every 2 hours
MSAS Score 8-11: For MODERATE withdrawal symptoms. Repeat MSAS and RASS every 1 hour. Consider ICU or IMU
level of care.
MSAS Score > 11: For SEVERE withdrawal symptoms. Repeat MSAS and RASS every 1 hour. Notify provider, consider
ICU level of care.
MSAS Additional Instructions: If no improvement or no decrease in score from severe to moderate within 12
hours, consult psychiatry
MSAS Notify Provider: Notify provider if patient requires more than 10 mg of Lorazepam in eight hour period.
Notify MD As Directed
Notify physician if: Nurse to contact provider when glucose reaches 250 to obtain orders for D5 0.45 NaCl
Orthostatic Vital Signs As Directed
Orthostatic VS Frequency: BID
Pneumatic Compression Sleeves As Directed
Type: Knee high
Records Request [Obtain Records] As Directed
Dates of Information to be Released: Most Recent
Type of Information Requested: Entire Record
Obtain Records from: [facility]
Vital Signs As Directed
Frequency: Per unit guidelines
Weight As Directed
Frequency: Daily
Oxygen Therapy [O2 Therapy] [RESP] Routine
Titrate/Wean O2 to maintain O2 sat greater than (%): 94
DX Deep Vein Thrombosis Video Routine
06/11/24 04:35
Basic Metabolic Panel Q4H
Complete Blood Count/No Diff IN AM
PTT Urgent
06/11/24 06:00
EKG [Electrocardiogram (*1)] IN AM
Reason for Study: Chest Pain
NPO
Allow oral meds: Yes
Allow clear liquids: Sips of Clears
06/11/24 08:00
FOLic ACID [Folvite] 1 mg PO DAILY
Heparin 5,000 units SC Q8
Pantoprazole [Protonix IV] 40 mg IV DAILY
Thiamine Injection 200 mg IV Q12
06/11/24 11:59
Basic Metabolic Panel Q4H
06/11/24 22:00
Oxcarbazepine [Trileptal] 150 mg PO HS
06/14/24 08:00
Thiamine HCl [Vitamin B1] 100 mg PO BID
Abnormal Lab Results
06/11/24 06/11/24 06/11/24
00:40 01:10 03:07
RBC 3.12 L 10^6/uL
(4.70-6.10)
Hgb 9.3 L g/dL
(13.0-18.0)
Hct 29.0 L %
(39.0-52.0)
MCHC 32.1 L g/dL
(33.0-37.0)
RDW 18.8 H %
(11.5-14.5)
Absolute Lymphs (auto) 0.6 L 10^3/uL
(1.2-3.4)
Neutrophils % 77.2 H %
(42.2-75.2)
Lymphocytes % 11.8 L %
(20.5-51.1)
PT 16.5 H Sec
(11.4-14.6)
VBG pH 7.21 L
(7.32-7.43)
VBG pCO2 49 H mmHg
(35-48)
VBG pO2 53 H mmHg
(30-50)
VBG HCO3 19.6 L mmol/L
(22-27)
Sodium 128 L mmol/L
(135-145)
Chloride 93 L mmol/L
(98-107)
Carbon Dioxide 20 L mmol/L
(22-30)
BUN 23 H mg/dl
(9-20)
Creatinine 4.1 H* mg/dL
(0.7-1.3)
Glucose 898 H* mg/dl
(70-99)
Hemoglobin A1c 7.4 H %
(4.0-5.6)
Calcium 7.5 L mg/dl
(8.4-10.2)
Alkaline Phosphatase 169 H U/L
(38-126)
Total Protein 5.7 L g/dl
(6.3-8.2)
Albumin 3.3 L g/dl
(3.5-5.0)
B-Hydroxybutyrate 1.21 H mmol/L
(0.02-0.27)
POC Glucose > 600 H* mg/dl
(70-99)
06/11/24 01:10
06/11/24 01:10
Vital Signs
Initial and Last Documented VS:
Initial Vital Signs
Temp Pulse Resp BP Pulse Ox
97.9 F 104 17 115/66 96
06/11/24 00:34 06/11/24 00:34 06/11/24 00:34 06/11/24 00:34 06/11/24 00:34
Last Documented Vital Signs
Temp Pulse Resp BP Pulse Ox
98.4 F 94 16 176/88 100
06/11/24 12:45 06/11/24 13:45 06/11/24 13:45 06/11/24 13:45 06/11/24 13:45
<Jaime Burdick, DO - Last Filed: 06/12/24 21:59>
Orders/Labs/Results
Orders:
Orders
06/11/24 01:10
Alcohol Urgent
Complete Blood Count/With Diff Urgent
Comprehensive Metabolic Panel Urgent
06/11/24 02:42
Insulin Human Regular [Novolin R] 7 units IV NOW STA
06/11/24 02:46
0.9% Sodium Chloride 1000 ml [Nss] 1,000 ml IV BOLUS
06/11/24 02:48
IV Insert/Care/Rem.- Treatment PRN
06/11/24 03:07
B-Hydroxybutyrate Urgent
Glycohemoglobin (HgbA1c) Urgent
Prothrombin Time Urgent
Venous Blood Gas Urgent
%Oxygen/Room Air: ra
06/11/24 03:14
Admit/Transfer Patient As Directed
Co-Sign Provider:
Level of Care: Inpatient admission
Assign to:: ICU
Physician / Group: Martin
Diagnosis: Acute Alcohol Intoxication, Hyperglycemia, ESRD on HD
Reason for Hospitalization: Acute Alcohol Intoxication, Hyperglycemia, ESRD on HD
Expected length of stay greater than two midnights?: Yes
ELOS- Estimated Length of Stay in days: 4
I certify the patient meets the requirements for IP care: Yes
PRN Pain Medication Management As Directed
May give lesser potent ordered pain med per pt: Yes
preference::
Protocol:: Medication orders for pain may be administered in a
manner that supports deferring to patient preference
when the pt is:
- Requesting an ordered lesser potent pain medication.
Least to most potent pain medications are defined
as: acetaminophen < NSAID < tramadol < opioids
(morphine, oxycodone, hydromorphone).
- Requesting a lesser dose of the same medication IF
ORDERED.
- Requesting a less intrusive route of administration
if both routes are prescribed by the provider (PO <
IV).
06/11/24 03:16
Code Status As Directed
Resuscitation Status: Full Code
06/11/24 04:18
0.9% Sodium Chloride 1000 ml [Nss] 1,000 ml IV 100 mls/hr
0.9% Sodium Chloride [Nss (Preservative Free)] See Protocol IV PRN PRN
Acetaminophen [Tylenol] 650 mg PO Q4HPRN PRN
FOLic ACID [Folvite] 1 mg 0.9% Sodium Chloride 50 ml [Nss] 50 ml IV DAILYPRN
Ketorolac [Toradol] 10 mg IV Q6HPRN PRN
Lorazepam [Ativan] 1 mg IV Q1HPRN PRN
Lorazepam [Ativan] 1 mg PO Q2HPRN PRN
Lorazepam [Ativan] 2 mg IV Q1HPRN PRN
Ondansetron Injectable [Zofran] 4 mg IV Q6HPRN PRN
Reg Insulin 100 Units/100 ml [Novolin R Insulin Infusion] 100 units in 100 ml IV PER PROTOCOL
Initial dose in units/hr, then titrate:: 6
Trazodone [Desyrel] 25 mg PO HS PRN
06/11/24 04:18
Case Management Consult Once
Case Management Consult: Other
Comment: Substance abuse counseling
Consult Notification Routine
Specialty to Notify: Nephrology
Date consulting provider notified: 06/11/24
Time consulting provider notified: 07:27
Notified:: Provider
Consult Notification Routine
Specialty to Notify: Psychiatry
Date consulting provider notified: 06/11/24
Time consulting provider notified: 07:26
Notified:: Provider
DIETARY CONSULT Routine
Reason for Consult: Nutrition support, possible refeeding guidelines
NEPHROLOGY CONSULT Routine
Consulting Provider: Kulwinder Vigil V.
Was physician already notified: No
Reason for consult: ESRD on HD
PSYCHIATRY CONSULT Routine
Consulting Provider: Jaime Multani
Was physician already notified: No
Reason for consult: Major Depression / Chronic Non-Compliance
WOUND/OSTOMY CONSULT Routine
Reason for Consult: Multiple skin wounds
Activity As Directed
Activity Level: Ambulate
With Assistance
Bedside Glucose Monitoring As Directed
Frequency: Q1H
EKG with chest pain [ECG as needed] As Directed
ECG as needed for:: Chest Pain
I/O [Intake/ Output] As Directed
Frequency: Per unit guidelines
MSAS SCORE As Directed
MSAS Score 0-4: Repeat MSAS every 2 hours until 0-4 for three consecutive assessments, then every 4 hours x 48
hours.
MSAS Score 5-7: For MILD withdrawl symptoms. Repeat MSAS and RASS every 2 hours
MSAS Score 8-11: For MODERATE withdrawal symptoms. Repeat MSAS and RASS every 1 hour. Consider ICU or IMU
level of care.
MSAS Score > 11: For SEVERE withdrawal symptoms. Repeat MSAS and RASS every 1 hour. Notify provider, consider
ICU level of care.
MSAS Additional Instructions: If no improvement or no decrease in score from severe to moderate within 12
hours, consult psychiatry
MSAS Notify Provider: Notify provider if patient requires more than 10 mg of Lorazepam in eight hour period.
Notify MD As Directed
Notify physician if: Nurse to contact provider when glucose reaches 250 to obtain orders for D5 0.45 NaCl
Orthostatic Vital Signs As Directed
Orthostatic VS Frequency: BID
Pneumatic Compression Sleeves As Directed
Type: Knee high
Records Request [Obtain Records] As Directed
Dates of Information to be Released: Most Recent
Type of Information Requested: Entire Record
Obtain Records from: [facility]
Vital Signs As Directed
Frequency: Per unit guidelines
Weight As Directed
Frequency: Daily
Oxygen Therapy [O2 Therapy] [RESP] Routine
Titrate/Wean O2 to maintain O2 sat greater than (%): 94
DX Deep Vein Thrombosis Video Routine
06/11/24 04:35
Basic Metabolic Panel Q4H
Complete Blood Count/No Diff IN AM
PTT Urgent
06/11/24 06:00
EKG [Electrocardiogram (*1)] IN AM
Reason for Study: Chest Pain
NPO
Allow oral meds: Yes
Allow clear liquids: Sips of Clears
06/11/24 08:00
FOLic ACID [Folvite] 1 mg PO DAILY
Heparin 5,000 units SC Q8
Pantoprazole [Protonix IV] 40 mg IV DAILY
Thiamine Injection 200 mg IV Q12
06/11/24 11:59
Basic Metabolic Panel Q4H
06/11/24 22:00
Oxcarbazepine [Trileptal] 150 mg PO HS
06/14/24 08:00
Thiamine HCl [Vitamin B1] 100 mg PO BID
Abnormal Lab Results
06/11/24 06/11/24 06/11/24
00:40 01:10 03:07
RBC 3.12 L 10^6/uL
(4.70-6.10)
Hgb 9.3 L g/dL
(13.0-18.0)
Hct 29.0 L %
(39.0-52.0)
MCHC 32.1 L g/dL
(33.0-37.0)
RDW 18.8 H %
(11.5-14.5)
Absolute Lymphs (auto) 0.6 L 10^3/uL
(1.2-3.4)
Neutrophils % 77.2 H %
(42.2-75.2)
Lymphocytes % 11.8 L %
(20.5-51.1)
PT 16.5 H Sec
(11.4-14.6)
VBG pH 7.21 L
(7.32-7.43)
VBG pCO2 49 H mmHg
(35-48)
VBG pO2 53 H mmHg
(30-50)
VBG HCO3 19.6 L mmol/L
(22-27)
Sodium 128 L mmol/L
(135-145)
Chloride 93 L mmol/L
(98-107)
Carbon Dioxide 20 L mmol/L
(22-30)
BUN 23 H mg/dl
(9-20)
Creatinine 4.1 H* mg/dL
(0.7-1.3)
Glucose 898 H* mg/dl
(70-99)
Hemoglobin A1c 7.4 H %
(4.0-5.6)
Calcium 7.5 L mg/dl
(8.4-10.2)
Alkaline Phosphatase 169 H U/L
(38-126)
Total Protein 5.7 L g/dl
(6.3-8.2)
Albumin 3.3 L g/dl
(3.5-5.0)
B-Hydroxybutyrate 1.21 H mmol/L
(0.02-0.27)
POC Glucose > 600 H* mg/dl
(70-99)
06/11/24 01:10
06/11/24 01:10
Vital Signs
Initial and Last Documented VS:
Initial Vital Signs
Temp Pulse Resp BP Pulse Ox
97.9 F 104 17 115/66 96
06/11/24 00:34 06/11/24 00:34 06/11/24 00:34 06/11/24 00:34 06/11/24 00:34
Last Documented Vital Signs
Temp Pulse Resp BP Pulse Ox
98.4 F 94 16 176/88 100
06/11/24 12:45 06/11/24 13:45 06/11/24 13:45 06/11/24 13:45 06/11/24 13:45
<Jaime Burdick DO - Last Filed: 06/12/24 21:59>
MDM/Problems Addressed
Differential Diagnosis Includes:
DKA, alcohol intoxication, TEN, chronic abdominal pain
MDM/Problems Addressed:
34-year-old male presents with acute alcohol intoxication, chronic abdominal pain, medical noncompliance
Chronic conditions affecting care:
Acute renal failure
Chronic conditions affecting care: Kidney disease
<MARCEL Keenan - Last Filed: 06/11/24 03:55>
*Pulse Oximetry
Patient hypoxic: no
*EKG
Interpreted by ED Provider?: NA
*Fashion Design Professor Interpretation
Rate: Fashion Design Professor- N/A
*Critical Care Note
Total Time (30-74mins, 75-104mins- exclusive of procedures): Not Applicable
<DO Dominick Aguirre Last Filed: 06/12/24 21:59>
*Critical Care Note
Total Time (30-74mins, 75-104mins- exclusive of procedures): 35
comment:
Critical care statement: A total of 35 minutes of critical care time was provided for this patient. This time is separate from time utilized to perform the aforementioned documented procedures. Aggregate critical care time includes only time
during which I was engaged in work directly related to the patient's care, as described above, whether at the bedside or elsewhere in the Emergency Department.
<Jaime Burdick DO - Last Filed: 06/12/24 21:59>
Patient Management
Social determinants of health affecting care: Living situation and Substance abuse
Discussion with other providers: Hospitalist
<Jaime Burdick DO - Last Filed: 06/12/24 21:59>
Update Note
Update Note:
06/11/2024 0133 AM: Patient's mother Cherise called. Before taking the call I asked the patient if I could talk with her. Patient explicitly told me that he did not give me permission to talk with her at this time. private secretary transferred
patient to crisis as she wanted to file [id number] petition
06/11/2024 0201 AM: Patient now allowed me to speak with his mother. I spoke with her for 5 to 10 minutes. She is concerned because patient wishes to go on hospice since he no longer wants to do dialysis. She states that he has not expressed
suicidal ideation to her but rather his desire to 'let nature take its course '. She knows of no distinct plan of him harming himself.
06/11/2024 0246 AM: Patient's anion gap is 15. Patient to be admitted for DKA.
ED Attending Note
<MARCEL Keenan - Last Filed: 06/11/24 03:55>
-
Portions of this chart may have been created with voice recognition software.� Occasional wrong word or��sound alike� substitutions may have occurred due to the inherent limitations of voice recognition software.
<Jaime Burdick DO - Last Filed: 06/12/24 21:59>
ED Attending Note
Patient seen and examined by attending physician: Yes
I performed the substantive portion of visit, reviewed & personally made and approve the management plan that is documented in note by myself or AVINASH.: Yes
ED Attending Note:
34-year-old male presents to the emergency department from home via EMS after mom called for his intoxication. Patient was seen in the emergency department and discharged AGAINST MEDICAL ADVICE approximately 2 hours prior to arrival. Presents
after an altercation with his mother. Mom told EMS that he has been going from hospital to hospital looking for narcotics. He was recently discharged from [facility] after a prolonged stay. She states that they did give him
Dilaudid there. Mom is concerned the patient wants to kill himself. Patient has expressed that he wants to withdraw care and go on hospice. Mom states that tonight patient was drinking [employer] and ice tea. He also drinks some whiskey.
Patient was seen earlier this evening at [facility] emergency department. He left AGAINST MEDICAL ADVICE when he did not receive the narcotics he was seeking. Patient was seen in conjunction with the PA student. I have reviewed and agree
with the history and treatment plan presented. On my independent physical exam, patient is intoxicated appearing. Slurring his speech but able to communicate. He does have a port in his right chest. Heart is regular rate and rhythm. Lungs are
clear to auscultation bilateral. Abdomen is soft and distended slightly. He has scarring and scabbing throughout his upper and lower extremities.
Patient's anion gap is 15.
Patient has an insulin pump
Discharge Plan
Departure
Patient Disposition: Admit
Date of Disposition: 06/11/24
Time of Disposition: 02:47
Admit to: ICU
Presentation/result/management discussed w/ accepting MD/DO: Hospitalist
Condition: Fair
Discharge Problem:
Alcohol intoxication, ESRD on dialysis, Abdominal pain, Medical non-compliance, Poorly controlled type 1 diabetes mellitus
Interventions
Interventions:
*Risk Screen - Suicide Last Done: 06/11/24 04:27
*General Assessment Last Done: 06/11/24 00:34
*Neglect/Abuse Screening Last Done: 06/11/24 00:34
ED- Fall Risk Assessment Last Done: 06/11/24 00:46
*ED COVID-19 Vaccine History Last Done: 06/11/24 00:46
*Nursing Disposition Last Done: 06/11/24 04:11
ED- Neurological Assessment Last Done: 06/11/24 00:46
ED-Psychological Assessment Last Done: 06/11/24 00:46
Discharge Date and Time
Discharge Date/Time: 06/11/24 04:12
[2024-06-11 01:18] LABS: % Eosinophils 0.8 % (0-6); % Immature Granulocytes 0.4 % (0-0.5); % Lymphocytes 11.8 % (20.5-51.1); % Monocytes 8.8 % (1.7-9.3); % Neutrophils 77.2 % (42.2-75.2); Absolute Basophils 0.1 10^3/uL (0-0.2); Absolute Lymphocytes 0.6 10^3/uL (1.2-3.4); Absolute Monocytes 0.4 10^3/uL (0.1-0.6); Absolute Neutrophils 3.8 10^3/uL (1.4-6.5); Hemoglobin 9.3 g/dL (13.0-18.0); Mean Corp Hgb Conc. 32.1 g/dL (33.0-37.0); Mean Corpuscular Hgb 29.8 pg (27.0-31.0); Mean Corpuscular Volume 92.9 fL (80.0-94.0); Mean Platelet Volume 10.2 fL (7.4-10.4); Nucleated Red Blood Cells % 0 % (-); Platelet Count 216 10^3/uL (130-400); Red Blood Cell Count 3.12 10^6/uL (4.70-6.10); Red Cell Dist. Width 18.8 % (11.5-14.5); White Blood Cell Count 4.9 10^3/uL (4.8-10.8)
[2024-06-11 01:50] LABS: ALT (SGPT) 13 U/L (0-50); AST (SGOT) 24 U/L (17-59); Albumin 3.3 g/dl (3.5-5.0); Alcohol 246 mg/dl; Alkaline Phosphatase 169 U/L (38-126); Blood Urea Nitrogen 23 mg/dl (9-20); Calcium 7.5 mg/dl (8.4-10.2); Carbon Dioxide 20 mmol/L (22-30); Chloride 93 mmol/L (98-107); Potassium 4.7 mmol/L (3.5-5.1); Sodium 128 mmol/L (135-145); Total Bilirubin 0.8 mg/dl (0.2-1.3); Total Protein 5.7 g/dl (6.3-8.2); eGFR 18.75
[2024-06-11 01:55] LABS: Glucose 898 mg/dl (70-99)
[2024-06-11] MEDS: NOVOLIN R 7 UNITS IV (02:54)
[2024-06-11] MEDS: NSS 1000 IV ×2 (02:55→06:06)
[2024-06-11 03:15] LABS: Venous Blood Gas B.E. -8.1 mmol/L (-4 to +4); Venous Blood Gas HCO3 19.6 mmol/L (22-27); Venous Blood Gas O2 Sat % 80.2 %; Venous Blood Gas pCO2 49 mmHg (35-48); Venous Blood Gas pH 7.21 (7.32-7.43); Venous Blood Gas pO2 53 mmHg (30-50)
[2024-06-11 03:29] LABS: INR 1.32; PT 16.5 Sec (11.4-14.6)
--- NOTE | 2024-06-11 03:34 | HPS.HSE ---
Family Physician
-
Family Physician: Casper Arroyo
Chief Complaint
-
Abd Pain
History of Present Illness
Patient is an unfortunate 34y M with PMH significant for DM-I and ESRD on HD with chronic poor control and non-compliance who presents to ED complaining of abdominal pain. Patient is obviously intoxicated and belligerent with staff here in the
ED. Patient was seen in the ED earlier this evening with complaints of chronic abdominal pain. He signed out AMA at 9:30 PM. He returned to the ED shortly after midnight in intoxicated state. Patient admits that he drank about 1/2 bottle of rum
and 'some' whiskey in the few hours since he was last seen here.
Patient continues to complain of diffuse abdominal pain - which is a long-standing and well-documented issue for him.
He is clearly intoxicated with slurred speech, agitation and is not able or not willing to answer many questions. He is uncooperative with nursing staff here in the ED.
ED staff received report from family that patient was recently hospitalized at [facility].
He was apparently there for quite some time and received narcotic analgesic on a regular basis.
He was discharged from that facility this AM and then presented to the ED here this evening.
Medical History
Past Medical History
Past Medical History: Reports Other
Additional Past Medical History:
DM-I (Dx age 13)
PEA Arrest (March 2024)
ESRD on HD
Chronic Poor Compliance
History of PE
Hypertension
Gastroparesis
Anxiety / Depression
Chronic Abdominal Pain
Blindness
Past Surgical History: Reports Other
Additional Past Surgical History:
LUE AVF
Appendectomy
PD Catheter placed / removed
Social History
Tobacco: Smoker (Current every day smoker. 1/2 ppd for total of 20 pack years.)
Alcohol: Occasional (Drank 1/2 bottle of rum and 'some' whiskey in a few hours this evening.)
Drug: None
Family History
Family History: Asthma
Allergies / Home Medications
Allergies reflects when Allergies were last updated in [facility].
Home Medications with original date entered in [facility]
Allergy/Medication List:
Allergies
Allergy/AdvReac Type Severity Reaction Status Date / Time
shellfish derived Allergy Hives Verified 02/21/24 22:52
Home Medications
amlodipine 10 mg tablet 10 mg PO DAILY Blood pressure 04/22/21
carvedilol 25 mg tablet (Coreg) 25 mg PO BID Blood pressure 04/22/21
furosemide 40 mg tablet 40 mg PO BID Fluid retention/Swelling 04/22/21
metoclopramide HCl 10 mg tablet (Reglan) 10 mg PO TIDPRN PRN nausea 04/07/23
oxcarbazepine 150 mg tablet 150 mg PO DAILY Mental Health/Anxiety 07/24/23
trazodone 50 mg tablet 25 mg PO HS sleep 01/05/24
Patient Own Insulin Pump 0 units SC .VIA PUMP diabetes 02/13/24
Review of Systems
-
History Source: Patient
A 12 point ROS was completed and negative except as noted: Yes
Constitutional: Reports Fatigue; Denies Fever or Chills
Respiratory: Denies Cough or Trouble Breathing
Cardiac: Denies Chest Pain or Palpitations
Abdomen/GI: Reports Abdominal Pain, Nausea, Vomiting and Diarrhea
Neurological: Denies Dizzy or Headache
Physical Exam
Vital Signs
Vital Signs
Temp Pulse Resp BP Pulse Ox
97.9 F 94 28 97/71 94
06/11/24 00:34 06/11/24 03:00 06/11/24 03:00 06/11/24 03:00 06/11/24 00:46
Physical Exam
General: Other (Apparently intoxicated 34y M in intermittent distress due to abdominal pain.)
HEENT: Other (Dry MM. Rounded facies. R IJ HD catheter in place with minimal erythema at site. No bleeding / discharge.)
Respiratory: Other (Decreased BS at bases - otherwise clear.)
Cardiac: S1/S2
GI: Other (Distended abdomen with pos bowel sounds. Exquisitely tender with minimal pressure.)
Musculoskeletal: Other (Trace - 1+ edema at ankles bilaterally. )
Skin: Other (Scattered superficial skin ulcerations of the extremities in various stages of healing.)
Psych: Agitated
Laboratory Results
-
06/11/24 01:10
06/11/24 01:10
Laboratory Results
PT 16.5 Sec (11.4-14.6) H 06/11/24 03:07
INR 1.32 06/11/24 03:07
Total Bilirubin 0.8 mg/dl (0.2-1.3) 06/11/24 01:10
AST 24 U/L (17-59) 06/11/24 01:10
ALT 13 U/L (0-50) 06/11/24 01:10
Alkaline Phosphatase 169 U/L (38-126) H 06/11/24 01:10
Impression/Plan
-
A/P: Patient is a 34y M with PMH significant for DM-I, ESRD on HD, prior PEA arrest and traumatic pericardial effusion who presents to ED complaining of abdominal pain.
Acute Alcohol Intoxication
- Admit for further evaluation and treatment.
- Patient is obviously intoxicated and admittedly drank significant amount of alcohol this evening in short period of time.
- Suspect that EtOH (and glucose to a degree) are on the up-swing given timing.
- Supportive care including IVFs, thiamine, folate, etc.
- Monitor for symptoms of withdrawal and treat with BZDs as needed if necessary.
DM-I, Uncontrolled
Hyperglycemia
Pseudohyponatremia
- Marked hyperglycemia on initial labs (898).
- Technically meets criteria for DKA with anion gap metabolic acidosis; however, his anion gap has chronically been 16-17.
- Discontinue insulin pump (insertion site not intact and pump appears inactive in any event).
- IV insulin infusion for now and adjust as needed for adequate control.
- Monitor chemistries - but would transition to subcut insulin regimen once glucose control is improved.
- Would wait on 'normalization' of anion gap as this is not likely to occur.
- DM education. Again encourage compliance with routine care.
- IVFs support and adjust as needed based on labs / lytes.
- Would be cautious with any needed potassium replacement given ESRD status.
Chronic Abdominal Pain
Chronic Substance Use Disorder
Chronic Medical Non-Compliance
- Patient with history of serial hospitalizations, ED visits, etc with specific requests for narcotic pain control.
- This is very well documented at multiple institutions.
- Recent hospitalization at outside facility where he reportedly did receive regular narcotic dosing.
- Avoid further narcotics.
- Supportive care / alternate pain control efforts.
- Improved control of DM, HD needs, etc.
ESRD on HD
Chronic Anion Gap Metabolic Acidosis
- Patient states that he received his last HD session on Friday.
- This would make sense if he has been hospitalized at an outside facility until this AM.
- Nephrology evaluation for HD needs during his stay here.
- Chronic elevation in his anion gap to 16-17 based on prior labs.
- Possibly due to chronic HD / uremia / etc. (though BUN is not significantly elevated).
- Other possible contributors including EtOH and DM as noted above.
Anxiety / Depression
- Would consider symptoms uncontrolled based on his substance use, poor compliance with health care, etc.
- Continue current oxcarbazepine / trazodone for now.
- Formal Psych evaluation given pattern of behavior, non-compliance, substance abuse, etc.
Anemia of Chronic Disease
- Stable. Hgb appears at or near known baseline.
- No reported bleeding, etc.
- Follow for any changes.
DVT Prophylaxis: Subcut Heparin
Code Status: Full
[2024-06-11 03:45] LABS: B-Hydroxybutyrate 1.21 mmol/L (0.02-0.27)
[2024-06-11 04:45] LABS: Hematocrit 28.4 % (39.0-52.0); Hemoglobin 9.3 g/dL (13.0-18.0); Mean Corp Hgb Conc. 32.7 g/dL (33.0-37.0); Mean Corpuscular Hgb 30.1 pg (27.0-31.0); Mean Corpuscular Volume 91.9 fL (80.0-94.0); Mean Platelet Volume 9.7 fL (7.4-10.4); Platelet Count 217 10^3/uL (130-400); Red Blood Cell Count 3.09 10^6/uL (4.70-6.10); Red Cell Dist. Width 19.1 % (11.5-14.5); White Blood Cell Count 4.7 10^3/uL (4.8-10.8)
[2024-06-11 04:58] LABS: APTT 33.8 Sec (23.4-35.0)
--- NOTE | 2024-06-11 04:59 | VATNOTE ---
CALLED BY BEEF RIBBER THAT PT ADMITTED WITH PHS INT IN WHICH IS SAME EXTREMITY A/V FISTULA. REMOVED PER PROTOCOL AND IV SITE ESTABLISHED DOCUMENTED IN RH.
[2024-06-11 05:14] LABS: Blood Urea Nitrogen 25 mg/dl (9-20); Calcium 7.8 mg/dl (8.4-10.2); Carbon Dioxide 17 mmol/L (22-30); Chloride 94 mmol/L (98-107); Potassium 4.2 mmol/L (3.5-5.1); Sodium 127 mmol/L (135-145)
[2024-06-11 05:29] LABS: Glucose - Point of Care > 600 mg/dl (70-99)
[2024-06-11 05:37] LABS: Glucose 939 mg/dl (70-99)
[2024-06-11] MEDS: NOVOLIN R INSULIN INFUSION 100 IV (05:38)
--- NOTE | 2024-06-11 06:30 | PTCARENOTE ---
received patient from the ED. pt awake and yelling. desatting to 70%, placed on 5L NC. peripheral line in left hand with left upper arm fistula. IV team called and new line placed in right hand. accu check reading high on machine. labs drawn. pt
angry now oob yelling that he's going to go home. pt redressed himself and was trying to leave. attempting to rip out his IV, now kicking and trying to hit the staff. security called. pt placed in leather restraints. pt was able to settle down for
a little then became agitated again. pt was talking to the UNDERGRADUATE INTERN and said he wanted Dilaudid and Ativan or he was leaving. pt continues to yell out. glucose back from the lab resulting 939. placed on 6units per UNDERGRADUATE INTERN's order.
[2024-06-11 06:48] LABS: Phosphorus 4.3 mg/dl (2.5-4.5)
[2024-06-11] MEDS: THIAMINE INJECTION 200 MG IV (07:33)
[2024-06-11] MEDS: PROTONIX IV 40 MG IV (07:33)
[2024-06-11] MEDS: NSS (PRESERVATIVE FREE) 10 ML IV (07:33)
[2024-06-11 07:35] LABS: Glucose 838 mg/dl (70-99)
--- NOTE | 2024-06-11 08:04 | W.PN.HOSP.TC ---
Addendum entered and electronically signed by Ian Mckeon MD 06/11/24 16:13:
Nonbillable note
I saw and evaluated the patient. I reviewed the resident�s note and agree with findings and plan as documented in the resident�s note.
Patient agitated and yelling in the morning and demanding to sign AMA.
Discussed with psychiatry as will need eval for decision-making capacity before allowed to sign AMA paper.
Meanwhile patient provided IV Haldol 1 mg with which patient agitation improved
Patient continued demand pain medication/Dilaudid only for pain control.
Known history of narcotic seeking behavior.
Nephrology was involved in care and patient was provided round of dialysis
As patient have expressed wish of not wanting to get dialysis and hospice care, palliative care was consulted although patient not interested in talking.
Psychiatry evaluated patient later in afternoon and was deemed appropriate for able to make decision for himself.
Patient left AMA without waiting for me to sign the paper and discuss ramification of signing out AMA.
Poor prognosis with patient remains at risk of sudden cardiac .
Original Note:
Today's Communication/Plan
-
Continue insulin drip
Potassium and NS infusion
Every hour Accu-Cheks
Every 4 hours BMP, magnesium and phosphate levels
MSAS protocol, Haldol for agitation
Psych consult pending
1 round of hemodialysis.
Assessment / Plan
Assessment / Plan
Assessment-
34-year-old male with PMHx of type 1 diabetes mellitus, ESRD on HD (Friday, Friday, Friday), PEA cardiac arrest (March 2024), hypertension, gastroparesis, chronic abdominal pain presents to the ER in the afternoon for acute abdominal pain and
leaves AGAINST MEDICAL ADVICE presents to the ER for abdominal pain evaluation in the night on 06/10-diagnosed with DKA and acute alcohol intoxication.
Plan-
DKA-
Poorly controlled type I DM, likely exacerbated by acute alcohol intoxication.
Marked hyperglycemia upon initial labs-898, continues to trend high in 800s on 06/11.
Anion gap metabolic acidosis (as evidenced by VBG)-worsening anion gap since admission (currently at 18 on 06/11, came with 16 on 06/10)
Continue IV insulin infusion until anion gap resolves x 2. Dose of infusion rate uptitrated today.
Trend BMP, magnesium, phosphorus Q4 hourly, Accu-Cheks q. 1 hourly
Monitor for serum potassium levels and hold insulin drip if potassium drops below 3.5
IV fluid support with potassium infusion. Avoid hypoglycemia Target blood glucose range less than 200. Continue monitor electrolytes and blood sugars Q4 hourly until anion gap resolves.
Plan to switch to his insulin pump once anion gap resolves.
Acute alcohol intoxication-
Supportive care with IV fluids thiamine and folate.
Blood alcohol levels up to 46.
Keep the patient on MSAS protocol and IV Ativan protocol, and monitor for alcohol withdrawal symptoms
More likely to have alcohol withdrawal in next 24 hours.
Abdominal pain -
Acute on chronic.
Can likely be a confluence of acute DKA, alcohol intoxication, underlying gastroparesis.
Serial hospitalizations and ED visits with specific requests for narcotic pain control. I suspect there is some baseline abdominal pain to his drug-seeking behavior.
Avoid narcotics for abdominal pain. Start patient on Tylenol as needed.
Metabolic derangements-
Likely secondary to DKA.
Hyponatremia (pseudohyponatremia), monitor for drop in the blood glucose.
Corrected serum sodium falls within the range.
Serum potassium levels within normal limits.
Continue repleting potassium through NS. Stop potassium repletion if K+> 5.5.
ESRD on HD-
Acute on chronic anion gap metabolic acidosis
Last hemodialysis session on Friday, nephrology consulted.
1 round of dialysis today. Nephrology follow-up.
Anxiety and depression-
Patient's family has concern for active suicidal ideation, patient denies any active suicidal ideation.
Patient is interested in hospice care.
Currently on oxcarbazepine and trazodone.
Psychiatry consult placed to assess for depression and patient's judgment capacity.
Anemia of chronic disease-
Stable, hemoglobin at baseline.
Follow for any changes.
Hypertension-
Blood pressure running on the lower side.
If mean arterial pressure less than 65 initiate pressors.
DVT prophylaxis-heparin
CODE STATUS full code.
Anticipated Discharge: > 48 hours
Subjective/Interval History
-
Date of Service: June 11, 2024
Patient is agitated, wants to go home. Patient complains of severe abdominal pain and wants to take care of his abdominal pain at home.
Some concern for active suicidal ideation, his judgment might be poor with poor insight due to his active alcoholic intoxication and acute DKA.
Objective Data
-
Labs:
Laboratory Results
06/11/24 06/11/24 06/11/24
01:10 03:07 04:35
WBC 4.9 4.7 L
Hgb 9.3 L 9.3 L
Hct 29.0 L 28.4 L
Plt Count 216 217
PT 16.5 H
INR 1.32
APTT 33.8
Sodium 128 L 127 L
Potassium 4.7
Chloride 93 L
Carbon Dioxide 20 L
BUN 23 H
Creatinine 4.1 H*
Glucose 898 H*
Calcium 7.5 L
Total Bilirubin 0.8
AST 24
ALT 13
Alkaline Phosphatase 169 H
06/11/24 06/11/24 06/11/24
04:35 04:35 04:35
WBC
Hgb
Hct
Plt Count
PT
INR
APTT
Sodium Cancelled Cancelled
Potassium 4.2 Cancelled
Chloride
Carbon Dioxide
BUN
Creatinine
Glucose
Calcium
Total Bilirubin
AST
ALT
Alkaline Phosphatase
06/11/24 06/11/24 06/11/24
04:35 04:35 04:35
WBC
Hgb
Hct
Plt Count
PT
INR
APTT
Sodium
Potassium Cancelled
Chloride 94 L Cancelled Cancelled
Carbon Dioxide 17 L
BUN
Creatinine
Glucose
Calcium
Total Bilirubin
AST
ALT
Alkaline Phosphatase
06/11/24 06/11/24 06/11/24
04:35 04:35 04:35
WBC
Hgb
Hct
Plt Count
PT
INR
APTT
Sodium
Potassium
Chloride
Carbon Dioxide Cancelled Cancelled
BUN 25 H Cancelled
Creatinine
Glucose
Calcium
Total Bilirubin
AST
ALT
Alkaline Phosphatase
06/11/24 06/11/24 06/11/24
04:35 04:35 04:35
WBC
Hgb
Hct
Plt Count
PT
INR
APTT
Sodium
Potassium
Chloride
Carbon Dioxide
BUN Cancelled
Creatinine 4.3 H* Cancelled Cancelled
Glucose 939 H*
Calcium
Total Bilirubin
AST
ALT
Alkaline Phosphatase
06/11/24 06/11/24 06/11/24
04:35 04:35 04:35
WBC
Hgb
Hct
Plt Count
PT
INR
APTT
Sodium
Potassium
Chloride
Carbon Dioxide
BUN
Creatinine
Glucose Cancelled Cancelled
Calcium 7.8 L Cancelled
Total Bilirubin
AST
ALT
Alkaline Phosphatase
06/11/24 06/11/24 06/11/24
04:35 06:52 12:18
WBC
Hgb
Hct
Plt Count
PT
INR
APTT
Sodium Pending
Potassium Pending
Chloride Pending
Carbon Dioxide Pending
BUN Pending
Creatinine Pending
Glucose 838 H* Pending
Calcium Cancelled Pending
Total Bilirubin
AST
ALT
Alkaline Phosphatase
06/11/24 06/11/24
16:18 20:18
WBC
Hgb
Hct
Plt Count
PT
INR
APTT
Sodium Pending Pending
Potassium Pending Pending
Chloride Pending Pending
Carbon Dioxide Pending Pending
BUN Pending Pending
Creatinine Pending Pending
Glucose Pending Pending
Calcium Pending Pending
Total Bilirubin
AST
ALT
Alkaline Phosphatase
Vital Signs:
Vital Signs
Temp Pulse Resp BP Pulse Ox
97.3 F 93 18 144/86 97
06/11/24 07:37 06/11/24 06:30 06/11/24 06:30 06/11/24 05:48 06/11/24 06:30
Review of Systems
-
History Source: Patient
Constitutional: Reports No Symptoms
Respiratory: Reports No Symptoms
Cardiac: Reports No Symptoms
Abdomen/GI: Reports Abdominal Pain
Genitourinary: Reports No Symptoms
Musculoskeletal: Reports No Symptoms
Skin: Reports No Symptoms
Neuro: Reports Other (Agitated)
Endocrine: Reports No Symptoms
Hematologic / Lymphatic: Reports No Symptoms
Physical Exam
-
General: No Apparent Distress (On 4 L mid nasal cannula flow.), Conversant and Other
HEENT: Normocephalic, Atraumatic and PERRLA
Respiratory: Clear to Auscultation; Negative Wheezes, Rales or Rhonchi
Cardiac: Regular Rhythm and S1/S2; Negative Murmur, Rub or Gallop
GI: Soft, Normal Bowel Sounds, Tender and Distended (Mildly distended.)
Skin: Warm
Neuro: AO x 3 and No Motor Deficits
Psych: Calm
--- NOTE | 2024-06-11 08:08 | CON.INTV ---
Consultation
Consultation Request
Date/Time Consultation Requested: 06/11/2024515
Date/Time Consultation Performed: 06/11/2024804
Requesting Provider: OSCAR Scott
Performing Provider: Devaughn Moses MD
Reason for Consultation: DKA, EtOH intoxication
Medical History
-
Chief Complaint: Alcohol intoxication
History of Present Illness:
34-year-old male with a past medical history of ESRD on HD MWF, insulin-dependent diabetes mellitus on subcutaneous insulin pump, recurrent DKA with insulin noncompliance, chronic right-sided pleural effusion (since 04/2023), hypertension, pulmonary
hypertension, alcohol use disorder, history of cardiac arrest in March 2024, and history of tobacco use disorder/polysubstance abuse who presents with alcohol intoxication after consuming an unknown amount of rum. He had come to the ER earlier
complaining of abdominal pain and signed out AMA at 9:30 PM and then return to the ER shortly after midnight intoxicated with alcohol. He admitted to drinking half a bottle of rum and whiskey and endorsed abdominal pain. He was uncooperative
nursing staff with agitation and slurred speech. Vitals in the ER showed he was afebrile to 97.9 �F, pulse rate 104, breathing at 17 breaths/min, BP 115/66 and saturating 96% on room air. Labs showed anemia at 9.3, metabolic acidosis with venous
pH 7.21, pCO2 49, glucose on chemistry of 898, serum bicarbonate level of 20, sodium level 128, and beta hydroxybutyrate 1.21. Patient was given IV regular insulin of 7 units in the ER, 1 L NS 0.9% and started on insulin drip and admitted to the
ICU for further care. Critical care services consulted for additional management/recommendations.
Patient seen and evaluated this morning. He is requesting Dilaudid and Zofran for abdominal pain and nausea. He does not have shortness of breath. He also denies WARNER, diarrhea, fevers or chills. He says that he will not do dialysis until he gets
his pain medications.
PMHx: ESRD on HD MWF, insulin-dependent diabetes mellitus with subcutaneous insulin pump, recurrent DKA with insulin noncompliance, chronic right-sided pleural effusion since April 2023, hypertension, pulmonary hypertension, alcohol use disorder,
anxiety/depression, history of cardiac arrest (March 2024), history of polysubstance abuse, and tobacco use disorder, chronic HFpEF, history of MRSA
PSHx: LUE AVF, appendectomy, PD catheter placement with subsequent removal, biliary tube placement (May 2023)
Past Medical History
Past Medical History: Other (above as per HPI)
Past Surgical History: Other (above as per HPI)
Social History
Tobacco: Smoker
Alcohol: Occasional
Drug: Other (History of polysubstance abuse)
Personal: Single
Family History
Family History: Reviewed & Not Pertinent
Allergies / Home Medications
Allergies
Allergy/AdvReac Type Severity Reaction Status Date / Time
shellfish derived Allergy Hives Verified 06/11/24 00:34
Home Medications
�Medication �Instructions �Recorded �Confirmed �Last Taken �Type
amlodipine 10 mg tablet 10 mg PO DAILY Blood pressure 04/22/21 04/26/24 04/25/24 History
metoclopramide HCl 10 mg tablet 10 mg PO TIDPRN PRN nausea 04/07/23 04/26/24 04/25/24 History
(Reglan)
oxcarbazepine 150 mg tablet 150 mg PO HS Neurological Condition 07/24/23 04/26/24 04/25/24 History
trazodone 50 mg tablet 25 mg PO HS Sleep 01/05/24 04/26/24 04/25/24 History
Patient Own Insulin Pump 0 units SC .VIA PUMP diabetes 02/13/24 04/26/24 04/26/24 History
carvedilol 25 mg tablet 25 mg PO BID Blood Pressure 04/12/24 04/26/24 04/25/24 History
furosemide 40 mg tablet 40 mg PO BID@0800,1600 Fluid 04/12/24 04/26/24 04/25/24 History
Retention/Swelling
Review of Systems
-
History Source: Patient
All other systems: Negative unless noted
Vitals / Labs / Diagnostic Testing
Vital Signs
Temp Pulse Resp BP Pulse Ox
97.3 F 93 18 144/86 98
06/11/24 07:37 06/11/24 06:30 06/11/24 06:30 06/11/24 05:48 06/11/24 08:00
Lab Data
06/11/24 04:35
Laboratory Results
06/11/24 06/11/24
03:07 04:35
PT 16.5 H
INR 1.32
APTT 33.8
Diagnostic Testing:
Physical Exam
-
HEENT: Normocephalic and Anicteric
Cardiovascular: Peripheral Edema (Negative)
Respiratory: Wheeze (Negative), Rhonchi (Negative), Non-Labored Respirations and Other (Coarse breath sounds heard bilaterally)
GI: Soft, Non Distended, Non Tender and Normal Bowel Sounds
Neurology: Awake, Tremors (Negative) and Other (Drowsy but easily arousable to voice and following all commands)
Skin: Warm and Dry
General: Pain (generalized pain + abd pain), Chills (Negative) and Sweats (Negative)
Assessment
-
Assessment: 34-year-old male with a past medical history of ESRD on HD MWF, insulin-dependent diabetes mellitus on subcutaneous insulin pump, recurrent DKA with insulin noncompliance, chronic right-sided pleural effusion (since 04/2023),
hypertension, pulmonary hypertension, alcohol use disorder, history of cardiac arrest in March 2024, and history of tobacco use disorder/polysubstance abuse who presents with alcohol intoxication after consuming an unknown amount of rum. He had come
to the ER earlier complaining of abdominal pain and signed out AMA at 9:30 PM and then return to the ER shortly after midnight intoxicated with alcohol. He admitted to drinking half a bottle of rum and whiskey and endorsed abdominal pain. He was
uncooperative nursing staff with agitation and slurred speech. Vitals in the ER showed he was afebrile to 97.9 �F, pulse rate 104, breathing at 17 breaths/min, BP 115/66 and saturating 96% on room air. Labs showed anemia at 9.3, metabolic acidosis
with venous pH 7.21, pCO2 49, glucose on chemistry of 898, serum bicarbonate level of 20, sodium level 128, and beta hydroxybutyrate 1.21. Patient was given IV regular insulin of 7 units in the ER, 1 L NS 0.9% and started on insulin drip and
admitted to the ICU for further care. Critical care services consulted for additional management/recommendations.
Chronic conditions [employer]SULTANT: ESRD on HD MWF, insulin-dependent diabetes mellitus with subcutaneous insulin pump, recurrent DKA with insulin noncompliance, chronic right-sided pleural effusion since April 2023, hypertension, pulmonary hypertension,
alcohol use disorder, anxiety/depression, history of cardiac arrest (March 2024), history of polysubstance abuse, and tobacco use disorder, chronic HFpEF, history of MRSA
Impression:
#DM type II complicated by DKA
#Pseudohyponatremia due to above (corrected serum Na approximately 134)
#Alcohol use disorder with acute intoxication (BAL: 246 mg/dL on 06/11/2024)
#Suspected suicidal intention with alcohol use on the evening of 06/10"#ESRD on HD MWF (of note he still continues to make urine once a day)
#Chronic anemia (likely due to CKD)
#Recent cardiac arrest (March 2024)
#Tobacco use disorder
#Chronic HFpEF
#Chronic right-sided pleural effusion (present since April 2023)
Plan:
- Continue with insulin infusion with NS + 10mEq of KCl at 125mL/hr
- Serial labs with q4hr BMP, Mg and PO4
- q1hr fingersticks
- Avoid hypoglycemia with goal BG>140 and <180
- Follow up A1C
- HD as per nephrology
- He is being set up for his session this AM
- prn pain meds, avoid Dilaudid if possible
- Monitor Hb and transfuse if needed to keep Hb>7g/dL, plt>20k
- Psych consult to assess for capacity as the pt has mentioned that he is interested in pursuing Hospice
- if pt has capacity then will consult case management-hospice
- Maintain SpO2 >90-94%
- prn nebulized bronchodilators
- Re-check EtOH level to assure it is downtrending
- Nicotine patch
- MSAS when appropriate
- Thiamine and folic acid
- Maintain MAP>65
- Replete electrolytes with K>4, Mg>2
- Incentive spirometer encouraged
- DVT ppx: HSQ
- Patient unable to leave AMA until assessed to have capacity and cleared by psych to go home.
Critical care statement: A total of 40 minutes of critical care time was provided for this patient today. This includes management of unstable vital signs, evaluation of the patient at bedside, reviewing the patient's pertinent medical records
including radiographs, microbiology, laboratory evaluations, and discussion with primary team, consultants, pharmacy, nutrition, physical therapy, case management, charge nurse, critical care nursing, and respiratory therapy.
[2024-06-11 08:21] LABS: Glucose - Point of Care > 600 mg/dl (70-99)
--- NOTE | 2024-06-11 08:26 | PTCARENOTE ---
Addendum entered by Yasmin Gonzales RN 06/11/24 08:30:
pt nsr on monitor, on 5LNC. turns and repositions self with supervision. pt with scattered scabs over body.
Original Note:
pt received from previous rn- pt restless, in leather restraints- switch to soft, see flowsheets as charted. pt remains on 1:1 with pct at the bedside. pt educated about plan of care, verbalized he wants to leave ama- Dr. Mckeon at bedside. POC
discussed with Dr. Mckeon and Dr. Seth. pt remains on insulin gtt and ivf. pt anuric. pt with left fistula positive bruit and thrill. right chest tunneled hd cath- c.d.i. all safety precautions in place, call luevano within reach.
--- NOTE | 2024-06-11 08:36 | PTCARENOTE ---
pt to remain on 6units on insulin gtt per Dr. Mckeon.
[2024-06-11 08:50] LABS: Glucose 748 mg/dl (70-99)
[2024-06-11] MEDS: HALDOL 1 MG IV (08:53)
[2024-06-11 09:16] LABS: Glucose - Point of Care > 600 mg/dl (70-99)
--- NOTE | 2024-06-11 09:45 | PTCARENOTE ---
pt agitated, ripped iv out, remains restrained for safety and on 1:1. Dr. Moses at bedside- iv team able to place new iv.
[2024-06-11] MEDS: COMPAZINE 5 MG IV (09:51)
[2024-06-11] MEDS: DILAUDID 0.5 MG IV (09:51)
--- NOTE | 2024-06-11 09:56 | W.CON.NEPH ---
Consultation
-
Date/Time Consultation Requested: June 11, 2024 9 AM
Date/Time Consultation Performed: June 11, 2024 9 AM
Requesting Provider: Dr. Salazar
Performing Provider: Dr. Lindsey
Reason for Consultation: ESRD
Medical History
-
Chief Complaint: End-stage renal
History of Present Illness:
The patient is a 34-year-old man with diabetes mellitus type 1 on insulin, blindness, and end-stage renal disease on hemodialysis MWF. He frequently comes to the hospital seeking pain medications including narcotics. He was recently in the
hospital at [facility]. He was there for 1 week. He has a notorious history of noncompliance and signing out AMA and does not regularly go to his own hemodialysis unit but instead shows up to the emergency room with complaints of
abdominal pain seeking narcotics for pain relief. He is maintained chronically on carvedilol for his hypertension is maintained on an insulin pump for his diabetes. He was only recently discharged from [facility] and came to [facility] with
complaints of abdominal pain requesting narcotics. Reportedly his mother told the doctors that he had suicidal ideation. He currently denies making any statements regarding suicidal ideation.
Past Medical History
end-stage renal disease on hemodialysis
PE
constipation
CHF
pleural effusions
depression/ anxiety
polysubstance abuse
Diabetes mellitus type I
Left upper extremity AV fistula revision for ulcers
Pulmonary hypertension
pericardial effusion with impending cardiac tamponade had pericardiocentesis 385 cc exudative fluid on 03/31, history of right pleural effusion status post thoracentesis 04/04/2024, Hx cardiac arrest Hx PE, ESRD on HD Friday,,
paroxysmal A-fib, splenic infarct, diabetes mellitus
biliary stent 2019
Past Surgical History: Other (LUE AVF Appendectomy PD Catheter placed / removed)
Social History
Tobacco: Smoker
Alcohol: Occasional
Drug: Other (h/o polysub abuse)
Family History
Family History: Not Pertinent
Allergies / Home Medications
Allergy/AdvReac Type Severity Reaction Status Date / Time
shellfish derived Allergy Hives Verified 06/11/24 00:34
�Medication �Instructions �Recorded �Confirmed �Type
amlodipine 10 mg tablet 10 mg PO DAILY Blood pressure 04/22/21 04/26/24 History
metoclopramide HCl 10 mg tablet 10 mg PO TIDPRN PRN nausea 04/07/23 04/26/24 History
(Reglan)
oxcarbazepine 150 mg tablet 150 mg PO HS Neurological Condition 07/24/23 04/26/24 History
trazodone 50 mg tablet 25 mg PO HS Sleep 01/05/24 04/26/24 History
Patient Own Insulin Pump 0 units SC .VIA PUMP diabetes 02/13/24 04/26/24 History
carvedilol 25 mg tablet 25 mg PO BID Blood Pressure 04/12/24 04/26/24 History
furosemide 40 mg tablet 40 mg PO BID@0800,1600 Fluid 04/12/24 04/26/24 History
Retention/Swelling
Review of Systems
-
Abdominal pain
All other systems: Negative unless noted
Physical Exam
Vital Signs
Vital Signs
Temp Pulse Resp BP Pulse Ox
97.3 F 96 20 147/87 98
06/11/24 07:37 06/11/24 08:32 06/11/24 08:32 06/11/24 08:32 06/11/24 08:32
Lab Results
WBC 4.7 10^3/uL (4.8-10.8) L 06/11/24 04:35
RBC 3.09 10^6/uL (4.70-6.10) L 06/11/24 04:35
Hgb 9.3 g/dL (13.0-18.0) L 06/11/24 04:35
Hct 28.4 % (39.0-52.0) L 06/11/24 04:35
Plt Count 217 10^3/uL (130-400) 06/11/24 04:35
eGFR 17.70 06/11/24 04:35
eGFR Cancelled 06/11/24 04:35
eGFR Cancelled 06/11/24 04:35
Phosphorus 4.3 mg/dl (2.5-4.5) 06/11/24 04:35
Phosphorus Cancelled 06/11/24 04:35
Albumin 3.3 g/dl (3.5-5.0) L 06/11/24 01:10
Physical Exam
Patient is awake alert oriented and in no distress. Mood and affect were pleasant, insight and judgment were good. Pupils are equal round and reactive to light, extraocular movements are intact, sclera were anicteric. Hearing was normal, ears and
nose are intact. Oropharynx was clear. Neck was supple with trachea midline and no thyromegaly. Heart was regular rate and rhythm without rubs. Lower extremities without edema. Lungs were clear to auscultation bilaterally and with normal
excursion. Abdomen was soft, nontender, with normal active bowel sounds, and no hepatosplenomegaly. Skin was without rash and with normal turgor.
Vascular Access: AVF
Data Reviewed
-
Labs: Labs Reviewed by me (Hemoglobin 9.3, potassium 4.2, glucose 748)
Old Records: Requested (From [facility]) and Reviewed
Assessment/Plan
-
Impression:
ESRD (MWF) last full HD last friday04/21/2024
Status post PEA/Asystole 03/13/24
PAF : briefly after code on 03/13/24
Chronic noncompliance with dialysis
ESRD MWF ([facility]),
left UE AVF
DKA hx/metabolic acidosis
Hyperkalemia
Hyponatremia
Chronic Abdominal Pain / Gastroparesis
Pulmonary hypertension
Polysubstance abuse
Anxiety
History of biliary drain
Anemia
Right pleural effusion--s/p R thoracentesis for pleural effusion with 1.8L transudate 02/17/24
History of pericardial effusion requiring pericardial drain
Plan:
Dialysis today, 3.5 hours
Glucose management per primary team
Psychiatry evaluation though patient denies suicidal ideation
Avoid narcotics
--- NOTE | 2024-06-11 10:18 | W.CON.PAL ---
Consultation
-
Date/Time Consultation Requested: 06/11/2024 9am
Date/Time Consultation Performed: 06/11/2024 11am
Requesting Provider: Ian Mckeon
Performing Provider: OSCAR Arzola
Reason for Consult: Goals of Care Discussion
Primary Diagnosis: ESRD on HD
Related Diagnosis: DM1, anxiety/depression, history of noncompliance, substance use disorder
Consult Requested By: Patient's Physician
Reason for Admission
Illness Course/HPI
Patient is a 34 year old M with PMH of type 1 DM with insulin pump, blindness, ESRD on HD MWF, anxiety/depression, substance use disorder, chronic abdominal pain/gastroparesis, PEA arrest c/b traumatic pericardial effusion admitted with complaints
of abdominal pain. Of note, patient with multiple admissions for similar complaints. Per chart review, requests pain medications and frequently leaves AMA if pain medications not provided. In and out of multiple hospitals.
Upon admission, was intoxicated and agitated/belligerent with staff in ED. Glucose on labs 838. Insulin pump not functioning and was discontinued. Started on insulin infusion and admitted to ICU.
Per team, has been expressing not wanting to continue with HD. Continues to request pain medications and to leave AMA. Psych eval pending given ?history of suicidal ideations.
Consult for GOC.
Functional Status & Support Systems
ADLS: Independent
IADLS: Independent
Jewel Setter/Family Support: mother Cherise
Review of Advanced Directives
Advanced Care Documentation Status: Incomplete
Objective Data
-
Objective Data:
Vital Signs
Temp Pulse Resp BP Pulse Ox
97.3 F 96 20 147/87 98
06/11/24 07:37 06/11/24 08:32 06/11/24 08:32 06/11/24 08:32 06/11/24 08:32
Laboratory Results
06/11/24 04:35
PT 16.5 Sec (11.4-14.6) H 06/11/24 03:07
INR 1.32 06/11/24 03:07
APTT 33.8 Sec (23.4-35.0) 06/11/24 04:35
Total Protein 5.7 g/dl (6.3-8.2) L 06/11/24 01:10
Albumin 3.3 g/dl (3.5-5.0) L 06/11/24 01:10
Palliative Performance Scale
Palliative Performance Scale:
PPS Level Ambulation Activity & Evidence of Disease Self Care Intake Conscious Level
100% Full Normal Activity & Work; Full Intake Full
No Evidence of Disease
90% Full Normal Activity & Work; Full Normal Full
Some Evidence of Disease
80% Full Normal Activity with Effort Full Normal or Full
Some Evidence of Disease Reduced
70% Reduced Unable Normal Job/Work Full Normal or Full
Significant Disease Reduced
60% Reduced Unable Hobby/Housework Occasional Normal or Full or Confusion
Significant Disease Assistance Reduced
50% Mainly Sit/Lie Unable to do Any Work Considerable Normal or Full or Confusion
Extensive Disease Assistance Req'd Reduced
40% Mainly in Bed Unable to do Most Activity Mainly Assistance Normal or Full or Drowsy;
Extensive Disease Reduced +/- Confusion
30% Totally Bed Unable to do Any Activity Total Care Normal or Full or Drowsy;
Bound Extensive Disease Reduced +/- Confusion
20% Totally Bed Bound Unable to do Any Activity Total Care Minimal to Full or Drowsy;
Extensive Disease Sips +/- Confusion
10% Totally Bed Bound Unable to do Any Activity Total Care Mouth Care Drowsy or Coma;
Extensive Disease Only +/- Confusion
0%
PPS Score Level: 80
Physical Exam
-
General: Other (sleeping)
HEENT: Normocephalic
Cardiac: Regular Rhythm
Skin: Warm
Neuro: AO x 3
Psych: Calm
Assessment / Plan
-
Assessment/Plan:
Based on the current condition, prognosis, comorbidities, patient's goals & wishes as discussed above, the palliative care team has made the following recommendations:
1. Encounter for palliative care
-consult for GOC.
- patient with ESRD, polysubstance use disorder, multiple admits at various hospitals with abdominal pain requesting pain medications, frequent AMAs. Admitted with abdominal pain, DKA and started on insulin infusion. Per team, patient was refusing
HD overnight after not getting pain medications. Was also intoxicated. Now agreeable to HD per nephrology.
- at bedside this morning was asleep, calm. Per RN, had just fallen asleep and calmed down so did not wake him. Mother at bedside earlier in the day but no longer there.
- history of possible suicidal ideations, unclear capacity for decision making. Psych evaluation pending for today. Follow up.
- difficult situation with decision making impacted by substance use disorder. Agreeable to HD now after dilaudid dose earlier, but would be difficult/impossible to force HD on an unwilling patient if refuses in the future even if deemed to not have
capacity.
- spoke with Dr. Mckeon - plan for possible 302 pending psych evaluation.
- will follow
2. Chronic abdominal pain
- consider GI eval for gastroparesis if patient amendable
3. ESRD on HD, history of noncompliance
- seen by nephrology this morning and planned for HD today.
- per chart review, history of non compliance which is ongoing. Frequently skips HD at his normal facility and comes to ED.
Please tiger text with questions.
The above recommendations were discussed with the patient/family and medical team.
Care Reviewed
Data Reviewed
EKG Tracings: Tracing Reviewed and Report Reviewed
Medical Tests: I reviewed
Time
Start Date: 06/11/24
Start Time: 11:00
Stop Date: 06/11/24
Stop Time: 12:15
Time Spent:
40 minutes
[2024-06-11 10:35] LABS: Glucose 627 mg/dl (70-99)
[2024-06-11 11:07] LABS: Glucose - Point of Care 386 mg/dl (70-99)
[2024-06-11] MEDS: RETACRIT 8000 UNITS IV (11:13)
--- NOTE | 2024-06-11 11:31 | W.PN.NEPH.HD ---
Assessment
-
Seen on HD. no new complaints. VSS, access ok
Progress Note - Hemodialysis
-
Date of Service: June 11, 2024
Duration: 30 minutes and 3 hours
Potassium Bath: 3
Calcium Bath: 2.5
Opti-Dialyzer: 160
Ultrafiltration: Other (3kg)
Blood Flow: 400
Dialysate Flow: 600
Heparin: 500x2
EPO: 8000 units
[2024-06-11] MEDS: KCL 1005 MEQ IV (12:04)
--- NOTE | 2024-06-11 12:06 | PTCARENOTE ---
pt resting comfortably right now, on dialysis- pt tolerating. remains on insulin gtt and ivf. on 1:1. assessment unchanged.
[2024-06-11 12:12] LABS: Glucose - Point of Care 239 mg/dl (70-99)
[2024-06-11 12:39] LABS: Alcohol 56 mg/dl; Blood Urea Nitrogen 14 mg/dl (9-20); Calcium 8.4 mg/dl (8.4-10.2); Carbon Dioxide 26 mmol/L (22-30); Chloride 99 mmol/L (98-107); Glucose 259 mg/dl (70-99); Potassium 3.1 mmol/L (3.5-5.1); Sodium 135 mmol/L (135-145); eGFR 33.94
[2024-06-11] MEDS: HEPARIN 4300 UNITS INTRACATH (13:13)
[2024-06-11 13:15] LABS: Glucose - Point of Care 153 mg/dl (70-99)
--- NOTE | 2024-06-11 13:26 | CM ---
Addendum entered by Williams Villalpando 06/11/24 14:24:
Pt left AMA.
Original Note:
CM following re: discharge planning.
Discussed in rounds, reviewed pt's chart, met with pt.
Pt is a 33 year old male, admitted with primary dx of DM type II complicated by DKA. Alcohol use disorder with acute intoxication (BAL: 246 mg/dL on 06/11/2024)
Pt is well know to this CM from previous admissions. Pt lives with mother and father in a 2SH, has been on HD treatment for 3 years, [facility], [facility] chair time, [facility] transport. Pt denied being non-compliant with care including using
insulin pump, reporting to HD center on a regular schedule. Pt expressed his agreement to meet with [facility] team. [facility].
PCP: Casper Arroyo
Pharmacy: [facility].
D/C plan: home with resumptions of HD treatment at [facility], [facility] to follow and family support.
CM will follow with discharge plan updates as hospitalization progresses
--- NOTE | 2024-06-11 13:40 | WOUNDNOTE ---
WOC RN NOTE: Reviewed chart, spoke to FRANCISCA Hoffman and met with patient while he was receiving dialysis. Silicone foam dressing were noted on UE. This senior copywriter explained role and reason for visit. Patient declined to have wounds assessed at this time.
Patient made aware that his RN can contact WOC RN in the event he changes his mind. FRANCISCA Hoffman given update.
--- NOTE | 2024-06-11 13:57 | CON.MD ---
Consultation - Medical
-
patient seen chart reviewed. discussed w nursing and with dr joel. the patient is a 34 year old male with serious medical diagnoses who came to on 06/10 for abdominal pain. he was according to the chart seeking 'narcotic analgesia' which he was
told would not happen and he left ama. he the reappeared and was admitted with abdominal pain . he was described as intoxicated and belligerent and he told me he had consumed alcohol prior to coming in (1/2 bottle). his blood sugar was found to be
748 and he was admitted to icu. he has intermittently requested to leave ama but decided this am to undergo dialysis and stayed but is not again wishing to leave ama. according to nursing his mother suggested he had told her he was suicidal which
he adamantly denied. the patient says he is NOT depressed. he said he has not sought rx for depression or anxiety. he said he has never attempted to take his life. he used to own guns but he sold them. he recently moved here from [facility] [place]. he likes [place]
better bc of 'the '. he does not have a lot of friends here at this point so is relatively isolated. he watches tv, [employer], and is interested in cars although does not drive at this point. there is nothing to suggest psychosis. his energy
is limited by his medical conditions see below.
past medical hx patient dx as diabetic at age 13. he says he did not have a lot of support eg groups counseling at [place] in formerly [facility], [facility] where he was treated as a child. he has had many complications. he has esrd and is on dialysis at [facility]
and [facility]. he has hx cardiac arrest PE splenic infarct afib pulmonary htn pleural efffusion w recent pericardialcentesis, constipation anemia bp today 147/87 pulse 96 afebrile. blood sugar earlier this am 259. he told me most recently blood sugar
in the '100's' (nursing says 126) he has insulin pump and is waiting for a new sensor. he has an commissioned fire officer and pcp he sees every few months
substance abuse despite recent drinking and opiate seeking behavior he denies any hx of ongoing substance abuse
fh denied
social hx resides w both parents on disability few friends in [place] few hobbies or interests.
mse alert ox3 cooperative with this interview. speech and thought process nl affect appropriate mood neutral no si no hi no psychosis intelligence average insight judgment ok cognition unimpaired
dx adjustment disorder unspecified r/o opiate etoh abuse
plan while no one can predict the future with certainly this patient does not appear to present with imminent threat of suicidality. he does not appear to be particularly depressed at present. he seems to understand the gravity of his medical
illnesses and says he will continue w rx. says he is calling [facility] today to see if they want him to present tomorrow for dialysis given that he agreed to and had dialysis today. the fact that he accepted dialysis today in itself suggests that he
is NOT suicidal. before this note was completed patient had already left [facility] and it is the opinion of this business writer that he is competent to sign himself out. .
[2024-06-11 14:10] LABS: Glycohemoglobin (HgbA1c) 7.4 % (4.0-5.6)
[2024-06-11 14:14] LABS: Glucose - Point of Care 126 mg/dl (70-99)
--- NOTE | 2024-06-11 14:17 | PTCARENOTE ---
Dr. Tang in to see pt- pt finished dialysis treatment- Dr. Tang explained risks to pt as well as Dr. Mckeon about leaving ama (see dr. tang note) pt left ama. right hand int removed-pressure dressing applied. belongings given back to pt.
[2024-06-11 15:02] LABS: Hepatitis B Surface Antigen Negative (Negative)
[2024-06-11 15:19] LABS: Hepatitis B Surface Antibody Positive
--- NOTE | 2024-06-11 17:21 | W.PN.UPDATE ---
Update Note
Progress Note Update
Patient wanted to go home AGAINST MEDICAL ADVICE. There is some concern about his decision-making capacity and judgment for which psychiatry consult was placed and psychiatry did remind him to be capable of making his own decisions. Had a
discussion with the patient about his risks and consequences of having untreated DKA, acute alcohol intoxication/withdrawal. Patient is fully aware of his current medical condition and understands the risk of leaving the hospital AGAINST MEDICAL
ADVICE. Left AGAINST MEDICAL ADVICE document signed by my supervising physician.
--- NOTE | 2024-06-11 17:31 | W.DCSUMMARY ---
Addendum entered and electronically signed by Ian Mckeon MD 06/12/24 13:19:
Read, reviewed, and agree. See same day progress note for additional details. Time spent coordinating care, DC planning, review of DC plan of care with resident, transition of care, review of records in EMR, med rec, consults, notes, d/w
consultants, nursing, family, and CM mins
Original Note:
Documented by User: Julia Felix MD, Resident 06/11/24 17:43
Discharge Summary
Discharge Data
Date of Admission: 06/11/24
Date of Discharge: 06/11/24
-
Pending Results: No
Hospital Course
Admission diagnosis-
Acute alcohol intoxication.
Acute DKA secondary to alcohol intoxication.
Acute on chronic abdominal pain
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
Type 1 diabetes mellitus with recurrent DKA's
Substance seeking behavior
anemia of chronic disease
Hypertension
ESRD on HD
Anxiety/depression
Chronic abdominal pain.
Hospital course-
Patient was admitted to the hospital over for 1 day with the above-mentioned admission diagnosis. Upon admission his anion gap was at 16, his blood alcohol levels were at 246, his blood glucose levels -at 896, and patient was agitated. Overnight
he was given an insulin bolus, and was started on insulin drip, IV fluids, potassium, supportive management for acute alcohol intoxication including PPIs, acetaminophen for pain, thiamine folate. In the morning of 06/11/2024-patient was extremely
agitated and was screaming to leave the hospital and sign AMA..
Patient's anion gap on 06/11 increased to 18 and patient's insulin drip was adjusted along with supplementation of potassium and IV fluids. Due to alcohol intoxication, acute DKA, his family bringing up active suicidal ideation there was some concern
about patient making a judgment to leave the hospital AGAINST MEDICAL ADVICE. Hence a psychiatric consult was placed and psychiatry did not remind him to be competent to make his own medical decisions. Patient signed AGAINST MEDICAL ADVICE and
left the hospital.
During his hospital course he also received 1 round of hemodialysis in the a.m. today. However due to evidenced history of drug-seeking behavior patient was not given any narcotics during this hospital admission.
He continues to have poor prognosis given his acuity of illness and is at risk of sudden cardiac .
Discharge Plan
-
Patient Disposition: Against Medical Advice
Prescriptions:
No Action
amlodipine 10 MG tablet
10 mg PO DAILY
metoclopramide HCl [Reglan] 10 mg Tablet
10 mg PO TIDPRN PRN (Reason: nausea)
oxcarbazepine 150 mg tablet
150 mg PO HS
trazodone 50 mg Tablet
25 mg PO HS
Patient Own Insulin Pump
0 units SC .VIA PUMP
Rx Instructions:
Novolog insulin
furosemide 40 mg Tablet
40 mg PO BID@0800,1600
carvedilol 25 mg Tablet
25 mg PO BID
Discharge Date and Time
Discharge Date/Time: 06/11/24 14:00
Print Language: NIGERIAN

Documented by User: Ian Mckeon MD 06/12/24 13:18
Discharge Summary
Discharge Data
Date of Admission: 06/11/24
Date of Discharge: 06/11/24
Discharge Plan
-
Patient Disposition: Against Medical Advice
Prescriptions:
No Action
amlodipine 10 MG tablet
10 mg PO DAILY
metoclopramide HCl [Reglan] 10 mg Tablet
10 mg PO TIDPRN PRN (Reason: nausea)
oxcarbazepine 150 mg tablet
150 mg PO HS
trazodone 50 mg Tablet
25 mg PO HS
Patient Own Insulin Pump
0 units SC .VIA PUMP
Rx Instructions:
Novolog insulin
furosemide 40 mg Tablet
40 mg PO BID@0800,1600
carvedilol 25 mg Tablet
25 mg PO BID
Discharge Date and Time
Discharge Date/Time: 06/11/24 14:00
Print Language: NIGERIAN
== END 2024-06-11 14:00 | disposition left against medical advice (07) | DRG 894 ==
LOC: ICU 04:15
PROVIDERS: Student in an Organized Health Care Education/Training Program; ADMITTING PHYSICIAN Hospitalist; ATTENDING PHYSICIAN Hospitalist; CONSULT PHYSICIAN Internal Medicine Critical Care Medicine; CONSULT PHYSICIAN Psychiatry & Neurology Psychiatry; EMERGENCY PHYSICIAN Student in an Organized Health Care Education/Training Program; FAMILY PHYSICIAN Internal Medicine; OTHER PHYSICIAN Nurse Practitioner Gerontology; OTHER PHYSICIAN Specialist
PROC: 5A1D70Z Performance of Urinary Filtration, Intermittent, Less than 6 Hours Per Day (ICD-10-PCS; 2024-06-11)
DX: F10.129 Alcohol abuse with intoxication, unspecified (principal); N18.6 End stage renal disease; I13.2 Hypertensive heart and chronic kidney disease with heart failure and with stage 5 chronic kidney disease, or end stage renal disease; E87.1 Hypo-osmolality and hyponatremia; I50.32 Chronic diastolic (congestive) heart failure; Z99.2 Dependence on renal dialysis; E10.22 Type 1 diabetes mellitus with diabetic chronic kidney disease; F17.210 Nicotine dependence, cigarettes, uncomplicated; E10.43 Type 1 diabetes mellitus with diabetic autonomic (poly)neuropathy; G89.29 Other chronic pain; Z91.199 Patient's noncompliance with other medical treatment and regimen due to unspecified reason; F32.9 Major depressive disorder, single episode, unspecified; D63.8 Anemia in other chronic diseases classified elsewhere; E87.5 Hyperkalemia; Z91.158 Patient's noncompliance with renal dialysis for other reason; Z79.4 Long term (current) use of insulin; F43.22 Adjustment disorder with anxiety; I27.20 Pulmonary hypertension, unspecified; F10.10 Alcohol abuse, uncomplicated; Z91.148 Patient's other noncompliance with medication regimen for other reason; Y90.8 Blood alcohol level of 240 mg/100 ml or more; Z53.29 Procedure and treatment not carried out because of patient's decision for other reasons
CPT/HCPCS: 80048; 80053; 82010; 82077; 82805; 82947; 82962; 83036; 83735; 84100; 85025; 85027; 85610; 85730; 86706; 87340; 93005; 96361; 96374; 99291; G0257; J3480; P9047; Q5106

== ENCOUNTER 2024-07-03 09:42 | Inpatient (IN) | payer OTHER, SELFPAY ==
[2024-07-03] VITALS (54 sets, daily range): BP systolic 102–200; BP diastolic 57–156; BMI 22.5; BMI 23.6
[2024-07-03 05:30] LABS: Glucose - Point of Care > 600 mg/dl (70-99)
[2024-07-03 06:15] LABS: % Basophils 0.7 % (0-2); % Eosinophils 0.4 % (0-6); % Immature Granulocytes 0.6 % (0-0.5); % Lymphocytes 6.8 % (20.5-51.1); % Monocytes 7.6 % (1.7-9.3); % Neutrophils 83.9 % (42.2-75.2); Absolute Basophils 0.1 10^3/uL (0-0.2); Absolute Immature Granulocytes 0.1 10^3/uL (0-0.05); Absolute Lymphocytes 0.7 10^3/uL (1.2-3.4); Absolute Monocytes 0.8 10^3/uL (0.1-0.6); Hematocrit 29.2 % (39.0-52.0); Hemoglobin 9.7 g/dL (13.0-18.0); Mean Corp Hgb Conc. 33.2 g/dL (33.0-37.0); Mean Corpuscular Hgb 29.7 pg (27.0-31.0); Mean Corpuscular Volume 89.3 fL (80.0-94.0); Mean Platelet Volume 9.5 fL (7.4-10.4); Nucleated Red Blood Cells % 0 % (-); Platelet Count 268 10^3/uL (130-400); Red Blood Cell Count 3.27 10^6/uL (4.70-6.10); Red Cell Dist. Width 17.2 % (11.5-14.5); White Blood Cell Count 10.8 10^3/uL (4.8-10.8)
[2024-07-03] MEDS: ZOFRAN 4 MG IV ×3 (06:50→17:48)
[2024-07-03 06:51] LABS: pH - Venous 7.34 (7.32-7.43)
--- NOTE | 2024-07-03 07:02 | ED.GENMED ---
History of Present Illness
General
Chief Complaint: Blood Sugar Problem
Source: patient and records
Exam Limitations: none
Time Seen by Provider: 07/03/24 06:27
Nursing documentation reviewed up to this point in time: agreed with
History of Present Illness
History of Present Illness:
34-year-old male ESRD diabetes gets dialysis Friday), living at home now with his parents complicated past medical history outlined in the EMR, GERD 20 years of diabetes chronic pain syndrome cardiac arrest pleural effusion
gastroparesis uses as needed oxygen presents with nausea vomiting abdominal pain shortness of breath
Past History
Past History
ED Past Medical History: Arrthythmia, CHF, HTN, IDDM, Renal failure and Other
ED Past Surgical History: Appendectomy and Other (Left AV fistula, biliary drain removed)
Patient has exhibited threatening behavior?: No
PSI?: No
Social History
Tobacco: Smoker
Alcohol: None
Drug: None
Personal: Single
Living: with family
Employment: Disabled
Family History
Family History: Other
Review of Systems
Review of Systems
All Other Systems: Not applicable
Constitutional: Reports fatigue; Denies fever
EENT: Reports no symptoms
Respiratory: Reports trouble breathing
Cardiac: Denies chest pain
ABD/GI: Reports abdominal pain, nausea and vomiting
: Reports no symptoms
Musculoskeletal: Reports no symptoms
Neurological: Reports weakness
Endocrine: Reports no symptoms
Phy Exam
Physical Exam
Physical Exam:
Physical Exam
General: Chronically ill-appearing
Neck: Lips are dry
Heart: Tachycardic
Lungs: Diminished breath sounds on the right
Abdomen: Distended upper abdominal
Neuro: alert and oriented. Globally weak lying on his
Skin: Warm
Psychiatric: Disheveled cooperative
Extremities: no edema.
Course
Orders/Labs/Results
Orders:
Orders
07/03/24 05:32
Bedside Glucose- Treatment Q1H
IV Insert/Care/Rem.- Treatment PRN
Urine Drug Abuse Screen Urgent
0.9% Sodium Chloride 1000 ml [Nss] 1,000 ml IV BOLUS
07/03/24 05:33
Urinalysis Reflex To Culture Urgent
07/03/24 06:00
Complete Blood Count/With Diff Urgent
07/03/24 06:28
CR Chest Portable - 1 View Urgent
Comment:
Reason For Exam: sob
Reason Study Needs to be Portable: Patient Unstable
07/03/24 06:43
Alcohol Urgent
B-Hydroxybutyrate Urgent
Comprehensive Metabolic Panel Urgent
Direct Bilirubin Urgent
pH - Venous Urgent
07/03/24 06:44
NT-proBNP Urgent
07/03/24 06:47
Ondansetron Injectable [Zofran] 4 mg IV NOW STA
07/03/24 06:48
Ondansetron Injectable [Zofran] 4 mg .ROUTE .STK-MED ONE
Abnormal Lab Results
07/03/24 07/03/24
05:28 06:00
RBC 3.27 L 10^6/uL
(4.70-6.10)
Hgb 9.7 L g/dL
(13.0-18.0)
Hct 29.2 L %
(39.0-52.0)
RDW 17.2 H %
(11.5-14.5)
Abs Immat Gran (auto) 0.1 H 10^3/uL
(0-0.05)
Absolute Neuts (auto) 9.0 H 10^3/uL
(1.4-6.5)
Absolute Lymphs (auto) 0.7 L 10^3/uL
(1.2-3.4)
Absolute Monos (auto) 0.8 H 10^3/uL
(0.1-0.6)
Immature Gran % 0.6 H %
(0-0.5)
Neutrophils % 83.9 H %
(42.2-75.2)
Lymphocytes % 6.8 L %
(20.5-51.1)
POC Glucose > 600 H* mg/dl
(70-99)
07/03/24 06:00
Vital Signs
Initial and Last Documented VS:
Initial Vital Signs
Temp Pulse Resp BP Pulse Ox
98.2 F 99 18 199/135 94
07/03/24 05:20 07/03/24 05:20 07/03/24 05:20 07/03/24 05:20 07/03/24 05:20
Last Documented Vital Signs
Temp Pulse Resp BP Pulse Ox
98.2 F 98 24 184/110 94
07/03/24 06:13 07/03/24 06:15 07/03/24 06:15 07/03/24 06:15 07/03/24 06:15
MDM/Problems Addressed
Differential Diagnosis Includes:
DKA, HHNK, hyperkalemia, pleural effusion, chronic pain syndrome, respiratory failure, narcotic withdrawal,
MDM/Problems Addressed:
Chest pain shortness of breath nausea vomiting
Chronic conditions affecting care: DM, HTN, CAD, Cardiomyopathy, Arrhythmia, PVD, Neurological disorder, Psychiatric illness and Kidney disease
Acute Exacerbation and/or Progression of Chronic Illness: DM, HTN, CAD, Cardiomyopathy, Arrhythmia, PVD, Neurological disorder, Psychiatric illness and Kidney disease
*Radiology
Radiology exam reviewed: preliminary read by ED provider
*Pulse Oximetry
Patient hypoxic: no
*EKG
Interpreted by ED Provider?: Yes
Interpretation: abnormal
Comparison EKG: no comparison EKG present
Heart Rate: 80
Rate: normal
Rhythm: sinus
Ischemia: T-wave inversion
*Video Clerk Interpretation
Rate: normal
Interpretation: normal
Heart Rate: 78
Rhythm: sinus
*Critical Care Note
Total Time (30-74mins, 75-104mins- exclusive of procedures): 30
ED Attending Note
-
Portions of this chart may have been created with voice recognition software.� Occasional wrong word or��sound alike� substitutions may have occurred due to the inherent limitations of voice recognition software.
Discharge Plan
Departure
Prescriptions:
No Action
amlodipine 10 MG tablet
10 mg PO DAILY
metoclopramide HCl [Reglan] 10 mg Tablet
10 mg PO TIDPRN PRN (Reason: nausea)
oxcarbazepine 150 mg tablet
150 mg PO HS
trazodone 50 mg Tablet
25 mg PO HS
Patient Own Insulin Pump
0 units SC .VIA PUMP
Rx Instructions:
Novolog insulin
furosemide 40 mg Tablet
40 mg PO BID@0800,1600
carvedilol 25 mg Tablet
25 mg PO BID
Referrals:
Casper Arroyo MD [Family Provider] -
Interventions
Interventions:
*Risk Screen - Suicide Last Done: 07/03/24 05:20
*General Assessment Last Done: 07/03/24 05:51
*Neglect/Abuse Screening Last Done: 07/03/24 05:20
ED- Fall Risk Assessment Last Done: 07/03/24 05:51
*ED COVID-19 Vaccine History Last Done: 07/03/24 05:20
ED- Neurological Assessment Last Done: 07/03/24 05:40
Discharge Date and Time
Print Language: CITIZEN OF [place]
[2024-07-03 07:25] LABS: NT-proBNP > 27000 pg/ml
[2024-07-03 08:28] LABS: ALT (SGPT) 12 U/L (0-50); AST (SGOT) 25 U/L (17-59); Albumin 3.5 g/dl (3.5-5.0); Alkaline Phosphatase 128 U/L (38-126); B-Hydroxybutyrate 0.46 mmol/L (0.02-0.27); Blood Urea Nitrogen 55 mg/dl (9-20); Calcium 9.1 mg/dl (8.4-10.2); Carbon Dioxide 21 mmol/L (22-30); Chloride 96 mmol/L (98-107); Direct Bilirubin 0.9 mg/dl (0.0-0.4); Estimated Creatinine Clearance 16 ml/min; Potassium 6.6 mmol/L (3.5-5.1); Sodium 133 mmol/L (135-145); Total Protein 6.2 g/dl (6.3-8.2); eGFR 11.41
[2024-07-03 08:36] LABS: Alcohol None Detected
--- NOTE | 2024-07-03 08:47 | W.CON.NEPH ---
Consultation
-
Date/Time Consultation Requested: 07/03/24 8am
Date/Time Consultation Performed: 07/03/24 850
Requesting Provider: Dr. Jones
Performing Provider: Dr Lindsey
Reason for Consultation: ESRD
Medical History
-
Chief Complaint: End-stage renal
History of Present Illness:
The patient is a 34-year-old man with diabetes mellitus type 1 on insulin, blindness, and end-stage renal disease on hemodialysis MWF. He frequently comes to the hospital seeking pain medications including narcotics. He says that his last dialysis
was on at [facility]. He said that he only stayed for 1 hour before leaving because he did not feel good. He says that he went to treatment as an outpatient on Friday and had a full treatment without issue. He comes to the emergency room
today with nausea vomiting abdominal pain as well as reports of shortness of breath. His pain is unchanged from prior. Blood work shows a potassium of 6.6.
He has a notorious history of noncompliance and signing out AMA and does not regularly go to his own hemodialysis unit but instead shows up to the emergency room with complaints of abdominal pain seeking narcotics for pain relief. He is maintained
chronically on carvedilol for his hypertension is maintained on an insulin pump for his diabetes.
Past Medical History
end-stage renal disease on hemodialysis
PE
constipation
CHF
pleural effusions
depression/ anxiety
polysubstance abuse
Diabetes mellitus type I
Left upper extremity AV fistula revision for ulcers
Pulmonary hypertension
pericardial effusion with impending cardiac tamponade had pericardiocentesis 385 cc exudative fluid on 03/31, history of right pleural effusion status post thoracentesis 04/04/2024, Hx cardiac arrest Hx PE, ESRD on HD Friday,,
paroxysmal A-fib, splenic infarct, diabetes mellitus
biliary stent 2019
Past Surgical History: Other (LUE AVF Appendectomy PD Catheter placed / removed)
Social History
Tobacco: Smoker
Alcohol: Occasional
Drug: Other (h/o polysub abuse)
Family History
Family History: Not Pertinent
Allergies / Home Medications
Allergy/AdvReac Type Severity Reaction Status Date / Time
shellfish derived Allergy Hives Verified 07/03/24 05:20
�Medication �Instructions �Recorded �Confirmed �Type
amlodipine 10 mg tablet 10 mg PO DAILY Blood pressure 04/22/21 07/03/24 History
metoclopramide HCl 10 mg tablet 10 mg PO TIDPRN PRN nausea 04/07/23 07/03/24 History
(Reglan)
oxcarbazepine 150 mg tablet 150 mg PO HS Neurological Condition 07/24/23 07/03/24 History
trazodone 50 mg tablet 25 mg PO HS Sleep 01/05/24 07/03/24 History
Patient Own Insulin Pump 0 units SC .VIA PUMP diabetes 02/13/24 07/03/24 History
carvedilol 25 mg tablet 25 mg PO BID Blood Pressure 04/12/24 07/03/24 History
furosemide 40 mg tablet 40 mg PO BID@0800,1600 Fluid 04/12/24 07/03/24 History
Retention/Swelling
Review of Systems
-
Nausea vomiting abdominal pain, shortness of breath.
All other systems: Negative unless noted
Physical Exam
Vital Signs
Vital Signs
Temp Pulse Resp BP Pulse Ox
98.2 F 101 26 102/82 95
07/03/24 06:13 07/03/24 07:45 07/03/24 07:45 07/03/24 07:30 07/03/24 07:45
Lab Results
WBC 10.8 10^3/uL (4.8-10.8) 07/03/24 06:00
RBC 3.27 10^6/uL (4.70-6.10) L 07/03/24 06:00
Hgb 9.7 g/dL (13.0-18.0) L 07/03/24 06:00
Hct 29.2 % (39.0-52.0) L 07/03/24 06:00
Plt Count 268 10^3/uL (130-400) 07/03/24 06:00
Sodium 133 mmol/L (135-145) L 07/03/24 07:37
Potassium 6.6 mmol/L (3.5-5.1) H* 07/03/24 07:37
Chloride 96 mmol/L (98-107) L 07/03/24 07:37
Carbon Dioxide 21 mmol/L (22-30) L 07/03/24 07:37
BUN 55 mg/dl (9-20) H 07/03/24 07:37
Creatinine 6.2 mg/dL (0.7-1.3) H* 07/03/24 07:37
eGFR 11.41 07/03/24 07:37
Calcium 9.1 mg/dl (8.4-10.2) 07/03/24 07:37
Yes-B-Xisuwbcfqjr Pept > 18582 pg/ml 07/03/24 06:44
Albumin 3.5 g/dl (3.5-5.0) 07/03/24 07:37
Physical Exam
Patient is awake alert oriented and in no distress. Mood and affect were pleasant, insight and judgment were good. Pupils are equal round and reactive to light, extraocular movements are intact, sclera were anicteric. Hearing was normal, ears and
nose are intact. Oropharynx was clear. Neck was supple with trachea midline and no thyromegaly. Heart was regular rate and rhythm without rubs. Lower extremities with 2+ edema. Lungs were coarse to auscultation bilaterally and with normal
excursion. Abdomen was soft, tender, with normal active bowel sounds, and no hepatosplenomegaly. Skin was without rash and with normal turgor.
Data Reviewed
-
Radiology: Image Personally Visualized and interpreted (Chest x-ray on July 03, 2024 by my reading shows right pleural effusion moderate, left small effusion possible opacity left lower lobe, cardiomegaly)
Medical Tests (Nuc Med, Echo etc): Image Personally Visualized and interpreted (EKG on July 03, 2020 for memory shows normal sinus rhythm anterior T wave abnormality)
Assessment/Plan
-
Impression:
ESRD (MWF) last full HD last friday04/21/2024
Status post PEA/Asystole 03/13/24
PAF : briefly after code on 03/13/24
Chronic noncompliance with dialysis
ESRD MWF ([facility]),
left UE AVF
DKA
Hyperkalemia
Hyponatremia
Chronic Abdominal Pain / Gastroparesis
Pulmonary hypertension
Polysubstance abuse
Anxiety
History of biliary drain
Anemia
Right pleural effusion--s/p R thoracentesis for pleural effusion with 1.8L transudate 02/17/24
History of pericardial effusion requiring pericardial drain
Plan:
Dialysis today, 3.5 hours
Optimize weight
Glucose management per primary team
Psychiatry evaluation though patient denies suicidal ideation
Avoid narcotics
If shortness of breath persist, thoracentesis may be considered again.
[2024-07-03] MEDS: NOVOLIN R INSULIN INFUSION 100 IV (08:58)
[2024-07-03 09:10] LABS: Glucose 700 mg/dl (70-99)
--- NOTE | 2024-07-03 09:42 | HPS.HSE ---
Addendum entered and electronically signed by Marcos Wallace MD 07/03/24 22:14:
Attending Addendum-
I performed a history and physical exam of the patient and discussed his management with the resident. I reviewed the resident's note and agree with the documented findings and plan of care CC/HPI- Patient presents from home secondary to abdominal
pain N/V x 24 hours. Ran out of insulin for insulin pump. Full 12 point ROS reviewed and negative except as documented Exam- vitals reviewed in EMR GEN-appears uncomfortable heart tachycardic abd TTP generalized no rebound or guarding ext trace
edema LUE fistula present Right IJ tuned cath present
Plan:
# DKA
-admit to ICU
-AG @ 17 on presentation
-Pseudohyponatremia
- anion gap has chronically been 16-17.
- Discontinue insulin pump (ran out of insulin)
- STAT IV insulin gtt adjust as needed for adequate control.
- Monitor chemistries - transition to insulin pump once glucose control is improved.
- Would wait on 'normalization' of anion gap
- DM education. Again encourage compliance with routine care.
- IVFs support and adjust as needed based on labs / lytes.
- Would be cautious with any needed potassium replacement given ESRD status.
# ESRD
- on TTS schedule with h/o noncompliance
- HD today
- AV fistula non functioning
- use IJ TC
# Hyperkalemia-
- will resolve with insulin and HD
- monitor closely
# HTN
- cont amlodipine and coreg
- monitor closely
# HFpEF
- unclear why on lasix as patient is anuric
- DC lasix
- cont HD
# H/O ETOH Abuse/SUSIE
- check tox screen
- etoh neg on admission
- place on MSAS
#Chronic Abdominal Pain
#Chronic Medical Non-Compliance
- Patient with history of serial hospitalizations, ED visits, etc with specific requests for narcotic pain control.
- This is very well documented at multiple institutions.
- weigh pros and cons of narcotic administration vs staying for life saving treatments avoiding leaving AMA and likely
- Improved control of DM, HD needs, etc.
# Anxiety / Depression
- Continue current oxcarbazepine / trazodone for now.
# Anemia of Chronic Disease
- Stable. Hgb appears at or near known baseline.
- No reported bleeding, etc.
- Follow CBC daily
DVT Prophylaxis: Subcut Heparin
Code Status: Full
Due to a high probability of clinically significant, life-threatening deterioration, the patient required a high level of preparedness to intervene emergently. I personally spent this critical care time directly and personally managing the patient.
This critical care time included obtaining a history; examining the patient; ordering and review of studies and STAT labs; arranging urgent treatment with development of a management plan; evaluation of patient's response to treatment; reassessment;
and, discussions with other providers.
This critical care time was performed to assess and manage the high probability of imminent, life-threatening deterioration that could result in multi-organ failure. It was exclusive of separately billable procedures and treating other patients and
teaching time.
Total critical care time: Approximately 41 minutes
Original Note:
Family Physician
-
Family Physician: Casper Arroyo
Chief Complaint
-
Abdominal Pain, Nausea, Vomiting
History of Present Illness
Patient is a 34 yo Male with a Paste medical history of poorly controlled Insulin dependent type I-DM, ESRD on dialysis (), HFpEF (60-65% January 2024), HTN, and polysubstance use disorder who presented to the ED with nausea, vomiting,
abdominal pain and chills for one day.
Patient states that he ran out of his insulin pump and for the past 24 hours has been experiencing nausea, vomiting, abdominal pain and pain in his chest. The nausea is constant and unchanging. He has vomited up clear fluid, without blood or bile.
The abdominal pain is present just beneath his ribs, bilaterally and is not associated with any diarrhea/constipation/bloody bowel movements. The chest pain is present along top of his chest and across his clavicle. It is constant and not associated
with exertion. He is not experiencing any lightheadedness or palpitations.
Allergies: Shellfish (hives)
Medications:
Amlodipine, Carvedilol, Furosemide, Oxcarbazepine, Trazodone, Metoclopramide, Home insulin pump
Surgical: Appendectomy (unspecified date)
Social: Endorses 4-5 'large glasses' of wine/beer 2x/month. He is a 7 pack year smoker and denies illicit drug use
Medical History
Past Medical History
Past Medical History: Reports CHF, HTN and IDDM
Additional Past Medical History:
See HPI
Past Surgical History: Reports Appendectomy
Additional Past Surgical History:
See HPI
Social History
Tobacco: Smoker
Alcohol: Other (4-5 drinks/2 weeks)
Family History
Family History: Not pertinent
Allergies / Home Medications
Allergies reflects when Allergies were last updated in [employer].
Home Medications with original date entered in [employer]
Allergy/Medication List:
None
Review of Systems
-
History Source: Patient
A 12 point ROS was completed and negative except as noted: Yes
Constitutional: Reports No Symptoms and Chills
EENT: Reports No Symptoms
Respiratory: Reports No Symptoms
Cardiac: Reports Chest Pain
Abdomen/GI: Reports Abdominal Pain, Nausea and Vomiting
: Reports No Symptoms
Musculoskeletal: Reports No Symptoms
Skin: Reports No Symptoms
Neurological: Reports No Symptoms
Endocrine: Reports No Symptoms
Hematologic/Lymphatic: Reports No Symptoms
Physical Exam
Vital Signs
Vital Signs
Temp Pulse Resp BP Pulse Ox
98.2 F 101 26 102/82 95
07/03/24 06:13 07/03/24 07:45 07/03/24 07:45 07/03/24 07:30 07/03/24 07:45
Physical Exam
General: Appears in Distress, Chills and Appears Chronically Ill
HEENT: NormoCephalic, Anicteric, Moist mucous membranes, Atraumatic, PERRLA and [place] Conjunctivae
Respiratory: Crackles (Right Lung)
Cardiac: S1/S2, Regular Rhythm, Tachycardia, Murmur (Systolic, Grade 2-3) and Other (R IJ Venous catheter placed by ED for pending dialysis)
Breast: N/A
GI: Soft, Non Distended, Normal Bowel Sounds and Tender
Genito-urinary: Deferred by me
Musculoskeletal: No Cyanosis and Other (LUE Fistula, palpable thrill. )
Skin: Warm and Dry
Neuro: Awake, Alert, Oriented, No Motor Deficits and No Sensory Deficits
Psych: Agitated and Anxious
Laboratory Results
-
07/03/24 06:00
07/03/24 07:37
Laboratory Results
Total Bilirubin 1.0 mg/dl (0.2-1.3) 07/03/24 07:37
AST 25 U/L (17-59) 07/03/24 07:37
ALT 12 U/L (0-50) 07/03/24 07:37
Alkaline Phosphatase 128 U/L (38-126) H 07/03/24 07:37
Impression/Plan
-
Assessment & Plan
##Diabetic Ketoacidosis, secondary to missed insulin dosing
#nausea/vomiting/abdominal pain, likely secondary to DKA
- Given Insulin bolus & started on an insulin drip, given IVF 1/2 NS 250ml/hr
- Q1H glucose checks, Q2 K checks, Insulin titrated per ICU nursing/protocol
- Glucose on admission 700, now 116
- Anion Gap on admission 16, now 12 s/p dialysis
- K on admission 6.6, 5.4, 5.4, 3.6
- Transition to D5 + 1/2 NS 150mls/hr
- Began on 15U Basal insulin, 5U AC and LDISS
#ESRD, on dialysis
#Hyperkalemia (resolved)
#Hyponatremia
- Left Upper extremity AVF, R IJ Venous Catheter placed today for dialysis
- Corrected Sodium on admission 143, now 138.
#Abdominal Pain, acute on chronic
#Upper chest pain, likely non-cardiac
- Given 0.25mg dilaudid Q8, will re-evaluate in the AM
#Left pleural Effusion
- Holding Lasix due to ESRD
- Fluid status should improve with Dialysis
#Small pericardial effusion
- Hemodynamically stable
- most likely related to volume status, should improve post Dialysis
#Anxiety
- Given 0.5mg Ativan
Dispo: ICU
Diet: Diabetic Diet
DVT PPx: Heparin SC
Code: Full Code
[2024-07-03 10:09] LABS: Glucose - Point of Care > 600 mg/dl (70-99)
[2024-07-03 10:28] LABS: Venous Blood Gas B.E. -4.4 mmol/L (-4 to +4); Venous Blood Gas HCO3 21.7 mmol/L (22-27); Venous Blood Gas O2 Sat % 97.1 %; Venous Blood Gas pCO2 43 mmHg (35-48); Venous Blood Gas pH 7.31 (7.32-7.43); Venous Blood Gas pO2 83 mmHg (30-50)
[2024-07-03 10:48] LABS: Blood Urea Nitrogen 51 mg/dl (9-20); Calcium 7.9 mg/dl (8.4-10.2); Carbon Dioxide 18 mmol/L (22-30); Chloride 103 mmol/L (98-107); Estimated Creatinine Clearance 18 ml/min; Glucose 563 mg/dl (70-99); Potassium 5.4 mmol/L (3.5-5.1); Sodium 135 mmol/L (135-145); eGFR 13.18
[2024-07-03 11:06] LABS: Glucose - Point of Care 589 mg/dl (70-99)
[2024-07-03 11:20] LABS: Venous Blood Gas O2 Therapy 95
[2024-07-03 12:00] LABS: Glucose 527 mg/dl (70-99)
[2024-07-03 12:08] LABS: Glucose - Point of Care 529 mg/dl (70-99)
[2024-07-03] MEDS: HEPARIN 500 UNITS IV ×2 (13:25→14:25)
--- NOTE | 2024-07-03 13:33 | CON.INTV ---
Consultation
Consultation Request
Date/Time Consultation Requested: 07/03/2024
Date/Time Consultation Performed: 07/03/2024
Requesting Provider: Dr. Holloway
Performing Provider: Dr. Laurent Liu
Reason for Consultation: Diabetes ketoacidosis/ hyperkalemia
Medical History
-
History of Present Illness:
34-year-old man with multiple comorbidities noted. Well-known to [facility]. Recently discharged from the hospital on 06/11/2024 with alcohol intoxication, diabetes ketoacidosis.
Patient left the hospital AGAINST MEDICAL ADVICE.
It is noted that he has drug-seeking behavior and prior hospital stays.
-
Readmitted today 07/03/2024 complaining of nausea, vomiting abdominal pain and shortness of breath
Past Medical History
Past Medical History: Other (See assessment and plan)
Social History
Tobacco: Smoker
Alcohol: Binge Drinker
Drug: None
Personal: Single
Living: With Family
Employment: Disabled
Family History
Family History: Reviewed & Not Pertinent
Allergies / Home Medications
Allergies
Allergy/AdvReac Type Severity Reaction Status Date / Time
shellfish derived Allergy Hives Verified 07/03/24 05:20
Home Medications
�Medication �Instructions �Recorded �Confirmed �Last Taken �Type
amlodipine 10 mg tablet 10 mg PO DAILY Blood pressure 04/22/21 07/03/24 2 Days Ago History
~07/01/24
metoclopramide HCl 10 mg tablet 10 mg PO TIDPRN PRN nausea 04/07/23 07/03/24 04/25/24 History
(Reglan)
oxcarbazepine 150 mg tablet 150 mg PO HS Neurological Condition 07/24/23 07/03/24 2 Days Ago History
~07/01/24
trazodone 50 mg tablet 25 mg PO HS Sleep 01/05/24 07/03/24 2 Days Ago History
~07/01/24
Patient Own Insulin Pump 0 units SC .VIA PUMP diabetes 02/13/24 07/03/24 04/26/24 History
carvedilol 25 mg tablet 25 mg PO BID Blood Pressure 04/12/24 07/03/24 2 Days Ago History
~07/01/24
furosemide 40 mg tablet 40 mg PO BID@0800,1600 Fluid 04/12/24 07/03/24 2 Days Ago History
Retention/Swelling ~07/01/24
Review of Systems
-
History Source: Patient
All other systems: Negative unless noted
Vitals / Labs / Diagnostic Testing
Vital Signs
Temp Pulse Resp BP Pulse Ox
98.1 F 100 19 175/120 95
07/03/24 13:28 07/03/24 11:00 07/03/24 09:45 07/03/24 11:45 07/03/24 12:13
Lab Data
07/03/24 06:00
Diagnostic Testing:
Physical Exam
-
HEENT: Normocephalic
Cardiovascular: S1/S2
Respiratory: Non-Labored Respirations
GI: Soft, Non Distended, Tender and Other (No peritoneal sign)
Neurology: Awake, Alert and No Motor Deficits
Skin: Warm
General: Comfortable
Assessment
-
Diabetes ketoacidosis-likely triggered by poor compliance.
Shortness of breath-multifactorial including volume overload/anemia/abdominal pain/acidosis.
Likely related to volume overload/recurrent right pleural effusion.
Chronic pleural effusion on the right present since at least April 2023: Thoracentesis 04/13/2024: 9 4% mononuclear/fluid glucose 249/total protein 2.9/LDH 140/negative ambulation triglyceride/Negative cytology
Hyperkalemia
Chronic anemia
Chronic kidney disease
-
Condition present on admission:
Type 1 diabetes mellitus with recurrent DKA's
Substance seeking behavior
anemia of chronic disease
Hypertension
ESRD on HD dialysis Friday
History of PEA/asystole 03/13/2024
Left upper AV fistula
Polysubstance abuse
Chronic anemia
Right pleural effusion s/p thoracentesis 02/2024
History of pericardial effusion requiring pericardial drain in the past
Anxiety/depression
Chronic abdominal pain.
Echocardiogram 04/02/2024:
Normal left ventricular size and systolic function without regional wall motion
abnormality.
Dilated hypocontractile right ventricle.
Mild tricuspid regurgitation.
Estimated right ventricular systolic pressure of 46mmHg.
Small pericardial effusion (0.8cm) predominantly posteriorly and no hemodynamic
significance.
Assessment and plan:
- Continue with insulin infusion
-IV fluid recommended but patient refusing.
- Serial labs with q4hr BMP, Mg and PO4
- q1hr fingersticks
- Avoid hypoglycemia with goal BG>140 and <180
-Continue DKA protocol
-Eventual transition to patient's home insulin pump
-Diabetes nurse practitioner consultation
- HD as per nephrology
- Potassium should improve after dialysis.
- prn pain meds, avoid Dilaudid if possible-defer pain management to primary team
- Monitor Hb and transfuse if needed to keep Hb>7g/dL, plt>20k
-If remains shortness of breath repeat chest x-ray, last thoracentesis was 04/2024. Suspected of volume overload. Likely noncompliant with low-sodium diet and fluid restriction per
- Maintain SpO2 >90-94%
- prn nebulized bronchodilators
- Maintain MAP>65
- Replete electrolytes with K>4, Mg>2
- Incentive spirometer encouraged
- DVT ppx: HSQ
Overall long-term prognosis poor as the patient has poor compliance, poor insight on his underlying disease. Recurrent admissions with DKA resistant to medical care when he comes to the hospital
Critical care statement: A total of 40 minutes of critical care time was provided for this patient today. This includes management of unstable vital signs, evaluation of the patient at bedside, reviewing the patient's pertinent medical records
including radiographs, microbiology, laboratory evaluations, and discussion with primary team, consultants, pharmacy, nutrition, physical therapy, case management, charge nurse, critical care nursing, and respiratory therapy.
[2024-07-03 13:36] LABS: Glucose - Point of Care 389 mg/dl (70-99)
[2024-07-03 13:38] LABS: Blood Urea Nitrogen 57 mg/dl (9-20); Calcium 9.3 mg/dl (8.4-10.2); Carbon Dioxide 21 mmol/L (22-30); Chloride 99 mmol/L (98-107); Estimated Creatinine Clearance 15 ml/min; Glucose 416 mg/dl (70-99); Potassium 5.4 mmol/L (3.5-5.1); Sodium 136 mmol/L (135-145); eGFR 10.78
--- NOTE | 2024-07-03 14:03 | W.PN.NEPH.HD ---
Assessment
-
Seen on HD. no new complaints. VSS, access ok
no additional IVF d/t HD
Progress Note - Hemodialysis
-
Date of Service: July 03, 2024
Duration: 45 minutes and 3 hours
Potassium Bath: 2
Calcium Bath: 2.5
Opti-Dialyzer: 160
Ultrafiltration: Other (4kg)
Blood Flow: 400
Dialysate Flow: 600
Heparin: 500x2
EPO: 10049 units
[2024-07-03] MEDS: DILAUDID 0.25 MG IV ×2 (14:33→22:37)
[2024-07-03 14:44] LABS: Glucose - Point of Care 210 mg/dl (70-99)
[2024-07-03] MEDS: RETACRIT 10000 UNITS IV (14:50)
--- NOTE | 2024-07-03 15:22 | PTCARENOTE ---
Received pt from ED for DKA. Pt on insulin gtt. Immediate c/o ABD pain 07/13. Requesting dilaudid and reglan. Attempted to do a head to toe assessment but pt angry with removing covers. CHG wipe bath attempted. Insulin pump attached but pt states
empty of med. Assessment as noted on worklist. HTN noted 170s/100s. Sinus rhythm. trace edema BLE. On 2L NC, SpO2 97%. Pt states chronic constipation and anuric. Difficult to assess skin with pt refusing to remove shorts or blankets but diffuse
scabs and abrasions at various stages of healing noted on Bilat arms and legs. R zhang appears to have formed more substantial scab since last departure AMA. Abrasion on R forearm appears to have small amount of blood oozing from probable removal of
scab. RUE Midline in place. Pt refusing IVF. LUE fistula reportedly not functioning as per CONY Licona RN. HD being performed via R chest wall HD cath. Dr. Rose, Dr. Salmon to bedside and aware of pt refusals and demands.
[2024-07-03 15:43] LABS: Glucose - Point of Care 140 mg/dl (70-99)
[2024-07-03 16:16] LABS: APTT 39.8 Sec (23.4-35.0)
[2024-07-03 16:30] LABS: Blood Urea Nitrogen 24 mg/dl (9-20); Calcium 9.1 mg/dl (8.4-10.2); Carbon Dioxide 28 mmol/L (22-30); Chloride 98 mmol/L (98-107); Estimated Creatinine Clearance 35 ml/min; Glucose 116 mg/dl (70-99); Potassium 3.6 mmol/L (3.5-5.1); Sodium 138 mmol/L (135-145); eGFR 29.62
[2024-07-03 16:47] LABS: Glucose - Point of Care 96 mg/dl (70-99)
[2024-07-03] MEDS: HEPARIN 4300 UNITS INTRACATH (17:21)
[2024-07-03 17:45] LABS: Glucose - Point of Care 102 mg/dl (70-99)
--- NOTE | 2024-07-03 18:05 | PTCARENOTE ---
HD complete, 4kg removed. HTN continues, hospitalist notified. Unable to access first dose meds to administer early. Pt refusing heparin SC. Requesting ativan and protonix. Dr. Salmon notified. HD dressing found to have brown/cuellar exudate. Dr Lindsey
notified and blood cultures drawn from midline as authorized.
[2024-07-03] MEDS: ATIVAN 0.5 MG PO (18:17)
[2024-07-03] MEDS: NSS (PRESERVATIVE FREE) 10 ML IV (18:22)
[2024-07-03] MEDS: PROTONIX IV 40 MG IV (18:22)
[2024-07-03 18:40] LABS: Glucose - Point of Care 109 mg/dl (70-99)
[2024-07-03 19:37] LABS: Glucose - Point of Care 159 mg/dl (70-99)
[2024-07-03 20:39] LABS: Glucose - Point of Care 153 mg/dl (70-99)
[2024-07-03 20:41] LABS: Blood Urea Nitrogen 24 mg/dl (9-20); Calcium 8.8 mg/dl (8.4-10.2); Carbon Dioxide 25 mmol/L (22-30); Chloride 99 mmol/L (98-107); Estimated Creatinine Clearance 30 ml/min; Glucose 160 mg/dl (70-99); Potassium 3.7 mmol/L (3.5-5.1); Sodium 137 mmol/L (135-145); eGFR 24.32
[2024-07-03] MEDS: COREG PO (20:42)
[2024-07-03] MEDS: TRANDATE 10 MG IV (20:50)
--- NOTE | 2024-07-03 21:10 | PTCARENOTE ---
Received pt resting in bed, AAOx3 but flat affect. SR on tele, HR 80-100s. Hypertensive. Coreg scheduled- pt refused. VETERINARIAN HELPER notified. IV labetalol ordered and administered. Trace LE edema. Multiple scattered wounds to UE and LEs. Pt. refusing to have
them covered with dressings or cleaned. On 2L NC, Spo2 97%. R lung 1/4 way up with crackles. + bowel sounds. C/O nausea. Wants to wait til next dose of zofran is due. R midline with insulin gtt as ordered. Q1hr BG checks ongoing. R Hand #22
occluded- removed. Repeat labs sent. Monitoring
[2024-07-03] MEDS: DESYREL 25 MG PO (21:59)
[2024-07-03] MEDS: LANTUS 0.15 UNITS SC (21:59)
[2024-07-03 22:07] LABS: Glucose - Point of Care 107 mg/dl (70-99)
[2024-07-03] MEDS: DILAUDID IV (22:34)
[2024-07-03 22:50] LABS: Glucose - Point of Care 92 mg/dl (70-99)
[2024-07-03 23:40] LABS: Glucose - Point of Care 88 mg/dl (70-99)
[2024-07-04] VITALS (13 sets, daily range): BP systolic 142–171; BP diastolic 68–89; BMI 22.1
[2024-07-04] MEDS: ZOFRAN 4 MG IV ×3 (00:04→10:14)
--- NOTE | 2024-07-04 00:45 | PTCARENOTE ---
Lantus given as ordered at 2200. Insulin gtt turned off at 0000 per orders. Dilaudid and zofran given PRN. Pt. resting without complaints
[2024-07-04] MEDS: REGLAN 10 MG IV (01:11)
[2024-07-04 01:27] LABS: Glucose - Point of Care 109 mg/dl (70-99)
[2024-07-04 04:31] LABS: % Basophils 0.7 % (0-2); % Eosinophils 2.2 % (0-6); % Immature Granulocytes 0.4 % (0-0.5); % Lymphocytes 9.6 % (20.5-51.1); % Monocytes 8.1 % (1.7-9.3); Absolute Basophils 0.1 10^3/uL (0-0.2); Absolute Eosinophils 0.2 10^3/uL (0-0.7); Absolute Lymphocytes 0.9 10^3/uL (1.2-3.4); Absolute Monocytes 0.8 10^3/uL (0.1-0.6); Absolute Neutrophils 7.7 10^3/uL (1.4-6.5); Hematocrit 28.2 % (39.0-52.0); Hemoglobin 9.4 g/dL (13.0-18.0); Mean Corp Hgb Conc. 33.3 g/dL (33.0-37.0); Mean Corpuscular Hgb 29.9 pg (27.0-31.0); Mean Corpuscular Volume 89.8 fL (80.0-94.0); Mean Platelet Volume 9.1 fL (7.4-10.4); Nucleated Red Blood Cells % 0 % (-); Platelet Count 258 10^3/uL (130-400); Red Blood Cell Count 3.14 10^6/uL (4.70-6.10); Red Cell Dist. Width 16.4 % (11.5-14.5); White Blood Cell Count 9.8 10^3/uL (4.8-10.8)
--- NOTE | 2024-07-04 04:54 | PTCARENOTE ---
Nauseous overnight at times, requiring extra dose of zofran this morning. RESEARCH GEOLOGIST aware. Pt. sleeping when not disturbed.
[2024-07-04 05:05] LABS: Blood Urea Nitrogen 27 mg/dl (9-20); Calcium 8.8 mg/dl (8.4-10.2); Carbon Dioxide 24 mmol/L (22-30); Chloride 100 mmol/L (98-107); Estimated Creatinine Clearance 26 ml/min; Glucose 141 mg/dl (70-99); Magnesium 1.9 mg/dl (1.6-2.3); Potassium 4.7 mmol/L (3.5-5.1); Sodium 137 mmol/L (135-145); eGFR 20.54
[2024-07-04] MEDS: DILAUDID 0.25 MG IV (06:35)
[2024-07-04 07:41] LABS: Glucose - Point of Care 167 mg/dl (70-99)
--- NOTE | 2024-07-04 07:55 | W.PN.NEPH.PH ---
Today's Communication / Plan
-
Dialysis tomorrow
Assessment/Plan
-
Impression:
ESRD (MWF) last full HD last friday04/21/2024
Status post PEA/Asystole 03/13/24
PAF : briefly after code on 03/13/24
Chronic noncompliance with dialysis
ESRD MWF ([facility]),
left UE AVF
DKA
Hyperkalemia
Hyponatremia
Chronic Abdominal Pain / Gastroparesis
Pulmonary hypertension
Polysubstance abuse
Anxiety
History of biliary drain
Anemia
Right pleural effusion--s/p R thoracentesis for pleural effusion with 1.8L transudate 02/17/24
History of pericardial effusion requiring pericardial drain
Plan:
will schedule dialysis for tomorrow
Optimize weight
Glucose management per primary team
Psychiatry evaluation though patient denies suicidal ideation
Avoid narcotics
If shortness of breath persist, thoracentesis may be considered again.
-
-
Date of Service: July 04, 2024
CC / HPI / ROS
-
Chief Complaint:
ESRD
History of Present Illness:
ESRD Friday
Hemodynamically stable
Glucose correcting
Review of Systems:
No fevers
No chest pain or shortness of
Labs
-
Labs:
WBC 9.8 10^3/uL (4.8-10.8) 07/04/24 03:51
RBC 3.14 10^6/uL (4.70-6.10) L 07/04/24 03:51
Hgb 9.4 g/dL (13.0-18.0) L 07/04/24 03:51
Hct 28.2 % (39.0-52.0) L 07/04/24 03:51
Plt Count 258 10^3/uL (130-400) 07/04/24 03:51
Sodium Cancelled 07/04/24 04:00
Potassium Cancelled 07/04/24 04:00
Chloride Cancelled 07/04/24 04:00
Carbon Dioxide Cancelled 07/04/24 04:00
BUN Cancelled 07/04/24 04:00
Creatinine Cancelled 07/04/24 04:00
eGFR Cancelled 07/04/24 04:00
Glucose Cancelled 07/04/24 04:00
Calcium Cancelled 07/04/24 04:00
Gkj-X-Qqsdgbvzslk Pept > 17853 pg/ml 07/03/24 06:44
Albumin 3.5 g/dl (3.5-5.0) 07/03/24 07:37
Physical Exam
-
Vital Signs:
Vital Signs
Temp Pulse Resp BP Pulse Ox
98.6 F 100 18 148/82 92
07/04/24 04:00 07/04/24 05:00 07/04/24 05:00 07/04/24 05:00 07/04/24 05:00
Cardiovascular:: Regular rate and rhythm
Respiratory:: Bilateral: Coarse
Lung Excursion:: Normal
Abdomen:: Nontender and Soft
Bowel Sounds:: Normal
Extremity Edema:: +2: Bilateral:
Other Findings::
Tunneled right IJ catheter
--- NOTE | 2024-07-04 08:37 | W.PN.HOSP.TC ---
Addendum entered and electronically signed by Marcos Wallace MD 07/04/24 22:54:
Attending Addendum-
I saw and evaluated the patient. I reviewed the resident�s note and agree with findings and plan as documented in the resident�s note. S: Patient states he feels better but requesting more pain meds. 'you guys arent doing anything for me i wanna go
home!' Exam- vitals reviewed in EMR GEN-appears comfortable heart RRR abd soft no rebound or guarding ext trace edema LUE fistula present Right IJ tuned cath present
Plan:
# DKA
- resolved
- AG closing 13
-Pseudohyponatremia
- anion gap has chronically been 16-17.
- DC insulin gtt, started on BB and mealtime insulin regimin
- DM education. Again encourage compliance with routine care.
- patient refusing to stay in hospital
- DC home encourage compliance offered supports as OP
- scripts written for insulin to avoid patient leaving AMA
# ESRD
- on TTS schedule with h/o noncompliance
- HD 07/03
- AV fistula non functioning
- use IJ TC
# Hyperkalemia-
- resolved
- monitor closely
# HTN
- cont amlodipine and coreg
- monitor closely
# HFpEF
- unclear why on lasix as patient is anuric
- DC lasix
- cont HD
# H/O ETOH Abuse/SUSIE
- check tox screen
- etoh neg on admission
- cont MSAS
#Chronic Abdominal Pain
#Chronic Medical Non-Compliance
- Patient with history of serial hospitalizations, ED visits, etc with specific requests for narcotic pain control.
- This is very well documented at multiple institutions.
- weigh pros and cons of narcotic administration vs staying for life saving treatments avoiding leaving AMA and likely
- Improved control of DM, HD needs, etc.
# Anxiety / Depression
- Continue current oxcarbazepine / trazodone for now.
# Anemia of Chronic Disease
- Stable. Hgb appears at or near known baseline.
- No reported bleeding, etc.
- Follow CBC daily
DVT Prophylaxis: Subcut Heparin
Code Status: Full
Dispo DC home scripts sent to pharmacy - patient left prior to order being placed
Time spent coordinating care, DC planning, review of DC plan of care with resident, transition of care, review of records, med rec/scripts sent electronically, consults, notes, d/w consultants, nursing, family, and CM� 37 mins
Original Note:
Today's Communication/Plan
-
Patient would like to leave. A lengthy discussion was had about follow up with a primary care, the importance of his insulin and his plan for the future. Patient left the hospital before discharge orders could be completed and further information
could be given to him. His Medication was sent to the pharmacy in the system.
Assessment / Plan
Assessment / Plan
Assessment & Plan
##Diabetic Ketoacidosis, secondary to missed insulin dosing (resolved)
#nausea/vomiting/abdominal pain, likely secondary to DKA
- Given Insulin bolus & started on an insulin drip, given IVF 1/2 NS 250ml/hr
- Q1H glucose checks, Q2 K checks, Insulin titrated per ICU nursing/protocol
- Glucose on admission 700, now 116
- Anion Gap on admission 16, now 13.
- K on admission 6.6, 5.4, 5.4, 3.6
- Glucose in the AM 141 on 15U Basal insulin, 5U AC and LDISS.
#ESRD, on dialysis (T//Sat at [facility])
#Hyperkalemia (resolved)
#Hyponatremia (resolved)
- Left Upper extremity AVF, R IJ Venous Catheter placed today for dialysis
- Corrected Sodium on admission 143, now 138.
- Scheduled for dialysis tomorrow
#Abdominal Pain, acute on chronic?
- Opioid pain medication not indicated for abdominal pain w/o clear cause considering DKA has resolved and there are no other physical signs or laboratory data to support
#Left pleural Effusion
- Holding Lasix due to ESRD
- Fluid status improved with Dialysis
#Small pericardial effusion
- Hemodynamically stable
- most likely related to volume status, should improve post Dialysis
#HTN
- Patient refusing PO anti-hypertensive medication
#Anemia of Chronic Disease, secondary to ESRD
- Hgb stable at 9.4
- No active bleeding
- Stable. Transfuse if platelets <7.5
#Anxiety
- Given 0.5mg Ativan, which improved symptoms
- Today patient is not complaining of Anxiety symptoms
Dispo: ICU
Diet: Diabetic Diet
DVT PPx: Heparin SC
Code: Full Code
Anticipated Discharge: Today
Subjective/Interval History
-
Overnight patient refused PO medications, except for Ativan, and became Hypertensive, ultimately requiring Labetalol. He received Zofran IV for nausea, which he still reported in the AM along with abdominal pain. He was taken off the insulin drip
yesterday and is maintained today on lantus 15U SC and 5U AC of novolog. He is complaining of abdominal pain and shortness of breath as well, only slightly improved since admission. He denies any bloody bowel movements, vomiting, palpitations,
dizziness, or chest pain.
Objective Data
-
Labs:
Laboratory Results
07/03/24 07/04/24 07/04/24
20:10 00:00 03:51
WBC 9.8
Hgb 9.4 L
Hct 28.2 L
Plt Count 258
Sodium 137 Cancelled 137
Potassium 3.7 Cancelled 4.7 D
Chloride 99 Cancelled 100
Carbon Dioxide 25 Cancelled 24
BUN 24 H Cancelled 27 H
Creatinine 3.3 H Cancelled 3.8 H
Glucose 160 H Cancelled 141 H
Calcium 8.8 Cancelled 8.8
07/04/24
04:00
WBC
Hgb
Hct
Plt Count
Sodium Cancelled
Potassium Cancelled
Chloride Cancelled
Carbon Dioxide Cancelled
BUN Cancelled
Creatinine Cancelled
Glucose Cancelled
Calcium Cancelled
Vital Signs:
Vital Signs
Temp Pulse Resp BP Pulse Ox
99.2 F 100 18 148/82 92
07/04/24 08:02 07/04/24 05:00 07/04/24 05:00 07/04/24 05:00 07/04/24 05:00
I&O
07/03/24 07/04/24 07/05/24
06:59 06:59 06:59
Intake Total 15.0 / 15.0
Balance 15.0 / 15.0
Review of Systems
-
History Source: Patient
All other systems: Reviewed and negative
Constitutional: Reports No Symptoms
EENT: Reports No Symptoms Reported
Respiratory: Reports Trouble Breathing
Cardiac: Reports No Symptoms
Abdomen/GI: Reports Abdominal Pain and Nausea
Breast: Reports N/A
Genitourinary: Reports No Symptoms
Musculoskeletal: Reports No Symptoms
Skin: Reports No Symptoms
Neuro: Reports No Symptoms
Endocrine: Reports No Symptoms
Psych: Reports Anxious
Physical Exam
-
General: Appears Chronically Ill
HEENT: Normocephalic, Atraumatic, Moist Mucous Membranes, Anicteric, [place] Conjunctivae, PERRLA and Good Dentition (Poor dentition)
Respiratory: Crackles and Decreased Breath Sounds
Cardiac: Regular Rhythm and S1/S2
Breast: N/A
GI: Soft, Nontender, Nondistended and Normal Bowel Sounds
Genito-urinary: No Costovertebral Tender
Musculoskeletal: No Clubbing, No Cyanosis and No Edema
Skin: Warm, Ulcers (ulcers in various stages of healing on the extremeties) and IV Access / Catheter Site (Right IJ Venous Catheter placed; port site clean, non-erythematous, w/o drainage, swelling, tenderness. )
Neuro: Awake, Alert and Oriented
Psych: Agitated and Anxious
[2024-07-04] MEDS: NOVOLOG FLEXPEN-LOW RESISTANCE 1 UNITS SC (08:50)
--- NOTE | 2024-07-04 09:00 | PTCARENOTE ---
Sleeping soundly but easily awakened. VSS. No signs of distress. allowed accucheck and insulin delivery. Wants to sleep at this time so delaying assessment and AM meds until ready for interaction due to his history os refusing care and leaving AMA.
[2024-07-04] MEDS: NOVOLOG FLEXPEN 5 UNITS SC (09:01)
[2024-07-04] MEDS: NSS (PRESERVATIVE FREE) 10 ML IV (10:15)
[2024-07-04] MEDS: PROTONIX IV 40 MG IV (10:16)
[2024-07-04] MEDS: COREG 25 MG PO (10:18)
[2024-07-04] MEDS: ATIVAN 0.5 MG PO (10:18)
[2024-07-04] MEDS: NORVASC 10 MG PO (10:19)
[2024-07-04] MEDS: ATIVAN PO (10:24)
--- NOTE | 2024-07-04 11:11 | W.PN.INTV ---
Today's Communication / Plan
Recommendations
Dialysis as needed
Restart outpatient medication
Patient to restart insulin pump
Low carbohydrate diet
Discharge planning
Transferred to [facility] if not discharged from the hospital today.
Assessment
-
Diabetes ketoacidosis-likely triggered by poor compliance.
Shortness of breath-multifactorial including volume overload/anemia/abdominal pain/acidosis.
Likely related to volume overload/recurrent right pleural effusion.
Chronic pleural effusion on the right present since at least April 2023: Thoracentesis 04/13/2024: 9 4% mononuclear/fluid glucose 249/total protein 2.9/LDH 140/negative ambulation triglyceride/Negative cytology
Hyperkalemia
Chronic anemia
Chronic kidney disease
-
Condition present on admission:
Type 1 diabetes mellitus with recurrent DKA's
Substance seeking behavior
anemia of chronic disease
Hypertension
ESRD on HD dialysis Friday
History of PEA/asystole 03/13/2024
Left upper AV fistula
Polysubstance abuse
Chronic anemia
Right pleural effusion s/p thoracentesis 02/2024
History of pericardial effusion requiring pericardial drain in the past
Anxiety/depression
Chronic abdominal pain.
Echocardiogram 04/02/2024:
Normal left ventricular size and systolic function without regional wall motion
abnormality.
Dilated hypocontractile right ventricle.
Mild tricuspid regurgitation.
Estimated right ventricular systolic pressure of 46mmHg.
Small pericardial effusion (0.8cm) predominantly posteriorly and no hemodynamic
significance.
Assessment and plan:
Clinically improved
Anion gap has closed
Off insulin drip
Patient usually has an insulin pump that he will place when he gets home.
Blood sugars improved
-
Not requiring supplemental oxygen
Denies shortness of breath at rest
Has a chronic right pleural effusion, likely due to dietary indiscretions and poor follow-up will need thoracentesis at some point again. Not indicated at this point. Continue with fluid restriction, low-sodium diet and dialysis.
No significant metabolic acidosis
Nephrology following, dialysis as necessary.
Chronic anemia contributing to shortness of breath. Likely to underlying chronic kidney disease
-
Increase activity as tolerated
Incentive spirometer encouraged
- DVT ppx: HSQ
Overall long-term prognosis poor as the patient has poor compliance, poor insight on his underlying disease. Recurrent admissions with DKA resistant to medical care when he comes to the hospital
No additional recommendation from the critical care perspective.
Discharge planning per primary team. If not discharge transferred to telemetry.
Critical care team will sign off.
Subjective Dataa
Subjective Data
Date of Service:
Date of Service: July 04, 2024
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
Subjective:
Patient would like to go home
Denies shortness of breath at rest
Denies nausea or vomiting
Denies abdominal
Review of Systems
General: Fever (n)
Cardiopulmonary: Dyspnea (none at rest)
GI: Abdominal Pain (n) and Nausea (n)
Objective Data
Data Reviewed
Vital Signs / I&O / Oxygen:
Vital Signs
Temp Pulse Resp BP Pulse Ox
99.2 F 100 18 148/82 94
07/04/24 08:02 07/04/24 05:00 07/04/24 05:00 07/04/24 05:00 07/04/24 08:00
Intake and Output
07/03/24 07/04/24 07/05/24
06:59 06:59 06:59
Intake Total 15.0 / 15.0
Balance 15.0 / 15.0
SaO2 94
Nasal Cannula flow liters per 2
minute
Physical Exam
General: Comfortable
HEENT: Normocephalic
Cardiovascular: S1-S2
Respiratory: Clear and Other (Decreased breath sounds on the right)
GI: Soft
Neurology: Awake, Alert, Oriented and No Motor Deficits
Labs/Micro/Reports
Lab Data
07/04/24 03:51
07/04/24 04:00
Laboratory Results
07/03/24
15:51
APTT 39.8 H
--- NOTE | 2024-07-04 12:11 | PTCARENOTE ---
Pt requesting more dilaudid even though he knows it is not due. Requesting to speak to the providers. Hospitalist team to bedside and decided to discharge pt. Midline removed by IV team. Pt ready to leave before discharge orders were in computer.
Notified doctors that pt ready to leave-doctors stated that working on discharge orders. Pt asked for AMA paperwork due to father waiting in parking lot. Pt to wheelchair and escorted to car. Notified by phone that the doctors would like
information on insulin pump. Pt refused insulin and HTN medication prescriptions.
--- NOTE | 2024-07-04 16:34 | W.DCSUMMARY ---
Addendum entered and electronically signed by Marcos Wallace MD 07/04/24 22:46:
Read, reviewed, and agree. See same day progress note for additional details.
Camilo Wallace MD
Original Note:
Documented by User: Denzel Salmon MD, Resident 07/04/24 17:28
Discharge Summary
Discharge Data
Date of Admission: 07/03/24
Date of Discharge: 07/04/24
-
Pending Results: No
Hospital Course
Discharging Physician : Dr. Denzel Salmon, Dr. Marcos Wallace
Disposition : Unknown
Primary care physician : Casper Arroyo
Principal Discharge diagnosis : Diabetic Ketoacidosis, Diabetes Mellitus Type I, End Stage Renal Disease, Hyperkalemia
Chronic Discharge diagnosis : Hypertension, Heart Failure with Preserved Ejection Fraction, History of Alcohol abuse and substance use disorder, Chronic Abdominal pain, chronic medical non-compliance, anxiety, depression, anemia of chronic disease
Hospital Course :
Patient presented to the [facility] Department in the AM on 07/03/2024 with symptoms of abdominal pain, shortness of breath, nausea and vomiting for the past 24 hours. The patient was found to be in DKA with a blood glucose of 700,
potassium of 6.6 and an anion gap of 16. Creatinine was also found to 6.2 at this time. He requires dialysis as an outpatient ( schedule, per patient), but presented with a non-functioning AV fistula in his left upper extremity. A venous
catheter was placed in his right internal jugular vein in preparation for in-patient dialysis in the AM. He was begun on an insulin drip, given IV Fluids and admitted to the ICU for further management of his DKA. Overnight he was experiencing
symptoms of anxiety, for which he requested Ativan, and abdominal pain, for which specifically requested IV narcotic pain medication. A lengthy discussion was subsequently had by the members of his care team, in conjunction with prior documentation
from previous hospital visits. A decision was made that the risk of allowing the patient to leave AMA (as he had been documented to do in the past) and not receive treatment for his DKA was ostensibly worse than denying him pain medication. He was
given a renally adjusted dose of IV dilaudid (dosing discussed and advised by Pharmacy team) and managed overnight by the ICU nursing staff for his DKA. A single dose of Ativan was given overnight, as the patient was tachycardic and hypertensive. Of
note, he was refusing oral anti-hypertensive medications and in lieu of his pre-existing cardiac dysfunction and his history of Alcohol use, it was determined that his hypertension was partially a consequence of alcohol withdrawal. Based on that
determination, he was given a one time dose of Ativan.
By the morning of hospital day 1, his blood sugar had improved to <200 and his potassium was within normal limits. He received 3.5 hours of hemodialysis and was re-evaluated in the afternoon. During that time, the patient was increasingly focused on
receiving IV pain medication; at this time he was hemodynamically stable, his DKA had resolved, his blood sugars were stable, and his electrolytes were within normal limits. A discussion was attempted at this time to encourage the patient to seek
close follow up care with his primary doctors so as to manage his very serious chronic conditions. We reiterated the importance of Insulin administration in the management of both his diabetes and the chronic complications that he already presents
with. He was not particularly receptive to this discussion; and, given his medical stability, as well as the resolution of his DKA, the decision was made to discharge the patient.
Before orders could be placed and the patient informed of a discharge plan, the patient left the hospital building. The patient's pharmacy was contacted, multiple records were checked, but information on the patient's insulin pump model number could
not be found. A prescription for Lantus and Novolog (which he had been receiving in the hospital) were sent to the pharmacy on file, along with refills of the patient's chronic medications in an attempt to encourage compliance.
Important imaging findings :
CR Chest Portable - 1 View:
1. MODERATE-SIZED RIGHT PLEURAL EFFUSION with adjacent severe airspace consolidation in the right lower lobe (probably compressive atelectasis).
2. Small left pleural effusion and adjacent mild subpleural airspace consolidation in the left lower lobe.
3. Mild to moderate enlargement of the cardiac silhouette suspicious for a persistent pericardial effusion.
4. Right IJ hemodialysis catheter in place
Discharge Plan
-
Patient Disposition: Home (Routine Discharge)
Discharge Diagnosis/Procedures: Diabetic ketoacidosis
ESRD
Hyperkalemia
HFpEF
Condition: Good
Diet: Diabetic, Carb Controlled
Activity: No restrictions
Driving Restrictions: As prior to admission
Blood Work: hemoglobin A1C in one week
Referrals:
Casper Arroyo MD [Family Provider] - in two to three days
Additional Discharge Medication Instructions: Lantus Solostar 15 units to be injected subcutaneously once a day before dinner.
Novolog 5 units to be injected subcutaneously three times a day, 15 minutes before each meal
Pen needles sent to the pharmacy via call
Prescriptions:
New
insulin glargine [Lantus Solostar U-100 Insulin] 100 unit/mL (3 mL) insulin pen
15 unit SC DAILY 30 Days Qty: 4.5 0RF
insulin aspart U-100 [Novolog FlexPen U-100 Insulin] 100 unit/mL (3 mL) insulin pen
5 unit SC TID 30 Days Qty: 4.5 0RF
Continued
amlodipine 10 MG tablet
10 mg PO DAILY
metoclopramide HCl [Reglan] 10 mg Tablet
10 mg PO TIDPRN PRN (Reason: nausea)
oxcarbazepine 150 mg tablet
150 mg PO HS
trazodone 50 mg Tablet
25 mg PO HS
furosemide 40 mg Tablet
40 mg PO BID@0800,1600
carvedilol 25 mg Tablet
25 mg PO BID
Patient Own Insulin Pump
0 units SC .VIA PUMP Qty: 0 0RF
Rx Instructions:
Novolog insulin
Discharge Orders:
Discharge Patient (As Directed); Ordered 07/04/24
Ordered By: Robe Solano
Discharge Date and Time
Discharge Date/Time: 07/04/24 12:22
Print Language: AFGHAN

Documented by User: Marcos Wallace MD 07/04/24 22:45
Discharge Summary
Discharge Data
Date of Admission: 07/03/24
Date of Discharge: 07/04/24
Discharge Plan
-
Patient Disposition: Home (Routine Discharge)
Discharge Diagnosis/Procedures: Diabetic ketoacidosis
ESRD
Hyperkalemia
HFpEF
Condition: Good
Diet: Diabetic, Carb Controlled
Activity: No restrictions
Driving Restrictions: As prior to admission
Blood Work: hemoglobin A1C in one week
Referrals:
Casper Arroyo MD [Family Provider] - in two to three days
Additional Discharge Medication Instructions: Lantus Solostar 15 units to be injected subcutaneously once a day before dinner.
Novolog 5 units to be injected subcutaneously three times a day, 15 minutes before each meal
Pen needles sent to the pharmacy via call
Prescriptions:
New
insulin glargine [Lantus Solostar U-100 Insulin] 100 unit/mL (3 mL) insulin pen
15 unit SC DAILY 30 Days Qty: 4.5 0RF
insulin aspart U-100 [Novolog FlexPen U-100 Insulin] 100 unit/mL (3 mL) insulin pen
5 unit SC TID 30 Days Qty: 4.5 0RF
Continued
amlodipine 10 MG tablet
10 mg PO DAILY
metoclopramide HCl [Reglan] 10 mg Tablet
10 mg PO TIDPRN PRN (Reason: nausea)
oxcarbazepine 150 mg tablet
150 mg PO HS
trazodone 50 mg Tablet
25 mg PO HS
furosemide 40 mg Tablet
40 mg PO BID@0800,1600
carvedilol 25 mg Tablet
25 mg PO BID
Patient Own Insulin Pump
0 units SC .VIA PUMP Qty: 0 0RF
Rx Instructions:
Novolog insulin
Discharge Orders:
Discharge Patient (As Directed); Ordered 07/04/24
Ordered By: Robe Solano
Discharge Date and Time
Discharge Date/Time: 07/04/24 12:22
Print Language: AFGHAN
== END 2024-07-04 12:22 | disposition home or self-care (01) | DRG 637 ==
LOC: ICU 09:42
PROVIDERS: Emergency Medicine; Nurse Practitioner Primary Care; ADMITTING PHYSICIAN Family Medicine; EMERGENCY PHYSICIAN Emergency Medicine; FAMILY PHYSICIAN Internal Medicine; OTHER PHYSICIAN Internal Medicine Critical Care Medicine; OTHER PHYSICIAN Specialist
PROC: 5A1D70Z Performance of Urinary Filtration, Intermittent, Less than 6 Hours Per Day (ICD-10-PCS; 2024-07-03)
DX: E10.10 Type 1 diabetes mellitus with ketoacidosis without coma (principal); N18.6 End stage renal disease; E87.1 Hypo-osmolality and hyponatremia; I50.32 Chronic diastolic (congestive) heart failure; I13.2 Hypertensive heart and chronic kidney disease with heart failure and with stage 5 chronic kidney disease, or end stage renal disease; J98.11 Atelectasis; T82.510A Breakdown (mechanical) of surgically created arteriovenous fistula, initial encounter; E10.22 Type 1 diabetes mellitus with diabetic chronic kidney disease; E87.5 Hyperkalemia; F17.200 Nicotine dependence, unspecified, uncomplicated; F32.A Depression, unspecified; F41.9 Anxiety disorder, unspecified; D63.8 Anemia in other chronic diseases classified elsewhere; Z91.199 Patient's noncompliance with other medical treatment and regimen due to unspecified reason; Z91.158 Patient's noncompliance with renal dialysis for other reason; E10.43 Type 1 diabetes mellitus with diabetic autonomic (poly)neuropathy; I48.0 Paroxysmal atrial fibrillation; K31.84 Gastroparesis; Y71.2 Prosthetic and other implants, materials and accessory cardiovascular devices associated with adverse incidents
CPT/HCPCS: 71045; 80048; 80053; 80307; 82010; 82077; 82248; 82800; 82805; 82947; 82962; 83735; 83880; 85025; 85730; 87040; 93005; 96374; 96375; 99291; P9047; Q5106

== ENCOUNTER 2024-08-17 20:45 | Inpatient (IN) | payer OTHER, SELFPAY ==
[2024-08-17] VITALS (7 sets, daily range): BP systolic 154–209; BP diastolic 85–119; BMI 21.7
--- NOTE | 2024-08-17 18:36 | ED.GENMED ---
ED Provider Triage
<Kimberly Kirkland PA-C - Last Filed: 08/17/24 18:39>
-
Patient seen by provider in Triage?: Seen in Triage
Attestation: A medical screening examination has been initiated by a qualified medical provider. Based on the assessment performed at this time, it has been determined that an emergent medical condition may exist and the patient has been informed
that further medical evaluation and possible additional diagnostic testing may be needed.
HPI: 34yoM here with hyperglycemia. Blood sugar 380s at home. Also having vomiting. Hx of T1DM and ESRD on hemodialysis.
GENERAL: Alert , in no apparent distress
EYE: No visual abnormalities.
NECK: Trachea midline
ENT: No visible abnormalities.
LUNGS: No acute respiratory distress
NEUROLOGICAL: Alert and oriented
SKIN: Skin intact. No visible changes.
MUSCULOSKELETAL: Moving extremities normally
PSYCH: Normal and appropriate interaction.
This is a medical evaluation conducted in person to initiate diagnostic evaluation and provide initial therapeutics. Please see further documentation by the treating clinician.
Patient actively vomiting during triage. CBC, CMP, magnesium, beta hydroxybutyrate, and VBG ordered.
History of Present Illness
<Kimberly Kirkland PA-C - Last Filed: 08/17/24 18:39>
General
Chief Complaint: Blood Sugar Problem
Time Seen by Provider: 08/17/24 18:55
<OSCAR Noe - Last Filed: 08/17/24 20:44>
General
Source: patient
Exam Limitations: none
Nursing documentation reviewed up to this point in time: agreed with
History of Present Illness
History of Present Illness:
Patient is a 34-year-old male with history of type 1 diabetes kidney failure with dialysis alcohol abuse, heart failure , PE presents to the ER complaining of nausea vomiting for the past 2 days abdominal pain. He previously was in [place] and
reports he last had dialysis in [place] on Friday.
He reports he was in [place] for alcohol rehab.
Patient is well-known to this ER here multiple times in the past patient does have a history of noncompliance with dialysis and medications. Patient denies any fever or chills.
Past History
<Kimberly Kirkland PA-C - Last Filed: 08/17/24 18:39>
Past History
ED Past Medical History: Arrthythmia, CHF, HTN, IDDM, Renal failure and Other
ED Past Surgical History: Appendectomy and Other (Left AV fistula, biliary drain removed)
Patient has exhibited threatening behavior?: No
PSI?: No
Social History
Tobacco: Smoker
Alcohol: None
Drug: None
Personal: Single
Living: with family
Employment: Disabled
Family History
Family History: Other
Review of Systems
<OSCAR Noe - Last Filed: 08/17/24 20:44>
Review of Systems
Allergies reviewed?: Yes
All Other Systems: ROS reviewed and negative except as documented in HPI and ROS
Constitutional: Reports no symptoms; Denies fever
EENT: Reports no symptoms
Respiratory: Reports no symptoms
ABD/GI: Reports abdominal pain, nausea and vomiting
: Reports no symptoms
Musculoskeletal: Reports no symptoms
Skin: Reports no symptoms
Neurological: Reports no symptoms
Psychiatric: Reports no symptoms
Phy Exam
<OSCAR Noe - Last Filed: 08/17/24 20:44>
General Physical Exam
General Presentation: no apparent distress
General age: appears stated age
General Skin: warm and dry
General Habitus: frail
General Mental: alert
General Hydration: dry mucous membranes
Cardiovascular Exam
Cardiovascular Exam: regular rate/rhythm, no murmur and normal peripheral pulses
Pulmonary Exam
Pulmonary Exam: lungs clear and no respiratory distress
Gastrointestinal Exam
Gastrointestinal Exam: soft and other (non specific tenderness )
Neurological Exam
Neurological Exam: alert and oriented x3
Musculoskeletal Exam
Musculoskeletal Exam: full ROM
Skin Exam
Skin Exam: normal color and warm/dry
Psychiatric Exam
Psychiatric Exam: normal mood/affect
Course
<Kimberly Kirkland PA-C - Last Filed: 08/17/24 18:39>
Orders/Labs/Results
Orders:
Orders
08/17/24 Dinner
NPO
Allow oral meds: Yes
Allow clear liquids: Sips of Clears
NPO with Ice Chips: Yes
08/17/24 18:38
Urinalysis Reflex To Culture Urgent
08/17/24 19:11
B-Hydroxybutyrate Urgent
Complete Blood Count/With Diff Urgent
Comprehensive Metabolic Panel Urgent
Lipase Urgent
Magnesium Urgent
Venous Blood Gas Urgent
%Oxygen/Room Air: room air
08/17/24 19:37
0.9% Sodium Chloride 1000 ml [Nss] 1,000 ml IV BOLUS
08/17/24 19:39
CR Chest - 2 Views Urgent
Comment:
Reason For Exam: soob
08/17/24 19:46
Ondansetron Injectable [Zofran] 4 mg IV NOW STA
08/17/24 19:50
Calcium Gluconate 1,000 mg IV NOW STA
Dextrose 50%-Water [Dextrose 50% Syringe] 12.5 grams IV [id number] PRN
Dextrose 50%-Water [Dextrose 50% Syringe] 25 grams IV NOW STA
Insulin Human Regular [Novolin R] 5 units IV NOW STA
Bedside Glucose PRE IV Insulin- HyperK+ NOW
08/17/24 19:58
Electrocardiogram (*1) Urgent
Reason for Study: Abdominal Pain
08/17/24 19:59
EKG- Treatment ONCE
08/17/24 20:15
Reg Insulin 100 Units/100 ml [Novolin R Insulin Infusion] 100 units in 100 ml IV ORDERED RATE
08/17/24 20:16
Buprenorphine [Subutex] 8 mg SL NOW STA
08/17/24 20:26
Admit/Transfer Patient As Directed
Co-Sign Provider:
Level of Care: Inpatient admission
Assign to:: ICU
Physician / Group: hospitalist
Diagnosis: DKA
Reason for Hospitalization: DKA
Expected length of stay greater than two midnights?: Yes
ELOS- Estimated Length of Stay in days: 2
I certify the patient meets the requirements for IP care: Yes
PRN Pain Medication Management As Directed
May give lesser potent ordered pain med per pt: Yes
preference::
Protocol:: Medication orders for pain may be administered in a
manner that supports deferring to patient preference
when the pt is:
- Requesting an ordered lesser potent pain medication.
Least to most potent pain medications are defined
as: acetaminophen < NSAID < tramadol < opioids
(morphine, oxycodone, hydromorphone).
- Requesting a lesser dose of the same medication IF
ORDERED.
- Requesting a less intrusive route of administration
if both routes are prescribed by the provider (PO <
IV).
08/17/24 20:27
Code Status As Directed
Resuscitation Status: Full Code
08/17/24 20:41
Glucose Stat
08/17/24 20:47
Metoclopramide [Reglan] 5 mg IV Q8HPRN PRN
08/17/24 21:20
Bedside Glucose POST IV Insulin- HyperK+ Q1HX2,Q2HX2
08/17/24 22:00
Topiramate [Topamax] 25 mg PO TID
08/17/24 22:20
Potassium Urgent
Comment: draw 2 hours after regular insulin IV administration
08/17/24 22:45
Reg Insulin 100 Units/100 ml [Novolin R Insulin Infusion] 100 units in 100 ml IV PER PROTOCOL
Currently infusing. Continue current dose and titrate:: Yes
08/17/24 22:45
Detention Attendant Consult Routine
Consulting Provider: Oniel Denton
Was physician already notified: Yes
Reason for consult: DKA
NEPHROLOGY CONSULT Routine
Consulting Provider: Kulwinder Vigil V.
Was physician already notified: Yes
VTE Contraindication Routine
VTE Mechanical Device Contraindication: Medical Contraindication
Pharmocologic Contraindication: Medical Contraindication
Activity As Directed
Activity Level: With Assistance
Bedside Glucose Monitoring As Directed
Frequency: Q1H
Intake/ Output As Directed
Frequency: Per unit guidelines
Notify MD As Directed
Notify physician if: Nurse to contact provider when glucose reaches 250 to obtain orders for D5 0.45 NaCl
Vital Signs As Directed
Frequency: Per unit guidelines
08/18/24 00:00
Basic Metabolic Panel Q4
08/18/24 04:00
Basic Metabolic Panel Q4
08/18/24 06:00
Sodium Zirconium Cyclosilicate [Lokelma] 10 gram PO TID@0600,1400,1800
08/18/24 08:00
Basic Metabolic Panel Q4
Apixaban [Eliquis] 5 mg PO BID
Buprenorphine [Subutex] 8 mg SL BID
Carvedilol [Coreg] 6.25 mg PO BID
Irbesartan [Avapro] 150 mg PO DAILY
Pantoprazole [Protonix] 40 mg PO BID
Renal Cap [Nephrocap] 1 capsule PO DAILY
Sertraline HCl [Zoloft] 50 mg PO DAILY
Sevelamer Carbonate [Renvela] 800 mg PO MEALS
Thiamine HCl [Vitamin B1] 100 mg PO DAILY
08/18/24 12:00
Basic Metabolic Panel Q4
08/18/24 16:00
Basic Metabolic Panel Q4
08/18/24 20:00
Basic Metabolic Panel Q4
Abnormal Lab Results
08/17/24 08/17/24 08/17/24
18:40 19:11 20:00
RBC 3.17 L 10^6/uL
(4.70-6.10)
Hgb 8.9 L g/dL
(13.0-18.0)
Hct 27.4 L %
(39.0-52.0)
MCHC 32.5 L g/dL
(33.0-37.0)
RDW 16.3 H %
(11.5-14.5)
Absolute Lymphs (auto) 0.7 L 10^3/uL
(1.2-3.4)
Neutrophils % 80.9 H %
(42.2-75.2)
Lymphocytes % 11.7 L %
(20.5-51.1)
VBG pH 7.23 L
(7.32-7.43)
VBG pCO2 29 L mmHg
(35-48)
VBG pO2 120 H mmHg
(30-50)
VBG HCO3 12.1 L mmol/L
(22-27)
Sodium 134 L mmol/L
(135-145)
Potassium 6.7 H* mmol/L
(3.5-5.1)
Chloride 95 L mmol/L
(98-107)
Carbon Dioxide 8 L* mmol/L
(22-30)
BUN 60 H mg/dl
(9-20)
Creatinine 6.6 H* mg/dL
(0.7-1.3)
Glucose 483 H* mg/dl
(70-99)
Alkaline Phosphatase 163 H U/L
(38-126)
Lipase 18 L U/L
(23-300)
B-Hydroxybutyrate 7.95 H mmol/L
(0.02-0.27)
POC Glucose 428 H mg/dl 429 H mg/dl
(70-99) (70-99)
08/17/24 08/17/24
20:38 20:41
RBC
Hgb
Hct
MCHC
RDW
Absolute Lymphs (auto)
Neutrophils %
Lymphocytes %
VBG pH
VBG pCO2
VBG pO2
VBG HCO3
Sodium
Potassium
Chloride
Carbon Dioxide
BUN
Creatinine
Glucose 459 H* mg/dl
(7099)
Alkaline Phosphatase
Lipase
B-Hydroxybutyrate
POC Glucose 422 H mg/dl
(7099)
08/17/24 19:11
08/17/24 20:41
Vital Signs
Initial and Last Documented VS:
Initial Vital Signs
Pulse Resp BP Pulse Ox
96 18 154/101 96
08/17/24 18:37 08/17/24 18:37 08/17/24 18:37 08/17/24 18:37
Last Documented Vital Signs
Temp Pulse Resp BP Pulse Ox
98.3 F 89 15 209/91 93
08/17/24 18:54 08/17/24 22:30 08/17/24 22:30 08/17/24 22:25 08/17/24 22:30
<OSCAR Noe - Last Filed: 08/17/24 20:44>
Orders/Labs/Results
Orders:
Orders
08/17/24 Dinner
NPO
Allow oral meds: Yes
Allow clear liquids: Sips of Clears
NPO with Ice Chips: Yes
08/17/24 18:38
Urinalysis Reflex To Culture Urgent
08/17/24 19:11
B-Hydroxybutyrate Urgent
Complete Blood Count/With Diff Urgent
Comprehensive Metabolic Panel Urgent
Lipase Urgent
Magnesium Urgent
Venous Blood Gas Urgent
%Oxygen/Room Air: room air
08/17/24 19:37
0.9% Sodium Chloride 1000 ml [Nss] 1,000 ml IV BOLUS
08/17/24 19:39
CR Chest - 2 Views Urgent
Comment:
Reason For Exam: soob
08/17/24 19:46
Ondansetron Injectable [Zofran] 4 mg IV NOW STA
08/17/24 19:50
Calcium Gluconate 1,000 mg IV NOW STA
Dextrose 50%-Water [Dextrose 50% Syringe] 12.5 grams IV [id number] PRN
Dextrose 50%-Water [Dextrose 50% Syringe] 25 grams IV NOW STA
Insulin Human Regular [Novolin R] 5 units IV NOW STA
Bedside Glucose PRE IV Insulin- HyperK+ NOW
08/17/24 19:58
Electrocardiogram (*1) Urgent
Reason for Study: Abdominal Pain
08/17/24 19:59
EKG- Treatment ONCE
08/17/24 20:15
Reg Insulin 100 Units/100 ml [Novolin R Insulin Infusion] 100 units in 100 ml IV ORDERED RATE
08/17/24 20:16
Buprenorphine [Subutex] 8 mg SL NOW STA
08/17/24 20:26
Admit/Transfer Patient As Directed
Co-Sign Provider:
Level of Care: Inpatient admission
Assign to:: ICU
Physician / Group: hospitalist
Diagnosis: DKA
Reason for Hospitalization: DKA
Expected length of stay greater than two midnights?: Yes
ELOS- Estimated Length of Stay in days: 2
I certify the patient meets the requirements for IP care: Yes
PRN Pain Medication Management As Directed
May give lesser potent ordered pain med per pt: Yes
preference::
Protocol:: Medication orders for pain may be administered in a
manner that supports deferring to patient preference
when the pt is:
- Requesting an ordered lesser potent pain medication.
Least to most potent pain medications are defined
as: acetaminophen < NSAID < tramadol < opioids
(morphine, oxycodone, hydromorphone).
- Requesting a lesser dose of the same medication IF
ORDERED.
- Requesting a less intrusive route of administration
if both routes are prescribed by the provider (PO <
IV).
08/17/24 20:27
Code Status As Directed
Resuscitation Status: Full Code
08/17/24 20:41
Glucose Stat
08/17/24 20:47
Metoclopramide [Reglan] 5 mg IV Q8HPRN PRN
08/17/24 21:20
Bedside Glucose POST IV Insulin- HyperK+ Q1HX2,Q2HX2
08/17/24 22:00
Topiramate [Topamax] 25 mg PO TID
08/17/24 22:20
Potassium Urgent
Comment: draw 2 hours after regular insulin IV administration
08/17/24 22:45
Reg Insulin 100 Units/100 ml [Novolin R Insulin Infusion] 100 units in 100 ml IV PER PROTOCOL
Currently infusing. Continue current dose and titrate:: Yes
08/17/24 22:45
Detention Attendant Consult Routine
Consulting Provider: Oniel Denton
Was physician already notified: Yes
Reason for consult: DKA
NEPHROLOGY CONSULT Routine
Consulting Provider: Kulwinder Vigil V.
Was physician already notified: Yes
VTE Contraindication Routine
VTE Mechanical Device Contraindication: Medical Contraindication
Pharmocologic Contraindication: Medical Contraindication
Activity As Directed
Activity Level: With Assistance
Bedside Glucose Monitoring As Directed
Frequency: Q1H
Intake/ Output As Directed
Frequency: Per unit guidelines
Notify MD As Directed
Notify physician if: Nurse to contact provider when glucose reaches 250 to obtain orders for D5 0.45 NaCl
Vital Signs As Directed
Frequency: Per unit guidelines
08/18/24 00:00
Basic Metabolic Panel Q4
08/18/24 04:00
Basic Metabolic Panel Q4
08/18/24 06:00
Sodium Zirconium Cyclosilicate [Lokelma] 10 gram PO TID@0600,1400,1800
08/18/24 08:00
Basic Metabolic Panel Q4
Apixaban [Eliquis] 5 mg PO BID
Buprenorphine [Subutex] 8 mg SL BID
Carvedilol [Coreg] 6.25 mg PO BID
Irbesartan [Avapro] 150 mg PO DAILY
Pantoprazole [Protonix] 40 mg PO BID
Renal Cap [Nephrocap] 1 capsule PO DAILY
Sertraline HCl [Zoloft] 50 mg PO DAILY
Sevelamer Carbonate [Renvela] 800 mg PO MEALS
Thiamine HCl [Vitamin B1] 100 mg PO DAILY
08/18/24 12:00
Basic Metabolic Panel Q4
08/18/24 16:00
Basic Metabolic Panel Q4
08/18/24 20:00
Basic Metabolic Panel Q4
Abnormal Lab Results
08/17/24 08/17/24 08/17/24
18:40 19:11 20:00
RBC 3.17 L 10^6/uL
(4.70-6.10)
Hgb 8.9 L g/dL
(13.0-18.0)
Hct 27.4 L %
(39.0-52.0)
MCHC 32.5 L g/dL
(33.0-37.0)
RDW 16.3 H %
(11.5-14.5)
Absolute Lymphs (auto) 0.7 L 10^3/uL
(1.2-3.4)
Neutrophils % 80.9 H %
(42.2-75.2)
Lymphocytes % 11.7 L %
(20.5-51.1)
VBG pH 7.23 L
(7.32-7.43)
VBG pCO2 29 L mmHg
(35-48)
VBG pO2 120 H mmHg
(30-50)
VBG HCO3 12.1 L mmol/L
(22-27)
Sodium 134 L mmol/L
(135-145)
Potassium 6.7 H* mmol/L
(3.5-5.1)
Chloride 95 L mmol/L
(98-107)
Carbon Dioxide 8 L* mmol/L
(22-30)
BUN 60 H mg/dl
(9-20)
Creatinine 6.6 H* mg/dL
(0.7-1.3)
Glucose 483 H* mg/dl
(70-99)
Alkaline Phosphatase 163 H U/L
(38-126)
Lipase 18 L U/L
(23-300)
B-Hydroxybutyrate 7.95 H mmol/L
(0.02-0.27)
POC Glucose 428 H mg/dl 429 H mg/dl
(70-99) (70-99)
08/17/24 08/17/24
20:38 20:41
RBC
Hgb
Hct
MCHC
RDW
Absolute Lymphs (auto)
Neutrophils %
Lymphocytes %
VBG pH
VBG pCO2
VBG pO2
VBG HCO3
Sodium
Potassium
Chloride
Carbon Dioxide
BUN
Creatinine
Glucose 459 H* mg/dl
(70-99)
Alkaline Phosphatase
Lipase
B-Hydroxybutyrate
POC Glucose 422 H mg/dl
(70-99)
08/17/24 19:11
08/17/24 20:41
Vital Signs
Initial and Last Documented VS:
Initial Vital Signs
Pulse Resp BP Pulse Ox
96 18 154/101 96
08/17/24 18:37 08/17/24 18:37 08/17/24 18:37 08/17/24 18:37
Last Documented Vital Signs
Temp Pulse Resp BP Pulse Ox
98.3 F 89 15 209/91 93
08/17/24 18:54 08/17/24 22:30 08/17/24 22:30 08/17/24 22:25 08/17/24 22:30
Dough Mixer consulted with Physician
Dough Mixer consulted with physician?: Yes
Name of Physician Consulted: edil
<Clinton Holloway, DO - Last Filed: 08/17/24 22:50>
Orders/Labs/Results
Orders:
Orders
08/17/24 Dinner
NPO
Allow oral meds: Yes
Allow clear liquids: Sips of Clears
NPO with Ice Chips: Yes
08/17/24 18:38
Urinalysis Reflex To Culture Urgent
08/17/24 19:11
B-Hydroxybutyrate Urgent
Complete Blood Count/With Diff Urgent
Comprehensive Metabolic Panel Urgent
Lipase Urgent
Magnesium Urgent
Venous Blood Gas Urgent
%Oxygen/Room Air: room air
08/17/24 19:37
0.9% Sodium Chloride 1000 ml [Nss] 1,000 ml IV BOLUS
08/17/24 19:39
CR Chest - 2 Views Urgent
Comment:
Reason For Exam: soob
08/17/24 19:46
Ondansetron Injectable [Zofran] 4 mg IV NOW STA
08/17/24 19:50
Calcium Gluconate 1,000 mg IV NOW STA
Dextrose 50%-Water [Dextrose 50% Syringe] 12.5 grams IV [id number] PRN
Dextrose 50%-Water [Dextrose 50% Syringe] 25 grams IV NOW STA
Insulin Human Regular [Novolin R] 5 units IV NOW STA
Bedside Glucose PRE IV Insulin- HyperK+ NOW
08/17/24 19:58
Electrocardiogram (*1) Urgent
Reason for Study: Abdominal Pain
08/17/24 19:59
EKG- Treatment ONCE
08/17/24 20:15
Reg Insulin 100 Units/100 ml [Novolin R Insulin Infusion] 100 units in 100 ml IV ORDERED RATE
08/17/24 20:16
Buprenorphine [Subutex] 8 mg SL NOW STA
08/17/24 20:26
Admit/Transfer Patient As Directed
Co-Sign Provider:
Level of Care: Inpatient admission
Assign to:: ICU
Physician / Group: hospitalist
Diagnosis: DKA
Reason for Hospitalization: DKA
Expected length of stay greater than two midnights?: Yes
ELOS- Estimated Length of Stay in days: 2
I certify the patient meets the requirements for IP care: Yes
PRN Pain Medication Management As Directed
May give lesser potent ordered pain med per pt: Yes
preference::
Protocol:: Medication orders for pain may be administered in a
manner that supports deferring to patient preference
when the pt is:
- Requesting an ordered lesser potent pain medication.
Least to most potent pain medications are defined
as: acetaminophen < NSAID < tramadol < opioids
(morphine, oxycodone, hydromorphone).
- Requesting a lesser dose of the same medication IF
ORDERED.
- Requesting a less intrusive route of administration
if both routes are prescribed by the provider (PO <
IV).
08/17/24 20:27
Code Status As Directed
Resuscitation Status: Full Code
08/17/24 20:41
Glucose Stat
08/17/24 20:47
Metoclopramide [Reglan] 5 mg IV Q8HPRN PRN
08/17/24 21:20
Bedside Glucose POST IV Insulin- HyperK+ Q1HX2,Q2HX2
08/17/24 22:00
Topiramate [Topamax] 25 mg PO TID
08/17/24 22:20
Potassium Urgent
Comment: draw 2 hours after regular insulin IV administration
08/17/24 22:45
Reg Insulin 100 Units/100 ml [Novolin R Insulin Infusion] 100 units in 100 ml IV PER PROTOCOL
Currently infusing. Continue current dose and titrate:: Yes
08/17/24 22:45
Detention Attendant Consult Routine
Consulting Provider: Oniel Denton
Was physician already notified: Yes
Reason for consult: DKA
NEPHROLOGY CONSULT Routine
Consulting Provider: Kulwinder Vigil V.
Was physician already notified: Yes
VTE Contraindication Routine
VTE Mechanical Device Contraindication: Medical Contraindication
Pharmocologic Contraindication: Medical Contraindication
Activity As Directed
Activity Level: With Assistance
Bedside Glucose Monitoring As Directed
Frequency: Q1H
Intake/ Output As Directed
Frequency: Per unit guidelines
Notify MD As Directed
Notify physician if: Nurse to contact provider when glucose reaches 250 to obtain orders for D5 0.45 NaCl
Vital Signs As Directed
Frequency: Per unit guidelines
08/18/24 00:00
Basic Metabolic Panel Q4
08/18/24 04:00
Basic Metabolic Panel Q4
08/18/24 06:00
Sodium Zirconium Cyclosilicate [Lokelma] 10 gram PO TID@0600,1400,1800
08/18/24 08:00
Basic Metabolic Panel Q4
Apixaban [Eliquis] 5 mg PO BID
Buprenorphine [Subutex] 8 mg SL BID
Carvedilol [Coreg] 6.25 mg PO BID
Irbesartan [Avapro] 150 mg PO DAILY
Pantoprazole [Protonix] 40 mg PO BID
Renal Cap [Nephrocap] 1 capsule PO DAILY
Sertraline HCl [Zoloft] 50 mg PO DAILY
Sevelamer Carbonate [Renvela] 800 mg PO MEALS
Thiamine HCl [Vitamin B1] 100 mg PO DAILY
08/18/24 12:00
Basic Metabolic Panel Q4
08/18/24 16:00
Basic Metabolic Panel Q4
08/18/24 20:00
Basic Metabolic Panel Q4
Abnormal Lab Results
08/17/24 08/17/24 08/17/24
18:40 19:11 20:00
RBC 3.17 L 10^6/uL
(4.70-6.10)
Hgb 8.9 L g/dL
(13.0-18.0)
Hct 27.4 L %
(39.0-52.0)
MCHC 32.5 L g/dL
(33.0-37.0)
RDW 16.3 H %
(11.5-14.5)
Absolute Lymphs (auto) 0.7 L 10^3/uL
(1.2-3.4)
Neutrophils % 80.9 H %
(42.2-75.2)
Lymphocytes % 11.7 L %
(20.5-51.1)
VBG pH 7.23 L
(7.32-7.43)
VBG pCO2 29 L mmHg
(35-48)
VBG pO2 120 H mmHg
(30-50)
VBG HCO3 12.1 L mmol/L
(22-27)
Sodium 134 L mmol/L
(135-145)
Potassium 6.7 H* mmol/L
(3.5-5.1)
Chloride 95 L mmol/L
(98-107)
Carbon Dioxide 8 L* mmol/L
(22-30)
BUN 60 H mg/dl
(9-20)
Creatinine 6.6 H* mg/dL
(0.7-1.3)
Glucose 483 H* mg/dl
(70-99)
Alkaline Phosphatase 163 H U/L
(38-126)
Lipase 18 L U/L
(23-300)
B-Hydroxybutyrate 7.95 H mmol/L
(0.02-0.27)
POC Glucose 428 H mg/dl 429 H mg/dl
(70-99) (70-99)
08/17/24 08/17/24
20:38 20:41
RBC
Hgb
Hct
MCHC
RDW
Absolute Lymphs (auto)
Neutrophils %
Lymphocytes %
VBG pH
VBG pCO2
VBG pO2
VBG HCO3
Sodium
Potassium
Chloride
Carbon Dioxide
BUN
Creatinine
Glucose 459 H* mg/dl
(70-99)
Alkaline Phosphatase
Lipase
B-Hydroxybutyrate
POC Glucose 422 H mg/dl
(70-99)
08/17/24 19:11
08/17/24 20:41
Vital Signs
Initial and Last Documented VS:
Initial Vital Signs
Pulse Resp BP Pulse Ox
96 18 154/101 96
08/17/24 18:37 08/17/24 18:37 08/17/24 18:37 08/17/24 18:37
Last Documented Vital Signs
Temp Pulse Resp BP Pulse Ox
98.3 F 89 15 209/91 93
08/17/24 18:54 08/17/24 22:30 08/17/24 22:30 08/17/24 22:25 08/17/24 22:30
<OSCAR Noe - Last Filed: 08/17/24 20:44>
MDM/Problems Addressed
Differential Diagnosis Includes:
Not limited to DKA dehydration [place] abnormality hyperglycemia
MDM/Problems Addressed:
Patient is a 34-year-old male well-known to this hospital with history of diabetes renal failure CHF on dialysis noncompliant presents to the ER with nausea vomiting. Patient reports he was in [place] recently and did have dialysis there but did
not go to dialysis here today. He tells me they gave up his spot. Patient presents with an elevated sugar of 483, elevated potassium of 6.7 with no hyperkalemic changes on EKG. Patient was given fluids and nausea medicine. Patient is in DKA with
a gap of 30 . eval by ED physician orderded fluids and insulin drip.
<OSCAR Noe - Last Filed: 08/17/24 20:44>
*Pulse Oximetry
Patient hypoxic: no
*EKG
Interpreted by ED Provider?: Yes
Heart Rate: 96
Rate: normal
Rhythm: sinus
Ischemia: non-specific ST changes
*Critical Care Note
Total Time (30-74mins, 75-104mins- exclusive of procedures): Not Applicable
comment:
Critical care statement: A total of 30 minutes of critical care time was provided for this patient. This includes management of unstable vital signs, evaluation of the patient at bedside, reviewing the patient's pertinent medical records, discussion
with consultants, review of old EKGs and review of pertinent medical records. This time with separate from time utilized to perform the aforementioned documented procedures
ED Attending Note
<Kimberly Kirkland PA-C - Last Filed: 08/17/24 18:39>
-
Portions of this chart may have been created with voice recognition software.� Occasional wrong word or��sound alike� substitutions may have occurred due to the inherent limitations of voice recognition software.
<Clinton Holloway DO - Last Filed: 08/17/24 22:50>
ED Attending Note
Patient seen and examined by attending physician: Yes
I performed the substantive portion of visit, reviewed & personally made and approve the management plan that is documented in note by myself or AVINASH.: Yes
ED Attending Note:
Seen with PA and SUPERVISOR [employer], nausea vomiting ESRD diabetic noncompliance, labs noted hyperkalemia, treated medically started insulin drip, will require admission also check EKG
Discharge Plan
Departure
Patient Disposition: Admit
Date of Disposition: 08/17/24
Time of Disposition: 20:38
Admit to: ICU
Admit to doctor: Hospitalist
Presentation/result/management discussed w/ accepting MD/DO: Hospitalist
Patient with high blood pressure during this ER visit?: Yes
Condition: Critical
Covid-19: Not Applicable
Discharge Problem:
Diabetic ketoacidosis, Renal failure
Interventions
Interventions:
*Risk Screen - Suicide Last Done: 08/17/24 18:37
*General Assessment Last Done: 08/17/24 18:37
*Neglect/Abuse Screening Last Done: 08/17/24 18:37
ED- Fall Risk Assessment Last Done: 08/17/24 22:40
*ED COVID-19 Vaccine History Last Done: 08/17/24 18:37
*Nursing Disposition Last Done: 08/17/24 22:40
ED- Neurological Assessment Last Done: 08/17/24 19:11
Discharge Date and Time
Discharge Date/Time: 08/17/24 22:41
[2024-08-17 18:41] LABS: Glucose - Point of Care 428 mg/dl (70-99)
[2024-08-17 19:21] LABS: Venous Blood Gas B.E. -14.1 mmol/L (-4 to +4); Venous Blood Gas HCO3 12.1 mmol/L (22-27); Venous Blood Gas O2 Sat % 99.2 %; Venous Blood Gas pCO2 29 mmHg (35-48); Venous Blood Gas pH 7.23 (7.32-7.43); Venous Blood Gas pO2 120 mmHg (30-50)
[2024-08-17 19:28] LABS: % Basophils 0.8 % (0-2); % Eosinophils 0.7 % (0-6); % Immature Granulocytes 0.5 % (0-0.5); % Lymphocytes 11.7 % (20.5-51.1); % Monocytes 5.4 % (1.7-9.3); % Neutrophils 80.9 % (42.2-75.2); Absolute Basophils 0.1 10^3/uL (0-0.2); Absolute Lymphocytes 0.7 10^3/uL (1.2-3.4); Absolute Monocytes 0.3 10^3/uL (0.1-0.6); Absolute Neutrophils 4.9 10^3/uL (1.4-6.5); Hematocrit 27.4 % (39.0-52.0); Hemoglobin 8.9 g/dL (13.0-18.0); Mean Corp Hgb Conc. 32.5 g/dL (33.0-37.0); Mean Corpuscular Hgb 28.1 pg (27.0-31.0); Mean Corpuscular Volume 86.4 fL (80.0-94.0); Mean Platelet Volume 9.6 fL (7.4-10.4); Nucleated Red Blood Cells % 0 % (-); Platelet Count 306 10^3/uL (130-400); Red Blood Cell Count 3.17 10^6/uL (4.70-6.10); Red Cell Dist. Width 16.3 % (11.5-14.5); White Blood Cell Count 6.1 10^3/uL (4.8-10.8)
[2024-08-17 19:49] LABS: ALT (SGPT) 13 U/L (0-50); AST (SGOT) 19 U/L (17-59); Albumin 4.1 g/dl (3.5-5.0); Alkaline Phosphatase 163 U/L (38-126); Blood Urea Nitrogen 60 mg/dl (9-20); Calcium 9.5 mg/dl (8.4-10.2); Carbon Dioxide 8 mmol/L (22-30); Chloride 95 mmol/L (98-107); Estimated Creatinine Clearance 14 ml/min; Glucose 483 mg/dl (70-99); Lipase 18 U/L (23-300); Magnesium 2.1 mg/dl (1.6-2.3); Potassium 6.7 mmol/L (3.5-5.1); Sodium 134 mmol/L (135-145); Total Bilirubin 0.9 mg/dl (0.2-1.3); Total Protein 6.8 g/dl (6.3-8.2); eGFR 10.59
[2024-08-17 20:01] LABS: Glucose - Point of Care 429 mg/dl (70-99)
[2024-08-17] MEDS: NOVOLIN R 5 UNITS IV (20:02)
[2024-08-17] MEDS: ZOFRAN 4 MG IV (20:03)
[2024-08-17] MEDS: NSS 1000 IV (20:04)
--- NOTE | 2024-08-17 20:26 | EDRN ---
Patient's insulin pump is off. Patient does not wish to disconnect it at this time fro his body.
--- NOTE | 2024-08-17 20:28 | EDRN ---
Verified calcium gluconate with Mignon ESPINOSA. Medication not scanning. Pharmacy aware.
[2024-08-17 20:29] LABS: B-Hydroxybutyrate 7.95 mmol/L (0.02-0.27)
[2024-08-17] MEDS: CALCIUM GLUCONATE 1000 MG IV (20:29)
[2024-08-17 20:39] LABS: Glucose - Point of Care 422 mg/dl (70-99)
--- NOTE | 2024-08-17 20:40 | HPS.HSE ---
Family Physician
-
Family Physician: Casper Arroyo
Chief Complaint
-
DKA
History of Present Illness
This is a 34-year-old male with insulin-dependent diabetes type 1 on insulin pump, ESRD on hemodialysis Friday, chronic vomiting, noncompliance, alcohol abuse, paroxysmal atrial fibrillation, hypertension, diastolic CHF who
presents to the emergency department in DKA.
Reports nausea vomiting for the last 2 days. Blood glucose running in the 380s at home. History of noncompliance but did not endorse this time. Last dialysis was on Friday in [place].
On arrival in the Emergency Department he was hypertensive to 160/110, pulse 89 oxygen saturation was 97% on room air. He was afebrile. His pH was 7.2 blood glucose was 483. Bicarb was 8. Potassium 6.4. CBC was unchanged from baseline and
unremarkable with a hemoglobin of 8.9.
Medical History
Past Medical History
Past Medical History: Reports Arrhythmia (paroxysmal atrial fibrillation), CHF, HTN, IDDM and Renal Failure
Additional Past Medical History:
Gastroparesis
Pulm hypertension
Alcohol dependence
Past Surgical History: Reports None
Social History
Tobacco: Non-smoker
Alcohol: Binge drinker
Drug: None
Personal: Single
Living: Alone
Employment: Not Employed
Family History
Family History: Not pertinent
Allergies / Home Medications
Allergies reflects when Allergies were last updated in [facility].
Home Medications with original date entered in [facility]
Allergy/Medication List:
Allergies
Allergy/AdvReac Type Severity Reaction Status Date / Time
shellfish derived Allergy Hives Verified 08/17/24 18:39
Home Medications
metoclopramide HCl 10 mg tablet (Reglan) 10 mg PO QIDPRN PRN nausea 04/07/23
Patient Own Insulin Pump 0 units SC .VIA PUMP diabetes ##0 07/04/24
insulin aspart U-100 100 unit/mL (3 mL) subcutaneous pen (Novolog FlexPen U-100 Insulin aspart) 5 unit (0.05 mL) SC TID 30 days #4.5 mL 07/04/24
apixaban 5 mg tablet (Eliquis) 5 mg PO BID 08/17/24
buprenorphine 4 mg-naloxone 1 mg sublingual film 1 film sublingual BID 08/17/24
carvedilol 6.25 mg tablet 6.25 mg PO BID 08/17/24
irbesartan 150 mg tablet 150 mg PO DAILY 08/17/24
pantoprazole 40 mg tablet,delayed release 40 mg PO BID 08/17/24
sertraline 50 mg tablet 50 mg PO DAILY 08/17/24
sevelamer carbonate 800 mg tablet 800 mg PO TID 08/17/24
thiamine HCl (vitamin B1) 100 mg tablet 100 mg PO DAILY 08/17/24
topiramate 25 mg tablet 25 mg PO TID 08/17/24
vitamin B complex-vitamin C-folic acid 0.8 mg tablet (Jessica-Jennifer) 1 tab PO DAILY 08/17/24
Review of Systems
-
Constitutional: Reports No Symptoms
EENT: Reports No Symptoms
Respiratory: Reports No Symptoms
Cardiac: Reports No Symptoms
Abdomen/GI: Reports Abdominal Pain, Nausea and Vomiting
: Reports No Symptoms
Musculoskeletal: Reports No Symptoms
Skin: Reports No Symptoms
Neurological: Reports No Symptoms
Endocrine: Reports No Symptoms
Hematologic/Lymphatic: Reports No Symptoms
Psych: Reports No Symptoms
Physical Exam
Vital Signs
Vital Signs
Temp Pulse Resp BP Pulse Ox
98.3 F 89 15 154/119 97
08/17/24 18:54 08/17/24 19:30 08/17/24 19:30 08/17/24 19:00 08/17/24 19:30
Physical Exam
General: No Apparent Distress and Comfortable
HEENT: NormoCephalic, Anicteric and Atraumatic
Respiratory: Clear
Cardiac: S1/S2 and Regular Rhythm
Breast: Deferred by me
GI: Soft, Non Distended and Normal Bowel Sounds
Rectal: Deferred by Provider
Genito-urinary: Deferred by me
Musculoskeletal: No Clubbing, No Cyanosis and No Edema
Skin: Warm
Neuro: AO x 3
Hematologic/Lymphatic: No Lymphadenopathy
Psych: Calm
Laboratory Results
-
08/17/24 19:11
Laboratory Results
Total Bilirubin 0.9 mg/dl (0.2-1.3) 08/17/24 19:11
AST 19 U/L (17-59) 08/17/24 19:11
ALT 13 U/L (0-50) 08/17/24 19:11
Alkaline Phosphatase 163 U/L (38-126) H 08/17/24 19:11
Lipase 18 U/L (23-300) L 08/17/24 19:11
Data Reviewed
-
Diagnostic Radiology: Image Personally Visualized and interpreted
Medical Tests (Nuc Med, Echo, EKG etc): Image Personally Visualized and interpreted
Lab Data: Labs Reviewed by me
Old Records: Reviewed
Impression/Plan
-
IMPRESSION:
Patient with type 1 diabetes on insulin pump who presents to the emergency department with DKA. ESRD on hemodialysis Friday
PLAN:
1. DKA - Non-compliance despite pump. Glucose 483, bicarb 8, pH 7.23. Euvolemic and ESRD.
- admit to icu
- given 250 ml bolus, no further IV fluids in dialysis patient.
- start insulin gtt
- bmp q 4 till closing gap
- npo with sips, ice chips water and meds
- corporate traffic manager consult
- pain control and antihypertensives
2. ESRD - last HD thursday, missed HD today. Hypertensive but no respiratory distress.
- nephrology consulted and aware
- K being corrected via insulin gtt
- will need HD in am
3.ETOH - no evidence of acute withdrawal
- monitor
4. pAFIB
- apixaban
- carvedilol
5. HTN
- continue irbesartan
DVT PPX - on apixaban
Code Status - full
[2024-08-17] MEDS: NOVOLIN R INSULIN INFUSION 100 IV (20:43)
[2024-08-17 21:28] LABS: Glucose 459 mg/dl (70-99)
[2024-08-17] MEDS: SUBUTEX 8 MG SL (21:39)
[2024-08-17] MEDS: REGLAN 5 MG IV (21:40)
[2024-08-17 22:16] LABS: Glucose - Point of Care 397 mg/dl (70-99)
[2024-08-17 22:57] LABS: Glucose - Point of Care 369 mg/dl (70-99)
--- NOTE | 2024-08-17 23:22 | PTCARENOTE ---
admitted ti icu- insilin gtt increased per dka orders- pt ax3 cooperative sinus bp 167/85 a/v fistula +bruit+thrill- right midline intact and rt hand iv with insulin infusing- 2 liters to liters to maintains sats
[2024-08-17] MEDS: TOPAMAX 25 MG PO (23:36)
[2024-08-18] VITALS (37 sets, daily range): BP systolic 100–172; BP diastolic 53–101; BMI 19.5
[2024-08-18 00:06] LABS: Glucose - Point of Care 354 mg/dl (70-99)
[2024-08-18 00:28] LABS: Blood Urea Nitrogen 65 mg/dl (9-20); Calcium 9.2 mg/dl (8.4-10.2); Carbon Dioxide 17 mmol/L (22-30); Chloride 98 mmol/L (98-107); Estimated Creatinine Clearance 14 ml/min; Glucose 345 mg/dl (70-99); Potassium 5.3 mmol/L (3.5-5.1); Sodium 136 mmol/L (135-145)
--- NOTE | 2024-08-18 04:06 | CON.INTV ---
Consultation
Consultation Request
Date/Time Consultation Requested: 08/18/2024-6 AM
Date/Time Consultation Performed: 08/18/2024-6 AM
Requesting Provider: Hospitalist
Performing Provider: Dr. Denton
Reason for Consultation: DKA
Medical History
-
Chief Complaint: DKA
History of Present Illness:
34-year-old male with insulin-dependent diabetes, end-stage renal disease on hemodialysis Friday, , and Friday, alcohol abuse, PAF, hypertension and diastolic CHF presented with vomiting for 2 days and DKA-shirt ironer supervisor consulted for
DKA/critical care management 08/18/2024. Patient continues to feel nauseous, lethargic, but denies any shortness of breath, chest pain, chest tightness, chest congestion, productive cough, abdominal pain, nausea, focal weakness or lower extremity
edema.
Past Medical History
Past Medical History: None (IDDM. Recurrent DKA. PAF. Diastolic CHF. Hypertension. ESRD on HD Friday//Friday. Gastroparesis. Hypertension. Alcohol use disorder.)
Social History
Tobacco: Non-smoker
Alcohol: Binge Drinker
Drug: None
Living: With Family
Occupational Exposures: No known asbestos exposure
Environmental Exposures: No known tuberculosis exposure
Family History
Family History: Reviewed & Not Pertinent
Allergies / Home Medications
Allergies
Allergy/AdvReac Type Severity Reaction Status Date / Time
shellfish derived Allergy Hives Verified 08/17/24 18:39
Home Medications
�Medication �Instructions �Recorded �Confirmed �Last Taken �Type
metoclopramide HCl 10 mg tablet 10 mg PO QIDPRN PRN nausea 04/07/23 08/17/24 04/25/24 History
(Reglan)
Patient Own Insulin Pump 0 units SC .VIA PUMP diabetes ##0 07/04/24 08/17/24 04/26/24 Rx
insulin aspart U-100 100 unit/mL 5 unit (0.05 mL) SC TID 30 days 07/04/24 08/17/24 Unknown Rx
(3 mL) subcutaneous pen (Novolog #4.5 mL
FlexPen U-100 Insulin aspart)
apixaban 5 mg tablet (Eliquis) 5 mg PO BID 08/17/24 08/17/24 08/16/24 History
buprenorphine 4 mg-naloxone 1 mg 1 film sublingual BID 08/17/24 08/17/24 08/16/24 History
sublingual film
carvedilol 6.25 mg tablet 6.25 mg PO BID 08/17/24 08/17/24 08/16/24 History
irbesartan 150 mg tablet 150 mg PO DAILY 08/17/24 08/17/24 08/16/24 History
pantoprazole 40 mg tablet,delayed 40 mg PO BID 08/17/24 08/17/24 08/16/24 History
release
sertraline 50 mg tablet 50 mg PO DAILY 08/17/24 08/17/24 08/16/24 History
sevelamer carbonate 800 mg tablet 800 mg PO TID 08/17/24 08/17/24 08/16/24 History
thiamine HCl (vitamin B1) 100 mg 100 mg PO DAILY 08/17/24 08/17/24 08/16/24 History
tablet
topiramate 25 mg tablet 25 mg PO TID 08/17/24 08/17/24 08/16/24 History
vitamin B complex-vitamin C-folic 1 tab PO DAILY 08/17/24 08/17/24 08/16/24 History
acid 0.8 mg tablet (Jessica-Jennifer)
Review of Systems
-
Unable to Obtain full review of systems at this time due to: Other (Per HPI)
Vitals / Labs / Diagnostic Testing
Vital Signs
Temp Pulse Resp BP Pulse Ox
98.5 F 77 11 166/86 97
08/17/24 23:21 08/18/24 03:00 08/18/24 03:00 08/18/24 03:00 08/18/24 03:00
Lab Data
08/17/24 19:11
Diagnostic Testing:
Physical Exam
-
Exam:
Well-nourished and well-developed in no apparent distress
HEENT-atraumatic, normocephalic
Neck-supple, no JVD, no bruit
Heart-regular rate and rhythm-no murmurs, rubs or gallops
Chest-clear to auscultation, no wheezes, crackles
Back-no tenderness
Abdomen-soft, nontender, nondistended, no hepatosplenomegaly
Extremities-no cyanosis, clubbing, edema and good peripheral pulses
Integument-intact, no rashes, lesions or ecchymosis
Neurology-alert and oriented, nonfocal motor and sensory exam
Assessment
-
34-year-old male with insulin-dependent diabetes, end-stage renal disease on hemodialysis Friday, , and Friday, alcohol abuse, PAF, hypertension and diastolic CHF presented with vomiting for 2 days and DKA-shirt ironer supervisor consulted for
DKA/critical care management 08/18/2024.
Diabetic ketoacidosis-noncompliant despite pump
Alcohol use disorder
End-stage renal disease
Anemia-hemoglobin 8.9-normocytic
Conditions present prior to admission:
Recent hospitalization 06/11/2024-acute alcohol intoxication, DKA and acute on top of chronic abdominal pain
IDDM-Recurrent DKA.
Medical noncompliance
PAF.
Diastolic CHF.
Hypertension.
ESRD on HD Friday//Friday.
Gastroparesis.
Hypertension.
Alcohol use disorder.
History cardiac arrest March 2024
History of polysubstance abuse
Former smoker
Chronic right-sided pleural effusion since 04/2023
Right thoracentesis 04/04/24--1500 mL straw-colored fluid
Right thoracentesis 04/13/24--1450 mL myles fluid
Anxiety and depression
Chronic abdominal pain
Appendectomy. L UE-AV fistula. PD catheter placement with subsequent removal. Biliary tube placement 05/2023.
Plan
Patient will be admitted to medical intensive care unit for close monitoring
Supplemental oxygen as needed
Nebulizers if needed-currently not bronchospastic
Incentive spirometry
Chronic moderate right pleural effusion status post multiple thoracentesis-no change, slightly improved-hold off on thoracentesis
Monitor blood sugar
Monitor anion gap
Insulin drip
Check A1c if not done in the last 3 months
Diabetic nurse practitioner consultation
Intravenous fluid resuscitation-gentle with fluid overload-missed dialysis yesterday
Monitor potassium closely and replace appropriately-note patient has end-stage renal disease and cannot clear potassium
Nephrology evaluation
Hemodialysis per nephrology
Follow MSAS
Alcohol withdrawal treatment protocol
Thiamine
Multivitamins and folate
Ativan as needed
Phenobarbital if needed
Monitor hemoglobin
Transfuse if needed
Patient on PPI
DVT prophylaxis-on Eliquis
GI prophylaxis-on Protonix
Early nutrition
Early mobilization
If patient able to be weaned off insulin drip and stable hemodynamically after dialysis then could be transferred out of ICU-shirt ironer supervisor will sign off-call pulmonary if respiratory issues arise
Critical care statement: A total of 50 minutes of critical care time was provided for this patient today. This includes management of unstable vital signs, insulin drip management, evaluation of the patient at bedside, reviewing the patient's
pertinent medical records including radiographs, DKA management, insulin drip management, microbiology, laboratory evaluations, and discussion with primary team, consultants, charge nurse, and critical care nursing.
Diagnostic data:
Chest x-ray 04/27/2024-moderate right pleural effusion, right lower lobe airspace disease
Chest x-ray 07/03/2024-moderate right pleural effusion, small left pleural effusion
Chest x-ray 08/17/2024-moderate loculated right pleural effusion mildly improved
Echocardiogram 04/02/2024-EF 55-60%, RV volume overload, dilated hypocontractile right ventricle
Data Reviewed
-
EKG: Report reviewed by me
Radiology: Image personally visualized and interpreted and Report reviewed by me
CT Scan: Image personally visualized and interpreted and Report reviewed by me
Medical Tests (Nuc Med, Echo etc): Report reviewed by me
Labs: Labs reviewed by me
Old Records: Reviewed
Critical Care Time (in minutes): 50
[2024-08-18 04:10] LABS: Glucose - Point of Care 187 mg/dl (70-99)
--- NOTE | 2024-08-18 04:34 | DOWNTIME ---
There was a [employer] Downtime on 08/18/2024 from 0100 to 08/18/2024 at 0355. Downtime documentation of patient's care, including medication administrations, has been reconciled in the electronic record per guidelines. Refer to the
patient's paper chart under the miscellaneous tab to see printed paper medication records and downtime forms.
[2024-08-18 05:06] LABS: Blood Urea Nitrogen 68 mg/dl (9-20); Calcium 9.2 mg/dl (8.4-10.2); Carbon Dioxide 23 mmol/L (22-30); Chloride 99 mmol/L (98-107); Estimated Creatinine Clearance 14 ml/min; Glucose 176 mg/dl (70-99); Potassium 5.1 mmol/L (3.5-5.1); Sodium 139 mmol/L (135-145); eGFR 10.21
--- NOTE | 2024-08-18 05:16 | PTCARENOTE ---
remains on insulin gtt at 1/hr- bmp reviewed with head of global strategic partnerships- still with gap- sinus ax3 still drowsy - cooperative- afebrile
[2024-08-18 05:21] LABS: Glucose - Point of Care 139 mg/dl (70-99)
[2024-08-18 06:16] LABS: Glucose - Point of Care 104 mg/dl (70-99)
[2024-08-18 07:08] LABS: Glucose - Point of Care 70 mg/dl (70-99)
[2024-08-18] MEDS: REGLAN 5 MG IV (07:28)
[2024-08-18] MEDS: SUBUTEX 8 MG SL (07:33)
[2024-08-18] MEDS: HEPARIN 500 UNITS IV ×2 (08:00→09:00)
[2024-08-18] MEDS: DEXTROSE 50% SYRINGE 12.5 GRAMS IV (08:02)
[2024-08-18 08:07] LABS: Glucose - Point of Care 54 mg/dl (70-99)
[2024-08-18 08:20] LABS: Glucose - Point of Care 226 mg/dl (70-99)
[2024-08-18 08:20] LABS: Glucose - Point of Care 301 mg/dl (70-99)
[2024-08-18 08:20] LABS: Glucose - Point of Care 318 mg/dl (70-99)
[2024-08-18 08:28] LABS: Glucose - Point of Care 111 mg/dl (70-99)
--- NOTE | 2024-08-18 09:35 | W.PN.NEPH.HD ---
Assessment
-
Seen on HD. no complaints. VSS, access ok
Progress Note - Hemodialysis
-
Date of Service: August 18, 2024
Duration: 30 minutes and 3 hours
Potassium Bath: 2
Calcium Bath: 2.5
Opti-Dialyzer: 160
Ultrafiltration: Other (2kg)
Blood Flow: 400
Dialysate Flow: 600
Heparin: 500x2
EPO: 6000 units
--- NOTE | 2024-08-18 09:36 | W.CON.NEPH ---
Consultation
-
Date/Time Consultation Requested: 08/18/2024 9 AM
Date/Time Consultation Performed: 08/18/2024 9 AM
Requesting Provider: Dr. Herrera
Performing Provider: Dr. Lindsey
Reason for Consultation: ESRD
Medical History
-
Chief Complaint: End-stage renal
History of Present Illness:
The patient is a 34-year-old man with diabetes mellitus type 1 on insulin, blindness, and end-stage renal disease on hemodialysis TTS. He frequently comes to the hospital seeking pain medications including narcotics. He says that his last dialysis
was on Friday in [place]. He was in [place] for over a month. Apparently he was admitted down there and was supposed to have rehab. He was discharged on Friday. The last 2 days he developed nausea vomiting and poor oral intake. He had then
come to the emergency room. His sugars were in the 300s. He was admitted for DKA. We are asked to assist with management of his dialysis.
Past Medical History
end-stage renal disease on hemodialysis
PE
constipation
CHF
pleural effusions
depression/ anxiety
polysubstance abuse
Diabetes mellitus type I
Left upper extremity AV fistula revision for ulcers
Pulmonary hypertension
pericardial effusion with impending cardiac tamponade had pericardiocentesis 385 cc exudative fluid on 03/31, history of right pleural effusion status post thoracentesis 04/04/2024, Hx cardiac arrest Hx PE, ESRD on HD Friday,,
paroxysmal A-fib, splenic infarct, diabetes mellitus
biliary stent 2019
Past Surgical History: Other (LUE AVF Appendectomy PD Catheter placed / removed)
Social History
Tobacco: Smoker
Alcohol: Occasional
Drug: Other (h/o polysub abuse)
Family History
Family History: Not Pertinent
Allergies / Home Medications
Allergy/AdvReac Type Severity Reaction Status Date / Time
shellfish derived Allergy Hives Verified 08/17/24 18:39
�Medication �Instructions �Recorded �Confirmed �Type
metoclopramide HCl 10 mg tablet 10 mg PO QIDPRN PRN nausea 04/07/23 08/17/24 History
(Reglan)
Patient Own Insulin Pump 0 units SC .VIA PUMP diabetes ##0 07/04/24 08/17/24 Rx
insulin aspart U-100 100 unit/mL 5 unit (0.05 mL) SC TID 30 days 07/04/24 08/17/24 Rx
(3 mL) subcutaneous pen (Novolog #4.5 mL
FlexPen U-100 Insulin aspart)
apixaban 5 mg tablet (Eliquis) 5 mg PO BID 08/17/24 08/17/24 History
buprenorphine 4 mg-naloxone 1 mg 1 film sublingual BID 08/17/24 08/17/24 History
sublingual film
carvedilol 6.25 mg tablet 6.25 mg PO BID 08/17/24 08/17/24 History
irbesartan 150 mg tablet 150 mg PO DAILY 08/17/24 08/17/24 History
pantoprazole 40 mg tablet,delayed 40 mg PO BID 08/17/24 08/17/24 History
release
sertraline 50 mg tablet 50 mg PO DAILY 08/17/24 08/17/24 History
sevelamer carbonate 800 mg tablet 800 mg PO TID 08/17/24 08/17/24 History
thiamine HCl (vitamin B1) 100 mg 100 mg PO DAILY 08/17/24 08/17/24 History
tablet
topiramate 25 mg tablet 25 mg PO TID 08/17/24 08/17/24 History
vitamin B complex-vitamin C-folic 1 tab PO DAILY 08/17/24 08/17/24 History
acid 0.8 mg tablet (Jessica-Jennifer)
Review of Systems
-
Nausea and vomiting. Abdominal pain.
All other systems: Negative unless noted
Physical Exam
Vital Signs
Vital Signs
Temp Pulse Resp BP Pulse Ox
97.6 F 77 9 144/82 98
08/18/24 07:00 08/18/24 07:00 08/18/24 07:00 08/18/24 07:00 08/18/24 07:00
Lab Results
WBC 6.1 10^3/uL (4.8-10.8) 08/17/24 19:11
RBC 3.17 10^6/uL (4.70-6.10) L 08/17/24 19:11
Hgb 8.9 g/dL (13.0-18.0) L 08/17/24 19:11
Hct 27.4 % (39.0-52.0) L 08/17/24 19:11
Plt Count 306 10^3/uL (130-400) 08/17/24 19:11
eGFR 10.21 08/18/24 04:15
Albumin 4.1 g/dl (3.5-5.0) 08/17/24 19:11
Laboratory Tests
07/04/24 08/17/24
03:51 19:11
Hgb 9.4 L
Potassium 4.7 D 6.7 H*
Physical Exam
Patient is awake alert oriented and in no distress. Mood and affect were pleasant, insight and judgment were good. Pupils are equal round and reactive to light, extraocular movements are intact, sclera were anicteric. Hearing was normal, ears and
nose are intact. Oropharynx was clear. Neck was supple with trachea midline and no thyromegaly. Heart was regular rate and rhythm without rubs. Lower extremities without edema. Lungs were clear to auscultation bilaterally and with normal
excursion. Abdomen was soft, nontender, with normal active bowel sounds, and no hepatosplenomegaly. Skin was without rash and with normal turgor.
Data Reviewed
-
Radiology: Image Personally Visualized and interpreted (Chest x-ray on 08/17/2024 by my reading shows moderate right effusion)
Medical Tests (Nuc Med, Echo etc): Image Personally Visualized and interpreted (EKG on 08/17/2024 by my read shows normal sinus rhythm T wave abnormality prolonged QT)
Labs: Labs Reviewed by me
Old Records: Reviewed
Assessment/Plan
-
Impression:
ESRD TTS most recently
Status post PEA/Asystole 03/13/24
PAF : briefly after code on 03/13/24
Chronic noncompliance with dialysis
left UE AVF
DKA
Hyperkalemia
Hyponatremia
Chronic Abdominal Pain / Gastroparesis
Pulmonary hypertension
Polysubstance abuse
Anxiety
History of biliary drain
Anemia
Right pleural effusion--s/p R thoracentesis for pleural effusion with 1.8L transudate 02/17/24
History of pericardial effusion requiring pericardial drain
Plan:
Dialyzed today
UF to dry weight
Glucose/DKA management per primary team
Avoid narcotics
If shortness of breath persist, thoracentesis may be considered again.
[2024-08-18 09:43] LABS: Blood Urea Nitrogen 70 mg/dl (9-20); Carbon Dioxide 22 mmol/L (22-30); Chloride 101 mmol/L (98-107); Estimated Creatinine Clearance 13 ml/min; Glucose 46 mg/dl (70-99); Sodium 140 mmol/L (135-145); eGFR 10.78
--- NOTE | 2024-08-18 10:09 | PTCARENOTE ---
Assumed care of pt from shift stacker RN. AAOx3 but drowsy. Arousable to voice. Insulin gtt placed on hold for blood sugar result of 70 mg/dl at [address] D[address]. 4oz of OJ given to patient and instructed to drink. Blood sugar recheck at 0756
resulted at 54 mg/dl. Pt refusing PO intake due to nausea. 12.5g Dextrose 50% IV given for hypoglycemia treatment. Recheck blood sugar at 0817 resulted at 111 mg/dl. Pt remains of insulin gtt. Nephrology at bedside this morning during HD session.
Per Dr. Lindsey will keep insulin gtt off and recheck BMP after HD to assess anion gap. Diabetes consulted. Assessment documented. Pt resting in bed, HD ongoing. court supervisor at bedside.
[2024-08-18] MEDS: RETACRIT 6000 UNITS IV (10:10)
[2024-08-18 10:11] LABS: Glucose - Point of Care 120 mg/dl (70-99)
--- NOTE | 2024-08-18 10:13 | W.PN.HOSP.TC ---
Today's Communication/Plan
-
Continue IV insulin drip and trend BMP
Likely transition to subcu regimen today
Dialysis per nephrology
Consider repeat thoracentesis here
Assessment / Plan
Assessment / Plan
#DKA
#T1DM
-Presented with nausea and vomiting over 2 days, glucose 400s, BHB 7.2, pH 7.23
-Home regimen includes insulin via insulin pump as well as insulin aspart 5 units 3 times daily
-He has noted to have noncompliance with his regimen including insulin pump
-Currently on IV insulin drip, remains with anion gap of 17; some hypoglycemia this morning
-Labs are improving on IV insulin drip; symptomatically improved
-Diabetic consult and ICU following
Plan
-Continue with IV insulin and trend BMP Q4
-Transition to subcutaneous insulin/pump when gap closed
-Continue to monitor potassium and phosphorus, replete per protocol
-Plan for oral intake and transition to SQ regimen today
#Recurrent right-sided loculated pleural effusion
-On x-ray he does have a moderate appearing right pleural effusion with loculation, improved from last study
-Has previously had thoracentesis; Fluid studies do seem transudative, likely from pulmonary edema/CHF
-Will continue to monitor for symptoms and consider repeat thoracentesis here
#ESRD on HD M/W/F
-Likely secondary to diabetic nephropathy that also has significant hypertensive is
-C/B chronic anemia as well as bone mineral disease; no chronic acidemia
-Home medications include Nepro, sevelamer; on EPO replacement for anemia
-Resumed on hemodialysis session today with nephrology
#Paroxysmal AF
-Home medications include carvedilol and Eliquis twice daily
-No known history of electrophysiologic interventions
-Heart rate currently sinus and WNL
#HFpEF/RV failure
#Pulmonary hypertension
-Last echo with normal LV function/structure; did show dilated RV with reduced systolic
-Not currently on GDMT likely due to his ESRD/noncompliance
-Home medications include beta-ida, ARB; no diuretic due to ESRD
-Seems euvolemic at this time
#Hypertension
-No known hypertensive systemic disease no cannot rule out rule in ESRD
-Home medications include carvedilol, irbesartan; HD for volume status
-Blood pressure currently adequate
#H/O PE
#H/O splenic infarct
-Unclear etiology, no known underlying hypercoagulable state
-He is currently on Eliquis as above; unclear if he had hypercoagulable workup
-Should follow-up with PCP/real estate sales associate after discharge for factor V Leiden, protein C/S mutation, antiphospholipid antibody
#H/O cardiac arrest
-Unclear etiology, may be related to previous PE versus substance abuse
-No known family history of sudden cardiac
#Polysubstance abuse
-Encourage cessation
-Should pursue rehab after discharge
DVT prophylaxis: Eliquis
Diet: NPO now, Carbohydrate controlled planned
CODE STATUS: Full code
Anticipated Discharge: 24 - 48 hours
Subjective/Interval History
-
Date of Service: August 18, 2024
Seen and examined at the bedside while receiving dialysis in the ICU. No acute events since admission. AFVSS as of this morning.
He was very lethargic while receiving dialysis and minimal history was able to be obtained.
He was able to deny acute complaints including chest pain, dyspnea, abdomen pain, fevers or chills, urinary issues, bleeding or bruising, new paresthesias or weakness
Objective Data
-
Labs:
Laboratory Results
08/18/24 08/18/24 08/18/24
00:04 04:15 08:02
Sodium 136 139 140
Potassium 5.3 H 5.1 6.0 H
Chloride 98 99 101
Carbon Dioxide 17 L 23 22
BUN 65 H 68 H 70 H
Creatinine 6.7 H* 6.8 H* 6.5 H*
Glucose 345 H 176 H 46 L*
Calcium 9.2 9.2 9.0
08/18/24 08/18/24 08/18/24
12:00 16:00 20:00
Sodium Pending Pending Pending
Potassium Pending Pending Pending
Chloride Pending Pending Pending
Carbon Dioxide Pending Pending Pending
BUN Pending Pending Pending
Creatinine Pending Pending Pending
Glucose Pending Pending Pending
Calcium Pending Pending Pending
Vital Signs:
Vital Signs
Temp Pulse Resp BP Pulse Ox
97.6 F 75 10 135/74 99
08/18/24 07:00 08/18/24 09:45 08/18/24 09:45 08/18/24 09:45 08/18/24 09:45
I&O
08/17/24 08/18/24 08/19/24
06:59 06:59 06:59
Intake Total 92 / 92.5 240.5 / 240.5
Output Total 0 / 0
Balance 92 / 92.5 240.5 / 240.5
Review of Systems
-
Unable to obtain full review of systems at this time due to: Other (Lethargic while receiving dialysis)
Physical Exam
-
General: No Apparent Distress, Comfortable and Other (Thin young male)
HEENT: Normocephalic, Atraumatic and Moist Mucous Membranes
Respiratory: Non Labored Respirations and Decreased Breath Sounds (Right base); Negative Wheezes, Rales or Rhonchi
Cardiac: Regular Rhythm and S1/S2; Negative Murmur, Rub, JVD or Gallop
GI: Soft, Nontender, Nondistended and Normal Bowel Sounds
Genito-urinary: No Costovertebral Tender
Musculoskeletal: No Clubbing, No Cyanosis and No Edema
Skin: Warm, Dry and Normal Turgor; Negative Rash
Neuro: AO x 3, Nonfocal/Grossly Intact, Central Nerve's Intact and Other (Lethargic)
Psych: Calm
Data Reviewed
-
Labs: Labs Reviewed by me, Discussed with Nurse and Discussed with Patient
[2024-08-18 12:12] LABS: Glucose - Point of Care 150 mg/dl (70-99)
[2024-08-18] MEDS: ZOLOFT 50 MG PO (12:17)
[2024-08-18] MEDS: ELIQUIS 5 MG PO ×2 (12:17→20:44)
[2024-08-18] MEDS: NEPHROCAP 1 CAPSULE PO (12:17)
[2024-08-18] MEDS: VITAMIN B1 100 MG PO (12:17)
[2024-08-18] MEDS: TOPAMAX 25 MG PO ×3 (12:17→20:49)
[2024-08-18] MEDS: COREG 6.25 MG PO ×2 (12:17→20:44)
[2024-08-18] MEDS: PROTONIX 40 MG PO ×2 (12:18→20:44)
[2024-08-18] MEDS: RENVELA PO ×3 (12:18→17:22)
[2024-08-18] MEDS: AVAPRO 150 MG PO (12:20)
[2024-08-18 12:41] LABS: Blood Urea Nitrogen 26 mg/dl (9-20); Calcium 8.5 mg/dl (8.4-10.2); Carbon Dioxide 27 mmol/L (22-30); Chloride 97 mmol/L (98-107); Estimated Creatinine Clearance 29 ml/min; Glucose 167 mg/dl (70-99); Potassium 4.1 mmol/L (3.5-5.1); Sodium 139 mmol/L (135-145); eGFR 27.27
--- NOTE | 2024-08-18 13:15 | CM ---
M following re: discharge planning.
Discussed in rounds, reviewed pt's chart, met with pt.
Pt is a 33 year old male, admitted with primary dx of DKA - Non-compliance despite pump. Glucose 483, bicarb 8, pH 7.23. Euvolemic and ESRD.
Pt is well know to this CM from previous admissions. Pt lives with mother and father in a 2SH, has been on HD treatment for 3 years, [facility], [facility] 6:00 a.m chair time, [employer] transport.
PCP: Casper Arroyo
Pharmacy: [facility].
D/C plan: home with resumptions of HD treatment at [facility],
CM will follow with discharge plan updates as hospitalization progresses
[2024-08-18 14:35] LABS: Glucose - Point of Care 207 mg/dl (70-99)
--- NOTE | 2024-08-18 14:39 | PTCARENOTE ---
Assessment unchanged. Pt remains off insulin gtt. Awaiting Diabetes SHAKER SCREEN OPERATOR for further management. 2kg taken off during HD session today.
[2024-08-18] MEDS: BENADRYL 25 MG IV (15:44)
[2024-08-18] MEDS: COMPAZINE 5 MG IV (15:44)
[2024-08-18 16:03] LABS: Blood Urea Nitrogen 28 mg/dl (9-20); Calcium 8.6 mg/dl (8.4-10.2); Carbon Dioxide 23 mmol/L (22-30); Chloride 97 mmol/L (98-107); Estimated Creatinine Clearance 25 ml/min; Glucose 234 mg/dl (70-99); Potassium 4.6 mmol/L (3.5-5.1); Sodium 137 mmol/L (135-145); eGFR 22.67
--- NOTE | 2024-08-18 16:05 | PN.DE.MGMTRT ---
Insulin Management
- -
08/18/2024: Diabetes Management Consult:
34 year old male p/w N/V over 2 days, glucose 400s, BHB 7.2, pH 7.23, severe DKA, GAP 31.
Pt is well known to Diabetes team from recurrent hospitalizations due to DKA, last hospital admission: 07/03/24 - 07/04/24.
PMH: ETOH use disorder, recurrent DKA, ESRD on HD (MWF), T1DM for 18 years. Uses Medtronic 770 pump with NovoLog insulin and Guardian sensor.
Last A1C 7.4% on 06/11/24. Cr 6.6-->3.5, eGFR 22.67
Patient resting in bed in ICU, lethargic and minimally able to discuss diabetes mgt.
States he did not bring any of his insulin pump supplies or insulin.
Was started on DKA protocol. Noted for Hypoglycemia 45(V)@ 8am-->insulin gtt turned off and has remained off since. GAP still open @ 15 per last BMP @Noon.
NPO, glucose has trended up to 207 post HD. Has BMP pending at 1600, discussed with ICU team and Nurse, will check STAT BMP now.
1500 BMP has been resulted, indicates worsening GAP @17 and venous glucose of 234. Instructed Nurse to restart DKA protocol.
Cont DKA protocol, repeat BMP @ 8pm and MN. Need 2 BMPs with closed GAP prior to transitioning off drip
Will reassess for readiness to transition off infusion in AM.
Diabetes History
- -
Type of Diabetes: 1
Pre-Admission Diabetes Regimen
08/17/24 08/18/24 08/18/24
19:11 00:04 04:15
Creatinine 6.6 H* 6.7 H* 6.8 H*
08/18/24 08/18/24 08/18/24
08:02 12:15 15:19
Creatinine 6.5 H* 3.0 H 3.5 H
Insulin Pump Settings
IP Diabetes Regimen
08/17/24 08/17/24 08/17/24
18:40 19:11 20:00
Glucose 483 H*
POC Glucose 428 H 429 H
08/17/24 08/17/24 08/17/24
20:38 20:41 22:15
Glucose 459 H*
POC Glucose 422 H 397 H
08/17/24 08/17/24 08/18/24
22:46 23:55 00:04
Glucose 345 H
POC Glucose 369 H 354 H
08/18/24 08/18/24 08/18/24
00:56 01:58 03:08
Glucose
POC Glucose 318 H 301 H 226 H
08/18/24 08/18/24 08/18/24
03:57 04:15 05:08
Glucose 176 H
POC Glucose 187 H 139 H
08/18/24 08/18/24 08/18/24
06:04 06:55 07:56
Glucose
POC Glucose 104 H 70 54 L*
08/18/24 08/18/24 08/18/24
08:02 08:17 10:00
Glucose 46 L*
POC Glucose 111 H 120 H
08/18/24 08/18/24 08/18/24
12:01 12:15 14:24
Glucose 167 H
POC Glucose 150 H 207 H
08/18/24
15:19
Glucose 234 H
POC Glucose
Patient Education
[2024-08-18 16:37] LABS: Glucose - Point of Care 237 mg/dl (70-99)
--- NOTE | 2024-08-18 16:37 | PTCARENOTE ---
Insulin gtt restarted for DKA protocol per Diabetes BOAT WRAPPER. 1500 BMP with GAP at 17. Will continue to trend BMP. Assessment otherwise unchanged.
[2024-08-18 17:34] LABS: Glucose - Point of Care 212 mg/dl (70-99)
[2024-08-18 18:35] LABS: Glucose - Point of Care 186 mg/dl (70-99)
[2024-08-18 19:39] LABS: Glucose - Point of Care 153 mg/dl (70-99)
[2024-08-18 20:38] LABS: Glucose - Point of Care 110 mg/dl (70-99)
[2024-08-18] MEDS: SUBUTEX 4 MG SL (20:44)
[2024-08-18 21:32] LABS: Blood Urea Nitrogen 32 mg/dl (9-20); Calcium 8.6 mg/dl (8.4-10.2); Carbon Dioxide 29 mmol/L (22-30); Chloride 98 mmol/L (98-107); Estimated Creatinine Clearance 22 ml/min; Glucose 116 mg/dl (70-99); Potassium 4.4 mmol/L (3.5-5.1); Sodium 138 mmol/L (135-145)
[2024-08-18 21:44] LABS: Glucose - Point of Care 109 mg/dl (70-99)
--- NOTE | 2024-08-18 22:00 | PTCARENOTE ---
insulin gtt infusing- gap closed x1 - redrawing bmp at 0000- pt ax3 afebrile, sinus, bp wnl- took po meds w/out difficulty-
[2024-08-18 22:35] LABS: Glucose - Point of Care 129 mg/dl (70-99)
[2024-08-18 23:40] LABS: Glucose - Point of Care 111 mg/dl (70-99)
[2024-08-19] VITALS (16 sets, daily range): BP systolic 91–170; BP diastolic 44–96; BMI 18.9
[2024-08-19 00:37] LABS: Glucose - Point of Care 112 mg/dl (70-99)
[2024-08-19 00:49] LABS: Blood Urea Nitrogen 33 mg/dl (9-20); Calcium 8.4 mg/dl (8.4-10.2); Carbon Dioxide 28 mmol/L (22-30); Chloride 98 mmol/L (98-107); Estimated Creatinine Clearance 22 ml/min; Glucose 116 mg/dl (70-99); Potassium 4.7 mmol/L (3.5-5.1); Sodium 136 mmol/L (135-145); eGFR 19.31
[2024-08-19 01:59] LABS: Glucose - Point of Care 115 mg/dl (70-99)
[2024-08-19 03:27] LABS: Glucose - Point of Care 129 mg/dl (70-99)
--- NOTE | 2024-08-19 03:49 | PTCARENOTE ---
pt states his mother will be bringing in new supplies for his insulin pump by 1629
[2024-08-19 04:01] LABS: % Basophils 0.9 % (0-2); % Immature Granulocytes 0.2 % (0-0.5); % Lymphocytes 18.7 % (20.5-51.1); % Monocytes 8.4 % (1.7-9.3); % Neutrophils 68.8 % (42.2-75.2); Absolute Basophils 0.1 10^3/uL (0-0.2); Absolute Eosinophils 0.2 10^3/uL (0-0.7); Absolute Lymphocytes 1.1 10^3/uL (1.2-3.4); Absolute Monocytes 0.5 10^3/uL (0.1-0.6); Absolute Neutrophils 3.9 10^3/uL (1.4-6.5); Hematocrit 28.4 % (39.0-52.0); Mean Corp Hgb Conc. 31.7 g/dL (33.0-37.0); Mean Corpuscular Hgb 28.4 pg (27.0-31.0); Mean Corpuscular Volume 89.6 fL (80.0-94.0); Mean Platelet Volume 9.2 fL (7.4-10.4); Nucleated Red Blood Cells % 0 % (-); Platelet Count 271 10^3/uL (130-400); Red Blood Cell Count 3.17 10^6/uL (4.70-6.10); Red Cell Dist. Width 16.1 % (11.5-14.5); White Blood Cell Count 5.7 10^3/uL (4.8-10.8)
[2024-08-19 04:47] LABS: Blood Urea Nitrogen 33 mg/dl (9-20); Calcium 8.6 mg/dl (8.4-10.2); Carbon Dioxide 28 mmol/L (22-30); Chloride 99 mmol/L (98-107); Estimated Creatinine Clearance 20 ml/min; Glucose 138 mg/dl (70-99); Potassium 4.9 mmol/L (3.5-5.1); Sodium 139 mmol/L (135-145)
[2024-08-19 05:00] LABS: Glucose - Point of Care 112 mg/dl (70-99)
[2024-08-19 06:42] LABS: Glucose - Point of Care 124 mg/dl (70-99)
--- NOTE | 2024-08-19 07:28 | W.PN.INTV ---
Today's Communication / Plan
Recommendations
Monitor blood sugar
Wean insulin drip
Home insulin pump will be brought in by mother
If able to come off insulin drip and transfer out of ICU-call pulmonary if respiratory issues arise
Assessment
-
34-year-old male with insulin-dependent diabetes, end-stage renal disease on hemodialysis Friday, , and Friday, alcohol abuse, PAF, hypertension and diastolic CHF presented with vomiting for 2 days and DKA-hotel assistant manager consulted for
DKA/critical care management 08/18/2024.
Diabetic ketoacidosis-noncompliant despite pump
Alcohol use disorder
End-stage renal disease
Anemia-hemoglobin 8.9-normocytic
Conditions present prior to admission:
Recent hospitalization 06/11/2024-acute alcohol intoxication, DKA and acute on top of chronic abdominal pain
IDDM-Recurrent DKA.
Medical noncompliance
PAF.
Diastolic CHF.
Hypertension.
ESRD on HD Friday//Friday.
Gastroparesis.
Hypertension.
Alcohol use disorder.
History cardiac arrest March 2024
History of polysubstance abuse
Former smoker
Chronic right-sided pleural effusion since 04/2023
Right thoracentesis 04/04/24--1500 mL straw-colored fluid
Right thoracentesis 04/13/24--1450 mL myles fluid
Anxiety and depression
Chronic abdominal pain
Appendectomy. L UE-AV fistula. PD catheter placement with subsequent removal. Biliary tube placement 05/2023.
Plan
Hemodynamics and blood sugars have improved
Supplemental oxygen as needed
Nebulizers if needed-currently not bronchospastic
Incentive spirometry encourage
Chronic moderate right pleural effusion status post multiple thoracentesis-no change, slightly improved-hold off on thoracentesis
Monitor blood sugar
Monitor anion gap
Insulin drip
Follow A1c
Diabetic nurse practitioner consultation
Intravenous fluid resuscitation-gentle with fluid overload-at dialysis yesterday and will receive again on Friday-normally Friday, and Friday
Monitor potassium closely and replace appropriately-note patient has end-stage renal disease and cannot clear potassium
Nephrology evaluation ongoing
Hemodialysis per nephrology-scheduled for Friday
Follow MSAS
Alcohol withdrawal treatment protocol
Thiamine
Multivitamins and folate
Ativan as needed
Phenobarbital if needed-not needed
Alcohol cessation counseling
Smoking cessation counseling
Monitor hemoglobin
Transfuse if needed
Patient on PPI
DVT prophylaxis-on Eliquis
GI prophylaxis-on Protonix
Early nutrition
Early mobilization
If patient able to be weaned off insulin drip and stable hemodynamically after dialysis then could be transferred out of ICU-hotel assistant manager will sign off-call pulmonary if respiratory issues arise
Critical care statement: A total of 35 minutes of critical care time was provided for this patient today. This includes management of unstable vital signs, insulin drip management, evaluation of the patient at bedside, reviewing the patient's
pertinent medical records including radiographs, DKA management, insulin drip management, microbiology, laboratory evaluations, and discussion with primary team, consultants, charge nurse, and critical care nursing.
Diagnostic data:
Chest x-ray 04/27/2024-moderate right pleural effusion, right lower lobe airspace disease
Chest x-ray 07/03/2024-moderate right pleural effusion, small left pleural effusion
Chest x-ray 08/17/2024-moderate loculated right pleural effusion mildly improved
Echocardiogram 04/02/2024-EF 55-60%, RV volume overload, dilated hypocontractile right ventricle
Subjective Dataa
Subjective Data
Date of Service:
Date of Service: August 19, 2024
Chief Complaint: Dye And Chemical Coordinator Follow Up and Pulmonary Follow Up
Subjective:
Feels better, still some nausea, no shortness of breath, chest pain or abdominal pain
Review of Systems
General: Other (Per HPI)
Objective Data
Data Reviewed
Vital Signs / I&O / Oxygen:
Vital Signs
Temp Pulse Resp BP Pulse Ox
97.7 F 74 11 136/72 99
08/19/24 03:47 08/19/24 06:00 08/19/24 06:00 08/19/24 06:00 08/19/24 06:00
Intake and Output
08/18/24 08/19/24 08/20/24
06:59 06:59 06:59
Intake Total 92 / 92.5 488.0 / 488.0
Output Total 0 / 0
Balance 92 / 92.5 488.0 / 488.0
SaO2 99
Nasal Cannula flow liters per 2
minute
Physical Exam
General: Respiratory Distress (n) and Comfortable
HEENT: Normocephalic, Anicteric and Moist Mucous Membranes
Cardiovascular: Regular Rhythm
Respiratory: Crackles (n), Rhonchi (n), Non-Labored Respirations, Accessory Resp Muscle Use (n) and Stridor (n)
GI: Soft, Non Distended and Non Tender
Neurology: Awake, Alert and No Motor Deficits
Skin: Warm, Good Color, Cyanosis (n) and Jaundice (n)
Labs/Micro/Reports
Lab Data
08/19/24 03:46
08/19/24 03:46
[2024-08-19 07:43] LABS: Glucose - Point of Care 123 mg/dl (70-99)
[2024-08-19] MEDS: AVAPRO 150 MG PO (07:47)
[2024-08-19] MEDS: PROTONIX 40 MG PO ×2 (07:48→20:44)
[2024-08-19] MEDS: VITAMIN B1 100 MG PO (07:48)
[2024-08-19] MEDS: ELIQUIS 5 MG PO ×2 (07:48→20:44)
[2024-08-19] MEDS: TOPAMAX 25 MG PO ×3 (07:48→20:53)
[2024-08-19] MEDS: NEPHROCAP 1 CAPSULE PO (07:48)
[2024-08-19] MEDS: COREG 6.25 MG PO ×2 (07:48→20:45)
[2024-08-19] MEDS: ZOLOFT 50 MG PO (07:48)
[2024-08-19] MEDS: SUBUTEX 4 MG SL ×2 (07:49→20:44)
[2024-08-19] MEDS: RENVELA PO ×2 (07:49→11:21)
--- NOTE | 2024-08-19 07:55 | PTCARENOTE ---
Patient resting comfortably in bed, no complaints, verbalized desire to go home today. PT states his mother will be in later with his home insulin pump and that he would like to put it back on when she gets here and go home. Hat Blocking Operator at the
bedside with RN and explained to him that he is still requiring insulin gtt per protocol and that he needs to see diabetes coordinator today. Also discussion of 2nd HD session today.
[2024-08-19] MEDS: REGLAN 5 MG IV ×2 (08:33→17:34)
[2024-08-19 08:41] LABS: Glucose - Point of Care 104 mg/dl (70-99)
--- NOTE | 2024-08-19 08:59 | W.PN.NEPH.PH ---
Today's Communication / Plan
-
HD tomorrow
Assessment/Plan
-
Impression:
ESRD TTS most recently
Status post PEA/Asystole 03/13/24
PAF : briefly after code on 03/13/24
Chronic noncompliance with dialysis
left UE AVF
DKA
Hyperkalemia
Hyponatremia
Chronic Abdominal Pain / Gastroparesis
Pulmonary hypertension
Polysubstance abuse
Anxiety
History of biliary drain
Anemia
Right pleural effusion--s/p R thoracentesis for pleural effusion with 1.8L transudate 02/17/24
History of pericardial effusion requiring pericardial drain
Plan:
HD tomorrow
he says that he lost his chair at his old unit and they will not take him back.
will need arrangements at another HD unit
-
-
Date of Service: August 19, 2024
CC / HPI / ROS
-
Chief Complaint:
ESRD
History of Present Illness:
tolerated HD yesterday
BP stable
on insulin gtt for DKA
Review of Systems:
no CP/SOB
Labs
-
Labs:
WBC 5.7 10^3/uL (4.8-10.8) 08/19/24 03:46
RBC 3.17 10^6/uL (4.70-6.10) L 08/19/24 03:46
Hgb 9.0 g/dL (13.0-18.0) L 08/19/24 03:46
Hct 28.4 % (39.0-52.0) L 08/19/24 03:46
Plt Count 271 10^3/uL (130-400) 08/19/24 03:46
Sodium 139 mmol/L (135-145) 08/19/24 03:46
Potassium 4.9 mmol/L (3.5-5.1) 08/19/24 03:46
Chloride 99 mmol/L (98-107) 08/19/24 03:46
Carbon Dioxide 28 mmol/L (22-30) 08/19/24 03:46
BUN 33 mg/dl (9-20) H 08/19/24 03:46
Creatinine 4.3 mg/dL (0.7-1.3) H* 08/19/24 03:46
eGFR 17.70 08/19/24 03:46
Glucose 138 mg/dl (70-99) H 08/19/24 03:46
Calcium 8.6 mg/dl (8.4-10.2) 08/19/24 03:46
Albumin 4.1 g/dl (3.5-5.0) 08/17/24 19:11
Physical Exam
-
Vital Signs:
Vital Signs
Temp Pulse Resp BP Pulse Ox
97.7 F 72 12 149/80 98
08/19/24 08:13 08/19/24 07:00 08/19/24 07:00 08/19/24 07:00 08/19/24 07:37
Cardiovascular:: Regular rate and rhythm
Respiratory:: Bilateral: Coarse
Lung Excursion:: Normal
Abdomen:: Nontender and Soft
Bowel Sounds:: Normal
Extremity Edema:: None: Bilateral:
--- NOTE | 2024-08-19 10:18 | W.PN.HOSP.TC ---
Today's Communication/Plan
-
Transition to subcutaneous insulin regimen
Discussion on how to transition back to his pump after discharge
Plan for dialysis tomorrow
Assessment / Plan
Assessment / Plan
#DKA
#T1DM
-Presented with nausea and vomiting over 2 days, glucose 400s, BHB 7.2, pH 7.23
-Home regimen includes insulin via insulin pump as well as insulin aspart 5 units 3 times daily
-He has noted to have noncompliance with his regimen including insulin pump
-Labs are improving on IV insulin drip; symptomatically improved
-Diabetic consult and ICU following; anion gap closed x 2 on IV insulin
Plan
-Transition to subcutaneous insulin regimen
-Will need plan for transition from subcutaneous regimen to his insulin pump at discharge
-Carbohydrate controlled diet
#Recurrent right-sided loculated pleural effusion
-On x-ray he does have a moderate appearing right pleural effusion with loculation, improved from last study
-Has previously had thoracentesis; Fluid studies do seem transudative, likely from pulmonary edema/CHF
-Will continue to monitor for symptoms and consider repeat thoracentesis here
#ESRD on HD M/W/F
-Likely secondary to diabetic nephropathy that also has significant hypertensive is
-C/B chronic anemia as well as bone mineral disease; no chronic acidemia
-Home medications include Nepro, sevelamer; on EPO replacement for anemia
-Resumed on hemodialysis session today with nephrology
#Paroxysmal AF
-Home medications include carvedilol and Eliquis twice daily
-No known history of electrophysiologic interventions
-Heart rate currently sinus and WNL
#HFpEF/RV failure
#Pulmonary hypertension
-Last echo with normal LV function/structure; did show dilated RV with reduced systolic
-Not currently on GDMT likely due to his ESRD/noncompliance
-Home medications include beta-ida, ARB; no diuretic due to ESRD
-Seems euvolemic at this time
#Hypertension
-No known hypertensive systemic disease no cannot rule out rule in ESRD
-Home medications include carvedilol, irbesartan; HD for volume status
-Blood pressure currently adequate
#H/O PE
#H/O splenic infarct
-Unclear etiology, no known underlying hypercoagulable state
-He is currently on Eliquis as above; unclear if he had hypercoagulable workup
-Should follow-up with PCP/director dental services after discharge for factor V Leiden, protein C/S mutation, antiphospholipid antibody
#H/O cardiac arrest
-Unclear etiology, may be related to previous PE versus substance abuse
-No known family history of sudden cardiac
#Polysubstance abuse
-Encourage cessation
-Should pursue rehab after discharge
DVT prophylaxis: Eliquis
Diet: NPO now, Carbohydrate controlled planned
CODE STATUS: Full code
Anticipated Discharge: Within 24 hours
Subjective/Interval History
-
Date of Service: August 19, 2024
Seen and examined at the bedside. No acute events overnight. AFVSS this morning.
Patient does not have insulin pump or any home insulin with him here. Will speak to diabetes consult about how to transition him back to his pump
Denies chest pain, dyspnea, fevers or chills, abdomen pain, other GI issues, urinary issues, pain or bruising, new paresthesia or weakness
Objective Data
-
Labs:
Laboratory Results
08/19/24 08/19/24
00:24 03:46
WBC 5.7
Hgb 9.0 L
Hct 28.4 L
Plt Count 271
Sodium 136 139
Potassium 4.7 4.9
Chloride 98 99
Carbon Dioxide 28 28
BUN 33 H 33 H
Creatinine 4.0 H 4.3 H*
Glucose 116 H 138 H
Calcium 8.4 8.6
Vital Signs:
Vital Signs
Temp Pulse Resp BP Pulse Ox
97.7 F 77 8 170/96 95
08/19/24 08:13 08/19/24 09:00 08/19/24 09:00 08/19/24 09:00 08/19/24 09:32
I&O
08/18/24 08/19/24 08/20/24
06:59 06:59 06:59
Intake Total 92 / 92.5 488.0 / 488.5 1.0 / 1.0
Output Total 0 / 0
Balance 92 / 92.5 488.0 / 488.5 1.0 / 1.0
Review of Systems
-
History Source: Patient
All other systems: Reviewed and negative
Physical Exam
-
General: No Apparent Distress, Comfortable and Other (Thin young male)
HEENT: Normocephalic, Atraumatic and Moist Mucous Membranes
Respiratory: Non Labored Respirations and Decreased Breath Sounds (Right base); Negative Wheezes, Rales or Rhonchi
Cardiac: Regular Rhythm and S1/S2; Negative Murmur, Rub or Gallop
GI: Soft, Nontender, Nondistended and Normal Bowel Sounds
Musculoskeletal: No Clubbing, No Cyanosis and No Edema
Skin: Warm and Dry; Negative Rash
Neuro: AO x 3, Nonfocal/Grossly Intact and Central Nerve's Intact
Psych: Calm and Other (Flat affect)
Data Reviewed
-
Labs: Labs Reviewed by me and Discussed with Patient
[2024-08-19 10:21] LABS: Glucose - Point of Care 91 mg/dl (70-99)
--- NOTE | 2024-08-19 10:44 | PN.DE.MGMTRT ---
Insulin Management
- -
08/19/2024: Diabetes Management Consult Follow up
Patient admitted with N/V over 2 days, glucose 400s, BHB 7.2, pH 7.23, severe DKA, GAP 31.
Pt is well known to Diabetes team from recurrent hospitalizations due to DKA, last hospital admission: 07/03/24 - 07/04/24.
PMH: ETOH use disorder, recurrent DKA, ESRD on HD (MWF), T1DM for 18 years. Uses Medtronic 770 pump with NovoLog insulin and Guardian sensor.
Last A1C 7.4% on 06/11/24. Cr 6.6-->3.5, eGFR 22.67
Patient resting in bed in ICU, awake alert and oriented, able to discuss diabetes mgt.
States his mother will bring insulin pump supplies, sensor and insulin this afternoon after 4:30.
DKA protocol insulin has been stopped, per pharmacy, glucose 104. GAP is 12. Nurse is monitoring glucose, will resume insulin infusion as needed per pharmacy. If insulin pump and supplies are brought in later today patient may resume pump at
basal rates then insulin infusion off 1 hour later. Patient may resume diet after pump is started and bolus per pump.
Discussed with patient and nurse.
Diabetes History
- -
Type of Diabetes: 1
Pre-Admission Diabetes Regimen
08/18/24 08/18/24 08/18/24
12:15 15:19 20:57
Creatinine 3.0 H 3.5 H 3.9 H
08/19/24 08/19/24
00:24 03:46
Creatinine 4.0 H 4.3 H*
Insulin Pump Settings
IP Diabetes Regimen
08/18/24 08/18/24 08/18/24
12:01 12:15 14:24
Glucose 167 H
POC Glucose 150 H 207 H
08/18/24 08/18/24 08/18/24
15:19 16:26 17:23
Glucose 234 H
POC Glucose 237 H 212 H
08/18/24 08/18/24 08/18/24
18:24 19:27 20:27
Glucose
POC Glucose 186 H 153 H 110 H
08/18/24 08/18/24 08/18/24
20:57 21:33 22:23
Glucose 116 H
POC Glucose 109 H 129 H
08/18/24 08/19/24 08/19/24
23:29 00:24 00:26
Glucose 116 H
POC Glucose 111 H 112 H
08/19/24 08/19/24 08/19/24
01:48 03:16 03:46
Glucose 138 H
POC Glucose 115 H 129 H
08/19/24 08/19/24 08/19/24
04:49 06:31 07:32
Glucose
POC Glucose 112 H 124 H 123 H
08/19/24 08/19/24
08:30 10:04
Glucose
POC Glucose 104 H 91
Patient Education
[2024-08-19 11:22] LABS: Glucose - Point of Care 139 mg/dl (70-99)
[2024-08-19 12:32] LABS: Glucose - Point of Care 144 mg/dl (70-99)
[2024-08-19 13:33] LABS: Glucose - Point of Care 126 mg/dl (70-99)
--- NOTE | 2024-08-19 13:47 | CM ---
CM following re: discharge planning.
Discussed in Rounds, reviewed pt's chart, met with pt. Pt asked to talk to his mother regarding [facility] outpatient dialysis center issues.
CM spoke to pt's mother Cherise and she stated that her son went to inpatient D&A rehab in July of this year in [facility] and per mother her son became more compliant with care. pt's mother stated that [facility] discharged him and per
Mother, [facility] staff placed the pt to [facility] in [place]. Pt's mother brought her very anxious feelings regarding this transition from [facility] to [facility] and pt's mother asked to make sure all transitioning process completed and pt will have
a place for outpatient HD treatment
[phone] spoke to installation service representative Karen and she stated that pt is discharged for transitioning to [facility]. Per [facility] installation service representative Karen she cannot confirm anything and stated that [facility]
lotus notes administrator and [facility] SURESH Khan are in the meeting and CM left a message to [facility] lotus notes administrator to confirm .
CM spoke to [facility] liadank Dietz and he stated he has no information regarding any transition.
CM will continue to make efforts [facility] and [facility] liaison J Luis regarding pt's transition from [facility] to [facility].
D/C beasley: home with family and outpatient HD treatment at [facility] or [facility].
CM will follow to assist pt with a safe discharge plan and will coordinate between [facility] and [facility].
[2024-08-19 14:32] LABS: Glucose - Point of Care 108 mg/dl (70-99)
[2024-08-19 15:48] LABS: Glucose - Point of Care 117 mg/dl (70-99)
[2024-08-19 16:43] LABS: Glucose - Point of Care 149 mg/dl (70-99)
[2024-08-19] MEDS: RENVELA 800 MG PO (17:15)
[2024-08-19 17:49] LABS: Glucose - Point of Care 163 mg/dl (70-99)
[2024-08-19 18:21] LABS: Glucose - Point of Care 206 mg/dl (70-99)
--- NOTE | 2024-08-19 18:36 | PTCARENOTE ---
Pt applied home insulin pump, settings are 0.5U/hr (bolus) novolog with 1U per 10g of carbs. Reached out to MD Chiu for floor Accu check orders and pt specific insulin pump orders. Pt has personal insulin log at bedside and is educated on how to
use the log and his own insulin dosing.
[2024-08-19] MEDS: BENADRYL 25 MG IV (20:33)
[2024-08-19] MEDS: COMPAZINE 5 MG IV (20:34)
[2024-08-19 22:03] LABS: Glucose - Point of Care 186 mg/dl (70-99)
[2024-08-19] MEDS: PT'S OWN INSULIN PUMP - NovoLOG SC (22:50)
[2024-08-20] MEDS: REGLAN 5 MG IV ×2 (04:29→16:30)
[2024-08-20 06:00] VITALS: BMI 18.8
[2024-08-20] MEDS: HEPARIN 500 UNITS IV ×2 (07:40→08:40)
--- NOTE | 2024-08-20 07:47 | PN.DE.MGMTRT ---
Insulin Management
- -
08/20/2024: Diabetes Management F/U:
Patient admitted with N/V over 2 days, glucose 400s, BHB 7.2, pH 7.23, severe DKA, GAP 31.
Pt is well known to Diabetes team from recurrent hospitalizations due to DKA, last hospital admission: 07/03/24 - 07/04/24.
PMH: ETOH use disorder, recurrent DKA, ESRD on HD (MWF), T1DM for 18 years. Uses Medtronic 770 pump with NovoLog insulin and Guardian sensor.
Last A1C 7.4% on 06/11/24. Cr 6.6-->3.5, eGFR 22.67
Patient awake, alert and oriented, sitting up at edge of bed, able to discuss diabetes mgt.
Pt was transitioned back to his insulin pump last evening, noted for hypoglycemia of 67(V) this AM. States his CGM reading was 92 at the time.
Overall POC glucose range is 91 to 163. Pt doing well, tolerating diet and adm boluses at meals appropriately.
Will make no changes to current insulin pump settings.
Discussed with patient and nurse.
Diabetes History
- -
Type of Diabetes: 1
Pre-Admission Diabetes Regimen
Insulin Pump Settings
IP Diabetes Regimen
08/19/24 08/19/24 08/19/24
08:30 10:04 11:11
POC Glucose 104 H 91 139 H
08/19/24 08/19/24 08/19/24
12:21 13:22 14:21
POC Glucose 144 H 126 H 108 H
08/19/24 08/19/24 08/19/24
15:37 16:32 17:38
POC Glucose 117 H 149 H 163 H
08/19/24 08/19/24
18:09 22:01
POC Glucose 206 H 186 H
Patient Education
[2024-08-20 07:51] LABS: Glucose - Point of Care 82 mg/dl (70-99)
[2024-08-20 07:58] VITALS: BP 159/92
[2024-08-20 08:11] LABS: % Basophils 1.1 % (0-2); % Eosinophils 4.3 % (0-6); % Immature Granulocytes 0.2 % (0-0.5); % Lymphocytes 24.3 % (20.5-51.1); % Monocytes 12.5 % (1.7-9.3); % Neutrophils 57.6 % (42.2-75.2); Absolute Basophils 0.1 10^3/uL (0-0.2); Absolute Eosinophils 0.2 10^3/uL (0-0.7); Absolute Lymphocytes 1.1 10^3/uL (1.2-3.4); Absolute Monocytes 0.6 10^3/uL (0.1-0.6); Absolute Neutrophils 2.5 10^3/uL (1.4-6.5); Hematocrit 26.1 % (39.0-52.0); Hemoglobin 8.5 g/dL (13.0-18.0); Mean Corp Hgb Conc. 32.6 g/dL (33.0-37.0); Mean Corpuscular Hgb 28.5 pg (27.0-31.0); Mean Corpuscular Volume 87.6 fL (80.0-94.0); Mean Platelet Volume 8.9 fL (7.4-10.4); Nucleated Red Blood Cells % 0 % (-); Platelet Count 273 10^3/uL (130-400); Red Blood Cell Count 2.98 10^6/uL (4.70-6.10); Red Cell Dist. Width 16.3 % (11.5-14.5); White Blood Cell Count 4.4 10^3/uL (4.8-10.8)
[2024-08-20] MEDS: RETACRIT 6000 UNITS IV (08:39)
[2024-08-20] MEDS: PROTONIX 40 MG PO ×2 (08:39→21:07)
[2024-08-20] MEDS: SUBUTEX 4 MG SL ×2 (08:40→21:06)
[2024-08-20] MEDS: TOPAMAX 25 MG PO ×3 (08:41→21:14)
[2024-08-20] MEDS: ZOLOFT 50 MG PO (08:41)
[2024-08-20] MEDS: BENADRYL 25 MG IV ×3 (08:41→22:48)
[2024-08-20 08:44] LABS: Blood Urea Nitrogen 45 mg/dl (9-20); Calcium 8.4 mg/dl (8.4-10.2); Carbon Dioxide 25 mmol/L (22-30); Chloride 98 mmol/L (98-107); Estimated Creatinine Clearance 15 ml/min; Glucose 67 mg/dl (70-99); Potassium 4.8 mmol/L (3.5-5.1); Sodium 137 mmol/L (135-145); eGFR 13.47
[2024-08-20] MEDS: PT'S OWN INSULIN PUMP - NovoLOG SC ×4 (08:48→21:12)
--- NOTE | 2024-08-20 09:14 | CM ---
Addendum entered by Karen Moreau 08/20/24 15:55:
referral call to [facility]; and fax sent to . Await update response.
Addendum entered by Karen Moreau 08/20/24 15:38:
Karen Phillip called back from [facility] to say that they would not be able to accept patient back. CM will start application with [employer].
Addendum entered by Karen Moreau 08/20/24 15:01:
CM called to Karen Director at [facility] [phone], Karen is still waiting for response from medical grade shoemaker, but agreed to leave with response.
Addendum entered by Karen Moreau 08/20/24 14:36:
Patient mother indicated that she has set up patient at [facility] in [place], day program/ appointment. Patient mother called to [facility] and Yesi started intake, referral was stopped when no clinical information was sent and now needs to
be restarted. Patient mother agreed to bring discharge paperwork from to unit to be scanned in. CM will call Karen at [facility] and confirm patient status. IF they are unable to accept will need to call and start application at [facility]. CM
will continue to follow for discharge planning needs.
Addendum entered by Karen Moreau 08/20/24 10:11:
Patient seen at bedside on HD. Patient states he is on Suboxone 4mg 2x daily. Patient indicated that he had been at the rehab in [place] for 2 days prior to going to [facility]. Patient states that he was detoxed there and that he was discharged to
home. Patient unable to confirm HD arrangements for care at discharge from hospital and stated that he did not currently have a preference for a provider of HD. Patient stated his mother was making arrangements for outpatient care and that he did
not know what arrangements were made. Mother to visit after 4:30pm and CM to call her. Patient stated that he had a chair M/W/F @11:30am at [facility] but lost that chair and was changed to T//Sat 6am at [facility] before losing that
chair also. Patient stated the treatment facility in [place] was through [facility] and he did not want to work with them again. CM clarified that [facility] would be able to assist with outpatient treatment options in area, patient agreed to talk to [facility].
Original Note:
Conversation with Karen the director of [facility]. Patient was denied readmission to [facility] due to medical grade shoemaker denial. Patient was at [facility] and never went to the drug and alcohol rehab as scheduled by patient family and
[facility]. Patient never went to the [facility] location in [place]. Per Karen Patient was picked up by mother and taken home to [place] without plan for HD and per Karen it is unclear if patient is on Methadone or Suboxone. Prior to discharge from [facility]
patient was only attending HD 2 x month and was requesting shortened treatments when he was there per [employer] C[employer] Attendant. CM requested patient and [facility] staff have conversation about possible options to resume treatment. Patient would need new referral
for HD with [facility] or [facility] to be reaccepted. Per assisted living administrator patient may need to accept a behavioral contract to be reaccepted but she would discuss with Lap Welder and call CM back. CM updated Hospitalist re above. CM will continue to
follow for discharge planning needs.
Plan; TBD; needing HD unit
--- NOTE | 2024-08-20 09:34 | W.PN.NEPH.HD ---
Assessment
-
Patient seen on dialysis
Systolic blood pressure 166 at current UF
Access with good function
Progress Note - Hemodialysis
-
Date of Service: August 20, 2024
Duration: 30 minutes and 3 hours
Potassium Bath: 2
Calcium Bath: 2.5
Opti-Dialyzer: 160
Ultrafiltration: Other (2 kg)
Blood Flow: 400
Dialysate Flow: 600
Heparin: 500 x 2
EPO: 6000
[2024-08-20] MEDS: COMPAZINE 10 MG IV (10:21)
[2024-08-20 11:49] LABS: Glucose - Point of Care 102 mg/dl (70-99)
--- NOTE | 2024-08-20 11:51 | W.PN.HOSP.TC ---
Addendum entered and electronically signed by Renato Chiu DO 08/20/24 14:45:
CDI clarification: Chronic HFpEF/RV failure, has been euvolemic here with dialysis sessions
Original Note:
Today's Communication/Plan
-
Search high and low for open HD chairs
Assessment / Plan
Assessment / Plan
#DKA
#T1DM
-Presented with nausea and vomiting over 2 days, glucose 400s, BHB 7.2, pH 7.23
-Home regimen includes insulin via insulin pump as well as insulin aspart 5 units 3 times daily
-He has noted to have noncompliance with his regimen including insulin pump
-Labs are improving on IV insulin drip; symptomatically improved
-Diabetic consult and ICU following; anion gap closed x 2 on IV insulin
-Back on NovoLog 70/30 insulin pump with home settings in place
#Recurrent right-sided loculated pleural effusion
-On x-ray he does have a moderate appearing right pleural effusion with loculation, improved from last study
-Has previously had thoracentesis; Fluid studies do seem transudative, likely from pulmonary edema/CHF
-Will continue to monitor for symptoms and consider repeat thoracentesis here
#ESRD on HD M/W/F
-Likely secondary to diabetic nephropathy that also has significant hypertensive is
-C/B chronic anemia as well as bone mineral disease; no chronic acidemia
-Home medications include Nepro, sevelamer; on EPO replacement for anemia
-Resumed on hemodialysis session today with nephrology
#Paroxysmal AF
-Home medications include carvedilol and Eliquis twice daily
-No known history of electrophysiologic interventions
-Heart rate currently sinus and WNL
#HFpEF/RV failure
#Pulmonary hypertension
-Last echo with normal LV function/structure; did show dilated RV with reduced systolic
-Not currently on GDMT likely due to his ESRD/noncompliance
-Home medications include beta-ida, ARB; no diuretic due to ESRD
-Seems euvolemic at this time
#Hypertension
-No known hypertensive systemic disease no cannot rule out rule in ESRD
-Home medications include carvedilol, irbesartan; HD for volume status
-Blood pressure currently adequate
#H/O PE
#H/O splenic infarct
-Unclear etiology, no known underlying hypercoagulable state
-He is currently on Eliquis as above; unclear if he had hypercoagulable workup
-Should follow-up with PCP/nnp after discharge for factor V Leiden, protein C/S mutation, antiphospholipid antibody
#H/O cardiac arrest
-Unclear etiology, may be related to previous PE versus substance abuse
-No known family history of sudden cardiac
#Polysubstance abuse
-Encourage cessation
-Should pursue rehab after discharge
DVT prophylaxis: Eliquis
Diet: NPO now, Carbohydrate controlled planned
CODE STATUS: Full code
Patient is now medically stable for discharge however he does not have hemodialysis chair. Ongoing process to have placement with HD chair. Once this is established he will be discharged.
Anticipated Discharge: > 48 hours
Subjective/Interval History
-
Date of Service: August 20, 2024
Seen and examined at the bedside. No acute events reported overnight. AFVSS this morning.
Spoke with case management who mentions that the patient does not have a dialysis chair currently. Previously lived in [place] and went to [facility] for dialysis, was discharged as a patient. He came up to [facility] to live with his
mother who is a social work professor. May need behavioral agreement in place for acceptance to hemodialysis chair due to previous discharge
Denies any acute complaints this morning
Objective Data
-
Labs:
Laboratory Results
08/20/24
07:55
WBC 4.4 L
Hgb 8.5 L
Hct 26.1 L
Plt Count 273
Sodium 137
Potassium 4.8
Chloride 98
Carbon Dioxide 25
BUN 45 H
Creatinine 5.4 H*
Glucose 67 L
Calcium 8.4
Vital Signs:
Vital Signs
Temp Pulse Resp BP Pulse Ox
97.9 F 78 16 159/92 99
08/20/24 07:58 08/20/24 07:58 08/20/24 07:58 08/20/24 07:58 08/20/24 07:58
I&O
08/19/24 08/20/24 08/21/24
06:59 06:59 06:59
Intake Total 488.0 / 488.5 962.0 / 962.0
Output Total 0 / 0
Balance 488.0 / 488.5 962.0 / 962.0
Review of Systems
-
History Source: Patient
All other systems: Reviewed and negative
Physical Exam
-
General: Well Nourished and No Apparent Distress
HEENT: Normocephalic, Atraumatic and Moist Mucous Membranes
Respiratory: Clear to Auscultation and Non Labored Respirations
Cardiac: Regular Rhythm and S1/S2; Negative Murmur, Rub or Gallop
GI: Soft, Nontender, Nondistended and Normal Bowel Sounds
Musculoskeletal: No Clubbing, No Cyanosis and No Edema
Skin: Warm and Dry; Negative Rash
Neuro: AO x 3, Nonfocal/Grossly Intact and Central Nerve's Intact
Psych: Calm
Data Reviewed
-
Labs: Labs Reviewed by me and Discussed with Patient
[2024-08-20] MEDS: AVAPRO 150 MG PO (12:28)
[2024-08-20] MEDS: NEPHROCAP 1 CAPSULE PO (12:29)
[2024-08-20] MEDS: ELIQUIS 5 MG PO ×2 (12:29→21:07)
[2024-08-20] MEDS: COREG 6.25 MG PO ×2 (12:29→21:07)
[2024-08-20] MEDS: VITAMIN B1 100 MG PO (12:29)
[2024-08-20] MEDS: RENVELA 800 MG PO ×3 (12:29→16:32)
--- NOTE | 2024-08-20 13:17 | PN.CDI ---
CDI
- -
CDI:
Physician Documentation Request
Admit Date: 08/17/24 20:45
Dear Doctor Aram,
Patient admitted with DKA.
08/19 Hospitalist PN: 'HFpEF/RV failure'
Clarify which of the following accurately represents the acuity of the HFpEF. Possible options might include:
____ Chronic
Acute on Chronic
____ Other
Use of terms such as suspected, likely, concern for, or probable (associated with a specific diagnosis that is being evaluated, monitored, or treated as if it exists) are acceptable and can be coded in the inpatient setting, when documented at the
time of discharge.
Thank you,
Annette Geller RN, BSN
CDI Specialist
Available via [employer] text
Please use your independent medical judgment in providing your response.
[2024-08-20 14:14] LABS: Glucose - Point of Care 92 mg/dl (70-99)
[2024-08-20 15:36] VITALS: BP 160/87
[2024-08-20 20:53] LABS: Glucose - Point of Care 114 mg/dl (70-99)
[2024-08-20 21:16] VITALS: BP 163/85
[2024-08-20 23:30] VITALS: BP 146/88
[2024-08-21 02:41] LABS: Glucose - Point of Care 69 mg/dl (70-99)
[2024-08-21] MEDS: BENADRYL 25 MG IV ×4 (05:16→20:59)
[2024-08-21 05:20] LABS: Blood Urea Nitrogen 18 mg/dl (9-20); Calcium 7.6 mg/dl (8.4-10.2); Carbon Dioxide 29 mmol/L (22-30); Chloride 99 mmol/L (98-107); Estimated Creatinine Clearance 29 ml/min; Glucose 61 mg/dl (70-99); Potassium 3.7 mmol/L (3.5-5.1); Sodium 134 mmol/L (135-145)
[2024-08-21 06:00] VITALS: BMI 18.8
[2024-08-21] MEDS: REGLAN 5 MG IV ×2 (06:16→17:21)
[2024-08-21 07:59] VITALS: BP 171/92
[2024-08-21 08:16] LABS: Glucose - Point of Care 143 mg/dl (70-99)
[2024-08-21] MEDS: NEPHROCAP 1 CAPSULE PO (09:08)
[2024-08-21] MEDS: ELIQUIS 5 MG PO ×2 (09:08→20:59)
[2024-08-21] MEDS: AVAPRO 150 MG PO (09:08)
[2024-08-21] MEDS: PROTONIX 40 MG PO ×2 (09:08→21:00)
[2024-08-21] MEDS: VITAMIN B1 100 MG PO (09:08)
[2024-08-21] MEDS: COREG 6.25 MG PO ×2 (09:09→20:52)
[2024-08-21] MEDS: TOPAMAX 25 MG PO ×3 (09:09→20:59)
[2024-08-21] MEDS: SUBUTEX 4 MG SL ×2 (09:09→21:00)
[2024-08-21] MEDS: RENVELA 800 MG PO ×3 (09:09→17:20)
[2024-08-21] MEDS: ZOLOFT 50 MG PO (09:10)
[2024-08-21] MEDS: PT'S OWN INSULIN PUMP - NovoLOG 5 UNIT SC (09:11)
--- NOTE | 2024-08-21 11:42 | W.PN.HOSP.TC ---
Today's Communication/Plan
-
Search for outpatient HD chair
Daily BMP for dialysis planning
Assessment / Plan
Assessment / Plan
#DKA
#T1DM
-Presented with nausea and vomiting over 2 days, glucose 400s, BHB 7.2, pH 7.23
-Home regimen includes insulin via insulin pump as well as insulin aspart 5 units 3 times daily
-He has noted to have noncompliance with his regimen including insulin pump
-Labs are improving on IV insulin drip; symptomatically improved
-Diabetic consult and ICU following; anion gap closed x 2 on IV insulin
-Back on NovoLog 70/30 insulin pump with home settings in place
#Recurrent right-sided loculated pleural effusion
-On x-ray he does have a moderate appearing right pleural effusion with loculation, improved from last study
-Has previously had thoracentesis; Fluid studies do seem transudative, likely from pulmonary edema/CHF
-Will continue to monitor for symptoms and consider repeat thoracentesis here
#ESRD on HD M/W/F
-Likely secondary to diabetic nephropathy that also has significant hypertensive is
-C/B chronic anemia as well as bone mineral disease; no chronic acidemia
-Home medications include Nepro, sevelamer; on EPO replacement for anemia
-Resumed on hemodialysis session today with nephrology
#Paroxysmal AF
-Home medications include carvedilol and Eliquis twice daily
-No known history of electrophysiologic interventions
-Heart rate currently sinus and WNL
#HFpEF/RV failure
#Pulmonary hypertension
-Last echo with normal LV function/structure; did show dilated RV with reduced systolic
-Not currently on GDMT likely due to his ESRD/noncompliance
-Home medications include beta-ida, ARB; no diuretic due to ESRD
-Seems euvolemic at this time
#Hypertension
-No known hypertensive systemic disease no cannot rule out rule in ESRD
-Home medications include carvedilol, irbesartan; HD for volume status
-Blood pressure currently adequate
#H/O PE
#H/O splenic infarct
-Unclear etiology, no known underlying hypercoagulable state
-He is currently on Eliquis as above; unclear if he had hypercoagulable workup
-Should follow-up with PCP/software validation engineer after discharge for factor V Leiden, protein C/S mutation, antiphospholipid antibody
#H/O cardiac arrest
-Unclear etiology, may be related to previous PE versus substance abuse
-No known family history of sudden cardiac
#Polysubstance abuse
-Encourage cessation
-Should pursue rehab after discharge
DVT prophylaxis: Eliquis
Diet: NPO now, Carbohydrate controlled planned
CODE STATUS: Full code
Patient is now medically stable for discharge however he does not have hemodialysis chair. Ongoing process to have placement with HD chair. Once this is established he will be discharged.
Anticipated Discharge: > 48 hours
Subjective/Interval History
-
Date of Service: August 21, 2024
Seen and examined at the bedside. No acute events reported overnight. AFVSS this morning.
Pending placement for outpatient HD chair. Otherwise medically stable, remains on home insulin pump regimen following DKA
Denies any acute complaints today including shortness of breath, chest pain, fevers or chills, pain, GI issues, bleeding or bruising, paresthesias or weakness
Objective Data
-
Labs:
Laboratory Results
08/21/24
04:34
Sodium 134 L
Potassium 3.7
Chloride 99
Carbon Dioxide 29
BUN 18
Creatinine 2.9 H
Glucose 61 L
Calcium 7.6 L
Vital Signs:
Vital Signs
Temp Pulse Resp BP Pulse Ox
98.4 F 95 16 171/92 95
08/21/24 07:59 08/21/24 07:59 08/21/24 07:59 08/21/24 07:59 08/21/24 07:59
I&O
08/20/24 08/21/24 08/22/24
06:59 06:59 06:59
Intake Total 962.0 / 962.0 480 / 480
Balance 962.0 / 962.0 480 / 480
Review of Systems
-
History Source: Patient
All other systems: Reviewed and negative
Physical Exam
-
General: No Apparent Distress, Comfortable and Other (Thin young male)
HEENT: Normocephalic, Atraumatic and Moist Mucous Membranes
Respiratory: Clear to Auscultation and Non Labored Respirations; Negative Wheezes, Rales, Rhonchi or Accessory Resp Muscle Use
Cardiac: Regular Rhythm, S1/S2 and Other (Hyperdynamic); Negative Murmur, Rub or Gallop
GI: Soft, Nontender, Nondistended and Normal Bowel Sounds
Musculoskeletal: No Clubbing, No Cyanosis, No Edema and Normal Gait & Station
Skin: Warm and Dry; Negative Rash
Neuro: AO x 3, Nonfocal/Grossly Intact and Central Nerve's Intact
Psych: Calm and Other (Flat affect)
Data Reviewed
-
Labs: Labs Reviewed by me and Discussed with Patient
[2024-08-21 12:03] LABS: Glucose - Point of Care 50 mg/dl (70-99)
[2024-08-21 12:24] LABS: Glucose - Point of Care 44 mg/dl (70-99)
[2024-08-21] MEDS: DEXTROSE 50% SYRINGE 12.5 GRAMS IV (12:27)
[2024-08-21] MEDS: PT'S OWN INSULIN PUMP - NovoLOG SC ×2 (12:35→22:22)
[2024-08-21 12:43] LABS: Glucose - Point of Care 107 mg/dl (70-99)
[2024-08-21 15:33] VITALS: BP 141/73
[2024-08-21] MEDS: PT'S OWN INSULIN PUMP - NovoLOG 4.5 UNIT SC (17:20)
[2024-08-21 18:07] LABS: Glucose - Point of Care 211 mg/dl (70-99)
[2024-08-21 21:10] LABS: Glucose - Point of Care 147 mg/dl (70-99)
[2024-08-21 21:42] LABS: Glucose - Point of Care 161 mg/dl (70-99)
[2024-08-21 23:19] VITALS: BP 155/93
[2024-08-21 23:45] VITALS: BMI 18.8
[2024-08-22] MEDS: BENADRYL 25 MG IV ×4 (02:33→20:21)
[2024-08-22] MEDS: REGLAN 5 MG IV ×3 (02:33→21:47)
[2024-08-22 03:19] LABS: Glucose - Point of Care 113 mg/dl (70-99)
[2024-08-22 06:00] VITALS: BMI 19.8
[2024-08-22 06:55] LABS: Blood Urea Nitrogen 34 mg/dl (9-20); Calcium 8.2 mg/dl (8.4-10.2); Carbon Dioxide 27 mmol/L (22-30); Chloride 90 mmol/L (98-107); Estimated Creatinine Clearance 23 ml/min; Glucose 134 mg/dl (70-99); Potassium 5.7 mmol/L (3.5-5.1); Sodium 128 mmol/L (135-145)
[2024-08-22 07:00] VITALS: BP 169/115
[2024-08-22 08:30] VITALS: BMI 19.8
[2024-08-22 09:11] LABS: Glucose - Point of Care 172 mg/dl (70-99)
[2024-08-22] MEDS: PT'S OWN INSULIN PUMP - NovoLOG SC ×2 (09:46→14:50)
[2024-08-22] MEDS: RENVELA 800 MG PO ×2 (09:48→12:28)
[2024-08-22] MEDS: AVAPRO 150 MG PO (09:48)
[2024-08-22] MEDS: NEPHROCAP 1 CAPSULE PO (09:48)
[2024-08-22] MEDS: ELIQUIS 5 MG PO ×2 (09:48→20:42)
[2024-08-22] MEDS: SUBUTEX 4 MG SL ×2 (09:48→20:42)
[2024-08-22] MEDS: PROTONIX 40 MG PO ×2 (09:49→20:43)
[2024-08-22] MEDS: ZOLOFT 50 MG PO (09:49)
[2024-08-22] MEDS: COREG 6.25 MG PO ×2 (09:49→20:42)
[2024-08-22] MEDS: TOPAMAX 25 MG PO ×3 (09:49→21:47)
--- NOTE | 2024-08-22 10:10 | W.PN.HOSP.TC ---
Today's Communication/Plan
-
Repeat BMP at 1 PM, consider temporizing potassium
Searching for HD chair
HD as scheduled tomorrow
Assessment / Plan
Assessment / Plan
#Hyperkalemia
-Potassium this morning 5.7, in the context of end-stage renal disease
-Switch diet to low potassium, ordered repeat BMP for 1 PM
-Will consider temporizing with insulin/IV calcium/dextrose
-Consider Lokelma if potassium continues to rise significantly
-Trend daily BMP
#DKA
#T1DM
-Presented with nausea and vomiting over 2 days, glucose 400s, BHB 7.2, pH 7.23
-Home regimen includes insulin via insulin pump as well as insulin aspart 5 units 3 times daily
-He has noted to have noncompliance with his regimen including insulin pump
-Labs are improving on IV insulin drip; symptomatically improved
-Diabetic consult and ICU following; anion gap closed x 2 on IV insulin
-Back on NovoLog 70/30 insulin pump with home settings in place
#Recurrent right-sided loculated pleural effusion
-On x-ray he does have a moderate appearing right pleural effusion with loculation, improved from last study
-Has previously had thoracentesis; Fluid studies do seem transudative, likely from pulmonary edema/CHF
-Will continue to monitor for symptoms and consider repeat thoracentesis here
#ESRD on HD M/W/F
-Likely secondary to diabetic nephropathy that also has significant hypertensive is
-C/B chronic anemia as well as bone mineral disease; no chronic acidemia
-Home medications include Nepro, sevelamer; on EPO replacement for anemia
-Resumed on hemodialysis session today with nephrology
#Paroxysmal AF
-Home medications include carvedilol and Eliquis twice daily
-No known history of electrophysiologic interventions
-Heart rate currently sinus and WNL
#Chronic HFpEF/RV failure
#Pulmonary hypertension
-Last echo with normal LV function/structure; did show dilated RV with reduced systolic
-Not currently on GDMT likely due to his ESRD/noncompliance
-Home medications include beta-ida, ARB; no diuretic due to ESRD
-Seems euvolemic at this time
#Hypertension
-No known hypertensive systemic disease no cannot rule out rule in ESRD
-Home medications include carvedilol, irbesartan; HD for volume status
-Blood pressure currently adequate
#H/O PE
#H/O splenic infarct
-Unclear etiology, no known underlying hypercoagulable state
-He is currently on Eliquis as above; unclear if he had hypercoagulable workup
-Should follow-up with PCP/vocational ed instructor after discharge for factor V Leiden, protein C/S mutation, antiphospholipid antibody
#H/O cardiac arrest
-Unclear etiology, may be related to previous PE versus substance abuse
-No known family history of sudden cardiac
#Polysubstance abuse
-Encourage cessation
-Should pursue rehab after discharge
DVT prophylaxis: Eliquis
Diet: Carb controlled, low-sodium, low-potassium
CODE STATUS: Full code
Anticipated Discharge: > 48 hours
Subjective/Interval History
-
Date of Service: August 22, 2024
Seen and examined at the bedside. No acute events reported overnight. AFVSS this morning.
Labs this morning with potassium 5.7. Switch diet to low K. Repeat BMP in 1 PM, consider temporization
Denies any acute complaints including chest pain, dyspnea, fevers or chills, GI upset, bleeding or bruising, paresthesias or weakness
Objective Data
-
Labs:
Laboratory Results
08/22/24 08/22/24
05:51 13:00
Sodium 128 L Pending
Potassium 5.7 H D Pending
Chloride 90 L Pending
Carbon Dioxide 27 Pending
BUN 34 H Pending
Creatinine 3.9 H Pending
Glucose 134 H Pending
Calcium 8.2 L Pending
Vital Signs:
Vital Signs
Temp Pulse Resp BP Pulse Ox
98.3 F 66 18 169/115 99
08/22/24 07:00 08/22/24 07:00 08/22/24 07:00 08/22/24 07:00 08/22/24 07:00
I&O
08/21/24 08/22/24 08/23/24
06:59 06:59 06:59
Intake Total 480 / 480 1170 / 1170
Balance 480 / 480 1170 / 1170
Review of Systems
-
History Source: Patient
All other systems: Reviewed and negative
Physical Exam
-
General: No Apparent Distress, Comfortable and Other (Thin habitus)
HEENT: Normocephalic, Atraumatic and Moist Mucous Membranes
Respiratory: Clear to Auscultation and Non Labored Respirations; Negative Wheezes, Rales or Rhonchi
Cardiac: Regular Rhythm, S1/S2 and Other (Flow bruit at RSB from vascular access); Negative Murmur, Rub or Gallop
GI: Soft, Nontender, Nondistended and Normal Bowel Sounds
Musculoskeletal: No Clubbing, No Cyanosis and No Edema
Skin: Warm, Dry and Normal Turgor; Negative Rash
Neuro: AO x 3, Nonfocal/Grossly Intact and Central Nerve's Intact
Psych: Calm
Data Reviewed
-
Labs: Labs Reviewed by me and Discussed with Patient
[2024-08-22 12:10] VITALS: BP 155/120
[2024-08-22] MEDS: VITAMIN B1 100 MG PO (12:28)
[2024-08-22 12:40] LABS: Glucose - Point of Care 223 mg/dl (70-99)
--- NOTE | 2024-08-22 12:54 | W.PN.NEPH.PH ---
Today's Communication / Plan
-
HD tomorrow
Assessment/Plan
-
Impression:
ESRD TTS most recently
Status post PEA/Asystole 03/13/24
PAF : briefly after code on 03/13/24
Chronic noncompliance with dialysis
left UE AVF
DKA
Hyperkalemia
Hyponatremia
Chronic Abdominal Pain / Gastroparesis
Pulmonary hypertension
Polysubstance abuse
Anxiety
History of biliary drain
Anemia
Right pleural effusion--s/p R thoracentesis for pleural effusion with 1.8L transudate 02/17/24
History of pericardial effusion requiring pericardial drain
Plan:
HD tomorrow,orders provided
he says that he lost his chair at his old unit and they will not take him back.
will need arrangements at another HD unit
reduce edw for htn control
escalate PETE for anemia
-
-
Date of Service: August 22, 2024
CC / HPI / ROS
-
Chief Complaint:
ESRD
History of Present Illness:
tolerated HD yesterday
BP elevated
anemia on PETE
Review of Systems:
no CP/SOB
Labs
-
Labs:
WBC 4.4 10^3/uL (4.8-10.8) L 08/20/24 07:55
RBC 2.98 10^6/uL (4.70-6.10) L 08/20/24 07:55
Hgb 8.5 g/dL (13.0-18.0) L 08/20/24 07:55
Hct 26.1 % (39.0-52.0) L 08/20/24 07:55
Plt Count 273 10^3/uL (130-400) 08/20/24 07:55
eGFR 19.90 10/20/24 05:51
Albumin 4.1 g/dl (3.5-5.0) 08/17/24 19:11
Physical Exam
-
Vital Signs:
Vital Signs
Temp Pulse Resp BP Pulse Ox
98.3 F 66 18 155/120 99
08/22/24 07:00 08/22/24 07:00 08/22/24 07:00 08/22/24 12:10 08/22/24 07:00
Cardiovascular:: Regular rate and rhythm
Respiratory:: Bilateral: Coarse
Lung Excursion:: Normal
Abdomen:: Nontender and Soft
Bowel Sounds:: Normal
Extremity Edema:: None: Bilateral:
[2024-08-22 14:24] LABS: Blood Urea Nitrogen 40 mg/dl (9-20); Calcium 8.6 mg/dl (8.4-10.2); Carbon Dioxide 24 mmol/L (22-30); Chloride 87 mmol/L (98-107); Estimated Creatinine Clearance 20 ml/min; Glucose 230 mg/dl (70-99); Potassium 6.4 mmol/L (3.5-5.1); Sodium 126 mmol/L (135-145); eGFR 17.22
--- NOTE | 2024-08-22 14:28 | W.PN.UPDATE ---
Update Note
Progress Note Update
Repeat BMP with potassium 6.4. Will provide 5 units IV insulin, 1 amp dextrose, 1 g IV calcium gluconate now for temporization. Will repeat BMP at 10 PM to reassess. May require further temporization with hemodialysis scheduled for tomorrow
morning. Will reach out to nursing now concerning BMP later on
[2024-08-22] MEDS: NOVOLIN R 0.05 UNITS IV (14:53)
[2024-08-22] MEDS: CALCIUM GLUCONATE 1000 MG IV (14:55)
[2024-08-22] MEDS: DEXTROSE 50% SYRINGE 25 GRAMS IV (14:55)
[2024-08-22 15:00] VITALS: BP 215/108
[2024-08-22] MEDS: COMPAZINE 10 MG IV (15:23)
[2024-08-22 15:43] LABS: Glucose - Point of Care 353 mg/dl (70-99)
[2024-08-22] MEDS: PT'S OWN INSULIN PUMP - NovoLOG 7.5 UNIT SC (15:50)
[2024-08-22] MEDS: APRESOLINE 10 MG IV (15:51)
[2024-08-22 16:58] LABS: Glucose - Point of Care 281 mg/dl (70-99)
[2024-08-22 17:00] VITALS: BP 172/109
--- NOTE | 2024-08-22 17:37 | PTCARENOTE ---
Received telphone physician order at 1619 to recheck POC glucose in 1-2 hours and discontinue second dose of 5 units Novilin if POC <300.
[2024-08-22] MEDS: RENVELA PO (18:30)
[2024-08-22 19:57] LABS: Glucose - Point of Care 117 mg/dl (70-99)
[2024-08-22] MEDS: FLUSH (NSS) 2 FLUSH IV ×2 (20:23→21:49)
[2024-08-22] MEDS: PT'S OWN INSULIN PUMP - NovoLOG 2 UNIT SC (20:43)
[2024-08-22 21:47] VITALS: BP 146/111
[2024-08-22 23:19] VITALS: BP 132/83
[2024-08-23 00:57] LABS: Blood Urea Nitrogen 49 mg/dl (9-20); Carbon Dioxide 25 mmol/L (22-30); Chloride 88 mmol/L (98-107); Estimated Creatinine Clearance 19 ml/min; Glucose 94 mg/dl (70-99); Potassium 5.9 mmol/L (3.5-5.1); Sodium 126 mmol/L (135-145); eGFR 15.91
[2024-08-23 03:38] LABS: Glucose - Point of Care 54 mg/dl (70-99)
[2024-08-23] MEDS: BENADRYL 25 MG IV ×4 (03:41→20:49)
[2024-08-23] MEDS: DEXTROSE 50% SYRINGE 12.5 GRAMS IV (04:00)
[2024-08-23 04:02] LABS: Glucose - Point of Care 45 mg/dl (70-99)
[2024-08-23 04:26] LABS: Glucose - Point of Care 97 mg/dl (70-99)
[2024-08-23 06:06] LABS: Glucose - Point of Care 142 mg/dl (70-99)
[2024-08-23 07:24] VITALS: BP 166/113
[2024-08-23 07:44] LABS: Glucose - Point of Care 174 mg/dl (70-99)
[2024-08-23] MEDS: PT'S OWN INSULIN PUMP - NovoLOG SC ×4 (08:58→22:06)
[2024-08-23] MEDS: SUBUTEX 4 MG SL ×2 (08:59→20:45)
[2024-08-23] MEDS: NEPHROCAP 1 CAPSULE PO (08:59)
[2024-08-23] MEDS: ZOLOFT 50 MG PO (09:00)
[2024-08-23] MEDS: COREG 6.25 MG PO ×2 (09:00→20:45)
[2024-08-23] MEDS: VITAMIN B1 100 MG PO (09:00)
[2024-08-23] MEDS: AVAPRO 150 MG PO (09:00)
[2024-08-23] MEDS: TOPAMAX 25 MG PO ×3 (09:00→22:05)
[2024-08-23] MEDS: PROTONIX 40 MG PO ×2 (09:00→20:45)
[2024-08-23] MEDS: ELIQUIS 5 MG PO ×2 (09:00→20:45)
[2024-08-23] MEDS: REGLAN 5 MG IV (09:13)
--- NOTE | 2024-08-23 09:26 | PN.DE.MGMTRT ---
Insulin Management
- -
08/23/2024: Diabetes Management F/U:
Patient admitted with N/V over 2 days, glucose 400s, BHB 7.2, pH 7.23, Severe DKA, GAP 31.
Pt is well known to Diabetes team from recurrent hospitalizations due to DKA, last hospital admission: 07/03/24 - 07/04/24.
PMH: ETOH use disorder, recurrent DKA, ESRD on HD (MWF), T1DM for 18 years. Uses Medtronic 770 pump with NovoLog insulin and Guardian sensor.
Last A1C 7.4% on 06/11/24. Cr 6.6-->3.5, eGFR 22.67
Patient awake, alert and oriented, sitting up at edge of bed, able to discuss diabetes mgt.
Pt was transitioned back to his insulin pump on 08/19. Noted for hypoglycemia as low as 45 @ 3 AM. States his sensor did not trigger a Hypoglycemia alarm.
Overall POC glucose range is 91 to 163. Pt doing well, tolerating diet and adm boluses at meals appropriately.
Will reduce MN to 4AM basal rate by 30%, from 0.350 to 0.250 of current setting.
Check 3AM, blood sugar. Discussed with patient and nurse.
Diabetes History
- -
Type of Diabetes: 1
Pre-Admission Diabetes Regimen
08/22/24 08/23/24
13:29 00:23
Creatinine 4.4 H* 4.7 H*
Insulin Pump Settings
IP Diabetes Regimen
08/22/24 08/22/24 08/22/24
12:38 13:29 15:41
Glucose 230 H
POC Glucose 223 H 353 H
08/22/24 08/22/24 08/23/24
16:57 19:55 00:23
Glucose 94
POC Glucose 281 H 117 H
08/23/24 08/23/24 08/23/24
03:37 03:59 04:24
Glucose
POC Glucose 54 L* 45 L* 97
08/23/24 08/23/24
06:05 07:42
Glucose
POC Glucose 142 H 174 H
Meal type: Breakfast
Amount consumed: 0
Patient Education
[2024-08-23 11:38] LABS: Glucose - Point of Care 235 mg/dl (70-99)
[2024-08-23] MEDS: HEPARIN 500 UNITS IV ×2 (12:20→13:20)
[2024-08-23 12:42] LABS: Hematocrit 25.7 % (39.0-52.0); Hemoglobin 8.6 g/dL (13.0-18.0)
[2024-08-23] MEDS: RETACRIT 10000 UNITS IV (13:32)
[2024-08-23] MEDS: RENVELA PO ×3 (13:53→18:52)
--- NOTE | 2024-08-23 13:53 | W.PN.HOSP.TC ---
Today's Communication/Plan
-
Diabetes management FOUNDER AND CHIEF EXECUTIVE OFFICER managing patient's insulin pump.
Secondary to patient's erratic eating habits sugars up-and-down.
Check echo with cardiomegaly and history of pericardial fusion
Check ultrasound of the chest for pleural effusion
Tigan and Reglan for nausea
Hold Avapro until potassium is stable. Consider nifedipine 30 mg daily instead.
Assessment / Plan
Assessment / Plan
34-year-old with DKA. Presented with nausea blood sugars about 350. He also had dialysis on Friday in [place]
Chest [id number]-[id number] loculated right pleural effusion
CVS: S1-S2 normal
Chest: CTA B/L
Abdomen: Soft, NT / Bowel sounds present
Extremities: No edema, normal pulses
# DKA likely secondary to noncompliance with insulin
Poorly controlled type I diabetes
Insulin pump restarted
# Hyperkalemia-hold irbesartan till potassium improved..
# Hyponatremia-to be corrected during dialysis
# End-stage renal disease
Left upper extremity aVF
Noncompliance with dialysis
Continue with dialysis
Continue sevelamer
# Chronic abdominal pain/gastroparesis-continue Reglan, PPI
# Severe pulmonary hypertension, severe TR, enlarged RV
# Hypertension-hold Avapro secondary to hypokalemia. Start nifedipine 30 mg daily if okay with nephrology
# Cardiomegaly- Check ECHO
# History of PEA/asystole 03/13/2024
# Paroxysmal atrial fibrillation briefly after code 03/13/2024
Also has a history of prior atrial fibrillation
Continue Eliquis, Coreg
# Anxiety and depression-sertraline, Topamax
# Chronic anemia likely secondary to renal disease
# Right pleural effusion with thoracentesis with 1.8 L of transudate removed 02/17/2024. Chest x-ray noted. Check ultrasound-likely secondary to dialysis ESRD.
# History pericardial effusion requiring pericardial drain
# Reported history of PE in 2020 treated with 6 months of anticoagulation
# History of splenic infarct-outpatient follow-up with plant electrical engineer
# History of biliary drain
# Gallstones
# Polysubstance abuse-continue buprenorphine
# History of alcohol use disorder
# Noncompliance with medicines and medical instructions and dialysis
# DVT prophylaxis-Eliquis
# Full code
D/W RN
Spoke to mom and updated
D/W HD RN at bed side
Discussed with nephrology
Anticipated Discharge: Within 24 hours
Subjective/Interval History
-
Date of Service: August 23, 2024
Objective Data
-
Labs:
Laboratory Results
08/23/24
12:15
Hgb 8.6 L
Hct 25.7 L
Vital Signs:
Vital Signs
Temp Pulse Resp BP Pulse Ox
97.5 F 94 19 166/113 99
08/23/24 07:24 08/23/24 07:24 08/23/24 07:24 08/23/24 07:24 08/23/24 07:24
I&O
08/22/24 08/23/24 08/24/24
06:59 06:59 06:59
Intake Total 1170 / 1170 960 / 960
Balance 1170 / 1170 960 / 960
--- NOTE | 2024-08-23 14:33 | CM ---
Met with patient
Patient was getting HD
Returned Lois House call from [facility] ([phone] ext [phone]) - Await her call back.
Spoke with Manfred from [facility] and he has been accepted, will contact with chair time.
Cherise (mom) updated. States he has an appt at [facility] .
PLAN: Outpatient dialysis center [facility] time to be confirmed.
[2024-08-23 15:33] VITALS: BP 191/126
[2024-08-23] MEDS: APRESOLINE 10 MG IV (15:49)
[2024-08-23 15:52] LABS: Glucose - Point of Care 113 mg/dl (70-99)
[2024-08-23] MEDS: SENOKOT 8.6 MG PO ×2 (15:59→20:44)
--- NOTE | 2024-08-23 16:23 | W.PN.NEPH.HD ---
Assessment
-
pt seen during HD
vitals stable
UF as tolerates, gained 5kg over weekend and did not follow FR
strict renal diet and FR
AVF functions well
ok for changing meds per primary, adding Nifedipine in place of ARB for hyperkalemia
Progress Note - Hemodialysis
-
Date of Service: August 23, 2024
Duration: 30 minutes and 3 hours
Potassium Bath: 2
Calcium Bath: 2.5
Opti-Dialyzer: 160
Ultrafiltration: Other (4kg)
Blood Flow: 400
Dialysate Flow: 600
Heparin: yesx2
EPO: [id number]
--- NOTE | 2024-08-23 16:34 | CM ---
TC from Manfred at [facility], they are unable to accept patient.
TC to [facility], spoke with Tr[facility], they do not have a educator senior clinical willing to accept patient in any of their facilities.
TC to Fifi at [facility], they will review clinicals. Clinicals faxed to [phone].
Plan: home with outpatient ETOH treatment and outpatient HD. Looking for an accepting outpatient HD center.
[2024-08-23] MEDS: TRANDATE 10 MG IV (20:44)
[2024-08-23 21:30] LABS: Glucose - Point of Care 192 mg/dl (70-99)
[2024-08-23 22:35] VITALS: BP 166/95
[2024-08-24] MEDS: BENADRYL 25 MG IV ×5 (01:54→19:57)
[2024-08-24 03:11] LABS: Glucose - Point of Care 144 mg/dl (70-99)
[2024-08-24 06:00] VITALS: BMI 18.8
[2024-08-24 07:19] VITALS: BP 163/90
[2024-08-24 07:29] LABS: Glucose - Point of Care 162 mg/dl (70-99)
--- NOTE | 2024-08-24 07:47 | PN.DE.MGMTRT ---
Insulin Management
- -
08/24/2024: Diabetes Management Follow up
Patient admitted with N/V over 2 days, glucose 400s, BHB 7.2, pH 7.23, Severe DKA, GAP 31.
Pt is well known to Diabetes team from recurrent hospitalizations due to DKA, last hospital admission: 07/03/24 - 07/04/24.
PMH: ETOH use disorder, recurrent DKA, ESRD on HD (MWF), T1DM for 18 years. Uses Medtronic 770 pump with NovoLog insulin and Guardian sensor.
Last A1C 7.4% on 06/11/24. Cr 6.6-->3.5, eGFR 22.67
Patient awake, alert and oriented, sitting up at edge of bed, able to discuss diabetes mgt.
Pt was transitioned back to his insulin pump on 08/19.
08/23 4AM basal rate reduced by 30%, from 0.350 to 0.250 of current setting. 3AM glucose 144, fasting glucose 162.
08/24 Glucose range is 113 to 235. Pt doing well, tolerating diet.
Pump settings:
Basal carb ratio Correction
12am .25 10 50
4am .425 10 50
8am .35 10 50
Active insulin 5 hours, target 110.
Will continue pump at current settings.
Discussed with patient and nurse.
Diabetes History
- -
Type of Diabetes: 1
Pre-Admission Diabetes Regimen
Insulin Pump Settings
IP Diabetes Regimen
08/23/24 08/23/24 08/23/24
11:36 15:51 21:28
POC Glucose 235 H 113 H 192 H
08/24/24 08/24/24
03:10 07:28
POC Glucose 144 H 162 H
Meal type: Lunch
Meal type: Breakfast
Amount consumed: 100%
Amount consumed: 0
Patient Education
[2024-08-24 09:00] LABS: Hematocrit 23.8 % (39.0-52.0); Hemoglobin 7.8 g/dL (13.0-18.0); Mean Corp Hgb Conc. 32.8 g/dL (33.0-37.0); Mean Corpuscular Hgb 29.1 pg (27.0-31.0); Mean Corpuscular Volume 88.8 fL (80.0-94.0); Mean Platelet Volume 9.1 fL (7.4-10.4); Platelet Count 246 10^3/uL (130-400); Red Blood Cell Count 2.68 10^6/uL (4.70-6.10); Red Cell Dist. Width 16.9 % (11.5-14.5)
[2024-08-24 09:29] LABS: Blood Urea Nitrogen 27 mg/dl (9-20); Calcium 8.8 mg/dl (8.4-10.2); Carbon Dioxide 27 mmol/L (22-30); Chloride 93 mmol/L (98-107); Estimated Creatinine Clearance 24 ml/min; Glucose 188 mg/dl (70-99); Potassium 4.3 mmol/L (3.5-5.1); Sodium 132 mmol/L (135-145); eGFR 23.47
--- NOTE | 2024-08-24 10:04 | CM ---
Returned call to Kacie Rodriguez, Butter Grader from [phone]). Explained challenges find an accepting Dialysis provider and center for this patient. I explained to Kacie that both [facility] as well as
[facility] have declined him . I made her aware that he had been receiving dialysis at [facility] [place] site but they no longer were willing to accept him back. I also made her aware that we did make a referral to another dialysis provider ,[facility],
but have not heard back from them yet. [employer] [facility] has a Second Chance Program where they assist in finding dialysis sites and providers , for patients that are not being accepted by dialysis providers either due to non-compliance or behaviors.
Kacie stated she would outreach to the manager social services at the [facility] location to learn more and asked that we call her back once we hear back from [facility] if they are able to accept him. Update to CM.
[2024-08-24] MEDS: ZOLOFT 50 MG PO (10:32)
[2024-08-24] MEDS: TOPAMAX 25 MG PO ×3 (10:32→22:20)
[2024-08-24] MEDS: PROTONIX 40 MG PO ×2 (10:32→19:56)
[2024-08-24] MEDS: SENOKOT 8.6 MG PO ×2 (10:33→19:56)
[2024-08-24] MEDS: ELIQUIS 5 MG PO ×2 (10:33→19:56)
[2024-08-24] MEDS: NEPHROCAP 1 CAPSULE PO (10:33)
[2024-08-24] MEDS: SUBUTEX 4 MG SL ×2 (10:33→19:56)
[2024-08-24] MEDS: VITAMIN B1 100 MG PO (10:33)
[2024-08-24] MEDS: RENVELA 800 MG PO ×3 (10:34→17:26)
[2024-08-24] MEDS: PROCARDIA XL (EXTENDED RELEASE) 30 MG PO (10:34)
[2024-08-24] MEDS: COREG 6.25 MG PO ×2 (10:34→19:56)
[2024-08-24] MEDS: PT'S OWN INSULIN PUMP - NovoLOG 0.8 UNIT SC (10:36)
--- NOTE | 2024-08-24 11:05 | CM ---
OBDULIA made outreach to [facility] to speak w/ clinical fiscal manager, Fifi kohli pt clinicals faxed yesterday.
OBDULIA was informed Fifi would call back as she was preparing someone for dialysis.
OBDULIA will await call back
--- NOTE | 2024-08-24 11:25 | PN.CDI ---
Addendum entered and electronically signed by Katia Marie MD 08/24/24 18:03:
see dietaryDocumentation is complete at this time. eval
Original Note:
CDI
- -
CDI:
Physician Documentation Request
Admit Date: 08/17/24 20:45
Dear Doctor Cynthia,
08/23 Nutrition Assessment: 'Pts weight previous two admissions listed as 140 lbs (07/04), 151 lbs 04/27, reflective of 27 lb, 18% in 4 months, significant.'
Please review the following and provide your response in the progress notes.
Clinical Indicators:
Height: 5' 8'
Weight:123 lbs
BMI:18.8
Selected Entries
08/19/24
06:00 08/21/24
06:00 08/24/24
06:00
Body Mass Index (BMI) 18.9 18.8 18.8
If possible, please provide an associated diagnosis related to the abnormal BMI, such as:
Underweight
Cachectic
BMI is not significant
Other
BMI < or = to 19.9
Underweight
Weight Loss
Cachectic
Anorexia
Use of terms such as suspected, likely, concern for, or probable (associated with a specific diagnosis that is being evaluated, monitored, or treated as if it exists) are acceptable and can be coded in the inpatient setting, when documented at the
time of discharge.
Thank you,
Annette Geller RN, BSN
CDI Specialist
Available via [place] text
Please use your independent medical judgment in providing your response.
[2024-08-24 12:04] LABS: Glucose - Point of Care 128 mg/dl (70-99)
--- NOTE | 2024-08-24 13:02 | CM ---
CM spoke w/ Artem[facility] re HD acceptance
Artemio informed CM that the medical device reviewed pt's clinicals and is unable to accept due to pt's non-compliance w/ previous HD locations.
CM will cont. efforts in securing HD location prior to d/c
[2024-08-24] MEDS: PT'S OWN INSULIN PUMP - NovoLOG 3.8 UNIT SC (13:37)
--- NOTE | 2024-08-24 13:47 | W.PN.HOSP.TC ---
Today's Communication/Plan
-
ECHO
Assessment / Plan
Assessment / Plan
34-year-old with DKA. Presented with nausea blood sugars about 350. He also had dialysis on Friday in [place]
Chest y-cnn-[id number] loculated right pleural effusion
CVS: S1-S2 normal
Chest: CTA B/L
Abdomen: Soft, NT / Bowel sounds present
Extremities: No edema, normal pulses
# DKA likely secondary to noncompliance with insulin
Poorly controlled type I diabetes
Insulin pump restarted
# Hyperkalemia-hold irbesartan .K Better
# Hyponatremia-to be corrected during dialysis
# End-stage renal disease
Left upper extremity aVF
Noncompliance with dialysis
Continue with dialysis
Continue sevelamer
# Chronic abdominal pain/gastroparesis-continue Reglan, PPI
# Right pleural effusion with thoracentesis with 1.8 L of transudate removed 02/17/2024. Chest x-ray noted. Ultrasound with moderate effusion. I will get an opinion from pulmonary
# Severe pulmonary hypertension, severe TR, enlarged RV
# Hypertension-hold Avapro secondary to hypokalemia. Started nifedipine 30 mg daily .
# Cardiomegaly- Check ECHO ( The order seems to have been cancelled. )
History pericardial effusion requiring pericardial drain
# History of PEA/asystole 03/13/2024
# Paroxysmal atrial fibrillation briefly after code 03/13/2024
Also has a history of prior atrial fibrillation
Continue Eliquis, Coreg
# Anxiety and depression-sertraline, Topamax
# Chronic anemia likely secondary to renal disease
# Reported history of PE in 2020 treated with 6 months of anticoagulation
# History of splenic infarct-outpatient follow-up with custom protection officer
# History of biliary drain
# Gallstones
# Polysubstance abuse-continue buprenorphine
# History of alcohol use disorder
# Noncompliance with medicines and medical instructions and dialysis
# DVT prophylaxis-Eliquis
# Full code
D/W RN
Spoke to mom and updated 08/23/24
Anticipated Discharge: Within 24 hours
Subjective/Interval History
-
Date of Service: August 24, 2024
Objective Data
-
Labs:
Laboratory Results
08/24/24
08:43
WBC 5.0
Hgb 7.8 L
Hct 23.8 L
Plt Count 246
Sodium 132 L
Potassium 4.3 D
Chloride 93 L
Carbon Dioxide 27
BUN 27 H
Creatinine 3.4 H
Glucose 188 H
Calcium 8.8
Vital Signs:
Vital Signs
Temp Pulse Resp BP Pulse Ox
98.0 F 83 17 163/90 96
08/24/24 07:19 08/24/24 10:34 08/24/24 07:19 08/24/24 10:34 08/24/24 07:19
I&O
08/23/24 08/24/24 08/25/24
06:59 06:59 06:59
Intake Total 960 / 960 940 / 940
Balance 960 / 960 940 / 940
--- NOTE | 2024-08-24 13:55 | W.PN.PUL3 ---
Addendum entered and electronically signed by Michael Arboleda MD 08/24/24 15:21:
Dr. Marie has expressed concern regarding patient noncompliance
With regards to recurrent pleural effusion, agree with echocardiogram. Prior echocardiogram suggests pulmonary hypertension
Recent abdominal imaging from April 2024 rules out any significant liver disease
Given that patient has history of noncompliance, suspect that worsening right pleural effusion most likely in the setting of volume overload, noncompliance given underlying renal disease, pulm hypertension
We will see patient again in a.m. to confirm his understanding of plan moving forward
Original Note:
Today's Communication / Plan
-
Reviewed chronicity of pleural effusion on the right
Per patient, and [facility] records, it appears to be an drained 7 times over the last 15 months
Suspect there may be some trapped lung physiology with pleural thickening
Cytology x 3 negative at [facility], cultures negative
Recommended patient follow-up with pulmonary as outpatient
He prefers to follow-up with [facility], [facility]
If he develops increased symptoms, consider repeat thoracentesis but for now no further intervention
Reviewed with primary service
We will sign off
Assessment
-
34-year-old male with insulin-dependent diabetes, end-stage renal disease on hemodialysis Friday, , and Friday, alcohol abuse, PAF, hypertension and diastolic CHF presented with vomiting for 2 days and DKA-accounting practice manager consulted for
DKA/critical care management 08/18/2024.
Diabetic ketoacidosis-noncompliant despite pump
Alcohol use disorder
End-stage renal disease
Anemia-hemoglobin 8.9-normocytic
Conditions present prior to admission:
Recent hospitalization 06/11/2024-acute alcohol intoxication, DKA and acute on top of chronic abdominal pain
IDDM-Recurrent DKA.
Medical noncompliance
PAF.
Diastolic CHF.
Hypertension.
ESRD on HD Friday//Friday.
Gastroparesis.
Hypertension.
Alcohol use disorder.
History cardiac arrest March 2024
History of polysubstance abuse
Former smoker
Chronic right-sided pleural effusion since 04/2023
Right thoracentesis 04/04/24--1500 mL straw-colored fluid
Right thoracentesis 04/13/24--1450 mL myles fluid
Anxiety and depression
Chronic abdominal pain
Appendectomy. L UE-AV fistula. PD catheter placement with subsequent removal. Biliary tube placement 05/2023.
Plan/recommendations
Asked to see patient for recurrent right pleural effusion. Patient was transferred out of ICU earlier this week
Reviewed history at length. It is noted that presently patient is without symptoms.
Recent chest x-ray 08/17/2024 with significant improvement in effusion when compared to 03/31/2024, and appears to be stable compared to 07/03/2024
Upon reviewing abdominal CT 04/12/[address] chest 03/31/2024, I suspect there may be some mild pleural rind at the base. Although it is difficult to differentiate between atelectasis, images appear to be consistent with pleural thickening
Suspect trapped lung physiology on the right
Patient states he has had thoracentesis x 3 at [facility] (02/17/2024, 04/04/2024, 04/13/2024), thoracentesis x 2 at [facility], thoracentesis x 2 at [facility]
Pleural fluid analysis at [facility] consistent with transudate, cytology negative x 2
Pleural fluid cultures negative for AFB/bacterial/fungal organisms
Moving forward
Given lack of symptoms, stable pleural-parenchymal process at least as far back as June 2024, would not pursue any further thoracentesis as inpatient
Per records, he has had a chronic pleural effusion since April 2023
Prior to pursuing additional thoracentesis, he would benefit from reviewing records from [facility], [facility]
He would benefit from follow-up as outpatient, with regards to imaging and thoracentesis as clinically indicated
I reviewed possibility of draining fluid again during current hospital stay, patient wishes not to pursue this as he feels it is stable
Continue with management per primary service
Outpatient follow-up recommended with pulmonary. This was discussed with patient.
He prefers to follow-up with [facility] as his primary physician is through [facility]
All questions answered
Reviewed with primary service
Diagnostic data:
Chest x-ray 04/27/2024-moderate right pleural effusion, right lower lobe airspace disease
Chest x-ray 07/03/2024-moderate right pleural effusion, small left pleural effusion
Chest x-ray 08/17/2024-moderate loculated right pleural effusion mildly improved
Echocardiogram 04/02/2024-EF 55-60%, RV volume overload, dilated hypocontractile right ventricle
Subjective Data
-
Date of Service:
Date of Service: August 24, 2024
Subjective:
Presently, patient denies any pulmonary symptoms. Denies shortness of breath, chest pain, pleurisy, cough, hemoptysis.
Objective Data
Data Reviewed
Vital Signs / I&O / Oxygen:
Vital Signs
Temp Pulse Resp BP Pulse Ox
98.0 F 83 17 163/90 96
08/24/24 07:19 08/24/24 10:34 08/24/24 07:19 08/24/24 10:34 08/24/24 07:19
Intake and Output
08/23/24 08/24/24 08/25/24
06:59 06:59 06:59
Intake Total 960 / 960 940 / 940
Balance 960 / 960 940 / 940
SaO2 96
Nasal Cannula flow liters per 2
minute
Physical Exam
General: Comfortable and Other (UE AVF)
HEENT: Normocephalic and Anicteric
Cardiovascular: S1-S2, Regular Rhythm, Murmur (n) and Rub (n)
Respiratory: Wheeze (n), Crackles (n), Rhonchi (n), Non-Labored Respirations and Other (Slight decreased right base, minimal egophony)
GI: Soft, Non Distended and Non Tender
Neurology: Awake, Alert and No Motor Deficits (Following commands, able to sit up without assistance)
Skin: Good Color (n), Cyanosis (n) and Jaundice
Labs/Micro/Reports
Lab Data
08/24/24 08:43
08/24/24 08:43
[2024-08-24 15:23] VITALS: BP 131/82
--- NOTE | 2024-08-24 15:35 | W.PN.NEPH.PH ---
Today's Communication / Plan
-
HD tomorrow
Assessment/Plan
-
Impression:
ESRD TTS most recently
Status post PEA/Asystole 03/13/24
PAF : briefly after code on 03/13/24
Chronic noncompliance with dialysis
left UE AVF
DKA
Hyperkalemia
Hyponatremia
Chronic Abdominal Pain / Gastroparesis
Pulmonary hypertension
Polysubstance abuse
Anxiety
History of biliary drain
Anemia
Right pleural effusion--s/p R thoracentesis for pleural effusion with 1.8L transudate 02/17/24
History of pericardial effusion requiring pericardial drain
Plan:
HD tomorrow,
will need arrangements at another HD unit, CM working
BP improving on procardia, off ARB mainly for hyperkalemia
PETE for anemia with HD
chest US shows mo pleural effusion -may need to tap , currently no symp
reviewed with pt about imp of compliance to medical care
-
-
Date of Service: August 24, 2024
CC / HPI / ROS
-
Chief Complaint:
ESRD
History of Present Illness:
tolerated HD yesterday
BP stable
anemia on PETE, hb low 7.8
Review of Systems:
no CP/SOB
c/o gen itching
Labs
-
Labs:
WBC 5.0 10^3/uL (4.8-10.8) 08/24/24 08:43
RBC 2.68 10^6/uL (4.70-6.10) L 08/24/24 08:43
Hgb 7.8 g/dL (13.0-18.0) L 08/24/24 08:43
Hct 23.8 % (39.0-52.0) L 08/24/24 08:43
Plt Count 246 10^3/uL (130-400) 08/24/24 08:43
Sodium 132 mmol/L (135-145) L 08/24/24 08:43
Potassium 4.3 mmol/L (3.5-5.1) D 08/24/24 08:43
Chloride 93 mmol/L (98-107) L 08/24/24 08:43
Carbon Dioxide 27 mmol/L (22-30) 08/24/24 08:43
BUN 27 mg/dl (9-20) H 08/24/24 08:43
Creatinine 3.4 mg/dL (0.7-1.3) H 08/24/24 08:43
eGFR 23.47 08/24/24 08:43
Glucose 188 mg/dl (70-99) H 08/24/24 08:43
Calcium 8.8 mg/dl (8.4-10.2) 08/24/24 08:43
Albumin 4.1 g/dl (3.5-5.0) 08/17/24 19:11
Physical Exam
-
Vital Signs:
Vital Signs
Temp Pulse Resp BP Pulse Ox
97.9 F 81 18 131/82 96
08/24/24 15:23 08/24/24 15:23 08/24/24 15:23 08/24/24 15:23 08/24/24 15:23
Cardiovascular:: Regular rate and rhythm
Respiratory:: Bilateral: CTA (decreased)
Lung Excursion:: Normal
Abdomen:: Nontender and Soft
Extremity Edema:: +1: Bilateral:
Randhawa Catheter: No
[2024-08-24 16:59] LABS: Glucose - Point of Care 120 mg/dl (70-99)
[2024-08-24] MEDS: PT'S OWN INSULIN PUMP - NovoLOG 3 UNIT SC (17:32)
[2024-08-24 19:45] VITALS: BP 159/89
[2024-08-24] MEDS: REGLAN 5 MG IV (20:08)
[2024-08-24 21:26] LABS: Glucose - Point of Care 206 mg/dl (70-99)
[2024-08-24] MEDS: PT'S OWN INSULIN PUMP - NovoLOG SC (22:53)
[2024-08-24 23:01] LABS: Glucose - Point of Care 126 mg/dl (70-99)
[2024-08-24 23:45] VITALS: BP 154/92
[2024-08-25] MEDS: BENADRYL 25 MG IV ×4 (00:07→15:49)
[2024-08-25 03:32] VITALS: BP 129/86
[2024-08-25 05:16] LABS: Hematocrit 23.8 % (39.0-52.0); Hemoglobin 7.8 g/dL (13.0-18.0)
[2024-08-25 05:30] LABS: Blood Urea Nitrogen 36 mg/dl (9-20); Calcium 8.7 mg/dl (8.4-10.2); Carbon Dioxide 28 mmol/L (22-30); Chloride 93 mmol/L (98-107); Estimated Creatinine Clearance 19 ml/min; Glucose 105 mg/dl (70-99); Potassium 4.8 mmol/L (3.5-5.1); Sodium 131 mmol/L (135-145); eGFR 17.22
[2024-08-25 06:00] VITALS: BMI 19.3
[2024-08-25 06:03] LABS: Glucose - Point of Care 99 mg/dl (70-99)
[2024-08-25 07:19] VITALS: BP 124/80
[2024-08-25 07:29] LABS: Glucose - Point of Care 182 mg/dl (70-99)
--- NOTE | 2024-08-25 07:40 | PN.DE.MGMTRT ---
Insulin Management
- -
08/25/2024: Diabetes Management Follow up
Patient admitted with N/V over 2 days, glucose 400s, BHB 7.2, pH 7.23, Severe DKA, GAP 31.
Pt is well known to Diabetes team from recurrent hospitalizations due to DKA, last hospital admission: 07/03/24 - 07/04/24.
PMH: ETOH use disorder, recurrent DKA, ESRD on HD (MWF), T1DM for 18 years. Uses Medtronic 770 pump with NovoLog insulin and Guardian sensor.
Last A1C 7.4% on 06/11/24. Cr 6.6-->3.5, eGFR 22.67
Patient awake, alert and oriented, sitting up at edge of bed, able to discuss diabetes mgt.
Pt was transitioned back to his insulin pump on 08/19.
08/23 12 AM basal rate reduced by 30%, from 0.350 to 0.250 of current setting. 3AM glucose 144, fasting glucose 162.
08/24 Glucose range is 113 to 235.
08/25 Fasting glucose 182, tolerating diet.
Pump settings:
Basal carb ratio Correction
12am .25 10 50
4am .425 10 50
8am .35 10 50
Active insulin 5 hours, target 110.
Will continue pump at current settings.
Discussed with patient and nurse.
Diabetes History
- -
Type of Diabetes: 1
Pre-Admission Diabetes Regimen
08/24/24 08/25/24
08:43 04:39
Creatinine 3.4 H 4.4 H*
Insulin Pump Settings
IP Diabetes Regimen
08/24/24 08/24/24 08/24/24
08:43 12:01 16:57
Glucose 188 H
POC Glucose 128 H 120 H
08/24/24 08/24/24 08/25/24
21:24 23:00 04:39
Glucose 105 H
POC Glucose 206 H 126 H
08/25/24 08/25/24
06:00 07:28
Glucose
POC Glucose 99 182 H
Meal type: Dinner
Meal type: Lunch
Meal type: Breakfast
Amount consumed: 90%
Amount consumed: 100%
Amount consumed: 0
Patient Education
[2024-08-25] MEDS: PROCARDIA XL (EXTENDED RELEASE) 30 MG PO (08:35)
[2024-08-25] MEDS: VITAMIN B1 100 MG PO (08:35)
[2024-08-25] MEDS: PROTONIX 40 MG PO (08:35)
[2024-08-25] MEDS: RENVELA 800 MG PO ×3 (08:35→17:12)
[2024-08-25] MEDS: NEPHROCAP 1 CAPSULE PO (08:35)
[2024-08-25] MEDS: COREG 6.25 MG PO (08:36)
[2024-08-25] MEDS: SUBUTEX 4 MG SL (08:36)
[2024-08-25] MEDS: TOPAMAX 25 MG PO ×2 (08:36→17:12)
[2024-08-25] MEDS: ZOLOFT 50 MG PO (08:36)
[2024-08-25] MEDS: ELIQUIS 5 MG PO (08:36)
[2024-08-25] MEDS: SENOKOT 8.6 MG PO (08:37)
[2024-08-25 08:47] LABS: Iron 29 ug/dl (49-181); Percent Saturation 15 % (20-50); Total Iron Binding Capacity 187 ug/dl (261-462)
[2024-08-25 09:35] LABS: Vitamin B12 843 pg/ml (239-931)
--- NOTE | 2024-08-25 09:39 | W.PN.PUL3 ---
Today's Communication / Plan
-
Patient continues to refuse thoracentesis
Agrees to follow-up with primary and pulmonary at [place]
Reviewed possibility of underlying liver disease
May require additional workup for liver disease. This can be done as outpatient
Patient compliance has been an issue
Will defer to primary service otherwise, we will sign off. Please call with questions
Assessment
-
34-year-old male with insulin-dependent diabetes, end-stage renal disease on hemodialysis Friday, , and Friday, alcohol abuse, PAF, hypertension and diastolic CHF presented with vomiting for 2 days and DKA-zoology professor consulted for
DKA/critical care management 08/18/2024.
Diabetic ketoacidosis-noncompliant despite pump
Alcohol use disorder
End-stage renal disease
Anemia-hemoglobin 8.9-normocytic
Conditions present prior to admission:
Recent hospitalization 06/11/2024-acute alcohol intoxication, DKA and acute on top of chronic abdominal pain
IDDM-Recurrent DKA.
Medical noncompliance
PAF.
Diastolic CHF.
Hypertension.
ESRD on HD Friday//Friday.
Gastroparesis.
Hypertension.
Alcohol use disorder.
History cardiac arrest March 2024
History of polysubstance abuse
Former smoker
Chronic right-sided pleural effusion since 04/2023
Right thoracentesis 04/04/24--1500 mL straw-colored fluid
Right thoracentesis 04/13/24--1450 mL myles fluid
Anxiety and depression
Chronic abdominal pain
Appendectomy. L UE-AV fistula. PD catheter placement with subsequent removal. Biliary tube placement 05/2023.
Plan/recommendations
Asked to see patient for recurrent right pleural effusion. Patient was transferred out of ICU earlier this week
Reviewed history at length. It is noted that presently patient is without symptoms.
Recent chest x-ray 08/17/2024 with significant improvement in effusion when compared to 03/31/2024, and appears to be stable compared to 07/03/2024
Upon reviewing abdominal CT 04/12/[address] chest 03/31/2024, I suspect there may be some mild pleural rind at the base. Although it is difficult to differentiate between atelectasis, images appear to be consistent with pleural thickening
Suspect trapped lung physiology on the right
Patient states he has had thoracentesis x 3 at [facility] (02/17/2024, 04/04/2024, 04/13/2024), thoracentesis x 2 at [facility], thoracentesis x 2 at [place]
Pleural fluid analysis at [facility] consistent with transudate, cytology negative x 2
Pleural fluid cultures negative for AFB/bacterial/fungal organisms
Echocardiogram 08/24/2024 with enlarged RV size with RV pressure overload consistent with severe pulm hypertension, PA pressure 63
This has worsened compared to prior study
There is also ascites noted per echocardiogram
Abdominal ultrasound 04/26/2024 shows hepatomegaly at 20.5 cm
Moving forward
I brought up again potential need for repeat thoracentesis
Given lack of symptoms, stable pleural-parenchymal process at least as far back as June 2024, would not pursue any further thoracentesis as inpatient
Per records, he has had a chronic pleural effusion since April 2023
Patient not agreeable to tap at this time
Discussed how his potential liver disease and pulm hypertension may be contributing to his right pleural effusion
It is imperative that he follow-up with his primary doctor and/or pulmonary. Patient wishes to follow-up with pulmonary at [place]
May require additional workup to rule out underlying liver disease. This will be deferred to primary service. This may explain his chronic recurrent right pleural effusion, especially in conjunction with pulmonary hypertension
Management of underlying liver disease, volume status will be important in maintaining stability of his right pleural effusion
Prior to pursuing additional thoracentesis, he would benefit from reviewing records from [facility], [place]
He would benefit from follow-up as outpatient, with regards to imaging and thoracentesis as clinically indicated
I reviewed possibility of draining fluid again during current hospital stay, patient wishes not to pursue this as he feels it is stable
Continue with management per primary service
Outpatient follow-up recommended with pulmonary. Importance of this was discussed with patient.
Also reviewed importance of alcohol abstinence
All questions answered
Reviewed with primary service
We will sign off. Please call with questions
Diagnostic data:
Chest x-ray 04/27/2024-moderate right pleural effusion, right lower lobe airspace disease
Chest x-ray 07/03/2024-moderate right pleural effusion, small left pleural effusion
Chest x-ray 08/17/2024-moderate loculated right pleural effusion mildly improved
Echocardiogram 04/02/2024-EF 55-60%, RV volume overload, dilated hypocontractile right ventricle
Subjective Data
-
Date of Service:
Date of Service: August 25, 2024
Subjective:
Patient sleeping during my initial assessment. Woken up easily. Denies shortness of breath, chest pain, cough, abdominal pain, nausea
Objective Data
Data Reviewed
Vital Signs / I&O / Oxygen:
Vital Signs
Temp Pulse Resp BP Pulse Ox
98.3 F 87 17 124/80 96
08/25/24 07:19 08/25/24 08:35 08/25/24 07:19 08/25/24 08:35 08/25/24 07:19
Intake and Output
08/24/24 08/25/24 08/26/24
06:59 06:59 06:59
Intake Total 940 / 940 1644 / 1644
Balance 940 / 940 1644 / 1644
SaO2 96
Nasal Cannula flow liters per 2
minute
Physical Exam
General: Comfortable and Other (UE AVF)
HEENT: Normocephalic and Anicteric
Cardiovascular: S1-S2, Regular Rhythm, Murmur (n) and Rub (n)
Respiratory: Wheeze (n), Crackles (n), Rhonchi (n), Non-Labored Respirations and Other (Slight decreased right base, minimal egophony)
GI: Soft, Non Distended and Non Tender
Neurology: Awake, Alert and No Motor Deficits (Following commands, able to sit up without assistance)
Skin: Good Color (n), Cyanosis (n) and Jaundice
Labs/Micro/Reports
Lab Data
08/25/24 04:40
08/25/24 04:39
--- NOTE | 2024-08-25 10:40 | CM ---
Addendum entered by Francisco Shelton 08/25/24 15:32:
Return call to Deyanira/[facility].
Deyanira stated after reviewing pt referral and speaking with [facility]'s director, they are unable to accept pt
CM faxed updated clinicals and HD flow sheets to [facility] as they are willing to accept pt
Per [facility], facility is open to begin with pt Friday at 6 am. Pt will receive dialysis Fri, Fri and Friday at 6 am
Pt seen at bedside, currently receiving HD
CM informed of [facility] acceptance and schedule w/ next treatment on Friday at 6 am
CM informed him that he is encouraged to come 30 minutes earlier to complete paperwork per [facility]. Pt agreeable
CM also confirmed w/ pt about his appt w/ [facility] tomorrow, pt agreeable.
Pt stated either his mom or dad will transport or he will take an uber
Hospitalist, nurse and pt's mom updated. Per mom, pt will Uber home
Plan: Home w/ OP HD- [facility] D[facility]- [facility]

Addendum entered by Francisco Shelton 08/25/24 13:58:
CM spoke w/ Deyanira, social media sr strategy manager/[facility] re referral sent for pt
Deyanira shared concerns w/ distance and if transportation would be a barrier for pt since he was not consistent w/ prev. HD location which was closer to his residence
Deyanira stated she will consult w/ her medical coder and reach out to [facility] director for more information.
[facility] informed [facility] that pt has been accepted at [facility]. Max stated he will confirm schedule but poss. next available day is Friday. Max will call back w/ confirmation
Addendum entered by Francisco Shelton 08/25/24 12:30:
CM spoke w/ Nancy/[facility] in [facility] confirmed there is a HD spot currently open for pt referral
CM sent referral to [facility] ([phone]), pending determination
CM spoke w/ [place]/MIRTHA who informed CM that [facility] has pt appt for tomorrow and pt will need to call and reschedule since he isn't able to keep appt
Addendum entered by Francisco Shelton 08/25/24 11:38:
Return call from Kacie/[facility].
CM informed [facility] is unable to accept pt
Kacie discussed her communication w/ Pam and was informed of pt's behaviors of coming to tx high, attempting to leave while connected to the machine, etc. In addition to pt coming once a week and multiple hospitalizations during the
week presenting drug seeking behaviors.
Kacie stated if pt is connected w/ and agreeable to D&A rehab, she can advocate further to secure HD location
CM spoke w/ Josué/MIRTHA as pt was connected w/ resource through [facility] ([facility] [place] [place]) with appt on 08/26
Josué stated he will call [facility] informing of pt's appt for tomorrow and current hospitalization
OBDULIA informed Kacie of pt's appt tomorrow and poss. option of virtual appt. Kacie stated she will consult w/ her car repair supervisor on how to move forward with assistance.
CM will explore additional HD locations and send referrals as needed
Hospitalist updated
Original Note:
CM attempted TC to Kacie Rodriguez social media sr strategy manager @ [facility] [phone] to follow up w/ [facility] declining pt for OP HD. There was no answer, CM left message.
CM will await call back and cont. to follow up
Plan: Home w/ OP HD
[2024-08-25] MEDS: PT'S OWN INSULIN PUMP - NovoLOG 2 UNIT SC ×2 (11:05→18:09)
[2024-08-25 11:19] LABS: Glucose - Point of Care 119 mg/dl (70-99)
--- NOTE | 2024-08-25 12:04 | W.PN.HOSP.TC ---
Today's Communication/Plan
-
Rpt Hb
Discharge when a HD place set up as OP
Assessment / Plan
Assessment / Plan
34-year-old with DKA. Presented with nausea blood sugars about 350. He also had dialysis on Friday in [place]
Chest y-dgo-gotriztg loculated right pleural effusion
CVS: S1-S2 normal
Chest: CTA B/L
Abdomen: Soft, NT / Bowel sounds present
Extremities: No edema, normal pulses
# DKA likely secondary to noncompliance with insulin
Poorly controlled type I diabetes
Insulin pump restarted
# Hyperkalemia-hold irbesartan .K Better
# Hyponatremia-to be corrected during dialysis
# End-stage renal disease
Left upper extremity aVF
Noncompliance with dialysis
Continue with dialysis
Continue sevelamer
Due to patient's noncompliance and disruptive behavior patient lost his outpatient dialysis spot. Case management working on getting him a new place. Patient and mom states that he was accepted to [facility] near [place]. We will look into this.
# Chronic abdominal pain/gastroparesis-continue Reglan, PPI
# Right pleural effusion with thoracentesis with 1.8 L of transudate removed 02/17/2024. Chest x-ray noted. Ultrasound with moderate effusion. Pulmonary evaluation appreciated. Continue with dialysis and hold off on thoracentesis. Patient also
does not want thoracentesis at this point.
# Severe pulmonary hypertension, severe TR, enlarged RV-outpatient follow-up with pulmonary. Importance of compliance with medicines and dialysis discussed with the patient. He needs further workup as outpatient on this.
# Hypertension-hold Avapro secondary to hypokalemia. Started nifedipine 30 mg daily .
# Cardiomegaly- Check ECHO ( The order seems to have been cancelled. )
History pericardial effusion requiring pericardial drain
# History of PEA/asystole 03/13/2024
# Paroxysmal atrial fibrillation briefly after code 03/13/2024
Also has a history of prior atrial fibrillation
Continue Eliquis, Coreg
# Anxiety and depression-sertraline, Topamax
# Chronic anemia likely secondary to renal disease-repeat hemoglobin after dialysis today.
# Reported history of PE in 2020 treated with 6 months of anticoagulation
# History of splenic infarct-outpatient follow-up with senior accounts payable clerk
# History of biliary drain
# Gallstones
# Polysubstance abuse-continue buprenorphine
# History of alcohol use disorder
# Noncompliance with medicines and medical instructions and dialysis
# DVT prophylaxis-Eliquis
# Full code
D/W RN
Spoke to mom and updated 08/25/24. She is aware about pulmonary hypertension, small effusion, outpatient follow-up needs.
Discussed with pulmonary
Discussed with case management
Discussed with patient's nurse
Total time spent over 50 minutes
Anticipated Discharge: Today
Subjective/Interval History
-
Date of Service: August 25, 2024
Objective Data
-
Labs:
Laboratory Results
08/25/24 08/25/24 08/25/24
04:39 04:40 14:00
Hgb 7.8 L Pending
Hct 23.8 L Pending
Sodium 131 L
Potassium 4.8
Chloride 93 L
Carbon Dioxide 28
BUN 36 H
Creatinine 4.4 H*
Glucose 105 H
Calcium 8.7
Vital Signs:
Vital Signs
Temp Pulse Resp BP Pulse Ox
98.3 F 87 17 124/80 96
08/25/24 07:19 08/25/24 08:35 08/25/24 07:19 08/25/24 08:35 08/25/24 07:19
I&O
08/24/24 08/25/24 08/26/24
06:59 06:59 06:59
Intake Total 940 / 940 1644 / 1644
Balance 940 / 940 1644 / 1644
[2024-08-25 12:38] LABS: Glucose - Point of Care 47 mg/dl (70-99)
[2024-08-25 13:04] LABS: Glucose - Point of Care 48 mg/dl (70-99)
[2024-08-25] MEDS: APRESOLINE 10 MG IV (13:07)
[2024-08-25] MEDS: DEXTROSE 50% SYRINGE 12.5 GRAMS IV (13:07)
[2024-08-25 13:32] LABS: Glucose - Point of Care 143 mg/dl (70-99)
--- NOTE | 2024-08-25 13:55 | W.PN.NEPH.HD ---
Assessment
-
Patient seen on dialysis
Systolic blood pressure was over 200 at initiation of dialysis, IV hydralazine was provided
Systolic blood pressure now 119 2 kg UF
Will continue to titrate antihypertensives
Will provide IV iron given ongoing anemia with low iron indices
Progress Note - Hemodialysis
-
Date of Service: August 25, 2024
Duration: 30 minutes and 3 hours
Potassium Bath: 2
Calcium Bath: 2.5
Opti-Dialyzer: 160
Blood Flow: 400
Dialysate Flow: 600
Heparin: none (extensive bleeding from fistula during last treatment with heparin)
EPO: 10K
[2024-08-25] MEDS: PT'S OWN INSULIN PUMP - NovoLOG SC (14:28)
[2024-08-25 14:32] LABS: Hematocrit 25.2 % (39.0-52.0); Hemoglobin 8.2 g/dL (13.0-18.0)
[2024-08-25 15:05] VITALS: BP 124/64
[2024-08-25] MEDS: RETACRIT 10000 UNITS IV (15:12)
[2024-08-25] MEDS: FERRLECIT 110 MG IV (15:13)
--- NOTE | 2024-08-25 15:31 | W.PN.UPDATE ---
Addendum entered and electronically signed by Katia Marie MD 08/25/24 16:02:
I have reached out to outpatient GI to set up an appointment for the patient to be seen in the outpatient office.
Our GI office called the patient to set up an appointment. Patient wanted to call them back when he knows her schedule.
More than 30 minutes spent in discharge including
Final examination of the patient
Summarizing hospital stay
Instructions for continuing care to all relevant caregivers
Preparation of discharge records, prescriptions, and referral forms
Total time spent (in minutes): 45 min
Original Note:
Update Note
Progress Note Update
Per case management patient has a place at [facility] for dialysis starting Friday
Repeat hemoglobin 8.2 will discharge patient after dialysis
Discussed with nephrology
Discussed with case management
D/W Rn
--- NOTE | 2024-08-25 16:02 | W.DS.TRANS ---
Addendum entered and electronically signed by Katia Marie MD 08/26/24 07:58:
Dictation- [id number]
Original Note:
DC Summary - Lab Analyst
-
Discharge Instructions:
Sleep Apnea Risk Low
Discharge Diagnosis/Procedures Diabetic history acidosis
Type 1 diabetes
High potassium
Low sodium
End-stage renal disease
Chronic abdominal pain
Chronic right pleural effusion
Severe pulmonary hypertension
High blood pressure
History of PEA/asystole 03/13/2024
Paroxysmal atrial fibrillation
Chronic anemia
History of PE in 2020
History of splenic infarct
Diet Restrict fluids to 48 oz,2 Gram Sodium,Diabetic,
Carb Controlled
Activity As tolerated
Blood Work CBC 1 week
Instructions:
Stand-Alone Forms:
Changes to Home Medications: Yes
Discharge Medications:
DC Medications w/original date entered in [id number]
Patient Own Insulin Pump 0 units SC .VIA PUMP diabetes ##0 07/04/24
apixaban 5 mg tablet (Eliquis) 5 mg PO BID Blood Clot Prevention/Tx 08/17/24
buprenorphine 4 mg-naloxone 1 mg sublingual film 1 film sublingual BID SUBSTANCE USE DISORDER 08/17/24
pantoprazole 40 mg tablet,delayed release 40 mg PO BID Gastrointestinal Issue 08/17/24
sertraline 50 mg tablet 50 mg PO DAILY Mental Health/Anxiety 08/17/24
sevelamer carbonate 800 mg tablet 800 mg PO TID Kidney Disease 08/17/24
thiamine HCl (vitamin B1) 100 mg tablet 100 mg PO DAILY Supplement 08/17/24
topiramate 25 mg tablet 25 mg PO TID Mental Health/Anxiety 08/17/24
vitamin B complex-vitamin C-folic acid 0.8 mg tablet (Jessica-Jennifer) 1 tab PO DAILY Supplement 08/17/24
carvedilol 12.5 mg tablet 12.5 mg PO BID #60 tabs 08/25/24
metoclopramide HCl 10 mg tablet (Reglan) 5 mg (1/2 x 10 mg) PO Q8HPRN PRN nausea #0 tabs 08/25/24
nifedipine 30 mg tablet,extended release 30 mg PO DAILY Blood pressure #60 tabs 08/25/24
Home Medication Changes
Restart.
Nifedipine is new
Coreg dose increased
Insulin pump adjusted
Pending Results: No
[2024-08-25 16:31] LABS: Glucose - Point of Care 189 mg/dl (70-99)
== END 2024-08-25 18:48 | disposition home or self-care (01) | DRG 637 ==
LOC: 3 WEST ACU 20:45
PROVIDERS: Internal Medicine; Physician Assistant; Specialist; ADMITTING PHYSICIAN Internal Medicine; ATTENDING PHYSICIAN Hospitalist; CONSULT PHYSICIAN Internal Medicine Critical Care Medicine; EMERGENCY PHYSICIAN Emergency Medicine; FAMILY PHYSICIAN Internal Medicine; OTHER PHYSICIAN Specialist
PROC: 5A1D70Z Performance of Urinary Filtration, Intermittent, Less than 6 Hours Per Day (ICD-10-PCS; 2024-08-18)
DX: E10.10 Type 1 diabetes mellitus with ketoacidosis without coma (principal); N18.6 End stage renal disease; E87.1 Hypo-osmolality and hyponatremia; I13.2 Hypertensive heart and chronic kidney disease with heart failure and with stage 5 chronic kidney disease, or end stage renal disease; J91.8 Pleural effusion in other conditions classified elsewhere; I50.32 Chronic diastolic (congestive) heart failure; I27.20 Pulmonary hypertension, unspecified; D63.1 Anemia in chronic kidney disease; Z99.2 Dependence on renal dialysis; E10.22 Type 1 diabetes mellitus with diabetic chronic kidney disease; E10.43 Type 1 diabetes mellitus with diabetic autonomic (poly)neuropathy; F10.20 Alcohol dependence, uncomplicated; F32.A Depression, unspecified; Z91.158 Patient's noncompliance with renal dialysis for other reason; Z86.74 Personal history of sudden cardiac arrest; E87.5 Hyperkalemia; F17.200 Nicotine dependence, unspecified, uncomplicated; F41.9 Anxiety disorder, unspecified; G89.29 Other chronic pain; H54.7 Unspecified visual loss; I48.0 Paroxysmal atrial fibrillation; G47.30 Sleep apnea, unspecified; K31.84 Gastroparesis; R54 Age-related physical debility; Z96.41 Presence of insulin pump (external) (internal); Z91.199 Patient's noncompliance with other medical treatment and regimen due to unspecified reason; Z79.01 Long term (current) use of anticoagulants; Z79.4 Long term (current) use of insulin; Z79.899 Other long term (current) drug therapy; Z86.711 Personal history of pulmonary embolism
CPT/HCPCS: 71046; 76604; 80048; 80053; 82010; 82607; 82728; 82805; 82947; 82962; 83540; 83550; 83690; 83735; 85014; 85018; 85025; 85027; 93005; 93306; 96361; 96372; 96374; 99291; 99406; G0257; J2916; P9047; Q5106

== ENCOUNTER 2024-10-03 19:06 | Emergency (ER) | payer OTHER, SELFPAY ==
[2024-10-03 19:12] VITALS: BP 158/92
--- NOTE | 2024-10-03 20:30 | EDRN ---
Pt was wheeled to room #8 and said he felt better and did not want to be evaluated. This RN spoke with pt. Pt says he had chest pain which he gets often. He no longer has chest pain or any other complaint. Pt says he wants to go home and does
not need to be evaluated by ED provider. Pt read and signed Declination of Medical Care form. Pt had no questions. Pt aware he can return at any time to be evaluated. Pt says he will Uber home now.
== END 2024-10-03 20:28 ==
LOC: EMR 19:06
PROVIDERS: EMERGENCY PHYSICIAN Emergency Medicine
DX: R07.9 Chest pain, unspecified (principal); Z53.21 Procedure and treatment not carried out due to patient leaving prior to being seen by health care provider
CPT/HCPCS: 93005

== ENCOUNTER → 2024-11-18 12:55 | Outpatient (REF) | payer OTHER, SELFPAY | LOC: RCS 12:55 | PROVIDERS: ATTENDING PHYSICIAN Internal Medicine Cardiovascular Disease; FAMILY PHYSICIAN Internal Medicine | DX: I27.20 Pulmonary hypertension, unspecified (principal) | CPT/HCPCS: 93017 ==

== ENCOUNTER → 2025-05-12 12:30 | Outpatient (REF) | payer OTHER, SELFPAY | LOC: WOUND 12:30 | PROVIDERS: ATTENDING PHYSICIAN Surgery | DX: L97.211 Non-pressure chronic ulcer of right calf limited to breakdown of skin (principal); S92.502A Displaced unspecified fracture of left lesser toe(s), initial encounter for closed fracture; L97.221 Non-pressure chronic ulcer of left calf limited to breakdown of skin; L97.422 Non-pressure chronic ulcer of left heel and midfoot with fat layer exposed; L97.522 Non-pressure chronic ulcer of other part of left foot with fat layer exposed; L97.512 Non-pressure chronic ulcer of other part of right foot with fat layer exposed; E10.69 Type 1 diabetes mellitus with other specified complication; N18.6 End stage renal disease; F17.200 Nicotine dependence, unspecified, uncomplicated; F19.90 Other psychoactive substance use, unspecified, uncomplicated; L12.0 Bullous pemphigoid; Z99.2 Dependence on renal dialysis | CPT/HCPCS: 99205 ==

== ENCOUNTER 2025-05-12 18:09 | Inpatient (IN) | payer OTHER, SELFPAY ==
[2025-05-12] VITALS (10 sets, daily range): BP systolic 113–191; BP diastolic 69–121; BMI 22.4; BMI 22.2
--- NOTE | 2025-05-12 14:57 | ED.GENMED ---
History of Present Illness
General
Chief Complaint: Skin Problem
Time Seen by Provider: 05/12/25 14:42
History of Present Illness
History of Present Illness:
35-year-old male with history of end-stage renal disease on dialysis, insulin-dependent diabetes, CHF, hypertension, and polysubstance abuse presents to the emergency department for evaluation of wounds to the left second toe. Numerous wounds to
bilateral lower extremities, has been seeing outpatient wound care but states that while changing her dressing approxi-1 week ago he felt as though 'bone is broken' in his left second toe. He denies any pain today currently. No fevers or chills
but does have nausea and vomiting. He states that he has been compliant with his dialysis treatments
Past History
Past History
ED Past Medical History: Arrthythmia, CHF, HTN, IDDM, Renal failure and Other
ED Past Surgical History: Appendectomy and Other (Left AV fistula, biliary drain removed)
Patient has exhibited threatening behavior?: No
PSI?: No
Social History
Tobacco: Smoker
Alcohol: None
Drug: None
Personal: Single
Living: with family
Employment: Disabled
Family History
Family History: Other
Review of Systems
Review of Systems
Allergies reviewed?: Yes
All Other Systems: ROS reviewed and negative except as documented in HPI and ROS
Phy Exam
Physical Exam
Physical Exam:
GEN: Well appearing, NAD, WDWN
HEENT: Oral mucosa moist, no scleral icterus
Cardiac: Regular rate
Lung: No respiratory distress, no tachypnea
MSK: No gross deformity or injuries
Skin: Good color, no pallor or jaundice, numerous wounds to bilateral lower extremities predominantly superficial, on the left second toe there are stage II ulcerations dorsally and on the plantar surface, deformity noted with crepitus to the middle
phalanx
Neuro: AO x3, moves all extremities freely
Psych: Calm, cooperative
Course
Orders/Labs/Results
Orders:
Orders
05/12/25 Breakfast
Sodium, 2 Gram
At Your Request: Full Participation
Fluid Restriction: 1440 mL/day (48 oz)
Low Sodium: Potassium, 2 Gram
1999 kaye/ 17 CHO Diabetic
05/12/25 14:56
CR Toe(s) Min 2 Vw Left Urgent
Comment:
Reason For Exam: osteo
05/12/25 15:00
Electrocardiogram (*1) Urgent
Reason for Study: QTc Monitoring
EKG- Treatment ONCE
05/12/25 15:09
CRP [C-Reactive Protein] Urgent
Complete Blood Count/With Diff Urgent
Comprehensive Metabolic Panel Urgent
ESR [Erythrocyte Sed Rate] Urgent
05/12/25 15:20
Acetaminophen [Tylenol] 650 mg PO NOW STA
Diphenhydramine [Benadryl] 12.5 mg IV NOW STA
Ondansetron Injectable [Zofran] 4 mg IV NOW STA
05/12/25 17:14
Hemodialysis treatment As Directed
Treatment date:: 05/13/25
Treatment type: Hemodialysis
Ultrafiltration (kg): 2
Treatment time (duration): 3 hours 30 minutes
Use dialysis access:: AVF
Dialyzer:: Optiflux 160
Blood flow rate minimum: 350
Blood flow rate maximum: 400
Dialysis flow rate: 600 mL/min
Dialysate temperature: 35 degrees Celsius
Sodium (Na): 140
Potassium (K): 2
Calcium (Ca): 2.5
Bicarbonate (HCO3): 35
05/12/25 17:38
Morphine Sulfate 2 mg IV NOW STA
05/12/25 17:40
Admit/Transfer Patient As Directed
Co-Sign Provider:
Level of Care: Inpatient admission
Assign to:: Medical/Surgical
Physician / Group: Tijerina
Diagnosis: Osteomyelitis
Reason for Hospitalization: IV abx
Expected length of stay greater than two midnights?: Yes
ELOS- Estimated Length of Stay in days: 3
I certify the patient meets the requirements for IP care: Yes
05/12/25 17:41
PRN Pain Medication Management As Directed
May give lesser potent ordered pain med per pt: Yes
preference::
Protocol:: Medication orders for pain may be administered in a
manner that supports deferring to patient preference
when the pt is:
- Requesting an ordered lesser potent pain medication.
Least to most potent pain medications are defined
as: acetaminophen < NSAID < tramadol < opioids
(morphine, oxycodone, hydromorphone).
- Requesting a lesser dose of the same medication IF
ORDERED.
- Requesting a less intrusive route of administration
if both routes are prescribed by the provider (PO <
IV).
05/12/25 17:42
Code Status As Directed
Resuscitation Status: Full Code
05/12/25 17:56
Wound Culture [Wound/Abscess/Other Culture] Urgent
VAISHALI Source: Abscess
Specimen Description:
Date Specimen was Collected: 05/12/25
Time Specimen was Collected: 22:18
Comment: Left 2nd Toe
05/12/25 19:30
Acetaminophen [Tylenol] 650 mg PO Q4HPRN PRN
Dextrose 50%-Water [Dextrose 50% Syringe] 12.5 grams IV [id number] PRN
Glucagon [GlucaGen] 1 mg IM PRN PRN
Metoclopramide [Reglan] 5 mg PO Q8HPRN PRN nausea
Morphine Sulfate 2 mg IV Q4HPRN PRN
Oxycodone [Roxicodone] 5 mg PO Q4HPRN PRN
Pt's Own Ins. Pump Aspart [PT'S OWN INSULIN PUMP - NovoLOG] See Dose Instructions SC PRN PRN
VANCOMYCIN Pharmacy to Dose [VANCOCIN Pharmacy to Dose] 1 each Pharmacy To Prepare [Call Pharmacy To Prepare] 0 ml IV PER PROTOCOL
05/12/25 19:30
Diabetes Management by Nurse Practitioner Routine
Consulting Provider: Giuliana Bailey
Was provider already notified?: Yes
NEPHROLOGY CONSULT Routine
Consulting Provider: Arnaldo Lindsey
Was physician already notified: Yes
PODIATRY CONSULT Routine
Consulting Provider: Neftali Zepeda
Was physician already notified: Yes
WOUND/OSTOMY CONSULT Routine
Reason for Consult: foot wounds
Activity As Directed
Activity Level: Out of Bed-Early Mobility
With Assistance
Bedside Glucose Monitoring As Directed
Frequency: AC&HS
I&O [Intake/ Output] As Directed
Frequency: q12h
Vital Signs As Directed
Frequency: Per unit guidelines
Weight As Directed
Frequency: Daily
Smoking Cessation Counseling [RESP] Routine
DX Deep Vein Thrombosis Video Routine
05/12/25 20:00
Carvedilol [Coreg] 25 mg PO BID
Pantoprazole [Protonix] 40 mg PO BID
Piperacillin/Tazo 2.25 Gram [Zosyn] 2.25 grams in 50 ml IV Q8H
05/12/25 22:00
Buprenorphine [Subutex] 4 mg SL TID
Gabapentin [Neurontin] 100 mg PO HS
Pt's Own Ins. Pump Aspart [PT'S OWN INSULIN PUMP - NovoLOG] See Dose Instructions SC ACHS
05/13/25 00:00
Heparin 5,000 units SC Q8
05/13/25 06:00
Glycohemoglobin (HgbA1c) IN AM
05/13/25 07:00
Complete Blood Count/No Diff Urgent
Electrolytes Urgent
Comment: pre-Hemodialysis lab, to be drawn by HD nurse
Intact PTH Includes Calcium Urgent
Comment: pre-Hemodialysis lab, to be drawn by HD nurse
Phosphorus Urgent
Comment: pre-Hemodialysis lab, to be drawn by HD nurse
05/13/25 08:00
Albumin Human 25% 50 ml [Flexbumin 25% For Hemodialysis] 12.5 grams IV HD-Q1HPRN PRN
Mannitol 25% 12.5 grams IV HD-Q1HPRN PRN
Sodium Chloride [Sodium Chloride 4 Meq/ml For Hemodialysis] 10 ml IV HD-Q1HPRN PRN
Abnormal Lab Results
05/12/25
15:09
RBC 4.31 L 10^6/uL
(4.70-6.10)
Hgb 12.0 L g/dL
(13.0-18.0)
Hct 37.9 L %
(39.0-52.0)
MCHC 31.7 L g/dL
(33.0-37.0)
RDW 16.5 H %
(11.5-14.5)
Abs Immat Gran (auto) 0.1 H 10^3/uL
(0-0.05)
Absolute Lymphs (auto) 0.8 L 10^3/uL
(1.2-3.4)
Immature Gran % 1.0 H %
(0-0.5)
Lymphocytes % 12.8 L %
(20.5-51.1)
Monocytes % 10.1 H %
(1.7-9.3)
ESR 53 H mm/hour
(0-20)
Sodium 132 L mmol/L
(135-145)
Potassium 5.4 H mmol/L
(3.5-5.1)
Chloride 92 L mmol/L
(98-107)
Carbon Dioxide 33 H mmol/L
(22-30)
BUN 49 H mg/dl
(9-20)
Creatinine 5.4 H* mg/dL
(0.7-1.3)
Glucose 335 H mg/dl
(70-99)
Alkaline Phosphatase 184 H U/L
(38-126)
C-Reactive Protein 54.90 H mg/L
(0.0-10.00)
05/12/25 15:09
05/12/25 15:09
Vital Signs
Initial and Last Documented VS:
Initial Vital Signs
Temp Pulse Resp BP Pulse Ox
98.4 F 103 20 191/121 99
05/12/25 13:38 05/12/25 13:38 05/12/25 13:38 05/12/25 13:38 05/12/25 13:38
Last Documented Vital Signs
Temp Pulse Resp BP Pulse Ox
97.5 F 97 18 116/78 97
05/12/25 19:30 05/12/25 19:30 05/12/25 19:30 05/12/25 19:30 05/12/25 19:30
MDM/Problems Addressed
MDM/Problems Addressed:
X-rays are diagnostic for osteomyelitis with severe bone mineral density loss and likely fracture, he is clinically well thus no indication for empiric antibiotics will admit for further management
*Pulse Oximetry
SaO2: 94
Oxygen Mode of Delivery: Room air
Patient hypoxic: no
*Critical Care Note
Total Time (30-74mins, 75-104mins- exclusive of procedures): Not Applicable
ED Attending Note
-
Portions of this chart may have been created with voice recognition software.� Occasional wrong word or��sound alike� substitutions may have occurred due to the inherent limitations of voice recognition software.
Discharge Plan
Departure
Patient Disposition: Admit
Date of Disposition: 05/12/25
Time of Disposition: 16:02
Admit to: Med/Surg
Presentation/result/management discussed w/ accepting MD/DO: Hospitalist
Patient with high blood pressure during this ER visit?: No
Discharge Problem:
Osteomyelitis of second toe of left foot
Interventions
Interventions:
*Risk Screen - Suicide Last Done: 05/12/25 13:38
*General Assessment Last Done: 05/12/25 14:32
*Neglect/Abuse Screening Last Done: 05/12/25 13:38
*ED- Fall Risk Assessment Last Done: 05/12/25 14:32
*ED COVID-19 Vaccine History Last Done: 05/12/25 14:32
*Nursing Disposition Last Done: 05/12/25 19:30
ED-Skin Assessment Last Done: 05/12/25 15:12
Discharge Date and Time
Discharge Date/Time: 05/12/25 19:30
[2025-05-12 15:22] LABS: Hematocrit 37.9 % (39.0-52.0); Hemoglobin 12.0 g/dL (13.0-18.0); Mean Corp Hgb Conc. 31.7 g/dL (33.0-37.0); Mean Corpuscular Volume 87.9 fL (80.0-94.0); Nucleated Red Blood Cells % 0 % (-); Platelet Count 256 10^3/uL (130-400); Red Cell Dist. Width 16.5 % (11.5-14.5)
[2025-05-12] MEDS: ZOFRAN 4 MG IV (15:34)
[2025-05-12 15:40] LABS: ALT (SGPT) < 10 U/L (0-50); AST (SGOT) 17 U/L (17-59); Albumin 3.7 g/dl (3.5-5.0); Alkaline Phosphatase 184 U/L (38-126); Blood Urea Nitrogen 49 mg/dl (9-20); Calcium 10.2 mg/dl (8.4-10.2); Carbon Dioxide 33 mmol/L (22-30); Chloride 92 mmol/L (98-107); Estimated Creatinine Clearance 17 ml/min; Glucose 335 mg/dl (70-99); Potassium 5.4 mmol/L (3.5-5.1); Sodium 132 mmol/L (135-145); Total Protein 7.8 g/dl (6.3-8.2); eGFR 13.39
[2025-05-12 15:41] LABS: C-Reactive Protein 54.90 mg/L (0.0-10.00)
[2025-05-12] MEDS: BENADRYL 12.5 MG IV (15:41)
[2025-05-12] MEDS: TYLENOL 650 MG PO (15:45)
--- NOTE | 2025-05-12 16:05 | HPS.HSE ---
Addendum entered and electronically signed by Dez Tijerina MD 05/12/25 18:04:
see my upate note for details
Original Note:
Family Physician
-
Family Physician: Casper Arroyo
Chief Complaint
-
Left Foot Wounds
History of Present Illness
Patient is a 35 y/o male past medical history of ESRD on HD, DM-I, Substance Abuse Disorder and Hypertension who presents with left wounds and concern for osteomyelitis. Patient has been following at the wound care center. Patient notes during a
dressing change about a week ago he felt as though 'bone is broken'. He was seen at the wound care center today and sent to the emergency department for evalution. He denies and fevers, sweats or chills.
Medical History
Past Medical History
Past Medical History: Reports Other
Additional Past Medical History:
DM-I (Dx age 13)
PEA Arrest (March 2024)
ESRD on HD
Chronic Metabolic Acidosis
Hypertension
Gastroparesis
Chronic Abdominal Pain
Substance Use Disorder
Anxiety / Depression
Medical Non-Compliance
Blindness
Past Surgical History: Reports Other
Additional Past Surgical History:
LUE AVF
Appendectomy
PD Catheter placed / removed
Social History
Tobacco: Smoker (Current every day smoker. 1/2 ppd for total of 20 pack years.)
Alcohol: Occasional (Drank 1/2 bottle of rum and 'some' whiskey in a few hours this evening.)
Drug: None
Family History
Family History: Asthma
Allergies / Home Medications
Allergies reflects when Allergies were last updated in [facility].
Home Medications with original date entered in [facility]
Allergy/Medication List:
Allergies
Allergy/AdvReac Type Severity Reaction Status Date / Time
shellfish derived Allergy Hives Verified 05/12/25 13:38
Home Medications
Patient Own Insulin Pump 0 units SC .VIA PUMP diabetes ##0 07/04/24
buprenorphine 4 mg-naloxone 1 mg sublingual film 1 film sublingual TID SUBSTANCE USE DISORDER 08/17/24
pantoprazole 40 mg tablet,delayed release 40 mg PO BID Gastrointestinal Issue 08/17/24
metoclopramide HCl 10 mg tablet (Reglan) 5 mg (1/2 x 10 mg) PO Q8HPRN PRN nausea #0 tabs 08/25/24
acetaminophen 500 mg tablet (Acetaminophen Extra Strength) 1,000 mg PO Q6HPRN PRN mild pain 05/12/25
carvedilol 25 mg tablet 25 mg PO BID 05/12/25
gabapentin 100 mg capsule 100 mg PO HS 05/12/25
Review of Systems
-
A 12 point ROS was completed and negative except as noted: Yes
Constitutional: Denies Fever
Respiratory: Denies Cough or Trouble Breathing
Cardiac: Denies Chest Pain or Palpitations
Abdomen/GI: Reports Nausea (Earlier today); Denies Abdominal Pain or Vomiting
Physical Exam
Vital Signs
Vital Signs
Temp Pulse Resp BP Pulse Ox
99.0 F 102 18 134/80 97
05/12/25 15:01 05/12/25 15:01 05/12/25 15:01 05/12/25 15:01 05/12/25 15:01
Physical Exam
General: Comfortable and Conversant
HEENT: Anicteric and Moist mucous membranes
Respiratory: Clear and Non Labored Respirations
Cardiac: S1/S2 and Regular Rhythm; No Tachycardia
GI: Soft and Non Tender
Rectal: Deferred by Provider
Skin: Other (Multiple superficial wounds on arms and legs. Left second toe appears broken with possible abscess on the dorsal aspect)
Neuro: Awake, Alert, Oriented and Nonfocal/grossly intact
Psych: Calm
Laboratory Results
-
05/12/25 15:09
05/12/25 15:09
Laboratory Results
Total Bilirubin 0.9 mg/dl (0.2-1.3) 05/12/25 15:09
AST 17 U/L (17-59) 05/12/25 15:09
ALT < 10 U/L (0-50) 05/12/25 15:09
Alkaline Phosphatase 184 U/L (38-126) H 05/12/25 15:09
Data Reviewed
-
Diagnostic Radiology: Report Reviewed by me
Lab Data: Labs Reviewed by me
Impression/Plan
-
Left 2nd Toe Soft Tissue Infection with Underlying Osteomyelitis
-Consult Podiatry - Patient will likely require amputation
-Consult Wound Care
-Start Vancomycin and Zosyn
ESRD on HD MoWeFr
-Consult Nephrology
Diabetes Mellitus, Type I
-Continue Inuslin Pump
-Consult Diabetic AUTOMATION QA LEAD for insulin recommendations and help manage insulin pump
Essential Hypertension
-Continue Coreg
Gastroparesis
-Continue Protonix and Reglan
Substance Abuse Disorder
-Continue buprenorphine
Tobacco Use Disorder
-Encourage smoking cessation
-Offered nicotine patch which patient declined
DVT proph: SC Heparin
Code Status:Full Code
--- NOTE | 2025-05-12 16:53 | W.CON.NEPH ---
Consultation
-
Date/Time Consultation Requested: 05/12/2025 4 PM
Date/Time Consultation Performed: 05/12/2025 5 PM
Requesting Provider: Dr. Rodriguez
Performing Provider: Dr. Lindsey
Reason for Consultation: ESRD
Medical History
-
Chief Complaint: ESRD
History of Present Illness:
The patient is a 34-year-old man with diabetes mellitus type 1 on insulin pump, blindness, and end-stage renal disease on hemodialysis MWF. In 2023 he had multiple admissions for pain and opiate seeking. He was last in in august 2024. Since
then he has apparently been stable with outpatient care. He says that he has been compliant with OP dialysis and has had no issues. His diabetes has been stable on insulin pump. His hypertension is stable on coreg. He came to the hospital because of
right 2nd toe pain. He cannot move the toe. He believes it is broken. XR of the toe in the ER demonstrated osteomyelitis. He is due for HD tomorrow.
He notes that over time he has develop many skin ulcers on the hands, legs, and feet. They are poorly healing.
Past Medical History
end-stage renal disease on hemodialysis
PE
constipation
CHF
pleural effusions
depression/ anxiety
polysubstance abuse
Diabetes mellitus type I
Left upper extremity AV fistula revision for ulcers
Pulmonary hypertension
pericardial effusion with impending cardiac tamponade had pericardiocentesis 385 cc exudative fluid on 03/31, history of right pleural effusion status post thoracentesis 04/04/2024, Hx cardiac arrest Hx PE, ESRD on HD Friday,,
paroxysmal A-fib, splenic infarct, diabetes mellitus
biliary stent 2019
Past Surgical History: Other (LUE AVF Appendectomy PD Catheter placed / removed)
Social History
Tobacco: Smoker
Alcohol: Occasional
Drug: Other (h/o polysub abuse)
Family History
Family History: Not Pertinent
Allergies / Home Medications
Allergy/AdvReac Type Severity Reaction Status Date / Time
shellfish derived Allergy Hives Verified 05/12/25 13:38
�Medication �Instructions �Recorded �Confirmed �Type
Patient Own Insulin Pump 0 units SC .VIA PUMP diabetes ##0 07/04/24 05/12/25 Rx
buprenorphine 4 mg-naloxone 1 mg 1 film sublingual TID SUBSTANCE 08/17/24 05/12/25 History
sublingual film USE DISORDER
pantoprazole 40 mg tablet,delayed 40 mg PO BID Gastrointestinal Issue 08/17/24 05/12/25 History
release
metoclopramide HCl 10 mg tablet 5 mg (1/2 x 10 mg) PO Q8HPRN PRN 08/25/24 05/12/25 Rx
(Reglan) nausea #0 tabs
acetaminophen 500 mg tablet 1,000 mg PO Q6HPRN PRN mild pain 05/12/25 05/12/25 History
(Acetaminophen Extra Strength)
carvedilol 25 mg tablet 25 mg PO BID 05/12/25 05/12/25 History
gabapentin 100 mg capsule 100 mg PO HS 05/12/25 05/12/25 History
Review of Systems
-
no CP/SOB
right toe pain
peripheral neuropathy
All other systems: Negative unless noted
Physical Exam
Vital Signs
Vital Signs
Temp Pulse Resp BP Pulse Ox
99.0 F 90 20 123/81 96
05/12/25 15:01 05/12/25 16:30 05/12/25 15:30 05/12/25 16:00 05/12/25 16:30
Lab Results
WBC 6.0 10^3/uL (4.8-10.8) 05/12/25 15:09
RBC 4.31 10^6/uL (4.70-6.10) L 05/12/25 15:09
Hgb 12.0 g/dL (13.0-18.0) L 05/12/25 15:09
Hct 37.9 % (39.0-52.0) L 05/12/25 15:09
Plt Count 256 10^3/uL (130-400) 05/12/25 15:09
Sodium 132 mmol/L (135-145) L 05/12/25 15:09
Potassium 5.4 mmol/L (3.5-5.1) H 05/12/25 15:09
Chloride 92 mmol/L (98-107) L 05/12/25 15:09
Carbon Dioxide 33 mmol/L (22-30) H 05/12/25 15:09
BUN 49 mg/dl (9-20) H 05/12/25 15:09
Creatinine 5.4 mg/dL (0.7-1.3) H* 05/12/25 15:09
eGFR 13.39 05/12/25 15:09
Glucose 335 mg/dl (70-99) H 05/12/25 15:09
Calcium 10.2 mg/dl (8.4-10.2) 05/12/25 15:09
Albumin 3.7 g/dl (3.5-5.0) 05/12/25 15:09
Laboratory Tests
08/25/24 08/25/24
04:39 13:25
Hgb 8.2 L
Sodium 131 L
Potassium 4.8
Physical Exam
Patient is awake alert oriented and in no distress. Mood and affect were pleasant, insight and judgment were good. Pupils are equal round and reactive to light, extraocular movements are intact, sclera were anicteric. Hearing was normal, ears and
nose are intact. Oropharynx was clear. Neck was supple with trachea midline and no thyromegaly. Heart was regular rate and rhythm without rubs. Lower extremities without edema. Lungs were clear to auscultation bilaterally and with normal
excursion. Abdomen was soft, nontender, with normal active bowel sounds, and no hepatosplenomegaly. Skin was without rash and with normal turgor. scattered ulcers of varying sizes up to 1cm in width and depth up to full dermis are noted on hands,
legs, and feet bilaterally.
Data Reviewed
-
Radiology: Report Reviewed by me (Toe x-ray 05/12/2025 soft tissue and bone demineralization and destruction second distal right phalanx)
Medical Tests (Nuc Med, Echo etc): Image Personally Visualized and interpreted (EKG 05/12/2025 by my reading normal sinus rhythm anterior T wave abnormality)
Labs: Labs Reviewed by me
Old Records: Reviewed
Assessment/Plan
-
Impression:
ESRD F [place]
left UE AVF
SM
Hyperkalemia
Hyponatremia
Chronic Abdominal Pain / Gastroparesis
Pulmonary hypertension
Polysubstance abuse
Anxiety
History of biliary drain
Anemia
Right pleural effusion--s/p R thoracentesis for pleural effusion with 1.8L transudate 02/17/24
History of pericardial effusion requiring pericardial drain
multiple skin ulcers
Plan:
HD tomorrow
PETE for anemia with HD
check PTH, phos
he likely has severe peripheral arterial disease. Vascular opinion may be useful
--- NOTE | 2025-05-12 17:31 | W.PN.UPDATE ---
Update Note
Progress Note Update
Seen and examined by me independently in collaboration with the nurse practitioner Dimitri.
Past medical history/social history/medication/allergies reviewed.
Lab data and imaging data reviewed.
35-year-old gentleman with type 1 diabetes mellitus on insulin pump with end-stage renal disease on hemodialysis presents with lower extremity wounds especially left second toe. He was referred to wound care center by his dialysis MD. He was
reviewed by wound care doctor today and referred to ER for evaluation of his left second toe.
Has been having issues with skin wounds. They appear as a blister which burst open and then it takes a long time for it to heal. Most of his wounds are in the lower extremities some and on the dorsum of the hands. Denies any skin popping or use
of [place] drug. Had a prior history of drug use and he is on drug rehab program and gets Suboxone prescribed. He denies any use of drugs currently. Denies any primary skin issues.
The second toe wound became chronic and at some point he had a crack in his second toe. Clinically his wounds are multiple with clean base. The second toe is red swollen. The anterior forefoot close to the second third fourth metatarsal regions
are red and warm x-ray shows second toe osteomyelitis. Prior MRSA screens were positive.
He is on insulin pump for the last 4 years and says blood sugars are pretty good control but today the random venous blood sugar was 335. He says his use of insulin are as high as 70 units/day. Check hemoglobin A1c. Consult diabetic nurse
practitioner.
With best regards the second toe wound with the osteomyelitis of the second toe as well as superimposed cellulitis will start on empirical Zosyn and vancomycin. Consult marine diesel mechanic.
Consult nephrology for dialysis support.
[2025-05-12] MEDS: MORPHINE SULFATE 2 MG IV ×2 (17:59→22:13)
[2025-05-12 19:52] LABS: Glucose - Point of Care 174 mg/dl (70-99)
--- NOTE | 2025-05-12 20:06 | PHA.VAN.IN ---
Assessment
- Assessment
Renal Function: Patient has ESRD, on chronic Hemodialysis
Hemodialysis Schedule: MWF
Concomitant Antimicrobials: ZOSYN
- Previous Dosing Experience
Previous Regimen: DOSING BY RANDOM LEVELS
Date of Regimen: 04/03/24
Provided Trough of: UNKNOWN
Provided AUC of: UNKNOWN
Patient's SCR is: Elevated compared to previous dosing experience (04/03/24 SCR = 4.1)
Patient's weight is: Decreased compared to previous dosing experience (04/03/24 WT = 66.5KG)
Plan
- Plan
Initial / Loading Dose: 1500MG
Maintenance Regimen: DOSING BY RANDOM LEVELS
Monitoring: RANDOM VANCOMYCIN LEVEL 05/13/25 AM
Pharmacokinetics Vancomycin I
- -
Patient Age: 35
Patient Sex: Male
Vancomycin Day #: 1
Indication: Skin And Soft Tissue (LE WOUNDS/OM)
Requesting Provider: KARON
Height / Weight:
Height 5 ft 6 in
Actual Weight 63 kg
Pertinent Past Medical History: DM
- Vital Signs / Lab Results
Temp Pulse Resp BP Pulse Ox
97.5 F 97 18 116/78 97
05/12/25 19:30 05/12/25 19:30 05/12/25 19:30 05/12/25 19:30 05/12/25 19:30
Lab Results - Hematology
05/12/25
15:09
WBC 6.0
Lab Results - Chemistry
05/12/25
15:09
BUN 49 H
Creatinine 5.4 H*
Estimated Creat Clear 17
Albumin 3.7
[2025-05-12] MEDS: ZOSYN 50 IV (20:33)
[2025-05-12] MEDS: FLUSH (NSS) 2 FLUSH IV ×2 (20:35→22:14)
[2025-05-12] MEDS: VANCOCIN 530 MG IV (21:30)
[2025-05-12] MEDS: NEURONTIN 100 MG PO (21:40)
[2025-05-12] MEDS: PROTONIX 40 MG PO (21:41)
[2025-05-12] MEDS: COREG 25 MG PO (21:41)
[2025-05-12 21:58] LABS: Glucose - Point of Care 167 mg/dl (70-99)
[2025-05-12] MEDS: PT'S OWN INSULIN PUMP - NovoLOG SC (23:25)
[2025-05-12] MEDS: BENADRYL 25 MG PO (23:35)
[2025-05-12] MEDS: HEPARIN 5000 UNITS SC (23:36)
[2025-05-12] MEDS: SUBUTEX 4 MG SL (23:36)
[2025-05-13] MEDS: ZOSYN 50 IV (03:37)
[2025-05-13] MEDS: MORPHINE SULFATE 2 MG IV ×5 (03:38→22:14)
--- NOTE | 2025-05-13 04:38 | PTCARENOTE ---
Patient received from ED via stretcher and moved over to bed Independently. He was oriented to room and surroundings. Wound care as documented. Wound CTX to lab. IV Abx per order. Refused Subutex, CLINICAL PROJECT LEADER, aware. c/o itching. Benadryl per order.
Patient is sleeping most of shift. He is easily arousable. See nursing assessment for physical findings.
[2025-05-13] MEDS: BENADRYL 12.5 MG IV (04:45)
[2025-05-13 06:00] VITALS: BMI 22.2
[2025-05-13 06:07] LABS: Glucose - Point of Care 112 mg/dl (70-99)
[2025-05-13 07:34] LABS: Glucose - Point of Care 117 mg/dl (70-99)
[2025-05-13] MEDS: COREG PO (07:43)
--- NOTE | 2025-05-13 07:43 | PN.DE.MGMTRT ---
Insulin Management
- -
05/13/2025: Diabetes Insulin Pump Management Consult:
35 year old male who presented to the ED from wound care center with multiple chronic wounds/ulcers, left second toe swelling and pain. Patient reports he developed wound on his left foot when he wore tight fitting shoes. The second toe then
became more swollen and red. He felt discomfort. He noted possible toe fracture as the bones felt unconnected. He saw wound care center for the first time May 12 who therefore sent him to the hospital. Foot x-ray shows changes concerning for
distal left second toe osteomyelitis in probable fracture mid phalanx. Pt is well known to Diabetes team from recurrent hospitalizations due to DKA, last hospital admission: 07/03/24 - 07/04/24.
PMH: ETOH use disorder, recurrent DKA, ESRD on HD (MWF), T1DM for 18 years. Uses Medtronic 770 pump with NovoLog insulin and Guardian sensor.
Last A1C 7.4% on 06/11/24. Cr 5.4, eGFR 13.39 States he recently changed Endo offices and his 1st appt with his Endo is in August.
Patient awake, alert and oriented, sitting up in bed, on HD able to discuss diabetes mgt. Pt doing well, tolerating diet.
Currently on his insulin pump. Glucose stable and in range, was 174 pre-dinner, 167 @ HS, and fasting 117 this AM.
Pump settings:
Basal carb ratio Correction Target
12am .25 10 50 120-140
4am .425 10 50 120-140
8am .35 10 50 120-140
Total 24 hr basal 8.3 units. Active insulin 5 hours. update A1C
Will continue insulin pump without changes to current settings.
Discussed with patient and nurse.
Diabetes History
- -
Type of Diabetes: 1
Pre-Admission Diabetes Regimen
05/12/25
15:09
Creatinine 5.4 H*
Insulin Pump Settings
IP Diabetes Regimen
05/12/25 05/12/25 05/12/25
15:09 19:50 21:57
Glucose 335 H
POC Glucose 174 H 167 H
05/13/25 05/13/25
06:06 07:32
Glucose
POC Glucose 112 H 117 H
Patient Education
[2025-05-13 07:45] VITALS: BP 101/64
[2025-05-13] MEDS: HEPARIN 5000 UNITS SC ×2 (08:20→22:13)
[2025-05-13] MEDS: PROTONIX 40 MG PO ×2 (08:21→20:51)
[2025-05-13] MEDS: REGLAN 5 MG PO (08:21)
[2025-05-13] MEDS: SUBUTEX SL ×3 (08:23→22:08)
[2025-05-13] MEDS: PT'S OWN INSULIN PUMP - NovoLOG SC ×2 (08:24→17:03)
--- NOTE | 2025-05-13 09:05 | W.PN.HOSP.TC ---
Today's Communication/Plan
-
Continue with antibiotics
Consult ID
Obtain arterial ultrasound lower extremity
Add as needed Benadryl
Assessment / Plan
Assessment / Plan
Left 2nd Toe Soft Tissue Infection with Underlying Osteomyelitis
-Consult Podiatry - Patient will likely require amputation
-Consult Wound Care
- Continue vancomycin and Zosyn
- Obtain arterial ultrasound of lower extremity
- Consult ID
Skin lesions with ulcerations and scabbing
Denies any skin popping or injecting into soft tissue.
He also has associated constant itching generalized
One concern is for calciphylaxis. He would require skin biopsy.
Check iPTH
ESRD on HD MoWeFr
-Consult Nephrology
Diabetes Mellitus, Type I
-Continue Inuslin Pump
-Consult Diabetic BEHAVIORAL PEDIATRICIAN for insulin recommendations and help manage insulin pump
Essential Hypertension
-Continue Coreg
Gastroparesis
-Continue Protonix and Reglan
Substance Abuse Disorder
-Continue buprenorphine
Tobacco Use Disorder
-Encourage smoking cessation
-Offered nicotine patch which patient declined
DVT proph: SC Heparin
Code Status:Full Code
Discussed with adjunct writing instructor this morning-plan for or tomorrow
Discussed with RN
Total time spent on today's encounter was 52 minutes which included time spent in counseling the patient/family regarding diagnosis and treatment plan as listed above, goals of care, and symptom management. Case was discussed with nursing staff,
specialists, and care coordinators/case management. All labs and imaging personally reviewed by me. Remainder the time spent in detailed review of previous records, lab data, imaging, and other medical provider documentation.
Anticipated Discharge: > 48 hours
Subjective/Interval History
-
Date of Service: May 13, 2025
Complaints of itchiness. It has been present for the last 3 months. He feels itchy all over. Again he denies any skin popping or injecting into the soft tissues.
No overnight events.
No fever or chills.
No nausea vomiting.
Denies shortness of breath or chest pain.
Objective Data
-
Labs:
Laboratory Results
05/13/25
07:00
WBC Pending
Hgb Pending
Hct Pending
Plt Count Pending
Sodium Pending
Potassium Pending
Chloride Pending
Carbon Dioxide Pending
Calcium Pending
Vital Signs:
Vital Signs
Temp Pulse Resp BP Pulse Ox
97.7 F 83 18 113/69 99
05/12/25 23:00 05/12/25 23:00 05/12/25 23:00 05/12/25 23:00 05/12/25 23:00
I&O
05/12/25 05/13/25 05/14/25
06:59 06:59 06:59
Intake Total 790 / 790
Balance 790 / 790
Physical Exam
-
General: Comfortable
Respiratory: Clear to Auscultation and Non Labored Respirations; Negative Accessory Resp Muscle Use
Cardiac: Regular Rhythm and S1/S2
GI: Soft
Skin: Other (Skin ulcerations with scabs present in the lower extremity and bilateral distal upper extremity. Left second toe as yesterday.)
Neuro: AO x 3
Psych: Calm
Data Reviewed
-
Labs: Labs Reviewed by me
[2025-05-13] MEDS: BENADRYL 25 MG PO (09:22)
[2025-05-13 09:45] VITALS: BP 101/64
--- NOTE | 2025-05-13 09:57 | WOUNDNOTE ---
R POSTERIOR LOWER LEG
--- NOTE | 2025-05-13 09:57 | WOUNDNOTE ---
L MEDIAL POSTERIOR LOWER LEG
--- NOTE | 2025-05-13 09:58 | WOUNDNOTE ---
L 2ND AND 4TH TOE DORSAL
--- NOTE | 2025-05-13 09:58 | WOUNDNOTE ---
L PLANTAR 2ND TOE
--- NOTE | 2025-05-13 09:59 | WOUNDNOTE ---
L KNEE AND LOWER LEG
--- NOTE | 2025-05-13 10:00 | WOUNDNOTE ---
POSTERIOR LEGS AND HEELS
--- NOTE | 2025-05-13 10:01 | WOUNDNOTE ---
WON RN note: Patient admitted with osteomyelitis of L 2nd toe.
See H&P for complete history. Lives with parents.
PMH: 35-year-old male with history of end-stage renal disease on dialysis, insulin-dependent diabetes, CHF, hypertension, and polysubstance abuse presents to the emergency department for evaluation of wounds to the left second toe. Numerous wounds
to bilateral lower extremities, has been seeing outpatient wound care but states that while changing her dressing approxi-1 week ago he felt as though 'bone is broken' in his left 2nd toe.
Wound Location and type/assessment: Patient admitted with: multiple scabbed areas on dorsal hands, legs and feet, few are open, draining small amt of serosanguineous drainage, no odor. Patient states his legs itch and admits to scratching them
causing bleeding. L heel with healing ulcer, unsure if pressure related or same reason for leg ulcers. R lateral foot with full thickness ulcer, scant drainage. Suspect all from chronic past drug abuse, diabetes and renal failure. Patient able to
turn self to sides, sacrum is intact. L 2nd toe for amputation per Dr. Zepeda on 05/14/25.
Appetite: Good.
Pressure redistribution devices in place: ON versa care air bed. Air cushion on pillow placed under calves. Pressure ulcer prevention measures reviewed with patient, states he understands.
Plan: Xeroform and dry dressings applied to all open wounds. L 2nd toe per Podiatry.
Will confirm orders with hospitalist and updated nurse María.
Updated care plan and will follow as needed.
Note to case management of equipment requested for discharge: VN if needed.
Recommend follow up with Podiatry.
--- NOTE | 2025-05-13 10:17 | PN.CDI ---
CDI
- -
CDI:
Physician Documentation Request
Admit Date: 05/12/25 18:09
Dear Doctor Breezy,
Patient is admitted for Left 2nd Toe Soft Tissue Infection with Underlying Osteomyelitis
Please clarify which of the following accurately represents the acuity of the osteomyelitis
____ Acute
Chronic
____ Other
Use of terms such as suspected, likely, concern for, or probable (associated with a specific diagnosis that is being evaluated, monitored, or treated as if it exists) are acceptable and can be coded in the inpatient setting, when documented at the
time of discharge.
Thank you,
Summer Lassiter RN, BSN
CDI Specialist
tiger text
Please use your independent medical judgment in providing your response.
--- NOTE | 2025-05-13 11:22 | W.CS.POD ---
Consult Summary - Podiatry
-
35 yo male presented to the hosp with LT foot redness and superficial skin scabs and LT 2nd toe ulcer with swelling, HE has been on dialysis for 5 yrs now. He is type 2 diabetic , HE has superficial skin scabs on both lower legs and upper body as
well, HE says that he noticed these for 3 mos now, has itching sometimes.
HE is in no acute distress, no fever, chills. He is on IV abx WBC count is WNL
Xrays LT foot 2nd toe middle and distal phalanx bone resolved, osteomyelitic changes
Exam : B/L pedal pulses are palpable
Intact gross and protective sensation B/L feet.
Left 2nd toe plantar aspect superficial ulceration with minimal edema and erythema noted.
No red streaking up the leg, No signs of any abscess noted
Multiple superficial skin scabs both lower legs, no local erythema, no active drainage noted
Xrays positive for LT 2nd toe distal phalanx osteomyelitis.
A/P: LT foot cellultis
LT 2nd toe osteomyelitis.
ESRD on hemodialysis
multiple Skin blisters lower legs and arms
Plan : Cont IV abx
Will order vascular studies before proceeding with LT 2nd partial toe amputation
D/W hosp service about the plan
Will schedule 05/14/2025 for LT 2nd partial toe amputation
--- NOTE | 2025-05-13 11:26 | CON.ID ---
Consultation
-
Date/Time Consultation Requested: May 13, 2025 0901
Date/Time Consultation Performed: May 13, 2025 1130
Requesting Provider: Dr. Dez Tijerina
Performing Provider: Dr. Sera Daniels
Reason for Consultation: Foot infection
Chief Complaint / Past History
Chief Complaint
Left second toe pain
History of Present Illness
35-year-old male with history of diabetes mellitus type 1, end-stage renal disease on hemodialysis, suspected bullous pemphigus with multiple chronic wounds/ulcers who presented to the ED from wound care center on May 12 due to left second toe
swelling and pain. Patient reports he developed wound on his left foot when he wore tight fitting shoes. The second toe then became more swollen and red. He felt discomfort. He noted possible toe fracture as the bones felt unconnected. He saw
wound care center for the first time May 12 who therefore sent him to the hospital. He denies fevers or chills. Foot x-ray shows changes concerning for distal left second toe osteomyelitis in probable fracture mid phalanx. Arterial duplex result
pending. He is currently on vancomycin and Zosyn.
Past History
Additional Past Medical History:
Diabetes mellitus type 1
End-stage renal disease on hemodialysis via LUE AVF
Hypertension
Gastroparesis
Chronic abdominal pain
Bullous pemphigus
Chronic wounds
Anxiety/depression
Substance use disorder
History of PEA arrest March 2024
Blind
Appendectomy
Allergy History:
shellfish derived Allergy (Verified 05/12/25 13:38)
Hives
Medications Reviewed: Yes
Current Antibiotics:
Zosyn
Vancomycin
Social History
Tobacco: Smoker (Half pack per day)
Alcohol: Occasional
Family History
Family History: Not Pertinent
Review of Systems
Review of Systems
General: Negative Fever, Chills or Change in Appetite
HEENT: Negative Sinus Problems
Respiratory: Negative Dyspnea or Cough
Gasteroenterology: Negative Nausea, Vomiting or Diarrhea
Genital / Urological: Negative Flank Pain
Endocrine: Negative Weakness
All systems: All other systems were reviewed and were negative
Vital Signs
Temp Pulse Resp BP Pulse Ox
98.1 F 83 16 101/64 98
05/13/25 07:45 05/13/25 07:45 05/13/25 07:45 05/13/25 07:45 05/13/25 08:55
Physical Exam
Physical Exam
Constitutional: Chronically Ill
Eyes: No Conjunctival Hemorrhage and Sclera Anicteric
Cardiovascular: Regular Rate and S1/S2
Pulmonary: Clear
Gastrointestinal: Soft, Non Tender, Non Distended and Normal Bowel Sounds
Extremities: Negative Edema
Wound: Other (Reviewed wound photos: multiple ulcers on UE and LE. Left 2nd toe + erythema/edema, shallow wounds dorsally)
Neurological: AO x 3
Lab / Diagnostic Study Results
Abs Immat Gran (auto) 0.1 10^3/uL (0-0.05) H 05/12/25 15:09
Absolute Neuts (auto) 4.3 10^3/uL (1.4-6.5) 05/12/25 15:09
Absolute Lymphs (auto) 0.8 10^3/uL (1.2-3.4) L 05/12/25 15:09
Absolute Monos (auto) 0.6 10^3/uL (0.1-0.6) 05/12/25 15:09
Absolute Basos (auto) 0.0 10^3/uL (0-0.2) 05/12/25 15:09
Immature Gran % 1.0 % (0-0.5) H 05/12/25 15:09
Neutrophils % 72.3 % (42.2-75.2) 05/12/25 15:09
Lymphocytes % 12.8 % (20.5-51.1) L 05/12/25 15:09
Monocytes % 10.1 % (1.7-9.3) H 05/12/25 15:09
Eosinophils % 3.3 % (0-6) 05/12/25 15:09
Basophils % 0.5 % (0-2) 05/12/25 15:09
ESR 53 mm/hour (0-20) H 05/12/25 15:09
C-Reactive Protein 54.90 mg/L (0.0-10.00) H 05/12/25 15:09
Microbiology Results
Micro:
05/12/25 22:35 Wound Culture - Pending
Abscess Gram Stain - Preliminary
05/12/25 22:35 MRSA Screen - Pending
Nose
05/12/25 Left foot XRAY: Second digit soft tissue swelling. Severe osseous demineralization bony destruction involving the second distal phalanx, consistent with osteomyelitis. There is also partial destruction and possible pathologic fracture of the
second middle phalanx.
Assessment / Plan
# Left 2nd toe distal osteomyelitis
# Chronic blisters/ulcers
# DM1
# ESRD on HD via LUE fistula
#hx MRSA colonization
- For toe amp.
- Can continue Vancomycin through procedure.
- DC zosyn.
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
Diabetes mellitus type 1
End-stage renal disease on hemodialysis via LUE AVF
Hypertension
Gastroparesis
Chronic abdominal pain
Bullous pemphigus
Chronic wounds
Anxiety/depression
Substance use disorder
History of PEA arrest March 2024
Blind
Appendectomy
[2025-05-13 12:05] LABS: Glucose - Point of Care 225 mg/dl (70-99)
[2025-05-13] MEDS: PT'S OWN INSULIN PUMP - NovoLOG 3 UNIT SC (12:32)
[2025-05-13 12:41] LABS: Hematocrit 35.2 % (39.0-52.0); Hemoglobin 11.0 g/dL (13.0-18.0); Mean Corp Hgb Conc. 31.3 g/dL (33.0-37.0); Mean Corpuscular Volume 88.7 fL (80.0-94.0); Platelet Count 251 10^3/uL (130-400); Red Cell Dist. Width 16.7 % (11.5-14.5)
[2025-05-13] MEDS: ZOSYN IV (12:46)
[2025-05-13 12:59] LABS: Calcium 8.9 mg/dl (8.4-10.2); Carbon Dioxide 25 mmol/L (22-30); Chloride 95 mmol/L (98-107); Potassium 6.4 mmol/L (3.5-5.1); Sodium 128 mmol/L (135-145)
--- NOTE | 2025-05-13 13:29 | PHA.VAN.FU ---
Vancomycin Assessment / Plan
- Assessment
Hemodialysis Schedule: MWF
WBC's are: WNL
In the past 24 hrs, patient has been: Afebrile
- Assessment - Therapeutic Drug Monitoring
Random Level: Pre-HD on 05/13 30 (not sure how accurate level is)
- Dosing Plan
Dosing by Level: Re-dose today (500mg 05/13)
- Follow Up
Pharmacy will continue to follow.
Vancomycin Follow UP
- -
Patient Age: 35
Patient Sex: Male
Vancomycin Day #: 2
Indication: Skin And Soft Tissue (LE WOUNDS/OM)
Requesting Provider: KARON
Height / Weight:
Height 5 ft 6 in
Actual Weight 62.284 kg
Pertinent Past Medical History: DM
- Vital Signs / Lab Results
Temp Pulse Resp BP Pulse Ox
98.1 F 83 16 101/64 98
05/13/25 07:45 05/13/25 07:45 05/13/25 07:45 05/13/25 07:45 05/13/25 08:55
Lab Results - Hematology
05/12/25 05/13/25
15:09 12:35
WBC 6.0 6.7
Lab Results - Chemistry
05/12/25
15:09
BUN 49 H
Creatinine 5.4 H*
Estimated Creat Clear 17
Albumin 3.7
Microbiology Results
05/12/25 22:35 Gram Stain - Preliminary
Abscess
Therapeutic Drug Monitoring
Random Vancomycin 30.0 ug/ml 05/13/25 12:33
[2025-05-13] MEDS: BENADRYL 25 MG IV ×3 (13:36→22:13)
[2025-05-13] MEDS: VANCOCIN HCL 500 MG 100 IV (14:56)
--- NOTE | 2025-05-13 15:04 | CM ---
CM reviewed chart, patient seen bedside receiving dialysis, initial assessment completed. Patient resides with his family in a one level home. Patient is independent with ADLs/IADLS, denies DME in the home. [facility], M// schedule. [facility], confirmed patient chair time 11:30 a.m. Patient PCP Casper Nuñez, pharmacy [facility]. Patient for LT 2nd partial toe amputation 05/14/25. CM will continue to follow for all discharge planning
needs.
Plan; LT 2nd partial toe amputation 05/14/25, outpatient dialysis [facility] [place]
[2025-05-13 15:25] VITALS: BP 134/60
--- NOTE | 2025-05-13 15:53 | W.PN.NEPH.HD ---
Assessment
-
pt seen during HD
vitals stable
wound noted on hands and legs-non healing for 2months
he is at high risk of calciphylaxis-biopsy would be needed to confirm
OM of left 2nd toe-cont abx per ID and plan noted for amputation on 05/14
AVF functions fine
d/w pt and primary
Progress Note - Hemodialysis
-
Date of Service: May 13, 2025
Duration: 30 minutes and 3 hours
Potassium Bath: 2
Calcium Bath: 2.5
Opti-Dialyzer: 160
Ultrafiltration: Other (2kg)
Blood Flow: 400
Dialysate Flow: 600
Heparin: no
EPO: no
[2025-05-13] MEDS: HEPARIN SC (16:52)
[2025-05-13 17:03] LABS: Glucose - Point of Care 137 mg/dl (70-99)
[2025-05-13 19:04] VITALS: BP 134/60
[2025-05-13] MEDS: NEURONTIN 100 MG PO (20:50)
[2025-05-13] MEDS: COREG 25 MG PO (20:53)
[2025-05-13 21:26] LABS: Glucose - Point of Care 266 mg/dl (70-99)
[2025-05-13] MEDS: PT'S OWN INSULIN PUMP - NovoLOG 1.6 UNIT SC (22:06)
[2025-05-13 23:20] VITALS: BP 108/67
[2025-05-14] VITALS (12 sets, daily range): BP systolic 11–134; BP diastolic 67–89; BMI 21.2
[2025-05-14] MEDS: BENADRYL 25 MG IV ×5 (02:30→19:43)
[2025-05-14] MEDS: MORPHINE SULFATE 2 MG IV ×5 (02:31→19:43)
[2025-05-14 07:43] LABS: Glucose - Point of Care 119 mg/dl (70-99)
--- NOTE | 2025-05-14 08:02 | PHA.VAN.FU ---
Vancomycin Assessment / Plan
- Assessment
Hemodialysis Schedule: MWF
WBC's are: WNL
In the past 24 hrs, patient has been: Afebrile
- Dosing Plan
Dosing by Level: Hold off on dosing today (dosing vancomycin on MWF post-HD)
- Monitoring Plan
No level(s) ordered at this time: pre-HD on 05.16
- Follow Up
Pharmacy will continue to follow.
Vancomycin Follow UP
- -
Patient Age: 35
Patient Sex: Male
Vancomycin Day #: 3
Indication: Skin And Soft Tissue (LE WOUNDS/OM)
Requesting Provider: KARON
Height / Weight:
Height 5 ft 6 in
Actual Weight 59.506 kg
Pertinent Past Medical History: DM
- Vital Signs / Lab Results
Temp Pulse Resp BP Pulse Ox
98.7 F 85 16 108/67 97
05/13/25 23:20 05/13/25 23:20 05/13/25 23:20 05/13/25 23:20 05/13/25 23:20
Lab Results - Hematology
05/12/25 05/13/25
15:09 12:35
WBC 6.0 6.7
Lab Results - Chemistry
05/12/25
15:09
BUN 49 H
Creatinine 5.4 H*
Estimated Creat Clear 17
Albumin 3.7
Microbiology Results
05/12/25 22:35 Gram Stain - Preliminary
Abscess
Therapeutic Drug Monitoring
Random Vancomycin 30.0 ug/ml 05/13/25 12:33
--- NOTE | 2025-05-14 09:28 | W.PN.UPDATE ---
Update Note
Progress Note Update
Re; Cardiovascular clearence
Pt has one clinical risk factor DM
Good execercise tolerance per patient. >4mets
No chest pain or angina he complained about this adx
EKG - anterior t waves changes which were noted on prior EKG in 2023
Stress test in 2023 was suboptimal
ECHO 2023 showed normal EF
Pt deemed at low risk for CV events for proposed surgery
[2025-05-14 09:32] LABS: Glucose - Point of Care 116 mg/dl (70-99)
--- NOTE | 2025-05-14 09:32 | W.SUR.POST ---
Surgical Immediate Post Op
Note
Pre Op Diagnosis: left 2nd toe osteomyelitis
Post Op Diagnosis: Same as above
Procedure Performed: Left 2nd toe amputation with primary closure
Primary Surgeon:Dr. Neftali Zepeda
Secondary Surgeons: None
Anesthesia: MAC with local block
Estimated Blood Loss: 5cc's
Fluids: None
Drains/Shunts: None
Specimens/Cultures: Aerobic and anaerobic cultures,
Proximal phalanx form LT 2nd toe
Doppler/Duplex/Angio (Y/N): N
Complications: None
Operative Findings: No deep tissue purulence or necrosis
Patient stable In PACU with stable vital signs and intact vascular status
[2025-05-14 10:16] LABS: Glycohemoglobin (HgbA1c) 8.1 % (4.0-5.6)
[2025-05-14] MEDS: PT'S OWN INSULIN PUMP - NovoLOG SC ×3 (10:23→21:29)
[2025-05-14] MEDS: SUBUTEX SL ×3 (10:38→21:29)
[2025-05-14] MEDS: HEPARIN 5000 UNITS SC ×3 (10:39→23:13)
[2025-05-14] MEDS: COREG 25 MG PO ×2 (10:39→19:44)
[2025-05-14] MEDS: PROTONIX 40 MG PO ×2 (10:40→19:44)
[2025-05-14 11:36] LABS: Glucose - Point of Care 108 mg/dl (70-99)
--- NOTE | 2025-05-14 13:29 | W.PN.NEPH.PH ---
Today's Communication / Plan
-
d/c per primary
HD on Friday if still here
Assessment/Plan
-
Impression:
ESRD [facility]
left UE AVF
SM
Hyperkalemia
Hyponatremia
Chronic Abdominal Pain / Gastroparesis
Pulmonary hypertension
Polysubstance abuse
Anxiety
History of biliary drain
Anemia
Right pleural effusion--s/p R thoracentesis for pleural effusion with 1.8L transudate 02/17/24
History of pericardial effusion requiring pericardial drain
multiple skin ulcers
Plan:
HD on Friday if still here
s/p left 2nd toe amputation for OM today
abx per ID, cont wound care
skin lesion not typical of calciphylaxis however he is at high risk if not healing would favor biopsy
PTH only slightly up 126, phos well controlled
wound seem to improve today on exam
pt plan to come off narc in near future
compared to previous admits he seem much more compliant this time and reports he has been sober for months now
strict renal diet and FR 40ounces/day speically for hyponatremia
d/c plan
-
-
Date of Service: May 14, 2025
CC / HPI / ROS
-
Chief Complaint:
ESRD
History of Present Illness:
tolerated HD yesterday
BP stable
phos is normal
no labs today
Review of Systems:
feels well
no cp or sob
wound healing
Labs
-
Labs:
WBC 6.7 10^3/uL (4.8-10.8) 05/13/25 12:35
RBC 3.97 10^6/uL (4.70-6.10) L 05/13/25 12:35
Hgb 11.0 g/dL (13.0-18.0) L 05/13/25 12:35
Hct 35.2 % (39.0-52.0) L 05/13/25 12:35
Plt Count 251 10^3/uL (130-400) 05/13/25 12:35
Sodium 128 mmol/L (135-145) L 05/13/25 12:35
Potassium 6.4 mmol/L (3.5-5.1) H* 05/13/25 12:35
Chloride 95 mmol/L (98-107) L 05/13/25 12:35
Carbon Dioxide 25 mmol/L (22-30) 05/13/25 12:35
BUN 49 mg/dl (9-20) H 05/12/25 15:09
Creatinine 5.4 mg/dL (0.7-1.3) H* 05/12/25 15:09
eGFR 13.39 05/12/25 15:09
Glucose 335 mg/dl (70-99) H 05/12/25 15:09
Calcium 8.9 mg/dl (8.4-10.2) 05/13/25 12:35
Phosphorus 4.1 mg/dl (2.5-4.5) 05/13/25 12:35
Albumin 3.7 g/dl (3.5-5.0) 05/12/25 15:09
Physical Exam
-
Vital Signs:
Vital Signs
Temp Pulse Resp BP Pulse Ox
98.0 F 81 16 116/74 96
05/14/25 12:25 05/14/25 12:25 05/14/25 12:25 05/14/25 12:05/14/25 12:25
Cardiovascular:: Regular rate and rhythm
Respiratory:: Bilateral: CTA (decreased)
Lung Excursion:: Normal
Abdomen:: Nontender and Soft
Extremity Edema:: None: Bilateral:
Randhawa Catheter: No
Other Findings::
multiple wounds in legs and hands seem timoteo r
--- NOTE | 2025-05-14 14:10 | W.PN.HOSP.TC ---
Today's Communication/Plan
-
Continue antibiotics
Continue with wound care and pain medication
DC planning
Assessment / Plan
Assessment / Plan
Left 2nd Toe Soft Tissue Infection with Underlying Osteomyelitis
- Status post second toe amputation.
- Continue with antibiotics/IV vancomycin per ID
- Follow or cultures
- arterial ultrasound of lower extremity shows no evidence of bilateral lower extremity arterial insufficiency. Left groin lymph nodes noted which could be secondary to infection.
- Consult ID
Skin lesions with ulcerations and scabbing
Denies any skin popping or injecting into soft tissue.
He also has associated constant itching generalized
One concern is for calciphylaxis. He would require skin biopsy. Advised him to see dermatology as an outpatient
ESRD on HD MoWeFr
- Continue with dialysis per nephrology
- Secondary hyperparathyroidism noted. Not on any treatments. Will check with the visitor information assistant.
Diabetes Mellitus, Type I
-Continue Inuslin Pump
-Consult Diabetic INSOLE BOTTOM FILLER for insulin recommendations and help manage insulin pump
- Hemoglobin A1c 8.1
Essential Hypertension
-Continue Coreg
Gastroparesis
-Continue Protonix and Reglan
Substance Abuse Disorder
-Continue buprenorphine
Tobacco Use Disorder
-Encourage smoking cessation
-Offered nicotine patch which patient declined
DVT proph: SC Heparin
Code Status:Full Code
Anticipated Discharge: 24 - 48 hours
Subjective/Interval History
-
Date of Service: May 14, 2025
s/p left second toe amputation today.
Pain is adequately controlled.
Denies chest pain or shortness of breath.
No nausea vomiting.
Inquiring about going home tomorrow.
Objective Data
-
Labs:
Laboratory Results
05/13/25
12:35
WBC 6.7
Hgb 11.0 L
Hct 35.2 L
Plt Count 251
Vital Signs:
Vital Signs
Temp Pulse Resp BP Pulse Ox
98.2 F 81 16 115/67 97
05/14/25 13:25 05/14/25 13:25 05/14/25 13:25 05/14/25 13:25 05/14/25 13:25
I&O
05/13/25 05/14/25 05/15/25
06:59 06:59 06:59
Intake Total 790 / 790 720 / 720
Balance 790 / 790 720 / 720
Physical Exam
-
General: Comfortable
Respiratory: Clear to Auscultation and Non Labored Respirations; Negative Accessory Resp Muscle Use
Cardiac: Regular Rhythm and S1/S2
GI: Soft
Musculoskeletal: Edema, Left Lower Extrem (in dressing)
Skin: Other (skin wounds/ulcers as before)
Neuro: AO x 3
Psych: Calm
--- NOTE | 2025-05-14 14:48 | W.PN.ID1 ---
Date of Service
Date of Service: May 14, 2025
Today's Communication
DC Vancomycin.
Assessment / Plan
# Left 2nd toe distal osteomyelitis
# Chronic blisters/ulcers
# DM1
# ESRD on HD via LUE fistula
#hx MRSA colonization
- 05/14 s/p left 2nd toe amp - surgical cure.
- DC Vancomycin
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
Diabetes mellitus type 1
End-stage renal disease on hemodialysis via LUE AVF
Hypertension
Gastroparesis
Chronic abdominal pain
Suspect Bullous pemphigus
Chronic wounds
Anxiety/depression
Substance use disorder
History of PEA arrest March 2024
Blind
Appendectomy
Chief Complaint
-: Other (osteo)
Subjective / Review of Systems
Had toe amp this morning
Vital Signs / Physical Exam
Vital Signs
Vital Signs
Temp Pulse Resp BP Pulse Ox
98.2 F 81 16 115/67 97
05/14/25 13:25 05/14/25 13:25 05/14/25 13:25 05/14/25 13:25 05/14/25 13:25
Physical Exam
Constitutional: No Acute Distress and Comfortable
Cardiovascular: Regular Rate and S1/S2
Pulmonary: Clear
Gastrointestinal: Soft, Non Tender and Non Distended
Neurological: AO x 3
Objective Data
Lab Data
Lab Results
05/13/25 12:35
05/13/25 12:35
ESR 53 mm/hour (0-20) H 05/12/25 15:09
Estimated Creat Clear 17 ml/min 05/12/25 15:09
Total Bilirubin 0.9 mg/dl (0.2-1.3) 05/12/25 15:09
AST 17 U/L (17-59) 05/12/25 15:09
ALT < 10 U/L (0-50) 05/12/25 15:09
Alkaline Phosphatase 184 U/L (38-126) H 05/12/25 15:09
C-Reactive Protein 54.90 mg/L (0.0-10.00) H 05/12/25 15:09
Most recent labs reviewed.
Micro Results:
05/12/25 22:35 Wound Culture - Preliminary
Abscess Gram Stain - Preliminary
05/12/25 22:35 MRSA Screen - Final
Nose Staph aureus MRSA
05/12/25 Left foot XRAY: Second digit soft tissue swelling. Severe osseous demineralization bony destruction involving the second distal phalanx, consistent with osteomyelitis. There is also partial destruction and possible pathologic fracture of the
second middle phalanx.
[2025-05-14 16:01] LABS: Glucose - Point of Care 187 mg/dl (70-99)
[2025-05-14] MEDS: PT'S OWN INSULIN PUMP - NovoLOG 3 UNIT SC (16:44)
[2025-05-14 21:13] LABS: Glucose - Point of Care 147 mg/dl (70-99)
[2025-05-14] MEDS: NEURONTIN 100 MG PO (21:27)
[2025-05-15] MEDS: BENADRYL 25 MG IV ×4 (00:11→12:55)
[2025-05-15] MEDS: MORPHINE SULFATE 2 MG IV ×4 (00:12→12:56)
[2025-05-15 02:30] VITALS: BP 117/93
[2025-05-15 05:04] VITALS: BP 132/88
[2025-05-15 06:00] VITALS: BMI 21.9
[2025-05-15 06:30] VITALS: BP 130/80
[2025-05-15 07:06] LABS: Hematocrit 34.0 % (39.0-52.0); Hemoglobin 10.6 g/dL (13.0-18.0); Mean Corp Hgb Conc. 31.2 g/dL (33.0-37.0); Mean Corpuscular Volume 88.5 fL (80.0-94.0); Platelet Count 241 10^3/uL (130-400); Red Cell Dist. Width 16.5 % (11.5-14.5)
[2025-05-15 07:30] LABS: ALT (SGPT) < 10 U/L (0-50); AST (SGOT) 16 U/L (17-59); Albumin 3.5 g/dl (3.5-5.0); Alkaline Phosphatase 171 U/L (38-126); Blood Urea Nitrogen 54 mg/dl (9-20); Calcium 9.0 mg/dl (8.4-10.2); Carbon Dioxide 28 mmol/L (22-30); Chloride 98 mmol/L (98-107); Estimated Creatinine Clearance 14 ml/min; Glucose 166 mg/dl (70-99); Potassium 5.9 mmol/L (3.5-5.1); Sodium 131 mmol/L (135-145); Total Protein 7.2 g/dl (6.3-8.2); eGFR 10.52
[2025-05-15 07:47] LABS: Glucose - Point of Care 159 mg/dl (70-99)
[2025-05-15] MEDS: PT'S OWN INSULIN PUMP - NovoLOG 0.1 UNIT SC (07:53)
[2025-05-15] MEDS: COREG 25 MG PO (07:54)
[2025-05-15] MEDS: HEPARIN 5000 UNITS SC (07:54)
[2025-05-15] MEDS: PROTONIX 40 MG PO (07:54)
[2025-05-15] MEDS: SUBUTEX SL (07:58)
[2025-05-15 10:30] VITALS: BP 133/80
[2025-05-15 11:05] LABS: Glucose - Point of Care 148 mg/dl (70-99)
--- NOTE | 2025-05-15 11:17 | W.PN.HOSP.TC ---
Addendum entered and electronically signed by Dez Tijerina MD 05/15/25 16:03:
Osteomyelitis is acute
Addendum entered and electronically signed by Dez Tijerina MD 05/15/25 14:50:
Choose Doxycycline due to ESRD/HD
Addendum entered and electronically signed by Dez Tijerina MD 05/15/25 14:44:
Podiatry recommends tx for a week with abx
Cx data of wound noted and as well MRSA screen positivity
Will dc on Bactrim on HD day post session.
DW ID
Original Note:
Today's Communication/Plan
-
dc planning
Assessment / Plan
Assessment / Plan
Left 2nd Toe Soft Tissue Infection with Underlying Osteomyelitis
- Status post second toe amputation.
- Now off abx post toe amputation
- Follow or cultures
- arterial ultrasound of lower extremity shows no evidence of bilateral lower extremity arterial insufficiency. Left groin lymph nodes noted which could be secondary to infection.
- Await post op check
Skin lesions with ulcerations and scabbing
Denies any skin popping or injecting into soft tissue.
He also has associated constant itching generalized
One concern is for calciphylaxis. He would require skin biopsy. Advised him to see dermatology as an outpatient
ESRD on HD MoWeFr
- Continue with dialysis per nephrology
- Secondary hyperparathyroidism noted. Not on any treatments. Will check with the brainer.
Diabetes Mellitus, Type I
-Continue Inuslin Pump
-Consult Diabetic ORTHOPAEDIC PHYSICIAN ASSISTANT for insulin recommendations and help manage insulin pump
- Hemoglobin A1c 8.1
Essential Hypertension
-Continue Coreg
Gastroparesis
-Continue Protonix and Reglan
Substance Abuse Disorder
-Continue buprenorphine
Tobacco Use Disorder
-Encourage smoking cessation
-Offered nicotine patch which patient declined
DVT proph: SC Heparin
Code Status:Full Code
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
Anticipated Discharge: Today
Subjective/Interval History
-
Date of Service: May 15, 2025
Postop pain adequately controlled.
Denies any fever or chills.
No nausea vomiting and tolerating diet. Denies any shortness of breath or chest pain.
Objective Data
-
Labs:
Laboratory Results
05/15/25
06:08
WBC 6.8
Hgb 10.6 L
Hct 34.0 L
Plt Count 241
Sodium 131 L
Potassium 5.9 H
Chloride 98
Carbon Dioxide 28
BUN 54 H
Creatinine 6.6 H*
Glucose 166 H
Calcium 9.0
Total Bilirubin 0.7
AST 16 L
ALT < 10
Alkaline Phosphatase 171 H
Vital Signs:
Vital Signs
Temp Pulse Resp BP Pulse Ox
98.4 F 83 16 133/80 97
05/15/25 10:30 05/15/25 10:30 05/15/25 10:30 05/15/25 10:30 05/15/25 10:30
I&O
05/14/25 05/15/25 05/16/25
06:59 06:59 06:59
Intake Total 720 / 720 250 / 250
Balance 720 / 720 250 / 250
Physical Exam
-
General: Comfortable
Respiratory: Non Labored Respirations; Negative Accessory Resp Muscle Use
Cardiac: Regular Rhythm and S1/S2; Negative Tachycardic
Musculoskeletal: Other (Left leg in dressing)
Neuro: AO x 3
Psych: Calm
[2025-05-15] MEDS: PT'S OWN INSULIN PUMP - NovoLOG SC (11:43)
--- NOTE | 2025-05-15 13:08 | W.PN.POD ---
Today's Communication
Today's Communication
Patient stable per podiatry to discharge
Assessment / Plan
-
S/P LEft 2nd toe amputation POD #1
Insulin dependent diabetes
ESRD on HD
Plan : Changed surgical dressings to LT foot
HE can do his dressings at home,. his mother will help him
Adaptic, dry gauze and jasvir to T foot
Surgical shoe to LT foot , wt bear to LT heel.
F/u in my office on 05/17.Will need PO abx for 1 wk
Subjective
Chief Complaint
Left foot cellultis and Lt 2nd toe osteomyelitis
Subjective
Patient seen at bedside, doing well, denies any pain in LT foot . no fever, chills. Intact dressings to Lt foot, no strike through bleeding noted.
Objective
Temp Pulse Resp BP Pulse Ox
98.4 F 83 16 133/80 97
05/15/25 10:30 05/15/25 10:30 05/15/25 10:30 05/15/25 10:30 05/15/25 10:30
05/15/25 06:08
05/15/25 06:08
Vital Signs and Lab results were reviewed.
LT 2nd toe amputation site is clean, dry, intact sutures, no bloody oozing, no erythema, no SOI.
Skin edges are pink, well coapted
Resolved erythema to LT foot
--- NOTE | 2025-05-15 14:50 | W.DCSUMMARY ---
Discharge Summary
Discharge Data
Date of Admission: 05/12/25
Date of Discharge: 05/15/25
-
Pending Results: No
Hospital Course
Primary diagnosis:
Left second toe osteomyelitis status post second toe amputation
Secondary diagnosis:
Chronic skin ulcerated wounds
End-stage renal disease on hemodialysis
Diabetes mellitus type 1 on insulin pump
Hospital course:
Patient with end-stage renal disease on hemodialysis was referred by dialysis team to wound care physician for left toe wound and he was subsequently referred to ER due to concern of left toe infection. He had a soft tissue infection evident
clinically and also had an osteomyelitis on the plain x-ray. No history of peripheral arterial disease. Ultrasound arterial of lower extremity shows no evidence of PAD. He was seen by block layer and had second toe amputation. Was seen by
infectious disease team and recommended 1 week of antibiotics with doxycycline to cover for soft tissue if any infection. Looks like surgical cure was obtained with amputation. He would follow-up with block layer as an outpatient for dressing
changes and follow-up care.
His hemoglobin A1c was 8.1 advised to continue to follow-up with his aerotriangulation specialist.
He has a chronic ulcerated skin wounds without any infection and apparently this has been going on for months. I discussed with corn husk baler does not look like calciphylaxis. Advised him to see a sales agent fire insurance and get a biopsy of the skin lesion
Consultants on board:
Podiatry - Gil Ferrer
ID - Tri Oconnell
Discharge Plan
-
Patient Disposition: Home (Routine Discharge)
Discharge Diagnosis/Procedures: Left 2nd toe OM s/p amputation;DM1 on insulin
Diet: Diabetic, Carb Controlled
Activity: As tolerated
Driving Restrictions: As prior to admission
Bathing Restrictions: None
Activity Restrictions/Additional Instructions:
Wound Care Instructions
L 2nd toe and 4th toe: dry gauze dressing q other day until further orders from podiatry
R dorsal hand, R lateral foot and L heel: clean with saline, Xeroform, small silicone foam change q other day and prn drainage.
Legs: clean with saline, Xeroform, ABD pad and jasvir, change q other day and prn drainage.
Follow up at wound care center call for an appointment.
Referrals:
Casper Arroyo MD [Family Provider, Internal Medicine] - in less than 1 week
Neftali Zepeda DPM [Specified Professional Personl, Podiatry] - 05/17/25
Amy Diamond DO [Active, Dermatology] - in one to two weeks
Referral Note: Call to make an appointment for evaluation of your skin ulcers
Prescriptions:
New
acetaminophen 325 mg Tablet
650 mg PO Q4HPRN PRN (Reason: mild pain/ fever>100.5F) Qty: 1 0RF
doxycycline hyclate 100 mg tablet
100 mg PO BID Qty: 14 0RF
Continued
Patient Own Insulin Pump
0 units SC .VIA PUMP Qty: 0 0RF
Rx Instructions:
Novolog insulin via pump continuously
pantoprazole 40 mg tablet,delayed release (DR/EC)
40 mg PO BID
buprenorphine-naloxone 4-1 mg film
1 film sublingual TID
Patient Comments:
08/17/2024: last filled 08/15/24, 28 film for 14 days from [facility]
metoclopramide HCl [Reglan] 10 mg Tablet
5 mg PO Q8HPRN PRN (Reason: nausea) Qty: 0 0RF
carvedilol 25 mg Tablet
25 mg PO BID
acetaminophen [Acetaminophen Extra Strength] 500 mg Tablet
1,000 mg PO Q6HPRN PRN (Reason: mild pain)
gabapentin 100 mg Capsule
100 mg PO HS
Discharge Orders:
Discharge Patient (As Directed); Ordered 05/15/25
Ordered By: Dez Tijerina
Discharge Date and Time
Print Language: TURKISH
[2025-05-15 15:01] VITALS: BP 125/78
--- NOTE | 2025-05-15 15:34 | CM ---
CM reviewed chart, patient seen bedside, for discharge today. Patient denies need for VN. Patient reports mom will transport home. IMM verbally reviewed, provided with copy, placed in chart. CM will continue to follow for all discharge planning
needs.
Plan; home with family, outpatient HD
[facility]
--- NOTE | 2025-05-15 16:10 | W.PN.NEPH.PH ---
Today's Communication / Plan
-
ok for d/c
return to home unit tomorrow
Assessment/Plan
-
Impression:
ESRD [facility]
left UE AVF
SM
Hyperkalemia
Hyponatremia
Chronic Abdominal Pain / Gastroparesis
Pulmonary hypertension
Polysubstance abuse
Anxiety
History of biliary drain
Anemia
Right pleural effusion--s/p R thoracentesis for pleural effusion with 1.8L transudate 02/17/24
History of pericardial effusion requiring pericardial drain
multiple skin ulcers
Plan:
s/p left 2nd toe amputation for OM 05/14
abx per ID, cont wound care
skin lesion not typical of calciphylaxis however he is at high risk if not healing would favor biopsy
PTH only slightly up 126, phos well controlled
wound seem to improving on exam
compared to previous admits he seem much more compliant this time and reports he has been sober for months now
strict renal diet and FR 40ounces/day specially for hyponatremia, hyperkalemia
he may benefit from Lokelma in future
d/c plan noted today
-
-
Date of Service: May 15, 2025
CC / HPI / ROS
-
Chief Complaint:
ESRD
History of Present Illness:
BP stable
phos is normal
sodium at 131, k high 5.9
Review of Systems:
feels well
no cp or sob
wounds healing
Labs
-
Labs:
WBC 6.8 10^3/uL (4.8-10.8) 05/15/25 06:08
RBC 3.84 10^6/uL (4.70-6.10) L 05/15/25 06:08
Hgb 10.6 g/dL (13.0-18.0) L 05/15/25 06:08
Hct 34.0 % (39.0-52.0) L 05/15/25 06:08
Plt Count 241 10^3/uL (130-400) 05/15/25 06:08
Sodium 131 mmol/L (135-145) L 05/15/25 06:08
Potassium 5.9 mmol/L (3.5-5.1) H 05/15/25 06:08
Chloride 98 mmol/L (98-107) 05/15/25 06:08
Carbon Dioxide 28 mmol/L (22-30) 05/15/25 06:08
BUN 54 mg/dl (9-20) H 05/15/25 06:08
Creatinine 6.6 mg/dL (0.7-1.3) H* 05/15/25 06:08
eGFR 10.52 05/15/25 06:08
Glucose 166 mg/dl (70-99) H 05/15/25 06:08
Calcium 9.0 mg/dl (8.4-10.2) 05/15/25 06:08
Phosphorus 4.1 mg/dl (2.5-4.5) 05/13/25 12:35
Albumin 3.5 g/dl (3.5-5.0) 05/15/25 06:08
Physical Exam
-
Vital Signs:
Vital Signs
Temp Pulse Resp BP Pulse Ox
98.4 F 81 16 125/78 96
05/15/25 15:01 05/15/25 15:01 05/15/25 15:01 05/15/25 15:01 05/15/25 15:01
Lung Excursion:: Normal
Extremity Edema:: None: Bilateral:
Randhawa Catheter: No
Other Findings::
not in distress, NAD alert Ox4
multiple wounds in legs and hands seem timoteo r
neuro-grossly non focal
== END 2025-05-15 15:49 | disposition home or self-care (01) | DRG 617 ==
LOC: 4 WEST ACU 18:09
PROVIDERS: Internal Medicine; Physician Assistant; Physician Assistant Medical; ADMITTING PHYSICIAN Internal Medicine; CONSULT PHYSICIAN Internal Medicine Infectious Disease; CONSULT PHYSICIAN Podiatrist Foot & Ankle Surgery; CONSULT PHYSICIAN Specialist; EMERGENCY PHYSICIAN Emergency Medicine; FAMILY PHYSICIAN Internal Medicine
PROC: 5A1D70Z Performance of Urinary Filtration, Intermittent, Less than 6 Hours Per Day (ICD-10-PCS; 2025-05-13)
PROC: 0Y6S0Z1 Detachment at Left 2nd Toe, High, Open Approach (ICD-10-PCS; 2025-05-14)
DX: E10.69 Type 1 diabetes mellitus with other specified complication (principal); E87.1 Hypo-osmolality and hyponatremia; M86.172 Other acute osteomyelitis, left ankle and foot; I13.2 Hypertensive heart and chronic kidney disease with heart failure and with stage 5 chronic kidney disease, or end stage renal disease; F11.20 Opioid dependence, uncomplicated; L03.116 Cellulitis of left lower limb; E87.22 Chronic metabolic acidosis; L97.526 Non-pressure chronic ulcer of other part of left foot with bone involvement without evidence of necrosis; L10.89 Other pemphigus; M84.675A Pathological fracture in other disease, left foot, initial encounter for fracture; N18.6 End stage renal disease; N25.81 Secondary hyperparathyroidism of renal origin; E10.43 Type 1 diabetes mellitus with diabetic autonomic (poly)neuropathy; I50.9 Heart failure, unspecified; I48.0 Paroxysmal atrial fibrillation; E10.42 Type 1 diabetes mellitus with diabetic polyneuropathy; F32.A Depression, unspecified; F41.9 Anxiety disorder, unspecified; G89.29 Other chronic pain; H54.7 Unspecified visual loss; F19.10 Other psychoactive substance abuse, uncomplicated; I27.20 Pulmonary hypertension, unspecified; K31.84 Gastroparesis; E10.22 Type 1 diabetes mellitus with diabetic chronic kidney disease; F17.210 Nicotine dependence, cigarettes, uncomplicated; E87.5 Hyperkalemia; D64.9 Anemia, unspecified; Z96.41 Presence of insulin pump (external) (internal); Z99.2 Dependence on renal dialysis; Z79.4 Long term (current) use of insulin; Z86.74 Personal history of sudden cardiac arrest; Z86.711 Personal history of pulmonary embolism; Z91.013 Allergy to seafood; Z86.14 Personal history of Methicillin resistant Staphylococcus aureus infection; Z91.199 Patient's noncompliance with other medical treatment and regimen due to unspecified reason
CPT/HCPCS: 73660; 80051; 80053; 80202; 82962; 83036; 83970; 84100; 85025; 85027; 85652; 86140; 87070; 87075; 87077; 87147; 87176; 87184; 87186; 87205; 88305; 88311; 93005; 93922; 93925; 96374; 96375; 99285; P9047

== ENCOUNTER 2025-07-25 16:17 | Inpatient (IN) | payer OTHER, SELFPAY ==
[2025-07-25 12:22] VITALS: BP 181/103
--- NOTE | 2025-07-25 14:09 | ED.GENMED ---
History of Present Illness
General
Chief Complaint: Vascular Access Problem
Source: patient and records
Exam Limitations: none
Time Seen by Provider: 07/25/25 13:51
Nursing documentation reviewed up to this point in time: agreed with
History of Present Illness
History of Present Illness:
35-year-old male with a past medical history of hypertension, CHF, insulin-dependent diabetes, ESRD on dialysis, polysubstance use who presents to the emergency department sent by his dialysis center for evaluation of ulceration on his fistula.
Patient reports that over the past 4 to 5 days he has developed an ulceration on his left upper extremity AV fistula. Fistula has been his primary dialysis access for about 5 years. He says that he presented to dialysis today and they did not feel
comfortable accessing his fistula due to ulceration and he was referred to the ER for assessment. He denies any pain around the fistula. He says that he has had similar issue in the past requiring revision of the fistula. He says that his last
dialysis session was Friday; he says that he feels that he is volume overloaded has had increased edema and some shortness of breath and is about 15 pounds positive weight gain over the past week.
Past History
Past History
ED Past Medical History: Arrthythmia, CHF, HTN, IDDM, Renal failure and Other
ED Past Surgical History: Appendectomy and Other (Left AV fistula, biliary drain removed)
Patient has exhibited threatening behavior?: No
PSI?: No
Social History
Tobacco: Smoker
Alcohol: None
Drug: None
Personal: Single
Living: with family
Employment: Disabled
Family History
Family History: Other
Review of Systems
Review of Systems
All Other Systems: ROS reviewed and negative except as documented in HPI and ROS
Constitutional: Reports weight gain; Denies fever
Respiratory: Reports trouble breathing
Cardiac: Denies chest pain
ABD/GI: Denies abdominal pain
: Denies flank pain
Musculoskeletal: Reports edema; Denies neck pain or back pain
Skin: Reports other (Fistula ulceration)
Phy Exam
Physical Exam
Physical Exam:
General: Awake, alert, oriented x3; no acute distress
Head: Normocephalic, atraumatic
Eyes: Conjunctiva normal
Throat: Airway intact, handling secretions
Neck: Trachea midline, no JVD appreciated
Lungs: No tachypnea or hypoxia patient does have rales throughout all lung [place]
Heart: Regular rate and rhythm, no murmurs, gallops, or rubs appreciated
Abd: Soft, non distended, nontender
Neuro: Grossly intact
Skin: Patient has left upper extremity AV fistula with a palpable thrill; there are 2 small ulcerations as pictured below with no surrounding erythema or warmth
Extremities: Patient has pitting edema in the bilateral lower extremities as well as in the hands/forearms bilaterally
Scores
Heart Failure Risk
Heart Failure Risk Score: Not Applicable
Heart Score for Chest Pain Patients
STEMI patient?: Not applicable
Withdrawal Assessment of Alcohol
Withdrawal Assessment Completed?: Not applicable
Course
Orders/Labs/Results
Orders:
Orders
07/25/25 14:09
Vascular Surgery Consult Urgent
Consulting Provider: Fabien Randhawa III
Was physician already notified: Yes
07/25/25 14:48
NEPHROLOGY CONSULT Urgent
Consulting Provider: Kulwinder Vigil V.
Was physician already notified: Yes
07/25/25 14:55
Diphenhydramine [Benadryl] 50 mg IV NOW STA
Ondansetron Injectable [Zofran] 4 mg IV NOW STA
07/25/25 15:34
Basic Metabolic Panel Urgent
Complete Blood Count/No Diff Urgent
Magnesium Urgent
Phos [Phosphorus] Urgent
07/25/25 15:38
Mannitol 25% 12.5 grams IV HD-Q1HPRN PRN
Sodium Chloride [Sodium Chloride 4 Meq/ml For Hemodialysis] 10 ml IV HD-Q1HPRN PRN
Hemodialysis treatment As Directed
Treatment date:: 07/25/25
Treatment type: Ultrafiltration only
Ultrafiltration (kg): 2kg
Treatment time (duration): 2 hours 15 minutes
Use dialysis access:: AVF
Dialyzer:: Optiflux 160
Blood flow rate minimum: 200
Blood flow rate maximum: 250
07/25/25 15:45
Admit/Transfer Patient As Directed
Co-Sign Provider:
Level of Care: Inpatient admission
Assign to:: Telemetry
Physician / Group: steve
Diagnosis: acute hypoxia
Reason for Telemetry: Other
Other Reason for Telemetry: HTN emergency
Date to Stop Telemetry: 07/27/25
Time to Stop Telemetry: 11:00
Reason for Hospitalization: acute hypoxia
Expected length of stay greater than two midnights?: Yes
ELOS- Estimated Length of Stay in days: 3
I certify the patient meets the requirements for IP care: Yes
PRN Pain Medication Management As Directed
May give lesser potent ordered pain med per pt: Yes
preference::
Protocol:: Medication orders for pain may be administered in a
manner that supports deferring to patient preference
when the pt is:
- Requesting an ordered lesser potent pain medication.
Least to most potent pain medications are defined
as: acetaminophen < NSAID < tramadol < opioids
(morphine, oxycodone, hydromorphone).
- Requesting a lesser dose of the same medication IF
ORDERED.
- Requesting a less intrusive route of administration
if both routes are prescribed by the provider (PO <
IV).
07/25/25 15:46
Code Status As Directed
Resuscitation Status: Full Code
07/27/25 11:00
DC Protocol for Telemetry ONCE
Abnormal Lab Results
07/25/25
15:34
RBC 4.42 L 10^6/uL
(4.70-6.10)
Hgb 12.4 L g/dL
(13.0-18.0)
MCHC 30.8 L g/dL
(33.0-37.0)
RDW 18.0 H %
(11.5-14.5)
Sodium 130 L mmol/L
(135-145)
Potassium 7.8 H* mmol/L
(3.5-5.1)
Chloride 96 L mmol/L
(98-107)
BUN 55 H mg/dl
(9-20)
Creatinine 8.4 H* mg/dL
(0.7-1.3)
Glucose 278 H mg/dl
(70-99)
Phosphorus 7.0 H mg/dl
(2.5-4.5)
Magnesium 2.7 H mg/dl
(1.6-2.3)
07/25/25 15:34
07/25/25 15:34
Vital Signs
Initial and Last Documented VS:
Initial Vital Signs
Temp Pulse Resp BP Pulse Ox
37.0 C 95 16 181/103 96
07/25/25 12:22 07/25/25 12:22 07/25/25 12:22 07/25/25 12:22 07/25/25 12:22
Last Documented Vital Signs
Temp Pulse Resp BP Pulse Ox
37.0 C 95 16 181/103 97
07/25/25 12:22 07/25/25 12:22 07/25/25 12:22 07/25/25 12:22 07/25/25 14:28
MDM/Problems Addressed
Differential Diagnosis Includes:
Fistula ulceration
MDM/Problems Addressed:
35-year-old male presents with a small ulceration over his AV fistula�he was sent by dialysis as they did not feel comfortable accessing due to this ulceration. Last dialysis session was Friday and he does appear to be volume overloaded.
Hypertensive but otherwise acceptable vitals. Physical exam as noted. Case was discussed with vascular surgery for consultation to provide recommendations regarding his AV fistula and will reassess plan for dialysis thereafter.
Discussed with vascular surgery who evaluated�recommended that fistula can be accessed in areas removed from ulcerations but under no circumstances should area around the small ulcerations be accessed. Recommended consultation with nephrology to
help facilitate dialysis. I do long discussion with the patient he says that his dialysis center said that they could not dialyze him tomorrow on an outpatient basis. He does appear volume overloaded regardless. Discussed with nephrology will
plan to admit for dialysis. Discussed case with hospitalist.
Hyperkalemia noted. Will temporize. Discussed with general internist and physician leader update plan to dialyze upon arrival in room upstairs.
Chronic conditions affecting care:
IDDM, hypertension, CHF, ESRD
Acute Exacerbation and/or Progression of Chronic Illness:
Acutely hypertensive in the setting of likely fluid overload in need of dialysis�will need dialysis for volume removal
*Pulse Oximetry
SaO2: 96
Oxygen Mode of Delivery: Room air
Patient hypoxic: no (96%)
*Critical Care Note
Total Time (30-74mins, 75-104mins- exclusive of procedures): Not Applicable
Data Reviewed
Source: patient and records
Patient Management
Discussion with other providers: Hospitalist (Discussed with hospitalist) and Dining Room Hostess (Discussed with vascular surgery, discussed with nephrology)
Escalation/DeEscalation of care consider admission/obs:
Admission indicated
ED Attending Note
-
Portions of this chart may have been created with voice recognition software.� Occasional wrong word or��sound alike� substitutions may have occurred due to the inherent limitations of voice recognition software.
Discharge Plan
Departure
Patient Disposition: Admit
Date of Disposition: 07/25/25
Time of Disposition: 14:59
Admit to doctor: Steve
Presentation/result/management discussed w/ accepting MD/DO: Hospitalist
Discharge Problem:
Other complication of arteriovenous dialysis fistula, Volume overload
Interventions
Interventions:
*Risk Screen - Suicide Last Done: 07/25/25 14:25
*General Assessment Last Done: 07/25/25 14:25
*Neglect/Abuse Screening Last Done: 07/25/25 14:25
*ED- Fall Risk Assessment Last Done: 07/25/25 14:25
*ED COVID-19 Vaccine History Last Done: 07/25/25 14:25
ED-Skin Assessment Last Done: 07/25/25 14:25
[2025-07-25 14:25] VITALS: BMI 22.7
--- NOTE | 2025-07-25 14:36 | CON.VAS ---
Addendum entered and electronically signed by Fabien Randhawa III, MD 07/25/25 15:29:
This patient was seen and examined in collaboration with OSCAR Adkins. I agree with the history and physical exam as well as the assessment and plan. I have the following additions:
Young patient with multiple advanced medical comorbidities
End-stage renal failure on hemodialysis via left upper extremity arteriovenous fistula
This was placed by Dr. Landon several years ago at [place] and he has also had prior ulcer resections from the fistula by Dr. Bond
Fistula working well and has no issues with his sessions.
Has not seen Dr. Bond in quite some time by his report
Now with superficial clean-based ulcerations over the mid fistula site. These have been present for 4 to 5 days
No evidence of infection on exam
He is nontoxic-appearing
See clinical image for appearance-the wounds have a healthy pink base. very superficial. He has had no bleeding complications
He does report that they stick him at very similar sites at each dialysis session
There is plenty of patent fistula proximal and distal to the area of skin ulceration
There is an easily palpable thrill along the entire course of the fistula
My recommendation is that we exclude the area of skin ulceration from needle access and rest this area to give the superficial wounds a chance to heal. There is plenty of fistula length to access proximal and/or distal to the skin ulceration.
Recommend local wound care to the superficial ulcers with nonadherent gauze, mupirocin/bacitracin and dry dressing coverage. Sites can be cleaned with soap and water daily. Change dressing daily.
Would have nephrology evaluate patient in the ED for dialysis session here. If unable to access the fistula as detailed above then patient will need a catheter and full resting of the fistula altogether.
He should follow-up with me in the office.
Discussed plan with ED attending
Signed:
Fabien Randhawa III, MD
Vascular Surgery
[facility]
Original Note:
Consultation
Consultation Request
Date/Time Consultation Performed: 07/25/2025 at 230p
Performing Provider: Sydnee
Reason for Consultation: Ulcer at AVF site
Medical History
-
Chief Complaint: Ulceration at AVF site
History of Present Illness:
35-year-old male with past medical history significant for diabetes type 1, PEA arrest in March 2024, end-stage renal disease on HD, hypertension, substance use disorder, medical noncompliance presenting to the emergency room today from his dialysis
unit for ulceration on his left upper extremity AVF. Patient reports having an ulceration on the AVF site for the past 4 to 5 days. Site was easily accessed on Friday and his treatment was complete. Today the center did not want to access fistula
with concern for the ulceration being infected.
Vascular consult for evaluation of the ulceration on the AVF. Patient seen at bedside this afternoon with Dr. Randhawa. Left upper extremity AVF with superficial 1cm x 2cm open ulceration. Wound bed clean and pink with surrounding tissue intact.
+thrill at ulceration site as well as above and below. Photo attached below. Patient states on Friday HD site accessed fistula at the lateral portion next to the ulceration. He states he has not been stuck above and below the ulcerated area,
though there is space there for access.
LUE AVF
Past Medical History
Past Medical History: Other (Type 1 diabetes, PEA arrest -, end-stage renal disease on HD, hypertension, gastroparesis, chronic abdominal pain, substance use disorder, anxiety/depression, medical noncompliance, blindness)
Past Surgical History: Other (Left upper extremity AV fistula, appendectomy, PD catheter placed/removed)
Social History
Tobacco: Smoker
Alcohol: Occasional
Drug: Other (History of polysubstance abuse-on Suboxone now)
Living: With Family
Family History
Family History: Reviewed & Not Pertinent
Allergies / Home Medications
Allergy/AdvReac Type Severity Reaction Status Date / Time
shellfish derived Allergy Hives Verified 07/25/25 12:26
�Medication �Instructions �Recorded �Confirmed �Type
Patient Own Insulin Pump 0 units SC .VIA PUMP diabetes ##0 07/04/24 05/12/25 Rx
buprenorphine 4 mg-naloxone 1 mg 1 film sublingual TID SUBSTANCE 08/17/24 05/12/25 History
sublingual film USE DISORDER
pantoprazole 40 mg tablet,delayed 40 mg PO BID Gastrointestinal Issue 08/17/24 05/12/25 History
release
metoclopramide HCl 10 mg tablet 5 mg (1/2 x 10 mg) PO Q8HPRN PRN 08/25/24 05/12/25 Rx
(Reglan) nausea #0 tabs
acetaminophen 500 mg tablet 1,000 mg PO Q6HPRN PRN mild pain 05/12/25 05/12/25 History
(Acetaminophen Extra Strength)
carvedilol 25 mg tablet 25 mg PO BID 05/12/25 05/12/25 History
gabapentin 100 mg capsule 100 mg PO HS 05/12/25 05/12/25 History
acetaminophen 325 mg tablet 650 mg (2 x 325 mg) PO Q4HPRN PRN 05/15/25 Rx
mild pain/ fever>100.5F #1 tab
doxycycline hyclate 100 mg tablet 100 mg PO BID #14 tabs 05/15/25 Rx
Review of Systems
-
History Source: Patient
All other systems: Negative unless noted
Constitutional: Reports No Symptoms
EENT: Reports No Symptoms
Respiratory: Reports No Symptoms
Cardiac: Reports No Symptoms
Vascular: Denies Leg Pain / Claudication
Abdomen/GI: Reports No Symptoms
: Reports No Symptoms
Musculoskeletal: Reports No Symptoms
Skin: Reports Other (Scattered scabbing/superficial ulcerations on all extremities)
Neurological: Reports No Symptoms
Physical Exam
Vital Signs
Temp Pulse Resp BP Pulse Ox
98.6 F 95 16 181/103 97
07/25/25 12:22 07/25/25 12:22 07/25/25 12:22 07/25/25 12:22 07/25/25 14:28
Physical Exam
General: No Apparent Distress
HEENT: Normocephalic and Atraumatic
Respiratory: Non Labored Respirations (On nasal cannula)
Cardiac: Other (+ Thrill at left upper extremity AVF); Negative JVD
Musculoskeletal: No Clubbing, No Cyanosis and No Edema
Skin: Warm, Dry and Other (See wound care pictures)
Neuro: Awake, Alert and Oriented
Psych: Calm
Assessment / Plan
-
35-year-old male here with ulceration at left upper extremity AVF site
Plan:
HD per nephrology-access above and below ulceration*
Local wound care/rest ulcer site
Patient would like to follow with us in the office, I will add appointment to discharge instructions
--- NOTE | 2025-07-25 15:02 | W.CON.NEPH ---
Consultation
-
Date/Time Consultation Requested: 07/25/2025 3:00
Date/Time Consultation Performed: 07/25/2025 3:00 PM
Requesting Provider: Dr. Florian
Performing Provider: Dr. Vigil
Reason for Consultation: End-stage renal disease/congestive heart failure
Medical History
-
Chief Complaint: ESRD
History of Present Illness:
The patient is a 35-year-old man with diabetes mellitus type 1 on insulin pump, blindness, and end-stage renal disease on hemodialysis MWF. In 2023 he had multiple admissions for pain and opiate seeking. Since then he has apparently been stable
with outpatient care. He says that he has been compliant with OP dialysis and has had no issues. His diabetes has been stable on insulin pump. His hypertension is stable on coreg. He came to the hospital because of ulcerations on his left upper
extremity AV fistula. He was seen by vascular but his dialysis unit refused to see him back today were to set up dialysis for him tomorrow. We were consulted for his end-stage renal disease management.
Past Medical History
end-stage renal disease on hemodialysis [facility]
PE
constipation
CHF
pleural effusions
depression/ anxiety
polysubstance abuse
Diabetes mellitus type I
Left upper extremity AV fistula revision for ulcers
Pulmonary hypertension
pericardial effusion with impending cardiac tamponade had pericardiocentesis 385 cc exudative fluid on 03/31, history of right pleural effusion status post thoracentesis 04/04/2024, Hx cardiac arrest Hx PE, ESRD on HD Friday,,
paroxysmal A-fib, splenic infarct, diabetes mellitus
biliary stent 2019
Second toe amputation
Hypertension
Past Surgical History: Other (LUE AVF Appendectomy PD Catheter placed / removed)
Social History
Tobacco: Smoker
Alcohol: Occasional
Drug: Other (h/o polysub abuse)
Family History
Family History: Not Pertinent
Allergies / Home Medications
Allergy/AdvReac Type Severity Reaction Status Date / Time
shellfish derived Allergy Hives Verified 07/25/25 12:26
�Medication �Instructions �Recorded �Confirmed �Type
Patient Own Insulin Pump 0 units SC .VIA PUMP diabetes ##0 07/04/24 05/12/25 Rx
buprenorphine 4 mg-naloxone 1 mg 1 film sublingual TID SUBSTANCE 08/17/24 05/12/25 History
sublingual film USE DISORDER
pantoprazole 40 mg tablet,delayed 40 mg PO BID Gastrointestinal Issue 08/17/24 05/12/25 History
release
metoclopramide HCl 10 mg tablet 5 mg (1/2 x 10 mg) PO Q8HPRN PRN 08/25/24 05/12/25 Rx
(Reglan) nausea #0 tabs
acetaminophen 500 mg tablet 1,000 mg PO Q6HPRN PRN mild pain 05/12/25 05/12/25 History
(Acetaminophen Extra Strength)
carvedilol 25 mg tablet 25 mg PO BID 05/12/25 05/12/25 History
gabapentin 100 mg capsule 100 mg PO HS 05/12/25 05/12/25 History
acetaminophen 325 mg tablet 650 mg (2 x 325 mg) PO Q4HPRN PRN 05/15/25 Rx
mild pain/ fever>100.5F #1 tab
doxycycline hyclate 100 mg tablet 100 mg PO BID #14 tabs 05/15/25 Rx
Review of Systems
-
History Source: Patient
All other systems: Negative unless noted
Constitutional: No Symptoms and Weight Gain
Respiratory: Cough and Trouble Breathing
Cardiac: No Symptoms
Abdomen/GI: Nausea and Vomiting
: Other (Baseline anuria)
Musculoskeletal: Edema
Skin: Other (Multiple ulcerations along extremities both upper and lower)
Physical Exam
Vital Signs
Vital Signs
Temp Pulse Resp BP Pulse Ox
98.6 F 95 16 181/103 97
07/25/25 12:22 07/25/25 12:22 07/25/25 12:22 07/25/25 12:22 07/25/25 14:28
Lab Results
WBC 6.0 10^3/uL (4.8-10.8) 05/12/25 15:09
RBC 4.31 10^6/uL (4.70-6.10) L 05/12/25 15:09
Hgb 12.0 g/dL (13.0-18.0) L 05/12/25 15:09
Hct 37.9 % (39.0-52.0) L 05/12/25 15:09
Plt Count 256 10^3/uL (130-400) 05/12/25 15:09
Sodium 132 mmol/L (135-145) L 05/12/25 15:09
Potassium 5.4 mmol/L (3.5-5.1) H 05/12/25 15:09
Chloride 92 mmol/L (98-107) L 05/12/25 15:09
Carbon Dioxide 33 mmol/L (22-30) H 05/12/25 15:09
BUN 49 mg/dl (9-20) H 05/12/25 15:09
Creatinine 5.4 mg/dL (0.7-1.3) H* 05/12/25 15:09
eGFR 13.39 05/12/25 15:09
Glucose 335 mg/dl (70-99) H 05/12/25 15:09
Calcium 10.2 mg/dl (8.4-10.2) 05/12/25 15:09
Albumin 3.7 g/dl (3.5-5.0) 05/12/25 15:09
Laboratory Tests
08/25/24 08/25/24
04:39 13:25
Hgb 8.2 L
Sodium 131 L
Potassium 4.8
Physical Exam
.
General: AOx3 and Other (Moderate respiratory distress)
HEENT: PERRL, EOMI, Anicteric and Conjunctivae Clear
Respiratory: Wheezes, Crackels, Rhonchi and Other (Labored respirations noted)
Cardiac: S1/S2 and Regular Rate/Rhythm (tachy)
Breast: Deferred by me
Abdomen: Soft, Nontender, Nondistended, Normal Bowel Sounds and No Hepatosplenomegaly
Rectal: Deferred by Provider
Genito-urinary: No Costovertebral Tender
Musculoskeletal: No Clubbing, No Cyanosis and Edema
Skin: Other (Skin was without rash and with normal turgor. scattered ulcers of varying sizes up to 1cm in width and depth up to full dermis are noted on hands, legs, and feet bilaterally.)
Neuro: CN II-XII and Strength (5 out of 5 in both upper and lower extremity)
Hematologic/Lymphatic: No Cervical Lymphadenopathy, No Submandibular Lymphadenopathy and No Supraclavicular Lymphadenopathy
Psych: Mood/afflect pleasant, Insight/judgement good and Appropriate
Vascular Access: AVF (Left upper extremity AV fistula with noted ulcerations: proximally (no weeping or purulent discharge, noted erythema)/good thrill and bruit noted)
Data Reviewed
-
Labs: Labs Reviewed by me (Will review BMP CBC on admission lab)
Old Records: Reviewed (Reviewed previous nephrology consultation for end-stage renal disease in May 13 2025)
Assessment/Plan
-
Impression:
ESRD [facility]
left UE AVF with ulcerations
Hypertension
Type 1 diabetes on insulin pump
Hx Hyperkalemia
Hyponatremia
Chronic Abdominal Pain / Gastroparesis
Pulmonary hypertension
Polysubstance abuse
Anxiety
History of biliary drain
Anemia
Right pleural effusion--s/p R thoracentesis for pleural effusion with 1.8L transudate 02/17/24
History of pericardial effusion requiring pericardial drain
Hx of multiple skin ulcers
History of left second toe amputation May 2025
Plan:
Dialysis orders provided as patient with obvious volume overload above his dry weight (59.5kg)by several kilograms
Patient on oxygen and requires urgent dialysis for hypoxia and volume overload on exam
Dialysis needles will be placed distally away from ulcerations on the fistula, vascular surgeon has reviewed the fistula and deemed usable and will follow-up as an outpatient on the ulcerations
Short UF treatment tonight for volume overload, then full treatment tomorrow
Regular dialysis for tomorrow
Fluid restriction of 1500 cc daily appropriate sodium and potassium restriction
Continue Coreg for hypertension
Patient critically ill with hypoxia in the setting of decompensated congestive heart failure with urgent required for dialysis
35 minutes critical care time spent with patient
--- NOTE | 2025-07-25 15:26 | HPS.HSE ---
Addendum entered and electronically signed by Cristy Wilson MD 07/25/25 19:21:
This is an addendum to H&P written by Lynn Mosley on 07/25/25. �Patient seen and examined independently with DIRECTOR TREASURER.
35-year-old male past medical history of osteomyelitis second left toe status post amputation, ESRD on hemodialysis Friday, Friday, Friday, type 1 diabetes on insulin pump, hypertension, gastroparesis, former opiate use, tobacco use disorder,
presenting with scab below the fistula site and was sent in by the dialysis clinic because they were uncomfortable providing dialysis. �He did not receive dialysis.
Presenting with shortness of breath and weight gain 15 to 20 pound in 3 days.
Vital signs show blood pressure 181/103. �EKG shows normal sinus rhythm.
Potassium 7.8.
Patient with scab below the fistula site sent in by dialysis. �No evidence of infection. �Seen by vascular who recommends that the area of the scab should not be accessed for dialysis and there is plenty of fistula length to allow for dialysis.
�Local wound care.
Patient was given insulin dextrose for hyperkalemia.
Patient also with volume and hypertension exacerbated by missed dialysis session today. �Check chest x-ray. �Nephrology consulted for dialysis. �Plan for ultrafiltration today and regular dialysis session tomorrow. �Recheck BMP for hyperkalemia.
Recheck BMP to assess for improvement of hyperkalemia.
Original Note:
Family Physician
-
Family Physician: Casper Arroyo
Chief Complaint
-
fistula scab
History of Present Illness
35-year-old male with a past medical history of hypertension, CHF, insulin-dependent diabetes, ESRD on dialysis, polysubstance use who presents to the emergency department sent by his dialysis center for evaluation of ulceration on his fistula.he
noticed the scab for one week on his left UE fistula.he was itching it and scab came off. today he went for dialysis and the nurses were not comfortable accessing the site. patient stated 15 to 20lbs weight gain. he is sob with exertion. He denies
any pain around the fistula.He says that his last dialysis session was Friday. Patient denied any headache, discharge from the pain. Patient denied any fever or chills, cough, congestion. Patient denied any chest pain. Patient denied any
abdominal pain, nausea, vomiting or diarrhea. Patient is anuric. Patient has chronic bilateral lower extremities wounds for which he follow-up with wound care as outpatient .
Patient was evaluated by vascular surgery, Recommended to follow-up as outpatient. Plan for dialysis today and tomorrow by nephrology.
Medical History
Past Medical History
Past Medical History: Reports Other
Additional Past Medical History:
Type 1 diabetes, PE, end-stage renal disease, hypertension
Past Surgical History: Reports Other
Additional Past Surgical History:
Toe amputation, appendectomy, PD cath removed,
Social History
Tobacco: Smoker (Half a pack)
Alcohol: None
Drug: Former User
Family History
Family History: Not pertinent
Allergies / Home Medications
Allergies reflects when Allergies were last updated in [facility].
Home Medications with original date entered in [facility]
Allergy/Medication List:
Allergies
Allergy/AdvReac Type Severity Reaction Status Date / Time
shellfish derived Allergy Hives Verified 07/25/25 12:26
Home Medications
Patient Own Insulin Pump 0 units SC .VIA PUMP diabetes ##0 07/04/24
buprenorphine 4 mg-naloxone 1 mg sublingual film 1 film sublingual TID SUBSTANCE USE DISORDER 08/17/24
pantoprazole 40 mg tablet,delayed release 40 mg PO BID Gastrointestinal Issue 08/17/24
metoclopramide HCl 10 mg tablet (Reglan) 5 mg (1/2 x 10 mg) PO Q8HPRN PRN nausea #0 tabs 08/25/24
acetaminophen 500 mg tablet (Acetaminophen Extra Strength) 1,000 mg PO Q6HPRN PRN mild pain 05/12/25
carvedilol 25 mg tablet 25 mg PO BID 05/12/25
gabapentin 100 mg capsule 100 mg PO HS 05/12/25
acetaminophen 325 mg tablet 650 mg (2 x 325 mg) PO Q4HPRN PRN mild pain/ fever>100.5F #1 tab 05/15/25
doxycycline hyclate 100 mg tablet 100 mg PO BID #14 tabs 05/15/25
Review of Systems
-
Constitutional: Reports No Symptoms
EENT: Reports No Symptoms
Respiratory: Reports Cough
Cardiac: Reports No Symptoms
Abdomen/GI: Reports No Symptoms
: Reports No Symptoms
Musculoskeletal: Reports Edema
Skin: Reports No Symptoms
Neurological: Reports No Symptoms
Endocrine: Reports No Symptoms
Hematologic/Lymphatic: Reports No Symptoms
Psych: Reports No Symptoms
Physical Exam
Vital Signs
Vital Signs
Temp Pulse Resp BP Pulse Ox
98.6 F 95 16 181/103 97
07/25/25 12:22 07/25/25 12:22 07/25/25 12:22 07/25/25 12:22 07/25/25 14:28
Physical Exam
General: Well Developed, Well Nourished and No Apparent Distress
HEENT: NormoCephalic, Moist mucous membranes and Atraumatic
Respiratory: Rales
Cardiac: S1/S2 and Regular Rhythm; No Murmur or Rub
GI: Soft, Non Tender, Non Distended and Normal Bowel Sounds; No Organomegaly
Rectal: Deferred by Provider
Musculoskeletal: No Clubbing, No Cyanosis and No Edema
Skin: No Rash
Neuro: AO x 3 and Nonfocal/grossly intact
Psych: Calm
Data Reviewed
-
Lab Data: Labs Reviewed by me
Impression/Plan
-
# Acute hypoxia /fluid overload secondary to missed dialysis
- Nephrology plan for dialysis this evening and tomorrow
-Fluid restriction, sodium and potassium restriction
- Nephrology consulted
# Fistula ulceration
- Continue to monitor
- vascular to follow patient as outpatient
# Hypertension emergency likely from fluid overload
- Continue to monitor
- nifedipine continued
#Diabetes Mellitus, Type I
-Continue Inuslin Pump
-Consult Diabetic DIRECTOR TREASURER for insulin recommendations and help manage insulin pump
#b/l chronic wounds
=woundcare consulted.
#Gastroparesis
-Continue Protonix and Reglan
#Substance Abuse Disorder
-Continue buprenorphine
#Tobacco Use Disorder
-Encourage smoking cessation
-Offered nicotine patch which patient declined
DVT proph: SC Heparin
Code Status:Full Code
[2025-07-25] MEDS: ZOFRAN 4 MG IV (15:34)
[2025-07-25] MEDS: BENADRYL 50 MG IV (15:35)
[2025-07-25 16:11] LABS: Hematocrit 40.2 % (39.0-52.0); Hemoglobin 12.4 g/dL (13.0-18.0); Mean Corp Hgb Conc. 30.8 g/dL (33.0-37.0); Mean Corpuscular Volume 91.0 fL (80.0-94.0); Platelet Count 197 10^3/uL (130-400); Red Cell Dist. Width 18.0 % (11.5-14.5)
[2025-07-25 16:41] LABS: Blood Urea Nitrogen 55 mg/dl (9-20); Calcium 9.2 mg/dl (8.4-10.2); Carbon Dioxide 25 mmol/L (22-30); Chloride 96 mmol/L (98-107); Estimated Creatinine Clearance 12 ml/min; Glucose 278 mg/dl (70-99); Magnesium 2.7 mg/dl (1.6-2.3); Potassium 7.8 mmol/L (3.5-5.1); Sodium 130 mmol/L (135-145); eGFR 7.88
[2025-07-25] MEDS: CALCIUM GLUCONATE 1000 MG IV (16:55)
[2025-07-25 16:56] LABS: Glucose - Point of Care 175 mg/dl (70-99)
[2025-07-25] MEDS: DEXTROSE 50% SYRINGE 25 GRAMS IV (16:59)
[2025-07-25] MEDS: NOVOLIN R 5 UNITS IV (17:01)
[2025-07-25 17:05] VITALS: BP 158/98
[2025-07-25 17:31] VITALS: BP 172/106
[2025-07-25 17:37] LABS: Glucose - Point of Care 137 mg/dl (70-99)
[2025-07-25] MEDS: VENTOLIN NEBULES 10 MG INH (17:46)
--- NOTE | 2025-07-25 17:58 | PTCARENOTE ---
Received pt from ED via stretcher. Pt AAOX3. NSR on court monitor. HD at this time. Call luevano within reach. Plan of care ongoing.
[2025-07-25 18:30] VITALS: BP 161/95
[2025-07-25 18:41] LABS: Glucose - Point of Care 75 mg/dl (70-99)
[2025-07-25] MEDS: MANNITOL 25% 12.5 GRAMS IV ×2 (19:35→20:38)
[2025-07-25] MEDS: NEURONTIN 100 MG PO (21:03)
[2025-07-25] MEDS: PROCARDIA XL (EXTENDED RELEASE) 30 MG PO (21:03)
[2025-07-25] MEDS: SUBUTEX 4 MG SL (21:04)
[2025-07-25] MEDS: PT'S OWN INSULIN PUMP - NovoLOG 1 UNIT SC (21:05)
[2025-07-25] MEDS: HEPARIN 5000 UNITS SC (21:05)
[2025-07-25] MEDS: BENADRYL PO (21:12)
--- NOTE | 2025-07-25 21:58 | PTCARENOTE ---
Dialysis completed by welder fabricator. Blood Pressure post treatment 112/71 mmhg, heart rate 95. No acute distress is noted, patient appears to be resting comfortably in bed.
[2025-07-25 21:59] LABS: Glucose - Point of Care 175 mg/dl (70-99)
--- NOTE | 2025-07-25 22:47 | PTCARENOTE ---
Patient refuses assessment of skin on bilateral lower extremities, back, and sacral area.
[2025-07-25] MEDS: REGLAN 5 MG PO (23:06)
[2025-07-25 23:30] LABS: Blood Urea Nitrogen 24 mg/dl (9-20); Calcium 8.0 mg/dl (8.4-10.2); Carbon Dioxide 29 mmol/L (22-30); Chloride 90 mmol/L (98-107); Estimated Creatinine Clearance 22 ml/min; Glucose 204 mg/dl (70-99); Potassium 4.8 mmol/L (3.5-5.1); Sodium 130 mmol/L (135-145); eGFR 17.12
[2025-07-25 23:49] VITALS: BP 138/83
--- NOTE | 2025-07-25 23:52 | PTCARENOTE ---
Patient requests Benadryl, provided oral Benadryl as ordered. Upon delivery patient refuses medication stating 'It is suppose to be IV push, you can take that away.'
[2025-07-26] VITALS (7 sets, daily range): BP systolic 105–126; BP diastolic 60–75; BMI 23.8
[2025-07-26 05:28] LABS: Glucose - Point of Care 440 mg/dl (70-99)
[2025-07-26 06:16] LABS: Hematocrit 38.8 % (39.0-52.0); Hemoglobin 12.0 g/dL (13.0-18.0); Mean Corp Hgb Conc. 30.9 g/dL (33.0-37.0); Mean Corpuscular Volume 90.7 fL (80.0-94.0); Platelet Count 167 10^3/uL (130-400); Red Cell Dist. Width 18.0 % (11.5-14.5)
[2025-07-26] MEDS: BENADRYL 25 MG IV (06:19)
[2025-07-26 06:59] LABS: Blood Urea Nitrogen 30 mg/dl (9-20); Calcium 8.2 mg/dl (8.4-10.2); Carbon Dioxide 26 mmol/L (22-30); Chloride 89 mmol/L (98-107); Estimated Creatinine Clearance 18 ml/min; Glucose 496 mg/dl (70-99); Potassium 6.9 mmol/L (3.5-5.1); Sodium 126 mmol/L (135-145); eGFR 13.69
[2025-07-26 08:00] LABS: Glucose - Point of Care 282 mg/dl (70-99)
[2025-07-26] MEDS: SUBUTEX 4 MG SL ×3 (08:20→21:59)
[2025-07-26] MEDS: HEPARIN 5000 UNITS SC ×2 (08:20→20:02)
[2025-07-26] MEDS: PROCARDIA XL (EXTENDED RELEASE) 30 MG PO ×2 (08:20→20:02)
[2025-07-26] MEDS: PROTONIX 40 MG PO (08:21)
[2025-07-26] MEDS: PT'S OWN INSULIN PUMP - NovoLOG 3.3 UNIT SC ×3 (08:27→21:23)
[2025-07-26] MEDS: BENADRYL 50 MG IV (08:46)
[2025-07-26 09:04] LABS: Blood Urea Nitrogen 32 mg/dl (9-20); Calcium 8.4 mg/dl (8.4-10.2); Carbon Dioxide 29 mmol/L (22-30); Chloride 91 mmol/L (98-107); Estimated Creatinine Clearance 17 ml/min; Glucose 280 mg/dl (70-99); Potassium 6.7 mmol/L (3.5-5.1); Sodium 128 mmol/L (135-145); eGFR 12.82
--- NOTE | 2025-07-26 09:45 | W.PN.NEPH.PH ---
Today's Communication / Plan
-
Lokelma
Next dialysis will be provided tomorrow
If potassium level comes down at 1:00 he can be discharged and follow-up with his unit tomorrow for next dialysis
Assessment/Plan
-
Impression:
ESRD [facility]
left UE AVF with ulcerations
Hypertension
Type 1 diabetes on insulin pump
Hx Hyperkalemia
Hyponatremia
Chronic Abdominal Pain / Gastroparesis
Pulmonary hypertension
Polysubstance abuse
Anxiety
History of biliary drain
Anemia
Right pleural effusion--s/p R thoracentesis for pleural effusion with 1.8L transudate 02/17/24
History of pericardial effusion requiring pericardial drain
Hx of multiple skin ulcers
History of left second toe amputation May 2025
Plan:
Patient was dialyzed last night for 3-1/2 hours through 4kg UF
Blood pressure improved
Hyperkalemia is due to underlying hyperglycemia
Lokelma provided stat
Would recommend aggressive insulin control for
Will recheck lites at 1 PM
Next dialysis is scheduled for tomorrow either here if he stays or at his home unit if he is discharged
-
-
Date of Service: July 26, 2025
CC / HPI / ROS
-
Chief Complaint:
ESRD
History of Present Illness:
ESRD Friday
Hemodynamically stable
Hyperkalemia with associated hyperglycemia
Review of Systems:
Now off oxygen
No chest pain
No fevers
Labs
-
Labs:
WBC 4.6 10^3/uL (4.8-10.8) L 07/26/25 06:02
RBC 4.28 10^6/uL (4.70-6.10) L 07/26/25 06:02
Hgb 12.0 g/dL (13.0-18.0) L 07/26/25 06:02
Hct 38.8 % (39.0-52.0) L 07/26/25 06:02
Plt Count 167 10^3/uL (130-400) 07/26/25 06:02
Sodium 128 mmol/L (135-145) L 07/26/25 08:20
Potassium 6.7 mmol/L (3.5-5.1) H* 07/26/25 08:20
Chloride 91 mmol/L (98-107) L 07/26/25 08:20
Carbon Dioxide 29 mmol/L (22-30) 07/26/25 08:20
BUN 32 mg/dl (9-20) H 07/26/25 08:20
Creatinine 5.6 mg/dL (0.7-1.3) H* 07/26/25 08:20
eGFR 12.82 07/26/25 08:20
Glucose 280 mg/dl (70-99) H 07/26/25 08:20
Calcium 8.4 mg/dl (8.4-10.2) 07/26/25 08:20
Phosphorus 7.0 mg/dl (2.5-4.5) H 07/25/25 15:34
Physical Exam
-
Vital Signs:
Vital Signs
Temp Pulse Resp BP Pulse Ox
98.5 F 108 19 111/60 99
07/26/25 07:13 07/26/25 07:13 07/26/25 07:13 07/26/25 07:13 07/26/25 07:13
Cardiovascular:: Regular rate and rhythm
Respiratory:: Bilateral: Coarse
Lung Excursion:: Normal
Extremity Edema:: +1: Bilateral:
Randhawa Catheter: No
Other Findings::
not in distress, NAD
multiple wounds in legs and hands seem timoteo r
neuro-grossly non focal
[2025-07-26] MEDS: LOKELMA 10 GRAM PO (10:53)
--- NOTE | 2025-07-26 11:07 | W.PN.HOSP.TC ---
Today's Communication/Plan
-
Lokelma. Insulin adjustments.
Assessment / Plan
Assessment / Plan
Physical exam:
General: Acutely ill
HEENT: Normocephalic, Atraumatic and Moist Mucous Membranes
Respiratory: Clear to Auscultation; Negative Wheezes, Rales or Rhonchi
Cardiac: Regular Rhythm and S1/S2
GI: Soft, Nontender and Nondistended
Musculoskeletal: No Clubbing, No Cyanosis and No Edema
Skin: Multiple wounds on extremities
Neuro: Awake, Alert and Oriented, no neurodeficits
Psych: Calm
A/P:
# Acute hypoxia /fluid overload secondary to missed dialysis
- Nephrology consult appreciated
- Status post dialysis yesterday
- Nephrology planning repeat dialysis tomorrow
#Hyperkalemia
-Plan for Lokelma today per nephrology
-treasury representative
- Continue to monitor follow-up potassium
# Fistula ulceration
- Vascular evaluated patient and as per their recommendations there are plenty of patient fistula proximal and distal to the area of skin ulceration that is usable.
#Diabetes Mellitus, Type I
-Continue Inuslin Pump
- Blood sugar 496 this morning but follow-up BMP shows blood sugars 280 therefore trended down in the right direction
-Consult Diabetic PUMPING STATION ENGINEER for insulin recommendations and help manage insulin pump
# Hypertension emergency likely from fluid overload
- Continue to monitor
- nifedipine continued
#b/l chronic wounds
=wound care consulted.
#Gastroparesis
-Continue Protonix and Reglan
#Substance Abuse Disorder
-Continue buprenorphine
#Tobacco Use Disorder
-Encourage smoking cessation
-Offered nicotine patch which patient declined
DVT proph: SC Heparin
Code Status:Full Code
Total time spent on today's encounter was 55 minutes which included time spent in counseling the patient/family regarding diagnosis and treatment plan as listed above, goals of care, and symptom management. Case was discussed with nursing staff,
specialists, and care coordinators/case management. All labs and imaging personally reviewed by me. Remainder the time spent in detailed review of previous records, lab data, imaging, and other medical provider documentation.
Anticipated Discharge: Within 24 hours
Subjective/Interval History
-
Date of Service: July 26, 2025
Objective Data
-
Labs:
Laboratory Results
07/25/25 07/26/25 07/26/25
22:56 06:02 06:02
WBC 4.6 L
Hgb 12.0 L
Hct 38.8 L
Plt Count 167
Sodium 130 L 126 L
Potassium 4.8 D 6.9 H* D
Chloride 90 L 89 L
Carbon Dioxide 29 26
BUN 24 H 30 H
Creatinine 4.4 H* 5.3 H*
Glucose 204 H 496 H* Cancelled
Calcium 8.0 L 8.2 L
07/26/25 07/26/25
08:20 13:00
WBC
Hgb
Hct
Plt Count
Sodium 128 L Pending
Potassium 6.7 H* Pending
Chloride 91 L Pending
Carbon Dioxide 29 Pending
BUN 32 H
Creatinine 5.6 H*
Glucose 280 H
Calcium 8.4
Vital Signs:
Vital Signs
Temp Pulse Resp BP Pulse Ox
98.2 F 101 17 105/62 94
07/26/25 11:05 07/26/25 11:05 07/26/25 11:05 07/26/25 11:05 07/26/25 11:05
I&O
07/25/25 07/26/25 07/27/25
06:59 06:59 06:59
Intake Total 240 / 240
Balance 240 / 240
[2025-07-26 11:30] LABS: Glucose - Point of Care 306 mg/dl (70-99)
--- NOTE | 2025-07-26 11:56 | PN.DE.MGMTRT ---
Insulin Management
- -
07/26/2025: Diabetes Insulin Pump Management Consult:
Patient admitted 07/25 with vascular access problem - open wounds on and around site of AV fistula. Pt is well known to Diabetes team from recurrent hospitalizations due to DKA, last hospital admission: 05/27.
PMH: ETOH use disorder, recurrent DKA, ESRD on HD (MWF), T1DM for 18 years. Uses Medtronic 770 pump with NovoLog insulin and Guardian sensor, Quick Set infusion set.
Last A1C 8.1% Cr 5.3, eGFR 13.69 States he recently changed Endo offices and his 1st appt with his new Endo in [place] is in August.
Patient awake, alert and oriented, sitting up in bed, able to discuss diabetes mgt. Pt doing well, tolerating diet.
Currently on his insulin pump. Glucose range yesterday 75 to 175; fasting glucose today 282. Patient did administer a correction via pump.
Pump settings:
Basal carb ratio Correction Target
12am .25 10 50 120-140
4am .425 10 50 120-140
8am .35 10 50 120-140
Total 24 hr basal 8.3 units. Active insulin 5 hours. update A1C
Will continue insulin pump without changes to current settings.
Discussed with patient and nurse.
Will follow.
Diabetes History
- -
Type of Diabetes: 1
Pre-Admission Diabetes Regimen
07/25/25 07/25/25 07/26/25
15:34 22:56 06:02
Creatinine 8.4 H* 4.4 H* 5.3 H*
07/26/25
08:20
Creatinine 5.6 H*
Insulin Pump Settings
IP Diabetes Regimen
07/25/25 07/25/25 07/25/25
15:34 16:54 17:36
Glucose 278 H
POC Glucose 175 H 137 H
07/25/25 07/25/25 07/25/25
18:40 21:57 22:56
Glucose 204 H
POC Glucose 75 175 H
07/26/25 07/26/25 07/26/25
05:27 06:02 06:02
Glucose 496 H* Cancelled
POC Glucose 440 H
07/26/25 07/26/25 07/26/25
07:58 08:20 11:29
Glucose 280 H
POC Glucose 282 H 306 H
Patient Education
--- NOTE | 2025-07-26 12:42 | WOUNDNOTE ---
WO RN NOTE: Patient visited for LE wounds. Patient refused assessment and care of leg wounds. Dr. Castillo notified and consult cancelled. Marguerite ESPINOSA made aware.
[2025-07-26] MEDS: PT'S OWN INSULIN PUMP - NovoLOG 3.5 UNIT SC (12:56)
[2025-07-26 14:28] LABS: Carbon Dioxide 28 mmol/L (22-30); Chloride 89 mmol/L (98-107); Potassium 7.6 mmol/L (3.5-5.1); Sodium 124 mmol/L (135-145)
--- NOTE | 2025-07-26 14:45 | W.PN.UPDATE ---
Update Note
Progress Note Update
Patient refractory to Lokelma I am unsure why his potassium levels are rising so high
I will performed short 2-hour dialysis treatment on 1K bath
HD again tomorrow
--- NOTE | 2025-07-26 16:14 | W.PN.NEPH.HD ---
Assessment
-
Attempting dialysis with needles put at alternative positions away from wound sites
I am concerned with recurrent hyperkalemia that the fistula structure is compromised
I believe we should have vascular come back and possibly perform a fistulogram tomorrow if his hyperkalemia persist
Progress Note - Hemodialysis
-
Date of Service: July 26, 2025
Duration: 2 hours
Potassium Bath: 1
Opti-Dialyzer: 160
Ultrafiltration: Other (1kg)
Blood Flow: 400
Dialysate Flow: 600
Heparin: none
EPO: none
[2025-07-26 16:25] LABS: Glucose - Point of Care 317 mg/dl (70-99)
--- NOTE | 2025-07-26 18:00 | PTCARENOTE ---
Pt refused legs to be assessed during shift. Legs have been wrapped in a dressing from home. Pt also refused wound nurse to assess/treat legs during shift. made aware.
[2025-07-26] MEDS: BENADRYL 25 MG PO (20:02)
[2025-07-26 21:23] LABS: Glucose - Point of Care 308 mg/dl (70-99)
[2025-07-26] MEDS: NEURONTIN 100 MG PO (21:59)
[2025-07-27 03:21] VITALS: BP 108/64
[2025-07-27 05:06] LABS: Glucose - Point of Care 70 mg/dl (70-99)
--- NOTE | 2025-07-27 05:11 | PTCARENOTE ---
pt's insulin pump alarming BG 58, checked with hospital machine, BG 70. pt states he feels 'shakey' apple juice given.
[2025-07-27 05:15] VITALS: BMI 22.1
[2025-07-27 07:30] VITALS: BP 93/56
[2025-07-27] MEDS: SUBUTEX 4 MG SL (07:33)
--- NOTE | 2025-07-27 07:50 | PN.DE.MGMTRT ---
Insulin Management
- -
07/27/2025: Diabetes Insulin Pump Management Follow up:
Patient admitted 07/25 with vascular access problem - open wounds on and around site of AV fistula. Pt is well known to Diabetes team from recurrent hospitalizations due to DKA, last hospital admission: 05/27.
PMH: ETOH use disorder, recurrent DKA, ESRD on HD (MWF), T1DM for 18 years. Uses Medtronic 770 pump with NovoLog insulin and Guardian sensor, Quick Set infusion set.
Last A1C 8.1% Cr 5.3, eGFR 13.69 States he recently changed Endo offices and his 1st appt with his new Endo in [place] is in August.
Patient resting in bed, sleeping with eyes closed, on dialysis, refusing to answer questions or open eyes alert and oriented,
Currently on his insulin pump without malfunctions. Glucose range yesterday 282 to 317; fasting glucose today 70 POC.
Nurse reports that Patient is not administering correction insulin via pump.
Pump settings:
Basal carb ratio Correction Target
12am .25 10 50 120-140
4am .425 10 50 120-140
8am .35 10 50 120-140
Total 24 hr basal 8.3 units. Active insulin 5 hours. update A1C
Will continue insulin pump without changes to current settings.
Discussed with Nurse. Will cont to follow.
Diabetes History
- -
Type of Diabetes: 1
Pre-Admission Diabetes Regimen
07/26/25
08:20
Creatinine 5.6 H*
Insulin Pump Settings
IP Diabetes Regimen
07/26/25 07/26/25 07/26/25
07:58 08:20 11:29
Glucose 280 H
POC Glucose 282 H 306 H
07/26/25 07/26/25 07/27/25
16:24 21:20 05:03
Glucose
POC Glucose 317 H 308 H 70
Meal type: Dinner
Meal type: Lunch
Meal type: Breakfast
Amount consumed: 100%
Amount consumed: 100%
Amount consumed: 100%
Patient Education
[2025-07-27 08:03] LABS: Glucose - Point of Care 133 mg/dl (70-99)
[2025-07-27 08:23] LABS: Hematocrit 38.9 % (39.0-52.0); Hemoglobin 12.1 g/dL (13.0-18.0); Mean Corp Hgb Conc. 31.1 g/dL (33.0-37.0); Mean Corpuscular Volume 91.5 fL (80.0-94.0); Platelet Count 161 10^3/uL (130-400); Red Cell Dist. Width 18.0 % (11.5-14.5)
[2025-07-27] MEDS: PT'S OWN INSULIN PUMP - NovoLOG SC ×2 (08:44→11:50)
[2025-07-27] MEDS: PT'S OWN INSULIN PUMP - NovoLOG 1 UNIT SC (08:47)
[2025-07-27 09:15] LABS: Blood Urea Nitrogen 31 mg/dl (9-20); Calcium 8.7 mg/dl (8.4-10.2); Carbon Dioxide 30 mmol/L (22-30); Chloride 92 mmol/L (98-107); Estimated Creatinine Clearance 18 ml/min; Glucose 159 mg/dl (70-99); Potassium 5.2 mmol/L (3.5-5.1); Sodium 130 mmol/L (135-145); eGFR 13.69
[2025-07-27 09:54] LABS: Glucose - Point of Care 121 mg/dl (70-99)
--- NOTE | 2025-07-27 10:24 | W.PN.NEPH.HD ---
Assessment
-
Dialysis tolerating
Progress Note - Hemodialysis
-
Date of Service: July 27, 2025
Duration: 2 hours
Potassium Bath: 1
Opti-Dialyzer: 160
Ultrafiltration: Other (1kg)
Blood Flow: 400
Dialysate Flow: 600
Heparin: none
EPO: none
--- NOTE | 2025-07-27 11:13 | W.PN.HOSP.TC ---
Today's Communication/Plan
-
Discharge planning
Assessment / Plan
Assessment / Plan
Physical exam:
General: Chronically ill
HEENT: Normocephalic, Atraumatic and Moist Mucous Membranes
Respiratory: Clear to Auscultation; Negative Wheezes, Rales or Rhonchi
Cardiac: Regular Rhythm and S1/S2
GI: Soft, Nontender and Nondistended
Musculoskeletal: No Clubbing, No Cyanosis and No Edema
Skin: Multiple wounds on extremities
Neuro: Awake, Alert and Oriented, no neurodeficits
Psych: Calm
A/P:
# Acute hypoxia /fluid overload secondary to missed dialysis
- Nephrology consult appreciated
- Status post dialysis yesterday
- Nephrology planning repeat dialysis tomorrow
#Hyperkalemia
-Potassium down to 5.2 today and getting hemodialysis as well
-anode worker
- Continue to monitor follow-up potassium
# Fistula ulceration
- Vascular evaluated patient and as per their recommendations there are plenty of patient fistula proximal and distal to the area of skin ulceration that is usable.
#Diabetes Mellitus, Type I
-Continue Inuslin Pump
- Blood sugar 159 today
-Consult Diabetic PRINT PRODUCTION MANAGER appreciated for insulin recommendations and help manage insulin pump
# Hypertension emergency likely from fluid overload
- Continue to monitor
- nifedipine continued
#b/l chronic wounds
=wound care consulted.
#Gastroparesis
-Continue Protonix and Reglan
#Substance Abuse Disorder
-Continue buprenorphine
#Tobacco Use Disorder
-Encourage smoking cessation
-Offered nicotine patch which patient declined
DVT proph: SC Heparin
Code Status:Full Code
Time spent 35 minutes
Anticipated Discharge: Today
Subjective/Interval History
-
Date of Service: July 27, 2025
Seen at hemodialysis today. Potassium coming back down to his normal.
Objective Data
-
Labs:
Laboratory Results
07/27/25
07:30
WBC 4.7 L
Hgb 12.1 L
Hct 38.9 L
Plt Count 161
Sodium 130 L
Potassium 5.2 H D
Chloride 92 L
Carbon Dioxide 30
BUN 31 H
Creatinine 5.3 H*
Glucose 159 H
Calcium 8.7
Vital Signs:
Vital Signs
Temp Pulse Resp BP Pulse Ox
97.8 F 93 16 93/56 92
07/27/25 07:30 07/27/25 07:30 07/27/25 07:30 07/27/25 07:30 07/27/25 07:36
I&O
07/26/25 07/27/25 07/28/25
06:59 06:59 06:59
Intake Total 240 / 240 960 / 960
Balance 240 / 240 960 / 960
[2025-07-27 11:45] VITALS: BP 112/66
[2025-07-27] MEDS: PROTONIX 40 MG PO (11:47)
[2025-07-27] MEDS: PROCARDIA XL (EXTENDED RELEASE) 30 MG PO (11:48)
[2025-07-27] MEDS: HEPARIN SC (11:52)
--- NOTE | 2025-07-27 11:59 | W.DCSUMMARY ---
Discharge Summary
Discharge Data
Date of Admission: 07/25/25
Date of Discharge: 07/27/25
-
Pending Results: No
Hospital Course
Patient 35 years old male with multiple comorbidities some of which include diabetes mellitus type 1 on insulin pump, end-stage renal disease on hemodialysis, chronic pain, opiate dependent, came into the hospital due to ulcerations close to his AV
fistula and was not able to be dialyzed. Vascular surgery was consulted and evaluated the patient and felt that he was okay to be dialyzed and avoid ulceration site. They will continue to follow-up him as outpatient. Nephrology also was
consulted. He had dialysis while in the hospital. He also had significant hyperkalemia but after dialysis and Lokelma his potassium trended down appropriately. Patient also had significant hyperglycemia but with adjustment on his insulin pump his
glucose was able to be well-controlled. Patient otherwise is hemodynamically stable and feels back to his baseline. He is going to be discharged in relatively stable condition today.
Discharge duration: 35 minutes
Discharge Plan
-
Patient Disposition: Home (Routine Discharge)
Discharge Diagnosis/Procedures: End-stage renal disease on hemodialysis. Hyperkalemia. Fistula ulcerations. Diabetes mellitus type 1.
Diet: Diabetic, Carb Controlled
Activity: As tolerated
Blood Work: Please PCP to order CBC, BMP within 1 week
Referrals:
Kulwinder Vigil DO [Active, Nephrology] - in one to two weeks
Fabien Randhawa III, MD [Active, Vascular Surgery] - in one to two weeks
Casper Arroyo MD [Family Provider, Internal Medicine] - in less than 1 week
Prescriptions:
Continued
Patient Own Insulin Pump
0 units SC .VIA PUMP Qty: 0 0RF
Rx Instructions:
Novolog insulin via pump continuously
pantoprazole 40 mg tablet,delayed release (DR/EC)
40 mg PO DAILY
buprenorphine-naloxone 4-1 mg film
1 film sublingual TID
metoclopramide HCl [Reglan] 10 mg Tablet
5 mg PO Q8HPRN PRN (Reason: nausea) Qty: 0 0RF
gabapentin 100 mg Capsule
100 mg PO HS
acetaminophen 325 mg Tablet
650 mg PO Q4HPRN PRN (Reason: mild pain/ fever>100.5F) Qty: 1 0RF
nifedipine 30 mg Tablet Extended Release
30 mg PO BID
Discharge Orders:
Discharge Patient (As Directed); Ordered 07/27/25
Ordered By: Royer Castillo
Discharge Date and Time
Discharge Date/Time: 07/27/25 13:00
Print Language: GREENLANDIC
--- NOTE | 2025-07-27 12:06 | CM ---
Patient seen at bedside
IA completed
[facility]
HD today
Lives with parents in a 1 story home, 3 [address]
plof: Independent
Denies DME
Denies VN/rehab
declines vn
PCP: Nba Lopez
Pharmacy: [facility] [address], [place]
Plan; home with family, outpatient HD
[facility]
== END 2025-07-27 13:00 | disposition home or self-care (01) | DRG 640 ==
LOC: 3 WEST ACU 16:17
PROVIDERS: Registered Nurse; ADMITTING PHYSICIAN Hospitalist; ATTENDING PHYSICIAN Hospitalist; CONSULT PHYSICIAN Specialist; CONSULT PHYSICIAN Surgery Vascular Surgery; EMERGENCY PHYSICIAN Emergency Medicine; FAMILY PHYSICIAN Internal Medicine
PROC: 5A1D70Z Performance of Urinary Filtration, Intermittent, Less than 6 Hours Per Day (ICD-10-PCS; 2025-07-26)
DX: E87.70 Fluid overload, unspecified (principal); N18.6 End stage renal disease; I13.2 Hypertensive heart and chronic kidney disease with heart failure and with stage 5 chronic kidney disease, or end stage renal disease; I16.1 Hypertensive emergency; F11.20 Opioid dependence, uncomplicated; I50.32 Chronic diastolic (congestive) heart failure; E87.1 Hypo-osmolality and hyponatremia; L98.499 Non-pressure chronic ulcer of skin of other sites with unspecified severity; E87.5 Hyperkalemia; E10.22 Type 1 diabetes mellitus with diabetic chronic kidney disease; E10.65 Type 1 diabetes mellitus with hyperglycemia; Z99.2 Dependence on renal dialysis; Z79.899 Other long term (current) drug therapy; Z79.4 Long term (current) use of insulin; Z96.41 Presence of insulin pump (external) (internal); D64.9 Anemia, unspecified; F17.210 Nicotine dependence, cigarettes, uncomplicated; F41.9 Anxiety disorder, unspecified; G89.29 Other chronic pain; I27.20 Pulmonary hypertension, unspecified; K31.84 Gastroparesis
CPT/HCPCS: 71046; 80048; 80051; 82962; 83735; 84100; 85027; 93005; 94640; 96374; 96375; 99285; G0257

== ENCOUNTER 2025-10-31 12:34 | Outpatient (REF) | payer OTHER, SELFPAY | END 2025-10-31 23:59 | disposition home or self-care (01) | LOC: WOUND 12:34 | PROVIDERS: ATTENDING PHYSICIAN Registered Nurse | DX: L97.422 Non-pressure chronic ulcer of left heel and midfoot with fat layer exposed (principal); L97.211 Non-pressure chronic ulcer of right calf limited to breakdown of skin; L97.221 Non-pressure chronic ulcer of left calf limited to breakdown of skin; L97.522 Non-pressure chronic ulcer of other part of left foot with fat layer exposed; E10.69 Type 1 diabetes mellitus with other specified complication; N18.6 End stage renal disease; Z99.2 Dependence on renal dialysis; F17.200 Nicotine dependence, unspecified, uncomplicated; F19.90 Other psychoactive substance use, unspecified, uncomplicated | CPT/HCPCS: 97597; 99204 ==